=== PATIENT | male | born 1965 | race Two or more races ===

== ENCOUNTER 2020-05-13 13:41 | Emergency (ER) | payer MEDICAID, SELFPAY ==
[2020-05-13 14:25] VITALS: BP 127/75; BP 127/82; PULSE 73; PULSE 75; RESP 18; TEMP 37.2; O2SAT 97; BMI 22.4
--- NOTE | 2020-05-13 15:06 | ECG_ITS ---
Test Reason : CHEST PAIN, SHORTNESS OF BREATH Blood Pressure : / mmHG Vent. Rate : 063 BPM Atrial Rate : 063 BPM P-R Int : 152 ms QRS Dur : 096 ms QT Int : 392 ms P-R-T Axes : 078 051 076 degrees QTc Int : 401 ms Normal sinus rhythm with sinus arrhythmia Incomplete right bundle branch block Borderline ECG When compared with ECG of 13-MAR-2020 13:52, Vent. rate has decreased BY 35 BPM Referred By: Andra Bowie Electronically Signed By:JIE MCDANIELS MD
--- NOTE | 2020-05-13 15:07 | XR_ITS ---
EXAMINATION: XR CHEST CLINICAL INFORMATION: Chest pain. SOB COMPARISON: Chest 11/17/2019 TECHNIQUE: Frontal view of the chest was obtained. FINDINGS: No significant abnormality is noted involving the heart, lungs, mediastinum, bony thorax or soft tissues. XR/XR chest 1V IMPRESSION: Unremarkable chest examination.
[2020-05-13] MEDS: Acetaminophen 325 MG TABLET 650 MG PO (15:47)
[2020-05-13] MEDS: Ketorolac Tromethamine 15 MG/ML VIAL IVPUSH (15:48)
[2020-05-13] MEDS: ondansetron HCL 4 MG/2 ML VIAL IVPUSH (15:48)
--- NOTE | 2020-05-13 15:54 | ED.GENADULT ---
HPI - General Adult General Chief complaint: General Medical Stated complaint: flu like symptoms Time Seen by Provider: 05/13/20 14:39 Source: patient Mode of arrival: ambulatory History of Present Illness HPI narrative: 55-year-old male with a past medical history of anxiety, asthma, depression presenting to ED complaining of subjective fever, chills, sore throat, dry cough, mild SOB, chest discomfort, diffuse myalgias, and nausea since yesterday. Reports multiple sick contacts where he lives. Denies recent travel, history of clots, LE edema Related Data Allergies Allergy/AdvReac Type Severity Reaction Status Date / Time penicillin V Allergy Unknown rash Verified 12/20/19 00:00 ibuprofen Allergy Stomach Verified 05/13/20 14:24 Upset Review of Systems Review of Systems: Constitutional: No Weight loss, +subj Fever, + Chills ENT/Mouth: No Ear Pain, + Nasal Congestion, No Sinus Pain, No Hoarseness, +sore throat, +Rhinorrhea, No Swallowing Difficulty Cardiovascular: + Chest Pain, + SOB Respiratory: + Cough, No Sputum, No Wheezing Gastrointestinal: + Nausea, No Vomiting, No Diarrhea, No Constipation, No Abdominal pain Skin: No Skin Lesions, No rash Yes all other systems are reviewed and are negative PMFSH Past Medical History Attestation statement: The following information was validated with the patient. Medical History (Updated 05/13/20 @ 16:01 by SANTOSH England) Anxiety Asthma Depression Surgical History (Updated 05/13/20 @ 14:29 by Karina Moreno) Hx of cholecystectomy Social History Social History Alcohol intake: never Smoking Status: Current every day smoker Smoked in Last 30 Days: Yes Use of substances other than those prescribed or required for medical reasons: Yes Substance Use Type: Crack/Cocaine and Marijuana Substance Use Frequency: Occasionally Advance Directives: No Advance Directives Information Provided: Yes Physical Exam Vital Signs: Vital Signs: Vital Signs Temp Pulse Resp BP Pulse Ox 05/13/20 14:25 99.0 F 73 18 127/75 97 Body Mass Index 22.4 Const: General: cooperative and healthy appearing Orientation/consciousness: patient oriented x3 Limitations: no limitations HENMT: Head: Yes normal to inspection Ears: hearing grossly normal bilaterally General nose exam: Normal external nose present Face and sinus: Yes normal facial exam Eyes: General: appearance normal, both eyes and all related structures EOM: EOMs intact bilaterally Neck: Neck: Yes normal visual inspection Resp: Effort & Inspection: normal respiratory effort Auscultation: no rhonchi and diminished lung sounds diffuse Cardio: Rate: regular rate Heart sounds: S1 normal heart sound present and S2 normal heart sound present GI: Inspection: Yes normal to inspection Palpation (GI): Soft to palpation, nontender, no guarding and not rigid Skin: Rashes: no rashes Wounds: no wounds Neuro: General: patient oriented x3 Gait exam (Neuro): Normal gait present Extrem: General: Yes normal to inspection Course Course Course Narrative: - CXR unremarkable -1600-- ED care transferred to [facility] pending labs Medical Decision Making MDM Narrative Medical decision making narrative: 55-year-old male with a past medical history of anxiety, asthma, depression presenting to ED complaining of subjective fever, chills, sore throat, dry cough, mild SOB, chest discomfort, diffuse myalgias, and nausea since yesterday. On exam low-grade temp 99?, NAD/ nontoxic-appearing, decreased lung sounds throughout. plan: labs, CXR, COVID-19, reassess, anticipate DC home Discharge Plan Discharge Clinical Impression: Viral syndrome Patient Disposition: Home, Self-Care
[2020-05-13 16:23] LABS: MANUAL DIFF FLAG NO
[2020-05-13 16:28] LABS: Basophils Percent Auto 0.7 % (0-2); Eosinophils Absolute Auto 0.2 X10*3/uL (0.0-0.4); Eosinophils Percent Auto 4.2 % (0-4); Hematocrit 36.5 % (42-52); Hemoglobin 12.1 g/dl (14.0-18.0); Lymphocytes Absolute Auto 2.5 X10*3/uL (1.2-4.9); Mean Corpuscular HGB Conc 33.2 g/dl (31.0-36.0); Mean Corpuscular Hemoglobin 30.6 pg (27.0-33.0); Mean Corpuscular Volume 92.2 fL (80-98); Mean Platelet Volume 8.9 fL (9.4-12.4); Monocytes Absolute Auto 0.4 X10*3/uL (0.1-1.2); Monocytes Percent Auto 7.3 % (2-11); Neutrophils Absolute Auto 2.4 X10*3/uL (2.0-8.3); Neutrophils Percent Auto 42.8 % (45-73); Platelet Count 330 X10*3/uL (160-400); Red Blood Count 3.96 X10*6/uL (4.60-5.80); Red Cell Distribution Width 13.5 % (11.0-16.0); White Blood Count 5.5 X10*3/uL (4.8-10.8)
[2020-05-13 16:53] VITALS: BP 128/76; PULSE 71; RESP 18; TEMP 36.8; O2SAT 97
--- NOTE | 2020-05-13 16:54 | ED_ITS ---
HPI - URI/Sore Throat General Chief Complaint: General Medical Stated Complaint: flu like symptoms Time Seen by Provider: 05/13/20 14:39 Source: patient Mode of arrival: ambulatory History of Present Illness HPI Narrative: taking over for Andra Yancey PA-C Related Data Allergies Allergy/AdvReac Type Severity Reaction Status Date / Time penicillin V Allergy Unknown rash Verified 12/20/19 00:00 ibuprofen Allergy Stomach Verified 05/13/20 14:24 Upset PMFSH Past Medical History Medical History (Updated 05/13/20 @ 16:01 by SANTOSH England) Anxiety Asthma Depression Surgical History (Updated 05/13/20 @ 14:29 by Karina Moreno) Hx of cholecystectomy Social History Social History Alcohol intake: never Smoking Status: Current every day smoker Smoked in Last 30 Days: Yes Use of substances other than those prescribed or required for medical reasons: Yes Substance Use Type: Crack/Cocaine and Marijuana Substance Use Frequency: Occasionally Advance Directives: No Advance Directives Information Provided: Yes Physical Exam Vital Signs: Vital Signs: Vital Signs Temp Pulse Resp BP Pulse Ox 05/13/20 16:53 98.3 F 71 18 128/76 97 05/13/20 14:25 99.0 F 73 18 127/75 97 Body Mass Index 22.4 Course Course Course Narrative: Medical decision making narrative: 55-year-old male with a past medical history of anxiety, asthma, depression presenting to ED complaining of subjective fever, chills, sore throat, dry cough, mild SOB, chest discomfort, diffuse myalgias, and nausea since yesterday. On exam low-grade temp 99?, NAD/ nontoxic-appearing, decreased lung sounds throughout. plan: labs, CXR, COVID-19, reassess, anticipate DC home. 5pm no leukocytosis, negative D-dimer, labs unremarkable. Patient is asking for pain medication for his knees which is not the reason he is here and I did not do an exam on his knees so I declined his request and advised he go to his PCP. Will discharge home with lamar. MDM - URI/Sore Throat Lab Data Attestation: I reviewed the patient's lab results. Result diagrams: 05/13/20 16:19 05/13/20 16:19 Labs: Lab Results 05/13/20 Range/Units 16:19 WBC 5.5 (4.8-10.8) X10*3/uL RBC 3.96 L (4.60-5.80) X10*6/uL Hgb 12.1 L (14.0-18.0) g/dl Hct 36.5 L (42-52) % MCV 92.2 (80-98) fL MCH 30.6 (27.0-33.0) pg MCHC 33.2 (31.0-36.0) g/dl RDW 13.5 (11.0-16.0) % Plt Count 330 (160-400) X10*3/uL MPV 8.9 L (9.4-12.4) fL Immature Gran % (Auto) 0.0 (0.0-0.4) % Neut % (Auto) 42.8 L (45-73) % Lymph % (Auto) 45.0 H (20-40) % [place] % (Auto) 7.3 (2-11) % Eos % (Auto) 4.2 H (0-4) % Baso % (Auto) 0.7 (0-2) % Lymph # (Auto) 2.5 (1.2-4.9) X10*3/uL [place] # (Auto) 0.4 (0.1-1.2) X10*3/uL Eos # (Auto) 0.2 (0.0-0.4) X10*3/uL Baso # (Auto) 0.0 (0.0-0.2) X10*3/uL Abs Immat Gran (auto) 0.00 (0.00-0.03) X10*3/uL Absolute Neuts (auto) 2.4 (2.0-8.3) X10*3/uL Absolute Nucleated RBC 0.000 (0.0-0.012) X10*3/uL Nucleated RBC % (auto) 0.0 (0.0-0.2) /100WBC Discharge Plan Discharge Clinical Impression: Viral syndrome Patient Disposition: Home, Self-Care Instructions: Viral Syndrome (ED)
[2020-05-13 16:56] LABS: Magnesium 2.2 mg/dL (1.6-2.6)
[2020-05-13 16:58] LABS: Lactate Dehydrogenase 136 U/L (118-273)
[2020-05-13 16:59] LABS: Alanine Aminotransferase 11 U/L (0-40); Albumin Level 4.1 g/dL (3.5-5.0); Alkaline Phosphatase 69 U/L (39-117); Anion Gap 11 (12-20); Aspartate Amino Transferase 18 U/L (5-37); Bilirubin Direct 0.2 mg/dL (0.0-0.5); Bilirubin Total 0.4 mg/dL (0.0-1.0); Blood Urea Nitrogen 9 mg/dL (9-16); Calcium 8.8 mg/dL (8.4-10.2); Carbon Dioxide 27 mmol/L (22-29); Chloride 104 mmol/L (96-108); Creatinine Clr Calc Pharmacy 74.1; Estimated Glomerular Filt Rate > 60; Glucose Random 82 mg/dL (60-115); Potassium 4.1 mmol/l (3.3-5.1); Sodium 138 mmol/L (135-145); Total Protein 6.9 g/dL (6.5-8.0)
[2020-05-13 17:01] LABS: B Type Natriuretic Peptide 16 pg/mL (<100); Troponin-I High Sensitivity < 3.5 ng/L (<3.5-35.0)
[2020-05-13 17:19] LABS: Ferritin 70 ng/mL (20-250)
[2020-05-13 18:19] LABS: Procalcitonin < 0.02 ng/mL
== END 2020-05-13 17:23 | disposition home or self-care (01) ==
PROVIDERS: Physician Assistant; Emergency Provider Emergency Medicine; PCP Internal Medicine
DX: B34.9 Viral infection, unspecified (principal); R50.9 Fever, unspecified; Z20.828 Contact with and (suspected) exposure to other viral communicable diseases; Z79.899 Other long term (current) drug therapy
CPT/HCPCS: 36415; 71045; 80048; 80076; 82728; 83615; 83735; 83880; 84145; 84484; 85025; 87635; 93005; 96374; 96375; 99284; J1885; J2405

== ENCOUNTER 2021-01-06 13:07 | Outpatient (REF) | payer MEDICAID, SELFPAY ==
--- NOTE | ~2021-01-06 | CT_ITS ---
EXAMINATION: CT HEAD WITHOUT CONTRAST CLINICAL INFORMATION: Headache COMPARISON: None TECHNIQUE: Contiguous axial imaging was performed from the skull base to vertex without intravenous administration of contrast. This CT examination was performed using dose optimization techniques as appropriate, variously including the following: *Automated exposure control *Adjustment of mA and/or kV according to patient size (this includes techniques or standardized protocols for targeted exams where dose is matched to indication/reason for exam; i.e. extremities or head) *Use of iterative reconstruction technique DLP: 657 mGy-cm FINDINGS: There is no evidence of acute intracranial hemorrhage or territorial infarction. No abnormal mass effect or midline shift is seen. Hood to white matter differentiation is well preserved. No extra-axial fluid collections are identified. The ventricles are normal in size. There is no abnormal attenuation within the brain parenchyma. The osseous structures and soft tissues are normal. The mastoid air cells and visualized portions of the paranasal sinuses are well aerated except for a small polyp or retention cyst bilateral sphenoid and right posterior ethmoid sinuses. CT/CT head/brain wo con IMPRESSION: 1. No acute intracranial process seen. 2. Small polyp or retention cyst, bilateral sphenoid and right posterior ethmoid sinuses.
== END 2021-01-06 13:08 | disposition home or self-care (01) ==
LOC: HO.CT 13:07
PROVIDERS: Visit Provider Internal Medicine
DX: R51.9 Headache, unspecified (principal)
CPT/HCPCS: 70450

== ENCOUNTER 2021-04-21 14:51 | Emergency (ER) | payer MEDICAID, SELFPAY ==
--- NOTE | ~2021-04-21 | XR_ITS ---
EXAMINATION: XR CHEST CLINICAL INFORMATION: Chest pain COMPARISON: Chest radiographs 05/13/2020, 11/17/2019, CT chest 06/12/2019 TECHNIQUE: 2 frontal views of the chest are obtained. FINDINGS: There is disc atelectasis right lateral base. The lungs otherwise clear. There is no pneumothorax, pleural reaction, airspace consolidation, or effusion. The heart is normal in size. The hilar contours are normal. There is a small chronic small fat-containing Bochdalek hernia left posterior medial base. No visible acute bony abnormality. Old healed fracture mid right clavicle again seen. XR/XR chest 1V IMPRESSION: 1. Short linear disc atelectasis right lateral base. Lungs otherwise clear. No pneumothorax. 2. Small chronic fat-containing Bochdalek hernia left posterior medial base similar to CT 2019.
[2021-04-21 16:15] VITALS: BP 135/78; PULSE 90; RESP 20; TEMP 36.6; O2SAT 98; BMI 26.2
--- NOTE | 2021-04-21 16:19 | ECG_ITS ---
Test Reason : CHEST PAIN Blood Pressure : / mmHG Vent. Rate : 083 BPM Atrial Rate : 083 BPM P-R Int : 152 ms QRS Dur : 104 ms QT Int : 368 ms P-R-T Axes : 077 029 078 degrees QTc Int : 432 ms Normal sinus rhythm Incomplete right bundle branch block Borderline ECG When compared with ECG of 13-MAY-2020 15:32, No significant change was found Referred By: Generic ED Physician Electronically Signed By:HERSON GARZON
[2021-04-21 16:45] LABS: MANUAL DIFF FLAG NO
[2021-04-21 16:46] LABS: Basophils Percent Auto 0.5 % (0-2); Eosinophils Absolute Auto 0.2 X10*3/uL (0.0-0.4); Eosinophils Percent Auto 2.7 % (0-4); Hematocrit 34.7 % (42-52); Hemoglobin 11.6 g/dl (14.0-18.0); Imm Gran Abs Auto 0.03 X10*3/uL (0.00-0.03); Imm Gran Pct Auto 0.4 % (0.0-0.4); Lymphocytes Absolute Auto 1.9 X10*3/uL (1.2-4.9); Lymphocytes Percent Auto 25.4 % (20-40); Mean Corpuscular HGB Conc 33.4 g/dl (31.0-36.0); Mean Corpuscular Hemoglobin 28.9 pg (27.0-33.0); Mean Corpuscular Volume 86.5 fL (80-98); Monocytes Absolute Auto 0.5 X10*3/uL (0.1-1.2); Monocytes Percent Auto 6.2 % (2-11); Neutrophils Absolute Auto 4.8 X10*3/uL (2.0-8.3); Neutrophils Percent Auto 64.8 % (45-73); Platelet Count 321 X10*3/uL (160-400); Red Blood Count 4.01 X10*6/uL (4.60-5.80); Red Cell Distribution Width 14.6 % (11.0-16.0); White Blood Count 7.4 X10*3/uL (4.8-10.8)
[2021-04-21 17:01] LABS: Anion Gap 10 (12-20); Blood Urea Nitrogen 9 mg/dL (9-16); COVID-19 Test Negative (Negative); Carbon Dioxide 25 mmol/L (22-29); Chloride 106 mmol/L (96-108); Creatinine Clr Calc Pharmacy 86.3; Estimated Glomerular Filt Rate > 60; Glucose Random 108 mg/dL (60-115); Potassium 3.8 mmol/L (3.3-5.1); Sodium 137 mmol/L (135-145)
[2021-04-21 17:04] LABS: Troponin-I High Sensitivity < 3.5 ng/L (<3.5-35.0)
[2021-04-21 21:41] VITALS: BP 138/85; PULSE 61; RESP 16; O2SAT 97
--- NOTE | 2021-04-21 22:39 | ED.CHESTPAIN ---
HPI - Chest Pain General Chief Complaint: Chest Pain Stated Complaint: chest pain l arm pain headache Time Seen by Provider: 04/21/21 22:20 Source: patient and family History of Present Illness HPI narrative: 55-year-old male who presents emergency department for evaluation chest pain, left arm pain and headache. Patient states that he has had a headache for 2 days, it has, on gradually. States that the headache is a sharp pain located in the left side of his head. He is also complaining of left shoulder left chest and left arm pain. This pain is also come on gradually over the past 2 days. This pain is a sharp pain which is worse with movement. He states that his headache pain and chest pain is 10/10 at its worst. Patient has had a occasional cough which is nonproductive. He does have COPD and has shortness of breath and dyspnea on exertion which is unchanged from his baseline. The patient denied fever, chills, abdominal pain, nausea, vomiting, myalgias, arthralgias, diarrhea, loss of sense of taste or smell. Patient has been vaccinated against COVID-19. Related Data Previous Rx's Medication Instructions Recorded azithromycin 500 mg tablet See Rx Instructions .ROUTE 05/13/20 .COMPLEX #6 tab metoclopramide HCl 10 mg tablet 10 mg PO Q6H PRN #14 tab 04/21/21 (Reglan) oxycodone 5 mg tablet 5 mg PO Q4H PRN #14 tab 04/21/21 Allergies Allergy/AdvReac Type Severity Reaction Status Date / Time penicillin V Allergy Unknown rash Verified 12/20/19 00:00 ibuprofen Allergy Stomach Verified 05/13/20 14:24 Upset Review of Systems Review of Systems: Yes all other systems are reviewed and are negative [facility] Past Medical History [facility] Narrative: Past medical history: Asthma, COPD, depression, anxiety, osteoarthritis, migraines. Surgical history: Appendectomy, cholecystectomy. Social history: Patient denies drug use. He does smoke cigarettes times 14 years less than 1 pack. He denies alcohol use. He is he is here with his Medical History Anxiety Asthma Depression Surgical History Hx of cholecystectomy Social History Social History Alcohol intake: never Substance Use Type: Crack/Cocaine and Marijuana Advance Directives: No Advance Directives Information Provided: No Physical Exam Vital Signs: Vital Signs: Last Vital Signs Temp 97.9 F 04/21/21 16:15 Pulse 61 04/21/21 21:41 Resp 16 04/21/21 21:41 BP 138/85 04/21/21 21:41 Pulse Ox 97 04/21/21 21:41 Body Mass Index 26.2 Const: General: cooperative and no acute distress Orientation/consciousness: oriented to person and oriented to place Limitations: no limitations HENMT: Head: Yes normal to inspection, Yes normocephalic and Yes atraumatic Ears: external ears normal General nose exam: Normal external nose present Face and sinus: Yes normal facial exam Mouth: Normal oral and palatal mucosa present Throat: Yes posterior oropharynx normal Eyes: General: appearance normal, both eyes and all related structures Pupils: Equal, round and reactive pupils present Neck: Neck: Yes normal visual inspection, Yes no lymphadenopathy, Yes trachea midline and Yes supple Chest: Chest palpation & inspection: normal inspection of the chest and tenderness (Moderate to severe left anterior chest wall tenderness) Resp: Effort & Inspection: normal respiratory effort and able to speak in complete sentences Auscultation: clear to auscultation bilaterally Cardio: Rate: regular rate Rhythm: regular rhythm Heart sounds: S1 normal heart sound present, S2 normal heart sound present and no murmurs GI: Inspection: Yes normal to inspection Palpation (GI): Soft to palpation, nontender and no guarding Auscultation: normal bowel sounds : General: Yes no CVA tenderness Back/Spine/Pelvis: Back: no CVA tenderness Skin: General skin exam: no rashes or lesions noted Neuro: General: oriented to person and oriented to place Cranial nerves: Yes CN's II-XII intact bilaterally and Yes Equal, round and reactive pupils present Cognition (Neuro): normal cognition Motor exam (neuro): 5/5 motor strength present throughout Extrem: Other: Significant pain with range of motion of the left shoulder both passive and active. General: Yes normal to inspection Psych: Appearance: grossly normal Speech and movement: Normal speech and movement present Affect: normal affect Attitude: cooperative Thought process: Normal thought process present Thought content: Normal thought content present Course Course Course Narrative: 55-year-old male who presents emergency department for evaluation of chest pain, left arm pain and headache x2 days. Physical examination did reveal significant tenderness palpation of his left anterior chest wall and pain with passive and active range of motion of his left shoulder. Exam was otherwise unremarkable. Patient's laboratory evaluation revealed mild anemia with an H&H of 11.6 and 34.7. Troponin was below detectable limits. Twelve EKG revealed no evidence of ischemia or myocardial infarction. The patient's pain was treated with Reglan and 10 mg IV, Toradol 30 mg IV and Benadryl 50 mg IV with some improved his pain. The patient was also given oxycodone 10 mg orally. The patient will be discharged home. He was advised to take the following regimen of medications for his headache and chest pain: Reglan 10 mg orally, Benadryl 50 mg orally and extra-strength Tylenol 975 mg orally. For pain not relieved by these medications also advised to take oxycodone 5 mg every 4 hours as needed for pain. MDM - Chest Pain Lab Data Result diagrams: 04/21/21 16:26 04/21/21 16:26 Labs: Lab Results 04/21/21 04/21/21 04/21/21 Range/Units 16:26 16:26 16:26 WBC 7.4 (4.8-10.8) X10*3/uL RBC 4.01 L (4.60-5.80) X10*6/uL Hgb 11.6 L (14.0-18.0) g/dl Hct 34.7 L (42-52) % MCV 86.5 (80-98) fL MCH 28.9 (27.0-33.0) pg MCHC 33.4 (31.0-36.0) g/dl RDW 14.6 (11.0-16.0) % Plt Count 321 (160-400) X10*3/uL MPV 9.0 L (9.4-12.4) fL Immature Gran % (Auto) 0.4 (0.0-0.4) % Neut % (Auto) 64.8 (45-73) % Lymph % (Auto) 25.4 (20-40) % [place] % (Auto) 6.2 (2-11) % Eos % (Auto) 2.7 (0-4) % Baso % (Auto) 0.5 (0-2) % Lymph # (Auto) 1.9 (1.2-4.9) X10*3/uL [place] # (Auto) 0.5 (0.1-1.2) X10*3/uL Eos # (Auto) 0.2 (0.0-0.4) X10*3/uL Baso # (Auto) 0.0 (0.0-0.2) X10*3/uL Abs Immat Gran (auto) 0.03 (0.00-0.03) X10*3/uL Absolute Neuts (auto) 4.8 (2.0-8.3) X10*3/uL Absolute Nucleated RBC 0.000 (0.0-0.012) X10*3/uL Nucleated RBC % (auto) 0.0 (0.0-0.2) /100WBC Sodium 137 (135-145) mmol/L Potassium 3.8 (3.3-5.1) mmol/L Chloride 106 (96-108) mmol/L Carbon Dioxide 25 (22-29) mmol/L Anion Gap 10 L (12-20) BUN 9 (9-16) mg/dL Creatinine 0.79 (0.5-1.4) mg/dL Estim Creat Clear Calc 86.3 Estimated GFR > 60 Random Glucose 108 (60-115) mg/dL Calcium 9.0 (8.4-10.2) mg/dL Troponin I High Sens < 3.5 (<3.5-35.0) ng/L COVID-19 ([facility]) (Negative) COVID-19 Clin Com 04/21/21 Range/Units 16:26 WBC (4.8-10.8) X10*3/uL RBC (4.60-5.80) X10*6/uL Hgb (14.0-18.0) g/dl Hct (42-52) % MCV (80-98) fL MCH (27.0-33.0) pg MCHC (31.0-36.0) g/dl RDW (11.0-16.0) % Plt Count (160-400) X10*3/uL MPV (9.4-12.4) fL Immature Gran % (Auto) (0.0-0.4) % Neut % (Auto) (45-73) % Lymph % (Auto) (20-40) % [place] % (Auto) (2-11) % Eos % (Auto) (0-4) % Baso % (Auto) (0-2) % Lymph # (Auto) (1.2-4.9) X10*3/uL [place] # (Auto) (0.1-1.2) X10*3/uL Eos # (Auto) (0.0-0.4) X10*3/uL Baso # (Auto) (0.0-0.2) X10*3/uL Abs Immat Gran (auto) (0.00-0.03) X10*3/uL Absolute Neuts (auto) (2.0-8.3) X10*3/uL Absolute Nucleated RBC (0.0-0.012) X10*3/uL Nucleated RBC % (auto) (0.0-0.2) /100WBC Sodium (135-145) mmol/L Potassium (3.3-5.1) mmol/L Chloride (96-108) mmol/L Carbon Dioxide (22-29) mmol/L Anion Gap (12-20) BUN (9-16) mg/dL Creatinine (0.5-1.4) mg/dL Estim Creat Clear Calc Estimated GFR Random Glucose (60-115) mg/dL Calcium (8.4-10.2) mg/dL Troponin I High Sens (<3.5-35.0) ng/L COVID-19 ([facility]) Negative (Negative) COVID-19 Clin Com See Note Discharge Plan Discharge Clinical Impression: Acute costochondritis, Acute pain of left shoulder Headache Qualifiers: Headache type: unspecified Headache chronicity pattern: acute headache Intractability: not intractable Qualified Code(s): R51.9 - Headache, unspecified Patient Disposition: Home, Self-Care Instructions: Costochondritis (ED), Acute Headache (ED) Additional Instructions: Your laboratory evaluation revealed mild anemia with an H&H of 11.6 and 34.7, this is chronic and does not need treatment at this time. The rest of your blood work was normal. Your COVID-19 test was negative. Your exam did reveal significant tenderness with palpation of your chest and left shoulder with increased pain with movement of your left shoulder. I think that these symptoms are caused by inflammation of your chest in your shoulder. Take the following medications together every 6 hours as needed for headache, chest and shoulder pain: Reglan 10 mg orally, Benadryl 50 mg orally and extra-strength Tylenol 1000 mg. If your pain is not relieved by these medications you can also take oxycodone 5 mg every 4 hours as needed for pain. Oxycodone is a narcotic medication and can be addicting, if your concerned about addiction do not get this medication filled or ask the pharmacist for less pills than prescribed. This pain will make you sleepy, constipated and sometimes confused. Follow-up with your doctor in 2 days. Please return to the emergency department if your symptoms get worse or if you develop any symptoms that are concerning to you. Prescriptions: New metoclopramide HCl [Reglan] 10 mg tablet 10 mg PO Q6H PRN (Reason: nausea and vomiting) Qty: 14 RF: 0 oxycodone 5 mg tablet 5 mg PO Q4H PRN (Reason: pain) Qty: 14 RF: 0 No Action azithromycin 500 mg tablet See Rx Instructions .ROUTE .COMPLEX Qty: 6 RF: 0
[2021-04-21] MEDS: Ketorolac Tromethamine 15 MG/ML VIAL 30 MG IVPUSH (22:50)
[2021-04-21] MEDS: 0.9 % Sodium Chloride 1,000 ML 999 ML IV (22:50)
[2021-04-21] MEDS: diphenhydrAMINE HCL 50 MG/ML VIAL IVPUSH (22:51)
[2021-04-21] MEDS: Metoclopramide HCl 10 MG/2 ML VIAL IVPUSH (22:51)
[2021-04-21] MEDS: oxyCODONE HCl Immed Release 5 MG TABLET 10 MG PO (23:50)
[2021-04-21 23:54] VITALS: RESP 20
== END 2021-04-21 23:55 | disposition home or self-care (01) ==
PROVIDERS: Emergency Provider Emergency Medicine Emergency Medical Services; PCP Internal Medicine
DX: M94.0 Chondrocostal junction syndrome [Tietze] (principal); M25.512 Pain in left shoulder; R51.9 Headache, unspecified; J44.9 Chronic obstructive pulmonary disease, unspecified; F17.210 Nicotine dependence, cigarettes, uncomplicated; Z20.822 Contact with and (suspected) exposure to COVID-19
CPT/HCPCS: 36415; 71045; 80048; 84484; 85025; 87635; 93005; 96361; 96374; 96375; 99284; 99285; J1200; J1885; J2765

== ENCOUNTER 2021-05-14 14:49 | Emergency (ER) | payer MEDICAID, SELFPAY ==
--- NOTE | ~2021-05-14 | XR_ITS ---
EXAMINATION: XR CHEST CLINICAL INFORMATION: Shortness of breath COMPARISON: Previous chest x-ray most recent 04/21/2021 TECHNIQUE: Frontal view of the chest was obtained. FINDINGS: The cardiac and mediastinal contours are normal. The lungs are clear. There is no pleural effusion or pneumothorax. There is an old healed right clavicle fracture. Bony structures are otherwise unremarkable. XR/XR chest 1V IMPRESSION: No evidence for acute disease in the chest.
--- NOTE | 2021-05-14 15:05 | ED_ITS ---
HPI - General Adult General Chief complaint: General Medical Stated complaint: headache, sob, nausea Time Seen by Provider: 05/14/21 14:58 Source: patient Mode of arrival: EMS Limitations: no limitations History of Present Illness HPI narrative: 55-year-old male with a past medical history of anxiety, asthma, depression, COPD presents to the emergency department with a meadley of complaints including abdominal pain, malaise, CP, SOB, Cough, headache X 3 days progressively worsening. He says his main 2 complaints are his chest pain, and headache. He states that his abdominal pain is worsened epigastric region, and has been progressively getting worse. He states his chest pain is substernal, intermittent, described as a stabbing sensation, 10/10 pain, free of radiation. He also states he has been having increased shortness of breath, nonproductive cough. He also reports subjective fevers at home. He also complains of a headache localized to the back of his head. He denies nausea, vomiting, diarrhea, constipation, changes in vision, back pain, changes in bowel habits and urination. He is vaccinated against COVID-19. He is a current daily smoker, he smokes 4 cigarettes a day, and has been smoking for years. Onset (ago): day(s) (3) Location: chest Radiation: non-radiation Severity: severe Severity scale (1-10): 10 Quality: stabbing Pain Consistency: intermittent Relieving factors: none Exacerbating factors: none Associated symptoms: chest pain, cough, fever/chills, malaise, shortness of breath and weakness Treatments prior to arrival: none Related Data Previous Rx's Medication Instructions Recorded azithromycin 500 mg tablet See Rx Instructions .ROUTE 05/13/20 .COMPLEX #6 tab metoclopramide HCl 10 mg tablet 10 mg PO Q6H PRN #14 tab 04/21/21 (Reglan) oxycodone 5 mg tablet 5 mg PO Q4H PRN #14 tab 04/21/21 Allergies Allergy/AdvReac Type Severity Reaction Status Date / Time ibuprofen Allergy Intermediate Stomach Verified 05/14/21 15:14 Upset penicillin V Allergy Intermediate rash Verified 05/14/21 15:14 Review of Systems Review of Systems: Yes all other systems are reviewed and are negative Constitutional: Constitutional: Reports no additional constitutional complain ts, Reports body ache(s), Reports chills, Reports fever(s) (subjective), Reports headache(s) and Reports weakness Eyes: Eyes: Reports no additional eye complaints and Denies change in vision ENT: Reports system reviewed and no additional complaints, except as documented, Denies dizziness, Reports headache(s), Denies nasal congestion, Denies nasal discharge and Denies neck pain Cardiovascular: Cardiovascular: Reports no additional cardiovascular complaints, Reports chest pain, Denies leg edema, Reports dyspnea, Reports dyspnea on exertion and Reports orthopnea Respiratory: Respiratory: Reports no additional respiratory complaints, Reports cough, Reports dyspnea and Reports dyspnea on exertion Gastrointestinal: Gastrointestinal: Reports no additional gastrointestinal complaints, Denies abdominal pain, Denies diarrhea, Denies nausea and Denies v omiting Genitourinary: Genitourinary: Denies urinary incontinence Musculoskeletal: Musculoskeletal: Reports no additional musculoskeletal complaints, Denies back pain, Denies arthralgias, Denies joint swelling, Denies neck pain, Denies numbness and Denies tingling Integumentary/Breasts: Skin/Breast: Reports system reviewed and no additional complaints, except as docu and Denies rash Neurologic: Reports system reviewed and no additional complaints, except as documented, Denies Abnormal speech present, Denies dizziness, Reports headache(s), Denies numbness, Denies tingling and Reports weakness PMFSH Past Medical History Attestation statement: The following information was validated with the patient. Source: old records reviewed and nursing notes reviewed Medical History Anxiety Asthma Depression Emphysema of lung Surgical History Hx of cholecystectomy Social History Social History Alcohol intake: never Patient Tobacco Use Status: Current someday Tobacco user Use of substances other than those prescribed or required for medical reasons: No Substance Use Type: Crack/Cocaine and Marijuana Advance Directives: No Advance Directives Information Provided: Yes Physical Exam Vital Signs: Vital Signs: Last Vital Signs Temp 97.7 F 05/14/21 15:14 Pulse 88 05/14/21 16:06 Resp 18 05/14/21 15:14 BP 141/87 H 05/14/21 15:14 Pulse Ox 95 05/14/21 15:14 Body Mass Index 28.4 Const: General: cooperative, healthy appearing, comfortable and no acute distress Orientation/consciousness: patient oriented x3 Limitations: no limitations HENMT: Head: Yes normal to inspection Ears: hearing grossly normal bilaterally General nose exam: Normal external nose present Face and sinus: Yes normal facial exam Mouth: Normal oral and palatal mucosa present Throat: Yes posterior oropharynx normal Eyes: General: appearance normal, both eyes and all related structures Visual Grant: normal visual grant by confrontation Pupils: Equal, round and reactive pupils present EOM: EOMs intact bilaterally Neck: Neck: Yes normal visual inspection Chest: Chest palpation & inspection: normal inspection of the chest Resp: Effort & Inspection: normal respiratory effort Auscultation: wheezes Cardio: Rate: regular rate Rhythm: regular rhythm Peripheral pulses: Peripheral pulses 2+ throughout GI: Inspection: Yes normal to inspection Palpation (GI): Soft to palpation and nontender Auscultation: normal bowel sounds Back/Spine/Pelvis: Thoracic/Lumbar Spine: thoracic and lumbar spine normal to inspection Skin: General skin exam: no rashes or lesions noted Neuro: General: patient oriented x3, no focal motor deficits and normal sensation to monofilament Cranial nerves: Yes Equal, round and reactive pupils present Cognition (Neuro): normal cognition Speech: No Abnormal speech present Gait exam (Neuro): Normal gait present Motor exam (neuro): 5/5 motor strength present throughout Coordination: [id number]-hd-[id number] test normal and lakx-qh-adly test normal Extrem: General: Yes normal to inspection, Yes no pedal edema and Yes no calf tenderness Course Reevaluation(s) Reevaluation #1: Laboratory study show no acute infection, baseline anemia is noted. No electrolyte abnormalities. Trop <3.5. COVID negative. EKG no acute ischemia and no significant changes when compared to previous EKG. Less likely ACS with atypical chest pain, symptoms >3 days, negative troponin and normal EKG Less likely PE with PERC score 1 for age Time: 17:35 Reevaluation #2: Improvement after albuterol. Patient is stating he is still having an occipital headache, toradol will be given at this time. Still no focal neuro deficits. Time: 17:21 Reevaluation #3: At this time patient states that his headache is still present, however is improved after administration of Toradol. Labs show no acute infection, EKG shows no ischemia, no changes will from previous. Troponin is negative. Due to patient's symptoms this is likely an upper viral respiratory infection and/or bronchitis. Patient will be sent home with an inhaler which malika szymanski has been educated use. He has been told to take 2 puffs every 4-6 hours as needed. He has also been advised to follow-up with his primary care provider. He has been told to take ibuprofen/Tylenol for pain as needed. He is safe for discharge home with PCP follow-up. Time: 17:36 Medical Decision Making MDM Narrative Medical decision making narrative: [id number] 56-year-old male pmhx significant for anxiety, asthma, depression, COPD, current daily smoker he presents to the emergency department with subjective fevers, occipital headache without vision changes or weakness, abdominal pain in the epigastric region, chest pain, malaise, fatigue, cough and shortness of breath x 3 days progressively worsening Upon physical examination patient is resting comfortably on stretcher, and in no acute distress. Extraocular movements intact bilaterally, pain free and free of nystagmus. Normal [id number], wakm-if-goei. No focal neuro deficits. Upon auscultation wheezing is appreciated over all lung grant. S1-S2 are appreciated free of murmurs. No tenderness to palpation over the epigastric region. Patient has 5/5 strength upper and lower extremities. Plan at this time is to obtain basic labs, liver, magnesium, troponin, EKG, chest x-ray, COVID now. He will also be given albuterol for his wheezing. To note, patient this is not the 1st time that patient presents to the emergency department with complaints of headache, on 01/06/2021 he presented with similar symptoms, imaging of the head was done his CT showed no acute intracranial processes. He states that this headache is similar to previous headaches, for this reason as CT of the head will not be done at this time. There are no red flag symptoms. This headache was gradual in onset, there were no focal neurologic deficits on exam. Unlikely ICH, bleed due to physical & history. Lab Data Result diagrams: 05/14/21 16:49 05/14/21 16:49 Labs: Lab Results 05/14/21 05/14/21 05/14/21 Range/Units 16:49 16:49 16:49 WBC 7.5 (4.8-10.8) X10*3/uL RBC 4.22 L (4.60-5.80) X10*6/uL Hgb 12.2 L (14.0-18.0) g/dl Hct 37.2 L (42-52) % MCV 88.2 (80-98) fL MCH 28.9 (27.0-33.0) pg MCHC 32.8 (31.0-36.0) g/dl RDW 15.3 (11.0-16.0) % Plt Count 372 (160-400) X10*3/uL MPV 8.6 L (9.4-12.4) fL Immature Gran % (Auto) 0.5 H (0.0-0.4) % Neut % (Auto) 78.9 H (45-73) % Lymph % (Auto) 14.6 L (20-40) % [place] % (Auto) 3.1 (2-11) % Eos % (Auto) 2.5 (0-4) % Baso % (Auto) 0.4 (0-2) % Lymph # (Auto) 1.1 L (1.2-4.9) X10*3/uL [place] # (Auto) 0.2 (0.1-1.2) X10*3/uL Eos # (Auto) 0.2 (0.0-0.4) X10*3/uL Baso # (Auto) 0.0 (0.0-0.2) X10*3/uL Abs Immat Gran (auto) 0.04 H (0.00-0.03) X10*3/uL Absolute Neuts (auto) 5.9 (2.0-8.3) X10*3/uL Absolute Nucleated RBC 0.000 (0.0-0.012) X10*3/uL Nucleated RBC % (auto) 0.0 (0.0-0.2) /100WBC Sodium 139 (135-145) mmol/L Potassium 4.7 D (3.3-5.1) mmol/L Chloride 105 (96-108) mmol/L Carbon Dioxide 28 (22-29) mmol/L Anion Gap 11 L (12-20) BUN 15 D (9-16) mg/dL Creatinine 0.76 (0.5-1.4) mg/dL Estim Creat Clear Calc 98.3 Estimated GFR > 60 Random Glucose 107 (60-115) mg/dL Calcium 9.1 (8.4-10.2) mg/dL Magnesium 2.2 (1.6-2.6) mg/dL Total Bilirubin 0.3 (0.0-1.0) mg/dL Direct Bilirubin < 0.2 (0.0-0.5) mg/dL AST 25 (5-37) U/L ALT 27 (0-40) U/L Alkaline Phosphatase 98 D (39-117) U/L Troponin I High Sens < 3.5 (<3.5-35.0) ng/L Total Protein 7.2 (6.5-8.0) g/dL Albumin 4.1 (3.5-5.0) g/dL COVID-19 ([facility]) (Negative) COVID-19 Clin Com 05/14/21 Range/Units 16:49 WBC (4.8-10.8) X10*3/uL RBC (4.60-5.80) X10*6/uL Hgb (14.0-18.0) g/dl Hct (42-52) % MCV (80-98) fL MCH (27.0-33.0) pg MCHC (31.0-36.0) g/dl RDW (11.0-16.0) % Plt Count (160-400) X10*3/uL MPV (9.4-12.4) fL Immature Gran % (Auto) (0.0-0.4) % Neut % (Auto) (45-73) % Lymph % (Auto) (20-40) % [place] % (Auto) (2-11) % Eos % (Auto) (0-4) % Baso % (Auto) (0-2) % Lymph # (Auto) (1.2-4.9) X10*3/uL [place] # (Auto) (0.1-1.2) X10*3/uL Eos # (Auto) (0.0-0.4) X10*3/uL Baso # (Auto) (0.0-0.2) X10*3/uL Abs Immat Gran (auto) (0.00-0.03) X10*3/uL Absolute Neuts (auto) (2.0-8.3) X10*3/uL Absolute Nucleated RBC (0.0-0.012) X10*3/uL Nucleated RBC % (auto) (0.0-0.2) /100WBC Sodium (135-145) mmol/L Potassium (3.3-5.1) mmol/L Chloride (96-108) mmol/L Carbon Dioxide (22-29) mmol/L Anion Gap (12-20) BUN (9-16) mg/dL Creatinine (0.5-1.4) mg/dL Estim Creat Clear Calc Estimated GFR Random Glucose (60-115) mg/dL Calcium (8.4-10.2) mg/dL Magnesium (1.6-2.6) mg/dL Total Bilirubin (0.0-1.0) mg/dL Direct Bilirubin (0.0-0.5) mg/dL AST (5-37) U/L ALT (0-40) U/L Alkaline Phosphatase (39-117) U/L Troponin I High Sens (<3.5-35.0) ng/L Total Protein (6.5-8.0) g/dL Albumin (3.5-5.0) g/dL COVID-19 ([facility]) Negative (Negative) COVID-19 Clin Com See Note Imaging Data Chest x-ray: Attestation: I personally reviewed and interpreted this imaging study as follows: Radiologist's impression: FINDINGS: The cardiac and mediastinal contours are normal. The lungs are clear. There is no pleural effusion or pneumothorax. There is an old healed right clavicle fracture. Bony structures are otherwise unremarkable. XR/XR chest 1V IMPRESSION: No evidence for acute disease in the chest. ECG Data Attestation: I personally reviewed and interpreted this ECG as follows: Prior ECG tracings: available for review Interpretation: Ventricular rate of 85, HI interval normal, normal QRS. Normal QT/QTC. EKG shows normal sinus rhythm, with an incomplete right bundle-branch block. No ST elevations, revisions. No acute changes when compared to EKG from 04/21/2021. No acute ischemia Discharge Plan Discharge Clinical Impression: Bronchitis, Chest pain not due to acute coronary syndrome, Shortness of breath Headache Qualifiers: Headache type: unspecified Headache chronicity pattern: acute headache Intractability: not intractable Qualified Code(s): R51.9 - Headache, unspecified Abdominal pain Qualifiers: Abdominal location: epigastric Qualified Code(s): R10.13 - Epigastric pain Patient Disposition: Home, Self-Care Instructions: Acute Bronchitis (ED) Additional Instructions: Your laboratory studies show no acute infection, no electrolyte abnormalities. Chest x-ray showed no acute disease Today you tested negative for COVID-19. Drink plenty of fluids You can take 2 puffs of your inhaler every 4-6 hours as needed for shortness of breath. Please follow-up with her primary care provider Return to the emergency department with new or worsening symptoms Prescriptions: No Action azithromycin 500 mg tablet See Rx Instructions .ROUTE .COMPLEX Qty: 6 RF: 0 metoclopramide HCl [Reglan] 10 mg tablet 10 mg PO Q6H PRN (Reason: nausea and vomiting) Qty: 14 RF: 0 oxycodone 5 mg tablet 5 mg PO Q4H PRN (Reason: pain) Qty: 14 RF: 0 Referrals: Vince Doran MD [Primary Care Provider] - 2 days
--- NOTE | 2021-05-14 15:06 | ECG_ITS ---
Test Reason : Chest pain Blood Pressure : / mmHG Vent. Rate : 085 BPM Atrial Rate : 085 BPM P-R Int : 152 ms QRS Dur : 106 ms QT Int : 370 ms P-R-T Axes : 075 -03 074 degrees QTc Int : 440 ms Normal sinus rhythm Incomplete right bundle branch block Borderline ECG No significant changes seen Referred By: Talia Cervantes Electronically Signed By:JIE MCDANIELS MD
[2021-05-14 15:10] VITALS: BP 144/91; PULSE 87; O2SAT 96
[2021-05-14 15:14] VITALS: BP 141/87; PULSE 86; RESP 18; TEMP 36.5; O2SAT 95; BMI 28.4
--- NOTE | 2021-05-14 15:21 | PC.NURSE ---
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
[2021-05-14 16:00] VITALS: BP 141/83; PULSE 86; RESP 18; TEMP 36.8; O2SAT 96
[2021-05-14] MEDS: Albuterol Sulfate 90 MCG 8 GM INHALER 4 PUFF INHALE (16:05)
[2021-05-14 16:06] VITALS: PULSE 88; O2SAT 95
[2021-05-14 16:55] LABS: MANUAL DIFF FLAG NO
[2021-05-14 16:57] LABS: Basophils Percent Auto 0.4 % (0-2); Eosinophils Absolute Auto 0.2 X10*3/uL (0.0-0.4); Eosinophils Percent Auto 2.5 % (0-4); Hematocrit 37.2 % (42-52); Hemoglobin 12.2 g/dl (14.0-18.0); Imm Gran Abs Auto 0.04 X10*3/uL (0.00-0.03); Imm Gran Pct Auto 0.5 % (0.0-0.4); Lymphocytes Absolute Auto 1.1 X10*3/uL (1.2-4.9); Lymphocytes Percent Auto 14.6 % (20-40); Mean Corpuscular HGB Conc 32.8 g/dl (31.0-36.0); Mean Corpuscular Hemoglobin 28.9 pg (27.0-33.0); Mean Corpuscular Volume 88.2 fL (80-98); Mean Platelet Volume 8.6 fL (9.4-12.4); Monocytes Absolute Auto 0.2 X10*3/uL (0.1-1.2); Monocytes Percent Auto 3.1 % (2-11); Neutrophils Absolute Auto 5.9 X10*3/uL (2.0-8.3); Neutrophils Percent Auto 78.9 % (45-73); Platelet Count 372 X10*3/uL (160-400); Red Blood Count 4.22 X10*6/uL (4.60-5.80); Red Cell Distribution Width 15.3 % (11.0-16.0); White Blood Count 7.5 X10*3/uL (4.8-10.8)
[2021-05-14 17:12] LABS: Alanine Aminotransferase 27 U/L (0-40); Albumin Level 4.1 g/dL (3.5-5.0); Alkaline Phosphatase 98 U/L (39-117); Anion Gap 11 (12-20); Aspartate Amino Transferase 25 U/L (5-37); Bilirubin Direct < 0.2 mg/dL (0.0-0.5); Bilirubin Total 0.3 mg/dL (0.0-1.0); Blood Urea Nitrogen 15 mg/dL (9-16); Calcium 9.1 mg/dL (8.4-10.2); Carbon Dioxide 28 mmol/L (22-29); Chloride 105 mmol/L (96-108); Creatinine Clr Calc Pharmacy 98.3; Estimated Glomerular Filt Rate > 60; Glucose Random 107 mg/dL (60-115); Magnesium 2.2 mg/dL (1.6-2.6); Potassium 4.7 mmol/L (3.3-5.1); Sodium 139 mmol/L (135-145); Total Protein 7.2 g/dL (6.5-8.0)
[2021-05-14] MEDS: Ketorolac Tromethamine 15 MG/ML VIAL 30 MG IM (17:14)
--- NOTE | 2021-05-14 17:18 | PC.NURSE ---
patient medicated for 04/25 headache
[2021-05-14 17:19] LABS: Troponin-I High Sensitivity < 3.5 ng/L (<3.5-35.0)
[2021-05-14 17:24] LABS: COVID-19 Test Negative (Negative)
== END 2021-05-14 18:17 | disposition home or self-care (01) ==
PROVIDERS: Nurse Practitioner Family; Emergency Provider Emergency Medicine; PCP Internal Medicine
DX: R51.9 Headache, unspecified (principal); R10.13 Epigastric pain; J40 Bronchitis, not specified as acute or chronic; R06.02 Shortness of breath; J43.9 Emphysema, unspecified; D64.9 Anemia, unspecified; F17.210 Nicotine dependence, cigarettes, uncomplicated; Z20.822 Contact with and (suspected) exposure to COVID-19
CPT/HCPCS: 36415; 71045; 80048; 80076; 83735; 84484; 85025; 87635; 93005; 94640; 99284; 99285; J1885

== ENCOUNTER 2021-06-07 07:37 | Emergency (ER) | payer MEDICAID, SELFPAY ==
--- NOTE | 2021-06-07 | ECG_ITS ---
Test Reason : chest pain Blood Pressure : / mmHG Vent. Rate : 089 BPM Atrial Rate : 089 BPM P-R Int : 158 ms QRS Dur : 120 ms QT Int : 372 ms P-R-T Axes : 071 030 070 degrees QTc Int : 452 ms Normal sinus rhythm Incomplete right bundle branch block Abnormal ECG When compared with ECG of 14-MAY-2021 15:15, No significant changes seen Referred By: Generic ED Physician Electronically Signed By:JIE MCDANIELS MD
--- NOTE | ~2021-06-07 | XR_ITS ---
EXAMINATION: XR CHEST CLINICAL INFORMATION: Rhonchi on the right COMPARISON: None TECHNIQUE: 2 views of the chest were obtained. FINDINGS: The lungs are well-expanded and clear of acute pneumonic process. Heart size and pulmonary vascularity are within normal limits. There is a focal eventration of left posterior hemidiaphragm with likely posterior compressive atelectasis. No gross bony abnormality seen. XR/XR chest 2V IMPRESSION: Unremarkable chest exam.
[2021-06-07 08:44] LABS: COVID-19 Test Negative (Negative); IDNOW Serial# 9DD0AD1C
[2021-06-07 09:16] VITALS: BP 129/74; PULSE 93; RESP 16; TEMP 36.6; O2SAT 94
--- NOTE | 2021-06-07 09:18 | ED.CHESTPAIN ---
HPI - Chest Pain General Chief Complaint: Chest Pain Stated Complaint: chest pain/SOB Time Seen by Provider: 06/07/21 09:18 Source: patient Limitations: no limitations History of Present Illness HPI narrative: Seen by his doctor on for bronchitis he is on a MDI and nebs and steroids but according to he does not seem better. MD complaint: chest pain Onset (ago): week(s) Severity: mild Quality: tightness Exacerbating factors: other (coughing) Related Data Previous Rx's Medication Instructions Recorded azithromycin 500 mg tablet See Rx Instructions .ROUTE 05/13/20 .COMPLEX #6 tab metoclopramide HCl 10 mg tablet 10 mg PO Q6H PRN #14 tab 04/21/21 (Reglan) oxycodone 5 mg tablet 5 mg PO Q4H PRN #14 tab 04/21/21 naproxen 500 mg tablet (Naprosyn) 500 mg PO BID #20 tab 06/07/21 prednisone 20 mg tablet 60 mg PO DAILY 4 Days #12 tab 06/07/21 Allergies Allergy/AdvReac Type Severity Reaction Status Date / Time ibuprofen Allergy Intermediate Stomach Verified 05/14/21 15:14 Upset penicillin V Allergy Intermediate rash Verified 05/14/21 15:14 Review of Systems Constitutional: Constitutional: Reports no additional constitutional complaints Eyes: Eyes: Reports no additional eye complaints ENT: Denies dizziness Cardiovascular: Cardiovascular: Reports no additional cardiovascular complaints Respiratory: Respiratory: Reports as per HPI Gastrointestinal: Gastrointestinal: Reports no additional gastrointestinal complaints Musculoskeletal: Musculoskeletal: Reports no additional musculoskeletal complaints Integumentary/Breasts: Skin/Breast: Denies rash Neurologic: Reports system reviewed and no additional complaints, except as documented, Denies dizziness and Denies Sensory deficit (Neuro) Psychiatric: Psychiatric: Denies anxiety [facility] Past Medical History Medical History Anxiety Asthma Depression Emphysema of lung Surgical History Hx of cholecystectomy Social History Social History Alcohol intake: never Patient Tobacco Use Status: Current someday Tobacco user Substance Use Type: Crack/Cocaine and Marijuana Advance Directives: No Advance Directives Information Provided: No Physical Exam Vital Signs: Vital Signs: Last Vital Signs Temp 97.9 F 06/07/21 09:16 Pulse 92 06/07/21 09:54 Resp 16 06/07/21 09:16 BP 129/74 06/07/21 09:16 Pulse Ox 94 06/07/21 09:16 Body Mass Index 0.0 Const: General: healthy appearing Nutritional Appearance: average body habitus Orientation/consciousness: oriented to person and patient oriented x3 Limitations: no limitations HENMT: Head: Yes normal to inspection Ears: external ears normal General nose exam: Normal external nose present Mouth: Normal oral and palatal mucosa present and oropharynx normal Throat: Yes posterior oropharynx normal Eyes: General: appearance normal, both eyes and all related structures Neck: Other: supple Neck: Yes normal visual inspection Chest: Chest palpation & inspection: normal inspection of the chest Resp: Other: rhonchi right lung greater than left Cardio: Jugular venous distension: no JVD Rate: regular rate Rhythm: regular rhythm Heart sounds: S1 normal heart sound present and S2 normal heart sound present GI: Inspection: Yes normal to inspection Palpation (GI): Soft to palpation, nontender and No hepatosplenomegaly present Auscultation: normal bowel sounds : General: Yes no CVA tenderness Back/Spine/Pelvis: Back: no CVA tenderness Skin: General skin exam: no rashes or lesions noted Neuro: General: oriented to person and patient oriented x3 Cranial nerves: Yes CN's II-XII intact bilaterally Motor exam (neuro): 5/5 motor strength present throughout Sensory Exam: No Sensory deficit (Neuro) Extrem: General: Yes normal to inspection Psych: Appearance: grossly normal Course Reevaluation(s) Reevaluation #1: Patient with reactive airways on low prednisone. Will bump up prednisone and continue for the next for days. No active infiltrate on lung xray although the patient has a lot of chronic disease will dc home Time: 11:21 MDM - Chest Pain Lab Data Labs: Lab Results 06/07/21 Range/Units 08:22 COVID-19 ([facility]) Negative (Negative) COVID-19 Clin Com See Note Imaging Data Chest x-ray: Radiologist's impression: FINDINGS: The lungs are well-expanded and clear of acute pneumonic process. Heart size and pulmonary vascularity are within normal limits. There is a focal eventration of left posterior hemidiaphragm with likely posterior compressive atelectasis. No gross bony abnormality seen. XR/XR chest 2V IMPRESSION: Unremarkable chest exam. ECG Data ECG #1: Attestation: I personally reviewed and interpreted this ECG as follows: Interpretation: sinus 90, RBBB, no st or twave changes Discharge Plan Discharge Clinical Impression: COPD exacerbation Patient Disposition: Home, Self-Care Instructions: COPD (Chronic Obstructive Pulmonary Disease) (ED) Prescriptions: New prednisone 20 mg tablet 60 mg PO DAILY 4 Days Qty: 12 RF: 0 naproxen [Naprosyn] 500 mg tablet 500 mg PO BID Qty: 20 RF: 0 No Action azithromycin 500 mg tablet See Rx Instructions .ROUTE .COMPLEX Qty: 6 RF: 0 metoclopramide HCl [Reglan] 10 mg tablet 10 mg PO Q6H PRN (Reason: nausea and vomiting) Qty: 14 RF: 0 oxycodone 5 mg tablet 5 mg PO Q4H PRN (Reason: pain) Qty: 14 RF: 0 Referrals: Vince Doran MD [Primary Care Provider] - 1 week
[2021-06-07] MEDS: Albuterol/Iprat 2.5/0.5MG 3 ML AMPUL.NEB INHALE (09:39)
[2021-06-07 09:40] VITALS: PULSE 89; O2SAT 95
[2021-06-07] MEDS: Albuterol Sulfate (0.083%) 2.5 MG/3 ML VIAL.NEB 10 MG INHALE (09:53)
[2021-06-07 09:54] VITALS: PULSE 92; O2SAT 84
[2021-06-07] MEDS: predniSONE 20 MG TABLET 60 MG PO (09:55)
[2021-06-07] MEDS: Acetaminophen 325 MG TABLET 650 MG PO (09:59)
[2021-06-07 11:32] VITALS: BP 118/70; PULSE 103; RESP 20
== END 2021-06-07 11:39 | disposition home or self-care (01) ==
PROVIDERS: Emergency Provider Emergency Medicine; PCP Internal Medicine
DX: J44.1 Chronic obstructive pulmonary disease with (acute) exacerbation (principal); Z20.822 Contact with and (suspected) exposure to COVID-19; R07.9 Chest pain, unspecified; F17.200 Nicotine dependence, unspecified, uncomplicated
CPT/HCPCS: 36415; 71046; 87635; 93005; 94640; 94644; 99284

== ENCOUNTER 2021-06-17 14:40 | Emergency (ER) | payer MEDICAID, SELFPAY ==
--- NOTE | ~2021-06-17 | CT_ITS ---
EXAMINATION: CTA Chest, Abdomen, and Pelvis CLINICAL INFORMATION: Evaluate for dissection, chest pain and abdominal pain COMPARISON: CT chest abdomen pelvis on 06/12/2019 TECHNIQUE: Helical computed tomography was performed from the inferior neck through the pubic symphysis after administration of 70 mL of Omnipaque 350 intravenous contrast. Multiplanar reconstructions are available for interpretation. MIPS images were produced for additional evaluation. Total DLP is 550 mGy*cm. FINDINGS: Lungs: The lung parenchyma is normal bilaterally. There is no pulmonary parenchymal mass, consolidation, ground-glass attenuation, or discrete suspicious pulmonary nodule. Airways: The central airways are patent. The peripheral airways are normal. There is no bronchiectasis. Pleura: The pleural surfaces are normal bilaterally. There is no pleural effusion. There is no pneumothorax. Mediastinum/Alison: There are no pathologically enlarged mediastinal or hilar lymph nodes. Cardiovascular: The heart is globally normal in size. The thoracic aorta is normal in course and caliber. The main pulmonary artery is normal in caliber. There is no pericardial effusion or pericardial thickening. Liver: Normal in size and attenuation. No focal lesions. Gallbladder and bile ducts: There has been prior cholecystectomy. No intrahepatic or extrahepatic biliary ductal dilatation. Spleen: Normal in size and attenuation. Pancreas: Unremarkable. Adrenal glands: Unremarkable. Right kidney: Multiple small/punctate nonobstructing calculi in the upper pole. Right mid pole cyst. There is no hydronephrosis or hydroureter. Left kidney: Punctate nonobstructing calculus in the left upper pole. There is no hydronephrosis or hydroureter. Lymph nodes: There is no lymphadenopathy in the abdomen or pelvis. Gastrointestinal tract: The stomach is unremarkable. The appendix is normal. The large pleural effusions are normal in caliber. Mild diverticulosis. There are multiple prominent small bowel loops in left abdomen. No bowel wall thickening. Urinary bladder: The bladder is normal. Pelvic organs: The prostate is unremarkable. Vasculature: The abdominal aorta is normal in course and caliber. There is mild calcific atherosclerotic disease. The celiac artery, SMA, and MANOHAR are patent. There are 2 renal arteries bilaterally which are patent. The iliofemoral system. Additional findings: There is no intraperitoneal free air or fluid. Soft tissues: Old right-sided rib fractures. Mild degenerative changes of lumbar spine. Osseous structures: No lytic or blastic lesions identified. CT/CT angio abdomen pelvis IMPRESSION: 1. No evidence of acute aortic syndrome. No aneurysm or dissection. 2. Prominent small bowel loops in left upper abdomen. No bowel wall thickening. Unclear etiology but may related to mild enteritis.
--- NOTE | ~2021-06-17 | XR_ITS ---
EXAMINATION: XR CHEST CLINICAL INFORMATION: SOB. COMPARISON: None TECHNIQUE: Frontal view of the chest was obtained. FINDINGS: No significant abnormality is noted involving the heart, lungs, mediastinum, bony thorax or soft tissues. XR/XR chest 1V IMPRESSION: Unremarkable chest examination.
[2021-06-17 14:48] VITALS: BP 143/89; PULSE 92; RESP 16; TEMP 36.7; O2SAT 95; BMI 28.3
--- NOTE | 2021-06-17 15:03 | ECG_ITS ---
Test Reason : DYSPENA Blood Pressure : / mmHG Vent. Rate : 099 BPM Atrial Rate : 099 BPM P-R Int : 146 ms QRS Dur : 096 ms QT Int : 360 ms P-R-T Axes : 072 -15 066 degrees QTc Int : 462 ms Normal sinus rhythm Incomplete right bundle branch block Borderline ECG When compared with ECG of 07-JUN-2021 09:26, No significant changes seen Referred By: Meg Vo Electronically Signed By:FREDI LACKEY
--- NOTE | 2021-06-17 15:13 | ED_ITS ---
HPI - Chest Pain General Chief Complaint: Dyspnea Stated Complaint: CP W/COPD EXAC X'S 1 DAY PER EMS Time Seen by Provider: 06/17/21 15:03 History of Present Illness HPI narrative: Patient is 56 years old with a history COPD. Baseline not on oxygen. Positive history hypertension, hypercholesterolemia, smoking up to 2 weeks ago. Never had a heart attack. Patient received Javier & Javier vaccine back in September. Complaining coughing chest pain is been constant since approximately 09:00. Minimal shortness of breath. Not changed from prior. No fever. Positive pain to the chest and also pain to the flank. Positive history of hypertension. Patient claims compliance with medication. No diaphoresis. No history of RI in the past. No stents in place. Related Data Previous Rx's Medication Instructions Recorded azithromycin 500 mg tablet See Rx Instructions .ROUTE 05/13/20 .COMPLEX #6 tab metoclopramide HCl 10 mg tablet 10 mg PO Q6H PRN #14 tab 04/21/21 (Reglan) oxycodone 5 mg tablet 5 mg PO Q4H PRN #14 tab 04/21/21 meloxicam 15 mg tablet (Mobic) 15 mg PO DAILY #10 tab 06/07/21 prednisone 20 mg tablet 60 mg PO DAILY 4 Days #12 tab 06/07/21 Allergies Allergy/AdvReac Type Severity Reaction Status Date / Time ibuprofen Allergy Intermediate Stomach Verified 05/14/21 15:14 Upset penicillin V Allergy Intermediate rash Verified 05/14/21 15:14 Review of Systems Review of Systems: Positive chest pain No diaphoresis All system reviewed otherwise negative PMFSH Past Medical History Attestation statement: The following information was validated with the patient. Medical History Anxiety Asthma Depression Emphysema of lung Surgical History Hx of cholecystectomy Social History Social History Alcohol intake: never Patient Tobacco Use Status: Current someday Tobacco user Substance Use Type: Crack/Cocaine and Marijuana Advance Directives: No Advance Directives Information Provided: Yes Physical Exam Vital Signs: Vital Signs: Last Vital Signs Temp 98.0 F 06/17/21 14:48 Pulse 92 06/17/21 14:48 Resp 16 06/17/21 14:48 BP 143/89 H 06/17/21 14:48 Pulse Ox 95 06/17/21 14:48 BMI result Body Mass Index 28.3 Appearance: Alert. Oriented X3. No acute distress. Eyes: Pupils equal, round and reactive to light. ENT: Pharynx normal. Neck: Normal inspection. Neck supple. No lymph nodes noted. No crepitus CVS: Normal heart rate and rhythm. Pulses normal. Normal S1 and S2 Respiratory: No respiratory distress. Breath sounds normal. No Wheezing. No ral es Abdomen: Soft and nontender. No rigidity. No distention. good BS x4 Skin: Skin warm and dry. Normal skin color. Normal skin turgor. Extremities: No lower extremity edema. Neurovascular intact to all extremities. No Lacerations. No Rash Neuro: Oriented X 3. No motor deficit. No sensory deficit. Moving all extermities. No slurred speech MDM - Chest Pain MDM Narrative Medical decision making narrative: Patient well appearing no distress. EKG is unchanged. Showed a sinus pattern heart rate was 80 QRS QT within normal limits as no acute ST segment elevation. Patient's troponin was negative. Pain greater than 6 hours. Unlikely ACS as patient's history not consistent. A CTA was done as patient has chest pain going to the back with a history of hypertension. The CTA was grossly negative for any acute evidence of dissection. Patient's BMP is normal no evidence for congestive heart failure. Likely pain is musculoskeletal. Will discharge patient home patient has no risk for pulmonary emboli. CTA showed no evidence of pneumonia no pneumothorax no rib fracture. In stable condition with discharge home. Patient's COVID test was negative. Medical Records Data Attestation: I reviewed the patient's medical records. Lab Data Attestation: I reviewed the patient's lab results. Result diagrams: 06/17/21 16:28 06/17/21 16:28 Labs: Lab Results 06/17/21 06/17/21 06/17/21 Range/Units 16:28 16:28 16:28 WBC 7.3 (4.8-10.8) X10*3/uL RBC 4.37 L (4.60-5.80) X10*6/uL Hgb 12.8 L (14.0-18.0) g/dl Hct 38.9 L (42.0-52.0) % MCV 89.0 (80.0-98.0) fL MCH 29.3 (27.0-33.0) pg MCHC 32.9 (31.0-36.0) g/dl RDW 15.8 (11.0-16.0) % Plt Count 366 (160-400) X10*3/uL MPV 8.8 L (9.4-12.4) fL Immature Gran % (Auto) 0.8 H (0.0-0.4) % Neut % (Auto) 78.4 H (45-73) % Lymph % (Auto) 11.9 L (20-40) % Harlan % (Auto) 2.9 (2-11) % Eos % (Auto) 5.3 H (0-4) % Baso % (Auto) 0.7 (0-2) % Lymph # (Auto) 0.9 L (1.2-4.9) X10*3/uL Harlan # (Auto) 0.2 (0.1-1.2) X10*3/uL Eos # (Auto) 0.4 (0.0-0.4) X10*3/uL Baso # (Auto) 0.1 (0.0-0.2) X10*3/uL Abs Immat Gran (auto) 0.06 H (0.00-0.03) X10*3/uL Absolute Neuts (auto) 5.8 (2.0-8.3) x10*3/uL Absolute Nucleated RBC 0.000 (0.0-0.012) X10*3/uL Nucleated RBC % (auto) 0.0 (0.0-0.2) /100WBC Sodium 138 (135-145) mmol/L Potassium 4.7 (3.3-5.1) mmol/L Chloride 104 (96-108) mmol/L Carbon Dioxide 27 (22-29) mmol/L Anion Gap 12 (12-20) BUN 16 (9-16) mg/dL Creatinine 0.91 (0.5-1.4) mg/dL Estim Creat Clear Calc 81.9 Estimated GFR > 60 Random Glucose 103 (60-115) mg/dL Calcium 9.6 (8.4-10.2) mg/dL Troponin I High Sens < 3.5 (<3.5-35.0) ng/L B-Natriuretic Peptide < 10 (<100) pg/mL Influenza Type A (PCR) (Negative) Influenza Type B (PCR) (Negative) RSV RNA Qual (PCR) (Negative) SARS-CoV-2 RNA (RT-PCR) (Negative) 06/17/21 Range/Units 16:28 WBC (4.8-10.8) X10*3/uL RBC (4.60-5.80) X10*6/uL Hgb (14.0-18.0) g/dl Hct (42.0-52.0) % MCV (80.0-98.0) fL MCH (27.0-33.0) pg MCHC (31.0-36.0) g/dl RDW (11.0-16.0) % Plt Count (160-400) X10*3/uL MPV (9.4-12.4) fL Immature Gran % (Auto) (0.0-0.4) % Neut % (Auto) (45-73) % Lymph % (Auto) (20-40) % Harlan % (Auto) (2-11) % Eos % (Auto) (0-4) % Baso % (Auto) (0-2) % Lymph # (Auto) (1.2-4.9) X10*3/uL Harlan # (Auto) (0.1-1.2) X10*3/uL Eos # (Auto) (0.0-0.4) X10*3/uL Baso # (Auto) (0.0-0.2) X10*3/uL Abs Immat Gran (auto) (0.00-0.03) X10*3/uL Absolute Neuts (auto) (2.0-8.3) x10*3/uL Absolute Nucleated RBC (0.0-0.012) X10*3/uL Nucleated RBC % (auto) (0.0-0.2) /100WBC Sodium (135-145) mmol/L Potassium (3.3-5.1) mmol/L Chloride (96-108) mmol/L Carbon Dioxide (22-29) mmol/L Anion Gap (12-20) BUN (9-16) mg/dL Creatinine (0.5-1.4) mg/dL Estim Creat Clear Calc Estimated GFR Random Glucose (60-115) mg/dL Calcium (8.4-10.2) mg/dL Troponin I High Sens (<3.5-35.0) ng/L B-Natriuretic Peptide (<100) pg/mL Influenza Type A (PCR) NEGATIVE (Negative) Influenza Type B (PCR) NEGATIVE (Negative) RSV RNA Qual (PCR) NEGATIVE (Negative) SARS-CoV-2 RNA (RT-PCR) NEGATIVE (Negative) Discharge Plan Discharge Clinical Impression: Chest pain Patient Disposition: Home, Self-Care Instructions: Chest Pain (ED) Prescriptions: No Action azithromycin 500 mg tablet See Rx Instructions .ROUTE .COMPLEX Qty: 6 RF: 0 metoclopramide HCl [Reglan] 10 mg tablet 10 mg PO Q6H PRN (Reason: nausea and vomiting) Qty: 14 RF: 0 oxycodone 5 mg tablet 5 mg PO Q4H PRN (Reason: pain) Qty: 14 RF: 0 prednisone 20 mg tablet 60 mg PO DAILY 4 Days Qty: 12 RF: 0 meloxicam [Mobic] 15 mg tablet 15 mg PO DAILY Qty: 10 RF: 0 Print Language: Uzbek
[2021-06-17] MEDS: Aspirin 81 MG TAB.CHEW 324 MG PO (16:09)
[2021-06-17] MEDS: HYDROmorphone HCl 0.5 MG/0.5 ML SYRINGE IVPUSH (16:09)
[2021-06-17 16:35] LABS: MANUAL DIFF FLAG NO
[2021-06-17 16:37] LABS: Basophils Absolute Auto 0.1 X10*3/uL (0.0-0.2); Basophils Percent Auto 0.7 % (0-2); Eosinophils Absolute Auto 0.4 X10*3/uL (0.0-0.4); Eosinophils Percent Auto 5.3 % (0-4); Hematocrit 38.9 % (42.0-52.0); Hemoglobin 12.8 g/dl (14.0-18.0); Imm Gran Abs Auto 0.06 X10*3/uL (0.00-0.03); Imm Gran Pct Auto 0.8 % (0.0-0.4); Lymphocytes Absolute Auto 0.9 X10*3/uL (1.2-4.9); Lymphocytes Percent Auto 11.9 % (20-40); Mean Corpuscular HGB Conc 32.9 g/dl (31.0-36.0); Mean Corpuscular Hemoglobin 29.3 pg (27.0-33.0); Mean Platelet Volume 8.8 fL (9.4-12.4); Monocytes Absolute Auto 0.2 X10*3/uL (0.1-1.2); Monocytes Percent Auto 2.9 % (2-11); Neutrophils Absolute Auto 5.8 x10*3/uL (2.0-8.3); Neutrophils Percent Auto 78.4 % (45-73); Platelet Count 366 X10*3/uL (160-400); Red Blood Count 4.37 X10*6/uL (4.60-5.80); Red Cell Distribution Width 15.8 % (11.0-16.0); White Blood Count 7.3 X10*3/uL (4.8-10.8)
[2021-06-17 16:54] LABS: Anion Gap 12 (12-20); Blood Urea Nitrogen 16 mg/dL (9-16); Calcium 9.6 mg/dL (8.4-10.2); Carbon Dioxide 27 mmol/L (22-29); Chloride 104 mmol/L (96-108); Creatinine Clr Calc Pharmacy 81.9; Estimated Glomerular Filt Rate > 60; Glucose Random 103 mg/dL (60-115); Potassium 4.7 mmol/L (3.3-5.1); Sodium 138 mmol/L (135-145)
[2021-06-17 17:02] LABS: B Type Natriuretic Peptide < 10 pg/mL (<100); Troponin-I High Sensitivity < 3.5 ng/L (<3.5-35.0)
[2021-06-17 17:18] LABS: Influenza A PCR NEGATIVE (Negative); Influenza B PCR NEGATIVE (Negative); Resp Syncy Virus RNA Qual PCR NEGATIVE (Negative); SARS COV2 PCR INHOUSE NEGATIVE (Negative)
[2021-06-17] MEDS: iohexoL 350 MG/ML 100 ML INFUS..BTL IV (17:26)
== END 2021-06-17 18:47 | disposition home or self-care (01) ==
PROVIDERS: Emergency Provider Emergency Medicine Emergency Medical Services; PCP Internal Medicine
DX: R07.9 Chest pain, unspecified (principal); R06.02 Shortness of breath; Z20.822 Contact with and (suspected) exposure to COVID-19
CPT/HCPCS: 0241U; 36415; 71045; 71275; 74174; 80048; 83880; 84484; 85025; 93005; 96374; 99283; 99284; J1170; Q9967

== ENCOUNTER 2021-07-07 14:09 | Emergency (ER) | payer MEDICAID, SELFPAY ==
--- NOTE | ~2021-07-07 | XR_ITS ---
EXAMINATION: XR CHEST CLINICAL INFORMATION: Chest pain, shortness of breath COMPARISON: 06/17/2021 TECHNIQUE: Frontal view of the chest was obtained. FINDINGS: Old healed right clavicle fracture again noted. No significant abnormality is noted involving the heart, lungs, mediastinum, bony thorax or soft tissues. XR/XR chest 1V IMPRESSION: Unremarkable examination.
--- NOTE | 2021-07-07 14:26 | ECG_ITS ---
Test Reason : CHEST PAIN Blood Pressure : / mmHG Vent. Rate : 078 BPM Atrial Rate : 078 BPM P-R Int : 162 ms QRS Dur : 104 ms QT Int : 380 ms P-R-T Axes : 081 010 075 degrees QTc Int : 433 ms Normal sinus rhythm Incomplete right bundle branch block Borderline ECG When compared with ECG of 17-JUN-2021 16:15, No significant change was found Referred By: Benjamin Mishra Electronically Signed By:FREDI LACKEY
[2021-07-07] MEDS: Albuterol Sulfate (0.083%) 2.5 MG/3 ML VIAL.NEB 5 MG INHALE (14:43)
--- NOTE | 2021-07-07 14:49 | ED.SOB ---
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 Patient states the shortness of breath started last night around 11:00 p.m.. He states that his nebulizer was broken but he was using his inhalers. He states that he has been sick for several days with a dry, nonproductive cough. He states that he has had pleuritic chest pain located throughout his chest, worse with coughing and with breathing. He had subjective fever and sweats at home. He has had chills as well. He states that he has had diffuse muscle aches. The patient did have several episodes of loose diarrheal stool yesterday. His shortness of breath got worse prior to coming to the emergency department therefore called 911. Paramedics report that his O2 saturation was 90% on room air. Respiratory rate was 16, blood pressure was 132/79, point of care glucose was 127. The patient does have a history of the COPD. He states that he received the Javier Javier vaccine for COVID-19 in September of 2020. He states he is scheduled to get a booster shot tomorrow. Related Data Previous Rx's Medication Instructions Recorded azithromycin 500 mg tablet See Rx Instructions .ROUTE 05/13/20 .COMPLEX #6 tab metoclopramide HCl 10 mg tablet 10 mg PO Q6H PRN #14 tab 04/21/21 (Reglan) oxycodone 5 mg tablet 5 mg PO Q4H PRN #14 tab 04/21/21 meloxicam 15 mg tablet (Mobic) 15 mg PO DAILY #10 tab 06/07/21 prednisone 20 mg tablet 60 mg PO DAILY 4 Days #12 tab 06/07/21 albuterol sulfate 2.5 mg (3 mL) INHALATION Q4-6H PRN 07/07/21 #25 ml albuterol sulfate 90 mcg/actuation 2 puff INHALATION Q4-6H PRN #8.5 g 07/07/21 aerosol inhaler morphine 15 mg immediate release 15 mg PO Q4-6H PRN #10 tab 07/07/21 tablet prednisone 20 mg tablet 60 mg PO DAILY 5 Days #15 tab 07/07/21 Allergies Allergy/AdvReac Type Severity Reaction Status Date / Time ibuprofen Allergy Intermediate Stomach Verified 05/14/21 15:14 Upset penicillin V Allergy Intermediate rash Verified 05/14/21 15:14 Review of Systems Review of Systems: Yes all other systems are reviewed and are negative [facility] Past [facility] History [facility] Narrative: Social history: The patient states that he stop smoking cigarettes 1 month prior. Patient smoked 1 pack of cigarettes per day times 44 years. He denies alcohol use. He states that he occasionally smokes marijuana Medical History Anxiety Asthma Depression Emphysema of lung Surgical History Hx of cholecystectomy Social History Social History Alcohol intake: never Patient Tobacco Use Status: Current someday Tobacco user Substance Use Type: Crack/Cocaine and Marijuana Advance Directives: No Advance Directives Information Provided: No Physical Exam Vital Signs: Vital Signs: Last Vital Signs Temp 98.6 F 07/07/21 15:18 Pulse 87 07/07/21 16:25 Resp 18 07/07/21 16:25 BP 127/80 07/07/21 15:18 Pulse Ox 94 07/07/21 15:18 BMI result Body Mass Index 25.6 Const: Other: Very pleasant and cooperative male patient, he is able answer all questions well and difficulty, he does appear to be dyspnea. HENMT: Head: Yes normal to inspection, Yes normocephalic and Yes atraumatic Ears: external ears normal General nose exam: Normal external nose present Face and sinus: Yes normal facial exam Mouth: Normal oral and palatal mucosa present Throat: Yes posterior oropharynx normal Eyes: General: appearance normal, both eyes and all related structures Pupils: Equal, round and reactive pupils present Neck: Neck: Yes normal visual inspection, Yes no lymphadenopathy, Yes trachea midline and Yes supple Chest: Chest palpation & inspection: normal inspection of the chest and normal palpation of entire chest wall Resp: Other: Diminished breath sounds at the bases, diffuse wheezing and rhonchi, no rales. Cardio: Rate: regular rate Rhythm: regular rhythm Heart sounds: S1 normal heart sound present, S2 normal heart sound present and no murmurs GI: Inspection: Yes normal to inspection Palpation (GI): Soft to palpation, nontender and no guarding Auscultation: normal bowel sounds : General: Yes no CVA tenderness Back/Spine/Pelvis: Back: no CVA tenderness Skin: General skin exam: no rashes or lesions noted Neuro: Cranial nerves: Yes CN's II-XII intact bilaterally and Yes Equal, round and reactive pupils present Cognition (Neuro): normal cognition Motor exam (neuro): 5/5 motor strength present throughout Extrem: General: Yes normal to inspection Psych: Appearance: grossly normal Speech and movement: Normal speech and movement present Affect: normal affect Attitude: cooperative Thought process: Normal thought process present Thought content: Normal thought content present Course Course Course Narrative: 56-year-old male who presents emergency department for evaluation of shortness of breath since 20/3 100 hours last night and cough, myalgias, fever, chills and diarrhea times several days. I did take report from the paramedics and the patient was reported to have an O2 saturation of 90% on room air which is low. On my examination the patient's lung exam revealed diffuse rhonchi and wheezing. Differential includes but not limited to COPD exacerbation, pneumonia, COVID-19 infection. The patient was ordered to get an albuterol nebulizer 5 mg with a filter. I also ordered to get Solu-Medrol 125 mg IV. Laboratory evaluation will be obtained including CBC, CMP, lipase, lactate, blood cultures x2. One-view chest x-ray will be obtained. Patient is complaining of moderate pain in his head and he will be treated with morphine 4 mg IV and Zofran 4 mg IV. 1620: Laboratory evaluation: CBC was normal. CMP was normal. The COVID-19, influenza and RSV tests were negative. Chest x-ray revealed no pneumonia. Patient did feel better after the 1st breathing treatment, but still feels short of breath. Repeat lung exam revealed improvement of his wheezing and his rhonchi. I ordered a DuoNeb for him. He states that he got no relief his headache with the morphine. He was ordered to get a 2nd dose of morphine 4 mg IV. 1729: The patient's lung exam improved significantly, the patient states that he is feeling better. He also got some improvement of his headache. Patient's presentation is consistent with a COPD exacerbation. The patient will be discharged home with a prescription for prednisone 60 mg once a day for 5 days. Patient was advised to take Tylenol for his headache pain is also given prescription for morphine for pain not relieved by Tylenol. Patient was also given a prescription for albuterol inhaler as well as albuterol nebulizer solution. MDM - SOB/Dyspnea Lab Data Result diagrams: 07/07/21 15:11 07/07/21 15:11 Labs: Lab Results 07/07/21 07/07/21 07/07/21 Range/Units 15:11 15:11 15:11 WBC 9.7 (4.8-10.8) X10*3/uL RBC 4.15 L (4.60-5.80) X10*6/uL Hgb 12.2 L (14.0-18.0) g/dl Hct 36.6 L (42.0-52.0) % MCV 88.2 (80.0-98.0) fL MCH 29.4 (27.0-33.0) pg MCHC 33.3 (31.0-36.0) g/dl RDW 15.2 (11.0-16.0) % Plt Count 377 (160-400) X10*3/uL MPV 8.8 L (9.4-12.4) fL Immature Gran % (Auto) 0.3 (0.0-0.4) % Neut % (Auto) 66.0 (45-73) % Lymph % (Auto) 22.7 (20-40) % Corson % (Auto) 6.0 (2-11) % Eos % (Auto) 4.5 H (0-4) % Baso % (Auto) 0.5 (0-2) % Lymph # (Auto) 2.2 (1.2-4.9) X10*3/uL [place]on # (Auto) 0.6 (0.1-1.2) X10*3/uL Eos # (Auto) 0.4 (0.0-0.4) X10*3/uL Baso # (Auto) 0.1 (0.0-0.2) X10*3/uL Abs Immat Gran (auto) 0.03 (0.00-0.03) X10*3/uL Absolute Neuts (auto) 6.4 (2.0-8.3) x10*3/uL Absolute Nucleated RBC 0.000 (0.0-0.012) X10*3/uL Nucleated RBC % (auto) 0.0 (0.0-0.2) /100WBC Sodium 138 (135-145) mmol/L Potassium 4.1 (3.3-5.1) mmol/L Chloride 107 (96-108) mmol/L Carbon Dioxide 25 (22-29) mmol/L Anion Gap 10 L (12-20) BUN 14 (9-16) mg/dL Creatinine 0.84 (0.5-1.4) mg/dL Estim Creat Clear Calc 86.5 Estimated GFR > 60 Random Glucose 90 (60-115) mg/dL Lactic Acid (0.5-2.0) mmol/L Calcium 9.1 (8.4-10.2) mg/dL Total Bilirubin 0.6 (0.0-1.0) mg/dL AST 18 (5-37) U/L ALT 18 (0-40) U/L Alkaline Phosphatase 92 (39-117) U/L Total Protein 6.8 (6.5-8.0) g/dL Albumin 4.0 (3.5-5.0) g/dL Lipase 20 (8-78) U/L Influenza Type A (PCR) NEGATIVE (Negative) Influenza Type B (PCR) NEGATIVE (Negative) RSV RNA Qual (PCR) NEGATIVE (Negative) SARS-CoV-2 RNA (RT-PCR) NEGATIVE (Negative) 07/07/21 Range/Units 15:11 WBC (4.8-10.8) X10*3/uL RBC (4.60-5.80) X10*6/uL Hgb (14.0-18.0) g/dl Hct (42.0-52.0) % MCV (80.0-98.0) fL MCH (27.0-33.0) pg MCHC (31.0-36.0) g/dl RDW (11.0-16.0) % Plt Count (160-400) X10*3/uL MPV (9.4-12.4) fL Immature Gran % (Auto) (0.0-0.4) % Neut % (Auto) (45-73) % Lymph % (Auto) (20-40) % [place] % (Auto) (2-11) % Eos % (Auto) (0-4) % Baso % (Auto) (0-2) % Lymph # (Auto) (1.2-4.9) X10*3/uL [place] # (Auto) (0.1-1.2) X10*3/uL Eos # (Auto) (0.0-0.4) X10*3/uL Baso # (Auto) (0.0-0.2) X10*3/uL Abs Immat Gran (auto) (0.00-0.03) X10*3/uL Absolute Neuts (auto) (2.0-8.3) x10*3/uL Absolute Nucleated RBC (0.0-0.012) X10*3/uL Nucleated RBC % (auto) (0.0-0.2) /100WBC Sodium (135-145) mmol/L Potassium (3.3-5.1) mmol/L Chloride (96-108) mmol/L Carbon Dioxide (22-29) mmol/L Anion Gap (12-20) BUN (9-16) mg/dL Creatinine (0.5-1.4) mg/dL Estim Creat Clear Calc Estimated GFR Random Glucose (60-115) mg/dL Lactic Acid 0.6 (0.5-2.0) mmol/L Calcium (8.4-10.2) mg/dL Total Bilirubin (0.0-1.0) mg/dL AST (5-37) U/L ALT (0-40) U/L Alkaline Phosphatase (39-117) U/L Total Protein (6.5-8.0) g/dL Albumin (3.5-5.0) g/dL Lipase (8-78) U/L Influenza Type A (PCR) (Negative) Influenza Type B (PCR) (Negative) RSV RNA Qual (PCR) (Negative) SARS-CoV-2 RNA (RT-PCR) (Negative) ECG Data Attestation: I personally reviewed and interpreted this ECG as follows: Interpretation: 1457: Normal sinus rhythm with a rate of 78, normal VT interval, prolonged QRS of 104 milliseconds, normal QTC of 433 milliseconds, no PACs, no PVCs, no ST segment elevation, no ST segment depression, Q R-wave and RR prime in V1 and V2 consistent with an incomplete right bundle-branch block. Discharge Plan Discharge Clinical Impression: Acute exacerbation of chronic obstructive pulmonary disease, Headache, URI (upper respiratory infection) Patient Disposition: Home, Self-Care Instructions: Upper Respiratory Infection (ED), COPD (Chronic Obstructive Pulmonary Disease) (ED), Acute Headache (ED) Additional Instructions: Your laboratory evaluation was unremarkable. Your chest x-ray revealed no evidence of pneumonia. Your COVID-19, influenza and RSV virus tests were all negative. Your presentation is consistent with a flare-up of your asthma/COPD. Take prednisone 20 mg pills, 3 pills once a day for 5 days. Take Tylenol (acetaminophen) 500 mg pills, 2 pills every 4-6 hours as needed for pain. For pain not relieved by ibuprofen or Tylenol take morphine 15 mg pills, 1 pill every 4 hours as needed for pain. Do not drive or work while taking this medication since they can cause sleepiness. Morphine is a narcotic medication that can be addicting. If you are concerned about addiction you can ask the pharmacist for less pills or do not get this prescription filled. Use the albuterol inhaler 2 puffs every 4-6 hours as needed for shortness of breath. Use the albuterol nebulizer solution, 1 vial every 4-6 hours as needed for shortness of breath. Follow-up with your doctor in 2 days. Please return to the emergency department if your symptoms get worse or if you develop any symptoms that are concerning to you. Prescriptions: New albuterol sulfate 2.5 mg /3 mL (0.083 %) solution for nebulization 2.5 mg inhalation Q4-6H PRN (Reason: shortness of breath or wheezing) Qty: 25 RF: 0 albuterol sulfate 90 mcg/actuation HFA aerosol inhaler 2 puff inhalation Q4-6H PRN (Reason: shortness of breath or wheezing) Qty: 8.5 RF: 0 prednisone 20 mg tablet 60 mg PO DAILY 5 Days Qty: 15 RF: 0 morphine 15 mg tablet 15 mg PO Q4-6H PRN (Reason: pain) Qty: 10 RF: 0 No Action azithromycin 500 mg tablet See Rx Instructions .ROUTE .COMPLEX Qty: 6 RF: 0 metoclopramide HCl [Reglan] 10 mg tablet 10 mg PO Q6H PRN (Reason: nausea and vomiting) Qty: 14 RF: 0 oxycodone 5 mg tablet 5 mg PO Q4H PRN (Reason: pain) Qty: 14 RF: 0 prednisone 20 mg tablet 60 mg PO DAILY 4 Days Qty: 12 RF: 0 meloxicam [Mobic] 15 mg tablet 15 mg PO DAILY Qty: 10 RF: 0
[2021-07-07 15:18] VITALS: BP 127/80; BP 134/87; PULSE 83; PULSE 85; RESP 18; TEMP 37; O2SAT 94; BMI 25.6
[2021-07-07 15:18] LABS: MANUAL DIFF FLAG NO
[2021-07-07 15:25] LABS: Basophils Absolute Auto 0.1 X10*3/uL (0.0-0.2); Basophils Percent Auto 0.5 % (0-2); Eosinophils Absolute Auto 0.4 X10*3/uL (0.0-0.4); Eosinophils Percent Auto 4.5 % (0-4); Hematocrit 36.6 % (42.0-52.0); Hemoglobin 12.2 g/dl (14.0-18.0); Imm Gran Abs Auto 0.03 X10*3/uL (0.00-0.03); Imm Gran Pct Auto 0.3 % (0.0-0.4); Lymphocytes Absolute Auto 2.2 X10*3/uL (1.2-4.9); Lymphocytes Percent Auto 22.7 % (20-40); Mean Corpuscular HGB Conc 33.3 g/dl (31.0-36.0); Mean Corpuscular Hemoglobin 29.4 pg (27.0-33.0); Mean Corpuscular Volume 88.2 fL (80.0-98.0); Mean Platelet Volume 8.8 fL (9.4-12.4); Monocytes Absolute Auto 0.6 X10*3/uL (0.1-1.2); Neutrophils Absolute Auto 6.4 x10*3/uL (2.0-8.3); Platelet Count 377 X10*3/uL (160-400); Red Blood Count 4.15 X10*6/uL (4.60-5.80); Red Cell Distribution Width 15.2 % (11.0-16.0); White Blood Count 9.7 X10*3/uL (4.8-10.8)
[2021-07-07 15:31] LABS: Lactic Acid 0.6 mmol/L (0.5-2.0)
[2021-07-07] MEDS: Morphine Sulfate 4 MG/ML CARTRIDGE IVPUSH ×2 (15:35→16:47)
[2021-07-07] MEDS: ondansetron HCL 4 MG/2 ML VIAL IVPUSH (15:36)
[2021-07-07] MEDS: methylPREDNISolone Sod Succ 125 MG/2 ML VIAL IVPUSH (15:36)
[2021-07-07 15:40] LABS: Alanine Aminotransferase 18 U/L (0-40); Alkaline Phosphatase 92 U/L (39-117); Anion Gap 10 (12-20); Aspartate Amino Transferase 18 U/L (5-37); Bilirubin Total 0.6 mg/dL (0.0-1.0); Blood Urea Nitrogen 14 mg/dL (9-16); Calcium 9.1 mg/dL (8.4-10.2); Carbon Dioxide 25 mmol/L (22-29); Chloride 107 mmol/L (96-108); Creatinine Clr Calc Pharmacy 86.5; Estimated Glomerular Filt Rate > 60; Glucose Random 90 mg/dL (60-115); Lipase 20 U/L (8-78); Potassium 4.1 mmol/L (3.3-5.1); Sodium 138 mmol/L (135-145); Total Protein 6.8 g/dL (6.5-8.0)
[2021-07-07 15:57] LABS: Influenza A PCR NEGATIVE (Negative); Influenza B PCR NEGATIVE (Negative); Resp Syncy Virus RNA Qual PCR NEGATIVE (Negative); SARS COV2 PCR INHOUSE NEGATIVE (Negative)
[2021-07-07] MEDS: Albuterol/Iprat 2.5/0.5MG 3 ML AMPUL.NEB INHALE (16:24)
[2021-07-07 16:25] VITALS: PULSE 87; RESP 18; O2SAT 94
[2021-07-07 17:52] VITALS: BP 110/61; PULSE 96; RESP 16; TEMP 37; O2SAT 95
== END 2021-07-07 18:05 | disposition home or self-care (01) ==
PROVIDERS: Emergency Provider Emergency Medicine Emergency Medical Services; PCP Internal Medicine
DX: J44.1 Chronic obstructive pulmonary disease with (acute) exacerbation (principal); R06.02 Shortness of breath; F14.90 Cocaine use, unspecified, uncomplicated; M79.10 Myalgia, unspecified site; R51.9 Headache, unspecified; Z20.822 Contact with and (suspected) exposure to COVID-19; Z79.899 Other long term (current) drug therapy
CPT/HCPCS: 0241U; 36415; 71045; 80053; 83605; 83690; 85025; 87040; 93005; 94640; 96374; 96375; 96376; 99284; J2270; J2405; J2930

== ENCOUNTER 2021-07-14 14:23 | Emergency (ER) | payer MEDICAID, SELFPAY ==
--- NOTE | 2021-07-14 | ECG_ITS ---
Test Reason : CHEST PAIN Blood Pressure : / mmHG Vent. Rate : 075 BPM Atrial Rate : 075 BPM P-R Int : 142 ms QRS Dur : 096 ms QT Int : 380 ms P-R-T Axes : 078 021 072 degrees QTc Int : 424 ms Normal sinus rhythm Incomplete right bundle branch block Borderline ECG When compared with ECG of 07-JUL-2021 14:57, No significant change was found Referred By: Generic ED Physician Electronically Signed By:Edgar Walker
[2021-07-14 14:30] VITALS: BP 147/72; PULSE 83; O2SAT 95
== END 2021-07-14 19:03 | disposition left against medical advice (07) ==
PROVIDERS: Emergency Provider Emergency Medicine
DX: R10.9 Unspecified abdominal pain (principal); R07.9 Chest pain, unspecified
CPT/HCPCS: 93005; 99281; 99283

== ENCOUNTER 2021-07-18 18:48 | Emergency (ER) | payer MEDICAID, SELFPAY ==
--- NOTE | ~2021-07-18 | XR_ITS ---
EXAMINATION: XR CHEST CLINICAL INFORMATION: Shortness of breath. COMPARISON: Chest radiograph dated from 07/07/2021. TECHNIQUE: PA view of the chest was obtained. FINDINGS: Normal appearance of the cardiomediastinal silhouette. Clear lungs. No pleural effusions or pneumothorax. No acute osseous abnormalities. Chronic right clavicular fracture. XR/XR chest 1V IMPRESSION: No acute cardiopulmonary findings.
--- NOTE | 2021-07-18 19:09 | ECG_ITS ---
Test Reason : chest pain Blood Pressure : / mmHG Vent. Rate : 098 BPM Atrial Rate : 098 BPM P-R Int : 144 ms QRS Dur : 090 ms QT Int : 346 ms P-R-T Axes : 079 -11 068 degrees QTc Int : 441 ms Normal sinus rhythm Normal ECG When compared with ECG of 14-JUL-2021 14:50, No significant change was found Referred By: Generic ED Physician Electronically Signed By:AKASH SUAREZ MD
[2021-07-18 19:55] VITALS: BP 145/84; PULSE 103; RESP 20; TEMP 36.9; O2SAT 95; O2SAT 96; BMI 28.3
--- NOTE | 2021-07-18 19:58 | PC.NURSE ---
Pt to ED via EMS, refusing to wait in [facility], states those people are sick . Pt denies hx cancer, not immunocompromised. During triage pt stated I would rather go at home. Educated pt on risks of leaving w/o treatment and physician eval. Pt ambulatory to at this time
== END 2021-07-18 22:22 | disposition left against medical advice (07) ==
PROVIDERS: Emergency Provider Emergency Medicine
DX: R06.00 Dyspnea, unspecified (principal); R51.9 Headache, unspecified; R07.9 Chest pain, unspecified
CPT/HCPCS: 71045; 93005; 99283

== ENCOUNTER 2021-08-04 15:48 | Emergency (ER) | payer MEDICAID, SELFPAY ==
--- NOTE | 2021-08-04 | ECG_ITS ---
Test Reason : CHEST PAIN Blood Pressure : / mmHG Vent. Rate : 070 BPM Atrial Rate : 070 BPM P-R Int : 148 ms QRS Dur : 100 ms QT Int : 390 ms P-R-T Axes : 077 024 073 degrees QTc Int : 421 ms Normal sinus rhythm Incomplete right bundle branch block Borderline ECG When compared with ECG of 18-JUL-2021 19:41, No significant change was found Referred By: Generic ED Physician Electronically Signed By:Edgar Walker
[2021-08-04 16:30] VITALS: BP 160/88; PULSE 76; O2SAT 99
[2021-08-04 17:06] VITALS: BP 157/96; PULSE 73; RESP 16; TEMP 35.6; O2SAT 97; BMI 29.7
[2021-08-04 17:33] LABS: Basophils Absolute Auto 0.1 X10*3/uL (0.0-0.2); Basophils Percent Auto 0.6 % (0-2); Eosinophils Absolute Auto 0.2 X10*3/uL (0.0-0.4); Eosinophils Percent Auto 2.6 % (0-4); Hematocrit 37.1 % (42.0-52.0); Hemoglobin 12.4 g/dl (14.0-18.0); Imm Gran Abs Auto 0.08 X10*3/uL (0.00-0.03); Imm Gran Pct Auto 0.9 % (0.0-0.4); Lymphocytes Absolute Auto 3.4 X10*3/uL (1.2-4.9); Lymphocytes Percent Auto 38.4 % (20-40); MANUAL DIFF FLAG NO; Mean Corpuscular HGB Conc 33.4 g/dl (31.0-36.0); Mean Corpuscular Hemoglobin 28.8 pg (27.0-33.0); Mean Corpuscular Volume 86.3 fL (80.0-98.0); Mean Platelet Volume 8.3 fL (9.4-12.4); Monocytes Absolute Auto 0.7 X10*3/uL (0.1-1.2); Monocytes Percent Auto 8.1 % (2-11); Neutrophils Absolute Auto 4.4 x10*3/uL (2.0-8.3); Neutrophils Percent Auto 49.4 % (45-73); Platelet Count 404 X10*3/uL (160-400); Red Cell Distribution Width 14.9 % (11.0-16.0); White Blood Count 8.9 X10*3/uL (4.8-10.8)
[2021-08-04 17:57] LABS: Anion Gap 11 (12-20); Blood Urea Nitrogen 15 mg/dL (9-16); Calcium 9.2 mg/dL (8.4-10.2); Carbon Dioxide 30 mmol/L (22-29); Chloride 104 mmol/L (96-108); Creatinine Clr Calc Pharmacy 91.8; Estimated Glomerular Filt Rate > 60; Glucose Random 93 mg/dL (60-115); Potassium 3.8 mmol/L (3.3-5.1); Sodium 141 mmol/L (135-145); Troponin-I High Sensitivity 20.5 ng/L (<3.5-35.0)
== END 2021-08-04 20:28 | disposition left against medical advice (07) ==
PROVIDERS: Emergency Provider Emergency Medicine
DX: R07.89 Other chest pain (principal); R00.2 Palpitations; R06.02 Shortness of breath; M79.602 Pain in left arm
CPT/HCPCS: 36415; 80048; 84484; 85025; 93005; 99283

== ENCOUNTER → 2021-08-13 13:55 | Outpatient (BNVA) | payer MEDICAID, SELFPAY | PROVIDERS: PCP Internal Medicine; Visit Provider Internal Medicine Pulmonary Disease | DX: J44.9 Chronic obstructive pulmonary disease, unspecified (principal); R91.8 Other nonspecific abnormal finding of lung field | CPT/HCPCS: 99202 ==

== ENCOUNTER → 2021-09-08 13:44 | Outpatient (BNVA) | payer MEDICAID, SELFPAY | PROVIDERS: PCP Internal Medicine; Visit Provider Internal Medicine Pulmonary Disease | DX: G47.33 Obstructive sleep apnea (adult) (pediatric) (principal); R06.83 Snoring; R40.0 Somnolence; J43.9 Emphysema, unspecified; R91.8 Other nonspecific abnormal finding of lung field; F41.8 Other specified anxiety disorders; F17.210 Nicotine dependence, cigarettes, uncomplicated; F14.20 Cocaine dependence, uncomplicated; F12.20 Cannabis dependence, uncomplicated; Z88.0 Allergy status to penicillin; Z88.8 Allergy status to other drugs, medicaments and biological substances | CPT/HCPCS: 99212 ==

== ENCOUNTER 2021-10-10 08:03 | Emergency (ER) | payer MEDICAID, SELFPAY ==
--- NOTE | ~2021-10-10 | XR_ITS ---
EXAMINATION: XR CHEST CLINICAL INFORMATION: Wheezing COMPARISON: Prior chest July 2021 TECHNIQUE: 2 views of the chest were obtained. FINDINGS: No significant abnormality is noted involving the heart, lungs, mediastinum, bony thorax or soft tissues. XR/XR chest 2V IMPRESSION: Unremarkable examination.
--- NOTE | 2021-10-10 08:07 | ECG_ITS ---
Test Reason : cp Blood Pressure : / mmHG Vent. Rate : 091 BPM Atrial Rate : 091 BPM P-R Int : 154 ms QRS Dur : 104 ms QT Int : 372 ms P-R-T Axes : 078 000 085 degrees QTc Int : 457 ms Normal sinus rhythm Incomplete right bundle branch block Nonspecific T wave abnormality Abnormal ECG When compared with ECG of 04-AUG-2021 17:08, Nonspecific T wave abnormality now evident in Lateral leads Referred By: Generic ED Physician Electronically Signed By:Edgar Walker
--- NOTE | 2021-10-10 08:14 | ED_ITS ---
HPI - General Adult General Chief complaint: Chest Pain Stated complaint: chest pains/lower back pain Time Seen by Provider: 10/10/21 08:14 Source: patient Mode of arrival: ambulatory Limitations: no limitations History of Present Illness HPI narrative: Patient is a 56 year old male presenting to the emergency department today with back pain and wheezing. Patient states that for the last few days, he has had low back pain and a tightness/wheezing in his chest. Patient denies any dizziness, lightheadedness, abdominal pain, nausea, vomiting, fever, chills, blurry vision, double vision, loss of vision, chest pain, night sweats, pain with urination, increased urinary frequency, increased urinary urgency, blood in his urine or stool, syncope or a near syncopal episode, recent trauma or falls, bowel incontinence, bladder incontinence, bowel retention, bladder retention, or any other complaints at this time. Patient states that he has a history of COPD/Asthma but he has not been doing his treatments at home. Onset (ago): day(s) (3) Location: back Radiation: non-radiation Severity: mild Severity scale (1-10): 3 Quality: dull Pain Consistency: intermittent Relieving factors: none Exacerbating factors: none Treatments prior to arrival: none Related Data Previous Rx's Medication Instructions Recorded azithromycin 500 mg tablet See Rx Instructions .ROUTE 05/13/20 .COMPLEX #6 tab metoclopramide HCl 10 mg tablet 10 mg PO Q6H PRN #14 tab 04/21/21 (Reglan) oxycodone 5 mg tablet 5 mg PO Q4H PRN #14 tab 04/21/21 meloxicam 15 mg tablet (Mobic) 15 mg PO DAILY #10 tab 06/07/21 prednisone 20 mg tablet 60 mg PO DAILY 4 Days #12 tab 06/07/21 albuterol sulfate 2.5 mg (3 mL) INHALATION Q4-6H PRN 07/07/21 #25 ml albuterol sulfate 90 mcg/actuation 2 puff INHALATION Q4-6H PRN #8.5 g 07/07/21 aerosol inhaler morphine 15 mg immediate release 15 mg PO Q4-6H PRN #10 tab 07/07/21 tablet prednisone 20 mg tablet 60 mg PO DAILY 5 Days #15 tab 07/07/21 tiotropium 2.5 mcg-olodaterol 2.5 2 puff INHALATION DAILY 30 Days #1 08/13/21 mcg/actuation mist for inhalation ea (Stiolto Respimat) cyclobenzaprine 10 mg tablet 10 mg PO TID PRN 7 Days #21 tab 10/10/21 Allergies Allergy/AdvReac Type Severity Reaction Status Date / Time ibuprofen Allergy Intermediate Stomach Verified 10/10/21 08:16 Upset penicillin V Allergy Intermediate rash Verified 09/08/21 13:49 Review of Systems Constitutional: Constitutional: Reports no additional constitutional complaints, Denies chills, Denies fever(s) and Denies night sweats Eyes: Eyes: Reports no additional eye complaints, Denies blurry vision, Denies change in vision, Denies diplopia, Denies eye discharge, Denies loss of vision and Denies eye pain ENT: Denies dizziness Cardiovascular: Cardiovascular: Reports no additional cardiovascular complaints, Denies chest pain, Denies lightheadedness, Denies Loss of Consciousness and Denies dyspnea Respiratory: Respiratory: Reports no additional respiratory complaints, Denies dyspnea and Reports wheezing Gastrointestinal: Gastrointestinal: Reports no additional gastrointestinal complaints, Denies abdominal pain, Denies melena, Denies hematochezia, Denies change in bowel habits and Denies change in stool character Genitourinary: Genitourinary: Reports no additional male genitourinary complaints, Denies hematuria, Denies oliguria, Denies difficulty urinating, Denies dysuria, Denies urinary frequency, Denies urinary hesitancy, Denies urinary incontinence and Denies urinary urgency Musculoskeletal: Musculoskeletal: Reports no additional musculoskeletal complaints, Reports back pain, Denies numbness and Denies tingling Neurologic: Denies dizziness, Denies loss of vision, Denies numbness and Denies tingling Psychiatric: Psychiatric: Reports no additional psychiatric complaints Endocrine: Endocrine: Reports no additional endocrine complaints Hematologic/Lymphatic: Hematologic/Lymphatic: Reports no additional hematologic/lymphatic complaints Allergic/Immunologic: Allergic/Immunologic: Reports no additional allergic/imm unologic complaints and Reports wheezing PMFSH Past Medical History Attestation statement: The following information was validated with the patient. Source: old records reviewed Medical History Anxiety Asthma Depression Emphysema of lung Surgical History Hx of cholecystectomy Social History Social History Alcohol intake: never Patient Tobacco Use Status: Current someday Tobacco user Substance Use Type: Crack/Cocaine and Marijuana Advance Directives: No Physical Exam ED Vital Signs: Vital Signs - 24 hr 10/10/21 08:18 Pulse Rate 89 Respiratory Rate 19 Blood Pressure 132/85 Pulse Oximetry 94 BMI result Body Mass Index 32.3 Const General: cooperative, no acute distress, alert and awake Nutritional Appearance: well nourished Orientation/consciousness: patient oriented x3 Limitations: no limitations HENMT Head: Yes normal to inspection and Yes atraumatic Ears: hearing grossly normal bilaterally and external ears normal General nose exam: Normal external nose present, no nasal discharge noted and no epistaxis Face and sinus: Yes normal facial exam, No abrasion and No laceration Mouth: Normal oral and palatal mucosa present, no drooling and no muffled voice Eyes General: appearance normal, both eyes and all related structures Periorbital: periorbital findings normal Eyelids: Yes eyelids normal Conjunctivae: conjunctivae normal Pupils: Equal, round and reactive pupils present EOM: EOMs intact bilaterally Neck Neck: Yes normal visual inspection, Yes full ROM and Yes no lymphadenopathy Chest Chest palpation & inspection: normal inspection of the chest Resp Effort & Inspection: normal respiratory effort and able to speak in complete sentences Auscultation: wheezes scattered wheezes and throughout Cardio Rate: regular rate Rhythm: regular rhythm GI Inspection: Yes normal to inspection Neuro General: patient oriented x3 and moves all extremities Cranial nerves: Yes Equal, round and reactive pupils present Cognition (Neuro): normal cognition Motor exam (neuro): 5/5 motor strength present throughout Sensory Exam: Normal double simultaneous stimulation for sensation Coordination: [id number] test normal Extrem General: Yes normal to inspection, Yes full ROM and Yes capillary refill normal Psych Appearance: grossly normal Mental Status: mental status grossly normal Affect: normal affect Attitude: cooperative Thought process: Normal thought process present Thought content: Normal thought content present Insight: Good insight present (Psych) Medical Decision Making MDM Narrative Medical decision making narrative: Patient is a 56 year old male presenting to the emergency department today with a cough and back pain. Patient's physical exam showed wheezes throughout however, the wheezing resolved after a duoneb treatment. Patient's blood work was unremarkable. Patient's EKG was unremarkable. Patient's chest x-ray showed no acute process. I explained my physical exam findings as well as all test results to the patient and the patient's . I answered all questions asked by the patient and the patient's . Patient received a duoneb, IV Morphine, IV ativan, and PO Flexeril which he stated helped his symptoms significantly. I st ressed the importance of the patient taking his medication as prescribed. I stressed the importance of the patient following up with his primary care provider. I stressed the importance of the patient returning to the emergency department immediately if his symptoms were to worsen or if he were to develop any dizziness, shortness of breath, difficulty breathing, chest pain, blurry vision, loss of vision, nausea, vomiting, abdominal pain, fever, chills, back pain, or any other complaints. Patient verbalized agreement and understanding with this treatment plan and discharge. Differential Diagnosis Differential Diagnosis: cough, pneumonia, asthma attack Medical Records Medical records reviewed: Yes I reviewed the patient's medical records. Lab Data Lab results reviewed: Yes I reviewed the patient's lab results. Result diagrams: 10/10/21 09:14 10/10/21 09:14 Labs: Lab Results 10/10/21 10/10/21 10/10/21 Range/Units 09:14 09:14 09:14 WBC 6.4 (4.8-10.8) X10*3/uL RBC 3.80 L (4.60-5.80) X10*6/uL Hgb 10.8 L (14.0-18.0) g/dl Hct 33.4 L (42.0-52.0) % MCV 87.9 (80.0-98.0) fL MCH 28.4 (27.0-33.0) pg MCHC 32.3 (31.0-36.0) g/dl RDW 14.5 (11.0-16.0) % Plt Count 358 (160-400) X10*3/uL MPV 8.3 L (9.4-12.4) fL Immature Gran % (Auto) 0.5 H (0.0-0.4) % Neut % (Auto) 65.2 (45-73) % Lymph % (Auto) 19.0 L (20-40) % [place] % (Auto) 8.9 (2-11) % Eos % (Auto) 5.9 H (0-4) % Baso % (Auto) 0.5 (0-2) % Lymph # (Auto) 1.2 (1.2-4.9) X10*3/uL [place] # (Auto) 0.6 (0.1-1.2) X10*3/uL Eos # (Auto) 0.4 (0.0-0.4) X10*3/uL Baso # (Auto) 0.0 (0.0-0.2) X10*3/uL Abs Immat Gran (auto) 0.03 (0.00-0.03) X10*3/uL Absolute Neuts (auto) 4.2 (2.0-8.3) x10*3/uL Absolute Nucleated RBC 0.000 (0.0-0.012) X10*3/uL Nucleated RBC % (auto) 0.0 (0.0-0.2) /100WBC Sodium 140 (135-145) mmol/L Potassium 3.8 (3.3-5.1) mmol/L Chloride 107 (96-108) mmol/L Carbon Dioxide 26 (22-29) mmol/L Anion Gap 11 L (12-20) BUN 19 H (9-16) mg/dL Creatinine 0.83 (0.5-1.4) mg/dL Estim Creat Clear Calc 85.6 Estimated GFR > 60 Random Glucose 109 (60-115) mg/dL Calcium 8.5 D (8.4-10.2) mg/dL Total Bilirubin 0.4 (0.0-1.0) mg/dL AST 20 (5-37) U/L ALT 25 (0-40) U/L Alkaline Phosphatase 77 (39-117) U/L Troponin I High Sens < 3.5 D (<3.5-35.0) ng/L Total Protein 6.5 (6.5-8.0) g/dL Albumin 3.6 (3.5-5.0) g/dL Urine Color Urine Appearance Urine pH (5.0-8.0) Ur Specific [place] (1.005-1.025) Urine Protein (NEG-TRACE) MG/DL Urine Glucose (UA) (NEG) MG/DL Urine Ketones (NEG) MG/DL Urine Blood (NEG) Urine Nitrite (NEG) Ur Leukocyte Esterase (NEG) Influenza Type A (RASHAD) (Negative) Influenza Type B (RASHAD) (Negative) Influenza A & B Note 10/10/21 10/10/21 Range/Units 09:14 09:52 WBC (4.8-10.8) X10*3/uL RBC (4.60-5.80) X10*6/uL Hgb (14.0-18.0) g/dl Hct (42.0-52.0) % MCV (80.0-98.0) fL MCH (27.0-33.0) pg MCHC (31.0-36.0) g/dl RDW (11.0-16.0) % Plt Count (160-400) X10*3/uL MPV (9.4-12.4) fL Immature Gran % (Auto) (0.0-0.4) % Neut % (Auto) (45-73) % Lymph % (Auto) (20-40) % [place] % (Auto) (2-11) % Eos % (Auto) (0-4) % Baso % (Auto) (0-2) % Lymph # (Auto) (1.2-4.9) X10*3/uL [place] # (Auto) (0.1-1.2) X10*3/uL Eos # (Auto) (0.0-0.4) X10*3/uL Baso # (Auto) (0.0-0.2) X10*3/uL Abs Immat Gran (auto) (0.00-0.03) X10*3/uL Absolute Neuts (auto) (2.0-8.3) x10*3/uL Absolute Nucleated RBC (0.0-0.012) X10*3/uL Nucleated RBC % (auto) (0.0-0.2) /100WBC Sodium (135-145) mmol/L Potassium (3.3-5.1) mmol/L Chloride (96-108) mmol/L Carbon Dioxide (22-29) mmol/L Anion Gap (12-20) BUN (9-16) mg/dL Creatinine (0.5-1.4) mg/dL Estim Creat Clear Calc Estimated GFR Random Glucose (60-115) mg/dL Calcium (8.4-10.2) mg/dL Total Bilirubin (0.0-1.0) mg/dL AST (5-37) U/L ALT (0-40) U/L Alkaline Phosphatase (39-117) U/L Troponin I High Sens (<3.5-35.0) ng/L Total Protein (6.5-8.0) g/dL Albumin (3.5-5.0) g/dL Urine Color YELLOW Urine Appearance CLEAR Urine pH 7.0 (5.0-8.0) Ur Specific [place] 1.015 (1.005-1.025) Urine Protein NEG (NEG-TRACE) MG/DL Urine Glucose (UA) NEG (NEG) MG/DL Urine Ketones NEG (NEG) MG/DL Urine Blood NEG (NEG) Urine Nitrite NEG (NEG) Ur Leukocyte Esterase NEG (NEG) Influenza Type A (RASHAD) Negative (Negative) Influenza Type B (RASHAD) Negative (Negative) Influenza A & B Note See Note Imaging Data Chest x-ray: Attestation: I personally reviewed and interpreted this imaging study as follows: My impression: No acute process. Radiologist's impression: EXAMINATION: XR CHEST CLINICAL INFORMATION: Wheezing COMPARISON: Prior chest July 2021 TECHNIQUE: 2 views of the chest were obtained. FINDINGS: No significant abnormality is noted involving the heart, lungs, mediastinum, bony thorax or soft tissues. XR/XR chest 2V IMPRESSION: Unremarkable examination. Dictated By: Gabriel Lackey MD Signed By: Electronically signed by Gabriel Lackey MD 10/10/21 0955 ECG Data Attestation: I personally reviewed and interpreted this ECG as follows: Prior ECG tracings: available for review Interpretation: Vent. Rate: 091 BPM ? ? Atrial Rate: 091 BPM P-R Int: 154 ms? QRS Dur: 104 ms QT Int: 372 ms ? ? ? P-R-T Axes: 078 000 085 degrees QTc Int: 457 ms ? Normal sinus rhythm Incomplete right bundle branch block Nonspecific T wave abnormality When compared with ECG of 04-AUG-2021 17:08, Nonspecific T wave abnormality now evident in Lateral leads Discharge Plan Discharge Clinical Impression: COPD (chronic obstructive pulmonary disease), Back strain Patient Disposition: Home, Self-Care Instructions: COPD (Chronic Obstructive Pulmonary Disease) (DC), Low Back Strain (ED), Chronic Lung Disease and Infection Prevention (ED) Additional Instructions: Follow up with your primary care provider. Return to the emergency department immediately if your symptoms worsen or if you develop any dizziness, shortness o f breath, difficulty breathing, chest pain, blurry vision, loss of vision, nausea, vomiting, abdominal pain, fever, chills, back pain, or any other complaints. Prescriptions: New cyclobenzaprine 10 mg tablet 10 mg PO TID PRN (Reason: back pain) 7 Days Qty: 21 0RF No Action azithromycin 500 mg tablet See Rx Instructions .ROUTE .COMPLEX Qty: 6 0RF Rx Instructions: take 500 mg today (day 1), then 250 mg for 4 days (days 2-5) metoclopramide HCl [Reglan] 10 mg tablet 10 mg PO Q6H PRN (Reason: nausea and vomiting) Qty: 14 0RF oxycodone 5 mg tablet 5 mg PO Q4H PRN (Reason: pain) Qty: 14 0RF Rx Instructions: Patient may request partial fill prednisone 20 mg tablet 60 mg PO DAILY 4 Days Qty: 12 0RF meloxicam [Mobic] 15 mg tablet 15 mg PO DAILY Qty: 10 0RF albuterol sulfate 2.5 mg /3 mL (0.083 %) solution for nebulization 2.5 mg inhalation Q4-6H PRN (Reason: shortness of breath or wheezing) Qty: 25 0RF albuterol sulfate 90 mcg/actuation HFA aerosol inhaler 2 puff inhalation Q4-6H PRN (Reason: shortness of breath or wheezing) Qty: 8.5 0RF prednisone 20 mg tablet 60 mg PO DAILY 5 Days Qty: 15 0RF morphine 15 mg tablet 15 mg PO Q4-6H PRN (Reason: pain) Qty: 10 0RF Rx Instructions: The patient may ask for partial fill Stiolto Respimat 2.5-2.5 mcg/actuation mist 2 puff inhalation DAILY 30 Days Qty: 1 6RF Referrals: Vince Doran MD [Primary Care Provider] - 2 days Simon Goyal MD [Physician] - 2 days Interventions: ED Discharge Assessment Last Done: 10/10/21 11:10 Discharge Date/Time: 10/10/21 11:11 Print Language: Japanese
[2021-10-10 08:18] VITALS: BP 132/85; PULSE 89; RESP 19; O2SAT 94; BMI 32.3
[2021-10-10] MEDS: Albuterol/Iprat 2.5/0.5MG 3 ML AMPUL.NEB INHALE (08:29)
[2021-10-10] MEDS: dexAMETHasone sod phosphate 10 MG/ML VIAL IVPUSH (08:29)
[2021-10-10] MEDS: Morphine Sulfate 2 MG/ML CARTRIDGE IVPUSH (08:29)
--- NOTE | 2021-10-10 08:56 | PC.NURSE ---
Pt is A&Ox4, c/o CP that radiates into the back along with tightness from his COPD, used inhaler at home this morning with no relief. Has neb treatments at home but did not use one this morning. Insp and Exp wheezes throughout, medicated as per MAR orders with +effect. Call hernández within reach. Will continue to monitor.
[2021-10-10 09:18] LABS: MANUAL DIFF FLAG NO
[2021-10-10 09:21] LABS: Basophils Percent Auto 0.5 % (0-2); Eosinophils Absolute Auto 0.4 X10*3/uL (0.0-0.4); Eosinophils Percent Auto 5.9 % (0-4); Hematocrit 33.4 % (42.0-52.0); Hemoglobin 10.8 g/dl (14.0-18.0); Imm Gran Abs Auto 0.03 X10*3/uL (0.00-0.03); Imm Gran Pct Auto 0.5 % (0.0-0.4); Lymphocytes Absolute Auto 1.2 X10*3/uL (1.2-4.9); Mean Corpuscular HGB Conc 32.3 g/dl (31.0-36.0); Mean Corpuscular Hemoglobin 28.4 pg (27.0-33.0); Mean Corpuscular Volume 87.9 fL (80.0-98.0); Mean Platelet Volume 8.3 fL (9.4-12.4); Monocytes Absolute Auto 0.6 X10*3/uL (0.1-1.2); Monocytes Percent Auto 8.9 % (2-11); Neutrophils Absolute Auto 4.2 x10*3/uL (2.0-8.3); Neutrophils Percent Auto 65.2 % (45-73); Platelet Count 358 X10*3/uL (160-400); Red Cell Distribution Width 14.5 % (11.0-16.0); White Blood Count 6.4 X10*3/uL (4.8-10.8)
[2021-10-10 09:34] LABS: IDNOW Serial# 08D9AD1C; Influenza A Negative (Negative); Influenza B2 Negative (Negative)
[2021-10-10 09:35] LABS: Alanine Aminotransferase 25 U/L (0-40); Albumin Level 3.6 g/dL (3.5-5.0); Alkaline Phosphatase 77 U/L (39-117); Anion Gap 11 (12-20); Aspartate Amino Transferase 20 U/L (5-37); Bilirubin Total 0.4 mg/dL (0.0-1.0); Blood Urea Nitrogen 19 mg/dL (9-16); Calcium 8.5 mg/dL (8.4-10.2); Carbon Dioxide 26 mmol/L (22-29); Chloride 107 mmol/L (96-108); Creatinine Clr Calc Pharmacy 85.6; Estimated Glomerular Filt Rate > 60; Glucose Random 109 mg/dL (60-115); Potassium 3.8 mmol/L (3.3-5.1); Sodium 140 mmol/L (135-145); Total Protein 6.5 g/dL (6.5-8.0)
[2021-10-10] MEDS: LORazepam 2 MG/ML VIAL IVPUSH (09:35)
[2021-10-10 09:39] LABS: Troponin-I High Sensitivity < 3.5 ng/L (<3.5-35.0)
[2021-10-10 09:58] LABS: Appearance Urine CLEAR; Color Urine YELLOW; Glucose Urine UA NEG (NEG); Leukocyte Esterase Urine NEG (NEG); Nitrite Urine NEG (NEG); Specific Gravity - Urine 1.015 (1.005-1.025); Urine Blood NEG (NEG); Urine Ketones NEG (NEG); Urine Protein NEG (NEG-TRACE)
== END 2021-10-10 11:11 | disposition home or self-care (01) ==
PROVIDERS: Physician Assistant Medical; Emergency Provider Emergency Medicine; PCP Internal Medicine
DX: J44.9 Chronic obstructive pulmonary disease, unspecified (principal); R07.89 Other chest pain; M54.50 Low back pain, unspecified; R06.2 Wheezing; F14.90 Cocaine use, unspecified, uncomplicated; F12.90 Cannabis use, unspecified, uncomplicated; Z71.6 Tobacco abuse counseling; F17.200 Nicotine dependence, unspecified, uncomplicated; Z79.899 Other long term (current) drug therapy
CPT/HCPCS: 71046; 80053; 81003; 84484; 85025; 87502; 93005; 96374; 96376; 99284; J1100; J2060; J2270

== ENCOUNTER 2021-11-22 15:10 | Inpatient (IN) | payer OTHER, MEDICAID, SELFPAY ==
[2021-11-22] VITALS (8 sets, daily range): BP systolic 117–157; BP diastolic 74–86; PULSE 86–103; RESP 15–18; TEMP 36.6–36.9; O2SAT 91–97; BMI 27.4
--- NOTE | ~2021-11-22 | XR_ITS ---
EXAMINATION: XR CHEST CLINICAL INFORMATION: Discomfort chest and back COMPARISON: 11/22/2021 and 10/10/2021 also 06/12/2019 TECHNIQUE: 2 views of the chest were obtained. FINDINGS: There is no acute finding. The cardiac silhouette is within normal limits. Lung grant are grossly clear. There is no infiltrate. There is no effusion. The hilar structures are felt to be comparable. Undulating posterior hemidiaphragms bilaterally show no change from most recent previous XR/XR chest 2V IMPRESSION: No acute finding.
--- NOTE | ~2021-11-22 | XR_ITS ---
EXAMINATION: XR CHEST CLINICAL INFORMATION: Chest pain, shortness of breath COMPARISON: Chest radiographs 10/10/2021, 07/18/2021, CT chest and abdomen 06/17/2021. TECHNIQUE: Portable upright AP x2 views view of the chest are obtained. FINDINGS: No pneumothorax, pleural reaction, airspace consolidation, or effusion. No groundglass opacity. The costophrenic sulci are clear. The heart is normal in size. Again, there is a convexity at the left posterior medial base corresponding to a fat-containing Bochdalek hernia on CT. The hilar and mediastinal contours and visualized bony structures are unremarkable. XR/XR chest 1V IMPRESSION: No acute intrathoracic disease.
--- NOTE | 2021-11-22 15:20 | ECG_ITS ---
Test Reason : CHEST PAIN Blood Pressure : / mmHG Vent. Rate : 088 BPM Atrial Rate : 088 BPM P-R Int : 158 ms QRS Dur : 098 ms QT Int : 372 ms P-R-T Axes : 085 007 077 degrees QTc Int : 450 ms Normal sinus rhythm Incomplete right bundle branch block Borderline ECG When compared with ECG of 10-OCT-2021 08:02, No significant change was found Referred By: Scooby Brooks Electronically Signed By:AKASH SUAREZ MD
--- NOTE | 2021-11-22 15:24 | ED_ITS ---
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 Started about 5 hours ago before arrival with coughing with sputum, chest pain which is worsening with coughing, generalized body ache, chills but no fever, no sick contact, no recent travel. Patient received COVID vaccination x3. Patient is complaining of a bilateral chest wall pain increased with coughing. Related Data Previous Rx's Medication Instructions Recorded azithromycin 500 mg tablet See Rx Instructions .ROUTE 05/13/20 .COMPLEX #6 tab metoclopramide HCl 10 mg tablet 10 mg PO Q6H PRN #14 tab 04/21/21 (Reglan) oxycodone 5 mg tablet 5 mg PO Q4H PRN #14 tab 04/21/21 meloxicam 15 mg tablet (Mobic) 15 mg PO DAILY #10 tab 06/07/21 prednisone 20 mg tablet 60 mg PO DAILY 4 Days #12 tab 06/07/21 albuterol sulfate 2.5 mg (3 mL) INHALATION Q4-6H PRN 07/07/21 #25 ml albuterol sulfate 90 mcg/actuation 2 puff INHALATION Q4-6H PRN #8.5 g 07/07/21 aerosol inhaler morphine 15 mg immediate release 15 mg PO Q4-6H PRN #10 tab 07/07/21 tablet prednisone 20 mg tablet 60 mg PO DAILY 5 Days #15 tab 07/07/21 tiotropium 2.5 mcg-olodaterol 2.5 2 puff INHALATION DAILY 30 Days #1 08/13/21 mcg/actuation mist for inhalation ea (Stiolto Respimat) cyclobenzaprine 10 mg tablet 10 mg PO TID PRN 7 Days #21 tab 10/10/21 Allergies Allergy/AdvReac Type Severity Reaction Status Date / Time ibuprofen Allergy Intermediate Stomach Verified 10/10/21 08:16 Upset penicillin V Allergy Intermediate rash Verified 09/08/21 13:49 Review of Systems Review of Systems: All other systems are reviewed and are negative Constitutional: Reports as per HPI and Reports no additional constitutional complaints Eyes: Reports as per HPI and Reports no additional eye complaints Reports system reviewed and no additional complaints, except as documented Cardiovascular: Reports as per HPI and Reports no additional cardiovascular complaints Respiratory: Reports as per HPI and Reports no additional respiratory complaints Gastrointestinal: Reports as per HPI and Reports no additional gastrointestinal complaints Genitourinary: Reports no additional female genitourinary complaints Musculoskeletal: Reports no additional musculoskeletal complaints Skin/Breast: Reports system reviewed and no additional complaints, except as docu Psychiatric: Reports no additional psychiatric complaints Endocrine: Reports no additional endocrine complaints Hematologic/Lymphatic: Reports no additional hematologic/lymphatic complaints Allergic/Immunologic: Reports no additional allergic/immunologic complaints Reports system reviewed and no additional complaints, except as documented and Reports Abnormal speech present [facility] Past Medical History Medical History Anxiety Asthma Depression Emphysema of lung Surgical History Hx of cholecystectomy Social History Social History Alcohol intake: never Patient Tobacco Use Status: Current someday Tobacco user Substance Use Type: Crack/Cocaine and Marijuana Advance Directives: No Advance Directives Information Provided: No Physical Exam Vital Signs: Vital Signs: Last Vital Signs Temp 98.5 F 11/22/21 15:23 Pulse 95 11/22/21 15:23 Resp 18 11/22/21 15:23 BP 148/86 H 11/22/21 15:23 Pulse Ox 95 11/22/21 15:23 BMI result Body Mass Index 27.4 Vital signs have been reviewed as appeared to be correct. Blood pressure normal. Heart rate normal. Respiration rate normal. Temperature normal. Oxygen saturation normal. Appearance: Alert. Oriented X3. No acute distress. Head: Normal external exam. Normocephalic. Atraumatic. No Thrasher signs noted. No raccoon eyes noted Eyes: PERRLA. EOMI. Conjunctiva and sclera normal. Eyelids normal. ENT: TM's Normal. Pharynx normal. Uvula midline. Moist mucous membranes. No trismus noted. No drooling noted. No muffled voice noted. Neck: Normal inspection. Neck supple. FROM. No adenopathy. Thyroid Normal. No meningeal signs. No neck mass noted. CVS: Normal heart rate and rhythm. Heart sound normal. No murmurs noted. Pulses normal throughout. Respiratory: No respiratory distress. Painless inspiration. Breath sounds normal. Bilateral diffuse expiratory wheezing with prolonged expiration. Chest nontender. No accessory muscle usage noted or decreased air movement noted. Abdomen: Soft and nontender. Bowel sounds normal in all 4 quadrants. No distention noted. No organomegaly noted. No visible injury noted. Back: No CVA tenderness. Full range of motion noted. Skin: Skin warm and dry. Normal skin color. Normal skin turgor. No rashes/lesions/lacerations noted. Extremities: No lower extremity edema. Extremities exhibit normal range of motion. Extremities nontender. Neuro: Oriented X 3. Cranial nerve exam: II-XII are grossly intact No motor deficit. No sensory deficit. Reflexes normal. Course Course Course Narrative: Assessment and plan. 56-year-old male history of COPD and smoker came in with shortness of breath/chest pain started about 5 hours before arrival. Chest x-ray/labs/COVID/flu testing pending, signed out to Dr. Rodriguez [facility] - Chest Pain Lab Data Result diagrams: 11/22/21 15:38 11/22/21 15:38 Discharge Plan Discharge Clinical Impression: COPD (chronic obstructive pulmonary disease) Prescriptions: No Action azithromycin 500 mg tablet See Rx Instructions .ROUTE .COMPLEX Qty: 6 0RF Rx Instructions: take 500 mg today (day 1), then 250 mg for 4 days (days 2-5) metoclopramide HCl [Reglan] 10 mg tablet 10 mg PO Q6H PRN (Reason: nausea and vomiting) Qty: 14 0RF oxycodone 5 mg tablet 5 mg PO Q4H PRN (Reason: pain) Qty: 14 0RF Rx Instructions: Patient may request partial fill prednisone 20 mg tablet 60 mg PO DAILY 4 Days Qty: 12 0RF meloxicam [Mobic] 15 mg tablet 15 mg PO DAILY Qty: 10 0RF albuterol sulfate 2.5 mg /3 mL (0.083 %) solution for nebulization 2.5 mg inhalation Q4-6H PRN (Reason: shortness of breath or wheezing) Qty: 25 0RF albuterol sulfate 90 mcg/actuation HFA aerosol inhaler 2 puff inhalation Q4-6H PRN (Reason: shortness of breath or wheezing) Qty: 8.5 0RF prednisone 20 mg tablet 60 mg PO DAILY 5 Days Qty: 15 0RF morphine 15 mg tablet 15 mg PO Q4-6H PRN (Reason: pain) Qty: 10 0RF Rx Instructions: The patient may ask for partial fill cyclobenzaprine 10 mg tablet 10 mg PO TID PRN (Reason: back pain) 7 Days Qty: 21 0RF Stiolto Respimat 2.5-2.5 mcg/actuation mist 2 puff inhalation DAILY 30 Days Qty: 1 6RF
[2021-11-22] MEDS: Magnesium Sulfate/H2O 2 GM/50 ML PIGGYBACK IV (15:37)
[2021-11-22] MEDS: methylPREDNISolone Sod Succ 125 MG/2 ML VIAL IVPUSH (15:37)
[2021-11-22 15:47] LABS: MANUAL DIFF FLAG NO
[2021-11-22 16:05] LABS: Anion Gap 11 (12-20); Blood Urea Nitrogen 8 mg/dL (9-16); Calcium 8.9 mg/dL (8.4-10.2); Carbon Dioxide 28 mmol/L (22-29); Chloride 106 mmol/L (96-108); Creatinine Clr Calc Pharmacy 96.7; Estimated Glomerular Filt Rate > 60; Glucose Random 88 mg/dL (60-115); Lipase 21 U/L (8-78); Potassium 3.7 mmol/L (3.3-5.1); Sodium 141 mmol/L (135-145)
[2021-11-22] MEDS: Acetaminophen 325 MG TABLET 650 MG PO (16:08)
[2021-11-22 16:09] LABS: Troponin-I High Sensitivity < 3.5 ng/L (<3.5-35.0)
[2021-11-22 16:14] LABS: Basophils Percent Auto 0.5 % (0-2); Eosinophils Absolute Auto 0.4 X10*3/uL (0.0-0.4); Eosinophils Percent Auto 6.5 % (0-4); Hematocrit 36.5 % (42.0-52.0); Hemoglobin 12.1 g/dl (14.0-18.0); Imm Gran Abs Auto 0.02 X10*3/uL (0.00-0.03); Imm Gran Pct Auto 0.3 % (0.0-0.4); Lymphocytes Absolute Auto 2.2 X10*3/uL (1.2-4.9); Lymphocytes Percent Auto 37.2 % (20-40); Mean Corpuscular HGB Conc 33.2 g/dl (31.0-36.0); Mean Corpuscular Hemoglobin 28.4 pg (27.0-33.0); Mean Corpuscular Volume 85.7 fL (80.0-98.0); Monocytes Absolute Auto 0.5 X10*3/uL (0.1-1.2); Monocytes Percent Auto 8.3 % (2-11); Neutrophils Absolute Auto 2.7 x10*3/uL (2.0-8.3); Neutrophils Percent Auto 47.2 % (45-73); Platelet Count 411 X10*3/uL (160-400); Red Blood Count 4.26 X10*6/uL (4.60-5.80); Red Cell Distribution Width 14.4 % (11.0-16.0); White Blood Count 5.8 X10*3/uL (4.8-10.8)
[2021-11-22 16:27] LABS: Influenza A PCR NEGATIVE (Negative); Influenza B PCR NEGATIVE (Negative); Resp Syncy Virus RNA Qual PCR NEGATIVE (Negative); SARS COV2 PCR INHOUSE NEGATIVE (Negative)
[2021-11-22] MEDS: Albuterol/Iprat 2.5/0.5MG 3 ML AMPUL.NEB INHALE (16:40)
[2021-11-22] MEDS: Albuterol Sulfate (0.083%) 2.5 MG/3 ML VIAL.NEB 5 MG INHALE (16:40)
[2021-11-22] MEDS: guaiFEN/Codeine SF 200/20/10ML 10 ML LIQUID PO (17:35)
[2021-11-22 17:38] LABS: Appearance Urine CLEAR; Color Urine YELLOW; Glucose Urine UA NEG (NEG); Leukocyte Esterase Urine NEG (NEG); Nitrite Urine NEG (NEG); Specific Gravity - Urine >= 1.030 (1.005-1.025); UACC Culture Trigger NO; Urine Blood TRACE (NEG); Urine Ketones 5 MG/DL (NEG); Urine Protein NEG (NEG-TRACE)
[2021-11-22 17:56] LABS: Amorphous Sediment Urine 1+ /LPF; Calcium Oxalate Crystals Urine TRACE /LPF; Mucus Urine 4+ /LPF; RBC Urine 0-2 /HPF (0); Renal Epithelial Cells Urine TRACE /LPF; Squamous Epithelial Cell Urine TRACE /LPF; WBC Urine 0-2 /HPF (0-4)
[2021-11-22] MEDS: Ketorolac Tromethamine 30 MG/ML VIAL IVPUSH (18:05)
[2021-11-22 20:26] LABS: Amphetamine Screen Urine Not Detected (Not Detect); Barbiturates, Urine Not Detected (Not Detect); Benzodiazepines Screen Urine Not Detected (Not Detect); Cannabinoid Screen Urine POSITIVE (Not Detect); Cocaine Screen Urine POSITIVE (Not Detect); Fentanyl, urine Not Detected (Not Detect); Opiate Screen Urine POSITIVE (Not Detect); Phencyclidine Screen Urine Not Detected (Not Detect)
[2021-11-22] MEDS: oxyCODONE HCl Immed Release 5 MG TABLET 10 MG PO (20:34)
--- NOTE | 2021-11-22 21:29 | PC.NURSE ---
Referral made to [facility], awaiting consult
[2021-11-23] VITALS (8 sets, daily range): BP systolic 119–142; BP diastolic 68–84; PULSE 90–104; RESP 15–19; TEMP 36.4–37; O2SAT 93–98
--- NOTE | 2021-11-23 01:11 | PC.NURSE ---
[facility] at bedside
[2021-11-23] MEDS: Acetaminophen 325 MG TABLET 650 MG PO ×3 (02:43→15:38)
[2021-11-23] MEDS: Benzonatate 100 MG CAPSULE 200 MG PO (09:08)
--- NOTE | 2021-11-23 09:59 | PC.NURSE ---
T/c from Donna, with [facility] who reported that patient accepted to [facility]. Dr. Chisholm will be his provider.
[2021-11-23] MEDS: oxyCODONE HCl Immed Release 5 MG TABLET PO (10:19)
[2021-11-23] MEDS: Albuterol/Iprat 2.5/0.5MG 3 ML AMPUL.NEB INHALE ×2 (10:26→21:37)
--- NOTE | 2021-11-23 12:41 | PHA.MEDREC ---
Pharmacy Consult ? Medication Reconciliation Pharmacy has completed the medication reconciliation. Patient did not know medication because he use medboxes at [facility]. Received list from the pharmacy. Patient confirmed inhalers. Fany Conrad, MayteD
[2021-11-23] MEDS: QUEtiapine Fumarate 100 MG TABLET PO (15:38)
[2021-11-23] MEDS: clonazePAM 1 MG TABLET PO (15:38)
--- NOTE | 2021-11-23 17:19 | PC.ADMIT ---
Patient is 56 year old male known to this unit who presented to [facility] secondary to SI with plan to overdose on cocaine via injection. Patient arrived on unit via WC from [facility] dressed in [employer]. Appears stated age. Patient endorses increasing depression and hopelessness as well as 2 prior suicide attempts by toxic ingestion. Patient is primarily Taiwanese speaking. TAYLOR's were signed with a Taiwanese speaking staff member. Patient has undergone recent stressor of leaving him and moving to [place]. Patient traveled to [place] where he found living with boyfriend. Upon return to this area he began using cocaine with thoughts of injecting cocaine until he . Patient has medical history of COPD, Asthma, Hyperlipidemia and chronic back pain. Patient has stable housing and is able to return. Upon admission patient was alert and oriented in all spheres. Memory appears intact. Patient states he is seeing shadows out of the corners of his eyes and is referring to them as VH. Patient is comfortable on unit. PCP will be notified of admission 11/24/21 during business hours.
[2021-11-23] MEDS: PARoxetine HCL 20 MG TABLET PO (18:17)
[2021-11-23] MEDS: Albuterol Sulfate 90 MCG 8 GM INHALER 2 PUFF INHALE (18:18)
[2021-11-23] MEDS: Mirtazapine 30 MG TABLET PO (20:19)
[2021-11-23] MEDS: Benzonatate 100 MG CAPSULE PO (20:19)
[2021-11-23] MEDS: QUEtiapine Fumarate 300 MG TABLET PO (20:19)
[2021-11-23] MEDS: Atorvastatin Calcium 40 MG TABLET PO (20:20)
[2021-11-23] MEDS: Ferrous Sulfate 324 MG TABLET.DR 325 MG PO (20:24)
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
[2021-11-24] MEDS: Omeprazole 40 MG CAPSULE.DR PO (06:32)
[2021-11-24] MEDS: PARoxetine HCL 20 MG TABLET PO (08:14)
[2021-11-24] MEDS: QUEtiapine Fumarate 100 MG TABLET PO (08:14)
[2021-11-24] MEDS: clonazePAM 1 MG TABLET PO ×2 (08:17→16:58)
[2021-11-24 08:19] VITALS: BP 112/72; PULSE 97; RESP 18; TEMP 36.4; O2SAT 96
[2021-11-24 09:04] LABS: Estimated Average Glucose 117 mg/dL; Hemoglobin A1c % 5.7 %
[2021-11-24 09:27] LABS: Alanine Aminotransferase 13 U/L (0-40); Albumin Level 3.8 g/dL (3.5-5.0); Alkaline Phosphatase 100 U/L (39-117); Anion Gap 11 (12-20); Aspartate Amino Transferase 12 U/L (5-37); Bilirubin Total 0.2 mg/dL (0.0-1.0); Blood Urea Nitrogen 12 mg/dL (9-16); Calcium 9.3 mg/dL (8.4-10.2); Carbon Dioxide 28 mmol/L (22-29); Chloride 106 mmol/L (96-108); Cholesterol 159 mg/dL; Creatinine Clr Calc Pharmacy 87.5; Estimated Glomerular Filt Rate > 60; Glucose Fasting 93 mg/dL (60-99); HDL Cholesterol 43 mg/dL; LDL Cholesterol Calculated 101 mg/dl; Magnesium 2.2 mg/dL (1.6-2.6); Potassium 4.6 mmol/L (3.3-5.1); Sodium 140 mmol/L (135-145); Total Protein 6.9 g/dL (6.5-8.0); Triglycerides 76 mg/dL
[2021-11-24] MEDS: Benzonatate 100 MG CAPSULE PO (09:27)
[2021-11-24] MEDS: Albuterol Sulfate 90 MCG 8 GM INHALER 2 PUFF INHALE ×2 (09:27→19:46)
[2021-11-24 09:48] LABS: Free T4 (Free Thyroxine) 1.01 ng/dL (0.71-1.85); Thyroid Stimulating Hormone 2.34 uIU/mL (0.32-4.0)
[2021-11-24 09:58] LABS: Folate 9.6 ng/mL (> or = 4.0); Vitamin B12 1043 pg/mL (200-900)
[2021-11-24] MEDS: Albuterol/Iprat 2.5/0.5MG 3 ML AMPUL.NEB INHALE (11:21)
[2021-11-24 11:23] VITALS: PULSE 91; RESP 16; O2SAT 96
--- NOTE | 2021-11-24 16:22 | HO.PSYCHPN ---
Subjective Subjective Date of Service: 11/24/21 Reason For Visit: Recurrent major depression, cocaine use disorder Subjective Notes: Conditional Voluntary Healthcare Proxy: No Guardianship: No Medical Problems Affecting Mental Status: No Interim History: It is time to get clean. Pt reports a lifelong hx of addictive illness with recent break-up with with increase thoughts of SI, increase in sx of depression, anxiety and thoughts of self-harming behaviors. By history Klonopin, Seroquel have been given by a psychiatrist in [place]. Pt has housing, reports a hx of seven admissions to psychiatry, has a therapist in [place] but it is too far to go. Psychiatrist is virtual. Hx of 5-6 suicide attempts via OD, mostly pills, recently cocaine. Denies hx of william, hypomania, denies perceptual alterations however reports a history. Denies current SI-hoping to utilized milieu, med eval and consultation to improve how he is feeling. Denies family history and reports he works with [facility], Dr. Mendoza and their pharmacy for his medications. Reports sleep disturbance, feeling hopeless, helpless and overpowered by addiction. Medication Compliance: Intermittent Side effects from medications: No Attending Groups: No Review of Systems Acute medical concerns: No Medical Review of Systems: unchanged Review of Systems: asthma Review of Systems Reports behavioral changes Psychiatric: Reports abnormal sleep pattern, Reports anxiety, Reports behavioral changes, Reports change in appetite, Reports depression, Reports difficulty concentrating, Reports hopelessness, Reports anhedonia and Reports suicidal ideation Mental Status Exam Mental Status Exam Patient Appearance: Appropriate Patient Orientation: Person, Place, Time and Situation Level of Consciousness: Alert Patient Behavior: Appropriate, Talkative, Cooperative and Good Eye Contact Mood Description: Depressed Affect Description: Flat Patient Cognition Impaired: No Ability to Follow Directions: Good Speech Pattern: Spontaneous Speech Memory Description: Intact and Episodic Impaired Hallucinations: None Delusions: Not Present Thought Process: Rumination Thought Content: positive for Circumstantial Depressive Symptoms: Increased Anxiety, Difficulty Sleeping, Hopelessness, Thoughts of /Suicide and Difficulty Concentrating Judgement: Fair Diagnostics Vital Signs (24Hr): Vital Signs - 24 hr 11/23/21 21:37 11/24/21 08:19 11/24/21 11:23 Temperature 97.6 F Pulse Rate 101 H 97 91 Respiratory Rate 16 18 16 Blood Pressure 112/72 Pulse Oximetry 96 BMI result Body Mass Index 27.4 Labs Results: 11/22/21 15:38 11/24/21 08:23 Labs: Laboratory Results - last 48 hr 11/22/21 11/22/21 11/22/21 15:38 17:24 19:59 Sodium Potassium Chloride Carbon Dioxide Anion Gap BUN Creatinine Estim Creat Clear Calc Estimated GFR Fasting Glucose Estimat Average Glucose Hemoglobin A1c % Calcium Magnesium Total Bilirubin AST ALT Alkaline Phosphatase Total Protein Albumin Triglycerides Cholesterol LDL Cholesterol, Calc HDL Cholesterol Vitamin B12 Folate TSH Free T4 Urine Color YELLOW Urine Appearance CLEAR Urine pH 7.0 Ur Specific [place] >= 1.030 H Urine Protein NEG Urine Glucose (UA) NEG Urine Ketones 5 Urine Blood TRACE Urine Nitrite NEG Ur Leukocyte Esterase NEG Urine RBC 0-2 Urine WBC 0-2 Ur Squamous Epith Cells TRACE Ur Renal Epithelial Cell TRACE Calcium Oxalate Crystal TRACE Amorphous Sediment 1+ Urine Bacteria NONE Urine Mucus 4+ Urine Opiates Screen POSITIVE H Urine Fentanyl Screen Not Detected Ur Barbiturates Screen Not Detected Ur Phencyclidine Scrn Not Detected Ur Amphetamines Screen Not Detected U Benzodiazepines Scrn Not Detected Urine Cocaine Screen POSITIVE H U Marijuana (THC) Screen POSITIVE H Influenza Type A (PCR) NEGATIVE Influenza Type B (PCR) NEGATIVE RSV RNA Qual (PCR) NEGATIVE SARS-CoV-2 RNA (RT-PCR) NEGATIVE 11/24/21 11/24/21 11/24/21 08:23 08:23 08:23 Sodium 140 Potassium 4.6 D Chloride 106 Carbon Dioxide 28 Anion Gap 11 L BUN 12 Creatinine 0.84 Estim Creat Clear Calc 87.5 Estimated GFR > 60 Fasting Glucose 93 Estimat Average Glucose 117 Hemoglobin A1c % 5.7 Calcium 9.3 Magnesium 2.2 Total Bilirubin 0.2 AST 12 ALT 13 Alkaline Phosphatase 100 D Total Protein 6.9 Albumin 3.8 Triglycerides 76 Cholesterol 159 LDL Cholesterol, Calc 101 HDL Cholesterol 43 Vitamin B12 1043 H Folate 9.6 TSH 2.34 Free T4 1.01 Urine Color Urine Appearance Urine pH Ur Specific [place] Urine Protein Urine Glucose (UA) Urine Ketones Urine Blood Urine Nitrite Ur Leukocyte Esterase Urine RBC Urine WBC Ur Squamous Epith Cells Ur Renal Epithelial Cell Calcium Oxalate Crystal Amorphous Sediment Urine Bacteria Urine Mucus Urine Opiates Screen Urine Fentanyl Screen Ur Barbiturates Screen Ur Phencyclidine Scrn Ur Amphetamines Screen U Benzodiazepines Scrn Urine Cocaine Screen U Marijuana (THC) Screen Influenza Type A (PCR) Influenza Type B (PCR) RSV RNA Qual (PCR) SARS-CoV-2 RNA (RT-PCR) Imaging Radiology Impressions: ITS Impressions Chest X-Ray 11/22/21 15:43 IMPRESSION: No acute intrathoracic disease. Medications Medications Current Medications Acetaminophen (Acetaminophen 325 Mg Tablet) 650 mg PO Q6H PRN PRN Reason: Headache/Pain Mild Scale (1-3) Last Admin: 11/23/21 15:38 Dose: 650 mg Documented by: Al Hydroxide/Mg Hydroxide (Magnesium Hydrox/Alum Hydrox 30 Ml Oral.Susp) 30 ml PO Q6H PRN PRN Reason: Heartburn/Nausea Albuterol Sulfate (Albuterol Sulfate 90 Mcg 8 Gm Inhaler) 2 puff INHALE Q4H PRN PRN Reason: shortness of breath or wheezing Last Admin: 11/24/21 09:27 Dose: 2 puff Documented by: Albuterol/Ipratropium (Albuterol/Iprat 2.5/0.5mg 3 Ml Ampul.Neb) 3 ml INHALE TID PRN PRN Reason: Shortness of Breath Last Admin: 11/24/21 11:21 Dose: 3 ml Documented by: Atorvastatin Calcium (Atorvastatin Calcium 40 Mg Tablet) 40 mg PO BEDTIME ADRIEN Last Admin: 11/23/21 20:20 Dose: 40 mg Documented by: Benzonatate (Benzonatate 100 Mg Capsule) 100 mg PO TID PRN PRN Reason: Cough Last Admin: 11/24/21 09:27 Dose: 100 mg Documented by: Clonazepam (Clonazepam 1 Mg Tablet) 1 mg PO DAILY PRN PRN Reason: anxiety Last Admin: 11/24/21 08:17 Dose: 1 mg Documented by: Cyclobenzaprine HCl (Cyclobenzaprine Hcl 5 Mg Tablet) 5 mg PO BID PRN PRN Reason: Back Pain Ferrous Sulfate (Ferrous Sulfate 324 Mg Tablet.Dr) 325 mg PO BEDTIME ADRIEN Last Admin: 11/23/21 20:24 Dose: 324 mg Documented by: Hydroxyzine HCl (Hydroxyzine Hcl 25 Mg Tablet) 25 mg PO BEDTIME PRN PRN Reason: Anxiety Magnesium Hydroxide (Milk Of Magnesia 30 Ml Oral.Susp) 30 ml PO DAILY PRN PRN Reason: Constipation Mirtazapine (Mirtazapine 30 Mg Tablet) 30 mg PO BEDTIME ADRIEN Last Admin: 11/23/21 20:19 Dose: 30 mg Documented by: Omeprazole (Omeprazole 40 Mg Capsule.) 40 mg PO DAILY@0630 [facility] Last Admin: 11/24/21 06:32 Dose: 40 mg Documented by: Paroxetine HCl (Paroxetine Hcl 20 Mg Tablet) 20 mg PO DAILY [facility] Last Admin: 11/24/21 08:14 Dose: 20 mg Documented by: Pharmacy Consult (Consult Rx Perform Med Rec) 1 each MISCELLANE ONCE PRN PRN Reason: Consult order Quetiapine Fumarate (Quetiapine Fumarate 300 Mg Tablet) 300 mg PO BEDTIME [facility] Last Admin: 11/23/21 20:19 Dose: 300 mg Documented by: Quetiapine Fumarate (Quetiapine Fumarate 100 Mg Tablet) 100 mg PO DAILY [facility] Last Admin: 11/24/21 08:14 Dose: 100 mg Documented by: Tiotropium [place] (Tiotropium [place] 18 Mcg Cap.W.Dev) 1 puff INHALE RDAILY [facility] Last Admin: 11/24/21 09:25 Dose: 1 puff Documented by: Trazodone HCl (Trazodone Hcl 50 Mg Tablet) 50 mg PO BEDTIME PRN PRN Reason: Insomnia Verapamil HCl (Verapamil Hcl Sr 100 Mg Cap24h.Pct) 100 mg PO BEDTIME [facility]; Protocol Last Admin: 11/23/21 20:20 Dose: 100 mg Documented by: Allergies Allergies Allergy/AdvReac Type Severity Reaction Status Date / Time ibuprofen Allergy Intermediate Stomach Verified 10/10/21 08:16 Upset penicillin V Allergy Intermediate rash Verified 09/08/21 13:49 Assessment & Plan Assessment & Plan (1) Recurrent major depression: Status: Acute Code(s): F33.9 - Major depressive disorder, recurrent, unspecified (2) Cocaine use disorder: Status: Acute Code(s): F14.10 - Cocaine abuse, uncomplicated (3) Opioid use disorder: Status: Acute Code(s): F11.90 - Opioid use, unspecified, uncomplicated (4) Cannabis use disorder, moderate, dependence: Status: Acute Code(s): F12.20 - Cannabis dependence, uncomplicated Plan 11/24/21: Continue current regime to assess efficacy at this time-? mood stabilizer benefit for pt. Addictions consult I spent minutes with the patient and/or on the patient floor today, greater than?50% of which was spent counseling/coordinating care. Patient educated on: diagnosis, medication risk/benefits, substance abuse, therapeutic strategies and medical condition Informed Consent: understands and further education needed Reason for contiued inpatient stay Substantial Risk for: harm to self, inability to function, rapid decompensation and med/psych decompensation
--- NOTE | 2021-11-24 16:47 | PC.NURSE ---
Patient reviewed his home medications with this principal technical writer. Patient asked if could have Clonazepam 1 po BID scheduled, also wanted Ensure BID. Phoebe principal technical writer also notified provider that the patient had been on Prednisone last week but only took Prednisone 40 mg po x 2 days and he was supposed to take the medication for 5 days.
[2021-11-24] MEDS: predniSONE 20 MG TABLET PO (16:58)
[2021-11-24 18:35] VITALS: BP 144/79; PULSE 98; TEMP 36.3; O2SAT 96
[2021-11-24 19:42] VITALS: BP 131/80; PULSE 89; RESP 20; TEMP 36.8; O2SAT 97
[2021-11-24] MEDS: Cyclobenzaprine HCl 5 MG TABLET PO (19:46)
[2021-11-24] MEDS: hydrOXYzine HCL 25 MG TABLET PO (19:47)
[2021-11-24] MEDS: Mirtazapine 30 MG TABLET PO (20:14)
[2021-11-24] MEDS: Ferrous Sulfate 324 MG TABLET.DR 325 MG PO (20:15)
[2021-11-24] MEDS: Atorvastatin Calcium 40 MG TABLET PO (20:15)
[2021-11-24] MEDS: QUEtiapine Fumarate 300 MG TABLET PO (20:15)
[2021-11-25] MEDS: traZODone HCL 50 MG TABLET PO (01:33)
[2021-11-25] MEDS: Omeprazole 40 MG CAPSULE.DR PO (06:50)
[2021-11-25 08:19] VITALS: BP 130/71; PULSE 100; TEMP 36.7; O2SAT 96
[2021-11-25] MEDS: predniSONE 20 MG TABLET PO (08:46)
[2021-11-25] MEDS: QUEtiapine Fumarate 100 MG TABLET PO (08:46)
[2021-11-25] MEDS: clonazePAM 1 MG TABLET PO ×2 (08:46→15:58)
[2021-11-25] MEDS: PARoxetine HCL 20 MG TABLET PO (08:46)
[2021-11-25] MEDS: Albuterol Sulfate 90 MCG 8 GM INHALER 2 PUFF INHALE (08:47)
[2021-11-25 08:50] VITALS: BMI 26.6
[2021-11-25 10:22] VITALS: PULSE 100; RESP 20; O2SAT 96
[2021-11-25] MEDS: Albuterol/Iprat 2.5/0.5MG 3 ML AMPUL.NEB INHALE (10:22)
[2021-11-25] MEDS: Cyclobenzaprine HCl 5 MG TABLET PO (12:31)
[2021-11-25] MEDS: cloNIDine HCL 0.1 MG TABLET PO ×2 (13:52→20:00)
--- NOTE | 2021-11-25 16:40 | P.PNPSI_ITS ---
Subjective Subjective Date of Service: 11/25/21 Reason For Visit: Recurrent major depression, cocaine use disorder Subjective Notes: Conditional Voluntary Healthcare Proxy: No Guardianship: No Medical Problems Affecting Mental Status: Yes Interim History: Reports sore throat, productive cough, headache, back pain and body aches in the context of COPD. Clonidine 0.1 mg bid prn for anxiety. Continues to report depression/anxiety sx. Medication Compliance: Yes Side effects from medications: No Attending Groups: Yes Review of Systems Acute medical concerns: No Medical Review of Systems: unchanged Review of Systems Constitutional: Reports as per HPI Mental Status Exam Mental Status Exam Patient Appearance: Appropriate Patient Orientation: Person, Place, Time and Situation Level of Consciousness: Awake and Appropriate Patient Behavior: Talkative and Cooperative Mood Description: Relaxed Speech Pattern: Clear Thought Process: Goal Oriented Judgement: Good Diagnostics Vital Signs (24Hr): Vital Signs - 24 hr 11/24/21 18:35 11/24/21 19:42 11/25/21 08:19 Temperature 97.4 F 98.3 F 98.1 F Pulse Rate 98 89 100 Respiratory Rate 20 Blood Pressure 144/79 H 131/80 130/71 Pulse Oximetry 96 97 96 11/25/21 10:22 Temperature Pulse Rate 100 Respiratory Rate 20 Blood Pressure Pulse Oximetry BMI result Body Mass Index 26.6 Labs Results: 11/22/21 15:38 11/24/21 08:23 Labs: Laboratory Results - last 48 hr 11/24/21 11/24/21 11/24/21 08:23 08:23 08:23 Sodium 140 Potassium 4.6 D Chloride 106 Carbon Dioxide 28 Anion Gap 11 L BUN 12 Creatinine 0.84 Estim Creat Clear Calc 87.5 Estimated GFR > 60 Fasting Glucose 93 Estimat Average Glucose 117 Hemoglobin A1c % 5.7 Calcium 9.3 Magnesium 2.2 Total Bilirubin 0.2 AST 12 ALT 13 Alkaline Phosphatase 100 D Total Protein 6.9 Albumin 3.8 Triglycerides 76 Cholesterol 159 LDL Cholesterol, Calc 101 HDL Cholesterol 43 Vitamin B12 1043 H Folate 9.6 TSH 2.34 Free T4 1.01 Imaging Radiology Impressions: ITS Impressions Chest X-Ray 11/22/21 15:43 IMPRESSION: No acute intrathoracic disease. Medications Medications Current Medications Acetaminophen (Acetaminophen 325 Mg Tablet) 650 mg PO Q6H PRN PRN Reason: Headache/Pain Mild Scale (1-3) Last Admin: 11/23/21 15:38 Dose: 650 mg Documented by: Al Hydroxide/Mg Hydroxide (Magnesium Hydrox/Alum Hydrox 30 Ml Oral.Susp) 30 ml PO Q6H PRN PRN Reason: Heartburn/Nausea Albuterol Sulfate (Albuterol Sulfate 90 Mcg 8 Gm Inhaler) 2 puff INHALE Q4H PRN PRN Reason: shortness of breath or wheezing Last Admin: 11/25/21 08:47 Dose: 2 puff Documented by: Albuterol/Ipratropium (Albuterol/Iprat 2.5/0.5mg 3 Ml Ampul.Neb) 3 ml INHALE TID PRN PRN Reason: Shortness of Breath Last Admin: 11/25/21 10:22 Dose: 3 ml Documented by: Atorvastatin Calcium (Atorvastatin Calcium 40 Mg Tablet) 40 mg PO BEDTIME ADRIEN Last Admin: 11/24/21 20:15 Dose: 40 mg Documented by: Benzonatate (Benzonatate 100 Mg Capsule) 100 mg PO TID PRN PRN Reason: Cough Last Admin: 11/24/21 09:27 Dose: 100 mg Documented by: Clonazepam (Clonazepam 1 Mg Tablet) 1 mg PO BID PRN PRN Reason: anxiety Last Admin: 11/25/21 15:58 Dose: 1 mg Documented by: Clonidine HCl (Clonidine Hcl 0.1 Mg Tablet) 0.1 mg PO BID PRN; Protocol PRN Reason: anxiety Last Admin: 11/25/21 13:52 Dose: 0.1 mg Documented by: Cyclobenzaprine HCl (Cyclobenzaprine Hcl 5 Mg Tablet) 5 mg PO BID PRN PRN Reason: Back Pain Last Admin: 11/25/21 12:31 Dose: 5 mg Documented by: Ferrous Sulfate (Ferrous Sulfate 324 Mg Tablet.Dr) 325 mg PO BEDTIME ADRIEN Last Admin: 11/24/21 20:15 Dose: 324 mg Documented by: Hydroxyzine HCl (Hydroxyzine Hcl 25 Mg Tablet) 25 mg PO BEDTIME PRN PRN Reason: Anxiety Last Admin: 11/24/21 19:47 Dose: 25 mg Documented by: Magnesium Hydroxide (Milk Of Magnesia 30 Ml Oral.Susp) 30 ml PO DAILY PRN PRN Reason: Constipation Mirtazapine (Mirtazapine 30 Mg Tablet) 30 mg PO BEDTIME ADRIEN Last Admin: 11/24/21 20:14 Dose: 30 mg Documented by: Omeprazole (Omeprazole 40 Mg Capsule.Dr) 40 mg PO DAILY@0630 [facility] Last Admin: 11/25/21 06:50 Dose: 40 mg Documented by: Paroxetine HCl (Paroxetine Hcl 20 Mg Tablet) 20 mg PO DAILY [facility] Last Admin: 11/25/21 08:46 Dose: 20 mg Documented by: Pharmacy Consult (Consult Rx Perform Med Rec) 1 each MISCELLANE ONCE PRN PRN Reason: Consult order Prednisone (Prednisone 20 Mg Tablet) 20 mg PO DAILY [facility] Stop: 11/29/21 18:00 Last Admin: 11/25/21 08:46 Dose: 20 mg Documented by: Quetiapine Fumarate (Quetiapine Fumarate 300 Mg Tablet) 300 mg PO BEDTIME [facility] Last Admin: 11/24/21 20:15 Dose: 300 mg Documented by: Quetiapine Fumarate (Quetiapine Fumarate 100 Mg Tablet) 100 mg PO DAILY [facility] Last Admin: 11/25/21 08:46 Dose: 100 mg Documented by: Tiotropium [place] (Tiotropium [place] 18 Mcg Cap.W.Dev) 1 puff INHALE RDAILY [facility] Last Admin: 11/25/21 08:46 Dose: 1 puff Documented by: Trazodone HCl (Trazodone Hcl 50 Mg Tablet) 50 mg PO BEDTIME PRN PRN Reason: Insomnia Last Admin: 11/25/21 01:33 Dose: 50 mg Documented by: Verapamil HCl (Verapamil Hcl Sr 100 Mg Cap24h.Pct) 100 mg PO BEDTIME [facility]; Protocol Last Admin: 11/24/21 20:14 Dose: 100 mg Documented by: Allergies Allergies Allergy/AdvReac Type Severity Reaction Status Date / Time ibuprofen Allergy Intermediate Stomach Verified 10/10/21 08:16 Upset penicillin V Allergy Intermediate rash Verified 09/08/21 13:49 Assessment & Plan Assessment & Plan (1) Opioid use disorder: Status: Acute Code(s): F11.90 - Opioid use, unspecified, uncomplicated (2) Cocaine use disorder: Status: Acute Code(s): F14.10 - Cocaine abuse, uncomplicated (3) MDD (major depressive disorder), recurrent episode, moderate: Status: Acute Code(s): F33.1 - Major depressive disorder, recurrent, moderate Plan Augustin is a 56 y.o. Male who carries a dx of MDD recurrent and cocaine use disorder. Pt presented to [facility] [place] [place] ED on 11/22/2021 due to depression x one month, SI with plan to OD on cocaine, tearful, stated he feels like hurting himself. Precipitating factors include that he recently from his , she left and moved to [place] last week, living with new . Pt was abstinent from cocaine x 10 years, relapsed last night. Pt has history of suicide attempts. Has co-morbid COPD, saturating on 95% room air. Plan: Pt does not want med changes. Recommend recovery team consult.? Q15 min safety checks, CV Monitor response to medications. Monitor for safety in the milieu. Discharge on stabilization. Patient seen. Chart reviewed. Discussed with team. Obtain collateral contact info?as needed 11/25/21- COVID testing, throat culture, pulmonary eval, throat lozenges/spray for pain. Chest X Ray 11/22 clear. No WBC increase I spent minutes with the patient and/or on the patient floor today, greater than?50% of which was spent counseling/coordinating care. Patient educated on: medical condition Informed Consent: understands and further education needed Reason for contiued inpatient stay Substantial Risk for: inability to function, rapid decompensation and med/psych decompensation
[2021-11-25 18:17] LABS: COVID-19 Test Negative (Negative)
[2021-11-25 19:12] VITALS: BP 101/57; PULSE 94; TEMP 36.4
[2021-11-25] MEDS: Mirtazapine 30 MG TABLET PO (19:52)
[2021-11-25] MEDS: QUEtiapine Fumarate 300 MG TABLET PO (19:52)
[2021-11-25] MEDS: Atorvastatin Calcium 40 MG TABLET PO (19:52)
[2021-11-25] MEDS: Ferrous Sulfate 324 MG TABLET.DR 325 MG PO (19:52)
[2021-11-25] MEDS: Throat Lozenge, Medicated LOZENGE 1 LOZENGE MUCOUS MEM (20:00)
[2021-11-26] MEDS: traZODone HCL 50 MG TABLET PO (03:35)
[2021-11-26 06:00] VITALS: BP 103/64; PULSE 97; TEMP 36.2; O2SAT 98
[2021-11-26] MEDS: Omeprazole 40 MG CAPSULE.DR PO (06:19)
[2021-11-26] MEDS: Albuterol Sulfate 90 MCG 8 GM INHALER 2 PUFF INHALE ×3 (06:20→20:25)
[2021-11-26] MEDS: QUEtiapine Fumarate 100 MG TABLET PO (08:13)
[2021-11-26] MEDS: clonazePAM 1 MG TABLET PO ×2 (08:13→16:10)
[2021-11-26] MEDS: PARoxetine HCL 20 MG TABLET PO (08:13)
[2021-11-26] MEDS: predniSONE 20 MG TABLET PO (08:13)
[2021-11-26] MEDS: Benzonatate 100 MG CAPSULE PO (08:21)
--- NOTE | 2021-11-26 09:37 | MHC.RECOVRN ---
Met with pt in [facility] on 11/25 to discuss substance use and recovery supports. Pt reports using cocaine, [place], 3 grams daily x 3 weeks. Prior to that, pt had been in recovery x 9 years. Pt denies heroin use as well as hx IV substance use. Pt reports having been on Suboxone in the past through [facility], unclear regarding reason. However, pt reports not wanting Suboxone because they take my Klonopin away. Pt educated that Suboxone is not indicated for cocaine use. Pts goal is to abstain from cocaine use and is interested in any medication that would assist with that. Pt is not interested in residential tx after dc from . Discussed other recovery supports and options. Discussed with Felecia Lou APRN. Pt agreeable to meet with [facility] to further discuss cocaine use.
[2021-11-26] MEDS: cloNIDine HCL 0.1 MG TABLET PO ×2 (10:50→20:29)
[2021-11-26 10:52] VITALS: BP 122/74; PULSE 92
[2021-11-26] MEDS: Nicotine 14 MG PATCH.TD24 TRANSDERMA (10:54)
--- NOTE | 2021-11-26 10:54 | P.CONPL_ITS ---
History of Present Illness History of Present Illness Consult date: 11/26/21 Reason for consult: cough, COPD and other (NICOTINE) Chief complaint: Recurrent major depression, cocaine use disorder Narrative: THIS 56 YEARS OLD GENTLEMAN IS ADMITTED TO THE PSYCH UNIT, FOR TREATMENT OF MAJOR DEPRESSION, AND COCAINE ABUSE. PULMONARY CONSULTATION REQUESTED BECAUSE HE HAS LONGSTANDING HISTORY OF SMOKING CIGARETTES,, COPD, AND PULMONARY NODULES. HE COMPLAINS OF INCREASED AMOUNT OF COUGH, WHICH IS MOSTLY DRY. HE HAS BEEN SMOKING ABOUT 10-12 CIGARETTES A DAY. WHILE HERE IN THE HOSPITAL HE IS NOT ALLOWED TO SMOKE, HE SHOWS WILLINGNESS TO QUIT SMOKING. AND WOULD EXCEPT USE OF NICOTINE PATCH. HE DOES HAVE DIAGNOSIS OF FOR THE ADVANCED CHRONIC OBSTRUCTIVE PULMONARY DI SEASE. HE WAS DOING WELL WITH THE USE OF STIOLTO RESPIMAT 2 PUFFS A DAY, WITH ALBUTEROL INHALER 2 PUFFS Q 4-6 HOURS P.R.N.. LATELY HIS LIST OF MEDS IS CHANGED TO SPIRIVA 1 INHALATION DAILY , FLOVENT 110 B.I.D. AND ALBUTEROL HFA 2 PUFFS Q 4-6 HOURS P.R.N.. THIS GENTLEMAN ALSO HAS MULTIPLE PULMONARY NODULES AND IS SUPPOSED TO HAVE CT SCAN ON A YEARLY BASIS, WHICH IS SCHEDULED TO BE IN JUNE 2022. Review of Systems Review of Systems: Yes all other systems are reviewed and are negative Constitutional: Constitutional: Reports as per HPI Eyes: Eyes: Reports no additional eye complaints ENT: Reports system reviewed and no additional complaints, except as documented Cardiovascular: Cardiovascular: Reports no additional cardiovascular complaints Respiratory: Respiratory: Reports as per HPI Gastrointestinal: Gastrointestinal: Reports no additional gastrointestinal complaints Genitourinary: Genitourinary: Reports no additional male genitourinary complaints Musculoskeletal: Musculoskeletal: Reports no additional musculoskeletal complaints Integumentary/Breasts: Skin/Breast: Reports system reviewed and no additional complaints, except as docu Neurologic: Reports system reviewed and no additional complaints, except as documented PMFSH Past Medical History Medical History (Updated 11/26/21 @ 11:08 by Hipolito Roberts MD) Anxiety Asthma Cannabis use disorder, moderate, dependence Cocaine use disorder Depression Emphysema of lung Nicotine dependence Opioid use disorder Recurrent major depression Surgical History Surgical History Hx of cholecystectomy Social History Social History Household Members: None Housing: Apartment Do you presently have visiting nurse or other home services: No Unable to assess alcohol history related to: Unknown Alcohol intake: never Patient Tobacco Use Status: Former Tobacco user e-Cigarette/Vaping Use: Never Used Second Hand Smoke Exposure: No Use of substances other than those prescribed or required for medical reasons: Yes Substance Use Type: Crack/Cocaine and Opiates Substance Use Frequency: Chronic Longstanding Last Used Substance: Just Prior to Admission Last Used Substance Other:: cocaine Currently Displaying Signs/Symptoms of Drug Intoxication Withdrawal: No Any prior treatment program specific to substance use: Yes (Previously known to [facility] through multiple prior assessments.) Have you been hit, kicked, punched, or otherwise hurt by someone within the past year? If so, by whom?: No Do you feel safe in your current relationship?: No Current Relationship Is there a partner from a previous relationship who is making you feel unsafe now?: No Are you made to feel afraid or neglected: No Advance Directives: No Advance Directives Information Provided: No Do you have thoughts of harming others: None Do you have a plan to hurt others: No Plan Recently lost weight without trying: No How much weight loss: Not applicable Eating poorly because of decreased appetite: No Nutrition screen score: 0 Nutrition Risks: No Nutritional Risk Poor oral hygiene: No (patient wears dentures.) service: No Sexual orientation: Straight/Heterosexual Meds Allergies Allergy/AdvReac Type Severity Reaction Status Date / Time ibuprofen Allergy Intermediate Stomach Verified 10/10/21 08:16 Upset penicillin V Allergy Intermediate rash Verified 09/08/21 13:49 Active Medications: Current Medications Acetaminophen (Acetaminophen 325 Mg Tablet) 650 mg PO Q6H PRN PRN Reason: Headache/Pain Mild Scale (1-3) Last Admin: 11/23/21 15:38 Dose: 650 mg Documented by: Al Hydroxide/Mg Hydroxide (Magnesium Hydrox/Alum Hydrox 30 Ml Oral.Susp) 30 ml PO Q6H PRN PRN Reason: Heartburn/Nausea Albuterol Sulfate (Albuterol Sulfate 90 Mcg 8 Gm Inhaler) 2 puff INHALE Q4H PRN PRN Reason: shortness of breath or wheezing Last Admin: 11/26/21 10:47 Dose: 2 puff Documented by: Albuterol/Ipratropium (Albuterol/Iprat 2.5/0.5mg 3 Ml Ampul.Neb) 3 ml INHALE TID PRN PRN Reason: Shortness of Breath Last Admin: 11/25/21 10:22 Dose: 3 ml Documented by: Atorvastatin Calcium (Atorvastatin Calcium 40 Mg Tablet) 40 mg PO BEDTIME [facility] Last Admin: 11/25/21 19:52 Dose: 40 mg Documented by: Benzocaine (Throat Lozenge, Medicated Lozenge) 1 lozenge MUCOUS MEM Q2H PRN PRN Reason: Sore Throat Last Admin: 11/25/21 20:00 Dose: 1 lozenge Documented by: Benzonatate (Benzonatate 100 Mg Capsule) 100 mg PO TID PRN PRN Reason: Cough Last Admin: 11/26/21 08:21 Dose: 100 mg Documented by: Clonazepam (Clonazepam 1 Mg Tablet) 1 mg PO BID PRN PRN Reason: anxiety Last Admin: 11/26/21 08:13 Dose: 1 mg Documented by: Clonidine HCl (Clonidine Hcl 0.1 Mg Tablet) 0.1 mg PO BID PRN; Protocol PRN Reason: anxiety Last Admin: 11/26/21 10:50 Dose: 0.1 mg Documented by: Cyclobenzaprine HCl (Cyclobenzaprine Hcl 5 Mg Tablet) 5 mg PO BID PRN PRN Reason: Back Pain Last Admin: 11/25/21 12:31 Dose: 5 mg Documented by: Ferrous Sulfate (Ferrous Sulfate 324 Mg Tablet.Dr) 325 mg PO BEDTIME [facility] Last Admin: 11/25/21 19:52 Dose: 325 mg Documented by: Fluticasone Propionate (Fluticasone Propionate 100 Mcg Blst.W.Dev) 1 puff INHALE RBID [facility] Hydroxyzine HCl (Hydroxyzine Hcl 25 Mg Tablet) 25 mg PO BEDTIME PRN PRN Reason: Anxiety Last Admin: 11/24/21 19:47 Dose: 25 mg Documented by: Magnesium Hydroxide (Milk Of Magnesia 30 Ml Oral.Susp) 30 ml PO DAILY PRN PRN Reason: Constipation Mirtazapine (Mirtazapine 30 Mg Tablet) 30 mg PO BEDTIME [facility] Last Admin: 11/25/21 19:52 Dose: 30 mg Documented by: Multi-Ingred Medicated Throat [place] (Throat [place], Medicated 20 Ml Bottle) 1 spray MUCOUS MEM Q2H PRN PRN Reason: Sore Throat Nicotine (Nicotine 14 Mg Patch.Td24) 14 mg TRANSDERMA DAILY [facility] Omeprazole (Omeprazole 40 Mg Capsule.Dr) 40 mg PO DAILY@0630 [facility] Last Admin: 11/26/21 06:19 Dose: 40 mg Documented by: Paroxetine HCl (Paroxetine Hcl 20 Mg Tablet) 20 mg PO DAILY [facility] Last Admin: 11/26/21 08:13 Dose: 20 mg Documented by: Pharmacy Consult (Consult Rx Perform Med Rec) 1 each MISCELLANE ONCE PRN PRN Reason: Consult order Prednisone (Prednisone 20 Mg Tablet) 20 mg PO DAILY [facility] Stop: 11/29/21 18:00 Last Admin: 11/26/21 08:13 Dose: 20 mg Documented by: Quetiapine Fumarate (Quetiapine Fumarate 300 Mg Tablet) 300 mg PO BEDTIME [facility] Last Admin: 11/25/21 19:52 Dose: 300 mg Documented by: Quetiapine Fumarate (Quetiapine Fumarate 100 Mg Tablet) 100 mg PO DAILY [facility] Last Admin: 11/26/21 08:13 Dose: 100 mg Documented by: Tiotropium [place] (Tiotropium [place] 18 Mcg Cap.W.Dev) 1 puff INHALE RDAILY [facility] Last Admin: 11/26/21 08:13 Dose: 1 puff Documented by: Trazodone HCl (Trazodone Hcl 50 Mg Tablet) 50 mg PO BEDTIME PRN PRN Reason: Insomnia Last Admin: 11/26/21 03:35 Dose: 50 mg Documented by: Verapamil HCl (Verapamil Hcl Sr 100 Mg Cap24h.Pct) 100 mg PO BEDTIME [facility]; Protocol Last Admin: 11/25/21 19:52 Dose: 100 mg Documented by: Home Medications Medication Instructions Recorded Confirmed Last Taken Type atorvastatin 40 mg tablet 1 tab PO BEDTIME 11/23/21 11/23/21 Unknown History clonazepam 1 mg tablet 1 tab PO DAILY PRN 11/23/21 11/23/21 Unknown History cyclobenzaprine 5 mg tablet 1 tab PO BID PRN 11/23/21 11/23/21 Unknown History ferrous sulfate 325 mg (65 mg 1 tab PO BEDTIME 11/23/21 11/23/21 Unknown History iron) tablet (FeroSul) fluticasone propionate 220 2 puff INHALATION BID 11/23/21 11/23/21 Unknown History mcg/actuation HFA aerosol inhaler (Flovent HFA) ipratropium 0.5 mg-albuterol 3 mg 1 amp INHALATION TID 11/23/21 11/23/21 Unknown History (2.5 mg base)/3 mL nebulization soln mirtazapine 30 mg tablet 1 tab PO BEDTIME 11/23/21 11/23/21 Unknown History pantoprazole 40 mg tablet,delayed 1 tab PO QAM 11/23/21 11/23/21 Unknown History release paroxetine HCl 20 mg tablet 1 tab PO QAM 11/23/21 11/23/21 Unknown History quetiapine 100 mg tablet 1 tab PO QAM 11/23/21 11/23/21 Unknown History quetiapine 300 mg tablet 1 tab PO BEDTIME 11/23/21 11/23/21 Unknown History sildenafil 100 mg tablet (Viagra) 1 tab PO DAILY PRN 11/23/21 11/23/21 Unknown History tiotropium bromide 18 mcg capsule 1 cap INHALATION DAILY 11/23/21 11/23/21 Unknown History with inhalation device (Spiriva with HandiHaler) verapamil 100 mg capsule 24hr 1 cap PO BEDTIME 11/23/21 11/23/[address],ext.release Physical Exam Vital Signs: Vital Signs: Last Vital Signs Temp 97.1 F 11/26/21 06:00 Pulse 92 11/26/21 10:52 Resp 20 11/25/21 10:22 BP 122/74 11/26/21 10:52 Pulse Ox 98 11/26/21 06:00 BMI result Body Mass Index 26.6 Const: General: comfortable, no acute distress, alert and awake Orientation/consciousness: patient oriented x3 HEENT: Head: Yes normal to inspection General nose exam: No nasal polyps present and No nasal discharge present Face and sinus: Yes sinuses nontender Mouth: oropharynx normal Throat: Yes posterior oropharynx normal Eyes: General: appearance normal, both eyes and all related structures Neck: Neck: Yes normal visual inspection, Yes no lymphadenopathy, Yes trachea midline and Yes no JVD Thyroid: Thyroid normal Chest: Chest palpation & inspection: normal inspection of the chest, normal palpation of entire chest wall and no tenderness Resp: Other: PERCUSSION NOTE RESONANT, BREATH SOUNDS ARE DISTANT WITH PROLONGED EXPIRATORY PHASE. NO EXPIRATORY WHEEZES OR CREPITATIONS ARE HEARD. Cardio: Palpation: normal PMI Rate: regular rate Rhythm: regular rhythm Heart sounds: no gallops and no murmurs GI: Palpation (GI): Soft to palpation, nontender, No hepatosplenomegaly present and no masses Auscultation: normal bowel sounds Back/Spine/Pelvis: Thoracic/Lumbar Spine: thoracic and lumbar spine normal to inspection Skin: General skin exam: no rashes or lesions noted and dry skin Neuro: General: patient oriented x3 and no focal motor deficits Cranial nerves: Yes CN's II-XII intact bilaterally Extrem: General: Yes normal to inspection, Yes no clubbing, cyanosis or edema and Yes no calf tenderness Psych: Appearance: grossly normal Speech and movement: Normal speech and movement present (BUT SLOW) Results Laboratory Findings CBC and BMP: 11/22/21 15:38 11/24/21 08:23 Abnormal lab findings: Abnormal Labs 11/22/21 11/22/21 11/22/21 15:38 15:38 17:24 RBC 4.26 L Hgb 12.1 L Hct 36.5 L Plt Count 411 H MPV 9.0 L Eos % (Auto) 6.5 H Anion Gap 11 L BUN 8 L D Vitamin B12 Ur Specific [place] >= 1.030 H Urine Opiates Screen Urine Cocaine Screen U Marijuana (THC) Screen 11/22/21 11/24/21 11/24/21 19:59 08:23 08:23 RBC Hgb Hct Plt Count MPV Eos % (Auto) Anion Gap 11 L BUN Vitamin B12 1043 H Ur Specific [place] Urine Opiates Screen POSITIVE H Urine Cocaine Screen POSITIVE H U Marijuana (THC) Screen POSITIVE H Microbiology: Microbiology 11/25/21 17:30 Throat Throat Culture - Preliminary No Group A Beta-hemolytic Streptococci isolated to date. Diagnostic Findings Chest x-ray: report reviewed and image reviewed Assessment and Plan (1) COPD (chronic obstructive pulmonary disease): Status: Acute (2) Pulmonary nodules: Status: Acute (3) Cannabis use disorder, moderate, dependence: Status: Acute (4) Opioid use disorder: Status: Acute (5) Cocaine use disorder: Status: Acute (6) MDD (major depressive disorder), recurrent episode, moderate: Status: Acute (7) Nicotine dependence: Status: Acute Plan FOR HIS COPD WHICH IS DEFINITELY RELATED TO CHRONIC CIGARETTE SMOKING, CONTINUE THE FOLLOWING REGIMEN: SPIRIVA HANDIHALER 1 INHALATION DAILY , FLOVENT 101 INHALATION B.I.D.. ALBUTEROL HFA 2 PUFFS Q 4-6 HOURS P.R.N.. IN CASE OF ACUTE RESPIRATORY DISTRESS HE CAN USE DUONEB UPDRAFT Q 4-6 HOURS P.R.N.. I NOTICE THAT PATIENT IS ON PREDNISONE 20 MG DAILY FOR PRESUMED IMPRESSION OF ACUTE EXACERBATION OF COPD. THIS SHOULD BE CONTINUED FOR A 3 MORE DAYS AND THEN REDUCE TO 10 MG A DAY FOR 3 DAYS AND THEN DOWN TO 5 MG A DAY FOR 3 DAYS THEN STOP. COUGH IS RELATED TO HIS COPD AND SMOKING, AND USE ONLY SYMPTOMATIC TREATMENT, BENZONATATE 100 MG T.I.D. P.R.N. IS OKAY PATIENT IS ADVISED TO QUIT SMOKING WHILE HERE IN THE HOSPITAL. HE IS WILLING TO DO THAT. I HAVE ORDERED NICOTINE PATCH 14 MG DAILY FOR HIM. HE IS KNOWN TO HAVE PULMONARY NODULES, FOR WHICH HE NEEDS AN WILL LOW-DOSE CT SCAN, AND ACCORDING TO OUR OFFICE RECORDS HE IS SUPPOSED TO HAVE IT IN JUNE 2022. PATIENT NEEDS COUNSELING TO STOP USING CIGARETTES, MARIJUANA, AND COCAINE. THANK YOU VERY MUCH FOR [facility] TO SEE THIS PATIENT. Procedures Date of Service Date of Service: 11/26/21
[2021-11-26] MEDS: QUEtiapine Fumarate 50 MG TABLET PO ×2 (12:08→18:01)
--- NOTE | 2021-11-26 12:24 | HO.ADDICT_ITS ---
History of Present Illness Date of Service: 11/26/2021 Chief Complaint: Recurrent major depression, cocaine use disorder Reason for Consult: RON eval and recs Requesting physician: Rebecca Mccartney Sources of Information: patient interviewed and chart reviewed Additional Sources of Information: RSRN--[facility] Narrative: Patient is a 56 year old Australian speaking male currently admitted to [facility] for worsening depression and suicidal ideation. Patient reporting cocaine use disorder. UDS +opiates and cocaine. Patient initially seen by RSRN. Denies any opioid use or history of opioid use, although reported to her briefly being prescribed suboxone some time ago. Seen by this screenplay writer in room 517. Awake, alert, pleasant and engaged in interview. Discussed current substance use. He states he is using about $100 of cocaine int ranasally for the last several weeks/months. Reports that he had been in recovery and abstinent of any substance for 9 years. Precipitating factor to recurrence of use was separation from . He denies any opioid use and when UDS results reviewed he expressed shock. This screenplay writer discussed with patient cocaine supply frequently being cut with opiates, including fentanyl. Patient reports that he had a couple of instances where he felt dizzy and thought he was sick (experiencing withdrawal) after several days of using cocaine, but could not understand why as he had never experienced that in the past. Discussed current treatment options for cocaine use disorder. Explained that medication options are mainly off label use. Some options include naltrexone (not optimal given ?of opioid use), topomax, wellbutrin and mitrazipine. Past Psychiatric History: -Pt was receiving OP psych services at [facility] but he was recently discharged. Prev at [facility] [phone]. Hx of [facility] admission in 2009. Hx of [facility] admission in 2009. -Hx of multiple inpatient psych admissions since 2007, last was 2017 at [place] for ODing on seroquel. Hx of being at [facility] in 2012, 2013, 2014, and 2016. Review of Systems Constitutional: Reports as per HPI and Reports no additional constitutional complaints Diagnostics Vital Signs (24Hr): Vital Signs - 24 hr 11/25/21 19:12 11/26/21 06:00 11/26/21 10:52 Temperature 97.5 F 97.1 F Pulse Rate 94 97 92 Blood Pressure 101/57 L 103/64 122/74 Pulse Oximetry 98 BMI result Body Mass Index 26.6 Labs Results: 11/22/21 15:38 11/24/21 08:23 Labs: Laboratory Results - last 48 hr 11/25/21 17:30 COVID-19 ([facility]) Negative COVID-19 Clin Com See Note Imaging Radiology Impressions: ITS Impressions Chest X-Ray 11/22/21 15:43 IMPRESSION: No acute intrathoracic disease. Mental Status Exam Mental Status Exam Patient Appearance: Appropriate Patient Orientation: Person, Place, Time and Situation Level of Consciousness: Awake and Appropriate Patient Behavior: Talkative and Cooperative Mood Description: Relaxed Speech Pattern: Clear Thought Process: Goal Oriented Judgement: Good Medications Medications Current Medications Acetaminophen (Acetaminophen 325 Mg Tablet) 650 mg PO Q6H PRN PRN Reason: Headache/Pain Mild Scale (1-3) Last Admin: 11/23/21 15:38 Dose: 650 mg Documented by: Al Hydroxide/Mg Hydroxide (Magnesium Hydrox/Alum Hydrox 30 Ml Oral.Susp) 30 ml PO Q6H PRN PRN Reason: Heartburn/Nausea Albuterol Sulfate (Albuterol Sulfate 90 Mcg 8 Gm Inhaler) 2 puff INHALE Q4H PRN PRN Reason: shortness of breath or wheezing Last Admin: 11/26/21 10:47 Dose: 2 puff Documented by: Albuterol/Ipratropium (Albuterol/Iprat 2.5/0.5mg 3 Ml Ampul.Neb) 3 ml INHALE TID PRN PRN Reason: Shortness of Breath Last Admin: 11/25/21 10:22 Dose: 3 ml Documented by: Atorvastatin Calcium (Atorvastatin Calcium 40 Mg Tablet) 40 mg PO BEDTIME [facility] Last Admin: 11/25/21 19:52 Dose: 40 mg Documented by: Benzocaine (Throat Lozenge, Medicated Lozenge) 1 lozenge MUCOUS MEM Q2H PRN PRN Reason: Sore Throat Last Admin: 11/25/21 20:00 Dose: 1 lozenge Documented by: Benzonatate (Benzonatate 100 Mg Capsule) 100 mg PO TID PRN PRN Reason: Cough Last Admin: 11/26/21 08:21 Dose: 100 mg Documented by: Clonazepam (Clonazepam 1 Mg Tablet) 1 mg PO BID PRN PRN Reason: anxiety Last Admin: 11/26/21 08:13 Dose: 1 mg Documented by: Clonidine HCl (Clonidine Hcl 0.1 Mg Tablet) 0.1 mg PO BID PRN; Protocol PRN Reason: anxiety Last Admin: 11/26/21 10:50 Dose: 0.1 mg Documented by: Cyclobenzaprine HCl (Cyclobenzaprine Hcl 5 Mg Tablet) 5 mg PO BID PRN PRN Reason: Back Pain Last Admin: 11/25/21 12:31 Dose: 5 mg Documented by: Ferrous Sulfate (Ferrous Sulfate 324 Mg Tablet.) 325 mg PO BEDTIME [facility] Last Admin: 11/25/21 19:52 Dose: 325 mg Documented by: Fluticasone Propionate (Fluticasone Propionate 100 Mcg Blst.W.Dev) 1 puff INHALE RBID [facility] Hydroxyzine HCl (Hydroxyzine Hcl 25 Mg Tablet) 25 mg PO BEDTIME PRN PRN Reason: Anxiety Last Admin: 11/24/21 19:47 Dose: 25 mg Documented by: Magnesium Hydroxide (Milk Of Magnesia 30 Ml Oral.Susp) 30 ml PO DAILY PRN PRN Reason: Constipation Mirtazapine (Mirtazapine 30 Mg Tablet) 30 mg PO BEDTIME [facility] Last Admin: 11/25/21 19:52 Dose: 30 mg Documented by: Multi-Ingred Medicated Throat [place] (Throat [place], Medicated 20 Ml Bottle) 1 spray MUCOUS MEM Q2H PRN PRN Reason: Sore Throat Nicotine (Nicotine 21 Mg Patch.Td24) 21 mg TRANSDERMA DAILY [facility] Last Admin: 11/26/21 11:38 Dose: Not Given Documented by: Omeprazole (Omeprazole 40 Mg Capsule.) 40 mg PO DAILY@0630 [facility] Last Admin: 11/26/21 06:19 Dose: 40 mg Documented by: Paroxetine HCl (Paroxetine Hcl 20 Mg Tablet) 20 mg PO DAILY [facility] Last Admin: 11/26/21 08:13 Dose: 20 mg Documented by: Pharmacy Consult (Consult Rx Perform Med Rec) 1 each MISCELLANE ONCE PRN PRN Reason: Consult order Prednisone (Prednisone 20 Mg Tablet) 20 mg PO DAILY [facility] Stop: 11/29/21 18:00 Last Admin: 11/26/21 08:13 Dose: 20 mg Documented by: Quetiapine Fumarate (Quetiapine Fumarate 300 Mg Tablet) 300 mg PO BEDTIME [facility] Last Admin: 11/25/21 19:52 Dose: 300 mg Documented by: Quetiapine Fumarate (Quetiapine Fumarate 100 Mg Tablet) 100 mg PO DAILY [facility] Last Admin: 11/26/21 08:13 Dose: 100 mg Documented by: Quetiapine Fumarate (Quetiapine Fumarate 50 Mg Tablet) 50 mg PO BID PRN PRN Reason: anxiety, agitation Last Admin: 11/26/21 12:08 Dose: 50 mg Documented by: Tiotropium [place] (Tiotropium [place] 18 Mcg Cap.W.Dev) 1 puff INHALE RDAILY [facility] Last Admin: 11/26/21 08:13 Dose: 1 puff Documented by: Trazodone HCl (Trazodone Hcl 50 Mg Tablet) 50 mg PO BEDTIME PRN PRN Reason: Insomnia Last Admin: 11/26/21 03:35 Dose: 50 mg Documented by: Verapamil HCl (Verapamil Hcl Sr 100 Mg Cap24h.Pct) 100 mg PO BEDTIME [facility]; Protocol Last Admin: 11/25/21 19:52 Dose: 100 mg Documented by: Allergies Allergies Allergy/AdvReac Type Severity Reaction Status Date / Time ibuprofen Allergy Intermediate Stomach Verified 10/10/21 08:16 Upset penicillin V Allergy Intermediate rash Verified 09/08/21 13:49 Assessment & Plan Assessment & Plan (1) Cocaine use disorder: Status: Acute Code(s): F14.10 - Cocaine abuse, uncomplicated Assessment and Plan: * Patient expressing interest in recovery supports. Agreeable to meeting with middle school coach later today. * connecting to ongoing support may be extremely beneficial once discharged * no overt sx of opiod withdrawal seen or reported--also not interested in MOUD I spent __30____ minutes with the patient and/or on the patient floor today, greater than?50% of which was spent counseling/coordinating care. [facility] Past Medical History Medical History (Updated 11/26/21 @ 11:08 by Hipolito Roberts MD) Anxiety Asthma Cannabis use disorder, moderate, dependence Cocaine use disorder Depression Emphysema of lung Nicotine dependence Opioid use disorder Recurrent major depression Surgical History Surgical History Hx of cholecystectomy Social History Social History Household Members: None Housing: Apartment Do you presently have visiting nurse or other home services: No Unable to assess alcohol history related to: Unknown Alcohol intake: never Patient Tobacco Use Status: Former Tobacco user e-Cigarette/Vaping Use: Never Used Second Hand Smoke Exposure: No Use of substances other than those prescribed or required for medical reasons: Yes Substance Use Type: Crack/Cocaine and Opiates Substance Use Frequency: Chronic Longstanding Last Used Substance: Just Prior to Admission Last Used Substance Other:: cocaine Currently Displaying Signs/Symptoms of Drug Intoxication Withdrawal: No Any prior treatment program specific to substance use: Yes (Previously known to [facility] through multiple prior assessments.) Have you been hit, kicked, punched, or otherwise hurt by someone within the past year? If so, by whom?: No Do you feel safe in your current relationship?: No Current Relationship Is there a partner from a previous relationship who is making you feel unsafe now?: No Are you made to feel afraid or neglected: No Advance Directives: No Advance Directives Information Provided: No Do you have thoughts of harming others: None Do you have a plan to hurt others: No Plan Recently lost weight without trying: No How much weight loss: Not applicable Eating poorly because of decreased appetite: No Nutrition screen score: 0 Nutrition Risks: No Nutritional Risk Poor oral hygiene: No (patient wears dentures.) service: No Sexual orientation: Straight/Heterosexual
--- NOTE | 2021-11-26 19:38 | P.PNPSI_ITS ---
Subjective Subjective Date of Service: 11/26/21 Reason For Visit: Recurrent major depression, cocaine use disorder Subjective Notes: Conditional Voluntary Healthcare Proxy: No Guardianship: No Medical Problems Affecting Mental Status: No Interim History: Pt seen by pulmonary team which is much appreciated. Reporting ongoing depressive sx in context of medical sx. Medication Compliance: Yes Side effects from medications: No Attending Groups: Intermittent Review of Systems Acute medical concerns: No Medical Review of Systems: unchanged Review of Systems Constitutional: Reports as per HPI Mental Status Exam Mental Status Exam Patient Appearance: Appropriate Patient Orientation: Person, Place, Time and Situation Level of Consciousness: Awake and Appropriate Patient Behavior: Talkative and Cooperative Mood Description: Relaxed Speech Pattern: Clear Thought Process: Goal Oriented Judgement: Good Diagnostics Vital Signs (24Hr): Vital Signs - 24 hr 11/26/21 06:00 11/26/21 10:52 Temperature 97.1 F Pulse Rate 97 92 Blood Pressure 103/64 122/74 Pulse Oximetry 98 BMI result Body Mass Index 26.6 Labs Results: 11/22/21 15:38 11/24/21 08:23 Labs: Laboratory Results - last 48 hr 11/25/21 17:30 COVID-19 ([facility]) Negative COVID-19 Clin Com See Note Imaging Radiology Impressions: ITS Impressions Chest X-Ray 11/22/21 15:43 IMPRESSION: No acute intrathoracic disease. Medications Medications Current Medications Acetaminophen (Acetaminophen 325 Mg Tablet) 650 mg PO Q6H PRN PRN Reason: Headache/Pain Mild Scale (1-3) Last Admin: 11/23/21 15:38 Dose: 650 mg Documented by: Al Hydroxide/Mg Hydroxide (Magnesium Hydrox/Alum Hydrox 30 Ml Oral.Susp) 30 ml PO Q6H PRN PRN Reason: Heartburn/Nausea Albuterol Sulfate (Albuterol Sulfate 90 Mcg 8 Gm Inhaler) 2 puff INHALE Q4H PRN PRN Reason: shortness of breath or wheezing Last Admin: 11/26/21 10:47 Dose: 2 puff Documented by: Albuterol/Ipratropium (Albuterol/Iprat 2.5/0.5mg 3 Ml Ampul.Neb) 3 ml INHALE TID PRN PRN Reason: Shortness of Breath Last Admin: 11/25/21 10:22 Dose: 3 ml Documented by: Atorvastatin Calcium (Atorvastatin Calcium 40 Mg Tablet) 40 mg PO BEDTIME [facility] Last Admin: 11/25/21 19:52 Dose: 40 mg Documented by: Benzocaine (Throat Lozenge, Medicated Lozenge) 1 lozenge MUCOUS MEM Q2H PRN PRN Reason: Sore Throat Last Admin: 11/25/21 20:00 Dose: 1 lozenge Documented by: Benzonatate (Benzonatate 100 Mg Capsule) 100 mg PO TID PRN PRN Reason: Cough Last Admin: 11/26/21 08:21 Dose: 100 mg Documented by: Clonazepam (Clonazepam 1 Mg Tablet) 1 mg PO BID PRN PRN Reason: anxiety Last Admin: 11/26/21 16:10 Dose: 1 mg Documented by: Clonidine HCl (Clonidine Hcl 0.1 Mg Tablet) 0.1 mg PO BID PRN; Protocol PRN Reason: anxiety Last Admin: 11/26/21 10:50 Dose: 0.1 mg Documented by: Cyclobenzaprine HCl (Cyclobenzaprine Hcl 5 Mg Tablet) 5 mg PO BID PRN PRN Reason: Back Pain Last Admin: 11/25/21 12:31 Dose: 5 mg Documented by: Ferrous Sulfate (Ferrous Sulfate 324 Mg Tablet.) 325 mg PO BEDTIME [facility] Last Admin: 11/25/21 19:52 Dose: 325 mg Documented by: Fluticasone Propionate (Fluticasone Propionate 100 Mcg Blst.W.Dev) 1 puff INHALE RBID [facility] Hydroxyzine HCl (Hydroxyzine Hcl 25 Mg Tablet) 25 mg PO BEDTIME PRN PRN Reason: Anxiety Last Admin: 11/24/21 19:47 Dose: 25 mg Documented by: Magnesium Hydroxide (Milk Of Magnesia 30 Ml Oral.Susp) 30 ml PO DAILY PRN PRN Reason: Constipation Mirtazapine (Mirtazapine 30 Mg Tablet) 30 mg PO BEDTIME [facility] Last Admin: 11/25/21 19:52 Dose: 30 mg Documented by: Multi-Ingred Medicated Throat [place] (Throat [place], Medicated 20 Ml Bottle) 1 spray MUCOUS MEM Q2H PRN PRN Reason: Sore Throat Nicotine (Nicotine 21 Mg Patch.Td24) 21 mg TRANSDERMA DAILY [facility] Last Admin: 11/26/21 11:38 Dose: Not Given Documented by: Omeprazole (Omeprazole 40 Mg Capsule.) 40 mg PO DAILY@0630 [facility] Last Admin: 11/26/21 06:19 Dose: 40 mg Documented by: Paroxetine HCl (Paroxetine Hcl 20 Mg Tablet) 20 mg PO DAILY [facility] Last Admin: 11/26/21 08:13 Dose: 20 mg Documented by: Pharmacy Consult (Consult Rx Perform Med Rec) 1 each MISCELLANE ONCE PRN PRN Reason: Consult order Prednisone (Prednisone 20 Mg Tablet) 20 mg PO DAILY [facility] Stop: 11/29/21 18:00 Last Admin: 11/26/21 08:13 Dose: 20 mg Documented by: Quetiapine Fumarate (Quetiapine Fumarate 300 Mg Tablet) 300 mg PO BEDTIME [facility] Last Admin: 11/25/21 19:52 Dose: 300 mg Documented by: Quetiapine Fumarate (Quetiapine Fumarate 100 Mg Tablet) 100 mg PO DAILY [facility] Last Admin: 11/26/21 08:13 Dose: 100 mg Documented by: Quetiapine Fumarate (Quetiapine Fumarate 50 Mg Tablet) 50 mg PO BID PRN PRN Reason: anxiety, agitation Last Admin: 11/26/21 18:01 Dose: 50 mg Documented by: Tiotropium [place] (Tiotropium [place] 18 Mcg Cap.W.Dev) 1 puff INHALE RDAILY [facility] Last Admin: 11/26/21 08:13 Dose: 1 puff Documented by: Trazodone HCl (Trazodone Hcl 50 Mg Tablet) 50 mg PO BEDTIME PRN PRN Reason: Insomnia Last Admin: 11/26/21 03:35 Dose: 50 mg Documented by: Verapamil HCl (Verapamil Hcl Sr 100 Mg Cap24h.Pct) 100 mg PO BEDTIME [facility]; Protocol Last Admin: 11/25/21 19:52 Dose: 100 mg Documented by: Allergies Allergies Allergy/AdvReac Type Severity Reaction Status Date / Time ibuprofen Allergy Intermediate Stomach Verified 10/10/21 08:16 Upset penicillin V Allergy Intermediate rash Verified 09/08/21 13:49 Assessment & Plan Assessment & Plan (1) Opioid use disorder: Status: Acute Code(s): F11.90 - Opioid use, unspecified, uncomplicated (2) Cocaine use disorder: Status: Acute Code(s): F14.10 - Cocaine abuse, uncomplicated (3) MDD (major depressive disorder), recurrent episode, moderate: Status: Acute Code(s): F33.1 - Major depressive disorder, recurrent, moderate Plan Augustin is a 56 y.o. Male who carries a dx of MDD recurrent and cocaine use disorder. Pt presented to [facility] ED on 11/22/2021 due to depression x one month, SI with plan to OD on cocaine, tearful, stated he feels like hurting himself. Precipitating factors include that he recently from his , she left and moved to [place] last week, living with new . Pt was abstinent from cocaine x 10 years, relapsed last night. Pt has history of suicide attempts. Has co-morbid COPD, saturating on 95% room air. Plan: Pt does not want med changes. Recommend recovery team consult.? Q15 min safety checks, CV Monitor response to medications. Monitor for safety in the milieu. Discharge on stabilization. Patient seen. Chart reviewed. Discussed with team. Obtain collateral contact info?as needed 11/25/21- COVID testing, throat culture, pulmonary eval, throat lozenges/spray for pain. Chest X Ray 11/22 clear. No WBC increase 11/26/21- Looking for discharge on 11/29. Continue to monitor medically. Agrees to attend OP therapy upon discharge he reports. I spent minutes with the patient and/or on the patient floor today, greater than?50% of which was spent counseling/coordinating care. Patient educated on: therapeutic strategies Informed Consent: understands and further education needed Reason for contiued inpatient stay Substantial Risk for: inability to function and med/psych decompensation
[2021-11-26] MEDS: Fluticasone Propionate 100 MCG BLST.W.DEV 1 PUFF INHALE (20:25)
[2021-11-26] MEDS: Ferrous Sulfate 324 MG TABLET.DR 325 MG PO (20:25)
[2021-11-26] MEDS: QUEtiapine Fumarate 300 MG TABLET PO (20:26)
[2021-11-26] MEDS: Mirtazapine 30 MG TABLET PO (20:26)
[2021-11-26] MEDS: Atorvastatin Calcium 40 MG TABLET PO (20:26)
[2021-11-26] MEDS: Acetaminophen 325 MG TABLET 650 MG PO (20:30)
[2021-11-26 20:31] VITALS: BP 106/67; PULSE 104
[2021-11-27] MEDS: hydrOXYzine HCL 25 MG TABLET PO (04:13)
[2021-11-27] MEDS: Omeprazole 40 MG CAPSULE.DR PO (06:35)
[2021-11-27] MEDS: clonazePAM 1 MG TABLET PO ×2 (08:36→19:31)
[2021-11-27] MEDS: predniSONE 20 MG TABLET PO (08:36)
[2021-11-27] MEDS: Fluticasone Propionate 100 MCG BLST.W.DEV 1 PUFF INHALE ×2 (08:36→15:57)
[2021-11-27] MEDS: PARoxetine HCL 20 MG TABLET PO (08:36)
[2021-11-27] MEDS: QUEtiapine Fumarate 100 MG TABLET PO (08:37)
[2021-11-27] MEDS: Nicotine 21 MG PATCH.TD24 TRANSDERMA (08:37)
[2021-11-27 08:41] VITALS: BP 96/69; PULSE 96; RESP 18; TEMP 36.6; O2SAT 95
[2021-11-27] MEDS: Albuterol/Iprat 2.5/0.5MG 3 ML AMPUL.NEB INHALE (09:16)
[2021-11-27 09:17] VITALS: PULSE 102; RESP 18; O2SAT 95
--- NOTE | 2021-11-27 09:31 | P.PNPSI_ITS ---
Subjective Subjective Date of Service: 11/27/21 Reason For Visit: Recurrent major depression, cocaine use disorder Subjective Notes: Conditional Voluntary Healthcare Proxy: No Guardianship: No Medical Problems Affecting Mental Status: No Interim History: Patient was seen and discussed in rounds today. Records and plans were reviewed. He was seen with an deicer kit assembler. He states that he is not ?well?. But could not elaborate. Complains of his sleeping. He has been anxious and depressed. Some pacing. He is compliant with his medications. He inquired about his x-ray yesterday which did not show any acute signs. I will increase his trazodone to 100 mg. No other changes were made Review of Systems Review of Systems Some problems with his breathing Yes all other systems are reviewed and are negative Diagnostics Vital Signs (24Hr): Vital Signs - 24 hr 11/26/21 10:52 11/26/21 20:31 11/27/21 08:41 Temperature 97.9 F Pulse Rate 92 104 H 96 Respiratory Rate 18 Blood Pressure 122/74 106/67 96/69 Pulse Oximetry 95 11/27/21 09:17 Temperature Pulse Rate 102 H Respiratory Rate 18 Blood Pressure Pulse Oximetry BMI result Body Mass Index 26.6 Labs Results: 11/22/21 15:38 11/24/21 08:23 Labs: Laboratory Results - last 48 hr 11/25/21 17:30 COVID-19 ([facility]) Negative COVID-19 Clin Com See Note Imaging Radiology Impressions: ITS Impressions Chest X-Ray 11/22/21 15:43 IMPRESSION: No acute intrathoracic disease. Chest X-Ray 11/26/21 20:19 IMPRESSION: No acute finding. Medications Medications Current Medications Acetaminophen (Acetaminophen 325 Mg Tablet) 650 mg PO Q6H PRN PRN Reason: Headache/Pain Mild Scale (1-3) Last Admin: 11/26/21 20:30 Dose: 650 mg Documented by: Al Hydroxide/Mg Hydroxide (Magnesium Hydrox/Alum Hydrox 30 Ml Oral.Susp) 30 ml PO Q6H PRN PRN Reason: Heartburn/Nausea Albuterol Sulfate (Albuterol Sulfate 90 Mcg 8 Gm Inhaler) 2 puff INHALE Q4H PRN PRN Reason: shortness of breath or wheezing Last Admin: 11/26/21 20:25 Dose: 2 puff Documented by: Albuterol/Ipratropium (Albuterol/Iprat 2.5/0.5mg 3 Ml Ampul.Neb) 3 ml INHALE RQ4H PRN PRN Reason: sob Last Admin: 11/27/21 09:16 Dose: 3 ml Documented by: Atorvastatin Calcium (Atorvastatin Calcium 40 Mg Tablet) 40 mg PO BEDTIME [facility] Last Admin: 11/26/21 20:26 Dose: 40 mg Documented by: Benzocaine (Throat Lozenge, Medicated Lozenge) 1 lozenge MUCOUS MEM Q2H PRN PRN Reason: Sore Throat Last Admin: 11/25/21 20:00 Dose: 1 lozenge Documented by: Benzonatate (Benzonatate 100 Mg Capsule) 100 mg PO TID PRN PRN Reason: Cough Last Admin: 11/26/21 08:21 Dose: 100 mg Documented by: Clonazepam (Clonazepam 1 Mg Tablet) 1 mg PO BID PRN PRN Reason: anxiety Last Admin: 11/27/21 08:36 Dose: 1 mg Documented by: Clonidine HCl (Clonidine Hcl 0.1 Mg Tablet) 0.1 mg PO BID PRN; Protocol PRN Reason: anxiety Last Admin: 11/26/21 20:29 Dose: 0.1 mg Documented by: Cyclobenzaprine HCl (Cyclobenzaprine Hcl 5 Mg Tablet) 5 mg PO BID PRN PRN Reason: Back Pain Last Admin: 11/25/21 12:31 Dose: 5 mg Documented by: Ferrous Sulfate (Ferrous Sulfate 324 Mg Tablet.Dr) 325 mg PO BEDTIME [facility] Last Admin: 11/26/21 20:25 Dose: 325 mg Documented by: Fluticasone Propionate (Fluticasone Propionate 100 Mcg Blst.W.Dev) 1 puff INHALE RBID [facility] Last Admin: 11/27/21 08:36 Dose: 1 puff Documented by: Hydroxyzine HCl (Hydroxyzine Hcl 25 Mg Tablet) 25 mg PO BEDTIME PRN PRN Reason: Anxiety Last Admin: 11/27/21 04:13 Dose: 25 mg Documented by: Magnesium Hydroxide (Milk Of Magnesia 30 Ml Oral.Susp) 30 ml PO DAILY PRN PRN Reason: Constipation Mirtazapine (Mirtazapine 30 Mg Tablet) 30 mg PO BEDTIME [facility] Last Admin: 11/26/21 20:26 Dose: 30 mg Documented by: Multi-Ingred Medicated Throat [place] (Throat [place], Medicated 20 Ml Bottle) 1 spray MUCOUS MEM Q2H PRN PRN Reason: Sore Throat Nicotine (Nicotine 21 Mg Patch.Td24) 21 mg TRANSDERMA DAILY [facility] Last Admin: 11/27/21 08:37 Dose: 21 mg Documented by: Omeprazole (Omeprazole 40 Mg Capsule.Dr) 40 mg PO DAILY@0630 [facility] Last Admin: 11/27/21 06:35 Dose: 40 mg Documented by: Paroxetine HCl (Paroxetine Hcl 20 Mg Tablet) 20 mg PO DAILY [facility] Last Admin: 11/27/21 08:36 Dose: 20 mg Documented by: Pharmacy Consult (Consult Rx Perform Med Rec) 1 each MISCELLANE ONCE PRN PRN Reason: Consult order Prednisone (Prednisone 20 Mg Tablet) 20 mg PO DAILY [facility] Stop: 11/30/21 08:30 Last Admin: 11/27/21 08:36 Dose: 20 mg Documented by: Prednisone (Prednisone 10 Mg Tablet) 10 mg PO DAILY [facility] Stop: 12/03/21 08:30 Prednisone (Prednisone 5 Mg Tablet) 5 mg PO DAILY [facility] Stop: 12/06/21 09:00 Quetiapine Fumarate (Quetiapine Fumarate 300 Mg Tablet) 300 mg PO BEDTIME [facility] Last Admin: 11/26/21 20:26 Dose: 300 mg Documented by: Quetiapine Fumarate (Quetiapine Fumarate 100 Mg Tablet) 100 mg PO DAILY [facility] Last Admin: 11/27/21 08:37 Dose: 100 mg Documented by: Quetiapine Fumarate (Quetiapine Fumarate 50 Mg Tablet) 50 mg PO BID PRN PRN Reason: anxiety, agitation Last Admin: 11/26/21 18:01 Dose: 50 mg Documented by: Tiotropium [place] (Tiotropium [place] 18 Mcg Cap.W.Dev) 1 puff INHALE RDAILY [facility] Last Admin: 11/27/21 08:36 Dose: 1 puff Documented by: Trazodone HCl (Trazodone Hcl 50 Mg Tablet) 50 mg PO BEDTIME PRN PRN Reason: Insomnia Last Admin: 11/26/21 03:35 Dose: 50 mg Documented by: Verapamil HCl (Verapamil Hcl Sr 100 Mg Cap24h.Pct) 100 mg PO BEDTIME [facility]; Protocol Last Admin: 11/26/21 20:26 Dose: 100 mg Documented by: Allergies Allergies Allergy/AdvReac Type Severity Reaction Status Date / Time ibuprofen Allergy Intermediate Stomach Verified 10/10/21 08:16 Upset penicillin V Allergy Intermediate rash Verified 09/08/21 13:49 Assessment & Plan Assessment & Plan (1) Opioid use disorder: Status: Acute Code(s): F11.90 - Opioid use, unspecified, uncomplicated (2) Cocaine use disorder: Status: Acute Code(s): F14.10 - Cocaine abuse, uncomplicated (3) MDD (major depressive disorder), recurrent episode, moderate: Status: Acute Code(s): F33.1 - Major depressive disorder, recurrent, moderate Plan Augustin is a 56 y.o. Male who carries a dx of MDD recurrent and cocaine use disorder. Pt presented to [facility] ED on 11/22/2021 due to depression x one month, SI with plan to OD on cocaine, tearful, stated he feels like hurting himself. Precipitating factors include that he recently from his , she left and moved to [place] last week, living with [facility]. Pt was abstinent from cocaine x 10 years, relapsed last night. Pt has history of suicide attempts. Has co-morbid COPD, saturating on 95% room air. Plan: Pt does not want med changes. Recommend recovery team consult.? Q15 min safety checks, CV Monitor response to medications. Monitor for safety in the milieu. Discharge on stabilization. Patient seen. Chart reviewed. Discussed with team. Obtain collateral contact info?as needed 11/25/21- COVID testing, throat culture, pulmonary eval, throat lozenges/spray for pain. Chest X Ray 11/22 clear. No WBC increase 11/26/21- Looking for discharge on 11/29. Continue to monitor medically. Agrees to attend OP therapy upon discharge he reports. 11/27/2021: Continue current regimen and plans. Increase trazodone to 100 mg I spent minutes with the patient and/or on the patient floor today, greater than?50% of which was spent counseling/coordinating care. Reason for contiued inpatient stay Substantial Risk for: med/psych decompensation
[2021-11-27] MEDS: cloNIDine HCL 0.1 MG TABLET PO ×2 (12:26→16:02)
[2021-11-27 12:27] VITALS: BP 107/69; PULSE 100
[2021-11-27] MEDS: QUEtiapine Fumarate 50 MG TABLET PO ×2 (12:27→16:02)
[2021-11-27] MEDS: Albuterol Sulfate 90 MCG 8 GM INHALER 2 PUFF INHALE (15:57)
[2021-11-27 16:05] VITALS: BP 107/60; PULSE 100
[2021-11-27] MEDS: Mirtazapine 30 MG TABLET PO (19:32)
[2021-11-27] MEDS: Atorvastatin Calcium 40 MG TABLET PO (19:32)
[2021-11-27] MEDS: Ferrous Sulfate 324 MG TABLET.DR 325 MG PO (19:32)
[2021-11-27] MEDS: QUEtiapine Fumarate 300 MG TABLET PO (19:33)
[2021-11-27] MEDS: Throat Lozenge, Medicated LOZENGE 1 LOZENGE MUCOUS MEM (21:00)
[2021-11-28] MEDS: hydrOXYzine HCL 25 MG TABLET PO (00:15)
[2021-11-28] MEDS: traZODone HCL 100 MG TABLET PO (00:16)
[2021-11-28 06:00] VITALS: BP 101/58; PULSE 100; RESP 20; TEMP 36.6; O2SAT 96
[2021-11-28] MEDS: Omeprazole 40 MG CAPSULE.DR PO (06:08)
[2021-11-28] MEDS: Albuterol Sulfate 90 MCG 8 GM INHALER 2 PUFF INHALE (06:10)
--- NOTE | 2021-11-28 07:34 | HO.PSYCHPN ---
Subjective Subjective Date of Service: 11/28/21 Reason For Visit: Recurrent major depression, cocaine use disorder Subjective Notes: Conditional Voluntary Healthcare Proxy: No Guardianship: No Medical Problems Affecting Mental Status: No Interim History: Patient was seen and discussed in rounds today. Records and plans were reviewed. He continues to have trouble sleeping in the increase of trazodone was not helpful. I will discontinue that and put in Thorazine 100 mg q.h.s.. Side effects discussed. Issues of orthostasis discussed. Yesterday he was very preoccupied around some family members. Eating and sleeping adequately. He continues to complain of depression. No SI. No other changes were made He was seen with the help of an radiation oncology manager Medication Compliance: Yes Side effects from medications: No Attending Groups: No Review of Systems Review of Systems Poor sleep Yes all other systems are reviewed and are negative Mental Status Exam Mental Status Exam Patient Appearance: Appropriate Patient Orientation: Person, Place, Time and Situation Level of Consciousness: Awake and Appropriate Patient Behavior: Talkative and Cooperative Mood Description: Relaxed Speech Pattern: Clear Thought Process: Goal Oriented Judgement: Good Diagnostics Vital Signs (24Hr): Vital Signs - 24 hr 11/27/21 08:41 11/27/21 09:17 11/27/21 12:27 Temperature 97.9 F Pulse Rate 96 102 H 100 Respiratory Rate 18 18 Blood Pressure 96/69 107/69 Pulse Oximetry 95 11/27/21 16:05 11/28/21 06:00 Temperature 97.9 F Pulse Rate 100 100 Respiratory Rate 20 Blood Pressure 107/60 101/58 L Pulse Oximetry 96 BMI result Body Mass Index 26.6 Labs Results: 11/22/21 15:38 11/24/21 08:23 Imaging Radiology Impressions: ITS Impressions Chest X-Ray 11/22/21 15:43 IMPRESSION: No acute intrathoracic disease. Chest X-Ray 11/26/21 20:19 IMPRESSION: No acute finding. Medications Medications Current Medications Acetaminophen (Acetaminophen 325 Mg Tablet) 650 mg PO Q6H PRN PRN Reason: Headache/Pain Mild Scale (1-3) Last Admin: 11/26/21 20:30 Dose: 650 mg Documented by: Al Hydroxide/Mg Hydroxide (Magnesium Hydrox/Alum Hydrox 30 Ml Oral.Susp) 30 ml PO Q6H PRN PRN Reason: Heartburn/Nausea Albuterol Sulfate (Albuterol Sulfate 90 Mcg 8 Gm Inhaler) 2 puff INHALE Q4H PRN PRN Reason: shortness of breath or wheezing Last Admin: 11/28/21 06:10 Dose: 2 puff Documented by: Albuterol/Ipratropium (Albuterol/Iprat 2.5/0.5mg 3 Ml Ampul.Neb) 3 ml INHALE RQ4H PRN PRN Reason: sob Last Admin: 11/27/21 09:16 Dose: 3 ml Documented by: Atorvastatin Calcium (Atorvastatin Calcium 40 Mg Tablet) 40 mg PO BEDTIME [facility] Last Admin: 11/27/21 19:32 Dose: 40 mg Documented by: Benzocaine (Throat Lozenge, Medicated Lozenge) 1 lozenge MUCOUS MEM Q2H PRN PRN Reason: Sore Throat Last Admin: 11/27/21 21:00 Dose: 1 lozenge Documented by: Benzonatate (Benzonatate 100 Mg Capsule) 100 mg PO TID PRN PRN Reason: Cough Last Admin: 11/26/21 08:21 Dose: 100 mg Documented by: Chlorpromazine HCl (Chlorpromazine Hcl 100 Mg Tablet) 100 mg PO BEDTIME [facility] Clonazepam (Clonazepam 1 Mg Tablet) 1 mg PO BID PRN PRN Reason: anxiety Last Admin: 11/27/21 19:31 Dose: 1 mg Documented by: Clonidine HCl (Clonidine Hcl 0.1 Mg Tablet) 0.1 mg PO BID PRN; Protocol PRN Reason: anxiety Last Admin: 11/27/21 16:02 Dose: 0.1 mg Documented by: Cyclobenzaprine HCl (Cyclobenzaprine Hcl 5 Mg Tablet) 5 mg PO BID PRN PRN Reason: Back Pain Last Admin: 11/25/21 12:31 Dose: 5 mg Documented by: Ferrous Sulfate (Ferrous Sulfate 324 Mg Tablet.Dr) 325 mg PO BEDTIME [facility] Last Admin: 11/27/21 19:32 Dose: 325 mg Documented by: Fluticasone Propionate (Fluticasone Propionate 100 Mcg Blst.W.Dev) 1 puff INHALE RBID [facility] Last Admin: 11/27/21 15:57 Dose: 1 puff Documented by: Hydroxyzine HCl (Hydroxyzine Hcl 25 Mg Tablet) 25 mg PO BEDTIME PRN PRN Reason: Anxiety Last Admin: 11/28/21 00:15 Dose: 25 mg Documented by: Magnesium Hydroxide (Milk Of Magnesia 30 Ml Oral.Susp) 30 ml PO DAILY PRN PRN Reason: Constipation Mirtazapine (Mirtazapine 30 Mg Tablet) 30 mg PO BEDTIME [facility] Last Admin: 11/27/21 19:32 Dose: 30 mg Documented by: Multi-Ingred Medicated Throat [place] (Throat [place], Medicated 20 Ml Bottle) 1 spray MUCOUS MEM Q2H PRN PRN Reason: Sore Throat Nicotine (Nicotine 21 Mg Patch.Td24) 21 mg TRANSDERMA DAILY [facility] Last Admin: 11/27/21 08:37 Dose: 21 mg Documented by: Omeprazole (Omeprazole 40 Mg Capsule.Dr) 40 mg PO DAILY@0630 [facility] Last Admin: 11/28/21 06:08 Dose: 40 mg Documented by: Paroxetine HCl (Paroxetine Hcl 20 Mg Tablet) 20 mg PO DAILY [facility] Last Admin: 11/27/21 08:36 Dose: 20 mg Documented by: Pharmacy Consult (Consult Rx Perform Med Rec) 1 each MISCELLANE ONCE PRN PRN Reason: Consult order Prednisone (Prednisone 20 Mg Tablet) 20 mg PO DAILY [facility] Stop: 11/30/21 08:30 Last Admin: 11/27/21 08:36 Dose: 20 mg Documented by: Prednisone (Prednisone 10 Mg Tablet) 10 mg PO DAILY [facility] Stop: 12/03/21 08:30 Prednisone (Prednisone 5 Mg Tablet) 5 mg PO DAILY [facility] Stop: 12/06/21 09:00 Quetiapine Fumarate (Quetiapine Fumarate 300 Mg Tablet) 300 mg PO BEDTIME [facility] Last Admin: 11/27/21 19:33 Dose: 300 mg Documented by: Quetiapine Fumarate (Quetiapine Fumarate 100 Mg Tablet) 100 mg PO DAILY [facility] Last Admin: 11/27/21 08:37 Dose: 100 mg Documented by: Quetiapine Fumarate (Quetiapine Fumarate 50 Mg Tablet) 50 mg PO BID PRN PRN Reason: anxiety, agitation Last Admin: 11/27/21 16:02 Dose: 50 mg Documented by: Tiotropium [place] (Tiotropium [place] 18 Mcg Cap.W.Dev) 1 puff INHALE RDAILY [facility] Last Admin: 11/27/21 08:36 Dose: 1 puff Documented by: Trazodone HCl (Trazodone Hcl 100 Mg Tablet) 100 mg PO BEDTIME PRN PRN Reason: Insomnia Last Admin: 11/28/21 00:16 Dose: 100 mg Documented by: Verapamil HCl (Verapamil Hcl Sr 100 Mg Cap24h.Pct) 100 mg PO BEDTIME [facility]; Protocol Last Admin: 11/27/21 19:32 Dose: 100 mg Documented by: Allergies Allergies Allergy/AdvReac Type Severity Reaction Status Date / Time ibuprofen Allergy Intermediate Stomach Verified 10/10/21 08:16 Upset penicillin V Allergy Intermediate rash Verified 09/08/21 13:49 Assessment & Plan Assessment & Plan (1) Opioid use disorder: Status: Acute Code(s): F11.90 - Opioid use, unspecified, uncomplicated (2) Cocaine use disorder: Status: Acute Code(s): F14.10 - Cocaine abuse, uncomplicated (3) MDD (major depressive disorder), recurrent episode, moderate: Status: Acute Code(s): F33.1 - Major depressive disorder, recurrent, moderate Plan Augustin is a 56 y.o. Male who carries a dx of MDD recurrent and cocaine use disorder. Pt presented to [facility] ED on 11/22/2021 due to depression x one month, SI with plan to OD on cocaine, tearful, stated he feels like hurting himself. Precipitating factors include that he recently from his , she left and moved to [place] last week, living with [facility]. Pt was abstinent from cocaine x 10 years, relapsed last night. Pt has history of suicide attempts. Has co-morbid COPD, saturating on 95% room air. Plan: Pt does not want med changes. Recommend recovery team consult.? Q15 min safety checks, CV Monitor response to medications. Monitor for safety in the milieu. Discharge on stabilization. Patient seen. Chart reviewed. Discussed with team. Obtain collateral contact info?as needed 11/25/21- COVID testing, throat culture, pulmonary eval, throat lozenges/spray for pain. Chest X Ray 11/22 clear. No WBC increase 11/26/21- Looking for discharge on 11/29. Continue to monitor medically. Agrees to attend OP therapy upon discharge he reports. 11/27/2021: Continue current regimen and plans. Increase trazodone to 100 mg 11/28/2021: Continue current regimen and plans with discontinuation of trazodone and start of Thorazine 100 mg I spent minutes with the patient and/or on the patient floor today, greater than?50% of which was spent counseling/coordinating care. Patient educated on: medication risk/benefits Reason for contiued inpatient stay Substantial Risk for: med/psych decompensation
[2021-11-28] MEDS: PARoxetine HCL 20 MG TABLET PO (08:15)
[2021-11-28] MEDS: clonazePAM 1 MG TABLET PO ×2 (08:15→19:18)
[2021-11-28] MEDS: Fluticasone Propionate 100 MCG BLST.W.DEV 1 PUFF INHALE ×2 (08:15→19:19)
[2021-11-28] MEDS: QUEtiapine Fumarate 100 MG TABLET PO (08:15)
[2021-11-28] MEDS: predniSONE 20 MG TABLET PO (08:15)
[2021-11-28] MEDS: Nicotine 21 MG PATCH.TD24 TRANSDERMA (08:17)
[2021-11-28] MEDS: QUEtiapine Fumarate 50 MG TABLET PO (09:14)
[2021-11-28] MEDS: cloNIDine HCL 0.1 MG TABLET PO ×3 (09:14→16:21)
[2021-11-28 10:21] VITALS: PULSE 73; RESP 16; O2SAT 97
[2021-11-28] MEDS: Albuterol/Iprat 2.5/0.5MG 3 ML AMPUL.NEB INHALE (10:21)
[2021-11-28 13:53] VITALS: BP 111/65; PULSE 101
[2021-11-28 16:20] VITALS: BP 109/72; PULSE 107
[2021-11-28] MEDS: Atorvastatin Calcium 40 MG TABLET PO (19:18)
[2021-11-28] MEDS: chlorproMAZINE HCl 100 MG TABLET PO (19:18)
[2021-11-28] MEDS: Throat Lozenge, Medicated LOZENGE 1 LOZENGE MUCOUS MEM (19:18)
[2021-11-28] MEDS: Mirtazapine 30 MG TABLET PO (19:18)
[2021-11-28] MEDS: QUEtiapine Fumarate 300 MG TABLET PO (19:18)
[2021-11-28] MEDS: Ferrous Sulfate 324 MG TABLET.DR 325 MG PO (19:18)
[2021-11-29] MEDS: QUEtiapine Fumarate 50 MG TABLET PO ×2 (02:44→10:58)
[2021-11-29] MEDS: clonazePAM 1 MG TABLET PO ×2 (02:44→08:37)
[2021-11-29] MEDS: Acetaminophen 325 MG TABLET 650 MG PO (04:48)
[2021-11-29] MEDS: Albuterol Sulfate 90 MCG 8 GM INHALER 2 PUFF INHALE ×2 (04:48→09:21)
[2021-11-29 06:00] VITALS: BP 104/59; PULSE 85; RESP 18; TEMP 36.6; O2SAT 96
[2021-11-29] MEDS: Omeprazole 40 MG CAPSULE.DR PO (06:14)
[2021-11-29] MEDS: QUEtiapine Fumarate 100 MG TABLET PO (08:36)
[2021-11-29] MEDS: Fluticasone Propionate 100 MCG BLST.W.DEV 1 PUFF INHALE (08:36)
[2021-11-29] MEDS: predniSONE 20 MG TABLET PO (08:36)
[2021-11-29] MEDS: PARoxetine HCL 20 MG TABLET PO (08:36)
[2021-11-29] MEDS: Nicotine 21 MG PATCH.TD24 TRANSDERMA (08:36)
[2021-11-29] MEDS: cloNIDine HCL 0.1 MG TABLET PO (10:58)
[2021-11-29] MEDS: Benzonatate 100 MG CAPSULE PO (12:30)
--- NOTE | 2021-12-13 15:23 | PM.PSYDC ---
DS: Providers Provider Date of Service: 11/29/21 Date of admission: 11/23/21 14:51 Date of discharge: 11/29/21 Primary care physician: Vince Doran MD Admitting clinician: Bette Pitt Attending physician on admission: Bette Pitt Consults: 11/24/21 18:18 Addiction Medicine Routine Consulting Provider: Felecia Lou Reason for consultation: lifelong hx-?suboxone candidate-pt would like to explore this idea Has provider been notified: No 11/25/21 17:02 Consult to Pulmonology Routine Consulting Provider: Bay Alford Reason for consultation: severe COPD, productive cough, sore throat Has provider been notified: No Attending physician on discharge: Rebecca Mccartney Discharging clinician: Jian Chisholm DS: Diagnosis Discharge Diagnosis (1) MDD (major depressive disorder), recurrent episode, moderate: Status: Acute (2) Opioid use disorder: Status: Acute (3) Cocaine use disorder: Status: Acute DS: Medications Discharge Medications Home Medications: Home Medications Medication Instructions Recorded Confirmed atorvastatin 40 mg tablet (Lipitor) 1 tab PO BEDTIME 11/23/21 12/03/21 ferrous sulfate 325 mg (65 mg 1 tab PO BEDTIME 11/23/21 11/23/21 iron) tablet (FeroSul) fluticasone propionate 220 2 puff INHALATION BID 11/23/21 11/23/21 mcg/actuation HFA aerosol inhaler (Flovent HFA) ipratropium 0.5 mg-albuterol 3 mg 1 amp INHALATION TID 11/23/21 11/23/21 (2.5 mg base)/3 mL nebulization soln mirtazapine 30 mg tablet 1 tab PO BEDTIME 11/23/21 11/23/21 pantoprazole 40 mg tablet,delayed 1 tab PO QAM 11/23/21 11/23/21 release paroxetine HCl 20 mg tablet 1 tab PO QAM 11/23/21 11/23/21 quetiapine 100 mg tablet 1 tab PO QAM 11/23/21 11/23/21 tiotropium bromide 18 mcg capsule 1 cap INHALATION DAILY 11/23/21 11/23/21 with inhalation device (Spiriva with HandiHaler) verapamil 100 mg capsule 24hr 1 cap PO BEDTIME 11/23/21 11/23/[address],ext.release quetiapine 50 mg tablet 300 mg PO BEDTIME 12/03/21 Previous Rx's Medication Instructions Recorded albuterol sulfate 90 mcg/actuation 2 puff INHALATION Q4-6H PRN #8.5 g 07/07/21 aerosol inhaler nicotine 21 mg/24 hr daily 21 mg TRANSDERMAL DAILY 28 Days 11/29/21 transdermal patch #28 ea Mental Status Exam Mental Status Exam Patient Appearance: Appropriate Patient Orientation: Person, Place, Time and Situation Level of Consciousness: Awake and Appropriate Patient Behavior: Talkative and Cooperative Mood Description: Relaxed Speech Pattern: Clear Thought Process: Goal Oriented Judgement: Good Data Data Completed and Pending Completed studies during hospitalization [Text1]: 11/25/21 17:30 Throat Throat Culture - Final No Group A Beta-hemolytic Streptococci isolated. Imaging Diagnostic Imaging Impressions Chest X-Ray 11/22/21 15:43 IMPRESSION: No acute intrathoracic disease. Chest X-Ray 11/26/21 20:19 IMPRESSION: No acute finding. DS: Summary Hospital Course Hospital Course: Admission to adult psychiatry for exacerbation of recurrent major depression, relapse on cocaine after ten years of sobriety and in context of loss of partner, who has just moved to another state to pursue a new relationship. Pt reported SI with plan to overdose. Mirtazapine, paroxetine, quetiapine were re-established, out patient supports were organized with [place] and he was able to participate in discharge planning, re-establish safety and plan for his future. Time spent discussing smoking cessation with patient: 3 to 10 minutes Status at Discharge Functional status at discharge: independent ambulation Overall status at discharge: patient is progressing back to baseline Time Spent with Patient Time attestation: Total time spent providing and/or coordinating discharge services: Time spent: Less than 30 minutes Discharge Plan Discharge Patient Disposition: Home, Self-Care Discharge Diagnosis: MDD, recurrent, moderate Referrals: Gina Dickey [Other] - 12/01/21 3:00 pm (Initial Diagnostic Evaluation with outpatient therapist Appointment is by telephone ([facility]). Should you have difficulties with appointment. Please Call [facility]. ) [facility] [Other] - 1 Week (Fax- [phone] A referral has been made for a visiting nurse to help with medication- awaiting a start date from the agency.) Vince Doran MD [Primary Care Provider] - 12/08/21 9:00 am (FAX#[phone] ATTN [facility] - WILL BE SEEING DR. PATEL) Discharge Medications: New nicotine 21 mg/24 hr Patch 24 Hour 21 mg transdermal DAILY 28 Days Qty: 28 0RF Rx Instructions: remove at bedtime Continued atorvastatin [Lipitor] 40 mg tablet 1 tab PO BEDTIME 0RF ipratropium-albuterol 0.5 mg-3 mg(2.5 mg base)/3 mL solution for nebulization 1 amp inhalation TID 0RF quetiapine 100 mg tablet 1 tab PO QAM 0RF paroxetine HCl 20 mg tablet 1 tab PO QAM 0RF pantoprazole 40 mg tablet,delayed release (DR/EC) 1 tab PO QAM 0RF mirtazapine 30 mg tablet 1 tab PO BEDTIME 0RF ferrous sulfate [FeroSul] 325 mg (65 mg iron) tablet 1 tab PO BEDTIME 0RF verapamil 100 mg capsule, [address] 1 cap PO BEDTIME 0RF Flovent HFA 220 mcg/actuation HFA aerosol inhaler 2 puff inhalation BID 0RF Spiriva with HandiHaler 18 mcg capsule, w/inhalation device 1 cap inhalation DAILY 0RF albuterol sulfate 90 mcg/actuation HFA aerosol inhaler 2 puff inhalation Q4-6H PRN (Reason: shortness of breath or wheezing) Qty: 8.5 0RF No Action quetiapine 50 mg tablet 300 mg PO BEDTIME 0RF Discharge Orders: Discharge Order (Routine); Ordered 11/29/21 Ordered By: Jian Chisholm Diet: regular diet Activity on Discharge: As tolerated Stand Alone Forms: Patient Portal Discharge page, Community Support Care Plan Goals: Maintain mood and safe behaviors Take medications as prescribed Continue to pursue sobriety Practice coping skills Continue with outpatient providers and reach out to them as needed Health Concerns: Mood stability and behaviors Sobriety COPD Chronic Back pain Plan of Treatment: Follow up with your PCP, psychiatric provider and other outpatient providers regarding above concerns Take medications as prescribed Assessment: Risk assessment at time of discharge:? Patient was interviewed prior to discharge and found to be fully oriented and without any SI or HI. Patient has insight and demonstrates good judgment in terms of wanting to pursue treatment. Patient is not in imminent risk of harm to self or others and has a safety plan that includes presenting to the closest ER or calling 911 if feeling unsafe.? Patient has been observed closely by nursing and unit staff throughout admission; patient has not engaged in any behaviors that suggest dangerousness to self or others and has demonstrated appropriate behaviors and impulse control Patient Instructions: COPD (Chronic Obstructive Pulmonary Disease) (ED) Discharge Date/Time: 11/29/21 14:38
== END 2021-11-29 14:38 | disposition home or self-care (01) | DRG 751 ==
LOC: HO.ED 11-23 09:56 → HO.PM5 11-23 14:52
PROVIDERS: Internal Medicine; Admitting Provider Psychiatry & Neurology Psychiatry; Emergency Provider Emergency Medicine; PCP Internal Medicine; Visit Provider Clinical Nurse Specialist Psychiatric/Mental Health, Adult
DX: F33.1 Major depressive disorder, recurrent, moderate (principal); R45.851 Suicidal ideations; F14.10 Cocaine abuse, uncomplicated; F12.20 Cannabis dependence, uncomplicated; F11.90 Opioid use, unspecified, uncomplicated; J43.9 Emphysema, unspecified; Z20.822 Contact with and (suspected) exposure to COVID-19; Z87.891 Personal history of nicotine dependence; Z79.52 Long term (current) use of systemic steroids; Z79.899 Other long term (current) drug therapy
CPT/HCPCS: 0241U; 36415; 71045; 71046; 80048; 80053; 80061; 80307; 81001; 82607; 82746; 83036; 83690; 83735; 84439; 84443; 84484; 85025; 87071; 87635; 93005; 94640; 94644; 96365; 96366; 96375; 99285; J1885; J2930; J3475

== ENCOUNTER 2021-12-03 12:15 | Emergency (ER) | payer MEDICAID, SELFPAY ==
--- NOTE | 2021-12-03 12:22 | ED.PSYCH ---
HPI - Psych General Chief Complaint: Psychiatric Symptoms Stated Complaint: SEC 12 SI Time Seen by Provider: 12/03/21 12:21 Source: patient and EMS Mode of arrival: EMS Limitations: no limitations History of Present Illness HPI Narrative: 56-year-old male with a history of major depressive disorder, polysubstance abuse including cannabis, opioids, cocaine, history of suicidal ideation with history of multiple attempts, JERRY, COPD, pulmonary nodules who presents to the ER via EMS with suicidal ideation on a Section 12. He was reportedly making suicidal statements with visiting nurse. His recently left him any significant stressors at home. Upon review of records patient was recently admitted here on M5 from 11/23-11/26 with SI. MD complaint: suicidal ideation and feels depressed Onset (ago): unknown Duration: constant History of same: Yes Relieving factors: none Exacerbating factors: drug use Context: recent drug abuse Associated psychiatric symptoms: depression Associated symptoms: denies other symptoms Treatments prior to arrival: none Related Data Home Medications Medication Instructions Recorded Confirmed atorvastatin 40 mg tablet (Lipitor) 1 tab PO BEDTIME 11/23/21 12/03/21 ferrous sulfate 325 mg (65 mg 1 tab PO BEDTIME 11/23/21 11/23/21 iron) tablet (FeroSul) fluticasone propionate 220 2 puff INHALATION BID 11/23/21 11/23/21 mcg/actuation HFA aerosol inhaler (Flovent HFA) ipratropium 0.5 mg-albuterol 3 mg 1 amp INHALATION TID 11/23/21 11/23/21 (2.5 mg base)/3 mL nebulization soln mirtazapine 30 mg tablet 1 tab PO BEDTIME 11/23/21 11/23/21 pantoprazole 40 mg tablet,delayed 1 tab PO QAM 11/23/21 11/23/21 release paroxetine HCl 20 mg tablet 1 tab PO QAM 11/23/21 11/23/21 quetiapine 100 mg tablet 1 tab PO QAM 11/23/21 11/23/21 tiotropium bromide 18 mcg capsule 1 cap INHALATION DAILY 11/23/21 11/23/21 with inhalation device (Spiriva with HandiHaler) verapamil 100 mg capsule 24hr 1 cap PO BEDTIME 11/23/21 11/23/[address],ext.release quetiapine 50 mg tablet 300 mg PO BEDTIME 12/03/21 Previous Rx's Medication Instructions Recorded albuterol sulfate 90 mcg/actuation 2 puff INHALATION Q4-6H PRN #8.5 g 07/07/21 aerosol inhaler nicotine 21 mg/24 hr daily 21 mg TRANSDERMAL DAILY 28 Days 11/29/21 transdermal patch #28 ea Allergies Allergy/AdvReac Type Severity Reaction Status Date / Time ibuprofen Allergy Intermediate Stomach Verified 10/10/21 08:16 Upset penicillin V Allergy Intermediate rash Verified 09/08/21 13:49 Review of Systems Review of Systems: Constitutional: No Fever, No Chills ENT/Mouth: No sore throat, No Rhinorrhea Cardiovascular: No Chest Pain, No SOB, No Orthopnea, No Edema Respiratory: No Cough, No Sputum, No Wheezing, No dyspnea Gastrointestinal: No Nausea, No Vomiting, No Diarrhea, No abdominal Pain Musculoskeletal: No joint pain, No Myalgias Skin: No Skin Lesions, No rash Neuro: No Weakness, No Numbness, No Dizziness, No Headache Psych: No Anxiety/Panic, No Depression, +SI, No VH, No AH Heme/Lymph: No Bruising, No Lymphadenopathy Endocrine: No Polyuria, No Polydipsia [facility] Past Medical History Medical History (Updated 12/03/21 @ 18:10 by SANTOSH Singh) Anxiety Asthma Cannabis use disorder, moderate, dependence Cocaine use disorder Depression Emphysema of lung Nicotine dependence Opioid use disorder Recurrent major depression Surgical History Hx of cholecystectomy Social History Social History Household Members: None Housing: Apartment Do you presently have visiting nurse or other home services: No Unable to assess alcohol history related to: Unknown Alcohol intake: never Patient Tobacco Use Status: Former Tobacco user e-Cigarette/Vaping Use: Never Used Second Hand Smoke Exposure: No Substance Use Type: Crack/Cocaine and Opiates Advance Directives: No Advance Directives Information Provided: Yes service: No Sexual orientation: Straight/Heterosexual Physical Exam Vital Signs: Vital Signs: Last Vital Signs Temp 98.6 F 12/03/21 12:55 Pulse 95 12/03/21 12:55 Resp 16 12/03/21 12:55 BP 113/71 12/03/21 12:55 Pulse Ox 95 12/03/21 12:55 BMI result Body Mass Index 28.3 Appearance: Alert. Oriented X3. No acute distress. Eyes: Pupils equal, round and reactive to light. ENT: Pharynx normal. Neck: Normal inspection. Neck supple. CVS: Normal heart rate and rhythm. Pulses normal. Respiratory: No respiratory distress. Breath sounds normal. Abdomen: Soft and nontender. +BS x4 Skin: Skin warm and dry. Normal skin color. Normal skin turgor. No rashes. Extremities: No lower extremity edema. No evidence of track diamond. Neuro: Oriented X 3. No motor deficit. No sensory deficit. CN II-XII intact. Course Course Course Narrative: 56-year-old male with history of depression, polysubstance abuse, history of SI with several attempts in the past, recent hospitalization here for SI and depression who presents to the ER with relapse of cocaine use and worsening depression. Increased life stressors at home, his just left him. He was making suicidal statements to his visiting nurse at home. Will get basic labs, U tox, alcohol level and have the crisis team evaluate him. Reevaluation(s) Reevaluation #1: Labs unremarkable. Urinary toxicology is positive for cocaine and marijuana. He is sleeping comfortably at this time. Physician observation started at 4pm. Patient placed in physician observation because patient is awaiting [facility] evaluation for the possible need of inpatient psych admission. At the time observation was started patient's vital signs were stable. Patient is alert and oriented. Neuro exam is non-focal. CV: RRR and lungs are clear. Will continue to monitor. [facility] - Psych Medical Records Attestation: I reviewed the patient's medical records. Lab Data Attestation: I reviewed the patient's lab results. Result diagrams: 12/03/21 12:53 12/03/21 12:53 Labs: Lab Results 12/03/21 12/03/21 12/03/21 Range/Units 12:53 12:53 12:53 WBC 10.8 (4.8-10.8) X10*3/uL RBC 3.98 L (4.60-5.80) X10*6/uL Hgb 11.4 L (14.0-18.0) g/dl Hct 34.9 L (42.0-52.0) % MCV 87.7 (80.0-98.0) fL MCH 28.6 (27.0-33.0) pg MCHC 32.7 (31.0-36.0) g/dl RDW 15.9 (11.0-16.0) % Plt Count 387 (160-400) X10*3/uL MPV 8.8 L (9.4-12.4) fL Immature Gran % (Auto) 0.6 H (0.0-0.4) % Neut % (Auto) 67.1 (45-73) % Lymph % (Auto) 23.0 (20-40) % [place] % (Auto) 6.7 (2-11) % Eos % (Auto) 2.1 (0-4) % Baso % (Auto) 0.5 (0-2) % Lymph # (Auto) 2.5 (1.2-4.9) X10*3/uL [place] # (Auto) 0.7 (0.1-1.2) X10*3/uL Eos # (Auto) 0.2 (0.0-0.4) X10*3/uL Baso # (Auto) 0.1 (0.0-0.2) X10*3/uL Abs Immat Gran (auto) 0.06 H (0.00-0.03) X10*3/uL Absolute Neuts (auto) 7.3 (2.0-8.3) x10*3/uL Absolute Nucleated RBC 0.000 (0.0-0.012) X10*3/uL Nucleated RBC % (auto) 0.0 (0.0-0.2) /100WBC Sodium 139 (135-145) mmol/L Potassium 3.7 (3.3-5.1) mmol/L Chloride 104 (96-108) mmol/L Carbon Dioxide 28 (22-29) mmol/L Anion Gap 11 L (12-20) BUN 13 (9-16) mg/dL Creatinine 0.89 (0.5-1.4) mg/dL Estim Creat Clear Calc 86.6 Estimated GFR > 60 Random Glucose 108 (60-115) mg/dL Calcium 8.5 D (8.4-10.2) mg/dL Magnesium 2.3 (1.6-2.6) mg/dL Total Bilirubin 0.3 (0.0-1.0) mg/dL Direct Bilirubin < 0.2 (0.0-0.5) mg/dL AST 19 D (5-37) U/L ALT 23 (0-40) U/L Alkaline Phosphatase 87 (39-117) U/L Total Protein 6.0 L (6.5-8.0) g/dL Albumin 3.5 (3.5-5.0) g/dL Urine Color Urine Appearance Urine pH (5.0-8.0) Ur Specific [place] (1.005-1.025) Urine Protein (NEG-TRACE) MG/DL Urine Glucose (UA) (NEG) MG/DL Urine Ketones (NEG) MG/DL Urine Blood (NEG) Urine Nitrite (NEG) Ur Leukocyte Esterase (NEG) Urine RBC (0) /HPF Urine WBC (0-4) /HPF Ur Squamous Epith Cells /LPF Urine Bacteria /LPF Urine Mucus /LPF Ur Oval Fat Bodies (NONE) Urine Opiates Screen (Not Detect) Urine Fentanyl Screen (Not Detect) Ur Barbiturates Screen (Not Detect) Ur Phencyclidine Scrn (Not Detect) Ur Amphetamines Screen (Not Detect) U Benzodiazepines Scrn (Not Detect) Urine Cocaine Screen (Not Detect) U Marijuana (THC) Screen (Not Detect) Ethyl Alcohol mg/dL COVID-19 ([facility]) Negative (Negative) COVID-19 Clin Com See Note 12/03/21 12/03/21 12/03/21 Range/Units 12:53 12:53 12:53 WBC (4.8-10.8) X10*3/uL RBC (4.60-5.80) X10*6/uL Hgb (14.0-18.0) g/dl Hct (42.0-52.0) % MCV (80.0-98.0) fL MCH (27.0-33.0) pg MCHC (31.0-36.0) g/dl RDW (11.0-16.0) % Plt Count (160-400) X10*3/uL MPV (9.4-12.4) fL Immature Gran % (Auto) (0.0-0.4) % Neut % (Auto) (45-73) % Lymph % (Auto) (20-40) % [place] % (Auto) (2-11) % Eos % (Auto) (0-4) % Baso % (Auto) (0-2) % Lymph # (Auto) (1.2-4.9) X10*3/uL [place] # (Auto) (0.1-1.2) X10*3/uL Eos # (Auto) (0.0-0.4) X10*3/uL Baso # (Auto) (0.0-0.2) X10*3/uL Abs Immat Gran (auto) (0.00-0.03) X10*3/uL Absolute Neuts (auto) (2.0-8.3) x10*3/uL Absolute Nucleated RBC (0.0-0.012) X10*3/uL Nucleated RBC % (auto) (0.0-0.2) /100WBC Sodium (135-145) mmol/L Potassium (3.3-5.1) mmol/L Chloride (96-108) mmol/L Carbon Dioxide (22-29) mmol/L Anion Gap (12-20) BUN (9-16) mg/dL Creatinine (0.5-1.4) mg/dL Estim Creat Clear Calc Estimated GFR Random Glucose (60-115) mg/dL Calcium (8.4-10.2) mg/dL Magnesium (1.6-2.6) mg/dL Total Bilirubin (0.0-1.0) mg/dL Direct Bilirubin (0.0-0.5) mg/dL AST (5-37) U/L ALT (0-40) U/L Alkaline Phosphatase (39-117) U/L Total Protein (6.5-8.0) g/dL Albumin (3.5-5.0) g/dL Urine Color YELLOW Urine Appearance CLEAR Urine pH 6.0 (5.0-8.0) Ur Specific [place] >= 1.030 H (1.005-1.025) Urine Protein NEG (NEG-TRACE) MG/DL Urine Glucose (UA) NEG (NEG) MG/DL Urine Ketones NEG (NEG) MG/DL Urine Blood TRACE (NEG) Urine Nitrite NEG (NEG) Ur Leukocyte Esterase NEG (NEG) Urine RBC 1-4 (0) /HPF Urine WBC 0-2 (0-4) /HPF Ur Squamous Epith Cells TRACE /LPF Urine Bacteria NONE /LPF Urine Mucus 2+ /LPF Ur Oval Fat Bodies NOTED (NONE) Urine Opiates Screen Not Detected (Not Detect) Urine Fentanyl Screen Not Detected (Not Detect) Ur Barbiturates Screen Not Detected (Not Detect) Ur Phencyclidine Scrn Not Detected (Not Detect) Ur Amphetamines Screen Not Detected (Not Detect) U Benzodiazepines Scrn Not Detected (Not Detect) Urine Cocaine Screen POSITIVE H (Not Detect) U Marijuana (THC) Screen POSITIVE H (Not Detect) Ethyl Alcohol < 10 mg/dL COVID-19 ([facility]) (Negative) COVID-19 Clin Com ECG Data Attestation: I personally reviewed and interpreted this ECG as follows: ECG interpretation date: 12/03/21 ECG interpretation time: 18:11 Prior ECG tracings: available for review Interpretation: Normal sinus rhythm, heart rate 81 beats per minute, normal QTC, normal WA interval, normal EKG, no ST segment elevations or depressions. Discharge Plan Discharge Clinical Impression: Cocaine use disorder Patient Disposition: Home, Self-Care Instructions: Cocaine Abuse (ED) Additional Instructions: DO NOT USE COCAINE Follow up with your doctors and therapists Prescriptions: No Action atorvastatin [Lipitor] 40 mg tablet 1 tab PO BEDTIME 0RF ipratropium-albuterol 0.5 mg-3 mg(2.5 mg base)/3 mL solution for nebulization 1 amp inhalation TID 0RF quetiapine 100 mg tablet 1 tab PO QAM 0RF paroxetine HCl 20 mg tablet 1 tab PO QAM 0RF pantoprazole 40 mg tablet,delayed release (DR/EC) 1 tab PO QAM 0RF mirtazapine 30 mg tablet 1 tab PO BEDTIME 0RF ferrous sulfate [FeroSul] 325 mg (65 mg iron) tablet 1 tab PO BEDTIME 0RF verapamil 100 mg capsule, [address] 1 cap PO BEDTIME 0RF Flovent HFA 220 mcg/actuation HFA aerosol inhaler 2 puff inhalation BID 0RF Spiriva with HandiHaler 18 mcg capsule, w/inhalation device 1 cap inhalation DAILY 0RF nicotine 21 mg/24 hr Patch 24 Hour 21 mg transdermal DAILY 28 Days Qty: 28 0RF Rx Instructions: remove at bedtime albuterol sulfate 90 mcg/actuation HFA aerosol inhaler 2 puff inhalation Q4-6H PRN (Reason: shortness of breath or wheezing) Qty: 8.5 0RF quetiapine 50 mg tablet 300 mg PO BEDTIME 0RF
[2021-12-03 12:55] VITALS: BP 113/71; PULSE 95; RESP 16; TEMP 37; O2SAT 95; BMI 28.3
[2021-12-03 13:06] LABS: MANUAL DIFF FLAG NO
[2021-12-03 13:14] LABS: Appearance Urine CLEAR; Color Urine YELLOW; Glucose Urine UA NEG (NEG); Leukocyte Esterase Urine NEG (NEG); Nitrite Urine NEG (NEG); Specific Gravity - Urine >= 1.030 (1.005-1.025); UACC Culture Trigger NO; Urine Blood TRACE (NEG); Urine Ketones NEG (NEG); Urine Protein NEG (NEG-TRACE)
[2021-12-03 13:15] LABS: Basophils Absolute Auto 0.1 X10*3/uL (0.0-0.2); Basophils Percent Auto 0.5 % (0-2); Eosinophils Absolute Auto 0.2 X10*3/uL (0.0-0.4); Eosinophils Percent Auto 2.1 % (0-4); Hematocrit 34.9 % (42.0-52.0); Hemoglobin 11.4 g/dl (14.0-18.0); Imm Gran Abs Auto 0.06 X10*3/uL (0.00-0.03); Imm Gran Pct Auto 0.6 % (0.0-0.4); Lymphocytes Absolute Auto 2.5 X10*3/uL (1.2-4.9); Mean Corpuscular HGB Conc 32.7 g/dl (31.0-36.0); Mean Corpuscular Hemoglobin 28.6 pg (27.0-33.0); Mean Corpuscular Volume 87.7 fL (80.0-98.0); Mean Platelet Volume 8.8 fL (9.4-12.4); Monocytes Absolute Auto 0.7 X10*3/uL (0.1-1.2); Monocytes Percent Auto 6.7 % (2-11); Neutrophils Absolute Auto 7.3 x10*3/uL (2.0-8.3); Neutrophils Percent Auto 67.1 % (45-73); Platelet Count 387 X10*3/uL (160-400); Red Blood Count 3.98 X10*6/uL (4.60-5.80); Red Cell Distribution Width 15.9 % (11.0-16.0); White Blood Count 10.8 X10*3/uL (4.8-10.8)
[2021-12-03 13:21] LABS: Ethanol < 10 mg/dL
[2021-12-03 13:22] LABS: COVID-19 Test Negative (Negative); IDNOW Serial# 16C4AD1C
[2021-12-03 13:25] LABS: Alanine Aminotransferase 23 U/L (0-40); Albumin Level 3.5 g/dL (3.5-5.0); Alkaline Phosphatase 87 U/L (39-117); Anion Gap 11 (12-20); Aspartate Amino Transferase 19 U/L (5-37); Bilirubin Direct < 0.2 mg/dL (0.0-0.5); Bilirubin Total 0.3 mg/dL (0.0-1.0); Blood Urea Nitrogen 13 mg/dL (9-16); Calcium 8.5 mg/dL (8.4-10.2); Carbon Dioxide 28 mmol/L (22-29); Chloride 104 mmol/L (96-108); Creatinine Clr Calc Pharmacy 86.6; Estimated Glomerular Filt Rate > 60; Glucose Random 108 mg/dL (60-115); Magnesium 2.3 mg/dL (1.6-2.6); Potassium 3.7 mmol/L (3.3-5.1); Sodium 139 mmol/L (135-145)
[2021-12-03 13:30] LABS: Mucus Urine 2+ /LPF; Oval Fat Bodies Urine NOTED; Squamous Epithelial Cell Urine TRACE /LPF; WBC Urine 0-2 /HPF (0-4)
[2021-12-03 13:36] LABS: Amphetamine Screen Urine Not Detected (Not Detect); Barbiturates, Urine Not Detected (Not Detect); Benzodiazepines Screen Urine Not Detected (Not Detect); Cannabinoid Screen Urine POSITIVE (Not Detect); Cocaine Screen Urine POSITIVE (Not Detect); Fentanyl, urine Not Detected (Not Detect); Opiate Screen Urine Not Detected (Not Detect); Phencyclidine Screen Urine Not Detected (Not Detect)
--- NOTE | 2021-12-03 17:17 | ECG_ITS ---
Test Reason : cocaine use Blood Pressure : / mmHG Vent. Rate : 081 BPM Atrial Rate : 081 BPM P-R Int : 148 ms QRS Dur : 098 ms QT Int : 376 ms P-R-T Axes : 082 005 073 degrees QTc Int : 436 ms Normal sinus rhythm Normal ECG When compared with ECG of 22-NOV-2021 15:38, Incomplete right bundle branch block is no longer Present Referred By: Roro Fisher Electronically Signed By:FREDI LACKEY
--- NOTE | 2021-12-03 17:46 | MHC.RECOVSUP ---
? Reason for consult o Current location: o Identified substance use concern: - Support ? Intervention: o Community resources provided o Harm reduction discussion ? Plan: o Patient awaiting crisis evaluation o Patient to follow up with [facility] after discharge ? Additional information: Met with Patient... Patient stated that yes he is/was depressed. But that he on new meds and they still haven't started to help much.. but hopes they do soon.. Patient even talked about moving out of [place]...
--- NOTE | 2021-12-03 20:07 | MHC.CARE ---
Pt is being seen by the CARE TEAM due to expressing increase depression and relapse of cocaine. He reported he became anxious when his visiting nurse did not arrive on time, resulting in him relapsing on cocaine. He explained he began to think about his relationship stressors and expressed suicidal ideation with no specific plan. He denies current SI as he stated he as had time to think about his behavior while in ED. He reported he was consulted by [place] [employer] and is interested in attending meetings . Pt does not appear to be at immediate risk of hurting himself or others at this time. He would benefit from following up with his current providers.
== END 2021-12-03 18:15 | disposition home or self-care (01) ==
PROVIDERS: Physician Assistant; Emergency Provider Emergency Medicine Emergency Medical Services; PCP Internal Medicine
DX: F14.10 Cocaine abuse, uncomplicated (principal); F11.10 Opioid abuse, uncomplicated; F12.10 Cannabis abuse, uncomplicated; F32.A Depression, unspecified; R45.851 Suicidal ideations; J43.9 Emphysema, unspecified; Z91.51 Personal history of suicidal behavior; Z63.0 Problems in relationship with spouse or partner; Z20.822 Contact with and (suspected) exposure to COVID-19
CPT/HCPCS: 80048; 80076; 80307; 81001; 82077; 83735; 85025; 87635; 93005; 99282; 99284

== ENCOUNTER 2022-01-26 01:48 | Emergency (ER) | payer MEDICAID, SELFPAY ==
--- NOTE | 2022-01-26 | ECG_ITS ---
Test Reason : WEAKNESS Blood Pressure : / mmHG Vent. Rate : 072 BPM Atrial Rate : 072 BPM P-R Int : 156 ms QRS Dur : 098 ms QT Int : 406 ms P-R-T Axes : 078 -18 076 degrees QTc Int : 444 ms Normal sinus rhythm with sinus arrhythmia Incomplete right bundle branch block Borderline ECG When compared with ECG of 03-DEC-2021 17:18, Incomplete right bundle branch block is now Present Referred By: Scooby Brooks Electronically Signed By:AKASH SUAREZ MD
--- NOTE | ~2022-01-26 | CT_ITS ---
EXAMINATION: CT HEAD WITHOUT CONTRAST CLINICAL INFORMATION: Headache, lightheadedness COMPARISON: 01/06/2021 TECHNIQUE: Contiguous axial imaging was performed from the skull base to vertex without intravenous administration of contrast. This CT examination was performed using dose optimization techniques as appropriate, variously including the following: *Automated exposure control *Adjustment of mA and/or kV according to patient size (this includes techniques or standardized protocols for targeted exams where dose is matched to indication/reason for exam; i.e. extremities or head) *Use of iterative reconstruction technique DLP: 592 mGy-cm FINDINGS: There is no evidence of acute intracranial hemorrhage or territorial infarction. No abnormal mass effect or midline shift is seen. Hood to white matter differentiation is well preserved. No extra-axial fluid collections are identified. The ventricles are normal in size. There is mild periventricular white matter hypoattenuation consistent with chronic small vessel ischemic disease. Mild volume loss is noted. The osseous structures and soft tissues are normal. There is mucosal thickening of the right sphenoid sinus. The mastoid air cells are well-aerated. CT/CT head/brain wo con IMPRESSION: No acute intracranial pathology.
--- NOTE | ~2022-01-26 | XR_ITS ---
EXAMINATION: XR CHEST CLINICAL INFORMATION: No acute cardiopulmonary findings. COMPARISON: 11/22/2021 TECHNIQUE: Frontal view of the chest was obtained. FINDINGS: Lung volumes are symmetric. No focal consolidation is seen. No evidence of pneumothorax, pleural effusion, or pulmonary edema. The cardiomediastinal contour is unremarkable. Redemonstrated right clavicular deformity. XR/XR chest 1V IMPRESSION: No acute cardiopulmonary findings.
--- NOTE | ~2022-01-26 | CT_ITS ---
EXAMINATION: CT ANGIOGRAM NECK AND HEAD CLINICAL INFORMATION: Headache COMPARISON: Noncontrast head CT from earlier today TECHNIQUE: Test bolus sequences followed by intravenous administration 70 mL of Omnipaque 350. Helical imaging was performed in the axial plane from the thoracic inlet to the skull vertex. Delayed postcontrast imaging of the head was also performed. The data was processed at the extractions technologist's workstation for generation of MIP sequences. Angled MIPs and volume rendered reformatted images were also generated at an offline 3D workstation. Stenoses are assessed in accordance with NASCET criteria unless otherwise indicated. DOSE LOWERING TECHNIQUES: This CT examination was performed using dose optimization techniques as appropriate, variously including the following: - Automated exposure control - Adjustment of mA and/or kV according to patient size (this includes techniques or standardized protocols for targeted exams were dose is matched to indication/reason for exam; i.e. extremities or head) - Use of iterative reconstruction technique DLP: 1471 mGy-cm FINDINGS: Neck CTA: Limited evaluation in some regions due to motion artifact. There is a classic 3 vessel branching pattern of the aortic arch. Normal appearance of the visualized aortic arch and proximal branches. No evidence of stenosis at the branch origins. Both vertebral arteries are widely patent throughout their extracranial cervical course. There are scattered calcifications along the proximal left internal carotid artery without significant luminal narrowing. Otherwise normal appearance of the common and internal carotid arteries without focal stenosis. Brain CTA: Normal appearance of the intradural vertebral arteries. Normal appearance of the basilar and superior cerebellar arteries. Normally opacified posterior communicating arteries, and there is origin of the left posterior cerebral artery. Normal opacification of the posterior cerebral arteries bilaterally. Normal appearance of the intradural internal carotid arteries without focal stenosis. Normal appearance of the anterior cerebral and middle cerebral arteries without focal occlusion or stenosis. Normal anterior communicating artery. Normal arborization of the middle cerebral arteries. CT Head: No intracranial mass, hemorrhage, extra-axial collection, or midline shift. The vidal-white matter differentiation is preserved. There is mild periventricular white matter hypoattenuation consistent with chronic small vessel ischemic disease. No pathologic intra-axial enhancement or regional oligemia. No hydrocephalus. There is mucosal thickening of the right maxillary sinus. Mastoid air cells are well aerated. CT Neck: The thyroid gland and remaining cervical soft tissues are normal in appearance. There is disc space narrowing and endplate osteophyte formation in the lower cervical spine. Upper Chest: Emphysema is noted at the lung apices. CT/CT angio head neck IMPRESSION: No hemodynamically significant stenosis in the major arteries of the neck. No large vessel occlusion or significant stenosis in the intracranial circulation.
[2022-01-26 01:58] VITALS: BP 153/90; BP 153/95; PULSE 80; PULSE 87; RESP 14; TEMP 36.8; O2SAT 93; O2SAT 95; BMI 24.9
[2022-01-26 02:19] VITALS: PULSE 89; TEMP 36.8
--- NOTE | 2022-01-26 03:23 | ECG_ITS ---
Test Reason : HEADACHE Blood Pressure : / mmHG Vent. Rate : 089 BPM Atrial Rate : 089 BPM P-R Int : 152 ms QRS Dur : 096 ms QT Int : 382 ms P-R-T Axes : 083 014 081 degrees QTc Int : 464 ms Poor data quality Normal sinus rhythm Normal ECG When compared with ECG of 26-JAN-2022 02:01, No significant change was found Referred By: Scooby Brooks Electronically Signed By:AKASH SUAREZ MD
[2022-01-26] MEDS: 0.9 % Sodium Chloride 1,000 ML 999 ML IV ×2 (03:44→04:16)
[2022-01-26 03:55] LABS: Basophils Percent Auto 0.5 % (0-2); Eosinophils Absolute Auto 0.4 X10*3/uL (0.0-0.4); Eosinophils Percent Auto 6.1 % (0-4); Hematocrit 38.1 % (42.0-52.0); Hemoglobin 12.4 g/dl (14.0-18.0); Imm Gran Abs Auto 0.02 X10*3/uL (0.00-0.03); Imm Gran Pct Auto 0.3 % (0.0-0.4); Lymphocytes Absolute Auto 1.7 X10*3/uL (1.2-4.9); Lymphocytes Percent Auto 28.7 % (20-40); MANUAL DIFF FLAG NO; Mean Corpuscular HGB Conc 32.5 g/dl (31.0-36.0); Mean Corpuscular Hemoglobin 28.5 pg (27.0-33.0); Mean Corpuscular Volume 87.6 fL (80.0-98.0); Mean Platelet Volume 8.4 fL (9.4-12.4); Monocytes Absolute Auto 0.5 X10*3/uL (0.1-1.2); Monocytes Percent Auto 8.7 % (2-11); Neutrophils Absolute Auto 3.2 x10*3/uL (2.0-8.3); Neutrophils Percent Auto 55.7 % (45-73); Platelet Count 382 X10*3/uL (160-400); Red Blood Count 4.35 X10*6/uL (4.60-5.80); Red Cell Distribution Width 15.7 % (11.0-16.0); White Blood Count 5.8 X10*3/uL (4.8-10.8)
[2022-01-26 04:07] LABS: COVID-19 Test Negative (Negative)
[2022-01-26 04:15] LABS: Troponin-I High Sensitivity 4.9 ng/L (<3.5-35.0)
[2022-01-26] MEDS: ondansetron HCL 4 MG/2 ML VIAL IVPUSH (04:15)
[2022-01-26 04:19] LABS: Alanine Aminotransferase 10 U/L (0-40); Albumin Level 3.6 g/dL (3.5-5.0); Alkaline Phosphatase 100 U/L (39-117); Anion Gap 13 (12-20); Aspartate Amino Transferase 16 U/L (5-37); Bilirubin Direct 0.2 mg/dL (0.0-0.5); Bilirubin Total 0.2 mg/dL (0.0-1.0); Blood Urea Nitrogen 9 mg/dL (9-16); Calcium 8.9 mg/dL (8.4-10.2); Carbon Dioxide 27 mmol/L (22-29); Chloride 106 mmol/L (96-108); Creatinine Clr Calc Pharmacy 80.2; Estimated Glomerular Filt Rate > 60; Glucose Random 92 mg/dL (60-115); Lipase 14 U/L (8-78); Potassium 3.6 mmol/L (3.3-5.1); Sodium 142 mmol/L (135-145); Total Protein 6.2 g/dL (6.5-8.0)
[2022-01-26] MEDS: Morphine Sulfate 2 MG/ML CARTRIDGE IVPUSH (05:07)
[2022-01-26] MEDS: iohexoL 350 MG/ML 100 ML INFUS..BTL IV (05:28)
--- NOTE | 2022-01-26 06:27 | ED_ITS ---
HPI - Headache General Chief Complaint: Headache Stated Complaint: headache, lighthead Time Seen by Provider: 01/26/22 03:22 Source: patient and [employer] Mode of arrival: EMS Limitations: no limitations History of Present Illness HPI Narrative: 56 years old male came in by ambulance for evaluation of headache. Patient was watching TV when he started to have itching in the scalp followed by headache on the top of his head, describes the pain as dull aching headache associated with blurry vision, felt nauseous. Pain was described as constant severe 10/10, no weakness or numbness. Patient is a formal drug abuser had recent use of cocaine and heroin after had an argument with his . Patient otherwise decline SI or HI or depression. No chest pain or shortness of breath or abdominal pain. Related Data Home Medications Medication Instructions Recorded Confirmed atorvastatin 40 mg tablet (Lipitor) 1 tab PO BEDTIME 11/23/21 12/03/21 ferrous sulfate 325 mg (65 mg 1 tab PO BEDTIME 11/23/21 11/23/21 iron) tablet (FeroSul) fluticasone propionate 220 2 puff inhalation BID 11/23/21 11/23/21 mcg/actuation HFA aerosol inhaler (Flovent HFA) ipratropium 0.5 mg-albuterol 3 mg 1 amp inhalation TID 11/23/21 11/23/21 (2.5 mg base)/3 mL nebulization soln mirtazapine 30 mg tablet 1 tab PO BEDTIME 11/23/21 11/23/21 pantoprazole 40 mg tablet,delayed 1 tab PO QAM 11/23/21 11/23/21 release paroxetine HCl 20 mg tablet 1 tab PO QAM depressive disorder 11/23/21 11/23/21 quetiapine 100 mg tablet 1 tab PO QAM depressive disorder 11/23/21 11/23/21 tiotropium bromide 18 mcg capsule 1 cap inhalation DAILY 11/23/21 11/23/21 with inhalation device (Spiriva with HandiHaler) verapamil 100 mg capsule 24hr 1 cap PO BEDTIME 11/23/21 11/23/[address],ext.release quetiapine 50 mg tablet 300 mg PO BEDTIME 12/03/21 Previous Rx's Medication Instructions Recorded albuterol sulfate 90 mcg/actuation 2 puff inhalation Q4-6H PRN 07/07/21 aerosol inhaler shortness of breath or wheezing #8.5 grams nicotine 21 mg/24 hr daily 21 mg transdermal DAILY 28 days 11/29/21 transdermal patch #28 ea Allergies Allergy/AdvReac Type Severity Reaction Status Date / Time ibuprofen Allergy Intermediate Stomach Verified 10/10/21 08:16 Upset penicillin V Allergy Intermediate rash Verified 09/08/21 13:49 Review of Systems Review of Systems: All other systems are reviewed and are negative Constitutional: Reports as per HPI and Reports no additional constitutional complaints Eyes: Reports as per HPI and Reports no additional eye complaints Reports system reviewed and no additional complaints, except as documented Cardiovascular: Reports as per HPI and Reports no additional cardiovascular complaints Respiratory: Reports as per HPI and Reports no additional respiratory complaints Gastrointestinal: Reports as per HPI and Reports no additional gastrointestinal complaints Genitourinary: Reports no additional female genitourinary complaints Musculoskeletal: Reports no additional musculoskeletal complaints Skin/Breast: Reports system reviewed and no additional complaints, except as docu Psychiatric: Reports no additional psychiatric complaints Endocrine: Reports no additional endocrine complaints Hematologic/Lymphatic: Reports no additional hematologic/lymphatic complaints Allergic/Immunologic: Reports no additional allergic/immunologic complaints Reports system reviewed and no additional complaints, except as documented and Reports Abnormal speech present [facility] Past Medical History Medical History Anxiety Asthma Cannabis use disorder, moderate, dependence Cocaine use disorder Depression Emphysema of lung Nicotine dependence Opioid use disorder Surgical History Hx of cholecystectomy Social History Social History Household Members: None Housing: Apartment Do you presently have visiting nurse or other home services: No Unable to assess alcohol history related to: Unknown Alcohol intake: never Patient Tobacco Use Status: Former Tobacco user e-Cigarette/Vaping Use: Never Used Second Hand Smoke Exposure: No Substance Use Type: Crack/Cocaine and Opiates Advance Directives: No Advance Directives Information Provided: No service: No Sexual orientation: Straight/Heterosexual Physical Exam Vital Signs: Vital Signs: Last Vital Signs Temp 98.3 F 01/26/22 02:19 Pulse 89 01/26/22 02:19 Resp 14 01/26/22 01:58 BP 153/90 H 01/26/22 01:58 Pulse Ox 93 01/26/22 01:58 O2 Del Method 01/26/22 01:58 BMI result Body Mass Index 24.9 Vital signs have been reviewed as appeared to be correct. Blood pressure normal. Heart rate normal. Respiration rate normal. Temperature normal. Oxygen saturation normal. Appearance: Alert. Oriented X3. No acute distress. Head: Normal external exam. Normocephalic. Atraumatic. No Thrasher signs noted. No raccoon eyes noted Eyes: PERRLA. EOMI. Conjunctiva and sclera normal. Eyelids normal. ENT: TM's Normal. Pharynx normal. Uvula midline. Moist mucous membranes. No trismus noted. No drooling noted. No muffled voice noted. Neck: Normal inspection. Neck supple. FROM. No adenopathy. Thyroid Normal. No meningeal signs. No neck mass noted. CVS: Normal heart rate and rhythm. Heart sound normal. No murmurs noted. Pulses normal throughout. Respiratory: No respiratory distress. Painless inspiration. Breath sounds normal. No wheezes/rales/rhonchi noted. Chest nontender. No accessory muscle usage noted or decreased air movement noted. Abdomen: Soft and nontender. Bowel sounds normal in all 4 quadrants. No distention noted. No organomegaly noted. No visible injury noted. Back: No CVA tenderness. Full range of motion noted. Skin: Skin warm and dry. Normal skin color. Normal skin turgor. No rashes/lesions/lacerations noted. Extremities: No lower extremity edema. Extremities exhibit normal range of motion. Extremities nontender. Neuro: Oriented X 3. Cranial nerve exam: II-XII are grossly intact No motor deficit. No sensory deficit. Reflexes normal. NIH Stroke Scale Internal: Initial- Upon Arrival Level of Consciousness: Alert Level of Consciousness Questions: Answers both questions correctly Level of Consciousness Commands: Performs both tasks correctly Best Gaze: Normal Visual: No visual loss Facial Palsy: Normal Motor Arm (Right): No drift Motor Arm (Left): No drift Motor Leg (Right): No drift Motor Leg (Left): No drift Limb Ataxia: Absent Sensory: Normal Best Language: No aphasia Dysarthia: Normal Extinction and Inattention: No abnormality Score: 0 Course Course Course Narrative: 56-year-old male came in with sudden onset of headache and feeling nauseous, patient has a normal neuro exam with NIH score of 0, CT head was unremarkable, CT of the head did not reveal cerebral aneurysm or obvious intravascular obstruction. Patient's neuro exam remained unchanged, patient now is asking for detox because he was sober for a long time had to use drug after had argument with his patient has no depression/SI/HI. MDM - Headache Medical Records Attestation: I reviewed the patient's medical records. Lab Data Attestation: I reviewed the patient's lab results. Result diagrams: 01/26/22 03:49 01/26/22 03:49 Labs: Lab Results 01/26/22 01/26/22 01/26/22 Range/Units 03:49 03:49 03:49 WBC 5.8 (4.8-10.8) X10*3/uL RBC 4.35 L (4.60-5.80) X10*6/uL Hgb 12.4 L (14.0-18.0) g/dl Hct 38.1 L (42.0-52.0) % MCV 87.6 (80.0-98.0) fL MCH 28.5 (27.0-33.0) pg MCHC 32.5 (31.0-36.0) g/dl RDW 15.7 (11.0-16.0) % Plt Count 382 (160-400) X10*3/uL MPV 8.4 L (9.4-12.4) fL Immature Gran % (Auto) 0.3 (0.0-0.4) % Neut % (Auto) 55.7 (45-73) % Lymph % (Auto) 28.7 (20-40) % [place] % (Auto) 8.7 (2-11) % Eos % (Auto) 6.1 H (0-4) % Baso % (Auto) 0.5 (0-2) % Lymph # (Auto) 1.7 (1.2-4.9) X10*3/uL [place] # (Auto) 0.5 (0.1-1.2) X10*3/uL Eos # (Auto) 0.4 (0.0-0.4) X10*3/uL Baso # (Auto) 0.0 (0.0-0.2) X10*3/uL Abs Immat Gran (auto) 0.02 (0.00-0.03) X10*3/uL Absolute Neuts (auto) 3.2 (2.0-8.3) x10*3/uL Absolute Nucleated RBC 0.000 (0.0-0.012) X10*3/uL Nucleated RBC % (auto) 0.0 (0.0-0.2) /100WBC Sodium 142 (135-145) mmol/L Potassium 3.6 (3.3-5.1) mmol/L Chloride 106 (96-108) mmol/L Carbon Dioxide 27 (22-29) mmol/L Anion Gap 13 (12-20) BUN 9 (9-16) mg/dL Creatinine 0.84 (0.5-1.4) mg/dL Estim Creat Clear Calc 80.2 Estimated GFR > 60 Random Glucose 92 (60-115) mg/dL Calcium 8.9 (8.4-10.2) mg/dL Total Bilirubin 0.2 (0.0-1.0) mg/dL Direct Bilirubin 0.2 (0.0-0.5) mg/dL AST 16 (5-37) U/L ALT 10 (0-40) U/L Alkaline Phosphatase 100 (39-117) U/L Troponin I High Sens 4.9 (<3.5-35.0) ng/L Total Protein 6.2 L (6.5-8.0) g/dL Albumin 3.6 (3.5-5.0) g/dL Lipase 14 (8-78) U/L COVID-19 ([facility]) (Negative) COVID-19 Clin Com 01/26/22 Range/Units 03:49 WBC (4.8-10.8) X10*3/uL RBC (4.60-5.80) X10*6/uL Hgb (14.0-18.0) g/dl Hct (42.0-52.0) % MCV (80.0-98.0) fL MCH (27.0-33.0) pg MCHC (31.0-36.0) g/dl RDW (11.0-16.0) % Plt Count (160-400) X10*3/uL MPV (9.4-12.4) fL Immature Gran % (Auto) (0.0-0.4) % Neut % (Auto) (45-73) % Lymph % (Auto) (20-40) % [place] % (Auto) (2-11) % Eos % (Auto) (0-4) % Baso % (Auto) (0-2) % Lymph # (Auto) (1.2-4.9) X10*3/uL [place] # (Auto) (0.1-1.2) X10*3/uL Eos # (Auto) (0.0-0.4) X10*3/uL Baso # (Auto) (0.0-0.2) X10*3/uL Abs Immat Gran (auto) (0.00-0.03) X10*3/uL Absolute Neuts (auto) (2.0-8.3) x10*3/uL Absolute Nucleated RBC (0.0-0.012) X10*3/uL Nucleated RBC % (auto) (0.0-0.2) /100WBC Sodium (135-145) mmol/L Potassium (3.3-5.1) mmol/L Chloride (96-108) mmol/L Carbon Dioxide (22-29) mmol/L Anion Gap (12-20) BUN (9-16) mg/dL Creatinine (0.5-1.4) mg/dL Estim Creat Clear Calc Estimated GFR Random Glucose (60-115) mg/dL Calcium (8.4-10.2) mg/dL Total Bilirubin (0.0-1.0) mg/dL Direct Bilirubin (0.0-0.5) mg/dL AST (5-37) U/L ALT (0-40) U/L Alkaline Phosphatase (39-117) U/L Troponin I High Sens (<3.5-35.0) ng/L Total Protein (6.5-8.0) g/dL Albumin (3.5-5.0) g/dL Lipase (8-78) U/L COVID-19 ([facility]) Negative (Negative) COVID-19 Clin Com See Note Imaging Data Head CT: Attestation: I personally reviewed and interpreted this imaging study as follows: Radiologist's impression: No acute intracranial pathology. CT angiogram of head and neck.: Attestation: I personally reviewed and interpreted this imaging study as follows: Radiologist's impression: No hemodynamically significant stenosis in the major arteries of the neck. No large vessel occlusion or significant stenosis in the intracranial circulation. ECG Data Attestation: I personally reviewed and interpreted this ECG as follows: Interpretation: Normal sinus rhythm at 89 beats per minutes, normal intervals, no ST-T changes. Discharge Plan Discharge Clinical Impression: Substance abuse, Headache Patient Disposition: Home, Self-Care Instructions: Acute Headache (ED) Prescriptions: No Action atorvastatin [Lipitor] 40 mg tablet 1 tab PO BEDTIME ipratropium-albuterol 0.5 mg-3 mg(2.5 mg base)/3 mL solution for nebulization 1 amp inhalation TID quetiapine 100 mg tablet 1 tab PO QAM paroxetine HCl 20 mg tablet 1 tab PO QAM pantoprazole 40 mg tablet,delayed release (DR/EC) 1 tab PO QAM mirtazapine 30 mg tablet 1 tab PO BEDTIME ferrous sulfate [FeroSul] 325 mg (65 mg iron) tablet 1 tab PO BEDTIME verapamil 100 mg capsule, [address] 1 cap PO BEDTIME Flovent HFA 220 mcg/actuation HFA aerosol inhaler 2 puff inhalation BID Spiriva with HandiHaler 18 mcg capsule, w/inhalation device 1 cap inhalation DAILY nicotine 21 mg/24 hr Patch 24 Hour 21 mg transdermal DAILY 28 Days Qty: 28 0RF Rx Instructions: remove at bedtime albuterol sulfate 90 mcg/actuation HFA aerosol inhaler 2 puff inhalation Q4-6H PRN (Reason: shortness of breath or wheezing) Qty: 8.5 0RF quetiapine 50 mg tablet 300 mg PO BEDTIME Referrals: Vince Doran MD [Primary Care Provider] -
[2022-01-26] MEDS: Ketorolac Tromethamine 30 MG/ML VIAL IVPUSH (06:31)
[2022-01-26 06:34] VITALS: BP 147/82; PULSE 76
--- NOTE | 2022-01-26 06:34 | PC.NURSE ---
pt requesting information for detox from narcotics, aware, pt provided with out patient resources
== END 2022-01-26 06:44 | disposition home or self-care (01) ==
PROVIDERS: Emergency Provider Emergency Medicine; PCP Internal Medicine
DX: R51.9 Headache, unspecified (principal); F41.9 Anxiety disorder, unspecified; J45.909 Unspecified asthma, uncomplicated; Z20.822 Contact with and (suspected) exposure to COVID-19; F19.10 Other psychoactive substance abuse, uncomplicated; F14.10 Cocaine abuse, uncomplicated; F11.90 Opioid use, unspecified, uncomplicated; F12.20 Cannabis dependence, uncomplicated; F17.200 Nicotine dependence, unspecified, uncomplicated; Z90.49 Acquired absence of other specified parts of digestive tract
CPT/HCPCS: 36415; 70450; 70496; 70498; 71045; 80048; 80076; 83690; 84484; 85025; 87635; 93005; 96361; 96374; 96375; 99284; 99285; J1885; J2270; J2405; Q9967

== ENCOUNTER 2022-02-08 16:16 | Inpatient (IN) | payer OTHER, SELFPAY ==
--- NOTE | 2022-02-08 16:34 | ED_ITS ---
HPI - Psych General Chief Complaint: Psychiatric Symptoms Stated Complaint: SI Time Seen by Provider: 02/08/22 16:34 Source: patient Mode of arrival: EMS Limitations: no limitations History of Present Illness HPI Narrative: Patient history of major depressive disorder cocaine abuse COPD recently broke up with relationship using cocaine under lot of stress need need help seen at [facility] plan to get admitted for severe depression and suicidal thoughts Related Data Home Medications Medication Instructions Recorded Confirmed atorvastatin 40 mg tablet (Lipitor) 1 tab PO BEDTIME 11/23/21 12/03/21 ferrous sulfate 325 mg (65 mg 1 tab PO BEDTIME 11/23/21 02/08/22 iron) tablet (FeroSul) fluticasone propionate 220 2 puff inhalation BID 11/23/21 11/23/21 mcg/actuation HFA aerosol inhaler (Flovent HFA) ipratropium 0.5 mg-albuterol 3 mg 1 amp inhalation TID 11/23/21 11/23/21 (2.5 mg base)/3 mL nebulization soln mirtazapine 30 mg tablet 1 tab PO BEDTIME 11/23/21 02/08/22 pantoprazole 40 mg tablet,delayed 1 tab PO QAM 11/23/21 02/08/22 release paroxetine HCl 20 mg tablet 1 tab PO QAM depressive disorder 11/23/21 11/23/21 quetiapine 100 mg tablet 1 tab PO QAM depressive disorder 11/23/21 02/08/22 tiotropium bromide 18 mcg capsule 1 cap inhalation DAILY 11/23/21 02/08/22 with inhalation device (Spiriva with HandiHaler) verapamil 100 mg capsule 24hr 1 cap PO BEDTIME 11/23/21 02/08/[address],ext.release quetiapine 50 mg tablet 300 mg PO BEDTIME 12/03/21 02/08/22 clonazepam 1 mg tablet 1 tab PO DAILY PRN anxiety 02/08/22 02/08/22 clonidine HCl 0.1 mg tablet 1 tab PO BID PRN anxiety 02/08/22 02/08/22 cyclobenzaprine 5 mg tablet 1 tab PO QD-BID PRN pain 02/08/22 02/08/22 hydroxyzine HCl 25 mg tablet 1 tab PO BEDTIME PRN anxiety 02/08/22 02/08/22 hydroxyzine HCl 25 mg tablet 1 tab PO BEDTIME PRN anxiety 02/08/22 02/08/22 tiotropium 2.5 mcg-olodaterol 2.5 2 puff PO DAILY 02/08/22 02/08/22 mcg/actuation mist for inhalation (Stiolto Respimat) Previous Rx's Medication Instructions Recorded albuterol sulfate 90 mcg/actuation 2 puff inhalation Q4-6H PRN 07/07/21 aerosol inhaler shortness of breath or wheezing #8.5 grams nicotine 21 mg/24 hr daily 21 mg transdermal DAILY 28 days 11/29/21 transdermal patch #28 ea Allergies Allergy/AdvReac Type Severity Reaction Status Date / Time ibuprofen Allergy Intermediate Stomach Verified 10/10/21 08:16 Upset penicillin V Allergy Intermediate rash Verified 09/08/21 13:49 Review of Systems Review of Systems: Yes all other systems are reviewed and are negative PMFSH Past Medical History Medical History Anxiety Asthma Cannabis use disorder, moderate, dependence Cocaine use disorder Depression Emphysema of lung Nicotine dependence Opioid use disorder Pulmonary nodules Surgical History Hx of cholecystectomy Social History Social History Household Members: None Housing: Apartment Do you presently have visiting nurse or other home services: No Unable to assess alcohol history related to: Unknown Alcohol intake: never Patient Tobacco Use Status: Former Tobacco user e-Cigarette/Vaping Use: Never Used Second Hand Smoke Exposure: No Substance Use Type: Crack/Cocaine and Opiates Advance Directives: No Advance Directives Information Provided: No service: No Sexual orientation: Straight/Heterosexual Physical Exam Vital Signs: Vital Signs: Last Vital Signs Temp 97.8 F 02/08/22 16:35 Pulse 72 02/08/22 16:35 Resp 18 02/08/22 16:35 BP 123/84 02/08/22 16:35 Pulse Ox 97 02/08/22 16:35 O2 Del Method 02/08/22 16:35 BMI result Body Mass Index 27.4 Appearance: Alert. Oriented X3. No acute distress. Eyes: PERRLA, No Nystagmus ENT: Pharynx normal. Oral Mucosa moist Neck: Normal inspection. Neck supple. CVS: Normal heart rate and rhythm. Pulses normal. Respiratory: No respiratory distress. Equal air entry bilateral, no wheezing/rales/rhonchi Abdomen: Soft and nontender. Bowel sounds are present, no mass palpable, no CVA tenderness Skin: Skin warm and dry. Normal skin color. Normal skin turgor. Extremities: No lower extremity edema. No calf tenderness psych: Feel depressed no suicidal ideation at this time no hallucination or delusions Neuro: Oriented X 3. No motor deficit. No sensory deficit.No cerebellar signs , cranial nerves II-XII intact MDM - Psych Lab Data Result diagrams: 02/08/22 18:24 02/08/22 18:24 Labs: Lab Results 02/08/22 02/08/22 02/08/22 Range/Units 17:10 17:10 17:10 WBC (4.8-10.8) X10*3/uL RBC (4.60-5.80) X10*6/uL Hgb (14.0-18.0) g/dl Hct (42.0-52.0) % MCV (80.0-98.0) fL MCH (27.0-33.0) pg MCHC (31.0-36.0) g/dl RDW (11.0-16.0) % Plt Count (160-400) X10*3/uL MPV (9.4-12.4) fL Immature Gran % (Auto) (0.0-0.4) % Neut % (Auto) (45-73) % Lymph % (Auto) (20-40) % [place] % (Auto) (2-11) % Eos % (Auto) (0-4) % Baso % (Auto) (0-2) % Lymph # (Auto) (1.2-4.9) X10*3/uL [place] # (Auto) (0.1-1.2) X10*3/uL Eos # (Auto) (0.0-0.4) X10*3/uL Baso # (Auto) (0.0-0.2) X10*3/uL Abs Immat Gran (auto) (0.00-0.03) X10*3/uL Absolute Neuts (auto) (2.0-8.3) x10*3/uL Absolute Nucleated RBC (0.0-0.012) X10*3/uL Nucleated RBC % (auto) (0.0-0.2) /100WBC Sodium (135-145) mmol/L Potassium (3.3-5.1) mmol/L Chloride (96-108) mmol/L Carbon Dioxide (22-29) mmol/L Anion Gap (12-20) BUN (9-16) mg/dL Creatinine (0.5-1.4) mg/dL Estim Creat Clear Calc Estimated GFR Random Glucose (60-115) mg/dL Calcium (8.4-10.2) mg/dL Total Bilirubin (0.0-1.0) mg/dL AST (5-37) U/L ALT (0-40) U/L Alkaline Phosphatase (39-117) U/L Total Protein (6.5-8.0) g/dL Albumin (3.5-5.0) g/dL Urine Color YELLOW Urine Appearance CLEAR Urine pH 6.0 (5.0-8.0) Ur Specific [place] 1.025 (1.005-1.025) Urine Protein NEG (NEG-TRACE) MG/DL Urine Glucose (UA) NEG (NEG) MG/DL Urine Ketones 5 (NEG) MG/DL Urine Blood NEG (NEG) Urine Nitrite NEG (NEG) Ur Leukocyte Esterase NEG (NEG) Urine Opiates Screen Not Detected (Not Detect) Urine Fentanyl Screen Not Detected (Not Detect) Ur Barbiturates Screen Not Detected (Not Detect) Ur Phencyclidine Scrn Not Detected (Not Detect) Ur Amphetamines Screen Not Detected (Not Detect) U Benzodiazepines Scrn Not Detected (Not Detect) Urine Cocaine Screen POSITIVE H (Not Detect) U Marijuana (THC) Screen POSITIVE H (Not Detect) Ethyl Alcohol mg/dL COVID-19 (ALENA) Negative (Negative) COVID-19 Clin Com See Note 02/08/22 02/08/22 Range/Units 18:24 18:24 WBC 6.3 (4.8-10.8) X10*3/uL RBC 4.51 L (4.60-5.80) X10*6/uL Hgb 12.9 L (14.0-18.0) g/dl Hct 38.6 L (42.0-52.0) % MCV 85.6 (80.0-98.0) fL MCH 28.6 (27.0-33.0) pg MCHC 33.4 (31.0-36.0) g/dl RDW 15.6 (11.0-16.0) % Plt Count 375 (160-400) X10*3/uL MPV 9.4 (9.4-12.4) fL Immature Gran % (Auto) 0.3 (0.0-0.4) % Neut % (Auto) 54.3 (45-73) % Lymph % (Auto) 31.7 (20-40) % [place] % (Auto) 8.1 (2-11) % Eos % (Auto) 4.8 H (0-4) % Baso % (Auto) 0.8 (0-2) % Lymph # (Auto) 2.0 (1.2-4.9) X10*3/uL [place] # (Auto) 0.5 (0.1-1.2) X10*3/uL Eos # (Auto) 0.3 (0.0-0.4) X10*3/uL Baso # (Auto) 0.1 (0.0-0.2) X10*3/uL Abs Immat Gran (auto) 0.02 (0.00-0.03) X10*3/uL Absolute Neuts (auto) 3.4 (2.0-8.3) x10*3/uL Absolute Nucleated RBC 0.000 (0.0-0.012) X10*3/uL Nucleated RBC % (auto) 0.0 (0.0-0.2) /100WBC Sodium 139 (135-145) mmol/L Potassium 3.7 (3.3-5.1) mmol/L Chloride 107 (96-108) mmol/L Carbon Dioxide 25 (22-29) mmol/L Anion Gap 11 L (12-20) BUN 8 L (9-16) mg/dL Creatinine 0.75 (0.5-1.4) mg/dL Estim Creat Clear Calc 98.0 Estimated GFR > 60 Random Glucose 88 (60-115) mg/dL Calcium 8.9 (8.4-10.2) mg/dL Total Bilirubin 0.3 (0.0-1.0) mg/dL AST 17 (5-37) U/L ALT 14 (0-40) U/L Alkaline Phosphatase 93 (39-117) U/L Total Protein 6.8 (6.5-8.0) g/dL Albumin 4.0 (3.5-5.0) g/dL Urine Color Urine Appearance Urine pH (5.0-8.0) Ur Specific [place] (1.005-1.025) Urine Protein (NEG-TRACE) MG/DL Urine Glucose (UA) (NEG) MG/DL Urine Ketones (NEG) MG/DL Urine Blood (NEG) Urine Nitrite (NEG) Ur Leukocyte Esterase (NEG) Urine Opiates Screen (Not Detect) Urine Fentanyl Screen (Not Detect) Ur Barbiturates Screen (Not Detect) Ur Phencyclidine Scrn (Not Detect) Ur Amphetamines Screen (Not Detect) U Benzodiazepines Scrn (Not Detect) Urine Cocaine Screen (Not Detect) U Marijuana (THC) Screen (Not Detect) Ethyl Alcohol < 10 mg/dL COVID-19 (ALENA) (Negative) COVID-19 Clin Com Discharge Plan Discharge Clinical Impression: MDD (major depressive disorder), recurrent episode Patient Disposition: Admitted As Inpatient Interventions: Admission Worksheet (ED) Last Done: 02/08/22 23:22 Discharge Date/Time: 02/08/22 23:23
[2022-02-08 16:35] VITALS: BP 123/84; BP 142/68; PULSE 72; PULSE 75; RESP 18; TEMP 36.6; O2SAT 96; O2SAT 97; BMI 27.4
--- NOTE | 2022-02-08 16:46 | ECG_ITS ---
Test Reason : MED CLEARANCE Blood Pressure : / mmHG Vent. Rate : 072 BPM Atrial Rate : 072 BPM P-R Int : 160 ms QRS Dur : 100 ms QT Int : 394 ms P-R-T Axes : 084 023 077 degrees QTc Int : 431 ms Normal sinus rhythm Normal ECG When compared with ECG of 26-JAN-2022 03:40, No significant change was found Referred By: Emile Mckeon Electronically Signed By:FREDI LACKEY
[2022-02-08] MEDS: QUEtiapine Fumarate 100 MG TABLET PO (17:07)
[2022-02-08 17:25] LABS: Appearance Urine CLEAR; Color Urine YELLOW; Glucose Urine UA NEG (NEG); Leukocyte Esterase Urine NEG (NEG); Nitrite Urine NEG (NEG); Specific Gravity - Urine 1.025 (1.005-1.025); Urine Blood NEG (NEG); Urine Ketones 5 MG/DL (NEG); Urine Protein NEG (NEG-TRACE)
[2022-02-08 17:42] LABS: COVID-19 Test Negative (Negative); IDNOW Serial# 16C4AD1C
[2022-02-08 17:45] LABS: Amphetamine Screen Urine Not Detected (Not Detect); Barbiturates, Urine Not Detected (Not Detect); Benzodiazepines Screen Urine Not Detected (Not Detect); Cannabinoid Screen Urine POSITIVE (Not Detect); Cocaine Screen Urine POSITIVE (Not Detect); Fentanyl, urine Not Detected (Not Detect); Opiate Screen Urine Not Detected (Not Detect); Phencyclidine Screen Urine Not Detected (Not Detect)
[2022-02-08] MEDS: LORazepam 1 MG TABLET 2 MG PO (18:18)
[2022-02-08 18:30] LABS: MANUAL DIFF FLAG NO
[2022-02-08 18:41] LABS: Basophils Absolute Auto 0.1 X10*3/uL (0.0-0.2); Basophils Percent Auto 0.8 % (0-2); Eosinophils Absolute Auto 0.3 X10*3/uL (0.0-0.4); Eosinophils Percent Auto 4.8 % (0-4); Hematocrit 38.6 % (42.0-52.0); Hemoglobin 12.9 g/dl (14.0-18.0); Imm Gran Abs Auto 0.02 X10*3/uL (0.00-0.03); Imm Gran Pct Auto 0.3 % (0.0-0.4); Lymphocytes Percent Auto 31.7 % (20-40); Mean Corpuscular HGB Conc 33.4 g/dl (31.0-36.0); Mean Corpuscular Hemoglobin 28.6 pg (27.0-33.0); Mean Corpuscular Volume 85.6 fL (80.0-98.0); Mean Platelet Volume 9.4 fL (9.4-12.4); Monocytes Absolute Auto 0.5 X10*3/uL (0.1-1.2); Monocytes Percent Auto 8.1 % (2-11); Neutrophils Absolute Auto 3.4 x10*3/uL (2.0-8.3); Neutrophils Percent Auto 54.3 % (45-73); Platelet Count 375 X10*3/uL (160-400); Red Blood Count 4.51 X10*6/uL (4.60-5.80); Red Cell Distribution Width 15.6 % (11.0-16.0); White Blood Count 6.3 X10*3/uL (4.8-10.8)
[2022-02-08 18:52] LABS: Alanine Aminotransferase 14 U/L (0-40); Alkaline Phosphatase 93 U/L (39-117); Anion Gap 11 (12-20); Aspartate Amino Transferase 17 U/L (5-37); Bilirubin Total 0.3 mg/dL (0.0-1.0); Blood Urea Nitrogen 8 mg/dL (9-16); Calcium 8.9 mg/dL (8.4-10.2); Carbon Dioxide 25 mmol/L (22-29); Chloride 107 mmol/L (96-108); Estimated Glomerular Filt Rate > 60; Ethanol < 10 mg/dL; Glucose Random 88 mg/dL (60-115); Potassium 3.7 mmol/L (3.3-5.1); Sodium 139 mmol/L (135-145); Total Protein 6.8 g/dL (6.5-8.0)
[2022-02-09 00:37] VITALS: BMI 23.9
[2022-02-09] MEDS: QUEtiapine Fumarate 300 MG TABLET PO ×2 (00:37→20:14)
[2022-02-09] MEDS: traZODone HCL 50 MG TABLET PO ×2 (00:37→02:05)
[2022-02-09] MEDS: PARoxetine HCL 20 MG TABLET PO ×2 (00:37→20:14)
[2022-02-09] MEDS: hydrOXYzine HCL 25 MG TABLET PO (00:37)
[2022-02-09] MEDS: Mirtazapine 30 MG TABLET PO ×2 (00:37→20:14)
[2022-02-09] MEDS: QUEtiapine Fumarate 50 MG TABLET PO (00:37)
[2022-02-09] MEDS: Atorvastatin Calcium 40 MG TABLET PO ×2 (00:37→20:14)
[2022-02-09 02:10] VITALS: BP 112/71; PULSE 88; RESP 18; TEMP 36.8; O2SAT 98
[2022-02-09] MEDS: cloNIDine HCL 0.1 MG TABLET PO ×2 (02:14→15:55)
--- NOTE | 2022-02-09 08:03 | PC.ADMIT ---
Patient is 56 year old indonesian speaking male known to this unit who [place] [facility] secondary to SI d/t ongoing interpersonal stressors and cocaine dependence. Patient arrived on unit via WC from [facility]. Pt has Hx of HTN, COPD, Asthma, Hyperlipidemia and chronic back pain. Pt's Utox + Cocaine and THC. Pt endorses daily cocaine use as well as daily THC use. TAYLOR's were signed with a Yoruba speaking staff member. Appears stated age. Patient endorses increasing depression and is experiencing increased persistent SI. Patient stated, I can't keep living like this...I want to end my life in the quickest and most painless way possible . Pt also states that he is living in a place where drug use is rampant and feels he cannot recover if he is surrounded by this constantly. Pt verbalizes the need for assistance to find a place to live that is conducive to recovery. Patient has stable housing and is able to return, but emphasizes fear he will re-use unless he can get out of his current living situation. Upon admission patient was alert and oriented in all spheres. Memory appears intact. Provider hotel supplies salesperson Sweetie notified of admission and orders obtained. Pt placed on 15 minute safety checks. Pt reports feeling safe in hospital.
[2022-02-09] MEDS: Omeprazole 20 MG CAPSULE.DR PO (09:11)
[2022-02-09] MEDS: Nicotine 21 MG PATCH.TD24 TRANSDERMA (09:11)
[2022-02-09] MEDS: QUEtiapine Fumarate 100 MG TABLET PO (09:11)
[2022-02-09 09:12] VITALS: BMI 23.9
[2022-02-09 09:26] VITALS: BP 102/69; PULSE 84; RESP 16; TEMP 36.6; O2SAT 95
[2022-02-09 09:26] LABS: Folate 6.7 ng/mL (> or = 4.0); Vitamin B12 869 pg/mL (200-900)
--- NOTE | 2022-02-09 09:49 | MHC.CLN ---
NUTRITION CONSULT FOR WEIGHT LOSS. PATIENT WITH SIGNIFICANT WEIGHT LOSS X 6 MONTHS, -19%. ATE APPROXIMATELY 50% THIS BREAKFAST. OFFERED AND AGREED TO ENSUR TID. SUPPLEMENT PROVIDES 1050 KCALS, 60 G PROTEIN. ANTICIPATE IMPROVED INTAKE IN HOSPITAL SETTING.
[2022-02-09 10:21] LABS: Cholesterol 134 mg/dL; HDL Cholesterol 35 mg/dL; LDL Cholesterol Calculated 83 mg/dl; Magnesium 2.1 mg/dL (1.6-2.6); Triglycerides 83 mg/dL
[2022-02-09 10:41] LABS: Thyroid Stimulating Hormone 1.42 uIU/mL (0.32-4.0)
[2022-02-09] MEDS: Milk of Magnesia 30 ML ORAL.SUSP PO (13:15)
[2022-02-09] MEDS: Acetaminophen 325 MG TABLET 650 MG PO (13:15)
[2022-02-09] MEDS: clonazePAM 1 MG TABLET PO ×2 (13:15→22:09)
[2022-02-09 15:55] VITALS: BP 100/62; PULSE 94; RESP 16; TEMP 36.6; O2SAT 96
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
[2022-02-09 20:11] VITALS: BP 121/74; PULSE 102; RESP 18; TEMP 36.3; O2SAT 96
[2022-02-09] MEDS: Ferrous Sulfate 324 MG TABLET.DR PO (20:14)
[2022-02-09 20:18] VITALS: BMI 24.2
[2022-02-10] MEDS: QUEtiapine Fumarate 50 MG TABLET PO ×2 (01:28→15:51)
[2022-02-10] MEDS: traZODone HCL 50 MG TABLET PO ×2 (01:28→23:34)
[2022-02-10] MEDS: Nicotine 21 MG PATCH.TD24 TRANSDERMA (09:05)
[2022-02-10] MEDS: Omeprazole 20 MG CAPSULE.DR PO (09:05)
[2022-02-10] MEDS: QUEtiapine Fumarate 100 MG TABLET PO (09:05)
[2022-02-10 09:29] VITALS: BP 113/73; PULSE 92; RESP 16; TEMP 36.6; O2SAT 95
[2022-02-10] MEDS: clonazePAM 1 MG TABLET PO (09:38)
[2022-02-10] MEDS: Acetaminophen 325 MG TABLET 650 MG PO (09:38)
[2022-02-10] MEDS: Cyclobenzaprine HCl 5 MG TABLET PO ×2 (11:05→20:39)
[2022-02-10] MEDS: Albuterol Sulfate 90 MCG 8 GM INHALER 2 PUFF INHALE ×2 (11:12→23:39)
[2022-02-10] MEDS: cloNIDine HCL 0.1 MG TABLET PO (15:51)
[2022-02-10] MEDS: hydrOXYzine HCL 25 MG TABLET PO (16:35)
--- NOTE | 2022-02-10 18:33 | P.PNPSI_ITS ---
Subjective Subjective Date of Service: 02/10/22 Reason For Visit: depression, cocaine use d/o Subjective Notes: Small Warning Interim History: Pt discussed with team, pt was dismissive and unengaged with SW today, did not give impression that he is motivated for treatment. I evaluated the pt this evening with marine radio installer and servicer, upon interview he reports he is ?not feeling good.?? States ?I got a lot of depression, a lot of anxiety. I woke up with a lot of anxiety,? crying. Sleep is improved on medication, likes his nighttime med regimen. However, says his meds during the day are ?not really helping.? Hx of trialing Buspar for anxiety, says it doesnt help and ?I need something in the day to make me calm.? Says seroquel is too sedating in the day. He still wants to talk to the employment coach, interested in NA meetings. He talked to the electric deicer assembler yesterday. Endorses passive SI, has thoughts of hanging himself but denies plan or intent. Says if he leave the hospital he will relapse and ?crash down again.? Says he wants to get clean. Interested in [facility], will discuss options with social and human services assistant, appears more open to treatment options after talking with T/W, says he prefers Nepali speaking programs. Medication Compliance: Yes Side effects from medications: No Attending Groups: No Review of Systems Acute medical concerns: No Medical Review of Systems: unchanged Mental Status Exam Mental Status Exam Narrative: A&O. In hospital attire, okay hygiene/ grooming. Poor eye contact, inattentive. No Tics or Tremors. No abnormal involuntary movements. Calm, guarded, difficult to engage. Non-pressured speech, spontaneous with regular rate and rhythm, normal volume and prosody. No prolonged speech latency or dysarthria. Mood is ?depressed,? affect is blunted. Endorses passive SI but denies plan or intent/ denies SIB/HI upon inquiry. Denies A/VH or delusional thought content. Thoughts are evasive. No known cognitive or memory impairment. Insight/ Judgment limited but adequate. Diagnostics Vital Signs (24Hr): Vital Signs - 24 hr 02/09/22 20:11 02/10/22 09:29 Temperature 97.4 F 97.9 F Pulse Rate 102 H 92 Respiratory Rate 18 16 Blood Pressure 121/74 113/73 Pulse Oximetry 96 95 Oxygen Delivery Method Room Air Room Air BMI result Body Mass Index 24.2 Labs Results: 02/08/22 18:24 02/08/22 18:24 Labs: Laboratory Results - last 48 hr 02/08/22 02/08/22 02/09/22 18:24 18:24 08:01 WBC 6.3 RBC 4.51 L Hgb 12.9 L Hct 38.6 L MCV 85.6 MCH 28.6 MCHC 33.4 RDW 15.6 Plt Count 375 MPV 9.4 Immature Gran % (Auto) 0.3 Neut % (Auto) 54.3 Lymph % (Auto) 31.7 [place] % (Auto) 8.1 Eos % (Auto) 4.8 H Baso % (Auto) 0.8 Lymph # (Auto) 2.0 [place] # (Auto) 0.5 Eos # (Auto) 0.3 Baso # (Auto) 0.1 Abs Immat Gran (auto) 0.02 Absolute Neuts (auto) 3.4 Absolute Nucleated RBC 0.000 Nucleated RBC % (auto) 0.0 Sodium 139 Potassium 3.7 Chloride 107 Carbon Dioxide 25 Anion Gap 11 L BUN 8 L Creatinine 0.75 Estim Creat Clear Calc 98.0 Estimated GFR > 60 Random Glucose 88 Calcium 8.9 Magnesium 2.1 Total Bilirubin 0.3 AST 17 ALT 14 Alkaline Phosphatase 93 Total Protein 6.8 Albumin 4.0 Triglycerides 83 Cholesterol 134 LDL Cholesterol, Calc 83 HDL Cholesterol 35 Vitamin B12 Folate TSH 1.42 Free T4 0.90 Ethyl Alcohol < 10 02/09/22 02/09/22 08:01 08:01 WBC RBC Hgb Hct MCV MCH MCHC RDW Plt Count MPV Immature Gran % (Auto) Neut % (Auto) Lymph % (Auto) [place] % (Auto) Eos % (Auto) Baso % (Auto) Lymph # (Auto) [place] # (Auto) Eos # (Auto) Baso # (Auto) Abs Immat Gran (auto) Absolute Neuts (auto) Absolute Nucleated RBC Nucleated RBC % (auto) Sodium Potassium Chloride Carbon Dioxide Anion Gap BUN Creatinine Estim Creat Clear Calc Estimated GFR Random Glucose Calcium Magnesium Total Bilirubin AST ALT Alkaline Phosphatase Total Protein Albumin Triglycerides Cholesterol LDL Cholesterol, Calc HDL Cholesterol Vitamin B12 869 Folate 6.7 TSH Free T4 Cancelled Ethyl Alcohol Medications Medications Current Medications Acetaminophen (Acetaminophen 325 Mg Tablet) 650 mg PO Q6H PRN PRN Reason: Headache/Pain Mild Scale (1-3) Last Admin: 02/10/22 09:38 Dose: 650 mg Al Hydroxide/Mg Hydroxide (Magnesium Hydrox/Alum Hydrox 30 Ml Oral.Susp) 30 ml PO Q6H PRN PRN Reason: Heartburn/Nausea Al Hydroxide/Mg Hydroxide (Magnesium Hydrox/Alum Hydrox 30 Ml Oral.Susp) 30 ml PO Q6H PRN PRN Reason: Heartburn/Nausea Albuterol Sulfate (Albuterol Sulfate 90 Mcg 8 Gm Inhaler) 2 puff INHALE Q4H PRN PRN Reason: shortness of breath or wheezing Last Admin: 02/10/22 11:12 Dose: 2 puff Atorvastatin Calcium (Atorvastatin Calcium 40 Mg Tablet) 40 mg PO BEDTIME ADRIEN Last Admin: 02/09/22 20:14 Dose: 40 mg Clonazepam (Clonazepam 1 Mg Tablet) 1 mg PO DAILY PRN PRN Reason: anxiety Last Admin: 02/10/22 09:38 Dose: 1 mg Clonidine HCl (Clonidine Hcl 0.1 Mg Tablet) 0.1 mg PO BID PRN; Protocol PRN Reason: anxiety Last Admin: 02/10/22 15:51 Dose: 0.1 mg Cyclobenzaprine HCl (Cyclobenzaprine Hcl 5 Mg Tablet) 5 mg PO BID PRN PRN Reason: muscle relaxant Last Admin: 02/10/22 11:05 Dose: 5 mg Ferrous Sulfate (Ferrous Sulfate 324 Mg Tablet.Dr) 324 mg PO BEDTIME ADRIEN Last Admin: 02/09/22 20:14 Dose: 324 mg Hydroxyzine HCl (Hydroxyzine Hcl 25 Mg Tablet) 25 mg PO Q6H PRN PRN Reason: Anxiety Last Admin: 02/10/22 16:35 Dose: 25 mg Magnesium Hydroxide (Milk Of Magnesia 30 Ml Oral.Susp) 30 ml PO DAILY PRN PRN Reason: Constipation Last Admin: 02/09/22 13:15 Dose: 30 ml Magnesium Hydroxide (Milk Of Magnesia 30 Ml Oral.Susp) 30 ml PO DAILY PRN PRN Reason: Constipation Mirtazapine (Mirtazapine 30 Mg Tablet) 30 mg PO BEDTIME ADRIEN Last Admin: 02/09/22 20:14 Dose: 30 mg Nicotine (Nicotine 21 Mg Patch.Td24) 21 mg TRANSDERMA DAILY [facility] Last Admin: 02/10/22 09:05 Dose: 21 mg Non-Formulary Medication (Tiotropium-Olodaterol [Stiolto Respimat]) 2 puff PO DAILY [facility] Omeprazole (Omeprazole 20 Mg Capsule.Dr) 20 mg PO DAILY@0630 [facility] Last Admin: 02/10/22 09:05 Dose: 20 mg Paroxetine HCl (Paroxetine Hcl 20 Mg Tablet) 20 mg PO BEDTIME [facility] Last Admin: 02/09/22 20:14 Dose: 20 mg Quetiapine Fumarate (Quetiapine Fumarate 300 Mg Tablet) 300 mg PO BEDTIME ADRIEN Last Admin: 02/09/22 20:14 Dose: 300 mg Quetiapine Fumarate (Quetiapine Fumarate 100 Mg Tablet) 100 mg PO DAILY [facility] Last Admin: 02/10/22 09:05 Dose: 100 mg Quetiapine Fumarate (Quetiapine Fumarate 50 Mg Tablet) 50 mg PO BID PRN PRN Reason: anxiety, agitation Last Admin: 02/10/22 15:51 Dose: 50 mg Tiotropium [place] (Tiotropium [place] 18 Mcg Cap.W.Dev) 1 puff INHALE DAILY [facility] Last Admin: 02/10/22 09:05 Dose: 1 puff Trazodone HCl (Trazodone Hcl 50 Mg Tablet) 50 mg PO BEDTIME PRN PRN Reason: Insomnia Last Admin: 02/10/22 01:28 Dose: 50 mg Verapamil HCl (Verapamil Hcl Sr 100 Mg Cap24h.Pct) 100 mg PO BEDTIME ADRIEN; Protocol Last Admin: 02/09/22 20:14 Dose: 100 mg Allergies Allergies Allergy/AdvReac Type Severity Reaction Status Date / Time ibuprofen Allergy Intermediate Stomach Verified 10/10/21 08:16 Upset penicillin V Allergy Intermediate rash Verified 09/08/21 13:49 Assessment & Plan Assessment & Plan (1) MDD (major depressive disorder), recurrent episode, moderate: Status: Acute Code(s): F33.1 - Major depressive disorder, recurrent, moderate (2) Cocaine use disorder: Status: Acute Code(s): F14.10 - Cocaine abuse, uncomplicated Plan Augustin is a 56 y.o. Male who carries a dx of MDD recurrent and cocaine use disorder. Pt presented to [facility] ED on 02/08/2022 due to depression x one month, SI with plan to OD on cocaine, tearful, stated he feels like hurting himself. Precipitating factors include that he recently from his and he has financial stress, unstable housing. Pt was abstinent from cocaine x 10 years, relapsed 11/2021 and has had difficulty maintaining sobriety. Pt has history of suicide attempts.? Plan: Pt has been med non-adherent, interested in re-starting his home med regimen. Will place referral for employment coach to speak with him. Pt asked for an increase in clonazepam, will oder one time dose for tonight but pt understands that klonopin will not be increased from 1 mg daily during this admission. 02/09: Will discontinue seroquel in the daytime and PRN clonidine as pt denies benefit. Will start trileptal 300 mg BID for racing thoughts, impulsivity, agitation, and anxiety. Q15 min safety checks, CV Monitor response to medications. Monitor for safety in the milieu. Discharge on stabilization. Patient seen. Chart reviewed. Discussed with team. Obtain collateral contact info as needed I spent minutes with the patient and/or on the patient floor today, greater than?50% of which was spent counseling/coordinating care. Patient educated on: medication risk/benefits and substance abuse Reason for contiued inpatient stay Substantial Risk for: harm to self and med/psych decompensation
[2022-02-10 20:08] VITALS: BP 101/64; PULSE 98; RESP 18; TEMP 36.2; O2SAT 95
[2022-02-10] MEDS: QUEtiapine Fumarate 300 MG TABLET PO (20:17)
[2022-02-10] MEDS: Atorvastatin Calcium 40 MG TABLET PO (20:17)
[2022-02-10] MEDS: Ferrous Sulfate 324 MG TABLET.DR PO (20:17)
[2022-02-10] MEDS: OXcarbazepine 300 MG TABLET PO (20:18)
[2022-02-10] MEDS: PARoxetine HCL 20 MG TABLET PO (20:18)
[2022-02-10] MEDS: Mirtazapine 30 MG TABLET PO (20:18)
[2022-02-10] MEDS: hydrOXYzine HCL 50 MG TABLET PO (20:39)
[2022-02-11] MEDS: traZODone HCL 50 MG TABLET PO (02:26)
[2022-02-11] MEDS: hydrOXYzine HCL 50 MG TABLET PO ×2 (02:26→08:56)
[2022-02-11] MEDS: Omeprazole 20 MG CAPSULE.DR PO (07:08)
[2022-02-11] MEDS: QUEtiapine Fumarate 25 MG TABLET PO (07:08)
[2022-02-11] MEDS: Albuterol Sulfate 90 MCG 8 GM INHALER 2 PUFF INHALE (07:10)
[2022-02-11 08:50] VITALS: BP 129/76; PULSE 83; RESP 16; TEMP 36.6; O2SAT 95
[2022-02-11] MEDS: Nicotine 21 MG PATCH.TD24 TRANSDERMA (08:53)
[2022-02-11] MEDS: OXcarbazepine 300 MG TABLET PO (08:53)
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
[2022-02-11] MEDS: clonazePAM 1 MG TABLET PO (11:27)
--- NOTE | 2022-02-11 12:22 | PC.NURSE ---
Discharge Note : [facility] called to go over discharge. Patient declined to review discharge paperwork and instructions due to being told that there was no script for klonopin. Patient then demanded to be discharged immediately. No acute distress noted. Patient declined to engage for full assessment.
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
== END 2022-02-11 12:20 | disposition home or self-care (01) | DRG 751 ==
LOC: HO.ED 19:06 → HO.PADLT16 22:40
PROVIDERS: Admitting Provider Psychiatry & Neurology Psychiatry; Emergency Provider Internal Medicine; PCP Internal Medicine; Visit Provider Registered Nurse
DX: F33.1 Major depressive disorder, recurrent, moderate (principal); R45.851 Suicidal ideations; F12.20 Cannabis dependence, uncomplicated; F17.210 Nicotine dependence, cigarettes, uncomplicated; F14.10 Cocaine abuse, uncomplicated; J43.9 Emphysema, unspecified; Z20.822 Contact with and (suspected) exposure to COVID-19; Z71.6 Tobacco abuse counseling; Z88.0 Allergy status to penicillin; Z88.6 Allergy status to analgesic agent; Z79.51 Long term (current) use of inhaled steroids; Z79.899 Other long term (current) drug therapy
CPT/HCPCS: 36415; 80053; 80061; 80307; 81003; 82077; 82607; 82746; 83735; 84439; 84443; 85025; 87635; 93005; 99285

== ENCOUNTER 2022-04-04 13:37 | Inpatient (IN) | payer MEDICAID, OTHER, SELFPAY ==
--- NOTE | ~2022-04-04 | XR_ITS ---
EXAMINATION: XR CHEST CLINICAL INFORMATION: Chest pain. COMPARISON: 01/26/2022 chest radiograph. TECHNIQUE: Frontal view of the chest was obtained. FINDINGS: No significant abnormality is noted involving the heart, lungs, mediastinum, bony thorax or soft tissues. XR/XR chest 1V IMPRESSION: No acute cardiopulmonary process.
--- NOTE | ~2022-04-04 | CT_ITS ---
EXAMINATION: CT ABDOMEN AND PELVIS WITHOUT CONTRAST CLINICAL INFORMATION: Complaining of s/s kidney stones COMPARISON: CTA abdomen pelvis 06/17/2021 TECHNIQUE: Multidetector volumetric imaging was performed from the superior aspect of the liver through the pubic symphysis. Sagittal and coronal reformatted images were obtained on the technologist's workstation. This CT examination was performed using dose optimization techniques as appropriate, variously including the following: *Automated exposure control *Adjustment of mA and/or kV according to patient size (this includes techniques or standardized protocols for targeted exams where dose is matched to indication/reason for exam; i.e. extremities or head) *Use of iterative reconstruction technique DLP: 388 mGy-cm FINDINGS: LUNG BASES: Emphysematous changes are present at the lung bases with bullous formation. No suspicious lung masses, pleural effusions or infiltrates are seen. LIVER, GALLBLADDER, AND BILIARY TREE: The liver is normal in size, shape, and attenuation. No focal hepatic lesion or biliary ductal dilatation is present. Status post cholecystectomy PANCREAS: Unremarkable. SPLEEN: Unremarkable. ADRENAL GLANDS: Unremarkable. KIDNEYS AND URETERS: The kidneys are normal in size, shape, and attenuation. Bilateral nephrolithiasis is present. At least 7 stones are present in the right kidney with a large cluster in the upper pole measuring about 5 mm in size. The largest single stone is 2 mm. At least 5 stones are present in the left kidney, all punctate. Hounsfield unit attenuation approaches 500 but this is not accurate because of partial volume effects. The largest stone is about 5.6 cm from the posterior axillary line. No hydronephrosis. Benign Bosniak class I right mid kidney cyst is seen measuring 2.4 cm in size. No further imaging or is recommended. No solid renal masses. No hydroureter or ureteral calculi seen. No perinephric stranding. BLADDER: Unremarkable. GASTROINTESTINAL TRACT: Large stool burden present in the rectosigmoid without obstruction The small and large bowel are unremarkable. The appendix is unremarkable. ABDOMINAL WALL: No significant hernia is appreciated. Tiny bilateral inguinal hernias are seen containing only fat. LYMPH NODES: No retroperitoneal lymphadenopathy. VASCULAR: Minimal aortic calcified plaque without aneurysm. PELVIC VISCERA: Moderate BPH. Seminal vesicles appear normal. OSSEOUS STRUCTURES: Unremarkable. CT/CT abdomen pelvis wo IV con IMPRESSION: Bilateral nonobstructing nephrolithiasis. Stone burden has increased since the 06/17/2021 study Fleischner guidelines were followed.
[2022-04-04 13:52] VITALS: BP 120/96; BP 127/81; PULSE 73; PULSE 91; RESP 18; TEMP 36.6; O2SAT 94; O2SAT 96; BMI 24.0
--- NOTE | 2022-04-04 13:55 | ECG_ITS ---
Test Reason : CHEST PAIN Blood Pressure : / mmHG Vent. Rate : 069 BPM Atrial Rate : 069 BPM P-R Int : 154 ms QRS Dur : 102 ms QT Int : 402 ms P-R-T Axes : 080 015 070 degrees QTc Int : 430 ms Normal sinus rhythm with sinus arrhythmia Incomplete right bundle branch block Borderline ECG When compared with ECG of 08-FEB-2022 19:13, Incomplete right bundle branch block is now Present Referred By: Scooby Brooks Electronically Signed By:HERSON GARZON
--- NOTE | 2022-04-04 14:09 | ED_ITS ---
HPI - Chest Pain General Chief Complaint: Chest Pain Stated Complaint: CP,NECK AND ARM PAIN,SI W/PLAN Time Seen by Provider: 04/04/22 13:55 Source: patient and per diem interpreter Mode of arrival: ambulatory Limitations: no limitations History of Present Illness HPI narrative: 56-year-old male Wolof-speaking only came in for evaluation of left-sided chest pain and feeling depressed with suicide. Left side body aches started since this morning at 05:00 patient was doing nothing, pain is localized to the left side of the chest going to the left arm and left side of the neck and the left side of the head, pain has been constant since 05:00 o'clock in the morning, pain is worsening with movement, nothing relieves the pain, no SOB, patient admitted to use cocaine last night. Patient also feeling depressed with suicidal ideation, with plan either to overdose on pills or jump in front of a car patient is not talking about the reason of his depression. Related Data Home Medications Medication Instructions Recorded Confirmed atorvastatin 40 mg tablet (Lipitor) 1 tab PO BEDTIME 11/23/21 02/09/22 ferrous sulfate 325 mg (65 mg 1 tab PO BEDTIME 11/23/21 02/08/22 iron) tablet (FeroSul) fluticasone propionate 220 2 puff inhalation BID 11/23/21 02/09/22 mcg/actuation HFA aerosol inhaler (Flovent HFA) ipratropium 0.5 mg-albuterol 3 mg 1 amp inhalation TID 11/23/21 02/09/22 (2.5 mg base)/3 mL nebulization soln mirtazapine 30 mg tablet 1 tab PO BEDTIME PRN Insomnia 11/23/21 02/08/22 pantoprazole 40 mg tablet,delayed 1 tab PO QAM 11/23/21 02/08/22 release paroxetine HCl 20 mg tablet 1 tab PO QAM depressive disorder 11/23/21 02/09/22 quetiapine 100 mg tablet 1 tab PO QAM depressive disorder 11/23/21 02/08/22 tiotropium bromide 18 mcg capsule 1 cap inhalation DAILY 11/23/21 02/08/22 with inhalation device (Spiriva with HandiHaler) verapamil 100 mg capsule 24hr 1 cap PO BEDTIME 11/23/21 02/08/[address],ext.release quetiapine 50 mg tablet 300 mg PO BEDTIME 12/03/21 02/08/22 clonazepam 1 mg tablet 1 tab PO DAILY PRN anxiety 02/08/22 02/08/22 clonidine HCl 0.1 mg tablet 1 tab PO BID PRN anxiety 02/08/22 02/09/22 cyclobenzaprine 5 mg tablet 1 tab PO QD-BID PRN pain 02/08/22 02/08/22 hydroxyzine HCl 25 mg tablet 1 tab PO BEDTIME PRN anxiety 02/08/22 02/08/22 hydroxyzine HCl 25 mg tablet 1 tab PO BEDTIME PRN anxiety 02/08/22 02/08/22 tiotropium 2.5 mcg-olodaterol 2.5 2 puff PO DAILY 02/08/22 02/08/22 mcg/actuation mist for inhalation (Stiolto Respimat) Previous Rx's Medication Instructions Recorded albuterol sulfate 90 mcg/actuation 2 puff inhalation Q4-6H PRN 07/07/21 aerosol inhaler shortness of breath or wheezing #8.5 grams nicotine 21 mg/24 hr daily 21 mg transdermal DAILY 28 days 11/29/21 transdermal patch #28 ea Allergies Allergy/AdvReac Type Severity Reaction Status Date / Time ibuprofen Allergy Intermediate Stomach Verified 04/04/22 13:52 Upset penicillin V Allergy Intermediate rash Verified 04/04/22 13:52 Review of Systems Review of Systems: All other systems are reviewed and are negative Constitutional: Reports as per HPI and Reports no additional constitutional complaints Eyes: Reports as per HPI and Reports no additional eye complaints Reports system reviewed and no additional complaints, except as documented Cardiovascular: Reports as per HPI and Reports no additional cardiovascular complaints Respiratory: Reports as per HPI and Reports no additional respiratory complaints Gastrointestinal: Reports as per HPI and Reports no additional gastrointestinal complaints Genitourinary: Reports no additional female genitourinary complaints Musculoskeletal: Reports no additional musculoskeletal complaints Skin/Breast: Reports system reviewed and no additional complaints, except as docu Psychiatric: Reports no additional psychiatric complaints Endocrine: Reports no additional endocrine complaints Hematologic/Lymphatic: Reports no additional hematologic/lymphatic complaints Allergic/Immunologic: Reports no additional allergic/immunologic complaints Reports system reviewed and no additional complaints, except as documented and Reports Abnormal speech present PMFSH Past Medical History Medical History Anxiety Asthma Cannabis use disorder, moderate, dependence Cocaine use disorder Depression Emphysema of lung Nicotine dependence Opioid use disorder Pulmonary nodules Surgical History Hx of cholecystectomy Social History Social History Household Members: None Housing: Apartment Do you presently have visiting nurse or other home services: Yes (medications) Unable to assess alcohol history related to: Unknown Alcohol intake: never Patient Tobacco Use Status: Current everyday Tobacco user Tobacco use type: Cigarette Cigarettes Per Day: 4 Smoked in Last 30 Days: Yes e-Cigarette/Vaping Use: Never Used Second Hand Smoke Exposure: No Use of substances other than those prescribed or required for medical reasons: No Substance Use Type: Crack/Cocaine and Marijuana Advance Directives: No Advance Directives Information Provided: Yes service: No Sexual orientation: Straight/Heterosexual Physical Exam Vital Signs: Vital Signs: Last Vital Signs Temp 97.0 F 04/04/22 15:42 Pulse 71 04/04/22 15:42 Resp 16 04/04/22 15:42 BP 127/76 04/04/22 15:42 Pulse Ox 96 04/04/22 15:42 O2 Del Method 04/04/22 15:42 BMI result Body Mass Index 24.0 Vital signs have been reviewed as appeared to be correct. Blood pressure normal. Heart rate normal. Respiration rate normal. Temperature normal. Oxygen saturation normal. Appearance: Alert. Oriented X3. No acute distress. Head: Normal external exam. Normocephalic. Atraumatic. No Thrasher signs noted. No raccoon eyes noted Eyes: PERRLA. EOMI. Conjunctiva and sclera normal. Eyelids normal. ENT: TM's Normal. Pharynx normal. Uvula midline. Moist mucous membranes. No trismus noted. No drooling noted. No muffled voice noted. Neck: Normal inspection. Neck supple. FROM. No adenopathy. Thyroid Normal. No meningeal signs. No neck mass noted. CVS: Normal heart rate and rhythm. Heart sound normal. No murmurs noted. Pulses normal throughout. Respiratory: No respiratory distress. Painless inspiration. Breath sounds normal. No wheezes/rales/rhonchi noted. Chest nontender. No accessory muscle usage noted or decreased air movement noted. Abdomen: Soft and nontender. Bowel sounds normal in all 4 quadrants. No distention noted. No organomegaly noted. No visible injury noted. Back: No CVA tenderness. Full range of motion noted. Skin: Skin warm and dry. Normal skin color. Normal skin turgor. No rashes /lesions/lacerations noted. Extremities: No lower extremity edema. Extremities exhibit normal range of motion. Extremities nontender. Neuro: Oriented X 3. Cranial nerve exam: II-XII are grossly intact No motor deficit. No sensory deficit. Reflexes normal. Patient Orientation: Person, Place, Time and Situation, okay hygiene and grooming. Fair eye contact, attentive, no tics or tremors. Level of Consciousness: Awake, Appropriate and Alert Patient Behavior: Appropriate, Guarded, Cooperative and Anxious Mood Description: Constricted, Blunted and Apprehensive Affect Description: Constricted, Blunted and Apprehensive Patient Cognition Impaired: No Ability to Follow Directions: Excellent Speech Pattern: Clear, Appropriate and Spontaneous Speech, nonpressured, spontaneous with regular rate and rhythm, normal volume and prosody. No dysarthria. Memory Description: Intact, Immediate Intact and Short Term Intact Hallucinations: None Delusions: Not Present Thought Process: Intact Thought Content: positive for Intact, positive for Logical, endorses Suicidal Ideation and denies Homicidal Ideation. Depressive Symptoms: Not present. Judgement and Insight: Limited but adequate. Course Course Course Narrative: Left-sided chest pain not likely to be cardiac, awaiting for 2nd troponin signed out to Dr. Mckeon to check on cardiac enzymes. Depression with SI we will consider BHN in evaluation after medically cleared. MDM - Chest Pain Medical Records Data Attestation: I reviewed the patient's medical records. Lab Data Attestation: I reviewed the patient's lab results. Result diagrams: 04/04/22 14:38 04/04/22 15:04 Labs: Lab Results 04/04/22 04/04/22 04/04/22 Range/Units 14:38 14:38 14:38 WBC 5.2 (4.8-10.8) X10*3/uL RBC 4.24 L (4.60-5.80) X10*6/uL Hgb 12.6 L (14.0-18.0) g/dl Hct 37.8 L (42.0-52.0) % MCV 89.2 (80.0-98.0) fL MCH 29.7 (27.0-33.0) pg MCHC 33.3 (31.0-36.0) g/dl RDW 15.4 (11.0-16.0) % Plt Count 363 (160-400) X10*3/uL MPV 8.8 L (9.4-12.4) fL Immature Gran % (Auto) 0.4 (0.0-0.4) % Neut % (Auto) 51.1 (45-73) % Lymph % (Auto) 29.8 (20-40) % [place] % (Auto) 10.0 (2-11) % Eos % (Auto) 8.1 H (0-4) % Baso % (Auto) 0.6 (0-2) % Lymph # (Auto) 1.6 (1.2-4.9) X10*3/uL [place] # (Auto) 0.5 (0.1-1.2) X10*3/uL Eos # (Auto) 0.4 (0.0-0.4) X10*3/uL Baso # (Auto) 0.0 (0.0-0.2) X10*3/uL Abs Immat Gran (auto) 0.02 (0.00-0.03) X10*3/uL Absolute Neuts (auto) 2.7 (2.0-8.3) x10*3/uL Absolute Nucleated RBC 0.000 (0.0-0.012) X10*3/uL Nucleated RBC % (auto) 0.0 (0.0-0.2) /100WBC Sodium (135-145) mmol/L Potassium (3.3-5.1) mmol/L Chloride (96-108) mmol/L Carbon Dioxide (22-29) mmol/L Anion Gap (12-20) BUN (9-16) mg/dL Creatinine (0.5-1.4) mg/dL Estim Creat Clear Calc Estimated GFR Random Glucose (60-115) mg/dL Calcium (8.4-10.2) mg/dL Total Bilirubin (0.0-1.0) mg/dL Direct Bilirubin (0.0-0.5) mg/dL AST (5-37) U/L ALT (0-40) U/L Alkaline Phosphatase (39-117) U/L Troponin I High Sens < 3.5 (<3.5-35.0) ng/L B-Natriuretic Peptide (<100) pg/mL Total Protein (6.5-8.0) g/dL Albumin (3.5-5.0) g/dL Lipase (8-78) U/L Salicylates (15-30) mg/dL Acetaminophen (<30) mcg/mL Ethyl Alcohol mg/dL COVID-19 ([facility]) Negative (Negative) COVID-19 Clin Com See Note 04/04/22 04/04/22 04/04/22 Range/Units 14:39 15:04 15:04 WBC (4.8-10.8) X10*3/uL RBC (4.60-5.80) X10*6/uL Hgb (14.0-18.0) g/dl Hct (42.0-52.0) % MCV (80.0-98.0) fL MCH (27.0-33.0) pg MCHC (31.0-36.0) g/dl RDW (11.0-16.0) % Plt Count (160-400) X10*3/uL MPV (9.4-12.4) fL Immature Gran % (Auto) (0.0-0.4) % Neut % (Auto) (45-73) % Lymph % (Auto) (20-40) % [place] % (Auto) (2-11) % Eos % (Auto) (0-4) % Baso % (Auto) (0-2) % Lymph # (Auto) (1.2-4.9) X10*3/uL [place] # (Auto) (0.1-1.2) X10*3/uL Eos # (Auto) (0.0-0.4) X10*3/uL Baso # (Auto) (0.0-0.2) X10*3/uL Abs Immat Gran (auto) (0.00-0.03) X10*3/uL Absolute Neuts (auto) (2.0-8.3) x10*3/uL Absolute Nucleated RBC (0.0-0.012) X10*3/uL Nucleated RBC % (auto) (0.0-0.2) /100WBC Sodium 140 (135-145) mmol/L Potassium 4.1 (3.3-5.1) mmol/L Chloride 106 (96-108) mmol/L Carbon Dioxide 25 (22-29) mmol/L Anion Gap 13 (12-20) BUN 12 (9-16) mg/dL Creatinine 0.79 (0.5-1.4) mg/dL Estim Creat Clear Calc 85.3 Estimated GFR > 60 Random Glucose 89 (60-115) mg/dL Calcium 8.7 (8.4-10.2) mg/dL Total Bilirubin 0.2 (0.0-1.0) mg/dL Direct Bilirubin < 0.2 (0.0-0.5) mg/dL AST 15 (5-37) U/L ALT 11 (0-40) U/L Alkaline Phosphatase 98 (39-117) U/L Troponin I High Sens (<3.5-35.0) ng/L B-Natriuretic Peptide < 10 (<100) pg/mL Total Protein 6.2 L (6.5-8.0) g/dL Albumin 3.6 (3.5-5.0) g/dL Lipase 24 (8-78) U/L Salicylates < 5.0 L (15-30) mg/dL Acetaminophen < 1 (<30) mcg/mL Ethyl Alcohol mg/dL COVID-19 ([facility]) (Negative) COVID-19 Clin Com 04/04/22 Range/Units 15:04 WBC (4.8-10.8) X10*3/uL RBC (4.60-5.80) X10*6/uL Hgb (14.0-18.0) g/dl Hct (42.0-52.0) % MCV (80.0-98.0) fL MCH (27.0-33.0) pg MCHC (31.0-36.0) g/dl RDW (11.0-16.0) % Plt Count (160-400) X10*3/uL MPV (9.4-12.4) fL Immature Gran % (Auto) (0.0-0.4) % Neut % (Auto) (45-73) % Lymph % (Auto) (20-40) % [place] % (Auto) (2-11) % Eos % (Auto) (0-4) % Baso % (Auto) (0-2) % Lymph # (Auto) (1.2-4.9) X10*3/uL [place] # (Auto) (0.1-1.2) X10*3/uL Eos # (Auto) (0.0-0.4) X10*3/uL Baso # (Auto) (0.0-0.2) X10*3/uL Abs Immat Gran (auto) (0.00-0.03) X10*3/uL Absolute Neuts (auto) (2.0-8.3) x10*3/uL Absolute Nucleated RBC (0.0-0.012) X10*3/uL Nucleated RBC % (auto) (0.0-0.2) /100WBC Sodium (135-145) mmol/L Potassium (3.3-5.1) mmol/L Chloride (96-108) mmol/L Carbon Dioxide (22-29) mmol/L Anion Gap (12-20) BUN (9-16) mg/dL Creatinine (0.5-1.4) mg/dL Estim Creat Clear Calc Estimated GFR Random Glucose (60-115) mg/dL Calcium (8.4-10.2) mg/dL Total Bilirubin (0.0-1.0) mg/dL Direct Bilirubin (0.0-0.5) mg/dL AST (5-37) U/L ALT (0-40) U/L Alkaline Phosphatase (39-117) U/L Troponin I High Sens (<3.5-35.0) ng/L B-Natriuretic Peptide (<100) pg/mL Total Protein (6.5-8.0) g/dL Albumin (3.5-5.0) g/dL Lipase (8-78) U/L Salicylates (15-30) mg/dL Acetaminophen (<30) mcg/mL Ethyl Alcohol < 10 mg/dL COVID-19 ([facility]) (Negative) COVID-19 Clin Com Imaging Data Chest x-ray: Attestation: I personally reviewed and interpreted this imaging study as follows: Radiologist's impression: No acute cardiopulmonary process. ? ECG Data ECG #1: Attestation: I personally reviewed and interpreted this ECG as follows: Interpretation: Normal sinus rhythm at 69 beats per minutes, incomplete right bundle branch block, no ST-T changes. Discharge Plan Discharge Clinical Impression: Atypical chest pain, Depression, Suicide ideation Patient Disposition: Still a Patient Prescriptions: No Action atorvastatin [Lipitor] 40 mg tablet 1 tab PO BEDTIME ipratropium-albuterol 0.5 mg-3 mg(2.5 mg base)/3 mL solution for nebulization 1 amp inhalation TID quetiapine 100 mg tablet 1 tab PO QAM paroxetine HCl 20 mg tablet 1 tab PO QAM pantoprazole 40 mg tablet,delayed release (DR/EC) 1 tab PO QAM mirtazapine 30 mg tablet 1 tab PO BEDTIME PRN (Reason: Insomnia) ferrous sulfate [FeroSul] 325 mg (65 mg iron) tablet 1 tab PO BEDTIME verapamil 100 mg capsule, [address] 1 cap PO BEDTIME fluticasone propionate [Flovent HFA] 220 mcg/actuation HFA aerosol inhaler 2 puff inhalation BID Spiriva with HandiHaler 18 mcg capsule, w/inhalation device 1 cap inhalation DAILY nicotine 21 mg/24 hr Patch 24 Hour 21 mg transdermal DAILY 28 Days Qty: 28 0RF Rx Instructions: remove at bedtime albuterol sulfate 90 mcg/actuation HFA aerosol inhaler 2 puff inhalation Q4-6H PRN (Reason: shortness of breath or wheezing) Qty: 8.5 0RF quetiapine 50 mg tablet 300 mg PO BEDTIME clonazepam 1 mg tablet 1 tab PO DAILY PRN (Reason: anxiety) clonidine HCl 0.1 mg tablet 1 tab PO BID PRN (Reason: anxiety) cyclobenzaprine 5 mg tablet 1 tab PO QD-BID PRN (Reason: pain) hydroxyzine HCl 25 mg tablet 1 tab PO BEDTIME PRN (Reason: anxiety) hydroxyzine HCl 25 mg tablet 1 tab PO BEDTIME PRN (Reason: anxiety) Stiolto Respimat 2.5-2.5 mcg/actuation mist 2 puff PO DAILY
--- NOTE | 2022-04-04 14:36 | PC.NURSE ---
Pt triaged with diplomatic interpreter/translator, sitter at bedside, and pt changed into hospital attire.
[2022-04-04 14:43] LABS: MANUAL DIFF FLAG NO
[2022-04-04 14:49] LABS: Basophils Percent Auto 0.6 % (0-2); Eosinophils Absolute Auto 0.4 X10*3/uL (0.0-0.4); Eosinophils Percent Auto 8.1 % (0-4); Hematocrit 37.8 % (42.0-52.0); Hemoglobin 12.6 g/dl (14.0-18.0); Imm Gran Abs Auto 0.02 X10*3/uL (0.00-0.03); Imm Gran Pct Auto 0.4 % (0.0-0.4); Lymphocytes Absolute Auto 1.6 X10*3/uL (1.2-4.9); Lymphocytes Percent Auto 29.8 % (20-40); Mean Corpuscular HGB Conc 33.3 g/dl (31.0-36.0); Mean Corpuscular Hemoglobin 29.7 pg (27.0-33.0); Mean Corpuscular Volume 89.2 fL (80.0-98.0); Mean Platelet Volume 8.8 fL (9.4-12.4); Monocytes Absolute Auto 0.5 X10*3/uL (0.1-1.2); Neutrophils Absolute Auto 2.7 x10*3/uL (2.0-8.3); Neutrophils Percent Auto 51.1 % (45-73); Platelet Count 363 X10*3/uL (160-400); Red Blood Count 4.24 X10*6/uL (4.60-5.80); Red Cell Distribution Width 15.4 % (11.0-16.0); White Blood Count 5.2 X10*3/uL (4.8-10.8)
[2022-04-04 15:01] LABS: COVID-19 Test Negative (Negative); IDNOW Serial# 9DB6401D
[2022-04-04 15:06] LABS: B Type Natriuretic Peptide < 10 pg/mL (<100)
[2022-04-04 15:06] LABS: Troponin-I High Sensitivity < 3.5 ng/L (<3.5-35.0)
[2022-04-04] MEDS: Acetaminophen 325 MG TABLET 650 MG PO (15:15)
[2022-04-04 15:17] VITALS: BP 130/84; PULSE 74; RESP 15; O2SAT 94
[2022-04-04 15:25] LABS: Acetaminophen LAB < 1 mcg/mL (<30); Ethanol < 10 mg/dL; Salicylate < 5.0 mg/dL (15-30)
[2022-04-04 15:26] LABS: Alanine Aminotransferase 11 U/L (0-40); Albumin Level 3.6 g/dL (3.5-5.0); Alkaline Phosphatase 98 U/L (39-117); Anion Gap 13 (12-20); Aspartate Amino Transferase 15 U/L (5-37); Bilirubin Direct < 0.2 mg/dL (0.0-0.5); Bilirubin Total 0.2 mg/dL (0.0-1.0); Blood Urea Nitrogen 12 mg/dL (9-16); Calcium 8.7 mg/dL (8.4-10.2); Carbon Dioxide 25 mmol/L (22-29); Chloride 106 mmol/L (96-108); Creatinine Clr Calc Pharmacy 85.3; Estimated Glomerular Filt Rate > 60; Glucose Random 89 mg/dL (60-115); Lipase 24 U/L (8-78); Potassium 4.1 mmol/L (3.3-5.1); Sodium 140 mmol/L (135-145); Total Protein 6.2 g/dL (6.5-8.0)
[2022-04-04 15:42] VITALS: BP 127/76; PULSE 71; RESP 16; TEMP 36.1; O2SAT 96
[2022-04-04] MEDS: Ketorolac Tromethamine 30 MG/ML VIAL IVPUSH (16:11)
[2022-04-04 18:14] VITALS: BP 121/78; PULSE 75; RESP 16; O2SAT 93
[2022-04-04 18:52] LABS: Troponin-I High Sensitivity < 3.5 ng/L (<3.5-35.0)
--- NOTE | 2022-04-04 19:43 | MHC.CARE ---
BHN smart sheet completed
[2022-04-04 20:00] VITALS: BP 122/73; PULSE 74; RESP 16; TEMP 36.9; O2SAT 98
--- NOTE | 2022-04-04 21:09 | PC.NURSE ---
Assumed care of pt. at 1900. Pt. c/o pain in the chest area and requesting pain medications. Pt. has already received tylenol and ketorolac. MD aware and prescribed ibuprofen. Pt. declined ibuprofen as he stated it would hurt his stomach and was looking for something that would go IV such as demerol. MD won't prescribe narcotics as the patient was negative for chest issues and pain more likely related to psychiatric issues rather than medical issues.
[2022-04-04 21:16] LABS: Appearance Urine Clear; Color Urine Yellow; Glucose Urine UA Negative (Negative); Leukocyte Esterase Urine Trace (Negative); Nitrite Urine Negative (Negative); Specific Gravity - Urine 1.025 (1.005-1.025); UMIC TRIGGER UACC YES; Urine Blood Negative (Negative); Urine Ketones Trace mg/dL (Negative); Urine Protein Negative (Neg-Trace)
[2022-04-04 21:30] LABS: Amphetamine Screen Urine Not Detected (Not Detect); Barbiturates, Urine Not Detected (Not Detect); Benzodiazepines Screen Urine Not Detected (Not Detect); Cannabinoid Screen Urine POSITIVE (Not Detect); Cocaine Screen Urine POSITIVE (Not Detect); Fentanyl, urine Not Detected (Not Detect); Opiate Screen Urine Not Detected (Not Detect); Phencyclidine Screen Urine Not Detected (Not Detect)
[2022-04-04 22:11] LABS: Bacteria Urine None Seen (None Seen); Squamous Epithelial Cell Urine 0-2 /HPF (0-2); WBC Urine 0-5 /HPF (0-5)
[2022-04-04] MEDS: QUEtiapine Fumarate 100 MG TABLET PO (22:39)
[2022-04-04] MEDS: Mirtazapine 30 MG TABLET PO (22:39)
[2022-04-04] MEDS: QUEtiapine Fumarate 300 MG TABLET PO (22:46)
[2022-04-04] MEDS: Atorvastatin Calcium 40 MG TABLET PO (22:46)
[2022-04-04] MEDS: PARoxetine HCL 20 MG TABLET PO (22:46)
[2022-04-04] MEDS: clonazePAM 1 MG TABLET PO (22:51)
[2022-04-04 23:47] VITALS: BP 138/81; PULSE 70; RESP 16; TEMP 36.6; O2SAT 96
--- NOTE | 2022-04-05 06:42 | PC.NURSE ---
Patient slept through the night, no distress observed/reported, medication compliant, primarily Vincentian speaking but speak adequate Spanish, behavior non concerning, disposition per care team is section 12 inpatient bed search, VSS, will continue to monitor.
--- NOTE | 2022-04-05 07:46 | PC.NURSE ---
patient appears to remain asleep at present respirations are even and unlabored patient appears in no distress
[2022-04-05] MEDS: Nicotine 21 MG PATCH.TD24 TRANSDERMA (09:06)
[2022-04-05] MEDS: Omeprazole 20 MG CAPSULE.DR PO (09:07)
[2022-04-05] MEDS: QUEtiapine Fumarate 100 MG TABLET PO (09:07)
[2022-04-05 09:17] VITALS: BP 103/76; PULSE 88; RESP 18; TEMP 36.5; O2SAT 95
[2022-04-05] MEDS: clonazePAM 1 MG TABLET PO ×2 (09:26→14:17)
[2022-04-05] MEDS: PARoxetine HCL 20 MG TABLET PO (09:26)
[2022-04-05] MEDS: Fluticasone Propionate 250 MCG BLST.W.DEV 2 PUFF INHALE ×2 (10:05→21:20)
[2022-04-05] MEDS: Milk of Magnesia 30 ML ORAL.SUSP PO (13:20)
[2022-04-05 14:14] VITALS: BP 127/75; PULSE 79; TEMP 36.4
[2022-04-05] MEDS: Acetaminophen 325 MG TABLET 975 MG PO (17:33)
[2022-04-05 18:00] VITALS: BP 118/76; PULSE 82; RESP 16; TEMP 36.4; O2SAT 99
[2022-04-05] MEDS: Mirtazapine 30 MG TABLET PO (19:46)
[2022-04-05] MEDS: QUEtiapine Fumarate 300 MG TABLET PO (19:47)
[2022-04-05] MEDS: Atorvastatin Calcium 40 MG TABLET PO (19:47)
[2022-04-06] MEDS: traZODone HCL 50 MG TABLET PO (03:08)
[2022-04-06] MEDS: Fluticasone Propionate 250 MCG BLST.W.DEV 2 PUFF INHALE ×2 (08:07→20:27)
[2022-04-06] MEDS: PARoxetine HCL 20 MG TABLET PO (08:08)
[2022-04-06] MEDS: Omeprazole 20 MG CAPSULE.DR PO (08:08)
[2022-04-06] MEDS: QUEtiapine Fumarate 100 MG TABLET PO (08:08)
[2022-04-06] MEDS: Nicotine 21 MG PATCH.TD24 TRANSDERMA (08:10)
[2022-04-06 08:12] VITALS: BP 135/79; PULSE 82; RESP 18; TEMP 36.6; O2SAT 96
[2022-04-06] MEDS: Milk of Magnesia 30 ML ORAL.SUSP PO (08:19)
[2022-04-06] MEDS: clonazePAM 1 MG TABLET PO ×2 (08:19→17:29)
[2022-04-06] MEDS: Albuterol Sulfate 90 MCG 8 GM INHALER 2 PUFF INHALE ×2 (08:55→20:30)
[2022-04-06 09:17] LABS: Alanine Aminotransferase 13 U/L (0-40); Albumin Level 3.9 g/dL (3.5-5.0); Alkaline Phosphatase 102 U/L (39-117); Anion Gap 15 (12-20); Aspartate Amino Transferase 16 U/L (5-37); Bilirubin Total 0.3 mg/dL (0.0-1.0); Blood Urea Nitrogen 11 mg/dL (9-16); Calcium 8.8 mg/dL (8.4-10.2); Carbon Dioxide 24 mmol/L (22-29); Chloride 101 mmol/L (96-108); Creatinine Clr Calc Pharmacy 71.7; Estimated Glomerular Filt Rate > 60; Glucose Fasting 121 mg/dL (60-99); Potassium 4.8 mmol/L (3.3-5.1); Sodium 135 mmol/L (135-145); Total Protein 6.9 g/dL (6.5-8.0)
[2022-04-06] MEDS: QUEtiapine Fumarate 25 MG TABLET PO (12:38)
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
[2022-04-06] MEDS: QUEtiapine Fumarate 50 MG TABLET PO (17:29)
[2022-04-06] MEDS: Ibuprofen 800 MG TABLET PO (19:32)
[2022-04-06 20:15] VITALS: BP 109/58; PULSE 97; TEMP 36.8
[2022-04-06] MEDS: Atorvastatin Calcium 40 MG TABLET PO (20:22)
[2022-04-06] MEDS: Mirtazapine 30 MG TABLET PO (20:24)
[2022-04-06] MEDS: QUEtiapine Fumarate 300 MG TABLET PO (20:24)
[2022-04-06] MEDS: Nystatin Cream 15 GM TUBE 1 APPL TOPICAL (20:25)
[2022-04-06] MEDS: Acetaminophen 325 MG TABLET 975 MG PO (20:26)
[2022-04-07] MEDS: clonazePAM 1 MG TABLET PO ×3 (00:36→19:30)
[2022-04-07] MEDS: traZODone HCL 50 MG TABLET PO (00:36)
[2022-04-07 06:00] VITALS: BP 121/72; PULSE 88; TEMP 36.6; O2SAT 95
[2022-04-07 07:00] VITALS: BMI 23.6
[2022-04-07] MEDS: Omeprazole 20 MG CAPSULE.DR PO (08:25)
[2022-04-07] MEDS: Nicotine 21 MG PATCH.TD24 TRANSDERMA (08:26)
[2022-04-07] MEDS: QUEtiapine Fumarate 50 MG TABLET PO ×4 (08:29→22:27)
[2022-04-07] MEDS: Fluticasone Propionate 250 MCG BLST.W.DEV 2 PUFF INHALE ×2 (09:17→19:39)
[2022-04-07] MEDS: Nystatin Cream 15 GM TUBE 1 APPL TOPICAL ×2 (09:19→19:47)
[2022-04-07] MEDS: Albuterol Sulfate 90 MCG 8 GM INHALER 2 PUFF INHALE (12:22)
[2022-04-07] MEDS: Lidocaine 4 % Patch ADH..PATCH 1 PATCH TRANSDERMA ×2 (16:25→19:26)
[2022-04-07 18:00] VITALS: BP 109/59; PULSE 85; TEMP 36.8; O2SAT 95
[2022-04-07] MEDS: Mirtazapine 30 MG TABLET PO (19:25)
[2022-04-07] MEDS: Tamsulosin HCL 0.4 MG CAPSULE PO (19:25)
[2022-04-07] MEDS: QUEtiapine Fumarate 300 MG TABLET PO (19:25)
[2022-04-07] MEDS: Atorvastatin Calcium 40 MG TABLET PO (19:26)
[2022-04-07] MEDS: PARoxetine HCL 40 MG TABLET PO (19:46)
[2022-04-07] MEDS: polyethylene glycoL 3350 17 GM POWD.PACK PO (19:47)
[2022-04-07] MEDS: cloNIDine HCL 0.1 MG TABLET PO (22:30)
--- NOTE | 2022-04-07 23:02 | P.PNPSI_ITS ---
Subjective Subjective Date of Service: 04/07/22 Reason For Visit: Depression/SI Subjective Notes: Small Warning and Conditional Voluntary Interim History: I spoke with pt's team, Dr. Gil says he will f/u with pt in OP setting, kidney stones are small, did not recommend any intervention other than was is already being done, encourage fluids, also said pt appears constipated per scan, will give miralax. Disussed with hospitalist, will prescribe flomax. I spoke with pt with converter operator. Pt complains he is In a lot of pain, I hurt a lot. Says he is peeing blood. Wants to try an increased dose of paxil for depression, poor sleep. Asks for clonidine 0.1 mg PRN daily to be restored for anxiety, as T/W declined to increase klonopin. Wakes up throughout the night, wakes up early.? Medication Compliance: Yes Side effects from medications: No Attending Groups: Intermittent Review of Systems Acute medical concerns: No Medical Review of Systems: unchanged Mental Status Exam Mental Status Exam Narrative: A&O. In hospital attire, okay hygiene, physically uncomfortable, not malodorous. Good eye contact, attentive. No Tics or Tremors. No abnormal involuntary movements. Calm, guarded. Non-pressured speech, spontaneous with regular rate and rhythm, normal volume and prosody. No prolonged speech latency or dysarthria. Mood is ?depressed,? affect is constricted. Denies SI/SIB/HI upon inquiry. Denies A/VH or delusional thought content. Thoughts are coherent, organized. No known cognitive or memory impairment. Insight/ Judgment fair and adequate. Diagnostics Vital Signs (24Hr): Vital Signs - 24 hr 04/07/22 18:00 Temperature 98.2 F Pulse Rate 85 Blood Pressure 109/59 L Pulse Oximetry 95 BMI result Body Mass Index 23.6 Labs Results: 04/04/22 14:38 04/06/22 08:22 Labs: Laboratory Results - last 48 hr 04/06/22 08:22 Sodium 135 Potassium 4.8 Chloride 101 Carbon Dioxide 24 Anion Gap 15 BUN 11 Creatinine 0.94 Estim Creat Clear Calc 71.7 Estimated GFR > 60 Fasting Glucose 121 H Calcium 8.8 Total Bilirubin 0.3 AST 16 ALT 13 Alkaline Phosphatase 102 Total Protein 6.9 Albumin 3.9 Imaging Radiology Impressions: ITS Impressions Chest X-Ray 04/04/22 14:25 IMPRESSION: No acute cardiopulmonary process. Abdomen/Pelvis CT 04/06/22 18:29 IMPRESSION: Bilateral nonobstructing nephrolithiasis. Stone burden has increased since the 06/17/2021 study Fleischner guidelines were followed. Medications Medications Current Medications Acetaminophen (Acetaminophen 325 Mg Tablet) 975 mg PO TID PRN PRN Reason: Headache/Pain Mild Scale (1-3) Last Admin: 04/08/22 02:58 Dose: 975 mg Al Hydroxide/Mg Hydroxide (Magnesium Hydrox/Alum Hydrox 30 Ml Oral.Susp) 30 ml PO Q6H PRN PRN Reason: Heartburn/Nausea Albuterol Sulfate (Albuterol Sulfate 90 Mcg 8 Gm Inhaler) 2 puff INHALE RQ4H PRN PRN Reason: Shortness of Breath Last Admin: 04/07/22 12:22 Dose: 2 puff Atorvastatin Calcium (Atorvastatin Calcium 40 Mg Tablet) 40 mg PO BEDTIME ADRIEN Last Admin: 04/07/22 19:26 Dose: 40 mg Clonazepam (Clonazepam 1 Mg Tablet) 1 mg PO BID PRN PRN Reason: anxiety Last Admin: 04/08/22 03:01 Dose: 1 mg Clonidine HCl (Clonidine Hcl 0.1 Mg Tablet) 0.1 mg PO DAILY PRN; Protocol PRN Reason: hyperarousal Last Admin: 04/07/22 22:30 Dose: 0.1 mg Fluticasone Propionate (Fluticasone Propionate 250 Mcg Blst.W.Dev) 2 puff INHALE RBID ADRIEN Last Admin: 04/07/22 19:39 Dose: 2 puff Ibuprofen (Ibuprofen 800 Mg Tablet) 800 mg PO Q8H PRN PRN Reason: mod-severe pain Last Admin: 04/06/22 19:32 Dose: 800 mg Lidocaine (Lidocaine 4 % Patch Adh..Patch) 1 patch TRANSDERMA DAILY PRN; Protocol PRN Reason: mild pain Last Admin: 04/07/22 16:25 Dose: 1 patch Magnesium Hydroxide (Milk Of Magnesia 30 Ml Oral.Susp) 30 ml PO DAILY PRN PRN Reason: Constipation Last Admin: 04/06/22 08:19 Dose: 30 ml Mirtazapine (Mirtazapine 30 Mg Tablet) 30 mg PO BEDTIME ADRIEN Last Admin: 04/07/22 19:25 Dose: 30 mg Nicotine (Nicotine 21 Mg Patch.Td24) 21 mg TRANSDERMA DAILY [facility] Last Admin: 04/07/22 08:26 Dose: 21 mg Nystatin (Nystatin Cream 15 Gm Tube) 1 appl TOPICAL BID ADRIEN Last Admin: 04/07/22 19:47 Dose: 1 appl Nystatin (Nystatin Powder 15 Gm Bottle) 1 appl TOPICAL BID PRN PRN Reason: itching with water Omeprazole (Omeprazole 20 Mg Capsule.Dr) 20 mg PO DAILY [facility] Last Admin: 04/07/22 08:25 Dose: 20 mg Paroxetine HCl (Paroxetine Hcl 40 Mg Tablet) 40 mg PO BEDTIME ADRIEN Last Admin: 04/07/22 19:46 Dose: 40 mg Polyethylene Glycol (Polyethylene Glycol 3350 17 Gm Powd.Pack) 17 gm PO DAILY [facility] Last Admin: 04/07/22 19:47 Dose: 17 gm Quetiapine Fumarate (Quetiapine Fumarate 300 Mg Tablet) 300 mg PO BEDTIME ADRIEN Last Admin: 04/07/22 19:25 Dose: 300 mg Quetiapine Fumarate (Quetiapine Fumarate 50 Mg Tablet) 50 mg PO QID PRN PRN Reason: anxiety Last Admin: 04/07/22 22:27 Dose: 50 mg Tamsulosin HCl (Tamsulosin Hcl 0.4 Mg Capsule) 0.4 mg PO DAILY [facility] Tiotropium Ponderosa (Tiotropium Ponderosa 18 Mcg Cap.W.Dev) 1 puff INHALE DAILY [facility] Last Admin: 04/07/22 09:19 Dose: 1 puff Trazodone HCl (Trazodone Hcl 50 Mg Tablet) 50 mg PO BEDTIME PRN PRN Reason: Restlessness Last Admin: 04/07/22 00:36 Dose: 50 mg Verapamil HCl (Verapamil Hcl Sr 100 Mg Cap24h.Pct) 100 mg PO BEDTIME ADRIEN; Protocol Last Admin: 04/07/22 19:25 Dose: 100 mg Allergies Allergies Allergy/AdvReac Type Severity Reaction Status Date / Time ibuprofen Allergy Intermediate Stomach Verified 04/04/22 13:52 Upset penicillin V Allergy Intermediate rash Verified 04/04/22 13:52 Assessment & Plan Assessment & Plan (1) MDD (major depressive disorder), recurrent episode: Status: Acute Code(s): F33.9 - Major depressive disorder, recurrent, unspecified (2) Cocaine use disorder: Status: Acute Code(s): F14.10 - Cocaine abuse, uncomplicated Plan Augustin is a 56 y.o. Male who carries a dx of MDD recurrent and cocaine use disorder. Pt presented to [facility] ED on 04/04/2022 due to depression, SI, relapse on cocaine. Precipitating factors include that he interpersonal issues with his , financial stress. Plan: Will discontinue PRN clonidine due to reported lack of efficacy. Will increase PRN seroquel to 50 mg QID PRN, will discontinue seroquel 100 mg as pt appears to benefit from it more as a PRN than a scheduled med in the morning. He will continue on seroquel 300 mg at bedtime, as he says this helps with sleep. Will move paxil to bedtime to further help with sleep. Consider increasing dose. Will increase klonopin to 1 mg BID PRN for anxiety. Says his L sided pain started at 5am this morning. I consulted with hospitalist, will order abdominal/ pelvic CT to r/o nephrolithiasis, as pt is now identifying pain is in his flank and he has hx of kidney stones. Will add motrin PRN for pain and place consult for urologist if confirmed nephrolithiasis. Pt also complaining of pruritic and painful rash on lower abdomen, per hospitalist this is fungal, will order nystatin. 04/07: Will increase paxil to 30 mg HS for depression, anxiety, re-start clonidine 0.1 mg daily PRN for anxiety Q15 min safety checks, CV Monitor response to medications. Monitor for safety in the milieu. Discharge on stabilization. Patient seen. Chart reviewed. Discussed with team. Obtain collateral contact info as needed I spent minutes with the patient and/or on the patient floor today, greater than?50% of which was spent counseling/coordinating care. Patient educated on: medication risk/benefits and therapeutic strategies Reason for contiued inpatient stay Substantial Risk for: rapid decompensation and med/psych decompensation
[2022-04-08] MEDS: Acetaminophen 325 MG TABLET 975 MG PO (02:58)
[2022-04-08] MEDS: clonazePAM 1 MG TABLET PO ×2 (03:01→18:51)
[2022-04-08] MEDS: QUEtiapine Fumarate 50 MG TABLET PO ×4 (07:05→22:52)
[2022-04-08] MEDS: Fluticasone Propionate 250 MCG BLST.W.DEV 2 PUFF INHALE (08:29)
[2022-04-08] MEDS: Omeprazole 20 MG CAPSULE.DR PO (08:30)
[2022-04-08] MEDS: Nystatin Cream 15 GM TUBE 1 APPL TOPICAL ×2 (08:32→18:52)
[2022-04-08 08:34] VITALS: BP 110/64; PULSE 94; RESP 18; TEMP 36.1; O2SAT 94
[2022-04-08] MEDS: Nicotine 21 MG PATCH.TD24 TRANSDERMA (08:49)
[2022-04-08] MEDS: Lidocaine 4 % Patch ADH..PATCH 1 PATCH TRANSDERMA (08:50)
[2022-04-08] MEDS: Tamsulosin HCL 0.4 MG CAPSULE PO (09:59)
[2022-04-08] MEDS: polyethylene glycoL 3350 17 GM POWD.PACK PO (09:59)
[2022-04-08] MEDS: Ketorolac Tromethamine 30 MG/ML VIAL IM ×2 (14:31→22:40)
[2022-04-08] MEDS: cloNIDine HCL 0.1 MG TABLET PO ×2 (16:37→22:52)
[2022-04-08 18:00] VITALS: BP 120/70; PULSE 113; TEMP 36.6
--- NOTE | 2022-04-08 18:32 | P.PNPSI_ITS ---
Subjective Subjective Date of Service: 04/08/22 Reason For Visit: Depression/SI Interim History: I spoke with pt's team, day shift provider gave one time dose of ketorolac IM for pain due to nephrolithiasis. I spoke with the pt with behavioral health technician. Says he is still in pain, thinks t he IM ketorolac helped and would like to trial it again. Pt complains of blood in his stool, however he has also been constipated and had a BM, on miralax. Continues to notice blood in his urine. He asks for clonidine PRN to be increased to twice a day. Says his sleep is poor, couldnt sleep nothing, attributes this to his roommate snoring and his physical discomfort/ pain. Says the seroquel is working pretty good, feels it works well with klonopin for anxiety. Feels safe here.? Medication Compliance: Yes Side effects from medications: No Attending Groups: Intermittent Review of Systems Acute medical concerns: No Medical Review of Systems: unchanged Mental Status Exam Mental Status Exam Narrative: A&O. In hospital attire, okay hygiene, not malodorous. Good eye contact, attentive. No Tics or Tremors. No abnormal involuntary movements. Calm, guarded. Non-pressured speech, spontaneous with regular rate and rhythm, normal volume and prosody. No prolonged speech latency or dysarthria. Mood is ?anxious,? affect is appropriate, calm. Denies SI/SIB/HI upon inquiry. Denies A/VH or delusional thought content. Thoughts are coherent, organized. No known cognitive or memory impairment. Insight/ Judgment fair and adequate. Diagnostics Vital Signs (24Hr): Vital Signs - 24 hr 04/08/22 08:34 04/08/22 18:00 Temperature 96.9 F 97.8 F Pulse Rate 94 113 H Respiratory Rate 18 Blood Pressure 110/64 120/70 Pulse Oximetry 94 Oxygen Delivery Method Room Air BMI result Body Mass Index 23.6 Labs Results: 04/04/22 14:38 04/06/22 08:22 Imaging Radiology Impressions: ITS Impressions Chest X-Ray 04/04/22 14:25 IMPRESSION: No acute cardiopulmonary process. Abdomen/Pelvis CT 04/06/22 18:29 IMPRESSION: Bilateral nonobstructing nephrolithiasis. Stone burden has increased since the 06/17/2021 study Fleischner guidelines were followed. Medications Medications Current Medications Acetaminophen (Acetaminophen 325 Mg Tablet) 975 mg PO TID PRN PRN Reason: Headache/Pain Mild Scale (1-3) Last Admin: 04/08/22 02:58 Dose: 975 mg Al Hydroxide/Mg Hydroxide (Magnesium Hydrox/Alum Hydrox 30 Ml Oral.Susp) 30 ml PO Q6H PRN PRN Reason: Heartburn/Nausea Albuterol Sulfate (Albuterol Sulfate 90 Mcg 8 Gm Inhaler) 2 puff INHALE RQ4H PRN PRN Reason: Shortness of Breath Last Admin: 04/07/22 12:22 Dose: 2 puff Atorvastatin Calcium (Atorvastatin Calcium 40 Mg Tablet) 40 mg PO BEDTIME [facility] Last Admin: 04/07/22 19:26 Dose: 40 mg Clonazepam (Clonazepam 1 Mg Tablet) 1 mg PO BID PRN PRN Reason: anxiety Last Admin: 04/08/22 03:01 Dose: 1 mg Clonidine HCl (Clonidine Hcl 0.1 Mg Tablet) 0.1 mg PO DAILY PRN; Protocol PRN Reason: hyperarousal Last Admin: 04/08/22 16:37 Dose: 0.1 mg Fluticasone Propionate (Fluticasone Propionate 250 Mcg Blst.W.Dev) 2 puff INHALE RBID [facility] Last Admin: 04/08/22 08:29 Dose: 2 puff Lidocaine (Lidocaine 4 % Patch Adh..Patch) 1 patch TRANSDERMA DAILY PRN; Protocol PRN Reason: mild pain Last Admin: 04/08/22 08:50 Dose: 1 patch Magnesium Hydroxide (Milk Of Magnesia 30 Ml Oral.Susp) 30 ml PO DAILY PRN PRN Reason: Constipation Last Admin: 04/06/22 08:19 Dose: 30 ml Mirtazapine (Mirtazapine 30 Mg Tablet) 30 mg PO BEDTIME [facility] Last Admin: 04/07/22 19:25 Dose: 30 mg Nicotine (Nicotine 21 Mg Patch.Td24) 21 mg TRANSDERMA DAILY [facility] Last Admin: 04/08/22 08:49 Dose: 21 mg Nystatin (Nystatin Cream 15 Gm Tube) 1 appl TOPICAL BID [facility] Last Admin: 04/08/22 08:32 Dose: 1 appl Nystatin (Nystatin Powder 15 Gm Bottle) 1 appl TOPICAL BID PRN PRN Reason: itching with water Omeprazole (Omeprazole 20 Mg Capsule.) 20 mg PO DAILY [facility] Last Admin: 04/08/22 08:30 Dose: 20 mg Paroxetine HCl (Paroxetine Hcl 30 Mg Tablet) 30 mg PO BEDTIME [facility] Polyethylene Glycol (Polyethylene Glycol 3350 17 Gm Powd.Pack) 17 gm PO DAILY [facility] Last Admin: 04/08/22 09:59 Dose: 17 gm Quetiapine Fumarate (Quetiapine Fumarate 300 Mg Tablet) 300 mg PO BEDTIME [facility] Last Admin: 04/07/22 19:25 Dose: 300 mg Quetiapine Fumarate (Quetiapine Fumarate 50 Mg Tablet) 50 mg PO QID PRN PRN Reason: anxiety Last Admin: 04/08/22 16:38 Dose: 50 mg Tamsulosin HCl (Tamsulosin Hcl 0.4 Mg Capsule) 0.4 mg PO DAILY [facility] Last Admin: 04/08/22 09:59 Dose: 0.4 mg Tiotropium [place] (Tiotropium [place] 18 Mcg Cap.W.Dev) 1 puff INHALE DAILY [facility] Last Admin: 04/08/22 08:29 Dose: 1 puff Trazodone HCl (Trazodone Hcl 50 Mg Tablet) 50 mg PO BEDTIME PRN PRN Reason: Restlessness Last Admin: 04/07/22 00:36 Dose: 50 mg Verapamil HCl (Verapamil Hcl Sr 100 Mg Cap24h.Pct) 100 mg PO BEDTIME [facility]; Protocol Last Admin: 04/07/22 19:25 Dose: 100 mg Allergies Allergies Allergy/AdvReac Type Severity Reaction Status Date / Time ibuprofen Allergy Intermediate Stomach Verified 04/04/22 13:52 Upset penicillin V Allergy Intermediate rash Verified 04/04/22 13:52 Assessment & Plan Assessment & Plan (1) MDD (major depressive disorder), recurrent episode: Status: Acute Code(s): F33.9 - Major depressive disorder, recurrent, unspecified (2) Cocaine use disorder: Status: Acute Code(s): F14.10 - Cocaine abuse, uncomplicated Plan Augustin is a 56 y.o. Male who carries a dx of MDD recurrent and cocaine use disorder. Pt presented to [facility] [place] [facility] on 04/04/2022 due to depression, SI, relapse on cocaine. Precipitating factors include that he interpersonal issues with his , financial stress. Plan: Will discontinue PRN clonidine due to reported lack of efficacy. Will increase PRN seroquel to 50 mg QID PRN, will discontinue seroquel 100 mg as pt appears to benefit from it more as a PRN than a scheduled med in the morning. He will continue on seroquel 300 mg at bedtime, as he says this helps with sleep. Will move paxil to bedtime to further help with sleep. Consider increasing dose. Will increase klonopin to 1 mg BID PRN for anxiety. Says his L sided pain started at 5am this morning. I consulted with hospitalist, will order abdominal/ pelvic CT to r/o nephrolithiasis, as pt is now identifying pain is in his flank and he has hx of kidney stones. Will add motrin PRN for pain and place consult for urologist if confirmed nephrolithiasis. Pt also complaining of pruritic and painful rash on lower abdomen, per hospitalist this is fungal, will order nystatin. 04/07: Will increase paxil to 30 mg HS for depression, anxiety, re-start clonidine 0.1 mg daily PRN for anxiety 04/08: start trial of ketorolac x 5 days, may use 30 mg Q6H PRN, max dose 120 mg/ day. increase clonidine to 0.1 mg BID PRN for anxiety, hyperarousal. Q15 min safety checks, CV Monitor response to medications. Monitor for safety in the milieu. Discharge on stabilization. Patient seen. Chart reviewed. Discussed with team. Obtain collateral contact info as needed I spent minutes with the patient and/or on the patient floor today, greater than?50% of which was spent counseling/coordinating care. Patient educated on: diagnosis, medication risk/benefits and therapeutic strate gies Reason for contiued inpatient stay Substantial Risk for: med/psych decompensation
[2022-04-08] MEDS: Atorvastatin Calcium 40 MG TABLET PO (18:52)
[2022-04-08] MEDS: Mirtazapine 30 MG TABLET PO (18:52)
[2022-04-08] MEDS: PARoxetine HCL 30 MG TABLET PO (18:52)
[2022-04-08] MEDS: QUEtiapine Fumarate 300 MG TABLET PO (18:52)
[2022-04-08 22:50] VITALS: BP 108/65; PULSE 104
[2022-04-09] MEDS: traZODone HCL 50 MG TABLET PO (01:09)
[2022-04-09 06:00] VITALS: BP 103/67; PULSE 88; TEMP 36.3
[2022-04-09] MEDS: QUEtiapine Fumarate 50 MG TABLET PO ×2 (06:10→16:41)
[2022-04-09] MEDS: clonazePAM 1 MG TABLET PO ×2 (06:11→20:05)
[2022-04-09] MEDS: Albuterol Sulfate 90 MCG 8 GM INHALER 2 PUFF INHALE (06:25)
[2022-04-09] MEDS: Fluticasone Propionate 250 MCG BLST.W.DEV 2 PUFF INHALE ×2 (06:26→20:12)
[2022-04-09] MEDS: Nicotine 21 MG PATCH.TD24 TRANSDERMA (08:30)
[2022-04-09] MEDS: polyethylene glycoL 3350 17 GM POWD.PACK PO (08:31)
[2022-04-09] MEDS: Tamsulosin HCL 0.4 MG CAPSULE PO (08:33)
[2022-04-09] MEDS: Omeprazole 20 MG CAPSULE.DR PO (08:33)
[2022-04-09] MEDS: cloNIDine HCL 0.1 MG TABLET PO (08:35)
[2022-04-09] MEDS: Ketorolac Tromethamine 30 MG/ML VIAL IM ×2 (09:45→16:36)
[2022-04-09] MEDS: Nystatin Cream 15 GM TUBE 1 APPL TOPICAL ×2 (09:51→20:16)
--- NOTE | 2022-04-09 16:16 | HO.PSYCHPN ---
Subjective Subjective Date of Service: 04/09/22 Reason For Visit: Depression/SI Interim History: pt says Ketorolac is helping with kidney pain. No SI, mood is better. Mental Status Exam Mental Status Exam Narrative: A&O. In hospital attire, okay hygiene, not malodorous. Good eye contact, attentive. No Tics or Tremors. No abnormal involuntary movements. Calm, guarded. Non-pressured speech, spontaneous with regular rate and rhythm, normal volume and prosody. No prolonged speech latency or dysarthria. Mood is ?better,? affect is appropriate, calm. Denies SI/SIB/HI upon inquiry. Denies A/VH or delusional thought content. Thoughts are coherent, organized. No known cognitive or memory impairment. Insight/ Judgment fair and adequate. Diagnostics Vital Signs (24Hr): Vital Signs - 24 hr 04/08/22 18:00 04/08/22 22:50 04/09/22 06:00 Temperature 97.8 F 97.4 F Pulse Rate 113 H 104 H 88 Blood Pressure 120/70 108/65 103/67 BMI result Body Mass Index 23.6 Labs Results: 04/04/22 14:38 04/06/22 08:22 Imaging Radiology Impressions: ITS Impressions Chest X-Ray 04/04/22 14:25 IMPRESSION: No acute cardiopulmonary process. Abdomen/Pelvis CT 04/06/22 18:29 IMPRESSION: Bilateral nonobstructing nephrolithiasis. Stone burden has increased since the 06/17/2021 study Fleischner guidelines were followed. Medications Medications Current Medications Acetaminophen (Acetaminophen 325 Mg Tablet) 975 mg PO TID PRN PRN Reason: Headache/Pain Mild Scale (1-3) Last Admin: 04/08/22 02:58 Dose: 975 mg Al Hydroxide/Mg Hydroxide (Magnesium Hydrox/Alum Hydrox 30 Ml Oral.Susp) 30 ml PO Q6H PRN PRN Reason: Heartburn/Nausea Albuterol Sulfate (Albuterol Sulfate 90 Mcg 8 Gm Inhaler) 2 puff INHALE RQ4H PRN PRN Reason: Shortness of Breath Last Admin: 04/09/22 06:25 Dose: 2 puff Atorvastatin Calcium (Atorvastatin Calcium 40 Mg Tablet) 40 mg PO BEDTIME [facility] Last Admin: 04/08/22 18:52 Dose: 40 mg Clonazepam (Clonazepam 1 Mg Tablet) 1 mg PO BID PRN PRN Reason: anxiety Last Admin: 04/09/22 06:11 Dose: 1 mg Clonidine HCl (Clonidine Hcl 0.1 Mg Tablet) 0.1 mg PO BID PRN; Protocol PRN Reason: hyperarousal Last Admin: 04/09/22 08:35 Dose: 0.1 mg Fluticasone Propionate (Fluticasone Propionate 250 Mcg Blst.W.Dev) 2 puff INHALE RBID [facility] Last Admin: 04/09/22 06:26 Dose: 2 puff Ketorolac Tromethamine (Ketorolac Tromethamine 30 Mg/Ml Vial) 30 mg IM Q6H PRN PRN Reason: pain due to kidney stones Stop: 04/12/22 23:59 Last Admin: 04/09/22 09:45 Dose: 30 mg Lidocaine (Lidocaine 4 % Patch Adh..Patch) 1 patch TRANSDERMA DAILY PRN; Protocol PRN Reason: mild pain Last Admin: 04/08/22 08:50 Dose: 1 patch Magnesium Hydroxide (Milk Of Magnesia 30 Ml Oral.Susp) 30 ml PO DAILY PRN PRN Reason: Constipation Last Admin: 04/06/22 08:19 Dose: 30 ml Mirtazapine (Mirtazapine 30 Mg Tablet) 30 mg PO BEDTIME [facility] Last Admin: 04/08/22 18:52 Dose: 30 mg Nicotine (Nicotine 21 Mg Patch.Td24) 21 mg TRANSDERMA DAILY [facility] Last Admin: 04/09/22 08:30 Dose: 21 mg Nystatin (Nystatin Cream 15 Gm Tube) 1 appl TOPICAL BID [facility] Last Admin: 04/09/22 09:51 Dose: 1 appl Nystatin (Nystatin Powder 15 Gm Bottle) 1 appl TOPICAL BID PRN PRN Reason: itching with water Omeprazole (Omeprazole 20 Mg Capsule.Dr) 20 mg PO DAILY [facility] Last Admin: 04/09/22 08:33 Dose: 20 mg Paroxetine HCl (Paroxetine Hcl 30 Mg Tablet) 30 mg PO BEDTIME [facility] Last Admin: 04/08/22 18:52 Dose: 30 mg Polyethylene Glycol (Polyethylene Glycol 3350 17 Gm Powd.Pack) 17 gm PO DAILY [facility] Last Admin: 04/09/22 08:31 Dose: 17 gm Quetiapine Fumarate (Quetiapine Fumarate 300 Mg Tablet) 300 mg PO BEDTIME [facility] Last Admin: 04/08/22 18:52 Dose: 300 mg Quetiapine Fumarate (Quetiapine Fumarate 50 Mg Tablet) 50 mg PO QID PRN PRN Reason: anxiety Last Admin: 04/09/22 06:10 Dose: 50 mg Tamsulosin HCl (Tamsulosin Hcl 0.4 Mg Capsule) 0.4 mg PO DAILY [facility] Last Admin: 04/09/22 08:33 Dose: 0.4 mg Tiotropium [place] (Tiotropium [place] 18 Mcg Cap.W.Dev) 1 puff INHALE DAILY [facility] Last Admin: 04/09/22 08:37 Dose: 1 puff Trazodone HCl (Trazodone Hcl 50 Mg Tablet) 50 mg PO BEDTIME PRN PRN Reason: Restlessness Last Admin: 04/09/22 01:09 Dose: 50 mg Verapamil HCl (Verapamil Hcl Sr 100 Mg Cap24h.Pct) 100 mg PO BEDTIME [facility]; Protocol Last Admin: 04/08/22 18:51 Dose: 100 mg Allergies Allergies Allergy/AdvReac Type Severity Reaction Status Date / Time ibuprofen Allergy Intermediate Stomach Verified 04/04/22 13:52 Upset penicillin V Allergy Intermediate rash Verified 04/04/22 13:52 Assessment & Plan Assessment & Plan (1) MDD (major depressive disorder), recurrent episode: Status: Acute Code(s): F33.9 - Major depressive disorder, recurrent, unspecified (2) Cocaine use disorder: Status: Acute Code(s): F14.10 - Cocaine abuse, uncomplicated Plan Augustin is a 56 y.o. Male who carries a dx of MDD recurrent and cocaine use disorder. Pt presented to [facility] on 04/04/2022 due to depression, SI, relapse on cocaine. Precipitating factors include that he interpersonal issues with his , financial stress. Plan: Will discontinue PRN clonidine due to reported lack of efficacy. Will increase PRN seroquel to 50 mg QID PRN, will discontinue seroquel 100 mg as pt appears to benefit from it more as a PRN than a scheduled med in the morning. He will continue on seroquel 300 mg at bedtime, as he says this helps with sleep. Will move paxil to bedtime to further help with sleep. Consider increasing dose. Will increase klonopin to 1 mg BID PRN for anxiety. Says his L sided pain started at 5am this morning. I consulted with hospitalist, will order abdominal/ pelvic CT to r/o nephrolithiasis, as pt is now identifying pain is in his flank and he has hx of kidney stones. Will add motrin PRN for pain and place consult for urologist if confirmed nephrolithiasis. Pt also complaining of pruritic and painful rash on lower abdomen, per hospitalist this is fungal, will order nystatin. 04/07: Will increase paxil to 30 mg HS for depression, anxiety, re-start clonidine 0.1 mg daily PRN for anxiety 04/08: start trial of ketorolac x 5 days, may use 30 mg Q6H PRN, max dose 120 mg/ day. increase clonidine to 0.1 mg BID PRN for anxiety, hyperarousal. 04/09 mood is better. Kidney stone pain treated with Ketorolac Q15 min safety checks, CV Monitor response to medications. Monitor for safety in the milieu. Discharge on stabilization. Patient seen. Chart reviewed. Discussed with team. Obtain collateral contact info as needed I spent minutes with the patient and/or on the patient floor today, greater than?50% of which was spent counseling/coordinating care. Patient educated on: diagnosis, medication risk/benefits and medical condition Informed Consent: understands Reason for contiued inpatient stay Substantial Risk for: stable for discharge
[2022-04-09 18:00] VITALS: BP 102/65; PULSE 88; RESP 16; TEMP 37; O2SAT 96
--- NOTE | 2022-04-09 19:59 | PC.NURSE ---
!8:00 I spoke with this patient and advised him that a female peer had filed a verbal complaint about him stating that he had been making sexually inappropriate comments to her, asking her to kiss him and to leave the man she is currently engaged to and to come and live with him. At this time pt stated that he agreed to not interact with the female peer. !8:30 I had another complaint from the female peer stating that her had gone to her room and asked her to come and eat with him in the communal kitchen. I notified security and along with security guards and the career education teacher I again met with this patient and repeated the above stated information. Patient continues to deny the accusations.
[2022-04-09] MEDS: PARoxetine HCL 30 MG TABLET PO (20:02)
[2022-04-09] MEDS: QUEtiapine Fumarate 300 MG TABLET PO (20:02)
[2022-04-09] MEDS: Atorvastatin Calcium 40 MG TABLET PO (20:02)
[2022-04-09] MEDS: Mirtazapine 30 MG TABLET PO (20:02)
[2022-04-09] MEDS: Nystatin Powder 15 GM BOTTLE 1 APPL TOPICAL (20:12)
[2022-04-10] MEDS: Ketorolac Tromethamine 30 MG/ML VIAL IM ×2 (03:48→11:07)
[2022-04-10] MEDS: Acetaminophen 325 MG TABLET 975 MG PO (03:50)
[2022-04-10] MEDS: Nicotine 21 MG PATCH.TD24 TRANSDERMA (06:26)
[2022-04-10] MEDS: Omeprazole 20 MG CAPSULE.DR PO (08:09)
[2022-04-10] MEDS: Tamsulosin HCL 0.4 MG CAPSULE PO (08:09)
[2022-04-10] MEDS: Fluticasone Propionate 250 MCG BLST.W.DEV 2 PUFF INHALE (08:09)
[2022-04-10] MEDS: Nystatin Powder 15 GM BOTTLE 1 APPL TOPICAL (08:10)
[2022-04-10] MEDS: Nystatin Cream 15 GM TUBE 1 APPL TOPICAL (08:13)
[2022-04-10] MEDS: polyethylene glycoL 3350 17 GM POWD.PACK PO (08:14)
[2022-04-10] MEDS: clonazePAM 1 MG TABLET PO ×2 (08:20→12:55)
[2022-04-10] MEDS: Lidocaine 4 % Patch ADH..PATCH 1 PATCH TRANSDERMA (09:11)
[2022-04-10] MEDS: QUEtiapine Fumarate 50 MG TABLET PO (11:11)
[2022-04-10] MEDS: cloNIDine HCL 0.1 MG TABLET PO (12:54)
--- NOTE | 2022-04-10 13:04 | HO.PSYCHPN ---
Subjective Subjective Date of Service: 04/10/22 Reason For Visit: Depression/SI Interim History: Patient seen with cigar tobacco processing supervisor Patient reports that he was in a good mood however is frustrated with another peer. He is upset because this female peer accused him of making overt flirtations with her which he flatly denies. He Agrees he knocked on her door to tell that the food is ready. He also says that once when she talked about her fiance supplying her with narcotics he said she should Not go back there; however he denies he ever said anything about her her coming to live with him; he denies ever going into her room, trying to touch her or kiss her. He says that is inventing stuff. Patient says have been here many times and Has always been respectful to others. Billing Machine Operator concurs as does the staff Who know him well and agree patient has no history of such behavior. Of note, these interactions between patient and peer were Never verified but Came to staff's attention when peer complained. Patient asks for discharge. He says he just does not want to be around her. He and team Were planning for him to discharge tomorrow anyway and he says he Would rather just go today. He says he is going to Returning home and can have his cousin come and pick him up. Denies any SI or HI or AVH and feels he is overall better. Billing Machine Operator consulted with patient's primary provider who feels fine about him discharging today instead of tomorrow. Billing Machine Operator discussed his kidney stones and need to follow-up with insurance verification rep, which patient said he will do. Discussed with on-call child protective services social worker who agrees that psychiatric appointment can be made tomorrow post discharge. Mental Status Exam Mental Status Exam Narrative: Pt is alert and oriented; behavior is cooperative, friendly and calm; patient is not in distress; dressed in casual attire with unkempt hair but adequate hygiene; mood is described as good and affect congruent; eye contact appropriate; Speech is normal rate, volume and prosody and not pressured; no psychomotor agitation/retardation present; thought process is organized and goal directed; Thought content is on tx; otherwise pertinent to relevant topics and without any delusional content, paranoid ideations or grandiosity; denies any SI/HI. There is no evidence of perceptual disturbance. Patients insight and judgment appear intact. Diagnostics Vital Signs (24Hr): Vital Signs - 24 hr 04/09/22 18:00 Temperature 98.6 F Pulse Rate 88 Respiratory Rate 16 Blood Pressure 102/65 Pulse Oximetry 96 Oxygen Delivery Method Room Air BMI result Body Mass Index 23.6 Labs Results: 04/04/22 14:38 04/06/22 08:22 Imaging Radiology Impressions: ITS Impressions Chest X-Ray 04/04/22 14:25 IMPRESSION: No acute cardiopulmonary process. Abdomen/Pelvis CT 04/06/22 18:29 IMPRESSION: Bilateral nonobstructing nephrolithiasis. Stone burden has increased since the 06/17/2021 study Fleischner guidelines were followed. Medications Medications Current Medications Acetaminophen (Acetaminophen 325 Mg Tablet) 975 mg PO TID PRN PRN Reason: Headache/Pain Mild Scale (1-3) Last Admin: 04/10/22 03:50 Dose: 975 mg Al Hydroxide/Mg Hydroxide (Magnesium Hydrox/Alum Hydrox 30 Ml Oral.Susp) 30 ml PO Q6H PRN PRN Reason: Heartburn/Nausea Albuterol Sulfate (Albuterol Sulfate 90 Mcg 8 Gm Inhaler) 2 puff INHALE RQ4H PRN PRN Reason: Shortness of Breath Last Admin: 04/09/22 06:25 Dose: 2 puff Atorvastatin Calcium (Atorvastatin Calcium 40 Mg Tablet) 40 mg PO BEDTIME ADRIEN Last Admin: 04/09/22 20:02 Dose: 40 mg Clonazepam (Clonazepam 1 Mg Tablet) 1 mg PO BID PRN PRN Reason: anxiety Last Admin: 04/10/22 12:55 Dose: 1 mg Clonidine HCl (Clonidine Hcl 0.1 Mg Tablet) 0.1 mg PO BID PRN; Protocol PRN Reason: hyperarousal Last Admin: 04/10/22 12:54 Dose: 0.1 mg Fluticasone Propionate (Fluticasone Propionate 250 Mcg Blst.W.Dev) 2 puff INHALE RBID ADRIEN Last Admin: 04/10/22 08:09 Dose: 2 puff Ketorolac Tromethamine (Ketorolac Tromethamine 30 Mg/Ml Vial) 30 mg IM Q6H PRN PRN Reason: pain due to kidney stones Stop: 04/12/22 23:59 Last Admin: 04/10/22 11:07 Dose: 30 mg Lidocaine (Lidocaine 4 % Patch Adh..Patch) 1 patch TRANSDERMA DAILY PRN; Protocol PRN Reason: mild pain Last Admin: 04/10/22 09:11 Dose: 1 patch Magnesium Hydroxide (Milk Of Magnesia 30 Ml Oral.Susp) 30 ml PO DAILY PRN PRN Reason: Constipation Last Admin: 04/06/22 08:19 Dose: 30 ml Mirtazapine (Mirtazapine 30 Mg Tablet) 30 mg PO BEDTIME ADRIEN Last Admin: 04/09/22 20:02 Dose: 30 mg Naloxone HCl (Naloxone Hcl Nasal Take Home 4 Mg [place]) 4 mg NOSTRILALT ONCE ONE Stop: 04/10/22 13:02 Nicotine (Nicotine 21 Mg Patch.Td24) 21 mg TRANSDERMA DAILY [facility] Last Admin: 04/10/22 06:26 Dose: 21 mg Nystatin (Nystatin Cream 15 Gm Tube) 1 appl TOPICAL BID ADRIEN Last Admin: 04/10/22 08:13 Dose: 1 appl Nystatin (Nystatin Powder 15 Gm Bottle) 1 appl TOPICAL BID PRN PRN Reason: itching with water Last Admin: 04/10/22 08:10 Dose: 1 appl Omeprazole (Omeprazole 20 Mg Capsule.Dr) 20 mg PO DAILY [facility] Last Admin: 04/10/22 08:09 Dose: 20 mg Paroxetine HCl (Paroxetine Hcl 30 Mg Tablet) 30 mg PO BEDTIME ADRIEN Last Admin: 04/09/22 20:02 Dose: 30 mg Polyethylene Glycol (Polyethylene Glycol 3350 17 Gm Powd.Pack) 17 gm PO DAILY ADRIEN Last Admin: 04/10/22 08:14 Dose: 17 gm Quetiapine Fumarate (Quetiapine Fumarate 300 Mg Tablet) 300 mg PO BEDTIME ADRIEN Last Admin: 04/09/22 20:02 Dose: 300 mg Quetiapine Fumarate (Quetiapine Fumarate 50 Mg Tablet) 50 mg PO QID PRN PRN Reason: anxiety Last Admin: 04/10/22 11:11 Dose: 50 mg Tamsulosin HCl (Tamsulosin Hcl 0.4 Mg Capsule) 0.4 mg PO DAILY [facility] Last Admin: 04/10/22 08:09 Dose: 0.4 mg Tiotropium [place] (Tiotropium [place] 18 Mcg Cap.W.Dev) 1 puff INHALE DAILY [facility] Last Admin: 04/10/22 09:03 Dose: 1 puff Trazodone HCl (Trazodone Hcl 50 Mg Tablet) 50 mg PO BEDTIME PRN PRN Reason: Restlessness Last Admin: 04/09/22 01:09 Dose: 50 mg Verapamil HCl (Verapamil Hcl Sr 100 Mg Cap24h.Pct) 100 mg PO BEDTIME ADRIEN; Protocol Last Admin: 04/09/22 20:02 Dose: 100 mg Allergies Allergies Allergy/AdvReac Type Severity Reaction Status Date / Time ibuprofen Allergy Intermediate Stomach Verified 04/04/22 13:52 Upset penicillin V Allergy Intermediate rash Verified 04/04/22 13:52 Assessment & Plan Assessment & Plan (1) MDD (major depressive disorder), recurrent episode: Status: Acute Code(s): F33.9 - Major depressive disorder, recurrent, unspecified (2) Cocaine use disorder: Status: Acute Code(s): F14.10 - Cocaine abuse, uncomplicated Plan Augustin is a 56 y.o. Male who carries a dx of MDD recurrent and cocaine use disorder. Pt presented to [facility] on 04/04/2022 due to depression, SI, relapse on cocaine. Precipitating factors include that he interpersonal issues with his , financial stress. Plan: Will discontinue PRN clonidine due to reported lack of efficacy. Will increase PRN seroquel to 50 mg QID PRN, will discontinue seroquel 100 mg as pt appears to benefit from it more as a PRN than a scheduled med in the morning. He will continue on seroquel 300 mg at bedtime, as he says this helps with sleep. Will move paxil to bedtime to further help with sleep. Consider increasing dose. Will increase klonopin to 1 mg BID PRN for anxiety. Says his L sided pain started at 5am this morning. I consulted with hospitalist, will order abdominal/ pelvic CT to r/o nephrolithiasis, as pt is now identifying pain is in his flank and he has hx of kidney stones. Will add motrin PRN for pain and place consult for urologist if confirmed nephrolithiasis. Pt also complaining of pruritic and painful rash on lower abdomen, per hospitalist this is fungal, will order nystatin. 04/07: Will increase paxil to 30 mg HS for depression, anxiety, re-start clonidine 0.1 mg daily PRN for anxiety 04/08: start trial of ketorolac x 5 days, may use 30 mg Q6H PRN, max dose 120 mg/ day. increase clonidine to 0.1 mg BID PRN for anxiety, hyperarousal. 04/09 mood is better. Kidney stone pain treated with Ketorolac 04/10 Patient remains in good mood despite being frustrated by a peer. He denies any SI or HI or AVH and says he has been sleeping better. Patient asked for discharge because he was accused of Being excessively flirtatious by A female peer something he flatly denies (of note, this behavior was not observed by staff but reported by peer; also staff in a patient well say that over his numerous past admissions he has never had inappropriate behaviors). Patient and team were planning for him to discharge on Monday anyway and he says he rather just go today. It is understood the patient remains vulnerable to both relapse and/or emotional dysregulation; however this is a chronic struggle for patient, of which he is well aware and will not resolve with further stay on an inpatient unit. Patient is not in imminent risk for harm to self or others and his request for discharge granted. Q15 min safety checks, CV Monitor response to medications. Monitor for safety in the milieu. Discharge on stabilization. Patient seen. Chart reviewed. Discussed with team. Obtain collateral contact info as needed I spent minutes with the patient and/or on the patient floor today, greater than?50% of which was spent counseling/coordinating care. Patient educated on: diagnosis and medication risk/benefits Informed Consent: understands Reason for contiued inpatient stay Substantial Risk for: stable for discharge
--- NOTE | 2022-04-10 22:34 | PM.PSYDC ---
DS: Providers Provider Date of Service: 04/10/22 Date of admission: 04/05/22 12:21 Date of discharge: 04/10/22 Primary care physician: Unknown Physician Admitting clinician: Bette Pitt Attending physician on admission: Ivan Butt Consults: 04/06/22 19:32 Consult to Urology Stat Consulting Provider: Gerry Gil Reason for consultation: nephrolithiasis Attending physician on discharge: Ivan Butt Discharging clinician: Bette Pitt DS: Diagnosis Discharge Diagnosis (1) MDD (major depressive disorder), recurrent episode: Status: Acute (2) Cocaine use disorder: Status: Acute DS: Medications Discharge Medications Home Medications: Home Medications Medication Instructions Recorded Confirmed pantoprazole 40 mg tablet,delayed 1 tab PO QAM 04/04/22 04/04/22 release Previous Rx's Medication Instructions Recorded albuterol sulfate 90 mcg/actuation 2 puff inhalation RQ4H PRN 04/10/22 aerosol inhaler (Ventolin HFA) Shortness Of Breath 30 days #6.7 grams atorvastatin 40 mg tablet 40 mg PO BEDTIME 30 days #30 tabs 04/10/22 clonazepam 1 mg tablet 1 mg PO DAILY PRN anxiety 15 days 04/10/22 #15 tabs fluticasone propionate 220 2 puff inhalation BID 30 days #12 04/10/22 mcg/actuation HFA aerosol inhaler grams (Flovent HFA) mirtazapine 30 mg tablet 30 mg PO BEDTIME 30 days #30 tabs 04/10/22 nicotine 21 mg/24 hr daily 21 mg transdermal DAILY PRN 04/10/22 transdermal patch nicotine cravings 28 days #28 ea nystatin 100,000 unit/gram topical 1 appl topical BID 14 days #15 04/10/22 cream grams paroxetine HCl 30 mg tablet 30 mg PO BEDTIME 30 days #30 tabs 04/10/22 polyethylene glycol 3350 17 gram 17 g PO DAILY 30 days #30 ea 04/10/22 oral powder packet quetiapine 300 mg tablet 300 mg PO BEDTIME 30 days #30 tabs 04/10/22 quetiapine 50 mg tablet 50 mg PO QID PRN anxiety 30 days 04/10/22 #60 tabs tamsulosin 0.4 mg capsule 0.4 mg PO DAILY 30 days #30 caps 04/10/22 tiotropium bromide 18 mcg capsule 18 mcg inhalation DAILY 30 days 04/10/22 with inhalation device (Spiriva #30 inhalations with HandiHaler) trazodone 50 mg tablet 50 mg PO BEDTIME PRN insomnia 30 04/10/22 days #30 tabs verapamil 100 mg capsule 24hr 100 mg PO BEDTIME 30 days #30 caps 04/10/[address],ext.release Mental Status Exam Mental Status Exam Narrative: A&O. In hospital attire, okay hygiene, not malodorous. Good eye contact, attentive. No Tics or Tremors. No abnormal involuntary movements. Calm, guarded. Non-pressured speech, spontaneous with regular rate and rhythm, normal volume and prosody. No prolonged speech latency or dysarthria. Mood is better,? affect is appropriate, calm. Denies SI/SIB/HI upon inquiry. Denies A/VH or delusional thought content. Thoughts are coherent, organized. No known cognitive or memory impairment. Insight/ Judgment fair and adequate. Data Imaging Diagnostic Imaging Impressions Chest X-Ray 04/04/22 14:25 IMPRESSION: No acute cardiopulmonary process. Abdomen/Pelvis CT 04/06/22 18:29 IMPRESSION: Bilateral nonobstructing nephrolithiasis. Stone burden has increased since the 06/17/2021 study Fleischner guidelines were followed. DS: Summary Hospital Course Hospital Course: Augustin is a 56 y.o. Male who carries a dx of MDD recurrent and cocaine use disorder. Pt presented to [facility] on 04/04/2022 due to depression, SI, relapse on cocaine. Precipitating factors include that he interpersonal issues with his , financial stress. Plan: Will discontinue PRN clonidine due to reported lack of efficacy. Will increase PRN seroquel to 50 mg QID PRN, will discontinue seroquel 100 mg as pt appears to benefit from it more as a PRN than a scheduled med in the morning. He will continue on seroquel 300 mg at bedtime, as he says this helps with sleep. Will move paxil to bedtime to further help with sleep. Consider increasing dose. Will increase klonopin to 1 mg BID PRN for anxiety. Says his L sided pain started at 5am this morning. I consulted with hospitalist, will order abdominal/ pelvic CT to r/o nephrolithiasis, as pt is now identifying pain is in his flank and he has hx of kidney stones. Will add motrin PRN for pain and place consult for urologist if confirmed nephrolithiasis. Pt also complaining of pruritic and painful rash on lower abdomen, per hospitalist this is fungal, will order nystatin. 04/07: Will increase paxil to 30 mg HS for depression, anxiety, re-start clonidine 0.1 mg daily PRN for anxiety 04/08: start trial of ketorolac x 5 days, may use 30 mg Q6H PRN, max dose 120 mg/ day. increase clonidine to 0.1 mg BID PRN for anxiety, hyperarousal. 04/09 mood is better. Kidney stone pain treated with Ketorolac 04/10 Patient remains in good mood despite being frustrated by a peer.? He denies any SI or HI or AVH and says he has been sleeping better.? Patient asked for discharge because he was accused of Being excessively flirtatious by A female peer something he flatly denies (of note, this behavior was not observed by staff but reported by peer; also staff in a patient well say that over his numerous past admissions he has never had inappropriate behaviors). Patient and team were planning for him to discharge on Monday anyway and he says he rather just go today. It is understood the patient remains vulnerable to both relapse and/or emotional dysregulation; however this is a chronic struggle for patient, of which he is well aware and will not resolve with further stay on an inpatient unit. Patient is not in imminent risk for harm to self or others and his request for discharge granted.? 04/11: Pt advocating for discharge, no imminent safety concerns, med adherent Time Spent with Patient Time attestation: Total time spent providing and/or coordinating discharge services: Discharge Plan Discharge Patient Disposition: Home, Self-Care Discharge Diagnosis: Mdd, recurrent, severe, in full remission Referrals: Gerry Gil MD [Physician] - 1 Week (PLEASE CALL DR GIL FOR APPOINTMENT) [facility] [Primary Care Provider] - 1 Week Discharge Medications: New nicotine 21 mg/24 hr Patch 24 Hour 21 mg transdermal DAILY PRN (Reason: nicotine cravings) 28 Days Qty: 28 0RF Spiriva with HandiHaler 18 mcg Capsule, W/Inhalation Device 18 mcg inhalation DAILY 30 Days Qty: 30 0RF albuterol sulfate [Ventolin HFA] 90 mcg/actuation Hfa Aerosol Inhaler 2 puff inhalation RQ4H PRN (Reason: Shortness Of Breath) 30 Days Qty: 6.7 0RF tamsulosin 0.4 mg Capsule 0.4 mg PO DAILY 30 Days Qty: 30 0RF atorvastatin 40 mg Tablet 40 mg PO BEDTIME 30 Days Qty: 30 0RF verapamil 100 mg capsule, [address] 100 mg PO BEDTIME 30 Days Qty: 30 0RF mirtazapine 30 mg Tablet 30 mg PO BEDTIME 30 Days Qty: 30 0RF paroxetine HCl 30 mg Tablet 30 mg PO BEDTIME 30 Days Qty: 30 0RF quetiapine 300 mg Tablet 300 mg PO BEDTIME 30 Days Qty: 30 0RF quetiapine 50 mg Tablet 50 mg PO QID PRN (Reason: anxiety) 30 Days Qty: 60 0RF trazodone 50 mg Tablet 50 mg PO BEDTIME PRN (Reason: insomnia) 30 Days Qty: 30 0RF polyethylene glycol 3350 17 gram Powder In Packet 17 g PO DAILY 30 Days Qty: 30 0RF nystatin 100,000 unit/gram Cream 1 appl topical BID 14 Days Qty: 15 0RF Continued pantoprazole 40 mg tablet,delayed release (DR/EC) 1 tab PO QAM fluticasone propionate [Flovent HFA] 220 mcg/actuation HFA aerosol inhaler 2 puff inhalation BID 30 Days Qty: 12 0RF Changed clonazepam 1 mg tablet 1 mg PO DAILY PRN (Reason: anxiety) 15 Days Qty: 15 1RF Discontinued nicotine 21 mg/24 hr Patch 24 Hour 21 mg transdermal DAILY 28 Days Qty: 28 0RF Rx Instructions: remove at bedtime atorvastatin 40 mg tablet 1 tab PO BEDTIME quetiapine 300 mg tablet 1 tab PO BEDTIME quetiapine 100 mg tablet 1 tab PO QAM paroxetine HCl 20 mg tablet 1 tab PO QAM mirtazapine 30 mg tablet 1 tab PO BEDTIME verapamil 100 mg capsule, [address] 1 cap PO BEDTIME Spiriva with HandiHaler 18 mcg capsule, w/inhalation device 1 cap inhalation DAILY Discharge Orders: Discharge Order (Routine); Ordered 04/10/22 Ordered By: Jian Chisholm Diet: Regular diet Activity on Discharge: As tolerated Stand Alone Forms: Patient Portal Discharge page, Community Support Care Plan Goals: Maintain mood and safe behaviors Take medications as prescribed Continue to pursue sobriety Practice coping skills Continue with outpatient providers and reach out to them as needed Health Concerns: Mood stability and behaviors Sobriety Kidney Stones Plan of Treatment: Follow up with your PCP, psychiatric provider and other outpatient providers regarding above concerns Take medications as prescribed Folllow up with Kidney Doctor: Dr. Mckenzie Assessment: Risk assessment at time of discharge:? Patient was interviewed prior to discharge and found to be fully oriented and without any SI or HI. Patient has insight and demonstrates good judgment in terms of wanting to pursue treatment. Patient is not in imminent risk of harm to self or others and has a safety plan that includes presenting to the closest ER or calling 911 if feeling unsafe.? Patient has been observed closely by nursing and unit staff throughout admission; patient has not engaged in any behaviors that suggest dangerousness to self or others and has demonstrated appropriate behaviors and impulse control Discharge Date/Time: 04/10/22 14:11
== END 2022-04-10 14:11 | disposition home or self-care (01) | DRG 751 ==
LOC: HO.ED 20:59 → HO.PM5 04-05 12:32
PROVIDERS: Admitting Provider Psychiatry & Neurology Psychiatry; Emergency Provider Emergency Medicine; Visit Provider Psychiatry & Neurology Psychiatry
DX: F33.9 Major depressive disorder, recurrent, unspecified (principal); R45.851 Suicidal ideations; F12.20 Cannabis dependence, uncomplicated; J43.9 Emphysema, unspecified; F14.10 Cocaine abuse, uncomplicated; J45.909 Unspecified asthma, uncomplicated; F17.210 Nicotine dependence, cigarettes, uncomplicated; Z20.822 Contact with and (suspected) exposure to COVID-19; Z71.6 Tobacco abuse counseling; Z88.0 Allergy status to penicillin; Z88.6 Allergy status to analgesic agent; Z79.51 Long term (current) use of inhaled steroids; Z79.899 Other long term (current) drug therapy
CPT/HCPCS: 36415; 71045; 74176; 80048; 80053; 80076; 80143; 80179; 80307; 81001; 82077; 83690; 83880; 84484; 85025; 87635; 90792; 93005; 99285; J1885

== ENCOUNTER 2022-04-17 19:31 | Emergency (ER) | payer MEDICAID, SELFPAY ==
--- NOTE | ~2022-04-17 | XR_ITS ---
EXAMINATION: XR CHEST CLINICAL INFORMATION: Chest pain. COMPARISON: Chest radiograph 04/04/2022. TECHNIQUE: Frontal view of the chest was obtained. FINDINGS: Normal appearance of the cardiomediastinal structures. No effusions or pneumothoraces. Normal pattern of pulmonary vasculature. No focal pulmonary consolidation. Chronic posttraumatic appearing deformity of the right clavicle. XR/XR chest 1V IMPRESSION: *No acute cardiopulmonary abnormalities.
[2022-04-17 19:33] VITALS: BP 125/75; PULSE 98; RESP 20; TEMP 37.1; O2SAT 93; BMI 24.0
--- NOTE | 2022-04-17 20:57 | ED_ITS ---
HPI - General Adult General Chief complaint: Psychiatric Symptoms Stated complaint: chest pain, suicidal thoughts Time Seen by Provider: 04/17/22 19:32 Source: patient and diplomatic interpreter Mode of arrival: ambulatory Limitations: language barrier History of Present Illness HPI narrative: Patient is a 56 year old male presenting to the emergency department today with back pain and suicidal ideation. Patient states that he is having upper back pain that radiates into the front but his main issue is that he wants to kill himself. Patient states that he would like to be admitted to . Patient denies any dizziness, lightheadedness, abdominal pain, nausea, vomiting, fever, chills, blurry vision, double vision, loss of vision, difficulty breathing, shortness of breath, night sweats, pain with urination, increased urinary frequency, increased urinary urgency, blood in his urine or stool, syncope or a near syncopal episode, recent trauma or falls, bowel incontinence, bladder incontinence, bowel retention, bladder retention, or any other complaints at this time. Onset (ago): hour(s) Severity: mild Severity scale (1-10): 2 Quality: aching and dull Relieving factors: none Exacerbating factors: none Associated symptoms: denies other symptoms Treatments prior to arrival: none Related Data Home Medications Medication Instructions Recorded Confirmed pantoprazole 40 mg tablet,delayed 1 tab PO QAM 04/04/22 04/17/22 release Previous Rx's Medication Instructions Recorded albuterol sulfate 90 mcg/actuation 2 puff inhalation RQ4H PRN 04/10/22 aerosol inhaler (Ventolin HFA) Shortness Of Breath 30 days #6.7 grams atorvastatin 40 mg tablet 40 mg PO BEDTIME 30 days #30 tabs 04/10/22 clonazepam 1 mg tablet 1 mg PO DAILY PRN anxiety 15 days 04/10/22 #15 tabs fluticasone propionate 220 2 puff inhalation BID 30 days #12 04/10/22 mcg/actuation HFA aerosol inhaler grams (Flovent HFA) mirtazapine 30 mg tablet 30 mg PO BEDTIME 30 days #30 tabs 04/10/22 nicotine 21 mg/24 hr daily 21 mg transdermal DAILY PRN 04/10/22 transdermal patch nicotine cravings 28 days #28 ea nystatin 100,000 unit/gram topical 1 appl topical BID 14 days #15 04/10/22 cream grams paroxetine HCl 30 mg tablet 30 mg PO BEDTIME 30 days #30 tabs 04/10/22 polyethylene glycol 3350 17 gram 17 g PO DAILY 30 days #30 ea 04/10/22 oral powder packet quetiapine 300 mg tablet 300 mg PO BEDTIME 30 days #30 tabs 04/10/22 quetiapine 50 mg tablet 50 mg PO QID PRN anxiety 30 days 04/10/22 #60 tabs tamsulosin 0.4 mg capsule 0.4 mg PO DAILY 30 days #30 caps 04/10/22 tiotropium bromide 18 mcg capsule 18 mcg inhalation DAILY 30 days 04/10/22 with inhalation device (Spiriva #30 inhalations with HandiHaler) trazodone 50 mg tablet 50 mg PO BEDTIME PRN insomnia 30 04/10/22 days #30 tabs verapamil 100 mg capsule 24hr 100 mg PO BEDTIME 30 days #30 caps 04/10/[address],ext[address]release Allergies Allergy/AdvReac Type Severity Reaction Status Date / Time ibuprofen Allergy Intermediate Stomach Verified 04/04/22 13:52 Upset penicillin V Allergy Intermediate rash Verified 04/04/22 13:52 Review of Systems Constitutional: Constitutional: Reports no additional constitutional complaints, Denies chills, Denies fever(s) and Denies night sweats Eyes: Eyes: Reports no additional eye complaints, Denies blurry vision, Denies change in vision, Denies diplopia, Denies eye discharge, Denies loss of vision and Denies eye pain ENT: Denies dizziness Cardiovascular: Cardiovascular: Reports no additional cardiovascular complaints, Denies chest pain, Denies lightheadedness, Denies Loss of Consciousness and Denies dyspnea Respiratory: Respiratory: Reports no additional respiratory complaints and Denies dyspnea Gastrointestinal: Gastrointestinal: Reports no additional gastrointestinal complaints, Denies abdominal pain, Denies melena, Denies hematochezia, Denies change in bowel habits and Denies change in stool character Genitourinary: Genitourinary: Reports no additional male genitourinary complaints, Denies hematuria, Denies oliguria, Denies difficulty urinating, Denies dysuria, Denies urinary frequency, Denies urinary hesitancy, Denies urinary incontinence and Denies urinary urgency Musculoskeletal: Musculoskeletal: Reports no additional musculoskeletal complaints, Reports back pain, Denies numbness and Denies tingling Neurologic: Denies dizziness, Denies loss of vision, Denies numbness and Denies tingling Psychiatric: Psychiatric: Reports no additional psychiatric complaints and Reports suicidal ideation Endocrine: Endocrine: Reports no additional endocrine complaints Hematologic/Lymphatic: Hematologic/Lymphatic: Reports no additional hematologic/lymphatic complaints Allergic/Immunologic: Allergic/Immunologic: Reports no additional allergic/immunologic complaints [facility] Past Medical History Attestation statement: The following information was validated with the patient. Source: old records reviewed Medical History Anxiety Asthma Cannabis use disorder, moderate, dependence Cocaine use disorder Depression Emphysema of lung Nicotine dependence Opioid use disorder Pulmonary nodules Surgical History Hx of cholecystectomy Social History Social History Household Members: None Housing: Apartment Do you presently have visiting nurse or other home services: Yes Unable to assess alcohol history related to: Unknown Alcohol intake: unknown Patient Tobacco Use Status: Tobacco use Unknown Tobacco use type: Cigarette Cigarettes Per Day: 4 e-Cigarette/Vaping Use: Never Used Second Hand Smoke Exposure: No Use of substances other than those prescribed or required for medical reasons: Yes Substance Use Type: Crack/Cocaine and Marijuana Advance Directives: No Advance Directives Information Provided: Yes service: No Sexual orientation: Straight/Heterosexual Physical Exam ED Vital Signs: Vital Signs - 24 hr 04/17/22 19:33 04/17/22 22:00 04/17/22 23:15 Temperature 98.7 F 98 F 98.4 F Pulse Rate 98 90 88 Respiratory Rate 20 18 16 Blood Pressure 125/75 118/72 126/78 Pulse Oximetry 93 97 95 Oxygen Delivery Method Room Air Room Air Room Air BMI result Body Mass Index 24.0 Const General: cooperative, no acute distress, alert and awake Nutritional Appearance: well nourished Orientation/consciousness: patient oriented x3 Limitations: no limitations HENMT Head: Yes normal to inspection and Yes atraumatic Ears: hearing grossly normal bilaterally and external ears normal General nose exam: Normal external nose present, no nasal discharge noted and no epistaxis Face and sinus: Yes normal facial exam, No abrasion and No laceration Mouth: Normal oral and palatal mucosa present, no drooling and no muffled voice Eyes General: appearance normal, both eyes and all related structures Periorbital: periorbital findings normal Eyelids: Yes eyelids normal Conjunctivae: conjunctivae normal Pupils: Equal, round and reactive pupils present EOM: EOMs intact bilaterally Neck Neck: Yes normal visual inspection, Yes full ROM and Yes no lymphadenopathy Chest Chest palpation & inspection: normal inspection of the chest Resp Effort & Inspection: normal respiratory effort and able to speak in complete sentences Auscultation: clear to auscultation bilaterally Cardio Rate: regular rate Rhythm: regular rhythm GI Inspection: Yes normal to inspection Palpation (GI): Soft to palpation, not firm, nontender, no guarding and not rigid General: Yes no CVA tenderness Back/Spine/Pelvis Back: no CVA tenderness Cervical Spine: normal cervical lordosis and cervical ROM normal Thoracic/Lumbar Spine: thoracic and lumbar spine normal to inspection and thoraco-lumbar ROM normal Neuro General: patient oriented x3 and moves all extremities Cranial nerves: Yes Equal, round and reactive pupils present Cognition (Neuro): normal cognition Motor exam (neuro): 5/5 motor strength present throughout Sensory Exam: Normal double simultaneous stimulation for sensation Coordination: [id number] test normal Extrem General: Yes normal to inspection, Yes full ROM and Yes capillary refill normal Psych Appearance: grossly normal Mental Status: mental status grossly normal Affect: normal affect Attitude: cooperative Thought process: Normal thought process present Thought content: Normal thought content present Insight: Good insight present (Psych) Medical Decision Making MDM Narrative Medical decision making narrative: Patient is a 56 year old male presenting to the emergency department today with upper back pain and suicidal ideation. Patient's physical exam was unremarkable. Patient's blood work was unremarkable. Patient's drug screen was positive for PCP, cocaine, and THC. Patient's EKG was unremarkable. Patient's chest x-ray showed no acute process. I explained my physical exam findings as well as all test results to the patient. I answered all questions asked by the patient. Patient is currently awaiting [facility] evaluation. Medical Records Medical records reviewed: Yes I reviewed the patient's medical records. Lab Data Lab results reviewed: Yes I reviewed the patient's lab results. Result diagrams: 04/17/22 21:18 04/17/22 21:18 Labs: Lab Results 04/17/22 04/17/22 04/17/22 Range/Units 21:18 21:18 21:18 WBC 6.0 (4.8-10.8) X10*3/uL RBC 4.10 L (4.60-5.80) X10*6/uL Hgb 12.3 L (14.0-18.0) g/dl Hct 36.1 L (42.0-52.0) % MCV 88.0 (80.0-98.0) fL MCH 30.0 (27.0-33.0) pg MCHC 34.1 (31.0-36.0) g/dl RDW 14.9 (11.0-16.0) % Plt Count 383 (160-400) X10*3/uL MPV 8.9 L (9.4-12.4) fL Immature Gran % (Auto) 0.3 (0.0-0.4) % Neut % (Auto) 47.6 (45-73) % Lymph % (Auto) 32.5 (20-40) % [place] % (Auto) 8.7 (2-11) % Eos % (Auto) 10.2 H (0-4) % Baso % (Auto) 0.7 (0-2) % Lymph # (Auto) 1.9 (1.2-4.9) X10*3/uL [place] # (Auto) 0.5 (0.1-1.2) X10*3/uL Eos # (Auto) 0.6 H (0.0-0.4) X10*3/uL Baso # (Auto) 0.0 (0.0-0.2) X10*3/uL Abs Immat Gran (auto) 0.02 (0.00-0.03) X10*3/uL Absolute Neuts (auto) 2.8 (2.0-8.3) x10*3/uL Absolute Nucleated RBC 0.000 (0.0-0.012) X10*3/uL Nucleated RBC % (auto) 0.0 (0.0-0.2) /100WBC Sodium 141 (135-145) mmol/L Potassium 3.4 D (3.3-5.1) mmol/L Chloride 104 (96-108) mmol/L Carbon Dioxide 25 (22-29) mmol/L Anion Gap 15 (12-20) BUN 11 (9-16) mg/dL Creatinine 0.90 (0.5-1.4) mg/dL Estim Creat Clear Calc 74.9 Estimated GFR > 60 Random Glucose 84 (60-115) mg/dL Calcium 9.0 (8.4-10.2) mg/dL Total Bilirubin 0.3 (0.0-1.0) mg/dL AST 17 (5-37) U/L ALT 13 (0-40) U/L Alkaline Phosphatase 115 (39-117) U/L Troponin I High Sens < 3.5 (<3.5-35.0) ng/L Total Protein 6.4 L (6.5-8.0) g/dL Albumin 3.7 (3.5-5.0) g/dL Salicylates < 5.0 L (15-30) mg/dL Urine Opiates Screen (Not Detect) Urine Fentanyl Screen (Not Detect) Acetaminophen < 1 (<30) mcg/mL Ur Barbiturates Screen (Not Detect) Ur Phencyclidine Scrn (Not Detect) Ur Amphetamines Screen (Not Detect) U Benzodiazepines Scrn (Not Detect) Urine Cocaine Screen (Not Detect) U Marijuana (THC) Screen (Not Detect) Ethyl Alcohol < 10 mg/dL COVID-19 ([facility]) (Negative) COVID-19 Clin Com 04/17/22 04/17/22 Range/Units 21:18 22:25 WBC (4.8-10.8) X10*3/uL RBC (4.60-5.80) X10*6/uL Hgb (14.0-18.0) g/dl Hct (42.0-52.0) % MCV (80.0-98.0) fL MCH (27.0-33.0) pg MCHC (31.0-36.0) g/dl RDW (11.0-16.0) % Plt Count (160-400) X10*3/uL MPV (9.4-12.4) fL Immature Gran % (Auto) (0.0-0.4) % Neut % (Auto) (45-73) % Lymph % (Auto) (20-40) % [place] % (Auto) (2-11) % Eos % (Auto) (0-4) % Baso % (Auto) (0-2) % Lymph # (Auto) (1.2-4.9) X10*3/uL [place] # (Auto) (0.1-1.2) X10*3/uL Eos # (Auto) (0.0-0.4) X10*3/uL Baso # (Auto) (0.0-0.2) X10*3/uL Abs Immat Gran (auto) (0.00-0.03) X10*3/uL Absolute Neuts (auto) (2.0-8.3) x10*3/uL Absolute Nucleated RBC (0.0-0.012) X10*3/uL Nucleated RBC % (auto) (0.0-0.2) /100WBC Sodium (135-145) mmol/L Potassium (3.3-5.1) mmol/L Chloride (96-108) mmol/L Carbon Dioxide (22-29) mmol/L Anion Gap (12-20) BUN (9-16) mg/dL Creatinine (0.5-1.4) mg/dL Estim Creat Clear Calc Estimated GFR Random Glucose (60-115) mg/dL Calcium (8.4-10.2) mg/dL Total Bilirubin (0.0-1.0) mg/dL AST (5-37) U/L ALT (0-40) U/L Alkaline Phosphatase (39-117) U/L Troponin I High Sens (<3.5-35.0) ng/L Total Protein (6.5-8.0) g/dL Albumin (3.5-5.0) g/dL Salicylates (15-30) mg/dL Urine Opiates Screen Not Detected (Not Detect) Urine Fentanyl Screen Not Detected (Not Detect) Acetaminophen (<30) mcg/mL Ur Barbiturates Screen Not Detected (Not Detect) Ur Phencyclidine Scrn POSITIVE H (Not Detect) Ur Amphetamines Screen Not Detected (Not Detect) U Benzodiazepines Scrn Not Detected (Not Detect) Urine Cocaine Screen POSITIVE H (Not Detect) U Marijuana (THC) Screen POSITIVE H (Not Detect) Ethyl Alcohol mg/dL COVID-19 ([facility]) Negative (Negative) COVID-19 Clin Com See Note Imaging Data Chest x-ray: Attestation: I personally reviewed and interpreted this imaging study as follows: My impression: No acute process. Radiologist's impression: EXAMINATION: XR CHEST CLINICAL INFORMATION: Chest pain. COMPARISON: Chest radiograph 04/04/2022. TECHNIQUE: Frontal view of the chest was obtained. FINDINGS: Normal appearance of the cardiomediastinal structures. No effusions or pneumothoraces. Normal pattern of pulmonary vasculature. No focal pulmonary consolidation. Chronic posttraumatic appearing deformity of the right clavicle. XR/XR chest 1V IMPRESSION: *No acute cardiopulmonary abnormalities. ? Dictated By: Tk Bradley MD Signed By: Electronically signed by Tk Bradley MD 04/17/222131 ECG Data Attestation: I personally reviewed and interpreted this ECG as follows: Prior ECG tracings: available for review Interpretation: Vent. Rate: 072 BPM ? ? Atrial Rate: 072 BPM P-R Int: 162 ms? QRS Dur: 102 ms QT Int: 412 ms ? ? ? P-R-T Axes: 078 047 074 degrees QTc Int: 451 ms ? Normal sinus rhythm Incomplete right bundle branch block Borderline ECG When compared with ECG of 04-APR-2022 14:12, No significant change was found DD/ 07 Discharge Plan Discharge Clinical Impression: MDD (major depressive disorder), recurrent episode Patient Disposition: Still a Patient Prescriptions: No Action pantoprazole 40 mg tablet,delayed release (DR/EC) 1 tab PO QAM nicotine 21 mg/24 hr Patch 24 Hour 21 mg transdermal DAILY PRN (Reason: nicotine cravings) 28 Days Qty: 28 0RF Spiriva with HandiHaler 18 mcg Capsule, W/Inhalation Device 18 mcg inhalation DAILY 30 Days Qty: 30 0RF albuterol sulfate [Ventolin HFA] 90 mcg/actuation Hfa Aerosol Inhaler 2 puff inhalation RQ4H PRN (Reason: Shortness Of Breath) 30 Days Qty: 6.7 0RF tamsulosin 0.4 mg Capsule 0.4 mg PO DAILY 30 Days Qty: 30 0RF atorvastatin 40 mg Tablet 40 mg PO BEDTIME 30 Days Qty: 30 0RF verapamil 100 mg capsule, [address] 100 mg PO BEDTIME 30 Days Qty: 30 0RF mirtazapine 30 mg Tablet 30 mg PO BEDTIME 30 Days Qty: 30 0RF paroxetine HCl 30 mg Tablet 30 mg PO BEDTIME 30 Days Qty: 30 0RF quetiapine 300 mg Tablet 300 mg PO BEDTIME 30 Days Qty: 30 0RF quetiapine 50 mg Tablet 50 mg PO QID PRN (Reason: anxiety) 30 Days Qty: 60 0RF trazodone 50 mg Tablet 50 mg PO BEDTIME PRN (Reason: insomnia) 30 Days Qty: 30 0RF polyethylene glycol 3350 17 gram Powder In Packet 17 g PO DAILY 30 Days Qty: 30 0RF nystatin 100,000 unit/gram Cream 1 appl topical BID 14 Days Qty: 15 0RF clonazepam 1 mg tablet 1 mg PO DAILY PRN (Reason: anxiety) 15 Days Qty: 15 1RF fluticasone propionate [Flovent HFA] 220 mcg/actuation HFA aerosol inhaler 2 puff inhalation BID 30 Days Qty: 12 0RF
--- NOTE | 2022-04-17 21:16 | ECG_ITS ---
Test Reason : CHEST PAIN Blood Pressure : / mmHG Vent. Rate : 072 BPM Atrial Rate : 072 BPM P-R Int : 162 ms QRS Dur : 102 ms QT Int : 412 ms P-R-T Axes : 078 047 074 degrees QTc Int : 451 ms Normal sinus rhythm Incomplete right bundle branch block Borderline ECG When compared with ECG of 04-APR-2022 14:12, No significant change was found Referred By: Amna Isaacs Electronically Signed By:HERSON GARZON
[2022-04-17 21:24] LABS: MANUAL DIFF FLAG NO
[2022-04-17 21:27] LABS: Basophils Percent Auto 0.7 % (0-2); Eosinophils Absolute Auto 0.6 X10*3/uL (0.0-0.4); Eosinophils Percent Auto 10.2 % (0-4); Hematocrit 36.1 % (42.0-52.0); Hemoglobin 12.3 g/dl (14.0-18.0); Imm Gran Abs Auto 0.02 X10*3/uL (0.00-0.03); Imm Gran Pct Auto 0.3 % (0.0-0.4); Lymphocytes Absolute Auto 1.9 X10*3/uL (1.2-4.9); Lymphocytes Percent Auto 32.5 % (20-40); Mean Corpuscular HGB Conc 34.1 g/dl (31.0-36.0); Mean Platelet Volume 8.9 fL (9.4-12.4); Monocytes Absolute Auto 0.5 X10*3/uL (0.1-1.2); Monocytes Percent Auto 8.7 % (2-11); Neutrophils Absolute Auto 2.8 x10*3/uL (2.0-8.3); Neutrophils Percent Auto 47.6 % (45-73); Platelet Count 383 X10*3/uL (160-400); Red Cell Distribution Width 14.9 % (11.0-16.0)
[2022-04-17 21:41] LABS: Amphetamine Screen Urine Not Detected (Not Detect); Barbiturates, Urine Not Detected (Not Detect); Benzodiazepines Screen Urine Not Detected (Not Detect); Cannabinoid Screen Urine POSITIVE (Not Detect); Cocaine Screen Urine POSITIVE (Not Detect); Fentanyl, urine Not Detected (Not Detect); Opiate Screen Urine Not Detected (Not Detect); Phencyclidine Screen Urine POSITIVE (Not Detect)
[2022-04-17 21:43] LABS: Alanine Aminotransferase 13 U/L (0-40); Albumin Level 3.7 g/dL (3.5-5.0); Alkaline Phosphatase 115 U/L (39-117); Anion Gap 15 (12-20); Aspartate Amino Transferase 17 U/L (5-37); Bilirubin Total 0.3 mg/dL (0.0-1.0); Blood Urea Nitrogen 11 mg/dL (9-16); Carbon Dioxide 25 mmol/L (22-29); Chloride 104 mmol/L (96-108); Creatinine Clr Calc Pharmacy 74.9; Estimated Glomerular Filt Rate > 60; Ethanol < 10 mg/dL; Glucose Random 84 mg/dL (60-115); Potassium 3.4 mmol/L (3.3-5.1); Salicylate < 5.0 mg/dL (15-30); Sodium 141 mmol/L (135-145); Total Protein 6.4 g/dL (6.5-8.0)
[2022-04-17 21:45] LABS: Troponin-I High Sensitivity < 3.5 ng/L (<3.5-35.0)
[2022-04-17 22:00] VITALS: BP 118/72; PULSE 90; RESP 18; TEMP 36.6; O2SAT 97
[2022-04-17] MEDS: Cyclobenzaprine HCl 5 MG TABLET PO (22:35)
[2022-04-17] MEDS: Mirtazapine 30 MG TABLET PO (22:46)
[2022-04-17 22:50] LABS: COVID-19 Test Negative (Negative)
[2022-04-17] MEDS: Albuterol Sulfate 90 MCG 8 GM INHALER 2 PUFF INHALE (22:53)
[2022-04-17] MEDS: Atorvastatin Calcium 40 MG TABLET PO (22:53)
[2022-04-17] MEDS: traZODone HCL 50 MG TABLET PO (22:53)
[2022-04-17] MEDS: QUEtiapine Fumarate 300 MG TABLET PO (22:53)
[2022-04-17] MEDS: PARoxetine HCL 30 MG TABLET PO (22:56)
[2022-04-17] MEDS: clonazePAM 1 MG TABLET PO (23:03)
--- NOTE | 2022-04-17 23:03 | PC.NURSE ---
Patient was moved here from the main ED, C/O left side chest/abdominal pain , flexeril po given, C/O anxiety, clonazepam po given, Ventolin 2 puff for his breathing. staff will continue to monitor.
[2022-04-17 23:13] LABS: Acetaminophen LAB < 1 mcg/mL (<30)
[2022-04-17 23:15] VITALS: BP 126/78; PULSE 88; RESP 16; TEMP 36.9; O2SAT 95
[2022-04-18] MEDS: QUEtiapine Fumarate 50 MG TABLET PO (05:35)
[2022-04-18] MEDS: Omeprazole 20 MG CAPSULE.DR PO (05:36)
--- NOTE | 2022-04-18 05:37 | PC.NURSE ---
Patient awake C/O anxious, Seroquel PRN given with his 6:30 routine medication. Patient went back to his bed. Will continue to monitor.
--- NOTE | 2022-04-18 06:33 | PC.NURSE ---
Patient sleeping comfortably. No distress noted.Will continue to monitor.
[2022-04-18 07:50] VITALS: BP 115/72; PULSE 84; RESP 17; O2SAT 98
[2022-04-18] MEDS: Tamsulosin HCL 0.4 MG CAPSULE PO (08:50)
[2022-04-18] MEDS: polyethylene glycoL 3350 17 GM POWD.PACK PO (08:50)
[2022-04-18] MEDS: clonazePAM 1 MG TABLET PO (09:06)
[2022-04-18] MEDS: Nystatin Cream 15 GM TUBE 1 APPL TOPICAL (09:12)
[2022-04-18] MEDS: Fluticasone Propionate 250 MCG BLST.W.DEV 2 PUFF INHALE (09:12)
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
[2022-04-18] MEDS: LORazepam 1 MG TABLET 2 MG PO (13:19)
--- NOTE | 2022-04-18 14:00 | PC.NURSE ---
mainly has stayed in his room most of the morning, has used the phone mult times, klonopin given for reported anxiety this morning, ativan given at 1320 for anxiety, pt has been polite and pleasant, steady gait speech clear, skin wpd,
== END 2022-04-18 14:38 | disposition home or self-care (01) ==
PROVIDERS: Physician Assistant Medical; Emergency Provider Internal Medicine
DX: R07.89 Other chest pain (principal); F11.90 Opioid use, unspecified, uncomplicated; F14.980 Cocaine use, unspecified with cocaine-induced anxiety disorder; R45.851 Suicidal ideations; Z20.822 Contact with and (suspected) exposure to COVID-19; Z79.899 Other long term (current) drug therapy
CPT/HCPCS: 71045; 80053; 80143; 80179; 80307; 82077; 84484; 85025; 87635; 93005; 99284

== ENCOUNTER 2022-05-29 21:49 | Emergency (ER) | payer MEDICAID, SELFPAY ==
--- NOTE | ~2022-05-29 | XR_ITS ---
EXAMINATION: XR CHEST CLINICAL INFORMATION: Shortness of breath. COMPARISON: Most recent chest radiograph dated 04/17/2022. TECHNIQUE: Frontal view of the chest was obtained. FINDINGS: The lungs are clear. The cardiomediastinal silhouette is normal in size. There is no pleural effusion or pneumothorax. No acute osseous abnormality. XR/XR chest 1V IMPRESSION: No acute cardiopulmonary findings.
[2022-05-29 22:00] VITALS: BP 135/71; BP 139/90; PULSE 101; PULSE 99; RESP 18; TEMP 36.4; O2SAT 92; O2SAT 99; BMI 24.0
--- NOTE | 2022-05-29 22:07 | ECG_ITS ---
Test Reason : DYSPNEA Blood Pressure : / mmHG Vent. Rate : 095 BPM Atrial Rate : 095 BPM P-R Int : 148 ms QRS Dur : 098 ms QT Int : 366 ms P-R-T Axes : 074 026 081 degrees QTc Int : 459 ms Normal sinus rhythm Incomplete right bundle branch block Borderline ECG When compared with ECG of 17-APR-2022 22:08, No significant change was found Heart rate has increased Referred By: Felecia Rosado Electronically Signed By:JIE MCDANIELS MD
--- NOTE | 2022-05-29 22:09 | ED.SOB ---
HPI - SOB/Dyspnea General Chief Complaint: Dyspnea Stated Complaint: sob/copd Time Seen by Provider: 05/29/22 22:00 Source: patient Mode of arrival: EMS History of Present Illness HPI Narrative: 57-year-old male who is brought in by EMS with complaints several days of not feeling well, complaints of shortness of breath, feeling weak, headache but denies any nausea, vomiting, diarrhea. He also denies any abdominal pain and states that he last used cocaine 2 days ago. He denies any use of alcohol. Related Data Home Medications Medication Instructions Recorded Confirmed pantoprazole 40 mg tablet,delayed 1 tab PO QAM 04/04/22 04/17/22 release Previous Rx's Medication Instructions Recorded albuterol sulfate 90 mcg/actuation 2 puff inhalation RQ4H PRN 04/10/22 aerosol inhaler (Ventolin HFA) Shortness Of Breath 30 days #6.7 grams atorvastatin 40 mg tablet 40 mg PO BEDTIME 30 days #30 tabs 04/10/22 clonazepam 1 mg tablet 1 mg PO DAILY PRN anxiety 15 days 04/10/22 #15 tabs fluticasone propionate 220 2 puff inhalation BID 30 days #12 04/10/22 mcg/actuation HFA aerosol inhaler grams (Flovent HFA) mirtazapine 30 mg tablet 30 mg PO BEDTIME 30 days #30 tabs 04/10/22 nicotine 21 mg/24 hr daily 21 mg transdermal DAILY PRN 04/10/22 transdermal patch nicotine cravings 28 days #28 ea nystatin 100,000 unit/gram topical 1 appl topical BID 14 days #15 04/10/22 cream grams paroxetine HCl 30 mg tablet 30 mg PO BEDTIME 30 days #30 tabs 04/10/22 polyethylene glycol 3350 17 gram 17 g PO DAILY 30 days #30 ea 04/10/22 oral powder packet quetiapine 300 mg tablet 300 mg PO BEDTIME 30 days #30 tabs 04/10/22 quetiapine 50 mg tablet 50 mg PO QID PRN anxiety 30 days 04/10/22 #60 tabs tamsulosin 0.4 mg capsule 0.4 mg PO DAILY 30 days #30 caps 04/10/22 tiotropium bromide 18 mcg capsule 18 mcg inhalation DAILY 30 days 04/10/22 with inhalation device (Spiriva #30 inhalations with HandiHaler) trazodone 50 mg tablet 50 mg PO BEDTIME PRN insomnia 30 04/10/22 days #30 tabs verapamil 100 mg capsule 24hr 100 mg PO BEDTIME 30 days #30 caps 04/10/[address],ext[address]release prednisone 50 mg tablet 50 mg PO DAILY 4 days #4 tabs 05/30/22 Allergies Allergy/AdvReac Type Severity Reaction Status Date / Time ibuprofen Allergy Intermediate Stomach Verified 04/04/22 13:52 Upset penicillin V Allergy Intermediate rash Verified 04/04/22 13:52 Review of Systems Review of Systems: Pertinent positives and negatives as stated in HPI 10 point review of systems is otherwise negative. [facility] Past Medical History Source: nursing notes reviewed Medical History Anxiety Asthma Cannabis use disorder, moderate, dependence Cocaine use disorder Depression Emphysema of lung Nicotine dependence Opioid use disorder Pulmonary nodules Surgical History Hx of cholecystectomy Social History Social History Household Members: None Housing: Apartment Do you presently have visiting nurse or other home services: Yes Unable to assess alcohol history related to: Unknown Alcohol intake: unknown Patient Tobacco Use Status: Tobacco use Unknown Tobacco use type: Cigarette Cigarettes Per Day: 4 e-Cigarette/Vaping Use: Never Used Second Hand Smoke Exposure: No Substance Use Type: Crack/Cocaine and Marijuana Advance Directives: No Advance Directives Information Provided: Yes service: No Sexual orientation: Straight/Heterosexual Physical Exam Vital Signs: Vital Signs: Last Vital Signs Temp 97.4 F 05/29/22 23:58 Pulse 88 05/29/22 23:58 Resp 22 H 05/29/22 23:58 BP 117/61 05/29/22 23:58 Pulse Ox 95 05/29/22 23:58 O2 Del Method 05/29/22 23:58 BMI result Body Mass Index 24.0 VITAL SIGNS: Reviewed. GENERAL: Well developed, well nourished, in no acute distress. HEAD: Normocephalic/atraumatic EYES: PERRLA, EOMI EARS: Ext canals without abnormality OROPHARYNX: no oral lesions noted, posterior pharynx clear NECK: Supple, no adenopathy LUNGS: Normal breath sounds, no tachypnea/wheeze/rhonchi/rales. No adventitious sounds or accessory muscle use. SpO2<95> CARDIOVASCULAR: Regular rate and rhythm without noted murmurs, no JVD or lower extremity edema. ABDOMEN: Soft, non-tender, non-distended with bowel sounds. MUSCULOSKELETAL: No tenderness, deformities, or effusions noted on gross inspection. EXTREMITIES: No cyanosis, clubbing or edema. SKIN: Inspection of the skin reveals no rashes NEUROLOGIC: Alert and oriented x 4. Strength and sensation to light touch were grossly intact x 4. Course Course Course Narrative: 57-year-old male with history and clinical presentation consistent with likely anxiety, cocaine use induced shortness of breath and chest discomfort as there are no acute findings on the EKG and initial troponins after 3 days of symptoms are undetectable. Chest pain is atypical in nature, and review of all investigations without acute findings. Patient received DuoNeb as well as initial steroids will be discharged home on short course of prednisone with instructions to continue using his inhaler. Medications Administered Discontinued Medications Generic Name Dose Route Start Last Admin Trade Name Alvarado PRN Reason Stop Dose Admin Acetaminophen 975 mg 05/29/22 23:25 05/29/22 23:32 Acetaminophen 325 Mg Tablet PO 05/29/22 23:26 975 mg ONCE ONE Administration Albuterol Sulfate 7.5 mg/ 0 mg 05/29/22 23:25 05/29/22 23:53 Albuterol/Ipratropium 3 ml INHALE 05/29/22 23:26 7.5 each ONCE ONE Administration Sodium Chloride 1,000 mls @ 999 mls/hr 05/29/22 22:15 05/30/22 00:04 Ns IV 05/29/22 23:15 Infused .Q1H1M ADRIEN Infusion Methylprednisolone Sodium Succinate 125 mg 05/29/22 23:34 05/29/22 23:53 Methylprednisolone Sod Succ 125 Mg/2 Ml Vial IVPUSH 05/29/22 23:35 125 mg ONCE ONE Administration MDM - SOB/Dyspnea Lab Data Result diagrams: 05/29/22 22:31 05/29/22 22:31 Labs: Lab Results 05/29/22 05/29/22 05/29/22 Range/Units 22:31 22:31 22:31 WBC 6.9 (4.8-10.8) X10*3/uL RBC 4.56 L (4.60-5.80) X10*6/uL Hgb 13.6 L (14.0-18.0) g/dl Hct 40.5 L (42.0-52.0) % MCV 88.8 (80.0-98.0) fL MCH 29.8 (27.0-33.0) pg MCHC 33.6 (31.0-36.0) g/dl RDW 14.6 (11.0-16.0) % Plt Count 410 H (160-400) X10*3/uL MPV 8.4 L (9.4-12.4) fL Immature Gran % (Auto) 0.4 (0.0-0.4) % Neut % (Auto) 56.5 (45-73) % Lymph % (Auto) 27.3 (20-40) % Wallace % (Auto) 6.4 (2-11) % Eos % (Auto) 9.1 H (0-4) % Baso % (Auto) 0.3 (0-2) % Lymph # (Auto) 1.9 (1.2-4.9) X10*3/uL Wallace # (Auto) 0.4 (0.1-1.2) X10*3/uL Eos # (Auto) 0.6 H (0.0-0.4) X10*3/uL Baso # (Auto) 0.0 (0.0-0.2) X10*3/uL Abs Immat Gran (auto) 0.03 (0.00-0.03) X10*3/uL Absolute Neuts (auto) 3.9 (2.0-8.3) x10*3/uL Absolute Nucleated RBC 0.000 (0.0-0.012) X10*3/uL Nucleated RBC % (auto) 0.0 (0.0-0.2) /100WBC PT (10.0-13.1) SEC INR (0.9-1.1) VBG pH (7.32-7.43) VBG pCO2 mmHg VBG pO2 mmHg VBG HCO3 (22-26) mmol/L VBG O2 Saturation % VBG Base Excess mmol/L Sodium 142 (135-145) mmol/L Potassium 3.7 (3.3-5.1) mmol/L Chloride 105 (96-108) mmol/L Carbon Dioxide 24 (22-29) mmol/L Anion Gap 17 (12-20) BUN 11 (9-16) mg/dL Creatinine 1.11 (0.5-1.4) mg/dL Estim Creat Clear Calc 60.0 Estimated GFR > 60 Random Glucose 87 (60-115) mg/dL Lactic Acid 1.3 (0.5-2.0) mmol/L Calcium 9.4 (8.4-10.2) mg/dL Magnesium 2.1 (1.6-2.6) mg/dL Total Bilirubin 0.4 (0.0-1.0) mg/dL AST 16 (5-37) U/L ALT 11 (0-40) U/L Alkaline Phosphatase 114 (39-117) U/L Troponin I High Sens (<3.5-35.0) ng/L Total Protein 7.2 (6.5-8.0) g/dL Albumin 4.0 (3.5-5.0) g/dL Lipase 36 (8-78) U/L Ethyl Alcohol mg/dL Acetone, Qual Negative (Negative) Influenza Type A (PCR) (Negative) Influenza Type B (PCR) (Negative) RSV RNA Qual (PCR) (Negative) SARS-CoV-2 RNA (RT-PCR) (Negative) 05/29/22 05/29/22 05/29/22 Range/Units 22:31 22:31 22:31 WBC (4.8-10.8) X10*3/uL RBC (4.60-5.80) X10*6/uL Hgb (14.0-18.0) g/dl Hct (42.0-52.0) % MCV (80.0-98.0) fL MCH (27.0-33.0) pg MCHC (31.0-36.0) g/dl RDW (11.0-16.0) % Plt Count (160-400) X10*3/uL MPV (9.4-12.4) fL Immature Gran % (Auto) (0.0-0.4) % Neut % (Auto) (45-73) % Lymph % (Auto) (20-40) % Wallace % (Auto) (2-11) % Eos % (Auto) (0-4) % Baso % (Auto) (0-2) % Lymph # (Auto) (1.2-4.9) X10*3/uL Wallace # (Auto) (0.1-1.2) X10*3/uL Eos # (Auto) (0.0-0.4) X10*3/uL Baso # (Auto) (0.0-0.2) X10*3/uL Abs Immat Gran (auto) (0.00-0.03) X10*3/uL Absolute Neuts (auto) (2.0-8.3) x10*3/uL Absolute Nucleated RBC (0.0-0.012) X10*3/uL Nucleated RBC % (auto) (0.0-0.2) /100WBC PT (10.0-13.1) SEC INR (0.9-1.1) VBG pH (7.32-7.43) VBG pCO2 mmHg VBG pO2 mmHg VBG HCO3 (22-26) mmol/L VBG O2 Saturation % VBG Base Excess mmol/L Sodium (135-145) mmol/L Potassium (3.3-5.1) mmol/L Chloride (96-108) mmol/L Carbon Dioxide (22-29) mmol/L Anion Gap (12-20) BUN (9-16) mg/dL Creatinine (0.5-1.4) mg/dL Estim Creat Clear Calc Estimated GFR Random Glucose (60-115) mg/dL Lactic Acid (0.5-2.0) mmol/L Calcium (8.4-10.2) mg/dL Magnesium (1.6-2.6) mg/dL Total Bilirubin (0.0-1.0) mg/dL AST (5-37) U/L ALT (0-40) U/L Alkaline Phosphatase (39-117) U/L Troponin I High Sens < 3.5 (<3.5-35.0) ng/L Total Protein (6.5-8.0) g/dL Albumin (3.5-5.0) g/dL Lipase (8-78) U/L Ethyl Alcohol < 10 mg/dL Acetone, Qual (Negative) Influenza Type A (PCR) NEGATIVE (Negative) Influenza Type B (PCR) NEGATIVE (Negative) RSV RNA Qual (PCR) NEGATIVE (Negative) SARS-CoV-2 RNA (RT-PCR) NEGATIVE (Negative) 05/29/22 05/29/22 Range/Units 22:32 22:39 WBC (4.8-10.8) X10*3/uL RBC (4.60-5.80) X10*6/uL Hgb (14.0-18.0) g/dl Hct (42.0-52.0) % MCV (80.0-98.0) fL MCH (27.0-33.0) pg MCHC (31.0-36.0) g/dl RDW (11.0-16.0) % Plt Count (160-400) X10*3/uL MPV (9.4-12.4) fL Immature Gran % (Auto) (0.0-0.4) % Neut % (Auto) (45-73) % Lymph % (Auto) (20-40) % Wallace % (Auto) (2-11) % Eos % (Auto) (0-4) % Baso % (Auto) (0-2) % Lymph # (Auto) (1.2-4.9) X10*3/uL Wallace # (Auto) (0.1-1.2) X10*3/uL Eos # (Auto) (0.0-0.4) X10*3/uL Baso # (Auto) (0.0-0.2) X10*3/uL Abs Immat Gran (auto) (0.00-0.03) X10*3/uL Absolute Neuts (auto) (2.0-8.3) x10*3/uL Absolute Nucleated RBC (0.0-0.012) X10*3/uL Nucleated RBC % (auto) (0.0-0.2) /100WBC PT 11.3 (10.0-13.1) SEC INR 1.0 (0.9-1.1) VBG pH 7.43 (7.32-7.43) VBG pCO2 47 mmHg VBG pO2 49 mmHg VBG HCO3 31 H (22-26) mmol/L VBG O2 Saturation 77.0 % VBG Base Excess 6.4 mmol/L Sodium (135-145) mmol/L Potassium (3.3-5.1) mmol/L Chloride (96-108) mmol/L Carbon Dioxide (22-29) mmol/L Anion Gap (12-20) BUN (9-16) mg/dL Creatinine (0.5-1.4) mg/dL Estim Creat Clear Calc Estimated GFR Random Glucose (60-115) mg/dL Lactic Acid (0.5-2.0) mmol/L Calcium (8.4-10.2) mg/dL Magnesium (1.6-2.6) mg/dL Total Bilirubin (0.0-1.0) mg/dL AST (5-37) U/L ALT (0-40) U/L Alkaline Phosphatase (39-117) U/L Troponin I High Sens (<3.5-35.0) ng/L Total Protein (6.5-8.0) g/dL Albumin (3.5-5.0) g/dL Lipase (8-78) U/L Ethyl Alcohol mg/dL Acetone, Qual (Negative) Influenza Type A (PCR) (Negative) Influenza Type B (PCR) (Negative) RSV RNA Qual (PCR) (Negative) SARS-CoV-2 RNA (RT-PCR) (Negative) ECG Data Attestation: I personally reviewed and interpreted this ECG as follows: Prior ECG tracings: available for review Interpretation: Normal sinus rhythm, HR-95, no STEMI, AR/QRS/QTC is within normal limits. Discharge Plan Discharge Clinical Impression: Atypical chest pain, COPD (chronic obstructive pulmonary disease), Cocaine use disorder Patient Disposition: Home, Self-Care Instructions: Chest Pain (ED), Cocaine Abuse (ED), COPD (Chronic Obstructive Pulmonary Disease) (ED), Polysubstance Abuse (ED) Additional Instructions: 1. Reanudar todos los medicamentos caseros seg?n lo prescrito. 2. Complete el curso corto de esteroides que le motley recetado. 3. Imelda un seguimiento con bronson proveedor de atenci?n primaria ma?pb por la ma?pb llamando a la oficina. Regrese a la jarrett de emergencias si los s?ntomas empeoran. Prescriptions: New prednisone 50 mg tablet 50 mg PO DAILY 4 Days Qty: 4 0RF No Action pantoprazole 40 mg tablet,delayed release (DR/EC) 1 tab PO QAM nicotine 21 mg/24 hr Patch 24 Hour 21 mg transdermal DAILY PRN (Reason: nicotine cravings) 28 Days Qty: 28 0RF Spiriva with HandiHaler 18 mcg Capsule, W/Inhalation Device 18 mcg inhalation DAILY 30 Days Qty: 30 0RF albuterol sulfate [Ventolin HFA] 90 mcg/actuation Hfa Aerosol Inhaler 2 puff inhalation RQ4H PRN (Reason: Shortness Of Breath) 30 Days Qty: 6.7 0RF tamsulosin 0.4 mg Capsule 0.4 mg PO DAILY 30 Days Qty: 30 0RF atorvastatin 40 mg Tablet 40 mg PO BEDTIME 30 Days Qty: 30 0RF verapamil 100 mg capsule, [address] 100 mg PO BEDTIME 30 Days Qty: 30 0RF mirtazapine 30 mg Tablet 30 mg PO BEDTIME 30 Days Qty: 30 0RF paroxetine HCl 30 mg Tablet 30 mg PO BEDTIME 30 Days Qty: 30 0RF quetiapine 300 mg Tablet 300 mg PO BEDTIME 30 Days Qty: 30 0RF quetiapine 50 mg Tablet 50 mg PO QID PRN (Reason: anxiety) 30 Days Qty: 60 0RF trazodone 50 mg Tablet 50 mg PO BEDTIME PRN (Reason: insomnia) 30 Days Qty: 30 0RF polyethylene glycol 3350 17 gram Powder In Packet 17 g PO DAILY 30 Days Qty: 30 0RF nystatin 100,000 unit/gram Cream 1 appl topical BID 14 Days Qty: 15 0RF clonazepam 1 mg tablet 1 mg PO DAILY PRN (Reason: anxiety) 15 Days Qty: 15 1RF fluticasone propionate [Flovent HFA] 220 mcg/actuation HFA aerosol inhaler 2 puff inhalation BID 30 Days Qty: 12 0RF Referrals: [facility] [Primary Care Provider] - Print Language: Tanzanian
[2022-05-29 22:39] LABS: MANUAL DIFF FLAG NO
[2022-05-29 22:41] LABS: Basophils Percent Auto 0.3 % (0-2); Eosinophils Absolute Auto 0.6 X10*3/uL (0.0-0.4); Eosinophils Percent Auto 9.1 % (0-4); Hematocrit 40.5 % (42.0-52.0); Hemoglobin 13.6 g/dl (14.0-18.0); Imm Gran Abs Auto 0.03 X10*3/uL (0.00-0.03); Imm Gran Pct Auto 0.4 % (0.0-0.4); Lymphocytes Absolute Auto 1.9 X10*3/uL (1.2-4.9); Lymphocytes Percent Auto 27.3 % (20-40); Mean Corpuscular HGB Conc 33.6 g/dl (31.0-36.0); Mean Corpuscular Hemoglobin 29.8 pg (27.0-33.0); Mean Corpuscular Volume 88.8 fL (80.0-98.0); Mean Platelet Volume 8.4 fL (9.4-12.4); Monocytes Absolute Auto 0.4 X10*3/uL (0.1-1.2); Monocytes Percent Auto 6.4 % (2-11); Neutrophils Absolute Auto 3.9 x10*3/uL (2.0-8.3); Neutrophils Percent Auto 56.5 % (45-73); Platelet Count 410 X10*3/uL (160-400); Red Blood Count 4.56 X10*6/uL (4.60-5.80); Red Cell Distribution Width 14.6 % (11.0-16.0); White Blood Count 6.9 X10*3/uL (4.8-10.8)
[2022-05-29] MEDS: 0.9 % Sodium Chloride 1,000 ML 999 ML IV (22:42)
--- NOTE | 2022-05-29 22:45 | PC.NURSE ---
Pt. resting in bed. C/O chest pain at 03/26. Labs drawn, IV inserted and NS running per SEP.
[2022-05-29 22:47] LABS: VBG Base Excess 6.4 mmol/L; VBG HCO3 31 mmol/L (22-26); VBG pCO2 47 mmHg; VBG pH 7.43 (7.32-7.43); VBG pO2 49 mmHg
[2022-05-29 22:48] LABS: Prothrombin Time 11.3 SEC (10.0-13.1)
[2022-05-29 22:54] LABS: Venous Blood Gas Refer to POC result
[2022-05-29 22:56] LABS: Acetone, serum QL Negative (Negative)
[2022-05-29 22:58] LABS: Lactic Acid 1.3 mmol/L (0.5-2.0)
[2022-05-29 22:59] LABS: Ethanol < 10 mg/dL
[2022-05-29 23:03] LABS: Alanine Aminotransferase 11 U/L (0-40); Alkaline Phosphatase 114 U/L (39-117); Anion Gap 17 (12-20); Aspartate Amino Transferase 16 U/L (5-37); Bilirubin Total 0.4 mg/dL (0.0-1.0); Blood Urea Nitrogen 11 mg/dL (9-16); Calcium 9.4 mg/dL (8.4-10.2); Carbon Dioxide 24 mmol/L (22-29); Chloride 105 mmol/L (96-108); Estimated Glomerular Filt Rate > 60; Glucose Random 87 mg/dL (60-115); Magnesium 2.1 mg/dL (1.6-2.6); Potassium 3.7 mmol/L (3.3-5.1); Sodium 142 mmol/L (135-145); Total Protein 7.2 g/dL (6.5-8.0)
[2022-05-29 23:08] LABS: Troponin-I High Sensitivity < 3.5 ng/L (<3.5-35.0)
[2022-05-29 23:20] LABS: Influenza A PCR NEGATIVE (Negative); Influenza B PCR NEGATIVE (Negative); Resp Syncy Virus RNA Qual PCR NEGATIVE (Negative); SARS COV2 PCR INHOUSE NEGATIVE (Negative)
[2022-05-29] MEDS: Acetaminophen 325 MG TABLET 975 MG PO (23:32)
[2022-05-29] MEDS: methylPREDNISolone Sod Succ 125 MG/2 ML VIAL IVPUSH (23:53)
[2022-05-29] MEDS: Albuterol Sulfate 7.5 MG, Albuterol/Iprat 2.5/0.5MG 3 ML 3 ML INHALE (23:53)
[2022-05-29 23:54] LABS: Lipase 36 U/L (8-78)
[2022-05-29 23:55] VITALS: PULSE 88; RESP 18; O2SAT 95
[2022-05-29 23:58] VITALS: BP 117/61; PULSE 88; RESP 22; TEMP 36.3; O2SAT 95
--- NOTE | 2022-05-30 01:39 | PC.NURSE ---
Patient making Si statements stating he is tired of this life and wants to hang himself. Dr. Rosado notified.
--- NOTE | 2022-05-30 01:54 | PC.NURSE ---
Pt. making SI statements and agitated, punching the wall in room. [facility] referral sent.
[2022-05-30 03:32] LABS: Appearance Urine Clear; Color Urine Yellow; Glucose Urine UA Negative (Negative); Leukocyte Esterase Urine Negative (Negative); Nitrite Urine Negative (Negative); Specific Gravity - Urine 1.025 (1.005-1.025); UMIC TRIGGER UACC YES; Urine Blood Trace (Negative); Urine Ketones Trace mg/dL (Negative); Urine Protein Negative (Neg-Trace)
[2022-05-30 03:35] LABS: Bacteria Urine None Seen (None Seen); Hyaline Casts Urine 0-2 /LPF (0-2); RBC Urine 0-2 /HPF (0-2); Squamous Epithelial Cell Urine 0-2 /HPF (0-2); WBC Urine 0-5 /HPF (0-5)
[2022-05-30 03:43] LABS: Amphetamine Screen Urine Not Detected (Not Detect); Barbiturates, Urine Not Detected (Not Detect); Benzodiazepines Screen Urine Not Detected (Not Detect); Cannabinoid Screen Urine POSITIVE (Not Detect); Cocaine Screen Urine POSITIVE (Not Detect); Fentanyl, urine Not Detected (Not Detect); Opiate Screen Urine Not Detected (Not Detect); Phencyclidine Screen Urine Not Detected (Not Detect)
[2022-05-30 03:55] VITALS: BP 127/76; PULSE 86; RESP 17; TEMP 36.9; O2SAT 95
[2022-05-30] MEDS: clonazePAM 1 MG TABLET PO (06:06)
[2022-05-30] MEDS: Omeprazole 20 MG CAPSULE.DR PO (06:37)
--- NOTE | 2022-05-30 06:53 | PC.NURSE ---
Patient did not sleep much since transferring to POD. Up to BR multiple times, gait steady. 15min checks donwe
[2022-05-30] MEDS: Tamsulosin HCL 0.4 MG CAPSULE PO (08:38)
[2022-05-30] MEDS: polyethylene glycoL 3350 17 GM POWD.PACK PO (08:39)
[2022-05-30] MEDS: Nystatin Cream 15 GM TUBE 1 APPL TOPICAL (08:49)
[2022-05-30] MEDS: Fluticasone Propionate 250 MCG BLST.W.DEV 1 PUFF INHALE (08:49)
[2022-05-30 09:01] VITALS: BP 113/68; PULSE 86; TEMP 36.4; O2SAT 96
--- NOTE | 2022-05-30 10:45 | ECG_ITS ---
Test Reason : CHEST PAIN Blood Pressure : / mmHG Vent. Rate : 076 BPM Atrial Rate : 076 BPM P-R Int : 156 ms QRS Dur : 102 ms QT Int : 384 ms P-R-T Axes : 078 019 076 degrees QTc Int : 432 ms Normal sinus rhythm Incomplete right bundle branch block Borderline ECG When compared with ECG of 29-MAY-2022 22:40, No significant change was found Heart rate has decreased Referred By: Felecia Rosado Electronically Signed By:JIE MCDANIELS MD
[2022-05-30] MEDS: LORazepam 1 MG TABLET PO (11:13)
[2022-05-30] MEDS: Acetaminophen 325 MG TABLET 975 MG PO (11:14)
--- NOTE | 2022-05-30 15:21 | PC.NURSE ---
assumed care of pt at 1500, pt restless and pacing in front of desk asking for meds, pt informed that he is not due for any of his medications until 1999, pt back to room talking on portable phone.
--- NOTE | 2022-05-30 16:11 | PC.NURSE ---
pt medicated per provider order for increased anxiety.
[2022-05-30] MEDS: hydrOXYzine HCL 25 MG TABLET PO (16:12)
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
--- NOTE | 2022-05-30 16:41 | MHC.CARE ---
Pod RN reaches out to CARE Team looking for update on if pt can be discharged. Per Jennifer Walker NP, pt to be discharged.
--- NOTE | 2022-05-30 17:00 | PC.NURSE ---
pt requesting to go home, currently voluntary, CARE team notified.
--- NOTE | 2022-05-30 17:29 | PC.NURSE ---
pt discharged to waiting room to wait for a Lyft - booked by CARE team.
== END 2022-05-30 17:30 | disposition home or self-care (01) ==
PROVIDERS: Emergency Provider Student in an Organized Health Care Education/Training Program
DX: R07.89 Other chest pain (principal); R06.02 Shortness of breath; J44.9 Chronic obstructive pulmonary disease, unspecified; F14.10 Cocaine abuse, uncomplicated; Z20.822 Contact with and (suspected) exposure to COVID-19; Z79.899 Other long term (current) drug therapy
CPT/HCPCS: 0241U; 36415; 71045; 80053; 80307; 81001; 82009; 82077; 82803; 83605; 83690; 83735; 84484; 85025; 85610; 87040; 93005; 94640; 96361; 96374; 99285; J2930

== ENCOUNTER 2022-06-02 23:40 | Emergency (ER) | payer MEDICAID, SELFPAY ==
[2022-06-02 23:46] VITALS: BP 104/62; BP 113/71; PULSE 101; PULSE 102; RESP 20; TEMP 36.4; O2SAT 96; BMI 24.0
--- NOTE | 2022-06-02 23:57 | ECG_ITS ---
Test Reason : pain
--- NOTE | 2022-06-03 01:03 | ED.WEAKNESS ---
HPI - Weakness General Chief complaint: Weakness Stated complaint: MARTINES,N/V Time Seen by Provider: 06/03/22 01:03 Source: patient Mode of arrival: ambulatory Limitations: no limitations History of Present Illness HPI Narrative: Patient 57 years old with history of cocaine abuse multiple ED visits for cocaine abuse COPD/chest pain last visit was on 05/29 today he comes here for increased weakness cough congestion for last 3-4 days also complaining of nausea and vomiting no significant abdominal pain no fever or chills patient does not use any IVDA Related Data Home Medications Medication Instructions Recorded Confirmed pantoprazole 40 mg tablet,delayed 1 tab PO QAM 04/04/22 05/30/22 release Previous Rx's Medication Instructions Recorded albuterol sulfate 90 mcg/actuation 2 puff inhalation RQ4H PRN 04/10/22 aerosol inhaler (Ventolin HFA) Shortness Of Breath 30 days #6.7 grams atorvastatin 40 mg tablet 40 mg PO BEDTIME 30 days #30 tabs 04/10/22 clonazepam 1 mg tablet 1 mg PO DAILY PRN anxiety 15 days 04/10/22 #15 tabs fluticasone propionate 220 2 puff inhalation BID 30 days #12 04/10/22 mcg/actuation HFA aerosol inhaler grams (Flovent HFA) mirtazapine 30 mg tablet 30 mg PO BEDTIME 30 days #30 tabs 04/10/22 nicotine 21 mg/24 hr daily 21 mg transdermal DAILY PRN 04/10/22 transdermal patch nicotine cravings 28 days #28 ea nystatin 100,000 unit/gram topical 1 appl topical BID 14 days #15 04/10/22 cream grams paroxetine HCl 30 mg tablet 30 mg PO BEDTIME 30 days #30 tabs 04/10/22 polyethylene glycol 3350 17 gram 17 g PO DAILY 30 days #30 ea 04/10/22 oral powder packet quetiapine 300 mg tablet 300 mg PO BEDTIME 30 days #30 tabs 04/10/22 quetiapine 50 mg tablet 50 mg PO QID PRN anxiety 30 days 04/10/22 #60 tabs tamsulosin 0.4 mg capsule 0.4 mg PO DAILY 30 days #30 caps 04/10/22 tiotropium bromide 18 mcg capsule 18 mcg inhalation DAILY 30 days 04/10/22 with inhalation device (Spiriva #30 inhalations with HandiHaler) trazodone 50 mg tablet 50 mg PO BEDTIME PRN insomnia 30 04/10/22 days #30 tabs verapamil 100 mg capsule 24hr 100 mg PO BEDTIME 30 days #30 caps 04/10/[address],ext[address]release albuterol sulfate 90 mcg/actuation 2 puff inhalation Q4-6H PRN 06/03/22 aerosol inhaler (ProAir HFA) shortness of breath or wheezing #8.5 grams doxycycline hyclate 100 mg tablet 100 mg PO BID #20 tabs 06/03/22 prednisone 20 mg tablet 40 mg PO DAILY #10 tabs 06/03/22 Allergies Allergy/AdvReac Type Severity Reaction Status Date / Time ibuprofen Allergy Intermediate Stomach Verified 05/30/22 03:07 Upset penicillin V Allergy Intermediate rash Verified 05/30/22 03:07 Review of Systems Review of Systems: Yes all other systems are reviewed and are negative [facility] Past Medical History Medical History Anxiety Asthma Cannabis use disorder, moderate, dependence Cocaine use disorder Depression Emphysema of lung Nicotine dependence Opioid use disorder Pulmonary nodules Surgical History Hx of cholecystectomy Social History Social History Household Members: None Housing: Apartment Do you presently have visiting nurse or other home services: Yes Unable to assess alcohol history related to: Unknown Alcohol intake: former Patient Tobacco Use Status: Tobacco use Unknown Tobacco use type: Cigarette Cigarettes Per Day: 4 Smoked in Last 30 Days: Yes e-Cigarette/Vaping Use: Never Used Second Hand Smoke Exposure: No Use of substances other than those prescribed or required for medical reasons: Yes Substance Use Type: Crack/Cocaine and Marijuana Advance Directives: No Advance Directives Information Provided: Yes service: No Sexual orientation: Straight/Heterosexual Physical Exam Vital Signs: Vital Signs: Last Vital Signs Temp 97.5 F 06/03/22 03:38 Pulse 91 06/03/22 03:38 Resp 18 06/03/22 03:38 BP 102/72 06/03/22 03:38 Pulse Ox 95 06/03/22 03:38 O2 Del Method 06/03/22 03:38 BMI result Body Mass Index 24.0 Appearance: Alert. Oriented X3. No acute distress. Eyes: PERRLA, No Nystagmus ENT: Pharynx normal. Oral Mucosa moist Neck: Normal inspection. Neck supple. CVS: Normal heart rate and rhythm. Pulses normal. Respiratory: No respiratory distress. Equal air entry bilateral, bilateral wheezing Abdomen: Soft and nontender. Bowel sounds are present, no mass palpable, no CVA tenderness Skin: Skin warm and dry. Normal skin color. Normal skin turgor. Extremities: No lower extremity edema. No calf tenderness Neuro: Oriented X 3. No motor deficit. No sensory deficit.No cerebellar signs , cranial nerves II-XII intact Medications Administered Discontinued Medications Generic Name Dose Route Start Last Admin Trade Name Freq PRN Reason Stop Dose Admin Albuterol Sulfate 2.5 mg/ 0 mg 06/03/22 01:26 06/03/22 01:48 Albuterol/Ipratropium 3 ml INHALE 06/03/22 01:27 1 each ONCE ONE Administration Doxycycline Monohydrate 100 mg 06/03/22 03:40 06/03/22 03:56 Doxycycline Monohydrate 100 Mg Capsule PO 06/03/22 03:41 100 mg ONCE ONE Administration Sodium Chloride 1,000 mls @ 999 mls/hr 06/03/22 01:29 06/03/22 03:00 Ns IV 06/03/22 02:29 Infused .Q1H1M ONE Infusion Methylprednisolone Sodium Succinate 125 mg 06/03/22 01:29 06/03/22 01:44 Methylprednisolone Sod Succ 125 Mg/2 Ml Vial IVPUSH 06/03/22 01:30 125 mg ONCE ONE Administration MDM - Weakness MDM Narrative Medical decision making narrative: Patient multiple complaints clinically bronchitis labs are stable chest x-ray negative discharge patient home advised to continue inhaler and prednisone 5 am ; patient feel depressed, does not want to live anymore feels suicidal but no plan will get crisis evaluation Medical Records Attestation: I reviewed the patient's medical records. Lab Data Attestation: I reviewed the patient's lab results. Result diagrams: 06/03/22 01:36 06/03/22 01:36 Labs: Lab Results 06/03/22 06/03/22 06/03/22 Range/Units 01:36 01:36 01:36 WBC 8.6 (4.8-10.8) X10*3/uL RBC 4.12 L (4.60-5.80) X10*6/uL Hgb 12.3 L (14.0-18.0) g/dl Hct 36.6 L (42.0-52.0) % MCV 88.8 (80.0-98.0) fL MCH 29.9 (27.0-33.0) pg MCHC 33.6 (31.0-36.0) g/dl RDW 14.6 (11.0-16.0) % Plt Count 344 (160-400) X10*3/uL MPV 8.0 L (9.4-12.4) fL Immature Gran % (Auto) 0.5 H (0.0-0.4) % Neut % (Auto) 65.8 (45-73) % Lymph % (Auto) 20.7 (20-40) % [place] % (Auto) 7.5 (2-11) % Eos % (Auto) 4.9 H (0-4) % Baso % (Auto) 0.6 (0-2) % Lymph # (Auto) 1.8 (1.2-4.9) X10*3/uL [place] # (Auto) 0.6 (0.1-1.2) X10*3/uL Eos # (Auto) 0.4 (0.0-0.4) X10*3/uL Baso # (Auto) 0.1 (0.0-0.2) X10*3/uL Abs Immat Gran (auto) 0.04 H (0.00-0.03) X10*3/uL Absolute Neuts (auto) 5.6 (2.0-8.3) x10*3/uL Absolute Nucleated RBC 0.000 (0.0-0.012) X10*3/uL Nucleated RBC % (auto) 0.0 (0.0-0.2) /100WBC Sodium 142 (135-145) mmol/L Potassium 4.5 D (3.3-5.1) mmol/L Chloride 107 (96-108) mmol/L Carbon Dioxide 27 (22-29) mmol/L Anion Gap 13 (12-20) BUN 14 (9-16) mg/dL Creatinine 1.00 (0.5-1.4) mg/dL Estim Creat Clear Calc 66.6 Estimated GFR > 60 Random Glucose 90 (60-115) mg/dL Calcium 8.8 D (8.4-10.2) mg/dL Total Bilirubin 0.3 (0.0-1.0) mg/dL AST 15 (5-37) U/L ALT 10 (0-40) U/L Alkaline Phosphatase 84 (39-117) U/L Total Protein 6.4 L (6.5-8.0) g/dL Albumin 3.6 (3.5-5.0) g/dL COVID-19 ([place]) Negative (Negative) COVID-19 Clin Com See Note ECG Data Attestation: I personally reviewed and interpreted this ECG as follows: Interpretation: Normal sinus rhythm heart rate 95 beats per minute normal interval normal axis no acute ST T wave changes no acute ischemia Discharge Plan Discharge Clinical Impression: Acute bronchitis Patient Disposition: Home, Self-Care Instructions: Acute Bronchitis (ED) Additional Instructions: Use inhaler as prescribed Antibiotic and prednisone as prescribed Drink plenty of fluids Follow with PCP as needed Prescriptions: New albuterol sulfate [ProAir HFA] 90 mcg/actuation HFA aerosol inhaler 2 puff inhalation Q4-6H PRN (Reason: shortness of breath or wheezing) Qty: 8.5 0RF doxycycline hyclate 100 mg tablet 100 mg PO BID Qty: 20 0RF prednisone 20 mg tablet 40 mg PO DAILY Qty: 10 0RF No Action pantoprazole 40 mg tablet,delayed release (DR/EC) 1 tab PO QAM nicotine 21 mg/24 hr Patch 24 Hour 21 mg transdermal DAILY PRN (Reason: nicotine cravings) 28 Days Qty: 28 0RF Spiriva with HandiHaler 18 mcg Capsule, W/Inhalation Device 18 mcg inhalation DAILY 30 Days Qty: 30 0RF albuterol sulfate [Ventolin HFA] 90 mcg/actuation Hfa Aerosol Inhaler 2 puff inhalation RQ4H PRN (Reason: Shortness Of Breath) 30 Days Qty: 6.7 0RF tamsulosin 0.4 mg Capsule 0.4 mg PO DAILY 30 Days Qty: 30 0RF atorvastatin 40 mg Tablet 40 mg PO BEDTIME 30 Days Qty: 30 0RF verapamil 100 mg capsule, [address] 100 mg PO BEDTIME 30 Days Qty: 30 0RF mirtazapine 30 mg Tablet 30 mg PO BEDTIME 30 Days Qty: 30 0RF paroxetine HCl 30 mg Tablet 30 mg PO BEDTIME 30 Days Qty: 30 0RF quetiapine 300 mg Tablet 300 mg PO BEDTIME 30 Days Qty: 30 0RF quetiapine 50 mg Tablet 50 mg PO QID PRN (Reason: anxiety) 30 Days Qty: 60 0RF trazodone 50 mg Tablet 50 mg PO BEDTIME PRN (Reason: insomnia) 30 Days Qty: 30 0RF polyethylene glycol 3350 17 gram Powder In Packet 17 g PO DAILY 30 Days Qty: 30 0RF nystatin 100,000 unit/gram Cream 1 appl topical BID 14 Days Qty: 15 0RF clonazepam 1 mg tablet 1 mg PO DAILY PRN (Reason: anxiety) 15 Days Qty: 15 1RF fluticasone propionate [Flovent HFA] 220 mcg/actuation HFA aerosol inhaler 2 puff inhalation BID 30 Days Qty: 12 0RF
[2022-06-03 01:44] LABS: MANUAL DIFF FLAG NO
[2022-06-03] MEDS: methylPREDNISolone Sod Succ 125 MG/2 ML VIAL IVPUSH (01:44)
[2022-06-03 01:45] VITALS: BP 108/73; PULSE 92; RESP 21; TEMP 36.4; O2SAT 96
[2022-06-03] MEDS: 0.9 % Sodium Chloride 1,000 ML 999 ML IV (01:45)
[2022-06-03 01:46] LABS: Basophils Absolute Auto 0.1 X10*3/uL (0.0-0.2); Basophils Percent Auto 0.6 % (0-2); Eosinophils Absolute Auto 0.4 X10*3/uL (0.0-0.4); Eosinophils Percent Auto 4.9 % (0-4); Hematocrit 36.6 % (42.0-52.0); Hemoglobin 12.3 g/dl (14.0-18.0); Imm Gran Abs Auto 0.04 X10*3/uL (0.00-0.03); Imm Gran Pct Auto 0.5 % (0.0-0.4); Lymphocytes Absolute Auto 1.8 X10*3/uL (1.2-4.9); Lymphocytes Percent Auto 20.7 % (20-40); Mean Corpuscular HGB Conc 33.6 g/dl (31.0-36.0); Mean Corpuscular Hemoglobin 29.9 pg (27.0-33.0); Mean Corpuscular Volume 88.8 fL (80.0-98.0); Monocytes Absolute Auto 0.6 X10*3/uL (0.1-1.2); Monocytes Percent Auto 7.5 % (2-11); Neutrophils Absolute Auto 5.6 x10*3/uL (2.0-8.3); Neutrophils Percent Auto 65.8 % (45-73); Platelet Count 344 X10*3/uL (160-400); Red Blood Count 4.12 X10*6/uL (4.60-5.80); Red Cell Distribution Width 14.6 % (11.0-16.0); White Blood Count 8.6 X10*3/uL (4.8-10.8)
[2022-06-03] MEDS: Albuterol Sulfate 2.5 MG, Albuterol/Iprat 2.5/0.5MG 3 ML 3 ML INHALE (01:48)
[2022-06-03 01:51] VITALS: PULSE 85; O2SAT 95
[2022-06-03 02:03] LABS: COVID-19 Test Negative (Negative); IDNOW Serial# 16C4AD1C
[2022-06-03 02:07] LABS: Alanine Aminotransferase 10 U/L (0-40); Albumin Level 3.6 g/dL (3.5-5.0); Alkaline Phosphatase 84 U/L (39-117); Anion Gap 13 (12-20); Aspartate Amino Transferase 15 U/L (5-37); Bilirubin Total 0.3 mg/dL (0.0-1.0); Blood Urea Nitrogen 14 mg/dL (9-16); Calcium 8.8 mg/dL (8.4-10.2); Carbon Dioxide 27 mmol/L (22-29); Chloride 107 mmol/L (96-108); Creatinine Clr Calc Pharmacy 66.6; Estimated Glomerular Filt Rate > 60; Glucose Random 90 mg/dL (60-115); Potassium 4.5 mmol/L (3.3-5.1); Sodium 142 mmol/L (135-145); Total Protein 6.4 g/dL (6.5-8.0)
--- NOTE | 2022-06-03 02:12 | PC.NURSE ---
Patient alert and oriented x 3. Patient c/o generalized pain, nausea states isn't able to keep anything down. Patient given water and drank a whole glass. tele: sinus rythym IV fluids and solumedrol given. Will continue with plan of care.
[2022-06-03 03:38] VITALS: BP 102/72; PULSE 91; RESP 18; TEMP 36.4; O2SAT 95
--- NOTE | 2022-06-03 03:41 | PC.NURSE ---
pt is resting without a complaint , vitals taken urinal given , icee cup was also given
[2022-06-03] MEDS: Doxycycline Monohydrate 100 MG CAPSULE PO (03:56)
--- NOTE | 2022-06-03 05:28 | PC.NURSE ---
attempting to d/c pt home, pt making multiple suicidal statements, states that he will kill himself if he goes home, lots of stresses at home dr blakely aware pt being changed over into [facility] attire and belongings secured and plan to move to the pod
[2022-06-03] MEDS: Acetaminophen 325 MG TABLET 975 MG PO (07:39)
[2022-06-03 08:50] LABS: Appearance Urine Clear; Color Urine Yellow; Glucose Urine UA 250 mg/dL (Negative); Leukocyte Esterase Urine Negative (Negative); Nitrite Urine Negative (Negative); Specific Gravity - Urine 1.015 (1.005-1.025); Urine Blood Negative (Negative); Urine Ketones Negative (Negative); Urine Protein Negative (Neg-Trace)
[2022-06-03] MEDS: QUEtiapine Fumarate 50 MG TABLET PO ×2 (09:09→20:14)
[2022-06-03] MEDS: clonazePAM 1 MG TABLET PO ×2 (09:09→20:13)
[2022-06-03 11:51] LABS: Amphetamine Screen Urine Not Detected (Not Detect); Barbiturates, Urine Not Detected (Not Detect); Benzodiazepines Screen Urine Not Detected (Not Detect); Cannabinoid Screen Urine POSITIVE (Not Detect); Cocaine Screen Urine POSITIVE (Not Detect); Fentanyl, urine Not Detected (Not Detect); Opiate Screen Urine Not Detected (Not Detect); Phencyclidine Screen Urine Not Detected (Not Detect)
[2022-06-03 12:38] VITALS: BP 123/73; PULSE 89; RESP 16; TEMP 36.4; O2SAT 96
--- NOTE | 2022-06-03 17:46 | MHC.RECOVSUP ---
? Reason for consult Recovery Support o Current location: [facility] o Identified substance use concern: Cocaine - Support ? Intervention: o Community resources provided o Harm reduction discussion ? Plan: o Patient awaiting crisis evaluation o Patient to follow up with [facility] after discharge ? Additional information: Met with Patient we talk Recovery and Harm reduction.. We set goals to follow up on when he gets out.. 1. Going to [facility] 2. 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 3. Follow Plan made by his Care team...
--- NOTE | 2022-06-03 18:39 | PC.NURSE ---
pt calm and cooperative throughout shift, medicated as per SEP. pt has been resting comfortably, NAD for most of this shift. pt currently sitting in [place] speaking with a male peer. [facility] William recovery auditor spoke with pt r/t needs.
--- NOTE | 2022-06-03 20:31 | PC.NURSE ---
patient awake, alert, oriented x4. ambulating with steady gait. currently watching tv and eating ice cream. calm and cooperative with staff.
[2022-06-03] MEDS: QUEtiapine Fumarate 300 MG TABLET 250 MG PO (22:36)
--- NOTE | 2022-06-04 01:11 | PC.NURSE ---
patient sleeping, chest rise and fall equal and unlabored. safety checks in place.
[2022-06-04 03:18] VITALS: BP 117/75; PULSE 95; RESP 17; TEMP 36.4; O2SAT 97
--- NOTE | 2022-06-04 07:39 | PC.NURSE ---
Report taken from night RN, understood that pt is a voluntary bed search for depression. Pt is asleep but easily arousable, has tolerated all of breakfst tray. pt speaks in clear and even tones when awake and maintains appropriate eye contact.
[2022-06-04] MEDS: clonazePAM 1 MG TABLET PO (07:48)
[2022-06-04] MEDS: QUEtiapine Fumarate 50 MG TABLET PO (07:48)
[2022-06-04 08:06] VITALS: BP 100/65; PULSE 90; RESP 16; TEMP 36.7; O2SAT 96
== END 2022-06-04 14:22 | disposition home or self-care (01) ==
PROVIDERS: Internal Medicine; Emergency Provider Emergency Medicine Emergency Medical Services
DX: J40 Bronchitis, not specified as acute or chronic (principal); R51.9 Headache, unspecified; R53.1 Weakness; Z79.899 Other long term (current) drug therapy; Z20.822 Contact with and (suspected) exposure to COVID-19
CPT/HCPCS: 36415; 80053; 80307; 81003; 85025; 87635; 93005; 94640; 96361; 96374; 99285; J2930

== ENCOUNTER 2022-06-20 18:18 | Emergency (ER) | payer MEDICAID, SELFPAY ==
--- NOTE | ~2022-06-20 | XR_ITS ---
EXAMINATION: XR CHEST CLINICAL INFORMATION: Shortness of breath COMPARISON: Chest x-ray 05/29/2022 TECHNIQUE: Frontal view of the chest was obtained. 2053 hours FINDINGS: No significant abnormality is noted involving the heart, lungs, mediastinum, bony thorax or soft tissues. XR/XR chest 1V IMPRESSION: Unremarkable examination.
[2022-06-20 18:32] VITALS: BP 119/71; BP 138/72; PULSE 84; PULSE 94; RESP 18; TEMP 37.1; O2SAT 95; O2SAT 98; BMI 23.8
--- NOTE | 2022-06-20 18:47 | MHC.CARE ---
Care Team had a telephonic encounter with NIGHAT Ho and he reported pt was evaluated by NIGHAT and he is a bedsearch.
[2022-06-20 19:42] LABS: MANUAL DIFF FLAG NO
[2022-06-20 19:43] LABS: Basophils Absolute Auto 0.1 X10*3/uL (0.0-0.2); Basophils Percent Auto 0.9 % (0-2); Eosinophils Absolute Auto 0.3 X10*3/uL (0.0-0.4); Eosinophils Percent Auto 6.1 % (0-4); Hematocrit 37.5 % (42.0-52.0); Hemoglobin 12.7 g/dl (14.0-18.0); Imm Gran Abs Auto 0.02 X10*3/uL (0.00-0.03); Imm Gran Pct Auto 0.4 % (0.0-0.4); Mean Corpuscular HGB Conc 33.9 g/dl (31.0-36.0); Mean Corpuscular Hemoglobin 30.3 pg (27.0-33.0); Mean Corpuscular Volume 89.5 fL (80.0-98.0); Mean Platelet Volume 8.7 fL (9.4-12.4); Monocytes Absolute Auto 0.5 X10*3/uL (0.1-1.2); Monocytes Percent Auto 8.4 % (2-11); Neutrophils Absolute Auto 2.7 x10*3/uL (2.0-8.3); Neutrophils Percent Auto 48.2 % (45-73); Platelet Count 360 X10*3/uL (160-400); Red Blood Count 4.19 X10*6/uL (4.60-5.80); Red Cell Distribution Width 14.5 % (11.0-16.0); White Blood Count 5.6 X10*3/uL (4.8-10.8)
[2022-06-20 19:50] LABS: COVID-19 Test Negative (Negative); IDNOW Serial# BCCEAD1C
[2022-06-20 19:56] LABS: Amphetamine Screen Urine Not Detected (Not Detect); Barbiturates, Urine Not Detected (Not Detect); Benzodiazepines Screen Urine Not Detected (Not Detect); Cannabinoid Screen Urine POSITIVE (Not Detect); Cocaine Screen Urine POSITIVE (Not Detect); Fentanyl, urine Not Detected (Not Detect); Opiate Screen Urine Not Detected (Not Detect); Phencyclidine Screen Urine Not Detected (Not Detect)
--- NOTE | 2022-06-20 19:56 | ED_ITS ---
HPI - Psych General Chief Complaint: Psychiatric Symptoms Stated Complaint: Crisis/Section 12 Time Seen by Provider: 06/20/22 18:33 Source: patient Mode of arrival: ambulatory Limitations: other (poor historian) History of Present Illness HPI Narrative: Omaira is a 57-year-old male with past medical history of cocaine opioid use disorder, anxiety, depression, COPD, presents to the emergency department today with a chief complaint of anxiety and suicide attempt yesterday morning. He says he tried to take several pills from unknown medication he states he think they were his psych meds unable to quantify how many he took, or what he took. He said he later called his brother in was convinced to come to the emergency room because he needs help. He endorses auditory hallucinations and racing thoughts, but denies visual hallucinations. He cannot specify what he hears. He also reports headache (diffuse,feels like typical, no vision changes, dizziness or trauma), and nausea. Patient tells me he feels short of breath sometimes however not feeling short of breath at this time. Denies fevers, chills, chest pain, vomiting, diarrhea, constipation, or urinary changes. He says ?everything is bothering me in life. Patient was seen by the behavioral health team in the community in is currently an inpatient bed search. MD complaint: suicidal ideation, anxiety, substance abuse and hallucinations Onset (ago): day(s) Duration: constant History of same: Yes Relieving factors: none Exacerbating factors: none Context: recent drug abuse Associated psychiatric symptoms: depression, suicidal ideation, racing thoughts and auditory hallucinations Associated symptoms: headache and shortness of breath Treatments prior to arrival: none If self harm: admits thoughts of self harm, has plan and has acted on plan Related Data Home Medications Medication Instructions Recorded Confirmed pantoprazole 40 mg tablet,delayed 1 tab PO QAM 04/04/22 06/20/22 release atorvastatin 40 mg tablet 1 tab PO BEDTIME 06/20/22 06/20/22 clonazepam 1 mg tablet 1 tab PO DAILY PRN anxiety 06/20/22 06/20/22 ferrous sulfate 325 mg (65 mg 1 tab PO BEDTIME 06/20/22 06/20/22 iron) tablet (FeroSul) fluticasone propionate 220 2 puff inhalation BID 06/20/22 06/20/22 mcg/actuation HFA aerosol inhaler (Flovent HFA) mirtazapine 30 mg tablet 1 tab PO BEDTIME 06/20/22 06/20/22 quetiapine 100 mg tablet 1 tab PO QAM depressive disorder 06/20/22 06/20/22 quetiapine 300 mg tablet 1 tab PO BEDTIME depressive 06/20/22 06/20/22 disorder tamsulosin 0.4 mg capsule 1 cap PO DAILY 06/20/22 06/20/22 verapamil 100 mg capsule 24hr 1 cap PO BEDTIME 06/20/22 06/20/[address],ext[address]release Previous Rx's Medication Instructions Recorded albuterol sulfate 90 mcg/actuation 2 puff inhalation RQ4H PRN 04/10/22 aerosol inhaler (Ventolin HFA) Shortness Of Breath 30 days #6.7 grams nicotine 21 mg/24 hr daily 21 mg transdermal DAILY PRN 04/10/22 transdermal patch nicotine cravings 28 days #28 ea albuterol sulfate 90 mcg/actuation 2 puff inhalation Q4-6H PRN 06/03/22 aerosol inhaler (ProAir HFA) shortness of breath or wheezing #8.5 grams Allergies Allergy/AdvReac Type Severity Reaction Status Date / Time ibuprofen Allergy Intermediate Stomach Verified 05/30/22 03:07 Upset penicillin V Allergy Intermediate rash Verified 05/30/22 03:07 Review of Systems Review of Systems: Constitutional : No Weight loss, No Fever, No Chills, No Fatigue, No Malaise ENT/Mouth : No sore throat, No Rhinorrhea Eyes: No Eye Pain, No Swelling, No Redness Cardiovascular : No Chest Pain, No SOB, No Dyspnea on Exertion, No Orthopnea, No Edema, No Palpitations Respiratory : No Cough, No Sputum, No Wheezing Gastrointestinal : + Nausea, No Vomiting, No Diarrhea, No Constipation, No abdominal Pain, No Hematochezia, No Melena Genitourinary : No Dysuria, No Urinary Frequency, No Hematuria, Musculoskeletal : No joint pain, No Myalgias, No Joint Swelling Skin : No Skin Lesions, No rash Neuro : No Weakness, No Numbness, No Dizziness, + Headache Psych : + Anxiety/Panic, + Depression, +SI All other systems reviewed and are negative Yes all other systems are reviewed and are negative PMFSH Past Medical History Attestation statement: The following information was validated with the patient. Source: old records reviewed and nursing notes reviewed Medical History Anxiety Asthma Cannabis use disorder, moderate, dependence Cocaine use disorder Depression Emphysema of lung Nicotine dependence Opioid use disorder Pulmonary nodules Surgical History Hx of cholecystectomy Social History Social History Household Members: None Housing: Apartment Do you presently have visiting nurse or other home services: Yes Unable to assess alcohol history related to: Unknown Alcohol intake: former Patient Tobacco Use Status: Tobacco use Unknown Tobacco use type: Cigarette Cigarettes Per Day: 4 e-Cigarette/Vaping Use: Never Used Second Hand Smoke Exposure: No Substance Use Type: Crack/Cocaine and Marijuana Advance Directives: No Advance Directives Information Provided: No service: No Sexual orientation: Straight/Heterosexual Physical Exam Vital Signs: Vital Signs: Last Vital Signs Temp 98.8 F 06/20/22 18:32 Pulse 84 06/20/22 18:32 Resp 18 06/20/22 18:32 BP 119/71 06/20/22 18:32 Pulse Ox 98 06/20/22 18:32 O2 Del Method 06/20/22 18:32 BMI result Body Mass Index 23.8 Vital signs stable Appearance: Alert.? Oriented X3.? No acute distress.? Head: Normocephalic, atraumatic, no step-offs or deformities Eyes: Pupils equal, round and reactive to light.? CVS: Normal heart rate and rhythm.? Pulses normal.? Respiratory: No respiratory distress.? Breath sounds normal.? Abdomen: Soft and nontender.? Skin: Skin warm and dry.? Normal skin color.? Normal skin turgor.? Extremities: No lower extremity edema.? No calf ttp. 5/5 strength to bilateral upper and lower extremities Back: No midline tenderness, no C-spine tenderness, full range of motion, no CVA tenderness bilaterally Neuro: Oriented X 3.? No motor deficit.? No sensory deficit. CN 2-12 intact . Normal [id number], [id number]-[id number], steady tandem gait with normal coordination. Course Reevaluation(s) Reevaluation #1: CBC with a normocytic anemia. Chemistry with no acute findings requiring intervention. Salicylates, acetaminophen and ethanol negative. Urine toxi cology positive for cocaine and marijuana. COVID negative. At this time patient will be placed into physician observation to allow more time for inpatient psychiatric placement. Patient on a Section 12. Patient common cooperative no acute distress. Will continue to monitor. Time: 20:46 Medical Decision Making Medical Decision Making [facility] Narrative: 1921 57 year old male presents w/ headache, nausea, SI w/ plan to overdose. Reports attempt by taking unkown pills yesterday PE benign. NIHSS-0. Neuro nonfocal. Cerebellar intact. Headache likely typical headache, unlikely intracranial hemorrhage, posterior stroke, meningitis. Nausea likely secondary to anxiety. Plan at this time medical clearance evaluation by the behavioral health team. Critical Care Time Critical Care Time Critical Care Time: No Discharge Plan Discharge Clinical Impression: Chronic schizophrenia, Suicidal ideation, Depression, Acute anxiety Patient Disposition: Still a Patient Prescriptions: No Action albuterol sulfate [ProAir HFA] 90 mcg/actuation HFA aerosol inhaler 2 puff inhalation Q4-6H PRN (Reason: shortness of breath or wheezing) Qty: 8.5 0RF pantoprazole 40 mg tablet,delayed release (DR/EC) 1 tab PO QAM nicotine 21 mg/24 hr Patch 24 Hour 21 mg transdermal DAILY PRN (Reason: nicotine cravings) 28 Days Qty: 28 0RF albuterol sulfate [Ventolin HFA] 90 mcg/actuation Hfa Aerosol Inhaler 2 puff inhalation RQ4H PRN (Reason: Shortness Of Breath) 30 Days Qty: 6.7 0RF atorvastatin 40 mg tablet 1 tab PO BEDTIME quetiapine 300 mg tablet 1 tab PO BEDTIME quetiapine 100 mg tablet 1 tab PO QAM mirtazapine 30 mg tablet 1 tab PO BEDTIME ferrous sulfate [FeroSul] 325 mg (65 mg iron) tablet 1 tab PO BEDTIME verapamil 100 mg capsule, [address] 1 cap PO BEDTIME clonazepam 1 mg tablet 1 tab PO DAILY PRN (Reason: anxiety) tamsulosin 0.4 mg capsule 1 cap PO DAILY fluticasone propionate [Flovent HFA] 220 mcg/actuation HFA aerosol inhaler 2 puff INHALATION BID Interventions: Cook-Suicide Risk Severity Scale Last Done: 06/20/22 18:35
[2022-06-20 20:02] LABS: Ethanol < 10 mg/dL
[2022-06-20 20:11] LABS: Acetaminophen LAB < 1 mcg/mL (<30); Alanine Aminotransferase 14 U/L (0-40); Albumin Level 3.9 g/dL (3.5-5.0); Alkaline Phosphatase 106 U/L (39-117); Anion Gap 11 (12-20); Aspartate Amino Transferase 18 U/L (5-37); Bilirubin Total 0.5 mg/dL (0.0-1.0); Blood Urea Nitrogen 9 mg/dL (9-16); Calcium 9.2 mg/dL (8.4-10.2); Carbon Dioxide 29 mmol/L (22-29); Chloride 107 mmol/L (96-108); Creatinine Clr Calc Pharmacy 70.1; Estimated Glomerular Filt Rate > 60; Glucose Random 113 mg/dL (60-115); Potassium 4.2 mmol/L (3.3-5.1); Salicylate < 5.0 mg/dL (15-30); Sodium 143 mmol/L (135-145); Total Protein 6.5 g/dL (6.5-8.0)
--- NOTE | 2022-06-20 20:46 | ECG_ITS ---
Test Reason : MED CLEARANCE Blood Pressure : / mmHG Vent. Rate : 082 BPM Atrial Rate : 082 BPM P-R Int : 162 ms QRS Dur : 092 ms QT Int : 382 ms P-R-T Axes : 085 064 081 degrees QTc Int : 446 ms Normal sinus rhythm Normal ECG When compared with ECG of 02-JUN-2022 23:57, No significant change was found Referred By: Karyn Link Electronically Signed By:AKASH SUAREZ MD
[2022-06-20 20:49] VITALS: BP 101/66; PULSE 99; RESP 17
[2022-06-20] MEDS: QUEtiapine Fumarate 300 MG TABLET PO (20:50)
[2022-06-20] MEDS: Mirtazapine 30 MG TABLET PO (20:50)
[2022-06-20] MEDS: Albuterol Sulfate 90 MCG 8 GM INHALER 2 PUFF INHALE (20:50)
[2022-06-20] MEDS: clonazePAM 1 MG TABLET PO (20:50)
[2022-06-20] MEDS: Atorvastatin Calcium 40 MG TABLET PO (20:50)
[2022-06-20] MEDS: Ferrous Sulfate 324 MG TABLET.DR PO (20:50)
[2022-06-20 21:01] LABS: Appearance Urine Clear; Color Urine Yellow; Glucose Urine UA Negative (Negative); Leukocyte Esterase Urine Trace (Negative); Nitrite Urine Negative (Negative); UMIC TRIGGER UA YES; Urine Blood Negative (Negative); Urine Ketones Trace mg/dL (Negative); Urine Protein Trace mg/dL (Neg-Trace)
[2022-06-20 21:25] LABS: B Type Natriuretic Peptide < 10 pg/mL (<100)
[2022-06-20 21:37] LABS: Bacteria Urine None Seen (None Seen); Hyaline Casts Urine 0-2 /LPF (0-2); Squamous Epithelial Cell Urine 0-2 /HPF (0-2); WBC Urine 0-5 /HPF (0-5)
--- NOTE | 2022-06-21 05:49 | PC.NURSE ---
Patient slept through the night, no distress observed/reported, behavior this visit pleasant and non concerning, patient was assessed by [facility] in the community, disposition is section 12 inpatient bed search, medication compliant, appetite is great and elimination intact, VSS, will continue to monitor.
--- NOTE | 2022-06-21 07:04 | PC.NURSE ---
patient appears to remain asleep at present respirations are even and unlabored patient appears in no distress
[2022-06-21] MEDS: Fluticasone Propionate 250 MCG BLST.W.DEV 2 PUFF INHALE (09:15)
[2022-06-21] MEDS: Tamsulosin HCL 0.4 MG CAPSULE PO (09:15)
[2022-06-21 09:16] VITALS: BP 119/71; PULSE 97; RESP 12; TEMP 36.7; O2SAT 95
[2022-06-21] MEDS: Omeprazole 20 MG CAPSULE.DR PO (09:21)
[2022-06-21] MEDS: QUEtiapine Fumarate 100 MG TABLET PO (09:21)
[2022-06-21] MEDS: clonazePAM 1 MG TABLET PO (12:15)
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
[2022-06-21] MEDS: Baclofen 10 MG TABLET PO (14:53)
[2022-06-21] MEDS: Topiramate 25 MG TABLET 50 MG PO (14:53)
--- NOTE | 2022-06-21 15:19 | MHC.CARE ---
Pt was seen by hospital psychiatry and determined to not meet criteria for inpt psychiatric level of care. Pt will be discharged with referrals for [facility] and [facility]. Contact information for both programs has been added to discharge instructions.
--- NOTE | 2022-06-21 17:40 | MHC.CARE ---
Pt accepted to [facility] Provider updated, section 12a for transport and ED worksheet both completed and placed in pt's chart, chart given to ED membership secretary to request ambulance for transport.
== END 2022-06-21 20:13 ==
PROVIDERS: Physician Assistant; Emergency Provider Emergency Medicine
DX: F20.9 Schizophrenia, unspecified (principal); R45.851 Suicidal ideations; F33.9 Major depressive disorder, recurrent, unspecified; F14.180 Cocaine abuse with cocaine-induced anxiety disorder; D64.9 Anemia, unspecified; R06.02 Shortness of breath; R51.9 Headache, unspecified; Z20.822 Contact with and (suspected) exposure to COVID-19; J45.909 Unspecified asthma, uncomplicated; F14.10 Cocaine abuse, uncomplicated; F12.20 Cannabis dependence, uncomplicated; F11.10 Opioid abuse, uncomplicated; F17.210 Nicotine dependence, cigarettes, uncomplicated; Z79.02 Long term (current) use of antithrombotics/antiplatelets; Z79.899 Other long term (current) drug therapy
CPT/HCPCS: 36415; 71045; 80053; 80143; 80179; 80307; 81001; 81003; 82077; 83880; 85025; 87635; 93005; 99285

== ENCOUNTER 2022-06-26 10:20 | Emergency (ER) | payer MEDICAID, SELFPAY ==
[2022-06-26] VITALS (7 sets, daily range): BP systolic 95–123; BP diastolic 64–74; PULSE 82–92; RESP 17–19; TEMP 36.5–36.6; O2SAT 91–98; BMI 23.6
--- NOTE | ~2022-06-26 | US_ITS ---
EXAMINATION: US ABDOMEN LIMITED CLINICAL INFORMATION: Epigastric pain and right upper quadrant tenderness. COMPARISON: CT abdomen pelvis 04/06/2022, CT angiogram chest abdomen pelvis 06/17/2021 TECHNIQUE: Real-time imaging of the right upper quadrant abdominal viscera. FINDINGS: PANCREAS: Unremarkable. LIVER: Liver is mildly enlarged measuring at least 17 cm in span. The liver contour is normal. Parenchymal echogenicity is normal. No focal hepatic lesion. There is no intrahepatic biliary duct dilatation seen. GALLBLADDER: Surgically absent. COMMON BILE DUCT: Normal in caliber measuring 0.3 cm in diameter. RIGHT KIDNEY: No hydronephrosis The kidney measures 10.5 cm in maximum dimension. Multiple nonobstructing stones are seen measuring up to 4 mm in the right midpole. A 2.4 cm cystic lesion in the right midpole demonstrates a possible thickened septation versus mural nodule measuring 5 mm. FREE FLUID: None. US/US abdomen limited IMPRESSION: A 2.4 cm cystic lesion in the right kidney demonstrates a possible thickened septation versus mural nodule measuring 5 mm, not seen on prior and further evaluation with CT renal mass protocol is recommended for definitive characterization. Nonobstructing right renal stones measuring up to 4 mm. No hydronephrosis. Liver is mildly enlarged measuring at least 17 cm in span. Status post cholecystectomy with no intra or extrahepatic biliary duct dilatation.
--- NOTE | ~2022-06-26 | CT_ITS ---
EXAMINATION: CT ANGIOGRAM HEAD CT ANGIOGRAM NECK CLINICAL INFORMATION: Reason for Exam MARTINES, dizzy COMPARISON: CTA head and neck 01/26/2022 TECHNIQUE: Initial noncontrast electric range assembler imaging of the head and neck was performed. Noncontrast head CT was also performed. Test bolus sequences followed by intravenous administration 70 mL of Omnipaque 350. Helical imaging was performed in the axial plane from the aortic arch to the skull vertex. Delayed postcontrast imaging of the head was also performed. The data was processed at the ct technologist's workstation for generation of MIP sequences. Angled MIPs and volume rendered reformatted images were also generated at an offline 3D workstation. Stenoses are assessed in accordance with NASCET criteria unless otherwise indicated. DLP: 2116 mGy-cm This CT examination was performed using dose optimization techniques as appropriate, variously including the following: *Automated exposure control. *Adjustment of mA and/or kV according to patient size (this includes techniques or standardized protocols for targeted exams where dose is matched to indication/reason for exam; i.e. extremities or head). *Use of iterative reconstruction technique. FINDINGS: CT Head: There is no evidence of acute intracranial hemorrhage or edematous territorial infarction. There is no abnormal attenuation within the brain parenchyma. Hood-white matter differentiation is preserved. The ventricles are normal in size and configuration. No evidence for obstructive hydrocephalus. No abnormal mass effect or midline shift. No extra-axial fluid collections. No pathologic intra-axial enhancement or regional oligemia. No acute soft tissue or osseous abnormalities. Mild right maxillary sinus mucosal thickening. CT Neck: The thyroid gland and remaining cervical soft tissues are within normal limits. Moderate degenerative changes of the cervical spine. CT Upper Chest: Moderate pulmonary emphysema. The upper mediastinum are within normal limits. Neck CTA: Aortic Arch: Normal contour and caliber. Classic 3 vessel branching pattern of the aortic arch. Great Vessel Origins: No significant stenosis of the branch origins. Right Common Carotid Artery: No focal stenosis or occlusion. Cervical Right Internal Carotid Artery: Normal opacification without focal stenosis or occlusion. Left Common Carotid Artery: No focal stenosis or occlusion. Cervical Left Internal Carotid Artery: Normal opacification without focal stenosis or occlusion. Cervical Right Vertebral Artery: No focal stenosis or occlusion. Cervical Left Vertebral Artery: No focal stenosis or occlusion. Brain CTA: Intracranial Internal Carotid Arteries: Calcific atherosclerotic disease of the intracranial internal carotid arteries without occlusion or flow-limiting stenosis. Right Anterior Cerebral Artery: Normal A1 segment. Normal opacification of the distal SRIDHAR segments. Left Anterior Cerebral Artery: Normal A1 segment. Normal opacification of the distal SRIDHAR segments. Anterior Communicating Artery: Normal. Right Middle Cerebral Artery: Normal M1 segment of the MCA without focal stenosis or occlusion. Normal arborization of the distal segments. Left Middle Cerebral Artery: Normal M1 segment of the MCA without focal stenosis or occlusion. Normal arborization of the distal segments. Right Vertebral Artery: Normal V4 segment. Left Vertebral Artery: Normal V4 segment. Basilar Artery: Normal without focal stenosis or occlusion. Normal appearance of the proximal superior cerebellar arteries. Right Posterior Cerebral Artery: Normal P1 segment. Normal opacification of the distal EMPLOYMENT ASSISTANT segments. Left Posterior Cerebral Artery: The P1 segment is diminutive. origin of the EMPLOYMENT ASSISTANT with robust opacification of the posterior communicating artery. Normal opacification of the distal EMPLOYMENT ASSISTANT segments. Normal opacification of the superior sagittal, straight, transverse, and sigmoid sinuses. CT/CT angio head neck IMPRESSION: 1. No acute intracranial abnormality including hemorrhage, mass effect, hydrocephalus, or acute territorial edematous infarction. 2. No arterial high grade stenosis or large vessel occlusion in the head or neck.
--- NOTE | ~2022-06-26 | XR_ITS ---
EXAMINATION: XR CHEST CLINICAL INFORMATION: Chest pain. COMPARISON: 06/20/2022 chest radiograph. TECHNIQUE: Frontal view of the chest was obtained. FINDINGS: No significant abnormality is noted involving the heart, lungs, mediastinum, bony thorax or soft tissues. XR/XR chest 1V IMPRESSION: No acute cardiopulmonary process.
--- NOTE | 2022-06-26 10:48 | PC.NURSE ---
mikael chou to fax sect 12 to our facility ([facility]
--- NOTE | 2022-06-26 11:03 | ED_ITS ---
HPI - Chest Pain General Chief Complaint: Chest Pain Stated Complaint: CHEST PAIN Time Seen by Provider: 06/26/22 10:51 Source: patient and EMS Mode of arrival: EMS History of Present Illness HPI narrative: 57-year-old male with a past medical history of anxiety, asthma, substance abuse disorder, depression, COPD, nicotine dependence, presenting to the ED from [facility] complaining of sudden onset chest pain at 03:00 waking him up from sleep. Pain has been constant since onset. Reports associated SOB, headache beginning around 08:00 with mild blurry vision and room spinning dizziness worse with position changes. Reports history of migraines in the past. MARTINES not maximal at onset. Denies taking anticoagulation, head trauma/ injury or fall, weakness, abdominal pain, nausea / vomiting, numbness /tingling. Given 324 ASA by EMS MD complaint: chest pain Onset (ago): hour(s) Related Data Home Medications Medication Instructions Recorded Confirmed pantoprazole 40 mg tablet,delayed 1 tab PO QAM 04/04/22 06/20/22 release atorvastatin 40 mg tablet 1 tab PO BEDTIME 06/20/22 06/20/22 clonazepam 1 mg tablet 1 tab PO DAILY PRN anxiety 06/20/22 06/20/22 ferrous sulfate 325 mg (65 mg 1 tab PO BEDTIME 06/20/22 06/20/22 iron) tablet (FeroSul) fluticasone propionate 220 2 puff inhalation BID 06/20/22 06/20/22 mcg/actuation HFA aerosol inhaler (Flovent HFA) mirtazapine 30 mg tablet 1 tab PO BEDTIME 06/20/22 06/20/22 quetiapine 100 mg tablet 1 tab PO QAM depressive disorder 06/20/22 06/20/22 quetiapine 300 mg tablet 1 tab PO BEDTIME depressive 06/20/22 06/20/22 disorder tamsulosin 0.4 mg capsule 1 cap PO DAILY 06/20/22 06/20/22 verapamil 100 mg capsule 24hr 1 cap PO BEDTIME 06/20/22 06/20/[address],ext.release Previous Rx's Medication Instructions Recorded albuterol sulfate 90 mcg/actuation 2 puff inhalation RQ4H PRN 04/10/22 aerosol inhaler (Ventolin HFA) Shortness Of Breath 30 days #6.7 grams nicotine 21 mg/24 hr daily 21 mg transdermal DAILY PRN 04/10/22 transdermal patch nicotine cravings 28 days #28 ea albuterol sulfate 90 mcg/actuation 2 puff inhalation Q4-6H PRN 06/03/22 aerosol inhaler (ProAir HFA) shortness of breath or wheezing #8.5 grams kvkthnuchj-mqssmypnvxurc-gwptrryo 1 cap PO Q4-6H PRN headache #14 06/26/22 50 mg-300 mg-40 mg capsule caps (Fioricet) Allergies Allergy/AdvReac Type Severity Reaction Status Date / Time ibuprofen Allergy Intermediate Stomach Verified 05/30/22 03:07 Upset penicillin V Allergy Intermediate rash Verified 05/30/22 03:07 Review of Systems Review of Systems: Constitutional: No Fever, No Chills, No Fatigue, No Malaise ENT/Mouth: No Ear Pain, No Nasal Congestion, No sore throat, No Rhinorrhea, No Swallowing Difficulty Eyes: No Eye Pain, No Swelling, No Redness, No Discharge, + Vision Changes Cardiovascular: + Chest Pain, + SOB, No Dyspnea on Exertion, No Orthopnea, No Edema, No Palpitations Respiratory: + Cough, No Sputum, No Wheezing, No Dyspnea Gastrointestinal: No Nausea, No Vomiting, No Diarrhea, No Constipation, No Abdominal pain Genitourinary: No Dysuria, No Urinary Frequency, No Hematuria, No Urinary Incontinence/retention, No Flank Pain Musculoskeletal: No joint pain, No Myalgias, No Joint Swelling Skin: No Skin Lesions, No rash Neuro: No Weakness, No Numbness, No Paresthesias, No Loss of Consciousness, + Dizziness, + Headache Yes all other systems are reviewed and are negative Constitutional: Constitutional: Reports as per HPI Neurologic: Denies Abnormal speech present [facility] Past Medical History Attestation statement: The following information was validated with the patient. Medical History Anxiety Asthma Cannabis use disorder, moderate, dependence Cocaine use disorder Depression Emphysema of lung Nicotine dependence Opioid use disorder Pulmonary nodules Surgical History Hx of cholecystectomy Social History Social History Household Members: None Housing: Apartment Do you presently have visiting nurse or other home services: Yes Unable to assess alcohol history related to: Unknown Alcohol intake: never Patient Tobacco Use Status: Tobacco use Unknown Tobacco use type: Cigarette Cigarettes Per Day: 4 Smoked in Last 30 Days: No e-Cigarette/Vaping Use: Never Used Second Hand Smoke Exposure: No Substance Use Type: Crack/Cocaine and Marijuana Advance Directives: No service: No Sexual orientation: Straight/Heterosexual Physical Exam Vital Signs: Vital Signs: Last Vital Signs Temp 97.7 F 06/26/22 11:49 Pulse 86 06/26/22 11:49 Resp 17 06/26/22 11:49 BP 95/66 06/26/22 11:48 Pulse Ox 96 06/26/22 11:49 O2 Del Method 06/26/22 11:49 BMI result Body Mass Index 23.6 Const: General: cooperative, healthy appearing and no acute distress Orientation/consciousness: patient oriented x3 Limitations: no limitations HEENT: Head: Yes normal to inspection and Yes atraumatic Ears: hearing grossly normal bilaterally General nose exam: Normal external nose present Face and sinus: Yes normal facial exam Throat: Yes posterior oropharynx normal Eyes: General: appearance normal, both eyes and all related structures Pupils: Equal, round and reactive pupils present EOM: EOMs intact bilaterally Neck: Neck: Yes normal visual inspection and Yes no meningeal signs Resp: Effort & Inspection: normal respiratory effort and no respiratory distress Auscultation: clear to auscultation bilaterally, no crackles, no rales, no rhonchi and no wheezes Cardio: Rate: regular rate Heart sounds: S1 normal heart sound present and S2 normal heart sound present GI: Inspection: Yes normal to inspection Palpation (GI): Soft to palpation, Tenderness to palpation present (GI) in the epigastrum and in the RUQ; with no rebound tenderness, no guarding and not rigid Skin: Rashes: no rashes Wounds: no wounds Neuro: General: patient oriented x3, tone normal, moves all extremities, no meningeal signs, no focal motor deficits and CN's II-XI intact bilaterally Cranial nerves: Yes CN's II-XII intact bilaterally and Yes Equal, round and reactive pupils present Cognition (Neuro): normal cognition Speech: No Abnormal speech present Gait exam (Neuro): Normal gait present Motor exam (neuro): 5/5 motor strength present throughout and no tremor noted Extrem: General: Yes normal to inspection and Yes no pedal edema Course Course Course Narrative: -1300-- no leukocytosis. H&H stable. Initial troponin negative. Labs otherwi se reassuring - UA negative. Tox screen positive for cocaine and THC. XR chest 1V IMPRESSION: No acute cardiopulmonary process. US abdomen limited IMPRESSION: A 2.4 cm cystic lesion in the right kidney demonstrates a possible thickened septation versus mural nodule measuring 5 mm, not seen on prior and further evaluation with CT renal mass protocol is recommended for definitive characterization. ? Nonobstructing right renal stones measuring up to 4 mm. No hydronephrosis. ? Liver is mildly enlarged measuring at least 17 cm in span. ? Status post cholecystectomy with no intra or extrahepatic biliary duct dilatation. > Will obtain CT renal mass protocol for further evaluation. >> Unable to obtain CT renal mass protocol in the ED due to needed CTA head and neck & contrast timing, the patient will need on outpatient basis, this was discussed with Turkish interpreting - troponin x2 negative CT angio head neck IMPRESSION: 1.? No acute intracranial abnormality including hemorrhage, mass effect, hydrocephalus, or acute territorial edematous infarction. ? 2.? No arterial high grade stenosis or large vessel occlusion in the head or neck. ? > re-evaluation patient reports continued headache s/p contrast dye administration. Denies dizziness or chest pain. Will give Toradol and re-evaluate -1545-- on re-evaluation patient reports symptomatic improvement, asymptomatic at present, ambulated in the ED with steady gait. Results discussed with patient including worrisome signs and symptoms and strict return precautions, and when to return to the emergency department. They verbalized understanding and feel safe for discharge at this time. Medications Administered Discontinued Medications Generic Name Dose Route Start Last Admin Trade Name Alvarado PRN Reason Stop Dose Admin Acetaminophen 650 mg 06/26/22 11:03 06/26/22 11:39 Acetaminophen 325 Mg Tablet PO 06/26/22 11:04 650 mg ONCE ONE Administration Acetaminophen/Butalbital/Caffeine 1 tab 06/26/22 14:03 06/26/22 14:27 Butalb/Acetamin/Caff 50/325/40 Tablet PO 06/26/22 14:04 1 tab ONCE ONE Administration Albuterol/Ipratropium 3 ml 06/26/22 11:03 06/26/22 11:19 Albuterol/Iprat 2.5/0.5mg 3 Ml Ampul.Neb INHALE 06/26/22 11:04 3 ml ONCE ONE Administration Sodium Chloride 1,000 mls @ 999 mls/hr 06/26/22 11:15 06/26/22 15:31 Ns IV 06/26/22 12:15 Infused .Q1H1M ADRIEN Infusion Iohexol 70 ml 06/26/22 13:52 06/26/22 13:53 Iohexol 350 Mg/Ml 100 Ml Infus..Btl IV 06/26/22 13:53 70 ml ONCE ONE Administration Ketorolac Tromethamine 15 mg 06/26/22 14:59 06/26/22 15:10 Ketorolac Tromethamine 15 Mg/Ml Vial IVPUSH 06/26/22 15:00 15 mg ONCE ONE Administration Meclizine HCl 25 mg 06/26/22 11:03 06/26/22 11:37 Meclizine Hcl 25 Mg Tablet PO 06/26/22 11:04 25 mg ONCE ONE Administration Metoclopramide HCl 10 mg 06/26/22 11:03 06/26/22 11:39 Metoclopramide Hcl 10 Mg/2 Ml Vial IVPUSH 06/26/22 11:04 10 mg ONCE ONE Administration Ondansetron HCl 4 mg 06/26/22 11:03 06/26/22 11:37 Ondansetron Hcl 4 Mg/2 Ml Vial IVPUSH 06/26/22 11:04 4 mg ONCE ONE Administration Medical Decision Making Medical Decision Making MDM Narrative: 57-year-old male with a past medical history of anxiety, asthma, substance abuse disorder, depression, COPD, nicotine dependence, presenting to the ED from [facility] complaining of sudden onset chest pain at 03:00 waking him up from sleep w/associated SOB, headache beginning around 08:00 with mild blurry vision and room spinning dizziness worse with position changes. On exam vital signs stable, NAD, nontoxic appearing, physical exam as above, lungs CTA, abdomen soft with RUQ/ epigastric tenderness, no focal neuro deficits. Concern for ACS vs BPPV vs migraine headache vs ?ICH or CVA. Concern for pancreatitis vs cholecystitis/lithiasis. Lower suspicion for CVT or dissection. Low concern for appendicitis/diverticulitis or infectious etiology plan: EKG, labs, CXR, CTA head and neck, orthostatics, IVF, meclizine, Zofran, Tylenol, abdomen ultrasound, re-evaluate Differential Diagnoses: Differential diagnosis (ad above) Lab Attestation: I reviewed the patient's lab results. Discharge Plan Discharge Clinical Impression: Chest pain, Headache Patient Disposition: Xfer Psychiatric Hosp Transfer Details: Joan Smith Instructions: Chest Pain (DC), Acute Headache (ED) Additional Instructions: your blood work was reassuring today in the emergency department. The CT scan of her head and neck was unremarkable. The ultrasound of your abdomen showed a cystic lesion on her right kidney, it is recommended to have further evaluation with a CT renal mass protocol outpatient, call your primary care doctor in regards to this Fioricet is for headaches, take as needed if her symptoms persist or worsen, you have weakness, vision change/loss, shortness of breath return to the emergency department bronson an?lisis de smita fue tranquilizador hoy en el departamento de emergencias. La tomograf?a computarizada de bronson monet y srinath fue normal. La ecograf?a de bronson abdomen mostr? tereza lesi?n qu?stica en el ri??n derecho, se recomienda realizar tereza evaluaci?n adicional con un protocolo de masa renal por tomograf?a computarizada michelle paciente ambulatorio, llame a bronson m?dico de atenci?n primaria con respecto a esto Fioricet es para jay de monet, t?peña seg?n sea necesario si kamala s?ntomas persisten o empeoran, tiene debilidad, cambio/p?rdida de la visi?n, dificultad para respirar, regrese al departamento de emergencias Prescriptions: New fyhncytcvi-zmawfnbpfyqhl-[id number] [Fioricet] 50-300-40 mg capsule 1 cap PO Q4-6H PRN (Reason: headache) Qty: 14 0RF No Action albuterol sulfate [ProAir HFA] 90 mcg/actuation HFA aerosol inhaler 2 puff inhalation Q4-6H PRN (Reason: shortness of breath or wheezing) Qty: 8.5 0RF pantoprazole 40 mg tablet,delayed release (DR/EC) 1 tab PO QAM nicotine 21 mg/24 hr Patch 24 Hour 21 mg transdermal DAILY PRN (Reason: nicotine cravings) 28 Days Qty: 28 0RF albuterol sulfate [Ventolin HFA] 90 mcg/actuation Hfa Aerosol Inhaler 2 puff inhalation RQ4H PRN (Reason: Shortness Of Breath) 30 Days Qty: 6.7 0RF atorvastatin 40 mg tablet 1 tab PO BEDTIME quetiapine 300 mg tablet 1 tab PO BEDTIME quetiapine 100 mg tablet 1 tab PO QAM mirtazapine 30 mg tablet 1 tab PO BEDTIME ferrous sulfate [FeroSul] 325 mg (65 mg iron) tablet 1 tab PO BEDTIME verapamil 100 mg capsule, [address] 1 cap PO BEDTIME clonazepam 1 mg tablet 1 tab PO DAILY PRN (Reason: anxiety) tamsulosin 0.4 mg capsule 1 cap PO DAILY fluticasone propionate [Flovent HFA] 220 mcg/actuation HFA aerosol inhaler 2 puff INHALATION BID Referrals: Vince Doran MD [Primary Care Provider] - 3 days Print Language: Turkish
--- NOTE | 2022-06-26 11:03 | ECG_ITS ---
Test Reason : CHEST PAIN Blood Pressure : / mmHG Vent. Rate : 088 BPM Atrial Rate : 088 BPM P-R Int : 160 ms QRS Dur : 102 ms QT Int : 374 ms P-R-T Axes : 080 053 079 degrees QTc Int : 452 ms Normal sinus rhythm Incomplete right bundle branch block Nonspecific T wave abnormality Abnormal ECG When compared with ECG of 20-JUN-2022 21:10, No significant change was found Referred By: Andra Carlson Electronically Signed By:FREDI LACKEY
[2022-06-26] MEDS: Albuterol/Iprat 2.5/0.5MG 3 ML AMPUL.NEB INHALE (11:19)
[2022-06-26 11:22] LABS: Basophils Percent Auto 0.6 % (0-2); Eosinophils Absolute Auto 0.3 X10*3/uL (0.0-0.4); Eosinophils Percent Auto 5.2 % (0-4); Hematocrit 34.6 % (42.0-52.0); Hemoglobin 11.7 g/dl (14.0-18.0); Imm Gran Abs Auto 0.01 X10*3/uL (0.00-0.03); Imm Gran Pct Auto 0.2 % (0.0-0.4); Lymphocytes Absolute Auto 1.3 X10*3/uL (1.2-4.9); Lymphocytes Percent Auto 27.7 % (20-40); MANUAL DIFF FLAG NO; Mean Corpuscular HGB Conc 33.8 g/dl (31.0-36.0); Mean Corpuscular Hemoglobin 30.3 pg (27.0-33.0); Mean Corpuscular Volume 89.6 fL (80.0-98.0); Mean Platelet Volume 8.7 fL (9.4-12.4); Monocytes Absolute Auto 0.5 X10*3/uL (0.1-1.2); Monocytes Percent Auto 9.7 % (2-11); Neutrophils Absolute Auto 2.7 x10*3/uL (2.0-8.3); Neutrophils Percent Auto 56.6 % (45-73); Platelet Count 346 X10*3/uL (160-400); Red Blood Count 3.86 X10*6/uL (4.60-5.80); Red Cell Distribution Width 14.3 % (11.0-16.0); White Blood Count 4.8 X10*3/uL (4.8-10.8)
[2022-06-26 11:27] LABS: Prothrombin Time 11.1 SEC (10.0-13.1)
[2022-06-26] MEDS: ondansetron HCL 4 MG/2 ML VIAL IVPUSH (11:37)
[2022-06-26] MEDS: Meclizine HCl 25 MG TABLET PO (11:37)
[2022-06-26 11:39] LABS: Alanine Aminotransferase 10 U/L (0-40); Albumin Level 3.5 g/dL (3.5-5.0); Alkaline Phosphatase 77 U/L (39-117); Anion Gap 12 (12-20); Aspartate Amino Transferase 12 U/L (5-37); Bilirubin Direct < 0.2 mg/dL (0.0-0.5); Bilirubin Total < 0.2 mg/dL (0.0-1.0); Blood Urea Nitrogen 16 mg/dL (9-16); Calcium 8.9 mg/dL (8.4-10.2); Carbon Dioxide 24 mmol/L (22-29); Chloride 108 mmol/L (96-108); Creatinine Clr Calc Pharmacy 88.8; Estimated Glomerular Filt Rate > 60; Glucose Random 103 mg/dL (60-115); Potassium 4.5 mmol/L (3.3-5.1); Sodium 139 mmol/L (135-145); Total Protein 5.7 g/dL (6.5-8.0)
[2022-06-26] MEDS: Acetaminophen 325 MG TABLET 650 MG PO (11:39)
[2022-06-26] MEDS: 0.9 % Sodium Chloride 1,000 ML 999 ML IV (11:39)
[2022-06-26] MEDS: Metoclopramide HCl 10 MG/2 ML VIAL IVPUSH (11:39)
[2022-06-26 11:41] LABS: Lipase 48 U/L (8-78)
[2022-06-26 11:45] LABS: Troponin-I High Sensitivity < 3.5 ng/L (<3.5-35.0)
[2022-06-26 11:46] LABS: COVID-19 Test Negative (Negative); IDNOW Serial# 16C4AD1C
[2022-06-26 11:47] LABS: IDNOW Serial# BCCEAD1C; Influenza A Negative (Negative); Influenza B2 Negative (Negative)
[2022-06-26 12:01] LABS: Appearance Urine Cloudy; Color Urine Yellow; Glucose Urine UA Negative (Negative); Leukocyte Esterase Urine Negative (Negative); Nitrite Urine Negative (Negative); PH 8.5 (5.0-9.0); Urine Blood Negative (Negative); Urine Ketones Negative (Negative); Urine Protein Negative (Neg-Trace)
[2022-06-26 12:15] LABS: Amphetamine Screen Urine Not Detected (Not Detect); Barbiturates, Urine Not Detected (Not Detect); Benzodiazepines Screen Urine Not Detected (Not Detect); Cannabinoid Screen Urine POSITIVE (Not Detect); Cocaine Screen Urine POSITIVE (Not Detect); Fentanyl, urine Not Detected (Not Detect); Opiate Screen Urine Not Detected (Not Detect); Phencyclidine Screen Urine Not Detected (Not Detect)
[2022-06-26] MEDS: iohexoL 350 MG/ML 100 ML INFUS..BTL 70 ML IV (13:53)
[2022-06-26] MEDS: Butalb/Acetamin/Caff 50/325/40 TABLET 1 TAB PO (14:27)
[2022-06-26 14:43] LABS: Troponin-I High Sensitivity < 3.5 ng/L (<3.5-35.0)
[2022-06-26] MEDS: Ketorolac Tromethamine 15 MG/ML VIAL IVPUSH (15:10)
--- NOTE | 2022-06-26 15:11 | PC.NURSE ---
PT AMBULATING INDEPENDENTLY AND STEADILY AT THIS TIME, WITH NO COMPLAINTS OF DIZZINESS. STATES CP NOW RESOLVED.
== END 2022-06-26 19:18 ==
PROVIDERS: Physician Assistant; Emergency Provider Internal Medicine; PCP Internal Medicine
DX: R07.89 Other chest pain (principal); F14.19 Cocaine abuse with unspecified cocaine-induced disorder; R51.9 Headache, unspecified; F17.210 Nicotine dependence, cigarettes, uncomplicated; Z20.822 Contact with and (suspected) exposure to COVID-19; Z79.899 Other long term (current) drug therapy; Z71.6 Tobacco abuse counseling
CPT/HCPCS: 36415; 70496; 70498; 71045; 76705; 80048; 80076; 80307; 81003; 83690; 83735; 84484; 85025; 85610; 87502; 87635; 93005; 94640; 96361; 96374; 96375; 99285; J1885; J2405; J2765; Q9967

== ENCOUNTER 2022-06-29 03:02 | Emergency (ER) | payer MEDICAID, SELFPAY ==
[2022-06-29] VITALS (8 sets, daily range): BP systolic 105–133; BP diastolic 67–81; PULSE 78–90; RESP 17–28; TEMP 36.6–36.7; O2SAT 95–99; BMI 23.5
--- NOTE | ~2022-06-29 | XR_ITS ---
EXAMINATION: XR CHEST CLINICAL INFORMATION: Dyspnea. COMPARISON: Chest radiograph 06/26/2022. TECHNIQUE: Frontal view of the chest was obtained. FINDINGS: Normal appearance of the cardiomediastinal silhouette. Stable diaphragmatic eventrations in the mid chest. Unchanged mild interstitial thickening bilaterally. No new focal airspace opacity, pleural effusion or pneumothorax. No acute osseous abnormalities. XR/XR chest 1V IMPRESSION: 1. No significant change when compared to 06/26/2022. 2. No new focal airspace opacity.
--- NOTE | 2022-06-29 03:15 | ECG_ITS ---
Test Reason : SOB Blood Pressure : / mmHG Vent. Rate : 088 BPM Atrial Rate : 088 BPM P-R Int : 154 ms QRS Dur : 104 ms QT Int : 376 ms P-R-T Axes : 081 056 080 degrees QTc Int : 454 ms Normal sinus rhythm Incomplete right bundle branch block Borderline ECG When compared with ECG of 26-JUN-2022 10:37, No significant change was found Referred By: Generic ED Physician Electronically Signed By:FREDI LACKEY
[2022-06-29 03:31] LABS: Basophils Percent Auto 0.8 % (0-2); Eosinophils Absolute Auto 0.3 X10*3/uL (0.0-0.4); Hematocrit 35.6 % (42.0-52.0); Imm Gran Abs Auto 0.02 X10*3/uL (0.00-0.03); Imm Gran Pct Auto 0.4 % (0.0-0.4); Lymphocytes Absolute Auto 2.2 X10*3/uL (1.2-4.9); MANUAL DIFF FLAG NO; Mean Corpuscular HGB Conc 33.7 g/dl (31.0-36.0); Mean Corpuscular Hemoglobin 30.2 pg (27.0-33.0); Mean Corpuscular Volume 89.4 fL (80.0-98.0); Mean Platelet Volume 8.8 fL (9.4-12.4); Monocytes Absolute Auto 0.5 X10*3/uL (0.1-1.2); Monocytes Percent Auto 9.7 % (2-11); Neutrophils Absolute Auto 1.8 x10*3/uL (2.0-8.3); Neutrophils Percent Auto 37.1 % (45-73); Platelet Count 378 X10*3/uL (160-400); Red Blood Count 3.98 X10*6/uL (4.60-5.80); Red Cell Distribution Width 14.3 % (11.0-16.0); White Blood Count 4.8 X10*3/uL (4.8-10.8)
--- NOTE | 2022-06-29 03:33 | PC.NURSE ---
Addendum entered by Shaina Gusman 06/29/22 03:41: Pt is on continuous groundwater monitoring technician and it shows NSR. Original Note: Pt's V/S are stable, pt is on 2L o2 NC. Pt reports experiencing chest pain with tightness. Pt has diminished lung sound through out his lungs, pt is having a work of breathing. + skin turgor, no edema on his extremities, pt is diaphoretic and has a headache 10/10. IV inserted on his right forearm 20 G. Labs has been drawn, EKG has been documented. will continue to monitor.
[2022-06-29 03:35] LABS: VBG Base Excess 0.2 mmol/L; VBG HCO3 25 mmol/L (22-26); VBG pCO2 43 mmHg; VBG pH 7.37 (7.32-7.43); VBG pO2 160 mmHg
[2022-06-29 03:38] LABS: Venous Blood Gas Refer to POC result
[2022-06-29 03:49] LABS: Lactic Acid 0.5 mmol/L (0.5-2.0)
[2022-06-29 03:57] LABS: Anion Gap 11 (12-20); Blood Urea Nitrogen 16 mg/dL (9-16); Calcium 9.2 mg/dL (8.4-10.2); Carbon Dioxide 27 mmol/L (22-29); Chloride 107 mmol/L (96-108); Creatinine Clr Calc Pharmacy 85.3; Estimated Glomerular Filt Rate > 60; Glucose Random 87 mg/dL (60-115); Potassium 4.7 mmol/L (3.3-5.1); Sodium 140 mmol/L (135-145)
[2022-06-29 04:00] LABS: Troponin-I High Sensitivity < 3.5 ng/L (<3.5-35.0)
[2022-06-29 04:09] LABS: Influenza A PCR NEGATIVE (Negative); Influenza B PCR NEGATIVE (Negative); Resp Syncy Virus RNA Qual PCR NEGATIVE (Negative); SARS COV2 PCR INHOUSE NEGATIVE (Negative)
[2022-06-29] MEDS: diphenhydrAMINE HCL 50 MG/ML VIAL IVPUSH (05:10)
[2022-06-29] MEDS: Metoclopramide HCl 10 MG/2 ML VIAL IVPUSH (05:10)
--- NOTE | 2022-06-29 05:19 | PC.NURSE ---
Pt's V/S are stable, pt is on the pvc monitor and it shows NSR. Pt was medicated as order.
[2022-06-29 05:22] LABS: B Type Natriuretic Peptide < 10 pg/mL (<100)
--- NOTE | 2022-06-29 07:01 | ED_ITS ---
HPI - SOB/Dyspnea General Chief Complaint: Dyspnea Stated Complaint: SOB, 98%6L Time Seen by Provider: 06/29/22 06:26 Source: patient and diplomatic interpreter/translator Mode of arrival: ambulatory History of Present Illness HPI Narrative: 57-year-old male brought in by EMS from [facility] for complaints of shortness of breath that started approximately 02:00 in the morning and has been associated with headache, sweating as well as describing chest pain. Patient also has a history of COPD as well as polysubstance use. Related Data Home Medications Medication Instructions Recorded Confirmed pantoprazole 40 mg tablet,delayed 1 tab PO QAM 04/04/22 06/20/22 release atorvastatin 40 mg tablet 1 tab PO BEDTIME 06/20/22 06/20/22 clonazepam 1 mg tablet 1 tab PO DAILY PRN anxiety 06/20/22 06/20/22 ferrous sulfate 325 mg (65 mg 1 tab PO BEDTIME 06/20/22 06/20/22 iron) tablet (FeroSul) fluticasone propionate 220 2 puff inhalation BID 06/20/22 06/20/22 mcg/actuation HFA aerosol inhaler (Flovent HFA) mirtazapine 30 mg tablet 1 tab PO BEDTIME 06/20/22 06/20/22 quetiapine 100 mg tablet 1 tab PO QAM depressive disorder 06/20/22 06/20/22 quetiapine 300 mg tablet 1 tab PO BEDTIME depressive 06/20/22 06/20/22 disorder tamsulosin 0.4 mg capsule 1 cap PO DAILY 06/20/22 06/20/22 verapamil 100 mg capsule 24hr 1 cap PO BEDTIME 06/20/22 06/20/[address],ext.release Previous Rx's Medication Instructions Recorded albuterol sulfate 90 mcg/actuation 2 puff inhalation RQ4H PRN 04/10/22 aerosol inhaler (Ventolin HFA) Shortness Of Breath 30 days #6.7 grams nicotine 21 mg/24 hr daily 21 mg transdermal DAILY PRN 04/10/22 transdermal patch nicotine cravings 28 days #28 ea albuterol sulfate 90 mcg/actuation 2 puff inhalation Q4-6H PRN 06/03/22 aerosol inhaler (ProAir HFA) shortness of breath or wheezing #8.5 grams akfgrbohcl-luogdwrtlljoa-cyfdcmmi 1 cap PO Q4-6H PRN headache #14 06/26/22 50 mg-300 mg-40 mg capsule caps (Fioricet) Allergies Allergy/AdvReac Type Severity Reaction Status Date / Time ibuprofen Allergy Intermediate Stomach Verified 05/30/22 03:07 Upset penicillin V Allergy Intermediate rash Verified 05/30/22 03:07 Review of Systems Review of Systems: Pertinent positives and negatives as stated in HPI 10 point review of systems is otherwise negative. PMFSH Past Medical History Source: nursing notes reviewed Medical History Anxiety Asthma Cannabis use disorder, moderate, dependence Cocaine use disorder Depression Emphysema of lung Nicotine dependence Opioid use disorder Pulmonary nodules Surgical History Hx of cholecystectomy Social History Social History Household Members: None Housing: Apartment Do you presently have visiting nurse or other home services: Yes Unable to assess alcohol history related to: Unknown Alcohol intake: former Patient Tobacco Use Status: Tobacco use Unknown Tobacco use type: Cigarette Cigarettes Per Day: 4 Smoked in Last 30 Days: No e-Cigarette/Vaping Use: Never Used Second Hand Smoke Exposure: No Use of substances other than those prescribed or required for medical reasons: No Substance Use Type: Crack/Cocaine and Marijuana Advance Directives: No Advance Directives Information Provided: Yes service: No Sexual orientation: Straight/Heterosexual Physical Exam Vital Signs: Vital Signs: Last Vital Signs Temp 98.0 F 06/29/22 03:58 Pulse 87 06/29/22 07:25 Resp 18 06/29/22 07:25 BP 106/67 06/29/22 07:20 Pulse Ox 97 06/29/22 07:20 O2 Del Method 06/29/22 07:20 O2 Flow Rate 2 06/29/22 06:27 Oxygen Flow Rate 15 06/29/22 03:10 BMI result Body Mass Index 23.5 VITAL SIGNS: Reviewed. GENERAL: Well developed, well nourished, in no acute distress. HEAD: Normocephalic/atraumatic EYES: PERRLA, EOMI EARS: Ext canals without abnormality OROPHARYNX: no oral lesions noted, posterior pharynx clear NECK: Supple, no adenopathy LUNGS: Diminished breath sounds without rhonchi/rales/wheeze, mild tachypnea noted. SpO2<98> CARDIOVASCULAR: Regular rate and rhythm without noted murmurs, no JVD or lower extremity edema. ABDOMEN: Soft, non-tender, non-distended with bowel sounds. MUSCULOSKELETAL: No tenderness, deformities, or effusions noted on gross inspection. EXTREMITIES: No cyanosis, clubbing or edema. SKIN: Inspection of the skin reveals no rashes NEUROLOGIC: Alert and oriented x 4. Strength and sensation to light touch were grossly intact x 4. Course Course Course Narrative: 57-year-old male who at the time of my evaluation did not present with any acute respiratory distress and was saturating well on 2 L. I lower the oxygen which patient states he does use at home but has not been using since his placement at [facility]. On review of all investigations there are no significant findings a nd initial troponin is not detectable without acute changes on EKG, will repeat troponin/administer 10 mg DuoNeb/give Solu-Medrol. 0815:Pt states he is feeling much better, will ambulate and check O2 saturation. 0926: On ambulation evaluation patient is noted to range at 94-96% on room air without evidence of tachypnea, serial troponins are negative and patient is otherwise stable for discharge back to [facility]. Medications Administered Discontinued Medications Generic Name Dose Route Start Last Admin Trade Name Jimq PRN Reason Stop Dose Admin Albuterol Sulfate 7.5 mg/ 0 mg 06/29/22 06:52 06/29/22 07:22 Albuterol/Ipratropium 3 ml INHALE 06/29/22 06:53 10 each ONCE ONE Administration Diphenhydramine HCl 50 mg 06/29/22 05:02 06/29/22 05:10 Diphenhydramine Hcl 50 Mg/Ml Vial IVPUSH 06/29/22 05:03 50 mg ONCE STA Administration Methylprednisolone Sodium Succinate 125 mg 06/29/22 06:52 06/29/22 07:19 Methylprednisolone Sod Succ 125 Mg/2 Ml Vial IVPUSH 06/29/22 06:53 125 mg ONCE ONE Administration Metoclopramide HCl 10 mg 06/29/22 05:02 06/29/22 05:10 Metoclopramide Hcl 10 Mg/2 Ml Vial IVPUSH 06/29/22 05:03 10 mg ONCE STA Administration Medical Decision Making Lab Data Result Diagrams: 06/29/22 03:20 06/29/22 03:20 Labs: Lab Results 06/29/22 06/29/22 06/29/22 Range/Units 03:20 03:20 03:20 WBC 4.8 (4.8-10.8) X10*3/uL RBC 3.98 L (4.60-5.80) X10*6/uL Hgb 12.0 L (14.0-18.0) g/dl Hct 35.6 L (42.0-52.0) % MCV 89.4 (80.0-98.0) fL MCH 30.2 (27.0-33.0) pg MCHC 33.7 (31.0-36.0) g/dl RDW 14.3 (11.0-16.0) % Plt Count 378 (160-400) X10*3/uL MPV 8.8 L (9.4-12.4) fL Immature Gran % (Auto) 0.4 (0.0-0.4) % Neut % (Auto) 37.1 L (45-73) % Lymph % (Auto) 45.0 H (20-40) % [place] % (Auto) 9.7 (2-11) % Eos % (Auto) 7.0 H (0-4) % Baso % (Auto) 0.8 (0-2) % Lymph # (Auto) 2.2 (1.2-4.9) X10*3/uL [place] # (Auto) 0.5 (0.1-1.2) X10*3/uL Eos # (Auto) 0.3 (0.0-0.4) X10*3/uL Baso # (Auto) 0.0 (0.0-0.2) X10*3/uL Abs Immat Gran (auto) 0.02 (0.00-0.03) X10*3/uL Absolute Neuts (auto) 1.8 L (2.0-8.3) x10*3/uL Absolute Nucleated RBC 0.000 (0.0-0.012) X10*3/uL Nucleated RBC % (auto) 0.0 (0.0-0.2) /100WBC VBG pH (7.32-7.43) VBG pCO2 mmHg VBG pO2 mmHg VBG HCO3 (22-26) mmol/L VBG O2 Saturation % VBG Base Excess mmol/L Sodium 140 (135-145) mmol/L Potassium 4.7 (3.3-5.1) mmol/L Chloride 107 (96-108) mmol/L Carbon Dioxide 27 (22-29) mmol/L Anion Gap 11 L (12-20) BUN 16 (9-16) mg/dL Creatinine 0.78 (0.5-1.4) mg/dL Estim Creat Clear Calc 85.3 Estimated GFR > 60 Random Glucose 87 (60-115) mg/dL Lactic Acid (0.5-2.0) mmol/L Calcium 9.2 (8.4-10.2) mg/dL Troponin I High Sens < 3.5 (<3.5-35.0) ng/L B-Natriuretic Peptide (<100) pg/mL Influenza Type A (PCR) (Negative) Influenza Type B (PCR) (Negative) RSV RNA Qual (PCR) (Negative) SARS-CoV-2 RNA (RT-PCR) (Negative) 06/29/22 06/29/22 06/29/22 Range/Units 03:20 03:20 03:20 WBC (4.8-10.8) X10*3/uL RBC (4.60-5.80) X10*6/uL Hgb (14.0-18.0) g/dl Hct (42.0-52.0) % MCV (80.0-98.0) fL MCH (27.0-33.0) pg MCHC (31.0-36.0) g/dl RDW (11.0-16.0) % Plt Count (160-400) X10*3/uL MPV (9.4-12.4) fL Immature Gran % (Auto) (0.0-0.4) % Neut % (Auto) (45-73) % Lymph % (Auto) (20-40) % [place] % (Auto) (2-11) % Eos % (Auto) (0-4) % Baso % (Auto) (0-2) % Lymph # (Auto) (1.2-4.9) X10*3/uL [place] # (Auto) (0.1-1.2) X10*3/uL Eos # (Auto) (0.0-0.4) X10*3/uL Baso # (Auto) (0.0-0.2) X10*3/uL Abs Immat Gran (auto) (0.00-0.03) X10*3/uL Absolute Neuts (auto) (2.0-8.3) x10*3/uL Absolute Nucleated RBC (0.0-0.012) X10*3/uL Nucleated RBC % (auto) (0.0-0.2) /100WBC VBG pH (7.32-7.43) VBG pCO2 mmHg VBG pO2 mmHg VBG HCO3 (22-26) mmol/L VBG O2 Saturation % VBG Base Excess mmol/L Sodium (135-145) mmol/L Potassium (3.3-5.1) mmol/L Chloride (96-108) mmol/L Carbon Dioxide (22-29) mmol/L Anion Gap (12-20) BUN (9-16) mg/dL Creatinine (0.5-1.4) mg/dL Estim Creat Clear Calc Estimated GFR Random Glucose (60-115) mg/dL Lactic Acid 0.5 (0.5-2.0) mmol/L Calcium (8.4-10.2) mg/dL Troponin I High Sens (<3.5-35.0) ng/L B-Natriuretic Peptide < 10 (<100) pg/mL Influenza Type A (PCR) NEGATIVE (Negative) Influenza Type B (PCR) NEGATIVE (Negative) RSV RNA Qual (PCR) NEGATIVE (Negative) SARS-CoV-2 RNA (RT-PCR) NEGATIVE (Negative) 06/29/22 06/29/22 Range/Units 03:28 08:50 WBC (4.8-10.8) X10*3/uL RBC (4.60-5.80) X10*6/uL Hgb (14.0-18.0) g/dl Hct (42.0-52.0) % MCV (80.0-98.0) fL MCH (27.0-33.0) pg MCHC (31.0-36.0) g/dl RDW (11.0-16.0) % Plt Count (160-400) X10*3/uL MPV (9.4-12.4) fL Immature Gran % (Auto) (0.0-0.4) % Neut % (Auto) (45-73) % Lymph % (Auto) (20-40) % [place] % (Auto) (2-11) % Eos % (Auto) (0-4) % Baso % (Auto) (0-2) % Lymph # (Auto) (1.2-4.9) X10*3/uL [place] # (Auto) (0.1-1.2) X10*3/uL Eos # (Auto) (0.0-0.4) X10*3/uL Baso # (Auto) (0.0-0.2) X10*3/uL Abs Immat Gran (auto) (0.00-0.03) X10*3/uL Absolute Neuts (auto) (2.0-8.3) x10*3/uL Absolute Nucleated RBC (0.0-0.012) X10*3/uL Nucleated RBC % (auto) (0.0-0.2) /100WBC VBG pH 7.37 (7.32-7.43) VBG pCO2 43 mmHg VBG pO2 160 mmHg VBG HCO3 25 (22-26) mmol/L VBG O2 Saturation 99.0 % VBG Base Excess 0.2 mmol/L Sodium (135-145) mmol/L Potassium (3.3-5.1) mmol/L Chloride (96-108) mmol/L Carbon Dioxide (22-29) mmol/L Anion Gap (12-20) BUN (9-16) mg/dL Creatinine (0.5-1.4) mg/dL Estim Creat Clear Calc Estimated GFR Random Glucose (60-115) mg/dL Lactic Acid (0.5-2.0) mmol/L Calcium (8.4-10.2) mg/dL Troponin I High Sens < 3.5 (<3.5-35.0) ng/L B-Natriuretic Peptide (<100) pg/mL Influenza Type A (PCR) (Negative) Influenza Type B (PCR) (Negative) RSV RNA Qual (PCR) (Negative) SARS-CoV-2 RNA (RT-PCR) (Negative) Independent Interpretation I performed an independent interpretation of an: EKG Interpretation: Normal sinus rhythm, HR -80, no STEMI, OR/QRS/QTC are within normal limits. Discharge Plan Discharge Clinical Impression: Atypical chest pain, COPD (chronic obstructive pulmonary disease) Patient Disposition: Xfer Inpatient Rehab Fac Instructions: COPD (Chronic Obstructive Pulmonary Disease) (ED), Chest Pain (ED) Additional Instructions: 1. Reanudar todos los medicamentos caseros seg?n lo prescrito. 2. Complete el curso corto de esteroides que le motley proporcionado. 3. Realice un seguimiento con bronson proveedor de atenci?n primaria en los pr?ximos 1 a 2 d?as para tereza reevaluaci?n adicional del manejo ambulatorio. Regrese a la jarrett de emergencias si los s?ntomas empeoran. Prescriptions: No Action albuterol sulfate [ProAir HFA] 90 mcg/actuation HFA aerosol inhaler 2 puff inhalation Q4-6H PRN (Reason: shortness of breath or wheezing) Qty: 8.5 0RF vasnpeuydn-jiyoighrpgtxs-rwbz [Fioricet] 50-300-40 mg capsule 1 cap PO Q4-6H PRN (Reason: headache) Qty: 14 0RF pantoprazole 40 mg tablet,delayed release (DR/EC) 1 tab PO QAM nicotine 21 mg/24 hr Patch 24 Hour 21 mg transdermal DAILY PRN (Reason: nicotine cravings) 28 Days Qty: 28 0RF albuterol sulfate [Ventolin HFA] 90 mcg/actuation Hfa Aerosol Inhaler 2 puff inhalation RQ4H PRN (Reason: Shortness Of Breath) 30 Days Qty: 6.7 0RF atorvastatin 40 mg tablet 1 tab PO BEDTIME quetiapine 300 mg tablet 1 tab PO BEDTIME quetiapine 100 mg tablet 1 tab PO QAM mirtazapine 30 mg tablet 1 tab PO BEDTIME ferrous sulfate [FeroSul] 325 mg (65 mg iron) tablet 1 tab PO BEDTIME verapamil 100 mg capsule, [address] 1 cap PO BEDTIME clonazepam 1 mg tablet 1 tab PO DAILY PRN (Reason: anxiety) tamsulosin 0.4 mg capsule 1 cap PO DAILY fluticasone propionate [Flovent HFA] 220 mcg/actuation HFA aerosol inhaler 2 puff INHALATION BID Referrals: [place],[facility] [Primary Care Provider] - Print Language: Georgian
[2022-06-29] MEDS: methylPREDNISolone Sod Succ 125 MG/2 ML VIAL IVPUSH (07:19)
[2022-06-29] MEDS: Albuterol Sulfate 7.5 MG, Albuterol/Iprat 2.5/0.5MG 3 ML 3 ML INHALE (07:22)
[2022-06-29 09:19] LABS: Troponin-I High Sensitivity < 3.5 ng/L (<3.5-35.0)
--- NOTE | 2022-06-29 09:26 | PC.NURSE ---
Per Md walk patient with pulse ox excursion , 94 lowest and 96 highest . aware
[2022-06-29] MEDS: Albuterol/Iprat 2.5/0.5MG 3 ML AMPUL.NEB INHALE (09:28)
--- NOTE | 2022-06-29 10:03 | PC.NURSE ---
sr on monitor, skin wpd, denies sob, awaiting ambulance transport
--- NOTE | 2022-06-29 10:20 | PC.NURSE ---
moved to 6h, nad, denies sob, call placed to [facility] and they will call back for report
--- NOTE | 2022-06-29 10:58 | PC.NURSE ---
andre called approx 1.5 hrs ago for update, update given and told he'd be returning . i tried to call back and was told dianne rn would return my call but has not at this point, report given to ems, pt w hayden, skin wpd, denies sob
== END 2022-06-29 11:00 ==
PROVIDERS: Emergency Provider Student in an Organized Health Care Education/Training Program
DX: R07.89 Other chest pain (principal); J44.9 Chronic obstructive pulmonary disease, unspecified; Z20.822 Contact with and (suspected) exposure to COVID-19; R06.02 Shortness of breath; F17.210 Nicotine dependence, cigarettes, uncomplicated
CPT/HCPCS: 0241U; 36415; 71045; 80048; 82803; 83605; 83880; 84484; 85025; 87040; 93005; 94640; 96374; 96375; 99284; 99285; J1200; J2765; J2930

== ENCOUNTER 2022-07-03 10:37 | Emergency (ER) | payer MEDICAID, SELFPAY ==
[2022-07-03 10:44] VITALS: BP 111/79; BP 118/81; PULSE 94; PULSE 95; RESP 20; TEMP 36.9; O2SAT 97; BMI 32.1
--- NOTE | 2022-07-03 11:18 | ED_ITS ---
HPI - General Adult General Chief complaint: General Medical Stated complaint: BODYACHES/PAIN FROM [facility] Time Seen by Provider: 07/03/22 10:51 Source: patient Mode of arrival: EMS Limitations: language barrier History of Present Illness HPI narrative: History by science interpreter. He had a BM and saw some blood. Also has right flank pain, and headache. No sleeping. Patient with multiple work up that showed multiple nonobstructing kidney stones. Patient is at [facility] for depression. Onset (ago): day(s) Severity: mild Associated symptoms: chest pain and other (abdominal pain) Related Data Home Medications Medication Instructions Recorded Confirmed pantoprazole 40 mg tablet,delayed 1 tab PO QAM 04/04/22 06/20/22 release atorvastatin 40 mg tablet 1 tab PO BEDTIME 06/20/22 06/20/22 clonazepam 1 mg tablet 1 tab PO DAILY PRN anxiety 06/20/22 06/20/22 ferrous sulfate 325 mg (65 mg 1 tab PO BEDTIME 06/20/22 06/20/22 iron) tablet (FeroSul) fluticasone propionate 220 2 puff inhalation BID 06/20/22 06/20/22 mcg/actuation HFA aerosol inhaler (Flovent HFA) mirtazapine 30 mg tablet 1 tab PO BEDTIME 06/20/22 06/20/22 quetiapine 100 mg tablet 1 tab PO QAM depressive disorder 06/20/22 06/20/22 quetiapine 300 mg tablet 1 tab PO BEDTIME depressive 06/20/22 06/20/22 disorder tamsulosin 0.4 mg capsule 1 cap PO DAILY 06/20/22 06/20/22 verapamil 100 mg capsule 24hr 1 cap PO BEDTIME 06/20/22 06/20/[address],ext.release Previous Rx's Medication Instructions Recorded albuterol sulfate 90 mcg/actuation 2 puff inhalation RQ4H PRN 04/10/22 aerosol inhaler (Ventolin HFA) Shortness Of Breath 30 days #6.7 grams nicotine 21 mg/24 hr daily 21 mg transdermal DAILY PRN 04/10/22 transdermal patch nicotine cravings 28 days #28 ea albuterol sulfate 90 mcg/actuation 2 puff inhalation Q4-6H PRN 06/03/22 aerosol inhaler (ProAir HFA) shortness of breath or wheezing #8.5 grams xlowtmqkbh-uatmxiqicfqow-ptgnhkku 1 cap PO Q4-6H PRN headache #14 06/26/22 50 mg-300 mg-40 mg capsule caps (Fioricet) Allergies Allergy/AdvReac Type Severity Reaction Status Date / Time ibuprofen Allergy Intermediate Stomach Verified 05/30/22 03:07 Upset penicillin V Allergy Intermediate rash Verified 05/30/22 03:07 Review of Systems Review of Systems: Yes all other systems are reviewed and are negative Constitutional: Constitutional: Reports body ache(s) and Reports headache(s) ENT: Reports headache(s) Gastrointestinal: Gastrointestinal: Reports abdominal pain and Reports other (blood on toilet paper) Neurologic: Reports headache(s) and Denies Sensory deficit (Neuro) ON LICENSE OF [facility] Past Medical History Medical History (Updated 07/03/22 @ 11:32 by Regino Ojeda MD) Anxiety Asthma BPH (benign prostatic hyperplasia) Cannabis use disorder, moderate, dependence Cocaine use disorder Depression Emphysema of lung Nicotine dependence Opioid use disorder Pulmonary nodules Surgical History Hx of cholecystectomy Social History Social History Household Members: None Housing: Apartment Do you presently have visiting nurse or other home services: Yes Unable to assess alcohol history related to: Unknown Alcohol intake: never Patient Tobacco Use Status: Tobacco use Unknown Tobacco use type: Cigarette Cigarettes Per Day: 4 Smoked in Last 30 Days: No e-Cigarette/Vaping Use: Never Used Second Hand Smoke Exposure: No Use of substances other than those prescribed or required for medical reasons: Yes Substance Use Type: Crack/Cocaine Substance Use Frequency Other:: former abuse Advance Directives: No Advance Directives Information Provided: No service: No Sexual orientation: Straight/Heterosexual Physical Exam ED Vital Signs: Vital Signs - 24 hr 07/03/22 10:44 Temperature 98.4 F Pulse Rate 94 Respiratory Rate 20 Blood Pressure 111/79 Pulse Oximetry 97 Oxygen Delivery Method Room Air BMI result Body Mass Index 32.1 Const General: healthy appearing Nutritional Appearance: average body habitus Orientation/consciousness: oriented to person and patient oriented x3 Limitations: no limitations HENMT Head: Yes normal to inspection Ears: external ears normal General nose exam: Normal external nose present Mouth: Normal oral and palatal mucosa present and oropharynx normal Throat: Yes posterior oropharynx normal Eyes General: appearance normal, both eyes and all related structures Neck Neck: Yes normal visual inspection Chest Chest palpation & inspection: normal inspection of the chest Resp Auscultation: clear to auscultation bilaterally Cardio Jugular venous distension: no JVD Rate: regular rate Rhythm: regular rhythm Heart sounds: S1 normal heart sound present and S2 normal heart sound present GI Inspection: Yes normal to inspection Palpation (GI): Soft to palpation, nontender and No hepatosplenomegaly present Auscultation: normal bowel sounds Other: small nonbleeding rectal fissure General: Yes no CVA tenderness Back/Spine/Pelvis Back: no CVA tenderness Skin General skin exam: no rashes or lesions noted Neuro General: oriented to person and patient oriented x3 Cranial nerves: Yes CN's II-XII intact bilaterally Motor exam (neuro): 5/5 motor strength present throughout Sensory Exam: No Sensory deficit (Neuro) Extrem General: Yes normal to inspection Psych Appearance: grossly normal Course Reevaluation(s) Reevaluation #1: patient with multiple visits for a host of problems, yesterday has small blood on toilet paper which looks like secondary to rectal fissure. Gave patient toradol for his myalgias Time: 11:30 Discharge Plan Discharge Clinical Impression: Myalgia, Rectal fissure Patient Disposition: Xfer Psychiatric Hosp Instructions: Anal Fissure (ED), Musculoskeletal Pain (ED) Prescriptions: No Action albuterol sulfate [ProAir HFA] 90 mcg/actuation HFA aerosol inhaler 2 puff inhalation Q4-6H PRN (Reason: shortness of breath or wheezing) Qty: 8.5 0RF onegnaosel-tnhbghqedfokz-vkrk [Fioricet] 50-300-40 mg capsule 1 cap PO Q4-6H PRN (Reason: headache) Qty: 14 0RF pantoprazole 40 mg tablet,delayed release (DR/EC) 1 tab PO QAM nicotine 21 mg/24 hr Patch 24 Hour 21 mg transdermal DAILY PRN (Reason: nicotine cravings) 28 Days Qty: 28 0RF albuterol sulfate [Ventolin HFA] 90 mcg/actuation Hfa Aerosol Inhaler 2 puff inhalation RQ4H PRN (Reason: Shortness Of Breath) 30 Days Qty: 6.7 0RF atorvastatin 40 mg tablet 1 tab PO BEDTIME quetiapine 300 mg tablet 1 tab PO BEDTIME quetiapine 100 mg tablet 1 tab PO QAM mirtazapine 30 mg tablet 1 tab PO BEDTIME ferrous sulfate [FeroSul] 325 mg (65 mg iron) tablet 1 tab PO BEDTIME verapamil 100 mg capsule, [address] 1 cap PO BEDTIME clonazepam 1 mg tablet 1 tab PO DAILY PRN (Reason: anxiety) tamsulosin 0.4 mg capsule 1 cap PO DAILY fluticasone propionate [Flovent HFA] 220 mcg/actuation HFA aerosol inhaler 2 puff INHALATION BID Referrals: [facility] [Primary Care Provider] - 1 week
[2022-07-03] MEDS: Ketorolac Tromethamine 60 MG/2 ML VIAL IM (11:39)
--- NOTE | 2022-07-03 11:41 | PC.NURSE ---
patient a&ox3, c/o 04/25 headache and back pain, cardiac care unit nurse nsr 90s, vss, pt medicated for pain per provider order, will continue to monitor
--- NOTE | 2022-07-03 12:36 | PC.NURSE ---
patient still complaining of 9/10 pain, will notify provider
--- NOTE | 2022-07-03 12:51 | PC.NURSE ---
REPORT TO [facility]OM[facility]S [facility]EV[facility]. AMBULANCE TRANSPORT TO BE ARRANGED
--- NOTE | 2022-07-03 13:58 | PC.NURSE ---
pt complaining it is too loud from another patient screaming, pt was moved down the [place] to across [address] into a chair for patient comfort, pt awaiting ambulace back to [facility]
[2022-07-03 14:00] VITALS: BP 116/79; PULSE 92; RESP 18; TEMP 36.7; O2SAT 97
[2022-07-03 15:39] VITALS: BP 114/72; PULSE 90; RESP 18; TEMP 36.6; O2SAT 96
--- NOTE | 2022-07-03 15:39 | PC.NURSE ---
patient continues to wait for ride back to [facility], report has been called to the facility, sparkle grider to monitor
--- NOTE | 2022-07-03 15:40 | PC.NURSE ---
patient a&ox3, vss, pt awaiting ride to [facility], will continue to monitor.
== END 2022-07-03 15:51 ==
PROVIDERS: Emergency Provider Emergency Medicine
DX: K60.2 Anal fissure, unspecified (principal); M79.10 Myalgia, unspecified site; R51.9 Headache, unspecified; R10.9 Unspecified abdominal pain; F17.210 Nicotine dependence, cigarettes, uncomplicated; Z71.6 Tobacco abuse counseling; Z79.899 Other long term (current) drug therapy
CPT/HCPCS: 96372; 99285; J1885

== ENCOUNTER 2022-07-11 19:51 | Emergency (ER) | payer MEDICAID, SELFPAY ==
[2022-07-11 20:05] VITALS: BP 144/79; BP 170/130; PULSE 76; RESP 18; TEMP 36.5; O2SAT 97; BMI 23.6
[2022-07-11 20:38] LABS: Appearance Urine Clear; Color Urine Yellow; Glucose Urine UA Negative (Negative); Leukocyte Esterase Urine Negative (Negative); Nitrite Urine Negative (Negative); Specific Gravity - Urine <= 1.005 (1.005-1.025); Urine Blood Negative (Negative); Urine Ketones Negative (Negative); Urine Protein Negative (Neg-Trace)
--- NOTE | 2022-07-11 20:38 | ED.ABDPAIN ---
HPI - Abdominal Pain General Chief Complaint: Abdominal Pain Stated Complaint: right flank pain Time Seen by Provider: 07/11/22 20:21 Source: patient Mode of arrival: ambulatory Limitations: no limitations History of Present Illness HPI narrative: Patient's history of cocaine use in remission on his kidney stone complaining of chronic right flank pain was here on 06/26 ultrasound showed nonobstructive 0.4 cm stone in right kidney patient has CT scan also in the past which shows same never had any ureteric stone comes here for chronic pain no hematuria no fever or chills patient also complaining of constipation Related Data Home Medications Medication Instructions Recorded Confirmed pantoprazole 40 mg tablet,delayed 1 tab PO QAM 04/04/22 06/20/22 release atorvastatin 40 mg tablet 1 tab PO BEDTIME 06/20/22 06/20/22 clonazepam 1 mg tablet 1 tab PO DAILY PRN anxiety 06/20/22 06/20/22 ferrous sulfate 325 mg (65 mg 1 tab PO BEDTIME 06/20/22 06/20/22 iron) tablet (FeroSul) fluticasone propionate 220 2 puff inhalation BID 06/20/22 06/20/22 mcg/actuation HFA aerosol inhaler (Flovent HFA) mirtazapine 30 mg tablet 1 tab PO BEDTIME 06/20/22 06/20/22 quetiapine 100 mg tablet 1 tab PO QAM depressive disorder 06/20/22 06/20/22 quetiapine 300 mg tablet 1 tab PO BEDTIME depressive 06/20/22 06/20/22 disorder tamsulosin 0.4 mg capsule 1 cap PO DAILY 06/20/22 06/20/22 verapamil 100 mg capsule 24hr 1 cap PO BEDTIME 06/20/22 06/20/[address],ext.release Previous Rx's Medication Instructions Recorded albuterol sulfate 90 mcg/actuation 2 puff inhalation RQ4H PRN 04/10/22 aerosol inhaler (Ventolin HFA) Shortness Of Breath 30 days #6.7 grams nicotine 21 mg/24 hr daily 21 mg transdermal DAILY PRN 04/10/22 transdermal patch nicotine cravings 28 days #28 ea albuterol sulfate 90 mcg/actuation 2 puff inhalation Q4-6H PRN 06/03/22 aerosol inhaler (ProAir HFA) shortness of breath or wheezing #8.5 grams [id number]-zeqaajhhnfmbb-ypvzizcn 1 cap PO Q4-6H PRN headache #14 06/26/22 50 mg-300 mg-40 mg capsule caps (Fioricet) polyethylene glycol 3350 17 17 g PO DAILY #510 grams 07/11/22 gram/dose oral powder (Miralax) tramadol 50 mg tablet 50 mg PO Q6H PRN pain #20 tabs 07/11/22 Allergies Allergy/AdvReac Type Severity Reaction Status Date / Time ibuprofen Allergy Intermediate Stomach Verified 05/30/22 03:07 Upset penicillin V Allergy Intermediate rash Verified 05/30/22 03:07 Review of Systems Review of Systems Yes all other systems are reviewed and are negative [facility] Past Medical History Medical History Anxiety Asthma BPH (benign prostatic hyperplasia) Cannabis use disorder, moderate, dependence Cocaine use disorder Depression Emphysema of lung Nicotine dependence Opioid use disorder Pulmonary nodules Surgical History Hx of cholecystectomy Social History Social History Household Members: None Housing: Apartment Do you presently have visiting nurse or other home services: Yes Unable to assess alcohol history related to: Unknown Alcohol intake: former Patient Tobacco Use Status: Tobacco use Unknown Tobacco use type: Cigarette Cigarettes Per Day: 4 Smoked in Last 30 Days: Yes e-Cigarette/Vaping Use: Never Used Second Hand Smoke Exposure: No Use of substances other than those prescribed or required for medical reasons: No Substance Use Type: Crack/Cocaine Advance Directives: No Advance Directives Information Provided: No service: No Sexual orientation: Straight/Heterosexual Physical Exam ED Vital Signs: Vital Signs - 24 hr 07/11/22 20:05 Temperature 97.7 F Pulse Rate 76 Respiratory Rate 18 Blood Pressure 144/79 H Pulse Oximetry 97 Oxygen Delivery Method Room Air BMI result Body Mass Index 23.6 Appearance: Alert. Oriented X3. No acute distress. Eyes: PERRLA, No Nystagmus ENT: Pharynx normal. Oral Mucosa moist Neck: Normal inspection. Neck supple. CVS: Normal heart rate and rhythm. Pulses normal. Respiratory: No respiratory distress. Equal air entry bilateral, no wheezing/rales/rhonchi Abdomen: Soft and nontender. Bowel sounds are present, no mass palpable, mild right CVA tenderness Skin: Skin warm and dry. Normal skin color. Normal skin turgor. Extremities: No lower extremity edema. No calf tenderness Neuro: Oriented X 3. No motor deficit. No sensory deficit.No cerebellar signs , cranial nerves II-XII intact Medical Decision Making Medical Decision Making MDM Narrative: Patient urine is clear no hematuria recent ultrasound showed nonobstructive kidney stone patient with constipation discharge patient home on MiraLax and tramadol for pain Lab Data Labs: Lab Results 07/11/22 Range/Units 20:31 Urine Color Yellow Urine Appearance Clear Urine pH 7.0 (5.0-9.0) Ur Specific [place] <= 1.005 (1.005-1.025) Urine Protein Negative (Neg-Trace) mg/dL Urine Glucose (UA) Negative (Negative) mg/dL Urine Ketones Negative (Negative) mg/dL Urine Blood Negative (Negative) Urine Nitrite Negative (Negative) Ur Leukocyte Esterase Negative (Negative) Medications Administered Discontinued Medications Generic Name Dose Route Start Last Admin Trade Name Freq PRN Reason Stop Dose Admin Magnesium Hydroxide 30 ml 07/11/22 20:39 07/11/22 20:47 Milk Of Magnesia 30 Ml Oral.Susp PO 07/11/22 20:40 30 ml ONCE ONE Administration Ondansetron HCl 4 mg 07/11/22 20:39 07/11/22 20:47 Ondansetron Odt 4 Mg Tab.Rapdis TRANSLINGU 07/11/22 20:40 4 mg ONCE ONE Administration Oxycodone HCl 10 mg 07/11/22 20:39 07/11/22 20:47 Oxycodone Hcl Immed Release 5 Mg Tablet PO 07/11/22 20:40 10 mg ONCE ONE Administration Discharge Plan Discharge Clinical Impression: Kidney stone on right side, Constipation Patient Disposition: Home, Self-Care Instructions: Constipation (ED), Kidney Stones (ED) Additional Instructions: You have non blocking kidney stones on the right side Tramadol for pain Your pain is unlikely from kidney stone as they are not blocking kidney tubes Follow-up with urologist if pain continues Report to the ER if sudden increase in the flank pain miralax daily for constipation Prescriptions: New tramadol 50 mg tablet 50 mg PO Q6H PRN (Reason: pain) Qty: 20 0RF polyethylene glycol 3350 [Miralax] 17 gram/dose powder 17 g PO DAILY Qty: 510 0RF No Action albuterol sulfate [ProAir HFA] 90 mcg/actuation HFA aerosol inhaler 2 puff inhalation Q4-6H PRN (Reason: shortness of breath or wheezing) Qty: 8.5 0RF [id number]-kjowkajtqxmpt-itcj [Fioricet] 50-300-40 mg capsule 1 cap PO Q4-6H PRN (Reason: headache) Qty: 14 0RF pantoprazole 40 mg tablet,delayed release (DR/EC) 1 tab PO QAM nicotine 21 mg/24 hr Patch 24 Hour 21 mg transdermal DAILY PRN (Reason: nicotine cravings) 28 Days Qty: 28 0RF albuterol sulfate [Ventolin HFA] 90 mcg/actuation Hfa Aerosol Inhaler 2 puff inhalation RQ4H PRN (Reason: Shortness Of Breath) 30 Days Qty: 6.7 0RF atorvastatin 40 mg tablet 1 tab PO BEDTIME quetiapine 300 mg tablet 1 tab PO BEDTIME quetiapine 100 mg tablet 1 tab PO QAM mirtazapine 30 mg tablet 1 tab PO BEDTIME ferrous sulfate [FeroSul] 325 mg (65 mg iron) tablet 1 tab PO BEDTIME verapamil 100 mg capsule, [address] 1 cap PO BEDTIME clonazepam 1 mg tablet 1 tab PO DAILY PRN (Reason: anxiety) tamsulosin 0.4 mg capsule 1 cap PO DAILY fluticasone propionate [Flovent HFA] 220 mcg/actuation HFA aerosol inhaler 2 puff INHALATION BID Interventions: ED Discharge Assessment Last Done: 07/11/22 22:43 Discharge Date/Time: 07/11/22 22:44
== END 2022-07-11 22:44 | disposition home or self-care (01) ==
PROVIDERS: Emergency Provider Internal Medicine; PCP Internal Medicine
DX: N20.0 Calculus of kidney (principal); K59.00 Constipation, unspecified; R10.9 Unspecified abdominal pain; F12.20 Cannabis dependence, uncomplicated; F11.90 Opioid use, unspecified, uncomplicated; F14.10 Cocaine abuse, uncomplicated; F17.210 Nicotine dependence, cigarettes, uncomplicated
CPT/HCPCS: 81003; 99283; 99284

== ENCOUNTER 2022-07-19 21:24 | Emergency (ER) | payer MEDICAID, SELFPAY ==
--- NOTE | 2022-07-19 | ECG_ITS ---
Test Reason : CHEST PAIN Blood Pressure : / mmHG Vent. Rate : 082 BPM Atrial Rate : 082 BPM P-R Int : 160 ms QRS Dur : 114 ms QT Int : 402 ms P-R-T Axes : 078 025 074 degrees QTc Int : 469 ms Normal sinus rhythm Incomplete right bundle branch block Septal infarct , age undetermined Abnormal ECG When compared with ECG of 29-JUN-2022 03:26, No significant changes seen Referred By: Emile Mckeon Electronically Signed By:FREDI LACKEY
[2022-07-19 21:35] VITALS: BMI 27.3
[2022-07-19 21:37] VITALS: BP 121/71; PULSE 86; RESP 16; TEMP 37; O2SAT 95
--- NOTE | 2022-07-19 21:46 | ED.CHESTPAIN ---
HPI - Chest Pain General Chief Complaint: Chest Pain Stated Complaint: Chest pain shooting down arm/back per EMS Time Seen by Provider: 07/19/22 21:26 Source: patient Mode of arrival: EMS Limitations: no limitations History of Present Illness HPI narrative: With history of substance abuse cocaine, opiates anxiety disorder depression COPD been to the ER 4 times for chest pain since last month comes here with similar pain in mid sternum area started at 15:00 feels pressure sharp off and on worse on lying down improves on sitting no shortness of breath feels nausea Related Data Home Medications Medication Instructions Recorded Confirmed pantoprazole 40 mg tablet,delayed 1 tab PO QAM 04/04/22 06/20/22 release atorvastatin 40 mg tablet 1 tab PO BEDTIME 06/20/22 06/20/22 clonazepam 1 mg tablet 1 tab PO DAILY PRN anxiety 06/20/22 06/20/22 ferrous sulfate 325 mg (65 mg 1 tab PO BEDTIME 06/20/22 06/20/22 iron) tablet (FeroSul) fluticasone propionate 220 2 puff inhalation BID 06/20/22 06/20/22 mcg/actuation HFA aerosol inhaler (Flovent HFA) mirtazapine 30 mg tablet 1 tab PO BEDTIME 06/20/22 06/20/22 quetiapine 100 mg tablet 1 tab PO QAM depressive disorder 06/20/22 06/20/22 quetiapine 300 mg tablet 1 tab PO BEDTIME depressive 06/20/22 06/20/22 disorder tamsulosin 0.4 mg capsule 1 cap PO DAILY 06/20/22 06/20/22 verapamil 100 mg capsule 24hr 1 cap PO BEDTIME 06/20/22 06/20/[address],ext.release Previous Rx's Medication Instructions Recorded albuterol sulfate 90 mcg/actuation 2 puff inhalation RQ4H PRN 04/10/22 aerosol inhaler (Ventolin HFA) Shortness Of Breath 30 days #6.7 grams nicotine 21 mg/24 hr daily 21 mg transdermal DAILY PRN 04/10/22 transdermal patch nicotine cravings 28 days #28 ea albuterol sulfate 90 mcg/actuation 2 puff inhalation Q4-6H PRN 06/03/22 aerosol inhaler (ProAir HFA) shortness of breath or wheezing #8.5 grams [id number]-gnuedcnryflkq-xroeorar 1 cap PO Q4-6H PRN headache #14 06/26/22 50 mg-300 mg-40 mg capsule caps (Fioricet) polyethylene glycol 3350 17 17 g PO DAILY #510 grams 07/11/22 gram/dose oral powder (Miralax) tramadol 50 mg tablet 50 mg PO Q6H PRN pain #20 tabs 07/11/22 sucralfate 1 gram tablet 1 g PO TID #90 tabs 07/19/22 Allergies Allergy/AdvReac Type Severity Reaction Status Date / Time ibuprofen Allergy Intermediate Stomach Verified 05/30/22 03:07 Upset penicillin V Allergy Intermediate rash Verified 05/30/22 03:07 Review of Systems Review of Systems: Yes all other systems are reviewed and are negative PMFSH Past Medical History Medical History Anxiety Asthma BPH (benign prostatic hyperplasia) Cannabis use disorder, moderate, dependence Cocaine use disorder Depression Emphysema of lung Nicotine dependence Opioid use disorder Pulmonary nodules Surgical History Hx of cholecystectomy Social History Social History Household Members: None Housing: Apartment Do you presently have visiting nurse or other home services: Yes Unable to assess alcohol history related to: Unknown Alcohol intake: former Patient Tobacco Use Status: Tobacco use Unknown Tobacco use type: Cigarette Cigarettes Per Day: 4 e-Cigarette/Vaping Use: Never Used Second Hand Smoke Exposure: No Substance Use Type: Crack/Cocaine Advance Directives: No service: No Sexual orientation: Straight/Heterosexual Physical Exam Vital Signs: Vital Signs: Last Vital Signs Temp 97.9 F 07/19/22 23:18 Pulse 82 07/19/22 23:18 Resp 17 07/19/22 23:18 BP 114/59 L 07/19/22 23:18 Pulse Ox 94 07/19/22 23:18 O2 Del Method 07/19/22 23:18 BMI result Body Mass Index 27.3 Appearance: Alert. Oriented X3. No acute distress. Eyes: PERRLA, No Nystagmus ENT: Pharynx normal. Oral Mucosa moist Neck: Normal inspection. Neck supple. CVS: Normal heart rate and rhythm. Pulses normal. epigastric tenderness+ Respiratory: No respiratory distress. Equal air entry bilateral, no wheezing/rales/rhonchi Abdomen: Soft and nontender. Bowel sounds are present, no mass palpable, no CVA tenderness Skin: Skin warm and dry. Normal skin color. Normal skin turgor. Extremities: No lower extremity edema. No calf tenderness Neuro: Oriented X 3. No motor deficit. Medications Administered Discontinued Medications Generic Name Dose Route Start Last Admin Trade Name Freq PRN Reason Stop Dose Admin Al Hydroxide/Mg Hydroxide 30 ml 07/19/22 21:58 07/19/22 22:15 Magnesium Hydrox/Alum Hydrox 30 Ml Oral.Susp PO 07/19/22 21:59 30 ml ONCE ONE Administration Lidocaine HCl 15 ml 07/19/22 21:58 07/19/22 22:14 Lidocaine Hcl Viscous 2 % 15 Ml Solution MUCOUS MEM 07/19/22 21:59 15 ml ONCE ONE Administration Medical Decision Making Medical Decision Making [facility] Narrative: Patient with recurrent chest pain mostly epigastric area likely from Good multiple evaluation in the ER negative discharge patient home advised to start taking sucralfate along with Protonix Lab Data MDM Lab Attestation statement: I reviewed the patient's lab results. Result Diagrams: 07/19/22 21:59 07/19/22 21:59 Labs: Lab Results 07/19/22 07/19/22 07/19/22 Range/Units 21:59 21:59 21:59 WBC 6.6 (4.8-10.8) X10*3/uL RBC 3.57 L (4.60-5.80) X10*6/uL Hgb 10.8 L (14.0-18.0) g/dl Hct 32.1 L (42.0-52.0) % MCV 89.9 (80.0-98.0) fL MCH 30.3 (27.0-33.0) pg MCHC 33.6 (31.0-36.0) g/dl RDW 14.0 (11.0-16.0) % Plt Count 321 (160-400) X10*3/uL MPV 8.7 L (9.4-12.4) fL Immature Gran % (Auto) 0.6 H (0.0-0.4) % Neut % (Auto) 56.5 (45-73) % Lymph % (Auto) 27.0 (20-40) % [place] % (Auto) 9.6 (2-11) % Eos % (Auto) 5.7 H (0-4) % Baso % (Auto) 0.6 (0-2) % Lymph # (Auto) 1.8 (1.2-4.9) X10*3/uL [place] # (Auto) 0.6 (0.1-1.2) X10*3/uL Eos # (Auto) 0.4 (0.0-0.4) X10*3/uL Baso # (Auto) 0.0 (0.0-0.2) X10*3/uL Abs Immat Gran (auto) 0.04 H (0.00-0.03) X10*3/uL Absolute Neuts (auto) 3.8 (2.0-8.3) x10*3/uL Absolute Nucleated RBC 0.000 (0.0-0.012) X10*3/uL Nucleated RBC % (auto) 0.0 (0.0-0.2) /100WBC Sodium 138 (135-145) mmol/L Potassium 4.2 (3.3-5.1) mmol/L Chloride 105 (96-108) mmol/L Carbon Dioxide 27 (22-29) mmol/L Anion Gap 10 L (12-20) BUN 13 (9-16) mg/dL Creatinine 0.94 (0.5-1.4) mg/dL Estim Creat Clear Calc 81.8 Estimated GFR > 60 Random Glucose 90 (60-115) mg/dL Calcium 8.8 (8.4-10.2) mg/dL Total Bilirubin < 0.2 (0.0-1.0) mg/dL AST 13 (5-37) U/L ALT 18 (0-40) U/L Alkaline Phosphatase 78 D (39-117) U/L Troponin I High Sens < 3.5 (<3.5-35.0) ng/L Total Protein 6.0 L (6.5-8.0) g/dL Albumin 3.6 (3.5-5.0) g/dL Independent Interpretation I performed an independent interpretation of an: EKG Interpretation: Normal sinus rhythm heart rate 82 beats per minute incomplete right bundle-branch block no acute ST-T no acute ischemia Discharge Plan Discharge Clinical Impression: Atypical chest pain Patient Disposition: Home, Self-Care Instructions: Noncardiac Chest Pain (ED) Additional Instructions: Take medication as prescribed for stomach and follow with PCP Take sucralfate 1 tablet 3 times a day as advised Prescriptions: New sucralfate 1 gram tablet 1 g PO TID Qty: 90 0RF No Action albuterol sulfate [ProAir HFA] 90 mcg/actuation HFA aerosol inhaler 2 puff inhalation Q4-6H PRN (Reason: shortness of breath or wheezing) Qty: 8.5 0RF [id number]-ucwlvezzandag-kpeq [Fioricet] 50-300-40 mg capsule 1 cap PO Q4-6H PRN (Reason: headache) Qty: 14 0RF tramadol 50 mg tablet 50 mg PO Q6H PRN (Reason: pain) Qty: 20 0RF polyethylene glycol 3350 [Miralax] 17 gram/dose powder 17 g PO DAILY Qty: 510 0RF pantoprazole 40 mg tablet,delayed release (DR/EC) 1 tab PO QAM nicotine 21 mg/24 hr Patch 24 Hour 21 mg transdermal DAILY PRN (Reason: nicotine cravings) 28 Days Qty: 28 0RF albuterol sulfate [Ventolin HFA] 90 mcg/actuation Hfa Aerosol Inhaler 2 puff inhalation RQ4H PRN (Reason: Shortness Of Breath) 30 Days Qty: 6.7 0RF atorvastatin 40 mg tablet 1 tab PO BEDTIME quetiapine 300 mg tablet 1 tab PO BEDTIME quetiapine 100 mg tablet 1 tab PO QAM mirtazapine 30 mg tablet 1 tab PO BEDTIME ferrous sulfate [FeroSul] 325 mg (65 mg iron) tablet 1 tab PO BEDTIME verapamil 100 mg capsule, [address] 1 cap PO BEDTIME clonazepam 1 mg tablet 1 tab PO DAILY PRN (Reason: anxiety) tamsulosin 0.4 mg capsule 1 cap PO DAILY fluticasone propionate [Flovent HFA] 220 mcg/actuation HFA aerosol inhaler 2 puff INHALATION BID Interventions: ED Discharge Assessment Last Done: 07/19/22 23:52 Discharge Date/Time: 07/19/22 23:53
[2022-07-19 22:03] LABS: MANUAL DIFF FLAG NO
[2022-07-19 22:05] LABS: Basophils Percent Auto 0.6 % (0-2); Eosinophils Absolute Auto 0.4 X10*3/uL (0.0-0.4); Eosinophils Percent Auto 5.7 % (0-4); Hematocrit 32.1 % (42.0-52.0); Hemoglobin 10.8 g/dl (14.0-18.0); Imm Gran Abs Auto 0.04 X10*3/uL (0.00-0.03); Imm Gran Pct Auto 0.6 % (0.0-0.4); Lymphocytes Absolute Auto 1.8 X10*3/uL (1.2-4.9); Mean Corpuscular HGB Conc 33.6 g/dl (31.0-36.0); Mean Corpuscular Hemoglobin 30.3 pg (27.0-33.0); Mean Corpuscular Volume 89.9 fL (80.0-98.0); Mean Platelet Volume 8.7 fL (9.4-12.4); Monocytes Absolute Auto 0.6 X10*3/uL (0.1-1.2); Monocytes Percent Auto 9.6 % (2-11); Neutrophils Absolute Auto 3.8 x10*3/uL (2.0-8.3); Neutrophils Percent Auto 56.5 % (45-73); Platelet Count 321 X10*3/uL (160-400); Red Blood Count 3.57 X10*6/uL (4.60-5.80); White Blood Count 6.6 X10*3/uL (4.8-10.8)
[2022-07-19] MEDS: Lidocaine HCl Viscous 2 % 15 ML SOLUTION MUCOUS MEM (22:14)
[2022-07-19] MEDS: Magnesium Hydrox/Alum Hydrox 30 ML ORAL.SUSP PO (22:15)
[2022-07-19 22:20] LABS: Alanine Aminotransferase 18 U/L (0-40); Albumin Level 3.6 g/dL (3.5-5.0); Alkaline Phosphatase 78 U/L (39-117); Anion Gap 10 (12-20); Aspartate Amino Transferase 13 U/L (5-37); Bilirubin Total < 0.2 mg/dL (0.0-1.0); Blood Urea Nitrogen 13 mg/dL (9-16); Calcium 8.8 mg/dL (8.4-10.2); Carbon Dioxide 27 mmol/L (22-29); Chloride 105 mmol/L (96-108); Creatinine Clr Calc Pharmacy 81.8; Estimated Glomerular Filt Rate > 60; Glucose Random 90 mg/dL (60-115); Potassium 4.2 mmol/L (3.3-5.1); Sodium 138 mmol/L (135-145)
[2022-07-19 22:26] LABS: Troponin-I High Sensitivity < 3.5 ng/L (<3.5-35.0)
[2022-07-19 23:18] VITALS: BP 114/59; PULSE 82; RESP 17; TEMP 36.6; O2SAT 94
== END 2022-07-19 23:53 | disposition home or self-care (01) ==
PROVIDERS: Emergency Provider Internal Medicine; PCP Internal Medicine
DX: R07.89 Other chest pain (principal); F17.210 Nicotine dependence, cigarettes, uncomplicated; F14.180 Cocaine abuse with cocaine-induced anxiety disorder; F11.10 Opioid abuse, uncomplicated; F12.20 Cannabis dependence, uncomplicated; F33.9 Major depressive disorder, recurrent, unspecified; J44.9 Chronic obstructive pulmonary disease, unspecified; Z79.02 Long term (current) use of antithrombotics/antiplatelets; Z79.899 Other long term (current) drug therapy
CPT/HCPCS: 36415; 80053; 84484; 85025; 93005; 99283; 99284

== ENCOUNTER 2022-08-09 15:31 | Emergency (ER) | payer MEDICAID, OTHER, SELFPAY ==
--- NOTE | ~2022-08-09 | XR_ITS ---
EXAMINATION: XR CHEST CLINICAL INFORMATION: Fall. Chest pain. COMPARISON: Multiple priors, most recently 06/29/2022. TECHNIQUE: Frontal view of the chest was obtained. FINDINGS: The lungs are well expanded. There is no focal consolidation, edema, or effusion. No pneumothorax. The cardiomediastinal silhouette is within normal limits. No acute osseous abnormality. 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 XR/XR chest 1V IMPRESSION: No acute pulmonary disease. No displaced fractures are seen.
--- NOTE | ~2022-08-09 | CT_ITS ---
EXAMINATION: CT HEAD WITHOUT CONTRAST CLINICAL INFORMATION: Fall, loss of consciousness COMPARISON: 01/26/2022 TECHNIQUE: Contiguous axial imaging was performed from the skull base to vertex without intravenous administration of contrast. This CT examination was performed using dose optimization techniques as appropriate, variously including the following: *Automated exposure control *Adjustment of mA and/or kV according to patient size (this includes techniques or standardized protocols for targeted exams where dose is matched to indication/reason for exam; i.e. extremities or head) *Use of iterative reconstruction technique DLP: 671 mGy-cm FINDINGS: There is no evidence of acute intracranial hemorrhage or territorial infarction. No abnormal mass effect or midline shift is seen. Hood to white matter differentiation is well preserved. No extra-axial fluid collections are identified. The ventricles are normal in size. There is mild periventricular and subcortical white matter hypoattenuation, most likely representing microangiopathic disease No abnormal attenuation in the brain parenchyma. No acute calvarial fracture.. Paranasal sinuses and mastoid air cells are well-aerated. CT/CT head/brain wo IV con IMPRESSION: No CT evidence of acute intracranial hemorrhage or edematous territorial infarction.
[2022-08-09 15:39] VITALS: BP 110/70; PULSE 90; O2SAT 96
[2022-08-09 15:45] VITALS: BP 156/86; PULSE 78; RESP 18; TEMP 37.8; O2SAT 97; BMI 24.3
--- NOTE | 2022-08-09 16:06 | ECG_ITS ---
Test Reason : chest pain Blood Pressure : / mmHG Vent. Rate : 066 BPM Atrial Rate : 066 BPM P-R Int : 158 ms QRS Dur : 110 ms QT Int : 422 ms P-R-T Axes : 081 034 079 degrees QTc Int : 442 ms Normal sinus rhythm Incomplete right bundle branch block Borderline ECG When compared with ECG of 19-JUL-2022 21:38, No significant changes seen Referred By: Meghann Engel Electronically Signed By:FREDI LACKEY
[2022-08-09] MEDS: Aspirin Enteric Coated 325 MG TABLET.DR PO (16:27)
[2022-08-09] MEDS: Acetaminophen 325 MG TABLET 975 MG PO (16:28)
--- NOTE | 2022-08-09 16:39 | ED_ITS ---
HPI - Psych General Chief Complaint: Psychiatric Symptoms <Meghann Engel MD - Last Filed: 08/09/22 18:30> Stated Complaint: crisis/hi/fall yesterday <Meghann Engel MD - Last Filed: 08/09/22 18:30> Time Seen by Provider: 08/09/22 15:58 <Meghann Engel MD - Last Filed: 08/09/22 18:30> Source: patient <Meghann Engel MD - Last Filed: 08/09/22 18:30> Mode of arrival: EMS <Meghann Engel MD - Last Filed: 08/09/22 18:30> Limitations: no limitations <Meghann Engel MD - Last Filed: 08/09/22 18:30> History of Present Illness HPI Narrative: Patient comes to the emergency room complaining of chest pain for 2 days. A fall yesterday after an near syncopal episode after standing up quickly. Also, on his way in, patient told the paramedics that patient wanted to . The patient states that he has had constant nonradiating left-sided chest pain for 2 days. Patient is known to use heroin. No cardiac history. Yesterday, patient was lying down in bed, he stood up fast to go to the kitchen, patient states that he nearly passed out and fell on the floor. Patient is unsure if he hit his head. Also, patient states that he has a lot of problems in his life, did not sure specifics. Patient states that he has history of suicide attempts. Patient states that this time he was considering walking [place] to the river and drowning. <Meghann Engel MD - Last Filed: 08/09/22 18:30> Related Data Home Medications: Home Medications Medication Instructions Recorded Confirmed pantoprazole 40 mg tablet,delayed 1 tab PO QAM 04/04/22 08/10/22 release atorvastatin 40 mg tablet 1 tab PO BEDTIME 06/20/22 08/10/22 ferrous sulfate 325 mg (65 mg 1 tab PO BEDTIME 06/20/22 08/10/22 iron) tablet (FeroSul) fluticasone propionate 220 1 puff inhalation BID 06/20/22 08/10/22 mcg/actuation HFA aerosol inhaler (Flovent HFA) tamsulosin 0.4 mg capsule 1 cap PO DAILY 06/20/22 08/10/22 albuterol sulfate 90 mcg/actuation 2 puff inhalation Q4-6H PRN 08/09/22 08/10/22 aerosol inhaler (Ventolin HFA) Shortness Of Breath Or Wheezing baclofen 10 mg tablet 1 tab PO TID 08/10/22 08/10/22 jkzfugcced-jnyuxndhnylps-qsojjiuk 1 tab PO Q6H PRN Headache 08/10/22 08/10/22 50 mg-325 mg-40 mg tablet clonazepam 0.5 mg tablet 1 tab PO TID 08/10/22 08/10/22 hydroxyzine pamoate 100 mg capsule 100 mg PO BID 08/10/22 08/10/22 mirtazapine 15 mg tablet 1 tab PO BEDTIME 08/10/22 08/10/22 quetiapine 100 mg tablet 500 mg PO BEDTIME 08/10/22 08/10/22 quetiapine 200 mg tablet 100 mg PO BID@0900,1200 08/10/22 08/10/22 venlafaxine 75 mg capsule,extended 1 cap PO DAILY 08/10/22 08/10/22 release 24 hr verapamil 120 mg tablet,extended 1 tab PO DAILY 08/10/22 08/10/22 release zolpidem 10 mg tablet 1 tab PO BEDTIME 08/10/22 08/10/22 Previous Rx's Medication Instructions Recorded nicotine 21 mg/24 hr daily 21 mg transdermal DAILY PRN 04/10/22 transdermal patch nicotine cravings 28 days #28 ea polyethylene glycol 3350 17 17 g PO DAILY #510 grams 07/11/22 gram/dose oral powder (Miralax) <Meghann Engel MD - Last Filed: 08/09/22 18:30> Allergies/Adverse Reactions: Allergies Allergy/AdvReac Type Severity Reaction Status Date / Time ibuprofen Allergy Intermediate Stomach Verified 05/30/22 03:07 Upset penicillin V Allergy Intermediate rash Verified 05/30/22 03:07 <Meghann Engel MD - Last Filed: 08/09/22 18:30> Review of Systems Review of Systems: Constitutional : No Weight loss, No Fever, No Chills, No Night Sweats, No Fatigue, No Malaise ENT/Mouth : No Hearing loss, No Ear Pain, No Nasal Congestion, No Sinus Pain, No Hoarseness, No sore throat, No Rhinorrhea, No Swallowing Difficulty Eyes: No Eye Pain, No Swelling, No Redness, No Foreign Body, No Discharge, No Vision Changes Cardiovascular complaining of left-sided chest pain for 2 days, nonradiating, No SOB, No Dyspnea on Exertion, No Orthopnea, No Edema, No Palpitations Respiratory : No Cough, No Sputum, No Wheezing, No Smoke Exposure, No Dyspnea Gastrointestinal : No Nausea, No Vomiting, No Diarrhea, No Constipation, No abdominal Pain, No Hematochezia, No Melena Genitourinary : no irregular bleeding, No Dysuria, No Urinary Frequency, No Hematuria, No Urinary Incontinence, No Urgency, No Flank Pain, No Urinary Flow Changes, No Hesitancy Musculoskeletal : No joint pain, No Myalgias, No Joint Swelling Skin : No Skin Lesions, No rash Neuro : No Weakness, No Numbness, No Paresthesias, No Loss of Consciousness, No Dizziness, complaining of fall, headache, near syncopal episode, unclear if patient hit his head Psych : Complaining of depression, suicidal thoughts, admits using drugs Heme/Lymph: No Bruising, No Bleeding,No Lymphadenopathy Endocrine : No Polyuria, No Polydipsia, No Temperature Intolerance <Meghann Engel MD - Last Filed: 08/09/22 18:30> [facility] Past Medical History Medical History: Medical History Anxiety Asthma BPH (benign prostatic hyperplasia) Cannabis use disorder, moderate, dependence Cocaine use disorder Depression Emphysema of lung Nicotine dependence Opioid use disorder Pulmonary nodules <Meghann Engel MD - Last Filed: 08/09/22 18:30> Surgical History: Surgical History Hx of cholecystectomy <Meghann Engel MD - Last Filed: 08/09/22 18:30> Social History Social History: Social History Household Members: None Housing: Apartment Do you presently have visiting nurse or other home services: Yes Unable to assess alcohol history related to: Unknown Alcohol intake: former Patient Tobacco Use Status: Tobacco use Unknown Tobacco use type: Cigarette Cigarettes Per Day: 4 Smoked in Last 30 Days: Yes e-Cigarette/Vaping Use: Never Used Second Hand Smoke Exposure: No Use of substances other than those prescribed or required for medical reasons: No Substance Use Type: Crack/Cocaine Advance Directives: No Advance Directives Information Provided: No Healthcare Proxy: Yes Guardian: No service: No Sexual orientation: Straight/Heterosexual <Meghann Engel MD - Last Filed: 08/09/22 18:30> Physical Exam Vital Signs: Vital Signs: Last Vital Signs Temp 99.3 F 08/10/22 07:58 Pulse 88 08/10/22 10:32 Resp 12 08/10/22 07:58 BP 115/73 08/10/22 10:32 Pulse Ox 98 08/10/22 10:32 O2 Del Method 08/10/22 10:32 BMI result Body Mass Index 24.3 <Meghann Engel MD - Last Filed: 08/09/22 18:30> Vital Signs: Last Vital Signs Temp 99.3 F 08/10/22 07:58 Pulse 88 08/10/22 10:32 Resp 12 08/10/22 07:58 BP 115/73 08/10/22 10:32 Pulse Ox 98 08/10/22 10:32 O2 Del Method 08/10/22 10:32 BMI result Body Mass Index 24.3 <SANTOSH Dolan - Last Filed: 08/09/22 20:48> Vital Signs: Last Vital Signs Temp 99.3 F 08/10/22 07:58 Pulse 88 08/10/22 10:32 Resp 12 08/10/22 07:58 BP 115/73 08/10/22 10:32 Pulse Ox 98 08/10/22 10:32 O2 Del Method 08/10/22 10:32 BMI result Body Mass Index 24.3 <Regino Ojeda MD - Last Filed: 08/10/22 13:04> Const: Other: Appearance: Alert. Oriented X3. No acute distress. Eyes: Pupils equal, round and reactive to light. ENT: Pharynx normal. Neck: Normal inspection. Neck supple. No lymph nodes noted. No crepitus CVS: Normal heart rate and rhythm. Pulses normal. Normal S1 and S2 Respiratory: No respiratory distress. Breath sounds normal. No Wheezing. No rales Abdomen: Soft and nontender. No rigidity. No distention. Skin: Skin warm and dry. Normal skin color. Normal skin turgor. Extremities: No lower extremity edema. No Lacerations. No Rash Neuro: Oriented X 3. No motor deficit. No sensory deficit. Moving all extremities. No slurred speech. CN 2 through 12 grossly intact Psych: calm, cooperative, normal affect <Meghann Engel MD - Last Filed: 08/09/22 18:30> Course Course Course Narrative: -EKG, labs, imaging pending. -patient was given p.o. aspirin and Tylenol -patient is on a Section 12, care team pending <Meghann Engel MD - Last Filed: 08/09/22 18:30> Reevaluation(s) Reevaluation #1: Patient will be an inpatient bed search for dual diagnosis. <SANTOSH Dolan - Last Filed: 08/09/22 20:48> Reevaluation #2: Physician observation continued: patient is a dual diagnosis bedsearch, he had an uneventful night. He will be reevaluated this morning to make sure admission is still necessary <Regino Ojeda MD - Last Filed: 08/10/22 13:04> Time: 07:24 <Regino Ojeda MD - Last Filed: 08/10/22 13:04> Reevaluation #3: patient known well to CARE team will be discharged but is not suicidal at this time <Regino Ojeda MD - Last Filed: 08/10/22 13:04> Time: 13:03 <Regino Ojeda MD - Last Filed: 08/10/22 13:04> Medications Administered Generic Name Dose Route Start Last Admin Trade Name Freq PRN Reason Stop Dose Admin Nicotine 21 mg 08/10/22 08:19 08/10/22 10:02 Nicotine 21 Mg Patch.Td24 TRANSDERMA 21 mg DAILY PRN Administration nicotine cravings Quetiapine Fumarate 100 mg 08/10/22 12:00 08/10/22 11:18 Quetiapine Fumarate 100 Mg Tablet PO 100 mg BID@0900,1200 [facility] Administration Tamsulosin HCl 0.4 mg 08/10/22 09:00 08/10/22 09:59 Tamsulosin Hcl 0.4 Mg Capsule PO Not Given DAILY [facility] Verapamil HCl 120 mg 08/10/22 10:30 08/10/22 12:18 Verapamil Hcl Sr 120 Mg Tablet.Er PO 120 mg DAILY [facility] Administration Protocol Discontinued Medications Generic Name Dose Route Start Last Admin Trade Name [place] PRN Reason Stop Dose Admin Acetaminophen 975 mg 08/09/22 16:06 08/09/22 16:28 Acetaminophen 325 Mg Tablet PO 08/09/22 16:07 975 mg ONCE ONE Administration Aspirin 325 mg 08/09/22 16:06 08/09/22 16:27 Aspirin Enteric Coated 325 Mg Tablet.Dr PO 08/09/22 16:07 325 mg ONCE ONE Administration Mirtazapine 30 mg 08/09/22 21:45 08/09/22 22:06 Mirtazapine 30 Mg Tablet PO 30 mg BEDTIME [facility] Administration Quetiapine Fumarate 300 mg 08/09/22 21:45 08/09/22 22:06 Quetiapine Fumarate 300 Mg Tablet PO 300 mg BEDTIME [facility] Administration Sucralfate 1 gm 08/10/22 09:00 08/10/22 10:00 Sucralfate 1 Gm Tablet PO Not Given TID [facility] Verapamil HCl 100 mg 08/10/22 08:30 08/10/22 09:34 Verapamil Hcl Sr 100 Mg Cap24h.Pct PO Not Given BEDTIME [facility] Protocol <Meghann Engel MD - Last Filed: 08/09/22 18:30> Medications Administered Generic Name Dose Route Start Last Admin Trade Name Freq PRN Reason Stop Dose Admin Nicotine 21 mg 08/10/22 08:19 08/10/22 10:02 Nicotine 21 Mg Patch.Td24 TRANSDERMA 21 mg DAILY PRN Administration nicotine cravings Quetiapine Fumarate 100 mg 08/10/22 12:00 08/10/22 11:18 Quetiapine Fumarate 100 Mg Tablet PO 100 mg BID@0900,1200 [facility] Administration Tamsulosin HCl 0.4 mg 08/10/22 09:00 08/10/22 09:59 Tamsulosin Hcl 0.4 Mg Capsule PO Not Given DAILY [facility] Verapamil HCl 120 mg 08/10/22 10:30 08/10/22 12:18 Verapamil Hcl Sr 120 Mg Tablet.Er PO 120 mg DAILY [facility] Administration Protocol Discontinued Medications Generic Name Dose Route Start Last Admin Trade Name Freq PRN Reason Stop Dose Admin Acetaminophen 975 mg 08/09/22 16:06 08/09/22 16:28 Acetaminophen 325 Mg Tablet PO 08/09/22 16:07 975 mg ONCE ONE Administration Aspirin 325 mg 08/09/22 16:06 08/09/22 16:27 Aspirin Enteric Coated 325 Mg Tablet. PO 08/09/22 16:07 325 mg ONCE ONE Administration Mirtazapine 30 mg 08/09/22 21:45 08/09/22 22:06 Mirtazapine 30 Mg Tablet PO 30 mg BEDTIME [facility] Administration Quetiapine Fumarate 300 mg 08/09/22 21:45 08/09/22 22:06 Quetiapine Fumarate 300 Mg Tablet PO 300 mg BEDTIME [facility] Administration Sucralfate 1 gm 08/10/22 09:00 08/10/22 10:00 Sucralfate 1 Gm Tablet PO Not Given TID [facility] Verapamil HCl 100 mg 08/10/22 08:30 08/10/22 09:34 Verapamil Hcl Sr 100 Mg Cap24h.Pct PO Not Given BEDTIME [facility] Protocol <SANTOSH Dolan - Last Filed: 08/09/22 20:48> Medications Administered Generic Name Dose Route Start Last Admin Trade Name Freq PRN Reason Stop Dose Admin Nicotine 21 mg 08/10/22 08:19 08/10/22 10:02 Nicotine 21 Mg Patch.Td24 TRANSDERMA 21 mg DAILY PRN Administration nicotine cravings Quetiapine Fumarate 100 mg 08/10/22 12:00 08/10/22 11:18 Quetiapine Fumarate 100 Mg Tablet PO 100 mg BID@0900,1200 [facility] Administration Tamsulosin HCl 0.4 mg 08/10/22 09:00 08/10/22 09:59 Tamsulosin Hcl 0.4 Mg Capsule PO Not Given DAILY [facility] Verapamil HCl 120 mg 08/10/22 10:30 08/10/22 12:18 Verapamil Hcl Sr 120 Mg Tablet.Er PO 120 mg DAILY [facility] Administration Protocol Discontinued Medications Generic Name Dose Route Start Last Admin Trade Name Freq PRN Reason Stop Dose Admin Acetaminophen 975 mg 08/09/22 16:06 08/09/22 16:28 Acetaminophen 325 Mg Tablet PO 08/09/22 16:07 975 mg ONCE ONE Administration Aspirin 325 mg 08/09/22 16:06 08/09/22 16:27 Aspirin Enteric Coated 325 Mg Tablet. PO 08/09/22 16:07 325 mg ONCE ONE Administration Mirtazapine 30 mg 08/09/22 21:45 08/09/22 22:06 Mirtazapine 30 Mg Tablet PO 30 mg BEDTIME [facility] Administration Quetiapine Fumarate 300 mg 08/09/22 21:45 08/09/22 22:06 Quetiapine Fumarate 300 Mg Tablet PO 300 mg BEDTIME [facility] Administration Sucralfate 1 gm 08/10/22 09:00 08/10/22 10:00 Sucralfate 1 Gm Tablet PO Not Given TID [facility] Verapamil HCl 100 mg 08/10/22 08:30 08/10/22 09:34 Verapamil Hcl Sr 100 Mg Cap24h.Pct PO Not Given BEDTIME [facility] Protocol <Regino Ojeda MD - Last Filed: 08/10/22 13:04> Medical Decision Making Medical Decision Making MDM Narrative: -troponin, EKG within normal limits, unlikely the chest pain is from cardiac etiology, it has been ongoing for 2 days, troponin negative after 48 hours -patient waiting to be seen by care team -urine tested positive for cocaine and marijuana. Patient has a small amount of leukocytes but patient has no UTI symptoms. Antibiotic not indicated at this time -care team consult pending -physician observation started at 18:28 <Meghann Engel MD - Last Filed: 08/09/22 18:30> Lab Data Result Diagrams: 08/09/22 16:45 08/09/22 16:45 <Meghann Engel MD - Last Filed: 08/09/22 18:30> Labs: Lab Results 08/09/22 08/09/22 08/09/22 Range/Units 16:45 16:45 16:45 WBC 5.4 (4.8-10.8) X10*3/uL RBC 4.05 L (4.60-5.80) X10*6/uL Hgb 12.1 L (14.0-18.0) g/dl Hct 35.8 L (42.0-52.0) % MCV 88.4 (80.0-98.0) fL MCH 29.9 (27.0-33.0) pg MCHC 33.8 (31.0-36.0) g/dl RDW 13.2 (11.0-16.0) % Plt Count 343 (160-400) X10*3/uL MPV 8.7 L (9.4-12.4) fL Immature Gran % (Auto) 0.2 (0.0-0.4) % Neut % (Auto) 47.9 (45-73) % Lymph % (Auto) 39.6 (20-40) % [place] % (Auto) 7.3 (2-11) % Eos % (Auto) 3.9 (0-4) % Baso % (Auto) 1.1 (0-2) % Lymph # (Auto) 2.1 (1.2-4.9) X10*3/uL [place] # (Auto) 0.4 (0.1-1.2) X10*3/uL Eos # (Auto) 0.2 (0.0-0.4) X10*3/uL Baso # (Auto) 0.1 (0.0-0.2) X10*3/uL Abs Immat Gran (auto) 0.01 (0.00-0.03) X10*3/uL Absolute Neuts (auto) 2.6 (2.0-8.3) x10*3/uL Absolute Nucleated RBC 0.000 (0.0-0.012) X10*3/uL Nucleated RBC % (auto) 0.0 (0.0-0.2) /100WBC PT 11.6 (10.0-13.1) SEC INR 1.0 (0.9-1.1) D-Dimer High Sensitivty NG/ML Sodium 140 (135-145) mmol/L Potassium 4.3 (3.3-5.1) mmol/L Chloride 106 (96-108) mmol/L Carbon Dioxide 25 (22-29) mmol/L Anion Gap 13 (12-20) BUN 15 (9-16) mg/dL Creatinine 0.86 (0.5-1.4) mg/dL Estim Creat Clear Calc 77.4 Estimated GFR > 60 Random Glucose 78 (60-115) mg/dL Calcium 9.0 (8.4-10.2) mg/dL Magnesium 1.9 (1.6-2.6) mg/dL Total Bilirubin 0.4 (0.0-1.0) mg/dL Direct Bilirubin < 0.2 (0.0-0.5) mg/dL AST 14 (5-37) U/L ALT 7 (0-40) U/L Alkaline Phosphatase 93 (39-117) U/L Troponin I High Sens (<3.5-35.0) ng/L B-Natriuretic Peptide (<100) pg/mL Total Protein 6.4 L (6.5-8.0) g/dL Albumin 3.8 (3.5-5.0) g/dL Lipase 26 (8-78) U/L Urine Color Urine Appearance Urine pH (5.0-9.0) Ur Specific [place] (1.005-1.025) Urine Protein (Neg-Trace) mg/dL Urine Glucose (UA) (Negative) mg/dL Urine Ketones (Negative) mg/dL Urine Blood (Negative) Urine Nitrite (Negative) Ur Leukocyte Esterase (Negative) Urine RBC (0-2) /HPF Urine WBC (0-5) /HPF Ur Squamous Epith Cells (0-2) /HPF Urine Bacteria (None Seen) Hyaline Casts (0-2) /LPF Urine Opiates Screen (Not Detect) Urine Fentanyl Screen (Not Detect) Ur Barbiturates Screen (Not Detect) Ur Phencyclidine Scrn (Not Detect) Ur Amphetamines Screen (Not Detect) U Benzodiazepines Scrn (Not Detect) Urine Cocaine Screen (Not Detect) U Marijuana (THC) Screen (Not Detect) Ethyl Alcohol mg/dL COVID-19 ([facility]) (Negative) COVID-19 Clin Com 08/09/22 08/09/22 08/09/22 Range/Units 16:45 16:45 16:45 WBC (4.8-10.8) X10*3/uL RBC (4.60-5.80) X10*6/uL Hgb (14.0-18.0) g/dl Hct (42.0-52.0) % MCV (80.0-98.0) fL MCH (27.0-33.0) pg MCHC (31.0-36.0) g/dl RDW (11.0-16.0) % Plt Count (160-400) X10*3/uL MPV (9.4-12.4) fL Immature Gran % (Auto) (0.0-0.4) % Neut % (Auto) (45-73) % Lymph % (Auto) (20-40) % [place] % (Auto) (2-11) % Eos % (Auto) (0-4) % Baso % (Auto) (0-2) % Lymph # (Auto) (1.2-4.9) X10*3/uL [place] # (Auto) (0.1-1.2) X10*3/uL Eos # (Auto) (0.0-0.4) X10*3/uL Baso # (Auto) (0.0-0.2) X10*3/uL Abs Immat Gran (auto) (0.00-0.03) X10*3/uL Absolute Neuts (auto) (2.0-8.3) x10*3/uL Absolute Nucleated RBC (0.0-0.012) X10*3/uL Nucleated RBC % (auto) (0.0-0.2) /100WBC PT (10.0-13.1) SEC INR (0.9-1.1) D-Dimer High Sensitivty < 150 NG/ML Sodium (135-145) mmol/L Potassium (3.3-5.1) mmol/L Chloride (96-108) mmol/L Carbon Dioxide (22-29) mmol/L Anion Gap (12-20) BUN (9-16) mg/dL Creatinine (0.5-1.4) mg/dL Estim Creat Clear Calc Estimated GFR Random Glucose (60-115) mg/dL Calcium (8.4-10.2) mg/dL Magnesium (1.6-2.6) mg/dL Total Bilirubin (0.0-1.0) mg/dL Direct Bilirubin (0.0-0.5) mg/dL AST (5-37) U/L ALT (0-40) U/L Alkaline Phosphatase (39-117) U/L Troponin I High Sens < 3.5 (<3.5-35.0) ng/L B-Natriuretic Peptide < 10 (<100) pg/mL Total Protein (6.5-8.0) g/dL Albumin (3.5-5.0) g/dL Lipase (8-78) U/L Urine Color Urine Appearance Urine pH (5.0-9.0) Ur Specific [place] (1.005-1.025) Urine Protein (Neg-Trace) mg/dL Urine Glucose (UA) (Negative) mg/dL Urine Ketones (Negative) mg/dL Urine Blood (Negative) Urine Nitrite (Negative) Ur Leukocyte Esterase (Negative) Urine RBC (0-2) /HPF Urine WBC (0-5) /HPF Ur Squamous Epith Cells (0-2) /HPF Urine Bacteria (None Seen) Hyaline Casts (0-2) /LPF Urine Opiates Screen (Not Detect) Urine Fentanyl Screen (Not Detect) Ur Barbiturates Screen (Not Detect) Ur Phencyclidine Scrn (Not Detect) Ur Amphetamines Screen (Not Detect) U Benzodiazepines Scrn (Not Detect) Urine Cocaine Screen (Not Detect) U Marijuana (THC) Screen (Not Detect) Ethyl Alcohol mg/dL COVID-19 ([facility]) (Negative) COVID-19 Clin Com 08/09/22 08/09/22 08/09/22 Range/Units 16:45 17:41 17:41 WBC (4.8-10.8) X10*3/uL RBC (4.60-5.80) X10*6/uL Hgb (14.0-18.0) g/dl Hct (42.0-52.0) % MCV (80.0-98.0) fL MCH (27.0-33.0) pg MCHC (31.0-36.0) g/dl RDW (11.0-16.0) % Plt Count (160-400) X10*3/uL MPV (9.4-12.4) fL Immature Gran % (Auto) (0.0-0.4) % Neut % (Auto) (45-73) % Lymph % (Auto) (20-40) % [place] % (Auto) (2-11) % Eos % (Auto) (0-4) % Baso % (Auto) (0-2) % Lymph # (Auto) (1.2-4.9) X10*3/uL [place] # (Auto) (0.1-1.2) X10*3/uL Eos # (Auto) (0.0-0.4) X10*3/uL Baso # (Auto) (0.0-0.2) X10*3/uL Abs Immat Gran (auto) (0.00-0.03) X10*3/uL Absolute Neuts (auto) (2.0-8.3) x10*3/uL Absolute Nucleated RBC (0.0-0.012) X10*3/uL Nucleated RBC % (auto) (0.0-0.2) /100WBC PT (10.0-13.1) SEC INR (0.9-1.1) D-Dimer High Sensitivty NG/ML Sodium (135-145) mmol/L Potassium (3.3-5.1) mmol/L Chloride (96-108) mmol/L Carbon Dioxide (22-29) mmol/L Anion Gap (12-20) BUN (9-16) mg/dL Creatinine (0.5-1.4) mg/dL Estim Creat Clear Calc Estimated GFR Random Glucose (60-115) mg/dL Calcium (8.4-10.2) mg/dL Magnesium (1.6-2.6) mg/dL Total Bilirubin (0.0-1.0) mg/dL Direct Bilirubin (0.0-0.5) mg/dL AST (5-37) U/L ALT (0-40) U/L Alkaline Phosphatase (39-117) U/L Troponin I High Sens (<3.5-35.0) ng/L B-Natriuretic Peptide (<100) pg/mL Total Protein (6.5-8.0) g/dL Albumin (3.5-5.0) g/dL Lipase (8-78) U/L Urine Color Yellow Urine Appearance Clear Urine pH 5.5 (5.0-9.0) Ur Specific [place] 1.020 (1.005-1.025) Urine Protein Negative (Neg-Trace) mg/dL Urine Glucose (UA) Negative (Negative) mg/dL Urine Ketones Negative (Negative) mg/dL Urine Blood Negative (Negative) Urine Nitrite Negative (Negative) Ur Leukocyte Esterase Trace H (Negative) Urine RBC 0-2 (0-2) /HPF Urine WBC 0-5 (0-5) /HPF Ur Squamous Epith Cells 0-2 (0-2) /HPF Urine Bacteria None Seen (None Seen) Hyaline Casts 0-2 (0-2) /LPF Urine Opiates Screen (Not Detect) Urine Fentanyl Screen (Not Detect) Ur Barbiturates Screen (Not Detect) Ur Phencyclidine Scrn (Not Detect) Ur Amphetamines Screen (Not Detect) U Benzodiazepines Scrn (Not Detect) Urine Cocaine Screen (Not Detect) U Marijuana (THC) Screen (Not Detect) Ethyl Alcohol < 10 mg/dL COVID-19 ([facility]) Negative (Negative) COVID-19 Clin Com See Note 08/09/22 Range/Units 17:41 WBC (4.8-10.8) X10*3/uL RBC (4.60-5.80) X10*6/uL Hgb (14.0-18.0) g/dl Hct (42.0-52.0) % MCV (80.0-98.0) fL MCH (27.0-33.0) pg MCHC (31.0-36.0) g/dl RDW (11.0-16.0) % Plt Count (160-400) X10*3/uL MPV (9.4-12.4) fL Immature Gran % (Auto) (0.0-0.4) % Neut % (Auto) (45-73) % Lymph % (Auto) (20-40) % [place] % (Auto) (2-11) % Eos % (Auto) (0-4) % Baso % (Auto) (0-2) % Lymph # (Auto) (1.2-4.9) X10*3/uL [place] # (Auto) (0.1-1.2) X10*3/uL Eos # (Auto) (0.0-0.4) X10*3/uL Baso # (Auto) (0.0-0.2) X10*3/uL Abs Immat Gran (auto) (0.00-0.03) X10*3/uL Absolute Neuts (auto) (2.0-8.3) x10*3/uL Absolute Nucleated RBC (0.0-0.012) X10*3/uL Nucleated RBC % (auto) (0.0-0.2) /100WBC PT (10.0-13.1) SEC INR (0.9-1.1) D-Dimer High Sensitivty NG/ML Sodium (135-145) mmol/L Potassium (3.3-5.1) mmol/L Chloride (96-108) mmol/L Carbon Dioxide (22-29) mmol/L Anion Gap (12-20) BUN (9-16) mg/dL Creatinine (0.5-1.4) mg/dL Estim Creat Clear Calc Estimated GFR Random Glucose (60-115) mg/dL Calcium (8.4-10.2) mg/dL Magnesium (1.6-2.6) mg/dL Total Bilirubin (0.0-1.0) mg/dL Direct Bilirubin (0.0-0.5) mg/dL AST (5-37) U/L ALT (0-40) U/L Alkaline Phosphatase (39-117) U/L Troponin I High Sens (<3.5-35.0) ng/L B-Natriuretic Peptide (<100) pg/mL Total Protein (6.5-8.0) g/dL Albumin (3.5-5.0) g/dL Lipase (8-78) U/L Urine Color Urine Appearance Urine pH (5.0-9.0) Ur Specific [place] (1.005-1.025) Urine Protein (Neg-Trace) mg/dL Urine Glucose (UA) (Negative) mg/dL Urine Ketones (Negative) mg/dL Urine Blood (Negative) Urine Nitrite (Negative) Ur Leukocyte Esterase (Negative) Urine RBC (0-2) /HPF Urine WBC (0-5) /HPF Ur Squamous Epith Cells (0-2) /HPF Urine Bacteria (None Seen) Hyaline Casts (0-2) /LPF Urine Opiates Screen Not Detected (Not Detect) Urine Fentanyl Screen Not Detected (Not Detect) Ur Barbiturates Screen Not Detected (Not Detect) Ur Phencyclidine Scrn Not Detected (Not Detect) Ur Amphetamines Screen Not Detected (Not Detect) U Benzodiazepines Scrn Not Detected (Not Detect) Urine Cocaine Screen POSITIVE H (Not Detect) U Marijuana (THC) Screen POSITIVE H (Not Detect) Ethyl Alcohol mg/dL COVID-19 ([facility]) (Negative) COVID-19 Clin Com <Meghann Engel MD - Last Filed: 08/09/22 18:30> Lab Results 08/09/22 08/09/22 08/09/22 Range/Units 16:45 16:45 16:45 WBC 5.4 (4.8-10.8) X10*3/uL RBC 4.05 L (4.60-5.80) X10*6/uL Hgb 12.1 L (14.0-18.0) g/dl Hct 35.8 L (42.0-52.0) % MCV 88.4 (80.0-98.0) fL MCH 29.9 (27.0-33.0) pg MCHC 33.8 (31.0-36.0) g/dl RDW 13.2 (11.0-16.0) % Plt Count 343 (160-400) X10*3/uL MPV 8.7 L (9.4-12.4) fL Immature Gran % (Auto) 0.2 (0.0-0.4) % Neut % (Auto) 47.9 (45-73) % Lymph % (Auto) 39.6 (20-40) % [place] % (Auto) 7.3 (2-11) % Eos % (Auto) 3.9 (0-4) % Baso % (Auto) 1.1 (0-2) % Lymph # (Auto) 2.1 (1.2-4.9) X10*3/uL [place] # (Auto) 0.4 (0.1-1.2) X10*3/uL Eos # (Auto) 0.2 (0.0-0.4) X10*3/uL Baso # (Auto) 0.1 (0.0-0.2) X10*3/uL Abs Immat Gran (auto) 0.01 (0.00-0.03) X10*3/uL Absolute Neuts (auto) 2.6 (2.0-8.3) x10*3/uL Absolute Nucleated RBC 0.000 (0.0-0.012) X10*3/uL Nucleated RBC % (auto) 0.0 (0.0-0.2) /100WBC PT 11.6 (10.0-13.1) SEC INR 1.0 (0.9-1.1) D-Dimer High Sensitivty NG/ML Sodium 140 (135-145) mmol/L Potassium 4.3 (3.3-5.1) mmol/L Chloride 106 (96-108) mmol/L Carbon Dioxide 25 (22-29) mmol/L Anion Gap 13 (12-20) BUN 15 (9-16) mg/dL Creatinine 0.86 (0.5-1.4) mg/dL Estim Creat Clear Calc 77.4 Estimated GFR > 60 Random Glucose 78 (60-115) mg/dL Calcium 9.0 (8.4-10.2) mg/dL Magnesium 1.9 (1.6-2.6) mg/dL Total Bilirubin 0.4 (0.0-1.0) mg/dL Direct Bilirubin < 0.2 (0.0-0.5) mg/dL AST 14 (5-37) U/L ALT 7 (0-40) U/L Alkaline Phosphatase 93 (39-117) U/L Troponin I High Sens (<3.5-35.0) ng/L B-Natriuretic Peptide (<100) pg/mL Total Protein 6.4 L (6.5-8.0) g/dL Albumin 3.8 (3.5-5.0) g/dL Lipase 26 (8-78) U/L Urine Color Urine Appearance Urine pH (5.0-9.0) Ur Specific [place] (1.005-1.025) Urine Protein (Neg-Trace) mg/dL Urine Glucose (UA) (Negative) mg/dL Urine Ketones (Negative) mg/dL Urine Blood (Negative) Urine Nitrite (Negative) Ur Leukocyte Esterase (Negative) Urine RBC (0-2) /HPF Urine WBC (0-5) /HPF Ur Squamous Epith Cells (0-2) /HPF Urine Bacteria (None Seen) Hyaline Casts (0-2) /LPF Urine Opiates Screen (Not Detect) Urine Fentanyl Screen (Not Detect) Ur Barbiturates Screen (Not Detect) Ur Phencyclidine Scrn (Not Detect) Ur Amphetamines Screen (Not Detect) U Benzodiazepines Scrn (Not Detect) Urine Cocaine Screen (Not Detect) U Marijuana (THC) Screen (Not Detect) Ethyl Alcohol mg/dL COVID-19 ([facility]) (Negative) COVID-19 Clin Com 08/09/22 08/09/22 08/09/22 Range/Units 16:45 16:45 16:45 WBC (4.8-10.8) X10*3/uL RBC (4.60-5.80) X10*6/uL Hgb (14.0-18.0) g/dl Hct (42.0-52.0) % MCV (80.0-98.0) fL MCH (27.0-33.0) pg MCHC (31.0-36.0) g/dl RDW (11.0-16.0) % Plt Count (160-400) X10*3/uL MPV (9.4-12.4) fL Immature Gran % (Auto) (0.0-0.4) % Neut % (Auto) (45-73) % Lymph % (Auto) (20-40) % [place] % (Auto) (2-11) % Eos % (Auto) (0-4) % Baso % (Auto) (0-2) % Lymph # (Auto) (1.2-4.9) X10*3/uL [place] # (Auto) (0.1-1.2) X10*3/uL Eos # (Auto) (0.0-0.4) X10*3/uL Baso # (Auto) (0.0-0.2) X10*3/uL Abs Immat Gran (auto) (0.00-0.03) X10*3/uL Absolute Neuts (auto) (2.0-8.3) x10*3/uL Absolute Nucleated RBC (0.0-0.012) X10*3/uL Nucleated RBC % (auto) (0.0-0.2) /100WBC PT (10.0-13.1) SEC INR (0.9-1.1) D-Dimer High Sensitivty < 150 NG/ML Sodium (135-145) mmol/L Potassium (3.3-5.1) mmol/L Chloride (96-108) mmol/L Carbon Dioxide (22-29) mmol/L Anion Gap (12-20) BUN (9-16) mg/dL Creatinine (0.5-1.4) mg/dL Estim Creat Clear Calc Estimated GFR Random Glucose (60-115) mg/dL Calcium (8.4-10.2) mg/dL Magnesium (1.6-2.6) mg/dL Total Bilirubin (0.0-1.0) mg/dL Direct Bilirubin (0.0-0.5) mg/dL AST (5-37) U/L ALT (0-40) U/L Alkaline Phosphatase (39-117) U/L Troponin I High Sens < 3.5 (<3.5-35.0) ng/L B-Natriuretic Peptide < 10 (<100) pg/mL Total Protein (6.5-8.0) g/dL Albumin (3.5-5.0) g/dL Lipase (8-78) U/L Urine Color Urine Appearance Urine pH (5.0-9.0) Ur Specific [place] (1.005-1.025) Urine Protein (Neg-Trace) mg/dL Urine Glucose (UA) (Negative) mg/dL Urine Ketones (Negative) mg/dL Urine Blood (Negative) Urine Nitrite (Negative) Ur Leukocyte Esterase (Negative) Urine RBC (0-2) /HPF Urine WBC (0-5) /HPF Ur Squamous Epith Cells (0-2) /HPF Urine Bacteria (None Seen) Hyaline Casts (0-2) /LPF Urine Opiates Screen (Not Detect) Urine Fentanyl Screen (Not Detect) Ur Barbiturates Screen (Not Detect) Ur Phencyclidine Scrn (Not Detect) Ur Amphetamines Screen (Not Detect) U Benzodiazepines Scrn (Not Detect) Urine Cocaine Screen (Not Detect) U Marijuana (THC) Screen (Not Detect) Ethyl Alcohol mg/dL COVID-19 ([facility]) (Negative) COVID-19 Clin Com 08/09/22 08/09/22 08/09/22 Range/Units 16:45 17:41 17:41 WBC (4.8-10.8) X10*3/uL RBC (4.60-5.80) X10*6/uL Hgb (14.0-18.0) g/dl Hct (42.0-52.0) % MCV (80.0-98.0) fL MCH (27.0-33.0) pg MCHC (31.0-36.0) g/dl RDW (11.0-16.0) % Plt Count (160-400) X10*3/uL MPV (9.4-12.4) fL Immature Gran % (Auto) (0.0-0.4) % Neut % (Auto) (45-73) % Lymph % (Auto) (20-40) % [place] % (Auto) (2-11) % Eos % (Auto) (0-4) % Baso % (Auto) (0-2) % Lymph # (Auto) (1.2-4.9) X10*3/uL [place] # (Auto) (0.1-1.2) X10*3/uL Eos # (Auto) (0.0-0.4) X10*3/uL Baso # (Auto) (0.0-0.2) X10*3/uL Abs Immat Gran (auto) (0.00-0.03) X10*3/uL Absolute Neuts (auto) (2.0-8.3) x10*3/uL Absolute Nucleated RBC (0.0-0.012) X10*3/uL Nucleated RBC % (auto) (0.0-0.2) /100WBC PT (10.0-13.1) SEC INR (0.9-1.1) D-Dimer High Sensitivty NG/ML Sodium (135-145) mmol/L Potassium (3.3-5.1) mmol/L Chloride (96-108) mmol/L Carbon Dioxide (22-29) mmol/L Anion Gap (12-20) BUN (9-16) mg/dL Creatinine (0.5-1.4) mg/dL Estim Creat Clear Calc Estimated GFR Random Glucose (60-115) mg/dL Calcium (8.4-10.2) mg/dL Magnesium (1.6-2.6) mg/dL Total Bilirubin (0.0-1.0) mg/dL Direct Bilirubin (0.0-0.5) mg/dL AST (5-37) U/L ALT (0-40) U/L Alkaline Phosphatase (39-117) U/L Troponin I High Sens (<3.5-35.0) ng/L B-Natriuretic Peptide (<100) pg/mL Total Protein (6.5-8.0) g/dL Albumin (3.5-5.0) g/dL Lipase (8-78) U/L Urine Color Yellow Urine Appearance Clear Urine pH 5.5 (5.0-9.0) Ur Specific [place] 1.020 (1.005-1.025) Urine Protein Negative (Neg-Trace) mg/dL Urine Glucose (UA) Negative (Negative) mg/dL Urine Ketones Negative (Negative) mg/dL Urine Blood Negative (Negative) Urine Nitrite Negative (Negative) Ur Leukocyte Esterase Trace H (Negative) Urine RBC 0-2 (0-2) /HPF Urine WBC 0-5 (0-5) /HPF Ur Squamous Epith Cells 0-2 (0-2) /HPF Urine Bacteria None Seen (None Seen) Hyaline Casts 0-2 (0-2) /LPF Urine Opiates Screen (Not Detect) Urine Fentanyl Screen (Not Detect) Ur Barbiturates Screen (Not Detect) Ur Phencyclidine Scrn (Not Detect) Ur Amphetamines Screen (Not Detect) U Benzodiazepines Scrn (Not Detect) Urine Cocaine Screen (Not Detect) U Marijuana (THC) Screen (Not Detect) Ethyl Alcohol < 10 mg/dL COVID-19 ([facility]) Negative (Negative) COVID-19 Clin Com See Note 08/09/22 Range/Units 17:41 WBC (4.8-10.8) X10*3/uL RBC (4.60-5.80) X10*6/uL Hgb (14.0-18.0) g/dl Hct (42.0-52.0) % MCV (80.0-98.0) fL MCH (27.0-33.0) pg MCHC (31.0-36.0) g/dl RDW (11.0-16.0) % Plt Count (160-400) X10*3/uL MPV (9.4-12.4) fL Immature Gran % (Auto) (0.0-0.4) % Neut % (Auto) (45-73) % Lymph % (Auto) (20-40) % [place] % (Auto) (2-11) % Eos % (Auto) (0-4) % Baso % (Auto) (0-2) % Lymph # (Auto) (1.2-4.9) X10*3/uL [place] # (Auto) (0.1-1.2) X10*3/uL Eos # (Auto) (0.0-0.4) X10*3/uL Baso # (Auto) (0.0-0.2) X10*3/uL Abs Immat Gran (auto) (0.00-0.03) X10*3/uL Absolute Neuts (auto) (2.0-8.3) x10*3/uL Absolute Nucleated RBC (0.0-0.012) X10*3/uL Nucleated RBC % (auto) (0.0-0.2) /100WBC PT (10.0-13.1) SEC INR (0.9-1.1) D-Dimer High Sensitivty NG/ML Sodium (135-145) mmol/L Potassium (3.3-5.1) mmol/L Chloride (96-108) mmol/L Carbon Dioxide (22-29) mmol/L Anion Gap (12-20) BUN (9-16) mg/dL Creatinine (0.5-1.4) mg/dL Estim Creat Clear Calc Estimated GFR Random Glucose (60-115) mg/dL Calcium (8.4-10.2) mg/dL Magnesium (1.6-2.6) mg/dL Total Bilirubin (0.0-1.0) mg/dL Direct Bilirubin (0.0-0.5) mg/dL AST (5-37) U/L ALT (0-40) U/L Alkaline Phosphatase (39-117) U/L Troponin I High Sens (<3.5-35.0) ng/L B-Natriuretic Peptide (<100) pg/mL Total Protein (6.5-8.0) g/dL Albumin (3.5-5.0) g/dL Lipase (8-78) U/L Urine Color Urine Appearance Urine pH (5.0-9.0) Ur Specific [place] (1.005-1.025) Urine Protein (Neg-Trace) mg/dL Urine Glucose (UA) (Negative) mg/dL Urine Ketones (Negative) mg/dL Urine Blood (Negative) Urine Nitrite (Negative) Ur Leukocyte Esterase (Negative) Urine RBC (0-2) /HPF Urine WBC (0-5) /HPF Ur Squamous Epith Cells (0-2) /HPF Urine Bacteria (None Seen) Hyaline Casts (0-2) /LPF Urine Opiates Screen Not Detected (Not Detect) Urine Fentanyl Screen Not Detected (Not Detect) Ur Barbiturates Screen Not Detected (Not Detect) Ur Phencyclidine Scrn Not Detected (Not Detect) Ur Amphetamines Screen Not Detected (Not Detect) U Benzodiazepines Scrn Not Detected (Not Detect) Urine Cocaine Screen POSITIVE H (Not Detect) U Marijuana (THC) Screen POSITIVE H (Not Detect) Ethyl Alcohol mg/dL COVID-19 ([facility]) (Negative) COVID-19 Clin Com <SANTOSH Dolan - Last Filed: 08/09/22 20:48> Lab Results 08/09/22 08/09/22 08/09/22 Range/Units 16:45 16:45 16:45 WBC 5.4 (4.8-10.8) X10*3/uL RBC 4.05 L (4.60-5.80) X10*6/uL Hgb 12.1 L (14.0-18.0) g/dl Hct 35.8 L (42.0-52.0) % MCV 88.4 (80.0-98.0) fL MCH 29.9 (27.0-33.0) pg MCHC 33.8 (31.0-36.0) g/dl RDW 13.2 (11.0-16.0) % Plt Count 343 (160-400) X10*3/uL MPV 8.7 L (9.4-12.4) fL Immature Gran % (Auto) 0.2 (0.0-0.4) % Neut % (Auto) 47.9 (45-73) % Lymph % (Auto) 39.6 (20-40) % [place] % (Auto) 7.3 (2-11) % Eos % (Auto) 3.9 (0-4) % Baso % (Auto) 1.1 (0-2) % Lymph # (Auto) 2.1 (1.2-4.9) X10*3/uL [place] # (Auto) 0.4 (0.1-1.2) X10*3/uL Eos # (Auto) 0.2 (0.0-0.4) X10*3/uL Baso # (Auto) 0.1 (0.0-0.2) X10*3/uL Abs Immat Gran (auto) 0.01 (0.00-0.03) X10*3/uL Absolute Neuts (auto) 2.6 (2.0-8.3) x10*3/uL Absolute Nucleated RBC 0.000 (0.0-0.012) X10*3/uL Nucleated RBC % (auto) 0.0 (0.0-0.2) /100WBC PT 11.6 (10.0-13.1) SEC INR 1.0 (0.9-1.1) D-Dimer High Sensitivty NG/ML Sodium 140 (135-145) mmol/L Potassium 4.3 (3.3-5.1) mmol/L Chloride 106 (96-108) mmol/L Carbon Dioxide 25 (22-29) mmol/L Anion Gap 13 (12-20) BUN 15 (9-16) mg/dL Creatinine 0.86 (0.5-1.4) mg/dL Estim Creat Clear Calc 77.4 Estimated GFR > 60 Random Glucose 78 (60-115) mg/dL Calcium 9.0 (8.4-10.2) mg/dL Magnesium 1.9 (1.6-2.6) mg/dL Total Bilirubin 0.4 (0.0-1.0) mg/dL Direct Bilirubin < 0.2 (0.0-0.5) mg/dL AST 14 (5-37) U/L ALT 7 (0-40) U/L Alkaline Phosphatase 93 (39-117) U/L Troponin I High Sens (<3.5-35.0) ng/L B-Natriuretic Peptide (<100) pg/mL Total Protein 6.4 L (6.5-8.0) g/dL Albumin 3.8 (3.5-5.0) g/dL Lipase 26 (8-78) U/L Urine Color Urine Appearance Urine pH (5.0-9.0) Ur Specific [place] (1.005-1.025) Urine Protein (Neg-Trace) mg/dL Urine Glucose (UA) (Negative) mg/dL Urine Ketones (Negative) mg/dL Urine Blood (Negative) Urine Nitrite (Negative) Ur Leukocyte Esterase (Negative) Urine RBC (0-2) /HPF Urine WBC (0-5) /HPF Ur Squamous Epith Cells (0-2) /HPF Urine Bacteria (None Seen) Hyaline Casts (0-2) /LPF Urine Opiates Screen (Not Detect) Urine Fentanyl Screen (Not Detect) Ur Barbiturates Screen (Not Detect) Ur Phencyclidine Scrn (Not Detect) Ur Amphetamines Screen (Not Detect) U Benzodiazepines Scrn (Not Detect) Urine Cocaine Screen (Not Detect) U Marijuana (THC) Screen (Not Detect) Ethyl Alcohol mg/dL COVID-19 ([facility]) (Negative) COVID-19 Clin Com 08/09/22 08/09/22 08/09/22 Range/Units 16:45 16:45 16:45 WBC (4.8-10.8) X10*3/uL RBC (4.60-5.80) X10*6/uL Hgb (14.0-18.0) g/dl Hct (42.0-52.0) % MCV (80.0-98.0) fL MCH (27.0-33.0) pg MCHC (31.0-36.0) g/dl RDW (11.0-16.0) % Plt Count (160-400) X10*3/uL MPV (9.4-12.4) fL Immature Gran % (Auto) (0.0-0.4) % Neut % (Auto) (45-73) % Lymph % (Auto) (20-40) % [place] % (Auto) (2-11) % Eos % (Auto) (0-4) % Baso % (Auto) (0-2) % Lymph # (Auto) (1.2-4.9) X10*3/uL [place] # (Auto) (0.1-1.2) X10*3/uL Eos # (Auto) (0.0-0.4) X10*3/uL Baso # (Auto) (0.0-0.2) X10*3/uL Abs Immat Gran (auto) (0.00-0.03) X10*3/uL Absolute Neuts (auto) (2.0-8.3) x10*3/uL Absolute Nucleated RBC (0.0-0.012) X10*3/uL Nucleated RBC % (auto) (0.0-0.2) /100WBC PT (10.0-13.1) SEC INR (0.9-1.1) D-Dimer High Sensitivty < 150 NG/ML Sodium (135-145) mmol/L Potassium (3.3-5.1) mmol/L Chloride (96-108) mmol/L Carbon Dioxide (22-29) mmol/L Anion Gap (12-20) BUN (9-16) mg/dL Creatinine (0.5-1.4) mg/dL Estim Creat Clear Calc Estimated GFR Random Glucose (60-115) mg/dL Calcium (8.4-10.2) mg/dL Magnesium (1.6-2.6) mg/dL Total Bilirubin (0.0-1.0) mg/dL Direct Bilirubin (0.0-0.5) mg/dL AST (5-37) U/L ALT (0-40) U/L Alkaline Phosphatase (39-117) U/L Troponin I High Sens < 3.5 (<3.5-35.0) ng/L B-Natriuretic Peptide < 10 (<100) pg/mL Total Protein (6.5-8.0) g/dL Albumin (3.5-5.0) g/dL Lipase (8-78) U/L Urine Color Urine Appearance Urine pH (5.0-9.0) Ur Specific [place] (1.005-1.025) Urine Protein (Neg-Trace) mg/dL Urine Glucose (UA) (Negative) mg/dL Urine Ketones (Negative) mg/dL Urine Blood (Negative) Urine Nitrite (Negative) Ur Leukocyte Esterase (Negative) Urine RBC (0-2) /HPF Urine WBC (0-5) /HPF Ur Squamous Epith Cells (0-2) /HPF Urine Bacteria (None Seen) Hyaline Casts (0-2) /LPF Urine Opiates Screen (Not Detect) Urine Fentanyl Screen (Not Detect) Ur Barbiturates Screen (Not Detect) Ur Phencyclidine Scrn (Not Detect) Ur Amphetamines Screen (Not Detect) U Benzodiazepines Scrn (Not Detect) Urine Cocaine Screen (Not Detect) U Marijuana (THC) Screen (Not Detect) Ethyl Alcohol mg/dL COVID-19 ([facility]) (Negative) COVID-19 Clin Com 08/09/22 08/09/22 08/09/22 Range/Units 16:45 17:41 17:41 WBC (4.8-10.8) X10*3/uL RBC (4.60-5.80) X10*6/uL Hgb (14.0-18.0) g/dl Hct (42.0-52.0) % MCV (80.0-98.0) fL MCH (27.0-33.0) pg MCHC (31.0-36.0) g/dl RDW (11.0-16.0) % Plt Count (160-400) X10*3/uL MPV (9.4-12.4) fL Immature Gran % (Auto) (0.0-0.4) % Neut % (Auto) (45-73) % Lymph % (Auto) (20-40) % [place] % (Auto) (2-11) % Eos % (Auto) (0-4) % Baso % (Auto) (0-2) % Lymph # (Auto) (1.2-4.9) X10*3/uL [place] # (Auto) (0.1-1.2) X10*3/uL Eos # (Auto) (0.0-0.4) X10*3/uL Baso # (Auto) (0.0-0.2) X10*3/uL Abs Immat Gran (auto) (0.00-0.03) X10*3/uL Absolute Neuts (auto) (2.0-8.3) x10*3/uL Absolute Nucleated RBC (0.0-0.012) X10*3/uL Nucleated RBC % (auto) (0.0-0.2) /100WBC PT (10.0-13.1) SEC INR (0.9-1.1) D-Dimer High Sensitivty NG/ML Sodium (135-145) mmol/L Potassium (3.3-5.1) mmol/L Chloride (96-108) mmol/L Carbon Dioxide (22-29) mmol/L Anion Gap (12-20) BUN (9-16) mg/dL Creatinine (0.5-1.4) mg/dL Estim Creat Clear Calc Estimated GFR Random Glucose (60-115) mg/dL Calcium (8.4-10.2) mg/dL Magnesium (1.6-2.6) mg/dL Total Bilirubin (0.0-1.0) mg/dL Direct Bilirubin (0.0-0.5) mg/dL AST (5-37) U/L ALT (0-40) U/L Alkaline Phosphatase (39-117) U/L Troponin I High Sens (<3.5-35.0) ng/L B-Natriuretic Peptide (<100) pg/mL Total Protein (6.5-8.0) g/dL Albumin (3.5-5.0) g/dL Lipase (8-78) U/L Urine Color Yellow Urine Appearance Clear Urine pH 5.5 (5.0-9.0) Ur Specific [place] 1.020 (1.005-1.025) Urine Protein Negative (Neg-Trace) mg/dL Urine Glucose (UA) Negative (Negative) mg/dL Urine Ketones Negative (Negative) mg/dL Urine Blood Negative (Negative) Urine Nitrite Negative (Negative) Ur Leukocyte Esterase Trace H (Negative) Urine RBC 0-2 (0-2) /HPF Urine WBC 0-5 (0-5) /HPF Ur Squamous Epith Cells 0-2 (0-2) /HPF Urine Bacteria None Seen (None Seen) Hyaline Casts 0-2 (0-2) /LPF Urine Opiates Screen (Not Detect) Urine Fentanyl Screen (Not Detect) Ur Barbiturates Screen (Not Detect) Ur Phencyclidine Scrn (Not Detect) Ur Amphetamines Screen (Not Detect) U Benzodiazepines Scrn (Not Detect) Urine Cocaine Screen (Not Detect) U Marijuana (THC) Screen (Not Detect) Ethyl Alcohol < 10 mg/dL COVID-19 ([facility]) Negative (Negative) COVID-19 Clin Com See Note 08/09/22 Range/Units 17:41 WBC (4.8-10.8) X10*3/uL RBC (4.60-5.80) X10*6/uL Hgb (14.0-18.0) g/dl Hct (42.0-52.0) % MCV (80.0-98.0) fL MCH (27.0-33.0) pg MCHC (31.0-36.0) g/dl RDW (11.0-16.0) % Plt Count (160-400) X10*3/uL MPV (9.4-12.4) fL Immature Gran % (Auto) (0.0-0.4) % Neut % (Auto) (45-73) % Lymph % (Auto) (20-40) % [place] % (Auto) (2-11) % Eos % (Auto) (0-4) % Baso % (Auto) (0-2) % Lymph # (Auto) (1.2-4.9) X10*3/uL [place] # (Auto) (0.1-1.2) X10*3/uL Eos # (Auto) (0.0-0.4) X10*3/uL Baso # (Auto) (0.0-0.2) X10*3/uL Abs Immat Gran (auto) (0.00-0.03) X10*3/uL Absolute Neuts (auto) (2.0-8.3) x10*3/uL Absolute Nucleated RBC (0.0-0.012) X10*3/uL Nucleated RBC % (auto) (0.0-0.2) /100WBC PT (10.0-13.1) SEC INR (0.9-1.1) D-Dimer High Sensitivty NG/ML Sodium (135-145) mmol/L Potassium (3.3-5.1) mmol/L Chloride (96-108) mmol/L Carbon Dioxide (22-29) mmol/L Anion Gap (12-20) BUN (9-16) mg/dL Creatinine (0.5-1.4) mg/dL Estim Creat Clear Calc Estimated GFR Random Glucose (60-115) mg/dL Calcium (8.4-10.2) mg/dL Magnesium (1.6-2.6) mg/dL Total Bilirubin (0.0-1.0) mg/dL Direct Bilirubin (0.0-0.5) mg/dL AST (5-37) U/L ALT (0-40) U/L Alkaline Phosphatase (39-117) U/L Troponin I High Sens (<3.5-35.0) ng/L B-Natriuretic Peptide (<100) pg/mL Total Protein (6.5-8.0) g/dL Albumin (3.5-5.0) g/dL Lipase (8-78) U/L Urine Color Urine Appearance Urine pH (5.0-9.0) Ur Specific [place] (1.005-1.025) Urine Protein (Neg-Trace) mg/dL Urine Glucose (UA) (Negative) mg/dL Urine Ketones (Negative) mg/dL Urine Blood (Negative) Urine Nitrite (Negative) Ur Leukocyte Esterase (Negative) Urine RBC (0-2) /HPF Urine WBC (0-5) /HPF Ur Squamous Epith Cells (0-2) /HPF Urine Bacteria (None Seen) Hyaline Casts (0-2) /LPF Urine Opiates Screen Not Detected (Not Detect) Urine Fentanyl Screen Not Detected (Not Detect) Ur Barbiturates Screen Not Detected (Not Detect) Ur Phencyclidine Scrn Not Detected (Not Detect) Ur Amphetamines Screen Not Detected (Not Detect) U Benzodiazepines Scrn Not Detected (Not Detect) Urine Cocaine Screen POSITIVE H (Not Detect) U Marijuana (THC) Screen POSITIVE H (Not Detect) Ethyl Alcohol mg/dL COVID-19 ([facility]) (Negative) COVID-19 Clin Com <Regino Ojeda MD - Last Filed: 08/10/22 13:04> Discharge Plan Discharge Clinical Impression: Atypical chest pain, Suicidal ideation, Polysubstance abuse <Meghann Engel MD - Last Filed: 08/09/22 18:30> Patient Disposition: Home, Self-Care <Meghann Engel MD - Last Filed: 08/09/22 18:30> Instructions: Chest Pain (DC), Help Prevent Suicide (ED), Polysubstance Abuse (ED), Suicide Prevention (ED) <Meghann Engel MD - Last Filed: 08/09/22 18:30> Additional Instructions: Take your medications as prescribed. If you were prescribed antibiotics today, it is important that you take your medication to their entirety, do not skip any doses, do not finish them early. Follow-up with your primary care provider this week. Return to the emergency department with new or worsening symptoms. Such as fevers, chills, chest pain, shortness of breath, nausea, vomiting, dizziness, headache, vision changes, lethargy, suicidal ideation, homicidal ideation In case of emergency call 911 <Meghann Engel MD - Last Filed: 08/09/22 18:30> Prescriptions: No Action polyethylene glycol 3350 [Miralax] 17 gram/dose powder 17 g PO DAILY Qty: 510 0RF pantoprazole 40 mg tablet,delayed release (DR/EC) 1 tab PO QAM nicotine 21 mg/24 hr Patch 24 Hour 21 mg transdermal DAILY PRN (Reason: nicotine cravings) 28 Days Qty: 28 0RF atorvastatin 40 mg tablet 1 tab PO BEDTIME ferrous sulfate [FeroSul] 325 mg (65 mg iron) tablet 1 tab PO BEDTIME tamsulosin 0.4 mg capsule 1 cap PO DAILY fluticasone propionate [Flovent HFA] 220 mcg/actuation HFA aerosol inhaler 1 puff INHALATION BID albuterol sulfate [Ventolin HFA] 90 mcg/actuation HFA aerosol inhaler 2 puff INHALATION Q4-6H PRN (Reason: Shortness Of Breath Or Wheezing) verapamil 120 mg tablet extended release 1 tab PO DAILY hydroxyzine pamoate 100 mg capsule 100 mg PO BID venlafaxine 75 mg capsule,extended release 24hr 1 cap PO DAILY quetiapine 200 mg tablet 100 mg PO BID@0900,1200 quetiapine 100 mg tablet 500 mg PO BEDTIME mirtazapine 15 mg tablet 1 tab PO BEDTIME zolpidem 10 mg tablet 1 tab PO BEDTIME clonazepam 0.5 mg tablet 1 tab PO TID ghsnnrpwre-ilmbrhtypycjj-osgb 50-325-40 mg tablet 1 tab PO Q6H PRN (Reason: Headache) baclofen 10 mg tablet 1 tab PO TID <Meghann Engel MD - Last Filed: 08/09/22 18:30> Referrals: Physician,Unknown J [Primary Care Provider] - 2 days (follow up with therapist in 2 days) <Meghann Engel MD - Last Filed: 08/09/22 18:30> Interventions: Naylor-Suicide Risk Severity Scale Last Done: 08/10/22 07:57 <Mgehann Engel MD - Last Filed: 08/09/22 18:30>
[2022-08-09 16:54] LABS: MANUAL DIFF FLAG NO
[2022-08-09 17:00] LABS: Prothrombin Time 11.6 SEC (10.0-13.1)
[2022-08-09 17:04] LABS: D Dimer High Sensitivity < 150 NG/ML
[2022-08-09 17:16] LABS: Ethanol < 10 mg/dL
[2022-08-09 17:17] LABS: Alanine Aminotransferase 7 U/L (0-40); Albumin Level 3.8 g/dL (3.5-5.0); Alkaline Phosphatase 93 U/L (39-117); Anion Gap 13 (12-20); Aspartate Amino Transferase 14 U/L (5-37); Bilirubin Direct < 0.2 mg/dL (0.0-0.5); Bilirubin Total 0.4 mg/dL (0.0-1.0); Blood Urea Nitrogen 15 mg/dL (9-16); Carbon Dioxide 25 mmol/L (22-29); Chloride 106 mmol/L (96-108); Creatinine Clr Calc Pharmacy 77.4; Estimated Glomerular Filt Rate > 60; Glucose Random 78 mg/dL (60-115); Lipase 26 U/L (8-78); Magnesium 1.9 mg/dL (1.6-2.6); Potassium 4.3 mmol/L (3.3-5.1); Sodium 140 mmol/L (135-145); Total Protein 6.4 g/dL (6.5-8.0)
[2022-08-09 17:24] LABS: Basophils Absolute Auto 0.1 X10*3/uL (0.0-0.2); Basophils Percent Auto 1.1 % (0-2); Eosinophils Absolute Auto 0.2 X10*3/uL (0.0-0.4); Eosinophils Percent Auto 3.9 % (0-4); Hematocrit 35.8 % (42.0-52.0); Hemoglobin 12.1 g/dl (14.0-18.0); Imm Gran Abs Auto 0.01 X10*3/uL (0.00-0.03); Imm Gran Pct Auto 0.2 % (0.0-0.4); Lymphocytes Absolute Auto 2.1 X10*3/uL (1.2-4.9); Lymphocytes Percent Auto 39.6 % (20-40); Mean Corpuscular HGB Conc 33.8 g/dl (31.0-36.0); Mean Corpuscular Hemoglobin 29.9 pg (27.0-33.0); Mean Corpuscular Volume 88.4 fL (80.0-98.0); Mean Platelet Volume 8.7 fL (9.4-12.4); Monocytes Absolute Auto 0.4 X10*3/uL (0.1-1.2); Monocytes Percent Auto 7.3 % (2-11); Neutrophils Absolute Auto 2.6 x10*3/uL (2.0-8.3); Neutrophils Percent Auto 47.9 % (45-73); Platelet Count 343 X10*3/uL (160-400); Red Blood Count 4.05 X10*6/uL (4.60-5.80); Red Cell Distribution Width 13.2 % (11.0-16.0); White Blood Count 5.4 X10*3/uL (4.8-10.8)
[2022-08-09 17:25] LABS: Troponin-I High Sensitivity < 3.5 ng/L (<3.5-35.0)
[2022-08-09 17:52] LABS: Appearance Urine Clear; Color Urine Yellow; Glucose Urine UA Negative (Negative); Leukocyte Esterase Urine Trace (Negative); Nitrite Urine Negative (Negative); PH 5.5 (5.0-9.0); UMIC TRIGGER UACC YES; Urine Blood Negative (Negative); Urine Ketones Negative (Negative); Urine Protein Negative (Neg-Trace)
[2022-08-09 17:56] LABS: Bacteria Urine None Seen (None Seen); Hyaline Casts Urine 0-2 /LPF (0-2); RBC Urine 0-2 /HPF (0-2); Squamous Epithelial Cell Urine 0-2 /HPF (0-2); WBC Urine 0-5 /HPF (0-5)
[2022-08-09 18:10] LABS: COVID-19 Test Negative (Negative); IDNOW Serial# BCCEAD1C
[2022-08-09 18:20] LABS: B Type Natriuretic Peptide < 10 pg/mL (<100)
[2022-08-09 18:23] LABS: Amphetamine Screen Urine Not Detected (Not Detect); Barbiturates, Urine Not Detected (Not Detect); Benzodiazepines Screen Urine Not Detected (Not Detect); Cannabinoid Screen Urine POSITIVE (Not Detect); Cocaine Screen Urine POSITIVE (Not Detect); Fentanyl, urine Not Detected (Not Detect); Opiate Screen Urine Not Detected (Not Detect); Phencyclidine Screen Urine Not Detected (Not Detect)
[2022-08-09] MEDS: Mirtazapine 30 MG TABLET PO (22:06)
[2022-08-09] MEDS: QUEtiapine Fumarate 300 MG TABLET PO (22:06)
[2022-08-10 01:39] VITALS: BP 116/75; PULSE 91; RESP 17; TEMP 36.5; O2SAT 95
--- NOTE | 2022-08-10 06:02 | PC.NURSE ---
Patient slept though the night, no distress observed/reported, med rec completed/medication compliant, patient was assessed by care team, disposition is voluntary inpatient dual bed search, per provider no benzos to patient, VSS, behavior non concerning, will continue to monitor.
[2022-08-10 07:57] VITALS: RESP 16
[2022-08-10 07:58] VITALS: BP 112/78; PULSE 76; RESP 12; TEMP 37.4; O2SAT 97
--- NOTE | 2022-08-10 08:49 | PC.NURSE ---
Medication inputed by ED attending-awaiting pharmacy verification.
--- NOTE | 2022-08-10 09:37 | MHC.CARE ---
Statewide dual dx bedsearch exhausted.
[2022-08-10] MEDS: Nicotine 21 MG PATCH.TD24 TRANSDERMA (10:02)
--- NOTE | 2022-08-10 10:06 | PHA.MEDREC ---
Pharmacy Consult ? Medication Reconciliation Pharmacy has reviewed the medication reconciliation completed by Casey. There were multiple discrepancies. Patient currently filling medications at [facility] but medication list was completed by medication at [facility] pharmacy. List was updated and provider updated on discrepancies on medication that were ordered. Fany Conrad, PharmD
[2022-08-10 10:32] VITALS: BP 115/73; PULSE 88; O2SAT 98
--- NOTE | 2022-08-10 10:46 | PC.NURSE ---
call to pharmacy for verapamil
[2022-08-10] MEDS: QUEtiapine Fumarate 100 MG TABLET PO (11:18)
[2022-08-10] MEDS: VerapamiL HCL SR 120 MG TABLET.ER PO (12:18)
--- NOTE | 2022-08-10 12:41 | PC.NURSE ---
Pt endorses suicidal ideation related to not having Benzodiazepine RX. Jennifer DIRECTOR [employer]AS[employer] aware, [facility] Aware.
== END 2022-08-10 13:14 | disposition home or self-care (01) ==
PROVIDERS: Emergency Provider Emergency Medicine
DX: F33.1 Major depressive disorder, recurrent, moderate (principal); R07.89 Other chest pain; R45.851 Suicidal ideations; R06.02 Shortness of breath; R51.9 Headache, unspecified; F14.10 Cocaine abuse, uncomplicated; F12.10 Cannabis abuse, uncomplicated; Z20.822 Contact with and (suspected) exposure to COVID-19; Z20.828 Contact with and (suspected) exposure to other viral communicable diseases; Z79.899 Other long term (current) drug therapy
CPT/HCPCS: 36415; 70450; 71045; 80048; 80076; 80307; 81001; 82077; 83690; 83735; 83880; 84484; 85025; 85379; 85610; 87635; 93005; 99285; S9485

== ENCOUNTER 2022-08-21 21:10 | Inpatient (IN) | payer OTHER, MEDICAID, SELFPAY ==
--- NOTE | ~2022-08-21 | XR_ITS ---
EXAMINATION: XR KNEE, RIGHT CLINICAL INFORMATION: Pain COMPARISON: None TECHNIQUE: 5 views of the right knee. FINDINGS: No significant knee joint effusion. Bones are normal anatomic alignment with no acute fracture or dislocation seen. Incidental osteochondroma projecting off the posterior lateral distal femoral diaphysis. Mild degenerative changes in the knee joint with joint space loss more so in the medial compartment. XR/XR knee RT 3V IMPRESSION: Mild degenerative changes but no acute fracture or dislocation. Posterior lateral femoral osteochondroma noted.
--- NOTE | ~2022-08-21 | US_ITS ---
EXAMINATION: US VENOUS ULTRASOUND WITH DOPPLER LOWER EXTREMITY, BILATERAL CLINICAL INFORMATION: Lower extremity pain and edema. Warm to touch. COMPARISON: None TECHNIQUE: Ultrasound of the deep veins is performed from the hip to the calf with compression sonography and color and pulse Doppler assessment. Spectral analysis with color-flow imaging is performed. FINDINGS: RIGHT: There is normal venous compression and respiratory variation and augmented flow. The visualized common femoral vein, superficial femoral vein, profunda femoral vein, popliteal vein, and the trifurcation region shows no evidence of deep venous thrombosis. Likely a Dowling's cyst measuring 2.3 x 0.5 cm. LEFT: There is normal venous compression and respiratory variation and augmented flow. The visualized common femoral vein, superficial femoral vein, profunda femoral vein, popliteal vein, and the trifurcation region shows no evidence of deep venous thrombosis. There is no significant popliteal fossa cyst. If the patient's symptoms persist, followup ultrasound in 5 days 7 days might be of value to exclude proximal propagation from a non-visualized calf vein. US/US venous duplex LE BI IMPRESSION: No DVT demonstrated in the bilateral lower extremities.
--- NOTE | ~2022-08-21 | CT_ITS ---
EXAMINATION: CT CHEST WITHOUT CONTRAST CLINICAL INFORMATION: Shortness of breath COMPARISON: Previous chest CTA June 2021 and chest x-ray most recent July 2022 TECHNIQUE: Multidetector volumetric CT imaging of the chest was done. Axial MIP volume rendering provided. Sagittal and coronal reformatted images were obtained. This CT examination was performed using dose optimization techniques as appropriate, variously including the following: *Automated exposure control *Adjustment of mA and/or kV according to patient size (this includes techniques or standardized protocols for targeted exams where dose is matched to indication/reason for exam; i.e. extremities or head) *Use of iterative reconstruction technique DLP: 184 mGy-cm FINDINGS: LUNGS: There is evidence of emphysema emphysema. Stable 2 mm right apical nodule axial image 51 series 4. New 4 mm right middle lobe nodule axial image 268 series 4. MEDIASTINUM: There is prominent soft tissue seen in the anterior mediastinum. 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 This does not appear appreciably changed from June [address] There are small mediastinal lymph nodes. Normal heart size. No pericardial effusion. Normal caliber thoracic aorta. CORONARY ARTERY CALCIFICATION: Mild PLEURA: There is no pleural effusion. No pleural mass or thickening. Bilateral posterior medial small diaphragmatic hernias containing fat. AXILLA: No lymphadenopathy. UPPER ABDOMEN: Small bilateral renal stones. OSSEOUS STRUCTURES: Unremarkable. CT/CT chest wo IV con IMPRESSION: Emphysema. Small right pulmonary nodules, including small new 4 mm right middle lobe nodule. According to the UPDATED 2017 Fleischner Society recommendations, the advised follow-up imaging for less than 6 mm solid nodule: Low risk, no chest CT follow-up and high risk, optional chest CT follow-up in one year. [place] prominent soft tissue seen in the anterior superior mediastinum, question representing thymic hyperplasia. This is similar to June 2021 chest CTA. Mild coronary artery calcification. Fleischner guidelines were followed.
[2022-08-21 21:19] VITALS: BP 124/80; BP 140/88; PULSE 91; PULSE 98; RESP 16; TEMP 36.7; O2SAT 92; O2SAT 97; BMI 24.3
--- NOTE | 2022-08-21 22:01 | ED_ITS ---
HPI - Psych General Chief Complaint: Psychiatric Symptoms Stated Complaint: SI Time Seen by Provider: 08/21/22 21:15 History of Present Illness HPI Narrative: Patient is a 57-year-old male presents today with having suicidal thoughts after using cocaine. Patient had thoughts about jumping off a bridge. Positive history of depression. Positive his previous history of polysubstance abuse. Patient denied having access to a gun. Been compliant with his medications. Related Data Home Medications Medication Instructions Recorded Confirmed pantoprazole 40 mg tablet,delayed 1 tab PO QAM 04/04/22 08/21/22 release atorvastatin 40 mg tablet 1 tab PO BEDTIME 06/20/22 08/21/22 ferrous sulfate 325 mg (65 mg 1 tab PO BEDTIME 06/20/22 08/21/22 iron) tablet (FeroSul) fluticasone propionate 220 1 puff inhalation BID 06/20/22 08/21/22 mcg/actuation HFA aerosol inhaler (Flovent HFA) tamsulosin 0.4 mg capsule 1 cap PO DAILY 06/20/22 08/22/22 albuterol sulfate 90 mcg/actuation 2 puff inhalation Q4-6H PRN 08/09/22 08/21/22 aerosol inhaler (Ventolin HFA) Shortness Of Breath Or Wheezing baclofen 10 mg tablet 1 tab PO TID 08/10/22 08/22/22 pxmlcnnath-bosrztagmunhw-uwccwicl 1 tab PO Q6H PRN Headache 08/10/22 08/22/22 50 mg-325 mg-40 mg tablet clonazepam 0.5 mg tablet 1 tab PO TID 08/10/22 08/21/22 hydroxyzine pamoate 100 mg capsule 100 mg PO BID 08/10/22 08/21/22 mirtazapine 15 mg tablet 1 tab PO BEDTIME 08/10/22 08/21/22 quetiapine 100 mg tablet 500 mg PO BEDTIME 08/10/22 08/21/22 quetiapine 200 mg tablet 100 mg PO BID@0900,1200 08/10/22 08/21/22 venlafaxine 75 mg capsule,extended 1 cap PO DAILY 08/10/22 08/21/22 release 24 hr verapamil 120 mg tablet,extended 1 tab PO DAILY 08/10/22 08/21/22 release zolpidem 10 mg tablet 1 tab PO BEDTIME 08/10/22 08/21/22 Previous Rx's Medication Instructions Recorded nicotine 21 mg/24 hr daily 21 mg transdermal DAILY PRN 04/10/22 transdermal patch nicotine cravings 28 days #28 ea polyethylene glycol 3350 17 17 g PO DAILY #510 grams 07/11/22 gram/dose oral powder (Miralax) Allergies Allergy/AdvReac Type Severity Reaction Status Date / Time ibuprofen Allergy Intermediate Stomach Verified 05/30/22 03:07 Upset penicillin V Allergy Intermediate rash Verified 05/30/22 03:07 Review of Systems Review of Systems: Positive suicidal ideation with plan Yes all other systems are reviewed and are negative [facility] Past Medical History Attestation statement: The following information was validated with the patient. Medical History Anxiety Asthma BPH (benign prostatic hyperplasia) Cannabis use disorder, moderate, dependence Cocaine use disorder Depression Emphysema of lung Nicotine dependence Opioid use disorder Pulmonary nodules Surgical History Hx of cholecystectomy Social History Social History Household Members: None Housing: Apartment Do you presently have visiting nurse or other home services: Yes Unable to assess alcohol history related to: Unknown Alcohol intake: former Patient Tobacco Use Status: Tobacco use Unknown Tobacco use type: Cigarette Cigarettes Per Day: 4 e-Cigarette/Vaping Use: Never Used Second Hand Smoke Exposure: No Substance Use Type: Crack/Cocaine Advance Directives: No Advance Directives Information Provided: No service: No Sexual orientation: Straight/Heterosexual Physical Exam Vital Signs: Vital Signs: Last Vital Signs Temp 98.1 F 08/21/22 21:19 Pulse 98 08/21/22 21:19 Resp 16 08/21/22 21:19 BP 124/80 08/21/22 21:19 Pulse Ox 92 08/21/22 21:19 O2 Del Method 08/21/22 21:19 BMI result Body Mass Index 24.3 Appearance: Alert. Oriented X3. No acute distress. Eyes: Pupils equal, round and reactive to light. ENT: Pharynx normal. Neck: Normal inspection. Neck supple. No lymph nodes noted. No crepitus CVS: Normal heart rate and rhythm. Pulses normal. Normal S1 and S2 Respiratory: No respiratory distress. Breath sounds normal. No Wheezing. No rales Abdomen: Soft and nontender. No rigidity. No distention. good BS x4 Skin: Skin warm and dry. Normal skin color. Normal skin turgor. Extremities: No lower extremity edema. Neurovascular intact to all extremities. No Lacerations. No Rash Neuro: Oriented X 3. No motor deficit. No sensory deficit. Moving all extermities. No slurred speech. Cranial nerves grossly intact Medications Administered Generic Name Dose Route Start Last Admin Trade Name Freq PRN Reason Stop Dose Admin Atorvastatin Calcium 40 mg 08/21/22 22:15 08/21/22 22:46 Atorvastatin Calcium 40 Mg Tablet PO 40 mg BEDTIME ADRIEN Administration Clonazepam 0.5 mg 08/21/22 22:15 08/21/22 22:46 Clonazepam 0.5 Mg Tablet PO 0.5 mg TID ADRIEN Administration Hydroxyzine HCl 100 mg 08/21/22 22:15 08/21/22 22:46 Hydroxyzine Hcl 50 Mg Tablet PO 100 mg BID ADRIEN Administration Mirtazapine 15 mg 08/21/22 22:15 08/21/22 22:46 Mirtazapine 15 Mg Tablet PO 15 mg BEDTIME ADRIEN Administration Quetiapine Fumarate 500 mg 08/21/22 22:15 08/22/22 01:21 Quetiapine Fumarate 100 Mg Tablet PO 500 mg BEDTIME ADRIEN Administration Zolpidem Tartrate 5 mg 08/21/22 22:15 08/21/22 22:46 Zolpidem Tartrate 5 Mg Tablet PO 5 mg BEDTIME ADRIEN Administration Discontinued Medications Generic Name Dose Route Start Last Admin Trade Name Freq PRN Reason Stop Dose Admin Omeprazole 1 mg 08/21/22 22:15 08/22/22 01:21 Omeprazole 20 Mg Capsule.Dr GUILLEN Not Given DAILY@0630 [facility] Medical Decision Making Medical Decision Making MDM Narrative: Well-appearing no acute distress. Awaiting care team evaluation for suicidal ideation Differential Diagnosis Depression, suicidal ideation, polysubstance abuse Admission/Observation Consideration of admission/observation: Escalation of care including admission /observation considered Care team to evaluate patient Consult Healthcare Provider Management of the patient was discussed with: Behavioral Health Provider Lab Data [facility] Lab Attestation statement: I reviewed the patient's lab results. Labs: Lab Results 02/05/23 02/05/23 02/05/23 Range/Units 21:38 21:40 21:40 Urine Color Yellow Urine Appearance Clear Urine pH 5.5 (5.0-9.0) Ur Specific [place] 1.025 (1.005-1.025) Urine Protein 30 (1+) H (Neg-Trace) mg/dL Urine Glucose (UA) Negative (Negative) mg/dL Urine Ketones Trace (Negative) mg/dL Urine Blood Negative (Negative) Urine Nitrite Negative (Negative) Ur Leukocyte Esterase Trace H (Negative) Urine RBC 3-5 H (0-2) /HPF Urine WBC 0-5 (0-5) /HPF Ur Squamous Epith Cells 0-2 (0-2) /HPF Urine Bacteria None Seen (None Seen) Hyaline Casts 6-10 (0-2) /LPF Urine Opiates Screen Not Detected (Not Detect) Urine Fentanyl Screen Not Detected (Not Detect) Ur Barbiturates Screen Not Detected (Not Detect) Ur Phencyclidine Scrn POSITIVE H (Not Detect) Ur Amphetamines Screen Not Detected (Not Detect) U Benzodiazepines Scrn POSITIVE H (Not Detect) Urine Cocaine Screen POSITIVE H (Not Detect) U Marijuana (THC) Screen POSITIVE H (Not Detect) COVID-19 ([place]) Negative (Negative) COVID-19 Clin Com See Note Discharge Plan Discharge Clinical Impression: Suicidal ideation Patient Disposition: Still a Patient Prescriptions: No Action polyethylene glycol 3350 [Miralax] 17 gram/dose powder 17 g PO DAILY Qty: 510 0RF pantoprazole 40 mg tablet,delayed release (DR/EC) 1 tab PO QAM nicotine 21 mg/24 hr Patch 24 Hour 21 mg transdermal DAILY PRN (Reason: nicotine cravings) 28 Days Qty: 28 0RF atorvastatin 40 mg tablet 1 tab PO BEDTIME ferrous sulfate [FeroSul] 325 mg (65 mg iron) tablet 1 tab PO BEDTIME tamsulosin 0.4 mg capsule 1 cap PO DAILY fluticasone propionate [Flovent HFA] 220 mcg/actuation HFA aerosol inhaler 1 puff INHALATION BID albuterol sulfate [Ventolin HFA] 90 mcg/actuation HFA aerosol inhaler 2 puff INHALATION Q4-6H PRN (Reason: Shortness Of Breath Or Wheezing) verapamil 120 mg tablet extended release 1 tab PO DAILY hydroxyzine pamoate 100 mg capsule 100 mg PO BID venlafaxine 75 mg capsule,extended release 24hr 1 cap PO DAILY quetiapine 200 mg tablet 100 mg PO BID@0900,1200 quetiapine 100 mg tablet 500 mg PO BEDTIME mirtazapine 15 mg tablet 1 tab PO BEDTIME zolpidem 10 mg tablet 1 tab PO BEDTIME clonazepam 0.5 mg tablet 1 tab PO TID lvjoscrscj-jhbqqygylbccp-oyuh 50-325-40 mg tablet 1 tab PO Q6H PRN (Reason: Headache) baclofen 10 mg tablet 1 tab PO TID Interventions: [place]-Suicide Risk Severity Scale Last Done: 08/21/22 21:28
[2022-08-21 22:22] LABS: Appearance Urine Clear; Color Urine Yellow; Glucose Urine UA Negative (Negative); Leukocyte Esterase Urine Trace (Negative); Nitrite Urine Negative (Negative); PH 5.5 (5.0-9.0); Specific Gravity - Urine 1.025 (1.005-1.025); UMIC TRIGGER UACC YES; Urine Blood Negative (Negative); Urine Ketones Trace mg/dL (Negative); Urine Protein 30 (1+) mg/dL (Neg-Trace)
--- NOTE | 2022-08-21 22:31 | PC.NURSE ---
Pt. requesting a sandwich and oj upon arrival, which was provided to the pt. Pt. reports that he didn't take his night time medications and was asking for those medications. Preliminary med rec completed to cover night time meds. Pt. currently resting in bed.
[2022-08-21 22:34] LABS: Amphetamine Screen Urine Not Detected (Not Detect); Barbiturates, Urine Not Detected (Not Detect); Benzodiazepines Screen Urine POSITIVE (Not Detect); Cannabinoid Screen Urine POSITIVE (Not Detect); Cocaine Screen Urine POSITIVE (Not Detect); Fentanyl, urine Not Detected (Not Detect); Opiate Screen Urine Not Detected (Not Detect); Phencyclidine Screen Urine POSITIVE (Not Detect)
[2022-08-21] MEDS: clonazePAM 0.5 MG TABLET PO (22:46)
[2022-08-21] MEDS: Atorvastatin Calcium 40 MG TABLET PO (22:46)
[2022-08-21] MEDS: hydrOXYzine HCL 50 MG TABLET 100 MG PO (22:46)
[2022-08-21] MEDS: Zolpidem Tartrate 5 MG TABLET PO (22:46)
[2022-08-21] MEDS: Mirtazapine 15 MG TABLET PO (22:46)
[2022-08-21 22:49] LABS: COVID-19 Test Negative (Negative); IDNOW Serial# 6674DD1D
[2022-08-21 23:04] LABS: Bacteria Urine None Seen (None Seen); Squamous Epithelial Cell Urine 0-2 /HPF (0-2); WBC Urine 0-5 /HPF (0-5)
--- NOTE | 2022-08-22 | ECG_ITS ---
Test Reason : prolong QT Blood Pressure : / mmHG Vent. Rate : 079 BPM Atrial Rate : 079 BPM P-R Int : 160 ms QRS Dur : 104 ms QT Int : 402 ms P-R-T Axes : 077 039 080 degrees QTc Int : 460 ms Normal sinus rhythm Incomplete right bundle branch block Nonspecific T wave abnormality Prolonged QT Abnormal ECG When compared with ECG of 09-AUG-2022 17:09, No significant change was found Referred By: Meg Vo Electronically Signed By:AKASH SUAREZ MD
--- NOTE | 2022-08-22 00:13 | PC.NURSE ---
Pt. order for omeprazole came through as 1mg for tonight. Called pharmacy, the pantoprzole that the pt. usually takes is non-formulary and was changed to omeprazole. Order should be for 20mg and given first dose in the am. Pharmacy will correct this for me. Pt. also takes 500mg of seroquel at night. Called pharmacy at 2245 and they were going to deliver. I didn't receive in the psych ED, will look in the main ED.
[2022-08-22] MEDS: QUEtiapine Fumarate 100 MG TABLET 500 MG PO ×2 (01:21→21:28)
--- NOTE | 2022-08-22 01:59 | PC.NURSE ---
Pt. brought in a med-packet from [facility]. It is in with his belongings. Pt. stated he had other medications also but they are locked up at his residence. Pt. currently sleeping, respirations even and unlabored no distress noted. Pt. compliant with night time meds. Will continue to monitor.
[2022-08-22] MEDS: hydrOXYzine HCL 50 MG TABLET 100 MG PO ×2 (09:22→21:28)
[2022-08-22] MEDS: Omeprazole 20 MG CAPSULE.DR PO (09:23)
[2022-08-22] MEDS: QUEtiapine Fumarate 100 MG TABLET PO ×2 (09:23→12:00)
[2022-08-22] MEDS: clonazePAM 0.5 MG TABLET PO ×3 (09:23→21:29)
--- NOTE | 2022-08-22 09:57 | PC.NURSE ---
Pharmacy called for 2 medications not available in Pod or ED.
[2022-08-22] MEDS: VerapamiL HCL SR 120 MG TABLET.ER PO (10:38)
[2022-08-22] MEDS: Venlafaxine HCl ER 75 MG CAP.ER.24H PO (10:38)
[2022-08-22 14:33] LABS: MANUAL DIFF FLAG NO
[2022-08-22 14:41] LABS: Basophils Absolute Auto 0.1 X10*3/uL (0.0-0.2); Basophils Percent Auto 1.2 % (0-2); Eosinophils Absolute Auto 0.3 X10*3/uL (0.0-0.4); Eosinophils Percent Auto 6.2 % (0-4); Hematocrit 35.4 % (42.0-52.0); Imm Gran Abs Auto 0.01 X10*3/uL (0.00-0.03); Imm Gran Pct Auto 0.2 % (0.0-0.4); Lymphocytes Absolute Auto 2.1 X10*3/uL (1.2-4.9); Lymphocytes Percent Auto 41.5 % (20-40); Mean Corpuscular HGB Conc 33.9 g/dl (31.0-36.0); Mean Corpuscular Hemoglobin 29.6 pg (27.0-33.0); Mean Corpuscular Volume 87.4 fL (80.0-98.0); Mean Platelet Volume 8.6 fL (9.4-12.4); Monocytes Absolute Auto 0.4 X10*3/uL (0.1-1.2); Monocytes Percent Auto 7.6 % (2-11); Neutrophils Absolute Auto 2.2 x10*3/uL (2.0-8.3); Neutrophils Percent Auto 43.3 % (45-73); Platelet Count 325 X10*3/uL (160-400); Red Blood Count 4.05 X10*6/uL (4.60-5.80); White Blood Count 5.1 X10*3/uL (4.8-10.8)
[2022-08-22] MEDS: Albuterol Sulfate 90 MCG 8 GM INHALER 2 PUFF INHALE (14:59)
[2022-08-22 15:00] LABS: Alanine Aminotransferase 11 U/L (0-40); Albumin Level 3.5 g/dL (3.5-5.0); Alkaline Phosphatase 94 U/L (39-117); Anion Gap 10 (12-20); Aspartate Amino Transferase 14 U/L (5-37); Bilirubin Total 0.4 mg/dL (0.0-1.0); Blood Urea Nitrogen 11 mg/dL (9-16); Calcium 8.8 mg/dL (8.4-10.2); Carbon Dioxide 26 mmol/L (22-29); Chloride 107 mmol/L (96-108); Creatinine Clr Calc Pharmacy 63.4; Estimated Glomerular Filt Rate > 60; Glucose Random 121 mg/dL (60-115); Potassium 4.2 mmol/L (3.3-5.1); Sodium 139 mmol/L (135-145); Total Protein 5.9 g/dL (6.5-8.0)
[2022-08-22] MEDS: Mirtazapine 15 MG TABLET PO (21:29)
[2022-08-22] MEDS: Zolpidem Tartrate 5 MG TABLET PO (21:29)
[2022-08-22] MEDS: Atorvastatin Calcium 40 MG TABLET PO (21:29)
[2022-08-22 22:37] VITALS: BP 111/75; PULSE 77; TEMP 36.6; O2SAT 98
[2022-08-22 22:41] VITALS: BMI 23.3
--- NOTE | 2022-08-22 22:57 | PC.ADMIT ---
THIS IS ONE OF MANY BEHAVIORAL HEALTH HOSPITALIZATIONS FOR THIS 57 YEAR OLD MALE. LEGAL:CV. DX: MDD. COCAINE USE D/O UNCOMPLICATED. PATIENT WAS A REFERRAL FROM THE CARE TEAM VIA [facility]. PATIENT REPORTS AN INCREASE IN DEPRESSION, RECENT RELAPSE ON STREET DRUGS, PHENCYCLIDINE, BENZOS, COCAINE + MARIJUANA. REPORTS BEING SOBER FOR 8-9 MONTHS, RELAPSED AND SOUGHT OUT HELP WHEN EXPERIENCING + SI TO HANG SELF. DENIES CURRENT W/D S/S. REPORTS + A/V HALLUCINATIONS. STATES IT WAS ''HIS DOG'' THAT KEPT HIM FROM FOLLOWING THROUGH WITH THOUGHTS OF SI. ''I LOVE HIM'' REPORTED ''I FEEL SAFE HERE'' REPORTS POOR SLEEP AND APPETITE BUT DENIES ANY RECENT WEIGHT LOSS. DENIES SMOKING. HX OF ASTHMA, HYPERLIPIDEMIA. COOPERATIVE TO ASSESSMENT. NO OUTPATIENT PROVIDERS FOR BEHAVIORAL HEALTH. REPORTS HAVING [facility] SERVICES AND PCP PRESCRIBES HIS MEDICATIONS ''I WOULD LIKE A THERAPIST'' MEDICATION RECONCILIATION DONE IN THE ER. SAFETY TOOL INITIATED. RN TAKING OVER PATIENTS CARE WILL COMPLETE TREATMENT PLAN, ISSUES OF FOCUS REVIEWED WITH PATIENT. REQUESTED FLU SHOT. ORIENTED TO UNIT.
--- NOTE | 2022-08-22 23:10 | PC.ADMIT ---
ACCOUNT GROUP SUPERVISOR UTILIZED FOR ADMISSION ASSESSMENY
[2022-08-23] MEDS: Albuterol Sulfate 90 MCG 8 GM INHALER 2 PUFF INHALE (05:02)
[2022-08-23 08:00] VITALS: BP 114/67; PULSE 75; RESP 18; TEMP 36.6; O2SAT 98
--- NOTE | 2022-08-23 08:00 | ECG_ITS ---
Test Reason : SUBSTANCE USE, QTC CHECK Blood Pressure : / mmHG Vent. Rate : 077 BPM Atrial Rate : 077 BPM P-R Int : 156 ms QRS Dur : 100 ms QT Int : 392 ms P-R-T Axes : 081 057 081 degrees QTc Int : 443 ms Normal sinus rhythm Incomplete right bundle branch block Borderline ECG When compared with ECG of 22-AUG-2022 14:15, No significant change was found Referred By: Ivan Butt Electronically Signed By:AKASH SUAREZ MD
[2022-08-23] MEDS: VerapamiL HCL SR 120 MG TABLET.ER PO (09:37)
[2022-08-23] MEDS: Venlafaxine HCl ER 75 MG CAP.ER.24H PO (09:37)
[2022-08-23] MEDS: Omeprazole 20 MG CAPSULE.DR PO (09:38)
[2022-08-23] MEDS: QUEtiapine Fumarate 100 MG TABLET PO ×3 (09:38→18:20)
[2022-08-23] MEDS: Tamsulosin HCL 0.4 MG CAPSULE PO (09:38)
[2022-08-23] MEDS: clonazePAM 0.5 MG TABLET PO ×3 (09:38→21:02)
[2022-08-23 09:39] LABS: Alanine Aminotransferase 10 U/L (0-40); Albumin Level 3.5 g/dL (3.5-5.0); Alkaline Phosphatase 90 U/L (39-117); Anion Gap 17 (12-20); Aspartate Amino Transferase 13 U/L (5-37); Bilirubin Total 0.2 mg/dL (0.0-1.0); Blood Urea Nitrogen 9 mg/dL (9-16); Calcium 9.1 mg/dL (8.4-10.2); Carbon Dioxide 22 mmol/L (22-29); Chloride 105 mmol/L (96-108); Cholesterol 134 mg/dL; Estimated Glomerular Filt Rate > 60; Glucose Fasting 140 mg/dL (60-99); HDL Cholesterol 36 mg/dL; LDL Cholesterol Calculated 87 mg/dl; Potassium 4.3 mmol/L (3.3-5.1); Sodium 140 mmol/L (135-145); Total Protein 5.9 g/dL (6.5-8.0); Triglycerides 59 mg/dL
[2022-08-23] MEDS: polyethylene glycoL 3350 17 GM POWD.PACK PO (09:40)
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
[2022-08-23] MEDS: hydrOXYzine HCL 50 MG TABLET PO ×2 (10:40→17:12)
[2022-08-23] MEDS: Sennosides/Docusate Sodium TABLET 1 TAB PO ×2 (11:48→21:02)
[2022-08-23 18:00] VITALS: BP 120/72; PULSE 81; TEMP 36.3; O2SAT 97
[2022-08-23 20:30] VITALS: BP 120/72; PULSE 82; TEMP 36.4; O2SAT 96
[2022-08-23] MEDS: QUEtiapine Fumarate 400 MG TABLET PO (21:02)
[2022-08-23] MEDS: Atorvastatin Calcium 40 MG TABLET PO (21:02)
[2022-08-23] MEDS: Ferrous Sulfate 324 MG TABLET.DR PO (21:02)
[2022-08-23] MEDS: Mirtazapine 15 MG TABLET PO (21:03)
[2022-08-23] MEDS: Milk of Magnesia 30 ML ORAL.SUSP PO (21:03)
[2022-08-24] MEDS: hydrOXYzine HCL 50 MG TABLET PO (01:06)
[2022-08-24] MEDS: Acetaminophen 325 MG TABLET 650 MG PO ×2 (03:11→20:40)
[2022-08-24] MEDS: Albuterol Sulfate 90 MCG 8 GM INHALER 2 PUFF INHALE (03:22)
[2022-08-24 08:00] VITALS: BP 109/63; PULSE 78; TEMP 36.6; O2SAT 96
[2022-08-24] MEDS: Tamsulosin HCL 0.4 MG CAPSULE PO (09:04)
[2022-08-24] MEDS: clonazePAM 0.5 MG TABLET PO ×3 (09:04→21:39)
[2022-08-24] MEDS: Omeprazole 20 MG CAPSULE.DR PO (09:05)
[2022-08-24] MEDS: QUEtiapine Fumarate 100 MG TABLET PO ×2 (09:05→12:20)
[2022-08-24] MEDS: Sennosides/Docusate Sodium TABLET 1 TAB PO ×2 (09:05→21:39)
[2022-08-24] MEDS: Venlafaxine HCl ER 75 MG CAP.ER.24H PO (09:05)
[2022-08-24] MEDS: polyethylene glycoL 3350 17 GM POWD.PACK PO (09:06)
[2022-08-24] MEDS: VerapamiL HCL SR 120 MG TABLET.ER PO (09:06)
--- NOTE | 2022-08-24 10:52 | HO.PSYCHPN ---
Subjective Subjective Date of Service: 08/24/22 Reason For Visit: Suicidal ideation Interim History: Pt reports feeling depressed. He reports poor sleep but nursing reports he woke up once and slept overnight. He was on ambien in the community but concern of multiple controlled substances as he continues to work on his recovery. He continues to report imtermittent SI. No plan. Future oriented, want to be referred to [facility]. No behavioral concerns. reports calf pain on left leg, warmth to touch, painful to touch, will r/o DVT. Medication Compliance: Yes Review of Systems Review of Systems Positive suicidal ideation with plan Yes all other systems are reviewed and are negative Mental Status Exam Mental Status Exam Narrative: Appearance: casually groomed, fair hygiene, in NAD Behavior: cooperative Psychomotor: no agitation or retardation noted Speech: clear, normal rate/rhythm/volume, spontaneous TP: linear TC: no signs of delusions, increase insight into effects of cocaine use, wanting treatment. SI: passive, no plan or intent. HI: none AH/VH: hearing voices, not command. Delusions: none Insight/judgment: poor x 2. Memory/cog: alert, oriented x 3. Diagnostics Vital Signs (24Hr): Vital Signs - 24 hr 08/24/22 18:00 08/25/22 06:00 Temperature 98.7 F 97.8 F Pulse Rate 88 88 Blood Pressure 147/79 H 102/62 Pulse Oximetry 96 96 Oxygen Delivery Method Room Air Room Air BMI result Body Mass Index 24.0 Labs 08/22/22 14:27 08/23/22 08:38 Labs: Laboratory Results - last 48 hr 08/24/22 12:08 D-Dimer High Sensitivty < 150 Imaging Radiology Impressions: ITS Impressions Venous Duplex 08/24/22 15:00 IMPRESSION: No DVT demonstrated in the bilateral lower extremities. Medications Medications Current Medications Acetaminophen (Acetaminophen 325 Mg Tablet) 650 mg PO Q6H PRN PRN Reason: Headache/Pain Mild Scale (1-3) Last Admin: 08/24/22 20:40 Dose: 650 mg Al Hydroxide/Mg Hydroxide (Magnesium Hydrox/Alum Hydrox 30 Ml Oral.Susp) 30 ml PO Q6H PRN PRN Reason: Heartburn/Nausea Last Admin: 08/24/22 20:40 Dose: 30 ml Albuterol Sulfate (Albuterol Sulfate 90 Mcg 8 Gm Inhaler) 2 puff INHALE Q4H PRN PRN Reason: Shortness Of Breath Or Wheezing Last Admin: 08/25/22 02:19 Dose: 2 puff Atorvastatin Calcium (Atorvastatin Calcium 40 Mg Tablet) 40 mg PO BEDTIME REPLACED BY [facility] Last Admin: 08/24/22 21:39 Dose: 40 mg Clonazepam (Clonazepam 0.5 Mg Tablet) 0.5 mg PO TID REPLACED BY [facility] Last Admin: 08/25/22 08:39 Dose: 0.5 mg Ferrous Sulfate (Ferrous Sulfate 324 Mg Tablet.) 324 mg PO BEDTIME REPLACED BY [facility] Last Admin: 08/24/22 21:39 Dose: 324 mg Hydroxyzine HCl (Hydroxyzine Hcl 50 Mg Tablet) 50 mg PO BID PRN PRN Reason: Anxiety Last Admin: 08/25/22 01:39 Dose: 50 mg Magnesium Hydroxide (Milk Of Magnesia 30 Ml Oral.Susp) 30 ml PO DAILY PRN PRN Reason: Constipation Last Admin: 08/23/22 21:03 Dose: 30 ml Mirtazapine (Mirtazapine 30 Mg Tablet) 30 mg PO BEDTIME REPLACED BY [facility] Last Admin: 08/24/22 21:38 Dose: 30 mg Naproxen (Naproxen 250 Mg Tablet) 250 mg PO BIDWM PRN PRN Reason: Pain, Mild (Pain Scale 1-3) Last Admin: 08/25/22 01:44 Dose: 250 mg Omeprazole (Omeprazole 20 Mg Capsule.) 20 mg PO DAILY@0630 REPLACED BY [facility] Last Admin: 08/25/22 08:39 Dose: 20 mg Polyethylene Glycol (Polyethylene Glycol 3350 17 Gm Powd.Pack) 17 gm PO DAILY REPLACED BY [facility] Last Admin: 08/25/22 08:40 Dose: 17 gm Quetiapine Fumarate (Quetiapine Fumarate 100 Mg Tablet) 100 mg PO BID@0900,1200 REPLACED BY [facility] Last Admin: 08/25/22 08:39 Dose: 100 mg Quetiapine Fumarate (Quetiapine Fumarate 400 Mg Tablet) 400 mg PO BEDTIME REPLACED BY [facility] Last Admin: 08/24/22 21:39 Dose: 400 mg Senna/Docusate Sodium (Sennosides/Docusate Sodium Tablet) 1 tab PO BID REPLACED BY [facility] Last Admin: 08/25/22 08:39 Dose: 1 tab Tamsulosin HCl (Tamsulosin Hcl 0.4 Mg Capsule) 0.4 mg PO DAILY REPLACED BY [facility] Last Admin: 08/25/22 08:39 Dose: 0.4 mg Verapamil HCl (Verapamil Hcl Sr 120 Mg Tablet.Er) 120 mg PO DAILY [facility]; Protocol Last Admin: 08/25/22 08:40 Dose: Not Given Allergies Allergies Allergy/AdvReac Type Severity Reaction Status Date / Time ibuprofen Allergy Intermediate Stomach Verified 05/30/22 03:07 Upset penicillin V Allergy Intermediate rash Verified 05/30/22 03:07 Assessment & Plan Assessment & Plan (1) MDD (major depressive disorder), recurrent episode: Status: Acute Code(s): F33.9 - Major depressive disorder, recurrent, unspecified (2) Cocaine use disorder: Status: Acute Code(s): F14.10 - Cocaine abuse, uncomplicated Plan Mr. Ruffin is a 57 year-old male with hx of MDD and cocaine use disorder who self presented to [facility] reporting increase depression, SI inc ontext of ongoing cocaine use. He appears to have increased insight into effects of cocaine use and is asking for dual dx treatment. Pt presents as tearful, with feeling of guilt and shame related to ongoing substance use. We discussed risks, benefits and alternative treatment options. PLAN 1. Admit to M3, CV, 15 minutes checks for safety 2. Continue remeron, seroquel, clonazepam. We discussed risk of use or misuse with controlled substances. 3. Aftercare planning. 08/24 continue current medications. Reason for contiued inpatient stay Substantial Risk for: harm to self Time Spent With Patient Time: Total time managing care of this patient today ____ minutes.
[2022-08-24] MEDS: HaloperidoL 1 MG TABLET 2 MG PO (12:19)
[2022-08-24] MEDS: LORazepam 1 MG TABLET PO (12:20)
[2022-08-24 13:09] LABS: D Dimer High Sensitivity < 150 NG/ML
[2022-08-24 18:00] VITALS: BP 147/79; PULSE 88; TEMP 37.1; O2SAT 96
[2022-08-24] MEDS: NaPROXEN 250 MG TABLET PO (18:52)
[2022-08-24] MEDS: Magnesium Hydrox/Alum Hydrox 30 ML ORAL.SUSP PO (20:40)
[2022-08-24] MEDS: Mirtazapine 30 MG TABLET PO (21:38)
[2022-08-24] MEDS: Atorvastatin Calcium 40 MG TABLET PO (21:39)
[2022-08-24] MEDS: Ferrous Sulfate 324 MG TABLET.DR PO (21:39)
[2022-08-24] MEDS: QUEtiapine Fumarate 400 MG TABLET PO (21:39)
[2022-08-25] MEDS: hydrOXYzine HCL 50 MG TABLET PO ×3 (01:39→17:30)
[2022-08-25] MEDS: NaPROXEN 250 MG TABLET PO (01:44)
[2022-08-25] MEDS: Albuterol Sulfate 90 MCG 8 GM INHALER 2 PUFF INHALE (02:19)
[2022-08-25 06:00] VITALS: BP 102/62; PULSE 88; TEMP 36.6; O2SAT 96
[2022-08-25 07:00] VITALS: BMI 24.0
[2022-08-25] MEDS: QUEtiapine Fumarate 100 MG TABLET PO ×2 (08:39→11:08)
[2022-08-25] MEDS: Tamsulosin HCL 0.4 MG CAPSULE PO (08:39)
[2022-08-25] MEDS: clonazePAM 0.5 MG TABLET PO ×3 (08:39→20:50)
[2022-08-25] MEDS: Omeprazole 20 MG CAPSULE.DR PO (08:39)
[2022-08-25] MEDS: Sennosides/Docusate Sodium TABLET 1 TAB PO ×2 (08:39→20:51)
[2022-08-25] MEDS: polyethylene glycoL 3350 17 GM POWD.PACK PO (08:40)
--- NOTE | 2022-08-25 13:35 | HO.PSYCHPN ---
Subjective Subjective Date of Service: 08/25/22 Reason For Visit: Suicidal ideation Subjective Notes: Conditional Voluntary Interim History: Pt reports not sleeping well last night, periods of sweating, hearing voices of his parents which he know were not his parents. He reports motivation to continue substance use treatment. He reports he is tired of using and really looking to transition to program. He met with recovery engineer yesterday and day before. No behavioral concerns. Medication Compliance: Yes Review of Systems Review of Systems Positive suicidal ideation with plan Yes all other systems are reviewed and are negative Mental Status Exam Mental Status Exam Narrative: Appearance: casually groomed, fair hygiene, in NAD Behavior: cooperative Psychomotor: no agitation or retardation noted Speech: clear, normal rate/rhythm/volume, spontaneous TP: linear TC: no signs of delusions, increase insight into effects of cocaine use, wanting treatment. SI: passive, no plan or intent. HI: none AH/VH: hearing voices, not command. Delusions: none Insight/judgment: poor x 2. Memory/cog: alert, oriented x 3. Diagnostics Vital Signs (24Hr): Vital Signs - 24 hr 08/24/22 18:00 08/25/22 06:00 Temperature 98.7 F 97.8 F Pulse Rate 88 88 Blood Pressure 147/79 H 102/62 Pulse Oximetry 96 96 Oxygen Delivery Method Room Air Room Air BMI result Body Mass Index 24.0 Labs 08/22/22 14:27 08/23/22 08:38 Labs: Laboratory Results - last 48 hr 08/24/22 12:08 D-Dimer High Sensitivty < 150 Imaging Radiology Impressions: ITS Impressions Venous Duplex 08/24/22 15:00 IMPRESSION: No DVT demonstrated in the bilateral lower extremities. Medications Medications Current Medications Acetaminophen (Acetaminophen 325 Mg Tablet) 650 mg PO Q6H PRN PRN Reason: Headache/Pain Mild Scale (1-3) Last Admin: 08/24/22 20:40 Dose: 650 mg Al Hydroxide/Mg Hydroxide (Magnesium Hydrox/Alum Hydrox 30 Ml Oral.Susp) 30 ml PO Q6H PRN PRN Reason: Heartburn/Nausea Last Admin: 08/24/22 20:40 Dose: 30 ml Albuterol Sulfate (Albuterol Sulfate 90 Mcg 8 Gm Inhaler) 2 puff INHALE Q4H PRN PRN Reason: Shortness Of Breath Or Wheezing Last Admin: 08/25/22 02:19 Dose: 2 puff Atorvastatin Calcium (Atorvastatin Calcium 40 Mg Tablet) 40 mg PO BEDTIME [facility] Last Admin: 08/24/22 21:39 Dose: 40 mg Baclofen (Baclofen 10 Mg Tablet) 10 mg PO TID [facility] Clonazepam (Clonazepam 0.5 Mg Tablet) 0.5 mg PO TID [facility] Last Admin: 08/25/22 08:39 Dose: 0.5 mg Ferrous Sulfate (Ferrous Sulfate 324 Mg Tablet.) 324 mg PO BEDTIME [facility] Last Admin: 08/24/22 21:39 Dose: 324 mg Gabapentin (Gabapentin 300 Mg Capsule) 300 mg PO TID [facility] Haloperidol (Haloperidol 1 Mg Tablet) 2 mg PO BID [facility] Hydroxyzine HCl (Hydroxyzine Hcl 50 Mg Tablet) 50 mg PO Q4H PRN PRN Reason: Anxiety Magnesium Hydroxide (Milk Of Magnesia 30 Ml Oral.Susp) 30 ml PO DAILY PRN PRN Reason: Constipation Last Admin: 08/23/22 21:03 Dose: 30 ml Mirtazapine (Mirtazapine 30 Mg Tablet) 30 mg PO BEDTIME [facility] Last Admin: 08/24/22 21:38 Dose: 30 mg Naproxen (Naproxen 250 Mg Tablet) 250 mg PO BIDWM PRN PRN Reason: Pain, Mild (Pain Scale 1-3) Last Admin: 08/25/22 01:44 Dose: 250 mg Omeprazole (Omeprazole 20 Mg Capsule.) 20 mg PO DAILY@0630 [facility] Last Admin: 08/25/22 08:39 Dose: 20 mg Polyethylene Glycol (Polyethylene Glycol 3350 17 Gm Powd.Pack) 17 gm PO DAILY [facility] Last Admin: 08/25/22 08:40 Dose: 17 gm Senna/Docusate Sodium (Sennosides/Docusate Sodium Tablet) 1 tab PO BID [facility] Last Admin: 08/25/22 08:39 Dose: 1 tab Tamsulosin HCl (Tamsulosin Hcl 0.4 Mg Capsule) 0.4 mg PO DAILY [facility] Last Admin: 08/25/22 08:39 Dose: 0.4 mg Verapamil HCl (Verapamil Hcl Sr 120 Mg Tablet.Er) 120 mg PO DAILY [facility]; Protocol Last Admin: 08/25/22 08:40 Dose: Not Given Zolpidem Tartrate (Zolpidem Tartrate 5 Mg Tablet) 5 mg PO BEDTIME [facility] Allergies Allergies Allergy/AdvReac Type Severity Reaction Status Date / Time ibuprofen Allergy Intermediate Stomach Verified 05/30/22 03:07 Upset penicillin V Allergy Intermediate rash Verified 05/30/22 03:07 Assessment & Plan Assessment & Plan (1) MDD (major depressive disorder), recurrent episode: Status: Acute Code(s): F33.9 - Major depressive disorder, recurrent, unspecified (2) Cocaine use disorder: Status: Acute Code(s): F14.10 - Cocaine abuse, uncomplicated Plan Mr. Ruffin is a 57 year-old male with hx of MDD and cocaine use disorder who self [place] [facility] [place] increase depression, SI inc ontext of ongoing cocaine use. He appears to have increased insight into effects of cocaine use and is asking for dual dx treatment. Pt presents as tearful, with feeling of guilt and shame related to ongoing substance use. We discussed risks, benefits and alternative treatment options. PLAN 1. Admit to M3, CV, 15 minutes checks for safety 2. Continue remeron, seroquel, clonazepam. We discussed risk of use or misuse with controlled substances. 3. Aftercare planning. 08/24 continue current medications. 08/25 switch to low dose haldol as he reports seemed to be more helpful. will add gabapentin for neuropathic pain and mood. add baclofen for cocaine cravings/muscle spasm. d/c seroquel. for now will add ambien, as we can normalized his sleep. Reason for contiued inpatient stay Substantial Risk for: harm to self Time Spent With Patient Time: Total time managing care of this patient today ____ minutes.
[2022-08-25] MEDS: Baclofen 10 MG TABLET PO ×3 (14:13→20:50)
[2022-08-25] MEDS: HaloperidoL 1 MG TABLET 2 MG PO ×2 (14:13→20:51)
[2022-08-25] MEDS: Gabapentin 300 MG CAPSULE PO ×3 (14:13→20:51)
--- NOTE | 2022-08-25 16:59 | PC.NURSE ---
Today at 1500 I took over care of Augustin Vital. Gonzalo Titus RN was his nurse from [id number] and administered dose of baclofen 10mg @ 1413 and gabapentin 300mg at 1413. He withdrew these two pills from the xis. He documented the administration of these medications twice. Patient's 1500 doses of these two meds were held until I was able to confirm with Gonzalo Titus RN that he had not administered the 1500 doses. Debra Maria RN Clinical Coordinator informed.
[2022-08-25 20:50] VITALS: BP 126/71; PULSE 95; RESP 18; TEMP 36.6; O2SAT 94
[2022-08-25] MEDS: Atorvastatin Calcium 40 MG TABLET PO (20:50)
[2022-08-25] MEDS: Mirtazapine 30 MG TABLET PO (20:51)
[2022-08-25] MEDS: Acetaminophen 325 MG TABLET 650 MG PO (20:51)
[2022-08-25] MEDS: Ferrous Sulfate 324 MG TABLET.DR PO (20:51)
[2022-08-25] MEDS: Zolpidem Tartrate 5 MG TABLET PO (20:51)
[2022-08-26] MEDS: NaPROXEN 250 MG TABLET PO (00:44)
[2022-08-26] MEDS: hydrOXYzine HCL 50 MG TABLET PO ×4 (00:44→18:58)
[2022-08-26 06:00] VITALS: BP 117/64; PULSE 91; RESP 18; TEMP 37.1; O2SAT 96
[2022-08-26] MEDS: Acetaminophen 325 MG TABLET 650 MG PO (06:56)
[2022-08-26] MEDS: Omeprazole 20 MG CAPSULE.DR PO (06:57)
[2022-08-26] MEDS: Gabapentin 300 MG CAPSULE PO ×3 (09:00→22:29)
[2022-08-26] MEDS: clonazePAM 0.5 MG TABLET PO ×3 (09:00→22:51)
[2022-08-26] MEDS: polyethylene glycoL 3350 17 GM POWD.PACK PO (09:00)
[2022-08-26] MEDS: Sennosides/Docusate Sodium TABLET 1 TAB PO ×2 (09:00→22:28)
[2022-08-26] MEDS: VerapamiL HCL SR 120 MG TABLET.ER PO (09:00)
[2022-08-26] MEDS: Baclofen 10 MG TABLET PO ×3 (09:00→22:29)
[2022-08-26] MEDS: Tamsulosin HCL 0.4 MG CAPSULE PO (09:00)
[2022-08-26] MEDS: HaloperidoL 1 MG TABLET 2 MG PO ×3 (09:00→22:28)
--- NOTE | 2022-08-26 11:14 | P.PNPSI_ITS ---
Subjective Subjective Date of Service: 08/26/22 Reason For Visit: Suicidal ideation Subjective Notes: Conditional Voluntary Interim History: Pt reports not sleeping well last night even with ambien, will restart seroquel. Pt presents with brighter affect. He reports intermittent suicidal ideation but future oriented in that he is highly motivated to continue dual dx residential treatment. No VH/AH. He reports feeling anxious at times. No behavioral concerns. Medication Compliance: Yes Side effects from medications: No Attending Groups: No Review of Systems Review of Systems Positive suicidal ideation with plan Yes all other systems are reviewed and are negative Mental Status Exam Mental Status Exam Narrative: Appearance: casually groomed, fair hygiene, in NAD Behavior: cooperative Psychomotor: no agitation or retardation noted Speech: clear, normal rate/rhythm/volume, spontaneous TP: linear TC: no signs of delusions, increase insight into effects of cocaine use, wanting treatment. SI: passive, no plan or intent. HI: none AH/VH: hearing voices, not command. Delusions: none Insight/judgment: poor x 2. Memory/cog: alert, oriented x 3. Diagnostics Vital Signs (24Hr): Vital Signs - 24 hr 08/26/22 18:00 08/27/22 08:30 Temperature 97.8 F 97.4 F Pulse Rate 88 95 Blood Pressure 140/79 H 105/74 Pulse Oximetry 96 97 Oxygen Delivery Method Room Air Room Air BMI result Body Mass Index 24.0 Labs 08/22/22 14:27 08/23/22 08:38 Imaging Radiology Impressions: ITS Impressions Venous Duplex 08/24/22 15:00 IMPRESSION: No DVT demonstrated in the bilateral lower extremities. Medications Medications Current Medications Acetaminophen (Acetaminophen 325 Mg Tablet) 650 mg PO Q6H PRN PRN Reason: Headache/Pain Mild Scale (1-3) Last Admin: 08/26/22 06:56 Dose: 650 mg Al Hydroxide/Mg Hydroxide (Magnesium Hydrox/Alum Hydrox 30 Ml Oral.Susp) 30 ml PO Q6H PRN PRN Reason: Heartburn/Nausea Last Admin: 08/24/22 20:40 Dose: 30 ml Albuterol Sulfate (Albuterol Sulfate 90 Mcg 8 Gm Inhaler) 2 puff INHALE Q4H PRN PRN Reason: Shortness Of Breath Or Wheezing Last Admin: 08/27/22 06:09 Dose: 2 puff Atorvastatin Calcium (Atorvastatin Calcium 40 Mg Tablet) 40 mg PO BEDTIME [facility] Last Admin: 08/26/22 22:28 Dose: 40 mg Baclofen (Baclofen 10 Mg Tablet) 10 mg PO TID [facility] Last Admin: 08/27/22 08:55 Dose: 10 mg Clonazepam (Clonazepam 0.5 Mg Tablet) 0.5 mg PO TID [facility] Last Admin: 08/27/22 08:56 Dose: 0.5 mg Ferrous Sulfate (Ferrous Sulfate 324 Mg Tablet.) 324 mg PO BEDTIME [facility] Last Admin: 08/26/22 22:28 Dose: 324 mg Gabapentin (Gabapentin 300 Mg Capsule) 300 mg PO TID [facility] Last Admin: 08/27/22 08:54 Dose: 300 mg Haloperidol (Haloperidol 1 Mg Tablet) 2 mg PO TID [facility] Last Admin: 08/27/22 08:54 Dose: 2 mg Hydroxyzine HCl (Hydroxyzine Hcl 50 Mg Tablet) 50 mg PO Q4H PRN PRN Reason: Anxiety Last Admin: 08/26/22 18:58 Dose: 50 mg Magnesium Hydroxide (Milk Of Magnesia 30 Ml Oral.Susp) 30 ml PO DAILY PRN PRN Reason: Constipation Last Admin: 08/23/22 21:03 Dose: 30 ml Mirtazapine (Mirtazapine 30 Mg Tablet) 30 mg PO BEDTIME [facility] Last Admin: 08/26/22 22:29 Dose: 30 mg Naproxen (Naproxen 250 Mg Tablet) 250 mg PO BIDWM PRN PRN Reason: Pain, Mild (Pain Scale 1-3) Last Admin: 08/26/22 00:44 Dose: 250 mg Omeprazole (Omeprazole 20 Mg Capsule.) 20 mg PO DAILY@0630 [facility] Last Admin: 08/27/22 08:56 Dose: 20 mg Polyethylene Glycol (Polyethylene Glycol 3350 17 Gm Powd.Pack) 17 gm PO DAILY [facility] Last Admin: 08/27/22 08:56 Dose: 17 gm Quetiapine Fumarate (Quetiapine Fumarate 200 Mg Tablet) 200 mg PO BEDTIME [facility] Last Admin: 08/26/22 22:28 Dose: 200 mg Senna/Docusate Sodium (Sennosides/Docusate Sodium Tablet) 1 tab PO BID [facility] Last Admin: 08/27/22 08:55 Dose: 1 tab Tamsulosin HCl (Tamsulosin Hcl 0.4 Mg Capsule) 0.4 mg PO DAILY [facility] Last Admin: 08/27/22 08:55 Dose: 0.4 mg Verapamil HCl (Verapamil Hcl Sr 120 Mg Tablet.Er) 120 mg PO DAILY [facility]; Protocol Last Admin: 08/27/22 08:56 Dose: 120 mg Zolpidem Tartrate (Zolpidem Tartrate 5 Mg Tablet) 5 mg PO BEDTIME [facility] Last Admin: 08/26/22 22:29 Dose: 5 mg Allergies Allergies Allergy/AdvReac Type Severity Reaction Status Date / Time ibuprofen Allergy Intermediate Stomach Verified 05/30/22 03:07 Upset penicillin V Allergy Intermediate rash Verified 05/30/22 03:07 Assessment & Plan Assessment & Plan (1) MDD (major depressive disorder), recurrent episode: Status: Acute Code(s): F33.9 - Major depressive disorder, recurrent, unspecified (2) Cocaine use disorder: Status: Acute Code(s): F14.10 - Cocaine abuse, uncomplicated Plan Mr. Ruffin is a 57 year-old male with hx of MDD and cocaine use disorder who self presented to [facility] ED reporting increase depression, SI inc ontext of ongoing cocaine use. He appears to have increased insight into effects of cocaine use and is asking for dual dx treatment. Pt presents as tearful, with feeling of guilt and shame related to ongoing substance use. We discussed risks, benefits and alternative treatment options. PLAN 1. Admit to M3, CV, 15 minutes checks for safety 2. Continue remeron, seroquel, clonazepam. We discussed risk of use or misuse with controlled substances. 3. Aftercare planning. 08/24 continue current medications. 08/25 switch to low dose haldol as he reports seemed to be more helpful. will add gabapentin for neuropathic pain and mood. add baclofen for cocaine cravings/muscle spasm. d/c seroquel. for now will add ambien, as we can normalized his sleep. 08/26 continue current tx. we start seroquel 200mg po qhs. Reason for contiued inpatient stay Substantial Risk for: harm to self Time Spent With Patient Time: Total time managing care of this patient today ____ minutes.
[2022-08-26 18:00] VITALS: BP 140/79; PULSE 88; TEMP 36.6; O2SAT 96
[2022-08-26] MEDS: QUEtiapine Fumarate 200 MG TABLET PO (22:28)
[2022-08-26] MEDS: Atorvastatin Calcium 40 MG TABLET PO (22:28)
[2022-08-26] MEDS: Ferrous Sulfate 324 MG TABLET.DR PO (22:28)
[2022-08-26] MEDS: Zolpidem Tartrate 5 MG TABLET PO (22:29)
[2022-08-26] MEDS: Mirtazapine 30 MG TABLET PO (22:29)
[2022-08-27] MEDS: Albuterol Sulfate 90 MCG 8 GM INHALER 2 PUFF INHALE ×2 (06:09→22:48)
[2022-08-27 08:30] VITALS: BP 105/74; PULSE 95; TEMP 36.3; O2SAT 97
[2022-08-27] MEDS: HaloperidoL 1 MG TABLET 2 MG PO ×3 (08:54→22:11)
[2022-08-27] MEDS: Gabapentin 300 MG CAPSULE PO ×3 (08:54→22:10)
[2022-08-27] MEDS: Tamsulosin HCL 0.4 MG CAPSULE PO (08:55)
[2022-08-27] MEDS: Baclofen 10 MG TABLET PO ×3 (08:55→22:11)
[2022-08-27] MEDS: Sennosides/Docusate Sodium TABLET 1 TAB PO ×2 (08:55→22:11)
[2022-08-27] MEDS: polyethylene glycoL 3350 17 GM POWD.PACK PO (08:56)
[2022-08-27] MEDS: clonazePAM 0.5 MG TABLET PO ×3 (08:56→22:11)
[2022-08-27] MEDS: VerapamiL HCL SR 120 MG TABLET.ER PO (08:56)
[2022-08-27] MEDS: Omeprazole 20 MG CAPSULE.DR PO (08:56)
--- NOTE | 2022-08-27 13:04 | HO.PSYCHPN ---
Subjective Subjective Date of Service: 08/27/22 Reason For Visit: Suicidal ideation Subjective Notes: Conditional Voluntary Interim History: Pt reports sleeping a little better last night; Pt presents with brighter affect. He reports intermittent suicidal ideation but future oriented in that he is highly motivated to continue dual dx residential treatment. No VH/AH. He reports feeling anxious at times. says it is a little better today. No behavioral concerns. Medication Compliance: Yes Side effects from medications: No Attending Groups: No Review of Systems Acute medical concerns: No Medical Review of Systems: unchanged Review of Systems Review of Systems Positive suicidal ideation with plan Yes all other systems are reviewed and are negative Mental Status Exam Mental Status Exam Narrative: Appearance: casually groomed, fair hygiene, in NAD Behavior: cooperative Psychomotor: no agitation or retardation noted Speech: clear, normal rate/rhythm/volume, spontaneous TP: linear TC: no signs of delusions, increase insight into effects of cocaine use, wanting treatment. SI: passive, no plan or intent. HI: none AH/VH: hearing voices, not command. Delusions: none Insight/judgment: poor x 2. Memory/cog: alert, oriented x 3. Diagnostics Vital Signs (24Hr): Vital Signs - 24 hr 08/26/22 18:00 08/27/22 08:30 Temperature 97.8 F 97.4 F Pulse Rate 88 95 Blood Pressure 140/79 H 105/74 Pulse Oximetry 96 97 Oxygen Delivery Method Room Air Room Air BMI result Body Mass Index 24.0 Labs 08/22/22 14:27 08/23/22 08:38 Imaging Radiology Impressions: ITS Impressions Venous Duplex 08/24/22 15:00 IMPRESSION: No DVT demonstrated in the bilateral lower extremities. Medications Medications Current Medications Acetaminophen (Acetaminophen 325 Mg Tablet) 650 mg PO Q6H PRN PRN Reason: Headache/Pain Mild Scale (1-3) Last Admin: 08/26/22 06:56 Dose: 650 mg Al Hydroxide/Mg Hydroxide (Magnesium Hydrox/Alum Hydrox 30 Ml Oral.Susp) 30 ml PO Q6H PRN PRN Reason: Heartburn/Nausea Last Admin: 08/24/22 20:40 Dose: 30 ml Albuterol Sulfate (Albuterol Sulfate 90 Mcg 8 Gm Inhaler) 2 puff INHALE Q4H PRN PRN Reason: Shortness Of Breath Or Wheezing Last Admin: 08/27/22 06:09 Dose: 2 puff Atorvastatin Calcium (Atorvastatin Calcium 40 Mg Tablet) 40 mg PO BEDTIME [facility] Last Admin: 08/26/22 22:28 Dose: 40 mg Baclofen (Baclofen 10 Mg Tablet) 10 mg PO TID [facility] Last Admin: 08/27/22 08:55 Dose: 10 mg Clonazepam (Clonazepam 0.5 Mg Tablet) 0.5 mg PO TID [facility] Last Admin: 08/27/22 08:56 Dose: 0.5 mg Ferrous Sulfate (Ferrous Sulfate 324 Mg Tablet.) 324 mg PO BEDTIME [facility] Last Admin: 08/26/22 22:28 Dose: 324 mg Gabapentin (Gabapentin 300 Mg Capsule) 300 mg PO TID [facility] Last Admin: 08/27/22 08:54 Dose: 300 mg Haloperidol (Haloperidol 1 Mg Tablet) 2 mg PO TID [facility] Last Admin: 08/27/22 08:54 Dose: 2 mg Hydroxyzine HCl (Hydroxyzine Hcl 50 Mg Tablet) 50 mg PO Q4H PRN PRN Reason: Anxiety Last Admin: 08/26/22 18:58 Dose: 50 mg Magnesium Hydroxide (Milk Of Magnesia 30 Ml Oral.Susp) 30 ml PO DAILY PRN PRN Reason: Constipation Last Admin: 08/23/22 21:03 Dose: 30 ml Mirtazapine (Mirtazapine 30 Mg Tablet) 30 mg PO BEDTIME [facility] Last Admin: 08/26/22 22:29 Dose: 30 mg Naproxen (Naproxen 250 Mg Tablet) 250 mg PO BIDWM PRN PRN Reason: Pain, Mild (Pain Scale 1-3) Last Admin: 08/26/22 00:44 Dose: 250 mg Omeprazole (Omeprazole 20 Mg Capsule.) 20 mg PO DAILY@0630 [facility] Last Admin: 08/27/22 08:56 Dose: 20 mg Polyethylene Glycol (Polyethylene Glycol 3350 17 Gm Powd.Pack) 17 gm PO DAILY [facility] Last Admin: 08/27/22 08:56 Dose: 17 gm Quetiapine Fumarate (Quetiapine Fumarate 200 Mg Tablet) 200 mg PO BEDTIME [facility] Last Admin: 08/26/22 22:28 Dose: 200 mg Senna/Docusate Sodium (Sennosides/Docusate Sodium Tablet) 1 tab PO BID [facility] Last Admin: 08/27/22 08:55 Dose: 1 tab Tamsulosin HCl (Tamsulosin Hcl 0.4 Mg Capsule) 0.4 mg PO DAILY [facility] Last Admin: 08/27/22 08:55 Dose: 0.4 mg Verapamil HCl (Verapamil Hcl Sr 120 Mg Tablet.Er) 120 mg PO DAILY [facility]; Protocol Last Admin: 08/27/22 08:56 Dose: 120 mg Zolpidem Tartrate (Zolpidem Tartrate 5 Mg Tablet) 5 mg PO BEDTIME [facility] Last Admin: 08/26/22 22:29 Dose: 5 mg Allergies Allergies Allergy/AdvReac Type Severity Reaction Status Date / Time ibuprofen Allergy Intermediate Stomach Verified 05/30/22 03:07 Upset penicillin V Allergy Intermediate rash Verified 05/30/22 03:07 Assessment & Plan Assessment & Plan (1) MDD (major depressive disorder), recurrent episode: Status: Acute Code(s): F33.9 - Major depressive disorder, recurrent, unspecified (2) Cocaine use disorder: Status: Acute Code(s): F14.10 - Cocaine abuse, uncomplicated Plan Mr. Ruffin is a 57 year-old male with hx of MDD and cocaine use disorder who self presented to [facility] reporting increase depression, SI inc ontext of ongoing cocaine use. He appears to have increased insight into effects of cocaine use and is asking for dual dx treatment. Pt presents as tearful, with feeling of guilt and shame related to ongoing substance use. We discussed risks, benefits and alternative treatment options. PLAN 1. Admit to M3, CV, 15 minutes checks for safety 2. Continue remeron, seroquel, clonazepam. We discussed risk of use or misuse with controlled substances. 3. Aftercare planning. 08/24 continue current medications. 08/25 switch to low dose haldol as he reports seemed to be more helpful. will add gabapentin for neuropathic pain and mood. add baclofen for cocaine cravings/muscle spasm. d/c seroquel. for now will add ambien, as we can normalized his sleep. 08/26 continue current tx. we start seroquel 200mg po qhs. 08/27 continue current treatment plan Reason for contiued inpatient stay Substantial Risk for: harm to self, inability to function, rapid decompensation and med/psych decompensation Time Spent With Patient Time: Total time managing care of this patient today ____ minutes.
[2022-08-27] MEDS: hydrOXYzine HCL 50 MG TABLET PO ×2 (13:05→16:56)
[2022-08-27 22:00] VITALS: BP 128/79; PULSE 81; TEMP 36.6; O2SAT 97
[2022-08-27] MEDS: QUEtiapine Fumarate 200 MG TABLET PO (22:10)
[2022-08-27] MEDS: Ferrous Sulfate 324 MG TABLET.DR PO (22:10)
[2022-08-27] MEDS: Atorvastatin Calcium 40 MG TABLET PO (22:10)
[2022-08-27] MEDS: Mirtazapine 30 MG TABLET PO (22:11)
[2022-08-27] MEDS: Zolpidem Tartrate 5 MG TABLET PO (22:12)
--- NOTE | 2022-08-28 | ECG_ITS ---
Test Reason : chest pain Blood Pressure : / mmHG Vent. Rate : 089 BPM Atrial Rate : 089 BPM P-R Int : 154 ms QRS Dur : 096 ms QT Int : 376 ms P-R-T Axes : 081 063 081 degrees QTc Int : 457 ms Normal sinus rhythm Incomplete right bundle branch block Nonspecific T wave abnormality Abnormal ECG When compared with ECG of 23-AUG-2022 09:18, No significant change was found Referred By: Carolyn Mcgowan Electronically Signed By:Edgar Walker
[2022-08-28] MEDS: hydrOXYzine HCL 50 MG TABLET PO ×3 (03:06→17:51)
[2022-08-28] MEDS: Omeprazole 20 MG CAPSULE.DR PO (06:35)
[2022-08-28 08:27] VITALS: BP 100/68; PULSE 90; TEMP 36.4; O2SAT 97
[2022-08-28] MEDS: HaloperidoL 1 MG TABLET 2 MG PO ×3 (08:28→20:41)
[2022-08-28] MEDS: NaPROXEN 250 MG TABLET PO (08:28)
[2022-08-28] MEDS: Tamsulosin HCL 0.4 MG CAPSULE PO (08:28)
[2022-08-28] MEDS: Sennosides/Docusate Sodium TABLET 1 TAB PO ×2 (08:28→20:41)
[2022-08-28] MEDS: Baclofen 10 MG TABLET PO ×3 (08:29→20:41)
[2022-08-28] MEDS: clonazePAM 0.5 MG TABLET PO ×3 (08:29→20:41)
[2022-08-28] MEDS: VerapamiL HCL SR 120 MG TABLET.ER PO (08:29)
[2022-08-28] MEDS: Gabapentin 300 MG CAPSULE PO ×3 (08:29→20:41)
[2022-08-28] MEDS: polyethylene glycoL 3350 17 GM POWD.PACK PO (08:30)
--- NOTE | 2022-08-28 10:18 | P.PNPSI_ITS ---
Subjective Subjective Date of Service: 08/28/22 Reason For Visit: Suicidal ideation Subjective Notes: Conditional Voluntary Interim History: Pt reported episode of chest pain; ekg done - no change from previous ekg but some t wave abnormaility; consult with hospitalist; troponins done and normal; chest apin subsided; pt reporting anxiety; and pain in leg where bakers cyst . Pt reports sleeping a little better last night but was incontinent overnight; On several sedating meds at bedtime; He reports intermittent suicidal ideation but future oriented in that he is highly motivated to continue dual dx residential treatment. No VH/AH. He reports feeling anxious at times. says it is a little better today. No behavioral concerns. responded well to hydroxyzine for anxiety Medication Compliance: Yes Side effects from medications: No Attending Groups: No Review of Systems chest pain- has had similar episodes in past and seen in ED inpast for atypical chest pain dx noncardiac. EKG and troponins done; ekg no change; troponins normal Medical Review of Systems: unchanged Review of Systems Review of Systems admitted with si bakers cyst Yes all other systems are reviewed and are negative Mental Status Exam Mental Status Exam Narrative: Appearance: casually groomed, fair hygiene, in NAD Behavior: cooperative Psychomotor: no agitation or retardation noted Speech: clear, normal rate/rhythm/volume, spontaneous TP: linear TC: no signs of delusions, increase insight into effects of cocaine use, wanting treatment. SI: passive, no plan or intent. HI: none AH/VH: hearing voices, not command. Delusions: none Insight/judgment: poor x 2. Memory/cog: alert, oriented x 3. Diagnostics Vital Signs (24Hr): Vital Signs - 24 hr 08/27/22 22:00 08/28/22 08:27 Temperature 97.9 F 97.6 F Pulse Rate 81 90 Blood Pressure 128/79 100/68 Pulse Oximetry 97 97 Oxygen Delivery Method Room Air Room Air BMI result Body Mass Index 24.0 Labs 08/22/22 14:27 08/23/22 08:38 Imaging Radiology Impressions: ITS Impressions Venous Duplex 08/24/22 15:00 IMPRESSION: No DVT demonstrated in the bilateral lower extremities. Medications Medications Current Medications Acetaminophen (Acetaminophen 325 Mg Tablet) 650 mg PO Q6H PRN PRN Reason: Headache/Pain Mild Scale (1-3) Last Admin: 08/26/22 06:56 Dose: 650 mg Al Hydroxide/Mg Hydroxide (Magnesium Hydrox/Alum Hydrox 30 Ml Oral.Susp) 30 ml PO Q6H PRN PRN Reason: Heartburn/Nausea Last Admin: 08/24/22 20:40 Dose: 30 ml Albuterol Sulfate (Albuterol Sulfate 90 Mcg 8 Gm Inhaler) 2 puff INHALE Q4H PRN PRN Reason: Shortness Of Breath Or Wheezing Last Admin: 08/27/22 22:48 Dose: 2 puff Atorvastatin Calcium (Atorvastatin Calcium 40 Mg Tablet) 40 mg PO BEDTIME [facility] Last Admin: 08/27/22 22:10 Dose: 40 mg Baclofen (Baclofen 10 Mg Tablet) 10 mg PO TID [facility] Last Admin: 08/28/22 08:29 Dose: 10 mg Clonazepam (Clonazepam 0.5 Mg Tablet) 0.5 mg PO TID [facility] Last Admin: 08/28/22 08:29 Dose: 0.5 mg Ferrous Sulfate (Ferrous Sulfate 324 Mg Tablet.) 324 mg PO BEDTIME [facility] Last Admin: 08/27/22 22:10 Dose: 324 mg Gabapentin (Gabapentin 300 Mg Capsule) 300 mg PO TID [facility] Last Admin: 08/28/22 08:29 Dose: 300 mg Haloperidol (Haloperidol 1 Mg Tablet) 2 mg PO TID [facility] Last Admin: 08/28/22 08:28 Dose: 2 mg Hydroxyzine HCl (Hydroxyzine Hcl 50 Mg Tablet) 50 mg PO Q4H PRN PRN Reason: Anxiety Last Admin: 08/28/22 03:06 Dose: 50 mg Magnesium Hydroxide (Milk Of Magnesia 30 Ml Oral.Susp) 30 ml PO DAILY PRN PRN Reason: Constipation Last Admin: 08/23/22 21:03 Dose: 30 ml Mirtazapine (Mirtazapine 30 Mg Tablet) 30 mg PO BEDTIME [facility] Last Admin: 08/27/22 22:11 Dose: 30 mg Naproxen (Naproxen 250 Mg Tablet) 250 mg PO BIDWM PRN PRN Reason: Pain, Mild (Pain Scale 1-3) Last Admin: 08/28/22 08:28 Dose: 250 mg Omeprazole (Omeprazole 20 Mg Capsule.) 20 mg PO DAILY@0630 [facility] Last Admin: 08/28/22 06:35 Dose: 20 mg Polyethylene Glycol (Polyethylene Glycol 3350 17 Gm Powd.Pack) 17 gm PO DAILY [facility] Last Admin: 08/28/22 08:30 Dose: 17 gm Quetiapine Fumarate (Quetiapine Fumarate 200 Mg Tablet) 200 mg PO BEDTIME [facility] Last Admin: 08/27/22 22:10 Dose: 200 mg Senna/Docusate Sodium (Sennosides/Docusate Sodium Tablet) 1 tab PO BID [facility] Last Admin: 08/28/22 08:28 Dose: 1 tab Tamsulosin HCl (Tamsulosin Hcl 0.4 Mg Capsule) 0.4 mg PO DAILY [facility] Last Admin: 08/28/22 08:28 Dose: 0.4 mg Verapamil HCl (Verapamil Hcl Sr 120 Mg Tablet.Er) 120 mg PO DAILY [facility]; Protocol Last Admin: 08/28/22 08:29 Dose: 120 mg Zolpidem Tartrate (Zolpidem Tartrate 5 Mg Tablet) 5 mg PO BEDTIME [facility] Last Admin: 08/27/22 22:12 Dose: 5 mg Allergies Allergies Allergy/AdvReac Type Severity Reaction Status Date / Time ibuprofen Allergy Intermediate Stomach Verified 05/30/22 03:07 Upset penicillin V Allergy Intermediate rash Verified 05/30/22 03:07 Assessment & Plan Assessment & Plan (1) MDD (major depressive disorder), recurrent episode: Status: Acute Code(s): F33.9 - Major depressive disorder, recurrent, unspecified (2) Cocaine use disorder: Status: Acute Code(s): F14.10 - Cocaine abuse, uncomplicated Plan Mr. Ruffin is a 57 year-old male with hx of MDD and cocaine use disorder who self presented to [facility] reporting increase depression, SI inc ontext of ongoing cocaine use. He appears to have increased insight into effects of cocaine use and is asking for dual dx treatment. Pt presents as tearful, with feeling of guilt and shame related to ongoing substance use. We discussed risks, benefits and alternative treatment options. PLAN 1. Admit to M3, CV, 15 minutes checks for safety 2. Continue remeron, seroquel, clonazepam. We discussed risk of use or misuse with controlled substances. 3. Aftercare planning. 08/24 continue current medications. 08/25 switch to low dose haldol as he reports seemed to be more helpful. will add gabapentin for neuropathic pain and mood. add baclofen for cocaine cravings/muscle spasm. d/c seroquel. for now will add ambien, as we can normalized his sleep. 08/26 continue current tx. we start seroquel 200mg po qhs. 08/27 continue current treatment plan 08/28 ekg normal, troponins negtive, seroqule reduced to 100mg hs deu to incontinence overnight possibly due to over-sedation Reason for contiued inpatient stay Substantial Risk for: harm to self, inability to function, rapid decompensation and med/psych decompensation Time Spent With Patient Time: Total time managing care of this patient today ____ minutes.
--- NOTE | 2022-08-28 12:06 | PC.NURSE ---
At 1115, pt reported to RN that he was experiencing chest pain, dizziness and blurred vision. Vitals were assessed: 124/73, HR 92, O2 96%, RR 18. Ayala Mcgowan was made aware, EKG was ordered. At 1200, pt was less dizzy but stated he was experiencing anxiety, RN administered 50mg Hydroxyzine PRN.
[2022-08-28 12:59] LABS: Troponin-I High Sensitivity < 3.5 ng/L (<3.5-35.0)
[2022-08-28 15:30] LABS: Glucose, Whole Blood 97 mg/dL (60-115)
[2022-08-28 16:42] LABS: Troponin-I High Sensitivity < 3.5 ng/L (<3.5-35.0)
[2022-08-28] MEDS: Acetaminophen 325 MG TABLET 650 MG PO (17:50)
[2022-08-28] MEDS: QUEtiapine Fumarate 50 MG TABLET PO (18:26)
[2022-08-28 20:30] VITALS: BP 127/75; PULSE 92; RESP 16; TEMP 36.4; O2SAT 96
[2022-08-28] MEDS: Mirtazapine 30 MG TABLET PO (20:41)
[2022-08-28] MEDS: Atorvastatin Calcium 40 MG TABLET PO (20:41)
[2022-08-28] MEDS: Ferrous Sulfate 324 MG TABLET.DR PO (20:41)
[2022-08-28] MEDS: QUEtiapine Fumarate 100 MG TABLET PO (20:41)
[2022-08-28] MEDS: Lidocaine 5 % Ointment 35 GM 1 APPL TOPICAL (20:41)
[2022-08-28] MEDS: Zolpidem Tartrate 5 MG TABLET PO (20:48)
[2022-08-28 21:33] LABS: MANUAL DIFF FLAG NO
[2022-08-28 21:36] LABS: Basophils Absolute Auto 0.1 X10*3/uL (0.0-0.2); Basophils Percent Auto 1.1 % (0-2); Eosinophils Absolute Auto 0.4 X10*3/uL (0.0-0.4); Eosinophils Percent Auto 5.5 % (0-4); Hematocrit 39.8 % (42.0-52.0); Hemoglobin 13.4 g/dl (14.0-18.0); Imm Gran Abs Auto 0.04 X10*3/uL (0.00-0.03); Imm Gran Pct Auto 0.6 % (0.0-0.4); Lymphocytes Absolute Auto 2.2 X10*3/uL (1.2-4.9); Lymphocytes Percent Auto 34.3 % (20-40); Mean Corpuscular HGB Conc 33.7 g/dl (31.0-36.0); Mean Corpuscular Hemoglobin 29.6 pg (27.0-33.0); Mean Corpuscular Volume 88.1 fL (80.0-98.0); Mean Platelet Volume 8.2 fL (9.4-12.4); Monocytes Absolute Auto 0.5 X10*3/uL (0.1-1.2); Monocytes Percent Auto 8.2 % (2-11); Neutrophils Absolute Auto 3.2 x10*3/uL (2.0-8.3); Neutrophils Percent Auto 50.3 % (45-73); Platelet Count 387 X10*3/uL (160-400); Red Blood Count 4.52 X10*6/uL (4.60-5.80); Red Cell Distribution Width 13.1 % (11.0-16.0); White Blood Count 6.4 X10*3/uL (4.8-10.8)
[2022-08-28] MEDS: oxyCODONE HCl Immed Release 5 MG TABLET PO (21:46)
[2022-08-28 21:49] LABS: Anion Gap 17 (12-20); Blood Urea Nitrogen 15 mg/dL (9-16); C Reactive Protein 0.13 mg/dL (< or = 0.50); Calcium 9.9 mg/dL (8.4-10.2); Carbon Dioxide 28 mmol/L (22-29); Chloride 100 mmol/L (96-108); Creatinine Clr Calc Pharmacy 82.2; Estimated Glomerular Filt Rate > 60; Glucose Random 100 mg/dL (60-115); Potassium 4.5 mmol/L (3.3-5.1); Sodium 140 mmol/L (135-145)
[2022-08-28 22:14] LABS: Erythrocyte Sedimentation Rate 16 MM/HR (0-15)
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
--- NOTE | 2022-08-29 00:24 | PC.NURSE ---
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 Expressed strong SI with urge to hang himself or suffocate himself. He reported feeling guilty about his past substance use and how it affected his son. He also expressed continuing grief over his son's and losing his mother more recently. He stated he had suffered for years and just wanted the pain to end. He was tearful, and reported he did not feel he could keep himself safe on the unit. He was offered emotional support and agreed that a 1:1 would be the best option to maintain safety on the unit. On-call provider notified.
[2022-08-29] MEDS: QUEtiapine Fumarate 50 MG TABLET PO (00:52)
[2022-08-29] MEDS: hydrOXYzine HCL 50 MG TABLET PO ×2 (00:52→04:46)
[2022-08-29] MEDS: oxyCODONE HCl Immed Release 5 MG TABLET PO ×4 (04:29→20:29)
[2022-08-29] MEDS: Albuterol Sulfate 90 MCG 8 GM INHALER 2 PUFF INHALE ×2 (04:46→20:29)
[2022-08-29 09:00] VITALS: BP 110/69; PULSE 88; TEMP 36.4; O2SAT 96
[2022-08-29] MEDS: HaloperidoL 1 MG TABLET 2 MG PO ×3 (09:32→20:30)
[2022-08-29] MEDS: Omeprazole 20 MG CAPSULE.DR PO (09:33)
[2022-08-29] MEDS: Sennosides/Docusate Sodium TABLET 1 TAB PO ×2 (09:33→20:30)
[2022-08-29] MEDS: Tamsulosin HCL 0.4 MG CAPSULE PO (09:33)
[2022-08-29] MEDS: Baclofen 10 MG TABLET PO ×3 (09:33→20:30)
[2022-08-29] MEDS: VerapamiL HCL SR 120 MG TABLET.ER PO (09:34)
[2022-08-29] MEDS: Gabapentin 300 MG CAPSULE PO ×3 (09:34→20:30)
[2022-08-29] MEDS: clonazePAM 0.5 MG TABLET PO ×3 (09:34→20:30)
[2022-08-29] MEDS: polyethylene glycoL 3350 17 GM POWD.PACK PO (09:35)
--- NOTE | 2022-08-29 13:38 | P.PNPSI_ITS ---
Subjective Subjective Date of Service: 08/29/22 Reason For Visit: Suicidal ideation Subjective Notes: Conditional Voluntary Interim History: Pt very trearful last night, stating he will harm self while on the unit, put on one to one for safety. Today, pt reports that he felt a lot of guilt and shame for harm and pain he has caused to his family, especially his mother and son due to his substance use. He reports he felt hopeless, and only had thought of wanting to hurt himself and give up. He reports he feels slightly better today, that he realizes he has ano ther chance to continues working on his addiction and mental health. He reports passive suicidal thoughts but no plan or intent to harm himself. will change to 15 minutes checks, pt in agreement and denies any self harm urges. Review of Systems Review of Systems Yes all other systems are reviewed and are negative Mental Status Exam Mental Status Exam Narrative: Appearance: casually groomed, fair hygiene, in NAD Behavior: cooperative Psychomotor: no agitation or retardation noted Speech: clear, normal rate/rhythm/volume, spontaneous TP: linear TC: no signs of delusions, increase insight into effects of cocaine use, wanting treatment. Mood: depressed Affect: blunted SI: passive, no plan or intent. HI: none AH/VH: hearing voices, not command. Delusions: none Insight/judgment: poor x 2. Memory/cog: alert, oriented x 3. Diagnostics Vital Signs (24Hr): Vital Signs - 24 hr 08/28/22 20:30 08/29/22 09:00 Temperature 97.6 F 97.6 F Pulse Rate 92 88 Respiratory Rate 16 Blood Pressure 127/75 110/69 Pulse Oximetry 96 96 Oxygen Delivery Method Room Air Room Air BMI result Body Mass Index 24.0 Labs 08/28/22 21:17 08/28/22 21:17 Labs: Laboratory Results - last 48 hr 08/28/22 08/28/22 08/28/22 12:22 15:25 16:10 WBC RBC Hgb Hct MCV MCH MCHC RDW Plt Count MPV Immature Gran % (Auto) Neut % (Auto) Lymph % (Auto) Lamb % (Auto) Eos % (Auto) Baso % (Auto) Lymph # (Auto) Lamb # (Auto) Eos # (Auto) Baso # (Auto) Abs Immat Gran (auto) Absolute Neuts (auto) Absolute Nucleated RBC Nucleated RBC % (auto) ESR Sodium Potassium Chloride Carbon Dioxide Anion Gap BUN Creatinine Estim Creat Clear Calc Estimated GFR POC Glucose 97 Random Glucose Calcium Troponin I High Sens < 3.5 < 3.5 C-Reactive Protein 08/28/22 08/28/22 08/28/22 21:17 21:17 21:17 WBC 6.4 RBC 4.52 L Hgb 13.4 L Hct 39.8 L MCV 88.1 MCH 29.6 MCHC 33.7 RDW 13.1 Plt Count 387 MPV 8.2 L Immature Gran % (Auto) 0.6 H Neut % (Auto) 50.3 Lymph % (Auto) 34.3 Lamb % (Auto) 8.2 Eos % (Auto) 5.5 H Baso % (Auto) 1.1 Lymph # (Auto) 2.2 Lamb # (Auto) 0.5 Eos # (Auto) 0.4 Baso # (Auto) 0.1 Abs Immat Gran (auto) 0.04 H Absolute Neuts (auto) 3.2 Absolute Nucleated RBC 0.000 Nucleated RBC % (auto) 0.0 ESR 16 H Sodium 140 Potassium 4.5 Chloride 100 Carbon Dioxide 28 Anion Gap 17 BUN 15 Creatinine 0.81 Estim Creat Clear Calc 82.2 Estimated GFR > 60 POC Glucose Random Glucose 100 Calcium 9.9 D Troponin I High Sens C-Reactive Protein 0.13 Imaging Radiology Impressions: ITS Impressions Venous Duplex 08/24/22 15:00 IMPRESSION: No DVT demonstrated in the bilateral lower extremities. Knee X-Ray 08/28/22 21:37 IMPRESSION: Mild degenerative changes but no acute fracture or dislocation. Posterior lateral femoral osteochondroma noted. Medications Medications Current Medications Acetaminophen (Acetaminophen 325 Mg Tablet) 650 mg PO Q6H PRN PRN Reason: Headache/Pain Mild Scale (1-3) Last Admin: 08/28/22 17:50 Dose: 650 mg Al Hydroxide/Mg Hydroxide (Magnesium Hydrox/Alum Hydrox 30 Ml Oral.Susp) 30 ml PO Q6H PRN PRN Reason: Heartburn/Nausea Last Admin: 08/24/22 20:40 Dose: 30 ml Albuterol Sulfate (Albuterol Sulfate 90 Mcg 8 Gm Inhaler) 2 puff INHALE Q4H PRN PRN Reason: Shortness Of Breath Or Wheezing Last Admin: 08/29/22 04:46 Dose: 2 puff Atorvastatin Calcium (Atorvastatin Calcium 40 Mg Tablet) 40 mg PO BEDTIME [facility] Last Admin: 08/28/22 20:41 Dose: 40 mg Baclofen (Baclofen 10 Mg Tablet) 10 mg PO TID [facility] Last Admin: 08/29/22 09:33 Dose: 10 mg Clonazepam (Clonazepam 0.5 Mg Tablet) 0.5 mg PO TID [facility] Last Admin: 08/29/22 09:34 Dose: 0.5 mg Ferrous Sulfate (Ferrous Sulfate 324 Mg Tablet.) 324 mg PO BEDTIME [facility] Last Admin: 08/28/22 20:41 Dose: 324 mg Gabapentin (Gabapentin 300 Mg Capsule) 300 mg PO TID [facility] Last Admin: 08/29/22 09:34 Dose: 300 mg Haloperidol (Haloperidol 1 Mg Tablet) 2 mg PO TID [facility] Last Admin: 08/29/22 09:32 Dose: 2 mg Hydroxyzine HCl (Hydroxyzine Hcl 50 Mg Tablet) 50 mg PO Q4H PRN PRN Reason: Anxiety Last Admin: 08/29/22 04:46 Dose: 50 mg Magnesium Hydroxide (Milk Of Magnesia 30 Ml Oral.Susp) 30 ml PO DAILY PRN PRN Reason: Constipation Last Admin: 08/23/22 21:03 Dose: 30 ml Mirtazapine (Mirtazapine 30 Mg Tablet) 30 mg PO BEDTIME [facility] Last Admin: 08/28/22 20:41 Dose: 30 mg Naproxen (Naproxen 250 Mg Tablet) 250 mg PO BIDWM PRN PRN Reason: Pain, Mild (Pain Scale 1-3) Last Admin: 08/28/22 08:28 Dose: 250 mg Omeprazole (Omeprazole 20 Mg Capsule.) 20 mg PO DAILY@0630 [facility] Last Admin: 08/29/22 09:33 Dose: 20 mg Oxycodone HCl (Oxycodone Hcl Immed Release 5 Mg Tablet) 5 mg PO Q4H PRN PRN Reason: Pain, Moderate (Pain Scale 4-6 Last Admin: 08/29/22 09:43 Dose: 5 mg Polyethylene Glycol (Polyethylene Glycol 3350 17 Gm Powd.Pack) 17 gm PO DAILY [facility] Last Admin: 08/29/22 09:35 Dose: 17 gm Quetiapine Fumarate (Quetiapine Fumarate 100 Mg Tablet) 100 mg PO BEDTIME [facility] Last Admin: 08/28/22 20:41 Dose: 100 mg Quetiapine Fumarate (Quetiapine Fumarate 50 Mg Tablet) 50 mg PO BID PRN PRN Reason: voices, anxiety Last Admin: 08/29/22 00:52 Dose: 50 mg Senna/Docusate Sodium (Sennosides/Docusate Sodium Tablet) 1 tab PO BID [facility] Last Admin: 08/29/22 09:33 Dose: 1 tab Tamsulosin HCl (Tamsulosin Hcl 0.4 Mg Capsule) 0.4 mg PO DAILY [facility] Last Admin: 08/29/22 09:33 Dose: 0.4 mg Verapamil HCl (Verapamil Hcl Sr 120 Mg Tablet.Er) 120 mg PO DAILY [facility]; Protocol Last Admin: 08/29/22 09:34 Dose: 120 mg Zolpidem Tartrate (Zolpidem Tartrate 5 Mg Tablet) 5 mg PO BEDTIME [facility] Last Admin: 08/28/22 20:48 Dose: 5 mg Allergies Allergies Allergy/AdvReac Type Severity Reaction Status Date / Time ibuprofen Allergy Intermediate Stomach Verified 05/30/22 03:07 Upset penicillin V Allergy Intermediate rash Verified 05/30/22 03:07 Assessment & Plan Assessment & Plan (1) MDD (major depressive disorder), recurrent episode: Status: Acute Code(s): F33.9 - Major depressive disorder, recurrent, unspecified (2) Right knee pain: Status: Acute Code(s): M25.561 - Pain in right knee (3) Cocaine-induced anxiety disorder: Status: Acute Code(s): F14.980 - Cocaine use, unspecified with cocaine-induced anxiety disorder Plan 57-year-old male admitted to [facility] for suicidal ideation complaining of right knee pain, # right knee pain - likely secondary to osteoarthritis, no history of gout, no evidence of Dowling cyst - will obtain x-ray of the knee - ESR and CRP - will consult orthopedic surgery - oxycodone p.r.n. thank you for this consult, we will be signing off on this patient and transferring care to orthopedic please re-consult if he needs any further evaluation of patient PLAN 1. PSYCH- continue current medications. Reason for contiued inpatient stay Substantial Risk for: harm to self Time Spent With Patient Time: Total time managing care of this patient today ____ minutes.
[2022-08-29] MEDS: Ferrous Sulfate 324 MG TABLET.DR PO (20:29)
[2022-08-29] MEDS: Atorvastatin Calcium 40 MG TABLET PO (20:29)
[2022-08-29 20:30] VITALS: BP 136/88; PULSE 81; RESP 16; TEMP 36.6; O2SAT 97
[2022-08-29] MEDS: Zolpidem Tartrate 5 MG TABLET PO (20:30)
[2022-08-29] MEDS: QUEtiapine Fumarate 100 MG TABLET PO (20:30)
[2022-08-29] MEDS: Mirtazapine 30 MG TABLET PO (20:30)
[2022-08-30] MEDS: QUEtiapine Fumarate 50 MG TABLET PO ×2 (02:30→17:56)
[2022-08-30] MEDS: hydrOXYzine HCL 50 MG TABLET PO ×2 (02:30→17:56)
[2022-08-30] MEDS: oxyCODONE HCl Immed Release 5 MG TABLET PO ×2 (02:30→09:36)
[2022-08-30] MEDS: Albuterol Sulfate 90 MCG 8 GM INHALER 2 PUFF INHALE ×2 (05:20→22:28)
[2022-08-30] MEDS: Omeprazole 20 MG CAPSULE.DR PO (06:09)
[2022-08-30 08:20] VITALS: BP 126/80; PULSE 81; RESP 18; TEMP 36.4; O2SAT 97
[2022-08-30] MEDS: polyethylene glycoL 3350 17 GM POWD.PACK PO (09:20)
[2022-08-30] MEDS: VerapamiL HCL SR 120 MG TABLET.ER PO (09:27)
[2022-08-30] MEDS: HaloperidoL 1 MG TABLET 2 MG PO ×3 (09:28→21:19)
[2022-08-30] MEDS: Baclofen 10 MG TABLET PO ×3 (09:28→21:20)
[2022-08-30] MEDS: Gabapentin 300 MG CAPSULE PO ×3 (09:28→21:19)
[2022-08-30] MEDS: Tamsulosin HCL 0.4 MG CAPSULE PO (09:29)
[2022-08-30] MEDS: Sennosides/Docusate Sodium TABLET 1 TAB PO ×2 (09:30→21:20)
[2022-08-30] MEDS: clonazePAM 0.5 MG TABLET PO ×3 (09:31→21:19)
--- NOTE | 2022-08-30 13:38 | HO.PSYCHPN ---
Subjective Subjective Date of Service: 08/30/22 Reason For Visit: Suicidal ideation Subjective Notes: Conditional Voluntary Interim History: Pt reports fair sleep due to knee pain. He reports feeling less depressed. He denies SI/HI. He reports feeling more hopeful about his future. He still endorses guilt related to ongoing substance use and harm he caused to loved ones. He reports he spoke with his sister and this helped his mood greatly. He continues to express motivation to go to dual dx residential program. He has been visible on the unit, attends assigned groups. He is pleasant and polite. We discussed for knee pain scheduled doses of tylenol as opioid medications will not be ongoing nor first line treatment for arthritis pain. Diagnostics Vital Signs (24Hr): Vital Signs - 24 hr 08/29/22 20:30 08/30/22 08:20 Temperature 97.8 F 97.6 F Pulse Rate 81 81 Respiratory Rate 16 18 Blood Pressure 136/88 126/80 Pulse Oximetry 97 97 Oxygen Delivery Method Room Air Room Air BMI result Body Mass Index 24.0 Labs 08/28/22 21:17 08/28/22 21:17 Labs: Laboratory Results - last 48 hr 08/28/22 08/28/22 08/28/22 16:10 21:17 21:17 WBC 6.4 RBC 4.52 L Hgb 13.4 L Hct 39.8 L MCV 88.1 MCH 29.6 MCHC 33.7 RDW 13.1 Plt Count 387 MPV 8.2 L Immature Gran % (Auto) 0.6 H Neut % (Auto) 50.3 Lymph % (Auto) 34.3 Stevens % (Auto) 8.2 Eos % (Auto) 5.5 H Baso % (Auto) 1.1 Lymph # (Auto) 2.2 Stevens # (Auto) 0.5 Eos # (Auto) 0.4 Baso # (Auto) 0.1 Abs Immat Gran (auto) 0.04 H Absolute Neuts (auto) 3.2 Absolute Nucleated RBC 0.000 Nucleated RBC % (auto) 0.0 ESR 16 H Sodium Potassium Chloride Carbon Dioxide Anion Gap BUN Creatinine Estim Creat Clear Calc Estimated GFR Random Glucose Calcium Troponin I High Sens < 3.5 C-Reactive Protein 08/28/22 21:17 WBC RBC Hgb Hct MCV MCH MCHC RDW Plt Count MPV Immature Gran % (Auto) Neut % (Auto) Lymph % (Auto) Stevens % (Auto) Eos % (Auto) Baso % (Auto) Lymph # (Auto) Stevens # (Auto) Eos # (Auto) Baso # (Auto) Abs Immat Gran (auto) Absolute Neuts (auto) Absolute Nucleated RBC Nucleated RBC % (auto) ESR Sodium 140 Potassium 4.5 Chloride 100 Carbon Dioxide 28 Anion Gap 17 BUN 15 Creatinine 0.81 Estim Creat Clear Calc 82.2 Estimated GFR > 60 Random Glucose 100 Calcium 9.9 D Troponin I High Sens C-Reactive Protein 0.13 Imaging Radiology Impressions: ITS Impressions Venous Duplex 08/24/22 15:00 IMPRESSION: No DVT demonstrated in the bilateral lower extremities. Knee X-Ray 08/28/22 21:37 IMPRESSION: Mild degenerative changes but no acute fracture or dislocation. Posterior lateral femoral osteochondroma noted. Medications Medications Current Medications Al Hydroxide/Mg Hydroxide (Magnesium Hydrox/Alum Hydrox 30 Ml Oral.Susp) 30 ml PO Q6H PRN PRN Reason: Heartburn/Nausea Last Admin: 08/24/22 20:40 Dose: 30 ml Albuterol Sulfate (Albuterol Sulfate 90 Mcg 8 Gm Inhaler) 2 puff INHALE Q4H PRN PRN Reason: Shortness Of Breath Or Wheezing Last Admin: 08/30/22 05:20 Dose: 2 puff Atorvastatin Calcium (Atorvastatin Calcium 40 Mg Tablet) 40 mg PO BEDTIME [facility] Last Admin: 08/29/22 20:29 Dose: 40 mg Baclofen (Baclofen 10 Mg Tablet) 10 mg PO TID [facility] Last Admin: 08/30/22 14:05 Dose: 10 mg Clonazepam (Clonazepam 0.5 Mg Tablet) 0.5 mg PO TID [facility] Last Admin: 08/30/22 14:04 Dose: 0.5 mg Ferrous Sulfate (Ferrous Sulfate 324 Mg Tablet.Dr) 324 mg PO BEDTIME [facility] Last Admin: 08/29/22 20:29 Dose: 324 mg Gabapentin (Gabapentin 300 Mg Capsule) 300 mg PO TID [facility] Last Admin: 08/30/22 14:05 Dose: 300 mg Haloperidol (Haloperidol 1 Mg Tablet) 2 mg PO TID [facility] Last Admin: 08/30/22 14:05 Dose: 2 mg Hydroxyzine HCl (Hydroxyzine Hcl 50 Mg Tablet) 50 mg PO Q4H PRN PRN Reason: Anxiety Last Admin: 08/30/22 02:30 Dose: 50 mg Magnesium Hydroxide (Milk Of Magnesia 30 Ml Oral.Susp) 30 ml PO DAILY PRN PRN Reason: Constipation Last Admin: 08/23/22 21:03 Dose: 30 ml Mirtazapine (Mirtazapine 30 Mg Tablet) 30 mg PO BEDTIME [facility] Last Admin: 08/29/22 20:30 Dose: 30 mg Naproxen (Naproxen 250 Mg Tablet) 250 mg PO BIDWM PRN PRN Reason: Pain, Mild (Pain Scale 1-3) Last Admin: 08/28/22 08:28 Dose: 250 mg Omeprazole (Omeprazole 20 Mg Capsule.Dr) 20 mg PO DAILY@0630 [facility] Last Admin: 08/30/22 06:09 Dose: 20 mg Polyethylene Glycol (Polyethylene Glycol 3350 17 Gm Powd.Pack) 17 gm PO DAILY [facility] Last Admin: 08/30/22 09:20 Dose: 17 gm Quetiapine Fumarate (Quetiapine Fumarate 100 Mg Tablet) 100 mg PO BEDTIME [facility] Last Admin: 08/29/22 20:30 Dose: 100 mg Quetiapine Fumarate (Quetiapine Fumarate 50 Mg Tablet) 50 mg PO BID PRN PRN Reason: voices, anxiety Last Admin: 08/30/22 02:30 Dose: 50 mg Senna/Docusate Sodium (Sennosides/Docusate Sodium Tablet) 1 tab PO BID [facility] Last Admin: 08/30/22 09:30 Dose: 1 tab Tamsulosin HCl (Tamsulosin Hcl 0.4 Mg Capsule) 0.4 mg PO DAILY [facility] Last Admin: 08/30/22 09:29 Dose: 0.4 mg Verapamil HCl (Verapamil Hcl Sr 120 Mg Tablet.Er) 120 mg PO DAILY [facility]; Protocol Last Admin: 08/30/22 09:27 Dose: 120 mg Zolpidem Tartrate (Zolpidem Tartrate 5 Mg Tablet) 5 mg PO BEDTIME [facility] Last Admin: 08/29/22 20:30 Dose: 5 mg Allergies Allergies Allergy/AdvReac Type Severity Reaction Status Date / Time ibuprofen Allergy Intermediate Stomach Verified 05/30/22 03:07 Upset penicillin V Allergy Intermediate rash Verified 05/30/22 03:07 Assessment & Plan Assessment & Plan (1) MDD (major depressive disorder), recurrent episode: Status: Acute Code(s): F33.9 - Major depressive disorder, recurrent, unspecified (2) Right knee pain: Status: Acute Code(s): M25.561 - Pain in right knee (3) Cocaine-induced anxiety disorder: Status: Acute Code(s): F14.980 - Cocaine use, unspecified with cocaine-induced anxiety disorder Plan 57-year-old male admitted to [facility] for suicidal ideation complaining of right knee pain, # right knee pain - likely secondary to osteoarthritis, no history of gout, no evidence of Dowling cyst - will obtain x-ray of the knee - ESR and CRP - will consult orthopedic surgery - oxycodone p.r.n. thank you for this consult, we will be signing off on this patient and transferring care to orthopedic please re-consult if he needs any further evaluation of patient PLAN 08/30 continue current medications. Reason for contiued inpatient stay Substantial Risk for: inability to function Time Spent With Patient Time: Total time managing care of this patient today ____ minutes.
[2022-08-30] MEDS: Acetaminophen 325 MG TABLET 975 MG PO ×2 (16:39→21:20)
[2022-08-30 21:00] VITALS: BP 135/86; PULSE 95; RESP 16; TEMP 36.6; O2SAT 94
[2022-08-30] MEDS: Atorvastatin Calcium 40 MG TABLET PO (21:19)
[2022-08-30] MEDS: Mirtazapine 30 MG TABLET PO (21:19)
[2022-08-30] MEDS: QUEtiapine Fumarate 100 MG TABLET PO (21:19)
[2022-08-30] MEDS: NaPROXEN 250 MG TABLET PO (21:19)
[2022-08-30] MEDS: Ferrous Sulfate 324 MG TABLET.DR PO (21:19)
[2022-08-30] MEDS: Magnesium Hydrox/Alum Hydrox 30 ML ORAL.SUSP PO (21:20)
[2022-08-30] MEDS: Lidocaine 5 % Ointment 35 GM 1 APPL TOPICAL (22:17)
[2022-08-30] MEDS: Zolpidem Tartrate 5 MG TABLET PO (22:19)
[2022-08-31] MEDS: QUEtiapine Fumarate 50 MG TABLET PO ×2 (04:26→14:16)
[2022-08-31] MEDS: NaPROXEN 250 MG TABLET PO (04:26)
[2022-08-31] MEDS: Lidocaine 5 % Ointment 35 GM 1 APPL TOPICAL ×2 (04:27→22:16)
[2022-08-31] MEDS: hydrOXYzine HCL 50 MG TABLET PO ×3 (04:27→14:16)
[2022-08-31 06:00] VITALS: BP 136/80; PULSE 90; RESP 16; TEMP 36.7; O2SAT 96
[2022-08-31] MEDS: Albuterol Sulfate 90 MCG 8 GM INHALER 2 PUFF INHALE ×2 (06:07→19:35)
[2022-08-31] MEDS: polyethylene glycoL 3350 17 GM POWD.PACK PO (08:47)
[2022-08-31] MEDS: Acetaminophen 325 MG TABLET 975 MG PO ×3 (08:47→21:51)
[2022-08-31] MEDS: HaloperidoL 1 MG TABLET 2 MG PO ×3 (08:48→21:52)
[2022-08-31] MEDS: clonazePAM 0.5 MG TABLET PO ×3 (08:48→21:53)
[2022-08-31] MEDS: Omeprazole 20 MG CAPSULE.DR PO (08:48)
[2022-08-31] MEDS: Tamsulosin HCL 0.4 MG CAPSULE PO (08:48)
[2022-08-31] MEDS: Sennosides/Docusate Sodium TABLET 1 TAB PO ×2 (08:48→21:52)
[2022-08-31] MEDS: Gabapentin 300 MG CAPSULE PO ×3 (08:48→21:52)
[2022-08-31] MEDS: VerapamiL HCL SR 120 MG TABLET.ER PO (08:48)
--- NOTE | 2022-08-31 08:52 | HO.PSYCHPN ---
Subjective Subjective Date of Service: 08/31/22 Reason For Visit: Suicidal ideation Subjective Notes: Conditional Voluntary Interim History: Pt reports poor sleep last night due to knee pain. 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 Pt explained he will have combination of tylenol and NSAID with food to decrease GI upset. Pt reports his mood is better, less depressed. He denies SI/HI. Continues to report motivation to continue substance use treatment. No behavioral concerns. Medication Compliance: Yes Review of Systems Review of Systems Yes all other systems are reviewed and are negative Mental Status Exam Mental Status Exam Narrative: Appearance: casually groomed, fair hygiene, in NAD Behavior: cooperative Psychomotor: no agitation or retardation noted Speech: clear, normal rate/rhythm/volume, spontaneous TP: linear TC: no signs of delusions, increase insight into effects of cocaine use, wanting treatment. Mood: depressed Affect: blunted SI: passive, no plan or intent. HI: none AH/VH: hearing voices, not command. Delusions: none Insight/judgment: poor x 2. Memory/cog: alert, oriented x 3. Diagnostics Vital Signs (24Hr): Vital Signs - 24 hr 09/01/22 18:00 09/02/22 04:10 09/02/22 08:00 Temperature 97.4 F 98.3 F Pulse Rate 80 97 106 H Respiratory Rate 16 16 16 Blood Pressure 142/83 H 125/79 125/89 Pulse Oximetry 97 95 96 Oxygen Delivery Method Room Air Room Air Room Air BMI result Body Mass Index 24.8 Labs 08/28/22 21:17 08/28/22 21:17 Imaging Radiology Impressions: ITS Impressions Venous Duplex 08/24/22 15:00 IMPRESSION: No DVT demonstrated in the bilateral lower extremities. Knee X-Ray 08/28/22 21:37 IMPRESSION: Mild degenerative changes but no acute fracture or dislocation. Posterior lateral femoral osteochondroma noted. Medications Medications Current Medications Acetaminophen (Acetaminophen 325 Mg Tablet) 975 mg PO TID [facility] Last Admin: 09/02/22 08:09 Dose: 975 mg Al Hydroxide/Mg Hydroxide (Magnesium Hydrox/Alum Hydrox 30 Ml Oral.Susp) 30 ml PO Q6H PRN PRN Reason: Heartburn/Nausea Last Admin: 08/30/22 21:20 Dose: 30 ml Albuterol Sulfate (Albuterol Sulfate 90 Mcg 8 Gm Inhaler) 2 puff INHALE Q4H PRN PRN Reason: Shortness Of Breath Or Wheezing Last Admin: 09/02/22 03:59 Dose: 2 puff Atorvastatin Calcium (Atorvastatin Calcium 40 Mg Tablet) 40 mg PO BEDTIME [facility] Last Admin: 09/01/22 21:30 Dose: 40 mg Baclofen (Baclofen 10 Mg Tablet) 10 mg PO TID [facility] Last Admin: 09/02/22 08:11 Dose: 10 mg Famotidine (Famotidine 20 Mg Tablet) 20 mg PO DAILY [facility] Last Admin: 09/02/22 08:10 Dose: 20 mg Ferrous Sulfate (Ferrous Sulfate 324 Mg Tablet.) 324 mg PO BEDTIME [facility] Last Admin: 09/01/22 21:30 Dose: 324 mg Gabapentin (Gabapentin 300 Mg Capsule) 300 mg PO TID [facility] Last Admin: 09/02/22 08:10 Dose: 300 mg Haloperidol (Haloperidol 1 Mg Tablet) 2 mg PO TID [facility] Last Admin: 09/02/22 08:10 Dose: 2 mg Hydroxyzine HCl (Hydroxyzine Hcl 50 Mg Tablet) 50 mg PO Q4H PRN PRN Reason: Anxiety Last Admin: 09/02/22 02:40 Dose: 50 mg Lidocaine (Lidocaine 5 % Ointment 35 Gm) 1 appl TOPICAL Q6H PRN; Protocol PRN Reason: Pain, Moderate (Pain Scale 4-6 Last Admin: 09/02/22 02:39 Dose: 1 appl Magnesium Hydroxide (Milk Of Magnesia 30 Ml Oral.Susp) 30 ml PO DAILY PRN PRN Reason: Constipation Last Admin: 08/23/22 21:03 Dose: 30 ml Mirtazapine (Mirtazapine 30 Mg Tablet) 30 mg PO BEDTIME [facility] Last Admin: 09/01/22 21:30 Dose: 30 mg Naproxen (Naproxen 500 Mg Tablet) 500 mg PO BIDWM [facility] Last Admin: 09/02/22 08:10 Dose: 500 mg Omeprazole (Omeprazole 20 Mg Capsule.) 20 mg PO DAILY@0630 [facility] Last Admin: 09/02/22 06:34 Dose: 20 mg Polyethylene Glycol (Polyethylene Glycol 3350 17 Gm Powd.Pack) 17 gm PO DAILY [facility] Last Admin: 09/02/22 08:13 Dose: Not Given Quetiapine Fumarate (Quetiapine Fumarate 50 Mg Tablet) 50 mg PO BID PRN PRN Reason: voices, anxiety Last Admin: 09/02/22 02:40 Dose: 50 mg Quetiapine Fumarate (Quetiapine Fumarate 200 Mg Tablet) 200 mg PO BEDTIME [facility] Last Admin: 09/01/22 21:30 Dose: 200 mg Senna/Docusate Sodium (Sennosides/Docusate Sodium Tablet) 1 tab PO BID [facility] Last Admin: 09/02/22 08:16 Dose: 1 tab Tamsulosin HCl (Tamsulosin Hcl 0.4 Mg Capsule) 0.4 mg PO DAILY [facility] Last Admin: 09/02/22 08:18 Dose: 0.4 mg Verapamil HCl (Verapamil Hcl Sr 120 Mg Tablet.Er) 120 mg PO DAILY [facility]; Protocol Last Admin: 09/02/22 08:11 Dose: 120 mg Zolpidem Tartrate (Zolpidem Tartrate 5 Mg Tablet) 5 mg PO BEDTIME [facility] Last Admin: 09/01/22 21:31 Dose: 5 mg Allergies Allergies Allergy/AdvReac Type Severity Reaction Status Date / Time ibuprofen Allergy Intermediate Stomach Verified 05/30/22 03:07 Upset penicillin V Allergy Intermediate rash Verified 05/30/22 03:07 Assessment & Plan Assessment & Plan (1) MDD (major depressive disorder), recurrent episode: Status: Acute Code(s): F33.9 - Major depressive disorder, recurrent, unspecified (2) Right knee pain: Status: Acute Code(s): M25.561 - Pain in right knee (3) Cocaine-induced anxiety disorder: Status: Acute Code(s): F14.980 - Cocaine use, unspecified with cocaine-induced anxiety disorder Plan 57-year-old male admitted to [facility] for suicidal ideation complaining of right knee pain, # right knee pain - likely secondary to osteoarthritis, no history of gout, no evidence of Dowling cyst - will obtain x-ray of the knee - ESR and CRP - will consult orthopedic surgery thank you for this consult, we will be signing off on this patient and transferring care to orthopedic please re-consult if he needs any further evaluation of patient PLAN 08/30 continue current medications. 08/31 continue current tx. Reason for contiued inpatient stay Substantial Risk for: harm to self Time Spent With Patient Time: Total time managing care of this patient today ____ minutes.
[2022-08-31] MEDS: Baclofen 10 MG TABLET PO ×3 (08:54→21:53)
[2022-08-31 19:39] VITALS: BP 121/70; PULSE 88; TEMP 36.6; O2SAT 97
[2022-08-31 21:00] VITALS: BP 132/72; BP 136/72; PULSE 87; PULSE 90; TEMP 36.5; O2SAT 96
[2022-08-31] MEDS: Mirtazapine 30 MG TABLET PO (21:52)
[2022-08-31] MEDS: Zolpidem Tartrate 5 MG TABLET PO (21:52)
[2022-08-31] MEDS: Atorvastatin Calcium 40 MG TABLET PO (21:52)
[2022-08-31] MEDS: Ferrous Sulfate 324 MG TABLET.DR PO (21:52)
[2022-08-31] MEDS: QUEtiapine Fumarate 100 MG TABLET PO (21:52)
[2022-09-01] MEDS: Albuterol Sulfate 90 MCG 8 GM INHALER 2 PUFF INHALE ×3 (03:09→21:48)
[2022-09-01] MEDS: hydrOXYzine HCL 50 MG TABLET PO (03:11)
[2022-09-01] MEDS: QUEtiapine Fumarate 50 MG TABLET PO (03:11)
[2022-09-01] MEDS: Omeprazole 20 MG CAPSULE.DR PO (06:33)
[2022-09-01 07:00] VITALS: BMI 24.8
[2022-09-01 08:00] VITALS: BP 133/79; PULSE 88; RESP 20; TEMP 36.7; O2SAT 97
[2022-09-01] MEDS: Baclofen 10 MG TABLET PO ×3 (08:08→21:30)
[2022-09-01] MEDS: HaloperidoL 1 MG TABLET 2 MG PO ×3 (08:08→21:30)
[2022-09-01] MEDS: Gabapentin 300 MG CAPSULE PO ×3 (08:08→21:31)
[2022-09-01] MEDS: Tamsulosin HCL 0.4 MG CAPSULE PO (08:08)
[2022-09-01] MEDS: Acetaminophen 325 MG TABLET 975 MG PO ×3 (08:08→21:31)
[2022-09-01] MEDS: Sennosides/Docusate Sodium TABLET 1 TAB PO ×2 (08:09→21:31)
[2022-09-01] MEDS: VerapamiL HCL SR 120 MG TABLET.ER PO (08:09)
[2022-09-01] MEDS: Lidocaine 5 % Ointment 35 GM 1 APPL TOPICAL (08:15)
--- NOTE | 2022-09-01 12:31 | P.PNPSI_ITS ---
Subjective Subjective Date of Service: 09/01/22 Reason For Visit: Suicidal ideation Subjective Notes: Conditional Voluntary Interim History: Pt reports better sleep last night. He continues to report knee pain. Pt reports sister came to visit and this lifted his mood and continues to encourage him to continue substance use treatment. Pt reports his mood is better, less depressed. He denies SI/HI. Continues to report motivation to continue substance use treatment. No behavioral concerns. Medication Compliance: Yes Side effects from medications: No Review of Systems Review of Systems Yes all other systems are reviewed and are negative Mental Status Exam Mental Status Exam Narrative: Appearance: casually groomed, fair hygiene, in NAD Behavior: cooperative Psychomotor: no agitation or retardation noted Speech: clear, normal rate/rhythm/volume, spontaneous TP: linear TC: no signs of delusions, increase insight into effects of cocaine use, wanting treatment. Mood: depressed Affect: blunted SI: passive, no plan or intent. HI: none AH/VH: hearing voices, not command. Delusions: none Insight/judgment: poor x 2. Memory/cog: alert, oriented x 3. Diagnostics Vital Signs (24Hr): Vital Signs - 24 hr 09/01/22 18:00 09/02/22 04:10 09/02/22 08:00 Temperature 97.4 F 98.3 F Pulse Rate 80 97 106 H Respiratory Rate 16 16 16 Blood Pressure 142/83 H 125/79 125/89 Pulse Oximetry 97 95 96 Oxygen Delivery Method Room Air Room Air Room Air BMI result Body Mass Index 24.8 Labs 08/28/22 21:17 08/28/22 21:17 Imaging Radiology Impressions: ITS Impressions Venous Duplex 08/24/22 15:00 IMPRESSION: No DVT demonstrated in the bilateral lower extremities. Knee X-Ray 08/28/22 21:37 IMPRESSION: Mild degenerative changes but no acute fracture or dislocation. Posterior lateral femoral osteochondroma noted. Medications Medications Current Medications Acetaminophen (Acetaminophen 325 Mg Tablet) 975 mg PO TID [facility] Last Admin: 09/02/22 08:09 Dose: 975 mg Al Hydroxide/Mg Hydroxide (Magnesium Hydrox/Alum Hydrox 30 Ml Oral.Susp) 30 ml PO Q6H PRN PRN Reason: Heartburn/Nausea Last Admin: 08/30/22 21:20 Dose: 30 ml Albuterol Sulfate (Albuterol Sulfate 90 Mcg 8 Gm Inhaler) 2 puff INHALE Q4H PRN PRN Reason: Shortness Of Breath Or Wheezing Last Admin: 09/02/22 03:59 Dose: 2 puff Atorvastatin Calcium (Atorvastatin Calcium 40 Mg Tablet) 40 mg PO BEDTIME [facility] Last Admin: 09/01/22 21:30 Dose: 40 mg Baclofen (Baclofen 10 Mg Tablet) 10 mg PO TID [facility] Last Admin: 09/02/22 08:11 Dose: 10 mg Famotidine (Famotidine 20 Mg Tablet) 20 mg PO DAILY [facility] Last Admin: 09/02/22 08:10 Dose: 20 mg Ferrous Sulfate (Ferrous Sulfate 324 Mg Tablet.) 324 mg PO BEDTIME [facility] Last Admin: 09/01/22 21:30 Dose: 324 mg Gabapentin (Gabapentin 300 Mg Capsule) 300 mg PO TID [facility] Last Admin: 09/02/22 08:10 Dose: 300 mg Haloperidol (Haloperidol 1 Mg Tablet) 2 mg PO TID [facility] Last Admin: 09/02/22 08:10 Dose: 2 mg Hydroxyzine HCl (Hydroxyzine Hcl 50 Mg Tablet) 50 mg PO Q4H PRN PRN Reason: Anxiety Last Admin: 09/02/22 02:40 Dose: 50 mg Lidocaine (Lidocaine 5 % Ointment 35 Gm) 1 appl TOPICAL Q6H PRN; Protocol PRN Reason: Pain, Moderate (Pain Scale 4-6 Last Admin: 09/02/22 02:39 Dose: 1 appl Magnesium Hydroxide (Milk Of Magnesia 30 Ml Oral.Susp) 30 ml PO DAILY PRN PRN Reason: Constipation Last Admin: 08/23/22 21:03 Dose: 30 ml Mirtazapine (Mirtazapine 30 Mg Tablet) 30 mg PO BEDTIME [facility] Last Admin: 09/01/22 21:30 Dose: 30 mg Naproxen (Naproxen 500 Mg Tablet) 500 mg PO BIDWM [facility] Last Admin: 09/02/22 08:10 Dose: 500 mg Omeprazole (Omeprazole 20 Mg Capsule.) 20 mg PO DAILY@0630 [facility] Last Admin: 09/02/22 06:34 Dose: 20 mg Polyethylene Glycol (Polyethylene Glycol 3350 17 Gm Powd.Pack) 17 gm PO DAILY [facility] Last Admin: 09/02/22 08:13 Dose: Not Given Quetiapine Fumarate (Quetiapine Fumarate 50 Mg Tablet) 50 mg PO BID PRN PRN Reason: voices, anxiety Last Admin: 09/02/22 02:40 Dose: 50 mg Quetiapine Fumarate (Quetiapine Fumarate 200 Mg Tablet) 200 mg PO BEDTIME [facility] Last Admin: 09/01/22 21:30 Dose: 200 mg Senna/Docusate Sodium (Sennosides/Docusate Sodium Tablet) 1 tab PO BID [facility] Last Admin: 09/02/22 08:16 Dose: 1 tab Tamsulosin HCl (Tamsulosin Hcl 0.4 Mg Capsule) 0.4 mg PO DAILY [facility] Last Admin: 09/02/22 08:18 Dose: 0.4 mg Verapamil HCl (Verapamil Hcl Sr 120 Mg Tablet.Er) 120 mg PO DAILY [facility]; Protocol Last Admin: 09/02/22 08:11 Dose: 120 mg Zolpidem Tartrate (Zolpidem Tartrate 5 Mg Tablet) 5 mg PO BEDTIME [facility] Last Admin: 09/01/22 21:31 Dose: 5 mg Allergies Allergies Allergy/AdvReac Type Severity Reaction Status Date / Time ibuprofen Allergy Intermediate Stomach Verified 05/30/22 03:07 Upset penicillin V Allergy Intermediate rash Verified 05/30/22 03:07 Assessment & Plan Assessment & Plan (1) MDD (major depressive disorder), recurrent episode: Status: Acute Code(s): F33.9 - Major depressive disorder, recurrent, unspecified (2) Right knee pain: Status: Acute Code(s): M25.561 - Pain in right knee (3) Cocaine-induced anxiety disorder: Status: Acute Code(s): F14.980 - Cocaine use, unspecified with cocaine-induced anxiety disorder Plan 57-year-old male admitted to [facility] for suicidal ideation complaining of right knee pain, # right knee pain - likely secondary to osteoarthritis, no history of gout, no evidence of Dowling cyst - will obtain x-ray of the knee - ESR and CRP - will consult orthopedic surgery thank you for this consult, we will be signing off on this patient and transferring care to orthopedic please re-consult if he needs any further evaluation of patient PLAN 08/30 continue current medications. 08/31 continue current tx. 09/01 Increase seroquel to 200mg po qhs for sleep. Reason for contiued inpatient stay Substantial Risk for: harm to self Time Spent With Patient Time: Total time managing care of this patient today ____ minutes.
[2022-09-01] MEDS: NaPROXEN 500 MG TABLET PO (17:15)
[2022-09-01] MEDS: Famotidine 20 MG TABLET PO (17:16)
[2022-09-01 18:00] VITALS: BP 142/83; PULSE 80; RESP 16; TEMP 36.3; O2SAT 97
[2022-09-01] MEDS: Ferrous Sulfate 324 MG TABLET.DR PO (21:30)
[2022-09-01] MEDS: Atorvastatin Calcium 40 MG TABLET PO (21:30)
[2022-09-01] MEDS: QUEtiapine Fumarate 200 MG TABLET PO (21:30)
[2022-09-01] MEDS: Mirtazapine 30 MG TABLET PO (21:30)
[2022-09-01] MEDS: Zolpidem Tartrate 5 MG TABLET PO (21:31)
[2022-09-02] MEDS: Lidocaine 5 % Ointment 35 GM 1 APPL TOPICAL ×3 (02:39→22:10)
[2022-09-02] MEDS: QUEtiapine Fumarate 50 MG TABLET PO ×2 (02:40→20:35)
[2022-09-02] MEDS: hydrOXYzine HCL 50 MG TABLET PO ×3 (02:40→20:35)
[2022-09-02] MEDS: Albuterol Sulfate 90 MCG 8 GM INHALER 2 PUFF INHALE ×3 (03:59→22:10)
--- NOTE | 2022-09-02 04:08 | PC.NURSE ---
agitation-patient is angry. reports that he is in pain. lidocaine ointment used. given seroquel and atarax for c/o anxiety. also utilized inhaler. reporting that he feels ''terrible'' ''my leg hurts'' when approached for VS refused and walked away. avoiding eye contact. hospital kid club attendant called and utilized. allowed for VS 125/79, 97, 95% RA. ''I have pain'' ''I can not sleep''
[2022-09-02 04:10] VITALS: BP 125/79; PULSE 97; RESP 16; O2SAT 95
[2022-09-02] MEDS: Omeprazole 20 MG CAPSULE.DR PO (06:34)
[2022-09-02 08:00] VITALS: BP 125/89; PULSE 106; RESP 16; TEMP 36.8; O2SAT 96
[2022-09-02] MEDS: Acetaminophen 325 MG TABLET 975 MG PO ×3 (08:09→22:03)
[2022-09-02] MEDS: Famotidine 20 MG TABLET PO (08:10)
[2022-09-02] MEDS: HaloperidoL 1 MG TABLET 2 MG PO ×3 (08:10→22:02)
[2022-09-02] MEDS: NaPROXEN 500 MG TABLET PO ×2 (08:10→22:10)
[2022-09-02] MEDS: Gabapentin 300 MG CAPSULE PO (08:10)
[2022-09-02] MEDS: Baclofen 10 MG TABLET PO (08:11)
[2022-09-02] MEDS: VerapamiL HCL SR 120 MG TABLET.ER PO (08:11)
[2022-09-02] MEDS: Sennosides/Docusate Sodium TABLET 1 TAB PO ×2 (08:16→22:02)
[2022-09-02] MEDS: Tamsulosin HCL 0.4 MG CAPSULE PO (08:18)
--- NOTE | 2022-09-02 14:37 | HO.PSYCHPN ---
Subjective Subjective Date of Service: 09/02/22 Reason For Visit: Suicidal ideation Subjective Notes: Conditional Voluntary Interim History: We discussed at length risks related to opioid pain medication as he continues working on his recovery. Pt showed understanding and appreciation and stated he wants to continue substance use treatment. Pt explained knee pain is chronic. Pt reports mood is better, no voices. Per nursing, pt slept most of the night but when he woke up he was irritable asking for pain medication or discharge. Pt calmer this morning. No SI/HI. Diagnostics Vital Signs (24Hr): Vital Signs - 24 hr 09/01/22 18:00 09/02/22 04:10 09/02/22 08:00 Temperature 97.4 F 98.3 F Pulse Rate 80 97 106 H Respiratory Rate 16 16 16 Blood Pressure 142/83 H 125/79 125/89 Pulse Oximetry 97 95 96 Oxygen Delivery Method Room Air Room Air Room Air BMI result Body Mass Index 24.8 Labs 08/28/22 21:17 08/28/22 21:17 Imaging Radiology Impressions: ITS Impressions Venous Duplex 08/24/22 15:00 IMPRESSION: No DVT demonstrated in the bilateral lower extremities. Knee X-Ray 08/28/22 21:37 IMPRESSION: Mild degenerative changes but no acute fracture or dislocation. Posterior lateral femoral osteochondroma noted. Medications Medications Current Medications Acetaminophen (Acetaminophen 325 Mg Tablet) 975 mg PO TID [facility] Last Admin: 09/02/22 08:09 Dose: 975 mg Al Hydroxide/Mg Hydroxide (Magnesium Hydrox/Alum Hydrox 30 Ml Oral.Susp) 30 ml PO Q6H PRN PRN Reason: Heartburn/Nausea Last Admin: 08/30/22 21:20 Dose: 30 ml Albuterol Sulfate (Albuterol Sulfate 90 Mcg 8 Gm Inhaler) 2 puff INHALE Q4H PRN PRN Reason: Shortness Of Breath Or Wheezing Last Admin: 09/02/22 12:13 Dose: 2 puff Atorvastatin Calcium (Atorvastatin Calcium 40 Mg Tablet) 40 mg PO BEDTIME [facility] Last Admin: 09/01/22 21:30 Dose: 40 mg Baclofen (Baclofen 20 Mg Tablet) 20 mg PO TID [facility] Famotidine (Famotidine 20 Mg Tablet) 20 mg PO DAILY [facility] Last Admin: 09/02/22 08:10 Dose: 20 mg Ferrous Sulfate (Ferrous Sulfate 324 Mg Tablet.Dr) 324 mg PO BEDTIME [facility] Last Admin: 09/01/22 21:30 Dose: 324 mg Gabapentin (Gabapentin 400 Mg Capsule) 400 mg PO TID [facility] Haloperidol (Haloperidol 1 Mg Tablet) 2 mg PO TID [facility] Last Admin: 09/02/22 08:10 Dose: 2 mg Hydroxyzine HCl (Hydroxyzine Hcl 50 Mg Tablet) 50 mg PO Q4H PRN PRN Reason: Anxiety Last Admin: 09/02/22 12:13 Dose: 50 mg Lidocaine (Lidocaine 5 % Ointment 35 Gm) 1 appl TOPICAL Q6H PRN; Protocol PRN Reason: Pain, Moderate (Pain Scale 4-6 Last Admin: 09/02/22 11:52 Dose: 1 appl Magnesium Hydroxide (Milk Of Magnesia 30 Ml Oral.Susp) 30 ml PO DAILY PRN PRN Reason: Constipation Last Admin: 08/23/22 21:03 Dose: 30 ml Mirtazapine (Mirtazapine 30 Mg Tablet) 30 mg PO BEDTIME [facility] Last Admin: 09/01/22 21:30 Dose: 30 mg Naproxen (Naproxen 500 Mg Tablet) 500 mg PO BIDWM [facility] Last Admin: 09/02/22 08:10 Dose: 500 mg Omeprazole (Omeprazole 20 Mg Capsule.) 20 mg PO DAILY@0630 [facility] Last Admin: 09/02/22 06:34 Dose: 20 mg Polyethylene Glycol (Polyethylene Glycol 3350 17 Gm Powd.Pack) 17 gm PO DAILY [facility] Last Admin: 09/02/22 08:13 Dose: Not Given Quetiapine Fumarate (Quetiapine Fumarate 50 Mg Tablet) 50 mg PO BID PRN PRN Reason: voices, anxiety Last Admin: 09/02/22 02:40 Dose: 50 mg Quetiapine Fumarate (Quetiapine Fumarate 200 Mg Tablet) 200 mg PO BEDTIME [facility] Last Admin: 09/01/22 21:30 Dose: 200 mg Senna/Docusate Sodium (Sennosides/Docusate Sodium Tablet) 1 tab PO BID [facility] Last Admin: 09/02/22 08:16 Dose: 1 tab Tamsulosin HCl (Tamsulosin Hcl 0.4 Mg Capsule) 0.4 mg PO DAILY [facility] Last Admin: 09/02/22 08:18 Dose: 0.4 mg Verapamil HCl (Verapamil Hcl Sr 120 Mg Tablet.Er) 120 mg PO DAILY [facility]; Protocol Last Admin: 09/02/22 08:11 Dose: 120 mg Zolpidem Tartrate (Zolpidem Tartrate 5 Mg Tablet) 5 mg PO BEDTIME [facility] Last Admin: 09/01/22 21:31 Dose: 5 mg Allergies Allergies Allergy/AdvReac Type Severity Reaction Status Date / Time ibuprofen Allergy Intermediate Stomach Verified 05/30/22 03:07 Upset penicillin V Allergy Intermediate rash Verified 05/30/22 03:07 Assessment & Plan Assessment & Plan (1) MDD (major depressive disorder), recurrent episode: Status: Acute Code(s): F33.9 - Major depressive disorder, recurrent, unspecified (2) Right knee pain: Status: Acute Code(s): M25.561 - Pain in right knee (3) Cocaine-induced anxiety disorder: Status: Acute Code(s): F14.980 - Cocaine use, unspecified with cocaine-induced anxiety disorder Plan 57-year-old male admitted to [facility] for suicidal ideation complaining of right knee pain, # right knee pain - likely secondary to osteoarthritis, no history of gout, no evidence of Dowling cyst - will obtain x-ray of the knee - ESR and CRP - will consult orthopedic surgery thank you for this consult, we will be signing off on this patient and transferring care to orthopedic please re-consult if he needs any further evaluation of patient PLAN 08/30 continue current medications. 08/31 continue current tx. 09/01 Increase seroquel to 200mg po qhs for sleep. continue tx. increase baclofen to 20mg po TID for muscle relaxant and decrease cocaine cravings. Consult to pulmonology as pt reports exacerbation of COPD. Patient educated on: diagnosis Informed Consent: understands Reason for contiued inpatient stay Substantial Risk for: stable for discharge Time Spent With Patient Time: Total time managing care of this patient today ____ minutes.
[2022-09-02] MEDS: Gabapentin 400 MG CAPSULE PO ×2 (14:51→22:02)
[2022-09-02] MEDS: Baclofen 20 MG TABLET PO ×2 (14:52→22:02)
[2022-09-02] MEDS: Ferrous Sulfate 324 MG TABLET.DR PO (22:01)
[2022-09-02] MEDS: Atorvastatin Calcium 40 MG TABLET PO (22:02)
[2022-09-02] MEDS: Zolpidem Tartrate 5 MG TABLET PO (22:02)
[2022-09-02] MEDS: Mirtazapine 30 MG TABLET PO (22:02)
[2022-09-02] MEDS: QUEtiapine Fumarate 200 MG TABLET PO (22:02)
[2022-09-02 22:03] VITALS: BP 151/83; PULSE 94; RESP 18; TEMP 36.7; O2SAT 95
[2022-09-02 23:22] VITALS: BP 152/83; PULSE 95; RESP 18; TEMP 36.6; O2SAT 96
--- NOTE | 2022-09-02 23:24 | ECG_ITS ---
Test Reason : chest pain Blood Pressure : / mmHG Vent. Rate : 092 BPM Atrial Rate : 092 BPM P-R Int : 158 ms QRS Dur : 112 ms QT Int : 392 ms P-R-T Axes : 077 038 074 degrees QTc Int : 484 ms Normal sinus rhythm Prolonged QT Abnormal ECG When compared with ECG of 28-AUG-2022 11:32, Incomplete right bundle branch block is no longer Present Referred By: Jennifer Walker Electronically Signed By:Edgar Walker
--- NOTE | 2022-09-02 23:42 | PC.NURSE ---
Addendum entered by Carolyn Carmona RN 09/03/22 00:17: Pt c/o headache. Pt BP now 92bpm and 135/76. Given cool cloth and atarax 50mg & seroquel 50mg for anxiety. Pt had maxxed daily limit for APAP. Will continue to monitor. Original Note: At 2320 Pt woke c/o chest pain and SOB. VSS with exception of BP of 152/83. Provider cotton chopper EH ordered EKG. Nursing Spvsr notified. Will continue to monitor.
[2022-09-03] MEDS: hydrOXYzine HCL 50 MG TABLET PO ×2 (00:08→06:05)
[2022-09-03] MEDS: QUEtiapine Fumarate 50 MG TABLET PO (00:09)
[2022-09-03] MEDS: Albuterol Sulfate 90 MCG 8 GM INHALER 2 PUFF INHALE ×2 (06:04→23:42)
[2022-09-03] MEDS: Omeprazole 20 MG CAPSULE.DR PO (06:04)
[2022-09-03] MEDS: NaPROXEN 500 MG TABLET PO ×2 (08:24→17:22)
[2022-09-03 08:25] VITALS: BP 135/76; PULSE 98; RESP 16; TEMP 36.4; O2SAT 97
[2022-09-03] MEDS: Acetaminophen 325 MG TABLET 975 MG PO ×3 (08:25→21:43)
[2022-09-03] MEDS: Tamsulosin HCL 0.4 MG CAPSULE PO (08:26)
[2022-09-03] MEDS: Gabapentin 400 MG CAPSULE PO ×3 (08:26→21:44)
[2022-09-03] MEDS: HaloperidoL 1 MG TABLET 2 MG PO ×2 (08:26→21:44)
[2022-09-03] MEDS: Famotidine 20 MG TABLET PO (08:26)
[2022-09-03] MEDS: Baclofen 20 MG TABLET PO ×3 (08:26→21:43)
[2022-09-03] MEDS: VerapamiL HCL SR 120 MG TABLET.ER PO (08:26)
[2022-09-03] MEDS: Lidocaine 5 % Ointment 35 GM 1 APPL TOPICAL ×2 (08:29→17:11)
[2022-09-03] MEDS: clonazePAM 0.5 MG TABLET PO ×3 (11:49→21:44)
[2022-09-03] MEDS: Fluticasone Propionate 250 MCG BLST.W.DEV 1 PUFF INHALE ×2 (11:53→21:43)
--- NOTE | 2022-09-03 12:35 | HO.PSYCHPN ---
Subjective Subjective Date of Service: 09/03/22 Reason For Visit: Suicidal ideation Subjective Notes: Conditional Voluntary Interim History: Pt reports SOB, consult for COPD exacerbation ordered. He denies knee pain. He denies SI/HI. Pt reports sleeping better. No VH/AH. Medication Compliance: Yes Side effects from medications: No Attending Groups: Yes Review of Systems Review of Systems Yes all other systems are reviewed and are negative Mental Status Exam Mental Status Exam Narrative: Appearance: casually groomed, fair hygiene, in NAD Behavior: cooperative Psychomotor: no agitation or retardation noted Speech: clear, normal rate/rhythm/volume, spontaneous TP: linear TC: no signs of delusions, increase insight into effects of cocaine use, wanting treatment. Mood: depressed Affect: blunted SI: passive, no plan or intent. HI: none AH/VH: hearing voices, not command. Delusions: none Insight/judgment: poor x 2. Memory/cog: alert, oriented x 3. Diagnostics Vital Signs (24Hr): Vital Signs - 24 hr 09/04/22 16:30 09/04/22 21:25 Temperature 97.5 F Pulse Rate 102 H 108 H Respiratory Rate 22 H 18 Blood Pressure 120/66 153/91 H Pulse Oximetry 97 97 Oxygen Delivery Method Room Air Room Air BMI result Body Mass Index 24.6 Labs 08/28/22 21:17 08/28/22 21:17 Labs: Laboratory Results - last 48 hr 09/03/22 09/04/22 09/04/22 15:41 16:35 16:35 D-Dimer High Sensitivty < 150 Troponin I High Sens < 3.5 Respiratory Panel [place] See Note Adenovirus (Rapid PCR) Not Detected B.pert (TEM-PCR) Not Detected B.parapertussis DNA PCR Not Detected C. pneumoniae DNA (PCR) Not Detected Coronavirus OC43 (PCR) Not Detected Coronavirus HKU1 (PCR) Not Detected Coronavirus 229E (PCR) Not Detected Coronavirus NL63 (PCR) Not Detected Human Metapneumovir PCR Not Detected Influenza A (RT-PCR) Not Detected Influenza B (RT-PCR) Not Detected M. pneumoniae (PCR) Not Detected Parainfluenza 1 (PCR) Not Detected Parainfluenza 2 (PCR) Not Detected Parainfluenza 3 (PCR) Not Detected Parainfluenza 4 (PCR) Not Detected RSV (PCR) Not Detected Entero/Rhino (PCR) Not Detected SARS-CoV-2 RNA (RT-PCR) Not Detected Imaging Radiology Impressions: ITS Impressions Venous Duplex 08/24/22 15:00 IMPRESSION: No DVT demonstrated in the bilateral lower extremities. Knee X-Ray 08/28/22 21:37 IMPRESSION: Mild degenerative changes but no acute fracture or dislocation. Posterior lateral femoral osteochondroma noted. Chest CT 09/03/22 11:29 IMPRESSION: Emphysema. Small right pulmonary nodules, including small new 4 mm right middle lobe nodule. According to the UPDATED 2017 Fleischner Society recommendations, the advised follow-up imaging for less than 6 mm solid nodule: Low risk, no chest CT follow-up and high risk, optional chest CT follow-up in one year. [place] prominent soft tissue seen in the anterior superior mediastinum, question representing thymic hyperplasia. This is similar to June 2021 chest CTA. Mild coronary artery calcification. Fleischner guidelines were followed. Medications Medications Current Medications Acetaminophen (Acetaminophen 325 Mg Tablet) 975 mg PO TID [facility] Last Admin: 09/04/22 21:56 Dose: 975 mg Al Hydroxide/Mg Hydroxide (Magnesium Hydrox/Alum Hydrox 30 Ml Oral.Susp) 30 ml PO Q6H PRN PRN Reason: Heartburn/Nausea Last Admin: 09/04/22 17:09 Dose: 30 ml Albuterol Sulfate (Albuterol Sulfate 90 Mcg 8 Gm Inhaler) 2 puff INHALE Q2H PRN PRN Reason: Shortness Of Breath Or Wheezing Last Admin: 09/05/22 07:51 Dose: 2 puff Atorvastatin Calcium (Atorvastatin Calcium 40 Mg Tablet) 40 mg PO BEDTIME [facility] Last Admin: 09/04/22 21:33 Dose: 40 mg Baclofen (Baclofen 20 Mg Tablet) 20 mg PO TID [facility] Last Admin: 09/04/22 21:34 Dose: 20 mg Clonazepam (Clonazepam 0.5 Mg Tablet) 0.5 mg PO TID [facility] Last Admin: 09/04/22 21:32 Dose: 0.5 mg Albuterol Sulfate 2.5 mg/ (Ipratropium [place] 0.5 mg) 0 mg INHALE RQ4H WHILE AWAKE PRN PRN Reason: shortness of breath & wheezing Doxycycline Monohydrate (Doxycycline Monohydrate 100 Mg Capsule) 100 mg PO Q12H [facility] Stop: 09/08/22 06:01 Last Admin: 09/05/22 06:31 Dose: 100 mg Famotidine (Famotidine 20 Mg Tablet) 20 mg PO DAILY [facility] Last Admin: 09/04/22 08:35 Dose: 20 mg Ferrous Sulfate (Ferrous Sulfate 324 Mg Tablet.) 324 mg PO BEDTIME [facility] Last Admin: 09/04/22 21:32 Dose: 324 mg Fluticasone Propionate (Fluticasone Propionate 250 Mcg Blst.W.Dev) 1 puff INHALE RBID [facility] Last Admin: 09/04/22 21:29 Dose: 1 puff Gabapentin (Gabapentin 400 Mg Capsule) 400 mg PO TID [facility] Last Admin: 09/04/22 21:32 Dose: 400 mg Haloperidol (Haloperidol 1 Mg Tablet) 2 mg PO BID [facility] Last Admin: 09/04/22 21:32 Dose: 2 mg Hydroxyzine HCl (Hydroxyzine Hcl 50 Mg Tablet) 50 mg PO Q4H PRN PRN Reason: Anxiety Last Admin: 09/05/22 02:13 Dose: 50 mg Lactic Acid (Ammonium Lactate 12 % Lotion 226 Gm Bottle) 1 appl TOPICAL BID [facility]; Protocol Last Admin: 09/04/22 21:29 Dose: 1 appl Lidocaine (Lidocaine 5 % Ointment 35 Gm) 1 appl TOPICAL Q6H PRN; Protocol PRN Reason: Pain, Moderate (Pain Scale 4-6 Last Admin: 09/04/22 21:29 Dose: 1 appl Magnesium Hydroxide (Milk Of Magnesia 30 Ml Oral.Susp) 30 ml PO DAILY PRN PRN Reason: Constipation Last Admin: 08/23/22 21:03 Dose: 30 ml Mirtazapine (Mirtazapine 30 Mg Tablet) 30 mg PO BEDTIME [facility] Last Admin: 09/04/22 21:33 Dose: 30 mg Naproxen (Naproxen 500 Mg Tablet) 500 mg PO BIDWM [facility] Last Admin: 09/04/22 17:01 Dose: 500 mg Nicotine (Nicotine 7 Mg Patch.Td24) 7 mg TRANSDERMA DAILY [facility] Last Admin: 09/04/22 17:01 Dose: 7 mg Omeprazole (Omeprazole 20 Mg Capsule.) 20 mg PO DAILY@0630 [facility] Last Admin: 09/05/22 06:32 Dose: 20 mg Polyethylene Glycol (Polyethylene Glycol 3350 17 Gm Powd.Pack) 17 gm PO DAILY [facility] Last Admin: 09/04/22 08:52 Dose: 17 gm Prednisone (Prednisone 20 Mg Tablet) 40 mg PO DAILY [facility] Stop: 09/07/22 09:01 Last Admin: 09/04/22 08:35 Dose: 40 mg Quetiapine Fumarate (Quetiapine Fumarate 50 Mg Tablet) 50 mg PO BID PRN PRN Reason: voices, anxiety Last Admin: 09/05/22 00:10 Dose: 50 mg Quetiapine Fumarate (Quetiapine Fumarate 200 Mg Tablet) 200 mg PO BEDTIME [facility] Last Admin: 09/04/22 21:33 Dose: 200 mg Senna/Docusate Sodium (Sennosides/Docusate Sodium Tablet) 1 tab PO BID [facility] Last Admin: 09/04/22 21:33 Dose: 1 tab Tamsulosin HCl (Tamsulosin Hcl 0.4 Mg Capsule) 0.4 mg PO DAILY [facility] Last Admin: 09/04/22 08:35 Dose: 0.4 mg Verapamil HCl (Verapamil Hcl Sr 120 Mg Tablet.Er) 120 mg PO DAILY [facility]; Protocol Last Admin: 09/04/22 08:35 Dose: 120 mg Zolpidem Tartrate (Zolpidem Tartrate 5 Mg Tablet) 5 mg PO BEDTIME [facility] Last Admin: 09/04/22 21:56 Dose: 5 mg Allergies Allergies Allergy/AdvReac Type Severity Reaction Status Date / Time ibuprofen Allergy Intermediate Stomach Verified 05/30/22 03:07 Upset penicillin V Allergy Intermediate rash Verified 05/30/22 03:07 Assessment & Plan Assessment & Plan (1) MDD (major depressive disorder), recurrent episode: Status: Acute Code(s): F33.9 - Major depressive disorder, recurrent, unspecified (2) Right knee pain: Status: Acute Code(s): M25.561 - Pain in right knee (3) Cocaine-induced anxiety disorder: Status: Acute Code(s): F14.980 - Cocaine use, unspecified with cocaine-induced anxiety disorder Plan 57-year-old male admitted to [facility] for suicidal ideation complaining of right knee pain, # right knee pain - likely secondary to osteoarthritis, no history of gout, no evidence of Dowling cyst - will obtain x-ray of the knee - ESR and CRP - will consult orthopedic surgery thank you for this consult, we will be signing off on this patient and transferring care to orthopedic please re-consult if he needs any further evaluation of patient PLAN 08/30 continue current medications. 08/31 continue current tx. 09/01 Increase seroquel to 200mg po qhs for sleep. continue tx. increase baclofen to 20mg po TID for muscle relaxant and decrease cocaine cravings. Consult to pulmonology as pt reports exacerbation of COPD. 09/03 continue tx. Reason for contiued inpatient stay Substantial Risk for: harm to self Time Spent With Patient Time: Total time managing care of this patient today ____ minutes.
--- NOTE | 2022-09-03 14:13 | PM.EVENT ---
Event Note Date of Service: 09/03/22 Event Note: Pt with history COPD/asthma overalp, JERRY, BPH, depression, and substance use disorder who is a former smoker admitted to psychiatry with consult placed to Medicine for evaluation ?COPD exacerbation?. Patient reports for the last day he has been experiencing shortness of breath, primarily on exertion, wheezing, pleuritic chest pain, cough with increased sputum production, headache, and runny nose. States chest pain only occurs with deep inspiration and did have EKG performed yesterday showing normal sinus rhythm without any ST/T-wave abnormality but did show prolonged QT/QTC. He has been on the unit for 10 days and denies any known sick contacts. Chest CT was ordered by psychiatry provider in result pending. Lungs are diminished bilaterally. Will treat COPD exacerbation with 40 mg prednisone daily x5 days and doxycycline 100 mg twice daily x5 days. Recommend administering doxycycline with full glass of water and food and avoid lying down for at least 1 hour after taking medication. Encouraged patient to use albuterol inhaler as needed every 2 hours but will add DuoNebs p.r.n. as he states he does use these at home. Thank you for this consult. Will stay on for results. Please do not hesitate to reach out with questions. Time Spent With Patient Time: Total time managing care of this patient today ____ minutes.
[2022-09-03] MEDS: predniSONE 20 MG TABLET 40 MG PO (15:03)
[2022-09-03] MEDS: Doxycycline Monohydrate 100 MG CAPSULE PO (18:48)
[2022-09-03 21:40] VITALS: BP 167/86; PULSE 106; RESP 18; TEMP 36.6; O2SAT 94
[2022-09-03] MEDS: Zolpidem Tartrate 5 MG TABLET PO (21:43)
[2022-09-03] MEDS: Sennosides/Docusate Sodium TABLET 1 TAB PO (21:44)
[2022-09-03] MEDS: Mirtazapine 30 MG TABLET PO (21:44)
[2022-09-03] MEDS: QUEtiapine Fumarate 200 MG TABLET PO (21:44)
[2022-09-03] MEDS: Atorvastatin Calcium 40 MG TABLET PO (21:44)
[2022-09-03] MEDS: Ferrous Sulfate 324 MG TABLET.DR PO (21:44)
[2022-09-04] MEDS: Albuterol Sulfate 90 MCG 8 GM INHALER 2 PUFF INHALE ×3 (01:45→12:25)
[2022-09-04] MEDS: Lidocaine 5 % Ointment 35 GM 1 APPL TOPICAL ×4 (01:45→21:29)
[2022-09-04] MEDS: QUEtiapine Fumarate 50 MG TABLET PO ×3 (01:46→12:23)
[2022-09-04] MEDS: hydrOXYzine HCL 50 MG TABLET PO ×2 (01:47→05:49)
[2022-09-04] MEDS: Doxycycline Monohydrate 100 MG CAPSULE PO ×2 (05:49→17:01)
[2022-09-04 06:23] VITALS: BMI 24.6
[2022-09-04] MEDS: Omeprazole 20 MG CAPSULE.DR PO (06:31)
[2022-09-04 08:35] VITALS: BP 138/77; PULSE 103; RESP 20; TEMP 36.7; O2SAT 96
[2022-09-04] MEDS: Famotidine 20 MG TABLET PO (08:35)
[2022-09-04] MEDS: Tamsulosin HCL 0.4 MG CAPSULE PO (08:35)
[2022-09-04] MEDS: VerapamiL HCL SR 120 MG TABLET.ER PO (08:35)
[2022-09-04] MEDS: clonazePAM 0.5 MG TABLET PO ×3 (08:35→21:32)
[2022-09-04] MEDS: predniSONE 20 MG TABLET 40 MG PO (08:35)
[2022-09-04] MEDS: Fluticasone Propionate 250 MCG BLST.W.DEV 1 PUFF INHALE ×2 (08:35→21:29)
[2022-09-04] MEDS: Gabapentin 400 MG CAPSULE PO ×3 (08:36→21:32)
[2022-09-04] MEDS: Sennosides/Docusate Sodium TABLET 1 TAB PO ×2 (08:36→21:33)
[2022-09-04] MEDS: Acetaminophen 325 MG TABLET 975 MG PO ×3 (08:36→21:56)
[2022-09-04] MEDS: HaloperidoL 1 MG TABLET 2 MG PO ×2 (08:36→21:32)
[2022-09-04] MEDS: NaPROXEN 500 MG TABLET PO ×2 (08:37→17:01)
[2022-09-04] MEDS: Baclofen 20 MG TABLET PO ×3 (08:37→21:34)
[2022-09-04] MEDS: polyethylene glycoL 3350 17 GM POWD.PACK PO (08:52)
[2022-09-04 10:52] LABS: Adenovirus PCR Not Detected (Not Detect.); Bordetella parapertussis PCR Not Detected (Not Detect.); Bordetella pertussis PCR Not Detected (Not Detect.); Chlamydia pneumoniae PCR Not Detected (Not Detect.); Coronavirus 229E PCR Not Detected (Not Detect.); Coronavirus HKU1 PCR Not Detected (Not Detect.); Coronavirus NL63 PCR Not Detected (Not Detect.); Coronavirus OC43 PCR Not Detected (Not Detect.); Human metapneumovirus PCR Not Detected (Not Detect.); Influenza A PCR Not Detected (Not Detect.); Influenza B PCR Not Detected (Not Detect.); Mycoplasma pneumoniae PCR Not Detected (Not Detect.); Parainfluenza 1 PCR Not Detected (Not Detect.); Parainfluenza 2 PCR Not Detected (Not Detect.); Parainfluenza 3 PCR Not Detected (Not Detect.); Parainfluenza 4 PCR Not Detected (Not Detect.); RSV PCR Not Detected (Not Detect.); Rhino/Enterovirus PCR Not Detected (Not Detect.); SARS-CoV-2 PCR Not Detected (Not Detect.)
--- NOTE | 2022-09-04 12:28 | HO.PSYCHPN ---
Subjective Subjective Date of Service: 09/04/22 Reason For Visit: Suicidal ideation Subjective Notes: Conditional Voluntary Interim History: Pt reports sleeping better. He denies knee pain. He reports some improvement in SOB, but still struggling. He denies SI/HI. No VH/AH. Medication Compliance: Yes Side effects from medications: No Review of Systems Review of Systems Yes all other systems are reviewed and are negative Mental Status Exam Mental Status Exam Narrative: Appearance: casually groomed, fair hygiene, in NAD Behavior: cooperative Psychomotor: no agitation or retardation noted Speech: clear, normal rate/rhythm/volume, spontaneous TP: linear TC: no signs of delusions, increase insight into effects of cocaine use, wanting treatment. Mood: depressed Affect: blunted SI: passive, no plan or intent. HI: none AH/VH: hearing voices, not command. Delusions: none Insight/judgment: poor x 2. Memory/cog: alert, oriented x 3. Diagnostics Vital Signs (24Hr): Vital Signs - 24 hr 09/04/22 16:30 09/04/22 21:25 09/05/22 06:00 Temperature 97.5 F 97.7 F Pulse Rate 102 H 108 H 96 Respiratory Rate 22 H 18 16 Blood Pressure 120/66 153/91 H 134/88 Pulse Oximetry 97 97 97 Oxygen Delivery Method Room Air Room Air Room Air BMI result Body Mass Index 24.6 Labs 08/28/22 21:17 08/28/22 21:17 Labs: Laboratory Results - last 48 hr 09/03/22 09/04/22 09/04/22 15:41 16:35 16:35 D-Dimer High Sensitivty < 150 Troponin I High Sens < 3.5 Respiratory Panel [place] See Note Adenovirus (Rapid PCR) Not Detected B.pert (TEM-PCR) Not Detected B.parapertussis DNA PCR Not Detected C. pneumoniae DNA (PCR) Not Detected Coronavirus OC43 (PCR) Not Detected Coronavirus HKU1 (PCR) Not Detected Coronavirus 229E (PCR) Not Detected Coronavirus NL63 (PCR) Not Detected Human Metapneumovir PCR Not Detected Influenza A (RT-PCR) Not Detected Influenza B (RT-PCR) Not Detected M. pneumoniae (PCR) Not Detected Parainfluenza 1 (PCR) Not Detected Parainfluenza 2 (PCR) Not Detected Parainfluenza 3 (PCR) Not Detected Parainfluenza 4 (PCR) Not Detected RSV (PCR) Not Detected Entero/Rhino (PCR) Not Detected SARS-CoV-2 RNA (RT-PCR) Not Detected Imaging Radiology Impressions: ITS Impressions Venous Duplex 08/24/22 15:00 IMPRESSION: No DVT demonstrated in the bilateral lower extremities. Knee X-Ray 08/28/22 21:37 IMPRESSION: Mild degenerative changes but no acute fracture or dislocation. Posterior lateral femoral osteochondroma noted. Chest CT 09/03/22 11:29 IMPRESSION: Emphysema. Small right pulmonary nodules, including small new 4 mm right middle lobe nodule. According to the UPDATED 2017 Fleischner Society recommendations, the advised follow-up imaging for less than 6 mm solid nodule: Low risk, no chest CT follow-up and high risk, optional chest CT follow-up in one year. [place] prominent soft tissue seen in the anterior superior mediastinum, question representing thymic hyperplasia. This is similar to June 2021 chest CTA. Mild coronary artery calcification. Fleischner guidelines were followed. Medications Medications Current Medications Acetaminophen (Acetaminophen 325 Mg Tablet) 975 mg PO TID [facility] Last Admin: 09/05/22 08:52 Dose: 975 mg Al Hydroxide/Mg Hydroxide (Magnesium Hydrox/Alum Hydrox 30 Ml Oral.Susp) 30 ml PO Q6H PRN PRN Reason: Heartburn/Nausea Last Admin: 09/04/22 17:09 Dose: 30 ml Albuterol Sulfate (Albuterol Sulfate 90 Mcg 8 Gm Inhaler) 2 puff INHALE Q2H PRN PRN Reason: Shortness Of Breath Or Wheezing Last Admin: 09/05/22 07:51 Dose: 2 puff Atorvastatin Calcium (Atorvastatin Calcium 40 Mg Tablet) 40 mg PO BEDTIME [facility] Last Admin: 09/04/22 21:33 Dose: 40 mg Baclofen (Baclofen 20 Mg Tablet) 20 mg PO TID [facility] Last Admin: 09/05/22 08:53 Dose: 20 mg Clonazepam (Clonazepam 0.5 Mg Tablet) 0.5 mg PO TID [facility] Last Admin: 09/05/22 08:53 Dose: 0.5 mg Albuterol Sulfate 2.5 mg/ (Ipratropium [place] 0.5 mg) 0 mg INHALE RQ4H WHILE AWAKE PRN PRN Reason: shortness of breath & wheezing Doxycycline Monohydrate (Doxycycline Monohydrate 100 Mg Capsule) 100 mg PO Q12H [facility] Stop: 09/08/22 06:01 Last Admin: 09/05/22 06:31 Dose: 100 mg Famotidine (Famotidine 20 Mg Tablet) 20 mg PO DAILY [facility] Last Admin: 09/05/22 08:51 Dose: 20 mg Ferrous Sulfate (Ferrous Sulfate 324 Mg Tablet.) 324 mg PO BEDTIME [facility] Last Admin: 09/04/22 21:32 Dose: 324 mg Fluticasone Propionate (Fluticasone Propionate 250 Mcg Blst.W.Dev) 1 puff INHALE RBID [facility] Last Admin: 09/04/22 21:29 Dose: 1 puff Gabapentin (Gabapentin 400 Mg Capsule) 400 mg PO TID [facility] Last Admin: 09/05/22 08:53 Dose: 400 mg Haloperidol (Haloperidol 1 Mg Tablet) 2 mg PO BID [facility] Last Admin: 09/05/22 08:52 Dose: 2 mg Hydroxyzine HCl (Hydroxyzine Hcl 50 Mg Tablet) 50 mg PO Q4H PRN PRN Reason: Anxiety Last Admin: 09/05/22 02:13 Dose: 50 mg Lactic Acid (Ammonium Lactate 12 % Lotion 226 Gm Bottle) 1 appl TOPICAL BID [facility]; Protocol Last Admin: 09/04/22 21:29 Dose: 1 appl Lidocaine (Lidocaine 5 % Ointment 35 Gm) 1 appl TOPICAL Q6H PRN; Protocol PRN Reason: Pain, Moderate (Pain Scale 4-6 Last Admin: 09/04/22 21:29 Dose: 1 appl Magnesium Hydroxide (Milk Of Magnesia 30 Ml Oral.Susp) 30 ml PO DAILY PRN PRN Reason: Constipation Last Admin: 08/23/22 21:03 Dose: 30 ml Mirtazapine (Mirtazapine 30 Mg Tablet) 30 mg PO BEDTIME [facility] Last Admin: 09/04/22 21:33 Dose: 30 mg Naproxen (Naproxen 500 Mg Tablet) 500 mg PO BIDWM [facility] Last Admin: 09/05/22 08:51 Dose: 500 mg Nicotine (Nicotine 7 Mg Patch.Td24) 7 mg TRANSDERMA DAILY [facility] Last Admin: 09/05/22 08:56 Dose: 7 mg Omeprazole (Omeprazole 20 Mg Capsule.) 20 mg PO DAILY@0630 [facility] Last Admin: 09/05/22 06:32 Dose: 20 mg Polyethylene Glycol (Polyethylene Glycol 3350 17 Gm Powd.Pack) 17 gm PO DAILY [facility] Last Admin: 09/05/22 08:51 Dose: 17 gm Prednisone (Prednisone 20 Mg Tablet) 40 mg PO DAILY [facility] Stop: 09/07/22 09:01 Last Admin: 09/05/22 08:52 Dose: 40 mg Quetiapine Fumarate (Quetiapine Fumarate 50 Mg Tablet) 50 mg PO BID PRN PRN Reason: voices, anxiety Last Admin: 09/05/22 00:10 Dose: 50 mg Quetiapine Fumarate (Quetiapine Fumarate 200 Mg Tablet) 200 mg PO BEDTIME [facility] Last Admin: 09/04/22 21:33 Dose: 200 mg Senna/Docusate Sodium (Sennosides/Docusate Sodium Tablet) 1 tab PO BID [facility] Last Admin: 09/05/22 08:53 Dose: 1 tab Tamsulosin HCl (Tamsulosin Hcl 0.4 Mg Capsule) 0.4 mg PO DAILY [facility] Last Admin: 09/05/22 08:52 Dose: 0.4 mg Verapamil HCl (Verapamil Hcl Sr 120 Mg Tablet.Er) 120 mg PO DAILY [facility]; Protocol Last Admin: 09/05/22 08:53 Dose: 120 mg Zolpidem Tartrate (Zolpidem Tartrate 5 Mg Tablet) 5 mg PO BEDTIME [facility] Last Admin: 09/04/22 21:56 Dose: 5 mg Allergies Allergies Allergy/AdvReac Type Severity Reaction Status Date / Time ibuprofen Allergy Intermediate Stomach Verified 05/30/22 03:07 Upset penicillin V Allergy Intermediate rash Verified 05/30/22 03:07 Assessment & Plan Assessment & Plan (1) MDD (major depressive disorder), recurrent episode: Status: Acute Code(s): F33.9 - Major depressive disorder, recurrent, unspecified (2) Right knee pain: Status: Acute Code(s): M25.561 - Pain in right knee (3) Cocaine-induced anxiety disorder: Status: Acute Code(s): F14.980 - Cocaine use, unspecified with cocaine-induced anxiety disorder Plan 57-year-old male admitted to [facility] for suicidal ideation complaining of right knee pain, # right knee pain - likely secondary to osteoarthritis, no history of gout, no evidence of [place] cyst - will obtain x-ray of the knee - ESR and CRP - will consult orthopedic surgery thank you for this consult, we will be signing off on this patient and transferring care to orthopedic please re-consult if he needs any further evaluation of patient PLAN 08/30 continue current medications. 08/31 continue current tx. 09/01 Increase seroquel to 200mg po qhs for sleep. continue tx. increase baclofen to 20mg po TID for muscle relaxant and decrease cocaine cravings. Consult to pulmonology as pt reports exacerbation of COPD. 09/03 continue tx. 09/04 continue tx. Reason for contiued inpatient stay Substantial Risk for: stable for discharge Time Spent With Patient Time: Total time managing care of this patient today ____ minutes.
[2022-09-04] MEDS: Ammonium Lactate 12 % Lotion 226 GM BOTTLE 1 APPL TOPICAL ×2 (15:36→21:29)
--- NOTE | 2022-09-04 16:17 | ECG_ITS ---
Test Reason : chest pain Blood Pressure : / mmHG Vent. Rate : 092 BPM Atrial Rate : 092 BPM P-R Int : 156 ms QRS Dur : 110 ms QT Int : 358 ms P-R-T Axes : 077 028 076 degrees QTc Int : 442 ms Normal sinus rhythm Incomplete right bundle branch block Borderline ECG When compared with ECG of 02-SEP-2022 23:48, Incomplete right bundle branch block is now Present Referred By: Jennifer Walker Electronically Signed By:FREDI LACKEY
[2022-09-04 16:30] VITALS: BP 120/66; PULSE 102; RESP 22; O2SAT 97
[2022-09-04] MEDS: Nicotine 7 MG PATCH.TD24 TRANSDERMA (17:01)
[2022-09-04 17:02] LABS: Troponin-I High Sensitivity < 3.5 ng/L (<3.5-35.0)
--- NOTE | 2022-09-04 17:05 | PM.EVENT ---
Event Note Date of Service: 09/05/22 Event Note: S:Follow-up headache and inspiratory pleuritic chest pain. Seen and evaluated for similar symptoms yesterday. Chest CT negative for any acute consolidation, history of emphysema. Started on 5 days of prednisone and doxycycline for possible COPD exacerbation. Seen today. Reported headache with lightheadedness. denied shortness breath, wheezing, chest pain, nausea, vomiting diarrhea, visual changes, loss of consciousness. Patient has a history of of headaches with multiple head CTs in the past with no acute findings. No hypoxia or hypotension noted. When arrived for the interview the patient was laying down sleeping. EKG completed showing normal sinus rhythm, negative troponin O:Alert and oriented x3 Lung sounds diminished Abdomen soft, positive bowel sounds AP:Headache Fioricet, Tylenol as needed Pleuritic chest pain Possibly from coughing No consolidation noted on chest CT No indication of infection May use warm compress for comfort COPD Does not appear to be in exacerbation May complete course of steroid and antibiotic Time Spent With Patient Time: Total time managing care of this patient today ____ minutes.
[2022-09-04] MEDS: Magnesium Hydrox/Alum Hydrox 30 ML ORAL.SUSP PO (17:09)
[2022-09-04] MEDS: Butalb/Acetamin/Caff 50/325/40 TABLET 1 TAB PO (17:51)
[2022-09-04 17:54] LABS: D Dimer High Sensitivity < 150 NG/ML
[2022-09-04 21:25] VITALS: BP 153/91; PULSE 108; RESP 18; TEMP 36.4; O2SAT 97
[2022-09-04] MEDS: Ferrous Sulfate 324 MG TABLET.DR PO (21:32)
[2022-09-04] MEDS: Atorvastatin Calcium 40 MG TABLET PO (21:33)
[2022-09-04] MEDS: QUEtiapine Fumarate 200 MG TABLET PO (21:33)
[2022-09-04] MEDS: Mirtazapine 30 MG TABLET PO (21:33)
[2022-09-04] MEDS: Zolpidem Tartrate 5 MG TABLET PO (21:56)
[2022-09-05] MEDS: QUEtiapine Fumarate 50 MG TABLET PO (00:10)
[2022-09-05] MEDS: Albuterol Sulfate 90 MCG 8 GM INHALER 2 PUFF INHALE ×5 (00:10→21:28)
[2022-09-05] MEDS: hydrOXYzine HCL 50 MG TABLET PO ×2 (02:13→11:54)
[2022-09-05] MEDS: LORazepam 1 MG TABLET 2 MG PO (03:06)
[2022-09-05 06:00] VITALS: BP 134/88; PULSE 96; RESP 16; TEMP 36.5; O2SAT 97
[2022-09-05] MEDS: Doxycycline Monohydrate 100 MG CAPSULE PO ×2 (06:31→17:58)
[2022-09-05] MEDS: Omeprazole 20 MG CAPSULE.DR PO (06:32)
--- NOTE | 2022-09-05 07:16 | PC.NURSE ---
Pt woke at 0230, crying and very shaken about a dream that he had. He stated that in the dream he was high and that he woke up wanting desperately to use. Pt was in a state of extreme distress. [employer] was used to translate. Pt stated that he is terrified that if he is discharged today that he will use. He was begging for someone to make sure that he gets accompanied to [facility] or he fears that he will get high. Pt spoke of wanting to have his provider here write a letter to [facility] not allowing him to leave until treatment is finished as he is terrified he will get high. Pt also stated that he wanted to be on anti-anxiety meds to control his anxiety levels so that he would not want to sign himself out of [facility] [place] to get high. Pt was in such a state of distress that hospital education coordinator Denise was notified and ordered Ativan 2mg with good effect.
[2022-09-05] MEDS: Famotidine 20 MG TABLET PO (08:51)
[2022-09-05] MEDS: NaPROXEN 500 MG TABLET PO ×2 (08:51→17:58)
[2022-09-05] MEDS: polyethylene glycoL 3350 17 GM POWD.PACK PO (08:51)
[2022-09-05] MEDS: Tamsulosin HCL 0.4 MG CAPSULE PO (08:52)
[2022-09-05] MEDS: HaloperidoL 1 MG TABLET 2 MG PO ×2 (08:52→21:17)
[2022-09-05] MEDS: predniSONE 20 MG TABLET 40 MG PO (08:52)
[2022-09-05] MEDS: Acetaminophen 325 MG TABLET 975 MG PO ×3 (08:52→21:30)
[2022-09-05] MEDS: Baclofen 20 MG TABLET PO ×3 (08:53→21:18)
[2022-09-05] MEDS: Sennosides/Docusate Sodium TABLET 1 TAB PO ×2 (08:53→21:17)
[2022-09-05] MEDS: clonazePAM 0.5 MG TABLET PO ×3 (08:53→21:16)
[2022-09-05] MEDS: VerapamiL HCL SR 120 MG TABLET.ER PO (08:53)
[2022-09-05] MEDS: Gabapentin 400 MG CAPSULE PO ×3 (08:53→21:19)
[2022-09-05] MEDS: Nicotine 7 MG PATCH.TD24 TRANSDERMA (08:56)
[2022-09-05] MEDS: Ammonium Lactate 12 % Lotion 226 GM BOTTLE 1 APPL TOPICAL ×2 (09:40→21:29)
[2022-09-05] MEDS: Fluticasone Propionate 250 MCG BLST.W.DEV 1 PUFF INHALE ×2 (09:40→21:40)
--- NOTE | 2022-09-05 10:19 | P.PNPSI_ITS ---
Subjective Subjective Date of Service: 09/05/22 Reason For Visit: Suicidal ideation Subjective Notes: Conditional Voluntary Interim History: Per nursing, pt woke up last night crying, reporting he was worried that he will quickly relapsed, asking this medical technical writer to write letter to [employer] [facility] asking them not to let him go even if he asks to go. He reports some cravings today but less. He continues to express motivation to continue substance use treatment. No SI/HI. No VH/AH. Medication Compliance: Yes Review of Systems Review of Systems Yes all other systems are reviewed and are negative Constitutional: Denies daytime sleepiness, Denies excessive sweating, Denies fatigue, Denies fever(s), Denies lethargy, Denies malaise, Denies night sweats, Denies snoring and Denies weight loss Eyes: Denies blurry vision and Denies itchy eyes Denies nasal congestion, Denies post nasal drip, Denies sinus pain, Denies sinus pressure and Denies other ( Thrush) Cardiovascular: Denies chest pain, Denies pedal edema, Denies dyspnea, Denies orthopnea and Denies paroxysmal nocturnal dyspnea Respiratory: Denies cough, Denies hemoptysis, Denies excessive phlegm production, Denies dyspnea, Denies snoring and Denies wheezing Gastrointestinal: Denies abdominal pain and Denies heartburn Musculoskeletal: Denies myalgias, Denies arthralgias and Denies joint swelling Skin/Breast: Denies rash Denies memory loss and Denies seizure-like activity Psychiatric: Denies abnormal sleep pattern, Denies anxiety and Denies memory loss Endocrine: Denies excessive sweating, Denies fatigue and Denies heat intolerance Hematologic/Lymphatic: Denies easy bruising Allergic/Immunologic: Denies itchy eyes, Denies seasonal rhinorrhea and Denies wheezing Mental Status Exam Mental Status Exam Narrative: Appearance: casually groomed, fair hygiene, in NAD Behavior: cooperative Psychomotor: no agitation or retardation noted Speech: clear, normal rate/rhythm/volume, spontaneous TP: linear TC: no signs of delusions, increase insight into effects of cocaine use, wanting treatment. Mood: depressed Affect: blunted SI: passive, no plan or intent. HI: none AH/VH: hearing voices, not command. Delusions: none Insight/judgment: poor x 2. Memory/cog: alert, oriented x 3. Diagnostics Vital Signs (24Hr): Vital Signs - 24 hr 09/04/22 16:30 09/04/22 21:25 09/05/22 06:00 Temperature 97.5 F 97.7 F Pulse Rate 102 H 108 H 96 Respiratory Rate 22 H 18 16 Blood Pressure 120/66 153/91 H 134/88 Pulse Oximetry 97 97 97 Oxygen Delivery Method Room Air Room Air Room Air BMI result Body Mass Index 24.6 Labs 08/28/22 21:17 08/28/22 21:17 Labs: Laboratory Results - last 48 hr 09/03/22 09/04/22 09/04/22 15:41 16:35 16:35 D-Dimer High Sensitivty < 150 Troponin I High Sens < 3.5 Respiratory Panel [place] See Note Adenovirus (Rapid PCR) Not Detected B.pert (TEM-PCR) Not Detected B.parapertussis DNA PCR Not Detected C. pneumoniae DNA (PCR) Not Detected Coronavirus OC43 (PCR) Not Detected Coronavirus HKU1 (PCR) Not Detected Coronavirus 229E (PCR) Not Detected Coronavirus NL63 (PCR) Not Detected Human Metapneumovir PCR Not Detected Influenza A (RT-PCR) Not Detected Influenza B (RT-PCR) Not Detected M. pneumoniae (PCR) Not Detected Parainfluenza 1 (PCR) Not Detected Parainfluenza 2 (PCR) Not Detected Parainfluenza 3 (PCR) Not Detected Parainfluenza 4 (PCR) Not Detected RSV (PCR) Not Detected Entero/Rhino (PCR) Not Detected SARS-CoV-2 RNA (RT-PCR) Not Detected Imaging Radiology Impressions: ITS Impressions Venous Duplex 08/24/22 15:00 IMPRESSION: No DVT demonstrated in the bilateral lower extremities. Knee X-Ray 08/28/22 21:37 IMPRESSION: Mild degenerative changes but no acute fracture or dislocation. Posterior lateral femoral osteochondroma noted. Chest CT 09/03/22 11:29 IMPRESSION: Emphysema. Small right pulmonary nodules, including small new 4 mm right middle lobe nodule. According to the UPDATED 2017 Fleischner Society recommendations, the advised follow-up imaging for less than 6 mm solid nodule: Low risk, no chest CT follow-up and high risk, optional chest CT follow-up in one year. [place] prominent soft tissue seen in the anterior superior mediastinum, question representing thymic hyperplasia. This is similar to June 2021 chest CTA. Mild coronary artery calcification. Fleischner guidelines were followed. Medications Medications Current Medications Acetaminophen (Acetaminophen 325 Mg Tablet) 975 mg PO TID [facility] Last Admin: 09/05/22 14:25 Dose: 975 mg Al Hydroxide/Mg Hydroxide (Magnesium Hydrox/Alum Hydrox 30 Ml Oral.Susp) 30 ml PO Q6H PRN PRN Reason: Heartburn/Nausea Last Admin: 09/04/22 17:09 Dose: 30 ml Albuterol Sulfate (Albuterol Sulfate 90 Mcg 8 Gm Inhaler) 2 puff INHALE Q2H PRN PRN Reason: Shortness Of Breath Or Wheezing Last Admin: 09/05/22 14:46 Dose: 2 puff Atorvastatin Calcium (Atorvastatin Calcium 40 Mg Tablet) 40 mg PO BEDTIME [facility] Last Admin: 09/04/22 21:33 Dose: 40 mg Baclofen (Baclofen 20 Mg Tablet) 20 mg PO TID [facility] Last Admin: 09/05/22 14:23 Dose: 20 mg Clonazepam (Clonazepam 0.5 Mg Tablet) 0.5 mg PO TID [facility] Last Admin: 09/05/22 14:22 Dose: 0.5 mg Albuterol Sulfate 2.5 mg/ (Ipratropium [place] 0.5 mg) 0 mg INHALE RQ4H WHILE AWAKE PRN PRN Reason: shortness of breath & wheezing Doxycycline Monohydrate (Doxycycline Monohydrate 100 Mg Capsule) 100 mg PO Q12H [facility] Stop: 09/08/22 06:01 Last Admin: 09/05/22 06:31 Dose: 100 mg Famotidine (Famotidine 20 Mg Tablet) 20 mg PO DAILY [facility] Last Admin: 09/05/22 08:51 Dose: 20 mg Ferrous Sulfate (Ferrous Sulfate 324 Mg Tablet.Dr) 324 mg PO BEDTIME [facility] Last Admin: 09/04/22 21:32 Dose: 324 mg Fluticasone Propionate (Fluticasone Propionate 250 Mcg Blst.W.Dev) 1 puff INHALE RBID [facility] Last Admin: 09/05/22 09:40 Dose: 1 puff Gabapentin (Gabapentin 400 Mg Capsule) 400 mg PO TID [facility] Last Admin: 09/05/22 14:22 Dose: 400 mg Haloperidol (Haloperidol 1 Mg Tablet) 2 mg PO BID [facility] Last Admin: 09/05/22 08:52 Dose: 2 mg Hydroxyzine HCl (Hydroxyzine Hcl 50 Mg Tablet) 50 mg PO Q4H PRN PRN Reason: Anxiety Last Admin: 09/05/22 11:54 Dose: 50 mg Lactic Acid (Ammonium Lactate 12 % Lotion 226 Gm Bottle) 1 appl TOPICAL BID [facility]; Protocol Last Admin: 09/05/22 09:40 Dose: 1 appl Lidocaine (Lidocaine 5 % Ointment 35 Gm) 1 appl TOPICAL Q6H PRN; Protocol PRN Reason: Pain, Moderate (Pain Scale 4-6 Last Admin: 09/04/22 21:29 Dose: 1 appl Magnesium Hydroxide (Milk Of Magnesia 30 Ml Oral.Susp) 30 ml PO DAILY PRN PRN Reason: Constipation Last Admin: 08/23/22 21:03 Dose: 30 ml Mirtazapine (Mirtazapine 30 Mg Tablet) 30 mg PO BEDTIME [facility] Last Admin: 09/04/22 21:33 Dose: 30 mg Naproxen (Naproxen 500 Mg Tablet) 500 mg PO BIDWM [facility] Last Admin: 09/05/22 08:51 Dose: 500 mg Nicotine (Nicotine 7 Mg Patch.Td24) 7 mg TRANSDERMA DAILY [facility] Last Admin: 09/05/22 08:56 Dose: 7 mg Omeprazole (Omeprazole 20 Mg Capsule.Dr) 20 mg PO DAILY@0630 [facility] Last Admin: 09/05/22 06:32 Dose: 20 mg Polyethylene Glycol (Polyethylene Glycol 3350 17 Gm Powd.Pack) 17 gm PO DAILY [facility] Last Admin: 09/05/22 08:51 Dose: 17 gm Prednisone (Prednisone 20 Mg Tablet) 40 mg PO DAILY [facility] Stop: 09/07/22 09:01 Last Admin: 09/05/22 08:52 Dose: 40 mg Quetiapine Fumarate (Quetiapine Fumarate 50 Mg Tablet) 50 mg PO BID PRN PRN Reason: voices, anxiety Last Admin: 09/05/22 00:10 Dose: 50 mg Quetiapine Fumarate (Quetiapine Fumarate 200 Mg Tablet) 200 mg PO BEDTIME [facility] Last Admin: 09/04/22 21:33 Dose: 200 mg Senna/Docusate Sodium (Sennosides/Docusate Sodium Tablet) 1 tab PO BID [facility] Last Admin: 09/05/22 08:53 Dose: 1 tab Tamsulosin HCl (Tamsulosin Hcl 0.4 Mg Capsule) 0.4 mg PO DAILY [facility] Last Admin: 09/05/22 08:52 Dose: 0.4 mg Verapamil HCl (Verapamil Hcl Sr 120 Mg Tablet.Er) 120 mg PO DAILY [facility]; Protocol Last Admin: 09/05/22 08:53 Dose: 120 mg Zolpidem Tartrate (Zolpidem Tartrate 5 Mg Tablet) 5 mg PO BEDTIME [facility] Last Admin: 09/04/22 21:56 Dose: 5 mg Allergies Allergies Allergy/AdvReac Type Severity Reaction Status Date / Time ibuprofen Allergy Intermediate Stomach Verified 05/30/22 03:07 Upset penicillin V Allergy Intermediate rash Verified 05/30/22 03:07 Assessment & Plan Assessment & Plan (1) MDD (major depressive disorder), recurrent episode: Status: Acute Code(s): F33.9 - Major depressive disorder, recurrent, unspecified (2) Cannabis use disorder, moderate, dependence: Status: Acute Code(s): F12.20 - Cannabis dependence, uncomplicated (3) Cocaine use disorder: Status: Acute Code(s): F14.10 - Cocaine abuse, uncomplicated Plan 09/05 start topamax for headache and some benefit in cocaine craving. Patient educated on: diagnosis Reason for contiued inpatient stay Substantial Risk for: stable for discharge Time Spent With Patient Time: Total time managing care of this patient today ____ minutes.
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
--- NOTE | 2022-09-05 14:02 | PC.RT ---
pt receiving prn q2 prn albuterol MDi as well as Flovent Bid. Pt also has a prn order for Duonebs. Therefore the order that Jennifer Valle for scheduled tx's was dc'd as it is not ordered
--- NOTE | 2022-09-05 14:35 | PC.NURSE ---
Reviewed Acetaminophen order with pharmacy Erin: Though dosage exceeds 3,000 mg, may continue to give as ordered.
--- NOTE | 2022-09-05 17:32 | PM.PSYDC ---
DS: Providers Provider Date of Service: 09/05/22 Date of admission: 08/22/22 20:31 Primary care physician: [facility] Consults: 08/28/22 18:25 Consult to Hospitalist Routine Consulting Provider: Hospitalist Reason For Exam: bakers cyst on knee - painful eval and treat 09/02/22 10:14 Consult to Pulmonology Routine Consulting Provider: Aaron Gerber Reason for consultation: COPD exacerbation Has provider been notified: Yes 09/03/22 11:05 Consult to Hospitalist Routine Consulting Provider: Hospitalist Reason For Exam: COPD exacerbation 09/04/22 16:31 Consult to Hospitalist Stat Consulting Provider: Hospitalist Reason For Exam: new dizziness, 10 chest pain 04/25 MARTINES DS: Diagnosis Discharge Diagnosis (1) MDD (major depressive disorder), recurrent episode: Status: Acute (2) Cannabis use disorder, moderate, dependence: Status: Acute (3) Cocaine use disorder: Status: Acute DS: Medications Discharge Medications Home Medications: Previous Rx's Medication Instructions Recorded acetaminophen 325 mg tablet 975 mg PO TID #120 tabs 09/05/22 albuterol sulfate 2.5 mg/3 mL 2.5 mg (3 mL) inhalation RQ4H 09/05/22 (0.083 %) solution for nebulization WHILE AWAKE PRN shortness of breath & wheezing #75 mL albuterol sulfate 90 mcg/actuation 2 puff inhalation Q2H PRN 09/05/22 aerosol inhaler (Ventolin HFA) Shortness Of Breath Or Wheezing #6.7 grams ammonium lactate 12 % lotion 1 appl topical BID #225 grams 09/05/22 atorvastatin 40 mg tablet 40 mg PO BEDTIME #30 tabs 09/05/22 baclofen 20 mg tablet 20 mg PO TID #90 tabs 09/05/22 clonazepam 0.5 mg tablet 0.5 mg PO TID #45 tabs 09/05/22 doxycycline monohydrate 100 mg 100 mg PO Q12H #21 caps 09/05/22 capsule ferrous sulfate 324 mg (65 mg 324 mg PO BEDTIME #30 tabs 09/05/22 iron) tablet,delayed release fluticasone propionate 250 1 inh inhalation RBID #60 ea 09/05/22 mcg/actuation blister powder for inhalation (Flovent Diskus) gabapentin 400 mg capsule 400 mg PO TID #90 caps 09/05/22 hydroxyzine HCl 50 mg tablet 50 mg PO Q4H PRN Anxiety #90 tabs 09/05/22 ipratropium bromide 0.02 % 0.5 mg (2.5 mL) inhalation RQ4H 09/05/22 solution for inhalation WHILE AWAKE PRN shortness of breath & wheezing #62.5 mL lidocaine 5 % topical ointment 1 appl topical Q6H PRN Pain, 09/05/22 Moderate (Pain Scale 4-6 #30 grams mirtazapine 30 mg tablet 30 mg PO BEDTIME #30 tabs 09/05/22 naproxen 500 mg tablet 500 mg PO BIDWM #60 tabs 09/05/22 nicotine 7 mg/24 hr daily 7 mg transdermal DAILY #30 ea 09/05/22 transdermal patch omeprazole 20 mg capsule,delayed 20 mg PO DAILY@0630 #30 caps 09/05/22 release polyethylene glycol 3350 17 gram 17 g PO DAILY #30 ea 09/05/22 oral powder packet prednisone 20 mg tablet 40 mg PO DAILY #2 tabs 09/05/22 quetiapine 200 mg tablet 200 mg PO BEDTIME #30 tabs 09/05/22 quetiapine 50 mg tablet 50 mg PO BID PRN voices, anxiety 09/05/22 #60 tabs sennosides 8.6 mg-docusate sodium 1 tab PO BID #60 tabs 09/05/22 50 mg tablet (Senna Plus) tamsulosin 0.4 mg capsule 0.4 mg PO DAILY #30 caps 09/05/22 topiramate 50 mg tablet 50 mg PO BEDTIME #30 tabs 09/05/22 topiramate 50 mg tablet 50 mg PO BEDTIME #30 tabs 09/05/22 verapamil 120 mg tablet,extended 120 mg PO DAILY #30 tabs 09/05/22 release zolpidem 5 mg tablet 5 mg PO BEDTIME #30 tabs 09/05/22 Mental Status Exam Mental Status Exam Narrative: Appearance: casually groomed, fair hygiene, in NAD Behavior: cooperative Psychomotor: no agitation or retardation noted Speech: clear, normal rate/rhythm/volume, spontaneous TP: linear TC: no signs of delusions, future oriented. Mood: better Affect: brighter SI:none HI: none AH/VH: hearing voices, not command. Delusions: none Insight/judgment: poor x 2. Memory/cog: alert, oriented x 3. Data Data Completed and Pending Completed studies during hospitalization [Text1]: 09/03/22 09/04/22 09/04/22 15:41 16:35 16:35 D-Dimer High Sensitivty < 150 Troponin I High Sens < 3.5 Respiratory Panel U[place] See Note Adenovirus (Rapid PCR) Not Detected B.pert (TEM-PCR) Not Detected B.parapertussis DNA PCR Not Detected C. pneumoniae DNA (PCR) Not Detected Coronavirus OC43 (PCR) Not Detected Coronavirus HKU1 (PCR) Not Detected Coronavirus 229E (PCR) Not Detected Coronavirus NL63 (PCR) Not Detected Human Metapneumovir PCR Not Detected Influenza A (RT-PCR) Not Detected Influenza B (RT-PCR) Not Detected M. pneumoniae (PCR) Not Detected Parainfluenza 1 (PCR) Not Detected Parainfluenza 2 (PCR) Not Detected Parainfluenza 3 (PCR) Not Detected Parainfluenza 4 (PCR) Not Detected RSV (PCR) Not Detected Entero/Rhino (PCR) Not Detected SARS-CoV-2 RNA (RT-PCR) Not Detected Imaging Diagnostic Imaging Impressions Venous Duplex 08/24/22 15:00 IMPRESSION: No DVT demonstrated in the bilateral lower extremities. Knee X-Ray 08/28/22 21:37 IMPRESSION: Mild degenerative changes but no acute fracture or dislocation. Posterior lateral femoral osteochondroma noted. Chest CT 09/03/22 11:29 IMPRESSION: Emphysema. Small right pulmonary nodules, including small new 4 mm right middle lobe nodule. According to the UPDATED 2017 Fleischner Society recommendations, the advised follow-up imaging for less than 6 mm solid nodule: Low risk, no chest CT follow-up and high risk, optional chest CT follow-up in one year. [place] prominent soft tissue seen in the anterior superior mediastinum, question representing thymic hyperplasia. This is similar to June 2021 chest CTA. Mild coronary artery calcification. Fleischner guidelines were followed. DS: Summary Hospital Course Hospital Course: Subjective Notes: Small Warning and Conditional Voluntary Narrative: Mr. Vital is a 57 year-old with hx of MDD, cocaine use disorder who self presented to [facility] [place] [facility] ED reporting increased depressed mood, suicidal ideation with plan to OD. Utox positive for cocaine. 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 On the unit, pt presents as tearful. He endorses feeling hopeless, helpless. He shows more insight into his substance use and need for treatment. He reports poor sleep and poor appetite. He reports feeling very anxious. He reports passive SI, no current plan. He reports he has been using cocaine daily. He reports hearing voices at times whispers, these voices get worse when using cocaine. He reports he recently tried to go back with his who had left him last year due to his substance use but things did not ended up well. He reports he is motivated to continue dual dx treatment. Past Psychiatric History: -Pt was receiving OP psych services at [facility] but he was recently discharged. Prev at [facility] [phone]. Hx of [facility] admission in 2009. Hx of [facility] admission in 2009. -Hx of multiple inpatient psych admissions since 2007, last was 01/2022, 11/2021 at [facility], prior to that was 2017 at [place] for ODing on seroquel as a SA. Hx of being at [facility] M[facility] in 2012, 2013, 2014, and 2015. Medical Evaluation Reviewed: Yes HOSPITAL COURSE On the unit, pt was admitted on a CV and placed on 15 minutes checks for safety. Pt reported feeling more depressed, suicidal. He showed increased insight into effects of substance use on his life, relationships and financial stability. He showed motivation to continue residential substance use treatment program. After discussing risks, benefits and alternative treatment options, pt agreed to continue remeron for depression. He reported hearing voices mostly at night. He initially had seroquel but reported not effective. Pt started on low dose of haldol. However, his ekg showed slightly Qtc prolongation. He was seen by pulmonology due to exacerbation of COPD. There were no incidences of disruptive behaviors nor need for restraints. Pt was step down to residential program. He reported less depressed mood, no SI/HI. No VH/AH. He presented as very future oriented looking forward to continue tx and see family. Status at Discharge Cognitive/behavioral status at discharge: Pt with brighter, non labile affect. No SI/HI. No VH/AH. Future oriented. He was sleeping and eating well. No signs of aggression towards self or others. Functional status at discharge: independent ambulation Overall status at discharge: patient is progressing back to baseline Time Spent with Patient Time attestation: Total time managing care of this patient today _20___ minutes. Discharge Plan Discharge Anticipated Discharge Date/Time: 09/06/22 07:00 Patient Disposition: Home, Self-Care Discharge Diagnosis: MDD, recurrent, moderate cocaine use disorder Referrals: [facility] [Primary Care Provider] - 1 Week Discharge Medications: New verapamil 120 mg Tablet Extended Release 120 mg PO DAILY Qty: 30 0RF Protocol: Hold for SBP/HR < HOLD for SBP < : 90 HOLD for HR < : 60 atorvastatin 40 mg Tablet 40 mg PO BEDTIME Qty: 30 0RF acetaminophen 325 mg Tablet 975 mg PO TID Qty: 120 0RF baclofen 20 mg Tablet 20 mg PO TID Qty: 90 0RF tamsulosin 0.4 mg Capsule 0.4 mg PO DAILY Qty: 30 0RF doxycycline monohydrate 100 mg Capsule 100 mg PO Q12H Qty: 21 0RF mirtazapine 30 mg Tablet 30 mg PO BEDTIME Qty: 30 0RF albuterol sulfate [Ventolin HFA] 90 mcg/actuation Hfa Aerosol Inhaler 2 puff inhalation Q2H PRN (Reason: Shortness Of Breath Or Wheezing) Qty: 6.7 0RF nicotine 7 mg/24 hr Patch 24 Hour 7 mg transdermal DAILY Qty: 30 0RF ferrous sulfate 324 mg (65 mg iron) Tablet,Delayed Release (Dr/Ec) 324 mg PO BEDTIME Qty: 30 0RF clonazepam 0.5 mg Tablet 0.5 mg PO TID Qty: 45 1RF gabapentin 400 mg Capsule 400 mg PO TID Qty: 90 0RF quetiapine 200 mg Tablet 200 mg PO BEDTIME Qty: 30 0RF hydroxyzine HCl 50 mg Tablet 50 mg PO Q4H PRN (Reason: Anxiety) Qty: 90 0RF naproxen 500 mg Tablet 500 mg PO BIDWM Qty: 60 0RF quetiapine 50 mg Tablet 50 mg PO BID PRN (Reason: voices, anxiety) Qty: 60 0RF topiramate 50 mg tablet 50 mg PO BEDTIME Qty: 30 0RF polyethylene glycol 3350 17 gram Powder In Packet 17 g PO DAILY Qty: 30 0RF sennosides-docusate sodium [Senna Plus] 8.6-50 mg Tablet 1 tab PO BID Qty: 60 0RF omeprazole 20 mg Capsule,Delayed Release(Dr/Ec) 20 mg PO DAILY@0630 Qty: 30 0RF zolpidem 5 mg Tablet 5 mg PO BEDTIME Qty: 30 0RF topiramate 50 mg tablet 50 mg PO BEDTIME Qty: 30 0RF albuterol sulfate 2.5 mg /3 mL (0.083 %) Solution For Nebulization 2.5 mg inhalation RQ4H WHILE AWAKE PRN (Reason: shortness of breath & wheezing) Qty: 75 0RF ammonium lactate 12 % Lotion 1 appl topical BID Qty: 225 0RF Protocol: Apply to: Apply to: feet prednisone 20 mg Tablet 40 mg PO DAILY Qty: 2 0RF Flovent Diskus 250 mcg/actuation Blister With Device 1 inh inhalation RBID Qty: 60 0RF ipratropium bromide 0.02 % Solution 0.5 mg inhalation RQ4H WHILE AWAKE PRN (Reason: shortness of breath & wheezing) Qty: 62.5 0RF lidocaine 5 % Ointment 1 appl topical Q6H PRN (Reason: Pain, Moderate (Pain Scale 4-6) Qty: 30 0RF Protocol: Apply to: Apply to: r knee Discontinued polyethylene glycol 3350 [Miralax] 17 gram/dose powder 17 g PO DAILY Qty: 510 0RF pantoprazole 40 mg tablet,delayed release (DR/EC) 1 tab PO QAM nicotine 21 mg/24 hr Patch 24 Hour 21 mg transdermal DAILY PRN (Reason: nicotine cravings) 28 Days Qty: 28 0RF atorvastatin 40 mg tablet 1 tab PO BEDTIME ferrous sulfate [FeroSul] 325 mg (65 mg iron) tablet 1 tab PO BEDTIME tamsulosin 0.4 mg capsule 1 cap PO DAILY fluticasone propionate [Flovent HFA] 220 mcg/actuation HFA aerosol inhaler 1 puff INHALATION BID albuterol sulfate [Ventolin HFA] 90 mcg/actuation HFA aerosol inhaler 2 puff INHALATION Q4-6H PRN (Reason: Shortness Of Breath Or Wheezing) verapamil 120 mg tablet extended release 1 tab PO DAILY hydroxyzine pamoate 100 mg capsule 100 mg PO BID venlafaxine 75 mg capsule,extended release 24hr 1 cap PO DAILY quetiapine 200 mg tablet 100 mg PO BID@0900,1200 quetiapine 100 mg tablet 500 mg PO BEDTIME mirtazapine 15 mg tablet 1 tab PO BEDTIME zolpidem 10 mg tablet 1 tab PO BEDTIME clonazepam 0.5 mg tablet 1 tab PO TID [id number]-wapjrzjsmwrmn-[id number] 50-325-40 mg tablet 1 tab PO Q6H PRN (Reason: Headache) baclofen 10 mg tablet 1 tab PO TID Discharge Orders: Discharge Order (Routine); Ordered 09/06/22 Ordered By: Jennifer Walker Diet: Regular diet Activity on Discharge: As tolerated Stand Alone Forms: Patient Portal Discharge page, Community Support Care Plan Goals: Maintain mood No SI/HI Health Concerns: Follow up with PCP Plan of Treatment: 1. Take medications as prescribed. 2. Go to nearest ED or call 911 in event of emergency Assessment: pt with bright affect. No SI/HI. Improved sleep. No VH/AH motivated to continue substance use treatment. Discharge Date/Time: 09/06/22 08:55
[2022-09-05] MEDS: Topiramate 25 MG TABLET PO (17:59)
--- NOTE | 2022-09-05 18:15 | PC.NURSE ---
Spoke w/ pt with mold blower present. Patient notified that a female patient reported that he had kissed her x2 on the cheek after giving her a bracelet he had made. Patient reported he just hugged her, he denied kissing her, reports he has a girlfriend and that he was just giving the female patient a bracelet. Patient asked not to go down the hallway where the other patient is staying, and told that he would be placed on 5 minute checks for the protection of both. Patient agreed to limits and to 5 minute checks. Provider and wastewater treatment supervisor notified. Patient started on Topirimate and educated on the medication.
[2022-09-05 20:15] VITALS: BP 136/80; PULSE 100; RESP 16; TEMP 36.8; O2SAT 96
[2022-09-05] MEDS: Atorvastatin Calcium 40 MG TABLET PO (21:16)
[2022-09-05] MEDS: Mirtazapine 30 MG TABLET PO (21:16)
[2022-09-05] MEDS: Zolpidem Tartrate 5 MG TABLET PO (21:17)
[2022-09-05] MEDS: QUEtiapine Fumarate 200 MG TABLET PO (21:18)
[2022-09-05] MEDS: Ferrous Sulfate 324 MG TABLET.DR PO (21:30)
[2022-09-06] MEDS: Albuterol Sulfate 90 MCG 8 GM INHALER 2 PUFF INHALE ×2 (04:41→08:24)
[2022-09-06] MEDS: QUEtiapine Fumarate 50 MG TABLET PO (04:49)
[2022-09-06] MEDS: Doxycycline Monohydrate 100 MG CAPSULE PO (05:31)
[2022-09-06] MEDS: Omeprazole 20 MG CAPSULE.DR PO (05:31)
[2022-09-06] MEDS: hydrOXYzine HCL 50 MG TABLET PO (06:43)
[2022-09-06 08:00] VITALS: BP 153/89; PULSE 109; RESP 18; TEMP 36.6; O2SAT 97
[2022-09-06] MEDS: Acetaminophen 325 MG TABLET 975 MG PO ×2 (08:19)
[2022-09-06] MEDS: Famotidine 20 MG TABLET PO (08:21)
[2022-09-06] MEDS: predniSONE 20 MG TABLET 40 MG PO (08:21)
[2022-09-06] MEDS: Gabapentin 400 MG CAPSULE PO (08:21)
[2022-09-06] MEDS: HaloperidoL 1 MG TABLET 2 MG PO (08:22)
[2022-09-06] MEDS: VerapamiL HCL SR 120 MG TABLET.ER PO (08:22)
[2022-09-06] MEDS: Tamsulosin HCL 0.4 MG CAPSULE PO (08:22)
[2022-09-06] MEDS: Sennosides/Docusate Sodium TABLET 1 TAB PO (08:23)
[2022-09-06] MEDS: clonazePAM 0.5 MG TABLET PO (08:23)
[2022-09-06] MEDS: Baclofen 20 MG TABLET PO (08:23)
[2022-09-06] MEDS: NaPROXEN 500 MG TABLET PO (08:25)
[2022-09-06] MEDS: Nicotine 7 MG PATCH.TD24 TRANSDERMA (08:25)
[2022-09-06] MEDS: polyethylene glycoL 3350 17 GM POWD.PACK PO (08:25)
[2022-09-06] MEDS: Fluticasone Propionate 250 MCG BLST.W.DEV 1 PUFF INHALE (08:26)
[2022-09-06] MEDS: Ammonium Lactate 12 % Lotion 226 GM BOTTLE 1 APPL TOPICAL (08:31)
--- NOTE | 2022-09-06 08:59 | PC.NURSE ---
Pt is ready and aware of discharge web site project manager present. Pt will be going to [facility] in [place], [place]. pt verbalized understanding of instructions and meds.
== END 2022-09-06 08:55 | disposition home or self-care (01) | DRG 751 ==
LOC: HO.ED 08-22 07:26 → HO.PADLT16 08-22 21:05
PROVIDERS: Clinical Nurse Specialist Psychiatric/Mental Health; Internal Medicine; Physician Assistant; Admitting Provider Psychiatry & Neurology Psychiatry; Emergency Provider Emergency Medicine Emergency Medical Services; Visit Provider Social Worker
DX: F33.1 Major depressive disorder, recurrent, moderate (principal); R45.851 Suicidal ideations; F12.20 Cannabis dependence, uncomplicated; F14.180 Cocaine abuse with cocaine-induced anxiety disorder; G47.33 Obstructive sleep apnea (adult) (pediatric); M17.11 Unilateral primary osteoarthritis, right knee; J43.9 Emphysema, unspecified; Z20.822 Contact with and (suspected) exposure to COVID-19; Z79.52 Long term (current) use of systemic steroids; Z88.0 Allergy status to penicillin; Z88.6 Allergy status to analgesic agent; Z79.899 Other long term (current) drug therapy
CPT/HCPCS: 36415; 71250; 73562; 80048; 80053; 80061; 80307; 81001; 81003; 82947; 84484; 85025; 85379; 85652; 86140; 87633; 87635; 90686; 93005; 93970; 99285; S9485

== ENCOUNTER 2022-10-03 17:26 | Emergency (ER) | payer OTHER, MEDICAID, SELFPAY ==
[2022-10-03 17:42] VITALS: BP 135/87; PULSE 87; RESP 16; TEMP 36.8; O2SAT 95; BMI 22.3
--- NOTE | 2022-10-03 17:49 | PC.NURSE ---
57 y/o M well known to [facility] from clinic on sec 12 with +SI with a plan to hang himself or shoot himself. pt also endorsing /, was recently discharged from in psych facility and states he already ran out of meds . pt is aox3, calm and cooperative, changed over to hospital attire, labs drawn and sent, awaiting provider
[2022-10-03 17:50] LABS: MANUAL DIFF FLAG NO
[2022-10-03 17:53] LABS: Basophils Absolute Auto 0.1 X10*3/uL (0.0-0.2); Basophils Percent Auto 1.1 % (0-2); Eosinophils Absolute Auto 0.2 X10*3/uL (0.0-0.4); Eosinophils Percent Auto 2.9 % (0-4); Hematocrit 40.2 % (42.0-52.0); Hemoglobin 13.2 g/dl (14.0-18.0); Imm Gran Abs Auto 0.04 X10*3/uL (0.00-0.03); Imm Gran Pct Auto 0.5 % (0.0-0.4); Lymphocytes Absolute Auto 2.4 X10*3/uL (1.2-4.9); Lymphocytes Percent Auto 29.4 % (20-40); Mean Corpuscular HGB Conc 32.8 g/dl (31.0-36.0); Mean Corpuscular Volume 88.4 fL (80.0-98.0); Mean Platelet Volume 8.3 fL (9.4-12.4); Monocytes Absolute Auto 0.7 X10*3/uL (0.1-1.2); Neutrophils Absolute Auto 4.7 x10*3/uL (2.0-8.3); Neutrophils Percent Auto 57.1 % (45-73); Platelet Count 448 X10*3/uL (160-400); Red Blood Count 4.55 X10*6/uL (4.60-5.80); Red Cell Distribution Width 14.2 % (11.0-16.0); White Blood Count 8.2 X10*3/uL (4.8-10.8)
--- NOTE | 2022-10-03 18:02 | ED_ITS ---
HPI - Psych General Chief Complaint: Psychiatric Symptoms Stated Complaint: +SI, AH,VH, from clinic Time Seen by Provider: 10/03/22 17:37 Source: patient Mode of arrival: EMS Limitations: no limitations History of Present Illness HPI Narrative: [facility]. Seems that patient was very emotional, started crying, stated that he wants to harm himself. 911 was called and brought to the emergency room for suicidal ideation. Patient states that he has been using drugs and contemplating to hang himself. Patient denies HI. Patient requesting to go to detox Related Data Previous Rx's Medication Instructions Recorded acetaminophen 325 mg tablet 975 mg PO TID #120 tabs 09/05/22 albuterol sulfate 2.5 mg/3 mL 2.5 mg (3 mL) inhalation RQ4H 09/05/22 (0.083 %) solution for nebulization WHILE AWAKE PRN shortness of breath & wheezing #75 mL albuterol sulfate 90 mcg/actuation 2 puff inhalation Q2H PRN 09/05/22 aerosol inhaler (Ventolin HFA) Shortness Of Breath Or Wheezing #6.7 grams ammonium lactate 12 % lotion 1 appl topical BID #225 grams 09/05/22 atorvastatin 40 mg tablet 40 mg PO BEDTIME #30 tabs 09/05/22 baclofen 20 mg tablet 20 mg PO TID #90 tabs 09/05/22 clonazepam 0.5 mg tablet 0.5 mg PO TID #45 tabs 09/05/22 doxycycline monohydrate 100 mg 100 mg PO Q12H #21 caps 09/05/22 capsule ferrous sulfate 324 mg (65 mg 324 mg PO BEDTIME #30 tabs 09/05/22 iron) tablet,delayed release fluticasone propionate 250 1 inh inhalation RBID #60 ea 09/05/22 mcg/actuation blister powder for inhalation (Flovent Diskus) gabapentin 400 mg capsule 400 mg PO TID #90 caps 09/05/22 hydroxyzine HCl 50 mg tablet 50 mg PO Q4H PRN Anxiety #90 tabs 09/05/22 ipratropium bromide 0.02 % 0.5 mg (2.5 mL) inhalation RQ4H 09/05/22 solution for inhalation WHILE AWAKE PRN shortness of breath & wheezing #62.5 mL lidocaine 5 % topical ointment 1 appl topical Q6H PRN Pain, 09/05/22 Moderate (Pain Scale 4-6 #30 grams mirtazapine 30 mg tablet 30 mg PO BEDTIME #30 tabs 09/05/22 naproxen 500 mg tablet 500 mg PO BIDWM #60 tabs 09/05/22 nicotine 7 mg/24 hr daily 7 mg transdermal DAILY #30 ea 09/05/22 transdermal patch omeprazole 20 mg capsule,delayed 20 mg PO DAILY@0630 #30 caps 09/05/22 release polyethylene glycol 3350 17 gram 17 g PO DAILY #30 ea 09/05/22 oral powder packet prednisone 20 mg tablet 40 mg PO DAILY #2 tabs 09/05/22 quetiapine 200 mg tablet 200 mg PO BEDTIME #30 tabs 09/05/22 quetiapine 50 mg tablet 50 mg PO BID PRN voices, anxiety 09/05/22 #60 tabs sennosides 8.6 mg-docusate sodium 1 tab PO BID #60 tabs 09/05/22 50 mg tablet (Senna Plus) tamsulosin 0.4 mg capsule 0.4 mg PO DAILY #30 caps 09/05/22 topiramate 50 mg tablet 50 mg PO BEDTIME #30 tabs 09/05/22 topiramate 50 mg tablet 50 mg PO BEDTIME #30 tabs 09/05/22 verapamil 120 mg tablet,extended 120 mg PO DAILY #30 tabs 09/05/22 release zolpidem 5 mg tablet 5 mg PO BEDTIME #30 tabs 09/05/22 Allergies Allergy/AdvReac Type Severity Reaction Status Date / Time ibuprofen Allergy Intermediate Stomach Verified 10/03/22 17:42 Upset penicillin V Allergy Intermediate rash Verified 10/03/22 17:42 Review of Systems Review of Systems: Constitutional : No Weight loss, No Fever, No Chills, No Night Sweats, No Fatigue, No Malaise ENT/Mouth : No Hearing loss, No Ear Pain, No Nasal Congestion, No Sinus Pain, No Hoarseness, No sore throat, No Rhinorrhea, No Swallowing Difficulty Eyes: No Eye Pain, No Swelling, No Redness, No Foreign Body, No Discharge, No Vision Changes Cardiovascular : No Chest Pain, No SOB, No Dyspnea on Exertion, No Orthopnea, No Edema, No Palpitations Respiratory : No Cough, No Sputum, No Wheezing, No Smoke Exposure, No Dyspnea Gastrointestinal : No Nausea, No Vomiting, No Diarrhea, No Constipation, No abdominal Pain, No Hematochezia, No Melena Genitourinary : no irregular bleeding, No Dysuria, No Urinary Frequency, No Hematuria, No Urinary Incontinence, No Urgency, No Flank Pain, No Urinary Flow Changes, No Hesitancy Musculoskeletal : No joint pain, No Myalgias, No Joint Swelling Skin : No Skin Lesions, No rash Neuro : No Weakness, No Numbness, No Paresthesias, No Loss of Consciousness, No Dizziness, No Headache Psych : Admits to drug abuse, complaining of SI, no HI Heme/Lymph: No Bruising, No Bleeding,No Lymphadenopathy Endocrine : No Polyuria, No Polydipsia, No Temperature Intolerance PMFSH Past Medical History Medical History Anxiety Asthma BPH (benign prostatic hyperplasia) Cannabis use disorder, moderate, dependence Cocaine use disorder Depression Emphysema of lung Nicotine dependence Pulmonary nodules Surgical History Hx of cholecystectomy Social History Social History Household Members: None Housing: Apartment Do you presently have visiting nurse or other home services: Yes Unable to assess alcohol history related to: Unknown Alcohol intake: former Patient Tobacco Use Status: Never used Tobacco Tobacco use type: Cigarette Cigarettes Per Day: 4 e-Cigarette/Vaping Use: Never Used Second Hand Smoke Exposure: No Substance Use Type: Crack/Cocaine, Hallucinogens, Marijuana and Other Advance Directives: No Advance Directives Information Provided: Yes service: No Sexual orientation: Straight/Heterosexual Physical Exam Vital Signs: Vital Signs: Last Vital Signs Temp 98.2 F 10/03/22 17:42 Pulse 87 10/03/22 17:42 Resp 16 10/03/22 17:42 BP 135/87 10/03/22 17:42 Pulse Ox 95 10/03/22 17:42 O2 Del Method 10/03/22 17:42 BMI result Body Mass Index 22.3 Const: Other: Appearance: Alert. Oriented X3. No acute distress. Eyes: Pupils equal, round and reactive to light. ENT: Pharynx normal. Neck: Normal inspection. Neck supple. No lymph nodes noted. No crepitus CVS: Normal heart rate and rhythm. Pulses normal. Normal S1 and S2 Respiratory: No respiratory distress. Breath sounds normal. No Wheezing. No rales Abdomen: Soft and nontender. No rigidity. No distention. Skin: Skin warm and dry. Normal skin color. Normal skin turgor. Extremities: No lower extremity edema. No Lacerations. No Rash Neuro: Oriented X 3. No motor deficit. No sensory deficit. Moving all extremities. No slurred speech. CN 2 through 12 grossly intact Psych: calm, cooperative, normal affect Course Course Course Narrative: -basic labs pending -care consult depending -physician observation started at 18:00 Medical Decision Making Lab Data 10/03/22 17:45 10/03/22 17:45 Labs: Lab Results 10/03/22 Range/Units 17:45 WBC 8.2 (4.8-10.8) X10*3/uL RBC 4.55 L (4.60-5.80) X10*6/uL Hgb 13.2 L (14.0-18.0) g/dl Hct 40.2 L (42.0-52.0) % MCV 88.4 (80.0-98.0) fL MCH 29.0 (27.0-33.0) pg MCHC 32.8 (31.0-36.0) g/dl RDW 14.2 (11.0-16.0) % Plt Count 448 H (160-400) X10*3/uL MPV 8.3 L (9.4-12.4) fL Immature Gran % (Auto) 0.5 H (0.0-0.4) % Neut % (Auto) 57.1 (45-73) % Lymph % (Auto) 29.4 (20-40) % [place] % (Auto) 9.0 (2-11) % Eos % (Auto) 2.9 (0-4) % Baso % (Auto) 1.1 (0-2) % Lymph # (Auto) 2.4 (1.2-4.9) X10*3/uL [place] # (Auto) 0.7 (0.1-1.2) X10*3/uL Eos # (Auto) 0.2 (0.0-0.4) X10*3/uL Baso # (Auto) 0.1 (0.0-0.2) X10*3/uL Abs Immat Gran (auto) 0.04 H (0.00-0.03) X10*3/uL Absolute Neuts (auto) 4.7 (2.0-8.3) x10*3/uL Absolute Nucleated RBC 0.000 (0.0-0.012) X10*3/uL Nucleated RBC % (auto) 0.0 (0.0-0.2) /100WBC Discharge Plan Discharge Clinical Impression: Polysubstance abuse, Suicidal ideation Patient Disposition: Still a Patient Prescriptions: No Action verapamil 120 mg Tablet Extended Release 120 mg PO DAILY Qty: 30 0RF Protocol: Hold for SBP/HR < HOLD for SBP < : 90 HOLD for HR < : 60 atorvastatin 40 mg Tablet 40 mg PO BEDTIME Qty: 30 0RF acetaminophen 325 mg Tablet 975 mg PO TID Qty: 120 0RF baclofen 20 mg Tablet 20 mg PO TID Qty: 90 0RF tamsulosin 0.4 mg Capsule 0.4 mg PO DAILY Qty: 30 0RF doxycycline monohydrate 100 mg Capsule 100 mg PO Q12H Qty: 21 0RF mirtazapine 30 mg Tablet 30 mg PO BEDTIME Qty: 30 0RF albuterol sulfate [Ventolin HFA] 90 mcg/actuation Hfa Aerosol Inhaler 2 puff inhalation Q2H PRN (Reason: Shortness Of Breath Or Wheezing) Qty: 6.7 0RF nicotine 7 mg/24 hr Patch 24 Hour 7 mg transdermal DAILY Qty: 30 0RF ferrous sulfate 324 mg (65 mg iron) Tablet,Delayed Release (Dr/Ec) 324 mg PO BEDTIME Qty: 30 0RF clonazepam 0.5 mg Tablet 0.5 mg PO TID Qty: 45 1RF gabapentin 400 mg Capsule 400 mg PO TID Qty: 90 0RF quetiapine 200 mg Tablet 200 mg PO BEDTIME Qty: 30 0RF hydroxyzine HCl 50 mg Tablet 50 mg PO Q4H PRN (Reason: Anxiety) Qty: 90 0RF naproxen 500 mg Tablet 500 mg PO BIDWM Qty: 60 0RF quetiapine 50 mg Tablet 50 mg PO BID PRN (Reason: voices, anxiety) Qty: 60 0RF topiramate 50 mg tablet 50 mg PO BEDTIME Qty: 30 0RF polyethylene glycol 3350 17 gram Powder In Packet 17 g PO DAILY Qty: 30 0RF sennosides-docusate sodium [Senna Plus] 8.6-50 mg Tablet 1 tab PO BID Qty: 60 0RF omeprazole 20 mg Capsule,Delayed Release(Dr/Ec) 20 mg PO DAILY@0630 Qty: 30 0RF zolpidem 5 mg Tablet 5 mg PO BEDTIME Qty: 30 0RF topiramate 50 mg tablet 50 mg PO BEDTIME Qty: 30 0RF albuterol sulfate 2.5 mg /3 mL (0.083 %) Solution For Nebulization 2.5 mg inhalation RQ4H WHILE AWAKE PRN (Reason: shortness of breath & wheezing) Qty: 75 0RF ammonium lactate 12 % Lotion 1 appl topical BID Qty: 225 0RF Protocol: Apply to: Apply to: feet prednisone 20 mg Tablet 40 mg PO DAILY Qty: 2 0RF Flovent Diskus 250 mcg/actuation Blister With Device 1 inh inhalation RBID Qty: 60 0RF ipratropium bromide 0.02 % Solution 0.5 mg inhalation RQ4H WHILE AWAKE PRN (Reason: shortness of breath & wheezing) Qty: 62.5 0RF lidocaine 5 % Ointment 1 appl topical Q6H PRN (Reason: Pain, Moderate (Pain Scale 4-6) Qty: 30 0RF Protocol: Apply to: Apply to: r knee Interventions: Maybee-Suicide Risk Severity Scale Last Done: 10/03/22 17:51
[2022-10-03 18:04] LABS: COVID-19 Test Negative (Negative); IDNOW Serial# BCCEAD1C
[2022-10-03 18:09] LABS: Alanine Aminotransferase 19 U/L (0-40); Albumin Level 4.1 g/dL (3.5-5.0); Alkaline Phosphatase 80 U/L (39-117); Anion Gap 12 (12-20); Aspartate Amino Transferase 16 U/L (5-37); Bilirubin Total 0.4 mg/dL (0.0-1.0); Blood Urea Nitrogen 13 mg/dL (9-16); Carbon Dioxide 25 mmol/L (22-29); Chloride 105 mmol/L (96-108); Creatinine Clr Calc Pharmacy 79.9; Estimated Glomerular Filt Rate > 60; Glucose Fasting 80 mg/dL (60-99); Potassium 4.3 mmol/L (3.3-5.1); Sodium 138 mmol/L (135-145); Total Protein 6.8 g/dL (6.5-8.0)
[2022-10-03 18:33] LABS: Amphetamine Screen Urine Not Detected (Not Detect); Barbiturates, Urine Not Detected (Not Detect); Benzodiazepines Screen Urine Not Detected (Not Detect); Cannabinoid Screen Urine POSITIVE (Not Detect); Cocaine Screen Urine POSITIVE (Not Detect); Fentanyl, urine Not Detected (Not Detect); Opiate Screen Urine Not Detected (Not Detect); Phencyclidine Screen Urine Not Detected (Not Detect)
[2022-10-03 18:40] LABS: Appearance Urine Clear; Color Urine Yellow; Glucose Urine UA Negative (Negative); Leukocyte Esterase Urine Negative (Negative); Nitrite Urine Negative (Negative); Urine Blood Negative (Negative); Urine Ketones Trace mg/dL (Negative); Urine Protein Negative (Neg-Trace)
[2022-10-03 18:46] LABS: Bacteria Urine None Seen (None Seen); Hyaline Casts Urine 0-2 /LPF (0-2); RBC Urine 0-2 /HPF (0-2); Squamous Epithelial Cell Urine 0-2 /HPF (0-2); WBC Urine 0-5 /HPF (0-5)
[2022-10-03] MEDS: Acetaminophen 325 MG TABLET 975 MG PO (21:59)
--- NOTE | 2022-10-04 | ECG_ITS ---
Test Reason : check QT Blood Pressure : / mmHG Vent. Rate : 075 BPM Atrial Rate : 075 BPM P-R Int : 150 ms QRS Dur : 096 ms QT Int : 386 ms P-R-T Axes : 080 010 079 degrees QTc Int : 431 ms Normal sinus rhythm Incomplete right bundle branch block Borderline ECG When compared with ECG of 04-SEP-2022 16:39, No significant change was found Referred By: Regino Ojeda Electronically Signed By:AKASH SUAREZ MD
[2022-10-04] MEDS: Atorvastatin Calcium 40 MG TABLET PO ×2 (00:38→22:23)
[2022-10-04] MEDS: Mirtazapine 15 MG TABLET PO ×2 (00:38→22:22)
[2022-10-04] MEDS: QUEtiapine Fumarate 200 MG TABLET PO ×2 (00:38→22:15)
[2022-10-04 01:04] VITALS: BP 111/70; PULSE 76; RESP 16; TEMP 37.1; O2SAT 96
--- NOTE | 2022-10-04 07:33 | PC.NURSE ---
patient appears to remain asleep at present respirations are even and unlabored patient erick[ears in no distress
--- NOTE | 2022-10-04 11:47 | PC.NURSE ---
assumed care of pt at 1100, pt sleeping, am medications held to allow pt to sleep.
[2022-10-04] MEDS: NaPROXEN 500 MG TABLET PO ×2 (11:56→17:46)
[2022-10-04] MEDS: VerapamiL HCL SR 120 MG TABLET.ER PO (11:57)
[2022-10-04] MEDS: Venlafaxine HCl ER 75 MG CAP.ER.24H PO (11:57)
[2022-10-04] MEDS: Tamsulosin HCL 0.4 MG CAPSULE PO (11:57)
[2022-10-04] MEDS: Nicotine 21 MG PATCH.TD24 TRANSDERMA (11:58)
[2022-10-04] MEDS: Acetaminophen 325 MG TABLET 975 MG PO ×2 (11:59→22:15)
[2022-10-04] MEDS: Omeprazole 20 MG CAPSULE.DR PO (11:59)
[2022-10-04] MEDS: Ferrous Sulfate 324 MG TABLET.DR PO (11:59)
--- NOTE | 2022-10-04 12:03 | PC.NURSE ---
pt awake, calm and cooperative, medicated per provider order.
[2022-10-04] MEDS: clonazePAM 0.5 MG TABLET PO ×2 (12:27→22:15)
--- NOTE | 2022-10-04 17:28 | MHC.RECOVRN ---
This junior technical writer met w/ patient w/ torch straightener. Reviewed that detox bedsearch was performed, there are no male detox beds at this time. Reviewed patient following up w/ Earnestine for Pat and Geophysical Manager. Patient states i'm gonig to kill myself if go home, i am not interested in recovery resources . Patient reports has Geophysical Manager in the community. CM aware.
--- NOTE | 2022-10-04 17:45 | MHC.CARE ---
Pt accepted to [facility] respite [facility] [address] for 9AM on 10/05/22.
[2022-10-04] MEDS: LORazepam 1 MG TABLET 2 MG PO (17:46)
--- NOTE | 2022-10-04 17:50 | PC.NURSE ---
medicated per provider order, pt reporting increased anxiety, plan to discharge to respite 10/05 at 0900.
[2022-10-04 20:06] VITALS: BP 98/69; PULSE 87; RESP 16; TEMP 37.3; O2SAT 96
[2022-10-04] MEDS: Fluticasone Propionate 250 MCG BLST.W.DEV 1 PUFF INHALE (22:13)
--- NOTE | 2022-10-05 06:04 | PC.NURSE ---
Patient slept through the night, no distress observed/reported, behavior non concerning, medication compliant, disposition per care team is respite bed search, VSS, will continue to monitor,.
[2022-10-05 06:08] VITALS: BP 90/58; PULSE 86; RESP 17; TEMP 36.6; O2SAT 97
--- NOTE | 2022-10-05 07:23 | PC.NURSE ---
patient appears to remain asleep at present respirations are even and unlabored patient appears in no distress.
[2022-10-05] MEDS: clonazePAM 0.5 MG TABLET PO (08:03)
[2022-10-05] MEDS: Acetaminophen 325 MG TABLET 975 MG PO (08:03)
[2022-10-05] MEDS: Omeprazole 20 MG CAPSULE.DR PO (08:03)
[2022-10-05] MEDS: Fluticasone Propionate 250 MCG BLST.W.DEV 1 PUFF INHALE (08:04)
[2022-10-05] MEDS: Ferrous Sulfate 324 MG TABLET.DR PO (08:04)
[2022-10-05] MEDS: Tamsulosin HCL 0.4 MG CAPSULE PO (08:05)
[2022-10-05] MEDS: NaPROXEN 500 MG TABLET PO (08:05)
== END 2022-10-05 08:16 | disposition home or self-care (01) ==
PROVIDERS: Emergency Provider Emergency Medicine
DX: R45.851 Suicidal ideations (principal); F19.10 Other psychoactive substance abuse, uncomplicated; Z20.822 Contact with and (suspected) exposure to COVID-19
CPT/HCPCS: 36415; 80053; 80307; 81001; 85025; 87635; 93005; 99285; S9485

== ENCOUNTER 2023-01-16 02:29 | Observation (INO) | payer MEDICAID, SELFPAY ==
[2023-01-16] VITALS (16 sets, daily range): BP systolic 109–138; BP diastolic 55–98; PULSE 70–111; RESP 15–22; TEMP 36.5–37; O2SAT 92–100; BMI 24.4
--- NOTE | 2023-01-16 03:01 | ED.ASTHMA ---
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 Patient is complaining of neck pain with coughing. Related Data Previous Rx's Medication Instructions Recorded acetaminophen 325 mg tablet 975 mg PO TID #120 tabs 10/04/22 albuterol sulfate 90 mcg/actuation 2 puff inhalation Q2H PRN 10/04/22 aerosol inhaler Shortness Of Breath Or Wheezing #6.7 grams atorvastatin 40 mg tablet 40 mg PO BEDTIME #30 tabs 10/04/22 clonazepam 0.5 mg tablet 0.5 mg PO BID #14 tabs 10/04/22 ferrous sulfate 324 mg (65 mg 324 mg PO DAILY #30 tabs 10/04/22 iron) tablet,delayed release fluticasone propionate 250 1 inh inhalation RBID #60 ea 10/04/22 mcg/actuation blister powder for inhalation (Flovent Diskus) mirtazapine 15 mg tablet 15 mg PO BEDTIME #30 tabs 10/04/22 naproxen 500 mg tablet 500 mg PO BIDWM #60 tabs 10/04/22 nicotine 21 mg/24 hr daily 21 mg transdermal DAILY #30 ea 10/04/22 transdermal patch omeprazole 20 mg capsule,delayed 20 mg PO DAILY #30 caps 10/04/22 release quetiapine 200 mg tablet 200 mg PO BEDTIME #30 tabs 10/04/22 tamsulosin 0.4 mg capsule 0.4 mg PO DAILY #30 caps 10/04/22 venlafaxine 75 mg capsule,extended 75 mg PO DAILY #30 caps 10/04/22 release 24 hr verapamil 120 mg tablet,extended 120 mg PO DAILY #30 tabs 10/04/22 release Allergies Allergy/AdvReac Type Severity Reaction Status Date / Time ibuprofen Allergy Intermediate Stomach Verified 10/03/22 17:42 Upset penicillin V Allergy Intermediate rash Verified 10/03/22 17:42 Review of Systems Review of Systems: All other systems are reviewed and are negative Constitutional: Reports as per HPI and Reports no additional constitutional complaints Eyes: Reports as per HPI and Reports no additional eye complaints Reports system reviewed and no additional complaints, except as documented Cardiovascular: Reports as per HPI and Reports no additional cardiovascular complaints Respiratory: Reports as per HPI and Reports no additional respiratory complaints Gastrointestinal: Reports as per HPI and Reports no additional gastrointestinal complaints Genitourinary: Reports no additional female genitourinary complaints Musculoskeletal: Reports no additional musculoskeletal complaints Skin/Breast: Reports system reviewed and no additional complaints, except as docu Psychiatric: Reports no additional psychiatric complaints Endocrine: Reports no additional endocrine complaints Hematologic/Lymphatic: Reports no additional hematologic/lymphatic complaints Allergic/Immunologic: Reports no additional allergic/immunologic complaints Reports system reviewed and no additional complaints, except as documented and Reports Abnormal speech present [facility] Past Medical History Medical History Anxiety Asthma BPH (benign prostatic hyperplasia) Cannabis use disorder, moderate, dependence Cocaine use disorder Depression Emphysema of lung Nicotine dependence Pulmonary nodules Surgical History Hx of cholecystectomy Social History Social History Household Members: None Housing: Apartment Do you presently have visiting nurse or other home services: Yes Unable to assess alcohol history related to: Unknown Alcohol intake: current Alcohol intake frequency: holidays/special occasions only Alcohol type: beer Patient Tobacco Use Status: Never used Tobacco Tobacco use type: Cigarette Cigarettes Per Day: 4 Smoked in Last 30 Days: Yes e-Cigarette/Vaping Use: Never Used Second Hand Smoke Exposure: No Use of substances other than those prescribed or required for medical reasons: No Substance Use Type: Crack/Cocaine, Hallucinogens, Marijuana and Other Any prior treatment program specific to substance use: No Advance Directives: No Advance Directives Information Provided: No service: No Sexual orientation: Straight/Heterosexual Physical Exam Vital Signs: Vital Signs: Last Vital Signs Temp 98.6 F 01/16/23 04:00 Pulse 70 01/16/23 04:00 Resp 19 01/16/23 04:00 BP 121/70 01/16/23 04:00 Pulse Ox 100 01/16/23 04:00 O2 Del Method Room Air 01/16/23 04:00 BMI result Body Mass Index 24.4 Vital signs have been reviewed as appeared to be correct. Blood pressure normal. Heart rate normal. Respiration rate normal. Temperature normal. Oxygen saturation normal. Appearance: Alert. Oriented X3. No acute distress. Head: Normal external exam. Normocephalic. Atraumatic. No Thrasher signs noted. No raccoon eyes noted Eyes: PERRLA. EOMI. Conjunctiva and sclera normal. Eyelids normal. ENT: TM's Normal. Pharynx normal. Uvula midline. Moist mucous membranes. No trismus noted. No drooling noted. No muffled voice noted. Neck: Normal inspection. Neck supple. FROM. No adenopathy. Thyroid Normal. No meningeal signs. No neck mass noted. CVS: Normal heart rate and rhythm. Heart sound normal. No murmurs noted. Pulses normal throughout. Respiratory: No respiratory distress. Painless inspiration. Breath sounds normal. Diffuse expiratory wheezing with prolonged expiration. Chest nontender. No accessory muscle usage noted or decreased air movement noted. Abdomen: Soft and nontender. Bowel sounds normal in all 4 quadrants. No distention noted. No organomegaly noted. No visible injury noted. Back: No CVA tenderness. Full range of motion noted. Skin: Skin warm and dry. Normal skin color. Normal skin turgor. No rashes/lesions/lacerations noted. Extremities: No lower extremity edema. Extremities exhibit normal range of motion. Extremities nontender. Neuro: Oriented X 3. Cranial nerve exam: II-XII are grossly intact No motor deficit. No sensory deficit. Reflexes normal. Course Course Course Narrative: Acute COPD exacerbation patient received bronchodilator, magnesium, Solu-Medrol was minimal improvement of the patient dyspnea will admit for further bronchodilator treatment. Medications Administered Discontinued Medications Generic Name Dose Route Start Last Admin Trade Name Freq PRN Reason Stop Dose Admin Acetaminophen 650 mg 01/16/23 04:02 01/16/23 04:21 Acetaminophen 325 Mg Tablet PO 01/16/23 04:03 650 mg ONCE ONE Administration Albuterol Sulfate 5 mg 01/16/23 02:59 01/16/23 03:11 Albuterol Sulfate (0.083%) 2.5 Mg/3 Ml Vial.Neb INHALE 01/16/23 03:00 5 mg ONCE ONE Administration Albuterol/Ipratropium 3 ml 01/16/23 02:59 01/16/23 03:11 Albuterol/Iprat 2.5/0.5mg 3 Ml Ampul.Neb INHALE 01/16/23 03:00 3 ml ONCE ONE Administration Magnesium Sulfate 2 gm in 50 mls @ 25 mls/hr 01/16/23 02:59 01/16/23 03:28 Magnesium Sulfate/H2o IV 01/16/23 04:58 25 mls/hr ONCE ONE Administration Methylprednisolone Sodium Succinate 125 mg 01/16/23 02:59 01/16/23 03:28 Methylprednisolone Sod Succ 125 Mg/2 Ml Vial IVPUSH 01/16/23 03:00 125 mg ONCE ONE Administration Medical Decision Making Differential Diagnosis Differential Diagnoses: The differential diagnosis associated with the presentation includes (COPD exacerbation, pneumonia, pneumothorax, pleural effusion, and fries abnormalities, severe anemia.) Admission/Observation Consideration of admission/observation: Escalation of care including admission/observation considered Consult Healthcare Provider Management of the patient was discussed with: Hospitalist (Dr Oden ) Lab Data MDM Lab Attestation statement: I reviewed the patient's lab results. 01/16/23 03:23 01/16/23 03:23 Labs: Lab Results 01/16/23 01/16/23 01/16/23 Range/Units 03:16 03:22 03:22 WBC (4.8-10.8) X10*3/uL RBC (4.60-5.80) X10*6/uL Hgb (14.0-18.0) g/dl Hct (42.0-52.0) % MCV (80.0-98.0) fL MCH (27.0-33.0) pg MCHC (31.0-36.0) g/dl RDW (11.0-16.0) % Plt Count (160-400) X10*3/uL MPV (9.4-12.4) fL Immature Gran % (Auto) (0.0-0.4) % Neut % (Auto) (45-73) % Lymph % (Auto) (20-40) % [place] % (Auto) (2-11) % Eos % (Auto) (0-4) % Baso % (Auto) (0-2) % Lymph # (Auto) (1.2-4.9) X10*3/uL [place] # (Auto) (0.1-1.2) X10*3/uL Eos # (Auto) (0.0-0.4) X10*3/uL Baso # (Auto) (0.0-0.2) X10*3/uL Abs Immat Gran (auto) (0.00-0.03) X10*3/uL Absolute Neuts (auto) (2.0-8.3) x10*3/uL Absolute Nucleated RBC (0.0-0.012) X10*3/uL Nucleated RBC % (auto) (0.0-0.2) /100WBC Sodium (135-145) mmol/L Potassium (3.3-5.1) mmol/L Chloride (96-108) mmol/L Carbon Dioxide (22-29) mmol/L Anion Gap (12-20) BUN (9-16) mg/dL Creatinine (0.5-1.4) mg/dL Estim Creat Clear Calc Estimated GFR Random Glucose (60-115) mg/dL Calcium (8.4-10.2) mg/dL Total Bilirubin (0.0-1.0) mg/dL Direct Bilirubin (0.0-0.5) mg/dL AST (5-37) U/L ALT (0-40) U/L Alkaline Phosphatase (39-117) U/L Troponin I High Sens < 2.7 (<3.5-35.0) ng/L B-Natriuretic Peptide < 10 (<100) pg/mL Total Protein (6.5-8.0) g/dL Albumin (3.5-5.0) g/dL Lipase (8-78) U/L COVID-19 ([facility]) Negative (Negative) COVID-19 Clin Com See Note 01/16/23 01/16/23 Range/Units 03:23 03:23 WBC 6.3 (4.8-10.8) X10*3/uL RBC 4.05 L (4.60-5.80) X10*6/uL Hgb 12.0 L (14.0-18.0) g/dl Hct 36.1 L (42.0-52.0) % MCV 89.1 (80.0-98.0) fL MCH 29.6 (27.0-33.0) pg MCHC 33.2 (31.0-36.0) g/dl RDW 14.5 (11.0-16.0) % Plt Count 290 D (160-400) X10*3/uL MPV 8.6 L (9.4-12.4) fL Immature Gran % (Auto) 0.2 (0.0-0.4) % Neut % (Auto) 41.8 L (45-73) % Lymph % (Auto) 46.2 H (20-40) % [place] % (Auto) 8.2 (2-11) % Eos % (Auto) 3.0 (0-4) % Baso % (Auto) 0.6 (0-2) % Lymph # (Auto) 2.9 (1.2-4.9) X10*3/uL [place] # (Auto) 0.5 (0.1-1.2) X10*3/uL Eos # (Auto) 0.2 (0.0-0.4) X10*3/uL Baso # (Auto) 0.0 (0.0-0.2) X10*3/uL Abs Immat Gran (auto) 0.01 (0.00-0.03) X10*3/uL Absolute Neuts (auto) 2.6 (2.0-8.3) x10*3/uL Absolute Nucleated RBC 0.000 (0.0-0.012) X10*3/uL Nucleated RBC % (auto) 0.0 (0.0-0.2) /100WBC Sodium 145 (135-145) mmol/L Potassium 4.0 (3.3-5.1) mmol/L Chloride 110 H (96-108) mmol/L Carbon Dioxide 27 (22-29) mmol/L Anion Gap 12 (12-20) BUN 10 (9-16) mg/dL Creatinine 1.03 (0.5-1.4) mg/dL Estim Creat Clear Calc 72.1 Estimated GFR > 60 Random Glucose 93 (60-115) mg/dL Calcium 9.0 (8.4-10.2) mg/dL Total Bilirubin 0.2 (0.0-1.0) mg/dL Direct Bilirubin < 0.2 (0.0-0.5) mg/dL AST 13 (5-37) U/L ALT 10 (0-40) U/L Alkaline Phosphatase 65 (39-117) U/L Troponin I High Sens (<3.5-35.0) ng/L B-Natriuretic Peptide (<100) pg/mL Total Protein 6.1 L (6.5-8.0) g/dL Albumin 3.5 (3.5-5.0) g/dL Lipase 26 (8-78) U/L COVID-19 ([facility]) (Negative) COVID-19 Clin Com Independent Interpretation I performed an independent interpretation of an: Plain X-Ray (chest: No acute intrathoracic pathology.) Radiology Impression Discussion of test interpretation with radiology: I have reviewed the radiologist's reading. Chronic Conditions Patient?s care impacted by: Other (COPD, smoking.) Discharge Plan Discharge Clinical Impression: Acute exacerbation of chronic obstructive pulmonary disease Patient Disposition: Admitted as Observation
[2023-01-16] MEDS: Albuterol/Iprat 2.5/0.5MG 3 ML AMPUL.NEB INHALE (03:11)
[2023-01-16] MEDS: Albuterol Sulfate (0.083%) 2.5 MG/3 ML VIAL.NEB 5 MG INHALE (03:11)
[2023-01-16] MEDS: methylPREDNISolone Sod Succ 125 MG/2 ML VIAL IVPUSH (03:28)
[2023-01-16] MEDS: Magnesium Sulfate/H2O 2 GM/50 ML PIGGYBACK IV (03:28)
[2023-01-16 03:29] LABS: MANUAL DIFF FLAG NO
[2023-01-16 03:30] LABS: Basophils Percent Auto 0.6 % (0-2); Eosinophils Absolute Auto 0.2 X10*3/uL (0.0-0.4); Hematocrit 36.1 % (42.0-52.0); Imm Gran Abs Auto 0.01 X10*3/uL (0.00-0.03); Imm Gran Pct Auto 0.2 % (0.0-0.4); Lymphocytes Absolute Auto 2.9 X10*3/uL (1.2-4.9); Lymphocytes Percent Auto 46.2 % (20-40); Mean Corpuscular HGB Conc 33.2 g/dl (31.0-36.0); Mean Corpuscular Hemoglobin 29.6 pg (27.0-33.0); Mean Corpuscular Volume 89.1 fL (80.0-98.0); Mean Platelet Volume 8.6 fL (9.4-12.4); Monocytes Absolute Auto 0.5 X10*3/uL (0.1-1.2); Monocytes Percent Auto 8.2 % (2-11); Neutrophils Absolute Auto 2.6 x10*3/uL (2.0-8.3); Neutrophils Percent Auto 41.8 % (45-73); Platelet Count 290 X10*3/uL (160-400); Red Blood Count 4.05 X10*6/uL (4.60-5.80); Red Cell Distribution Width 14.5 % (11.0-16.0); White Blood Count 6.3 X10*3/uL (4.8-10.8)
[2023-01-16 03:41] LABS: COVID-19 Test Negative (Negative); IDNOW Serial# 6674DD1D
[2023-01-16 03:44] LABS: Alanine Aminotransferase 10 U/L (0-40); Albumin Level 3.5 g/dL (3.5-5.0); Alkaline Phosphatase 65 U/L (39-117); Anion Gap 12 (12-20); Aspartate Amino Transferase 13 U/L (5-37); Bilirubin Direct < 0.2 mg/dL (0.0-0.5); Bilirubin Total 0.2 mg/dL (0.0-1.0); Blood Urea Nitrogen 10 mg/dL (9-16); Carbon Dioxide 27 mmol/L (22-29); Chloride 110 mmol/L (96-108); Creatinine Clr Calc Pharmacy 72.1; Estimated Glomerular Filt Rate > 60; Glucose Random 93 mg/dL (60-115); Lipase 26 U/L (8-78); Sodium 145 mmol/L (135-145); Total Protein 6.1 g/dL (6.5-8.0)
[2023-01-16 03:50] LABS: B Type Natriuretic Peptide < 10 pg/mL (<100)
[2023-01-16 03:53] LABS: Troponin-I High Sensitivity < 2.7 ng/L (<3.5-35.0)
[2023-01-16 05:40] LABS: Appearance Urine Clear; Color Urine Yellow; Glucose Urine UA Negative (Negative); Leukocyte Esterase Urine Negative (Negative); Nitrite Urine Negative (Negative); PH 5.5 (5.0-9.0); UMIC TRIGGER UACC YES; Urine Blood Trace (Negative); Urine Ketones Trace mg/dL (Negative); Urine Protein Negative (Neg-Trace)
[2023-01-16 05:45] LABS: Bacteria Urine None Seen (None Seen); Hyaline Casts Urine 0-2 /LPF (0-2); Squamous Epithelial Cell Urine 0-2 /HPF (0-2); WBC Urine 0-5 /HPF (0-5)
--- NOTE | 2023-01-16 05:48 | PM.IMHP ---
History of Present Illness Date of Service: 01/16/23 Chief Complaint: Shortness of breath [place]ambican-speaking only, history is obtained with the help of an manager rn 57-year-old male with past medical history of COPD, JERRY, cocaine use disorder, BPH, depression anxiety, comes into the hospital with complaints of shortness of breath, cough and sputum production. Patient reports his last cocaine use was 4 days ago. He started having shortness of breath and cough 2 days ago, denies any fever has chills, no chest pain, has chest tightness when he coughs, no abdominal pain nausea or vomiting, has diarrhea x3 daily for the past 2 days Has some urinary burning when he pees, no lower extremity edema On arrival to the ED patient hemodynamically stable Labs are significant for WBC count of 6.3, labs otherwise unremarkable Review of Systems Review of Systems: Yes all other systems are reviewed and are negative [facility] Medical History Anxiety Asthma BPH (benign prostatic hyperplasia) Cannabis use disorder, moderate, dependence Cocaine use disorder Depression Emphysema of lung Nicotine dependence Pulmonary nodules Surgical History Hx of cholecystectomy Social History Household Members: None Housing: Apartment Do you presently have visiting nurse or other home services: Yes Unable to assess alcohol history related to: Unknown Alcohol intake: current Alcohol intake frequency: holidays/special occasions only Alcohol type: beer Patient Tobacco Use Status: Never used Tobacco Tobacco use type: Cigarette Cigarettes Per Day: 4 Smoked in Last 30 Days: Yes e-Cigarette/Vaping Use: Never Used Second Hand Smoke Exposure: No Use of substances other than those prescribed or required for medical reasons: No Substance Use Type: Crack/Cocaine, Hallucinogens, Marijuana and Other Any prior treatment program specific to substance use: No Advance Directives: No Advance Directives Information Provided: No service: No Sexual orientation: Straight/Heterosexual Meds Allergies Allergy/AdvReac Type Severity Reaction Status Date / Time ibuprofen Allergy Intermediate Stomach Verified 10/03/22 17:42 Upset penicillin V Allergy Intermediate rash Verified 10/03/22 17:42 Active Medications: Current Medications Acetaminophen (Acetaminophen 325 Mg Tablet) 650 mg PO Q6H PRN PRN Reason: Pain, Mild (Pain Scale 1-3) Albuterol/Ipratropium (Albuterol/Iprat 2.5/0.5mg 3 Ml Ampul.Neb) 3 ml INHALE RQ4H PRN PRN Reason: Shortness of Breath/Wheezing Albuterol/Ipratropium (Albuterol/Iprat 2.5/0.5mg 3 Ml Ampul.Neb) 3 ml INHALE RQ4H WHILE AWAKE ADRIEN Docusate Sodium (Docusate Sodium 100 Mg Capsule) 100 mg PO DAILY PRN PRN Reason: Constipation Methylprednisolone Sodium Succinate (Methylprednisolone Sod Succ 40 Mg/Ml Vial) 40 mg IVPUSH 0600,1800 ADRIEN Ondansetron HCl (Ondansetron Hcl 4 Mg/2 Ml Vial) 4 mg IVPUSH Q8H PRN PRN Reason: Nausea and Vomiting Sodium Chloride (0.9 % Sodium Chloride Flush 3 Ml Syringe) 3 ml IVFLUSH QSHIFT ADRIEN Physical Exam Vital Signs and Narrative: Vital Signs: Last Vital Signs Temp 98.6 F 01/16/23 04:00 Pulse 70 01/16/23 04:00 Resp 19 01/16/23 04:00 BP 121/70 01/16/23 04:00 Pulse Ox 100 01/16/23 04:00 O2 Del Method Room Air 01/16/23 04:00 BMI result Body Mass Index 24.4 Const: General: cooperative and no acute distress Orientation/consciousness: patient oriented x3 Eyes: General: appearance normal, both eyes and all related structures Pupils: Equal, round and reactive pupils present Resp: Other: Decreased breath sounds Effort & Inspection: normal respiratory effort Cardio: Rate: regular rate Rhythm: regular rhythm GI: Palpation (GI): Soft to palpation Auscultation: normal bowel sounds Skin: General skin exam: no rashes or lesions noted Neuro: General: patient oriented x3 Cranial nerves: Yes Equal, round and reactive pupils present Cognition (Neuro): normal cognition Extrem: General: Yes normal to inspection and Yes no pedal edema Results Labs 01/16/23 05:12 01/16/23 03:23 Labs: Laboratory Results - last 24 hr 01/16/23 01/16/23 01/16/23 03:16 03:22 03:22 MCV MCH MCHC RDW Plt Count MPV Immature Gran % (Auto) Neut % (Auto) Lymph % (Auto) [place] % (Auto) Eos % (Auto) Baso % (Auto) Lymph # (Auto) [place] # (Auto) Eos # (Auto) Baso # (Auto) Abs Immat Gran (auto) Absolute Neuts (auto) Absolute Nucleated RBC Nucleated RBC % (auto) Anion Gap Estim Creat Clear Calc Estimated GFR Random Glucose Calcium Total Bilirubin Direct Bilirubin AST ALT Alkaline Phosphatase Troponin I High Sens < 2.7 B-Natriuretic Peptide < 10 Total Protein Albumin Lipase Urine Color Urine Appearance Urine pH Ur Specific [place] Urine Protein Urine Glucose (UA) Urine Ketones Urine Blood Urine Nitrite Ur Leukocyte Esterase COVID-19 ([facility]) Negative COVID-19 Clin Com See Note 01/16/23 01/16/23 01/16/23 03: 03:23 05:12 MCV 89.1 MCH 29.6 MCHC 33.2 RDW 14.5 Plt Count 290 D MPV 8.6 L Immature Gran % (Auto) 0.2 Neut % (Auto) 41.8 L Lymph % (Auto) 46.2 H [place] % (Auto) 8.2 Eos % (Auto) 3.0 Baso % (Auto) 0.6 Lymph # (Auto) 2.9 [place] # (Auto) 0.5 Eos # (Auto) 0.2 Baso # (Auto) 0.0 Abs Immat Gran (auto) 0.01 Absolute Neuts (auto) 2.6 Absolute Nucleated RBC 0.000 Nucleated RBC % (auto) 0.0 Anion Gap 12 Estim Creat Clear Calc 72.1 Estimated GFR > 60 Random Glucose 93 Calcium 9.0 Total Bilirubin 0.2 Direct Bilirubin < 0.2 AST 13 ALT 10 Alkaline Phosphatase 65 Troponin I High Sens B-Natriuretic Peptide Total Protein 6.1 L Albumin 3.5 Lipase 26 Urine Color Yellow Urine Appearance Clear Urine pH 5.5 Ur Specific [place] 1.020 Urine Protein Negative Urine Glucose (UA) Negative Urine Ketones Trace Urine Blood Trace H Urine Nitrite Negative Ur Leukocyte Esterase Negative COVID-19 ([facility]) COVID-19 Clin Com 01/16/23 05:12 MCV 91.1 MCH 30.5 MCHC 33.5 RDW 14.6 Plt Count 293 MPV 9.3 L Immature Gran % (Auto) 0.4 Neut % (Auto) 77.4 H Lymph % (Auto) 17.2 L [place] % (Auto) 2.9 Eos % (Auto) 1.3 Baso % (Auto) 0.8 Lymph # (Auto) 1.3 [place] # (Auto) 0.2 Eos # (Auto) 0.1 Baso # (Auto) 0.1 Abs Immat Gran (auto) 0.03 Absolute Neuts (auto) 5.8 Absolute Nucleated RBC 0.000 Nucleated RBC % (auto) 0.0 Anion Gap Estim Creat Clear Calc Estimated GFR Random Glucose Calcium Total Bilirubin Direct Bilirubin AST ALT Alkaline Phosphatase Troponin I High Sens B-Natriuretic Peptide Total Protein Albumin Lipase Urine Color Urine Appearance Urine pH Ur Specific [place] Urine Protein Urine Glucose (UA) Urine Ketones Urine Blood Urine Nitrite Ur Leukocyte Esterase COVID-19 ([facility]) COVID-19 Clin Com Imaging Radiologist's Impressions: Impressions Chest X-Ray 01/16/23 03:08 IMPRESSION: No acute cardiopulmonary findings. Hyperinflated lungs suspicious for COPD. Assessment and Plan (1) Acute exacerbation of chronic obstructive pulmonary disease: Status: Acute Plan 57-year-old male past medical history of COPD presents the hospital with complaints of shortness of breath, as well as cough will be admitted for management of COPD # acute COPD exacerbation - likely exacerbated by cocaine use - has dyspnea, increased cough, sputum production, - will treat with IV Solu-Medrol, DuoNeb p.r.n. and scheduled - monitor respiratory status # depression anxiety - continue home medications DVT prophylaxis: Early ambulation Time Spent With Patient Time: Total time managing care of this patient today ____ minutes. Quality Stroke Does the patient have a stroke diagnosis?: No VTE Prior VTE?: No VTE Risk Level:: Medical - low VTE Device Contraindication: Treatment Not Tolerated VTE Drug Contraindication: Treatment Not Indicated
--- NOTE | 2023-01-16 06:34 | PC.NURSE ---
report was attempted to be given on [facility] 3 rd floor. Nurse was not able to get on to the phone to get report.
--- NOTE | 2023-01-16 07:29 | PHA.MEDREC ---
Pharmacy Consult ? Medication Reconciliation Pharmacy has reviewed the medication reconciliation done by RN.
--- NOTE | 2023-01-16 10:59 | MHC.CM.PN ---
[facility] DELIVERED INTAKE CONDUCTED WITH DIRECTOR WOMEN. PT LIVES ALONE IN AN APT WITH SMALL DOG. 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 REFERRAL TO [facility] MADE FOR EVAL. THRIVE ASSESSMENT +, RESOURCE GUIDE PROVIDED. +HCP (COMPLETED AND ON CHART) + COVID VAX X3 PCP DR. LEON AT [facility]. DP: HOME, [facility] REFERRAL SENT. WILL NEED A RIDE HOME VIA [facility] SHUTTLE OR LYFT. CM WILL CONTINUE TO FOLLOW FOR DC NEEDS/PLAN.
--- NOTE | 2023-01-16 17:51 | PM.EVENT ---
Event Note Date of Service: 01/16/23 Event Note: Patient admitted for COPD exacerbation also cocaine positive. Patient says that he wants to go to drug rehab-explained to him in detail but he keeps insisting that he wants to go drug use have so seen by addiction-information given to him. Subsequently patient started to complaining of chest pain, says sharp type does not able to give details even with the finger lift operator His shortness of breath seems much better than before, walking of oxygen plan: Monitor on tele Get EKG, troponin Further course depend upon the result above above test-may need Cardiology if new changes. Time Spent With Patient Time: Total time managing care of this patient today ____ minutes.
[2023-01-17 03:54] VITALS: BP 132/78; PULSE 90; RESP 16; TEMP 36.1; O2SAT 95
[2023-01-17 06:00] VITALS: BMI 21.4
[2023-01-17 07:51] VITALS: BP 121/75; PULSE 98; RESP 20; TEMP 37.2; O2SAT 95
[2023-01-17 07:52] VITALS: PULSE 98; RESP 16; O2SAT 95
--- NOTE | 2023-01-17 11:12 | PM.DS ---
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 Patient reports his last cocaine use was 4 days ago.? He started having shortness of breath and cough 2 days ago, denies any fever has chills, no chest pain, has chest tightness when he coughs, no abdominal pain nausea or vomiting, has diarrhea x3 daily for the past 2 days Has some urinary burning when he pees, no lower extremity edema On arrival to the ED patient hemodynamically stable Labs are significant for WBC count of 6.3, labs otherwise unremarkable Hospital course: Patient presented with shortness of breath and found to have acute exacerbation of copd and treated with bronchodilators by Neb, IV steroid and overaall is improved and will discharged with oral steroid and inhalers by MDI Time Spent with Patient Time attestation: Total time managing care of this patient today ____ minutes. Discharge coordination time: Greater than 30 minutes Quality: Safe Use of Opioids Does Pt have an Active Cancer Diagnosis on the Problem List?: No Quality: Stroke Does the patient have a stroke diagnosis?: No Physical Exam Vital Signs: Vital Signs: Last Vital Signs Temp 98.9 F 01/17/23 07:51 Pulse 98 01/17/23 07:52 Resp 16 01/17/23 07:52 BP 121/75 01/17/23 07:51 Pulse Ox 95 01/17/23 07:51 O2 Del Method Room Air 01/17/23 07:51 BMI result Body Mass Index 21.4 DS: Data Data Completed and Pending Labs on day of discharge: Laboratory Results - last 24 hr 01/16/23 18:25 Troponin I High Sens < 2.7 Discharge Plan Discharge Anticipated Discharge Date/Time: 01/16/23 13:06 Patient Disposition: Home, Self-Care Discharge Diagnosis: COPD exacerbation Referrals: Vince Doran MD [Primary Care Provider] - 1 Week Discharge Medications: New prednisone 20 mg tablet 40 mg PO DAILY Qty: 6 0RF Continued verapamil 120 mg Tablet Extended Release 120 mg PO DAILY Qty: 30 0RF Protocol: Hold for SBP/HR < HOLD for SBP < : 90 HOLD for HR < : 60 atorvastatin 40 mg Tablet 40 mg PO BEDTIME Qty: 30 0RF acetaminophen 325 mg Tablet 975 mg PO TID Qty: 120 0RF tamsulosin 0.4 mg Capsule 0.4 mg PO DAILY Qty: 30 0RF nicotine 21 mg/24 hr Patch 24 Hour 21 mg transdermal DAILY Qty: 30 0RF albuterol sulfate 90 mcg/actuation Hfa Aerosol Inhaler 2 puff inhalation Q2H PRN (Reason: Shortness Of Breath Or Wheezing) Qty: 6.7 0RF ferrous sulfate 324 mg (65 mg iron) Tablet,Delayed Release (Dr/Ec) 324 mg PO DAILY Qty: 30 0RF venlafaxine 75 mg Capsule,Extended Release 24hr 75 mg PO DAILY Qty: 30 0RF clonazepam 0.5 mg Tablet 0.5 mg PO BID Qty: 14 1RF mirtazapine 15 mg Tablet 15 mg PO BEDTIME Qty: 30 0RF naproxen 500 mg Tablet 500 mg PO BIDWM Qty: 60 0RF pantoprazole 40 mg tablet,delayed release (DR/EC) 40 mg PO QAM fluticasone propionate [Flovent HFA] 220 mcg/actuation HFA aerosol inhaler 2 puff INHALATION BID zolpidem 10 mg tablet 10 mg PO BEDTIME PRN (Reason: insomnia) quetiapine 400 mg tablet 400 mg PO BEDTIME quetiapine 200 mg tablet 100 mg PO BID Discharge Orders: Discharge Order (Routine); Ordered 01/17/23 Ordered By: Atilio Cox Diet: Advance to usual diet Activity on Discharge: As tolerated Stand Alone Forms: Patient Portal Discharge page Care Plan Goals: Patient was admitted for COPD exacerbation-given nebs, steroids-seems to be improved significantly , take Prednisone as recommended Cocaine use: Patient was strongly advised to abstain from cocaine use, seen by addiction- Follow up with your Doctor in a week, call for appointment Health Concerns: As above. Plan of Treatment: As above. Assessment: As above. Patient Instructions: COPD (Chronic Obstructive Pulmonary Disease) (DC) Discharge Date/Time: 01/17/23 13:54
[2023-01-17 11:15] VITALS: BP 105/68; PULSE 104; RESP 18; TEMP 36.8; O2SAT 97
[2023-01-17 11:24] VITALS: PULSE 107; RESP 18; O2SAT 97
== END 2023-01-17 13:54 | disposition home or self-care (01) ==
LOC: HO.ED 05:07 → HO.EDOVER 05:09 → HO.S3 05:44 → HO.IMC 07:11
PROVIDERS: Admitting Provider Internal Medicine; Emergency Provider Emergency Medicine; PCP Internal Medicine; Visit Provider Internal Medicine
DX: J44.1 Chronic obstructive pulmonary disease with (acute) exacerbation (principal); R06.02 Shortness of breath; Z20.822 Contact with and (suspected) exposure to COVID-19; F12.29 Cannabis dependence with unspecified cannabis-induced disorder; F17.210 Nicotine dependence, cigarettes, uncomplicated; Z79.899 Other long term (current) drug therapy; Z79.02 Long term (current) use of antithrombotics/antiplatelets
CPT/HCPCS: 36415; 71045; 80048; 80076; 81001; 83690; 83880; 84484; 85025; 87635; 93005; 94640; 96365; 96366; 96375; 96376; 99222; 99285; J2920; J2930; J3475

== ENCOUNTER 2023-02-13 01:43 | Inpatient (IN) | payer OTHER, SELFPAY ==
--- NOTE | 2023-02-13 | ECG_ITS ---
Test Reason : CHEST PAIN Blood Pressure : / mmHG Vent. Rate : 113 BPM Atrial Rate : 113 BPM P-R Int : 152 ms QRS Dur : 098 ms QT Int : 338 ms P-R-T Axes : 086 063 088 degrees QTc Int : 463 ms Sinus tachycardia Right atrial enlargement Incomplete right bundle branch block Nonspecific T wave abnormality Abnormal ECG When compared with ECG of 16-JAN-2023 18:36, No significant change was found Referred By: Generic ED Physician Electronically Signed By:FREDI LACKEY
--- NOTE | ~2023-02-13 | CT_ITS ---
EXAMINATION: CT ABDOMEN AND PELVIS WITHOUT CONTRAST CLINICAL INFORMATION: Question kidney stones. COMPARISON: CT abdomen of 04/06/2022. TECHNIQUE: Multidetector volumetric imaging was performed from the superior aspect of the liver through the pubic symphysis. Sagittal and coronal reformatted images were obtained on the technologist's workstation. This CT examination was performed using dose optimization techniques as appropriate, variously including the following: *Automated exposure control *Adjustment of mA and/or kV according to patient size (this includes techniques or standardized protocols for targeted exams where dose is matched to indication/reason for exam; i.e. extremities or head) *Use of iterative reconstruction technique DLP: 290 mGy-cm FINDINGS: LUNG BASES: There are changes of centrilobular emphysema seen in the lower lobes bilaterally. There is some bronchial wall thickening noted. No confluent parenchymal disease is seen. No pleural or pericardial effusion. LIVER, GALLBLADDER, AND BILIARY TREE: The liver is normal in size, shape, and attenuation. No focal solid hepatic lesion or biliary ductal dilatation is present. There is a subcentimeter cyst seen at the dome of the liver. Status post cholecystectomy. PANCREAS: No abnormal mass or pancreatic inflammatory change are seen. SPLEEN: Unremarkable. ADRENAL GLANDS: Unremarkable. KIDNEYS AND URETERS: RIGHT KIDNEY: No hydronephrosis. No suspicious solid mass. There is an interpolar minimally complex 2.1 x 2.2 cm cyst. This has the appearance of a Bosniak II cyst which does not require followup. Within the upper pole there is a conglomerate of 3 adjacent nonobstructing calculi measuring approximately 7 x 4 mm in size with density measurement of approximately 860 Hounsfield units. This lies approximately 5.5 cm from the posterior mid axillary line. There is a 2 mm upper pole nonobstructing calculus. There is a 4 mm interpolar nonobstructing calculus. There is a 2 mm interpolar nonobstructing calculus. There is a 3 mm lower pole nonobstructing calculus. The visualized portions of the ureter are unremarkable. LEFT KIDNEY: No hydronephrosis or suspicious solid renal masses. There is a 2 cm simple cyst within the mid to upper pole which does not require followup. Within the upper pole there are a 5 mm and a 2 mm nonobstructing calculi. Within the interpolar region there are a 4 mm nonobstructing calculus, a 3 mm nonobstructing calculus, and a 2 mm nonobstructing calculus. Within the lower pole there are 3 nonobstructing 2 mm calculi. The visualized portions of the left ureter appear unremarkable. BLADDER: There appears be some bladder wall thickening which may be related to partially collapsed state. There is prominent prostate gland impression from median lobe of the prostate gland. No bladder calculi identified. GASTROINTESTINAL TRACT: No large or small bowel dilatation is appreciated. No free air or free fluid. There is a moderate to large colonic stool burden present without dilatation. No pericolonic inflammatory change is seen. The appendix appears unremarkable. ABDOMINAL WALL: No significant hernia is appreciated. LYMPH NODES: No lymphadenopathy identified. VASCULAR: There is mild calcified arterial plaque seen within the infrarenal abdominal aorta without evidence of aneurysmal dilatation. PELVIC VISCERA: Prostate gland is enlarged and contains some calcification. OSSEOUS STRUCTURES: No abnormal suspicious bony abnormalities identified. There is some degenerative disc disease with facet arthropathy seen at the L5-S1 level bilaterally. CT/CT abdomen pelvis wo IV con IMPRESSION: There is a similar bilateral renal stone burden without evidence of obstructive uropathy compared to previous study of 04/06/2022. Fleischner guidelines were followed.
[2023-02-13 01:47] VITALS: BP 110/70; BP 125/71; PULSE 113; PULSE 68; RESP 19; TEMP 36.7; O2SAT 96; BMI 22.3
[2023-02-13 01:55] VITALS: PULSE 106
--- NOTE | 2023-02-13 02:08 | PC.NURSE ---
Assumed care of pt. 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 fingerer aware.
[2023-02-13 02:09] LABS: Hematocrit 35.4 % (42.0-52.0); Hemoglobin 11.9 g/dl (14.0-18.0); Mean Corpuscular HGB Conc 33.6 g/dl (31.0-36.0); Mean Corpuscular Hemoglobin 29.8 pg (27.0-33.0); Mean Corpuscular Volume 88.7 fL (80.0-98.0); Mean Platelet Volume 8.5 fL (9.4-12.4); Platelet Count 385 X10*3/uL (160-400); Red Blood Count 3.99 X10*6/uL (4.60-5.80); Red Cell Distribution Width 14.2 % (11.0-16.0); White Blood Count 7.4 X10*3/uL (4.8-10.8)
--- NOTE | 2023-02-13 02:11 | PC.NURSE ---
cover cutter performed by security and ultrasound tech. pt has home medications, no controlled substances, with him.
[2023-02-13 02:24] LABS: Alanine Aminotransferase 14 U/L (0-40); Albumin Level 3.8 g/dL (3.5-5.0); Alkaline Phosphatase 90 U/L (39-117); Anion Gap 19 (12-20); Aspartate Amino Transferase 19 U/L (5-37); Bilirubin Total 0.4 mg/dL (0.0-1.0); Blood Urea Nitrogen 9 mg/dL (9-16); Calcium 9.3 mg/dL (8.4-10.2); Carbon Dioxide 19 mmol/L (22-29); Chloride 107 mmol/L (96-108); Creatinine Clr Calc Pharmacy 86.1; Estimated Glomerular Filt Rate > 60; Glucose Random 104 mg/dL (60-115); Potassium 3.4 mmol/L (3.3-5.1); Sodium 142 mmol/L (135-145); Total Protein 6.8 g/dL (6.5-8.0)
[2023-02-13 02:27] LABS: Ethanol < 10 mg/dL
[2023-02-13 02:27] LABS: Appearance Urine Clear; Color Urine Yellow; Glucose Urine UA Negative (Negative); Leukocyte Esterase Urine Small (1+) (Negative); Nitrite Urine Negative (Negative); UMIC TRIGGER UACC YES; Urine Blood Negative (Negative); Urine Ketones 40 mg/dL (Negative); Urine Protein Trace mg/dL (Neg-Trace)
--- NOTE | 2023-02-13 02:31 | MHC.EDTECH ---
PATIENT WAS CHANGED OVER INTO BEHAVIORAL ATTIRE. ITEMS ARE LOCKED IN THE ED BEHAVIORAL POD LOCKER 10
[2023-02-13 02:36] LABS: Amphetamine Screen Urine Not Detected (Not Detect); Barbiturates, Urine Not Detected (Not Detect); Benzodiazepines Screen Urine Not Detected (Not Detect); Cannabinoid Screen Urine POSITIVE (Not Detect); Cocaine Screen Urine POSITIVE (Not Detect); Fentanyl, urine Not Detected (Not Detect); Opiate Screen Urine Not Detected (Not Detect); Phencyclidine Screen Urine Not Detected (Not Detect)
[2023-02-13 02:39] LABS: Bacteria Urine Trace (None Seen); UACC Culture Trigger YES
[2023-02-13 05:19] VITALS: BP 107/65; PULSE 89; RESP 17; TEMP 36.7; O2SAT 96
--- NOTE | 2023-02-13 06:35 | ED_ITS ---
HPI - Chest Pain General Chief Complaint: Chest Pain Stated Complaint: multiple Time Seen by Provider: 02/13/23 06:31 Source: patient, EMS and old records reviewed Mode of arrival: EMS Limitations: no limitations History of Present Illness HPI narrative: 57 yo male with history of COPD, depression, JERRY, cocaine and cannabid use disorder who presents to the ER from home via EMS for evaluation of not feeling well for the last 5 days. He states he is going through a divorce with his and is very stressed and depressed at home. He has not been eating much at all, no appetite. He admits to using cocaine. He reports chest pain, abdominal pain and headache that started yesterday. He states the chest pain is central, constant, nonradiating and feels stabbing in nature. He continues to smoke cigarettes and says he is SOB at times as well due to his COPD. His abdominal pain is an ache and diffuse. No N/V/D. He states he started to get suicidal ideation yesterday. He was going to try to hang himself and choke himself but he couldn't get himself to do it. He states a few years ago he overdosed on his mother's cardiac medications. He states he has been compliant with his depression meds and is waiting to get a psychologist and therapist. MD complaint: chest pain and other (abd pain, headache and SI) Pertinent past history: other (COPD) Onset (ago): day(s) Timing of current episode: constant Prior episodes: Yes Onset: during rest Pain location: substernal Pain radiation: none Severity: moderate Quality: other (stabbing) Relieving factors: nothing Exacerbating factors: stress Treatment prior to arrival: none Risk Factors Coronary artery disease risk factors: cocaine use Related Data Home Medications Medication Instructions Recorded Confirmed fluticasone propionate 220 2 puff inhalation BID 01/16/23 02/13/23 mcg/actuation HFA aerosol inhaler (Flovent HFA) pantoprazole 40 mg tablet,delayed 40 mg PO QAM 01/16/23 02/13/23 release quetiapine 200 mg tablet 100 mg PO BID 01/16/23 02/13/23 quetiapine 400 mg tablet 400 mg PO BEDTIME 01/16/23 02/13/23 zolpidem 10 mg tablet 10 mg PO BEDTIME 01/16/23 02/13/23 albuterol sulfate 90 mcg/actuation 2 puff inhalation Q4-6H PRN 02/13/23 02/13/23 aerosol inhaler Shortness Of Breath Or Wheezing ferrous sulfate 325 mg (65 mg 325 mg PO BEDTIME 02/13/23 02/13/23 iron) tablet (FeroSul) ipratropium 0.5 mg-albuterol 3 mg 3 ml inhalation TID PRN wheezing 02/13/23 02/13/23 (2.5 mg base)/3 mL nebulization soln tramadol 50 mg tablet 50 mg PO Q6H PRN severe pain 02/13/23 02/13/23 Previous Rx's Medication Instructions Recorded atorvastatin 40 mg tablet 40 mg PO BEDTIME #30 tabs 10/04/22 clonazepam 0.5 mg tablet 0.5 mg PO BID #14 tabs 10/04/22 mirtazapine 15 mg tablet 15 mg PO BEDTIME #30 tabs 10/04/22 tamsulosin 0.4 mg capsule 0.4 mg PO DAILY #30 caps 10/04/22 venlafaxine 75 mg capsule,extended 75 mg PO DAILY #30 caps 10/04/22 release 24 hr verapamil 120 mg tablet,extended 120 mg PO DAILY #30 tabs 10/04/22 release Allergies Allergy/AdvReac Type Severity Reaction Status Date / Time ibuprofen Allergy Intermediate Stomach Verified 02/13/23 02:07 Upset penicillin V Allergy Intermediate rash Verified 02/13/23 02:07 Review of Systems Review of Systems: Yes all other systems are reviewed and are negative PMFSH Past Medical History Medical History Anxiety Asthma BPH (benign prostatic hyperplasia) Cannabis use disorder, moderate, dependence Cocaine use disorder Depression Emphysema of lung Nicotine dependence Pulmonary nodules Surgical History Hx of cholecystectomy Social History Social History Household Members: None Housing: Apartment Do you presently have visiting nurse or other home services: Yes Unable to assess alcohol history related to: Unknown Alcohol intake: never Patient Tobacco Use Status: Never used Tobacco Tobacco use type: Cigarette Cigarettes Per Day: 5 Smoked in Last 30 Days: Yes e-Cigarette/Vaping Use: Never Used Second Hand Smoke Exposure: Yes Use of substances other than those prescribed or required for medical reasons: Yes Substance Use Type: Crack/Cocaine and Marijuana Substance Use Frequency: Chronic Longstanding Last Used Substance: Days (ago) Advance Directives: No Advance Directives Information Provided: No service: No Sexual orientation: Straight/Heterosexual Physical Exam Vital Signs: Vital Signs: Last Vital Signs Temp 98.2 F 02/13/23 07:10 Pulse 99 02/13/23 09:17 Resp 20 02/13/23 09:17 BP 125/80 02/13/23 09:17 Pulse Ox 96 02/13/23 09:17 O2 Del Method Room Air 02/13/23 09:17 BMI result Body Mass Index 22.3 Appearance: Alert. Oriented X3. No acute distress. Head: normocephalic, atraumatic. Eyes: Pupils equal, round and reactive to light. ENT: Pharynx normal. No tonsillar swelling or exudate. Neck: Normal inspection. Neck supple. CVS: Normal heart rate and rhythm. Pulses normal. Central chest wall tenderness Respiratory: No respiratory distress. Breath sounds normal. Abdomen: Soft and nontender. +BS x4 Skin: Skin warm and dry. Normal skin color. Normal skin turgor. No rashes. Extremities: No lower extremity edema. No joint swelling. Neuro/psych: Oriented X 3. No motor deficit. No sensory deficit. CN II-XII intact. Normal speech and cognition. Depressed mood, flat affect, actively suicidal. Course Reevaluation(s) Reevaluation #1: Medically cleared. Needs to see crisis team. Physician observation started at 07:15. Patient placed in physician observation because patient is awaiting CARE team evaluation for the possible need of inpatient psych admission. At the time observation was started patient's vital signs were stable. Patient is alert and oriented. Neuro exam is non-focal. CV: RRR and lungs are clear. Will continue to monitor. Time: 07:20 Reevaluation #2: patient seen and evaluated by CARE team - recommending dual diagnosis bed at this time. patient is voluntary at this time. will continue to monitor. Time: 10:21 Medications Administered Discontinued Medications Generic Name Dose Route Start Last Admin Trade Name Freq PRN Reason Stop Dose Admin Clonazepam 0.5 mg 02/13/23 07:40 02/13/23 07:47 Clonazepam 0.5 Mg Tablet PO 02/13/23 07:41 0.5 mg ONCE ONE Administration Ketorolac Tromethamine 30 mg 02/13/23 07:43 02/13/23 07:47 Ketorolac Tromethamine 30 Mg/Ml Vial IVPUSH 02/13/23 07:44 30 mg ONCE ONE Administration Medical Decision Making Medical Decision Making MDM Narrative: 57 yo male with history of COPD, depression, JERRY, cocaine and cannabid use disorder who presents to the ER from home via EMS for evaluation of chest pain, abdominal pain, headache and suicidal ideation. medical workup is unremarkable. chest pain is most likely related to anxiety. troponin negative and EKG without ischemic changes. given motrin and klonopin. medically cleared and seen by crisis. recommending dual dx bed search home med restarted will continue to monitor. Differential Diagnosis Differential Diagnoses: The differential diagnosis associated with the presentation includes substance induced mood disorder, acute psychosis, schizophrenia, schizoaffective disorder, PTSD, bipolar disorder, major depression with psychotic features chest pain most likely due to anxiety, less likely ACS or PE Admission/Observation Consideration of admission/observation: Escalation of care including admission/observation considered SI+ w/ plan and intent Consult Healthcare Provider Management of the patient was discussed with: Behavioral Health Provider Lab Data [facility] Lab Attestation statement: I reviewed the patient's lab results. stable anemia, no major metabolic derrangments. troponin negative 02/13/23 02:03 02/13/23 02:03 Labs: Lab Results 02/13/23 02/13/23 02/13/23 Range/Units 02:03 02:03 02:03 WBC 7.4 (4.8-10.8) X10*3/uL RBC 3.99 L (4.60-5.80) X10*6/uL Hgb 11.9 L (14.0-18.0) g/dl Hct 35.4 L (42.0-52.0) % MCV 88.7 (80.0-98.0) fL MCH 29.8 (27.0-33.0) pg MCHC 33.6 (31.0-36.0) g/dl RDW 14.2 (11.0-16.0) % Plt Count 385 D (160-400) X10*3/uL MPV 8.5 L (9.4-12.4) fL Absolute Nucleated RBC 0.000 (0.0-0.012) X10*3/uL Nucleated RBC % (auto) 0.0 (0.0-0.2) /100WBC Sodium 142 (135-145) mmol/L Potassium 3.4 (3.3-5.1) mmol/L Chloride 107 (96-108) mmol/L Carbon Dioxide 19 L (22-29) mmol/L Anion Gap 19 (12-20) BUN 9 (9-16) mg/dL Creatinine 0.77 (0.5-1.4) mg/dL Estim Creat Clear Calc 86.1 Estimated GFR > 60 Random Glucose 104 (60-115) mg/dL Calcium 9.3 D (8.4-10.2) mg/dL Total Bilirubin 0.4 (0.0-1.0) mg/dL AST 19 (5-37) U/L ALT 14 (0-40) U/L Alkaline Phosphatase 90 (39-117) U/L Troponin I High Sens (<3.5-35.0) ng/L Total Protein 6.8 (6.5-8.0) g/dL Albumin 3.8 (3.5-5.0) g/dL Urine Color Urine Appearance Urine pH (5.0-9.0) Ur Specific Lowber (1.005-1.025) Urine Protein (Neg-Trace) mg/dL Urine Glucose (UA) (Negative) mg/dL Urine Ketones (Negative) mg/dL Urine Blood (Negative) Urine Nitrite (Negative) Ur Leukocyte Esterase (Negative) Urine RBC (0-2) /HPF Urine WBC (0-5) /HPF Ur Squamous Epith Cells (0-2) /HPF Urine Bacteria (None Seen) Hyaline Casts (0-2) /LPF Urine Opiates Screen (Not Detect) Urine Fentanyl Screen (Not Detect) Ur Barbiturates Screen (Not Detect) Ur Phencyclidine Scrn (Not Detect) Ur Amphetamines Screen (Not Detect) U Benzodiazepines Scrn (Not Detect) Urine Cocaine Screen (Not Detect) U Marijuana (THC) Screen (Not Detect) Ethyl Alcohol < 10 mg/dL 02/13/23 02/13/23 02/13/23 Range/Units 02:03 02:19 02:19 WBC (4.8-10.8) X10*3/uL RBC (4.60-5.80) X10*6/uL Hgb (14.0-18.0) g/dl Hct (42.0-52.0) % MCV (80.0-98.0) fL MCH (27.0-33.0) pg MCHC (31.0-36.0) g/dl RDW (11.0-16.0) % Plt Count (160-400) X10*3/uL MPV (9.4-12.4) fL Absolute Nucleated RBC (0.0-0.012) X10*3/uL Nucleated RBC % (auto) (0.0-0.2) /100WBC Sodium (135-145) mmol/L Potassium (3.3-5.1) mmol/L Chloride (96-108) mmol/L Carbon Dioxide (22-29) mmol/L Anion Gap (12-20) BUN (9-16) mg/dL Creatinine (0.5-1.4) mg/dL Estim Creat Clear Calc Estimated GFR Random Glucose (60-115) mg/dL Calcium (8.4-10.2) mg/dL Total Bilirubin (0.0-1.0) mg/dL AST (5-37) U/L ALT (0-40) U/L Alkaline Phosphatase (39-117) U/L Troponin I High Sens < 2.7 (<3.5-35.0) ng/L Total Protein (6.5-8.0) g/dL Albumin (3.5-5.0) g/dL Urine Color Yellow Urine Appearance Clear Urine pH 6.0 (5.0-9.0) Ur Specific Lowber 1.020 (1.005-1.025) Urine Protein Trace (Neg-Trace) mg/dL Urine Glucose (UA) Negative (Negative) mg/dL Urine Ketones 40 (Negative) mg/dL Urine Blood Negative (Negative) Urine Nitrite Negative (Negative) Ur Leukocyte Esterase Small (1+) H (Negative) Urine RBC 3-5 H (0-2) /HPF Urine WBC 6-10 (0-5) /HPF Ur Squamous Epith Cells 3-5 (0-2) /HPF Urine Bacteria Trace (None Seen) Hyaline Casts 3-5 (0-2) /LPF Urine Opiates Screen Not Detected (Not Detect) Urine Fentanyl Screen Not Detected (Not Detect) Ur Barbiturates Screen Not Detected (Not Detect) Ur Phencyclidine Scrn Not Detected (Not Detect) Ur Amphetamines Screen Not Detected (Not Detect) U Benzodiazepines Scrn Not Detected (Not Detect) Urine Cocaine Screen POSITIVE H (Not Detect) U Marijuana (THC) Screen POSITIVE H (Not Detect) Ethyl Alcohol mg/dL Independent Interpretation I performed an independent interpretation of an: EKG Interpretation: EKG w/ sinus tachycardia, HR 113, incomplete RBBB (old compared to prior), normal MT interval, normal QTC, no ST segment elevations or depression Independent Historian Clinical information obtained from an independent historian. History obtained from or confirmed by: EMS External Record Review External record reviewed: Office record, Outpatient record, Prior outpatient labs and Prior outpatient radiology Prescription Management I considered prescription management with: Pain Medication and Other (antipsychotics) Chronic Conditions Patient?s care impacted by: Other (COPD, polysubstance abuse, depression) Social Determinants Patient?s care significantly limited by Social Determinants of Health including: Alcoholism and drug addiction in family, Problems related to primary support group and Other Social Determinant of Health Critical Care Time Critical Care Time Critical Care Time: No Discharge Plan Discharge Clinical Impression: Suicidal ideation, Atypical chest pain Patient Disposition: Still a Patient Prescriptions: No Action verapamil 120 mg Tablet Extended Release 120 mg PO DAILY Qty: 30 0RF Protocol: Hold for SBP/HR < HOLD for SBP < : 90 HOLD for HR < : 60 atorvastatin 40 mg Tablet 40 mg PO BEDTIME Qty: 30 0RF tamsulosin 0.4 mg Capsule 0.4 mg PO DAILY Qty: 30 0RF venlafaxine 75 mg Capsule,Extended Release 24hr 75 mg PO DAILY Qty: 30 0RF clonazepam 0.5 mg Tablet 0.5 mg PO BID Qty: 14 1RF mirtazapine 15 mg Tablet 15 mg PO BEDTIME Qty: 30 0RF pantoprazole 40 mg tablet,delayed release (DR/EC) 40 mg PO QAM fluticasone propionate [Flovent HFA] 220 mcg/actuation HFA aerosol inhaler 2 puff INHALATION BID zolpidem 10 mg tablet 10 mg PO BEDTIME quetiapine 400 mg tablet 400 mg PO BEDTIME quetiapine 200 mg tablet 100 mg PO BID ipratropium-albuterol 0.5 mg-3 mg(2.5 mg base)/3 mL solution for nebulization 3 ml inhalation TID PRN (Reason: wheezing) tramadol 50 mg tablet 50 mg PO Q6H PRN (Reason: severe pain) ferrous sulfate [FeroSul] 325 mg (65 mg iron) tablet 325 mg PO BEDTIME albuterol sulfate 90 mcg/actuation HFA aerosol inhaler 2 puff inhalation Q4-6H PRN (Reason: Shortness Of Breath Or Wheezing)
[2023-02-13 07:05] LABS: Troponin-I High Sensitivity < 2.7 ng/L (<3.5-35.0)
[2023-02-13 07:10] VITALS: BP 118/72; PULSE 90; RESP 24; TEMP 36.8; O2SAT 96
[2023-02-13] MEDS: Ketorolac Tromethamine 30 MG/ML VIAL IVPUSH (07:47)
[2023-02-13] MEDS: clonazePAM 0.5 MG TABLET PO ×2 (07:47→19:52)
--- NOTE | 2023-02-13 08:55 | PHA.MEDREC ---
Pharmacy Consult ? Medication Reconciliation Pharmacy has completed the medication reconciliation. spoke with patient through an supervisor filtration. He brought in his medications. His tamsulosin was a 90 DS from August but still takes. His clonazepam is prescribed as once daily but he reports taking BID. Patient says he just ran out of his duoneb solution.
--- NOTE | 2023-02-13 09:05 | PC.NURSE ---
assumed care of pt at 0700. pt mostly sammarinese speaking only but is able to get by with some armenian. pt endorses SI with plan and reported to provider that he tried to strangle himself yesterday while telling previous rn that he almost jumped off a bridge yesterday. pt sts he has been depressed and anxious with yesterday being worse. currently going through difficult divorce. pt medicated per sep, med rec complete. diet ordered. currently resting quietly on stretcher in no apparent distress, waiting for breakfast. wctm
[2023-02-13 09:17] VITALS: BP 125/80; PULSE 99; RESP 20; O2SAT 96
[2023-02-13 10:41] LABS: COVID-19 Test Negative (Negative); IDNOW Serial# 08D9AD1C
[2023-02-13 10:42] LABS: IDNOW Serial# 9DB6401D; Influenza A Negative (Negative); Influenza B2 Negative (Negative)
[2023-02-13] MEDS: Acetaminophen 325 MG TABLET 975 MG PO (11:22)
[2023-02-13] MEDS: Venlafaxine HCl ER 75 MG CAP.ER.24H PO (12:12)
[2023-02-13] MEDS: QUEtiapine Fumarate 100 MG TABLET PO ×2 (12:12→19:52)
[2023-02-13] MEDS: VerapamiL HCL SR 120 MG TABLET.ER PO (12:12)
--- NOTE | 2023-02-13 17:09 | MHC.CARE ---
Seen by CARE team, accepted to [facility].
--- NOTE | 2023-02-13 17:16 | PC.NURSE ---
Augustin came to the Ed reporting chest pain. When workups came back clear he endorsed SI and reported he has been having thoughts to hang or strangle himself. Since arriving in the POD Augustin has been pleasant and cooperative. He is complaint with medications and has a good appetite. Currently resting comfortably. Augustin verbalizes he feels safe on the unit. Staff will continue to monitor.
[2023-02-13] MEDS: Zolpidem Tartrate 5 MG TABLET PO (19:52)
[2023-02-13] MEDS: QUEtiapine Fumarate 400 MG TABLET PO (19:52)
[2023-02-13] MEDS: Mirtazapine 15 MG TABLET PO (19:53)
[2023-02-13] MEDS: Ferrous Sulfate 324 MG TABLET.DR PO (19:53)
[2023-02-13] MEDS: Atorvastatin Calcium 40 MG TABLET PO (19:57)
[2023-02-13] MEDS: Fluticasone Propionate 250 MCG BLST.W.DEV 2 PUFF INHALE (20:18)
[2023-02-14 01:00] VITALS: BP 96/63; PULSE 94; RESP 16; TEMP 36.6; O2SAT 99
--- NOTE | 2023-02-14 03:20 | PC.ADMIT ---
Augustin Vital is a 57yo, belizean speaking male admitted on a CV from [facility] for treatment of SI and substance abuse. Pt needs the service of an junior analyst to communicate with staffs. He reported SI due to the stress at home. He has a chronic history of substance use [ cocaine, PCP, and cannabis ] and had numerous admission including [facility], M3. Pt was alert and orientated, calm and cooperative but sleeping during admission process. He reported is not able to function daily due to his racing thoughts, anxiety and depression. He claimed to have medical conditions of COPD and asthma, endorsed SI with no plan but denies HI/AVH. Treatment and safety plans was initiated.
[2023-02-14] MEDS: Omeprazole 20 MG CAPSULE.DR PO (06:50)
[2023-02-14 09:40] VITALS: BP 104/63; PULSE 92; RESP 18; TEMP 36.8; O2SAT 96
[2023-02-14] MEDS: QUEtiapine Fumarate 100 MG TABLET PO ×2 (09:45→20:45)
[2023-02-14] MEDS: VerapamiL HCL SR 120 MG TABLET.ER PO (09:45)
[2023-02-14] MEDS: Venlafaxine HCl ER 75 MG CAP.ER.24H PO (09:45)
[2023-02-14] MEDS: Tamsulosin HCL 0.4 MG CAPSULE PO (09:46)
[2023-02-14] MEDS: clonazePAM 0.5 MG TABLET PO ×2 (09:46→20:45)
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
[2023-02-14] MEDS: Fluticasone Propionate 250 MCG BLST.W.DEV 2 PUFF INHALE ×2 (09:48→22:41)
[2023-02-14 09:55] LABS: Alanine Aminotransferase 13 U/L (0-40); Albumin Level 3.4 g/dL (3.5-5.0); Alkaline Phosphatase 83 U/L (39-117); Anion Gap 14 (12-20); Aspartate Amino Transferase 15 U/L (5-37); Bilirubin Total 0.3 mg/dL (0.0-1.0); Blood Urea Nitrogen 11 mg/dL (9-16); Calcium 8.8 mg/dL (8.4-10.2); Carbon Dioxide 24 mmol/L (22-29); Chloride 107 mmol/L (96-108); Cholesterol 120 mg/dL; Estimated Glomerular Filt Rate > 60; Glucose Fasting 80 mg/dL (60-99); HDL Cholesterol 32 mg/dL; LDL Cholesterol Calculated 79 mg/dl; Potassium 3.8 mmol/L (3.3-5.1); Sodium 141 mmol/L (135-145); Total Protein 6.1 g/dL (6.5-8.0); Triglycerides 47 mg/dL
[2023-02-14] MEDS: Nicotine 14 MG PATCH.TD24 TRANSDERMA (10:05)
[2023-02-14] MEDS: hydrOXYzine HCL 25 MG TABLET PO (15:07)
[2023-02-14 20:10] VITALS: BP 109/68; PULSE 96; RESP 16; TEMP 36.6; O2SAT 97
[2023-02-14] MEDS: Zolpidem Tartrate 5 MG TABLET PO (20:44)
[2023-02-14] MEDS: QUEtiapine Fumarate 400 MG TABLET PO (20:44)
[2023-02-14] MEDS: traZODone HCL 50 MG TABLET PO (20:45)
[2023-02-14] MEDS: Atorvastatin Calcium 40 MG TABLET PO (20:45)
[2023-02-14] MEDS: Mirtazapine 15 MG TABLET PO (20:46)
[2023-02-14] MEDS: Ferrous Sulfate 324 MG TABLET.DR PO (20:46)
[2023-02-15] MEDS: hydrOXYzine HCL 25 MG TABLET PO ×3 (01:01→23:30)
[2023-02-15] MEDS: traZODone HCL 50 MG TABLET PO ×2 (01:01→23:29)
[2023-02-15] MEDS: Omeprazole 20 MG CAPSULE.DR PO (06:48)
[2023-02-15 08:00] VITALS: BP 114/68; PULSE 84; RESP 16; TEMP 36.4; O2SAT 96
[2023-02-15] MEDS: Fluticasone Propionate 250 MCG BLST.W.DEV 2 PUFF INHALE ×2 (08:18→20:46)
[2023-02-15] MEDS: Nicotine 14 MG PATCH.TD24 TRANSDERMA (08:19)
[2023-02-15] MEDS: Tamsulosin HCL 0.4 MG CAPSULE PO (08:20)
[2023-02-15] MEDS: clonazePAM 0.5 MG TABLET PO ×2 (08:20→20:45)
[2023-02-15] MEDS: QUEtiapine Fumarate 100 MG TABLET PO ×2 (08:20→20:44)
[2023-02-15] MEDS: Venlafaxine HCl ER 75 MG CAP.ER.24H PO (08:20)
[2023-02-15] MEDS: VerapamiL HCL SR 120 MG TABLET.ER PO (08:21)
--- NOTE | 2023-02-15 16:10 | P.PNPSI_ITS ---
Subjective Subjective Date of Service: 02/15/23 Reason For Visit: SI Subjective Notes: Conditional Voluntary Interim History: Pt reports he relapsed. He reports relationship with is over, they had and he had hoped they could go back together but with him relapsing, his told him she is not going back with him. He reports feeling hopeless but denies SI/HI. Pt reports pain when urinating and on side of back- will repeat UA, but concern for kidney stones Per nursing, pt visible on the unit. social no behavioral concerns. Review of Systems Review of Systems Yes all other systems are reviewed and are negative Constitutional: Reports as per HPI Eyes: Reports as per HPI Reports as per HPI Cardiovascular: Reports as per HPI Respiratory: Reports as per HPI Gastrointestinal: Reports as per HPI Genitourinary: Reports as per HPI Musculoskeletal: Reports as per HPI Skin/Breast: Reports as per HPI Reports as per HPI Psychiatric: Reports as per HPI Endocrine: Reports as per HPI Hematologic/Lymphatic: Reports as per HPI Allergic/Immunologic: Reports as per HPI Diagnostics Vital Signs (24Hr): Vital Signs - 24 hr 02/14/23 20:10 02/15/23 08:00 Temperature 97.9 F 97.6 F Pulse Rate 96 84 Respiratory Rate 16 16 Blood Pressure 109/68 114/68 Pulse Oximetry 97 96 Oxygen Delivery Method Room Air Room Air BMI result Body Mass Index 22.3 Labs 02/13/23 02:03 02/14/23 08:57 Labs: Laboratory Results - last 48 hr 02/14/23 08:57 Sodium 141 Potassium 3.8 Chloride 107 Carbon Dioxide 24 Anion Gap 14 BUN 11 Creatinine 0.78 Estim Creat Clear Calc 85.0 Estimated GFR > 60 Fasting Glucose 80 Calcium 8.8 Total Bilirubin 0.3 AST 15 ALT 13 Alkaline Phosphatase 83 Total Protein 6.1 L Albumin 3.4 L Triglycerides 47 Cholesterol 120 LDL Cholesterol, Calc 79 HDL Cholesterol 32 Medications Medications Current Medications Acetaminophen (Acetaminophen 325 Mg Tablet) 650 mg PO Q6H PRN PRN Reason: Headache/Pain Mild Scale (1-3) Al Hydroxide/Mg Hydroxide (Magnesium Hydrox/Alum Hydrox 30 Ml Oral.Susp) 30 ml PO Q6H PRN PRN Reason: Heartburn/Nausea Albuterol Sulfate (Albuterol Sulfate 90 Mcg 8 Gm Inhaler) 2 puff INHALE Q4H PRN PRN Reason: Shortness Of Breath Or Wheezing Albuterol/Ipratropium (Albuterol/Iprat 2.5/0.5mg 3 Ml Ampul.Neb) 3 ml INHALE TID PRN PRN Reason: wheezing Atorvastatin Calcium (Atorvastatin Calcium 40 Mg Tablet) 40 mg PO BEDTIME [facility] Last Admin: 02/14/23 20:45 Dose: 40 mg Clonazepam (Clonazepam 0.5 Mg Tablet) 0.5 mg PO BID [facility] Last Admin: 02/15/23 08:20 Dose: 0.5 mg Ferrous Sulfate (Ferrous Sulfate 324 Mg Tablet.) 324 mg PO BEDTIME [facility] Last Admin: 02/14/23 20:46 Dose: 324 mg Fluticasone Propionate (Fluticasone Propionate 250 Mcg Blst.W.Dev) 2 puff INHALE RBID [facility] Last Admin: 02/15/23 08:18 Dose: 2 puff Hydroxyzine HCl (Hydroxyzine Hcl 25 Mg Tablet) 25 mg PO Q6H PRN PRN Reason: Anxiety Last Admin: 02/15/23 13:04 Dose: 25 mg Magnesium Hydroxide (Milk Of Magnesia 30 Ml Oral.Susp) 30 ml PO DAILY PRN PRN Reason: Constipation Mirtazapine (Mirtazapine 15 Mg Tablet) 15 mg PO BEDTIME [facility] Last Admin: 02/14/23 20:46 Dose: 15 mg Nicotine (Nicotine 14 Mg Patch.Td24) 14 mg TRANSDERMA DAILY [facility] Last Admin: 02/15/23 08:19 Dose: 14 mg Omeprazole (Omeprazole 20 Mg Capsule.) 20 mg PO DAILY@0630 [facility] Last Admin: 02/15/23 06:48 Dose: 20 mg Pharmacy Consult (Consult Rx Perform Med Rec) 1 each MISCELLANE ONCE PRN PRN Reason: Consult order Quetiapine Fumarate (Quetiapine Fumarate 100 Mg Tablet) 100 mg PO BID [facility] Last Admin: 02/15/23 08:20 Dose: 100 mg Quetiapine Fumarate (Quetiapine Fumarate 400 Mg Tablet) 400 mg PO BEDTIME [facility] Last Admin: 02/14/23 20:44 Dose: 400 mg Tamsulosin HCl (Tamsulosin Hcl 0.4 Mg Capsule) 0.4 mg PO DAILY [facility] Last Admin: 02/15/23 08:20 Dose: 0.4 mg Trazodone HCl (Trazodone Hcl 50 Mg Tablet) 50 mg PO BEDTIME MRX1 PRN PRN Reason: Insomnia Last Admin: 02/15/23 01:01 Dose: 50 mg Venlafaxine HCl (Venlafaxine Hcl Er 75 Mg Cap.Er.24h) 75 mg PO DAILY [facility] Last Admin: 02/15/23 08:20 Dose: 75 mg Verapamil HCl (Verapamil Hcl Sr 120 Mg Tablet.Er) 120 mg PO DAILY [facility]; Protocol Last Admin: 02/15/23 08:21 Dose: 120 mg Zolpidem Tartrate (Zolpidem Tartrate 5 Mg Tablet) 5 mg PO BEDTIME [facility] Last Admin: 02/14/23 20:44 Dose: 5 mg Allergies Allergies Allergy/AdvReac Type Severity Reaction Status Date / Time ibuprofen Allergy Intermediate Stomach Verified 02/13/23 02:07 Upset penicillin V Allergy Intermediate rash Verified 02/13/23 02:07 Assessment & Plan Assessment & Plan (1) MDD (major depressive disorder), recurrent episode: Status: Acute Code(s): F33.9 - Major depressive disorder, recurrent, unspecified (2) Cocaine use disorder: Status: Acute Code(s): F14.10 - Cocaine abuse, uncomplicated Plan Patient is a 57 year old male with hx of MDD and cocaine use d/o who has a hx of multiple inpatient admissions at [facility] that presented to [facility] via ambulance reporting chest and abdominal pain and poor appetite with suicidal ideation for the last 5 days d/t increase depressive symptoms. Plan: CV 15 minute safety checks Referral to treatment program Continue home medications Referral for visiting RN for medication compliance. 02/15 continue tx. repeatUA, but concern of kidney stones. Reason for continued inpatient stay Substantial Risk for: harm to self Time Spent With Patient Time: Total time managing care of this patient today ____ minutes.
[2023-02-15] MEDS: QUEtiapine Fumarate 50 MG TABLET PO (17:26)
[2023-02-15 17:45] LABS: Appearance Urine Clear; Color Urine Yellow; Glucose Urine UA Negative (Negative); Leukocyte Esterase Urine Trace (Negative); Nitrite Urine Negative (Negative); UMIC TRIGGER UACC YES; Urine Blood Negative (Negative); Urine Ketones Trace mg/dL (Negative); Urine Protein Trace mg/dL (Neg-Trace)
[2023-02-15 17:51] LABS: Bacteria Urine None Seen (None Seen); Hyaline Casts Urine 0-2 /LPF (0-2); Squamous Epithelial Cell Urine 0-2 /HPF (0-2); WBC Urine 0-5 /HPF (0-5)
[2023-02-15] MEDS: Acetaminophen 325 MG TABLET 650 MG PO (18:37)
--- NOTE | 2023-02-15 18:40 | PC.NURSE ---
pt reports pain and burning while urinating, is also complaining of lower back pain. Jennifer aware. Additional UA ordered, Tylenol administered for pain.
[2023-02-15 19:45] VITALS: BP 134/78; PULSE 82; RESP 18; TEMP 36.6; O2SAT 97
[2023-02-15] MEDS: Zolpidem Tartrate 5 MG TABLET PO (20:44)
[2023-02-15] MEDS: Atorvastatin Calcium 40 MG TABLET PO (20:44)
[2023-02-15] MEDS: QUEtiapine Fumarate 400 MG TABLET PO (20:44)
[2023-02-15] MEDS: Ferrous Sulfate 324 MG TABLET.DR PO (20:44)
[2023-02-15] MEDS: Mirtazapine 15 MG TABLET PO (20:45)
[2023-02-15] MEDS: Phenazopyridine HCL 100 MG TABLET PO (21:36)
--- NOTE | 2023-02-15 21:43 | PC.NURSE ---
Augustin is admitted to [facility] for safety and stabilization, he has been complaining of low back pain and burning on urination, continues to complain with no reported relief from tylenol. Scarfer SEVERINO Quintanilla updated and pyridium order given x 1 dose.
[2023-02-15] MEDS: traMADoL HCL 50 MG TABLET PO (23:29)
[2023-02-16] MEDS: Omeprazole 20 MG CAPSULE.DR PO (05:23)
[2023-02-16 07:00] VITALS: BMI 21.7
[2023-02-16] MEDS: Acetaminophen 325 MG TABLET 650 MG PO ×2 (07:02→23:09)
[2023-02-16] MEDS: hydrOXYzine HCL 25 MG TABLET PO ×3 (07:02→23:09)
[2023-02-16 08:45] VITALS: BP 107/63; PULSE 83; RESP 18; TEMP 36.9; O2SAT 96
[2023-02-16] MEDS: Fluticasone Propionate 250 MCG BLST.W.DEV 2 PUFF INHALE ×2 (08:54→20:34)
[2023-02-16] MEDS: Nicotine 14 MG PATCH.TD24 TRANSDERMA (08:54)
[2023-02-16] MEDS: VerapamiL HCL SR 120 MG TABLET.ER PO (08:56)
[2023-02-16] MEDS: Venlafaxine HCl ER 75 MG CAP.ER.24H PO (08:56)
[2023-02-16] MEDS: Tamsulosin HCL 0.4 MG CAPSULE PO ×2 (08:56→20:35)
[2023-02-16] MEDS: clonazePAM 0.5 MG TABLET PO ×2 (08:56→20:34)
[2023-02-16] MEDS: QUEtiapine Fumarate 100 MG TABLET PO ×2 (08:56→20:35)
--- NOTE | 2023-02-16 09:52 | HO.PSYCHPN ---
Subjective Subjective Date of Service: 02/16/23 Reason For Visit: SI Subjective Notes: Conditional Voluntary Interim History: Reviewed in team and Dr. Butt. auto damage adjuster utilized. Patient reports feeling depressed and anxious today. Patient stated, I have suicidal thoughts. I feel like my life isn't worth living because my relationship with my is broken and my son is in [place] [facility] . Patient reports auditory hallucinations of voices telling me to kill myself . Patient stated, I want to stay for weeks because I feel safe here . Patient C/O pain when urinating, hx of kidney stones; hospitalist consult ordered, along with Tramadol PO. Medication Compliance: Yes Side effects from medications: No Attending Groups: Intermittent Review of Systems Constitutional: Reports as per HPI Eyes: Reports as per HPI Reports as per HPI Cardiovascular: Reports as per HPI Respiratory: Reports as per HPI Gastrointestinal: Reports as per HPI Genitourinary: Reports as per HPI Musculoskeletal: Reports as per HPI Skin/Breast: Reports as per HPI Reports as per HPI Psychiatric: Reports as per HPI Endocrine: Reports as per HPI Hematologic/Lymphatic: Reports as per HPI Allergic/Immunologic: Reports as per HPI Mental Status Exam Mental Status Exam Narrative: Pt is alert and oriented; behavior is cooperative and calm; dressed in casual attire; mood is described as depressed ; eye contact appropriate; Speech is normal rate, volume and prosody and not pressured; no psychomotor agitation/retardation present; thought process is organized and goal directed; Thought content is on tx; otherwise pertinent to relevant topics and without any delusional content, paranoid ideations or grandiosity; denies any HI. Pt reports suicidal ideation with no plan. Reports auditory hallucinations of voices telling me to kill myself . Denies VH. Patients insight and judgment are poor. Diagnostics Vital Signs (24Hr): Vital Signs - 24 hr 02/15/23 19:45 02/16/23 08:45 Temperature 98 F 98.4 F Pulse Rate 82 83 Respiratory Rate 18 18 Blood Pressure 134/78 107/63 Pulse Oximetry 97 96 Oxygen Delivery Method Room Air Room Air BMI result Body Mass Index 21.7 Labs 02/13/23 02:03 02/14/23 08:57 Labs: Laboratory Results - last 48 hr 02/14/23 02/15/23 08:57 16:45 Sodium 141 Potassium 3.8 Chloride 107 Carbon Dioxide 24 Anion Gap 14 BUN 11 Creatinine 0.78 Estim Creat Clear Calc 85.0 Estimated GFR > 60 Fasting Glucose 80 Calcium 8.8 Total Bilirubin 0.3 AST 15 ALT 13 Alkaline Phosphatase 83 Total Protein 6.1 L Albumin 3.4 L Triglycerides 47 Cholesterol 120 LDL Cholesterol, Calc 79 HDL Cholesterol 32 Urine Color Yellow Urine Appearance Clear Urine pH 7.0 Ur Specific [place] 1.020 Urine Protein Trace Urine Glucose (UA) Negative Urine Ketones Trace Urine Blood Negative Urine Nitrite Negative Ur Leukocyte Esterase Trace H Urine RBC 3-5 H Urine WBC 0-5 Ur Squamous Epith Cells 0-2 Urine Bacteria None Seen Hyaline Casts 0-2 Medications Medications Current Medications Acetaminophen (Acetaminophen 325 Mg Tablet) 650 mg PO Q6H PRN PRN Reason: Headache/Pain Mild Scale (1-3) Last Admin: 02/16/23 07:02 Dose: 650 mg Al Hydroxide/Mg Hydroxide (Magnesium Hydrox/Alum Hydrox 30 Ml Oral.Susp) 30 ml PO Q6H PRN PRN Reason: Heartburn/Nausea Albuterol Sulfate (Albuterol Sulfate 90 Mcg 8 Gm Inhaler) 2 puff INHALE Q4H PRN PRN Reason: Shortness Of Breath Or Wheezing Albuterol/Ipratropium (Albuterol/Iprat 2.5/0.5mg 3 Ml Ampul.Neb) 3 ml INHALE TID PRN PRN Reason: wheezing Atorvastatin Calcium (Atorvastatin Calcium 40 Mg Tablet) 40 mg PO BEDTIME [facility] Last Admin: 02/15/23 20:44 Dose: 40 mg Clonazepam (Clonazepam 0.5 Mg Tablet) 0.5 mg PO BID [facility] Last Admin: 02/16/23 08:56 Dose: 0.5 mg Ferrous Sulfate (Ferrous Sulfate 324 Mg Tablet.Dr) 324 mg PO BEDTIME [facility] Last Admin: 02/15/23 20:44 Dose: 324 mg Fluticasone Propionate (Fluticasone Propionate 250 Mcg Blst.W.Dev) 2 puff INHALE RBID [facility] Last Admin: 02/16/23 08:54 Dose: 2 puff Hydroxyzine HCl (Hydroxyzine Hcl 25 Mg Tablet) 25 mg PO Q6H PRN PRN Reason: Anxiety Last Admin: 02/16/23 07:02 Dose: 25 mg Magnesium Hydroxide (Milk Of Magnesia 30 Ml Oral.Susp) 30 ml PO DAILY PRN PRN Reason: Constipation Mirtazapine (Mirtazapine 15 Mg Tablet) 15 mg PO BEDTIME [facility] Last Admin: 02/15/23 20:45 Dose: 15 mg Nicotine (Nicotine 14 Mg Patch.Td24) 14 mg TRANSDERMA DAILY [facility] Last Admin: 02/16/23 08:54 Dose: 14 mg Omeprazole (Omeprazole 20 Mg Capsule.Dr) 20 mg PO DAILY@0630 [facility] Last Admin: 02/16/23 05:23 Dose: 20 mg Pharmacy Consult (Consult Rx Perform Med Rec) 1 each MISCELLANE ONCE PRN PRN Reason: Consult order Quetiapine Fumarate (Quetiapine Fumarate 100 Mg Tablet) 100 mg PO BID [facility] Last Admin: 02/16/23 08:56 Dose: 100 mg Quetiapine Fumarate (Quetiapine Fumarate 400 Mg Tablet) 400 mg PO BEDTIME [facility] Last Admin: 02/15/23 20:44 Dose: 400 mg Tamsulosin HCl (Tamsulosin Hcl 0.4 Mg Capsule) 0.4 mg PO DAILY [facility] Last Admin: 02/16/23 08:56 Dose: 0.4 mg Trazodone HCl (Trazodone Hcl 50 Mg Tablet) 50 mg PO BEDTIME [facility] PRN PRN Reason: Insomnia Last Admin: 02/15/23 23:29 Dose: 50 mg Venlafaxine HCl (Venlafaxine Hcl Er 75 Mg Cap.Er.24h) 75 mg PO DAILY [facility] Last Admin: 02/16/23 08:56 Dose: 75 mg Verapamil HCl (Verapamil Hcl Sr 120 Mg Tablet.Er) 120 mg PO DAILY [facility]; Protocol Last Admin: 02/16/23 08:56 Dose: 120 mg Zolpidem Tartrate (Zolpidem Tartrate 5 Mg Tablet) 5 mg PO BEDTIME [facility] Last Admin: 02/15/23 20:44 Dose: 5 mg Allergies Allergies Allergy/AdvReac Type Severity Reaction Status Date / Time ibuprofen Allergy Intermediate Stomach Verified 02/13/23 02:07 Upset penicillin V Allergy Intermediate rash Verified 02/13/23 02:07 Assessment & Plan Assessment & Plan (1) MDD (major depressive disorder), recurrent episode: Status: Acute Code(s): F33.9 - Major depressive disorder, recurrent, unspecified (2) Cocaine use disorder: Status: Acute Code(s): F14.10 - Cocaine abuse, uncomplicated Plan Patient is a 57 year old male with hx of MDD and cocaine use d/o who has a hx of multiple inpatient admissions at [facility] that presented to [facility] via ambulance reporting chest and abdominal pain and poor appetite with suicidal ideation for the last 5 days d/t increase depressive symptoms. Plan: CV 15 minute safety checks Referral to treatment program Continue home medications Referral for visiting RN for medication compliance. 02/15 continue tx. repeatUA, but concern of kidney stones. 02/16: Patient reports feeling depressed and anxious today. Patient stated, I have suicidal thoughts. I feel like my life isn't worth living because my relationship with my is broken and my son is in [place] [facility] . Patient reports auditory hallucinations of voices telling me to kill myself . Patient stated, I want to stay for weeks because I feel safe here . Patient C/O pain when urinating, hx of kidney stones; hospitalist consult ordered, along with Tramadol PO. Patient educated on: diagnosis, medication risk/benefits and therapeutic strategies Informed Consent: understands Reason for continued inpatient stay Substantial Risk for: harm to self and med/psych decompensation Time Spent With Patient Time: Total time managing care of this patient today _30___ minutes.
[2023-02-16] MEDS: traMADoL HCL 50 MG TABLET PO (11:28)
[2023-02-16] MEDS: oxyCODONE HCl Immed Release 5 MG TABLET PO ×2 (14:02→20:35)
--- NOTE | 2023-02-16 16:19 | PM.EVENT ---
Documented by User: SANTOSH Oden 02/17/23 11:14 Event Note Date of Service: 02/17/23 Event Note: Addendum2: Patient now complaining of dysuria and gross hematuria. Patient no placed on Oxy 5 mg q.4. Addendum: CT of abdomen pelvis came back showing at least 7 right renal calculi with the largest measuring 4 mm in size and at least 8 left renal calculi with the largest measuring 5 mm. Bilateral ureters are unremarkable. The plan is to increase patient's tamsulosin to 0.8 mg daily, encourage p.o. hydration, analgesics for pain management for now, and get a Urology consult. Patient is a 57-year-old male with a PMH significant for HTN, HLD, COPD, migraines, hx of kidney stones, depression, and anxiety who is seen for evaluation of possible kidney stones. Patient complains of bilateral flank pain that he says feels exactly like it did when he had kidney stones in the past. He reports pain started yesterday when he also noticed blood in his urine. Right worse than left, rates his pain a 10/10 insisted wraps from his flank to his back. Patient has been experiencing chills and nausea, but no vomiting. Also complains of suprapubic pain. No fever. Denies chest pain/pressure, palpitations. No shortness of breath. Will get CT abdomen/pelvis wo contrast. Will treat patient's pain with 1 dose of Oxy 5 mg. Pt should continue Flowmax. Will continue following for now pending CT resutls. Time Spent With Patient Time: Total time managing care of this patient today ____ minutes. Documented by User: SANTOSH Lovett 02/18/23 11:50 Event Note Date of Service: 02/18/23
[2023-02-16 19:55] VITALS: BP 139/84; PULSE 91; RESP 18; TEMP 36.6; O2SAT 97
--- NOTE | 2023-02-16 20:31 | MHC.RECOVSUP ---
? Reason for consult:PERCY o? Current location:[facility]? o? Identified substance use concern: -? Support ? Intervention: o? Community resources provided ? Plan: o? Follow up tomorrow ? Additional information:RC met with this pt today and discussed treatment options, pt stated he just needs some guidance and resources to assist him in his journey. This pt stated he'd like to continue his recovery process in a [facility] facility. Please follow up with this pt tomorrow.
[2023-02-16] MEDS: QUEtiapine Fumarate 400 MG TABLET PO (20:34)
[2023-02-16] MEDS: Atorvastatin Calcium 40 MG TABLET PO (20:34)
[2023-02-16] MEDS: Zolpidem Tartrate 5 MG TABLET PO (20:35)
[2023-02-16] MEDS: Mirtazapine 15 MG TABLET PO (20:36)
[2023-02-16] MEDS: Ferrous Sulfate 324 MG TABLET.DR PO (21:20)
[2023-02-17] MEDS: oxyCODONE HCl Immed Release 5 MG TABLET PO ×4 (03:46→20:40)
[2023-02-17] MEDS: Omeprazole 20 MG CAPSULE.DR PO (05:49)
[2023-02-17 08:00] VITALS: BP 113/67; PULSE 84; RESP 16; TEMP 36.6; O2SAT 93
[2023-02-17] MEDS: clonazePAM 0.5 MG TABLET PO ×2 (08:12→20:40)
[2023-02-17] MEDS: VerapamiL HCL SR 120 MG TABLET.ER PO (08:12)
[2023-02-17] MEDS: Nicotine 14 MG PATCH.TD24 TRANSDERMA (08:13)
[2023-02-17] MEDS: Tamsulosin HCL 0.4 MG CAPSULE 0.8 MG PO (08:13)
[2023-02-17] MEDS: Fluticasone Propionate 250 MCG BLST.W.DEV 2 PUFF INHALE ×2 (08:15→20:43)
[2023-02-17] MEDS: Venlafaxine HCl ER 75 MG CAP.ER.24H PO (08:16)
[2023-02-17] MEDS: QUEtiapine Fumarate 100 MG TABLET PO ×2 (08:17→20:40)
[2023-02-17] MEDS: Acetaminophen 325 MG TABLET 650 MG PO (09:32)
--- NOTE | 2023-02-17 11:41 | PC.NURSE ---
Augustin reports pain in penis on urination and blood in urine this morning. Steven FROST informed and consult to urology updated.
--- NOTE | 2023-02-17 14:41 | PC.NURSE ---
Dr. Mckenzie from Urology visited the unit and spoke wtih RN. stated that pt's kidney stones are chronic and therefore do not need to be addressed while he's inpatient. recommended that he follows up in an outpatient setting. did not meet with pt, but staff called [facility] to explain to him that he will not be seeing the urologist while he's here.
[2023-02-17] MEDS: QUEtiapine Fumarate 25 MG TABLET PO (14:58)
--- NOTE | 2023-02-17 15:54 | P.PNPSI_ITS ---
Subjective Subjective Date of Service: 02/17/23 Reason For Visit: SI Subjective Notes: Conditional Voluntary Interim History: Pt found to have renal calculi- urologist reviewed his chart. Given that stones are non obstructive, pt can follow up in about one month with urology. Recommendation for pain management is toradol as pain comes from muscle not stone. Give extensive hx of substace use and more appropriate pain management, will d/c oxycodone and start toradol. Here he can have IM and bypass GI S/E. Pt reports feeling down today mostly due to pain. Pt encouraged to drink plenty of fluids. Pt denies SI/IH. Again we discussed referrals for CSS, but pt insists he wants to go back home. He also asks if he can stay here for 3 more weeks, which was explained to pt was not the case as he does not meet inpatient level of care as of next week. Per nursing, pt with significant difficulty staying asleep. No behavioral concerns. Medication Compliance: Yes Side effects from medications: No Mental Status Exam Mental Status Exam Narrative: Appearance: casually groomed, fair hygiene, in NAD Behavior: cooperative Psychomotor: no agitation or retardation noted Speech: clear, normal rate/rhythm/volume, spontaneous TP: linear TC: no signs of delusions, future oriented. Mood: down Affect: in pain SI:none HI: none AH/VH: none, hears voices of mother but this are trauma related not psychotic in nature. Delusions: none Insight/judgment: poor x 2. Memory/cog: alert, oriented x 3. Diagnostics Vital Signs (24Hr): Vital Signs - 24 hr 02/16/23 19:55 02/17/23 08:00 Temperature 97.8 F 97.9 F Pulse Rate 91 84 Respiratory Rate 18 16 Blood Pressure 139/84 113/67 Pulse Oximetry 97 93 Oxygen Delivery Method Room Air Room Air BMI result Body Mass Index 21.7 Labs 02/13/23 02:03 02/14/23 08:57 Labs: Laboratory Results - last 48 hr 02/15/23 16:45 Urine Color Yellow Urine Appearance Clear Urine pH 7.0 Ur Specific [place] 1.020 Urine Protein Trace Urine Glucose (UA) Negative Urine Ketones Trace Urine Blood Negative Urine Nitrite Negative Ur Leukocyte Esterase Trace H Urine RBC 3-5 H Urine WBC 0-5 Ur Squamous Epith Cells 0-2 Urine Bacteria None Seen Hyaline Casts 0-2 Imaging Radiology Impressions: ITS Impressions Abdomen/Pelvis CT 02/16/23 14:13 IMPRESSION: There is a similar bilateral renal stone burden without evidence of obstructive uropathy compared to previous study of 04/06/2022. Fleischner guidelines were followed. Medications Medications Current Medications Acetaminophen (Acetaminophen 325 Mg Tablet) 650 mg PO Q6H PRN PRN Reason: Headache/Pain Mild Scale (1-3) Last Admin: 02/17/23 09:32 Dose: 650 mg Al Hydroxide/Mg Hydroxide (Magnesium Hydrox/Alum Hydrox 30 Ml Oral.Susp) 30 ml PO Q6H PRN PRN Reason: Heartburn/Nausea Albuterol Sulfate (Albuterol Sulfate 90 Mcg 8 Gm Inhaler) 2 puff INHALE Q4H PRN PRN Reason: Shortness Of Breath Or Wheezing Albuterol/Ipratropium (Albuterol/Iprat 2.5/0.5mg 3 Ml Ampul.Neb) 3 ml INHALE T ID PRN PRN Reason: wheezing Atorvastatin Calcium (Atorvastatin Calcium 40 Mg Tablet) 40 mg PO BEDTIME [facility] Last Admin: 02/16/23 20:34 Dose: 40 mg Baclofen (Baclofen 10 Mg Tablet) 10 mg PO TID [facility] Clonazepam (Clonazepam 0.5 Mg Tablet) 0.5 mg PO BID [facility] Last Admin: 02/17/23 08:12 Dose: 0.5 mg Ferrous Sulfate (Ferrous Sulfate 324 Mg Tablet.Dr) 324 mg PO BEDTIME [facility] Last Admin: 02/16/23 21:20 Dose: 324 mg Fluticasone Propionate (Fluticasone Propionate 250 Mcg Blst.W.Dev) 2 puff INHALE RBID [facility] Last Admin: 02/17/23 08:15 Dose: 2 puff Hydroxyzine HCl (Hydroxyzine Hcl 50 Mg Tablet) 50 mg PO Q6H PRN PRN Reason: Anxiety Ketorolac Tromethamine (Ketorolac Tromethamine 30 Mg/Ml Vial) 30 mg IM Q6H PRN PRN Reason: moderate, pain Magnesium Hydroxide (Milk Of Magnesia 30 Ml Oral.Susp) 30 ml PO DAILY PRN PRN Reason: Constipation Mirtazapine (Mirtazapine 15 Mg Tablet) 15 mg PO BEDTIME [facility] Last Admin: 02/16/23 20:36 Dose: 15 mg Nicotine (Nicotine 14 Mg Patch.Td24) 14 mg TRANSDERMA DAILY [facility] Last Admin: 02/17/23 08:13 Dose: 14 mg Omeprazole (Omeprazole 20 Mg Capsule.Dr) 20 mg PO DAILY@0630 [facility] Last Admin: 02/17/23 05:49 Dose: 20 mg Pharmacy Consult (Consult Rx Perform Med Rec) 1 each MISCELLANE ONCE PRN PRN Reason: Consult order Quetiapine Fumarate (Quetiapine Fumarate 100 Mg Tablet) 100 mg PO BID [facility] Last Admin: 02/17/23 08:17 Dose: 100 mg Quetiapine Fumarate (Quetiapine Fumarate 400 Mg Tablet) 400 mg PO BEDTIME [facility] Last Admin: 02/16/23 20:34 Dose: 400 mg Quetiapine Fumarate (Quetiapine Fumarate 25 Mg Tablet) 25 mg PO Q6H PRN PRN Reason: anxiety Last Admin: 02/17/23 14:58 Dose: 25 mg Tamsulosin HCl (Tamsulosin Hcl 0.4 Mg Capsule) 0.8 mg PO DAILY [facility] Last Admin: 02/17/23 08:13 Dose: 0.8 mg Trazodone HCl (Trazodone Hcl 50 Mg Tablet) 50 mg PO BEDTIME PRN PRN Reason: Insomnia Venlafaxine HCl (Venlafaxine Hcl Er 75 Mg Cap.Er.24h) 75 mg PO DAILY [facility] Last Admin: 02/17/23 08:16 Dose: 75 mg Verapamil HCl (Verapamil Hcl Sr 120 Mg Tablet.Er) 120 mg PO DAILY [facility]; Protocol Last Admin: 02/17/23 08:12 Dose: 120 mg Zolpidem Tartrate (Zolpidem Tartrate 5 Mg Tablet) 5 mg PO BEDTIME [facility] Last Admin: 02/16/23 20:35 Dose: 5 mg Allergies Allergies Allergy/AdvReac Type Severity Reaction Status Date / Time ibuprofen Allergy Intermediate Stomach Verified 02/13/23 02:07 Upset penicillin V Allergy Intermediate rash Verified 02/13/23 02:07 Assessment & Plan Assessment & Plan (1) MDD (major depressive disorder), recurrent episode: Status: Acute Code(s): F33.9 - Major depressive disorder, recurrent, unspecified (2) Cocaine use disorder: Status: Acute Code(s): F14.10 - Cocaine abuse, uncomplicated Plan Patient is a 57 year old male with hx of MDD and cocaine use d/o who has a hx of multiple [place] [facility] [place] [facility] via ambulance reporting chest and abdominal pain and poor appetite with suicidal ideation for the last 5 days d/t increase depressive symptoms. Plan: CV 15 minute safety checks Referral to treatment program Continue home medications Referral for visiting RN for medication compliance. 02/15 continue tx. repeatUA, but concern of kidney stones. 02/16: Patient reports feeling depressed and anxious today. Patient stated, I have suicidal thoughts. I feel like my life isn't worth living because my relati onship with my is broken and my son is in longterm . Patient reports auditory hallucinations of voices telling me to kill myself . Patient stated, I want to stay for weeks because I feel safe here . Patient C/O pain when urinating, hx of kidney stones; hospitalist consult ordered, along with Tramadol PO. 02/17 urologist recommends follow up outpatient in about one month since kidney stones are non obstructing. Pain better manage with toradol, rather than opiod medications. d/c oxycodone. Start toradol 30mg IM q6h prn pain. also started pt on baclofen, which may help decrease cocaine cravings as well as topamax. Patient educated on: diagnosis, medication risk/benefits and substance abuse Informed Consent: understands Reason for continued inpatient stay Substantial Risk for: harm to self Time Spent With Patient Time: Total time managing care of this patient today __30__ minutes.
[2023-02-17] MEDS: Ketorolac Tromethamine 30 MG/ML VIAL IM (16:39)
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
[2023-02-17] MEDS: Ondansetron ODT 4 MG TAB.RAPDIS TRANSLINGU (17:58)
[2023-02-17 20:30] VITALS: BP 148/78; PULSE 80; RESP 18; TEMP 36.4; O2SAT 98
[2023-02-17] MEDS: Topiramate 25 MG TABLET 50 MG PO (20:40)
[2023-02-17] MEDS: Ferrous Sulfate 324 MG TABLET.DR PO (20:40)
[2023-02-17] MEDS: Mirtazapine 15 MG TABLET PO (20:40)
[2023-02-17] MEDS: Zolpidem Tartrate 5 MG TABLET PO (20:40)
[2023-02-17] MEDS: Baclofen 10 MG TABLET PO (20:40)
[2023-02-17] MEDS: QUEtiapine Fumarate 400 MG TABLET PO (20:40)
[2023-02-17] MEDS: Atorvastatin Calcium 40 MG TABLET PO (20:40)
[2023-02-18] MEDS: oxyCODONE HCl Immed Release 5 MG TABLET PO ×2 (04:04→09:53)
[2023-02-18 06:00] VITALS: BP 115/72; PULSE 91; RESP 16; TEMP 36.4; O2SAT 97
[2023-02-18] MEDS: Omeprazole 20 MG CAPSULE.DR PO (06:37)
[2023-02-18] MEDS: Fluticasone Propionate 250 MCG BLST.W.DEV 2 PUFF INHALE ×2 (08:37→21:14)
[2023-02-18] MEDS: Nicotine 14 MG PATCH.TD24 TRANSDERMA (08:38)
[2023-02-18] MEDS: Baclofen 10 MG TABLET PO ×3 (08:39→21:02)
[2023-02-18] MEDS: clonazePAM 0.5 MG TABLET PO ×2 (08:39→21:02)
[2023-02-18] MEDS: QUEtiapine Fumarate 100 MG TABLET PO ×2 (08:39→21:02)
[2023-02-18] MEDS: Tamsulosin HCL 0.4 MG CAPSULE 0.8 MG PO (08:39)
[2023-02-18] MEDS: Venlafaxine HCl ER 75 MG CAP.ER.24H PO (08:39)
[2023-02-18] MEDS: VerapamiL HCL SR 120 MG TABLET.ER PO (08:39)
--- NOTE | 2023-02-18 10:59 | PM.EVENT ---
Event Note Date of Service: 02/18/23 Event Note: Reviewed note by my collegue. Review UA and CT abd/pelvis. Reviewed urology consult. Nothing to do in acute setting. COntinue with pain management prn and outpt follow up with urology. Time Spent With Patient Time: Total time managing care of this patient today ____ minutes.
[2023-02-18] MEDS: hydrOXYzine HCL 50 MG TABLET PO (11:46)
[2023-02-18] MEDS: QUEtiapine Fumarate 25 MG TABLET PO (11:46)
--- NOTE | 2023-02-18 13:23 | HO.PSYCHPN ---
Subjective Subjective Date of Service: 02/18/23 Reason For Visit: SI Subjective Notes: Conditional Voluntary Interim History: Patient was seen and discussed in rounds today. Records and plans were reviewed. He continues to be in a lot of pain from his multiple renal stones. He was tried on Toradol IM yesterday which made him vomit. This was discontinued and I increased his oxycodone to 10 mg. He has been little brighter in spite of the pain. He is med compliant. Eating adequately. He did sleep till 04:00. No other changes were made today Medication Compliance: Yes Side effects from medications: No Review of Systems Review of Systems Flank and leg pain secondary to renal calculi/multiple Yes all other systems are reviewed and are negative Diagnostics Vital Signs (24Hr): Vital Signs - 24 hr 02/17/23 20:30 02/18/23 06:00 Temperature 97.6 F 97.6 F Pulse Rate 80 91 Respiratory Rate 18 16 Blood Pressure 148/78 H 115/72 Pulse Oximetry 98 97 Oxygen Delivery Method Room Air Room Air BMI result Body Mass Index 21.7 Labs 02/13/23 02:03 02/14/23 08:57 Imaging Radiology Impressions: ITS Impressions Abdomen/Pelvis CT 02/16/23 14:13 IMPRESSION: There is a similar bilateral renal stone burden without evidence of obstructive uropathy compared to previous study of 04/06/2022. Fleischner guidelines were followed. Medications Medications Current Medications Acetaminophen (Acetaminophen 325 Mg Tablet) 650 mg PO Q6H PRN PRN Reason: Headache/Pain Mild Scale (1-3) Last Admin: 02/17/23 09:32 Dose: 650 mg Al Hydroxide/Mg Hydroxide (Magnesium Hydrox/Alum Hydrox 30 Ml Oral.Susp) 30 ml PO Q6H PRN PRN Reason: Heartburn/Nausea Albuterol Sulfate (Albuterol Sulfate 90 Mcg 8 Gm Inhaler) 2 puff INHALE Q4H PRN PRN Reason: Shortness Of Breath Or Wheezing Albuterol/Ipratropium (Albuterol/Iprat 2.5/0.5mg 3 Ml Ampul.Neb) 3 ml INHALE TID PRN PRN Reason: wheezing Atorvastatin Calcium (Atorvastatin Calcium 40 Mg Tablet) 40 mg PO BEDTIME [facility] Last Admin: 02/17/23 20:40 Dose: 40 mg Baclofen (Baclofen 10 Mg Tablet) 10 mg PO TID [facility] Last Admin: 02/18/23 08:39 Dose: 10 mg Clonazepam (Clonazepam 0.5 Mg Tablet) 0.5 mg PO BID [facility] Last Admin: 02/18/23 08:39 Dose: 0.5 mg Ferrous Sulfate (Ferrous Sulfate 324 Mg Tablet.) 324 mg PO BEDTIME [facility] Last Admin: 02/17/23 20:40 Dose: 324 mg Fluticasone Propionate (Fluticasone Propionate 250 Mcg Blst.W.Dev) 2 puff INHALE RBID [facility] Last Admin: 02/18/23 08:37 Dose: 2 puff Hydroxyzine HCl (Hydroxyzine Hcl 50 Mg Tablet) 50 mg PO Q6H PRN PRN Reason: Anxiety Last Admin: 02/18/23 11:46 Dose: 50 mg Ketorolac Tromethamine (Ketorolac Tromethamine 30 Mg/Ml Vial) 30 mg IM Q6H PRN PRN Reason: moderate, pain Last Admin: 02/17/23 16:39 Dose: 30 mg Magnesium Hydroxide (Milk Of Magnesia 30 Ml Oral.Susp) 30 ml PO DAILY PRN PRN Reason: Constipation Mirtazapine (Mirtazapine 15 Mg Tablet) 15 mg PO BEDTIME [facility] Last Admin: 02/17/23 20:40 Dose: 15 mg Nicotine (Nicotine 14 Mg Patch.Td24) 14 mg TRANSDERMA DAILY [facility] Last Admin: 02/18/23 08:38 Dose: 14 mg Omeprazole (Omeprazole 20 Mg Capsule.) 20 mg PO DAILY@0630 [facility] Last Admin: 02/18/23 06:37 Dose: 20 mg Oxycodone HCl (Oxycodone Hcl Immed Release 5 Mg Tablet) 5 mg PO Q6H PRN PRN Reason: Pain, Moderate(Pain Scale 4-6) Last Admin: 02/18/23 09:53 Dose: 5 mg Pharmacy Consult (Consult Rx Perform Med Rec) 1 each MISCELLANE ONCE PRN PRN Reason: Consult order Quetiapine Fumarate (Quetiapine Fumarate 100 Mg Tablet) 100 mg PO BID [facility] Last Admin: 02/18/23 08:39 Dose: 100 mg Quetiapine Fumarate (Quetiapine Fumarate 400 Mg Tablet) 400 mg PO BEDTIME [facility] Last Admin: 02/17/23 20:40 Dose: 400 mg Quetiapine Fumarate (Quetiapine Fumarate 25 Mg Tablet) 25 mg PO Q6H PRN PRN Reason: anxiety Last Admin: 02/18/23 11:46 Dose: 25 mg Tamsulosin HCl (Tamsulosin Hcl 0.4 Mg Capsule) 0.8 mg PO DAILY [facility] Last Admin: 02/18/23 08:39 Dose: 0.8 mg Topiramate (Topiramate 25 Mg Tablet) 50 mg PO BEDTIME [facility] Last Admin: 02/17/23 20:40 Dose: 50 mg Trazodone HCl (Trazodone Hcl 50 Mg Tablet) 50 mg PO BEDTIME PRN PRN Reason: Insomnia Venlafaxine HCl (Venlafaxine Hcl Er 75 Mg Cap.Er.24h) 75 mg PO DAILY [facility] Last Admin: 02/18/23 08:39 Dose: 75 mg Verapamil HCl (Verapamil Hcl Sr 120 Mg Tablet.Er) 120 mg PO DAILY [facility]; Protocol Last Admin: 02/18/23 08:39 Dose: 120 mg Zolpidem Tartrate (Zolpidem Tartrate 5 Mg Tablet) 5 mg PO BEDTIME [facility] Last Admin: 02/17/23 20:40 Dose: 5 mg Allergies Allergies Allergy/AdvReac Type Severity Reaction Status Date / Time ibuprofen Allergy Intermediate Stomach Verified 02/13/23 02:07 Upset penicillin V Allergy Intermediate rash Verified 02/13/23 02:07 Assessment & Plan Assessment & Plan (1) Bilateral nephrolithiasis: Status: Acute Code(s): N20.0 - Calculus of kidney (2) BPH (benign prostatic hyperplasia): Status: Acute Code(s): N40.0 - Benign prostatic hyperplasia without lower urinary tract symptoms Plan outpatient follow-up 02/18: Continue current regimen and plans. Discontinue IM Toradol and increase oxycodone to 10 mg q.6 p.r.n. Patient educated on: medication risk/benefits and therapeutic strategies Reason for continued inpatient stay Substantial Risk for: med/psych decompensation Time Spent With Patient Time: Total time managing care of this patient today ____ minutes.
[2023-02-18] MEDS: Acetaminophen 325 MG TABLET 650 MG PO ×2 (15:18→21:03)
[2023-02-18] MEDS: oxyCODONE HCl Immed Release 5 MG TABLET 10 MG PO ×2 (15:18→21:03)
[2023-02-18 20:55] VITALS: BP 118/70; PULSE 101; RESP 18; TEMP 36.2; O2SAT 96
[2023-02-18] MEDS: Atorvastatin Calcium 40 MG TABLET PO (21:02)
[2023-02-18] MEDS: Topiramate 25 MG TABLET 50 MG PO (21:02)
[2023-02-18] MEDS: QUEtiapine Fumarate 400 MG TABLET PO (21:02)
[2023-02-18] MEDS: Zolpidem Tartrate 5 MG TABLET PO (21:02)
[2023-02-18] MEDS: Mirtazapine 15 MG TABLET PO (21:02)
[2023-02-18] MEDS: Ferrous Sulfate 324 MG TABLET.DR PO (21:03)
[2023-02-18] MEDS: Milk of Magnesia 30 ML ORAL.SUSP PO (21:07)
[2023-02-19] MEDS: Omeprazole 20 MG CAPSULE.DR PO (06:17)
[2023-02-19 09:30] VITALS: BP 134/90; PULSE 78; RESP 18; TEMP 37; O2SAT 96
[2023-02-19] MEDS: Fluticasone Propionate 250 MCG BLST.W.DEV 2 PUFF INHALE ×2 (09:30→20:39)
[2023-02-19] MEDS: Nicotine 14 MG PATCH.TD24 TRANSDERMA (09:30)
[2023-02-19] MEDS: Tamsulosin HCL 0.4 MG CAPSULE 0.8 MG PO (09:31)
[2023-02-19] MEDS: Baclofen 10 MG TABLET PO ×3 (09:31→20:40)
[2023-02-19] MEDS: Venlafaxine HCl ER 75 MG CAP.ER.24H PO (09:31)
[2023-02-19] MEDS: QUEtiapine Fumarate 100 MG TABLET PO ×2 (09:31→20:41)
[2023-02-19] MEDS: VerapamiL HCL SR 120 MG TABLET.ER PO (09:31)
[2023-02-19] MEDS: oxyCODONE HCl Immed Release 5 MG TABLET 10 MG PO ×3 (09:35→23:12)
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
[2023-02-19] MEDS: bisacodyL 5 MG TABLET.DR 10 MG PO (09:57)
[2023-02-19] MEDS: Lactulose 20 GM/30 ML SOLUTION 30 GM PO ×2 (09:57→20:39)
[2023-02-19] MEDS: hydrOXYzine HCL 50 MG TABLET PO ×2 (13:43→20:41)
[2023-02-19] MEDS: QUEtiapine Fumarate 25 MG TABLET PO ×2 (13:43→23:44)
[2023-02-19 20:15] VITALS: BP 112/67; PULSE 92; RESP 18; TEMP 36.6; O2SAT 97
[2023-02-19] MEDS: Ferrous Sulfate 324 MG TABLET.DR PO (20:40)
[2023-02-19] MEDS: Mirtazapine 15 MG TABLET PO (20:40)
[2023-02-19] MEDS: Topiramate 25 MG TABLET 50 MG PO (20:40)
[2023-02-19] MEDS: QUEtiapine Fumarate 400 MG TABLET PO (20:41)
[2023-02-19] MEDS: Atorvastatin Calcium 40 MG TABLET PO (20:41)
[2023-02-20] MEDS: Omeprazole 20 MG CAPSULE.DR PO (06:47)
[2023-02-20 07:59] VITALS: BP 125/78; PULSE 96; TEMP 36.4; O2SAT 97
[2023-02-20] MEDS: Lactulose 20 GM/30 ML SOLUTION 30 GM PO ×2 (08:00→20:32)
[2023-02-20] MEDS: oxyCODONE HCl Immed Release 5 MG TABLET 10 MG PO ×3 (08:02→20:33)
[2023-02-20] MEDS: Venlafaxine HCl ER 75 MG CAP.ER.24H PO (08:03)
[2023-02-20] MEDS: Tamsulosin HCL 0.4 MG CAPSULE 0.8 MG PO (08:03)
[2023-02-20] MEDS: Baclofen 10 MG TABLET PO ×3 (08:03→20:33)
[2023-02-20] MEDS: QUEtiapine Fumarate 100 MG TABLET PO ×2 (08:04→20:34)
[2023-02-20] MEDS: Nicotine 14 MG PATCH.TD24 TRANSDERMA (08:04)
[2023-02-20] MEDS: Albuterol Sulfate 90 MCG 8 GM INHALER 2 PUFF INHALE (08:11)
[2023-02-20] MEDS: VerapamiL HCL SR 120 MG TABLET.ER PO (08:13)
--- NOTE | 2023-02-20 09:53 | HO.PSYCHPN ---
Subjective Subjective Date of Service: 02/20/23 Reason For Visit: SI Subjective Notes: Conditional Voluntary Interim History: Reviewed in team and Dr. Butt. Patient reports feeling depressed and suicidal today. Patient stated, I think about hurting myself sometimes because of my life. I cry along in my room. I'm scared I might do it if I go home . Patient reports auditory and visual hallucinations. Pt stated, I hear voices telling me to kill myself and I see things pass by . Denies HI. Medication Compliance: Yes Side effects from medications: No Attending Groups: Intermittent Review of Systems Constitutional: Reports as per HPI Eyes: Reports as per HPI Reports as per HPI Cardiovascular: Reports as per HPI Respiratory: Reports as per HPI Gastrointestinal: Reports as per HPI Genitourinary: Reports as per HPI Musculoskeletal: Reports as per HPI Skin/Breast: Reports as per HPI Reports as per HPI Psychiatric: Reports as per HPI Endocrine: Reports as per HPI Hematologic/Lymphatic: Reports as per HPI Allergic/Immunologic: Reports as per HPI Mental Status Exam Mental Status Exam Narrative: Pt is alert and oriented; behavior is cooperative and calm; dressed in casual attire; mood is described as depressed ; eye contact appropriate; Speech is normal rate, volume and prosody and not pressured; no psychomotor agitation/retardation present; thought process is organized; Thought content is on tx; otherwise pertinent to relevant topics and without any delusional content, paranoid ideations or grandiosity; denies HI. Pt reports suicidal ideation with no plan. Reports auditory and visual hallucinations. Patients insight and judgment are poor. Diagnostics Vital Signs (24Hr): Vital Signs - 24 hr 02/19/23 20:15 02/20/23 07:59 Temperature 97.8 F 97.6 F Pulse Rate 92 96 Respiratory Rate 18 Blood Pressure 112/67 125/78 Pulse Oximetry 97 97 Oxygen Delivery Method Room Air Room Air BMI result Body Mass Index 21.7 Labs 02/13/23 02:03 02/14/23 08:57 Imaging Radiology Impressions: ITS Impressions Abdomen/Pelvis CT 02/16/23 14:13 IMPRESSION: There is a similar bilateral renal stone burden without evidence of obstructive uropathy compared to previous study of 04/06/2022. Fleischner guidelines were followed. Medications Medications Current Medications Acetaminophen (Acetaminophen 325 Mg Tablet) 650 mg PO Q6H PRN PRN Reason: Headache/Pain Mild Scale (1-3) Last Admin: 02/18/23 21:03 Dose: 650 mg Al Hydroxide/Mg Hydroxide (Magnesium Hydrox/Alum Hydrox 30 Ml Oral.Susp) 30 ml PO Q6H PRN PRN Reason: Heartburn/Nausea Albuterol Sulfate (Albuterol Sulfate 90 Mcg 8 Gm Inhaler) 2 puff INHALE Q4H PRN PRN Reason: Shortness Of Breath Or Wheezing Last Admin: 02/20/23 08:11 Dose: 2 puff Albuterol/Ipratropium (Albuterol/Iprat 2.5/0.5mg 3 Ml Ampul.Neb) 3 ml INHALE TID PRN PRN Reason: wheezing Atorvastatin Calcium (Atorvastatin Calcium 40 Mg Tablet) 40 mg PO BEDTIME [facility] Last Admin: 02/19/23 20:41 Dose: 40 mg Baclofen (Baclofen 10 Mg Tablet) 10 mg PO TID [facility] Last Admin: 02/20/23 08:03 Dose: 10 mg Ferrous Sulfate (Ferrous Sulfate 324 Mg Tablet.) 324 mg PO BEDTIME [facility] Last Admin: 02/19/23 20:40 Dose: 324 mg Fluticasone Propionate (Fluticasone Propionate 250 Mcg Blst.W.Dev) 2 puff INHALE RBID [facility] Last Admin: 02/20/23 08:05 Dose: Not Given Hydroxyzine HCl (Hydroxyzine Hcl 50 Mg Tablet) 50 mg PO Q6H PRN PRN Reason: Anxiety Last Admin: 02/19/23 20:41 Dose: 50 mg Lactulose (Lactulose 20 Gm/30 Ml Solution) 30 gm PO BID [facility] Last Admin: 02/20/23 08:00 Dose: 30 gm Magnesium Hydroxide (Milk Of Magnesia 30 Ml Oral.Susp) 30 ml PO DAILY PRN PRN Reason: Constipation Last Admin: 02/18/23 21:07 Dose: 30 ml Mirtazapine (Mirtazapine 15 Mg Tablet) 15 mg PO BEDTIME [facility] Last Admin: 02/19/23 20:40 Dose: 15 mg Nicotine (Nicotine 14 Mg Patch.Td24) 14 mg TRANSDERMA DAILY [facility] Last Admin: 02/20/23 08:04 Dose: 14 mg Omeprazole (Omeprazole 20 Mg Capsule.Dr) 20 mg PO DAILY@0630 [facility] Last Admin: 02/20/23 06:47 Dose: 20 mg Oxycodone HCl (Oxycodone Hcl Immed Release 5 Mg Tablet) 10 mg PO Q6H PRN PRN Reason: Pain, Moderate(Pain Scale 4-6) Last Admin: 02/20/23 08:02 Dose: 10 mg Pharmacy Consult (Consult Rx Perform Med Rec) 1 each MISCELLANE ONCE PRN PRN Reason: Consult order Quetiapine Fumarate (Quetiapine Fumarate 100 Mg Tablet) 100 mg PO BID [facility] Last Admin: 02/20/23 08:04 Dose: 100 mg Quetiapine Fumarate (Quetiapine Fumarate 400 Mg Tablet) 400 mg PO BEDTIME [facility] Last Admin: 02/19/23 20:41 Dose: 400 mg Quetiapine Fumarate (Quetiapine Fumarate 25 Mg Tablet) 25 mg PO Q6H PRN PRN Reason: anxiety Last Admin: 02/19/23 23:44 Dose: 25 mg Tamsulosin HCl (Tamsulosin Hcl 0.4 Mg Capsule) 0.8 mg PO DAILY [facility] Last Admin: 02/20/23 08:03 Dose: 0.8 mg Topiramate (Topiramate 25 Mg Tablet) 50 mg PO BEDTIME [facility] Last Admin: 02/19/23 20:40 Dose: 50 mg Trazodone HCl (Trazodone Hcl 50 Mg Tablet) 50 mg PO BEDTIME PRN PRN Reason: Insomnia Venlafaxine HCl (Venlafaxine Hcl Er 75 Mg Cap.Er.24h) 75 mg PO DAILY [facility] Last Admin: 02/20/23 08:03 Dose: 75 mg Verapamil HCl (Verapamil Hcl Sr 120 Mg Tablet.Er) 120 mg PO DAILY [facility]; Protocol Last Admin: 02/20/23 08:13 Dose: 120 mg Allergies Allergies Allergy/AdvReac Type Severity Reaction Status Date / Time ibuprofen Allergy Intermediate Stomach Verified 02/13/23 02:07 Upset penicillin V Allergy Intermediate rash Verified 02/13/23 02:07 Assessment & Plan Assessment & Plan (1) Bilateral nephrolithiasis: Status: Acute Code(s): N20.0 - Calculus of kidney (2) BPH (benign prostatic hyperplasia): Status: Acute Code(s): N40.0 - Benign prostatic hyperplasia without lower urinary tract symptoms Plan Patient is a 57 year old male with hx of MDD and cocaine use d/o who has a hx of multiple inpatient admissions at [facility] [place] that presented to [facility] [place] [facility] via ambulance reporting chest and abdominal pain and poor appetite with suicidal ideation for the last 5 days d/t increase depressive symptoms. Plan: CV 15 minute safety checks Referral to treatment program Continue home medications Referral for visiting RN for medication compliance. 02/15 continue tx. repeatUA, but concern of kidney stones. 02/16: Patient reports feeling depressed and anxious today. Patient stated, I have suicidal thoughts. I feel like my life isn't worth living because my relationship with my is broken and my son is in [facility] . Patient reports auditory hallucinations of voices telling me to kill myself . Patient stated, I want to stay for weeks because I feel safe here . Patient C/O pain when urinating, hx of kidney stones; hospitalist consult ordered, along with Tramadol PO. 02/17: urologist recommends follow up outpatient in about one month since kidney stones are non obstructing. Pain better manage with toradol, rather than opiod medications. d/c oxycodone. Start toradol 30mg IM q6h prn pain. also started pt on baclofen, which may help decrease cocaine cravings as well as topamax. 02/18: Continue current regimen and plans. Discontinue IM Toradol and increase oxycodone to 10 mg q.6 p.r.n. 02/19: Continue current regimen and plans. Constipation was addressed today. 02/20: Patient reports feeling depressed and suicidal today. Patient stated, I think about hurting myself sometimes because of my life. I cry along in my room. I'm scared I might do it if I go home . Patient reports auditory and visual hallucinations. Pt stated, I hear voices telling me to kill myself and I see things pass by . Denies HI. Patient educated on: diagnosis, medication risk/benefits and therapeutic strategies Informed Consent: understands Reason for continued inpatient stay Substantial Risk for: harm to self and med/psych decompensation Time Spent With Patient Time: Total time managing care of this patient today _30___ minutes.
[2023-02-20] MEDS: QUEtiapine Fumarate 25 MG TABLET PO (12:22)
[2023-02-20 19:45] VITALS: BP 126/67; PULSE 100; RESP 18; TEMP 36.6; O2SAT 97
[2023-02-20] MEDS: Fluticasone Propionate 250 MCG BLST.W.DEV 2 PUFF INHALE (20:33)
[2023-02-20] MEDS: Topiramate 25 MG TABLET 50 MG PO (20:34)
[2023-02-20] MEDS: QUEtiapine Fumarate 400 MG TABLET PO (20:34)
[2023-02-20] MEDS: Mirtazapine 15 MG TABLET PO (20:34)
[2023-02-20] MEDS: Ferrous Sulfate 324 MG TABLET.DR PO (20:34)
[2023-02-20] MEDS: Atorvastatin Calcium 40 MG TABLET PO (20:34)
[2023-02-21] MEDS: Omeprazole 20 MG CAPSULE.DR PO (06:04)
[2023-02-21] MEDS: oxyCODONE HCl Immed Release 5 MG TABLET 10 MG PO ×3 (06:04→18:09)
[2023-02-21 08:00] VITALS: BP 124/76; PULSE 91; TEMP 36.3; O2SAT 97
[2023-02-21] MEDS: VerapamiL HCL SR 120 MG TABLET.ER PO (08:10)
[2023-02-21] MEDS: Venlafaxine HCl ER 75 MG CAP.ER.24H PO (08:11)
[2023-02-21] MEDS: Albuterol Sulfate 90 MCG 8 GM INHALER 2 PUFF INHALE (08:11)
[2023-02-21] MEDS: Baclofen 10 MG TABLET PO ×3 (08:11→20:28)
[2023-02-21] MEDS: Tamsulosin HCL 0.4 MG CAPSULE 0.8 MG PO (08:11)
[2023-02-21] MEDS: QUEtiapine Fumarate 100 MG TABLET PO ×2 (08:11→20:28)
[2023-02-21] MEDS: Nicotine 14 MG PATCH.TD24 TRANSDERMA (08:12)
--- NOTE | 2023-02-21 09:58 | HO.PSYCHPN ---
Subjective Subjective Date of Service: 02/21/23 Reason For Visit: SI Subjective Notes: Conditional Voluntary Interim History: Reviewed in team and Dr. Butt. medication aid present. Pt continues to feel depressed. Pt stated, I woke up wanting to . I'm still thinking about my son who's in senior living . Continues to have auditory hallucinations telling him to hurt himself. Patient stated, if I had someone to clean my house maybe I wouldn't be suicidal . Pt is hoping to have a visiting nurse and get into a program before discharge. Medication Compliance: Yes Side effects from medications: No Attending Groups: Intermittent Review of Systems Review of Systems Flank and upper leg pain Yes all other systems are reviewed and are negative Constitutional: Reports as per HPI Eyes: Reports as per HPI Reports as per HPI Cardiovascular: Reports as per HPI Respiratory: Reports as per HPI Gastrointestinal: Reports as per HPI Genitourinary: Reports as per HPI Musculoskeletal: Reports as per HPI Skin/Breast: Reports as per HPI Reports as per HPI Psychiatric: Reports as per HPI Endocrine: Reports as per HPI Hematologic/Lymphatic: Reports as per HPI Allergic/Immunologic: Reports as per HPI Mental Status Exam Mental Status Exam Narrative: Pt is alert and oriented; behavior is cooperative and calm; dressed in casual attire; mood is described as depressed ; eye contact appropriate; Speech is normal rate, volume and prosody and not pressured; no psychomotor agitation/retardation present; thought process is organized; Thought content is on tx; otherwise pertinent to relevant topics and without any delusional content, paranoid ideations or grandiosity; denies HI. Pt reports suicidal ideation with no plan. Reports auditory hallucinations. Denies VH. Patients insight and judgment are poor. Diagnostics Vital Signs (24Hr): Vital Signs - 24 hr 02/20/23 19:45 02/21/23 08:00 Temperature 97.8 F 97.3 F Pulse Rate 100 91 Respiratory Rate 18 Blood Pressure 126/67 124/76 Pulse Oximetry 97 97 Oxygen Delivery Method Room Air Room Air BMI result Body Mass Index 21.7 Labs 02/13/23 02:03 02/14/23 08:57 Imaging Radiology Impressions: ITS Impressions Abdomen/Pelvis CT 02/16/23 14:13 IMPRESSION: There is a similar bilateral renal stone burden without evidence of obstructive uropathy compared to previous study of 04/06/2022. Fleischner guidelines were followed. Medications Medications Current Medications Acetaminophen (Acetaminophen 325 Mg Tablet) 650 mg PO Q6H PRN PRN Reason: Headache/Pain Mild Scale (1-3) Last Admin: 02/18/23 21:03 Dose: 650 mg Al Hydroxide/Mg Hydroxide (Magnesium Hydrox/Alum Hydrox 30 Ml Oral.Susp) 30 ml PO Q6H PRN PRN Reason: Heartburn/Nausea Albuterol Sulfate (Albuterol Sulfate 90 Mcg 8 Gm Inhaler) 2 puff INHALE Q4H PRN PRN Reason: Shortness Of Breath Or Wheezing Last Admin: 02/21/23 08:11 Dose: 2 puff Atorvastatin Calcium (Atorvastatin Calcium 40 Mg Tablet) 40 mg PO BEDTIME [facility] Last Admin: 02/20/23 20:34 Dose: 40 mg Baclofen (Baclofen 10 Mg Tablet) 10 mg PO TID [facility] Last Admin: 02/21/23 08:11 Dose: 10 mg Ferrous Sulfate (Ferrous Sulfate 324 Mg Tablet.) 324 mg PO BEDTIME [facility] Last Admin: 02/20/23 20:34 Dose: 324 mg Fluticasone Propionate (Fluticasone Propionate 250 Mcg Blst.W.Dev) 2 puff INHALE RBID [facility] Last Admin: 02/21/23 08:12 Dose: Not Given Hydroxyzine HCl (Hydroxyzine Hcl 50 Mg Tablet) 50 mg PO Q6H PRN PRN Reason: Anxiety Last Admin: 02/19/23 20:41 Dose: 50 mg Lactulose (Lactulose 20 Gm/30 Ml Solution) 30 gm PO BID [facility] Last Admin: 02/21/23 09:17 Dose: Not Given Magnesium Hydroxide (Milk Of Magnesia 30 Ml Oral.Susp) 30 ml PO DAILY PRN PRN Reason: Constipation Last Admin: 02/18/23 21:07 Dose: 30 ml Mirtazapine (Mirtazapine 15 Mg Tablet) 15 mg PO BEDTIME [facility] Last Admin: 02/20/23 20:34 Dose: 15 mg Nicotine (Nicotine 14 Mg Patch.Td24) 14 mg TRANSDERMA DAILY [facility] Last Admin: 02/21/23 08:12 Dose: 14 mg Omeprazole (Omeprazole 20 Mg Capsule.) 20 mg PO DAILY@0630 [facility] Last Admin: 02/21/23 06:04 Dose: 20 mg Oxycodone HCl (Oxycodone Hcl Immed Release 5 Mg Tablet) 10 mg PO Q6H PRN PRN Reason: Pain, Moderate(Pain Scale 4-6) Last Admin: 02/21/23 06:04 Dose: 10 mg Pharmacy Consult (Consult Rx Perform Med Rec) 1 each MISCELLANE ONCE PRN PRN Reason: Consult order Quetiapine Fumarate (Quetiapine Fumarate 100 Mg Tablet) 100 mg PO BID [facility] Last Admin: 02/21/23 08:11 Dose: 100 mg Quetiapine Fumarate (Quetiapine Fumarate 400 Mg Tablet) 400 mg PO BEDTIME [facility] Last Admin: 02/20/23 20:34 Dose: 400 mg Quetiapine Fumarate (Quetiapine Fumarate 25 Mg Tablet) 25 mg PO Q6H PRN PRN Reason: anxiety Last Admin: 02/20/23 12:22 Dose: 25 mg Tamsulosin HCl (Tamsulosin Hcl 0.4 Mg Capsule) 0.8 mg PO DAILY [facility] Last Admin: 02/21/23 08:11 Dose: 0.8 mg Topiramate (Topiramate 25 Mg Tablet) 50 mg PO BEDTIME [facility] Last Admin: 02/20/23 20:34 Dose: 50 mg Trazodone HCl (Trazodone Hcl 50 Mg Tablet) 50 mg PO BEDTIME PRN PRN Reason: Insomnia Venlafaxine HCl (Venlafaxine Hcl Er 75 Mg Cap.Er.24h) 75 mg PO DAILY [facility] Last Admin: 02/21/23 08:11 Dose: 75 mg Verapamil HCl (Verapamil Hcl Sr 120 Mg Tablet.Er) 120 mg PO DAILY [facility]; Protocol Last Admin: 02/21/23 08:10 Dose: 120 mg Allergies Allergies Allergy/AdvReac Type Severity Reaction Status Date / Time ibuprofen Allergy Intermediate Stomach Verified 02/13/23 02:07 Upset penicillin V Allergy Intermediate rash Verified 02/13/23 02:07 Assessment & Plan Assessment & Plan (1) Bilateral nephrolithiasis: Status: Acute Code(s): N20.0 - Calculus of kidney (2) BPH (benign prostatic hyperplasia): Status: Acute Code(s): N40.0 - Benign prostatic hyperplasia without lower urinary tract symptoms Plan Patient is a 57 year old male with hx of MDD and cocaine use d/o who has a hx of multiple inpatient admissions at [facility] that presented to [facility] via ambulance reporting chest and abdominal pain and poor appetite with suicidal ideation for the last 5 days d/t increase depressive symptoms. Plan: CV 15 minute safety checks Referral to treatment program Continue home medications Referral for visiting RN for medication compliance. 02/15 continue tx. repeatUA, but concern of kidney stones. 02/16: Patient reports feeling depressed and anxious today. Patient stated, I have suicidal thoughts. I feel like my life isn't worth living because my relationship with my is broken and my son is in [facility] . Patient reports auditory hallucinations of voices telling me to kill myself . Patient stated, I want to stay for weeks because I feel safe here . Patient C/O pain when urinating, hx of kidney stones; hospitalist consult ordered, along with Tramadol PO. 02/17: urologist recommends follow up outpatient in about one month since kidney stones are non obstructing. Pain better manage with toradol, rather than opiod medications. d/c oxycodone. Start toradol 30mg IM q6h prn pain. also started pt on baclofen, which may help decrease cocaine cravings as well as topamax. 02/18: Continue current regimen and plans. Discontinue IM Toradol and increase oxycodone to 10 mg q.6 p.r.n. 02/19: Continue current regimen and plans. Constipation was addressed today. 02/20: Patient reports feeling depressed and suicidal today. Patient stated, I think about hurting myself sometimes because of my life. I cry along in my room. I'm scared I might do it if I go home . Patient reports auditory and visual hallucinations. Pt stated, I hear voices telling me to kill myself and I see things pass by . Denies HI. 02/21: Pt continues to feel depressed. Pt stated, I woke up wanting to . Continues to have auditory hallucinations telling him to hurt himself. Patient stated, if I had someone to clean my house maybe I wouldn't be suicidal . Pt is hoping to have a visiting nurse and get into a program before discharge. Continue tx plan. Patient educated on: diagnosis, medication risk/benefits, substance abuse and therapeutic strategies Informed Consent: understands Reason for continued inpatient stay Substantial Risk for: harm to self and med/psych decompensation Time Spent With Patient Time: Total time managing care of this patient today __30__ minutes.
[2023-02-21] MEDS: QUEtiapine Fumarate 25 MG TABLET PO (12:04)
[2023-02-21 19:50] VITALS: BP 117/60; PULSE 93; RESP 16; TEMP 36.6; O2SAT 100
[2023-02-21] MEDS: Topiramate 25 MG TABLET 50 MG PO (20:27)
[2023-02-21] MEDS: QUEtiapine Fumarate 400 MG TABLET PO (20:27)
[2023-02-21] MEDS: Atorvastatin Calcium 40 MG TABLET PO (20:28)
[2023-02-21] MEDS: Ferrous Sulfate 324 MG TABLET.DR PO (20:28)
[2023-02-21] MEDS: Mirtazapine 15 MG TABLET PO (20:29)
[2023-02-21] MEDS: Fluticasone Propionate 250 MCG BLST.W.DEV 2 PUFF INHALE (22:02)
[2023-02-21] MEDS: hydrOXYzine HCL 50 MG TABLET PO (22:03)
[2023-02-22] MEDS: Omeprazole 20 MG CAPSULE.DR PO (06:55)
[2023-02-22] MEDS: QUEtiapine Fumarate 100 MG TABLET PO ×2 (08:24→20:58)
[2023-02-22] MEDS: Baclofen 10 MG TABLET PO ×3 (08:24→20:58)
[2023-02-22] MEDS: Fluticasone Propionate 250 MCG BLST.W.DEV 2 PUFF INHALE ×2 (08:25→21:02)
[2023-02-22] MEDS: Venlafaxine HCl ER 75 MG CAP.ER.24H PO (08:25)
[2023-02-22] MEDS: VerapamiL HCL SR 120 MG TABLET.ER PO (08:25)
[2023-02-22] MEDS: Tamsulosin HCL 0.4 MG CAPSULE 0.8 MG PO (08:25)
[2023-02-22] MEDS: Nicotine 14 MG PATCH.TD24 TRANSDERMA (08:26)
[2023-02-22] MEDS: Lactulose 20 GM/30 ML SOLUTION 30 GM PO ×2 (08:27→21:00)
[2023-02-22 08:31] VITALS: BP 125/64; PULSE 83; RESP 20; TEMP 36.7; O2SAT 96
[2023-02-22] MEDS: oxyCODONE HCl Immed Release 5 MG TABLET 10 MG PO ×2 (08:54→15:06)
--- NOTE | 2023-02-22 09:55 | HO.PSYCHPN ---
Subjective Subjective Date of Service: 02/22/23 Reason For Visit: SI Subjective Notes: Conditional Voluntary Interim History: Reviewed in team and Dr. Butt. 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 Patient reports feeling good today. Patient stated, I spoke with my sister and she told me to keep pushing, which I'm going to do. I'm going to focus on myself. My son is in skilled nursing and he needs to learn his lesson . Patient reports he has been more positive today. Patient stated, I'm not suicidal. I'm feeling more positive and thinking about the future. Everyone has their ups and downs. I'm feeling good about going to respite because I know I'll have support . Medication Compliance: Yes Side effects from medications: No Attending Groups: No Review of Systems Review of Systems Flank and upper leg pain Yes all other systems are reviewed and are negative Constitutional: Reports as per HPI Eyes: Reports as per HPI Reports as per HPI Cardiovascular: Reports as per HPI Respiratory: Reports as per HPI Gastrointestinal: Reports as per HPI Genitourinary: Reports as per HPI Musculoskeletal: Reports as per HPI Skin/Breast: Reports as per HPI Reports as per HPI Psychiatric: Reports as per HPI Endocrine: Reports as per HPI Hematologic/Lymphatic: Reports as per HPI Allergic/Immunologic: Reports as per HPI Mental Status Exam Mental Status Exam Narrative: Pt is alert and oriented; behavior is cooperative and calm; dressed in casual attire; mood is described as good ; eye contact appropriate; Speech is normal rate, volume and prosody and not pressured; no psychomotor agitation/retardation present; thought process is organized; Thought content is on tx; otherwise pertinent to relevant topics and without any delusional content, paranoid ideations or grandiosity; denies SI/HI/VH/AH. Patients insight and judgment are fair. Diagnostics Vital Signs (24Hr): Vital Signs - 24 hr 02/21/23 19:50 02/22/23 08:31 Temperature 98 F 98.0 F Pulse Rate 93 83 Respiratory Rate 16 20 Blood Pressure 117/60 125/64 Pulse Oximetry 100 96 Oxygen Delivery Method Room Air Room Air BMI result Body Mass Index 21.7 Labs 02/13/23 02:03 02/14/23 08:57 Imaging Radiology Impressions: ITS Impressions Abdomen/Pelvis CT 02/16/23 14:13 IMPRESSION: There is a similar bilateral renal stone burden without evidence of obstructive uropathy compared to previous study of 04/06/2022. Fleischner guidelines were followed. Medications Medications Current Medications Acetaminophen (Acetaminophen 325 Mg Tablet) 650 mg PO Q6H PRN PRN Reason: Headache/Pain Mild Scale (1-3) Last Admin: 02/18/23 21:03 Dose: 650 mg Al Hydroxide/Mg Hydroxide (Magnesium Hydrox/Alum Hydrox 30 Ml Oral.Susp) 30 ml PO Q6H PRN PRN Reason: Heartburn/Nausea Albuterol Sulfate (Albuterol Sulfate 90 Mcg 8 Gm Inhaler) 2 puff INHALE Q4H PRN PRN Reason: Shortness Of Breath Or Wheezing Last Admin: 02/21/23 08:11 Dose: 2 puff Atorvastatin Calcium (Atorvastatin Calcium 40 Mg Tablet) 40 mg PO BEDTIME [facility] Last Admin: 02/21/23 20:28 Dose: 40 mg Baclofen (Baclofen 10 Mg Tablet) 10 mg PO TID [facility] Last Admin: 02/22/23 08:24 Dose: 10 mg Ferrous Sulfate (Ferrous Sulfate 324 Mg Tablet.) 324 mg PO BEDTIME [facility] Last Admin: 02/21/23 20:28 Dose: 324 mg Fluticasone Propionate (Fluticasone Propionate 250 Mcg Blst.W.Dev) 2 puff INHALE RBID [facility] Last Admin: 02/22/23 08:25 Dose: 2 puff Hydroxyzine HCl (Hydroxyzine Hcl 50 Mg Tablet) 50 mg PO Q6H PRN PRN Reason: Anxiety Last Admin: 02/21/23 22:03 Dose: 50 mg Lactulose (Lactulose 20 Gm/30 Ml Solution) 30 gm PO BID [facility] Last Admin: 02/22/23 08:27 Dose: 30 gm Magnesium Hydroxide (Milk Of Magnesia 30 Ml Oral.Susp) 30 ml PO DAILY PRN PRN Reason: Constipation Last Admin: 02/18/23 21:07 Dose: 30 ml Mirtazapine (Mirtazapine 15 Mg Tablet) 15 mg PO BEDTIME [facility] Last Admin: 02/21/23 20:29 Dose: 15 mg Nicotine (Nicotine 14 Mg Patch.Td24) 14 mg TRANSDERMA DAILY [facility] Last Admin: 02/22/23 08:26 Dose: 14 mg Omeprazole (Omeprazole 20 Mg Capsule.) 20 mg PO DAILY@0630 [facility] Last Admin: 08/09/23 06:55 Dose: 20 mg Oxycodone HCl (Oxycodone Hcl Immed Release 5 Mg Tablet) 10 mg PO Q6H PRN PRN Reason: Pain, Moderate(Pain Scale 4-6) Last Admin: 02/22/23 08:54 Dose: 10 mg Pharmacy Consult (Consult Rx Perform Med Rec) 1 each MISCELLANE ONCE PRN PRN Reason: Consult order Quetiapine Fumarate (Quetiapine Fumarate 100 Mg Tablet) 100 mg PO BID [facility] Last Admin: 02/22/23 08:24 Dose: 100 mg Quetiapine Fumarate (Quetiapine Fumarate 400 Mg Tablet) 400 mg PO BEDTIME [facility] Last Admin: 02/21/23 20:27 Dose: 400 mg Quetiapine Fumarate (Quetiapine Fumarate 25 Mg Tablet) 25 mg PO Q6H PRN PRN Reason: anxiety Last Admin: 02/21/23 12:04 Dose: 25 mg Tamsulosin HCl (Tamsulosin Hcl 0.4 Mg Capsule) 0.8 mg PO DAILY [facility] Last Admin: 02/22/23 08:25 Dose: 0.8 mg Topiramate (Topiramate 25 Mg Tablet) 50 mg PO BEDTIME [facility] Last Admin: 02/21/23 20:27 Dose: 50 mg Trazodone HCl (Trazodone Hcl 50 Mg Tablet) 50 mg PO BEDTIME PRN PRN Reason: Insomnia Venlafaxine HCl (Venlafaxine Hcl Er 75 Mg Cap.Er.24h) 75 mg PO DAILY [facility] Last Admin: 02/22/23 08:25 Dose: 75 mg Verapamil HCl (Verapamil Hcl Sr 120 Mg Tablet.Er) 120 mg PO DAILY [facility]; Protocol Last Admin: 02/22/23 08:25 Dose: 120 mg Allergies Allergies Allergy/AdvReac Type Severity Reaction Status Date / Time ibuprofen Allergy Intermediate Stomach Verified 02/13/23 02:07 Upset penicillin V Allergy Intermediate rash Verified 02/13/23 02:07 Assessment & Plan Assessment & Plan (1) Bilateral nephrolithiasis: Status: Acute Code(s): N20.0 - Calculus of kidney (2) BPH (benign prostatic hyperplasia): Status: Acute Code(s): N40.0 - Benign prostatic hyperplasia without lower urinary tract symptoms Plan Patient is a 57 year old male with hx of MDD and cocaine use d/o who has a hx of multiple inpatient admissions at [facility] that presented to [facility] via ambulance reporting chest and abdominal pain and poor appetite with suicidal ideation for the last 5 days d/t increase depressive symptoms. Plan: CV 15 minute safety checks Referral to treatment program Continue home medications Referral for visiting RN for medication compliance. 02/15 continue tx. repeatUA, but concern of kidney stones. 02/16: Patient reports feeling depressed and anxious today. Patient stated, I have suicidal thoughts. I feel like my life isn't worth living because my relationship with my is broken and my son is in group home . Patient reports auditory hallucinations of voices telling me to kill myself . Patient stated, I want to stay for weeks because I feel safe here . Patient C/O pain when urinating, hx of kidney stones; hospitalist consult ordered, along with Tramadol PO. 02/17: urologist recommends follow up outpatient in about one month since kidney stones are non obstructing. Pain better manage with toradol, rather than opiod medications. d/c oxycodone. Start toradol 30mg IM q6h prn pain. also started pt on baclofen, which may help decrease cocaine cravings as well as topamax. 02/18: Continue current regimen and plans. Discontinue IM Toradol and increase oxycodone to 10 mg q.6 p.r.n. 02/19: Continue current regimen and plans. Constipation was addressed today. 02/20: Patient reports feeling depressed and suicidal today. Patient stated, I think about hurting myself sometimes because of my life. I cry along in my room. I'm scared I might do it if I go home . Patient reports auditory and visual hallucinations. Pt stated, I hear voices telling me to kill myself and I see things pass by . Denies HI. 02/21: Pt continues to feel depressed. Pt stated, I woke up wanting to . Continues to have auditory hallucinations telling him to hurt himself. Patient stated, if I had someone to clean my house maybe I wouldn't be suicidal . Pt is hoping to have a visiting nurse and get into a program before discharge. Continue tx plan. 02/22: Patient reports feeling good today. Patient stated, I spoke with my sister and she told me to keep pushing, which I'm going to do. I'm going to focus on myself. My son is in skilled nursing and he needs to learn his lesson . Patient reports he has been more positive today. Patient stated, I'm not suicidal. I'm feeling more positive and thinking about the future. Everyone has their ups and downs. I'm feeling good about going to respite because I know I'll have support . Pt to discharge either tomorrow or Monday; depending on when respite has an available bed for him. Continue tx plan. Patient educated on: diagnosis, medication risk/benefits, substance abuse and therapeutic strategies Informed Consent: understands Reason for continued inpatient stay Substantial Risk for: med/psych decompensation Time Spent With Patient Time: Total time managing care of this patient today _30___ minutes.
[2023-02-22] MEDS: clonazePAM 0.5 MG TABLET PO ×2 (12:04→20:58)
[2023-02-22] MEDS: QUEtiapine Fumarate 25 MG TABLET PO (18:51)
[2023-02-22] MEDS: hydrOXYzine HCL 50 MG TABLET PO (18:51)
[2023-02-22 20:50] VITALS: BP 135/70; PULSE 88; RESP 18; TEMP 36.4; O2SAT 96
[2023-02-22] MEDS: Zolpidem Tartrate 5 MG TABLET PO (20:57)
[2023-02-22] MEDS: Topiramate 25 MG TABLET 50 MG PO (20:57)
[2023-02-22] MEDS: Atorvastatin Calcium 40 MG TABLET PO (20:58)
[2023-02-22] MEDS: QUEtiapine Fumarate 400 MG TABLET PO (20:58)
[2023-02-22] MEDS: Mirtazapine 15 MG TABLET PO (20:58)
[2023-02-22] MEDS: Ferrous Sulfate 324 MG TABLET.DR PO (20:58)
[2023-02-22] MEDS: oxyCODONE HCl Immed Release 5 MG TABLET PO (21:06)
[2023-02-22] MEDS: Acetaminophen 325 MG TABLET 650 MG PO (21:06)
[2023-02-22] MEDS: Ammonium Lactate 12 % Lotion 226 GM BOTTLE 1 APPL TOPICAL (21:28)
[2023-02-23] MEDS: oxyCODONE HCl Immed Release 5 MG TABLET PO ×3 (03:49→21:09)
[2023-02-23] MEDS: hydrOXYzine HCL 50 MG TABLET PO (03:49)
[2023-02-23] MEDS: Albuterol Sulfate 90 MCG 8 GM INHALER 2 PUFF INHALE ×2 (03:50→08:34)
[2023-02-23 07:00] VITALS: BMI 22.5
[2023-02-23 08:00] VITALS: BP 112/67; PULSE 86; RESP 16; TEMP 36.7; O2SAT 96
[2023-02-23] MEDS: Nicotine 14 MG PATCH.TD24 TRANSDERMA (08:14)
[2023-02-23] MEDS: VerapamiL HCL SR 120 MG TABLET.ER PO (08:15)
[2023-02-23] MEDS: Tamsulosin HCL 0.4 MG CAPSULE 0.8 MG PO (08:15)
[2023-02-23] MEDS: Omeprazole 20 MG CAPSULE.DR PO (08:15)
[2023-02-23] MEDS: QUEtiapine Fumarate 100 MG TABLET PO ×2 (08:15→21:08)
[2023-02-23] MEDS: clonazePAM 0.5 MG TABLET PO ×2 (08:15→21:08)
[2023-02-23] MEDS: Venlafaxine HCl ER 75 MG CAP.ER.24H PO (08:15)
[2023-02-23] MEDS: Baclofen 10 MG TABLET PO ×3 (08:16→21:08)
[2023-02-23] MEDS: Fluticasone Propionate 250 MCG BLST.W.DEV 2 PUFF INHALE ×2 (08:33→21:13)
[2023-02-23] MEDS: Lactulose 20 GM/30 ML SOLUTION 30 GM PO (09:43)
--- NOTE | 2023-02-23 14:19 | P.PNPSI_ITS ---
Subjective Subjective Date of Service: 02/23/23 Reason For Visit: SI Subjective Notes: Conditional Voluntary Interim History: Reviewed in team and Dr. Butt. 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 Patient reports feeling good today. Patient stated, I'm a little nervous about leaving here because I want to continue feeling as good as I do here. I don't feel suicidal. I want to see my grandkids get older . Patient reports he is looking forward to discharge and plans on following up with her outpatient providers. Denies SI/HI/VH/AH. Medication Compliance: Yes Side effects from medications: No Attending Groups: Intermittent Review of Systems Review of Systems Flank and upper leg pain Constitutional: Reports as per HPI Eyes: Reports as per HPI Reports as per HPI Cardiovascular: Reports as per HPI Respiratory: Reports as per HPI Gastrointestinal: Reports as per HPI Genitourinary: Reports as per HPI Musculoskeletal: Reports as per HPI Skin/Breast: Reports as per HPI Reports as per HPI Psychiatric: Reports as per HPI Endocrine: Reports as per HPI Hematologic/Lymphatic: Reports as per HPI Allergic/Immunologic: Reports as per HPI Mental Status Exam Mental Status Exam Narrative: Pt is alert and oriented; behavior is cooperative and calm; dressed in casual attire; mood is described as good ; eye contact appropriate; Speech is normal rate, volume and prosody and not pressured; no psychomotor agitation/retardation present; thought process is organized; Thought content is on tx; otherwise pertinent to relevant topics and without any delusional content, paranoid ideations or grandiosity; denies SI/HI/VH/AH. Patients insight and judgment are fair. Diagnostics Vital Signs (24Hr): Vital Signs - 24 hr 02/22/23 20:50 02/23/23 08:00 Temperature 97.6 F 98.0 F Pulse Rate 88 86 Respiratory Rate 18 16 Blood Pressure 135/70 112/67 Pulse Oximetry 96 96 Oxygen Delivery Method Room Air Room Air BMI result Body Mass Index 22.5 Labs 02/13/23 02:03 02/14/23 08:57 Imaging Radiology Impressions: ITS Impressions Abdomen/Pelvis CT 02/16/23 14:13 IMPRESSION: There is a similar bilateral renal stone burden without evidence of obstructive uropathy compared to previous study of 04/06/2022. Fleischner guidelines were followed. Medications Medications Current Medications Acetaminophen (Acetaminophen 325 Mg Tablet) 650 mg PO Q6H PRN PRN Reason: Headache/Pain Mild Scale (1-3) Last Admin: 02/22/23 21:06 Dose: 650 mg Al Hydroxide/Mg Hydroxide (Magnesium Hydrox/Alum Hydrox 30 Ml Oral.Susp) 30 ml PO Q6H PRN PRN Reason: Heartburn/Nausea Albuterol Sulfate (Albuterol Sulfate 90 Mcg 8 Gm Inhaler) 2 puff INHALE Q4H PRN PRN Reason: Shortness Of Breath Or Wheezing Last Admin: 02/23/23 08:34 Dose: 2 puff Atorvastatin Calcium (Atorvastatin Calcium 40 Mg Tablet) 40 mg PO BEDTIME [facility] Last Admin: 02/22/23 20:58 Dose: 40 mg Baclofen (Baclofen 10 Mg Tablet) 10 mg PO TID [facility] Last Admin: 02/23/23 08:16 Dose: 10 mg Clonazepam (Clonazepam 0.5 Mg Tablet) 0.5 mg PO BID [facility] Last Admin: 02/23/23 08:15 Dose: 0.5 mg Ferrous Sulfate (Ferrous Sulfate 324 Mg Tablet.Dr) 324 mg PO BEDTIME [facility] Last Admin: 02/22/23 20:58 Dose: 324 mg Fluticasone Propionate (Fluticasone Propionate 250 Mcg Blst.W.Dev) 2 puff INHALE RBID [facility] Last Admin: 02/23/23 08:33 Dose: 2 puff Hydroxyzine HCl (Hydroxyzine Hcl 50 Mg Tablet) 50 mg PO Q6H PRN PRN Reason: Anxiety Last Admin: 02/23/23 03:49 Dose: 50 mg Lactic Acid (Ammonium Lactate 12 % Lotion 226 Gm Bottle) 1 appl TOPICAL BID PRN; Protocol PRN Reason: Dry Skin Last Admin: 02/22/23 21:28 Dose: 1 appl Lactulose (Lactulose 20 Gm/30 Ml Solution) 30 gm PO BID [facility] Last Admin: 02/23/23 09:43 Dose: 30 gm Magnesium Hydroxide (Milk Of Magnesia 30 Ml Oral.Susp) 30 ml PO DAILY PRN PRN Reason: Constipation Last Admin: 02/18/23 21:07 Dose: 30 ml Mirtazapine (Mirtazapine 15 Mg Tablet) 15 mg PO BEDTIME [facility] Last Admin: 02/22/23 20:58 Dose: 15 mg Nicotine (Nicotine 14 Mg Patch.Td24) 14 mg TRANSDERMA DAILY [facility] Last Admin: 02/23/23 08:14 Dose: 14 mg Omeprazole (Omeprazole 20 Mg Capsule.Dr) 20 mg PO DAILY@0630 [facility] Last Admin: 02/23/23 08:15 Dose: 20 mg Oxycodone HCl (Oxycodone Hcl Immed Release 5 Mg Tablet) 5 mg PO TID PRN PRN Reason: Pain, Moderate(Pain Scale 4-6) Last Admin: 02/23/23 11:05 Dose: 5 mg Pharmacy Consult (Consult Rx Perform Med Rec) 1 each MISCELLANE ONCE PRN PRN Reason: Consult order Quetiapine Fumarate (Quetiapine Fumarate 100 Mg Tablet) 100 mg PO BID [facility] Last Admin: 02/23/23 08:15 Dose: 100 mg Quetiapine Fumarate (Quetiapine Fumarate 400 Mg Tablet) 400 mg PO BEDTIME [facility] Last Admin: 02/22/23 20:58 Dose: 400 mg Quetiapine Fumarate (Quetiapine Fumarate 25 Mg Tablet) 25 mg PO Q6H PRN PRN Reason: anxiety Last Admin: 02/22/23 18:51 Dose: 25 mg Tamsulosin HCl (Tamsulosin Hcl 0.4 Mg Capsule) 0.8 mg PO DAILY [facility] Last Admin: 02/23/23 08:15 Dose: 0.8 mg Topiramate (Topiramate 25 Mg Tablet) 50 mg PO BEDTIME [facility] Last Admin: 02/22/23 20:57 Dose: 50 mg Trazodone HCl (Trazodone Hcl 50 Mg Tablet) 50 mg PO BEDTIME PRN PRN Reason: Insomnia Venlafaxine HCl (Venlafaxine Hcl Er 75 Mg Cap.Er.24h) 75 mg PO DAILY [facility] Last Admin: 02/23/23 08:15 Dose: 75 mg Verapamil HCl (Verapamil Hcl Sr 120 Mg Tablet.Er) 120 mg PO DAILY [facility]; Protocol Last Admin: 02/23/23 08:15 Dose: 120 mg Zolpidem Tartrate (Zolpidem Tartrate 5 Mg Tablet) 5 mg PO BEDTIME [facility] Last Admin: 02/22/23 20:57 Dose: 5 mg Allergies Allergies Allergy/AdvReac Type Severity Reaction Status Date / Time ibuprofen Allergy Intermediate Stomach Verified 02/13/23 02:07 Upset penicillin V Allergy Intermediate rash Verified 02/13/23 02:07 Assessment & Plan Assessment & Plan (1) Bilateral nephrolithiasis: Status: Acute Code(s): N20.0 - Calculus of kidney (2) BPH (benign prostatic hyperplasia): Status: Acute Code(s): N40.0 - Benign prostatic hyperplasia without lower urinary tract symptoms Plan Patient is a 57 year old male with hx of MDD and cocaine use d/o who has a hx of multiple inpatient admissions at [facility] that presented to [facility] ER via ambulance reporting chest and abdominal pain and poor appetite with suicidal ideation for the last 5 days d/t increase depressive symptoms. Plan: CV 15 minute safety checks Referral to treatment program Continue home medications Referral for visiting RN for medication compliance. 02/15 continue tx. repeatUA, but concern of kidney stones. 02/16: Patient reports feeling depressed and anxious today. Patient stated, I have suicidal thoughts. I feel like my life isn't worth living because my relationship with my is broken and my son is in long term . Patient reports auditory hallucinations of voices telling me to kill myself . Patient stated, I want to stay for weeks because I feel safe here . Patient C/O pain when urinating, hx of kidney stones; hospitalist consult ordered, along with Tramadol PO. 02/17: urologist recommends follow up outpatient in about one month since kidney stones are non obstructing. Pain better manage with toradol, rather than opiod medications. d/c oxycodone. Start toradol 30mg IM q6h prn pain. also started pt on baclofen, which may help decrease cocaine cravings as well as topamax. 02/18: Continue current regimen and plans. Discontinue IM Toradol and increase oxycodone to 10 mg q.6 p.r.n. 02/19: Continue current regimen and plans. Constipation was addressed today. 02/20: Patient reports feeling depressed and suicidal today. Patient stated, I think about hurting myself sometimes because of my life. I cry along in my room. I'm scared I might do it if I go home . Patient reports auditory and visual hallucinations. Pt stated, I hear voices telling me to kill myself and I see things pass by . Denies HI. 02/21: Pt continues to feel depressed. Pt stated, I woke up wanting to . Continues to have auditory hallucinations telling him to hurt himself. Patient stated, if I had someone to clean my house maybe I wouldn't be suicidal . Pt is hoping to have a visiting nurse and get into a program before discharge. Continue tx plan. 02/22: Patient reports feeling good today. Patient stated, I spoke with my sister and she told me to keep pushing, which I'm going to do. I'm going to focus on myself. My son is in skilled nursing and he needs to learn his lesson . Patient reports he has been more positive today. Patient stated, I'm not suicidal. I'm feeling more positive and thinking about the future. Everyone has their ups and downs. I'm feeling good about going to respite because I know I'll have support . Pt to discharge either tomorrow or Monday; depending on when respite has an available bed for him. Continue tx plan. 02/23: Patient reports feeling good today. Patient stated, I'm a little nervous about leaving here because I want to continue feeling as good as I do here. I don't feel suicidal. I want to see my grandkids get older . Patient reports he is looking forward to discharge and plans on following up with her outpatient providers. Patient educated on: diagnosis, medication risk/benefits, substance abuse and therapeutic strategies Informed Consent: understands Reason for continued inpatient stay Substantial Risk for: stable for discharge Time Spent With Patient Time: Total time managing care of this patient today _30___ minutes.
[2023-02-23] MEDS: Milk of Magnesia 30 ML ORAL.SUSP PO (15:06)
[2023-02-23 20:55] VITALS: BP 126/71; PULSE 89; RESP 18; TEMP 36.8; O2SAT 96
[2023-02-23] MEDS: Ferrous Sulfate 324 MG TABLET.DR PO (21:07)
[2023-02-23] MEDS: Topiramate 25 MG TABLET 50 MG PO (21:07)
[2023-02-23] MEDS: Zolpidem Tartrate 5 MG TABLET PO (21:08)
[2023-02-23] MEDS: QUEtiapine Fumarate 400 MG TABLET PO (21:08)
[2023-02-23] MEDS: Mirtazapine 15 MG TABLET PO (21:08)
[2023-02-23] MEDS: Atorvastatin Calcium 40 MG TABLET PO (21:08)
[2023-02-23] MEDS: Acetaminophen 325 MG TABLET 650 MG PO (21:09)
[2023-02-24] MEDS: Albuterol Sulfate 90 MCG 8 GM INHALER 2 PUFF INHALE ×2 (01:11→08:14)
[2023-02-24] MEDS: traZODone HCL 50 MG TABLET PO ×2 (01:17→02:46)
[2023-02-24] MEDS: hydrOXYzine HCL 50 MG TABLET PO ×2 (01:17→08:10)
[2023-02-24] MEDS: oxyCODONE HCl Immed Release 5 MG TABLET PO ×2 (02:47→12:41)
[2023-02-24] MEDS: Acetaminophen 325 MG TABLET 650 MG PO (02:47)
[2023-02-24 08:00] VITALS: BP 124/76; PULSE 76; RESP 18; TEMP 36.9; O2SAT 97
[2023-02-24] MEDS: Fluticasone Propionate 250 MCG BLST.W.DEV 2 PUFF INHALE (08:09)
[2023-02-24] MEDS: Nicotine 14 MG PATCH.TD24 TRANSDERMA (08:09)
[2023-02-24] MEDS: QUEtiapine Fumarate 100 MG TABLET PO (08:10)
[2023-02-24] MEDS: Baclofen 10 MG TABLET PO (08:10)
[2023-02-24] MEDS: Omeprazole 20 MG CAPSULE.DR PO (08:10)
[2023-02-24] MEDS: Tamsulosin HCL 0.4 MG CAPSULE 0.8 MG PO (08:10)
[2023-02-24] MEDS: VerapamiL HCL SR 120 MG TABLET.ER PO (08:10)
[2023-02-24] MEDS: clonazePAM 0.5 MG TABLET PO (08:11)
[2023-02-24] MEDS: Venlafaxine HCl ER 75 MG CAP.ER.24H PO (08:11)
--- NOTE | 2023-02-24 11:46 | PM.PSYDC ---
DS: Providers Provider Date of Service: 02/24/23 Date of admission: 02/13/23 23:58 Date of discharge: 02/24/23 Primary care physician: Vince Doran MD Admitting clinician: Lily Johnson Attending physician on admission: Ivan Butt Consults: 02/16/23 09:46 Consult to Hospitalist Routine Comment: Consulting Provider: Hospitalist Reason For Exam: kidney pain; hx of kidney stones. 02/16/23 18:57 Consult to Urology Routine Consulting Provider: Gerry Gil Reason for consultation: Acute on chronic nephrolithiasis, pt w/dysuria, hematuria Attending physician on discharge: Ivan Butt Discharging clinician: Lily Johnson DS: Diagnosis Discharge Diagnosis (1) Bilateral nephrolithiasis: Status: Acute (2) BPH (benign prostatic hyperplasia): Status: Acute DS: Medications Discharge Medications Home Medications: Home Medications Medication Instructions Recorded Confirmed fluticasone propionate 220 2 puff inhalation BID 01/16/23 02/13/23 mcg/actuation HFA aerosol inhaler (Flovent HFA) pantoprazole 40 mg tablet,delayed 40 mg PO QAM 01/16/23 02/13/23 release quetiapine 200 mg tablet 100 mg PO BID 01/16/23 02/13/23 quetiapine 400 mg tablet 400 mg PO BEDTIME 01/16/23 02/13/23 zolpidem 10 mg tablet 10 mg PO BEDTIME 01/16/23 02/13/23 albuterol sulfate 90 mcg/actuation 2 puff inhalation Q4-6H PRN 02/13/23 02/13/23 aerosol inhaler Shortness Of Breath Or Wheezing ferrous sulfate 325 mg (65 mg 325 mg PO BEDTIME 02/13/23 02/13/23 iron) tablet (FeroSul) ipratropium 0.5 mg-albuterol 3 mg 3 ml inhalation TID PRN wheezing 02/13/23 02/13/23 (2.5 mg base)/3 mL nebulization soln tramadol 50 mg tablet 50 mg PO Q6H PRN severe pain 02/13/23 02/13/23 Previous Rx's Medication Instructions Recorded atorvastatin 40 mg tablet 40 mg PO BEDTIME #30 tabs 10/04/22 clonazepam 0.5 mg tablet 0.5 mg PO BID #14 tabs 10/04/22 mirtazapine 15 mg tablet 15 mg PO BEDTIME #30 tabs 10/04/22 tamsulosin 0.4 mg capsule 0.4 mg PO DAILY #30 caps 10/04/22 venlafaxine 75 mg capsule,extended 75 mg PO DAILY #30 caps 10/04/22 release 24 hr verapamil 120 mg tablet,extended 120 mg PO DAILY #30 tabs 10/04/22 release Mental Status Exam Mental Status Exam Narrative: Pt is alert and oriented; behavior is cooperative, friendly and calm; patient is not in distress; dressed in casual attire; mood is described as good ; eye contact appropriate; Speech is normal rate, volume and prosody and not pressured; no psychomotor agitation/retardation present; thought process is organized and goal directed; Thought content is on tx; otherwise pertinent to relevant topics and without any delusional content, paranoid ideations or grandiosity; denies SI/HI. There is no evidence of perceptual disturbance. Patients insight and judgment are fair. Data Data Completed and Pending Completed studies during hospitalization [Text1]: 02/13/23 Unknown Urine clean catch - Urine vidal top Urine Culture - Final No growth. Imaging Diagnostic Imaging Impressions Abdomen/Pelvis CT 02/16/23 14:13 IMPRESSION: There is a similar bilateral renal stone burden without evidence of obstructive uropathy compared to previous study of 04/06/2022. Fleischner guidelines were followed. DS: Summary Hospital Course Hospital Course: Patient is a 57 year old male with hx of MDD and cocaine use d/o who has a hx of multiple [place] [facility] [facility] [place] ambulance reporting chest and abdominal pain and poor appetite with suicidal ideation for the last 5 days d/t increase depressive symptoms. Brazilian interperter present. On admission, patient presents calm, cooperative and organized. Patient reports feeling depressed and anxious . Patient stated, there are problems with my son who's in halfway in [place]; also my ex and I were talking again, then she stopped for no reason; which made me relapse for a day on cocaine. I was clean for 6 months . UTOX positive for cocaine and marijuana. Patient reports suicidal ideation; pt stated, I was not eating or taking my medications because I wanted to . The thoughts come and go. It's no one's fault what I'm going through but my own . Patient reports he has a visiting nurse but they don't come everyday , pt was unable to remember name of organization. Patient reports auditory and visual hallucinations; stated, I see shadows and hear my mother calling me even though she is . Patient reports he would like help with his mood and does not want to continue abusing substances. During hospital admission, pt was continued on his home medications. UA was done with concern of kidney stones. Patient stated, I have suicidal thoughts. I feel like my life isn't worth living because my relationship with my is broken and my son is in intermediate . Patient reports auditory hallucinations of voices telling me to kill myself . Patient stated, I want to stay for weeks because I feel safe here . Patient C/O pain when urinating, hx of kidney stones; hospitalist consult ordered, along with Tramadol PO. Urologist recommends follow up outpatient in about one month since kidney stones are non obstructing. Pain better manage with toradol, rather than opiod medications. d/c oxycodone. Start toradol 30mg IM q6h prn pain. also started pt on baclofen, which may help decrease cocaine cravings as well as topamax. Discontinue IM Toradol and increase oxycodone to 10 mg q.6 p.r.n. d/t patients continuous pain. Pt is hoping to have a visiting nurse and get into a program before discharge. Patient reports feeling good ; stated, I spoke with my sister and she told me to keep pushing, which I'm going to do. I'm going to focus on myself. My son is in halfway and he needs to learn his lesson . Patient reports he has been more positive today. Patient stated, I'm not suicidal. I'm feeling more positive and thinking about the future. Everyone has their ups and downs. I'm feeling good about going to respite because I know I'll have support . Patient continues to report feeling good . Patient stated, I'm a little nervous about leaving here because I want to continue feeling as good as I do here. I don't feel suicidal. I want to see my grandkids get older . Patient reports he is looking forward to discharge and plans on following up with her outpatient providers. Time spent discussing smoking cessation with patient: 3 to 10 minutes Status at Discharge Cognitive/behavioral status at discharge: Patient was interviewed prior to discharge and found to be fully oriented and without any SI or HI. Patient has insight and demonstrates good judgment in terms of wanting to pursue treatment. Patient is not in imminent risk of harm to self or others and has a safety plan that includes presenting to the closest ER or calling 911 if feeling unsafe. Patient has been observed closely by nursing and unit staff throughout admission; patient has not engaged in any behaviors that suggest dangerousness to self or others and has demonstrated appropriate behaviors and impulse control. Functional status at discharge: independent ambulation Overall status at discharge: patient is back to baseline Time Spent with Patient Time attestation: Total time managing care of this patient today _30___ minutes. Time spent: Less than 30 minutes Discharge Plan Discharge Anticipated Discharge Date/Time: 02/24/23 15:00 Patient Disposition: Xfer to Respite Facility Discharge Diagnosis: MDD, Cocaine use d/o Referrals: Vince Doran MD [Primary Care Provider] - 03/07/23 9:30 am (pcp appt. confirmed for 03/07/23 @ 9:30am) Discharge Medications: New baclofen 10 mg Tablet 10 mg PO TID 7 Days Qty: 21 0RF tamsulosin 0.4 mg Capsule 0.8 mg PO DAILY 7 Days Qty: 14 0RF hydroxyzine HCl 50 mg Tablet 50 mg PO Q6H 7 Days Qty: 28 0RF topiramate 25 mg Tablet 50 mg PO BEDTIME 7 Days Qty: 14 0RF zolpidem 5 mg Tablet 5 mg PO BEDTIME 7 Days Qty: 7 0RF trazodone 50 mg Tablet 50 mg PO BEDTIME PRN (Reason: Insomnia) 7 Days Qty: 7 0RF oxycodone 5 mg Tablet 5 mg PO TID PRN (Reason: Pain, Moderate(Pain Scale 4-6)) 3 Days Qty: 9 0RF Continued verapamil 120 mg Tablet Extended Release 120 mg PO DAILY Qty: 30 0RF Protocol: Hold for SBP/HR < HOLD for SBP < : 90 HOLD for HR < : 60 atorvastatin 40 mg Tablet 40 mg PO BEDTIME Qty: 30 0RF venlafaxine 75 mg Capsule,Extended Release 24hr 75 mg PO DAILY Qty: 30 0RF mirtazapine 15 mg Tablet 15 mg PO BEDTIME Qty: 30 0RF pantoprazole 40 mg tablet,delayed release (DR/EC) 40 mg PO QAM fluticasone propionate [Flovent HFA] 220 mcg/actuation HFA aerosol inhaler 2 puff INHALATION BID quetiapine 400 mg tablet 400 mg PO BEDTIME quetiapine 200 mg tablet 100 mg PO BID ipratropium-albuterol 0.5 mg-3 mg(2.5 mg base)/3 mL solution for nebulization 3 ml inhalation TID PRN (Reason: wheezing) ferrous sulfate [FeroSul] 325 mg (65 mg iron) tablet 325 mg PO BEDTIME albuterol sulfate 90 mcg/actuation HFA aerosol inhaler 2 puff inhalation Q4-6H PRN (Reason: Shortness Of Breath Or Wheezing) clonazepam 0.5 mg Tablet 0.5 mg PO BID 7 Days Qty: 14 1RF Discontinued tamsulosin 0.4 mg Capsule 0.4 mg PO DAILY Qty: 30 0RF zolpidem 10 mg tablet 10 mg PO BEDTIME tramadol 50 mg tablet 50 mg PO Q6H PRN (Reason: severe pain) Discharge Orders: Discharge Order (Routine); Ordered 02/24/23 Ordered By: Lily Johnson Diet: Regular diet Activity on Discharge: As tolerated Stand Alone Forms: Patient Portal Discharge page Care Plan Goals: Maintain mood and safe behaviors Take medications as prescribed Continue to pursue sobriety Practice coping skills Continue with outpatient providers and reach out to them as needed Health Concerns: Mood stability and behaviors Sobriety Plan of Treatment: Follow up with your PCP, psychiatric provider and other outpatient providers regarding above concerns Take medications as prescribed Assessment: Patient was interviewed prior to discharge and found to be fully oriented and without any SI or HI. Patient has insight and demonstrates good judgment in terms of wanting to pursue treatment. Patient is not in imminent risk of harm to self or others and has a safety plan that includes presenting to the closest ER or calling 911 if feeling unsafe. Patient has been observed closely by nursing and unit staff throughout admission; patient has not engaged in any behaviors that suggest dangerousness to self or others and has demonstrated appropriate behaviors and impulse control.
--- NOTE | 2023-02-24 14:26 | PC.NURSE ---
Augustin is discharging to respite at this time for step down in care. He denies ideation, plan or intent to harm self or others. He continues to complain of back pain which he attributes to kidney stones. He was seen here by urology and is encouraged to follow up with outpatient urologist. He verbalizes understanding of discharge plan.
== END 2023-02-24 15:40 | DRG 751 ==
LOC: HO.ED 11:32 → HO.PADLT16 02-14 00:08
PROVIDERS: Physician Assistant; Social Worker; Admitting Provider Psychiatry & Neurology Psychiatry; Emergency Provider Emergency Medicine; PCP Internal Medicine; Responsible Provider Registered Nurse; Visit Provider Psychiatry & Neurology Psychiatry
DX: F33.9 Major depressive disorder, recurrent, unspecified (principal); F14.10 Cocaine abuse, uncomplicated; N20.0 Calculus of kidney; F17.210 Nicotine dependence, cigarettes, uncomplicated; N40.0 Benign prostatic hyperplasia without lower urinary tract symptoms; J43.9 Emphysema, unspecified; Z20.822 Contact with and (suspected) exposure to COVID-19; Z71.6 Tobacco abuse counseling; Z79.51 Long term (current) use of inhaled steroids; Z79.899 Other long term (current) drug therapy
CPT/HCPCS: 36415; 74176; 80053; 80061; 80307; 81001; 84484; 85027; 87086; 87502; 87635; 93005; 99285; J1885; S9485

== ENCOUNTER → 2023-02-13 01:54 | Outpatient (BNV) | payer MEDICAID, SELFPAY | PROVIDERS: Emergency Provider Emergency Medicine; PCP Internal Medicine; Visit Provider Internal Medicine | DX: R00.0 Tachycardia, unspecified (principal); R94.31 Abnormal electrocardiogram [ECG] [EKG] | CPT/HCPCS: 93010 ==

== ENCOUNTER → 2023-02-13 23:58 | Outpatient (BNV) | payer OTHER, SELFPAY | PROVIDERS: Admitting Provider Psychiatry & Neurology Psychiatry; Emergency Provider Emergency Medicine; PCP Internal Medicine; Responsible Provider Registered Nurse; Visit Provider Registered Nurse | DX: F33.3 Major depressive disorder, recurrent, severe with psychotic symptoms (principal); N20.0 Calculus of kidney; N40.0 Benign prostatic hyperplasia without lower urinary tract symptoms | CPT/HCPCS: 99231; 99232; 99233 ==

== ENCOUNTER → 2023-02-13 23:58 | Outpatient (BNV) | payer MEDICAID, SELFPAY | PROVIDERS: Admitting Provider Psychiatry & Neurology Psychiatry; Emergency Provider Emergency Medicine; PCP Internal Medicine; Responsible Provider Registered Nurse; Visit Provider Urology | DX: N20.0 Calculus of kidney (principal); N40.0 Benign prostatic hyperplasia without lower urinary tract symptoms | CPT/HCPCS: 99222 ==

== ENCOUNTER 2023-02-25 22:30 | Emergency (ER) | payer MEDICAID, SELFPAY ==
--- NOTE | ~2023-02-25 | CT_ITS ---
EXAMINATION: CT ABDOMEN AND PELVIS WITHOUT CONTRAST CLINICAL INFORMATION: Right flank pain. Hematuria. COMPARISON: None available. TECHNIQUE: Multidetector volumetric imaging was performed from the superior aspect of the liver through the pubic symphysis. Sagittal and coronal reformatted images were obtained on the technologist's workstation. This CT examination was performed using dose optimization techniques as appropriate, variously including the following: *Automated exposure control *Adjustment of mA and/or kV according to patient size (this includes techniques or standardized protocols for targeted exams where dose is matched to indication/reason for exam; i.e. extremities or head) *Use of iterative reconstruction technique DLP: 314 mGy-cm FINDINGS: LUNG BASES: There is basilar emphysematous change. There are bilateral medial diaphragmatic hernias containing fat. LIVER, GALLBLADDER, AND BILIARY TREE: The liver is normal in size, shape, and attenuation. No focal hepatic lesion or biliary ductal dilatation is present. There has been a prior cholecystectomy. PANCREAS: Unremarkable. SPLEEN: Unremarkable. ADRENAL GLANDS: Unremarkable. KIDNEYS AND URETERS: The kidneys are normal in size, shape, and attenuation. There are multiple scattered bilateral renal calculi measuring up to 4 mm upper pole right kidney. There is a 2.3 cm right midpole renal cyst. There is no hydronephrosis. BLADDER: Unremarkable. GASTROINTESTINAL TRACT: The small and large bowel are unremarkable. There is retained stool throughout the colon. The appendix is unremarkable. ABDOMINAL WALL: No significant hernia is appreciated. LYMPH NODES: Normal. VASCULAR: Mild atherosclerotic plaque of the abdominal aorta. PELVIC VISCERA: The prostate gland is enlarged measuring 5.3 x 4.3 x 4.8 cm. OSSEOUS STRUCTURES: Unremarkable. CT/CT abdomen pelvis wo IV con IMPRESSION: Bilateral nonobstructing renal calculi. Retained stool throughout the colon. Diaphragmatic hernias containing fat. Fleischner guidelines were followed.
--- NOTE | 2023-02-25 22:32 | PC.NURSE ---
Expect from [facility], [place] - respite Pt is at [facility] for a 5d voluntary stay, no section in place, pt is free to leave at any time. Hx kidney stones, reporting flank/back pain starting today. 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 No ride will be available for pt is d/c late tonight, but staff will be available for ride in am.
[2023-02-25 22:40] VITALS: BP 138/84; PULSE 95; O2SAT 98
--- NOTE | 2023-02-25 22:47 | PC.NURSE ---
EMS handoff received from Gabriela douglas- pt in [place] awaiting triage
[2023-02-25 22:58] VITALS: BP 122/85; PULSE 96; RESP 16; TEMP 36.7; O2SAT 98; BMI 22.5
[2023-02-26 00:15] LABS: MANUAL DIFF FLAG NO
[2023-02-26 00:16] LABS: Basophils Absolute Auto 0.1 X10*3/uL (0.0-0.2); Basophils Percent Auto 0.9 % (0-2); Eosinophils Absolute Auto 0.3 X10*3/uL (0.0-0.4); Eosinophils Percent Auto 3.2 % (0-4); Hematocrit 36.7 % (42.0-52.0); Hemoglobin 12.5 g/dl (14.0-18.0); Imm Gran Abs Auto 0.05 X10*3/uL (0.00-0.03); Imm Gran Pct Auto 0.6 % (0.0-0.4); Lymphocytes Absolute Auto 2.6 X10*3/uL (1.2-4.9); Lymphocytes Percent Auto 32.1 % (20-40); Mean Corpuscular HGB Conc 34.1 g/dl (31.0-36.0); Mean Corpuscular Hemoglobin 30.1 pg (27.0-33.0); Mean Corpuscular Volume 88.4 fL (80.0-98.0); Mean Platelet Volume 8.6 fL (9.4-12.4); Monocytes Percent Auto 12.2 % (2-11); Neutrophils Absolute Auto 4.2 x10*3/uL (2.0-8.3); Platelet Count 374 X10*3/uL (160-400); Red Blood Count 4.15 X10*6/uL (4.60-5.80); Red Cell Distribution Width 14.8 % (11.0-16.0); White Blood Count 8.2 X10*3/uL (4.8-10.8)
[2023-02-26 00:28] LABS: Anion Gap 12 (12-20); Blood Urea Nitrogen 16 mg/dL (9-16); Calcium 9.2 mg/dL (8.4-10.2); Carbon Dioxide 23 mmol/L (22-29); Chloride 108 mmol/L (96-108); Creatinine Clr Calc Pharmacy 82.2; Estimated Glomerular Filt Rate > 60; Glucose Random 98 mg/dL (60-115); Potassium 4.2 mmol/L (3.3-5.1); Sodium 139 mmol/L (135-145)
[2023-02-26 02:57] VITALS: BP 125/82; PULSE 78; RESP 16; TEMP 36.7; O2SAT 96
--- NOTE | 2023-02-26 04:39 | ED.MALEGU ---
HPI - Male Genitourinary General Chief complaint: Urogenital-Male Stated complaint: LOWER BACK PAIN Time Seen by Provider: 02/26/23 04:34 Source: patient Mode of arrival: ambulatory Limitations: no limitations History of Present Illness HPI Narrative: Patient comes to the emergency room complaining of worsening left-sided flank pain. Patient states that he has been seeing blood in the urine as well. Denies trauma Related Data Home Medications Medication Instructions Recorded Confirmed fluticasone propionate 220 2 puff inhalation BID 01/16/23 02/13/23 mcg/actuation HFA aerosol inhaler (Flovent HFA) pantoprazole 40 mg tablet,delayed 40 mg PO QAM 01/16/23 02/13/23 release quetiapine 200 mg tablet 100 mg PO BID 01/16/23 02/13/23 quetiapine 400 mg tablet 400 mg PO BEDTIME 01/16/23 02/13/23 albuterol sulfate 90 mcg/actuation 2 puff inhalation Q4-6H PRN 02/13/23 02/13/23 aerosol inhaler Shortness Of Breath Or Wheezing ferrous sulfate 325 mg (65 mg 325 mg PO BEDTIME 02/13/23 02/13/23 iron) tablet (FeroSul) ipratropium 0.5 mg-albuterol 3 mg 3 ml inhalation TID PRN wheezing 02/13/23 02/13/23 (2.5 mg base)/3 mL nebulization soln Previous Rx's Medication Instructions Recorded atorvastatin 40 mg tablet 40 mg PO BEDTIME #30 tabs 10/04/22 mirtazapine 15 mg tablet 15 mg PO BEDTIME #30 tabs 10/04/22 venlafaxine 75 mg capsule,extended 75 mg PO DAILY #30 caps 10/04/22 release 24 hr verapamil 120 mg tablet,extended 120 mg PO DAILY #30 tabs 10/04/22 release baclofen 10 mg tablet 10 mg PO TID 7 days #21 tabs 02/24/23 clonazepam 0.5 mg tablet 0.5 mg PO BID 7 days #14 tabs 02/24/23 hydroxyzine HCl 50 mg tablet 50 mg PO Q6H 7 days #28 tabs 02/24/23 oxycodone 5 mg tablet 5 mg PO TID PRN Pain, 02/24/23 Moderate(Pain Scale 4-6) 3 days #9 tabs tamsulosin 0.4 mg capsule 0.8 mg PO DAILY 7 days #14 caps 02/24/23 topiramate 25 mg tablet 50 mg PO BEDTIME 7 days #14 tabs 02/24/23 trazodone 50 mg tablet 50 mg PO BEDTIME PRN Insomnia 7 02/24/23 days #7 tabs zolpidem 5 mg tablet 5 mg PO BEDTIME 7 days #7 tabs 02/24/23 acetaminophen 500 mg tablet 500 mg PO Q6H PRN fever or pain 02/26/23 #14 tabs Allergies Allergy/AdvReac Type Severity Reaction Status Date / Time ibuprofen Allergy Intermediate Stomach Verified 02/25/23 22:57 Upset penicillin V Allergy Intermediate rash Verified 02/25/23 22:57 Review of Systems Review of Systems: Constitutional : No Weight loss, No Fever, No Chills, No Night Sweats, No Fatigue, No Malaise ENT/Mouth : No Hearing loss, No Ear Pain, No Nasal Congestion, No Sinus Pain, No Hoarseness, No sore throat, No Rhinorrhea, No Swallowing Difficulty Eyes: No Eye Pain, No Swelling, No Redness, No Foreign Body, No Discharge, No Vision Changes Cardiovascular : No Chest Pain, No SOB, No Dyspnea on Exertion, No Orthopnea, No Edema, No Palpitations Respiratory : No Cough, No Sputum, No Wheezing, No Smoke Exposure, No Dyspnea Gastrointestinal : No Nausea, No Vomiting, No Diarrhea, No Constipation, No abdominal Pain, No Hematochezia, No Melena Genitourinary : no irregular bleeding, No Dysuria, No Urinary Frequency, complaining of Hematuria, No Urinary Incontinence, No Urgency, complaining of right-sided Flank Pain, No Urinary Flow Changes, No Hesitancy Musculoskeletal : No joint pain, No Myalgias, No Joint Swelling Skin : No Skin Lesions, No rash Neuro : No Weakness, No Numbness, No Paresthesias, No Loss of Consciousness, No Dizziness, No Headache Psych : No Anxiety/Panic, No Depression, No SI/HI/AH/VH, No Social Issues, Heme/Lymph: No Bruising, No Bleeding,No Lymphadenopathy Endocrine : No Polyuria, No Polydipsia, No Temperature Intolerance PMFSH Past Medical History Medical History Anxiety Asthma BPH (benign prostatic hyperplasia) Cannabis use disorder, moderate, dependence Cocaine use disorder Depression Emphysema of lung Nicotine dependence Pulmonary nodules Surgical History Hx of cholecystectomy Social History Social History Household Members: None Housing: Apartment Do you presently have visiting nurse or other home services: Yes Unable to assess alcohol history related to: Unknown Alcohol intake: never Patient Tobacco Use Status: Current everyday Tobacco user Tobacco use type: Cigarette Cigarettes Per Day: 5 e-Cigarette/Vaping Use: Currently Using Second Hand Smoke Exposure: No Substance Use Type: Crack/Cocaine and Marijuana Advance Directives: No Advance Directives Information Provided: No service: No Sexual orientation: Straight/Heterosexual Physical Exam Vital Signs: Vital Signs: Last Vital Signs Temp 97.9 F 02/26/23 04:48 Pulse 79 02/26/23 04:48 Resp 13 02/26/23 04:48 BP 121/83 02/26/23 04:48 Pulse Ox 97 02/26/23 04:48 O2 Del Method Room Air 02/26/23 04:48 BMI result Body Mass Index 22.5 Const: Other: Appearance: Alert. Oriented X3. No acute distress. Eyes: Pupils equal, round and reactive to light. ENT: Pharynx normal. Neck: Normal inspection. Neck supple. No lymph nodes noted. No crepitus CVS: Normal heart rate and rhythm. Pulses normal. Normal S1 and S2 Respiratory: No respiratory distress. Breath sounds normal. No Wheezing. No rales Abdomen: Soft and nontender. No rigidity. No distention. Mild CVA tenderness on the right Skin: Skin warm and dry. Normal skin color. Normal skin turgor. Extremities: No lower extremity edema. No Lacerations. No Rash Neuro: Oriented X 3. No motor deficit. No sensory deficit. Moving all extremities. No slurred speech. CN 2 through 12 grossly intact Psych: calm, cooperative, normal affect Course Course Course Narrative: My interpretation of labs: White blood cell count normal, chemistry normal, BUN/creatinine normal -urinalysis pending Medications Administered Discontinued Medications Generic Name Dose Route Start Last Admin Trade Name Freq PRN Reason Stop Dose Admin Ketorolac Tromethamine 60 mg 02/26/23 06:08 02/26/23 06:22 Ketorolac Tromethamine 60 Mg/2 Ml Vial IM 02/26/23 06:09 60 mg ONCE ONE Administration Medical Decision Making Medical Decision Making [facility] Narrative: -patient's urinalysis is negative, CT scan does not show any acute ureterolithiasis. -patient was given IM ketorolac. Patient is source of pain likely musculoskeletal. Differential Diagnosis Differential Diagnoses: The differential diagnosis associated with the presentation includes (Musculoskeletal pain, ureterolithiasis, renal colic, UTI, pyelonephritis) Admission/Observation Consideration of admission/observation: Escalation of care including admission/observation considered (Patient came in complaining of severe pain, admission was considered) Lab Data [facility] Lab Attestation statement: I reviewed the patient's lab results. 02/26/23 00:08 02/26/23 00:08 Labs: Lab Results 02/26/23 02/26/23 02/26/23 Range/Units 00:08 00:08 04:50 WBC 8.2 (4.8-10.8) X10*3/uL RBC 4.15 L (4.60-5.80) X10*6/uL Hgb 12.5 L (14.0-18.0) g/dl Hct 36.7 L (42.0-52.0) % MCV 88.4 (80.0-98.0) fL MCH 30.1 (27.0-33.0) pg MCHC 34.1 (31.0-36.0) g/dl RDW 14.8 (11.0-16.0) % Plt Count 374 (160-400) X10*3/uL MPV 8.6 L (9.4-12.4) fL Immature Gran % (Auto) 0.6 H (0.0-0.4) % Neut % (Auto) 51.0 (45-73) % Lymph % (Auto) 32.1 (20-40) % [place]edar % (Auto) 12.2 H (2-11) % Eos % (Auto) 3.2 (0-4) % Baso % (Auto) 0.9 (0-2) % Lymph # (Auto) 2.6 (1.2-4.9) X10*3/uL [place] # (Auto) 1.0 (0.1-1.2) X10*3/uL Eos # (Auto) 0.3 (0.0-0.4) X10*3/uL Baso # (Auto) 0.1 (0.0-0.2) X10*3/uL Abs Immat Gran (auto) 0.05 H (0.00-0.03) X10*3/uL Absolute Neuts (auto) 4.2 (2.0-8.3) x10*3/uL Absolute Nucleated RBC 0.000 (0.0-0.012) X10*3/uL Nucleated RBC % (auto) 0.0 (0.0-0.2) /100WBC Sodium 139 (135-145) mmol/L Potassium 4.2 (3.3-5.1) mmol/L Chloride 108 (96-108) mmol/L Carbon Dioxide 23 (22-29) mmol/L Anion Gap 12 (12-20) BUN 16 (9-16) mg/dL Creatinine 0.81 (0.5-1.4) mg/dL Estim Creat Clear Calc 82.2 Estimated GFR > 60 Random Glucose 98 (60-115) mg/dL Calcium 9.2 (8.4-10.2) mg/dL Urine Color Yellow Urine Appearance Clear Urine pH 6.5 (5.0-9.0) Ur Specific [place] 1.015 (1.005-1.025) Urine Protein Negative (Neg-Trace) mg/dL Urine Glucose (UA) Negative (Negative) mg/dL Urine Ketones Negative (Negative) mg/dL Urine Blood Negative (Negative) Urine Nitrite Negative (Negative) Ur Leukocyte Esterase Negative (Negative) Urine RBC 0-2 (0-2) /HPF Urine WBC 0-5 (0-5) /HPF Ur Squamous Epith Cells 0-2 (0-2) /HPF Urine Bacteria None Seen (None Seen) Hyaline Casts 0-2 (0-2) /LPF Independent Interpretation I performed an independent interpretation of an: CT Scan Radiology Impression Discussion of test interpretation with radiology: I have reviewed the radiologist's reading. Radiologist Impression: FINDINGS: LUNG BASES: There is basilar emphysematous change. There are bilateral medial diaphragmatic hernias containing fat. LIVER, GALLBLADDER, AND BILIARY TREE: The liver is normal in size, shape, and attenuation. No focal hepatic lesion or biliary ductal dilatation is present. There has been a prior cholecystectomy.? PANCREAS: Unremarkable.? SPLEEN: Unremarkable.? ADRENAL GLANDS: Unremarkable.? KIDNEYS AND URETERS: The kidneys are normal in size, shape, and attenuation. There are multiple scattered bilateral renal calculi measuring up to 4 mm upper pole right kidney. There is a 2.3 cm right midpole renal cyst. There is no hydronephrosis. BLADDER: Unremarkable.? GASTROINTESTINAL TRACT: The small and large bowel are unremarkable. There is retained stool throughout the colon. The appendix is unremarkable.? ABDOMINAL WALL: No significant hernia is appreciated.? LYMPH NODES: Normal. VASCULAR: Mild atherosclerotic plaque of the abdominal aorta. PELVIC VISCERA: The prostate gland is enlarged measuring 5.3 x 4.3 x 4.8 cm.? OSSEOUS STRUCTURES: Unremarkable.? CT/CT abdomen pelvis wo IV con IMPRESSION: Bilateral nonobstructing renal calculi. ? Retained stool throughout the colon. ? Diaphragmatic hernias containing fat. ? Fleischner guidelines were followed. Critical Care Time Critical Care Time Critical Care Time: Yes Total Critical Care Time: 45 Attestation: I have personally provided critical care time. Time includes review of lab data, radiology results, discussion with consultants, and monitoring for potential decompensation. Intervention performed as documented. Discharge Plan Discharge Clinical Impression: Acute flank pain Patient Disposition: Home, Self-Care Instructions: Flank Pain (ED) Additional Instructions: Please follow-up with your primary care physician tomorrow. If you have any worsening or new symptoms, please return to the emergency room or call 911 Prescriptions: New acetaminophen 500 mg tablet 500 mg PO Q6H PRN (Reason: fever or pain) Qty: 14 0RF No Action verapamil 120 mg Tablet Extended Release 120 mg PO DAILY Qty: 30 0RF Protocol: Hold for SBP/HR < HOLD for SBP < : 90 HOLD for HR < : 60 atorvastatin 40 mg Tablet 40 mg PO BEDTIME Qty: 30 0RF venlafaxine 75 mg Capsule,Extended Release 24hr 75 mg PO DAILY Qty: 30 0RF mirtazapine 15 mg Tablet 15 mg PO BEDTIME Qty: 30 0RF pantoprazole 40 mg tablet,delayed release (DR/EC) 40 mg PO QAM fluticasone propionate [Flovent HFA] 220 mcg/actuation HFA aerosol inhaler 2 puff INHALATION BID quetiapine 400 mg tablet 400 mg PO BEDTIME quetiapine 200 mg tablet 100 mg PO BID ipratropium-albuterol 0.5 mg-3 mg(2.5 mg base)/3 mL solution for nebulization 3 ml inhalation TID PRN (Reason: wheezing) ferrous sulfate [FeroSul] 325 mg (65 mg iron) tablet 325 mg PO BEDTIME albuterol sulfate 90 mcg/actuation HFA aerosol inhaler 2 puff inhalation Q4-6H PRN (Reason: Shortness Of Breath Or Wheezing) baclofen 10 mg Tablet 10 mg PO TID 7 Days Qty: 21 0RF tamsulosin 0.4 mg Capsule 0.8 mg PO DAILY 7 Days Qty: 14 0RF hydroxyzine HCl 50 mg Tablet 50 mg PO Q6H 7 Days Qty: 28 0RF topiramate 25 mg Tablet 50 mg PO BEDTIME 7 Days Qty: 14 0RF zolpidem 5 mg Tablet 5 mg PO BEDTIME 7 Days Qty: 7 0RF trazodone 50 mg Tablet 50 mg PO BEDTIME PRN (Reason: Insomnia) 7 Days Qty: 7 0RF oxycodone 5 mg Tablet 5 mg PO TID PRN (Reason: Pain, Moderate(Pain Scale 4-6)) 3 Days Qty: 9 0RF clonazepam 0.5 mg Tablet 0.5 mg PO BID 7 Days Qty: 14 1RF
[2023-02-26 04:48] VITALS: BP 121/83; PULSE 79; RESP 13; TEMP 36.6; O2SAT 97
[2023-02-26 04:56] LABS: Appearance Urine Clear; Color Urine Yellow; Glucose Urine UA Negative (Negative); Leukocyte Esterase Urine Negative (Negative); Nitrite Urine Negative (Negative); PH 6.5 (5.0-9.0); Specific Gravity - Urine 1.015 (1.005-1.025); Urine Blood Negative (Negative); Urine Ketones Negative (Negative); Urine Protein Negative (Neg-Trace)
[2023-02-26 05:01] LABS: Bacteria Urine None Seen (None Seen); Hyaline Casts Urine 0-2 /LPF (0-2); RBC Urine 0-2 /HPF (0-2); Squamous Epithelial Cell Urine 0-2 /HPF (0-2); WBC Urine 0-5 /HPF (0-5)
[2023-02-26] MEDS: Ketorolac Tromethamine 60 MG/2 ML VIAL IM (06:22)
--- NOTE | 2023-02-26 07:07 | PC.NURSE ---
This RN called [facility] crisis line att [phone] re: patient is being discharged and in need for transportation back to a program. Carina reported that a day time supervisor bleach plant Asya will call back to [facility] with a time for pickle solution maker.
--- NOTE | 2023-02-26 07:47 | PC.NURSE ---
pt cleared for discharge, discharge instructions reviewed with pt via staff medical officer. pt picked up by Russ from [facility].
== END 2023-02-26 07:47 | disposition home or self-care (01) ==
PROVIDERS: Emergency Provider Emergency Medicine
DX: R10.9 Unspecified abdominal pain (principal); M54.50 Low back pain, unspecified; Z79.899 Other long term (current) drug therapy
CPT/HCPCS: 36415; 74176; 80048; 81001; 85025; 96372; 99284; J1885

== ENCOUNTER 2023-03-18 21:26 | Emergency (ER) | payer MEDICAID, SELFPAY ==
[2023-03-18 21:32] VITALS: BP 119/73; BP 132/72; PULSE 88; PULSE 95; RESP 18; TEMP 36.7; O2SAT 97; O2SAT 98; BMI 22.5
--- NOTE | 2023-03-18 22:07 | ED_ITS ---
HPI - Back Pain/Injury General Chief Complaint: Abdominal Pain Stated Complaint: R-flank pain x1day from kidney stones Time Seen by Provider: 03/18/23 21:48 Source: patient Mode of arrival: EMS Limitations: no limitations History of Present Illness HPI Narrative: Patient with chronic back pain for more than a year on oxycodone been here 2 times in February for the same diagnosed with nonobstructive bilateral kidney stone comes back again as he ran out of his oxycodone 4 days ago none pain is constant bilateral lower back with slight nausea no hematuria no vomiting no recent trauma Related Data Home Medications Medication Instructions Recorded Confirmed fluticasone propionate 220 2 puff inhalation BID 01/16/23 02/13/23 mcg/actuation HFA aerosol inhaler (Flovent HFA) pantoprazole 40 mg tablet,delayed 40 mg PO QAM 01/16/23 02/13/23 release quetiapine 200 mg tablet 100 mg PO BID 01/16/23 02/13/23 quetiapine 400 mg tablet 400 mg PO BEDTIME 01/16/23 02/13/23 albuterol sulfate 90 mcg/actuation 2 puff inhalation Q4-6H PRN 02/13/23 02/13/23 aerosol inhaler Shortness Of Breath Or Wheezing ferrous sulfate 325 mg (65 mg 325 mg PO BEDTIME 02/13/23 02/13/23 iron) tablet (FeroSul) ipratropium 0.5 mg-albuterol 3 mg 3 ml inhalation TID PRN wheezing 02/13/23 02/13/23 (2.5 mg base)/3 mL nebulization soln Previous Rx's Medication Instructions Recorded atorvastatin 40 mg tablet 40 mg PO BEDTIME #30 tabs 10/04/22 mirtazapine 15 mg tablet 15 mg PO BEDTIME #30 tabs 10/04/22 venlafaxine 75 mg capsule,extended 75 mg PO DAILY #30 caps 10/04/22 release 24 hr verapamil 120 mg tablet,extended 120 mg PO DAILY #30 tabs 10/04/22 release baclofen 10 mg tablet 10 mg PO TID 7 days #21 tabs 02/24/23 clonazepam 0.5 mg tablet 0.5 mg PO BID 7 days #14 tabs 02/24/23 hydroxyzine HCl 50 mg tablet 50 mg PO Q6H 7 days #28 tabs 02/24/23 oxycodone 5 mg tablet 5 mg PO TID PRN Pain, 02/24/23 Moderate(Pain Scale 4-6) 3 days #9 tabs tamsulosin 0.4 mg capsule 0.8 mg PO DAILY 7 days #14 caps 02/24/23 topiramate 25 mg tablet 50 mg PO BEDTIME 7 days #14 tabs 02/24/23 trazodone 50 mg tablet 50 mg PO BEDTIME PRN Insomnia 7 02/24/23 days #7 tabs zolpidem 5 mg tablet 5 mg PO BEDTIME 7 days #7 tabs 02/24/23 acetaminophen 500 mg tablet 500 mg PO Q6H PRN fever or pain 02/26/23 #14 tabs lidocaine 4 % topical patch 1 patch topical DAILY PRN pain #10 03/18/23 ea Allergies Allergy/AdvReac Type Severity Reaction Status Date / Time ibuprofen Allergy Intermediate Stomach Verified 02/25/23 22:57 Upset penicillin V Allergy Intermediate rash Verified 02/25/23 22:57 Review of Systems Review of Systems: Yes all other systems are reviewed and are negative [facility] Past Medical History Medical History (Updated 03/18/23 @ 23:41 by Emile Mckeon MD) Anxiety Asthma BPH (benign prostatic hyperplasia) Cannabis use disorder, moderate, dependence Chronic back pain Cocaine use disorder Depression Emphysema of lung Nicotine dependence Pulmonary nodules Surgical History Hx of cholecystectomy Social History Social History Household Members: None Housing: Apartment Do you presently have visiting nurse or other home services: Yes Unable to assess alcohol history related to: Unknown Alcohol intake: never Patient Tobacco Use Status: Current everyday Tobacco user Tobacco use type: Cigarette Cigarettes Per Day: 5 e-Cigarette/Vaping Use: Currently Using Second Hand Smoke Exposure: No Substance Use Type: Crack/Cocaine and Marijuana Advance Directives: No Advance Directives Information Provided: Yes service: No Sexual orientation: Straight/Heterosexual Physical Exam Vital Signs: Vital Signs: Last Vital Signs Temp 98.1 F 03/18/23 21:32 Pulse 88 03/18/23 21:32 Resp 18 03/18/23 21:32 BP 119/73 03/18/23 21:32 Pulse Ox 97 03/18/23 21:32 O2 Del Method Room Air 03/18/23 21:32 BMI result Body Mass Index 22.5 Appearance: Alert. Oriented X3. No acute distress. Eyes: PERRLA, No Nystagmus ENT: Pharynx normal. Oral Mucosa moist Neck: Normal inspection. Neck supple. CVS: Normal heart rate and rhythm. Pulses normal. Respiratory: No respiratory distress. Equal air entry bilateral, Abdomen: Soft and nontender. Bowel sounds are present, no mass palpable, no CVA tenderness back: Bilateral paralumbar spinal tenderness no midline tenderness SLR negative bilaterally Skin: Skin warm and dry. Normal skin color. Normal skin turgor. Extremities: No lower extremity edema. No calf tenderness Neuro: Oriented X 3. No motor deficit. No sensory deficit.No cerebellar signs , cranial nerves II-XII intact Medications Administered Discontinued Medications Generic Name Dose Route Start Last Admin Trade Name Freq PRN Reason Stop Dose Admin Ketorolac Tromethamine 60 mg 03/18/23 22:01 03/18/23 22:16 Ketorolac Tromethamine 60 Mg/2 Ml Vial IM 03/18/23 22:02 60 mg ONCE ONE Administration Medical Decision Making Medical Decision Making [facility] Narrative: Patient with chronic back pain on pain medication uses cocaine also urine showed RBCs at [address] scan previously which showed nonobstructive kidney stone clinically patient does not have renal colic id. Patient advised to follow with urologist use Lidoderm patch for the back pain and continue his tramadol Differential Diagnosis Differential Diagnoses: The differential diagnosis associated with the presentation includes Renal colic/chronic back pain/UTI Lab Data [facility] Lab Attestation statement: I reviewed the patient's lab results. Labs: Lab Results 03/18/23 03/18/23 Range/Units 22:14 22:14 Urine Color Dark Yellow Urine Appearance Clear Urine pH 5.5 (5.0-9.0) Ur Specific [place] 1.025 (1.005-1.025) Urine Protein 30 (1+) H (Neg-Trace) mg/dL Urine Glucose (UA) Negative (Negative) mg/dL Urine Ketones Trace (Negative) mg/dL Urine Blood Large (3+) H (Negative) Urine Nitrite Negative (Negative) Ur Leukocyte Esterase Trace H (Negative) Urine RBC >20 H (0-2) /HPF Urine WBC 0-5 (0-5) /HPF Ur Squamous Epith Cells 0-2 (0-2) /HPF Urine Bacteria None Seen (None Seen) Hyaline Casts 3-5 (0-2) /LPF Urine Opiates Screen Not Detected (Not Detect) Urine Fentanyl Screen Not Detected (Not Detect) Ur Barbiturates Screen Not Detected (Not Detect) Ur Phencyclidine Scrn Not Detected (Not Detect) Ur Amphetamines Screen Not Detected (Not Detect) U Benzodiazepines Scrn POSITIVE H (Not Detect) Urine Cocaine Screen POSITIVE H (Not Detect) U Marijuana (THC) Screen POSITIVE H (Not Detect) Discharge Plan Discharge Clinical Impression: Bilateral nephrolithiasis, Chronic back pain Patient Disposition: Home, Self-Care Instructions: Kidney Stones (ED), Chronic Back Pain (DC) Additional Instructions: Drink plenty of fluid Take your Pain medication as prescribed Follow with urologist for kidney stone Apply lidocaine patch daily Prescriptions: New lidocaine 4 % adhesive patch,medicated 1 patch topical DAILY PRN (Reason: pain) Qty: 10 0RF No Action verapamil 120 mg Tablet Extended Release 120 mg PO DAILY Qty: 30 0RF Protocol: Hold for SBP/HR < HOLD for SBP < : 90 HOLD for HR < : 60 atorvastatin 40 mg Tablet 40 mg PO BEDTIME Qty: 30 0RF venlafaxine 75 mg Capsule,Extended Release 24hr 75 mg PO DAILY Qty: 30 0RF mirtazapine 15 mg Tablet 15 mg PO BEDTIME Qty: 30 0RF pantoprazole 40 mg tablet,delayed release (DR/EC) 40 mg PO QAM fluticasone propionate [Flovent HFA] 220 mcg/actuation HFA aerosol inhaler 2 puff INHALATION BID quetiapine 400 mg tablet 400 mg PO BEDTIME quetiapine 200 mg tablet 100 mg PO BID ipratropium-albuterol 0.5 mg-3 mg(2.5 mg base)/3 mL solution for nebulization 3 ml inhalation TID PRN (Reason: wheezing) ferrous sulfate [FeroSul] 325 mg (65 mg iron) tablet 325 mg PO BEDTIME albuterol sulfate 90 mcg/actuation HFA aerosol inhaler 2 puff inhalation Q4-6H PRN (Reason: Shortness Of Breath Or Wheezing) baclofen 10 mg Tablet 10 mg PO TID 7 Days Qty: 21 0RF tamsulosin 0.4 mg Capsule 0.8 mg PO DAILY 7 Days Qty: 14 0RF hydroxyzine HCl 50 mg Tablet 50 mg PO Q6H 7 Days Qty: 28 0RF topiramate 25 mg Tablet 50 mg PO BEDTIME 7 Days Qty: 14 0RF zolpidem 5 mg Tablet 5 mg PO BEDTIME 7 Days Qty: 7 0RF trazodone 50 mg Tablet 50 mg PO BEDTIME PRN (Reason: Insomnia) 7 Days Qty: 7 0RF oxycodone 5 mg Tablet 5 mg PO TID PRN (Reason: Pain, Moderate(Pain Scale 4-6)) 3 Days Qty: 9 0RF clonazepam 0.5 mg Tablet 0.5 mg PO BID 7 Days Qty: 14 1RF acetaminophen 500 mg tablet 500 mg PO Q6H PRN (Reason: fever or pain) Qty: 14 0RF Referrals: Gerry Gil MD [Physician] - 1 week
[2023-03-18] MEDS: Ketorolac Tromethamine 60 MG/2 ML VIAL IM (22:16)
[2023-03-18 22:30] LABS: Appearance Urine Clear; Color Urine Dark Yellow; Glucose Urine UA Negative (Negative); Leukocyte Esterase Urine Trace (Negative); Nitrite Urine Negative (Negative); PH 5.5 (5.0-9.0); Specific Gravity - Urine 1.025 (1.005-1.025); UMIC TRIGGER UACC YES; Urine Blood Large (3+) (Negative); Urine Ketones Trace mg/dL (Negative); Urine Protein 30 (1+) mg/dL (Neg-Trace)
[2023-03-18 22:35] LABS: Bacteria Urine None Seen (None Seen); RBC Urine >20 /HPF (0-2); Squamous Epithelial Cell Urine 0-2 /HPF (0-2); WBC Urine 0-5 /HPF (0-5)
[2023-03-18 22:36] LABS: Amphetamine Screen Urine Not Detected (Not Detect); Barbiturates, Urine Not Detected (Not Detect); Benzodiazepines Screen Urine POSITIVE (Not Detect); Cannabinoid Screen Urine POSITIVE (Not Detect); Cocaine Screen Urine POSITIVE (Not Detect); Fentanyl, urine Not Detected (Not Detect); Opiate Screen Urine Not Detected (Not Detect); Phencyclidine Screen Urine Not Detected (Not Detect)
[2023-03-19] MEDS: Lidocaine 4 % Patch ADH..PATCH 1 PATCH TRANSDERMA (00:08)
[2023-03-19] MEDS: traMADoL HCL 50 MG TABLET PO (00:09)
== END 2023-03-19 00:12 | disposition home or self-care (01) ==
PROVIDERS: Emergency Provider Internal Medicine; PCP Internal Medicine
DX: N20.0 Calculus of kidney (principal); G89.29 Other chronic pain; M54.50 Low back pain, unspecified; Z79.891 Long term (current) use of opiate analgesic; F12.29 Cannabis dependence with unspecified cannabis-induced disorder; F17.210 Nicotine dependence, cigarettes, uncomplicated; Z79.899 Other long term (current) drug therapy
CPT/HCPCS: 80307; 81001; 96372; 99284; J1885

== ENCOUNTER 2023-03-24 16:28 | Emergency (ER) | payer MEDICAID, SELFPAY ==
--- NOTE | ~2023-03-24 | XR_ITS ---
EXAMINATION: XR CHEST CLINICAL INFORMATION: Shortness of breath COMPARISON: Chest x-ray January 16, 2023 TECHNIQUE: 2 views of the chest were obtained. FINDINGS: No significant abnormality is noted involving the heart, lungs, mediastinum, bony thorax or soft tissues. XR/XR chest 2V IMPRESSION: Unremarkable examination.
--- NOTE | ~2023-03-24 | US_ITS ---
EXAMINATION: US RETROPERITONEAL LIMITED (RENAL ONLY) CLINICAL INFORMATION: Bilateral flank pain. History of stones.. COMPARISON: CT scan abdomen pelvis February 26, 2023 TECHNIQUE: Grayscale ultrasound and color Doppler exam of the kidneys bilateral. FINDINGS: RIGHT KIDNEY: 9.5 x 4.8 x 5 cm (SAG x AP x TRV). The kidney is normal in size, contour, and echogenicity. Kidney does have lobation' s of cortex. Renal cortical thickness is normal. There are renal stones: 1. Mid pole 0.3 cm. 2. Mid pole 0.4 cm. No hydronephrosis. At the midpole there is a septated cyst with a thin septation, Bosniak 2 cyst. This cyst measures 2.4 cm. No further follow-up imaging recommended. LEFT KIDNEY: 10.4 x 5.6 x 4.1 cm (SAG x AP x TRV). The kidney is normal in size, contour, and echogenicity. Renal cortical thickness is normal. Kidney does have lobation' s of cortex. There is a stone at the midpole measuring 0.3 cm. No hydronephrosis. On CAT scan February 26, 2023 there are numerous stones present in both kidneys. Most of the stones are not apparent on this ultrasound. US/US renal BI IMPRESSION: Bilateral renal stones. No hydronephrosis.
[2023-03-24 16:39] VITALS: BP 127/78; BP 129/88; PULSE 105; PULSE 94; RESP 20; TEMP 36.3; O2SAT 94; BMI 20.6
--- NOTE | 2023-03-24 16:42 | ECG_ITS ---
Test Reason : CHEST PAIN Blood Pressure : / mmHG Vent. Rate : 085 BPM Atrial Rate : 085 BPM P-R Int : 160 ms QRS Dur : 106 ms QT Int : 398 ms P-R-T Axes : 076 -06 077 degrees QTc Int : 473 ms Normal sinus rhythm Incomplete right bundle branch block Borderline ECG When compared with ECG of 13-FEB-2023 01:54, Questionable change in QRS axis Heart rate has decreased Nonspecific T wave abnormality is no longer Present Referred By: Generic ED Physician Electronically Signed By:HERSON GARZON
[2023-03-24 17:18] LABS: MANUAL DIFF FLAG NO
[2023-03-24 17:19] LABS: Basophils Absolute Auto 0.1 X10*3/uL (0.0-0.2); Basophils Percent Auto 1.3 % (0-2); Eosinophils Absolute Auto 0.3 X10*3/uL (0.0-0.4); Eosinophils Percent Auto 5.5 % (0-4); Hematocrit 35.7 % (42.0-52.0); Hemoglobin 12.1 g/dl (14.0-18.0); Imm Gran Abs Auto 0.01 X10*3/uL (0.00-0.03); Imm Gran Pct Auto 0.2 % (0.0-0.4); Lymphocytes Absolute Auto 1.6 X10*3/uL (1.2-4.9); Lymphocytes Percent Auto 33.2 % (20-40); Mean Corpuscular HGB Conc 33.9 g/dl (31.0-36.0); Mean Corpuscular Volume 88.4 fL (80.0-98.0); Mean Platelet Volume 8.5 fL (9.4-12.4); Monocytes Absolute Auto 0.3 X10*3/uL (0.1-1.2); Monocytes Percent Auto 6.6 % (2-11); Neutrophils Absolute Auto 2.5 x10*3/uL (2.0-8.3); Neutrophils Percent Auto 53.2 % (45-73); Platelet Count 286 X10*3/uL (160-400); Red Blood Count 4.04 X10*6/uL (4.60-5.80); Red Cell Distribution Width 14.9 % (11.0-16.0); White Blood Count 4.7 X10*3/uL (4.8-10.8)
--- NOTE | 2023-03-24 17:23 | ED_ITS ---
HPI - Chest Pain General Chief Complaint: Chest Pain Stated Complaint: SOB Time Seen by Provider: 03/24/23 17:09 Source: patient, RN notes reviewed and dietary assistant Mode of arrival: ambulatory Limitations: language barrier History of Present Illness HPI narrative: This is a 57-year-old [place]-speaking male with a past medical history of COPD, JERRY, cocaine use disorder, BPH, depression, anxiety, presenting to the emergency department with complaints of chest pain and back pain. Patient reports that while he was getting his medications from his visiting nurse, he began to developed left-sided chest pain. Patient reports that this episode lasted for approximately 2 hours, he denies any chest pain at this time. Patient reports that he has had ongoing back pain since being diagnosed with kidney stones. Reports that this has again to worsen, also reporting some left upper back pain. Denies any headaches, dizziness, shortness of breath, abdominal pain, nausea, vomiting or diarrhea. No urinary symptoms. Denies taking any medications at home to treat his current symptoms. He did not follow-up with Urology. No other complaints or concerns at this time MD complaint: chest pain Onset (ago): hour(s) Timing of current episode: episodic Prior episodes: No Onset: during rest Pain location: left chest Pain radiation: left arm Quality: tightness Relieving factors: nothing Exacerbating factors: nothing Treatment prior to arrival: none Risk Factors Coronary artery disease risk factors: none Thoracic aortic dissection risk factors: none Related Data Home Medications Medication Instructions Recorded Confirmed fluticasone propionate 220 2 puff inhalation BID 01/16/23 02/13/23 mcg/actuation HFA aerosol inhaler (Flovent HFA) pantoprazole 40 mg tablet,delayed 40 mg PO QAM 01/16/23 02/13/23 release quetiapine 200 mg tablet 100 mg PO BID 01/16/23 02/13/23 quetiapine 400 mg tablet 400 mg PO BEDTIME 01/16/23 02/13/23 albuterol sulfate 90 mcg/actuation 2 puff inhalation Q4-6H PRN 02/13/23 02/13/23 aerosol inhaler Shortness Of Breath Or Wheezing ferrous sulfate 325 mg (65 mg 325 mg PO BEDTIME 02/13/23 02/13/23 iron) tablet (FeroSul) ipratropium 0.5 mg-albuterol 3 mg 3 ml inhalation TID PRN wheezing 02/13/23 02/13/23 (2.5 mg base)/3 mL nebulization soln Previous Rx's Medication Instructions Recorded atorvastatin 40 mg tablet 40 mg PO BEDTIME #30 tabs 10/04/22 mirtazapine 15 mg tablet 15 mg PO BEDTIME #30 tabs 10/04/22 venlafaxine 75 mg capsule,extended 75 mg PO DAILY #30 caps 10/04/22 release 24 hr verapamil 120 mg tablet,extended 120 mg PO DAILY #30 tabs 10/04/22 release baclofen 10 mg tablet 10 mg PO TID 7 days #21 tabs 02/24/23 clonazepam 0.5 mg tablet 0.5 mg PO BID 7 days #14 tabs 02/24/23 hydroxyzine HCl 50 mg tablet 50 mg PO Q6H 7 days #28 tabs 02/24/23 oxycodone 5 mg tablet 5 mg PO TID PRN Pain, 02/24/23 Moderate(Pain Scale 4-6) 3 days #9 tabs tamsulosin 0.4 mg capsule 0.8 mg (2 x 0.4 mg) PO DAILY 7 02/24/23 days #14 caps topiramate 25 mg tablet 50 mg (2 x 25 mg) PO BEDTIME 7 02/24/23 days #14 tabs trazodone 50 mg tablet 50 mg PO BEDTIME PRN Insomnia 7 02/24/23 days #7 tabs zolpidem 5 mg tablet 5 mg PO BEDTIME 7 days #7 tabs 02/24/23 acetaminophen 500 mg tablet 500 mg PO Q6H PRN fever or pain 02/26/23 #14 tabs lidocaine 4 % topical patch 1 patch topical DAILY PRN pain #10 03/18/23 ea acetaminophen 500 mg capsule 500 mg PO Q6H PRN pain #30 caps 03/24/23 cyclobenzaprine 5 mg tablet 10 mg (2 x 5 mg) PO TID PRN muscle 03/24/23 spasm #14 tabs lidocaine 5 % topical patch 1 patch topical DAILY #30 ea 03/24/23 (Lidoderm) Allergies Allergy/AdvReac Type Severity Reaction Status Date / Time ibuprofen Allergy Intermediate Stomach Verified 03/24/23 16:41 Upset penicillin V Allergy Intermediate rash Verified 03/24/23 16:41 Review of Systems 2 Review of Systems: Yes all other systems are reviewed and are negative Constitutional: Constitutional: Reports as per [facility] Past Medical History Medical History (Updated 03/25/23 @ 00:02 by Pema Wolfe) Chronic back pain BPH (benign prostatic hyperplasia) Nicotine dependence Cannabis use disorder, moderate, dependence Cocaine use disorder Pulmonary nodules Emphysema of lung Anxiety Depression Asthma Surgical History Hx of cholecystectomy Social History Social History Household Members: None Housing: Apartment Do you presently have visiting nurse or other home services: Yes Unable to assess alcohol history related to: Unknown Alcohol intake: never Patient Tobacco Use Status: Current everyday Tobacco user Tobacco use type: Cigarette Cigarettes Per Day: 5 e-Cigarette/Vaping Use: Currently Using Second Hand Smoke Exposure: No Substance Use Type: Crack/Cocaine and Marijuana Advance Directives: Yes Advance Directives on File: Yes Advance Directives Date on File: 01/18/23 service: No Sexual orientation: Straight/Heterosexual Physical Exam 2 Vital Signs: Vital Signs: Last Vital Signs Temp 97.4 F 03/24/23 21:31 Pulse 84 03/24/23 21:31 Resp 16 03/24/23 21:31 BP 126/83 03/24/23 21:31 Pulse Ox 96 03/24/23 21:31 O2 Del Method Room Air 03/24/23 21:31 BMI result Body Mass Index 20.6 Const: General: cooperative, comfortable and no acute distress O rientation/consciousness: patient oriented x3 Limitations: no limitations HEENT: Head: Yes normal to inspection, Yes normocephalic and Yes atraumatic Ears: hearing grossly normal bilaterally General nose exam: Normal external nose present Face and sinus: Yes normal facial exam Mouth: Normal oral and palatal mucosa present, oropharynx normal and moist mucous membranes Throat: Yes posterior oropharynx normal Eyes: General: appearance normal, both eyes and all related structures E yelids: Yes eyelids normal Conjunctivae: conjunctivae normal Sclerae: s clerae normal Pupils: Equal, round and reactive pupils present EOM: EOMs intact bilaterally Neck: Neck: Yes normal visual inspection, Yes full ROM and Yes no lymphadenopathy Lymphatic: no lymphadenopathy noted Chest: Chest palpation & inspection: normal inspection of the chest Resp: Effort & Inspection: normal respiratory effort and able to speak in complete sentences Auscultation: clear to auscultation bilaterally, no crackles, no rales, no rhonchi and no wheezes Cardio: Rate: regular rate Rhythm: regular rhythm Heart sounds: S1 normal heart sound present and S2 normal heart sound present GI: Other: Abdomen is soft, nontender, nondistended Inspection: Yes normal to inspection : General: Yes no CVA tenderness Back/Spine/Pelvis: Other: Tenderness palpation along the upper back with spasms noted diffusely throughout bilateral trapezial muscles. Back: no CVA tenderness Skin: General skin exam: no rashes or lesions noted Trauma: no lacerations or abrasions Wounds: no wounds Neuro: General: patient oriented x3 and moves all extremities Cranial nerves: Yes Equal, round and reactive pupils present Extrem: General: Yes normal to inspection Right upper extremity: normal to inspection Left upper extremity: normal to inspection Right lower extremity: normal to inspection Left lower extremity: normal to inspection Course Reevaluation(s) Reevaluation #1: The patient with negative troponin, chest x-ray unremarkable. Labs with normal static anemia, at baseline. Chemistry within normal limits, creatinine stable. Second troponin pending. Time: 20:47 Reevaluation #2: Second troponin without delta change. Kidney stones present, nonobstructive. Improved since last CT scan. Patient feeling well and would like to be discharged home. Patient discharged on muscle relaxants, Lidoderm patches, and Tylenol. Medicated with Percocet prior to departure. Patient will be getting a ride home. Patient stable for discharge. Time: 22:06 Medications Administered Discontinued Medications Generic Name Dose Route Start Last Admin Trade Name Alvarado PRN Reason Stop Dose Admin Hydrocodone Bitart/Acetaminophen 1 tab 03/24/23 22:07 03/24/23 22:25 Hydrocodone Bit/Acetam 5/325 Tablet PO 03/24/23 22:08 1 tab ONCE ONE Administration Ketorolac Tromethamine 30 mg 03/24/23 17:44 03/24/23 19:16 Ketorolac Tromethamine 30 Mg/Ml Vial IM 03/24/23 17:45 30 mg ONCE ONE Administration Ondansetron HCl 4 mg 03/24/23 18:44 03/24/23 19:16 Ondansetron Odt 4 Mg Tab.Rapdis TRANSLINGU 03/24/23 18:45 4 mg ONCE ONE Administration Medical Decision Making Medical Decision Making [facility] Narrative: 57-year-old male presenting to the emergency department with complaints of left- sided chest pain which started this morning as well as back pain. On arrival, vital signs within normal limits. Patient is nontoxic appearing and speaking in full sentences. On arrival, vital signs within normal limits. Patient denies having any active chest pain. He states that the chest pain only lasted for about 2 hours this morning. He states that his back pain is consistent with the kidney stone pain he has had in the past. Given history of recurrent kidney stones, will obtain renal x-ray as well as checks x-ray and cardiac workup. Patient has a heart score of 1. EKG normal sinus rhythm with an incomplete right bundle branch seen on previous EKGs. Plan: Labs, EKG, chest x-ray, renal ultrasound Differential Diagnosis Differential Diagnoses: The differential diagnosis associated with the presentation includes Obstructive kidney stone, hydronephrosis, UTI, costochondritis, ACS-unlikely Admission/Observation Consideration of admission/observation: Escalation of care including admission/observation considered Escalation of care including admission observation was considered however given workup patient appropriate to be discharged home. Lab Data [facility] Lab Attestation statement: I reviewed the patient's lab results. See above 03/24/23 17:13 03/24/23 17:13 Labs: Lab Results 03/24/23 03/24/23 Range/Units 17:13 21:11 WBC 4.7 L (4.8-10.8) X10*3/uL RBC 4.04 L (4.60-5.80) X10*6/uL Hgb 12.1 L (14.0-18.0) g/dl Hct 35.7 L (42.0-52.0) % MCV 88.4 (80.0-98.0) fL MCH 30.0 (27.0-33.0) pg MCHC 33.9 (31.0-36.0) g/dl RDW 14.9 (11.0-16.0) % Plt Count 286 (160-400) X10*3/uL MPV 8.5 L (9.4-12.4) fL Immature Gran % (Auto) 0.2 (0.0-0.4) % Neut % (Auto) 53.2 (45-73) % Lymph % (Auto) 33.2 (20-40) % [place] % (Auto) 6.6 (2-11) % Eos % (Auto) 5.5 H (0-4) % Baso % (Auto) 1.3 (0-2) % Lymph # (Auto) 1.6 (1.2-4.9) X10*3/uL [place] # (Auto) 0.3 (0.1-1.2) X10*3/uL Eos # (Auto) 0.3 (0.0-0.4) X10*3/uL Baso # (Auto) 0.1 (0.0-0.2) X10*3/uL Abs Immat Gran (auto) 0.01 (0.00-0.03) X10*3/uL Absolute Neuts (auto) 2.5 (2.0-8.3) x10*3/uL Absolute Nucleated RBC 0.000 (0.0-0.012) X10*3/uL Nucleated RBC % (auto) 0.0 (0.0-0.2) /100WBC Sodium 141 (135-145) mmol/L Potassium 3.9 (3.3-5.1) mmol/L Chloride 112 H (96-108) mmol/L Carbon Dioxide 23 (22-29) mmol/L Anion Gap 10 L (12-20) BUN 11 (9-16) mg/dL Creatinine 0.83 (0.5-1.4) mg/dL Estim Creat Clear Calc 73.7 Estimated GFR > 60 Random Glucose 93 (60-115) mg/dL Calcium 9.1 (8.4-10.2) mg/dL Troponin I High Sens < 2.7 < 2.7 (<3.5-35.0) ng/L Independent Interpretation I performed an independent interpretation of an: EKG Interpretation: EKG normal sinus rhythm with ventricular rate of 85 beats per minute, CT interval 160, QTC 473. Incomplete right bundle-branch block, similar to previous EKG. Radiology Impression Discussion of test interpretation with radiology: I have reviewed the radiologist's reading. Radiologist Impression: EXAMINATION: XR CHEST CLINICAL INFORMATION: Shortness of breath COMPARISON: Chest x-ray January 16, 2023 TECHNIQUE: 2 views of the chest were obtained. FINDINGS: No significant abnormality is noted involving the heart, lungs, mediastinum, bony thorax or soft tissues. XR/XR chest 2V IMPRESSION: Unremarkable examination. Dictated By: Mehul Matthews MD EXAMINATION: US RETROPERITONEAL LIMITED (RENAL ONLY) CLINICAL INFORMATION: Bilateral flank pain. History of stones.. COMPARISON: CT scan abdomen pelvis February 26, 2023 TECHNIQUE: Grayscale ultrasound and color Doppler exam of the kidneys bilateral. FINDINGS: RIGHT KIDNEY: 9.5 x 4.8 x 5 cm (SAG x AP x TRV). The kidney is normal in size, contour, and echogenicity. Kidney does have lobation' s of cortex. Renal cortical thickness is normal. There are renal stones: 1. Mid pole 0.3 cm. 2. Mid pole 0.4 cm. No hydronephrosis. At the midpole there is a septated cyst with a thin septation, Bosniak 2 cyst. This cyst measures 2.4 cm. No further follow-up imaging recommended. LEFT KIDNEY: 10.4 x 5.6 x 4.1 cm (SAG x AP x TRV). The kidney is normal in size, contour, and echogenicity. Renal cortical thickness is normal. Kidney does have lobation' s of cortex. There is a stone at the midpole measuring 0.3 cm. No hydronephrosis. On CAT scan February 26, 2023 there are numerous stones present in both kidneys. Most of the stones are not apparent on this ultrasound. US/US renal BI IMPRESSION: Bilateral renal stones. No hydronephrosis. Dictated By: Mehul Matthews MD Scores Heart Score History: -0- slightly suspicious ECG: -0- normal Age: -1- >45 - <65 Risk factory: -0- no risk factors known Troponin: -0- < or = normal limit Score: 1 Risk: 1.7% Discharge Plan Discharge Clinical Impression: Bilateral nephrolithiasis, Trapezius muscle spasm Patient Disposition: Home, Self-Care Instructions: Kidney Stones (ED), Muscle Spasm (ED) Additional Instructions: Your workup today was reassuring. You do have multiple kidney stones. Please follow-up with Urology. Call to make an appointment on Monday. Drink plenty of fluids get plenty of rest. You also have muscle spasms in your back, please take muscle relaxants as directed, please be advised that this can cause drowsiness, do not drink alcohol or drive while taking this medication. If any new or worsening symptoms occur please return for re-evaluation. Tu examen de hoy fue tranquilizador. Tienes m?ltiples c?lculos renales. Por favor dipti seguimiento con Urolog?a. Llame para concertar tereza hayley el . Marcelle muchos l?quidos y descanse mucho. Tambi?n tiene espasmos musculares en la espalda, tome relajantes musculares seg?n las indicaciones, tenga en cuenta que esto puede causar somnolencia, no marcelle alcohol ni conduzca mientras kira rikki medicamento. Si se presenta alg?n s?ntoma nuevo o que empeora, regrese para tereza nueva evaluaci?n. Prescriptions: New acetaminophen 500 mg capsule 500 mg PO Q6H PRN (Reason: pain) Qty: 30 0RF cyclobenzaprine 5 mg tablet 10 mg PO TID PRN (Reason: muscle spasm) Qty: 14 0RF lidocaine [Lidoderm] 5 % adhesive patch,medicated 1 patch topical DAILY Qty: 30 0RF Rx Instructions: leave on most painful area for up to 12 hrs No Action verapamil 120 mg Tablet Extended Release 120 mg PO DAILY Qty: 30 0RF Protocol: Hold for SBP/HR < HOLD for SBP < : 90 HOLD for HR < : 60 atorvastatin 40 mg Tablet 40 mg PO BEDTIME Qty: 30 0RF venlafaxine 75 mg Capsule,Extended Release 24hr 75 mg PO DAILY Qty: 30 0RF mirtazapine 15 mg Tablet 15 mg PO BEDTIME Qty: 30 0RF lidocaine 4 % adhesive patch,medicated 1 patch topical DAILY PRN (Reason: pain) Qty: 10 0RF pantoprazole 40 mg tablet,delayed release (DR/EC) 40 mg PO QAM fluticasone propionate [Flovent HFA] 220 mcg/actuation HFA aerosol inhaler 2 puff INHALATION BID quetiapine 400 mg tablet 400 mg PO BEDTIME quetiapine 200 mg tablet 100 mg PO BID ipratropium-albuterol 0.5 mg-3 mg(2.5 mg base)/3 mL solution for nebulization 3 ml inhalation TID PRN (Reason: wheezing) ferrous sulfate [FeroSul] 325 mg (65 mg iron) tablet 325 mg PO BEDTIME albuterol sulfate 90 mcg/actuation HFA aerosol inhaler 2 puff inhalation Q4-6H PRN (Reason: Shortness Of Breath Or Wheezing) baclofen 10 mg Tablet 10 mg PO TID 7 Days Qty: 21 0RF tamsulosin 0.4 mg Capsule 0.8 mg PO DAILY 7 Days Qty: 14 0RF hydroxyzine HCl 50 mg Tablet 50 mg PO Q6H 7 Days Qty: 28 0RF topiramate 25 mg Tablet 50 mg PO BEDTIME 7 Days Qty: 14 0RF zolpidem 5 mg Tablet 5 mg PO BEDTIME 7 Days Qty: 7 0RF trazodone 50 mg Tablet 50 mg PO BEDTIME PRN (Reason: Insomnia) 7 Days Qty: 7 0RF oxycodone 5 mg Tablet 5 mg PO TID PRN (Reason: Pain, Moderate(Pain Scale 4-6)) 3 Days Qty: 9 0RF clonazepam 0.5 mg Tablet 0.5 mg PO BID 7 Days Qty: 14 1RF acetaminophen 500 mg tablet 500 mg PO Q6H PRN (Reason: fever or pain) Qty: 14 0RF Referrals: [facility] [Provider Group] Discharge Date/Time: 03/24/23 23:55
[2023-03-24 17:33] LABS: Anion Gap 10 (12-20); Blood Urea Nitrogen 11 mg/dL (9-16); Calcium 9.1 mg/dL (8.4-10.2); Carbon Dioxide 23 mmol/L (22-29); Chloride 112 mmol/L (96-108); Creatinine Clr Calc Pharmacy 73.7; Estimated Glomerular Filt Rate > 60; Glucose Random 93 mg/dL (60-115); Potassium 3.9 mmol/L (3.3-5.1); Sodium 141 mmol/L (135-145)
[2023-03-24 17:44] LABS: Troponin-I High Sensitivity < 2.7 ng/L (<3.5-35.0)
[2023-03-24] MEDS: Ketorolac Tromethamine 30 MG/ML VIAL IM (19:16)
[2023-03-24] MEDS: Ondansetron ODT 4 MG TAB.RAPDIS TRANSLINGU (19:16)
[2023-03-24 20:00] VITALS: BP 137/83; PULSE 78; RESP 16; TEMP 36.2; O2SAT 96
--- NOTE | 2023-03-24 21:16 | PC.NURSE ---
Pt reporting toradol not effective. 9/10 pain reported to Raven FROST. no new orders at this time. Tech katarina troponin results pending, awaiting orders.
[2023-03-24 21:31] VITALS: BP 126/83; PULSE 84; RESP 16; TEMP 36.3; O2SAT 96
[2023-03-24 21:40] LABS: Troponin-I High Sensitivity < 2.7 ng/L (<3.5-35.0)
[2023-03-24] MEDS: HYDROcodone Bit/Acetam 5/325 TABLET 1 TAB PO (22:25)
== END 2023-03-24 23:55 | disposition home or self-care (01) ==
PROVIDERS: Physician Assistant Medical; Emergency Provider Emergency Medicine; PCP Internal Medicine
DX: N20.0 Calculus of kidney (principal); M62.838 Other muscle spasm; R06.02 Shortness of breath; F17.210 Nicotine dependence, cigarettes, uncomplicated; F12.20 Cannabis dependence, uncomplicated; Z79.899 Other long term (current) drug therapy
CPT/HCPCS: 36415; 71046; 76775; 80048; 84484; 85025; 93005; 96372; 99285; J1885

== ENCOUNTER → 2023-03-31 13:19 | Outpatient (BNVA) | payer MEDICAID, SELFPAY | PROVIDERS: PCP Internal Medicine; Visit Provider Urology ==

== ENCOUNTER 2023-03-31 22:35 | Inpatient (IN) | payer MEDICAID, SELFPAY ==
--- NOTE | 2023-03-31 | ECG_ITS ---
Test Reason : sob Blood Pressure : / mmHG Vent. Rate : 117 BPM Atrial Rate : 117 BPM P-R Int : 104 ms QRS Dur : 098 ms QT Int : 440 ms P-R-T Axes : 000 057 080 degrees QTc Int : 613 ms Sinus tachycardia with short MA Incomplete right bundle branch block Septal infarct , age undetermined Abnormal ECG When compared with ECG of 24-MAR-2023 17:02, MA interval has decreased Septal infarct is now Present Heart rate has increased Referred By: Generic ED Physician Electronically Signed By:HERSON GARZON
--- NOTE | ~2023-03-31 | XR_ITS ---
EXAMINATION: XR CHEST CLINICAL INFORMATION: Dyspnea. COMPARISON: 03/31/2023 TECHNIQUE: Frontal view of the chest was obtained. FINDINGS: The cardiomediastinal silhouette is within normal limits and stable. There is no focal lung consolidation or pleural effusion. The bony structures and soft tissues are unremarkable. XR/XR chest 1V IMPRESSION: No active cardiopulmonary disease.
--- NOTE | ~2023-03-31 | XR_ITS ---
EXAMINATION: XR CHEST CLINICAL INFORMATION: Shortness of breath. COMPARISON: 03/24/2023. Correlation made with CT performed 09/03/2022. TECHNIQUE: Frontal view of the chest was obtained. FINDINGS: The cardiomediastinal silhouette is stable. The lung grant are hyperinflated. Bilateral medial diaphragmatic hernias are noted similar to prior. There is no focal parenchymal consolidation or pleural effusion. The bony structures and soft tissues are unremarkable. XR/XR chest 1V IMPRESSION: Emphysema/COPD. No focal consolidation or pleural effusion.
[2023-03-31 22:46] VITALS: BP 137/86; PULSE 110; PULSE 116; RESP 32; TEMP 36.6; O2SAT 100; O2SAT 91; BMI 20.6
[2023-03-31 22:59] VITALS: BP 109/78; PULSE 116; RESP 32; TEMP 36.8; O2SAT 95
[2023-03-31 23:02] VITALS: RESP 28
[2023-03-31 23:02] LABS: Hematocrit 34.5 % (42.0-52.0); Hemoglobin 11.9 g/dl (14.0-18.0); Mean Corpuscular HGB Conc 34.5 g/dl (31.0-36.0); Mean Corpuscular Hemoglobin 30.3 pg (27.0-33.0); Mean Corpuscular Volume 87.8 fL (80.0-98.0); Mean Platelet Volume 8.6 fL (9.4-12.4); Platelet Count 351 X10*3/uL (160-400); Red Blood Count 3.93 X10*6/uL (4.60-5.80); Red Cell Distribution Width 14.9 % (11.0-16.0)
--- NOTE | 2023-03-31 23:04 | PC.NURSE ---
patient BIBA from home. Increased shortness of breath x1 day. at home treatments of albuterol failed. EMS gave duoneb and solumedrol with no significant impact. -patient has fast shallow respirations with abdominal breathing -satting 93% on RA -wheezing throughout heard on lungs
[2023-03-31 23:06] LABS: VBG Base Excess 2.3 mmol/L; VBG HCO3 27 mmol/L (22-26); VBG pCO2 43 mmHg; VBG pO2 91 mmHg
[2023-03-31 23:06] LABS: Venous Blood Gas Refer to POC result
[2023-03-31 23:16] VITALS: PULSE 115; RESP 26; O2SAT 90
[2023-03-31] MEDS: Albuterol Sulfate 5 MG, Albuterol Sulfate (0.083%) 2.5 MG 7.5 MG INHALE ×2 (23:21→23:56)
[2023-03-31 23:27] LABS: Troponin-I High Sensitivity < 2.7 ng/L (<3.5-35.0)
[2023-03-31 23:33] LABS: Alanine Aminotransferase 21 U/L (0-40); Albumin Level 3.9 g/dL (3.5-5.0); Alkaline Phosphatase 101 U/L (39-117); Anion Gap 12 (12-20); Aspartate Amino Transferase 21 U/L (5-37); Bilirubin Total 0.3 mg/dL (0.0-1.0); Blood Urea Nitrogen 11 mg/dL (9-16); Calcium 9.3 mg/dL (8.4-10.2); Carbon Dioxide 25 mmol/L (22-29); Chloride 107 mmol/L (96-108); Creatinine Clr Calc Pharmacy 74.6; Estimated Glomerular Filt Rate > 60; Glucose Random 125 mg/dL (60-115); Potassium 3.1 mmol/L (3.3-5.1); Sodium 141 mmol/L (135-145); Total Protein 6.8 g/dL (6.5-8.0)
[2023-03-31 23:54] VITALS: BP 115/83; PULSE 116; RESP 26; TEMP 36.4; O2SAT 93
[2023-03-31] MEDS: Magnesium Sulfate/H2O 2 GM/50 ML PIGGYBACK IV (23:56)
[2023-03-31 23:59] VITALS: PULSE 116; RESP 26; O2SAT 92
[2023-04-01] VITALS (13 sets, daily range): BP systolic 94–136; BP diastolic 59–79; PULSE 85–112; RESP 15–32; TEMP 36.6–36.9; O2SAT 92–97; BMI 22.0
[2023-04-01 00:04] LABS: Influenza A PCR NEGATIVE (Negative); Influenza B PCR NEGATIVE (Negative); Resp Syncy Virus RNA Qual PCR NEGATIVE (Negative); SARS COV2 PCR INHOUSE NEGATIVE (Negative)
[2023-04-01] MEDS: Morphine Sulfate 4 MG/ML CARTRIDGE IVPUSH (00:41)
--- NOTE | 2023-04-01 01:53 | PC.NURSE ---
breath sounds remain wheezy on both inspiration and expiration. O2 remaining in low 90s on room air
--- NOTE | 2023-04-01 02:25 | ED.SOB ---
HPI - SOB/Dyspnea General Chief Complaint: Dyspnea Stated Complaint: Diff Breathing Time Seen by Provider: 03/31/23 23:00 Source: patient and EMS Mode of arrival: EMS Limitations: no limitations History of Present Illness HPI Narrative: Patient has history of severe COPD, 30+ pack year smoking come asthma depression issue cocaine abuse brought by EMS for increased shortness breath for last 24 hours no relief do not warrant albuterol inhaler EMS gave him 100 mg of IM Solu-Medrol and DuoNeb saturating 90s at room air no fever no chills no leg swelling history of same multiple times admissions Related Data Home Medications Medication Instructions Recorded Confirmed pantoprazole 40 mg tablet,delayed 40 mg PO QAM 01/16/23 04/01/23 release quetiapine 200 mg tablet 100 mg PO BID 01/16/23 04/01/23 quetiapine 400 mg tablet 400 mg PO BEDTIME 01/16/23 04/01/23 trazodone 50 mg tablet 50 mg PO BEDTIME PRN insomnia 04/01/23 04/01/23 Previous Rx's Medication Instructions Recorded atorvastatin 40 mg tablet 40 mg PO BEDTIME #30 tabs 10/04/22 mirtazapine 15 mg tablet 15 mg PO BEDTIME #30 tabs 10/04/22 venlafaxine 75 mg capsule,extended 75 mg PO DAILY #30 caps 10/04/22 release 24 hr verapamil 120 mg tablet,extended 120 mg PO DAILY #30 tabs 10/04/22 release baclofen 10 mg tablet 10 mg PO TID 7 days #21 tabs 02/24/23 clonazepam 0.5 mg tablet 0.5 mg PO BID 7 days #14 tabs 02/24/23 hydroxyzine HCl 50 mg tablet 50 mg PO Q6H 7 days #28 tabs 02/24/23 tamsulosin 0.4 mg capsule 0.8 mg (2 x 0.4 mg) PO DAILY 7 02/24/23 days #14 caps topiramate 25 mg tablet 50 mg (2 x 25 mg) PO BEDTIME 7 02/24/23 days #14 tabs zolpidem 5 mg tablet 5 mg PO BEDTIME 7 days #7 tabs 02/24/23 Allergies Allergy/AdvReac Type Severity Reaction Status Date / Time ibuprofen Allergy Intermediate Stomach Verified 04/01/23 00:58 Upset penicillin V Allergy Intermediate rash Verified 04/01/23 00:58 Review of Systems Review of Systems: Yes all other systems are reviewed and are negative [facility] Past Medical History Medical History Chronic back pain BPH (benign prostatic hyperplasia) Nicotine dependence Cannabis use disorder, moderate, dependence Cocaine use disorder Pulmonary nodules Emphysema of lung Anxiety Depression Asthma Surgical History Hx of cholecystectomy Social History Social History Household Members: None Housing: Apartment Do you presently have visiting nurse or other home services: Yes Unable to assess alcohol history related to: Unknown Alcohol intake: current Alcohol intake frequency: holidays/special occasions only Alcohol type: beer Patient Tobacco Use Status: Current everyday Tobacco user Tobacco use type: Cigarette Cigarettes Per Day: 5 Smoked in Last 30 Days: Yes e-Cigarette/Vaping Use: Currently Using Second Hand Smoke Exposure: No Use of substances other than those prescribed or required for medical reasons: No Substance Use Type: Crack/Cocaine and Marijuana Advance Directives: Yes Advance Directives on File: Yes Advance Directives Date on File: 01/18/23 service: No Sexual orientation: Straight/Heterosexual Physical Exam Vital Signs: Vital Signs: Last Vital Signs Temp 97.8 F 04/01/23 04:32 Pulse 112 H 04/01/23 04:32 Resp 23 H 04/01/23 04:32 BP 94/59 L 04/01/23 04:32 Pulse Ox 96 04/01/23 04:32 O2 Del Method Room Air 04/01/23 04:32 BMI result Body Mass Index 20.6 Appearance: Alert. Oriented X3. In moderate respiratory duress Eyes: PERRLA, No Nystagmus ENT: Pharynx normal. Oral Mucosa moist Neck: Normal inspection. Neck supple. CVS: Normal heart rate and rhythm. Pulses normal. Respiratory: Moderate respiratory distress. Decreased air entry bilateral with prolonged expiration and wheezing no rales Abdomen: Soft and nontender. Bowel sounds are present, no mass palpable, no CVA tenderness Skin: Skin warm and dry. Normal skin color. Normal skin turgor. Extremities: No lower extremity edema. No calf tenderness Neuro: Oriented X 3. No motor deficit. No sensory deficit.No cerebellar signs , cranial nerves II-XII intact Medications Administered Generic Name Dose Route Start Last Admin Trade Name Freq PRN Reason Stop Dose Admin Acetaminophen 650 mg 04/01/23 02:44 04/01/23 03:13 Acetaminophen 325 Mg Tablet PO 650 mg Q6H PRN Administration Pain, Mild (Pain Scale 1-3) Enoxaparin Sodium 40 mg 04/01/23 02:45 04/01/23 03:06 Enoxaparin Sodium 40 Mg/0.4 Ml Syringe SUBCUT 40 mg Q24H ADRIEN Administration Azithromycin 500 mg/ Sodium 250 mls @ 125 mls/hr 04/01/23 02:45 04/01/23 03:04 Chloride IV 125 mls/hr Q24H ADRIEN Administration Methylprednisolone Sodium Succinate 40 mg 04/01/23 02:45 04/01/23 03:06 Methylprednisolone Sod Succ 40 Mg/Ml Vial IVPUSH 40 mg Q12H ADRIEN Administration Nicotine 14 mg 04/01/23 02:55 04/01/23 03:13 Nicotine 14 Mg Patch.Td24 TRANSDERMA 14 mg DAILY ADRIEN Administration Discontinued Medications Generic Name Dose Route Start Last Admin Trade Name Jimq PRN Reason Stop Dose Admin Albuterol Sulfate 5 mg/ 7.5 mg 03/31/23 23:15 03/31/23 23:21 Albuterol Sulfate 2.5 mg INHALE 03/31/23 23:16 7.5 mg ONCE ONE Administration Albuterol Sulfate 5 mg/ 7.5 mg 03/31/23 23:53 03/31/23 23:56 Albuterol Sulfate 2.5 mg INHALE 03/31/23 23:54 7.5 mg ONCE ONE Administration Magnesium Sulfate 2 gm in 50 mls @ 150 mls/hr 03/31/23 23:52 04/01/23 00:24 Magnesium Sulfate/H2o IV 04/01/23 00:11 Infused ONCE ONE Infusion Sodium Chloride 1,000 mls @ 999 mls/hr 04/01/23 02:32 04/01/23 02:46 Ns IV 04/01/23 03:32 999 mls/hr .Q1H1M ONE Administration Morphine Sulfate 4 mg 04/01/23 00:29 04/01/23 00:41 Morphine Sulfate 4 Mg/Ml Cartridge IVPUSH 04/01/23 00:30 4 mg ONCE ONE Administration Protocol Potassium Chloride 40 meq 04/01/23 02:52 04/01/23 03:13 Potassium Chloride Packet 20 Meq Packet PO 04/01/23 02:53 40 meq ONCE ONE Administration Quetiapine Fumarate 400 mg 04/01/23 02:54 04/01/23 03:13 Quetiapine Fumarate 400 Mg Tablet PO 04/01/23 02:55 400 mg ONCE ONE Administration Zolpidem Tartrate 5 mg 04/01/23 02:45 04/01/23 03:06 Zolpidem Tartrate 5 Mg Tablet PO 04/01/23 02:46 5 mg ONCE ONE Administration Medical Decision Making Medical Decision Making [facility] Narrative: Patient with severe COPD with chronic smoking history comes or increased shortness of breath barely moving any air received 2 continues nebulizing treatment IV steroids and magnesium will admit patient for supportive treatment Differential Diagnosis Differential Diagnoses: The differential diagnosis associated with the presentation includes Chronic bronchitis/COPD/pneumonia/CHF/cocaine abuse Admission/Observation Consideration of admission/observation: Escalation of care including admission/observation considered Consult Healthcare Provider Management of the patient was discussed with: Hospitalist Lab Data [facility] Lab Attestation statement: I reviewed the patient's lab results. 03/31/23 22:57 04/01/23 03:03 Labs: Lab Results 03/31/23 03/31/23 03/31/23 Range/Units 22:57 22:59 23:20 WBC 12.0 H (4.8-10.8) X10*3/uL RBC 3.93 L (4.60-5.80) X10*6/uL Hgb 11.9 L (14.0-18.0) g/dl Hct 34.5 L (42.0-52.0) % MCV 87.8 (80.0-98.0) fL MCH 30.3 (27.0-33.0) pg MCHC 34.5 (31.0-36.0) g/dl RDW 14.9 (11.0-16.0) % Plt Count 351 (160-400) X10*3/uL MPV 8.6 L (9.4-12.4) fL Absolute Nucleated RBC 0.000 (0.0-0.012) X10*3/uL Nucleated RBC % (auto) 0.0 (0.0-0.2) /100WBC VBG pH 7.40 (7.32-7.43) VBG pCO2 43 mmHg VBG pO2 91 mmHg VBG HCO3 27 H (22-26) mmol/L VBG O2 Saturation 98.0 % VBG Base Excess 2.3 mmol/L Sodium 141 (135-145) mmol/L Potassium 3.1 L D (3.3-5.1) mmol/L Chloride 107 (96-108) mmol/L Carbon Dioxide 25 (22-29) mmol/L Anion Gap 12 (12-20) BUN 11 (9-16) mg/dL Creatinine 0.82 (0.5-1.4) mg/dL Estim Creat Clear Calc 74.6 Estimated GFR > 60 Random Glucose 125 H (60-115) mg/dL Calcium 9.3 (8.4-10.2) mg/dL Total Bilirubin 0.3 (0.0-1.0) mg/dL AST 21 (5-37) U/L ALT 21 (0-40) U/L Alkaline Phosphatase 101 (39-117) U/L Troponin I High Sens < 2.7 (<3.5-35.0) ng/L Total Protein 6.8 (6.5-8.0) g/dL Albumin 3.9 (3.5-5.0) g/dL Influenza Type A (PCR) NEGATIVE (Negative) Influenza Type B (PCR) NEGATIVE (Negative) RSV RNA Qual (PCR) NEGATIVE (Negative) SARS-CoV-2 RNA (RT-PCR) NEGATIVE (Negative) Discharge Plan Discharge Clinical Impression: COPD (chronic obstructive pulmonary disease), Nicotine dependence Patient Disposition: Admitted As Inpatient
--- NOTE | 2023-04-01 02:26 | PC.NURSE ---
patient sleeping at this time, respirations equal and less labored than previous assessments. patient continues to have shallow breathing with some notable wheezing but major improvement has been made. pt is satting 93% on room air, requiring no supplemental O2 at this time. awaiting hospitalist at this time
--- NOTE | 2023-04-01 02:45 | P.HPHOSP_ITS ---
History of Present Illness Date of Service: 04/01/23 Chief Complaint: Dyspnea This is a 57-year-old male with pertinent history of mood disorder, COPD not on home oxygen, BPH, mixed hyperlipidemia, JERRY on CPAP, tobacco use disorder who presents to the emergency department for evaluation of dyspnea. Patient states that started 1 day prior to presentation. It is associated with wheezing and nonproductive cough. It has been progressive over the last 24 hours. Patient tried his home inhaler without relief. He continues to smoke tobacco. Denies fever and chills. Denies chest discomfort, palpitations, shortness of breath, abdominal pain, changes in urinary or bowel habits. In the emergency department, patient with significant wheezing despite multiple DuoNeb treatments Review of Systems 2 Constitutional: Constitutional: Reports fatigue Cardiovascular: Cardiovascular: Reports dyspnea on exertion Respiratory: Respiratory: Reports cough, Reports dyspnea on exertion and Reports wheezing Gastrointestinal: Gastrointestinal: Reports no additional gastrointestinal complaints Genitourinary: Genitourinary: Reports no additional male genitourinary complaints Endocrine: Endocrine: Reports fatigue Allergic/Immunologic: Allergic/Immunologic: Reports wheezing [facility] Medical History Chronic back pain BPH (benign prostatic hyperplasia) Nicotine dependence Cannabis use disorder, moderate, dependence Cocaine use disorder Pulmonary nodules Emphysema of lung Anxiety Depression Asthma Surgical History Hx of cholecystectomy Social History Household Members: None Housing: Apartment Do you presently have visiting nurse or other home services: Yes Unable to assess alcohol history related to: Unknown Alcohol intake: current Alcohol intake frequency: holidays/special occasions only Alcohol type: beer Patient Tobacco Use Status: Current everyday Tobacco user Tobacco use type: Cigarette Cigarettes Per Day: 5 Smoked in Last 30 Days: Yes e-Cigarette/Vaping Use: Currently Using Second Hand Smoke Exposure: No Use of substances other than those prescribed or required for medical reasons: No Substance Use Type: Crack/Cocaine and Marijuana Advance Directives: Yes Advance Directives on File: Yes Advance Directives Date on File: 01/18/23 service: No Sexual orientation: Straight/Heterosexual Meds Allergies Allergy/AdvReac Type Severity Reaction Status Date / Time ibuprofen Allergy Intermediate Stomach Verified 04/01/23 00:58 Upset penicillin V Allergy Intermediate rash Verified 04/01/23 00:58 Active Medications: Current Medications Albuterol/Ipratropium (Albuterol/Iprat 2.5/0.5mg 3 Ml Ampul.Neb) 3 ml INHALE RQ4H WHILE AWAKE ADRIEN Albuterol/Ipratropium (Albuterol/Iprat 2.5/0.5mg 3 Ml Ampul.Neb) 3 ml INHALE Q4H PRN PRN Reason: Wheezing Sodium Chloride (Ns) 1,000 mls @ 999 mls/hr IV .Q1H1M ONE Stop: 04/01/23 03:32 Azithromycin 500 mg/ Sodium (Chloride) 250 mls @ 125 mls/hr IV Q24H ADRIEN Methylprednisolone Sodium Succinate (Methylprednisolone Sod Succ 40 Mg/Ml Vial) 40 mg IVPUSH Q12H [facility] Home Medications Medication Instructions Recorded Confirmed Last Taken Type pantoprazole 40 mg tablet,delayed 40 mg PO QAM 01/16/23 04/01/23 03/31/23 History release quetiapine 200 mg tablet 100 mg PO BID 01/16/23 04/01/23 03/31/23 History quetiapine 400 mg tablet 400 mg PO BEDTIME 01/16/23 04/01/23 03/30/23 History trazodone 50 mg tablet 50 mg PO BEDTIME PRN insomnia 04/01/23 04/01/23 03/31/23 History Physical Exam 2 Vital Signs and Narrative: Vital Signs: Last Vital Signs Temp 97.5 F 03/31/23 23:54 Pulse 102 H 04/01/23 02:22 Resp 16 04/01/23 02:22 BP 124/76 04/01/23 02:22 Pulse Ox 93 04/01/23 02:22 O2 Del Method Room Air 04/01/23 02:22 BMI result Body Mass Index 20.6 Middle-aged male lying in bed in mild distress Neck supple, no JVD Tachycardic with regular rhythm, S1-S2 heard Bilateral wheezing without crackles Abdomen soft nontender, no guarding, no rigidity Patient is awake, alert and oriented to self, place, time and person ; no focal motor deficit Psych: Normal mood No pedal edema Results Labs 03/31/23 22:57 03/31/23 22:57 Labs: Laboratory Results - last 24 hr 03/31/23 03/31/23 03/31/23 22:57 22:59 23:20 MCV 87.8 MCH 30.3 MCHC 34.5 RDW 14.9 Plt Count 351 MPV 8.6 L Absolute Nucleated RBC 0.000 Nucleated RBC % (auto) 0.0 VBG pH 7.40 VBG pCO2 43 VBG pO2 91 VBG HCO3 27 H VBG O2 Saturation 98.0 VBG Base Excess 2.3 Anion Gap 12 Estim Creat Clear Calc 74.6 Estimated GFR > 60 Random Glucose 125 H Calcium 9.3 Total Bilirubin 0.3 AST 21 ALT 21 Alkaline Phosphatase 101 Total Protein 6.8 Albumin 3.9 Influenza Type A (PCR) NEGATIVE Influenza Type B (PCR) NEGATIVE RSV RNA Qual (PCR) NEGATIVE SARS-CoV-2 RNA (RT-PCR) NEGATIVE Imaging Radiologist's Impressions: Impressions Chest X-Ray 03/31/23 23:15 IMPRESSION: Emphysema/COPD. No focal consolidation or pleural effusion. Assessment and Plan (1) Acute exacerbation of chronic obstructive pulmonary disease: Status: Acute Plan This is a 57-year-old male with pertinent history of mood disorder, COPD not on home oxygen, BPH, mixed hyperlipidemia, JERRY on CPAP, tobacco use disorder who presents to the emergency department for evaluation of dyspnea. #. Acute respiratory distress due to acute exacerbation of COPD. Will admit patient and initiate IV steroids. Scheduled and p.r.n. DuoNebs. Initiating azithromycin for pleiotropic effect. Continue home inhalers #. Mood disorder. Continue home mood stabilizers #. BPH. On Flomax #. Mixed hyperlipidemia. On statin #. JERRY. Continue CPAP at bedtime #. Tobacco use disorder. Counseled regarding cessation. Nicotine patch while in the hospital #. Reactive leukocytosis Med rec pending DVT prophylaxis: Lovenox Full code Time Spent With Patient Time: Total time managing care of this patient today ____ minutes. Quality Stroke Does the patient have a stroke diagnosis?: No VTE Prior VTE?: No VTE Risk Level:: Medical - moderate - high VTE Device Contraindication: Treatment Not Indicated VTE Drug Contraindication: N/A - Med Ordered
[2023-04-01] MEDS: 0.9 % Sodium Chloride 1,000 ML 999 ML IV (02:46)
[2023-04-01] MEDS: Azithromycin 500 MG in 0.9 % Sodium Chloride 250 ML 125 MG IV (03:04)
[2023-04-01] MEDS: Zolpidem Tartrate 5 MG TABLET PO ×2 (03:06→20:20)
[2023-04-01] MEDS: methylPREDNISolone Sod Succ 40 MG/ML VIAL IVPUSH ×2 (03:06→14:11)
[2023-04-01] MEDS: Enoxaparin Sodium 40 MG/0.4 ML SYRINGE SUBCUT (03:06)
[2023-04-01] MEDS: QUEtiapine Fumarate 400 MG TABLET PO ×2 (03:13→20:20)
[2023-04-01] MEDS: Acetaminophen 325 MG TABLET 650 MG PO (03:13)
[2023-04-01] MEDS: Nicotine 14 MG PATCH.TD24 TRANSDERMA (03:13)
[2023-04-01] MEDS: Potassium Chloride Packet 20 MEQ PACKET 40 MEQ PO (03:13)
[2023-04-01 03:30] LABS: Alanine Aminotransferase 20 U/L (0-40); Albumin Level 3.5 g/dL (3.5-5.0); Alkaline Phosphatase 92 U/L (39-117); Anion Gap 13 (12-20); Aspartate Amino Transferase 20 U/L (5-37); Bilirubin Total 0.3 mg/dL (0.0-1.0); Blood Urea Nitrogen 12 mg/dL (9-16); Calcium 8.4 mg/dL (8.4-10.2); Carbon Dioxide 24 mmol/L (22-29); Chloride 108 mmol/L (96-108); Creatinine Clr Calc Pharmacy 71.1; Estimated Glomerular Filt Rate > 60; Glucose Random 183 mg/dL (60-115); Potassium 3.1 mmol/L (3.3-5.1); Sodium 142 mmol/L (135-145)
[2023-04-01] MEDS: Albuterol/Iprat 2.5/0.5MG 3 ML AMPUL.NEB INHALE ×7 (05:02→23:14)
[2023-04-01] MEDS: Baclofen 10 MG TABLET PO ×3 (07:53→20:20)
[2023-04-01] MEDS: Tamsulosin HCL 0.4 MG CAPSULE 0.8 MG PO (07:53)
[2023-04-01] MEDS: hydrOXYzine HCL 50 MG TABLET PO ×3 (07:53→20:20)
[2023-04-01] MEDS: Omeprazole 20 MG CAPSULE.DR PO (07:53)
[2023-04-01] MEDS: clonazePAM 0.5 MG TABLET PO ×2 (07:54→20:20)
[2023-04-01] MEDS: Venlafaxine HCl ER 75 MG CAP.ER.24H PO (08:46)
[2023-04-01] MEDS: VerapamiL HCL SR 120 MG TABLET.ER PO (08:46)
[2023-04-01] MEDS: QUEtiapine Fumarate 100 MG TABLET PO ×2 (08:46→20:20)
[2023-04-01] MEDS: 0.9 % Sodium Chloride Flush 3 ML SYRINGE IVFLUSH ×3 (08:48→20:20)
--- NOTE | 2023-04-01 09:18 | PM.EVENT ---
Event Note Date of Service: 04/01/23 Event Note: I personally saw and evaluated this pt, he was admitted this morning w/ resp difficulty d/t copd exacerbation, improving. A/P today per H and P from this morning. Time Spent With Patient Time: Total time managing care of this patient today ____ minutes.
--- NOTE | 2023-04-01 09:41 | PC.NURSE ---
luanne is stating he is having pain from coughing, utilized prn tylenol, patient declining tylenol. awrae no new changes to medications at this time
--- NOTE | 2023-04-01 11:10 | PC.NURSE ---
patient RN neon installer called requesting to speak to RN about pt pain control. patient had called her 5 times saying he was not being treated for pain, patient has been offered pain medication per mar and has refused asking for something different, spoke to neon installer stating this.
--- NOTE | 2023-04-01 11:24 | PC.NURSE ---
pt requesting to speak to MD with carpenter maintenance. Provider aware
[2023-04-01] MEDS: guaiFEN/Codeine SF 200/20/10ML 10 ML LIQUID 5 ML PO ×2 (12:20→18:01)
--- NOTE | 2023-04-01 19:03 | PC.RT ---
Pt states they do not use CPAP at home
[2023-04-01] MEDS: Topiramate 25 MG TABLET 50 MG PO (20:20)
[2023-04-01] MEDS: Atorvastatin Calcium 40 MG TABLET PO (20:20)
[2023-04-01] MEDS: Mirtazapine 15 MG TABLET PO (20:20)
[2023-04-02] VITALS (10 sets, daily range): BP systolic 124–138; BP diastolic 67–90; PULSE 102–118; RESP 18–28; TEMP 36.2–37.1; O2SAT 91–95
[2023-04-02] MEDS: methylPREDNISolone Sod Succ 40 MG/ML VIAL IVPUSH ×2 (00:32→14:15)
[2023-04-02] MEDS: hydrOXYzine HCL 50 MG TABLET PO ×4 (01:51→19:47)
[2023-04-02] MEDS: Enoxaparin Sodium 40 MG/0.4 ML SYRINGE SUBCUT (01:51)
[2023-04-02] MEDS: guaiFEN/Codeine SF 200/20/10ML 10 ML LIQUID 5 ML PO ×3 (01:51→16:53)
[2023-04-02] MEDS: Azithromycin 500 MG in 0.9 % Sodium Chloride 250 ML 125 MG IV (01:51)
[2023-04-02 03:25] LABS: ABG Base Excess 1.2 mmol/L; ABG HCO3 26 mmol/L (22-26); ABG pCO2 42 mmHg (32-45); ABG pH 7.39 (7.35-7.45); ABG pO2 65 mmHg (83-108)
[2023-04-02 03:31] LABS: ABG Refer to POC result
--- NOTE | 2023-04-02 03:45 | PC.NURSE ---
pt with audible exp wheezes received several ud tx's and iv solumedrol with no effect on RA.Lubrication Technician and notified came to see pt .ordered ABG's and CXR.
[2023-04-02] MEDS: Albuterol/Iprat 2.5/0.5MG 3 ML AMPUL.NEB INHALE ×6 (04:23→19:27)
[2023-04-02] MEDS: Nicotine 14 MG PATCH.TD24 TRANSDERMA (07:59)
[2023-04-02] MEDS: Baclofen 10 MG TABLET PO ×3 (07:59→19:47)
[2023-04-02] MEDS: Venlafaxine HCl ER 75 MG CAP.ER.24H PO (07:59)
[2023-04-02] MEDS: Tamsulosin HCL 0.4 MG CAPSULE 0.8 MG PO (08:00)
[2023-04-02] MEDS: 0.9 % Sodium Chloride Flush 3 ML SYRINGE IVFLUSH ×3 (08:00→23:39)
[2023-04-02] MEDS: Omeprazole 20 MG CAPSULE.DR PO (08:00)
[2023-04-02] MEDS: QUEtiapine Fumarate 100 MG TABLET PO ×2 (08:00→19:46)
[2023-04-02] MEDS: clonazePAM 0.5 MG TABLET PO ×2 (08:00→19:47)
[2023-04-02] MEDS: VerapamiL HCL SR 120 MG TABLET.ER PO (08:00)
--- NOTE | 2023-04-02 09:55 | HO.PM.IMPN ---
Subjective Subjective Date of Service: 04/02/23 Interval History: c/o pain with breathing, wheezing Physical Exam Vital Signs: Vital Signs: Last Vital Signs Temp 97.1 F 04/02/23 07:43 Pulse 110 H 04/02/23 08:11 Resp 21 H 04/02/23 08:11 BP 138/85 04/02/23 07:43 Pulse Ox 95 04/02/23 07:43 O2 Del Method Nasal Cannula 04/02/23 07:43 O2 Flow Rate 2 04/02/23 07:43 BMI result Body Mass Index 22.0 Const: Other: General: AO X 3, no acute distress Resp: ex/insp wheeze, mld accessory muscle use GI: +BS, NT, no distention Skin: No rash Neuro: motor grossly intact Psych: appropriate affect Objective Data Active Medications Acetaminophen (Acetaminophen 325 Mg Tablet) 650 mg PO Q6H PRN PRN Reason: Pain, Mild (Pain Scale 1-3) Last Admin: 04/01/23 03:13 Dose: 650 mg Documented By: FRANK Albuterol/Ipratropium (Albuterol/Iprat 2.5/0.5mg 3 Ml Ampul.Neb) 3 ml INHALE RQ4H WHILE AWAKE [facility] Last Admin: 04/02/23 08:11 Dose: 3 ml Documented By: CHRIS Albuterol/Ipratropium (Albuterol/Iprat 2.5/0.5mg 3 Ml Ampul.Neb) 3 ml INHALE Q4H PRN PRN Reason: Wheezing Last Admin: 04/02/23 04:23 Dose: 3 ml Documented By: KAYY Atorvastatin Calcium (Atorvastatin Calcium 40 Mg Tablet) 40 mg PO BEDTIME [facility] Last Admin: 04/01/23 20:20 Dose: 40 mg Documented By: CRUZITO Baclofen (Baclofen 10 Mg Tablet) 10 mg PO TID [facility] Last Admin: 04/02/23 07:59 Dose: 10 mg Documented By: CJ Clonazepam (Clonazepam 0.5 Mg Tablet) 0.5 mg PO BID [facility] Last Admin: 04/02/23 08:00 Dose: 0.5 mg Documented By: CJ Enoxaparin Sodium (Enoxaparin Sodium 40 Mg/0.4 Ml Syringe) 40 mg SUBCUT Q24H [facility] Last Admin: 04/02/23 01:51 Dose: 40 mg Documented By: CRUZITO Guaifenesin/Codeine Phosphate (Guaifen/Codeine Sf 200/20/10ml 10 Ml Liquid) 5 ml PO Q6H PRN PRN Reason: Cough Last Admin: 04/02/23 07:58 Dose: 5 ml Documented By: CJ Hydroxyzine HCl (Hydroxyzine Hcl 50 Mg Tablet) 50 mg PO Q6H [facility] Last Admin: 04/02/23 08:00 Dose: 50 mg Documented By: CJ Azithromycin 500 mg/ Sodium (Chloride) 250 mls @ 125 mls/hr IV Q24H [facility] Last Infusion: 04/02/23 04:00 Dose: Infused Documented By: CRUZITO Melatonin (Melatonin 3 Mg Tablet) 6 mg PO BEDTIME PRN PRN Reason: Insomnia Methylprednisolone Sodium Succinate (Methylprednisolone Sod Succ 40 Mg/Ml Vial) 40 mg IVPUSH Q12H [facility] Last Admin: 04/02/23 00:32 Dose: 40 mg Documented By: CRUZITO Mirtazapine (Mirtazapine 15 Mg Tablet) 15 mg PO BEDTIME [facility] Last Admin: 04/01/23 20:20 Dose: 15 mg Documented By: CRUZITO Nicotine (Nicotine 14 Mg Patch.Td24) 14 mg TRANSDERMA DAILY [facility] Last Admin: 04/02/23 07:59 Dose: 14 mg Documented By: CJ Omeprazole (Omeprazole 20 Mg Capsule.Dr) 20 mg PO DAILY [facility] Last Admin: 04/02/23 08:00 Dose: 20 mg Documented By: CJ Ondansetron HCl (Ondansetron Hcl 4 Mg/2 Ml Vial) 4 mg IVPUSH Q8H PRN PRN Reason: Nausea and Vomiting Quetiapine Fumarate (Quetiapine Fumarate 100 Mg Tablet) 100 mg PO BID [facility] Last Admin: 04/02/23 08:00 Dose: 100 mg Documented By: CJ Quetiapine Fumarate (Quetiapine Fumarate 400 Mg Tablet) 400 mg PO BEDTIME [facility] Last Admin: 04/01/23 20:20 Dose: 400 mg Documented By: CRUZITO Sodium Chloride (0.9 % Sodium Chloride Flush 3 Ml Syringe) 3 ml IVFLUSH QSHIFT [facility] Last Admin: 04/02/23 08:00 Dose: 3 ml Documented By: CJ Tamsulosin HCl (Tamsulosin Hcl 0.4 Mg Capsule) 0.8 mg PO DAILY [facility] Last Admin: 04/02/23 08:00 Dose: 0.8 mg Documented By: CJ Topiramate (Topiramate 25 Mg Tablet) 50 mg PO BEDTIME [facility] Last Admin: 04/01/23 20:20 Dose: 50 mg Documented By: CRUZITO Trazodone HCl (Trazodone Hcl 50 Mg Tablet) 50 mg PO BEDTIME PRN PRN Reason: insomnia Venlafaxine HCl (Venlafaxine Hcl Er 75 Mg Cap.Er.24h) 75 mg PO DAILY [facility] Last Admin: 04/02/23 07:59 Dose: 75 mg Documented By: CJ Verapamil HCl (Verapamil Hcl Sr 120 Mg Tablet.Er) 120 mg PO DAILY [facility]; Protocol Last Admin: 04/02/23 08:00 Dose: 120 mg Documented By: CJ Zolpidem Tartrate (Zolpidem Tartrate 5 Mg Tablet) 5 mg PO BEDTIME [facility] Last Admin: 04/01/23 20:20 Dose: 5 mg Documented By: CRUZITO Labs 03/31/23 22:57 04/01/23 03:03 Labs: Laboratory Results - last 24 hr 04/02/23 03:17 O2 Saturation 89.0 ABG pH at Pt Temp 7.39 ABG pCO2 at Pt Temp 42 ABG pO2 at Pt Temp 65 L ABG HCO3 26 ABG Base Excess (Actual) 1.2 Microbiology Microbiology Results: Microbiology 04/01/23 03:03 Blood Culture - Preliminary Blood - Venous No growth after 24 hours. 04/01/23 03:03 Blood Culture - Preliminary Blood - Venous No growth after 24 hours. Assessment and Plan (1) Acute exacerbation of chronic obstructive pulmonary disease: Status: Acute (2) COPD (chronic obstructive pulmonary disease): Status: Acute Plan This is a 57-year-old male with pertinent history of mood disorder, COPD not on home oxygen, BPH, mixed hyperlipidemia, JERRY on CPAP, tobacco use disorder who presents to the emergency department for evaluation of dyspnea. #. Acute respiratory distress due to acute exacerbation of COPD. Still in exacerbation with wheezing, and abnormal wob continue IV steroid, bronchidlators by Neb, cough med, tramadol for pain, #. Mood disorder. Continue home mood stabilizers #. BPH. On Flomax #. Mixed hyperlipidemia. On statin #. JERRY. Continue CPAP at bedtime #. Tobacco use disorder. Counseled regarding cessation. Nicotine patch while in the hospital #. Reactive leukocytosis DVT prophylaxis: Lovenox full codoe Time Spent With Patient Time: Total time managing care of this patient today ____ minutes. Quality Stroke Does the patient have a stroke diagnosis?: No VTE Prior VTE?: No VTE Risk Level:: Medical - moderate - high VTE Device Contraindication: Treatment Not Indicated VTE Drug Contraindication: N/A - Med Ordered
[2023-04-02] MEDS: traMADoL HCL 50 MG TABLET 25 MG PO ×2 (10:19→19:46)
--- NOTE | 2023-04-02 15:50 | PC.NURSE ---
Pt continues with elevated HR, MD notified, pt is not symptomatic.
--- NOTE | 2023-04-02 16:21 | MHC.CM.PN ---
CM MET WITH PT WITH DIE ATTACHER PT REPORTS HE LIVES ALONE AND IS INDEPENDENT WITH CARE ALTHOUGH HE FEELS HE COULD USE HELP PT REPORTS HE IS ACTIVE WITH [facility] HE HAS NO DME HCP ON FILE PCP: MARIE [facility] OBSERVATION NOTICE DELIVERED DCP: HOME, RESUME [facility] SHUTTLE TRANSPORT
--- NOTE | 2023-04-02 17:55 | PC.NURSE ---
Pt with O2 Sat 85% on RA, RR 26, continues wheezing, RT called for PRN updraft.
[2023-04-02] MEDS: Mirtazapine 15 MG TABLET PO (19:46)
[2023-04-02] MEDS: Topiramate 25 MG TABLET 50 MG PO (19:46)
[2023-04-02] MEDS: Zolpidem Tartrate 5 MG TABLET PO (19:46)
[2023-04-02] MEDS: QUEtiapine Fumarate 400 MG TABLET PO (19:47)
[2023-04-02] MEDS: Atorvastatin Calcium 40 MG TABLET PO (19:47)
[2023-04-03] VITALS (8 sets, daily range): BP systolic 138–146; BP diastolic 76–90; PULSE 103–112; RESP 18–22; TEMP 36.1–36.3; O2SAT 90–93
[2023-04-03] MEDS: hydrOXYzine HCL 50 MG TABLET PO ×4 (02:16→21:07)
[2023-04-03] MEDS: methylPREDNISolone Sod Succ 40 MG/ML VIAL IVPUSH ×2 (02:16→14:18)
[2023-04-03] MEDS: Enoxaparin Sodium 40 MG/0.4 ML SYRINGE SUBCUT (02:18)
[2023-04-03] MEDS: Azithromycin 500 MG in 0.9 % Sodium Chloride 250 ML 125 MG IV (02:20)
[2023-04-03] MEDS: traMADoL HCL 50 MG TABLET 25 MG PO ×2 (02:32→12:11)
[2023-04-03] MEDS: Albuterol/Iprat 2.5/0.5MG 3 ML AMPUL.NEB INHALE ×4 (07:29→20:23)
[2023-04-03] MEDS: Omeprazole 20 MG CAPSULE.DR PO (07:39)
[2023-04-03] MEDS: Baclofen 10 MG TABLET PO ×3 (07:39→21:07)
[2023-04-03] MEDS: 0.9 % Sodium Chloride Flush 3 ML SYRINGE IVFLUSH ×2 (07:39→17:53)
[2023-04-03] MEDS: Tamsulosin HCL 0.4 MG CAPSULE 0.8 MG PO (07:39)
[2023-04-03] MEDS: Nicotine 14 MG PATCH.TD24 TRANSDERMA (07:40)
[2023-04-03] MEDS: clonazePAM 0.5 MG TABLET PO ×2 (07:40→21:07)
[2023-04-03] MEDS: Venlafaxine HCl ER 75 MG CAP.ER.24H PO (07:40)
[2023-04-03] MEDS: VerapamiL HCL SR 120 MG TABLET.ER PO (07:40)
[2023-04-03] MEDS: QUEtiapine Fumarate 100 MG TABLET PO ×2 (07:40→21:07)
--- NOTE | 2023-04-03 09:45 | P.PNIM_ITS ---
Subjective Subjective Date of Service: 04/03/23 Interval History: Still sos, wheezing Physical Exam 2 Vital Signs: Vital Signs: Last Vital Signs Temp 97.3 F 04/03/23 08:00 Pulse 112 H 04/03/23 08:00 Resp 20 04/03/23 08:00 BP 138/88 04/03/23 08:00 Pulse Ox 92 04/03/23 08:00 O2 Del Method Room Air 04/03/23 08:00 O2 Flow Rate 2 04/02/23 07:43 BMI result Body Mass Index 22.0 Const: Other: General: AO X 3, no acute distress Resp: ex/insp wheeze, mld accessory muscle use GI: +BS, NT, no distention Skin: No rash Neuro: motor grossly intact Psych: appropriate affect Objective Data Active Medications Acetaminophen (Acetaminophen 325 Mg Tablet) 650 mg PO Q6H PRN PRN Reason: Pain, Mild (Pain Scale 1-3) Last Admin: 04/01/23 03:13 Dose: 650 mg Documented By: FRANK Albuterol/Ipratropium (Albuterol/Iprat 2.5/0.5mg 3 Ml Ampul.Neb) 3 ml INHALE RQ4H WHILE AWAKE [facility] Last Admin: 04/03/23 07:29 Dose: 3 ml Documented By: ELIZABETH Albuterol/Ipratropium (Albuterol/Iprat 2.5/0.5mg 3 Ml Ampul.Neb) 3 ml INHALE Q4H PRN PRN Reason: Wheezing Last Admin: 04/02/23 17:59 Dose: 3 ml Documented By: CHIRS Atorvastatin Calcium (Atorvastatin Calcium 40 Mg Tablet) 40 mg PO BEDTIME [facility] Last Admin: 04/02/23 19:47 Dose: 40 mg Documented By: PENELOPE Baclofen (Baclofen 10 Mg Tablet) 10 mg PO TID [facility] Last Admin: 04/03/23 07:39 Dose: 10 mg Documented By: CYNDI Clonazepam (Clonazepam 0.5 Mg Tablet) 0.5 mg PO BID [facility] Last Admin: 04/03/23 07:40 Dose: 0.5 mg Documented By: CYNDI Enoxaparin Sodium (Enoxaparin Sodium 40 Mg/0.4 Ml Syringe) 40 mg SUBCUT Q24H [facility] Last Admin: 04/03/23 02:18 Dose: 40 mg Documented By: SERGIO Guaifenesin/Codeine Phosphate (Guaifen/Codeine Sf 200/20/10ml 10 Ml Liquid) 5 ml PO Q6H PRN PRN Reason: Cough Last Admin: 04/02/23 16:53 Dose: 5 ml Documented By: CJ Hydroxyzine HCl (Hydroxyzine Hcl 50 Mg Tablet) 50 mg PO Q6H [facility] Last Admin: 04/03/23 07:39 Dose: 50 mg Documented By: CYNDI Azithromycin 500 mg/ Sodium (Chloride) 250 mls @ 125 mls/hr IV Q24H [facility] Last Infusion: 04/03/23 04:20 Dose: Infused Documented By: SERGIO Melatonin (Melatonin 3 Mg Tablet) 6 mg PO BEDTIME PRN PRN Reason: Insomnia Methylprednisolone Sodium Succinate (Methylprednisolone Sod Succ 40 Mg/Ml Vial) 40 mg IVPUSH Q12H [facility] Last Admin: 04/03/23 02:16 Dose: 40 mg Documented By: SERGIO Mirtazapine (Mirtazapine 15 Mg Tablet) 15 mg PO BEDTIME [facility] Last Admin: 04/02/23 19:46 Dose: 15 mg Documented By: PENELOPE Nicotine (Nicotine 14 Mg Patch.Td24) 14 mg TRANSDERMA DAILY [facility] Last Admin: 04/03/23 07:40 Dose: 14 mg Documented By: CYNDI Omeprazole (Omeprazole 20 Mg Capsule.Dr) 20 mg PO DAILY [facility] Last Admin: 04/03/23 07:39 Dose: 20 mg Documented By: CYNDI Ondansetron HCl (Ondansetron Hcl 4 Mg/2 Ml Vial) 4 mg IVPUSH Q8H PRN PRN Reason: Nausea and Vomiting Quetiapine Fumarate (Quetiapine Fumarate 100 Mg Tablet) 100 mg PO BID [facility] Last Admin: 04/03/23 07:40 Dose: 100 mg Documented By: CYNDI Quetiapine Fumarate (Quetiapine Fumarate 400 Mg Tablet) 400 mg PO BEDTIME [facility] Last Admin: 04/02/23 19:47 Dose: 400 mg Documented By: PENELOPE Sodium Chloride (0.9 % Sodium Chloride Flush 3 Ml Syringe) 3 ml IVFLUSH QSHIFT [facility] Last Admin: 04/03/23 07:39 Dose: 3 ml Documented By: CYNDI Tamsulosin HCl (Tamsulosin Hcl 0.4 Mg Capsule) 0.8 mg PO DAILY [facility] Last Admin: 04/03/23 07:39 Dose: 0.8 mg Documented By: CYNDI Topiramate (Topiramate 25 Mg Tablet) 50 mg PO BEDTIME [facility] Last Admin: 04/02/23 19:46 Dose: 50 mg Documented By: PENELOPE Tramadol HCl (Tramadol Hcl 50 Mg Tablet) 25 mg PO Q6H PRN PRN Reason: Pain, Severe (Pain Scale 7-10) Last Admin: 04/03/23 02:32 Dose: 25 mg Documented By: SERGIO Trazodone HCl (Trazodone Hcl 50 Mg Tablet) 50 mg PO BEDTIME PRN PRN Reason: insomnia Venlafaxine HCl (Venlafaxine Hcl Er 75 Mg Cap.Er.24h) 75 mg PO DAILY [facility] Last Admin: 04/03/23 07:40 Dose: 75 mg Documented By: CYNDI Verapamil HCl (Verapamil Hcl Sr 120 Mg Tablet.Er) 120 mg PO DAILY [facility]; Protocol Last Admin: 04/03/23 07:40 Dose: 120 mg Documented By: CYNDI Zolpidem Tartrate (Zolpidem Tartrate 5 Mg Tablet) 5 mg PO BEDTIME [facility] Last Admin: 04/02/23 19:46 Dose: 5 mg Documented By: PENELOPE Labs 03/31/23 22:57 04/01/23 03:03 Microbiology Microbiology Results: Microbiology 04/01/23 03:03 Blood Culture - Preliminary Blood - Venous No growth after 48 hours. 04/01/23 03:03 Blood Culture - Preliminary Blood - Venous No growth after 48 hours. Assessment and Plan (1) Acute exacerbation of chronic obstructive pulmonary disease: Status: Acute (2) COPD (chronic obstructive pulmonary disease): Status: Acute Plan This is a 57-year-old male with pertinent history of mood disorder, COPD not on home oxygen, BPH, mixed hyperlipidemia, JERRY on CPAP, tobacco use disorder who presents to the emergency department for evaluation of dyspnea. # Acute respiratory distress due to acute exacerbation of COPD. Still in exacerbation with wheezing, and abnormal wob, so continue IV steroid for at least one more day, bronchidlators by Neb, cough med, tramadol for pain, # Mood disorder. Continue home mood stabilizers # BPH. On Flomax # Mixed hyperlipidemia. On statin # JERRY. Continue CPAP at bedtime # Tobacco use disorder. Counseled regarding cessation. Nicotine patch while in the hospital #. Reactive leukocytosis DVT prophylaxis: Lovenox full codoe Time Spent With Patient Time: Total time managing care of this patient today ____ minutes. Quality Stroke Does the patient have a stroke diagnosis?: No VTE Prior VTE?: No VTE Risk Level:: Medical - moderate - high VTE Device Contraindication: Treatment Not Indicated VTE Drug Contraindication: N/A - Med Ordered
--- NOTE | 2023-04-03 11:53 | MHC.CLN ---
NUTRITION CONSULT FOR POOR PO AND WEIGHT LOSS. REVIEW OF WEIGHT HX SHOWS WEIGHT FLUCTUATION WITH OVERALL WEIGHT LOSS -8.5% X ONE YEAR. NO SIGNIFICANT WEIGHT CHANGE X 6 MONTHS. REQUESTING ENSURE SUPPLEMENT. ADDING ENSURE MAX PROTEIN TID. PROVIDES ADDITIONAL 450 KCALS, 90 G PROTEIN. CURRENT INTAKE 50-100%.
[2023-04-03] MEDS: Acetaminophen 325 MG TABLET 650 MG PO (12:10)
[2023-04-03] MEDS: guaiFEN/Codeine SF 200/20/10ML 10 ML LIQUID 5 ML PO (12:11)
[2023-04-03] MEDS: Atorvastatin Calcium 40 MG TABLET PO (21:06)
[2023-04-03] MEDS: Zolpidem Tartrate 5 MG TABLET PO (21:07)
[2023-04-03] MEDS: Mirtazapine 15 MG TABLET PO (21:07)
[2023-04-03] MEDS: Topiramate 25 MG TABLET 50 MG PO (21:07)
[2023-04-03] MEDS: QUEtiapine Fumarate 400 MG TABLET PO (21:07)
--- NOTE | 2023-04-03 21:25 | PC.NURSE ---
patient asking for his lower dentures,unable to find in patient room,charge nurse Lucrecia is helping to find them,day DELANEY Rosenberg reported earlier that patient did not have his dentures earlier in a day
[2023-04-04] MEDS: 0.9 % Sodium Chloride Flush 3 ML SYRINGE IVFLUSH ×2 (00:34→09:27)
[2023-04-04] MEDS: hydrOXYzine HCL 50 MG TABLET PO ×2 (02:17→09:27)
[2023-04-04] MEDS: methylPREDNISolone Sod Succ 40 MG/ML VIAL IVPUSH (02:17)
[2023-04-04] MEDS: Azithromycin 500 MG in 0.9 % Sodium Chloride 250 ML 125 MG IV (02:17)
[2023-04-04] MEDS: Enoxaparin Sodium 40 MG/0.4 ML SYRINGE SUBCUT (02:18)
[2023-04-04] MEDS: guaiFEN/Codeine SF 200/20/10ML 10 ML LIQUID 5 ML PO (03:48)
[2023-04-04] MEDS: traMADoL HCL 50 MG TABLET 25 MG PO (03:54)
[2023-04-04 05:21] VITALS: PULSE 103; O2SAT 90
[2023-04-04] MEDS: Albuterol/Iprat 2.5/0.5MG 3 ML AMPUL.NEB INHALE ×3 (05:21→12:24)
[2023-04-04 07:01] VITALS: BP 140/70; PULSE 96; RESP 20; TEMP 36.6; O2SAT 93
--- NOTE | 2023-04-04 07:33 | PHA.MEDREC ---
Pharmacy Consult ? Medication Reconciliation Pharmacy has completed the medication reconciliation. Reviewed med rec done by nursing
[2023-04-04 08:02] VITALS: PULSE 86; RESP 16; O2SAT 93
[2023-04-04] MEDS: Nicotine 14 MG PATCH.TD24 TRANSDERMA (09:26)
[2023-04-04] MEDS: Omeprazole 20 MG CAPSULE.DR PO (09:26)
[2023-04-04] MEDS: clonazePAM 0.5 MG TABLET PO (09:26)
[2023-04-04] MEDS: Venlafaxine HCl ER 75 MG CAP.ER.24H PO (09:26)
[2023-04-04] MEDS: VerapamiL HCL SR 120 MG TABLET.ER PO (09:27)
[2023-04-04] MEDS: Baclofen 10 MG TABLET PO (09:27)
[2023-04-04] MEDS: Tamsulosin HCL 0.4 MG CAPSULE 0.8 MG PO (09:27)
[2023-04-04] MEDS: QUEtiapine Fumarate 100 MG TABLET PO (09:27)
--- NOTE | 2023-04-04 12:22 | MHC.CM.PN ---
DP: PT HAS BEEN MEDICALLY CLEARED FOR DC HOME, NO SERVICES. C SHUTTLE HAS BEEN BOOKED FOR 1 PM, RN AWARE.
[2023-04-04 12:25] VITALS: PULSE 106; RESP 16; O2SAT 93
--- NOTE | 2023-04-18 19:04 | PM.DS ---
DS: Providers Provider Date of Service: 04/18/23 Date of admission: 04/03/23 10:57 Date of discharge: 04/18/23 Primary care physician: Vince Doran MD Attending physician on discharge: Aiden Christie DS: Diagnosis Discharge Diagnosis (1) Acute exacerbation of chronic obstructive pulmonary disease: Status: Acute (2) COPD (chronic obstructive pulmonary disease): Status: Acute DS: Summary Hospital Course Hospital Course: Date of service and discharge: 04/04/2023. 57-year-old male with pertinent history of mood disorder, COPD not on home oxygen, BPH, mixed hyperlipidemia, JERRY on CPAP, tobacco use disorder who presents to the emergency department for evaluation of dyspnea. Patient states that started 1 day prior to presentation. It is associated with wheezing and nonproductive cough. It has been progressive over the last 24 hours. Patient tried his home inhaler without relief. He continues to smoke tobacco. Denies fever and chills. Denies chest discomfort, palpitations, shortness of breath, abdominal pain, changes in urinary or bowel habits. In the emergency department, patient with significant wheezing despite multiple DuoNeb treatments. hospital course: Patient came to the hospital because of COPD exacerbation-started on nebs, steroids,, cough medication-seems to be improved. Going home with p.o. steroids. Still staff are no something for Follow-up with PCP outpatient. Assessment plan coordination time spent 50 minute. Time Spent with Patient Time attestation: Total time managing care of this patient today ____ minutes. Discharge coordination time: Greater than 30 minutes Quality: Safe Use of Opioids Does Pt have an Active Cancer Diagnosis on the Problem List?: No Quality: Stroke Does the patient have a stroke diagnosis?: No Physical Exam Vital Signs: Vital Signs: Last Vital Signs Temp 97.8 F 04/04/23 07:01 Pulse 106 H 04/04/23 12:25 Resp 16 04/04/23 12:25 BP 140/70 H 04/04/23 07:01 Pulse Ox 93 04/04/23 07:01 O2 Del Method Room Air 04/04/23 07:01 O2 Flow Rate 2 04/02/23 07:43 BMI result Body Mass Index 22.0 Appearance: Alert.? Oriented X3.? not in distress.? cvs: rrr, [id number] , no murmur res: clear to auscultation ,no rhonchii or wheezing abd: no rebound or guarding ,nt, bs present. ext pulses present , no cyanosis . neuro: axo3 , nonfocal. DS: Data Imaging Chest x-ray: Radiologist's impression: ITS Impressions Chest X-Ray 03/31/23 23:15 IMPRESSION: Emphysema/COPD. No focal consolidation or pleural effusion. Chest X-Ray 04/02/23 03:10 IMPRESSION: No active cardiopulmonary disease. Discharge Plan Discharge Anticipated Discharge Date/Time: 04/04/23 11:56 Patient Disposition: Home, Self-Care Discharge Diagnosis: Acute respiratory distress due to acute exacerbation of COPD Referrals: Vince Doran MD [Primary Care Provider] - 1 Week Discharge Medications: New azithromycin 250 mg tablet 250 mg PO DAILY 2 Days Qty: 2 0RF prednisone 20 mg tablet 40 mg PO DAILY Qty: 8 0RF codeine-guaifenesin 10-100 mg/5 mL Liquid 5 ml PO Q6H PRN (Reason: Cough) Qty: 50 0RF Continued verapamil 120 mg Tablet Extended Release 120 mg PO DAILY Qty: 30 0RF Protocol: Hold for SBP/HR < HOLD for SBP < : 90 HOLD for HR < : 60 atorvastatin 40 mg Tablet 40 mg PO BEDTIME Qty: 30 0RF venlafaxine 75 mg Capsule,Extended Release 24hr 75 mg PO DAILY Qty: 30 0RF mirtazapine 15 mg Tablet 15 mg PO BEDTIME Qty: 30 0RF trazodone 50 mg tablet 50 mg PO BEDTIME PRN (Reason: insomnia) pantoprazole 40 mg tablet,delayed release (DR/EC) 40 mg PO QAM quetiapine 400 mg tablet 400 mg PO BEDTIME quetiapine 200 mg tablet 100 mg PO BID baclofen 10 mg Tablet 10 mg PO TID 7 Days Qty: 21 0RF tamsulosin 0.4 mg Capsule 0.8 mg PO DAILY 7 Days Qty: 14 0RF hydroxyzine HCl 50 mg Tablet 50 mg PO Q6H 7 Days Qty: 28 0RF topiramate 25 mg Tablet 50 mg PO BEDTIME 7 Days Qty: 14 0RF zolpidem 5 mg Tablet 5 mg PO BEDTIME 7 Days Qty: 7 0RF clonazepam 0.5 mg Tablet 0.5 mg PO BID 7 Days Qty: 14 1RF No Action Stiolto Respimat 2.5-2.5 mcg/actuation mist 2 puff inhalation DAILY 30 Days Qty: 4 6RF Discharge Orders: Discharge Order (Routine); Ordered 04/04/23 Ordered By: Aiden Christie Diet: Advance to usual diet Activity on Discharge: As tolerated Stand Alone Forms: Patient Portal Discharge page Care Plan Goals: Patient came to the hospital because of COPD exacerbation-started on nebs, steroids,, cough medication-seems to be improved. Going home with p.o. steroids. Follow-up with PCP outpatient. Health Concerns: As above. Plan of Treatment: As above. Assessment: As above. Discharge Date/Time: 04/04/23 13:31
== END 2023-04-04 13:31 | disposition home or self-care (01) | DRG 140 ==
LOC: HO.ED 04-01 00:04 → HO.EDOVER 04-01 02:47 → HO.S3 04-01 14:33
PROVIDERS: Internal Medicine; Admitting Provider Student in an Organized Health Care Education/Training Program; Emergency Provider Internal Medicine; PCP Internal Medicine; Visit Provider Internal Medicine
DX: J43.9 Emphysema, unspecified (principal); D72.829 Elevated white blood cell count, unspecified; F39 Unspecified mood [affective] disorder; R06.03 Acute respiratory distress; E78.2 Mixed hyperlipidemia; F17.210 Nicotine dependence, cigarettes, uncomplicated; G47.33 Obstructive sleep apnea (adult) (pediatric); Z71.6 Tobacco abuse counseling; N40.0 Benign prostatic hyperplasia without lower urinary tract symptoms; Z20.822 Contact with and (suspected) exposure to COVID-19; Z79.899 Other long term (current) drug therapy
CPT/HCPCS: 0241U; 36415; 71045; 80053; 82803; 84484; 85027; 87040; 93005; 94640; 99285; J0456; J1650; J2270; J2920; J3475

== ENCOUNTER → 2023-04-01 02:44 | Outpatient (BNV) | payer MEDICAID, SELFPAY | PROVIDERS: Admitting Provider Student in an Organized Health Care Education/Training Program; Emergency Provider Internal Medicine; PCP Internal Medicine; Visit Provider Student in an Organized Health Care Education/Training Program | DX: J44.1 Chronic obstructive pulmonary disease with (acute) exacerbation (principal) | CPT/HCPCS: 99222; 99232; 99239; 99499 ==

== ENCOUNTER 2023-04-14 10:50 | Outpatient (AMB) | payer MEDICAID, SELFPAY ==
--- NOTE | 2023-04-14 10:52 | MHC.OFFVIS ---
Intake Vital Signs 04/14/23 10:53 Height 5 ft 4 in Weight 123 lb 7.342 oz BMI 21.2 BP 104/62 Blood Pressure Location Rt brachial Position Sitting Pulse 89 Pulse Source Doppler Pulse Oximetry (%) 97 Oxygen Delivery Method Room Air Intake Visit Reasons: Emphysema Allergies ibuprofen Allergy (Intermediate, Verified 04/14/23 10:54) Stomach Upset penicillin V Allergy (Intermediate, Verified 04/14/23 10:54) rash HPI Emphysema HPI Details 56-year-old gentleman, recent 30+ pack-year smoker, followed for underlying moderate COPD, pulmonary nodules, and unrestful sleep/snoring. After the last office visit patient had several hospitalizations, some ambulated to exacerbation of underlying COPD. Now his symptoms are well controlled on current regimen of Stiolto and albuterol MDI. Continue current regimen. He was not able to tolerate home sleep study. [facility] Medical History Chronic back pain BPH (benign prostatic hyperplasia) Nicotine dependence Cannabis use disorder, moderate, dependence Cocaine use disorder Pulmonary nodules Emphysema of lung Anxiety Depression Asthma Surgical History Hx of cholecystectomy Social History Household Members: None Housing: Apartment Do you presently have visiting nurse or other home services: Yes Unable to assess alcohol history related to: Unknown Alcohol intake: current Alcohol intake frequency: holidays/special occasions only Alcohol type: beer Patient Tobacco Use Status: Current everyday Tobacco user Tobacco use type: Cigarette Cigarettes Per Day: 4 e-Cigarette/Vaping Use: Currently Using Second Hand Smoke Exposure: No Substance Use Type: Crack/Cocaine Advance Directives Date on File: 01/18/23 service: No Sexual orientation: Straight/Heterosexual Review of Systems Const Reports daytime sleepiness, Denies excessive sweating, Reports fatigue, Denies fever(s), Denies lethargy, Denies malaise, Denies night sweats, Denies snoring and Denies weight loss Eyes Denies blurry vision and Denies itchy eyes ENT Denies nasal congestion, Denies post nasal drip, Denies sinus pain, Denies sinus pressure and Denies other ( Thrush) Card Denies chest pain, Denies pedal edema, Denies dyspnea, Denies orthopnea and Denies paroxysmal nocturnal dyspnea Resp Denies cough, Denies hemoptysis, Denies excessive phlegm production, Denies dyspnea, Denies snoring and Denies wheezing GI Denies abdominal pain and Denies heartburn Musc Denies myalgias, Denies arthralgias and Denies joint swelling Skin/Breast Denies rash Neuro Denies memory loss and Denies seizure-like activity Psych Denies abnormal sleep pattern, Denies anxiety and Denies memory loss Endo Denies excessive sweating, Reports fatigue and Denies heat intolerance Alexei/Lymph Denies easy bruising Aller/Immun Denies itchy eyes, Denies seasonal rhinorrhea and Denies wheezing Physical Exam Vital Signs: Last Vital Signs Pulse 89 04/14/23 10:53 BP 104/62 04/14/23 10:53 Pulse Ox 97 04/14/23 10:53 Oxygen Delivery Method Room Air 04/14/23 10:53 BMI result Body Mass Index 21.2 Const General: no acute distress and alert Nutritional Appearance: not obese Orientation/consciousness: Other orientation findings ( oriented) HEENT Head: Yes atraumatic Eyes General: appearance normal, both eyes and all related structures Sclerae: sclerae normal EOM: EOMs intact bilaterally Neck Neck: Yes supple Lymphatic: no lymphadenopathy noted Resp Effort & Inspection: normal respiratory effort and no use of accessory muscles Auscultation: clear to auscultation bilaterally Cardio Rate: regular rate Rhythm: regular rhythm Heart sounds: no gallops, no murmurs and no rubs Skin General skin exam: other ( warm) Extrem General: No clubbing, No cyanosis and No edema Assessment & Plan Assessment & Plan (1) COPD (chronic obstructive pulmonary disease): Code(s): J44.9 - Chronic obstructive pulmonary disease, unspecified Plan: Well controlled on Stiolto and albuterol MDI. Continue current regimen. (2) JERRY (obstructive sleep apnea): Code(s): G47.33 - Obstructive sleep apnea (adult) (pediatric) Plan: Secondary to underlying psychiatric condition is unable to have home sleep study. Will order in lab sleep study. Orders: Orders RT PSG in-lab sleep study Today G47.33 - Obstructive sleep apnea (adult) (pediatric) Medications: New tiotropium-olodaterol 2.5-2.5 mcg/actuation (Stiolto Respimat) 2 puffs inhalation DAILY 4 grams 6RF 30 days G47.33 - Obstructive sleep apnea (adult) (pediatric) Coding Level of Care Code Est Pt Level 4 (45847) Diagnoses COPD (chronic obstructive pulmonary disease) J44.9 JERRY (obstructive sleep apnea) G47.33
[2023-04-14 10:53] VITALS: BP 104/62; PULSE 89; O2SAT 97; BMI 21.2
== END 2023-04-14 11:07 | disposition home or self-care (01) ==
PROVIDERS: PCP Internal Medicine; Visit Provider Internal Medicine Pulmonary Disease
DX: J44.9 Chronic obstructive pulmonary disease, unspecified (principal); G47.33 Obstructive sleep apnea (adult) (pediatric)
CPT/HCPCS: 99214

== ENCOUNTER → 2023-04-14 10:50 | Outpatient (BNVA) | payer MEDICAID, SELFPAY | PROVIDERS: PCP Internal Medicine; Visit Provider Internal Medicine Pulmonary Disease | DX: J44.9 Chronic obstructive pulmonary disease, unspecified (principal); G47.33 Obstructive sleep apnea (adult) (pediatric) | CPT/HCPCS: 99212 ==

== ENCOUNTER 2023-05-01 12:07 | Outpatient (REF) | payer MEDICAID, SELFPAY ==
--- NOTE | ~2023-05-01 | XR_ITS ---
EXAMINATION: XR LUMBOSACRAL SPINE CLINICAL INFORMATION: Midline low back pain without sciatica. Patient states 6 months of low back pain COMPARISON: June 30, 2017. TECHNIQUE: Three views of the lumbosacral spine. FINDINGS: Surgical clips right upper quadrant. Slight rightward curvature of the lumbar spine. Atherosclerotic aortic calcifications. Facet arthritis in the lower lumbar spine. Multilevel lumbar spondylosis with progression of advanced degenerative changes at L5-S1 and loss of disc space height. Degenerative changes in the bilateral sacroiliac joints with sclerosis. XR/XR lumbar spine 2-3V IMPRESSION: Multilevel lumbar spondylosis with progression of advanced degenerative changes at L5-S1 and loss of disc space height.
== END 2023-05-01 12:08 | disposition home or self-care (01) ==
LOC: HO.HHCX 12:07
PROVIDERS: Visit Provider Internal Medicine
DX: M54.50 Low back pain, unspecified (principal)
CPT/HCPCS: 72100

== ENCOUNTER 2023-05-02 16:54 | Outpatient (REF) | payer MEDICAID, SELFPAY | END 2023-05-02 16:55 | disposition home or self-care (01) | LOC: HO.HHCLNP 16:54 | PROVIDERS: Visit Provider Internal Medicine | DX: F19.99 Other psychoactive substance use, unspecified with unspecified psychoactive substance-induced disorder (principal); F14.10 Cocaine abuse, uncomplicated | CPT/HCPCS: 36415; 80353 ==

== ENCOUNTER 2023-05-16 14:23 | Inpatient (IN) | payer OTHER, MEDICAID, SELFPAY ==
--- NOTE | ~2023-05-16 | CT_ITS ---
EXAMINATION: CT HEAD WITHOUT CONTRAST CLINICAL INFORMATION: Fall. Head trauma. COMPARISON: Previous head CT most recent July 2022 TECHNIQUE: Contiguous axial imaging was performed from the skull base to vertex without intravenous administration of contrast. This CT examination was performed using dose optimization techniques as appropriate, variously including the following: *Automated exposure control *Adjustment of mA and/or kV according to patient size (this includes techniques or standardized protocols for targeted exams where dose is matched to indication/reason for exam; i.e. extremities or head) *Use of iterative reconstruction technique DLP: 594 mGy-cm FINDINGS: There is no evidence of an extra-axial collection. There is no evidence of intra-axial or extra-axial hemorrhage. The ventricles and extra-axial CSF spaces are appropriate. Hood-white matter differentiation is normal. No mass, mass effect or infarct. No Skull fracture. Visualized paranasal sinuses, mastoid air cells and middle ears are clear. CT/CT head/brain wo IV con IMPRESSION: Unremarkable exam.
[2023-05-16 14:29] VITALS: BP 132/84; PULSE 91; RESP 16; TEMP 36.6; O2SAT 95; BMI 25.1
[2023-05-16 14:34] VITALS: BP 96/58; PULSE 93; TEMP 36.3; O2SAT 95
--- NOTE | 2023-05-16 14:47 | ED.PSYCH ---
HPI - Psych General Chief Complaint: Psychiatric Symptoms Stated Complaint: SI,FROM MD OFFICE PER EMS Time Seen by Provider: 05/16/23 14:29 Source: patient and EMS Mode of arrival: wheelchair Limitations: no limitations History of Present Illness HPI Narrative: patient comes to the emergency room via ambulance from the [facility]. Patient states that he feels ashamed, sad that he relapsed. Patient states that he was clean for 15 days, free of alcohol and drugs. However, he relapsed yesterday. Patient states that he has had suicidal thoughts, no plan. Patient denies any falls or any injuries. patient went to see his provider at [facility], patient mentioned that he has been having hallucinations, states it has been going on for about a week now. Patient denies SI or HI. Related Data Home Medications Medication Instructions Recorded Confirmed pantoprazole 40 mg tablet,delayed 40 mg PO QAM 01/16/23 04/01/23 release quetiapine 200 mg tablet 100 mg PO BID 01/16/23 04/01/23 quetiapine 400 mg tablet 400 mg PO BEDTIME 01/16/23 04/01/23 trazodone 50 mg tablet 50 mg PO BEDTIME PRN insomnia 04/01/23 04/01/23 Previous Rx's Medication Instructions Recorded atorvastatin 40 mg tablet 40 mg PO BEDTIME #30 tabs 10/04/22 mirtazapine 15 mg tablet 15 mg PO BEDTIME #30 tabs 10/04/22 venlafaxine 75 mg capsule,extended 75 mg PO DAILY #30 caps 10/04/22 release 24 hr verapamil 120 mg tablet,extended 120 mg PO DAILY #30 tabs 10/04/22 release baclofen 10 mg tablet 10 mg PO TID 7 days #21 tabs 02/24/23 clonazepam 0.5 mg tablet 0.5 mg PO BID 7 days #14 tabs 02/24/23 hydroxyzine HCl 50 mg tablet 50 mg PO Q6H 7 days #28 tabs 02/24/23 tamsulosin 0.4 mg capsule 0.8 mg (2 x 0.4 mg) PO DAILY 7 02/24/23 days #14 caps topiramate 25 mg tablet 50 mg (2 x 25 mg) PO BEDTIME 7 02/24/23 days #14 tabs zolpidem 5 mg tablet 5 mg PO BEDTIME 7 days #7 tabs 02/24/23 azithromycin 250 mg tablet 250 mg PO DAILY 2 days #2 tabs 04/04/23 codeine 10 mg-guaifenesin 100 mg/5 5 ml PO Q6H PRN Cough #50 mL 04/04/23 mL oral liquid prednisone 20 mg tablet 40 mg (2 x 20 mg) PO DAILY #8 tabs 04/04/23 tiotropium 2.5 mcg-olodaterol 2.5 2 puff inhalation DAILY 30 days #4 04/14/23 mcg/actuation mist for inhalation grams (Stiolto Respimat) Allergies Allergy/AdvReac Type Severity Reaction Status Date / Time ibuprofen Allergy Intermediate Stomach Verified 04/14/23 10:54 Upset penicillin V Allergy Intermediate rash Verified 04/14/23 10:54 Review of Systems Review of Systems: Constitutional : No Weight loss, No Fever, No Chills, No Night Sweats, No Fatigue, No Malaise ENT/Mouth : No Hearing loss, No Ear Pain, No Nasal Congestion, No Sinus Pain, No Hoarseness, No sore throat, No Rhinorrhea, No Swallowing Difficulty Eyes: No Eye Pain, No Swelling, No Redness, No Foreign Body, No Discharge, No Vision Changes Cardiovascular : No Chest Pain, No SOB, No Dyspnea on Exertion, No Orthopnea, No Edema, No Palpitations Respiratory : No Cough, No Sputum, No Wheezing, No Smoke Exposure, No Dyspnea Gastrointestinal : No Nausea, No Vomiting, No Diarrhea, No Constipation, No abdominal Pain, No Hematochezia, No Melena Genitourinary : no irregular bleeding, No Dysuria, No Urinary Frequency, No Hematuria, No Urinary Incontinence, No Urgency, No Flank Pain, No Urinary Flow Changes, No Hesitancy Musculoskeletal : No joint pain, No Myalgias, No Joint Swelling Skin : No Skin Lesions, No rash Neuro : No Weakness, No Numbness, No Paresthesias, No Loss of Consciousness, No Dizziness, No Headache Psych : No anxiety, complaining of depression, vague SI with no plan. No homicidal ideation, admits to relapse, currently using drugs and alcohol again Heme/Lymph: No Bruising, No Bleeding,No Lymphadenopathy Endocrine : No Polyuria, No Polydipsia, No Temperature Intolerance PMFSH Past Medical History Medical History Chronic back pain BPH (benign prostatic hyperplasia) Nicotine dependence Cannabis use disorder, moderate, dependence Cocaine use disorder Pulmonary nodules Emphysema of lung Anxiety Depression Asthma Surgical History Hx of cholecystectomy Social History Social History Household Members: None Housing: Apartment Do you presently have visiting nurse or other home services: Yes Unable to assess alcohol history related to: Unknown Alcohol intake: current Alcohol intake frequency: holidays/special occasions only Alcohol type: beer Patient Tobacco Use Status: Current everyday Tobacco user Tobacco use type: Cigarette Cigarettes Per Day: 4 e-Cigarette/Vaping Use: Currently Using Second Hand Smoke Exposure: No Substance Use Type: Crack/Cocaine Advance Directives Date on File: 01/18/23 service: No Sexual orientation: Straight/Heterosexual Physical Exam Vital Signs: Vital Signs: Last Vital Signs Temp 97.4 F 05/16/23 14:34 Pulse 93 05/16/23 14:34 Resp 16 05/16/23 14:29 BP 96/58 L 05/16/23 14:34 Pulse Ox 95 05/16/23 14:34 O2 Del Method Room Air 05/16/23 14:34 BMI result Body Mass Index 25.1 Course Course Course Narrative: - all of patient's labs pending - care team consult pending - physician of starvation started at 15:00 Medical Decision Making Differential Diagnosis Differential Diagnoses: The differential diagnosis associated with the presentation includes ( anxiety, depression, polysubstance abuse, schizophrenia) Admission/Observation Consideration of admission/observation: Escalation of care including admission/observation considered ( patient will remain under observation until behavioral health care team determines the patient's disposition) Discharge Plan Discharge Clinical Impression: Polysubstance abuse, Suicidal ideation Patient Disposition: Still a Patient Prescriptions: No Action verapamil 120 mg Tablet Extended Release 120 mg PO DAILY Qty: 30 0RF Protocol: Hold for SBP/HR < HOLD for SBP < : 90 HOLD for HR < : 60 atorvastatin 40 mg Tablet 40 mg PO BEDTIME Qty: 30 0RF venlafaxine 75 mg Capsule,Extended Release 24hr 75 mg PO DAILY Qty: 30 0RF mirtazapine 15 mg Tablet 15 mg PO BEDTIME Qty: 30 0RF trazodone 50 mg tablet 50 mg PO BEDTIME PRN (Reason: insomnia) azithromycin 250 mg tablet 250 mg PO DAILY 2 Days Qty: 2 0RF prednisone 20 mg tablet 40 mg PO DAILY Qty: 8 0RF codeine-guaifenesin 10-100 mg/5 mL Liquid 5 ml PO Q6H PRN (Reason: Cough) Qty: 50 0RF pantoprazole 40 mg tablet,delayed release (DR/EC) 40 mg PO QAM quetiapine 400 mg tablet 400 mg PO BEDTIME quetiapine 200 mg tablet 100 mg PO BID baclofen 10 mg Tablet 10 mg PO TID 7 Days Qty: 21 0RF tamsulosin 0.4 mg Capsule 0.8 mg PO DAILY 7 Days Qty: 14 0RF hydroxyzine HCl 50 mg Tablet 50 mg PO Q6H 7 Days Qty: 28 0RF topiramate 25 mg Tablet 50 mg PO BEDTIME 7 Days Qty: 14 0RF zolpidem 5 mg Tablet 5 mg PO BEDTIME 7 Days Qty: 7 0RF clonazepam 0.5 mg Tablet 0.5 mg PO BID 7 Days Qty: 14 1RF Stiolto Respimat 2.5-2.5 mcg/actuation mist 2 puff inhalation DAILY 30 Days Qty: 4 6RF
[2023-05-16 15:08] LABS: MANUAL DIFF FLAG NO
[2023-05-16 15:11] LABS: Basophils Absolute Auto 0.1 X10*3/uL (0.0-0.2); Basophils Percent Auto 1.1 % (0-2); Eosinophils Absolute Auto 0.2 X10*3/uL (0.0-0.4); Eosinophils Percent Auto 3.2 % (0-4); Hematocrit 37.5 % (42.0-52.0); Hemoglobin 12.7 g/dl (14.0-18.0); Imm Gran Abs Auto 0.01 X10*3/uL (0.00-0.03); Imm Gran Pct Auto 0.2 % (0.0-0.4); Lymphocytes Absolute Auto 1.9 X10*3/uL (1.2-4.9); Lymphocytes Percent Auto 30.3 % (20-40); Mean Corpuscular HGB Conc 33.9 g/dl (31.0-36.0); Mean Corpuscular Hemoglobin 30.5 pg (27.0-33.0); Mean Corpuscular Volume 89.9 fL (80.0-98.0); Mean Platelet Volume 8.9 fL (9.4-12.4); Monocytes Absolute Auto 0.5 X10*3/uL (0.1-1.2); Monocytes Percent Auto 7.3 % (2-11); Neutrophils Absolute Auto 3.7 x10*3/uL (2.0-8.3); Neutrophils Percent Auto 57.9 % (45-73); Platelet Count 318 X10*3/uL (160-400); Red Blood Count 4.17 X10*6/uL (4.60-5.80); Red Cell Distribution Width 14.4 % (11.0-16.0); White Blood Count 6.3 X10*3/uL (4.8-10.8)
[2023-05-16 15:34] LABS: Ethanol < 10 mg/dL
[2023-05-16 15:37] LABS: Alanine Aminotransferase 18 U/L (0-40); Albumin Level 3.8 g/dL (3.5-5.0); Alkaline Phosphatase 93 U/L (39-117); Anion Gap 14 (12-20); Aspartate Amino Transferase 19 U/L (5-37); Bilirubin Direct 0.1 mg/dL (0.0-0.5); Bilirubin Total 0.4 mg/dL (0.0-1.0); Blood Urea Nitrogen 14 mg/dL (9-16); Calcium 9.1 mg/dL (8.4-10.2); Carbon Dioxide 25 mmol/L (22-29); Chloride 106 mmol/L (96-108); Creatinine Clr Calc Pharmacy 74.1; Estimated Glomerular Filt Rate > 60; Glucose Random 122 mg/dL (60-115); Potassium 3.6 mmol/L (3.3-5.1); Sodium 141 mmol/L (135-145); Total Protein 6.3 g/dL (6.5-8.0)
--- NOTE | 2023-05-16 16:00 | PC.NURSE ---
pt aox4 but reports AH/VH. passive SI without a plan/intent. eating ice cream. anxiety- to give ativen per pt request/md order. no resp distress. +CMS.
[2023-05-16 16:17] LABS: COVID-19 Test Negative (Negative); IDNOW Serial# BCCEAD1C
[2023-05-16 16:29] VITALS: BP 146/85; PULSE 81; RESP 18; TEMP 36.8; O2SAT 96
[2023-05-16] MEDS: LORazepam 1 MG TABLET 2 MG PO (16:40)
[2023-05-16 19:17] LABS: Appearance Urine Clear; Color Urine Dark Yellow; Glucose Urine UA Negative (Negative); Leukocyte Esterase Urine Small (1+) (Negative); Nitrite Urine Negative (Negative); UMIC TRIGGER UACC YES; Urine Blood Small (1+) (Negative); Urine Ketones Trace mg/dL (Negative); Urine Protein Trace mg/dL (Neg-Trace)
[2023-05-16 19:20] LABS: Amphetamine Screen Urine Not Detected (Not Detect); Barbiturates, Urine Not Detected (Not Detect); Benzodiazepines Screen Urine POSITIVE (Not Detect); Cannabinoid Screen Urine POSITIVE (Not Detect); Cocaine Screen Urine POSITIVE (Not Detect); Fentanyl, urine Not Detected (Not Detect); Opiate Screen Urine Not Detected (Not Detect); Phencyclidine Screen Urine Not Detected (Not Detect)
[2023-05-16 20:08] LABS: Bacteria Urine None Seen (None Seen); UACC Culture Trigger YES
[2023-05-16 21:26] VITALS: BP 134/95; PULSE 95; RESP 20; TEMP 36.4; O2SAT 97
--- NOTE | 2023-05-16 21:51 | ECG_ITS ---
Test Reason : MEDICAL CLEARANCE Blood Pressure : / mmHG Vent. Rate : 094 BPM Atrial Rate : 094 BPM P-R Int : 154 ms QRS Dur : 098 ms QT Int : 380 ms P-R-T Axes : 085 -49 084 degrees QTc Int : 475 ms Normal sinus rhythm Right atrial enlargement Left anterior fascicular block Pulmonary disease pattern Incomplete right bundle branch block Nonspecific T wave abnormality Prolonged QT Abnormal ECG When compared with ECG of 31-MAR-2023 22:47, QRS axis Shifted left Nonspecific T wave abnormality now evident in Lateral leads Referred By: Meghann Engel Electronically Signed By:JIE MCDANIELS MD
[2023-05-17 00:08] VITALS: BP 139/97; PULSE 85; RESP 19; TEMP 36.8; O2SAT 96
[2023-05-17] MEDS: traZODone HCL 50 MG TABLET PO (00:08)
[2023-05-17] MEDS: QUEtiapine Fumarate 400 MG TABLET PO ×2 (00:09→20:20)
[2023-05-17] MEDS: clonazePAM 0.5 MG TABLET PO ×3 (00:09→20:20)
[2023-05-17] MEDS: Topiramate 25 MG TABLET 50 MG PO ×2 (00:09→20:20)
[2023-05-17] MEDS: Mirtazapine 15 MG TABLET PO ×2 (00:09→20:20)
[2023-05-17] MEDS: Zolpidem Tartrate 5 MG TABLET PO ×2 (00:09→20:20)
--- NOTE | 2023-05-17 05:35 | PC.NURSE ---
Patient slept through the night, no distress observed/reported, medication compliant, disposition per [facility] is section 12 inpatient bed search, VSS, behavior non concerning, labs completed/resulted, pending EKG, will continue to monitor.
[2023-05-17] MEDS: Omeprazole 20 MG CAPSULE.DR PO (06:20)
[2023-05-17] MEDS: Baclofen 10 MG TABLET PO ×3 (09:21→20:20)
[2023-05-17] MEDS: Tamsulosin HCL 0.4 MG CAPSULE 0.8 MG PO (09:21)
[2023-05-17] MEDS: Venlafaxine HCl ER 75 MG CAP.ER.24H PO (09:22)
[2023-05-17] MEDS: QUEtiapine Fumarate 100 MG TABLET PO ×2 (09:22→18:13)
--- NOTE | 2023-05-17 09:28 | PC.NURSE ---
nad, polite and calm, medicated as ordered and back in his room, offers no complaints
[2023-05-17] MEDS: VerapamiL HCL SR 120 MG TABLET.ER PO (10:38)
[2023-05-17 11:14] VITALS: BP 118/76; PULSE 90; RESP 19; O2SAT 98
[2023-05-17 13:34] VITALS: BP 125/76; PULSE 102; RESP 16; TEMP 36.2; O2SAT 96
[2023-05-17 13:42] VITALS: BMI 17.0
[2023-05-17] MEDS: hydrOXYzine HCL 50 MG TABLET PO (14:35)
[2023-05-17] MEDS: Acetaminophen 325 MG TABLET 650 MG PO ×2 (14:35→21:05)
--- NOTE | 2023-05-17 15:27 | PC.ADMIT ---
Augustin arrived to the unit at 1330, he signed Conditional Voluntary, sharps check done by RN. Upon approach he appears sad, expresses hopelessness I just want to and be with my mom, he denied having a plan states My mom is the only women that really loved me. Augustin starts crying, he reports endorsing depression, anxiety, he also reports AVH states I see shadows, and the voices tell me to just end it. He reports having poor appetite, poor sleep, I was drinking hard liquor for two weeks straight and doing cocaine he reports he lost about 15 pounds. He reports he had a fall just prior to admission, reports back pain, some redness on forehead provider notified. When asked if he would seek out staff if urge to hurt self occurred stated Yes.
--- NOTE | 2023-05-17 17:15 | P.EN_ITS ---
Event Note Date of Service: 05/17/23 Event Note: Patient is a 58-year-old male with a PMH significant for HTN, HLD, COPD, migraines, hx of nephrolithiasis, depression, and anxiety who was admitted to Psychiatry after relapsing on 05/15/2023 and experiencing hallucinations. Patient was seen and evaluated in our ED. Medical consult for multiple complaints. Pt states he fell at home last night due to lightheadedness and dizziness, striking his forehead on the door. Patient states that he has subsequently been experiencing lightheadedness and dizziness, headache, and blurry vision. Patient apparently denied these complaints last night when he initially presented to our ED. Pt does have a small hematoma and superficial abrasion on forehead. Will get CT of head to rule out any acute intracranial abnormalities. Patient also complains of 2-3 days of ?kidney pain?. Pain is located bilaterally on his flanks. Patient has long history of nephrolithiasis and pre scented last psychiatric admission with similar complaints of flank pain. CT of abdomen and pelvis on 02/26/2023 found multiple bilateral nonobstructing renal calculi measuring up to 4 mm in size. Patient had a follow-up renal ultrasound on 03/24/2023 which found a 3 mm left kidney stone at the midpole, but no other stones apparent on ultrasound that showed up on the CT. Of note, stones less than 5 mm in size showed pass freely without need for any intervention. Pt already on Flowmax. During last psychiatric admission patient had similar c omplaints flank pain and was given a few doses of oxycodone. Given small size of renal calculi will treat more conservatively with Celebrex 200 mg. Pt should take with a full glass of water and food if possible. Alternatively can treat with acetaminophen. Time Spent With Patient Time: Total time managing care of this patient today ____ minutes.
[2023-05-17 20:01] VITALS: BP 144/86; PULSE 95; TEMP 36; O2SAT 97
[2023-05-17] MEDS: Celecoxib 200 MG CAPSULE PO (20:19)
[2023-05-17] MEDS: Atorvastatin Calcium 40 MG TABLET PO (20:20)
[2023-05-18] MEDS: traZODone HCL 50 MG TABLET PO (01:20)
[2023-05-18] MEDS: Omeprazole 20 MG CAPSULE.DR PO (07:04)
[2023-05-18 07:24] LABS: Alanine Aminotransferase 14 U/L (0-40); Albumin Level 3.5 g/dL (3.5-5.0); Alkaline Phosphatase 80 U/L (39-117); Anion Gap 12 (12-20); Aspartate Amino Transferase 15 U/L (5-37); Bilirubin Total 0.2 mg/dL (0.0-1.0); Blood Urea Nitrogen 8 mg/dL (9-16); Carbon Dioxide 24 mmol/L (22-29); Chloride 108 mmol/L (96-108); Cholesterol 137 mg/dL (<200); Estimated Glomerular Filt Rate > 60; Glucose Fasting 89 mg/dL (60-99); HDL Cholesterol 44 mg/dL (>40); LDL Cholesterol Calculated 76 mg/dL (<100); Potassium 3.6 mmol/L (3.3-5.1); Sodium 140 mmol/L (135-145); Total Protein 5.8 g/dL (6.5-8.0); Triglycerides 89 mg/dL (<150)
[2023-05-18 08:07] VITALS: BP 105/68; PULSE 87; RESP 16; TEMP 36.4; O2SAT 96
[2023-05-18] MEDS: Fluticasone/Vilanterol 200/25 BLST.W.DEV 1 PUFF INHALE (08:46)
[2023-05-18] MEDS: Tamsulosin HCL 0.4 MG CAPSULE 0.8 MG PO (08:50)
[2023-05-18] MEDS: Celecoxib 200 MG CAPSULE PO ×2 (08:50→20:45)
[2023-05-18] MEDS: Baclofen 10 MG TABLET PO ×3 (08:50→20:45)
[2023-05-18] MEDS: Venlafaxine HCl ER 75 MG CAP.ER.24H PO (08:50)
[2023-05-18] MEDS: QUEtiapine Fumarate 100 MG TABLET PO ×2 (08:50→17:41)
[2023-05-18] MEDS: clonazePAM 0.5 MG TABLET PO ×2 (08:50→20:45)
[2023-05-18] MEDS: Nicotine 21 MG PATCH.TD24 TRANSDERMA (08:51)
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
[2023-05-18] MEDS: VerapamiL HCL SR 120 MG TABLET.ER PO (09:35)
[2023-05-18 10:28] VITALS: BMI 20.3
[2023-05-18] MEDS: hydrOXYzine HCL 50 MG TABLET PO (12:52)
--- NOTE | 2023-05-18 16:07 | MHC.CLN ---
RE: CONSULT HT 64 WT 118#IBW 130# =/-10% BMI 20.3 WNL PT IS 91% IBW INDICATES ADEQUATE WT FOR HT PREVIOUS WT HX FOLLOWS: 53.6KG (05/18/23) 57KG (02/16/23) 6% NONSIGNIFICANT WT LOSS X 90DAYS 58.9KG (10/03/22) 9% NONSIGNIFICANT WT LOSS X 8 MONTHS 63.5KG (06/02/22) 16% NONSIGNIFICANT WT LOSS X 1 YEAR AVG WT APPROX. 62KG PT REPORTED, I was drinking hard liquor for two weeks straight and doing cocaine he reports he lost about 15 pounds. PT ACTIVELY USING COCAINE WITH POLY SUBSTANCE ABUSE INCREASES NUTRITION RISK R/T POOR PO INTAKE, SUPPRESSION OF APPETITE AND WT LOSS LABS: NOTED BUN 8, ALBUMIN WNL DIET RX: REGULAR -APPROPRIATE WILL ADD MAGIC CUP TID TO INCREASE KCALS MONITOR PO INTAKE CLOSELY
[2023-05-18] MEDS: LORazepam 1 MG TABLET PO (17:41)
[2023-05-18 20:15] VITALS: BP 109/68; PULSE 98; RESP 16; TEMP 36.8; O2SAT 95
[2023-05-18] MEDS: Topiramate 25 MG TABLET 50 MG PO (20:44)
[2023-05-18] MEDS: Mirtazapine 15 MG TABLET PO (20:44)
[2023-05-18] MEDS: Acetaminophen 325 MG TABLET 650 MG PO (20:44)
[2023-05-18] MEDS: Atorvastatin Calcium 40 MG TABLET PO (20:45)
[2023-05-18] MEDS: Zolpidem Tartrate 5 MG TABLET PO (20:45)
[2023-05-18] MEDS: QUEtiapine Fumarate 400 MG TABLET PO (20:45)
[2023-05-19] MEDS: hydrOXYzine HCL 50 MG TABLET PO ×2 (03:04→13:23)
[2023-05-19] MEDS: Acetaminophen 325 MG TABLET 650 MG PO (03:04)
[2023-05-19] MEDS: traZODone HCL 50 MG TABLET PO (03:04)
[2023-05-19 06:00] VITALS: BP 106/66; PULSE 92; TEMP 36.6; O2SAT 95
[2023-05-19] MEDS: LORazepam 1 MG TABLET 2 MG PO (06:32)
[2023-05-19] MEDS: Omeprazole 20 MG CAPSULE.DR PO (06:32)
--- NOTE | 2023-05-19 09:22 | HO.PSYCHPN ---
Subjective Subjective Date of Service: 05/19/23 Reason For Visit: crisis Subjective Notes: Conditional Voluntary Interim History: Reviewed with . automation qa lead present. Patient reports feelings of depression and anxiety. He reports ongoing auditory hallucinations at this time; states voices are telling me to kill myself . Pt reports suicidal ideation with no plan. C/O back pain; hx of taking tramadol with positive effect. Medication Compliance: Yes Side effects from medications: No Attending Groups: No Review of Systems Constitutional: Reports as per HPI Eyes: Reports as per HPI Reports as per HPI Cardiovascular: Reports as per HPI Respiratory: Reports as per HPI Gastrointestinal: Reports as per HPI Genitourinary: Reports as per HPI Musculoskeletal: Reports as per HPI Skin/Breast: Reports as per HPI Reports as per HPI Psychiatric: Reports as per HPI Endocrine: Reports as per HPI Hematologic/Lymphatic: Reports as per HPI Allergic/Immunologic: Reports as per HPI Mental Status Exam Mental Status Exam Narrative: Pt is alert and oriented; behavior is cooperative and calm; dressed in casual attire; mood is described as depressed ; eye contact appropriate; Speech is normal rate, volume and prosody and not pressured; no psychomotor agitation/retardation present; thought process is organized; Thought content is on tx; otherwise pertinent to relevant topics and without any delusional content, paranoid ideations or grandiosity; denies HI. Reports suicidal ideation with no plan. denies HI/VH. reports auditory hallucinations. Patients insight and judgment are poor. Diagnostics Vital Signs (24Hr): Vital Signs - 24 hr 05/18/23 20:15 05/19/23 06:00 Temperature 98.3 F 97.9 F Pulse Rate 98 92 Respiratory Rate 16 Blood Pressure 109/68 106/66 Pulse Oximetry 95 95 Oxygen Delivery Method Room Air Room Air BMI result Body Mass Index 20.3 Labs 05/16/23 15:02 05/18/23 06:28 Labs: Laboratory Results - last 48 hr 05/18/23 06:28 Sodium 140 Potassium 3.6 Chloride 108 Carbon Dioxide 24 Anion Gap 12 BUN 8 L Creatinine 0.88 Estim Creat Clear Calc 66.0 Estimated GFR > 60 Fasting Glucose 89 Calcium 9.0 Total Bilirubin 0.2 AST 15 ALT 14 Alkaline Phosphatase 80 Total Protein 5.8 L Albumin 3.5 Triglycerides 89 Cholesterol 137 LDL Cholesterol, Calc 76 HDL Cholesterol 44 Imaging Radiology Impressions: ITS Impressions Head CT 05/17/23 18:48 IMPRESSION: Unremarkable exam. Medications Medications Current Medications Acetaminophen (Acetaminophen 325 Mg Tablet) 650 mg PO Q6H PRN PRN Reason: Headache/Pain Mild Scale (1-3) Last Admin: 05/19/23 03:04 Dose: 650 mg Al Hydroxide/Mg Hydroxide (Magnesium Hydrox/Alum Hydrox 30 Ml Oral.Susp) 30 ml PO Q6H PRN PRN Reason: Heartburn/Nausea Albuterol Sulfate (Albuterol Sulfate 90 Mcg 8 Gm Inhaler) 2 puff INHALE Q4H PRN PRN Reason: Wheezing Atorvastatin Calcium (Atorvastatin Calcium 40 Mg Tablet) 40 mg PO BEDTIME [facility] Last Admin: 05/18/23 20:45 Dose: 40 mg Baclofen (Baclofen 10 Mg Tablet) 10 mg PO TID [facility] Last Admin: 05/18/23 20:45 Dose: 10 mg Celecoxib (Celecoxib 200 Mg Capsule) 200 mg PO BID [facility] Last Admin: 05/18/23 20:45 Dose: 200 mg Clonazepam (Clonazepam 0.5 Mg Tablet) 0.5 mg PO BID [facility] Last Admin: 05/18/23 20:45 Dose: 0.5 mg Fluticasone/Vilanterol (Fluticasone/Vilanterol 200/25 Blst.W.Dev) 1 puff INHALE RDAILY [facility] Last Admin: 05/18/23 08:46 Dose: 1 puff Folic Acid (Folic Acid 1 Mg Tablet) 1 mg PO DAILY [facility] Hydroxyzine HCl (Hydroxyzine Hcl 50 Mg Tablet) 50 mg PO Q6H PRN PRN Reason: itch Last Admin: 05/19/23 03:04 Dose: 50 mg Lorazepam (Lorazepam 1 Mg Tablet) 1 mg PO Q4H PRN PRN Reason: CIWA score 6-10 Last Admin: 05/18/23 17:41 Dose: 1 mg Lorazepam (Lorazepam 1 Mg Tablet) 2 mg PO Q4H PRN PRN Reason: CIWA score 11 above Last Admin: 05/19/23 06:32 Dose: 2 mg Magnesium Hydroxide (Milk Of Magnesia 30 Ml Oral.Susp) 30 ml PO DAILY PRN PRN Reason: Constipation Mirtazapine (Mirtazapine 15 Mg Tablet) 15 mg PO BEDTIME [facility] Last Admin: 05/18/23 20:44 Dose: 15 mg Multivitamins/Vitamin C (Multivitamin Tablet) 1 tab PO DAILY [facility] Nicotine (Nicotine 21 Mg Patch.Td24) 21 mg TRANSDERMA DAILY [facility] Last Admin: 05/18/23 08:51 Dose: 21 mg Nicotine Polacrilex (Nicotine Polacrilex 2 Mg Gum) 4 mg BUCCAL Q2H PRN PRN Reason: Nicotine Cravings Omeprazole (Omeprazole 20 Mg Capsule.Dr) 20 mg PO DAILY@0630 [facility] Last Admin: 05/19/23 06:32 Dose: 20 mg Quetiapine Fumarate (Quetiapine Fumarate 100 Mg Tablet) 100 mg PO BID@0900,1800 [facility] Last Admin: 05/18/23 17:41 Dose: 100 mg Quetiapine Fumarate (Quetiapine Fumarate 400 Mg Tablet) 400 mg PO BEDTIME [facility] Last Admin: 05/18/23 20:45 Dose: 400 mg Tamsulosin HCl (Tamsulosin Hcl 0.4 Mg Capsule) 0.8 mg PO DAILY [facility] Last Admin: 05/18/23 08:50 Dose: 0.8 mg Thiamine HCl (Thiamine Hcl 100 Mg Tablet) 50 mg PO DAILY [facility] Tiotropium Mystic (Tiotropium Mystic 2.5 Mcg Inhaler) 2 puff INHALE DAILY [facility] Last Admin: 05/18/23 08:46 Dose: 2 puff Topiramate (Topiramate 25 Mg Tablet) 50 mg PO BEDTIME [facility] Last Admin: 05/18/23 20:44 Dose: 50 mg Trazodone HCl (Trazodone Hcl 50 Mg Tablet) 50 mg PO BEDTIME PRN PRN Reason: insomnia Last Admin: 05/19/23 03:04 Dose: 50 mg Venlafaxine HCl (Venlafaxine Hcl Er 75 Mg Cap.Er.24h) 75 mg PO DAILY [facility] Last Admin: 05/18/23 08:50 Dose: 75 mg Verapamil HCl (Verapamil Hcl Sr 120 Mg Tablet.Er) 120 mg PO DAILY [facility]; Protocol Last Admin: 05/18/23 09:35 Dose: 120 mg Zolpidem Tartrate (Zolpidem Tartrate 5 Mg Tablet) 5 mg PO BEDTIME [facility] Last Admin: 05/18/23 20:45 Dose: 5 mg Allergies Allergies Allergy/AdvReac Type Severity Reaction Status Date / Time ibuprofen Allergy Intermediate Stomach Verified 04/14/23 10:54 Upset penicillin V Allergy Intermediate rash Verified 04/14/23 10:54 Assessment & Plan Assessment & Plan (1) Bipolar 2 disorder, major depressive episode: Status: Acute Code(s): F31.81 - Bipolar II disorder (2) ETOH abuse: Status: Acute Code(s): F10.10 - Alcohol abuse, uncomplicated (3) Cocaine use disorder: Status: Acute Code(s): F14.10 - Cocaine abuse, uncomplicated (4) Cannabis use disorder, moderate, dependence: Status: Acute Code(s): F12.20 - Cannabis dependence, uncomplicated Plan Patient is a 58 year old male with hx of Bipolar d/o, polysubstance use, with hx of multiple inpatient psychiatric hospitalizations, who self presented to [facility] ER secondary to being assessed in the community by [facility] d/t increased depression, suicidal ideation and auditory hallucinations. Plan: CV 15 minute safety checks monitor for withdrawal symptoms Continue home medications 05/19: automation qa lead present. Patient reports feelings of depression and anxiety. He reports ongoing auditory hallucinations at this time; states voices are telling me to kill myself . Pt reports suicidal ideation with no plan. C/O back pain; hx of taking tramadol with positive effect. Start: tramadol 50mg PO BID PRN pain for 2 days. Risperidal 1mg PO bedtime. Patient educated on: diagnosis, medication risk/benefits and therapeutic strategies Informed Consent: understands Reason for continued inpatient stay Substantial Risk for: harm to self and med/psych decompensation Time Spent With Patient Time: Total time managing care of this patient today _30___ minutes.
[2023-05-19] MEDS: Baclofen 10 MG TABLET PO ×3 (09:24→20:59)
[2023-05-19] MEDS: clonazePAM 0.5 MG TABLET PO ×2 (09:24→20:58)
[2023-05-19] MEDS: Tamsulosin HCL 0.4 MG CAPSULE 0.8 MG PO (09:24)
[2023-05-19] MEDS: VerapamiL HCL SR 120 MG TABLET.ER PO (09:25)
[2023-05-19] MEDS: QUEtiapine Fumarate 100 MG TABLET PO ×2 (09:25→17:25)
[2023-05-19] MEDS: Thiamine HCL 100 MG TABLET 50 MG PO (09:25)
[2023-05-19] MEDS: Venlafaxine HCl ER 75 MG CAP.ER.24H PO (09:25)
[2023-05-19] MEDS: Folic Acid 1 MG TABLET PO (09:25)
[2023-05-19] MEDS: Celecoxib 200 MG CAPSULE PO ×2 (09:26→20:59)
[2023-05-19] MEDS: Multivitamin TABLET 1 TAB PO (09:26)
[2023-05-19] MEDS: Nicotine 21 MG PATCH.TD24 TRANSDERMA (09:27)
[2023-05-19] MEDS: Fluticasone/Vilanterol 200/25 BLST.W.DEV 1 PUFF INHALE (09:27)
[2023-05-19] MEDS: traMADoL HCL 50 MG TABLET PO ×2 (15:42→20:59)
[2023-05-19 20:30] VITALS: BP 132/81; PULSE 93; TEMP 36.9; O2SAT 96
[2023-05-19] MEDS: QUEtiapine Fumarate 400 MG TABLET PO (20:58)
[2023-05-19] MEDS: Atorvastatin Calcium 40 MG TABLET PO (20:58)
[2023-05-19] MEDS: risperiDONE 1 MG TABLET PO (20:58)
[2023-05-19] MEDS: Topiramate 25 MG TABLET 50 MG PO (20:59)
[2023-05-19] MEDS: Zolpidem Tartrate 5 MG TABLET PO (20:59)
[2023-05-19] MEDS: Mirtazapine 15 MG TABLET PO (20:59)
--- NOTE | 2023-05-20 00:21 | PC.NURSE ---
0000 CIWA-patient woken up for scale. reported ''please let me sleep'' ''I don't sleep well and will be up later, you know me'' smiled. allowed for brief assessment then closed eyes.
[2023-05-20] MEDS: traZODone HCL 50 MG TABLET PO (00:43)
[2023-05-20] MEDS: hydrOXYzine HCL 50 MG TABLET PO ×2 (00:43→11:06)
[2023-05-20] MEDS: Folic Acid 1 MG TABLET PO (08:16)
[2023-05-20] MEDS: Multivitamin TABLET 1 TAB PO (08:16)
[2023-05-20] MEDS: Tamsulosin HCL 0.4 MG CAPSULE 0.8 MG PO (08:16)
[2023-05-20] MEDS: Omeprazole 20 MG CAPSULE.DR PO (08:16)
[2023-05-20] MEDS: Celecoxib 200 MG CAPSULE PO ×2 (08:16→21:08)
[2023-05-20] MEDS: QUEtiapine Fumarate 100 MG TABLET PO ×2 (08:17→18:40)
[2023-05-20] MEDS: VerapamiL HCL SR 120 MG TABLET.ER PO (08:17)
[2023-05-20] MEDS: clonazePAM 0.5 MG TABLET PO ×2 (08:17→21:09)
[2023-05-20] MEDS: Thiamine HCL 100 MG TABLET 50 MG PO (08:17)
[2023-05-20] MEDS: Venlafaxine HCl ER 75 MG CAP.ER.24H PO (08:17)
[2023-05-20] MEDS: Nicotine 21 MG PATCH.TD24 TRANSDERMA (08:18)
[2023-05-20 08:20] VITALS: BP 131/77; PULSE 84; RESP 18; TEMP 36.3; O2SAT 95
[2023-05-20] MEDS: Fluticasone/Vilanterol 200/25 BLST.W.DEV 1 PUFF INHALE (09:02)
[2023-05-20] MEDS: Baclofen 10 MG TABLET PO ×3 (09:06→21:08)
--- NOTE | 2023-05-20 15:16 | HO.PSYCHPN ---
Subjective Subjective Date of Service: 05/20/23 Reason For Visit: crisis Subjective Notes: Conditional Voluntary Healthcare Proxy: No Guardianship: No Medical Problems Affecting Mental Status: No Interim History: Seen with community health director. Focused on voices that he states are no better than on admission and are telling him to harm himself. States they kept him awake. Reports decreased appetite and depressed mood. Medication Compliance: Yes Side effects from medications: No Attending Groups: No Review of Systems Acute medical concerns: Yes back pain Medical Review of Systems: unchanged Mental Status Exam Mental Status Exam Patient Appearance: Disheveled Patient Orientation: Person, Place, Time and Situation Level of Consciousness: Alert Patient Behavior: Appropriate Mood Description: Depressed and Anxious Affect Description: Depressed Patient Cognition Impaired: No Ability to Follow Directions: Good Speech Pattern: Clear Memory Description: Intact Hallucinations: Auditory Delusions: Not Present Thought Process: Linear Thought Content: positive for Suicidal Ideation Depressive Symptoms: Increased Anxiety, Insomnia, Significant Weight Loss and Back Pain Diagnostics Vital Signs (24Hr): Vital Signs - 24 hr 05/19/23 20:30 05/20/23 08:20 Temperature 98.4 F 97.4 F Pulse Rate 93 84 Respiratory Rate 18 Blood Pressure 132/81 131/77 Pulse Oximetry 96 95 Oxygen Delivery Method Room Air Room Air BMI result Body Mass Index 20.3 Labs 05/16/23 15:02 05/18/23 06:28 Imaging Radiology Impressions: ITS Impressions Head CT 05/17/23 18:48 IMPRESSION: Unremarkable exam. Medications Medications Current Medications Acetaminophen (Acetaminophen 325 Mg Tablet) 650 mg PO Q6H PRN PRN Reason: Headache/Pain Mild Scale (1-3) Last Admin: 05/19/23 03:04 Dose: 650 mg Al Hydroxide/Mg Hydroxide (Magnesium Hydrox/Alum Hydrox 30 Ml Oral.Susp) 30 ml PO Q6H PRN PRN Reason: Heartburn/Nausea Albuterol Sulfate (Albuterol Sulfate 90 Mcg 8 Gm Inhaler) 2 puff INHALE Q4H PRN PRN Reason: Wheezing Atorvastatin Calcium (Atorvastatin Calcium 40 Mg Tablet) 40 mg PO BEDTIME [facility] Last Admin: 05/19/23 20:58 Dose: 40 mg Baclofen (Baclofen 10 Mg Tablet) 10 mg PO TID [facility] Last Admin: 05/20/23 14:04 Dose: 10 mg Celecoxib (Celecoxib 200 Mg Capsule) 200 mg PO BID [facility] Last Admin: 05/20/23 08:16 Dose: 200 mg Clonazepam (Clonazepam 0.5 Mg Tablet) 0.5 mg PO BID [facility] Last Admin: 05/20/23 08:17 Dose: 0.5 mg Fluticasone/Vilanterol (Fluticasone/Vilanterol 200/25 Blst.W.Dev) 1 puff INHALE RDAILY [facility] Last Admin: 05/20/23 09:02 Dose: 1 puff Folic Acid (Folic Acid 1 Mg Tablet) 1 mg PO DAILY [facility] Last Admin: 05/20/23 08:16 Dose: 1 mg Hydroxyzine HCl (Hydroxyzine Hcl 50 Mg Tablet) 50 mg PO Q6H PRN PRN Reason: itch Last Admin: 05/20/23 11:06 Dose: 50 mg Lorazepam (Lorazepam 1 Mg Tablet) 1 mg PO Q4H PRN PRN Reason: CIWA score 6-10 Last Admin: 05/18/23 17:41 Dose: 1 mg Lorazepam (Lorazepam 1 Mg Tablet) 2 mg PO Q4H PRN PRN Reason: CIWA score 11 above Last Admin: 05/19/23 06:32 Dose: 2 mg Magnesium Hydroxide (Milk Of Magnesia 30 Ml Oral.Susp) 30 ml PO DAILY PRN PRN Reason: Constipation Mirtazapine (Mirtazapine 15 Mg Tablet) 15 mg PO BEDTIME [facility] Last Admin: 05/19/23 20:59 Dose: 15 mg Multivitamins/Vitamin C (Multivitamin Tablet) 1 tab PO DAILY [facility] Last Admin: 05/20/23 08:16 Dose: 1 tab Nicotine (Nicotine 21 Mg Patch.Td24) 21 mg TRANSDERMA DAILY [facility] Last Admin: 05/20/23 08:18 Dose: 21 mg Nicotine Polacrilex (Nicotine Polacrilex 2 Mg Gum) 4 mg BUCCAL Q2H PRN PRN Reason: Nicotine Cravings Omeprazole (Omeprazole 20 Mg Capsule.Dr) 20 mg PO DAILY@0630 [facility] Last Admin: 05/20/23 08:16 Dose: 20 mg Quetiapine Fumarate (Quetiapine Fumarate 100 Mg Tablet) 100 mg PO BID@0900,1800 [facility] Last Admin: 05/20/23 08:17 Dose: 100 mg Quetiapine Fumarate (Quetiapine Fumarate 400 Mg Tablet) 400 mg PO BEDTIME [facility] Last Admin: 05/19/23 20:58 Dose: 400 mg Risperidone (Risperidone 1 Mg Tablet) 1 mg PO BEDTIME [facility] Last Admin: 05/19/23 20:58 Dose: 1 mg Tamsulosin HCl (Tamsulosin Hcl 0.4 Mg Capsule) 0.8 mg PO DAILY [facility] Last Admin: 05/20/23 08:16 Dose: 0.8 mg Thiamine HCl (Thiamine Hcl 100 Mg Tablet) 50 mg PO DAILY [facility] Last Admin: 05/20/23 08:17 Dose: 50 mg Tiotropium [place] (Tiotropium [place] 2.5 Mcg Inhaler) 2 puff INHALE DAILY [facility] Last Admin: 05/20/23 09:02 Dose: 2 puff Topiramate (Topiramate 25 Mg Tablet) 50 mg PO BEDTIME [facility] Last Admin: 05/19/23 20:59 Dose: 50 mg Tramadol HCl (Tramadol Hcl 50 Mg Tablet) 50 mg PO BID PRN PRN Reason: Pain, Moderate(Pain Scale 4-6) Stop: 05/21/23 21:00 Last Admin: 05/19/23 20:59 Dose: 50 mg Trazodone HCl (Trazodone Hcl 50 Mg Tablet) 50 mg PO BEDTIME PRN PRN Reason: insomnia Last Admin: 05/20/23 00:43 Dose: 50 mg Venlafaxine HCl (Venlafaxine Hcl Er 75 Mg Cap.Er.24h) 75 mg PO DAILY [facility] Last Admin: 05/20/23 08:17 Dose: 75 mg Verapamil HCl (Verapamil Hcl Sr 120 Mg Tablet.Er) 120 mg PO DAILY [facility]; Protocol Last Admin: 05/20/23 08:17 Dose: 120 mg Zolpidem Tartrate (Zolpidem Tartrate 5 Mg Tablet) 5 mg PO BEDTIME [facility] Last Admin: 05/19/23 20:59 Dose: 5 mg Allergies Allergies Allergy/AdvReac Type Severity Reaction Status Date / Time ibuprofen Allergy Intermediate Stomach Verified 04/14/23 10:54 Upset penicillin V Allergy Intermediate rash Verified 04/14/23 10:54 Assessment & Plan Assessment & Plan (1) Bipolar 2 disorder, major depressive episode: Status: Acute Code(s): F31.81 - Bipolar II disorder (2) ETOH abuse: Status: Acute Code(s): F10.10 - Alcohol abuse, uncomplicated (3) Cocaine use disorder: Status: Acute Code(s): F14.10 - Cocaine abuse, uncomplicated (4) Cannabis use disorder, moderate, dependence: Status: Acute Code(s): F12.20 - Cannabis dependence, uncomplicated Plan Patient is a 58 year old male with hx of Bipolar d/o, polysubstance use, with hx of multiple inpatient psychiatric hospitalizations, who self [place] [facility] secondary to being assessed in the community by [facility] d/t increased depression, suicidal ideation and auditory hallucinations. Plan: CV 15 minute safety checks monitor for withdrawal symptoms Continue home medications 05/19: community health director present. Patient reports feelings of depression and anxiety. He reports ongoing auditory hallucinations at this time; states voices are telling me to kill myself . Pt reports suicidal ideation with no plan. C/O back pain; hx of taking tramadol with positive effect. Start: tramadol 50mg PO BID PRN pain for 2 days. Risperidal 1mg PO bedtime. 05/20: no changes Reason for continued inpatient stay Substantial Risk for: harm to self Time Spent With Patient Time: Total time managing care of this patient today ____ minutes.
[2023-05-20 21:06] VITALS: BP 117/73; PULSE 82; TEMP 36.7; O2SAT 97
[2023-05-20] MEDS: Zolpidem Tartrate 5 MG TABLET PO (21:08)
[2023-05-20] MEDS: Atorvastatin Calcium 40 MG TABLET PO (21:08)
[2023-05-20] MEDS: Mirtazapine 15 MG TABLET PO (21:08)
[2023-05-20] MEDS: QUEtiapine Fumarate 400 MG TABLET PO (21:08)
[2023-05-20] MEDS: traMADoL HCL 50 MG TABLET PO (21:09)
[2023-05-20] MEDS: risperiDONE 1 MG TABLET PO (21:09)
[2023-05-20] MEDS: Topiramate 25 MG TABLET 50 MG PO (21:09)
[2023-05-20] MEDS: Milk of Magnesia 30 ML ORAL.SUSP PO (21:17)
[2023-05-21] MEDS: hydrOXYzine HCL 50 MG TABLET PO ×2 (01:55→12:19)
[2023-05-21] MEDS: traZODone HCL 50 MG TABLET PO (01:55)
[2023-05-21] MEDS: Omeprazole 20 MG CAPSULE.DR PO (05:56)
[2023-05-21] MEDS: Acetaminophen 325 MG TABLET 650 MG PO ×2 (06:15→21:03)
[2023-05-21] MEDS: Folic Acid 1 MG TABLET PO (08:16)
[2023-05-21] MEDS: clonazePAM 0.5 MG TABLET PO ×2 (08:16→21:04)
[2023-05-21] MEDS: Venlafaxine HCl ER 75 MG CAP.ER.24H PO (08:16)
[2023-05-21] MEDS: QUEtiapine Fumarate 100 MG TABLET PO ×2 (08:16→19:30)
[2023-05-21] MEDS: Thiamine HCL 100 MG TABLET 50 MG PO (08:16)
[2023-05-21] MEDS: Baclofen 10 MG TABLET PO ×3 (08:16→21:04)
[2023-05-21] MEDS: Multivitamin TABLET 1 TAB PO (08:16)
[2023-05-21] MEDS: Tamsulosin HCL 0.4 MG CAPSULE 0.8 MG PO (08:16)
[2023-05-21] MEDS: Celecoxib 200 MG CAPSULE PO ×2 (08:16→21:04)
[2023-05-21] MEDS: Nicotine 21 MG PATCH.TD24 TRANSDERMA (08:18)
[2023-05-21] MEDS: traMADoL HCL 50 MG TABLET PO (08:24)
[2023-05-21] MEDS: Fluticasone/Vilanterol 200/25 BLST.W.DEV 1 PUFF INHALE (08:25)
[2023-05-21] MEDS: VerapamiL HCL SR 120 MG TABLET.ER PO (08:25)
[2023-05-21 08:46] VITALS: BP 122/70; PULSE 84; RESP 18; TEMP 36.3; O2SAT 96
--- NOTE | 2023-05-21 13:52 | P.PNPSI_ITS ---
Subjective Subjective Date of Service: 05/21/23 Reason For Visit: crisis Subjective Notes: Conditional Voluntary Healthcare Proxy: No Guardianship: No Medical Problems Affecting Mental Status: No Interim History: Reports continued depression and anxiety. Wants more meds for his nerves. States the doses aren't strong enough. Reports no BM for 3 days. Has been isolative at times. Continued sleep disturbance and voices. Medication Compliance: Yes Side effects from medications: No Attending Groups: Intermittent Review of Systems Acute medical concerns: No Medical Review of Systems: unchanged Mental Status Exam Mental Status Exam Patient Appearance: Unkempt Patient Orientation: Person, Place, Time and Situation Level of Consciousness: Alert Patient Behavior: Appropriate Mood Description: Depressed and Anxious Affect Description: Depressed Patient Cognition Impaired: No Ability to Follow Directions: Good Speech Pattern: Clear Memory Description: Intact Hallucinations: Auditory Delusions: Not Present Thought Process: Linear Depressive Symptoms: Increased Anxiety, Insomnia and Thoughts of /Suicide Judgement: Fair Diagnostics Vital Signs (24Hr): Vital Signs - 24 hr 05/20/23 21:06 05/21/23 08:46 Temperature 98.0 F 97.3 F Pulse Rate 82 84 Respiratory Rate 18 Blood Pressure 117/73 122/70 Pulse Oximetry 97 96 Oxygen Delivery Method Room Air Room Air BMI result Body Mass Index 20.3 Labs 05/16/23 15:02 05/18/23 06:28 Imaging Radiology Impressions: ITS Impressions Head CT 05/17/23 18:48 IMPRESSION: Unremarkable exam. Medications Medications Current Medications Acetaminophen (Acetaminophen 325 Mg Tablet) 650 mg PO Q6H PRN PRN Reason: Headache/Pain Mild Scale (1-3) Last Admin: 05/21/23 06:15 Dose: 650 mg Al Hydroxide/Mg Hydroxide (Magnesium Hydrox/Alum Hydrox 30 Ml Oral.Susp) 30 ml PO Q6H PRN PRN Reason: Heartburn/Nausea Albuterol Sulfate (Albuterol Sulfate 90 Mcg 8 Gm Inhaler) 2 puff INHALE Q4H PRN PRN Reason: Wheezing Atorvastatin Calcium (Atorvastatin Calcium 40 Mg Tablet) 40 mg PO BEDTIME [facility] Last Admin: 05/20/23 21:08 Dose: 40 mg Baclofen (Baclofen 10 Mg Tablet) 10 mg PO TID [facility] Last Admin: 05/21/23 08:16 Dose: 10 mg Celecoxib (Celecoxib 200 Mg Capsule) 200 mg PO BID [facility] Last Admin: 05/21/23 08:16 Dose: 200 mg Clonazepam (Clonazepam 0.5 Mg Tablet) 0.5 mg PO BID [facility] Last Admin: 05/21/23 08:16 Dose: 0.5 mg Fluticasone/Vilanterol (Fluticasone/Vilanterol 200/25 Blst.W.Dev) 1 puff INHALE RDAILY [facility] Last Admin: 05/21/23 08:25 Dose: 1 puff Folic Acid (Folic Acid 1 Mg Tablet) 1 mg PO DAILY [facility] Last Admin: 05/21/23 08:16 Dose: 1 mg Hydroxyzine HCl (Hydroxyzine Hcl 50 Mg Tablet) 50 mg PO Q6H PRN PRN Reason: itch Last Admin: 05/21/23 12:19 Dose: 50 mg Lorazepam (Lorazepam 1 Mg Tablet) 1 mg PO Q4H PRN PRN Reason: CIWA score 6-10 Last Admin: 05/18/23 17:41 Dose: 1 mg Lorazepam (Lorazepam 1 Mg Tablet) 2 mg PO Q4H PRN PRN Reason: CIWA score 11 above Last Admin: 05/19/23 06:32 Dose: 2 mg Magnesium Hydroxide (Milk Of Magnesia 30 Ml Oral.Susp) 30 ml PO DAILY PRN PRN Reason: Constipation Last Admin: 05/20/23 21:17 Dose: 30 ml Mirtazapine (Mirtazapine 15 Mg Tablet) 15 mg PO BEDTIME [facility] Last Admin: 05/20/23 21:08 Dose: 15 mg Multivitamins/Vitamin C (Multivitamin Tablet) 1 tab PO DAILY [facility] Last Admin: 05/21/23 08:16 Dose: 1 tab Nicotine (Nicotine 21 Mg Patch.Td24) 21 mg TRANSDERMA DAILY [facility] Last Admin: 05/21/23 08:18 Dose: 21 mg Nicotine Polacrilex (Nicotine Polacrilex 2 Mg Gum) 4 mg BUCCAL Q2H PRN PRN Reason: Nicotine Cravings Omeprazole (Omeprazole 20 Mg Capsule.Dr) 20 mg PO DAILY@0630 [facility] Last Admin: 05/21/23 05:56 Dose: 20 mg Quetiapine Fumarate (Quetiapine Fumarate 100 Mg Tablet) 100 mg PO BID@0900,1800 [facility] Last Admin: 05/21/23 08:16 Dose: 100 mg Quetiapine Fumarate (Quetiapine Fumarate 400 Mg Tablet) 400 mg PO BEDTIME [facility] Last Admin: 05/20/23 21:08 Dose: 400 mg Risperidone (Risperidone 1 Mg Tablet) 1 mg PO BEDTIME [facility] Last Admin: 05/20/23 21:09 Dose: 1 mg Tamsulosin HCl (Tamsulosin Hcl 0.4 Mg Capsule) 0.8 mg PO DAILY [facility] Last Admin: 05/21/23 08:16 Dose: 0.8 mg Thiamine HCl (Thiamine Hcl 100 Mg Tablet) 50 mg PO DAILY [facility] Last Admin: 05/21/23 08:16 Dose: 50 mg Tiotropium [place] (Tiotropium [place] 2.5 Mcg Inhaler) 2 puff INHALE DAILY [facility] Last Admin: 05/21/23 08:25 Dose: 2 puff Topiramate (Topiramate 25 Mg Tablet) 50 mg PO BEDTIME [facility] Last Admin: 05/20/23 21:09 Dose: 50 mg Tramadol HCl (Tramadol Hcl 50 Mg Tablet) 50 mg PO BID PRN PRN Reason: Pain, Moderate(Pain Scale 4-6) Stop: 05/21/23 21:00 Last Admin: 05/21/23 08:24 Dose: 50 mg Trazodone HCl (Trazodone Hcl 50 Mg Tablet) 50 mg PO BEDTIME PRN PRN Reason: insomnia Last Admin: 05/21/23 01:55 EDT Dose: 50 mg Venlafaxine HCl (Venlafaxine Hcl Er 75 Mg Cap.Er.24h) 75 mg PO DAILY [facility] Last Admin: 05/21/23 08:16 Dose: 75 mg Verapamil HCl (Verapamil Hcl Sr 120 Mg Tablet.Er) 120 mg PO DAILY [facility]; Protocol Last Admin: 05/21/23 08:25 Dose: 120 mg Zolpidem Tartrate (Zolpidem Tartrate 5 Mg Tablet) 5 mg PO BEDTIME [facility] Last Admin: 05/20/23 21:08 Dose: 5 mg Allergies Allergies Allergy/AdvReac Type Severity Reaction Status Date / Time ibuprofen Allergy Intermediate Stomach Verified 04/14/23 10:54 Upset penicillin V Allergy Intermediate rash Verified 04/14/23 10:54 Assessment & Plan Assessment & Plan (1) Bipolar 2 disorder, major depressive episode: Status: Acute Code(s): F31.81 - Bipolar II disorder (2) ETOH abuse: Status: Acute Code(s): F10.10 - Alcohol abuse, uncomplicated (3) Cocaine use disorder: Status: Acute Code(s): F14.10 - Cocaine abuse, uncomplicated (4) Cannabis use disorder, moderate, dependence: Status: Acute Code(s): F12.20 - Cannabis dependence, uncomplicated Plan Patient is a 58 year old male with hx of Bipolar d/o, polysubstance use, with hx of multiple inpatient psychiatric hospitalizations, who [place] [facility] [place] to being assessed in the community by [facility] d/t increased depression, suicidal ideation and auditory hallucinations. Plan: CV 15 minute safety checks monitor for withdrawal symptoms Continue home medications 05/19: cook pie present. Patient reports feelings of depression and anxiety. He reports ongoing auditory hallucinations at this time; states voices are telling me to kill myself . Pt reports suicidal ideation with no plan. C/O back pain; hx of taking tramadol with positive effect. Start: tramadol 50mg PO BID PRN pain for 2 days. Risperidal 1mg PO bedtime. 05/20: no changes 05/21 Increase risperdal to 1 mg bid Reason for continued inpatient stay Substantial Risk for: harm to self Time Spent With Patient Time: Total time managing care of this patient today ____ minutes.
[2023-05-21 20:15] VITALS: BP 102/67; PULSE 97; RESP 16; TEMP 36.6; O2SAT 96
[2023-05-21] MEDS: risperiDONE 1 MG TABLET PO (21:03)
[2023-05-21] MEDS: Mirtazapine 15 MG TABLET PO (21:04)
[2023-05-21] MEDS: Zolpidem Tartrate 5 MG TABLET PO (21:04)
[2023-05-21] MEDS: QUEtiapine Fumarate 400 MG TABLET PO (21:05)
[2023-05-21] MEDS: Atorvastatin Calcium 40 MG TABLET PO (21:05)
[2023-05-21] MEDS: Topiramate 25 MG TABLET 50 MG PO (21:05)
[2023-05-22] MEDS: traZODone HCL 50 MG TABLET PO (01:00)
[2023-05-22] MEDS: hydrOXYzine HCL 50 MG TABLET PO ×2 (01:00→14:06)
[2023-05-22] MEDS: Omeprazole 20 MG CAPSULE.DR PO (07:08)
[2023-05-22 08:28] VITALS: BP 105/71; PULSE 89; RESP 16; TEMP 36.2; O2SAT 97
[2023-05-22] MEDS: Fluticasone/Vilanterol 200/25 BLST.W.DEV 1 PUFF INHALE (09:12)
[2023-05-22] MEDS: Nicotine 21 MG PATCH.TD24 TRANSDERMA (09:12)
[2023-05-22] MEDS: Venlafaxine HCl ER 75 MG CAP.ER.24H PO (09:13)
[2023-05-22] MEDS: Multivitamin TABLET 1 TAB PO (09:13)
[2023-05-22] MEDS: VerapamiL HCL SR 120 MG TABLET.ER PO (09:13)
[2023-05-22] MEDS: Celecoxib 200 MG CAPSULE PO ×2 (09:13→20:58)
[2023-05-22] MEDS: Tamsulosin HCL 0.4 MG CAPSULE 0.8 MG PO (09:13)
[2023-05-22] MEDS: Thiamine HCL 100 MG TABLET 50 MG PO (09:14)
[2023-05-22] MEDS: risperiDONE 1 MG TABLET PO ×3 (09:14→20:58)
[2023-05-22] MEDS: Baclofen 10 MG TABLET PO ×3 (09:14→20:59)
[2023-05-22] MEDS: Folic Acid 1 MG TABLET PO (09:14)
[2023-05-22] MEDS: QUEtiapine Fumarate 100 MG TABLET PO ×2 (09:14→17:19)
--- NOTE | 2023-05-22 09:53 | HO.PSYCHPN ---
Subjective Subjective Date of Service: 05/22/23 Reason For Visit: crisis Subjective Notes: Conditional Voluntary Interim History: Reviewed in team and . ordnance mechanic present. Pt continues to report feeling depressed. Pt stated, I'm thinking a lot about my past. I feel guilty for how I treated my mother and now she's no longer alive . T/W educated patient on benefits of attending outpatient therapy to work through his guilt. He reports auditory hallucinations that are telling me to harm myself . Patient encouraged to refrain from isolating in room; later on was seen socializing with peers. denies HI/VH. Medication Compliance: Yes Side effects from medications: No Attending Groups: No Review of Systems Constitutional: Reports as per HPI Eyes: Reports as per HPI Reports as per HPI Cardiovascular: Reports as per HPI Respiratory: Reports as per HPI Gastrointestinal: Reports as per HPI Genitourinary: Reports as per HPI Musculoskeletal: Reports as per HPI Skin/Breast: Reports as per HPI Reports as per HPI Psychiatric: Reports as per HPI Endocrine: Reports as per HPI Hematologic/Lymphatic: Reports as per HPI Allergic/Immunologic: Reports as per HPI Mental Status Exam Mental Status Exam Narrative: Pt is alert and oriented; behavior is cooperative and calm; dressed in casual attire; mood is described as depressed ; eye contact appropriate; Speech is normal rate, volume and prosody and not pressured; no psychomotor agitation/retardation present; thought process is organized; Thought content is on tx; otherwise pertinent to relevant topics and without any delusional content, paranoid ideations or grandiosity; denies HI. Reports suicidal ideation with no plan. denies HI/VH. reports auditory hallucinations. Patients insight and judgment are poor. Diagnostics Vital Signs (24Hr): Vital Signs - 24 hr 05/21/23 20:15 05/22/23 08:28 Temperature 97.9 F 97.2 F Pulse Rate 97 89 Respiratory Rate 16 16 Blood Pressure 102/67 105/71 Pulse Oximetry 96 97 Oxygen Delivery Method Room Air Room Air BMI result Body Mass Index 20.3 Labs 05/16/23 15:02 05/18/23 06:28 Imaging Radiology Impressions: ITS Impressions Head CT 05/17/23 18:48 IMPRESSION: Unremarkable exam. Medications Medications Current Medications Acetaminophen (Acetaminophen 325 Mg Tablet) 650 mg PO Q6H PRN PRN Reason: Headache/Pain Mild Scale (1-3) Last Admin: 11/05/23 21:03 Dose: 650 mg Al Hydroxide/Mg Hydroxide (Magnesium Hydrox/Alum Hydrox 30 Ml Oral.Susp) 30 ml PO Q6H PRN PRN Reason: Heartburn/Nausea Albuterol Sulfate (Albuterol Sulfate 90 Mcg 8 Gm Inhaler) 2 puff INHALE Q4H PRN PRN Reason: Wheezing Atorvastatin Calcium (Atorvastatin Calcium 40 Mg Tablet) 40 mg PO BEDTIME [facility] Last Admin: 05/21/23 21:05 Dose: 40 mg Baclofen (Baclofen 10 Mg Tablet) 10 mg PO TID [facility] Last Admin: 05/22/23 09:14 Dose: 10 mg Celecoxib (Celecoxib 200 Mg Capsule) 200 mg PO BID [facility] Last Admin: 05/22/23 09:13 Dose: 200 mg Fluticasone/Vilanterol (Fluticasone/Vilanterol 200/25 Blst.W.Dev) 1 puff INHALE RDAILY [facility] Last Admin: 05/22/23 09:12 Dose: 1 puff Folic Acid (Folic Acid 1 Mg Tablet) 1 mg PO DAILY [facility] Last Admin: 05/22/23 09:14 Dose: 1 mg Hydroxyzine HCl (Hydroxyzine Hcl 50 Mg Tablet) 50 mg PO Q6H PRN PRN Reason: itch Last Admin: 05/22/23 01:00 Dose: 50 mg Lorazepam (Lorazepam 1 Mg Tablet) 1 mg PO Q4H PRN PRN Reason: CIWA score 6-10 Last Admin: 05/18/23 17:41 Dose: 1 mg Lorazepam (Lorazepam 1 Mg Tablet) 2 mg PO Q4H PRN PRN Reason: CIWA score 11 above Last Admin: 05/19/23 06:32 Dose: 2 mg Magnesium Hydroxide (Milk Of Magnesia 30 Ml Oral.Susp) 30 ml PO DAILY PRN PRN Reason: Constipation Last Admin: 05/20/23 21:17 Dose: 30 ml Mirtazapine (Mirtazapine 15 Mg Tablet) 15 mg PO BEDTIME [facility] Last Admin: 05/21/23 21:04 Dose: 15 mg Multivitamins/Vitamin C (Multivitamin Tablet) 1 tab PO DAILY [facility] Last Admin: 05/22/23 09:13 Dose: 1 tab Nicotine (Nicotine 21 Mg Patch.Td24) 21 mg TRANSDERMA DAILY [facility] Last Admin: 05/22/23 09:12 Dose: 21 mg Nicotine Polacrilex (Nicotine Polacrilex 2 Mg Gum) 4 mg BUCCAL Q2H PRN PRN Reason: Nicotine Cravings Omeprazole (Omeprazole 20 Mg Capsule.Dr) 20 mg PO DAILY@0630 [facility] Last Admin: 05/22/23 07:08 Dose: 20 mg Quetiapine Fumarate (Quetiapine Fumarate 100 Mg Tablet) 100 mg PO BID@0900,1800 [facility] Last Admin: 05/22/23 09:14 Dose: 100 mg Quetiapine Fumarate (Quetiapine Fumarate 400 Mg Tablet) 400 mg PO BEDTIME [facility] Last Admin: 05/21/23 21:05 Dose: 400 mg Risperidone (Risperidone 1 Mg Tablet) 1 mg PO BID [facility] Last Admin: 05/22/23 09:14 Dose: 1 mg Tamsulosin HCl (Tamsulosin Hcl 0.4 Mg Capsule) 0.8 mg PO DAILY [facility] Last Admin: 05/22/23 09:13 Dose: 0.8 mg Thiamine HCl (Thiamine Hcl 100 Mg Tablet) 50 mg PO DAILY [facility] Last Admin: 05/22/23 09:14 Dose: 50 mg Tiotropium [place] (Tiotropium [place] 2.5 Mcg Inhaler) 2 puff INHALE DAILY [facility] Last Admin: 05/22/23 09:11 Dose: 2 puff Topiramate (Topiramate 25 Mg Tablet) 50 mg PO BEDTIME [facility] Last Admin: 05/21/23 21:05 Dose: 50 mg Trazodone HCl (Trazodone Hcl 50 Mg Tablet) 50 mg PO BEDTIME PRN PRN Reason: insomnia Last Admin: 05/22/23 01:00 Dose: 50 mg Venlafaxine HCl (Venlafaxine Hcl Er 75 Mg Cap.Er.24h) 75 mg PO DAILY [facility] Last Admin: 05/22/23 09:13 Dose: 75 mg Verapamil HCl (Verapamil Hcl Sr 120 Mg Tablet.Er) 120 mg PO DAILY [facility]; Protocol Last Admin: 05/22/23 09:13 Dose: 120 mg Zolpidem Tartrate (Zolpidem Tartrate 5 Mg Tablet) 5 mg PO BEDTIME [facility] Last Admin: 05/21/23 21:04 Dose: 5 mg Allergies Allergies Allergy/AdvReac Type Severity Reaction Status Date / Time ibuprofen Allergy Intermediate Stomach Verified 04/14/23 10:54 Upset penicillin V Allergy Intermediate rash Verified 04/14/23 10:54 Assessment & Plan Assessment & Plan (1) Bipolar 2 disorder, major depressive episode: Status: Acute Code(s): F31.81 - Bipolar II disorder (2) ETOH abuse: Status: Acute Code(s): F10.10 - Alcohol abuse, uncomplicated (3) Cocaine use disorder: Status: Acute Code(s): F14.10 - Cocaine abuse, uncomplicated (4) Cannabis use disorder, moderate, dependence: Status: Acute Code(s): F12.20 - Cannabis dependence, uncomplicated Plan Patient is a 58 year old male with hx of Bipolar d/o, polysubstance use, with hx of multiple inpatient psychiatric hospitalizations, who self presented to [facility] [place] [facility] secondary to being assessed in the community by [facility] d/t increased depression, suicidal ideation and auditory hallucinations. Plan: CV 15 minute safety checks monitor for withdrawal symptoms Continue home medications 05/19: ordnance mechanic present. Patient reports feelings of depression and anxiety. He reports ongoing auditory hallucinations at this time; states voices are telling me to kill myself . Pt reports suicidal ideation with no plan. C/O back pain; hx of taking tramadol with positive effect. Start: tramadol 50mg PO BID PRN pain for 2 days. Risperidal 1mg PO bedtime. 05/20: no changes 05/21 Increase risperdal to 1 mg bid 05/22: ordnance mechanic present. Pt continues to report feeling depressed. Pt stated, I'm thinking a lot about my past. I feel guilty for how I treated my mother and now she's no longer alive . T/W educated patient on benefits of attending outpatient therapy to work through his guilt. He reports auditory hallucinations that are telling me to harm myself . Patient encouraged to refrain from isolating in room; later on was seen socializing with peers. denies HI/VH. Increase risperidal to 1mg PO TID. Patient educated on: diagnosis, medication risk/benefits and therapeutic strategies Informed Consent: understands Reason for continued inpatient stay Substantial Risk for: med/psych decompensation Time Spent With Patient Time: Total time managing care of this patient today _30___ minutes.
[2023-05-22] MEDS: Milk of Magnesia 30 ML ORAL.SUSP PO (10:12)
[2023-05-22] MEDS: clonazePAM 0.5 MG TABLET PO ×2 (10:22→20:59)
[2023-05-22 20:00] VITALS: BP 118/71; PULSE 88; RESP 17; TEMP 36.2; O2SAT 98
[2023-05-22] MEDS: Topiramate 25 MG TABLET 50 MG PO (20:58)
[2023-05-22] MEDS: QUEtiapine Fumarate 400 MG TABLET PO (20:58)
[2023-05-22] MEDS: Atorvastatin Calcium 40 MG TABLET PO (20:58)
[2023-05-22] MEDS: Acetaminophen 325 MG TABLET 650 MG PO (20:58)
[2023-05-22] MEDS: Mirtazapine 15 MG TABLET PO (20:59)
[2023-05-22] MEDS: Zolpidem Tartrate 5 MG TABLET PO (22:14)
[2023-05-23] MEDS: hydrOXYzine HCL 50 MG TABLET PO ×2 (03:37→13:50)
[2023-05-23] MEDS: traZODone HCL 50 MG TABLET PO (03:37)
[2023-05-23 06:00] VITALS: BP 92/61; PULSE 90; TEMP 36.6; O2SAT 96
[2023-05-23] MEDS: Omeprazole 20 MG CAPSULE.DR PO (06:13)
[2023-05-23] MEDS: Celecoxib 200 MG CAPSULE PO (08:38)
[2023-05-23] MEDS: Tamsulosin HCL 0.4 MG CAPSULE 0.8 MG PO (08:38)
[2023-05-23] MEDS: clonazePAM 0.5 MG TABLET PO (08:39)
[2023-05-23] MEDS: Venlafaxine HCl ER 75 MG CAP.ER.24H PO (08:39)
[2023-05-23] MEDS: risperiDONE 1 MG TABLET PO ×2 (08:39→14:13)
[2023-05-23] MEDS: Baclofen 10 MG TABLET PO ×2 (08:39→14:13)
[2023-05-23] MEDS: QUEtiapine Fumarate 100 MG TABLET PO (08:39)
[2023-05-23] MEDS: Nicotine 21 MG PATCH.TD24 TRANSDERMA (08:40)
[2023-05-23] MEDS: Fluticasone/Vilanterol 200/25 BLST.W.DEV 1 PUFF INHALE (08:43)
[2023-05-23] MEDS: Milk of Magnesia 30 ML ORAL.SUSP PO (08:59)
--- NOTE | 2023-05-23 09:26 | HO.PSYCHPN ---
Subjective Subjective Reason For Visit: crisis Diagnostics Vital Signs (24Hr): Vital Signs - 24 hr 05/22/23 20:00 05/23/23 06:00 Temperature 97.2 F 97.9 F Pulse Rate 88 90 Respiratory Rate 17 Blood Pressure 118/71 92/61 Pulse Oximetry 98 96 Oxygen Delivery Method Room Air Room Air BMI result Body Mass Index 20.3 Labs 05/16/23 15:02 05/18/23 06:28 Imaging Radiology Impressions: ITS Impressions Head CT 05/17/23 18:48 IMPRESSION: Unremarkable exam. Medications Medications Current Medications Acetaminophen (Acetaminophen 325 Mg Tablet) 650 mg PO Q6H PRN PRN Reason: Headache/Pain Mild Scale (1-3) Last Admin: 05/22/23 20:58 Dose: 650 mg Al Hydroxide/Mg Hydroxide (Magnesium Hydrox/Alum Hydrox 30 Ml Oral.Susp) 30 ml PO Q6H PRN PRN Reason: Heartburn/Nausea Albuterol Sulfate (Albuterol Sulfate 90 Mcg 8 Gm Inhaler) 2 puff INHALE Q4H PRN PRN Reason: Wheezing Atorvastatin Calcium (Atorvastatin Calcium 40 Mg Tablet) 40 mg PO BEDTIME [facility] Last Admin: 05/22/23 20:58 Dose: 40 mg Baclofen (Baclofen 10 Mg Tablet) 10 mg PO TID [facility] Last Admin: 05/23/23 08:39 Dose: 10 mg Celecoxib (Celecoxib 200 Mg Capsule) 200 mg PO BID [facility] Last Admin: 05/23/23 08:38 Dose: 200 mg Clonazepam (Clonazepam 0.5 Mg Tablet) 0.5 mg PO BID [facility] Last Admin: 05/23/23 08:39 Dose: 0.5 mg Fluticasone/Vilanterol (Fluticasone/Vilanterol 200/25 Blst.W.Dev) 1 puff INHALE RDAILY [facility] Last Admin: 05/23/23 08:43 Dose: 1 puff Hydroxyzine HCl (Hydroxyzine Hcl 50 Mg Tablet) 50 mg PO Q6H PRN PRN Reason: itch Last Admin: 05/23/23 03:37 Dose: 50 mg Magnesium Hydroxide (Milk Of Magnesia 30 Ml Oral.Susp) 30 ml PO DAILY PRN PRN Reason: Constipation Last Admin: 05/23/23 08:59 Dose: 30 ml Mirtazapine (Mirtazapine 15 Mg Tablet) 15 mg PO BEDTIME [facility] Last Admin: 05/22/23 20:59 Dose: 15 mg Nicotine (Nicotine 21 Mg Patch.Td24) 21 mg TRANSDERMA DAILY [facility] Last Admin: 05/23/23 08:40 Dose: 21 mg Nicotine Polacrilex (Nicotine Polacrilex 2 Mg Gum) 4 mg BUCCAL Q2H PRN PRN Reason: Nicotine Cravings Omeprazole (Omeprazole 20 Mg Capsule.Dr) 20 mg PO DAILY@0630 [facility] Last Admin: 05/23/23 06:13 Dose: 20 mg Quetiapine Fumarate (Quetiapine Fumarate 100 Mg Tablet) 100 mg PO BID@0900,1800 [facility] Last Admin: 05/23/23 08:39 Dose: 100 mg Quetiapine Fumarate (Quetiapine Fumarate 400 Mg Tablet) 400 mg PO BEDTIME [facility] Last Admin: 05/22/23 20:58 Dose: 400 mg Risperidone (Risperidone 1 Mg Tablet) 1 mg PO TID [facility] Last Admin: 05/23/23 08:39 Dose: 1 mg Tamsulosin HCl (Tamsulosin Hcl 0.4 Mg Capsule) 0.8 mg PO DAILY [facility] Last Admin: 05/23/23 08:38 Dose: 0.8 mg Tiotropium [place] (Tiotropium [place] 2.5 Mcg Inhaler) 2 puff INHALE DAILY [facility] Last Admin: 05/23/23 08:42 Dose: 2 puff Topiramate (Topiramate 25 Mg Tablet) 50 mg PO BEDTIME [facility] Last Admin: 05/22/23 20:58 Dose: 50 mg Trazodone HCl (Trazodone Hcl 50 Mg Tablet) 50 mg PO BEDTIME PRN PRN Reason: insomnia Last Admin: 05/23/23 03:37 Dose: 50 mg Venlafaxine HCl (Venlafaxine Hcl Er 75 Mg Cap.Er.24h) 75 mg PO DAILY [facility] Last Admin: 05/23/23 08:39 Dose: 75 mg Verapamil HCl (Verapamil Hcl Sr 120 Mg Tablet.Er) 120 mg PO DAILY [facility]; Protocol Last Admin: 05/23/23 08:46 Dose: Not Given Zolpidem Tartrate (Zolpidem Tartrate 5 Mg Tablet) 5 mg PO BEDTIME [facility] Last Admin: 05/22/23 22:14 Dose: 5 mg Allergies Allergies Allergy/AdvReac Type Severity Reaction Status Date / Time ibuprofen Allergy Intermediate Stomach Verified 04/14/23 10:54 Upset penicillin V Allergy Intermediate rash Verified 04/14/23 10:54 Assessment & Plan Assessment & Plan (1) Bipolar 2 disorder, major depressive episode: Status: Acute Code(s): F31.81 - Bipolar II disorder (2) ETOH abuse: Status: Acute Code(s): F10.10 - Alcohol abuse, uncomplicated (3) Cocaine use disorder: Status: Acute Code(s): F14.10 - Cocaine abuse, uncomplicated (4) Cannabis use disorder, moderate, dependence: Status: Acute Code(s): F12.20 - Cannabis dependence, uncomplicated Plan Patient is a 58 year old male with hx of Bipolar d/o, polysubstance use, with hx of multiple inpatient psychiatric hospitalizations, who self presented to [facility] secondary to being assessed in the community by [facility] d/t increased depression, suicidal ideation and auditory hallucinations. Plan: CV 15 minute safety checks monitor for withdrawal symptoms Continue home medications 05/19: die cutter operator present. Patient reports feelings of depression and anxiety. He reports ongoing auditory hallucinations at this time; states voices are telling me to kill myself . Pt reports suicidal ideation with no plan. C/O back pain; hx of taking tramadol with positive effect. Start: tramadol 50mg PO BID PRN pain for 2 days. Risperidal 1mg PO bedtime. 05/20: no changes 05/21 Increase risperdal to 1 mg bid 05/22: die cutter operator present. Pt continues to report feeling depressed. Pt stated, I'm thinking a lot about my past. I feel guilty for how I treated my mother and now she's no longer alive . T/W educated patient on benefits of attending outpatient therapy to work through his guilt. He reports auditory hallucinations that are telling me to harm myself . Patient encouraged to refrain from isolating in room; later on was seen socializing with peers. denies HI/VH. Increase risperidal to 1mg PO TID. Time Spent With Patient Time: Total time managing care of this patient today ____ minutes.
--- NOTE | 2023-05-23 13:38 | P.DS_ITS ---
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 Attending physician on discharge: Ivan Butt Discharging clinician: Lily Johnson DS: Diagnosis Discharge Diagnosis (1) Bipolar 2 disorder, major depressive episode: Status: Acute (2) ETOH abuse: Status: Acute (3) Cocaine use disorder: Status: Acute (4) Cannabis use disorder, moderate, dependence: Status: Acute DS: Medications Discharge Medications Home Medications: Home Medications Medication Instructions Recorded Confirmed pantoprazole 40 mg tablet,delayed 40 mg PO QAM 01/16/23 05/16/23 release quetiapine 200 mg tablet 100 mg PO BID 01/16/23 05/16/23 quetiapine 400 mg tablet 400 mg PO BEDTIME 01/16/23 05/16/23 trazodone 50 mg tablet 50 mg PO BEDTIME PRN insomnia 04/01/23 05/16/23 albuterol sulfate 90 mcg/actuation 2 puff inhalation Q4-6H PRN 05/16/23 05/16/23 aerosol inhaler (Ventolin HFA) Wheezing budesonide-formoterol HFA 160 2 puff inhalation BID 05/16/23 05/16/23 mcg-4.5 mcg/actuation aerosol inhaler (Symbicort) hydroxyzine HCl 50 mg tablet 50 mg PO Q6H PRN itch 05/16/23 05/16/23 tiotropium bromide 2.5 2 puff inhalation DAILY 05/16/23 05/16/23 mcg/actuation mist for inhalation (Spiriva Respimat) Previous Rx's Medication Instructions Recorded atorvastatin 40 mg tablet 40 mg PO BEDTIME #30 tabs 10/04/22 mirtazapine 15 mg tablet 15 mg PO BEDTIME #30 tabs 10/04/22 venlafaxine 75 mg capsule,extended 75 mg PO DAILY #30 caps 10/04/22 release 24 hr verapamil 120 mg tablet,extended 120 mg PO DAILY #30 tabs 10/04/22 release baclofen 10 mg tablet 10 mg PO TID 7 days #21 tabs 02/24/23 clonazepam 0.5 mg tablet 0.5 mg PO BID 7 days #14 tabs 02/24/23 tamsulosin 0.4 mg capsule 0.8 mg (2 x 0.4 mg) PO DAILY 7 02/24/23 days #14 caps topiramate 25 mg tablet 50 mg (2 x 25 mg) PO BEDTIME 7 02/24/23 days #14 tabs zolpidem 5 mg tablet 5 mg PO BEDTIME 7 days #7 tabs 02/24/23 Mental Status Exam Mental Status Exam Narrative: Pt is alert and oriented; behavior is cooperative, friendly and calm; dressed in casual attire; mood is described as good ; eye contact appropriate; Speech is normal rate, volume and prosody and not pressured; no psychomotor agitation/retardation present; thought process is organized and goal directed; Thought content is on tx; otherwise pertinent to relevant topics and without any delusional content, paranoid ideations or grandiosity; denies SI/HI. There is no evidence of perceptual disturbance. Patients insight and judgment are fair. Data Data Completed and Pending Completed studies during hospitalization [Text1]: 05/16/23 05/16/23 05/16/23 15:02 15:31 19:02 WBC 6.3 RBC 4.17 L Hgb 12.7 L Hct 37.5 L MCV 89.9 MCH 30.5 MCHC 33.9 RDW 14.4 Plt Count 318 MPV 8.9 L Immature Gran % (Auto) 0.2 Neut % (Auto) 57.9 Lymph % (Auto) 30.3 [place] % (Auto) 7.3 Eos % (Auto) 3.2 Baso % (Auto) 1.1 Lymph # (Auto) 1.9 [place] # (Auto) 0.5 Eos # (Auto) 0.2 Baso # (Auto) 0.1 Abs Immat Gran (auto) 0.01 Absolute Neuts (auto) 3.7 Absolute Nucleated RBC 0.000 Nucleated RBC % (auto) 0.0 Sodium 141 Potassium 3.6 Chloride 106 Carbon Dioxide 25 Anion Gap 14 BUN 14 Creatinine 1.06 Estim Creat Clear Calc 74.1 Estimated GFR > 60 Random Glucose 122 H Fasting Glucose Calcium 9.1 D Total Bilirubin 0.4 Direct Bilirubin 0.1 AST 19 ALT 18 Alkaline Phosphatase 93 Total Protein 6.3 L Albumin 3.8 Triglycerides Cholesterol LDL Cholesterol, Calc HDL Cholesterol Urine Color Dark Yellow Urine Appearance Clear Urine pH 6.0 Ur Specific [place] 1.020 Urine Protein Trace Urine Glucose (UA) Negative Urine Ketones Trace Urine Blood Small (1+) H Urine Nitrite Negative Ur Leukocyte Esterase Small (1+) H Urine RBC 11-20 H Urine WBC 11-20 H Ur Squamous Epith Cells 3-5 Urine Bacteria None Seen Hyaline Casts 3-5 Urine Opiates Screen Not Detected Urine Fentanyl Screen Not Detected Ur Barbiturates Screen Not Detected Ur Phencyclidine Scrn Not Detected Ur Amphetamines Screen Not Detected U Benzodiazepines Scrn POSITIVE H Urine Cocaine Screen POSITIVE H U Marijuana (THC) Screen POSITIVE H Ethyl Alcohol < 10 COVID-19 ([facility]) Negative COVID-19 Clin Com See Note 05/18/23 06:28 WBC RBC Hgb Hct MCV MCH MCHC RDW Plt Count MPV Immature Gran % (Auto) Neut % (Auto) Lymph % (Auto) [place] % (Auto) Eos % (Auto) Baso % (Auto) Lymph # (Auto) [place] # (Auto) Eos # (Auto) Baso # (Auto) Abs Immat Gran (auto) Absolute Neuts (auto) Absolute Nucleated RBC Nucleated RBC % (auto) Sodium 140 Potassium 3.6 Chloride 108 Carbon Dioxide 24 Anion Gap 12 BUN 8 L Creatinine 0.88 Estim Creat Clear Calc 66.0 Estimated GFR > 60 Random Glucose Fasting Glucose 89 Calcium 9.0 Total Bilirubin 0.2 Direct Bilirubin AST 15 ALT 14 Alkaline Phosphatase 80 Total Protein 5.8 L Albumin 3.5 Triglycerides 89 Cholesterol 137 LDL Cholesterol, Calc 76 HDL Cholesterol 44 Urine Color Urine Appearance Urine pH Ur Specific [place] Urine Protein Urine Glucose (UA) Urine Ketones Urine Blood Urine Nitrite Ur Leukocyte Esterase Urine RBC Urine WBC Ur Squamous Epith Cells Urine Bacteria Hyaline Casts Urine Opiates Screen Urine Fentanyl Screen Ur Barbiturates Screen Ur Phencyclidine Scrn Ur Amphetamines Screen U Benzodiazepines Scrn Urine Cocaine Screen U Marijuana (THC) Screen Ethyl Alcohol COVID-19 ([facility]) COVID-19 Clin Com 05/16/23 Unknown Urine clean catch - Urine vidal top Urine Culture - Final Imaging Diagnostic Imaging Impressions Head CT 05/17/23 18:48 IMPRESSION: Unremarkable exam. DS: Summary Hospital Course Hospital Course: Patient is a 58 year old male with hx of Bipolar d/o, polysubstance use, with hx of multiple inpatient psychiatric hospitalizations, who self presented to [facility] ER secondary to being assessed in the community by [facility] d/t increased depression, suicidal ideation and auditory hallucinations. Per crisis report, pt did not disclose suicide plan to [facility]; he did report that his symptoms are continuing to escalate and he feels he is unable to manage his symptoms independently. Pt reported he was 10 days sober and relapsed recently on cocaine and alcohol; has difficulty sleeping, attending to ADL's and poor appetite which has led to weight loss. During admission assessment, spanish interpreter/translator present; pt presents calm, cooperative. He reports feeling depressed and anxious today. Pt stated, my depression has a lot to do with my loneliness. I want to kill myself because of the problems I have in my life and in my mind. I've been crying a lot. I relapsed because of problems with my son; I now feel guilty for relapsing after being sober . Pt reports suicidal ideation with no plan; reports auditory hallucinations of voices telling me to kill myself . denies HI/VH. denies any withdrawal symptoms at this time; will continue to monitor. He reports being medication compliant when at home and having a visiting RN. During hospital stay, home medications were continued. spanish interpreter/translator present. Patient reports feelings of depression and anxiety. He reports ongoing auditory hallucinations at this time; states voices are telling me to kill myself . Pt reports suicidal ideation with no plan. C/O back pain; hx of taking tramadol with positive effect. Start: tramadol 50mg PO BID PRN pain for 2 days. Risperidal 1mg PO bedtime. Increased risperdal to 1 mg bid Pt continues to report feeling depressed. Pt stated, I'm thinking a lot about my past. I feel guilty for how I treated my mother and now she's no longer alive . T/W educated patient on benefits of attending outpatient therapy to work through his guilt. He reports auditory hallucinations that are telling me to harm myself . Patient encouraged to refrain from isolating in room; later on was seen socializing with peers. denies HI/VH. Increase risperidal to 1mg PO TID. Patient reports feeling better today. Pt stated, I started feeling better yesterday after we spoke. I don't have any thoughts of self harm and haven't for the past few days. I also don't have voices. My goal is to go to recovery groups at [facility] and see a therapist . Pt denies SI/HI/VH/AH. Pt plans on going to respite after inpatient hospitalization and returning home. Time spent discussing smoking cessation with patient: 3 to 10 minutes Status at Discharge Cognitive/behavioral status at discharge: Patient was interviewed prior to discharge and found to be fully oriented and without any SI or HI. Patient has insight and demonstrates good judgment in terms of wanting to pursue treatment. Patient is not in imminent risk of harm to self or others and has a safety plan that includes presenting to the closest ER or calling 911 if feeling unsafe. Patient has been observed closely by nursing and unit staff throughout admission; patient has not engaged in any behaviors that suggest dangerousness to self or others and has demonstrated appropriate behaviors and impulse control. Functional status at discharge: independent ambulation Overall status at discharge: patient is back to baseline Time Spent with Patient Time attestation: Total time managing care of this patient today _30___ minutes. Time spent: Less than 30 minutes Discharge Plan Discharge Anticipated Discharge Date/Time: 05/23/23 15:00 Patient Disposition: Xfer to Respite Facility Discharge Diagnosis: Bipolar d/o, Cocaine use, ETOH use d/o Referrals: Physician,Unknown J [Primary Care Provider] - 1 Week Discharge Medications: New quetiapine 100 mg Tablet 100 mg PO BID@0900,1800 30 Days Qty: 30 0RF topiramate 25 mg Tablet 50 mg PO BEDTIME 30 Days Qty: 60 0RF omeprazole 20 mg Capsule,Delayed Release(Dr/Ec) 20 mg PO DAILY@0630 30 Days Qty: 30 0RF risperidone 1 mg Tablet 1 mg PO TID 30 Days Qty: 90 0RF celecoxib 200 mg Capsule 200 mg PO BID 14 Days Qty: 28 1RF clonazepam 0.5 mg Tablet 0.5 mg PO BID 7 Days Qty: 14 1RF Continued verapamil 120 mg Tablet Extended Release 120 mg PO DAILY 30 Days Qty: 30 0RF Protocol: Hold for SBP/HR < HOLD for SBP < : 90 HOLD for HR < : 60 atorvastatin 40 mg Tablet 40 mg PO BEDTIME 30 Days Qty: 30 0RF venlafaxine 75 mg Capsule,Extended Release 24hr 75 mg PO DAILY 30 Days Qty: 30 0RF trazodone 50 mg tablet 50 mg PO BEDTIME PRN (Reason: insomnia) 30 Days Qty: 30 0RF tamsulosin 0.4 mg Capsule 0.8 mg PO DAILY 7 Days Qty: 14 1RF baclofen 10 mg Tablet 10 mg PO TID 7 Days Qty: 21 1RF zolpidem 5 mg Tablet 5 mg PO BEDTIME 14 Days Qty: 14 1RF mirtazapine 15 mg Tablet 15 mg PO BEDTIME 30 Days Qty: 30 0RF albuterol sulfate [Ventolin HFA] 90 mcg/actuation HFA aerosol inhaler 2 puff INHALATION Q4-6H PRN (Reason: Wheezing) 30 Days Qty: 6.7 0RF quetiapine 400 mg tablet 400 mg PO BEDTIME 30 Days Qty: 30 0RF budesonide-formoterol [Symbicort] 160-4.5 mcg/actuation HFA aerosol inhaler 2 puff INHALATION BID 30 Days Qty: 10.2 0RF Spiriva Respimat 2.5 mcg/actuation mist 2 puff INHALATION DAILY 30 Days Qty: 4 0RF Changed hydroxyzine HCl 50 mg tablet 50 mg PO BID PRN (Reason: itch) 30 Days Qty: 60 0RF Discontinued pantoprazole 40 mg tablet,delayed release (DR/EC) 40 mg PO QAM quetiapine 200 mg tablet 100 mg PO BID topiramate 25 mg Tablet 50 mg PO BEDTIME 7 Days Qty: 14 0RF clonazepam 0.5 mg Tablet 0.5 mg PO BID 7 Days Qty: 14 1RF Discharge Orders: Discharge Order (Routine); Ordered 05/23/23 Ordered By: Lily Johnson Diet: Regular diet Activity on Discharge: As tolerated Stand Alone Forms: Patient Portal Discharge page, Community Support Care Plan Goals: Maintain mood and safe behaviors Take medications as prescribed Continue to pursue sobriety Practice coping skills Continue with outpatient providers and reach out to them as needed Health Concerns: Mood stability and behaviors Sobriety Plan of Treatment: Follow up with your PCP, psychiatric provider and other outpatient providers regarding above concerns Take medications as prescribed Assessment: Patient was interviewed prior to discharge and found to be fully oriented and without any SI or HI. Patient has insight and demonstrates good judgment in terms of wanting to pursue treatment. Patient is not in imminent risk of harm to self or others and has a safety plan that includes presenting to the closest ER or calling 911 if feeling unsafe. Patient has been observed closely by nursing and unit staff throughout admission; patient has not engaged in any behaviors that suggest dangerousness to self or others and has demonstrated appropriate behaviors and impulse control. Discharge Date/Time: 05/23/23 15:24
== END 2023-05-23 15:24 | DRG 753 ==
LOC: HO.ED 05-17 06:56 → HO.PADLT16 05-17 12:23
PROVIDERS: Emergency Medicine; Admitting Provider Registered Nurse; Emergency Provider Emergency Medicine Emergency Medical Services; Responsible Provider Registered Nurse; Visit Provider Psychiatry & Neurology Psychiatry
DX: F31.81 Bipolar II disorder (principal); R45.851 Suicidal ideations; F17.210 Nicotine dependence, cigarettes, uncomplicated; F10.10 Alcohol abuse, uncomplicated; F14.10 Cocaine abuse, uncomplicated; F12.20 Cannabis dependence, uncomplicated; J43.9 Emphysema, unspecified; Z71.6 Tobacco abuse counseling; Z23 Encounter for immunization; Z20.822 Contact with and (suspected) exposure to COVID-19; Z79.899 Other long term (current) drug therapy
CPT/HCPCS: 36415; 70450; 80048; 80053; 80061; 80076; 80307; 81001; 85025; 87086; 87635; 90686; 93005; 99285

== ENCOUNTER → 2023-05-17 12:14 | Outpatient (BNV) | payer OTHER, SELFPAY | PROVIDERS: Admitting Provider Registered Nurse; Emergency Provider Emergency Medicine Emergency Medical Services; Responsible Provider Registered Nurse; Visit Provider Psychiatry & Neurology Psychiatry | DX: F31.81 Bipolar II disorder (principal); F10.10 Alcohol abuse, uncomplicated; F14.10 Cocaine abuse, uncomplicated; F12.20 Cannabis dependence, uncomplicated | CPT/HCPCS: 99231; 99232 ==

== ENCOUNTER → 2023-05-17 12:14 | Outpatient (BNV) | payer OTHER, SELFPAY | PROVIDERS: Admitting Provider Registered Nurse; Emergency Provider Emergency Medicine Emergency Medical Services; Responsible Provider Registered Nurse; Visit Provider Psychiatry & Neurology Psychiatry | DX: F31.81 Bipolar II disorder (principal); F10.10 Alcohol abuse, uncomplicated; F14.10 Cocaine abuse, uncomplicated; F12.20 Cannabis dependence, uncomplicated | CPT/HCPCS: 90792; 99232 ==

== ENCOUNTER 2023-06-19 23:04 | Inpatient (IN) | payer MEDICAID, OTHER, SELFPAY ==
--- NOTE | 2023-06-19 | ECG_ITS ---
Test Reason : SOB Blood Pressure : / mmHG Vent. Rate : 085 BPM Atrial Rate : 085 BPM P-R Int : 156 ms QRS Dur : 106 ms QT Int : 412 ms P-R-T Axes : 079 009 088 degrees QTc Int : 490 ms Normal sinus rhythm Incomplete right bundle branch block Nonspecific T wave abnormality Prolonged QT Abnormal ECG When compared with ECG of 17-MAY-2023 06:26, Nonspecific T wave abnormality, improved in Lateral leads Referred By: Amanda Spivey Electronically Signed By:FREDI LACKEY
--- NOTE | ~2023-06-19 | XR_ITS ---
EXAMINATION: XR CHEST CLINICAL INFORMATION: Pneumonia. COMPARISON: Chest x-ray 06/19/2023 TECHNIQUE: Frontal view of the chest was obtained. FINDINGS: The lungs are well-expanded. There is a patchy left perihilar density likely focal infiltrate or atelectasis. Is new since 06/19/2023. There is new platelike atelectasis left CP angle. Heart size and pulmonary vascularity is normal. No gross bony abnormality seen. XR/XR chest 1V IMPRESSION: 1. New left perihilar patchy opacity likely infiltrate or atelectasis. 2. New platelike atelectasis left CP angle. 3. Recommend a follow-up chest x-ray in 2-4 weeks.
--- NOTE | ~2023-06-19 | XR_ITS ---
EXAMINATION: XR CHEST CLINICAL INFORMATION: Chest pain. COMPARISON: Chest x-ray April 02, 2023 TECHNIQUE: Frontal portable view of the chest was obtained. 11:23 PM FINDINGS: No significant abnormality is noted involving the heart, lungs, mediastinum, bony thorax or soft tissues. Healed fracture of the right clavicle. XR/XR chest 1V IMPRESSION: Unremarkable examination.
[2023-06-19 23:19] VITALS: BP 105/63; PULSE 93; O2SAT 95
[2023-06-19 23:22] VITALS: BP 127/80; PULSE 93; RESP 20; TEMP 36.6; O2SAT 97; BMI 20.9
[2023-06-19 23:27] VITALS: BP 127/80; PULSE 89; RESP 18; TEMP 36.6; O2SAT 94
[2023-06-19 23:33] VITALS: BP 127/80; PULSE 93; RESP 20; TEMP 36.6; O2SAT 97
--- NOTE | 2023-06-19 23:34 | ED_ITS ---
HPI - Psych General Chief Complaint: Dyspnea Stated Complaint: asthma Time Seen by Provider: 06/19/23 23:16 Source: patient, old records reviewed and store custodian Mode of arrival: EMS Limitations: other (poor historian) History of Present Illness HPI Narrative: 58 yo male with PMH of ETOH abuse, bipolar, COPD, kidney stones - who comes in with multiple complaints at 6pm states he sniffed cocaine and has R sided rib pain and fell on that side. He also notes it hurts in his lower back he denies trauma to that or IVDA. He states he is also SI and doesn't want to live like this and needs to go upstairs. He is all over the place. MD complaint: suicidal ideation, feels depressed and substance abuse Onset (ago): month(s) Duration: changing over time History of same: Yes Relieving factors: none Exacerbating factors: drug use Context: recent drug abuse Associated psychiatric symptoms: depression and suicidal ideation Associated symptoms: other (chest pain and back pain) Related Data Previous Rx's Medication Instructions Recorded albuterol sulfate 90 mcg/actuation 2 puff inhalation Q4-6H PRN 05/23/23 aerosol inhaler (Ventolin HFA) Wheezing 30 days #6.7 grams atorvastatin 40 mg tablet 40 mg PO BEDTIME 30 days #30 tabs 05/23/23 baclofen 10 mg tablet 10 mg PO TID 7 days #21 tabs 05/23/23 budesonide-formoterol HFA 160 2 puff inhalation BID 30 days 05/23/23 mcg-4.5 mcg/actuation aerosol #10.2 grams inhaler (Symbicort) celecoxib 200 mg capsule 200 mg PO BID 14 days #28 caps 05/23/23 clonazepam 0.5 mg tablet 0.5 mg PO BID 7 days #14 tabs 05/23/23 hydroxyzine HCl 50 mg tablet 50 mg PO BID PRN itch 30 days #60 05/23/23 tabs mirtazapine 15 mg tablet 15 mg PO BEDTIME 30 days #30 tabs 05/23/23 omeprazole 20 mg capsule,delayed 20 mg PO DAILY@0630 30 days #30 05/23/23 release caps quetiapine 100 mg tablet 100 mg PO BID@0900,1800 30 days 05/23/23 #30 tabs quetiapine 400 mg tablet 400 mg PO BEDTIME 30 days #30 tabs 05/23/23 risperidone 1 mg tablet 1 mg PO TID 30 days #90 tabs 05/23/23 tamsulosin 0.4 mg capsule 0.8 mg (2 x 0.4 mg) PO DAILY 7 05/23/23 days #14 caps tiotropium bromide 2.5 2 puff inhalation DAILY 30 days #4 05/23/23 mcg/actuation mist for inhalation grams (Spiriva Respimat) topiramate 25 mg tablet 50 mg (2 x 25 mg) PO BEDTIME 30 05/23/23 days #60 tabs trazodone 50 mg tablet 50 mg PO BEDTIME PRN insomnia 30 05/23/23 days #30 tabs venlafaxine 75 mg capsule,extended 75 mg PO DAILY 30 days #30 caps 05/23/23 release 24 hr verapamil 120 mg tablet,extended 120 mg PO DAILY 30 days #30 tabs 05/23/23 release zolpidem 5 mg tablet 5 mg PO BEDTIME 14 days #14 tabs 05/23/23 Allergies Allergy/AdvReac Type Severity Reaction Status Date / Time ibuprofen Allergy Intermediate Stomach Verified 04/14/23 10:54 Upset penicillin V Allergy Intermediate rash Verified 04/14/23 10:54 Review of Systems 2 Review of Systems: Constitutional : No Fever, No Chills ENT/Mouth : No Hoarseness, No sore throat, No Rhinorrhea Eyes: No Redness, No Discharge, No Vision Changes Cardiovascular : pos Chest Pain, positive SOB, no Dyspnea on Exertion, No Edema Respiratory : positive Cough, No Sputum, positive Wheezing, Gastrointestinal : No Nausea, No Vomiting, No Diarrhea, No abdominal Pain Genitourinary : No Dysuria, No Hematuria Musculoskeletal : No joint pain, No Myalgias, pos back pain Skin : No rash Neuro : No Weakness, No Numbness, No Headache Psych : No anxiety, depression Heme/Lymph: No Bruising, No Bleeding Endocrine : No Polyuria, No Polydipsia All other systems reviewed and are negative PMFSH Past Medical History Attestation statement: The following information was validated with the patient. Source: old records reviewed Medical History Suicidal ideation Polysubstance abuse Chronic back pain BPH (benign prostatic hyperplasia) Nicotine dependence Cannabis use disorder, moderate, dependence Cocaine use disorder Pulmonary nodules Emphysema of lung Anxiety Depression Asthma Surgical History Hx of cholecystectomy Social History Social History Household Members: None Housing: Apartment Do you presently have visiting nurse or other home services: Yes Unable to assess alcohol history related to: Unknown Alcohol intake: current Alcohol intake frequency: holidays/special occasions only Alcohol type: beer Patient Tobacco Use Status: Current everyday Tobacco user Tobacco use type: Cigarette Cigarettes Per Day: 4 Smoked in Last 30 Days: Yes e-Cigarette/Vaping Use: Never Used Second Hand Smoke Exposure: Yes Use of substances other than those prescribed or required for medical reasons: No Substance Use Type: Crack/Cocaine Advance Directives: Yes Advance Directives on File: Yes Advance Directives Date on File: 01/18/23 service: No Sexual orientation: Straight/Heterosexual Physical Exam 2 Vital Signs: Vital Signs: Last Vital Signs Temp 97.8 F 06/19/23 23:33 Pulse 87 06/20/23 02:37 Resp 16 06/20/23 02:37 BP 102/65 06/20/23 02:37 Pulse Ox 94 06/20/23 02:37 O2 Del Method Room Air 06/20/23 02:37 O2 Flow Rate 2 06/19/23 23:27 Oxygen Flow Rate 2 06/19/23 23:22 BMI result Body Mass Index 20.9 Appearance: Alert. Oriented X3. No acute distress. Eyes: Pupils equal, round and reactive to light. ENT: Pharynx normal. Neck: Normal inspection. Neck supple. CVS: Normal heart rate and rhythm. Pulses normal. Respiratory: No respiratory distress. Breath sounds dminished bilaterally . Abdomen: Soft and nontender. Skin: Skin warm and dry. Normal skin color. Normal skin turgor. Extremities: No lower extremity edema. No calf ttp Neuro: Oriented X 3. No motor deficit. No sensory deficit. CN2-12 intaact Course Course Course Narrative: 6hr trop negative Reevaluation(s) Reevaluation #1: Physician observation started at 109am Patient placed in physician observation because the patient needed more time for CARE team to assess the need for psych admission. At the time observation was started the patient's vitals were stable, patient is alert and oriented but slightly anxious, Neuro: nonfocal, CV RRR, Lungs clear Reevaluation #2: patient is demanding narcotics as usual he will only be given his suboxone Medications Administered Discontinued Medications Generic Name Dose Route Start Last Admin Trade Name Alvarado PRN Reason Stop Dose Admin Acetaminophen 650 mg 06/19/23 23:39 06/19/23 23:44 Acetaminophen 325 Mg Tablet PO 06/19/23 23:40 650 mg ONCE ONE Administration Albuterol/Ipratropium 3 ml 06/19/23 23:49 06/19/23 23:53 Albuterol/Iprat 2.5/0.5mg 3 Ml Ampul.Neb INHALE 06/19/23 23:50 3 ml ONCE ONE Administration Medical Decision Making Medical Decision Making MDM Narrative: 58 yo male with PMH of ETOH abuse, bipolar, COPD, kidney stones here with c/o SI and also chest pain and asthma as well as back pain he is very hard to follow states it started after snorting cocaine and he no longer wants to live. He has symmetric pulses and pain seems MSK - no IVDA doubt epidural abscess. He is diminished will need neb but no hypoxia or resp distress. CXR for PTX. He is not toxic appearing. Labs, EKG, troponin x 2, once medically cleared will obtain CARE team consult Differential Diagnosis Differential Diagnoses: The differential diagnosis associated with the presentation includes atypical chest pain, coronary spasm, drug abuse, COPD Admission/Observation Consideration of admission/observation: Escalation of care including admission/observation considered Lab Data [facility] Lab Attestation statement: I reviewed the patient's lab results. 06/20/23 00:08 06/20/23 00:08 Labs: Lab Results 06/20/23 06/20/23 Range/Units 00:08 02:35 WBC 5.9 (4.8-10.8) X10*3/uL RBC 4.02 L (4.60-5.80) X10*6/uL Hgb 11.9 L (14.0-18.0) g/dl Hct 35.2 L (42.0-52.0) % MCV 87.6 (80.0-98.0) fL MCH 29.6 (27.0-33.0) pg MCHC 33.8 (31.0-36.0) g/dl RDW 13.9 (11.0-16.0) % Plt Count 317 (160-400) X10*3/uL MPV 8.7 L (9.4-12.4) fL Immature Gran % (Auto) 0.2 (0.0-0.4) % Neut % (Auto) 53.0 (45-73) % Lymph % (Auto) 31.4 (20-40) % [place] % (Auto) 10.3 (2-11) % Eos % (Auto) 4.6 H (0-4) % Baso % (Auto) 0.5 (0-2) % Lymph # (Auto) 1.9 (1.2-4.9) X10*3/uL [place] # (Auto) 0.6 (0.1-1.2) X10*3/uL Eos # (Auto) 0.3 (0.0-0.4) X10*3/uL Baso # (Auto) 0.0 (0.0-0.2) X10*3/uL Abs Immat Gran (auto) 0.01 (0.00-0.03) X10*3/uL Absolute Neuts (auto) 3.1 (2.0-8.3) x10*3/uL Absolute Nucleated RBC 0.000 (0.0-0.012) X10*3/uL Nucleated RBC % (auto) 0.0 (0.0-0.2) /100WBC Sodium 139 (135-145) mmol/L Potassium 3.8 (3.3-5.1) mmol/L Chloride 106 (96-108) mmol/L Carbon Dioxide 25 (22-29) mmol/L Anion Gap 12 (12-20) BUN 14 (9-16) mg/dL Creatinine 0.80 (0.5-1.4) mg/dL Estim Creat Clear Calc 76.6 Estimated GFR > 60 Random Glucose 85 (60-115) mg/dL Calcium 9.3 (8.4-10.2) mg/dL Magnesium 2.1 (1.6-2.6) mg/dL Total Bilirubin 0.3 (0.0-1.0) mg/dL Direct Bilirubin 0.1 (0.0-0.5) mg/dL AST 15 (5-37) U/L ALT 11 (0-40) U/L Alkaline Phosphatase 74 (39-117) U/L Troponin I High Sens < 2.7 (<3.5-35.0) ng/L Total Protein 6.4 L (6.5-8.0) g/dL Albumin 3.8 (3.5-5.0) g/dL Ethyl Alcohol < 10 mg/dL COVID-19 ([facility]) Negative (Negative) COVID-19 Clin Com See Note Independent Interpretation I performed an independent interpretation of an: EKG and Plain X-Ray (normal ) Interpretation: Rate: 85 Rhythm: NSR Goodrich: left Normal P waves. Normal STEFFEN. incomplete RBBB ST T wave : no CADEN, inverted T waves aVL, V1-V2 qTC: slightly prolonged prior studies: no change from priors The study has been interpreted contemporaneously by me. . Radiology Impression Discussion of test interpretation with radiology: I have reviewed the radiologist's reading. Independent Historian Clinical information obtained from an independent historian. History obtained from or confirmed by: EMS External Record Review External record reviewed: Inpatient record Discharge Plan Discharge Clinical Impression: Cocaine use disorder Patient Disposition: Still a Patient Prescriptions: No Action quetiapine 100 mg Tablet 100 mg PO BID@0900,1800 30 Days Qty: 30 0RF topiramate 25 mg Tablet 50 mg PO BEDTIME 30 Days Qty: 60 0RF omeprazole 20 mg Capsule,Delayed Release(Dr/Ec) 20 mg PO DAILY@0630 30 Days Qty: 30 0RF risperidone 1 mg Tablet 1 mg PO TID 30 Days Qty: 90 0RF celecoxib 200 mg Capsule 200 mg PO BID 14 Days Qty: 28 1RF verapamil 120 mg Tablet Extended Release 120 mg PO DAILY 30 Days Qty: 30 0RF Protocol: Hold for SBP/HR < HOLD for SBP < : 90 HOLD for HR < : 60 atorvastatin 40 mg Tablet 40 mg PO BEDTIME 30 Days Qty: 30 0RF venlafaxine 75 mg Capsule,Extended Release 24hr 75 mg PO DAILY 30 Days Qty: 30 0RF trazodone 50 mg tablet 50 mg PO BEDTIME PRN (Reason: insomnia) 30 Days Qty: 30 0RF hydroxyzine HCl 50 mg tablet 50 mg PO BID PRN (Reason: itch) 30 Days Qty: 60 0RF tamsulosin 0.4 mg Capsule 0.8 mg PO DAILY 7 Days Qty: 14 1RF baclofen 10 mg Tablet 10 mg PO TID 7 Days Qty: 21 1RF zolpidem 5 mg Tablet 5 mg PO BEDTIME 14 Days Qty: 14 1RF mirtazapine 15 mg Tablet 15 mg PO BEDTIME 30 Days Qty: 30 0RF albuterol sulfate [Ventolin HFA] 90 mcg/actuation HFA aerosol inhaler 2 puff INHALATION Q4-6H PRN (Reason: Wheezing) 30 Days Qty: 6.7 0RF quetiapine 400 mg tablet 400 mg PO BEDTIME 30 Days Qty: 30 0RF budesonide-formoterol [Symbicort] 160-4.5 mcg/actuation HFA aerosol inhaler 2 puff INHALATION BID 30 Days Qty: 10.2 0RF Spiriva Respimat 2.5 mcg/actuation mist 2 puff INHALATION DAILY 30 Days Qty: 4 0RF clonazepam 0.5 mg Tablet 0.5 mg PO BID 7 Days Qty: 14 1RF
--- NOTE | 2023-06-19 23:34 | PC.NURSE ---
Pt presents to ED with complaints of SOB and pain in his head and back. Pt also informed us that he has multiple kidney stones. Around 1800, pt was laying down and started coughing. Pt fell from his bed when he tried to stand up. No injuries present. Lungs are diminished on the right side. Pt was initially satting low 90's on RA with EMS, he was placed on 2 LPM O2 and it increased to high 90's. Pt is now on room air satting at 96% Pt does smoke cigarettes regularly. Pt made an SI statement after doing some cocaine. EKG and labs ordered. Sitter in place. Security at bedside for changeover.
[2023-06-19] MEDS: Acetaminophen 325 MG TABLET 650 MG PO (23:44)
[2023-06-19] MEDS: Albuterol/Iprat 2.5/0.5MG 3 ML AMPUL.NEB INHALE (23:53)
[2023-06-19 23:54] VITALS: PULSE 85; RESP 16; O2SAT 95
--- NOTE | 2023-06-20 | MHC.EDTECH ---
Belongings in decon per security
[2023-06-20 00:13] LABS: MANUAL DIFF FLAG NO
[2023-06-20 00:14] LABS: Basophils Percent Auto 0.5 % (0-2); Eosinophils Absolute Auto 0.3 X10*3/uL (0.0-0.4); Eosinophils Percent Auto 4.6 % (0-4); Hematocrit 35.2 % (42.0-52.0); Hemoglobin 11.9 g/dl (14.0-18.0); Imm Gran Abs Auto 0.01 X10*3/uL (0.00-0.03); Imm Gran Pct Auto 0.2 % (0.0-0.4); Lymphocytes Absolute Auto 1.9 X10*3/uL (1.2-4.9); Lymphocytes Percent Auto 31.4 % (20-40); Mean Corpuscular HGB Conc 33.8 g/dl (31.0-36.0); Mean Corpuscular Hemoglobin 29.6 pg (27.0-33.0); Mean Corpuscular Volume 87.6 fL (80.0-98.0); Mean Platelet Volume 8.7 fL (9.4-12.4); Monocytes Absolute Auto 0.6 X10*3/uL (0.1-1.2); Monocytes Percent Auto 10.3 % (2-11); Neutrophils Absolute Auto 3.1 x10*3/uL (2.0-8.3); Platelet Count 317 X10*3/uL (160-400); Red Blood Count 4.02 X10*6/uL (4.60-5.80); Red Cell Distribution Width 13.9 % (11.0-16.0); White Blood Count 5.9 X10*3/uL (4.8-10.8)
[2023-06-20 00:41] LABS: Troponin-I High Sensitivity < 2.7 ng/L (<3.5-35.0)
[2023-06-20 00:47] LABS: Alanine Aminotransferase 11 U/L (0-40); Albumin Level 3.8 g/dL (3.5-5.0); Alkaline Phosphatase 74 U/L (39-117); Anion Gap 12 (12-20); Aspartate Amino Transferase 15 U/L (5-37); Bilirubin Direct 0.1 mg/dL (0.0-0.5); Bilirubin Total 0.3 mg/dL (0.0-1.0); Blood Urea Nitrogen 14 mg/dL (9-16); Calcium 9.3 mg/dL (8.4-10.2); Carbon Dioxide 25 mmol/L (22-29); Chloride 106 mmol/L (96-108); Creatinine Clr Calc Pharmacy 76.6; Estimated Glomerular Filt Rate > 60; Ethanol < 10 mg/dL; Glucose Random 85 mg/dL (60-115); Magnesium 2.1 mg/dL (1.6-2.6); Potassium 3.8 mmol/L (3.3-5.1); Sodium 139 mmol/L (135-145); Total Protein 6.4 g/dL (6.5-8.0)
[2023-06-20 02:37] VITALS: BP 102/65; PULSE 87; RESP 16; O2SAT 94
[2023-06-20 03:06] LABS: COVID-19 Test Negative (Negative); IDNOW Serial# 6674DD1D
--- NOTE | 2023-06-20 04:43 | PC.NURSE ---
Pt has been complaining of back pain. I informed Dr Spivey and requested medication. Pt previously received tylenol and is allergic to ibuprofen. I was instructed to give an ice pack. No other interventions advised or ordered. Pt is now beginning to get agitated, stating we aren't doing anything for him and attempting to rip out his IV. Pt stated he takes toradol for pain and has not taken his suboxone in 2 days. Pt refused suboxone as it makes him nauseas and will vomit. Pt requested any pain medication, understands he will not get narcotics.
[2023-06-20] MEDS: Ondansetron ODT 4 MG TAB.RAPDIS TRANSLINGU (05:31)
[2023-06-20] MEDS: Buprenorphine/Naloxone 8/2 mg FILM 1 FILM SUBLINGUAL (05:31)
[2023-06-20] MEDS: LORazepam 1 MG TABLET PO (05:31)
[2023-06-20] MEDS: Lidocaine 4 % Patch ADH..PATCH 1 PATCH TRANSDERMA (05:31)
--- NOTE | 2023-06-20 05:38 | PC.NURSE ---
Pt medicated per SEP. Warm blanket given.
[2023-06-20 05:49] VITALS: BP 106/63; PULSE 80; RESP 17; O2SAT 95
[2023-06-20 06:08] LABS: Amphetamine Screen Urine Not Detected (Not Detect); Barbiturates, Urine Not Detected (Not Detect); Benzodiazepines Screen Urine Not Detected (Not Detect); Cannabinoid Screen Urine POSITIVE (Not Detect); Cocaine Screen Urine POSITIVE (Not Detect); Fentanyl, urine Not Detected (Not Detect); Opiate Screen Urine Not Detected (Not Detect); Phencyclidine Screen Urine Not Detected (Not Detect)
--- NOTE | 2023-06-20 07:15 | PC.NURSE ---
patient resting quietly in bed, respirations equal and unlabored. patient has sitter 1:1 at bedside
--- NOTE | 2023-06-20 19:16 | PHA.MEDREC ---
Pharmacy Consult ? Medication Reconciliation Pharmacy has completed the medication reconciliation. Patient use medboxes from [facility]. Utilized claim history and most recent discharge summary to complete med rec. Mayte ReaD
[2023-06-20 21:25] VITALS: BP 122/79; PULSE 93; TEMP 36.3
[2023-06-20] MEDS: QUEtiapine Fumarate 400 MG TABLET PO (21:49)
[2023-06-20] MEDS: Atorvastatin Calcium 40 MG TABLET PO (21:49)
[2023-06-20] MEDS: Mirtazapine 15 MG TABLET PO (21:50)
[2023-06-20] MEDS: traZODone HCL 50 MG TABLET PO (21:50)
[2023-06-20] MEDS: Zolpidem Tartrate 5 MG TABLET PO (22:38)
[2023-06-20] MEDS: Topiramate 25 MG TABLET 50 MG PO (22:39)
[2023-06-20] MEDS: risperiDONE 1 MG TABLET PO (22:40)
[2023-06-20] MEDS: Albuterol Sulfate 90 MCG 8 GM INHALER 2 PUFF INHALE (23:10)
--- NOTE | 2023-06-21 01:43 | PC.ADMIT ---
A Togolese-speaking, domiciled, male aged 58 years was [facility] CV at 2120 following referral from [facility] ED and CARE team. Pt has a number of admissions here at [facility] and elsewhere. Pt was transported to [facility] ED via ambulance due to difficulty breathing, chest pain, and command AH telling pt to kill himself. Pt had been reported to have used cocaine b/f having difficulty breathing. Pt reported to staff via finance consultant that the voices had become worse two week prior and that they won't leave me alone. Pt reported he can't go on like this ; if it continues he will kill himself. Pt reports is medication compliant. Pt says he has VNA services. Pt reports poor sleep, reduced appetite and low energy. Pt has a previous history of suicide attempts via O/D and attempted hanging. Record states pt has made as many as 10 suicide attempts over his lifetime. Pt reported feeling tired upon arrival to and was unable to fully participate in admission due to fatigue. Pt denied current SI/HI and says can seek out help from staff. Pt reports does not have therapist and is unsure if has psychiatric med provider. Pt says is open to med management and referral to providers. Pt c/o back pain and MARTINES 9/10. Medical issue include: recent exacerbation of COPD, BPH and JERRY. Pt is a high fall risk, reporting more than 2 falls in past 6 months. Utox showed pt positive for cocaine and marijuana. Pt denies withdrawal symptoms. [id number]-[id number] done, admission orders obtained, and treatment plan done but not signed. Pt still needs to do Safety Tool. Pt is resting in room at this time on 5 minute safety checks.
[2023-06-21] MEDS: traZODone HCL 50 MG TABLET PO (02:50)
[2023-06-21] MEDS: Omeprazole 20 MG CAPSULE.DR PO (06:03)
[2023-06-21 08:50] VITALS: BP 117/72; PULSE 60; RESP 18; TEMP 36.6; O2SAT 94
[2023-06-21] MEDS: Tamsulosin HCL 0.4 MG CAPSULE 0.8 MG PO (08:54)
[2023-06-21] MEDS: VerapamiL HCL SR 120 MG TABLET.ER PO (08:54)
[2023-06-21] MEDS: QUEtiapine Fumarate 100 MG TABLET PO ×2 (08:54→18:10)
[2023-06-21] MEDS: risperiDONE 1 MG TABLET PO ×3 (08:54→20:43)
[2023-06-21] MEDS: Fluticasone/Vilanterol 200/25 BLST.W.DEV 1 PUFF INHALE (08:54)
[2023-06-21] MEDS: Venlafaxine HCl ER 75 MG CAP.ER.24H PO (08:54)
[2023-06-21] MEDS: Tiotropium Bromide 2.5 mcg 1 PUFF/2.5 MCG MIST.INHAL 2 PUFF INHALE (08:54)
[2023-06-21] MEDS: Buprenorphine/Naloxone 8/2 mg FILM 1 FILM SUBLINGUAL (09:24)
[2023-06-21] MEDS: Ondansetron ODT 4 MG TAB.RAPDIS TRANSLINGU (09:24)
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
[2023-06-21] MEDS: clonazePAM 0.5 MG TABLET PO ×2 (11:46→20:44)
[2023-06-21 19:30] VITALS: BP 102/74; PULSE 97; TEMP 36.2; O2SAT 92
[2023-06-21] MEDS: Topiramate 25 MG TABLET 50 MG PO (20:42)
[2023-06-21] MEDS: QUEtiapine Fumarate 400 MG TABLET PO (20:43)
[2023-06-21] MEDS: Atorvastatin Calcium 40 MG TABLET PO (20:43)
[2023-06-21] MEDS: Ferrous Sulfate 324 MG TABLET.DR PO (20:43)
[2023-06-21] MEDS: Mirtazapine 15 MG TABLET PO (20:44)
[2023-06-21] MEDS: Zolpidem Tartrate 5 MG TABLET PO (20:44)
[2023-06-21] MEDS: Acetaminophen 325 MG TABLET 650 MG PO (21:06)
[2023-06-22] MEDS: OLANZapine 5 MG TABLET PO (00:55)
[2023-06-22] MEDS: hydrOXYzine HCL 50 MG TABLET PO ×2 (00:55→15:54)
[2023-06-22] MEDS: Omeprazole 20 MG CAPSULE.DR PO (05:42)
[2023-06-22 07:00] VITALS: BMI 20.5
[2023-06-22] MEDS: Fluticasone/Vilanterol 200/25 BLST.W.DEV 1 PUFF INHALE (07:56)
[2023-06-22] MEDS: Tamsulosin HCL 0.4 MG CAPSULE 0.8 MG PO (07:56)
[2023-06-22] MEDS: QUEtiapine Fumarate 100 MG TABLET PO ×2 (07:56→15:54)
[2023-06-22] MEDS: VerapamiL HCL SR 120 MG TABLET.ER PO (07:56)
[2023-06-22] MEDS: Venlafaxine HCl ER 75 MG CAP.ER.24H PO (07:56)
[2023-06-22] MEDS: Tiotropium Bromide 2.5 mcg 1 PUFF/2.5 MCG MIST.INHAL 2 PUFF INHALE (07:56)
[2023-06-22] MEDS: risperiDONE 1 MG TABLET PO ×3 (07:56→20:02)
[2023-06-22] MEDS: clonazePAM 0.5 MG TABLET PO ×2 (07:57→20:02)
[2023-06-22] MEDS: Ondansetron ODT 4 MG TAB.RAPDIS TRANSLINGU (08:04)
[2023-06-22 08:15] VITALS: BP 109/62; PULSE 94; RESP 18; TEMP 36.4; O2SAT 94
[2023-06-22] MEDS: Buprenorphine/Naloxone 8/2 mg FILM 1 FILM SUBLINGUAL (09:11)
--- NOTE | 2023-06-22 10:01 | P.PNPSI_ITS ---
Subjective Subjective Date of Service: 06/22/23 Reason For Visit: psychosis/SI Interim History: met with patient; discussed with team; seen with vat tender sad, thinking about anniversary of his sons (murder?) and his mothers recent . hearing voices of relatives, encouraging him to come to them has been using cocaine and agrees it's keeping him in a cycle of depression; wants to get and stay sober saying that otherwise, he'll sooner than otherwise and wont' get to spend time with kids/grandkids discussed meds; masspat shows no clonazepam script since . He agrees to increase Mirtazpine for now Mental Status Exam Mental Status Exam Narrative: Pt is alert and oriented; behavior is cooperative, friendly and calm; dressed in casual attire; mood is described as depressed ; eye contact appropriate; Speech is normal rate, volume and prosody and not pressured; thought process is organized and goal directed; Thought content is on missing his son, mother; tx; otherwise pertinent to relevant topics and without any delusional content, paranoid ideations or grandiosity; denies HI/VH. Pt reports suicidal ideation with no plan. He reports auditory hallucinations that tell him to kill himself. Patients insight and judgment are poor. Diagnostics Vital Signs (24Hr): Vital Signs - 24 hr 06/21/23 19:30 06/22/23 08:15 Temperature 97.2 F 97.6 F Pulse Rate 97 94 Respiratory Rate 18 Blood Pressure 102/74 109/62 Pulse Oximetry 92 94 Oxygen Delivery Method Room Air Room Air BMI result Body Mass Index 20.9 Labs 06/20/23 00:08 06/20/23 00:08 Imaging Radiology Impressions: ITS Impressions Chest X-Ray 06/19/23 23:35 IMPRESSION: Unremarkable examination. Medications Medications Current Medications Acetaminophen (Acetaminophen 325 Mg Tablet) 650 mg PO Q6H PRN PRN Reason: Headache/Pain Mild Scale (1-3) Last Admin: 06/21/23 21:06 Dose: 650 mg Al Hydroxide/Mg Hydroxide (Magnesium Hydrox/Alum Hydrox 30 Ml Oral.Susp) 30 ml PO Q6H PRN PRN Reason: Heartburn/Nausea Albuterol Sulfate (Albuterol Sulfate 90 Mcg 8 Gm Inhaler) 2 puff INHALE Q4H PRN PRN Reason: Wheezing Last Admin: 06/20/23 23:10 Dose: 2 puff Albuterol/Ipratropium (Albuterol/Iprat 2.5/0.5mg 3 Ml Ampul.Neb) 3 ml INHALE TID PRN PRN Reason: wheezing Atorvastatin Calcium (Atorvastatin Calcium 40 Mg Tablet) 40 mg PO BEDTIME [facility] Last Admin: 06/21/23 20:43 Dose: 40 mg Buprenorphine/Naloxone (Buprenorphine/Naloxone 8/2 Mg Film) 1 film SUBLINGUAL DAILY [facility] Last Admin: 06/22/23 09:11 Dose: 1 film Clonazepam (Clonazepam 0.5 Mg Tablet) 0.5 mg PO BID [facility] Last Admin: 06/22/23 07:57 Dose: 0.5 mg Ferrous Sulfate (Ferrous Sulfate 324 Mg Tablet.) 324 mg PO BEDTIME [facility] Last Admin: 06/21/23 20:43 Dose: 324 mg Fluticasone/Vilanterol (Fluticasone/Vilanterol 200/25 Blst.W.Dev) 1 puff INHALE RDAILY [facility] Last Admin: 06/22/23 07:56 Dose: 1 puff Hydroxyzine HCl (Hydroxyzine Hcl 50 Mg Tablet) 50 mg PO BID PRN PRN Reason: itch Last Admin: 06/22/23 00:55 Dose: 50 mg Magnesium Hydroxide (Milk Of Magnesia 30 Ml Oral.Susp) 30 ml PO DAILY PRN PRN Reason: Constipation Mirtazapine (Mirtazapine 15 Mg Tablet) 15 mg PO BEDTIME [facility] Last Admin: 06/21/23 20:44 Dose: 15 mg Nicotine (Nicotine 21 Mg Patch.Td24) 21 mg TRANSDERMA DAILY PRN PRN Reason: smoking cessation Nicotine Polacrilex (Nicotine Polacrilex 2 Mg Gum) 4 mg BUCCAL Q2H PRN PRN Reason: Nicotine Cravings Olanzapine (Olanzapine 5 Mg Tablet) 5 mg PO TID PRN PRN Reason: agitation Last Admin: 06/22/23 00:55 Dose: 5 mg Omeprazole (Omeprazole 20 Mg Capsule.) 20 mg PO DAILY@0630 [facility] Last Admin: 06/22/23 05:42 Dose: 20 mg Ondansetron HCl (Ondansetron Odt 4 Mg Tab.Rapdis) 4 mg TRANSLINGU Q8H PRN PRN Reason: Nausea Last Admin: 06/22/23 08:04 Dose: 4 mg Quetiapine Fumarate (Quetiapine Fumarate 400 Mg Tablet) 400 mg PO BEDTIME [facility] Last Admin: 06/21/23 20:43 Dose: 400 mg Quetiapine Fumarate (Quetiapine Fumarate 100 Mg Tablet) 100 mg PO BID@0900,1800 [facility] Last Admin: 06/22/23 07:56 Dose: 100 mg Risperidone (Risperidone 1 Mg Tablet) 1 mg PO TID [facility] Last Admin: 06/22/23 07:56 Dose: 1 mg Tamsulosin HCl (Tamsulosin Hcl 0.4 Mg Capsule) 0.8 mg PO DAILY [facility] Last Admin: 06/22/23 07:56 Dose: 0.8 mg Tiotropium [place] (Tiotropium [place] 2.5 Mcg 1 Puff/2.5 Mcg Mist.Inhal) 2 puff INHALE DAILY [facility] Last Admin: 06/22/23 07:56 Dose: 2 puff Topiramate (Topiramate 25 Mg Tablet) 50 mg PO BEDTIME [facility] Last Admin: 06/21/23 20:42 Dose: 50 mg Trazodone HCl (Trazodone Hcl 50 Mg Tablet) 50 mg PO BEDTIME MRX1 PRN PRN Reason: Insomnia Last Admin: 06/21/23 02:50 Dose: 50 mg Venlafaxine HCl (Venlafaxine Hcl Er 75 Mg Cap.Er.24h) 75 mg PO DAILY [facility] Last Admin: 06/22/23 07:56 Dose: 75 mg Verapamil HCl (Verapamil Hcl Sr 120 Mg Tablet.Er) 120 mg PO DAILY [facility]; Protocol Last Admin: 06/22/23 07:56 Dose: 120 mg Zolpidem Tartrate (Zolpidem Tartrate 5 Mg Tablet) 5 mg PO BEDTIME PRN PRN Reason: Insomnia Last Admin: 06/21/23 20:44 Dose: 5 mg Allergies Allergies Allergy/AdvReac Type Severity Reaction Status Date / Time ibuprofen Allergy Intermediate Stomach Verified 06/20/23 12:08 Upset penicillin V Allergy Intermediate rash Verified 06/20/23 12:08 Assessment & Plan Assessment & Plan (1) Bipolar 2 disorder, major depressive episode: Status: Acute Code(s): F31.81 - Bipolar II disorder (2) Cocaine use disorder: Status: Acute Code(s): F14.10 - Cocaine abuse, uncomplicated (3) Cannabis use disorder, moderate, dependence: Status: Acute Code(s): F12.20 - Cannabis dependence, uncomplicated Plan Patient is a 58 year old male with hx of Bipolar d/o, polysubstance use, with hx of multiple inpatient psychiatric hospitalizations, who was seen by crisis d/t suicidal ideation secondary to increased auditory hallucinations that are telling him to harm himself. 06/22 increased mirtazapine to 30mg Plan: CV 15 minute safety checks Continue home medications Possible referral to substance abuse program? Patient educated on: diagnosis, medication risk/benefits and substance abuse Informed Consent: understands Reason for continued inpatient stay Substantial Risk for: rapid decompensation Time Spent With Patient Time: Total time managing care of this patient today ____ minutes.
[2023-06-22 16:29] VITALS: BP 101/62; PULSE 104; TEMP 35.8; O2SAT 95
[2023-06-22 18:07] VITALS: BP 130/78
[2023-06-22] MEDS: Topiramate 25 MG TABLET 50 MG PO (20:00)
[2023-06-22] MEDS: Mirtazapine 30 MG TABLET PO (20:00)
[2023-06-22] MEDS: QUEtiapine Fumarate 400 MG TABLET PO (20:01)
[2023-06-22] MEDS: Atorvastatin Calcium 40 MG TABLET PO (20:01)
[2023-06-22] MEDS: Acetaminophen 325 MG TABLET 650 MG PO (20:01)
[2023-06-22] MEDS: Ferrous Sulfate 324 MG TABLET.DR PO (20:02)
[2023-06-22] MEDS: Zolpidem Tartrate 5 MG TABLET PO (20:24)
[2023-06-23] MEDS: hydrOXYzine HCL 50 MG TABLET PO ×2 (05:06→14:00)
[2023-06-23] MEDS: Omeprazole 20 MG CAPSULE.DR PO (05:06)
[2023-06-23 08:00] VITALS: BP 94/57; PULSE 92; TEMP 37.1; O2SAT 98
[2023-06-23] MEDS: Ondansetron ODT 4 MG TAB.RAPDIS TRANSLINGU (08:58)
[2023-06-23] MEDS: Tamsulosin HCL 0.4 MG CAPSULE 0.8 MG PO (09:11)
[2023-06-23] MEDS: Buprenorphine/Naloxone 8/2 mg FILM 1 FILM SUBLINGUAL (09:11)
[2023-06-23] MEDS: QUEtiapine Fumarate 100 MG TABLET PO ×2 (09:11→17:02)
[2023-06-23] MEDS: Venlafaxine HCl ER 75 MG CAP.ER.24H PO (09:11)
[2023-06-23] MEDS: VerapamiL HCL SR 120 MG TABLET.ER PO (09:11)
[2023-06-23] MEDS: clonazePAM 0.5 MG TABLET PO ×2 (09:11→19:04)
[2023-06-23] MEDS: risperiDONE 1 MG TABLET PO (09:11)
[2023-06-23] MEDS: Tiotropium Bromide 2.5 mcg 1 PUFF/2.5 MCG MIST.INHAL 2 PUFF INHALE (09:13)
[2023-06-23] MEDS: Fluticasone/Vilanterol 200/25 BLST.W.DEV 1 PUFF INHALE (09:13)
--- NOTE | 2023-06-23 10:03 | HO.PSYCHPN ---
Subjective Subjective Date of Service: 06/23/23 Reason For Visit: psychosis/SI Interim History: met with patient; discussed with team; seen w/ turkish mateusz Patient reports he remains very depressed and that auditory hallucinations are very bothersome; he says they are worse at night. Still feels suicidal and does not want to talk about if he has a plan or not. Because AH is worse at night, he agrees to increasing Risperdal and putting the bulk of it at bedtime rather than split in it over the day. Discussed behavioral activation with which patient agrees Mental Status Exam Mental Status Exam Narrative: Pt is alert and oriented; behavior is cooperative, friendly and calm; dressed in casual attire; mood is described as depressed ; eye contact appropriate; Speech is normal rate, volume and prosody and not pressured; thought process is organized and goal directed; Thought content is on missing his son, mother; tx; otherwise pertinent to relevant topics and without any delusional content, paranoid ideations or grandiosity; denies HI/VH. Pt reports suicidal ideation with no plan. He reports auditory hallucinations that tell him to kill himself. Patients insight and judgment are poor. Diagnostics Vital Signs (24Hr): Vital Signs - 24 hr 06/22/23 16:29 06/22/23 18:07 Temperature 96.4 F L Pulse Rate 104 H Blood Pressure 101/62 130/78 Pulse Oximetry 95 Oxygen Delivery Method Room Air BMI result Body Mass Index 20.5 Labs 06/20/23 00:08 06/20/23 00:08 Imaging Radiology Impressions: ITS Impressions Chest X-Ray 06/19/23 23:35 IMPRESSION: Unremarkable examination. Medications Medications Current Medications Acetaminophen (Acetaminophen 325 Mg Tablet) 650 mg PO Q6H PRN PRN Reason: Headache/Pain Mild Scale (1-3) Last Admin: 06/22/23 20:01 Dose: 650 mg Al Hydroxide/Mg Hydroxide (Magnesium Hydrox/Alum Hydrox 30 Ml Oral.Susp) 30 ml PO Q6H PRN PRN Reason: Heartburn/Nausea Albuterol Sulfate (Albuterol Sulfate 90 Mcg 8 Gm Inhaler) 2 puff INHALE Q4H PRN PRN Reason: Wheezing Last Admin: 06/20/23 23:10 Dose: 2 puff Albuterol/Ipratropium (Albuterol/Iprat 2.5/0.5mg 3 Ml Ampul.Neb) 3 ml INHALE TID PRN PRN Reason: wheezing Atorvastatin Calcium (Atorvastatin Calcium 40 Mg Tablet) 40 mg PO BEDTIME [facility] Last Admin: 06/22/23 20:01 Dose: 40 mg Buprenorphine/Naloxone (Buprenorphine/Naloxone 8/2 Mg Film) 1 film SUBLINGUAL DAILY [facility] Last Admin: 06/23/23 09:11 Dose: 1 film Clonazepam (Clonazepam 0.5 Mg Tablet) 0.5 mg PO BID [facility] Last Admin: 06/23/23 09:11 Dose: 0.5 mg Ferrous Sulfate (Ferrous Sulfate 324 Mg Tablet.) 324 mg PO BEDTIME [facility] Last Admin: 06/22/23 20:02 Dose: 324 mg Fluticasone/Vilanterol (Fluticasone/Vilanterol 200/25 Blst.W.Dev) 1 puff INHALE RDAILY [facility] Last Admin: 06/23/23 09:13 Dose: 1 puff Hydroxyzine HCl (Hydroxyzine Hcl 50 Mg Tablet) 50 mg PO BID PRN PRN Reason: itch Last Admin: 06/23/23 05:06 Dose: 50 mg Magnesium Hydroxide (Milk Of Magnesia 30 Ml Oral.Susp) 30 ml PO DAILY PRN PRN Reason: Constipation Mirtazapine (Mirtazapine 30 Mg Tablet) 30 mg PO BEDTIME [facility] Last Admin: 06/22/23 20:00 Dose: 30 mg Nicotine (Nicotine 21 Mg Patch.Td24) 21 mg TRANSDERMA DAILY PRN PRN Reason: smoking cessation Nicotine Polacrilex (Nicotine Polacrilex 2 Mg Gum) 4 mg BUCCAL Q2H PRN PRN Reason: Nicotine Cravings Omeprazole (Omeprazole 20 Mg Capsule.) 20 mg PO DAILY@0630 [facility] Last Admin: 06/23/23 05:06 Dose: 20 mg Ondansetron HCl (Ondansetron Odt 4 Mg Tab.Rapdis) 4 mg TRANSLINGU Q8H PRN PRN Reason: Nausea Last Admin: 06/23/23 08:58 Dose: 4 mg Quetiapine Fumarate (Quetiapine Fumarate 400 Mg Tablet) 400 mg PO BEDTIME [facility] Last Admin: 06/22/23 20:01 Dose: 400 mg Quetiapine Fumarate (Quetiapine Fumarate 100 Mg Tablet) 100 mg PO BID@0900,1800 [facility] Last Admin: 06/23/23 09:11 Dose: 100 mg Risperidone (Risperidone 1 Mg Tablet) 1 mg PO TID [facility] Last Admin: 06/23/23 09:11 Dose: 1 mg Tamsulosin HCl (Tamsulosin Hcl 0.4 Mg Capsule) 0.8 mg PO DAILY [facility] Last Admin: 06/23/23 09:11 Dose: 0.8 mg Tiotropium [place] (Tiotropium [place] 2.5 Mcg 1 Puff/2.5 Mcg Mist.Inhal) 2 puff INHALE DAILY [facility] Last Admin: 06/23/23 09:13 Dose: 2 puff Topiramate (Topiramate 25 Mg Tablet) 50 mg PO BEDTIME [facility] Last Admin: 06/22/23 20:00 Dose: 50 mg Trazodone HCl (Trazodone Hcl 50 Mg Tablet) 50 mg PO BEDTIME MRX1 PRN PRN Reason: Insomnia Last Admin: 06/21/23 02:50 Dose: 50 mg Venlafaxine HCl (Venlafaxine Hcl Er 75 Mg Cap.Er.24h) 75 mg PO DAILY [facility] Last Admin: 06/23/23 09:11 Dose: 75 mg Verapamil HCl (Verapamil Hcl Sr 120 Mg Tablet.Er) 120 mg PO DAILY [facility]; Protocol Last Admin: 06/23/23 09:11 Dose: 120 mg Zolpidem Tartrate (Zolpidem Tartrate 5 Mg Tablet) 5 mg PO BEDTIME PRN PRN Reason: Insomnia Last Admin: 06/22/23 20:24 Dose: 5 mg Allergies Allergies Allergy/AdvReac Type Severity Reaction Status Date / Time ibuprofen Allergy Intermediate Stomach Verified 06/20/23 12:08 Upset penicillin V Allergy Intermediate rash Verified 06/20/23 12:08 Assessment & Plan Assessment & Plan (1) Bipolar 2 disorder, major depressive episode: Status: Acute Code(s): F31.81 - Bipolar II disorder (2) Cocaine use disorder: Status: Acute Code(s): F14.10 - Cocaine abuse, uncomplicated (3) Cannabis use disorder, moderate, dependence: Status: Acute Code(s): F12.20 - Cannabis dependence, uncomplicated Plan Patient is a 58 year old male with hx of Bipolar d/o, polysubstance use, with hx of multiple inpatient psychiatric hospitalizations, who was seen by crisis d/t suicidal ideation secondary to increased auditory hallucinations that are telling him to harm himself. 06/22 increased mirtazapine to 30mg 06/23 Patient reports he remains very depressed and that auditory hallucinations are very bothersome; he says they are worse at night. Still feels suicidal and does not want to talk about if he has a plan or not. Because AH is worse at night, he agrees to increasing Risperdal and putting the bulk of it at bedtime rather than split in it over the day. Discussed behavioral activation with which patient agrees Plan: CV 15 minute safety checks increased mirtazapine to 30mg Increasing Risperdal to 3 mg q.h.s. and 1 mg in the morning otherwise Continue home medications Possible referral to substance abuse program? Patient educated on: diagnosis, medication risk/benefits and therapeutic strategies Informed Consent: understands Reason for continued inpatient stay Substantial Risk for: rapid decompensation Time Spent With Patient Time: Total time managing care of this patient today ____ minutes.
[2023-06-23 18:00] VITALS: BP 118/59; PULSE 84; RESP 18; TEMP 36.8; O2SAT 96
[2023-06-23] MEDS: Ferrous Sulfate 324 MG TABLET.DR PO (19:04)
[2023-06-23] MEDS: Acetaminophen 325 MG TABLET 650 MG PO (19:04)
[2023-06-23] MEDS: Mirtazapine 30 MG TABLET PO (19:04)
[2023-06-23] MEDS: risperiDONE 3 MG TABLET PO (19:04)
[2023-06-23] MEDS: Atorvastatin Calcium 40 MG TABLET PO (19:04)
[2023-06-23] MEDS: QUEtiapine Fumarate 400 MG TABLET PO (19:05)
[2023-06-23] MEDS: Topiramate 25 MG TABLET 50 MG PO (19:08)
[2023-06-23] MEDS: Zolpidem Tartrate 5 MG TABLET PO (21:30)
[2023-06-24] MEDS: Omeprazole 20 MG CAPSULE.DR PO (05:40)
[2023-06-24] MEDS: Venlafaxine HCl ER 75 MG CAP.ER.24H PO (08:15)
[2023-06-24] MEDS: Tamsulosin HCL 0.4 MG CAPSULE 0.8 MG PO (08:15)
[2023-06-24] MEDS: QUEtiapine Fumarate 100 MG TABLET PO ×2 (08:15→17:14)
[2023-06-24] MEDS: clonazePAM 0.5 MG TABLET PO ×2 (08:16→20:14)
[2023-06-24] MEDS: risperiDONE 1 MG TABLET PO (08:16)
[2023-06-24] MEDS: VerapamiL HCL SR 120 MG TABLET.ER PO (08:16)
[2023-06-24 08:20] VITALS: BP 125/75; PULSE 92; RESP 18; TEMP 37; O2SAT 92
[2023-06-24] MEDS: Ondansetron ODT 4 MG TAB.RAPDIS TRANSLINGU (08:31)
[2023-06-24] MEDS: Tiotropium Bromide 2.5 mcg 1 PUFF/2.5 MCG MIST.INHAL 2 PUFF INHALE (08:31)
[2023-06-24] MEDS: Fluticasone/Vilanterol 200/25 BLST.W.DEV 1 PUFF INHALE (08:31)
[2023-06-24] MEDS: Buprenorphine/Naloxone 8/2 mg FILM 1 FILM SUBLINGUAL (09:20)
--- NOTE | 2023-06-24 11:43 | HO.PSYCHPN ---
Subjective Subjective Date of Service: 06/24/23 Reason For Visit: psychosis/SI Subjective Notes: Conditional Voluntary Interim History: Patient was seen and discussed in rounds. Records and plans were reviewed. He is guarded. Decrease in auditory hallucinations reported. Continues to be depressed. He does have weight loss. No complaints. No changes were made today. No complaints or side effects He was seen with the help of an management consultant. Review of Systems Review of Systems Weight loss Yes all other systems are reviewed and are negative Mental Status Exam Mental Status Exam Narrative: In today's visit he is alert, pleasant and interactive. Normal speech. Little eye contact. Affect is appropriate and varied. No signs of psychosis. No indications of SI. No dangerous behaviors. Cognitively appears to be intact. Judgment is intact Diagnostics Vital Signs (24Hr): Vital Signs - 24 hr 06/23/23 18:00 06/24/23 08:20 Temperature 98.2 F 98.6 F Pulse Rate 84 92 Respiratory Rate 18 18 Blood Pressure 118/59 L 125/75 Pulse Oximetry 96 92 Oxygen Delivery Method Room Air Room Air BMI result Body Mass Index 20.5 Labs 06/20/23 00:08 06/20/23 00:08 Imaging Radiology Impressions: ITS Impressions Chest X-Ray 06/19/23 23:35 IMPRESSION: Unremarkable examination. Medications Medications Current Medications Acetaminophen (Acetaminophen 325 Mg Tablet) 650 mg PO Q6H PRN PRN Reason: Headache/Pain Mild Scale (1-3) Last Admin: 06/23/23 19:04 Dose: 650 mg Al Hydroxide/Mg Hydroxide (Magnesium Hydrox/Alum Hydrox 30 Ml Oral.Susp) 30 ml PO Q6H PRN PRN Reason: Heartburn/Nausea Albuterol Sulfate (Albuterol Sulfate 90 Mcg 8 Gm Inhaler) 2 puff INHALE Q4H PRN PRN Reason: Wheezing Last Admin: 06/20/23 23:10 Dose: 2 puff Albuterol/Ipratropium (Albuterol/Iprat 2.5/0.5mg 3 Ml Ampul.Neb) 3 ml INHALE TID PRN PRN Reason: wheezing Atorvastatin Calcium (Atorvastatin Calcium 40 Mg Tablet) 40 mg PO BEDTIME [facility] Last Admin: 06/23/23 19:04 Dose: 40 mg Buprenorphine/Naloxone (Buprenorphine/Naloxone 8/2 Mg Film) 1 film SUBLINGUAL DAILY [facility] Last Admin: 06/24/23 09:20 Dose: 1 film Clonazepam (Clonazepam 0.5 Mg Tablet) 0.5 mg PO BID [facility] Last Admin: 06/24/23 08:16 Dose: 0.5 mg Ferrous Sulfate (Ferrous Sulfate 324 Mg Tablet.) 324 mg PO BEDTIME [facility] Last Admin: 06/23/23 19:04 Dose: 324 mg Fluticasone/Vilanterol (Fluticasone/Vilanterol 200/25 Blst.W.Dev) 1 puff INHALE RDAILY [facility] Last Admin: 06/24/23 08:31 Dose: 1 puff Hydroxyzine HCl (Hydroxyzine Hcl 50 Mg Tablet) 50 mg PO BID PRN PRN Reason: itch Last Admin: 06/23/23 14:00 Dose: 50 mg Magnesium Hydroxide (Milk Of Magnesia 30 Ml Oral.Susp) 30 ml PO DAILY PRN PRN Reason: Constipation Mirtazapine (Mirtazapine 30 Mg Tablet) 30 mg PO BEDTIME [facility] Last Admin: 06/23/23 19:04 Dose: 30 mg Nicotine (Nicotine 21 Mg Patch.Td24) 21 mg TRANSDERMA DAILY PRN PRN Reason: smoking cessation Nicotine Polacrilex (Nicotine Polacrilex 2 Mg Gum) 4 mg BUCCAL Q2H PRN PRN Reason: Nicotine Cravings Omeprazole (Omeprazole 20 Mg Capsule.Dr) 20 mg PO DAILY@0630 [facility] Last Admin: 06/24/23 05:40 Dose: 20 mg Ondansetron HCl (Ondansetron Odt 4 Mg Tab.Rapdis) 4 mg TRANSLINGU Q8H PRN PRN Reason: Nausea Last Admin: 06/24/23 08:31 Dose: 4 mg Quetiapine Fumarate (Quetiapine Fumarate 400 Mg Tablet) 400 mg PO BEDTIME [facility] Last Admin: 06/23/23 19:05 Dose: 400 mg Quetiapine Fumarate (Quetiapine Fumarate 100 Mg Tablet) 100 mg PO BID@0900,1800 [facility] Last Admin: 06/24/23 08:15 Dose: 100 mg Quetiapine Fumarate (Quetiapine Fumarate 50 Mg Tablet) 50 mg PO QID PRN PRN Reason: anxiety/restlessness Risperidone (Risperidone 3 Mg Tablet) 3 mg PO BEDTIME [facility] Last Admin: 06/23/23 19:04 Dose: 3 mg Risperidone (Risperidone 1 Mg Tablet) 1 mg PO DAILY [facility] Last Admin: 06/24/23 08:16 Dose: 1 mg Tamsulosin HCl (Tamsulosin Hcl 0.4 Mg Capsule) 0.8 mg PO DAILY [facility] Last Admin: 06/24/23 08:15 Dose: 0.8 mg Tiotropium [place] (Tiotropium [place] 2.5 Mcg 1 Puff/2.5 Mcg Mist.Inhal) 2 puff INHALE DAILY [facility] Last Admin: 06/24/23 08:31 Dose: 2 puff Topiramate (Topiramate 25 Mg Tablet) 50 mg PO BEDTIME [facility] Last Admin: 06/23/23 19:08 Dose: 50 mg Trazodone HCl (Trazodone Hcl 50 Mg Tablet) 50 mg PO BEDTIME MRX1 PRN PRN Reason: Insomnia Last Admin: 06/21/23 02:50 Dose: 50 mg Venlafaxine HCl (Venlafaxine Hcl Er 75 Mg Cap.Er.24h) 75 mg PO DAILY [facility] Last Admin: 06/24/23 08:15 Dose: 75 mg Verapamil HCl (Verapamil Hcl Sr 120 Mg Tablet.Er) 120 mg PO DAILY [facility]; Protocol Last Admin: 06/24/23 08:16 Dose: 120 mg Zolpidem Tartrate (Zolpidem Tartrate 5 Mg Tablet) 5 mg PO BEDTIME PRN PRN Reason: Insomnia Last Admin: 06/22/23 20:24 Dose: 5 mg Allergies Allergies Allergy/AdvReac Type Severity Reaction Status Date / Time ibuprofen Allergy Intermediate Stomach Verified 06/20/23 12:08 Upset penicillin V Allergy Intermediate rash Verified 06/20/23 12:08 Assessment & Plan Assessment & Plan (1) Bipolar 2 disorder, major depressive episode: Status: Acute Code(s): F31.81 - Bipolar II disorder (2) Cocaine use disorder: Status: Acute Code(s): F14.10 - Cocaine abuse, uncomplicated (3) Cannabis use disorder, moderate, dependence: Status: Acute Code(s): F12.20 - Cannabis dependence, uncomplicated Plan Patient is a 58 year old male with hx of Bipolar d/o, polysubstance use, with hx of multiple inpatient psychiatric hospitalizations, who was seen by crisis d/t suicidal ideation secondary to increased auditory hallucinations that are telling him to harm himself. 06/22 increased mirtazapine to 30mg 06/23 Patient reports he remains very depressed and that auditory hallucinations are very bothersome; he says they are worse at night. Still feels suicidal and does not want to talk about if he has a plan or not. Because AH is worse at night, he agrees to increasing Risperdal and putting the bulk of it at bedtime rather than split in it over the day. Discussed behavioral activation with which patient agrees Plan: CV 15 minute safety checks increased mirtazapine to 30mg Increasing Risperdal to 3 mg q.h.s. and 1 mg in the morning otherwise Continue home medications Possible referral to substance abuse program? 06/24: Continue current plans and regimen Reason for continued inpatient stay Substantial Risk for: med/psych decompensation Time Spent With Patient Time: Total time managing care of this patient today ____ minutes.
[2023-06-24] MEDS: QUEtiapine Fumarate 50 MG TABLET PO (14:13)
[2023-06-24] MEDS: Cyclobenzaprine HCl 10 MG TABLET PO (17:13)
[2023-06-24 20:05] VITALS: BP 111/63; PULSE 84; TEMP 36.6
[2023-06-24] MEDS: Topiramate 25 MG TABLET 50 MG PO (20:13)
[2023-06-24] MEDS: Ferrous Sulfate 324 MG TABLET.DR PO (20:13)
[2023-06-24] MEDS: risperiDONE 3 MG TABLET PO (20:13)
[2023-06-24] MEDS: QUEtiapine Fumarate 400 MG TABLET PO (20:13)
[2023-06-24] MEDS: Mirtazapine 30 MG TABLET PO (20:14)
[2023-06-24] MEDS: Atorvastatin Calcium 40 MG TABLET PO (20:14)
[2023-06-24] MEDS: Zolpidem Tartrate 5 MG TABLET PO (20:16)
[2023-06-25] MEDS: Omeprazole 20 MG CAPSULE.DR PO (05:46)
[2023-06-25] MEDS: clonazePAM 0.5 MG TABLET PO ×2 (08:05→21:21)
[2023-06-25] MEDS: Venlafaxine HCl ER 75 MG CAP.ER.24H PO (08:05)
[2023-06-25] MEDS: VerapamiL HCL SR 120 MG TABLET.ER PO (08:05)
[2023-06-25] MEDS: Tamsulosin HCL 0.4 MG CAPSULE 0.8 MG PO (08:05)
[2023-06-25] MEDS: risperiDONE 1 MG TABLET PO (08:05)
[2023-06-25] MEDS: QUEtiapine Fumarate 100 MG TABLET PO ×2 (08:05→17:06)
[2023-06-25] MEDS: Fluticasone/Vilanterol 200/25 BLST.W.DEV 1 PUFF INHALE (08:08)
[2023-06-25] MEDS: Tiotropium Bromide 2.5 mcg 1 PUFF/2.5 MCG MIST.INHAL 2 PUFF INHALE (08:08)
[2023-06-25] MEDS: Ondansetron ODT 4 MG TAB.RAPDIS TRANSLINGU (08:09)
[2023-06-25 08:30] VITALS: BP 139/76; PULSE 86; RESP 18; TEMP 36.4; O2SAT 94
[2023-06-25] MEDS: Buprenorphine/Naloxone 8/2 mg FILM 1 FILM SUBLINGUAL (08:30)
--- NOTE | 2023-06-25 10:58 | HO.PSYCHPN ---
Subjective Subjective Date of Service: 06/25/23 Reason For Visit: psychosis/SI Subjective Notes: Conditional Voluntary Interim History: Patient was seen and discussed in rounds. Records and plans were reviewed. He has been more visible but still guarded. He does have some auditory hallucinations but not command in nature. Sleeping adequately. Yesterday his ibuprofen was increased for his back pain. No changes were made today He was seen with the help of an certified hearing instrument dispenser. Review of Systems Review of Systems Back pain Yes all other systems are reviewed and are negative Mental Status Exam Mental Status Exam Narrative: In today's visit he is alert, pleasant and interactive. Normal speech. Little eye contact. Affect is appropriate and varied. No signs of psychosis. No indications of SI. No dangerous behaviors. Cognitively appears to be intact. Judgment is intact Diagnostics Vital Signs (24Hr): Vital Signs - 24 hr 06/24/23 20:05 06/25/23 08:30 Temperature 97.9 F 97.5 F Pulse Rate 84 86 Respiratory Rate 18 Blood Pressure 111/63 139/76 Pulse Oximetry 94 Oxygen Delivery Method Room Air BMI result Body Mass Index 20.5 Labs 06/20/23 00:08 06/20/23 00:08 Imaging Radiology Impressions: ITS Impressions Chest X-Ray 06/19/23 23:35 IMPRESSION: Unremarkable examination. Medications Medications Current Medications Acetaminophen (Acetaminophen 325 Mg Tablet) 650 mg PO Q6H PRN PRN Reason: Headache/Pain Mild Scale (1-3) Last Admin: 06/23/23 19:04 Dose: 650 mg Al Hydroxide/Mg Hydroxide (Magnesium Hydrox/Alum Hydrox 30 Ml Oral.Susp) 30 ml PO Q6H PRN PRN Reason: Heartburn/Nausea Albuterol Sulfate (Albuterol Sulfate 90 Mcg 8 Gm Inhaler) 2 puff INHALE Q4H PRN PRN Reason: Wheezing Last Admin: 06/20/23 23:10 Dose: 2 puff Albuterol/Ipratropium (Albuterol/Iprat 2.5/0.5mg 3 Ml Ampul.Neb) 3 ml INHALE TID PRN PRN Reason: wheezing Atorvastatin Calcium (Atorvastatin Calcium 40 Mg Tablet) 40 mg PO BEDTIME [facility] Last Admin: 06/24/23 20:14 Dose: 40 mg Buprenorphine/Naloxone (Buprenorphine/Naloxone 8/2 Mg Film) 1 film SUBLINGUAL DAILY [facility] Last Admin: 06/25/23 08:30 Dose: 1 film Clonazepam (Clonazepam 0.5 Mg Tablet) 0.5 mg PO BID [facility] Last Admin: 06/25/23 08:05 Dose: 0.5 mg Cyclobenzaprine HCl (Cyclobenzaprine Hcl 10 Mg Tablet) 10 mg PO TID PRN PRN Reason: back pain Last Admin: 06/24/23 17:13 Dose: 10 mg Ferrous Sulfate (Ferrous Sulfate 324 Mg Tablet.) 324 mg PO BEDTIME [facility] Last Admin: 06/24/23 20:13 Dose: 324 mg Fluticasone/Vilanterol (Fluticasone/Vilanterol 200/25 Blst.W.Dev) 1 puff INHALE RDAILY [facility] Last Admin: 06/25/23 08:08 Dose: 1 puff Hydroxyzine HCl (Hydroxyzine Hcl 50 Mg Tablet) 50 mg PO BID PRN PRN Reason: itch Last Admin: 06/23/23 14:00 Dose: 50 mg Magnesium Hydroxide (Milk Of Magnesia 30 Ml Oral.Susp) 30 ml PO DAILY PRN PRN Reason: Constipation Mirtazapine (Mirtazapine 30 Mg Tablet) 30 mg PO BEDTIME [facility] Last Admin: 06/24/23 20:14 Dose: 30 mg Nicotine (Nicotine 21 Mg Patch.Td24) 21 mg TRANSDERMA DAILY PRN PRN Reason: smoking cessation Nicotine Polacrilex (Nicotine Polacrilex 2 Mg Gum) 4 mg BUCCAL Q2H PRN PRN Reason: Nicotine Cravings Omeprazole (Omeprazole 20 Mg Capsule.) 20 mg PO DAILY@0630 [facility] Last Admin: 06/25/23 05:46 Dose: 20 mg Ondansetron HCl (Ondansetron Odt 4 Mg Tab.Rapdis) 4 mg TRANSLINGU Q8H PRN PRN Reason: Nausea Last Admin: 06/25/23 08:09 Dose: 4 mg Quetiapine Fumarate (Quetiapine Fumarate 400 Mg Tablet) 400 mg PO BEDTIME [facility] Last Admin: 06/24/23 20:13 Dose: 400 mg Quetiapine Fumarate (Quetiapine Fumarate 100 Mg Tablet) 100 mg PO BID@0900,1800 [facility] Last Admin: 06/25/23 08:05 Dose: 100 mg Quetiapine Fumarate (Quetiapine Fumarate 50 Mg Tablet) 50 mg PO QID PRN PRN Reason: anxiety/restlessness Last Admin: 06/24/23 14:13 Dose: 50 mg Risperidone (Risperidone 3 Mg Tablet) 3 mg PO BEDTIME [facility] Last Admin: 06/24/23 20:13 Dose: 3 mg Risperidone (Risperidone 1 Mg Tablet) 1 mg PO DAILY [facility] Last Admin: 06/25/23 08:05 Dose: 1 mg Tamsulosin HCl (Tamsulosin Hcl 0.4 Mg Capsule) 0.8 mg PO DAILY [facility] Last Admin: 06/25/23 08:05 Dose: 0.8 mg Tiotropium [place] (Tiotropium [place] 2.5 Mcg 1 Puff/2.5 Mcg Mist.Inhal) 2 puff INHALE DAILY [facility] Last Admin: 06/25/23 08:08 Dose: 2 puff Topiramate (Topiramate 25 Mg Tablet) 50 mg PO BEDTIME [facility] Last Admin: 06/24/23 20:13 Dose: 50 mg Trazodone HCl (Trazodone Hcl 50 Mg Tablet) 50 mg PO BEDTIME MRX1 PRN PRN Reason: Insomnia Last Admin: 06/21/23 02:50 Dose: 50 mg Venlafaxine HCl (Venlafaxine Hcl Er 75 Mg Cap.Er.24h) 75 mg PO DAILY [facility] Last Admin: 06/25/23 08:05 Dose: 75 mg Verapamil HCl (Verapamil Hcl Sr 120 Mg Tablet.Er) 120 mg PO DAILY [facility]; Protocol Last Admin: 06/25/23 08:05 Dose: 120 mg Zolpidem Tartrate (Zolpidem Tartrate 5 Mg Tablet) 5 mg PO BEDTIME PRN PRN Reason: Insomnia Last Admin: 06/24/23 20:16 Dose: 5 mg Allergies Allergies Allergy/AdvReac Type Severity Reaction Status Date / Time ibuprofen Allergy Intermediate Stomach Verified 06/20/23 12:08 Upset penicillin V Allergy Intermediate rash Verified 06/20/23 12:08 Assessment & Plan Assessment & Plan (1) Bipolar 2 disorder, major depressive episode: Status: Acute Code(s): F31.81 - Bipolar II disorder (2) Cocaine use disorder: Status: Acute Code(s): F14.10 - Cocaine abuse, uncomplicated (3) Cannabis use disorder, moderate, dependence: Status: Acute Code(s): F12.20 - Cannabis dependence, uncomplicated Plan Patient is a 58 year old male with hx of Bipolar d/o, polysubstance use, with hx of multiple inpatient psychiatric hospitalizations, who was seen by crisis d/t suicidal ideation secondary to increased auditory hallucinations that are telling him to harm himself. 06/22 increased mirtazapine to 30mg 06/23 Patient reports he remains very depressed and that auditory hallucinations are very bothersome; he says they are worse at night. Still feels suicidal and does not want to talk about if he has a plan or not. Because AH is worse at night, he agrees to increasing Risperdal and putting the bulk of it at bedtime rather than split in it over the day. Discussed behavioral activation with which patient agrees Plan: CV 15 minute safety checks increased mirtazapine to 30mg Increasing Risperdal to 3 mg q.h.s. and 1 mg in the morning otherwise Continue home medications Possible referral to substance abuse program? 06/24: Continue current plans and regimen 06/25:Continue current regimen and plans Reason for continued inpatient stay Substantial Risk for: med/psych decompensation Time Spent With Patient Time: Total time managing care of this patient today ____ minutes.
[2023-06-25] MEDS: QUEtiapine Fumarate 50 MG TABLET PO (13:33)
[2023-06-25 17:05] VITALS: BP 102/59; PULSE 93; TEMP 36.7
[2023-06-25] MEDS: Cyclobenzaprine HCl 10 MG TABLET PO (17:08)
[2023-06-25] MEDS: Mirtazapine 30 MG TABLET PO (21:20)
[2023-06-25] MEDS: Topiramate 25 MG TABLET 50 MG PO (21:20)
[2023-06-25] MEDS: Atorvastatin Calcium 40 MG TABLET PO (21:20)
[2023-06-25] MEDS: Ferrous Sulfate 324 MG TABLET.DR PO (21:21)
[2023-06-25] MEDS: risperiDONE 3 MG TABLET PO (21:21)
[2023-06-25] MEDS: QUEtiapine Fumarate 400 MG TABLET PO (21:21)
[2023-06-25] MEDS: Zolpidem Tartrate 5 MG TABLET PO (21:23)
[2023-06-26] MEDS: Omeprazole 20 MG CAPSULE.DR PO (05:50)
[2023-06-26 08:35] VITALS: BP 102/62; PULSE 92; RESP 18; TEMP 2.6; TEMP 36.7; O2SAT 97
--- NOTE | 2023-06-26 09:13 | HO.PSYCHPN ---
Subjective Subjective Date of Service: 06/26/23 Reason For Visit: psychosis/SI Interim History: Met with Patient; discussed with team; reviewed chart; seen with student services coordinator Pt reports still feeling depressed but that overall his mood is better; he is still anxious but doing better. AH remains but is also less. Pt shared how much he loves his granddaughter and that she is the light of his soul. He laughed and smiled while talking about her; discussed symptoms further and pt reports that when he's with his granddaughter and even for awhile after she leaves he does not have any AH. He further agrees that his AH is likely mood congruent. Discussed medications and he agrees to increasing Effexor for depression. Discussed need for sobriety and he agrees that without consistent sobriety his depression is unlikely to remain improved. Pt w/out any SI and feels ready to discharge planning. lost dentures last time here; asking about them Mental Status Exam Mental Status Exam Narrative: Pt is alert and oriented; behavior is cooperative, friendly and calm; dressed in casual attire; mood is described as better and affect congruent, brighter, more calm; eye contact appropriate; Speech is normal rate, volume and prosody and not pressured; thought process is organized and goal directed; Thought content is on missing his son, mother; tx; otherwise pertinent to relevant topics and without any delusional content, paranoid ideations or grandiosity; denies HI/VH. Pt denies SI/HI; Still with AH but less; Patients insight and judgment are improved and fair. Diagnostics Vital Signs (24Hr): Vital Signs - 24 hr 06/25/23 17:05 Temperature 98.1 F Pulse Rate 93 Blood Pressure 102/59 L BMI result Body Mass Index 20.5 Labs 06/20/23 00:08 06/20/23 00:08 Imaging Radiology Impressions: ITS Impressions Chest X-Ray 06/19/23 23:35 IMPRESSION: Unremarkable examination. Medications Medications Current Medications Acetaminophen (Acetaminophen 325 Mg Tablet) 650 mg PO Q6H PRN PRN Reason: Headache/Pain Mild Scale (1-3) Last Admin: 06/23/23 19:04 Dose: 650 mg Al Hydroxide/Mg Hydroxide (Magnesium Hydrox/Alum Hydrox 30 Ml Oral.Susp) 30 ml PO Q6H PRN PRN Reason: Heartburn/Nausea Albuterol Sulfate (Albuterol Sulfate 90 Mcg 8 Gm Inhaler) 2 puff INHALE Q4H PRN PRN Reason: Wheezing Last Admin: 06/20/23 23:10 Dose: 2 puff Albuterol/Ipratropium (Albuterol/Iprat 2.5/0.5mg 3 Ml Ampul.Neb) 3 ml INHALE TID PRN PRN Reason: wheezing Atorvastatin Calcium (Atorvastatin Calcium 40 Mg Tablet) 40 mg PO BEDTIME [facility] Last Admin: 06/25/23 21:20 Dose: 40 mg Buprenorphine/Naloxone (Buprenorphine/Naloxone 8/2 Mg Film) 1 film SUBLINGUAL DAILY [facility] Last Admin: 06/25/23 08:30 Dose: 1 film Clonazepam (Clonazepam 0.5 Mg Tablet) 0.5 mg PO BID [facility] Last Admin: 06/25/23 21:21 Dose: 0.5 mg Cyclobenzaprine HCl (Cyclobenzaprine Hcl 10 Mg Tablet) 10 mg PO TID PRN PRN Reason: back pain Last Admin: 06/25/23 17:08 Dose: 10 mg Ferrous Sulfate (Ferrous Sulfate 324 Mg Tablet.) 324 mg PO BEDTIME [facility] Last Admin: 06/25/23 21:21 Dose: 324 mg Fluticasone/Vilanterol (Fluticasone/Vilanterol 200/25 Blst.W.Dev) 1 puff INHALE RDAILY [facility] Last Admin: 06/25/23 08:08 Dose: 1 puff Hydroxyzine HCl (Hydroxyzine Hcl 50 Mg Tablet) 50 mg PO BID PRN PRN Reason: itch Last Admin: 06/23/23 14:00 Dose: 50 mg Magnesium Hydroxide (Milk Of Magnesia 30 Ml Oral.Susp) 30 ml PO DAILY PRN PRN Reason: Constipation Mirtazapine (Mirtazapine 30 Mg Tablet) 30 mg PO BEDTIME [facility] Last Admin: 06/25/23 21:20 Dose: 30 mg Nicotine (Nicotine 21 Mg Patch.Td24) 21 mg TRANSDERMA DAILY PRN PRN Reason: smoking cessation Nicotine Polacrilex (Nicotine Polacrilex 2 Mg Gum) 4 mg BUCCAL Q2H PRN PRN Reason: Nicotine Cravings Omeprazole (Omeprazole 20 Mg Capsule.Dr) 20 mg PO DAILY@0630 [facility] Last Admin: 06/26/23 05:50 Dose: 20 mg Ondansetron HCl (Ondansetron Odt 4 Mg Tab.Rapdis) 4 mg TRANSLINGU Q8H PRN PRN Reason: Nausea Last Admin: 06/25/23 08:09 Dose: 4 mg Quetiapine Fumarate (Quetiapine Fumarate 400 Mg Tablet) 400 mg PO BEDTIME [facility] Last Admin: 06/25/23 21:21 Dose: 400 mg Quetiapine Fumarate (Quetiapine Fumarate 100 Mg Tablet) 100 mg PO BID@0900,1800 [facility] Last Admin: 06/25/23 17:06 Dose: 100 mg Quetiapine Fumarate (Quetiapine Fumarate 50 Mg Tablet) 50 mg PO QID PRN PRN Reason: anxiety/restlessness Last Admin: 06/25/23 13:33 Dose: 50 mg Risperidone (Risperidone 3 Mg Tablet) 3 mg PO BEDTIME [facility] Last Admin: 06/25/23 21:21 Dose: 3 mg Risperidone (Risperidone 1 Mg Tablet) 1 mg PO DAILY [facility] Last Admin: 06/25/23 08:05 Dose: 1 mg Tamsulosin HCl (Tamsulosin Hcl 0.4 Mg Capsule) 0.8 mg PO DAILY [facility] Last Admin: 06/25/23 08:05 Dose: 0.8 mg Tiotropium [place] (Tiotropium [place] 2.5 Mcg 1 Puff/2.5 Mcg Mist.Inhal) 2 puff INHALE DAILY [facility] Last Admin: 06/25/23 08:08 Dose: 2 puff Topiramate (Topiramate 25 Mg Tablet) 50 mg PO BEDTIME [facility] Last Admin: 06/25/23 21:20 Dose: 50 mg Trazodone HCl (Trazodone Hcl 50 Mg Tablet) 50 mg PO BEDTIME MRX1 PRN PRN Reason: Insomnia Last Admin: 06/21/23 02:50 Dose: 50 mg Venlafaxine HCl (Venlafaxine Hcl Er 75 Mg Cap.Er.24h) 75 mg PO DAILY [facility] Last Admin: 06/25/23 08:05 Dose: 75 mg Verapamil HCl (Verapamil Hcl Sr 120 Mg Tablet.Er) 120 mg PO DAILY [facility]; Protocol Last Admin: 06/25/23 08:05 Dose: 120 mg Allergies Allergies Allergy/AdvReac Type Severity Reaction Status Date / Time ibuprofen Allergy Intermediate Stomach Verified 06/20/23 12:08 Upset penicillin V Allergy Intermediate rash Verified 06/20/23 12:08 Assessment & Plan Assessment & Plan (1) Bipolar 2 disorder, major depressive episode: Status: Acute Code(s): F31.81 - Bipolar II disorder (2) Cocaine use disorder: Status: Acute Code(s): F14.10 - Cocaine abuse, uncomplicated (3) Cannabis use disorder, moderate, dependence: Status: Acute Code(s): F12.20 - Cannabis dependence, uncomplicated Plan Patient is a 58 year old male with hx of Bipolar d/o, polysubstance use, with hx of multiple inpatient psychiatric hospitalizations, who was seen by crisis d/t suicidal ideation secondary to increased auditory hallucinations that are telling him to harm himself. 06/22 increased mirtazapine to 30mg 06/23 Patient reports he remains very depressed and that auditory hallucinations are very bothersome; he says they are worse at night. Still feels suicidal and does not want to talk about if he has a plan or not. Because AH is worse at night, he agrees to increasing Risperdal and putting the bulk of it at bedtime rather than split in it over the day. Discussed behavioral activation with which patient agrees 06/26 Pt reports still feeling depressed but that overall his mood is better; he is still anxious but doing better. AH remains but is also less. Pt shared how much he loves his granddaughter and that she is the light of his soul. He laughed and smiled while talking about her; discussed symptoms further and pt reports that when he's with his granddaughter and even for awhile after she leaves he does not have any AH. He further agrees that his AH is likely mood congruent. Discussed medications and he agrees to increasing Effexor for depression. Discussed need for sobriety and he agrees that without consistent sobriety his depression is unlikely to remain improved. Pt w/out any SI and feels ready to discharge planning. Plan: CV 15 minute safety checks INcREASE Effexor ER to 150mg Continue mirtazapine to 30mg Continue Risperdal to 3 mg q.h.s. and 1 mg in the morning otherwise Continue home medications Possible referral to substance abuse program? Patient educated on: diagnosis, medication risk/benefits, substance abuse and therapeutic strategies Informed Consent: understands Reason for continued inpatient stay Substantial Risk for: stable for discharge Time Spent With Patient Time: Total time managing care of this patient today ____ minutes.
[2023-06-26] MEDS: Tiotropium Bromide 2.5 mcg 1 PUFF/2.5 MCG MIST.INHAL 2 PUFF INHALE (09:45)
[2023-06-26] MEDS: Fluticasone/Vilanterol 200/25 BLST.W.DEV 1 PUFF INHALE (09:45)
[2023-06-26] MEDS: Albuterol Sulfate 90 MCG 8 GM INHALER 2 PUFF INHALE (09:45)
[2023-06-26] MEDS: Buprenorphine/Naloxone 8/2 mg FILM 1 FILM SUBLINGUAL (09:47)
[2023-06-26] MEDS: Tamsulosin HCL 0.4 MG CAPSULE 0.8 MG PO (09:48)
[2023-06-26] MEDS: clonazePAM 0.5 MG TABLET PO ×2 (09:48→20:06)
[2023-06-26] MEDS: risperiDONE 1 MG TABLET PO (09:48)
[2023-06-26] MEDS: Venlafaxine HCl ER 75 MG CAP.ER.24H PO (09:48)
[2023-06-26] MEDS: VerapamiL HCL SR 120 MG TABLET.ER PO (09:48)
[2023-06-26] MEDS: QUEtiapine Fumarate 100 MG TABLET PO ×2 (09:48→18:32)
[2023-06-26] MEDS: Ondansetron ODT 4 MG TAB.RAPDIS TRANSLINGU (09:52)
[2023-06-26] MEDS: QUEtiapine Fumarate 50 MG TABLET PO (11:44)
[2023-06-26] MEDS: hydrOXYzine HCL 50 MG TABLET PO (11:46)
[2023-06-26] MEDS: Venlafaxine HCl ER 37.5 MG CAP.ER.24H PO (13:53)
[2023-06-26 17:55] LABS: Influenza A PCR NEGATIVE (Negative); Influenza B PCR NEGATIVE (Negative); Resp Syncy Virus RNA Qual PCR NEGATIVE (Negative); SARS COV2 PCR INHOUSE NEGATIVE (Negative)
[2023-06-26 18:00] VITALS: BP 122/67; PULSE 89; RESP 18; TEMP 36.6; O2SAT 97
[2023-06-26] MEDS: traZODone HCL 50 MG TABLET PO (20:06)
[2023-06-26] MEDS: QUEtiapine Fumarate 400 MG TABLET PO (20:06)
[2023-06-26] MEDS: Topiramate 25 MG TABLET 50 MG PO (20:06)
[2023-06-26] MEDS: risperiDONE 3 MG TABLET PO (20:06)
[2023-06-26] MEDS: Mirtazapine 30 MG TABLET PO (20:06)
[2023-06-26] MEDS: Ferrous Sulfate 324 MG TABLET.DR PO (20:07)
[2023-06-26] MEDS: Cyclobenzaprine HCl 10 MG TABLET PO (20:07)
[2023-06-26] MEDS: Atorvastatin Calcium 40 MG TABLET PO (20:07)
[2023-06-26] MEDS: Zolpidem Tartrate 5 MG TABLET PO (20:19)
[2023-06-27] MEDS: Omeprazole 20 MG CAPSULE.DR PO (05:57)
[2023-06-27 08:50] VITALS: BP 126/77; PULSE 95; RESP 16; TEMP 36.6; O2SAT 94
[2023-06-27] MEDS: Fluticasone/Vilanterol 200/25 BLST.W.DEV 1 PUFF INHALE (08:51)
[2023-06-27] MEDS: Venlafaxine HCl ER 150 MG CAP.ER.24H PO (08:52)
[2023-06-27] MEDS: risperiDONE 1 MG TABLET PO (08:52)
[2023-06-27] MEDS: Tamsulosin HCL 0.4 MG CAPSULE 0.8 MG PO (08:52)
[2023-06-27] MEDS: VerapamiL HCL SR 120 MG TABLET.ER PO (08:52)
[2023-06-27] MEDS: Buprenorphine/Naloxone 8/2 mg FILM 1 FILM SUBLINGUAL (08:52)
[2023-06-27] MEDS: Tiotropium Bromide 2.5 mcg 1 PUFF/2.5 MCG MIST.INHAL 2 PUFF INHALE (08:52)
[2023-06-27] MEDS: QUEtiapine Fumarate 100 MG TABLET PO ×2 (08:52→17:58)
[2023-06-27] MEDS: Ondansetron ODT 4 MG TAB.RAPDIS TRANSLINGU (08:59)
[2023-06-27] MEDS: clonazePAM 0.5 MG TABLET PO ×2 (09:16→19:43)
--- NOTE | 2023-06-27 10:00 | HO.PSYCHPN ---
Subjective Subjective Date of Service: 06/27/23 Reason For Visit: psychosis/SI Interim History: met with patient; discussed with team Mood is better, and affect noticeably brighter, patient in the milieu socializing, smiling interacting well. Patient intermittently emotional but resolves quickly. Mental Status Exam Mental Status Exam Narrative: Pt is alert and oriented; behavior is cooperative, friendly and calm; dressed in casual attire; mood is described as better and affect congruent, brighter, more calm; eye contact appropriate; Speech is normal rate, volume and prosody and not pressured; thought process is organized and goal directed; Thought content is on missing his son, mother; tx; otherwise pertinent to relevant topics and without any delusional content, paranoid ideations or grandiosity; denies HI/VH. Pt denies SI/HI; Still with AH but less; Patients insight and judgment are improved and fair. Diagnostics Vital Signs (24Hr): Vital Signs - 24 hr 06/26/23 18:00 06/27/23 08:50 Temperature 97.9 F 97.9 F Pulse Rate 89 95 Respiratory Rate 18 16 Blood Pressure 122/67 126/77 Pulse Oximetry 97 94 Oxygen Delivery Method Room Air Room Air BMI result Body Mass Index 20.5 Labs 06/20/23 00:08 06/20/23 00:08 Labs: Laboratory Results - last 48 hr 06/26/23 15:24 Influenza Type A (PCR) NEGATIVE Influenza Type B (PCR) NEGATIVE RSV RNA Qual (PCR) NEGATIVE SARS-CoV-2 RNA (RT-PCR) NEGATIVE Imaging Radiology Impressions: ITS Impressions Chest X-Ray 06/19/23 23:35 IMPRESSION: Unremarkable examination. Medications Medications Current Medications Acetaminophen (Acetaminophen 325 Mg Tablet) 650 mg PO Q6H PRN PRN Reason: Headache/Pain Mild Scale (1-3) Last Admin: 06/23/23 19:04 Dose: 650 mg Al Hydroxide/Mg Hydroxide (Magnesium Hydrox/Alum Hydrox 30 Ml Oral.Susp) 30 ml PO Q6H PRN PRN Reason: Heartburn/Nausea Albuterol Sulfate (Albuterol Sulfate 90 Mcg 8 Gm Inhaler) 2 puff INHALE Q4H PRN PRN Reason: Wheezing Last Admin: 06/26/23 09:45 Dose: 2 puff Albuterol/Ipratropium (Albuterol/Iprat 2.5/0.5mg 3 Ml Ampul.Neb) 3 ml INHALE TID PRN PRN Reason: wheezing Atorvastatin Calcium (Atorvastatin Calcium 40 Mg Tablet) 40 mg PO BEDTIME [facility] Last Admin: 06/26/23 20:07 Dose: 40 mg Buprenorphine/Naloxone (Buprenorphine/Naloxone 8/2 Mg Film) 1 film SUBLINGUAL DAILY [facility] Last Admin: 06/27/23 08:52 Dose: 1 film Clonazepam (Clonazepam 0.5 Mg Tablet) 0.5 mg PO BID PRN PRN Reason: anxiety Last Admin: 06/27/23 09:16 Dose: 0.5 mg Cyclobenzaprine HCl (Cyclobenzaprine Hcl 10 Mg Tablet) 10 mg PO TID PRN PRN Reason: back pain Last Admin: 06/26/23 20:07 Dose: 10 mg Ferrous Sulfate (Ferrous Sulfate 324 Mg Tablet.Dr) 324 mg PO BEDTIME [facility] Last Admin: 06/26/23 20:07 Dose: 324 mg Fluticasone/Vilanterol (Fluticasone/Vilanterol 200/25 Blst.W.Dev) 1 puff INHALE RDAILY [facility] Last Admin: 06/27/23 08:51 Dose: 1 puff Hydroxyzine HCl (Hydroxyzine Hcl 50 Mg Tablet) 50 mg PO BID PRN PRN Reason: itch Last Admin: 06/26/23 11:46 Dose: 50 mg Magnesium Hydroxide (Milk Of Magnesia 30 Ml Oral.Susp) 30 ml PO DAILY PRN PRN Reason: Constipation Mirtazapine (Mirtazapine 30 Mg Tablet) 30 mg PO BEDTIME [facility] Last Admin: 06/26/23 20:06 Dose: 30 mg Nicotine (Nicotine 21 Mg Patch.Td24) 21 mg TRANSDERMA DAILY PRN PRN Reason: smoking cessation Nicotine Polacrilex (Nicotine Polacrilex 2 Mg Gum) 4 mg BUCCAL Q2H PRN PRN Reason: Nicotine Cravings Omeprazole (Omeprazole 20 Mg Capsule.Dr) 20 mg PO DAILY@0630 [facility] Last Admin: 06/27/23 05:57 Dose: 20 mg Ondansetron HCl (Ondansetron Odt 4 Mg Tab.Rapdis) 4 mg TRANSLINGU Q8H PRN PRN Reason: Nausea Last Admin: 06/27/23 08:59 Dose: 4 mg Quetiapine Fumarate (Quetiapine Fumarate 400 Mg Tablet) 400 mg PO BEDTIME [facility] Last Admin: 06/26/23 20:06 Dose: 400 mg Quetiapine Fumarate (Quetiapine Fumarate 100 Mg Tablet) 100 mg PO BID@0900,1800 [facility] Last Admin: 06/27/23 08:52 Dose: 100 mg Quetiapine Fumarate (Quetiapine Fumarate 50 Mg Tablet) 50 mg PO QID PRN PRN Reason: anxiety/restlessness Last Admin: 06/26/23 11:44 Dose: 50 mg Risperidone (Risperidone 3 Mg Tablet) 3 mg PO BEDTIME [facility] Last Admin: 06/26/23 20:06 Dose: 3 mg Risperidone (Risperidone 1 Mg Tablet) 1 mg PO DAILY [facility] Last Admin: 06/27/23 08:52 Dose: 1 mg Tamsulosin HCl (Tamsulosin Hcl 0.4 Mg Capsule) 0.8 mg PO DAILY [facility] Last Admin: 06/27/23 08:52 Dose: 0.8 mg Tiotropium [place] (Tiotropium [place] 2.5 Mcg 1 Puff/2.5 Mcg Mist.Inhal) 2 puff INHALE DAILY [facility] Last Admin: 06/27/23 08:52 Dose: 2 puff Topiramate (Topiramate 25 Mg Tablet) 50 mg PO BEDTIME [facility] Last Admin: 06/26/23 20:06 Dose: 50 mg Trazodone HCl (Trazodone Hcl 50 Mg Tablet) 50 mg PO BEDTIME MRX1 PRN PRN Reason: Insomnia Last Admin: 06/26/23 20:06 Dose: 50 mg Venlafaxine HCl (Venlafaxine Hcl Er 150 Mg Cap.Er.24h) 150 mg PO DAILY [facility] Last Admin: 06/27/23 08:52 Dose: 150 mg Verapamil HCl (Verapamil Hcl Sr 120 Mg Tablet.Er) 120 mg PO DAILY [facility]; Protocol Last Admin: 06/27/23 08:52 Dose: 120 mg Zolpidem Tartrate (Zolpidem Tartrate 5 Mg Tablet) 5 mg PO BEDTIME [facility] Last Admin: 06/27/23 08:06 Dose: Not Given Allergies Allergies Allergy/AdvReac Type Severity Reaction Status Date / Time ibuprofen Allergy Intermediate Stomach Verified 06/20/23 12:08 Upset penicillin V Allergy Intermediate rash Verified 06/20/23 12:08 Assessment & Plan Assessment & Plan (1) Bipolar 2 disorder, major depressive episode: Status: Acute Code(s): F31.81 - Bipolar II disorder (2) Cocaine use disorder: Status: Acute Code(s): F14.10 - Cocaine abuse, uncomplicated (3) Cannabis use disorder, moderate, dependence: Status: Acute Code(s): F12.20 - Cannabis dependence, uncomplicated Plan Patient is a 58 year old male with hx of Bipolar d/o, polysubstance use, with hx of multiple inpatient psychiatric hospitalizations, who was seen by crisis d/t suicidal ideation secondary to increased auditory hallucinations that are telling him to harm himself. 06/22 increased mirtazapine to 30mg 06/23 Patient reports he remains very depressed and that auditory hallucinations are very bothersome; he says they are worse at night. Still feels suicidal and does not want to talk about if he has a plan or not. Because AH is worse at night, he agrees to increasing Risperdal and putting the bulk of it at bedtime rather than split in it over the day. Discussed behavioral activation with which patient agrees 06/26 Pt reports still feeling depressed but that overall his mood is better; he is still anxious but doing better. AH remains but is also less. Pt shared how much he loves his granddaughter and that she is the light of his soul. He laughed and smiled while talking about her; discussed symptoms further and pt reports that when he's with his granddaughter and even for awhile after she leaves he does not have any AH. He further agrees that his AH is likely mood congruent. Discussed medications and he agrees to increasing Effexor for depression. Discussed need for sobriety and he agrees that without consistent sobriety his depression is unlikely to remain improved. Pt w/out any SI and feels ready to discharge planning. -diagnosis more likely MDD with mood congruent AH however too much substance abuse history and patient with vague reporting to rule out history of hypomanic episodes so will leave bipolar 2 diagnosis for now 06/27 stable; continue with current treatment plan Plan: CV 15 minute safety checks Continue Effexor ER to 150mg Continue mirtazapine to 30mg Continue Risperdal to 3 mg q.h.s. and 1 mg in the morning otherwise Continue home medications Possible referral to substance abuse program? Patient educated on: diagnosis Informed Consent: understands Reason for continued inpatient stay Substantial Risk for: stable for discharge Time Spent With Patient Time: Total time managing care of this patient today ____ minutes.
[2023-06-27] MEDS: QUEtiapine Fumarate 50 MG TABLET PO (11:29)
[2023-06-27] MEDS: hydrOXYzine HCL 50 MG TABLET PO (16:36)
[2023-06-27 18:00] VITALS: BP 124/66; PULSE 89; TEMP 36.3; O2SAT 94
[2023-06-27] MEDS: Mirtazapine 30 MG TABLET PO (19:40)
[2023-06-27] MEDS: Topiramate 25 MG TABLET 50 MG PO (19:40)
[2023-06-27] MEDS: Zolpidem Tartrate 5 MG TABLET PO (19:40)
[2023-06-27] MEDS: risperiDONE 3 MG TABLET PO (19:40)
[2023-06-27] MEDS: Atorvastatin Calcium 40 MG TABLET PO (19:41)
[2023-06-27] MEDS: QUEtiapine Fumarate 400 MG TABLET PO (19:41)
[2023-06-27] MEDS: Ferrous Sulfate 324 MG TABLET.DR PO (19:41)
[2023-06-28] MEDS: traZODone HCL 50 MG TABLET PO ×2 (03:04→20:35)
[2023-06-28] MEDS: hydrOXYzine HCL 50 MG TABLET PO (03:05)
[2023-06-28] MEDS: Omeprazole 20 MG CAPSULE.DR PO (06:22)
[2023-06-28] MEDS: Tiotropium Bromide 2.5 mcg 1 PUFF/2.5 MCG MIST.INHAL 2 PUFF INHALE (08:38)
[2023-06-28] MEDS: Fluticasone/Vilanterol 200/25 BLST.W.DEV 1 PUFF INHALE (08:38)
[2023-06-28] MEDS: Venlafaxine HCl ER 150 MG CAP.ER.24H PO (08:39)
[2023-06-28] MEDS: Ondansetron ODT 4 MG TAB.RAPDIS TRANSLINGU (08:39)
[2023-06-28] MEDS: risperiDONE 1 MG TABLET PO (08:39)
[2023-06-28] MEDS: QUEtiapine Fumarate 100 MG TABLET PO ×2 (08:39→17:06)
[2023-06-28] MEDS: VerapamiL HCL SR 120 MG TABLET.ER PO (08:39)
[2023-06-28] MEDS: Tamsulosin HCL 0.4 MG CAPSULE 0.8 MG PO (08:39)
[2023-06-28] MEDS: Buprenorphine/Naloxone 8/2 mg FILM 1 FILM SUBLINGUAL (08:39)
[2023-06-28] MEDS: clonazePAM 0.5 MG TABLET PO ×2 (08:43→20:45)
[2023-06-28 08:46] VITALS: BP 134/83; PULSE 104; RESP 18; TEMP 37.7; O2SAT 92
--- NOTE | 2023-06-28 09:15 | HO.PSYCHPN ---
Subjective Subjective Date of Service: 06/28/23 Reason For Visit: psychosis/SI Interim History: Met with patient; discussed with team Patient anxious about discharging given the fact that he has RSV and COPD; asking for updraft more often. Says he is worried that he will end up unable to breathe. Patient's O2 sats remain at baseline and patient afebrile; talking without any troubles. Agrees to see how it goes and decide tomorrow Mental Status Exam Mental Status Exam Narrative: Pt is alert and oriented; behavior is cooperative, friendly and calm; dressed in casual attire; mood is described as anxious and affect congruent; eye contact appropriate; Speech is normal rate, volume and prosody and not pressured; thought process is organized and goal directed; Thought content is on missing his son, mother; tx; otherwise pertinent to relevant topics and without any delusional content, paranoid ideations or grandiosity; denies HI/VH. Pt denies SI/HI; Still with AH but less; Patients insight and judgment are improved and fair. Diagnostics Vital Signs (24Hr): Vital Signs - 24 hr 06/27/23 18:00 06/28/23 08:46 Temperature 97.3 F 100 F Pulse Rate 89 104 H Respiratory Rate 18 Blood Pressure 124/66 134/83 Pulse Oximetry 94 92 Oxygen Delivery Method Room Air Room Air BMI result Body Mass Index 20.5 Labs 06/20/23 00:08 06/20/23 00:08 Labs: Laboratory Results - last 48 hr 06/26/23 15:24 Influenza Type A (PCR) NEGATIVE Influenza Type B (PCR) NEGATIVE RSV RNA Qual (PCR) NEGATIVE SARS-CoV-2 RNA (RT-PCR) NEGATIVE Imaging Radiology Impressions: ITS Impressions Chest X-Ray 06/19/23 23:35 IMPRESSION: Unremarkable examination. Medications Medications Current Medications Acetaminophen (Acetaminophen 325 Mg Tablet) 650 mg PO Q6H PRN PRN Reason: Headache/Pain Mild Scale (1-3) Last Admin: 06/23/23 19:04 Dose: 650 mg Al Hydroxide/Mg Hydroxide (Magnesium Hydrox/Alum Hydrox 30 Ml Oral.Susp) 30 ml PO Q6H PRN PRN Reason: Heartburn/Nausea Albuterol Sulfate (Albuterol Sulfate 90 Mcg 8 Gm Inhaler) 2 puff INHALE Q4H PRN PRN Reason: Wheezing Last Admin: 06/26/23 09:45 Dose: 2 puff Atorvastatin Calcium (Atorvastatin Calcium 40 Mg Tablet) 40 mg PO BEDTIME [facility] Last Admin: 06/27/23 19:41 Dose: 40 mg Buprenorphine/Naloxone (Buprenorphine/Naloxone 8/2 Mg Film) 1 film SUBLINGUAL DAILY [facility] Last Admin: 06/28/23 08:39 Dose: 1 film Clonazepam (Clonazepam 0.5 Mg Tablet) 0.5 mg PO BID PRN PRN Reason: anxiety Last Admin: 06/28/23 08:43 Dose: 0.5 mg Cyclobenzaprine HCl (Cyclobenzaprine Hcl 10 Mg Tablet) 10 mg PO TID PRN PRN Reason: back pain Last Admin: 06/26/23 20:07 Dose: 10 mg Ferrous Sulfate (Ferrous Sulfate 324 Mg Tablet.Dr) 324 mg PO BEDTIME [facility] Last Admin: 06/27/23 19:41 Dose: 324 mg Fluticasone/Vilanterol (Fluticasone/Vilanterol 200/25 Blst.W.Dev) 1 puff INHALE RDAILY [facility] Last Admin: 06/28/23 08:38 Dose: 1 puff Hydroxyzine HCl (Hydroxyzine Hcl 50 Mg Tablet) 50 mg PO BID PRN PRN Reason: itch Last Admin: 06/28/23 03:05 Dose: 50 mg Magnesium Hydroxide (Milk Of Magnesia 30 Ml Oral.Susp) 30 ml PO DAILY PRN PRN Reason: Constipation Mirtazapine (Mirtazapine 30 Mg Tablet) 30 mg PO BEDTIME [facility] Last Admin: 06/27/23 19:40 Dose: 30 mg Nicotine (Nicotine 21 Mg Patch.Td24) 21 mg TRANSDERMA DAILY PRN PRN Reason: smoking cessation Nicotine Polacrilex (Nicotine Polacrilex 2 Mg Gum) 4 mg BUCCAL Q2H PRN PRN Reason: Nicotine Cravings Omeprazole (Omeprazole 20 Mg Capsule.Dr) 20 mg PO DAILY@0630 [facility] Last Admin: 06/28/23 06:22 Dose: 20 mg Ondansetron HCl (Ondansetron Odt 4 Mg Tab.Rapdis) 4 mg TRANSLINGU Q8H PRN PRN Reason: Nausea Last Admin: 06/28/23 08:39 Dose: 4 mg Quetiapine Fumarate (Quetiapine Fumarate 400 Mg Tablet) 400 mg PO BEDTIME [facility] Last Admin: 06/27/23 19:41 Dose: 400 mg Quetiapine Fumarate (Quetiapine Fumarate 100 Mg Tablet) 100 mg PO BID@0900,1800 [facility] Last Admin: 06/28/23 08:39 Dose: 100 mg Quetiapine Fumarate (Quetiapine Fumarate 50 Mg Tablet) 50 mg PO QID PRN PRN Reason: anxiety/restlessness Last Admin: 06/27/23 11:29 Dose: 50 mg Risperidone (Risperidone 3 Mg Tablet) 3 mg PO BEDTIME [facility] Last Admin: 06/27/23 19:40 Dose: 3 mg Risperidone (Risperidone 1 Mg Tablet) 1 mg PO DAILY [facility] Last Admin: 06/28/23 08:39 Dose: 1 mg Tamsulosin HCl (Tamsulosin Hcl 0.4 Mg Capsule) 0.8 mg PO DAILY [facility] Last Admin: 06/28/23 08:39 Dose: 0.8 mg Tiotropium [place] (Tiotropium [place] 2.5 Mcg 1 Puff/2.5 Mcg Mist.Inhal) 2 puff INHALE DAILY [facility] Last Admin: 06/28/23 08:38 Dose: 2 puff Topiramate (Topiramate 25 Mg Tablet) 50 mg PO BEDTIME [facility] Last Admin: 06/27/23 19:40 Dose: 50 mg Trazodone HCl (Trazodone Hcl 50 Mg Tablet) 50 mg PO BEDTIME [facility] PRN PRN Reason: Insomnia Last Admin: 06/28/23 03:04 Dose: 50 mg Venlafaxine HCl (Venlafaxine Hcl Er 150 Mg Cap.Er.24h) 150 mg PO DAILY [facility] Last Admin: 06/28/23 08:39 Dose: 150 mg Verapamil HCl (Verapamil Hcl Sr 120 Mg Tablet.Er) 120 mg PO DAILY [facility]; Protocol Last Admin: 06/28/23 08:39 Dose: 120 mg Zolpidem Tartrate (Zolpidem Tartrate 5 Mg Tablet) 5 mg PO BEDTIME [facility] Last Admin: 06/27/23 19:40 Dose: 5 mg Allergies Allergies Allergy/AdvReac Type Severity Reaction Status Date / Time ibuprofen Allergy Intermediate Stomach Verified 06/20/23 12:08 Upset penicillin V Allergy Intermediate rash Verified 06/20/23 12:08 Assessment & Plan Assessment & Plan (1) Bipolar 2 disorder, major depressive episode: Status: Acute Code(s): F31.81 - Bipolar II disorder (2) Cocaine use disorder: Status: Acute Code(s): F14.10 - Cocaine abuse, uncomplicated (3) Cannabis use disorder, moderate, dependence: Status: Acute Code(s): F12.20 - Cannabis dependence, uncomplicated Plan Patient is a 58 year old male with hx of Bipolar d/o, polysubstance use, with hx of multiple inpatient psychiatric hospitalizations, who was seen by crisis d/t suicidal ideation secondary to increased auditory hallucinations that are telling him to harm himself. 06/22 increased mirtazapine to 30mg 06/23 Patient reports he remains very depressed and that auditory hallucinations are very bothersome; he says they are worse at night. Still feels suicidal and does not want to talk about if he has a plan or not. Because AH is worse at night, he agrees to increasing Risperdal and putting the bulk of it at bedtime rather than split in it over the day. Discussed behavioral activation with which patient agrees 06/26 Pt reports still feeling depressed but that overall his mood is better; he is still anxious but doing better. AH remains but is also less. Pt shared how much he loves his granddaughter and that she is the light of his soul. He laughed and smiled while talking about her; discussed symptoms further and pt reports that when he's with his granddaughter and even for awhile after she leaves he does not have any AH. He further agrees that his AH is likely mood congruent. Discussed medications and he agrees to increasing Effexor for depression. Discussed need for sobriety and he agrees that without consistent sobriety his depression is unlikely to remain improved. Pt w/out any SI and feels ready to discharge planning. -diagnosis more likely MDD with mood congruent AH however too much substance abuse history and patient with vague reporting to rule out history of hypomanic episodes so will leave bipolar 2 diagnosis for now 06/27 stable; continue with current treatment plan 06/28 Patient anxious about discharging given the fact that he has RSV and COPD; asking for updraft more often. Says he is worried that he will end up unable to breathe. Patient's O2 sats remain at baseline and patient afebrile; talking without any troubles. Agrees to see how it goes and decide tomorrow Plan: CV 15 minute safety checks Continue Effexor ER to 150mg Continue mirtazapine to 30mg Continue Risperdal to 3 mg q.h.s. and 1 mg in the morning otherwise Continue home medications Possible referral to substance abuse program? Patient educated on: diagnosis, medication risk/benefits and medical condition Informed Consent: understands Reason for continued inpatient stay Substantial Risk for: stable for discharge Time Spent With Patient Time: Total time managing care of this patient today ____ minutes.
[2023-06-28 09:48] LABS: COVID-19 Test Negative (Negative); IDNOW Serial# 08D9AD1C
[2023-06-28 11:17] LABS: Influenza A PCR NEGATIVE (Negative); Influenza B PCR NEGATIVE (Negative); Resp Syncy Virus RNA Qual PCR POSITIVE (Negative); SARS COV2 PCR INHOUSE NEGATIVE (Negative)
[2023-06-28] MEDS: Albuterol Sulfate 90 MCG 8 GM INHALER 2 PUFF INHALE (11:31)
[2023-06-28] MEDS: QUEtiapine Fumarate 50 MG TABLET PO (14:53)
[2023-06-28 15:23] VITALS: PULSE 83; RESP 16; O2SAT 91
[2023-06-28] MEDS: Albuterol/Iprat 2.5/0.5MG 3 ML AMPUL.NEB INHALE (15:23)
[2023-06-28 15:24] VITALS: PULSE 83; RESP 16
[2023-06-28 17:00] VITALS: BP 133/55; PULSE 96; TEMP 37
[2023-06-28] MEDS: Cyclobenzaprine HCl 10 MG TABLET PO (17:05)
[2023-06-28] MEDS: risperiDONE 3 MG TABLET PO (20:35)
[2023-06-28] MEDS: Topiramate 25 MG TABLET 50 MG PO (20:35)
[2023-06-28] MEDS: QUEtiapine Fumarate 400 MG TABLET PO (20:35)
[2023-06-28] MEDS: Mirtazapine 30 MG TABLET PO (20:36)
[2023-06-28] MEDS: Atorvastatin Calcium 40 MG TABLET PO (20:36)
[2023-06-28] MEDS: Ferrous Sulfate 324 MG TABLET.DR PO (20:38)
[2023-06-28] MEDS: Zolpidem Tartrate 5 MG TABLET PO (20:38)
[2023-06-29] MEDS: QUEtiapine Fumarate 50 MG TABLET PO (04:06)
[2023-06-29] MEDS: Omeprazole 20 MG CAPSULE.DR PO (06:16)
[2023-06-29] MEDS: Fluticasone/Vilanterol 200/25 BLST.W.DEV 1 PUFF INHALE (09:06)
[2023-06-29] MEDS: Tiotropium Bromide 2.5 mcg 1 PUFF/2.5 MCG MIST.INHAL 2 PUFF INHALE (09:06)
[2023-06-29] MEDS: risperiDONE 1 MG TABLET PO (09:06)
[2023-06-29] MEDS: QUEtiapine Fumarate 100 MG TABLET PO ×2 (09:07→17:05)
[2023-06-29] MEDS: Ondansetron ODT 4 MG TAB.RAPDIS TRANSLINGU (09:07)
[2023-06-29] MEDS: Buprenorphine/Naloxone 8/2 mg FILM 1 FILM SUBLINGUAL (09:07)
[2023-06-29] MEDS: clonazePAM 0.5 MG TABLET PO ×2 (09:07→20:30)
[2023-06-29] MEDS: VerapamiL HCL SR 120 MG TABLET.ER PO (09:07)
[2023-06-29] MEDS: Venlafaxine HCl ER 150 MG CAP.ER.24H PO (09:07)
[2023-06-29] MEDS: Tamsulosin HCL 0.4 MG CAPSULE 0.8 MG PO (09:07)
[2023-06-29 09:12] VITALS: BP 122/65; PULSE 119; RESP 18; TEMP 37.7; O2SAT 92
--- NOTE | 2023-06-29 14:30 | PM.EVENT ---
Event Note Date of Service: 06/29/23 Event Note: Patient is a 58-year-old Mauritian-speaking male with a PMH significant for HTN, HLD, COPD, migraines, hx of nephrolithiasis, depression, and anxiety who was admitted to Psychiatry on 06/21/2023 for SI secondary to increased auditory hallucinations telling him to harm himself. Medical consult for COPD management after patient tested positive for RSV. Patient complains of shortness of breath and chest pain associated with cough for the past 2 days. Denies fever, chills, nausea, vomiting. Denies chest pressure or palpitations. States breathing treatments helped ?a little?. Patient is currently not hypoxic and was not noted to be coughing during interview or examination. Upon exam, patient is lungs are clear to auscultation, though diminished. RSV in the setting of patient with COPD COPD not in acute exacerbation Patient not hypoxic, no indication for systemic steroids or supplemental oxygen at this time Continue DuoNebs p.r.n. Will add benzonatate for cough Continue home maintenance inhalers Acetaminophen for chest pain Thank you for allowing us to participate in the care of this patient. Signing off at this time. Please re-consult if any acute complaints or issues arise. Time Spent With Patient Time: Total time managing care of this patient today ____ minutes.
[2023-06-29] MEDS: Cyclobenzaprine HCl 10 MG TABLET PO ×2 (15:05→20:30)
--- NOTE | 2023-06-29 17:03 | HO.PSYCHPN ---
Subjective Subjective Date of Service: 06/29/23 Reason For Visit: psychosis/SI Interim History: With patient; discussed with team; interpreter for the deaf present Patient's mood is stable other than being anxious about going home tomorrow with RSV worried that he may have a COPD exacerbation. [employer] Stra[employer] discussed that currently patient is not in a COPD exacerbation, that his O2 sats are baseline however agreed to have hospitalist consult come and assess patient as well as get a chest x-ray. Mental Status Exam Mental Status Exam Narrative: Pt is alert and oriented; behavior is cooperative, friendly and calm; dressed in casual attire; mood is described as anxious and affect congruent; eye contact appropriate; Speech is normal rate, volume and prosody and not pressured; thought process is organized and goal directed; Thought content is on missing his son, mother; tx; otherwise pertinent to relevant topics and without any delusional content, paranoid ideations or grandiosity; denies HI/VH. Pt denies SI/HI; Still with AH but less; Patients insight and judgment are improved and fair. Diagnostics Vital Signs (24Hr): Vital Signs - 24 hr 06/29/23 09:12 Temperature 100 F Pulse Rate 119 H Respiratory Rate 18 Blood Pressure 122/65 Pulse Oximetry 92 Oxygen Delivery Method Room Air BMI result Body Mass Index 20.5 Labs 06/20/23 00:08 06/20/23 00:08 Labs: Laboratory Results - last 48 hr 06/28/23 06/28/23 09:16 10:15 COVID-19 ([facility]) Negative COVID-19 Clin Com See Note Influenza Type A (PCR) NEGATIVE Influenza Type B (PCR) NEGATIVE RSV RNA Qual (PCR) POSITIVE A SARS-CoV-2 RNA (RT-PCR) NEGATIVE Imaging Radiology Impressions: ITS Impressions Chest X-Ray 06/19/23 23:35 IMPRESSION: Unremarkable examination. Medications Medications Current Medications Acetaminophen (Acetaminophen 325 Mg Tablet) 650 mg PO Q6H PRN PRN Reason: Headache/Pain Mild Scale (1-3) Last Admin: 06/23/23 19:04 Dose: 650 mg Al Hydroxide/Mg Hydroxide (Magnesium Hydrox/Alum Hydrox 30 Ml Oral.Susp) 30 ml PO Q6H PRN PRN Reason: Heartburn/Nausea Albuterol Sulfate (Albuterol Sulfate 90 Mcg 8 Gm Inhaler) 2 puff INHALE Q4H PRN PRN Reason: Wheezing Last Admin: 06/28/23 11:31 Dose: 2 puff Albuterol/Ipratropium (Albuterol/Iprat 2.5/0.5mg 3 Ml Ampul.Neb) 3 ml INHALE TID PRN PRN Reason: Wheezing Last Admin: 06/28/23 15:23 Dose: 3 ml Atorvastatin Calcium (Atorvastatin Calcium 40 Mg Tablet) 40 mg PO BEDTIME [facility] Last Admin: 06/28/23 20:36 Dose: 40 mg Buprenorphine/Naloxone (Buprenorphine/Naloxone 8/2 Mg Film) 1 film SUBLINGUAL DAILY [facility] Last Admin: 06/29/23 09:07 Dose: 1 film Clonazepam (Clonazepam 0.5 Mg Tablet) 0.5 mg PO BID PRN PRN Reason: anxiety Last Admin: 06/29/23 09:07 Dose: 0.5 mg Cyclobenzaprine HCl (Cyclobenzaprine Hcl 10 Mg Tablet) 10 mg PO TID PRN PRN Reason: back pain Last Admin: 06/29/23 15:05 Dose: 10 mg Ferrous Sulfate (Ferrous Sulfate 324 Mg Tablet.) 324 mg PO BEDTIME [facility] Last Admin: 06/28/23 20:38 Dose: 324 mg Fluticasone/Vilanterol (Fluticasone/Vilanterol 200/25 Blst.W.Dev) 1 puff INHALE RDAILY [facility] Last Admin: 06/29/23 09:06 Dose: 1 puff Hydroxyzine HCl (Hydroxyzine Hcl 50 Mg Tablet) 50 mg PO BID PRN PRN Reason: itch Last Admin: 06/28/23 03:05 Dose: 50 mg Magnesium Hydroxide (Milk Of Magnesia 30 Ml Oral.Susp) 30 ml PO DAILY PRN PRN Reason: Constipation Mirtazapine (Mirtazapine 30 Mg Tablet) 30 mg PO BEDTIME [facility] Last Admin: 06/28/23 20:36 Dose: 30 mg Nicotine (Nicotine 21 Mg Patch.Td24) 21 mg TRANSDERMA DAILY PRN PRN Reason: smoking cessation Nicotine Polacrilex (Nicotine Polacrilex 2 Mg Gum) 4 mg BUCCAL Q2H PRN PRN Reason: Nicotine Cravings Omeprazole (Omeprazole 20 Mg Capsule.Dr) 20 mg PO DAILY@0630 [facility] Last Admin: 06/29/23 06:16 Dose: 20 mg Ondansetron HCl (Ondansetron Odt 4 Mg Tab.Rapdis) 4 mg TRANSLINGU Q8H PRN PRN Reason: Nausea Last Admin: 06/29/23 09:07 Dose: 4 mg Quetiapine Fumarate (Quetiapine Fumarate 400 Mg Tablet) 400 mg PO BEDTIME [facility] Last Admin: 06/28/23 20:35 Dose: 400 mg Quetiapine Fumarate (Quetiapine Fumarate 100 Mg Tablet) 100 mg PO BID@0900,1800 [facility] Last Admin: 06/29/23 09:07 Dose: 100 mg Quetiapine Fumarate (Quetiapine Fumarate 50 Mg Tablet) 50 mg PO QID PRN PRN Reason: anxiety/restlessness Last Admin: 06/29/23 04:06 Dose: 50 mg Risperidone (Risperidone 3 Mg Tablet) 3 mg PO BEDTIME [facility] Last Admin: 06/28/23 20:35 Dose: 3 mg Risperidone (Risperidone 1 Mg Tablet) 1 mg PO DAILY [facility] Last Admin: 06/29/23 09:06 Dose: 1 mg Tamsulosin HCl (Tamsulosin Hcl 0.4 Mg Capsule) 0.8 mg PO DAILY [facility] Last Admin: 06/29/23 09:07 Dose: 0.8 mg Tiotropium [place] (Tiotropium [place] 2.5 Mcg 1 Puff/2.5 Mcg Mist.Inhal) 2 puff INHALE DAILY [facility] Last Admin: 06/29/23 09:06 Dose: 2 puff Topiramate (Topiramate 25 Mg Tablet) 50 mg PO BEDTIME [facility] Last Admin: 06/28/23 20:35 Dose: 50 mg Trazodone HCl (Trazodone Hcl 50 Mg Tablet) 50 mg PO BEDTIME [facility] PRN PRN Reason: Insomnia Last Admin: 06/28/23 20:35 Dose: 50 mg Venlafaxine HCl (Venlafaxine Hcl Er 150 Mg Cap.Er.24h) 150 mg PO DAILY [facility] Last Admin: 06/29/23 09:07 Dose: 150 mg Verapamil HCl (Verapamil Hcl Sr 120 Mg Tablet.Er) 120 mg PO DAILY [facility]; Protocol Last Admin: 06/29/23 09:07 Dose: 120 mg Zolpidem Tartrate (Zolpidem Tartrate 5 Mg Tablet) 5 mg PO BEDTIME [facility] Last Admin: 06/28/23 20:38 Dose: 5 mg Allergies Allergies Allergy/AdvReac Type Severity Reaction Status Date / Time ibuprofen Allergy Intermediate Stomach Verified 06/20/23 12:08 Upset penicillin V Allergy Intermediate rash Verified 06/20/23 12:08 Assessment & Plan Assessment & Plan (1) Bipolar 2 disorder, major depressive episode: Status: Acute Code(s): F31.81 - Bipolar II disorder (2) Cocaine use disorder: Status: Acute Code(s): F14.10 - Cocaine abuse, uncomplicated (3) Cannabis use disorder, moderate, dependence: Status: Acute Code(s): F12.20 - Cannabis dependence, uncomplicated Plan Patient is a 58 year old male with hx of Bipolar d/o, polysubstance use, with hx of multiple inpatient psychiatric hospitalizations, who was seen by crisis d/t suicidal ideation secondary to increased auditory hallucinations that are telling him to harm himself. 06/22 increased mirtazapine to 30mg 06/23 Patient reports he remains very depressed and that auditory hallucinations are very bothersome; he says they are worse at night. Still feels suicidal and does not want to talk about if he has a plan or not. Because AH is worse at night, he agrees to increasing Risperdal and putting the bulk of it at bedtime rather than split in it over the day. Discussed behavioral activation with which patient agrees 06/26 Pt reports still feeling depressed but that overall his mood is better; he is still anxious but doing better. AH remains but is also less. Pt shared how much he loves his granddaughter and that she is the light of his soul. He laughed and smiled while talking about her; discussed symptoms further and pt reports that when he's with his granddaughter and even for awhile after she leaves he does not have any AH. He further agrees that his AH is likely mood congruent. Discussed medications and he agrees to increasing Effexor for depression. Discussed need for sobriety and he agrees that without consistent sobriety his depression is unlikely to remain improved. Pt w/out any SI and feels ready to discharge planning. -diagnosis more likely MDD with mood congruent AH however too much substance abuse history and patient with vague reporting to rule out history of hypomanic episodes so will leave bipolar 2 diagnosis for now 06/27 stable; continue with current treatment plan 06/28 Patient anxious about discharging given the fact that he has RSV and COPD; asking for updraft more often. Says he is worried that he will end up unable to breathe. Patient's O2 sats remain at baseline and patient afebrile; talking without any troubles. Agrees to see how it goes and decide tomorrow 06/29 Patient's mood is stable other than being anxious about going home tomorrow with RSV worried that he may have a COPD exacerbation. [employer] Stra[employer] discussed that currently patient is not in a COPD exacerbation, that his O2 sats are baseline however agreed to have hospitalist consult come and assess patient as well as get a chest x-ray. -patient is at his psychiatric baseline and though he remains at risk for relapse and mood decompensation, this is a chronic struggle that will not resolve with longer inpatient stay. Patient has a daily VNA. He is not in imminent risk for harm to self or others and appropriate to continue treatment in the community Plan: CV 15 minute safety checks Continue Effexor ER to 150mg Continue mirtazapine to 30mg Continue Risperdal to 3 mg q.h.s. and 1 mg in the morning otherwise Continue home medications Possible referral to substance abuse program? Patient educated on: diagnosis, medication risk/benefits and medical condition Informed Consent: understands Reason for continued inpatient stay Substantial Risk for: stable for discharge Time Spent With Patient Time: Total time managing care of this patient today ____ minutes.
[2023-06-29] MEDS: Albuterol/Iprat 2.5/0.5MG 3 ML AMPUL.NEB INHALE (17:37)
[2023-06-29 17:38] VITALS: PULSE 98; RESP 18; O2SAT 94
[2023-06-29 18:00] VITALS: BP 121/64; PULSE 100; TEMP 36.1; O2SAT 90
[2023-06-29 20:20] VITALS: O2SAT 92
[2023-06-29] MEDS: Mirtazapine 30 MG TABLET PO (20:30)
[2023-06-29] MEDS: QUEtiapine Fumarate 400 MG TABLET PO (20:30)
[2023-06-29] MEDS: Zolpidem Tartrate 5 MG TABLET PO (20:30)
[2023-06-29] MEDS: Atorvastatin Calcium 40 MG TABLET PO (20:31)
[2023-06-29] MEDS: traZODone HCL 50 MG TABLET PO (20:31)
[2023-06-29] MEDS: risperiDONE 3 MG TABLET PO (20:32)
[2023-06-29] MEDS: Ferrous Sulfate 324 MG TABLET.DR PO (20:32)
[2023-06-29] MEDS: Topiramate 25 MG TABLET 50 MG PO (20:39)
[2023-06-30] MEDS: Omeprazole 20 MG CAPSULE.DR PO (06:35)
[2023-06-30] MEDS: Albuterol Sulfate 90 MCG 8 GM INHALER 2 PUFF INHALE (06:39)
[2023-06-30] MEDS: VerapamiL HCL SR 120 MG TABLET.ER PO (09:08)
[2023-06-30] MEDS: Fluticasone/Vilanterol 200/25 BLST.W.DEV 1 PUFF INHALE (09:08)
[2023-06-30] MEDS: Tamsulosin HCL 0.4 MG CAPSULE 0.8 MG PO (09:08)
[2023-06-30] MEDS: Tiotropium Bromide 2.5 mcg 1 PUFF/2.5 MCG MIST.INHAL 2 PUFF INHALE (09:08)
[2023-06-30] MEDS: QUEtiapine Fumarate 100 MG TABLET PO (09:08)
[2023-06-30] MEDS: clonazePAM 0.5 MG TABLET PO (09:09)
[2023-06-30] MEDS: risperiDONE 1 MG TABLET PO (09:09)
[2023-06-30] MEDS: Venlafaxine HCl ER 150 MG CAP.ER.24H PO (09:09)
[2023-06-30 09:10] VITALS: BP 107/62; PULSE 106; RESP 18; TEMP 37.3; O2SAT 90
--- NOTE | 2023-06-30 09:29 | PM.PSYDC ---
DS: Providers Provider Date of Service: 06/30/23 Date of admission: 06/20/23 19:17 Date of discharge: 06/30/23 Primary care physician: Vince Doran MD Attending physician on admission: Jian Chisholm Consults: 06/29/23 10:10 Consult to Hospitalist Routine Comment: Kazakh speaking Consulting Provider: Hospitalist Reason For Exam: got RSV but copd;c/o SOB; assess for DC;panamanian sp Attending physician on discharge: Jian Chisholm DS: Diagnosis Discharge Diagnosis (1) Bipolar 2 disorder, major depressive episode: Status: Acute (2) Cocaine use disorder: Status: Acute (3) Cannabis use disorder, moderate, dependence: Status: Acute DS: Medications Discharge Medications Home Medications: Home Medications Medication Instructions Recorded Confirmed buprenorphine 8 mg-naloxone 2 mg 1 film sublingual DAILY 06/20/23 06/20/23 sublingual film (Suboxone) nicotine 7 mg/24 hr daily 1 patch topical QAM PRN Nicotine 06/20/23 06/20/23 transdermal patch Cravings Previous Rx's Medication Instructions Recorded albuterol sulfate 90 mcg/actuation 2 puff inhalation Q4-6H PRN 06/30/23 aerosol inhaler (Ventolin HFA) Wheezing 30 days #6.7 grams atorvastatin 40 mg tablet 40 mg PO BEDTIME 30 days #30 tabs 06/30/23 benzonatate 100 mg capsule 100 mg PO TID PRN Cough 14 days 06/30/23 #30 caps budesonide-formoterol HFA 160 2 puff inhalation BID 30 days 06/30/23 mcg-4.5 mcg/actuation aerosol #10.2 grams inhaler (Symbicort) clonazepam 0.5 mg tablet 0.5 mg PO BID PRN anxiety 15 days 06/30/23 #30 tabs cyclobenzaprine 10 mg tablet 10 mg PO TID PRN back pain 30 days 06/30/23 #60 tabs ferrous sulfate 325 mg (65 mg 325 mg PO BEDTIME 30 days #30 tabs 06/30/23 iron) tablet (FeroSul) hydroxyzine HCl 50 mg tablet 50 mg PO BID PRN anxiety 30 days 06/30/23 #60 tabs ipratropium 0.5 mg-albuterol 3 mg 3 ml inhalation TID PRN wheezing 12/15/23 (2.5 mg base)/3 mL nebulization 30 days #90 mL soln mirtazapine 30 mg tablet 30 mg PO BEDTIME 30 days #30 tabs 06/30/23 omeprazole 20 mg capsule,delayed 20 mg PO DAILY@0630 30 days #30 06/30/23 release caps ondansetron 4 mg disintegrating 4 mg translingual Q8H PRN Nausea 7 06/30/23 tablet days #7 tabs quetiapine 100 mg tablet 100 mg PO BID@0900,1800 30 days 06/30/23 #30 tabs quetiapine 400 mg tablet 400 mg PO BEDTIME 30 days #30 tabs 06/30/23 quetiapine 50 mg tablet 50 mg PO QID PRN 06/30/23 Anxiety/Restlessness 30 days #60 tabs risperidone 1 mg tablet 1 mg PO DAILY 30 days #30 tabs 06/30/23 risperidone 3 mg tablet 3 mg PO BEDTIME 30 days #30 tabs 06/30/23 tamsulosin 0.4 mg capsule 0.8 mg (2 x 0.4 mg) PO DAILY 30 06/30/23 days #60 caps tiotropium bromide 2.5 2 puff inhalation DAILY 30 days #4 06/30/23 mcg/actuation mist for inhalation grams (Spiriva Respimat) topiramate 50 mg tablet 50 mg PO BEDTIME 30 days #30 tabs 06/30/23 trazodone 50 mg tablet 50 mg PO BEDTIME PRN Insomnia 30 06/30/23 days #30 tabs venlafaxine 150 mg tablet,extended 150 mg PO DAILY 30 days #30 tabs 06/30/23 release 24 hr verapamil 120 mg tablet,extended 120 mg PO DAILY 30 days #30 tabs 06/30/23 release zolpidem 5 mg tablet 5 mg PO BEDTIME PRN insomnia 15 06/30/23 days #15 tabs Mental Status Exam Mental Status Exam Narrative: Pt is alert and oriented; behavior is cooperative, friendly and calm; dressed in casual attire; mood is described as anxious and affect congruent; eye contact appropriate; Speech is normal rate, volume and prosody and not pressured; thought process is organized and goal directed; Thought content is on missing his son, mother; tx; otherwise pertinent to relevant topics and without any delusional content, paranoid ideations or grandiosity; denies HI/VH. Pt denies SI/HI; Still with AH but less; Patients insight and judgment are improved and fair. Data Data Completed and Pending Completed studies during hospitalization [Text1]: 06/26/23 06/28/23 06/28/23 15:24 09:16 10:15 COVID-19 ([facility]) Negative COVID-19 Clin Com See Note Influenza Type A (PCR) NEGATIVE NEGATIVE Influenza Type B (PCR) NEGATIVE NEGATIVE RSV RNA Qual (PCR) NEGATIVE POSITIVE A SARS-CoV-2 RNA (RT-PCR) NEGATIVE NEGATIVE Imaging Diagnostic Imaging Impressions Chest X-Ray 06/19/23 23:35 IMPRESSION: Unremarkable examination. Chest X-Ray 06/29/23 17:04 IMPRESSION: 1. New left perihilar patchy opacity likely infiltrate or atelectasis. 2. New platelike atelectasis left CP angle. 3. Recommend a follow-up chest x-ray in 2-4 weeks. DS: Summary Hospital Course Hospital Course: HPI: Patient is a 58 year old male with hx of Bipolar d/o, polysubstance use, with hx of multiple inpatient psychiatric hospitalizations, who was seen by crisis d/t suicidal ideation secondary to increased auditory hallucinations that are telling him to harm himself. Hospital course: Patient depressed with AH on admission. Home medications restarted. Discussed medication options and he was open to changes. Over the course of the admission, Mirtazapine was increased to 30 mg, Effexor ER increased to 150 mg and Risperdal increased to 4 mg total with the bulk of it at bedtime. 06/23 Patient reports he remains very depressed and that auditory hallucinations are very bothersome; he says they are worse at night. Still feels suicidal and does not want to talk about if he has a plan or not. Because AH is worse at night, he agrees to increasing Risperdal and putting the bulk of it at bedtime rather than split in it over the day. Discussed behavioral activation with which patient agrees 06/26 Pt reports still feeling depressed but that overall his mood is better; he is still anxious but doing better. AH remains but is also less. Pt shared how much he loves his granddaughter and that she is the light of his soul. He laughed and smiled while talking about her; discussed symptoms further and pt reports that when he's with his granddaughter and even for awhile after she leaves he does not have any AH. He further agrees that his AH is likely mood congruent. Discussed medications and he agrees to increasing Effexor for depression. Discussed need for sobriety and he agrees that without consistent sobriety his depression is unlikely to remain improved. Pt w/out any SI and feels ready to discharge planning. -diagnosis more likely MDD with mood congruent AH however too much substance abuse history and patient with vague reporting to rule out history of hypomanic episodes so will leave bipolar 2 diagnosis for now 06/27 stable; continue with current treatment plan 06/28 Patient anxious about discharging given the fact that he has RSV and COPD; asking for updraft more often. Says he is worried that he will end up unable to breathe. Patient's O2 sats remain at baseline and patient afebrile; talking without any troubles. Agrees to see how it goes and decide tomorrow 06/29 Patient's mood is stable other than being anxious about going home tomorrow with RSV worried that he may have a COPD exacerbation. It Support Engineer discussed that currently patient is not in a COPD exacerbation, that his O2 sats are baseline however agreed to have hospitalist consult come and assess patient as well as get a chest x-ray. -patient's mood remained improved, SI and AH resolved; and though he was anxious about discharge, he is at his psychiatric baseline. Love for his children and grandchildren remain a strong protective factor. Patient of course remains at risk for relapse and mood decompensation and will likely continue to struggle with these things for some time; however, this is a chronic struggle that will not resolve with longer inpatient stay and at this time patient did not want any further treatment for substance abuse. Patient is returning to his own apartment where he has a daily VNA. He is not in imminent risk for harm to self or others and appropriate to continue treatment in the community. On the unit patient developed RSV: Prior to discharge patient seen by hospitalist SANTOSH; CXR obtained. It Support Engineer discussed case with hospitalist SANTOSH and Dr. Abarca. Patient cleared for discharge has it was concluded that patient does not need to be medically admitted and can continue recovering at home; he was prophylactically started on azithromycin 500 mg daily for 5 days (having received 1st dose on the unit) and Mucinex 600 mg b.i.d. for 5 days and also on incentive spirometry. Patient instructed on incentive spirometry and to return to the hospital if symptoms worsen. Follow-up chest x-ray ordered for 2 weeks Time spent discussing smoking cessation with patient: 3 to 10 minutes Status at Discharge Functional status at discharge: independent ambulation Overall status at discharge: patient is back to baseline Time Spent with Patient Time attestation: Total time managing care of this patient today ____ minutes. Time spent: Greater than 30 minutes Discharge Plan Discharge Anticipated Discharge Date/Time: 06/30/23 14:00 Patient Disposition: Home, Self-Care Discharge Diagnosis: Bipolar II, most recent depressed in full remission Referrals: Lonny Visiting RN [Other] - 06/30/23 [phone] visiting RN to restart at D/C. The nurse will come Monday evening. ) Kassie Rosales: [facility] ([facility]) [Other] - 07/03/23 11:00 am (Initial diagnostic evaluation for therapy Appointment is in person at [facility] in [place].) Jenaro Farias: [facility] ([facility]) [Other] - 07/07/23 9:00 am (Psychiatric evaluation for medication management Appointment is by tele-health. Provider will call you on your phone for scheduled appointment ) Wilian Casillas: (psychiatry): [facility] [Other] - 1 Week Suboxone Prescriber: Dr. Alexander Jones ([facility]) [Other] - 07/05/23 9:15 am (Est?s programado para kamala grupos todos los mi?rcoles a las 9:15 am; Despu?s del sallie nicolas? al m?dico para bronson prescripci?n. Llame al n?jayla anterior si no puede asistir al sallie y necesita reprogramar bronson hayley.) Vince Doran MD [Primary Care Provider] - 07/18/23 9:30 am (in office) Discharge Medications: New cyclobenzaprine 10 mg Tablet 10 mg PO TID PRN (Reason: back pain) 30 Days Qty: 60 0RF risperidone 1 mg Tablet 1 mg PO DAILY 30 Days Qty: 30 0RF clonazepam 0.5 mg Tablet 0.5 mg PO BID PRN (Reason: anxiety) 15 Days Qty: 30 1RF quetiapine 50 mg Tablet 50 mg PO QID PRN (Reason: Anxiety/Restlessness) 30 Days Qty: 60 0RF trazodone 50 mg Tablet 50 mg PO BEDTIME PRN (Reason: Insomnia) 30 Days Qty: 30 0RF ondansetron 4 mg Tablet,Disintegrating 4 mg translingual Q8H PRN (Reason: Nausea) 7 Days Qty: 7 0RF benzonatate 100 mg Capsule 100 mg PO TID PRN (Reason: Cough) 14 Days Qty: 30 0RF acetaminophen 325 mg Tablet 650 mg PO Q6H PRN (Reason: Headache/Pain Mild Scale (1-3)) Qty: 0 0RF guaifenesin [Mucinex] 600 mg Tablet Extended Release 12hr 600 mg PO BID 5 Days Qty: 10 0RF azithromycin 500 mg Tablet 500 mg PO DAILY 4 Days Qty: 4 0RF Continued verapamil 120 mg Tablet Extended Release 120 mg PO DAILY 30 Days Qty: 30 0RF Protocol: Hold for SBP/HR < HOLD for SBP < : 90 HOLD for HR < : 60 atorvastatin 40 mg Tablet 40 mg PO BEDTIME 30 Days Qty: 30 0RF ipratropium-albuterol 0.5 mg-3 mg(2.5 mg base)/3 mL solution for nebulization 3 ml inhalation TID PRN (Reason: wheezing) 30 Days Qty: 90 0RF hydroxyzine HCl 50 mg tablet 50 mg PO BID PRN (Reason: anxiety) 30 Days Qty: 60 0RF quetiapine 100 mg Tablet 100 mg PO BID@0900,1800 30 Days Qty: 30 0RF tamsulosin 0.4 mg Capsule 0.8 mg PO DAILY 30 Days Qty: 60 0RF ferrous sulfate [FeroSul] 325 mg (65 mg iron) tablet 325 mg PO BEDTIME 30 Days Qty: 30 0RF omeprazole 20 mg Capsule,Delayed Release(Dr/Ec) 20 mg PO DAILY@0630 30 Days Qty: 30 0RF albuterol sulfate [Ventolin HFA] 90 mcg/actuation HFA aerosol inhaler 2 puff INHALATION Q4-6H PRN (Reason: Wheezing) 30 Days Qty: 6.7 0RF topiramate 50 mg tablet 50 mg PO BEDTIME 30 Days Qty: 30 0RF quetiapine 400 mg tablet 400 mg PO BEDTIME 30 Days Qty: 30 0RF budesonide-formoterol [Symbicort] 160-4.5 mcg/actuation HFA aerosol inhaler 2 puff INHALATION BID 30 Days Qty: 10.2 0RF Spiriva Respimat 2.5 mcg/actuation mist 2 puff INHALATION DAILY 30 Days Qty: 4 0RF buprenorphine-naloxone [Suboxone] 8-2 mg film 1 film sublingual DAILY 5 Days Qty: 5 0RF Changed risperidone 3 mg tablet 3 mg PO BEDTIME 30 Days Qty: 30 0RF mirtazapine 30 mg tablet 30 mg PO BEDTIME 30 Days Qty: 30 0RF zolpidem 5 mg Tablet 5 mg PO BEDTIME PRN (Reason: insomnia) 15 Days Qty: 15 1RF venlafaxine 150 mg tablet extended release 24hr 150 mg PO DAILY 30 Days Qty: 30 0RF Discontinued nicotine 7 mg/24 hr patch 24 hour 1 patch topical QAM PRN (Reason: Nicotine Cravings) Discharge Orders: Discharge Order (Routine); Ordered 06/30/23 Ordered By: Jian Chisholm Diet: Regular diet Activity on Discharge: As tolerated Stand Alone Forms: Patient Portal Discharge page, Community Support Other Ambulatory Orders: XR chest 1V (Routine) Timeframe: 2 Weeks Facility: [facility] - Location: Radiology Ordered By: Jian Chisholm Care Plan Goals: Maintain mood and safe behaviors Take medications as prescribed Continue to pursue sobriety Practice coping skills Continue with outpatient providers and reach out to them as needed Health Concerns: Mood stability and behaviors Sobriety RSV: Continue Azithromycin and Mucinex for 5 days; do incentive spirometry 3 times a day for the next 5 days COPD Plan of Treatment: Follow up with your PCP, psychiatric provider and other outpatient providers regarding above concerns Take medications as prescribed Continue Azithromycin and Mucinex for 5 days; do incentive spirometry 3 times a day for the next 5 days Get repeat chest x-ray in one week Assessment: Risk assessment at time of discharge:? Patient was interviewed prior to discharge and found to be fully oriented and without any SI or HI. Patient has improved insight and judgment and wants to continue treatment. Patient is not in imminent risk of harm to self or others and has a safety plan that includes presenting to the closest ER or calling 911 if feeling unsafe.? Patient has been observed closely by nursing and unit staff throughout admission; patient has not engaged in any behaviors that suggest dangerousness to self or others and has demonstrated appropriate behaviors and impulse control
[2023-06-30] MEDS: Albuterol/Iprat 2.5/0.5MG 3 ML AMPUL.NEB INHALE (09:39)
[2023-06-30 09:40] VITALS: PULSE 106; RESP 18; O2SAT 94
[2023-06-30] MEDS: Buprenorphine/Naloxone 8/2 mg FILM 1 FILM SUBLINGUAL (09:55)
[2023-06-30] MEDS: guaiFENesin LA 600 MG TAB.ER.12H PO (11:32)
[2023-06-30] MEDS: Azithromycin 500 MG TABLET PO (11:32)
== END 2023-06-30 14:04 | disposition home or self-care (01) | DRG 753 ==
LOC: HO.ED 06-20 06:52 → HO.PM5 06-20 19:59
PROVIDERS: Emergency Medicine; Admitting Provider Psychiatry & Neurology Psychiatry; Emergency Provider Emergency Medicine Emergency Medical Services; PCP Internal Medicine; Visit Provider Psychiatry & Neurology Psychiatry
DX: F31.81 Bipolar II disorder (principal); R45.851 Suicidal ideations; B97.4 Respiratory syncytial virus as the cause of diseases classified elsewhere; F14.10 Cocaine abuse, uncomplicated; F12.20 Cannabis dependence, uncomplicated; J43.9 Emphysema, unspecified; N40.0 Benign prostatic hyperplasia without lower urinary tract symptoms; Z79.899 Other long term (current) drug therapy
CPT/HCPCS: 0241U; 71045; 80048; 80076; 80307; 83735; 84484; 85025; 87635; 93005; 94640; 99285; S9485

== ENCOUNTER → 2023-06-19 23:23 | Outpatient (BNV) | payer MEDICAID, SELFPAY | PROVIDERS: Emergency Provider Emergency Medicine Emergency Medical Services; PCP Internal Medicine; Visit Provider Internal Medicine | DX: I45.81 Long QT syndrome (principal) | CPT/HCPCS: 93010 ==

== ENCOUNTER → 2023-06-20 19:17 | Outpatient (BNV) | payer OTHER, SELFPAY | PROVIDERS: Admitting Provider Psychiatry & Neurology Psychiatry; Emergency Provider Emergency Medicine Emergency Medical Services; PCP Internal Medicine; Visit Provider Registered Nurse | DX: F31.81 Bipolar II disorder (principal); F14.10 Cocaine abuse, uncomplicated; F12.20 Cannabis dependence, uncomplicated | CPT/HCPCS: 99231; 99232; 99233 ==

== ENCOUNTER 2023-07-05 16:51 | Outpatient (REF) | payer MEDICAID, SELFPAY ==
[2023-07-05 17:19] LABS: Amphetamine Screen Urine Not Detected (Not Detect); Barbiturates, Urine Not Detected (Not Detect); Benzodiazepines Screen Urine Not Detected (Not Detect); Cannabinoid Screen Urine POSITIVE (Not Detect); Cocaine Screen Urine POSITIVE (Not Detect); Fentanyl, urine Not Detected (Not Detect); Opiate Screen Urine Not Detected (Not Detect); Phencyclidine Screen Urine Not Detected (Not Detect)
== END 2023-07-05 16:52 | disposition home or self-care (01) ==
LOC: HO.HHCLNP 16:51
PROVIDERS: Visit Provider Internal Medicine
DX: F11.20 Opioid dependence, uncomplicated (principal); F19.99 Other psychoactive substance use, unspecified with unspecified psychoactive substance-induced disorder
CPT/HCPCS: 80307

== ENCOUNTER 2023-08-08 12:20 | Emergency (ER) | payer MEDICAID, SELFPAY ==
--- NOTE | ~2023-08-08 | CT_ITS ---
EXAMINATION: CT ANGIOGRAM OF THE CHEST WITH AND WITHOUT CONTRAST (CT PULMONARY ANGIOGRAM FOR PE) CLINICAL INFORMATION: Reason for Exam SOB COMPARISON: CT chest 09/03/2022 TECHNIQUE: Prior to contrast administration, noncontrast localization images were obtained. Subsequently, multidetector volumetric imaging was performed from the thoracic inlet to below the diaphragms following the administration of 65 mL Omnipaque 350 intravenous contrast. No contrast reaction reported Sagittal, coronal, and MIP oblique sagittal reformatted images were obtained on the CT workstation, uploaded to PACS, and reviewed. This CT examination was performed using dose optimization techniques as appropriate, variously including the following: *Automated exposure control *Adjustment of mA and/or kV according to patient size (this includes techniques or standardized protocols for targeted exams where dose is matched to indication/reason for exam; i.e. extremities or head) *Use of iterative reconstruction technique Total exam dose-length product 117 mGy-cm FINDINGS: QUALITY OF STUDY/CONTRAST BOLUS: Satisfactory. PULMONARY ARTERIES: No evidence of filling defects to suggest central or segmental pulmonary emboli. . THORACIC AORTA: No aneurysm. LUNG: Redemonstrated is evidence of centrilobular emphysema. The previously seen 4 mm nodule right middle lobe is not clearly identified in today's study. Stable 2 mm right apical pulmonary nodule, 11:74, stable. Mild bibasilar atelectasis. No dense consolidation. No new suspicious nodules identified.. PLEURA: No pleural effusion or pneumothorax. MEDIASTINUM: Normal heart size. No pericardial effusion. Small mediastinal lymph nodes. No pathologically enlarged lymph nodes are identified.. No evidence of septal bowing or right heart strain. Redemonstrated is prominent soft tissue in the anterior mediastinum, with nodularity mixed with fat. This appears unchanged as compared to the prior CT. This could represent thymic hyperplasia. CORONARY ARTERY CALCIFICATION: Mild CHEST WALL/AXILLA: Subcentimeter right axillary lymph nodes. OSSEOUS STRUCTURES: No acute or suspicious osseous abnormality. UPPER ABDOMEN: Mild reflux into the IVC may reflect mild increase right heart pressure. 2 cm right renal simple cyst, no follow-up is indicated. . CT/CT angio chest PE protocol IMPRESSION: 1. No evidence of filling defects suggest central or segmental pulmonary emboli. 2. Centrilobular emphysema. Previously seen 4 mm right middle lobe nodule is not clearly visualized in today's study. See recommendations regarding this nodule in the prior CT of 09/03/2022. 3. Stable soft tissue prominence in the anterosuperior mediastinum, question thymic hyperplasia. This is similar from the prior CT of 09/03/2022. 4. Mild contrast reflux into the IVC could reflect mild increased right heart pressure. 4. Additional findings and details as above. VTE: negative
--- NOTE | ~2023-08-08 | XR_ITS ---
EXAMINATION: XR CHEST CLINICAL INFORMATION: Reason for Exam SOB COMPARISON: Chest radiograph 06/29/2023 TECHNIQUE: One view of the chest FINDINGS: Lines and tubes: EKG leads overlie the patient. Clear lungs. No pleural effusion. No pneumothorax. Unchanged cardiomediastinal silhouette. Remote healed right midclavicular fracture deformity. XR/XR chest 1V IMPRESSION: * Clear lungs.
--- NOTE | ~2023-08-08 | CT_ITS ---
EXAMINATION: CT head/brain wo IV con, CT cervical spine wo IV con INDICATION INFORMATION: Reason for Exam fall, head strike COMPARISON: 05/17/2023 CT brain TECHNIQUE: Separate noncontrast CT examinations of the head and cervical spine were performed. Coronal and sagittal images were created for each examination at the technologist workstation. This CT examination was performed using dose optimization techniques as appropriate, variously including the following: *Automated exposure control *Adjustment of mA and/or kV according to patient size (this includes techniques or standardized protocols for targeted exams where dose is matched to indication/reason for exam; i.e. extremities or head) *Use of iterative reconstruction technique DLP: 922 mGy-cm FINDINGS: Head: No acute osseous or soft tissue abnormality. The mastoid air cells and visualized portions of the paranasal sinuses are well aerated. Moderate degenerative changes of the temporomandibular joints with bony remodeling of the mandibular condyles. There is no evidence of acute intracranial hemorrhage or territorial infarction. No abnormal mass effect or midline shift is seen. Hood to white matter differentiation is well preserved. No extra-axial fluid collections are identified. No hydrocephalus. Cervical spine: There is no evidence of acute cervical spine fracture. Vertebral bodies remain normal in height. Loss of the usual cervical spine lordosis. Multilevel loss of disc space height and multilevel facet arthropathy resulting in multilevel moderate neural foraminal narrowing. No pre- or paravertebral soft tissue abnormality is identified. Mild paraseptal emphysema. The thyroid gland is unremarkable. CT/CT cervical spine wo IV con IMPRESSION: 1. No acute intracranial abnormality. 2. No cervical spine fracture or traumatic malalignment. 3. Moderate degenerative changes of the temporomandibular joints with bony remodeling of the mandibular condyles. 4. Loss of the usual cervical spine lordosis which may be due to positioning or muscle spasm. Multilevel loss of disc space height and multilevel facet arthropathy resulting in multilevel moderate neural foraminal narrowing.
[2023-08-08 12:26] VITALS: BP 114/75; BP 115/73; PULSE 80; PULSE 82; RESP 16; O2SAT 100; O2SAT 98; BMI 20.5
--- NOTE | 2023-08-08 12:36 | ECG_ITS ---
Test Reason : NIEVEA Blood Pressure : / mmHG Vent. Rate : 081 BPM Atrial Rate : 081 BPM P-R Int : 156 ms QRS Dur : 108 ms QT Int : 386 ms P-R-T Axes : 077 053 082 degrees QTc Int : 448 ms Normal sinus rhythm Incomplete right bundle branch block Nonspecific T wave abnormality Abnormal ECG When compared with ECG of 19-JUN-2023 23:23, No significant change was found Referred By: Amna Isaacs Electronically Signed By:Edgar Walker
--- NOTE | 2023-08-08 12:37 | ED_ITS ---
HPI - General Adult General Chief complaint: General Medical Stated complaint: CP,SOB 92% RA,LOW BP 88/53,FROM PCP PER EMS Time Seen by Provider: 08/08/23 12:37 Source: patient, EMS and coat checker Mode of arrival: EMS Limitations: language barrier History of Present Illness HPI narrative: Patient is a 58 year old assigned male at with a history of alcohol abuse and cocaine use presenting to the emergency department today with chest pain, head pain, dizziness, nausea, and shortness of breath. Patient states that over the last few days he has felt generally unwell and had a fall 2 days ago hitting his head. Patient denies any loss of consciousness. Patient denies any lightheadedness, abdominal pain, vomiting, fever, chills, blurry vision, double vision, loss of vision, chest pain, difficulty breathing, shortness of breath, back pain, night sweats, pain with urination, increased urinary frequency, increased urinary urgency, blood in his urine or stool, syncope or a near syncopal episode, bowel incontinence, bladder incontinence, bowel retention, bladder retention, or any other complaints at this time. Onset (ago): day(s) Relieving factors: none Exacerbating factors: none Associated symptoms: chest pain Treatments prior to arrival: none Related Data Previous Rx's Medication Instructions Recorded acetaminophen 325 mg tablet 650 mg (2 x 325 mg) PO Q6H PRN 06/30/23 Headache/Pain Mild Scale (1-3) #0 tabs albuterol sulfate 90 mcg/actuation 2 puff inhalation Q4-6H PRN 06/30/23 aerosol inhaler (Ventolin HFA) Wheezing 30 days #6.7 grams atorvastatin 40 mg tablet 40 mg PO BEDTIME 30 days #30 tabs 06/30/23 azithromycin 500 mg tablet 500 mg PO DAILY 4 days #4 tabs 06/30/23 benzonatate 100 mg capsule 100 mg PO TID PRN Cough 14 days 06/30/23 #30 caps budesonide-formoterol HFA 160 2 puff inhalation BID 30 days 06/30/23 mcg-4.5 mcg/actuation aerosol #10.2 grams inhaler (Symbicort) buprenorphine 8 mg-naloxone 2 mg 1 film sublingual DAILY 5 days #5 06/30/23 sublingual film (Suboxone) ea clonazepam 0.5 mg tablet 0.5 mg PO BID PRN anxiety 15 days 06/30/23 #30 tabs cyclobenzaprine 10 mg tablet 10 mg PO TID PRN back pain 30 days 06/30/23 #60 tabs ferrous sulfate 325 mg (65 mg 325 mg PO BEDTIME 30 days #30 tabs 06/30/23 iron) tablet (FeroSul) guaifenesin 600 mg tablet, 600 mg PO BID 5 days #10 tabs 06/30/23 extended release 12 hr (Mucinex) hydroxyzine HCl 50 mg tablet 50 mg PO BID PRN anxiety 30 days 06/30/23 #60 tabs ipratropium 0.5 mg-albuterol 3 mg 3 ml inhalation TID PRN wheezing 06/30/23 (2.5 mg base)/3 mL nebulization 30 days #90 mL soln mirtazapine 30 mg tablet 30 mg PO BEDTIME 30 days #30 tabs 06/30/23 omeprazole 20 mg capsule,delayed 20 mg PO DAILY@0630 30 days #30 06/30/23 release caps ondansetron 4 mg disintegrating 4 mg translingual Q8H PRN Nausea 7 06/30/23 tablet days #7 tabs quetiapine 100 mg tablet 100 mg PO BID@0900,1800 30 days 06/30/23 #30 tabs quetiapine 400 mg tablet 400 mg PO BEDTIME 30 days #30 tabs 06/30/23 quetiapine 50 mg tablet 50 mg PO QID PRN 06/30/23 Anxiety/Restlessness 30 days #60 tabs risperidone 1 mg tablet 1 mg PO DAILY 30 days #30 tabs 06/30/23 risperidone 3 mg tablet 3 mg PO BEDTIME 30 days #30 tabs 06/30/23 tamsulosin 0.4 mg capsule 0.8 mg (2 x 0.4 mg) PO DAILY 30 06/30/23 days #60 caps tiotropium bromide 2.5 2 puff inhalation DAILY 30 days #4 06/30/23 mcg/actuation mist for inhalation grams (Spiriva Respimat) topiramate 50 mg tablet 50 mg PO BEDTIME 30 days #30 tabs 06/30/23 trazodone 50 mg tablet 50 mg PO BEDTIME PRN Insomnia 30 06/30/23 days #30 tabs venlafaxine 150 mg tablet,extended 150 mg PO DAILY 30 days #30 tabs 06/30/23 release 24 hr verapamil 120 mg tablet,extended 120 mg PO DAILY 30 days #30 tabs 06/30/23 release zolpidem 5 mg tablet 5 mg PO BEDTIME PRN insomnia 15 06/30/23 days #15 tabs Allergies Allergy/AdvReac Type Severity Reaction Status Date / Time ibuprofen Allergy Intermediate Stomach Verified 06/20/23 12:08 Upset penicillin V Allergy Intermediate rash Verified 06/20/23 12:08 Review of Systems 2 Constitutional: Constitutional: Reports no additional constitutional complaints, Denies chills, Denies fever(s), Reports headache(s) and Denies night sweats Eyes: Eyes: Reports no additional eye complaints, Reports blurry vision, Denies change in vision, Denies diplopia, Denies eye discharge, Denies loss of vision and Denies eye pain ENT: Reports dizziness and Reports headache(s) Cardiovascular: Cardiovascular: Reports no additional cardiovascular complaints, Reports chest pain, Denies lightheadedness, Denies Loss of Consciousness and Denies dyspnea Respiratory: Respiratory: Reports no additional respiratory complaints and Denies dyspnea Gastrointestinal: Gastrointestinal: Reports no additional gastrointestinal complaints, Denies abdominal pain, Denies melena, Denies hematochezia, Denies change in bowel habits, Denies change in stool character and Reports nausea Genitourinary: Genitourinary: Reports no additional male genitourinary complaints, Denies hematuria, Denies oliguria, Denies difficulty urinating, Denies dysuria, Denies urinary frequency, Denies urinary hesitancy, Denies urinary incontinence and Denies urinary urgency Musculoskeletal: Musculoskeletal: Reports no additional musculoskeletal complaints, Denies numbness and Denies tingling Neurologic: Reports dizziness, Reports headache(s), Denies loss of vision, Denies numbness and Denies tingling Psychiatric: Psychiatric: Reports no additional psychiatric complaints Endocrine: Endocrine: Reports no additional endocrine complaints Hematologic/Lymphatic: Hematologic/Lymphatic: Reports no additional hematologic/lymphatic complaints Allergic/Immunologic: Allergic/Immunologic: Reports no additional allergic/immunologic complaints PMFSH Past Medical History Attestation statement: The following information was validated with the patient. Source: old records reviewed and nursing notes reviewed Medical History Suicidal ideation Polysubstance abuse Chronic back pain BPH (benign prostatic hyperplasia) Nicotine dependence Cannabis use disorder, moderate, dependence Cocaine use disorder Pulmonary nodules Emphysema of lung Anxiety Depression Asthma Surgical History Hx of cholecystectomy Social History Social History Household Members: Unknown / Unable to assess Housing: Unknown / Unable to assess Do you presently have visiting nurse or other home services: Yes (Angeline [phone]) Unable to assess alcohol history related to: Unknown Alcohol intake: current Alcohol intake frequency: a few times a week Alcohol type: beer Patient Tobacco Use Status: Current everyday Tobacco user Tobacco use type: Cigarette Cigarette Packs Per Day: 1 Cigarettes Per Day: 20.0 Years Smoked: many years Smoked in Last 30 Days: Yes e-Cigarette/Vaping Use: Never Used Use of substances other than those prescribed or required for medical reasons: Yes Substance Use Type: Crack/Cocaine and Marijuana Advance Directives: Yes Advance Directives on File: Yes Advance Directives Date on File: 01/18/23 service: No Sexual orientation: Straight/Heterosexual Physical Exam ED Vital Signs: Vital Signs - 24 hr 08/08/23 12:26 08/08/23 14:22 08/08/23 14:40 Temperature 98.7 F Pulse Rate 82 86 79 Respiratory Rate 16 16 16 Blood Pressure 114/75 102/65 Pulse Oximetry 98 95 Oxygen Delivery Method Room Air Room Air BMI result Body Mass Index 20.5 Const General: cooperative, no acute distress, alert and awake Nutritional Appearance: well nourished Orientation/consciousness: patient oriented x3 Limitations: no limitations [facility] Head: Yes normal to inspection and Yes atraumatic Ears: hearing grossly normal bilaterally and external ears normal General nose exam: Normal external nose present, no nasal discharge noted and no epistaxis Face and sinus: Yes normal facial exam, No abrasion and No laceration Mouth: Normal oral and palatal mucosa present, no drooling and no muffled voice Eyes General: appearance normal, both eyes and all related structures Periorbital: periorbital findings normal Eyelids: Yes eyelids normal Conjunctivae: conjunctivae normal Pupils: Equal, round and reactive pupils present EOM: EOMs intact bilaterally Neck Neck: Yes normal visual inspection, Yes full ROM and Yes no lymphadenopathy Chest Chest palpation & inspection: normal inspection of the chest Resp Effort & Inspection: normal respiratory effort and able to speak in complete sentences Auscultation: diminished lung sounds diffuse Cardio Rate: regular rate Rhythm: regular rhythm GI Inspection: Yes normal to inspection Neuro General: patient oriented x3 and moves all extremities Cranial nerves: Yes Equal, round and reactive pupils present Cognition (Neuro): normal cognition Motor exam (neuro): 5/5 motor strength present throughout Sensory Exam: Normal double simultaneous stimulation for sensation Coordination: [id number] test normal Extrem General: Yes normal to inspection, Yes full ROM and Yes capillary refill normal Psych Appearance: grossly normal Mental Status: mental status grossly normal Affect: normal affect Attitude: cooperative Thought process: Normal thought process present Thought content: Normal thought content present Insight: Good insight present (Psych) Medications Administered Generic Name Dose Route Start Last Admin Trade Name Freq PRN Reason Stop Dose Admin Sodium Chloride 1,000 mls @ 999 mls/hr 08/08/23 15:15 08/08/23 15:26 Ns IV 08/08/23 16:15 999 mls/hr .Q1H1M ADRIEN Administration Discontinued Medications Generic Name Dose Route Start Last Admin Trade Name Freq PRN Reason Stop Dose Admin Albuterol/Ipratropium 3 ml 08/08/23 14:18 08/08/23 14:21 Albuterol/Iprat 2.5/0.5mg 3 Ml Ampul.Neb INHALE 08/08/23 14:19 3 ml ONCE ONE Administration Morphine Sulfate 4 mg 08/08/23 12:44 08/08/23 13:33 Morphine Sulfate 4 Mg/Ml Cartridge IVPUSH 08/08/23 12:45 4 mg ONCE ONE Administration Protocol Ondansetron HCl 4 mg 08/08/23 12:44 08/08/23 13:30 Ondansetron Hcl 4 Mg/2 Ml Vial IVPUSH 08/08/23 12:45 4 mg ONCE ONE Administration Medical Decision Making Medical Decision Making MDM Narrative: Patient is a 58 year old assigned male at with a history of COPD, alcohol abuse, and drug abuse presenting to the emergency department today with multiple complaints including chest pain, headache, dizziness, blurry vision, and nausea. Patient's physical exam showed diminished lung sounds throughout. Patient was initially 90% on room air, placed on supplemental oxygen and doing well. Patient's chest XR showed no acute process. Patient's blood work was showed an elevated BUN of 23 but was otherwise unremarkable. Patient's EKG was unremarkable. Patient's CT PE study is pending at this time. Patient to be signed out to evening ELAYNE. I explained my physical exam findings as well as all test results to the patient. I answered all questions asked by the patient. Differential Diagnosis Differential Diagnoses: The differential diagnosis associated with the presentation includes PE COVID-19 Influenza Asthma exacerbation Hypoxia Admission/Observation Consideration of admission/observation: Escalation of care including admission/observation considered Patient's disposition will be determined after CT PE study. Lab Data [facility] Lab Attestation statement: I reviewed the patient's lab results. My interpretation of these results are in the [facility] Rationale portion of this note. 08/08/23 13:21 08/08/23 13:21 Labs: Lab Results 08/08/23 08/08/23 08/08/23 Range/Units 13:13 13:21 13:27 WBC 5.7 (4.8-10.8) X10*3/uL RBC 4.19 L (4.60-5.80) X10*6/uL Hgb 12.0 L (14.0-18.0) g/dl Hct 36.6 L (42.0-52.0) % MCV 87.4 (80.0-98.0) fL MCH 28.6 (27.0-33.0) pg MCHC 32.8 (31.0-36.0) g/dl RDW 13.6 (11.0-16.0) % Plt Count 338 (160-400) X10*3/uL MPV 8.4 L (9.4-12.4) fL Immature Gran % (Auto) 0.2 (0.0-0.4) % Neut % (Auto) 53.1 (45-73) % Lymph % (Auto) 31.8 (20-40) % Bell % (Auto) 6.7 (2-11) % Eos % (Auto) 7.7 H (0-4) % Baso % (Auto) 0.5 (0-2) % Lymph # (Auto) 1.8 (1.2-4.9) X10*3/uL Bell # (Auto) 0.4 (0.1-1.2) X10*3/uL Eos # (Auto) 0.4 (0.0-0.4) X10*3/uL Baso # (Auto) 0.0 (0.0-0.2) X10*3/uL Abs Immat Gran (auto) 0.01 (0.00-0.03) X10*3/uL Absolute Neuts (auto) 3.0 (2.0-8.3) x10*3/uL Absolute Nucleated RBC 0.000 (0.0-0.012) X10*3/uL Nucleated RBC % (auto) 0.0 (0.0-0.2) /100WBC PT 11.1 (11.1-13.3) SEC INR 0.9 (0.9-1.1) APTT 28.3 (26.0-36.4) SEC VBG pH 7.38 (7.32-7.43) VBG pCO2 54 mmHg VBG pO2 39 mmHg VBG HCO3 32 H (22-26) mmol/L VBG O2 Saturation 63.0 % VBG Base Excess 6.0 mmol/L Sodium 140 (135-145) mmol/L Potassium 4.3 (3.3-5.1) mmol/L Chloride 102 (96-108) mmol/L Carbon Dioxide 32 H (22-29) mmol/L Anion Gap 10 L (12-20) BUN 23 H (9-16) mg/dL Creatinine 1.07 (0.5-1.4) mg/dL Estim Creat Clear Calc 56.3 Estimated GFR > 60 Random Glucose 92 (60-115) mg/dL Lactic Acid 0.9 (0.5-2.0) mmol/L Calcium 9.3 (8.4-10.2) mg/dL Magnesium 2.1 (1.6-2.6) mg/dL Total Bilirubin 0.2 (0.0-1.0) mg/dL AST 16 (5-37) U/L ALT 14 (0-40) U/L Alkaline Phosphatase 71 (39-117) U/L Troponin I High Sens < 2.7 (<3.5-35.0) ng/L B-Natriuretic Peptide < 10 (<100) pg/mL Total Protein 6.7 (6.5-8.0) g/dL Albumin 3.6 (3.5-5.0) g/dL COVID-19 (ALENA) Negative (Negative) COVID-19 Clin Com See Note Influenza Type A (RASHAD) Negative (Negative) Influenza Type B (RASHAD) Negative (Negative) Influenza A & B Note See Note Independent Interpretation I performed an independent interpretation of an: EKG, Plain X-Ray and CT Scan Interpretation: My interpretation is in agreement with the radiologist's impression of these imaging studies. - EXAMINATION: CT head/brain wo IV con, CT cervical spine wo IV con INDICATION INFORMATION: Reason for Exam fall, head strike COMPARISON: 05/17/2023 CT brain TECHNIQUE: Separate noncontrast CT examinations of the head and cervical spine were performed. Coronal and sagittal images were created for each examination at the technologist workstation. This CT examination was performed using dose optimization techniques as appropriate, variously including the following: *Automated exposure control *Adjustment of mA and/or kV according to patient size (this includes techniques or standardized protocols for targeted exams where dose is matched to indication/reason for exam; i.e. extremities or head) *Use of iterative reconstruction technique DLP: 922 mGy-cm FINDINGS: Head: No acute osseous or soft tissue abnormality. The mastoid air cells and visualized portions of the paranasal sinuses are well aerated. Moderate degenerative changes of the temporomandibular joints with bony remodeling of the mandibular condyles. There is no evidence of acute intracranial hemorrhage or territorial infarction. No abnormal mass effect or midline shift is seen. Hood to white matter differentiation is well preserved. No extra-axial fluid collections are identified. No hydrocephalus. Cervical spine: There is no evidence of acute cervical spine fracture. Vertebral bodies remain normal in height. Loss of the usual cervical spine lordosis. Multilevel loss of disc space height and multilevel facet arthropathy resulting in multilevel moderate neural foraminal narrowing. No pre- or paravertebral soft tissue abnormality is identified. Mild paraseptal emphysema. The thyroid gland is unremarkable. CT/CT head/brain wo IV con IMPRESSION: 1. No acute intracranial abnormality. 2. No cervical spine fracture or traumatic malalignment. 3. Moderate degenerative changes of the temporomandibular joints with bony remodeling of the mandibular condyles. 4. Loss of the usual cervical spine lordosis which may be due to positioning or muscle spasm. Multilevel loss of disc space height and multilevel facet arthropathy resulting in multilevel moderate neural foraminal narrowing. Dictated By: Lily Flynn MD Signed By: Electronically signed by Lily Flynn MD 08/08/23 1502 - EXAMINATION: XR CHEST CLINICAL INFORMATION: Reason for Exam SOB COMPARISON: Chest radiograph 06/29/2023 TECHNIQUE: One view of the chest FINDINGS: Lines and tubes: EKG leads overlie the patient. Clear lungs. No pleural effusion. No pneumothorax. Unchanged cardiomediastinal silhouette. Remote healed right midclavicular fracture deformity. XR/XR chest 1V IMPRESSION: * Clear lungs. Dictated By: Lily Flynn MD Signed By: Electronically signed by Lily Flynn MD 08/08/23 1406 - Vent. Rate: 081 BPM Atrial Rate: 081 BPM P-R Int: 156 ms QRS Dur: 108 ms QT Int: 386 ms P-R-T Axes: 077 053 082 degrees QTc Int: 448 ms Normal sinus rhythm Incomplete right bundle branch block Nonspecific T wave abnormality Abnormal ECG When compared with ECG of 19-JUN-2023 23:23, No significant change was found DD/ 1253 Radiology Impression Discussion of test interpretation with radiology: I have reviewed the radiologist's reading. Independent Historian Clinical information obtained from an independent historian. History obtained from or confirmed by: EMS (EMS provided additional history and confirmed the history provided by the patient.) Critical Care Time Critical Care Time Critical Care Time: Yes Total Critical Care Time: 45 Attestation: I spent 45 minutes of Critical Care Time with this patient. This does not include time spent on separately reported billable procedures. Discharge Plan Discharge Clinical Impression: COPD (chronic obstructive pulmonary disease) Patient Disposition: Still a Patient Prescriptions: No Action cyclobenzaprine 10 mg Tablet 10 mg PO TID PRN (Reason: back pain) 30 Days Qty: 60 0RF risperidone 1 mg Tablet 1 mg PO DAILY 30 Days Qty: 30 0RF clonazepam 0.5 mg Tablet 0.5 mg PO BID PRN (Reason: anxiety) 15 Days Qty: 30 1RF quetiapine 50 mg Tablet 50 mg PO QID PRN (Reason: Anxiety/Restlessness) 30 Days Qty: 60 0RF trazodone 50 mg Tablet 50 mg PO BEDTIME PRN (Reason: Insomnia) 30 Days Qty: 30 0RF ondansetron 4 mg Tablet,Disintegrating 4 mg translingual Q8H PRN (Reason: Nausea) 7 Days Qty: 7 0RF benzonatate 100 mg Capsule 100 mg PO TID PRN (Reason: Cough) 14 Days Qty: 30 0RF verapamil 120 mg Tablet Extended Release 120 mg PO DAILY 30 Days Qty: 30 0RF Protocol: Hold for SBP/HR < HOLD for SBP < : 90 HOLD for HR < : 60 atorvastatin 40 mg Tablet 40 mg PO BEDTIME 30 Days Qty: 30 0RF ipratropium-albuterol 0.5 mg-3 mg(2.5 mg base)/3 mL solution for nebulization 3 ml inhalation TID PRN (Reason: wheezing) 30 Days Qty: 90 0RF hydroxyzine HCl 50 mg tablet 50 mg PO BID PRN (Reason: anxiety) 30 Days Qty: 60 0RF quetiapine 100 mg Tablet 100 mg PO BID@0900,1800 30 Days Qty: 30 0RF risperidone 3 mg tablet 3 mg PO BEDTIME 30 Days Qty: 30 0RF tamsulosin 0.4 mg Capsule 0.8 mg PO DAILY 30 Days Qty: 60 0RF mirtazapine 30 mg tablet 30 mg PO BEDTIME 30 Days Qty: 30 0RF ferrous sulfate [FeroSul] 325 mg (65 mg iron) tablet 325 mg PO BEDTIME 30 Days Qty: 30 0RF omeprazole 20 mg Capsule,Delayed Release(Dr/Ec) 20 mg PO DAILY@0630 30 Days Qty: 30 0RF zolpidem 5 mg Tablet 5 mg PO BEDTIME PRN (Reason: insomnia) 15 Days Qty: 15 1RF albuterol sulfate [Ventolin HFA] 90 mcg/actuation HFA aerosol inhaler 2 puff INHALATION Q4-6H PRN (Reason: Wheezing) 30 Days Qty: 6.7 0RF topiramate 50 mg tablet 50 mg PO BEDTIME 30 Days Qty: 30 0RF quetiapine 400 mg tablet 400 mg PO BEDTIME 30 Days Qty: 30 0RF budesonide-formoterol [Symbicort] 160-4.5 mcg/actuation HFA aerosol inhaler 2 puff INHALATION BID 30 Days Qty: 10.2 0RF venlafaxine 150 mg tablet extended release 24hr 150 mg PO DAILY 30 Days Qty: 30 0RF Spiriva Respimat 2.5 mcg/actuation mist 2 puff INHALATION DAILY 30 Days Qty: 4 0RF acetaminophen 325 mg Tablet 650 mg PO Q6H PRN (Reason: Headache/Pain Mild Scale (1-3)) Qty: 0 0RF buprenorphine-naloxone [Suboxone] 8-2 mg film 1 film sublingual DAILY 5 Days Qty: 5 0RF guaifenesin [Mucinex] 600 mg Tablet Extended Release 12hr 600 mg PO BID 5 Days Qty: 10 0RF azithromycin 500 mg Tablet 500 mg PO DAILY 4 Days Qty: 4 0RF
[2023-08-08] MEDS: ondansetron HCL 4 MG/2 ML VIAL IVPUSH (13:30)
[2023-08-08 13:31] LABS: MANUAL DIFF FLAG NO
[2023-08-08 13:32] LABS: Basophils Percent Auto 0.5 % (0-2); Eosinophils Absolute Auto 0.4 X10*3/uL (0.0-0.4); Eosinophils Percent Auto 7.7 % (0-4); Hematocrit 36.6 % (42.0-52.0); Imm Gran Abs Auto 0.01 X10*3/uL (0.00-0.03); Imm Gran Pct Auto 0.2 % (0.0-0.4); Lymphocytes Absolute Auto 1.8 X10*3/uL (1.2-4.9); Lymphocytes Percent Auto 31.8 % (20-40); Mean Corpuscular HGB Conc 32.8 g/dl (31.0-36.0); Mean Corpuscular Hemoglobin 28.6 pg (27.0-33.0); Mean Corpuscular Volume 87.4 fL (80.0-98.0); Mean Platelet Volume 8.4 fL (9.4-12.4); Monocytes Absolute Auto 0.4 X10*3/uL (0.1-1.2); Monocytes Percent Auto 6.7 % (2-11); Neutrophils Percent Auto 53.1 % (45-73); Platelet Count 338 X10*3/uL (160-400); Red Blood Count 4.19 X10*6/uL (4.60-5.80); Red Cell Distribution Width 13.6 % (11.0-16.0); White Blood Count 5.7 X10*3/uL (4.8-10.8)
[2023-08-08] MEDS: Morphine Sulfate 4 MG/ML CARTRIDGE IVPUSH ×2 (13:33→20:32)
[2023-08-08 13:41] LABS: VBG HCO3 32 mmol/L (22-26); VBG pCO2 54 mmHg; VBG pH 7.38 (7.32-7.43); VBG pO2 39 mmHg
[2023-08-08 13:41] LABS: Venous Blood Gas Refer to POC result
[2023-08-08 13:45] LABS: Lactic Acid 0.9 mmol/L (0.5-2.0)
[2023-08-08 13:46] LABS: Alanine Aminotransferase 14 U/L (0-40); Albumin Level 3.6 g/dL (3.5-5.0); Alkaline Phosphatase 71 U/L (39-117); Anion Gap 10 (12-20); Aspartate Amino Transferase 16 U/L (5-37); Bilirubin Total 0.2 mg/dL (0.0-1.0); Blood Urea Nitrogen 23 mg/dL (9-16); Calcium 9.3 mg/dL (8.4-10.2); Carbon Dioxide 32 mmol/L (22-29); Chloride 102 mmol/L (96-108); Creatinine Clr Calc Pharmacy 56.3; Estimated Glomerular Filt Rate > 60; Glucose Random 92 mg/dL (60-115); Magnesium 2.1 mg/dL (1.6-2.6); Potassium 4.3 mmol/L (3.3-5.1); Sodium 140 mmol/L (135-145); Total Protein 6.7 g/dL (6.5-8.0)
[2023-08-08 13:50] LABS: INTERNATIONAL NORM RATIO 0.9 (0.9-1.1); Prothrombin Time 11.1 SEC (11.1-13.3)
[2023-08-08 13:51] LABS: COVID-19 Test Negative (Negative); IDNOW Serial# 08D9AD1C; IDNOW Serial# 152EDE1D; Influenza A Negative (Negative); Influenza B2 Negative (Negative)
[2023-08-08 13:52] LABS: B Type Natriuretic Peptide < 10 pg/mL (<100); Partial Thromboplastin Time 28.3 SEC (26.0-36.4)
[2023-08-08 13:56] LABS: Troponin-I High Sensitivity < 2.7 ng/L (<3.5-35.0)
--- NOTE | 2023-08-08 13:59 | PC.NURSE ---
pt sts he fell on monday after getting out of bed due to dizziness. hurt his back and back of head. today pt went to PCP's office, told his DrGavino what had happened, his symptoms, and thought the pt should come to the ED. pt stating 9/10 kidney pain and back of head pain, dizziness, chest pain, blurry vision, and nausea since last night. pt sts he last used cocaine 3 days ago. came in with 20G to LAC placed by EMS with about 100cc of fluid infused. per EMS, pt was hypotensive [employer]. pt changed over to hospital attire, labs drawn, and pt medicated per mar for nausea and pain. call hernández within pt reach, pt resting quietly watching tv, plan of care ongoing.
[2023-08-08] MEDS: Albuterol/Iprat 2.5/0.5MG 3 ML AMPUL.NEB INHALE (14:21)
[2023-08-08 14:22] VITALS: PULSE 86; RESP 16; O2SAT 95
[2023-08-08 14:40] VITALS: BP 102/65; PULSE 79; RESP 16; TEMP 37.1; O2SAT 95
[2023-08-08] MEDS: 0.9 % Sodium Chloride 1,000 ML 999 ML IV (15:26)
[2023-08-08] MEDS: HYDROmorphone HCl 1 MG/ML SYRINGE IVPUSH (16:37)
[2023-08-08] MEDS: methylPREDNISolone Sod Succ 125 MG/2 ML VIAL 60 MG IVPUSH (16:38)
[2023-08-08 16:58] LABS: Appearance Urine Clear; Color Urine Yellow; Glucose Urine UA Negative (Negative); Leukocyte Esterase Urine Trace (Negative); Nitrite Urine Negative (Negative); UMIC TRIGGER UACC YES; Urine Blood Moderate (2+) (Negative); Urine Ketones Trace mg/dL (Negative); Urine Protein Negative (Neg-Trace)
[2023-08-08 17:07] LABS: Bacteria Urine None Seen (None Seen); Calcium Oxalate Crystals Urine Present; Squamous Epithelial Cell Urine 0-2 /HPF (0-2); WBC Urine 0-5 /HPF (0-5)
[2023-08-08 17:09] LABS: Amphetamine Screen Urine Not Detected (Not Detect); Barbiturates, Urine Not Detected (Not Detect); Benzodiazepines Screen Urine Not Detected (Not Detect); Cannabinoid Screen Urine POSITIVE (Not Detect); Cocaine Screen Urine POSITIVE (Not Detect); Fentanyl, urine Not Detected (Not Detect); Opiate Screen Urine POSITIVE (Not Detect); Phencyclidine Screen Urine POSITIVE (Not Detect)
[2023-08-08] MEDS: iohexoL 350 MG/ML 100 ML INFUS..BTL IV (17:10)
[2023-08-08 17:22] VITALS: BP 119/74; PULSE 79; RESP 16; TEMP 36.9; O2SAT 93
[2023-08-08 20:25] VITALS: BP 118/76; PULSE 91; RESP 14; TEMP 36.8; O2SAT 93
== END 2023-08-08 20:39 | disposition home or self-care (01) ==
PROVIDERS: Physician Assistant Medical; Emergency Provider Emergency Medicine Emergency Medical Services; PCP Internal Medicine
DX: J44.9 Chronic obstructive pulmonary disease, unspecified (principal); R06.02 Shortness of breath; Z11.52 Encounter for screening for COVID-19; Z91.81 History of falling; F14.10 Cocaine abuse, uncomplicated; F12.20 Cannabis dependence, uncomplicated; F17.210 Nicotine dependence, cigarettes, uncomplicated; Z79.899 Other long term (current) drug therapy; Z79.02 Long term (current) use of antithrombotics/antiplatelets
CPT/HCPCS: 70450; 71045; 71275; 72125; 80053; 80307; 81001; 82803; 83605; 83735; 83880; 84484; 85025; 85610; 85730; 87040; 87502; 87635; 93005; 94640; 96361; 96374; 96375; 96376; 99284; 99285; J1170; J2270; J2405; J2930; Q9967

== ENCOUNTER → 2023-08-08 12:36 | Outpatient (BNV) | payer MEDICAID, SELFPAY | PROVIDERS: Emergency Provider Emergency Medicine Emergency Medical Services; PCP Internal Medicine; Visit Provider Internal Medicine Cardiovascular Disease | DX: R94.31 Abnormal electrocardiogram [ECG] [EKG] (principal) | CPT/HCPCS: 93010 ==

== ENCOUNTER 2023-08-24 14:19 | Outpatient (REF) | payer MEDICAID, SELFPAY ==
[2023-08-24 16:26] LABS: Alanine Aminotransferase 17 U/L (0-40); Alkaline Phosphatase 73 U/L (39-117); Aspartate Amino Transferase 17 U/L (5-37); Bilirubin Direct 0.1 mg/dL (0.0-0.5); Bilirubin Total 0.3 mg/dL (0.0-1.0)
[2023-08-25 08:14] LABS: Syphilis Screen Nonreactive (Nonreactive)
[2023-08-25 08:25] LABS: Hepatitis A Antibody IgG REACTIVE (Nonreactive); ~Hepatitis A Antibody IgG 5.53 S/CO (0.00-0.99)
[2023-08-25 08:31] LABS: HBS Num1 56.24 mIU/mL (0-7.99); HBc Num1 4.69 S/CO (0.00-0.79); HBsAGNum1 0.44 S/CO (0.00-0.99); HIV AB/AG Nonreactive (Nonreactive); HIV Num 1 0.08 S/CO (0.00-0.99); Hepatitis B Surface Antigen Negative (Negative); ~HepC Num1 9.87 S/CO (0.00-0.79); ~Hepatitis B Surface Antibody REACTIVE (Nonreactive); ~Hepatitis C Antibody Reactive (Nonreactive)
[2023-08-25 09:49] LABS: HBc Num2 4.86 S/CO; HBc Num3 5.02 S/CO; Hepatitis B Core Antibody Reactive (Nonreactive)
[2023-08-27 17:09] LABS: TS Negative Control Passed; TS Panel A 0; TS Panel B 0; TS Positive Control Passed; TSpotTB Negative (Negative)
[2023-08-28 12:48] LABS: HCV Log PCR <1.18 NOT DETECTED Log IU/mL (NOT DETECTED); HepC Viral Load <15 NOT DETECTED IU/mL (NOT DETECTED)
== END 2023-08-24 14:20 | disposition home or self-care (01) ==
LOC: HO.HHCL 14:19
PROVIDERS: Visit Provider Family Medicine
DX: Z11.4 Encounter for screening for human immunodeficiency virus [HIV] (principal); Z11.1 Encounter for screening for respiratory tuberculosis; F11.20 Opioid dependence, uncomplicated
CPT/HCPCS: 36415; 80076; 86481; 86704; 86706; 86708; 86780; 86803; 87340; 87389; 87522

== ENCOUNTER 2023-08-25 14:55 | Outpatient (AMB) | payer MEDICAID, SELFPAY ==
--- NOTE | 2023-08-25 14:56 | A.OFFVIS_ITS ---
Intake Intake Visit Reasons: kidney stones (no showed last appt) Intake Note: New Patient presents today to establish treatment for Kidney Stones Meds- Tamsulosin Allergies to Antibiotic- Penicillin V Blood Thinner- None Patient Symptoms: Patient stated yesterday afternoon, He was experiencing a burning pain during urination, so today he feels the same symptoms. He also stated,a few day ago he was urinating and he dropped a stone in the toilet. Reviewed medication list, however patient does not remember all the names of the medications Professional Fee Coder Required: Yes Professional Fee Coder Name: VAL RUSSO-CMI Accompanied by: Self / Same As Patient Allergies ibuprofen Allergy (Intermediate, Verified 08/25/23 15:43) Stomach Upset penicillin V Allergy (Intermediate, Verified 08/25/23 15:43) rash Medication List - Last Reconciled 08/25/23 by TARA Bernstein- acetaminophen 650 mg (2 x 325 mg) PO Q6H PRN albuterol sulfate 90 mcg/actuation (Ventolin HFA) 2 puffs inhalation Q4-6H PRN 30 days atorvastatin 40 mg PO BEDTIME 30 days benzonatate 100 mg PO TID PRN 14 days budesonide-formoterol 160-4.5 mcg/actuation (Symbicort) 2 puffs inhalation BID 30 days buprenorphine-naloxone 8-2 mg (Suboxone) 1 film sublingual DAILY 5 days clonazepam 0.5 mg PO BID PRN 15 days cyclobenzaprine 10 mg PO TID PRN 30 days ferrous sulfate (FeroSul) 325 mg PO BEDTIME 30 days hydroxyzine HCl 50 mg PO BID PRN 30 days ipratropium-albuterol 0.5 mg-3 mg(2.5 mg base)/3 mL 3 mL inhalation TID PRN 30 days mirtazapine 30 mg PO BEDTIME 30 days omeprazole 20 mg PO DAILY@0630 30 days quetiapine 50 mg PO QID PRN 30 days quetiapine 400 mg PO BEDTIME 30 days quetiapine 100 mg PO BID@0900,1800 30 days risperidone 3 mg PO BEDTIME 30 days risperidone 1 mg PO DAILY 30 days tamsulosin 0.8 mg (2 x 0.4 mg) PO DAILY 30 days tiotropium bromide 2.5 mcg/actuation (Spiriva Respimat) 2 puffs inhalation DAILY 30 days topiramate 50 mg PO BEDTIME 30 days venlafaxine ER 150 mg PO DAILY 30 days verapamil ER 120 mg See Protocol PO DAILY 30 days zolpidem 5 mg PO BEDTIME PRN 15 days HPI HPI Comments History of Present Illness Details Augustin is a 58-year-old Jamaican-speaking male patient of Dr. Mason Avelar. He has a past medical history of suicidal ideation, polysubstance abuse, chronic back pain, nicotine dependence, cannabis use disorder, cocaine use disorder, pulmonary nodules, emphysema, asthma, anxiety, and depression. He presents to the office today for follow-up of his nephrolithiasis. In discussion with the patient today he reports ongoing bilateral flank pain right side greater than left. In review of patient's chart it appears last renal imaging was in February which noted bilateral nonobstructing nephrolithiasis. Two mid pole renal calculi measuring 0.3 and 0.4 mm.Right midpole there is a septated cyst with a thin septation, Bosniak 2 cyst. This cyst measures 2.4 cm. No further follow-up imaging recommended per radiology report. Left kidney there is a mid pole stone measuring 3 mm. In office urinalysis results reviewed with the patient today 3+ microscopic hematuria noted. When asked he does report a longstanding history of nicotine dependence. Discussed at length potential causes of microscopic hematuria. Discussed potential related to nephrolithiasis however patient with a history of nicotine dependence. Therefore discussed further workup with CT urogram, urine cytology, and in of fice cystoscopy. He is agreeable to obtaining imaging he will think about in office cystoscopy at this time. He does report intermittent issues with dysuria as well as urinary frequency. He otherwise denies incontinence, nocturia, hematuria, foul smelling urine, changes to urinary stream, fever, and or chills. He is happy with his current voiding parameters on 0.8mg of Flomax daily. [facility] Medical History Suicidal ideation Polysubstance abuse Chronic back pain BPH (benign prostatic hyperplasia) Nicotine dependence Cannabis use disorder, moderate, dependence Cocaine use disorder Pulmonary nodules Emphysema of lung Anxiety Depression Asthma Surgical History Hx of cholecystectomy Social History Household Members: Unknown / Unable to assess Housing: Unknown / Unable to assess Do you presently have visiting nurse or other home services: Yes (Angeline [phone]) Unable to assess alcohol history related to: Unknown Alcohol intake: current Alcohol intake frequency: a few times a week Alcohol type: beer Patient Tobacco Use Status: Current everyday Tobacco user Tobacco use type: Cigarette Cigarette Packs Per Day: 1 Cigarettes Per Day: 20.0 Years Smoked: many years e-Cigarette/Vaping Use: Never Used Substance Use Type: Crack/Cocaine and Marijuana Advance Directives Date on File: 01/18/23 service: No Sexual orientation: Straight/Heterosexual Review of Systems Eyes Reports no additional complaints ENT Reports no additional complaints Card Reports as per HPI Resp Reports as per HPI GI Reports no additional complaints Reports as per HPI Musc Reports no additional complaints Neuro Reports no additional complaints Psych Reports no additional complaints Endo Reports no additional complaints Alexei/Lymph Reports no additional complaints Aller/Immun Reports no additional complaints Physical Exam Const General: cooperative, comfortable, no acute distress, well developed, alert and awake Orientation/consciousness: patient oriented x3 Limitations: no limitations HEENT Head: Yes normal to inspection, Yes normocephalic and Yes atraumatic Ears: hearing grossly normal bilaterally Eyes General: appearance normal, both eyes and all related structures Neck Neck: Yes normal visual inspection and Yes trachea midline Chest Chest palpation & inspection: normal inspection of the chest Resp Effort & Inspection: normal respiratory effort and able to speak in complete sentences Cardio Rate: regular rate GI Inspection: Yes normal to inspection General: Yes no CVA tenderness Back/Spine/Pelvis Back: no CVA tenderness Skin General skin exam: no rashes or lesions noted Neuro General: patient oriented x3 Extrem General: Yes normal to inspection Psych Appearance: grossly normal and well kempt Mental Status: mental status grossly normal Speech and movement: Normal speech and movement present and Clear speech present Affect: normal affect Attitude: cooperative Thought process: Normal thought process present Thought content: Normal thought content present Insight: Fair insight present (Psych) Judgement: Fair judgement present (Psych) Results AMB Urinalysis, Automated UA Leukoctes 0 Etta/uL Last Edit by Bobbi Shoemaker [facility] on 08/25/23 15 :24 UA Nitrite Negative Last Edit by Bobbi Shoemaker, [facility] on 08/25/23 15: 24 UA Urobilinogen 0.2 mg/dL Last Edit by Bobbi Shoemaker [facility] on 4 15:24 UA Protein 15 mg/dL Last Edit by Bobbi Shoemaker, [facility] on 08/25/23 15:2 4 UA pH 6.5 Last Edit by Bobbi Shoemaker, [facility] on 08/25/23 15:24 UA Blood 200 Raymundo/uL Last Edit by Bobbi Shoemaker [facility] on 08/25/23 15:2 4 UA Specific [place] 1.015 Last Edit by Bobbi Shoemaker [facility] on 15:24 UA Ketone Negative Last Edit by Bobbi Shoemaker [facility] on 08/25/23 15:2 4 UA Bilirubin 0 mg/dL Last Edit by Bobbi Shoemaker [facility] on 08/25/23 15: 24 UA Glucose 0 mg/dL Last Edit by Bobbi Shoemaker [facility] on 08/25/23 15:24 Results Reviewed Results Reviewed: Laboratory Last Values Urine pH (Auto) 6.5 08/25/23 14:57 Specific [place] (Auto) 1.015 08/25/23 14:57 Urine Protein (Auto) 15 mg/dL 08/25/23 14:57 Glucose (UA)(Auto) 0 mg/dL 08/25/23 14:57 Urine Ketones (Auto) Negative 08/25/23 14:57 Urine Blood (Auto) 200 Raymundo/uL 08/25/23 14:57 Urine Nitrite (Auto) Negative 08/25/23 14:57 Urine Bilirubin (Auto) 0 mg/dL 08/25/23 14:57 Urine Urobilinogen (Auto) 0.2 mg/dL 08/25/23 14:57 Leukocyte Esterase (Auto) 0 Etta/uL 08/25/23 14:57 Date of Service: 03/24/23 EXAMINATION: US RETROPERITONEAL LIMITED (RENAL ONLY) FINDINGS: RIGHT KIDNEY: 9.5 x 4.8 x 5 cm (SAG x AP x TRV). The kidney is normal in size, contour, and echogenicity. Kidney does have lobation' s of cortex. Renal cortical thickness is normal. There are renal stones: 1. Mid pole 0.3 cm. 2. Mid pole 0.4 cm. No hydronephrosis. At the midpole there is a septated cyst with a thin septation, Bosniak 2 cyst. This cyst measures 2.4 cm. No further follow-up imaging recommended. LEFT KIDNEY: 10.4 x 5.6 x 4.1 cm (SAG x AP x TRV). The kidney is normal in size, contour, and echogenicity. Renal cortical thickness is normal. Kidney does have lobation' s of cortex. There is a stone at the midpole measuring 0.3 cm. No hydronephrosis. On CAT scan February 26, 2023 there are numerous stones present in both kidneys. Most of the stones are not apparent on this ultrasound. IMPRESSION: Bilateral renal stones. No hydronephrosis. Assessment & Plan Assessment & Plan (1) Nicotine dependence: Code(s): F17.200 - Nicotine dependence, unspecified, uncomplicated (2) Microscopic hematuria: Code(s): R31.29 - Other microscopic hematuria (3) Nephrolithiasis: Code(s): N20.0 - Calculus of kidney Plan In office urinalysis results reviewed with the patient today; as noted above; will send for urine cytology. Will obtain CT urogram for further assessment evaluation. Continue Flomax as prescribed. Discussed, educated, and stressed the importance of drinking plenty of water daily. Discussed adding 1 oz of lemon juice to water daily. Discussed at length further workup of microscopic hematuria with CT, cytology, and in office cystoscopy; patient would like to think about cystoscopy at this time. Discussed and educated on the importance of limiting recreational drugs as well as nicotine dependence for overall health and well-being. Follow-up in 1-2 months with imaging to be completed prior; or sooner with any issues, concerns, and or questions. Orders: Orders Urine Cytology Today N39.0 - Urinary tract infection, site not specified CT urogram Today F17.200 - Nicotine dependence, unspecified, uncomplicated, N20.0 - Calculus of kidney, R31.29 - Other microscopic hematuria AMB Urinalysis Automated Today R33.9 - Retention of urine, unspecified US renal BI Today N20.0 - Calculus of kidney Medications: Discontinued ondansetron Discontinued Reason: Patient Completed Course 4 mg translingual Q8H 7 days PRN 7 tabs 0RF Nausea azithromycin Discontinued Reason: Patient Completed Course 500 mg PO DAILY 4 days 4 tabs 0RF Patient Instructions: The patient had an opportunity to ask questions regarding the treatment plan. All questions were answered. Physical exam, labs, and imaging were discussed and reviewed in detail. As well as risks, benefits, and discussion of treatment choices. No major barriers to understanding were identified. The patient expressed understanding and agreement with the above treatment plan. The patient was made aware they should contact our office by phone for worsening of their current condition, the appearance of new symptoms, or with any questions or concerns. Compliance is encouraged with any medications and follow up testing that is ordered. It is a privilege to be allowed the opportunity to participate in? your urological care.? Again, if you have any questions or concerns If you have any questions or concerns please do not hesitate to contact me. The office is [phone]. This note is constructed using voice recognition software. While every effort has been made to ensure accuracy fish worm grower errors may have been included. Yours sincerely, STEPHANY Bernstein Coding Level of Care Code Est Pt Level 3 (26335) Diagnoses Nicotine dependence F17.200 Microscopic hematuria R31.29 Nephrolithiasis N20.0
== END 2023-08-25 15:35 | disposition home or self-care (01) ==
PROVIDERS: PCP Internal Medicine; Visit Provider Nurse Practitioner Family
DX: F17.200 Nicotine dependence, unspecified, uncomplicated (principal); R31.29 Other microscopic hematuria; N20.0 Calculus of kidney; R33.9 Retention of urine, unspecified
CPT/HCPCS: 99213

== ENCOUNTER 2023-08-25 14:55 | Outpatient (REF) | payer MEDICAID, SELFPAY ==
[2023-08-25 15:45] LABS: Urine Cytology See Pathology rpt
== END 2023-08-25 14:56 | disposition home or self-care (01) ==
LOC: HO.LAB 14:55
PROVIDERS: PCP Internal Medicine; Visit Provider Nurse Practitioner Family
DX: N39.0 Urinary tract infection, site not specified (principal)
CPT/HCPCS: 81003; 88112; 99212

== ENCOUNTER 2023-09-26 14:07 | Outpatient (REF) | payer MEDICAID, SELFPAY ==
--- NOTE | ~2023-09-26 | US_ITS ---
EXAMINATION: US RETROPERITONEAL LIMITED (RENAL ONLY) CLINICAL INFORMATION: Renal calculus. COMPARISON: Renal ultrasound 03/24/2023. CT abdomen and pelvis 02/26/2023. Ultrasound abdomen Limited 06/26/2022. TECHNIQUE: Real-time imaging of the kidneys. FINDINGS: RIGHT KIDNEY: 10.0 x 4.5 x 4.2 cm (SAG x AP x TRV). The kidney is normal in size, contour, and echogenicity. Renal cortical thickness is normal. No hydronephrosis. Thinly septated Bosniak 2 cyst in the mid kidney is decreased in size measuring 1.9 cm compared to 2.4 cm. No follow-up imaging is recommended. 5 mm calculus in the upper pole. 3 mm calculus in the mid kidney. LEFT KIDNEY: 10.5 x 4.9 x 3.8 cm (SAG x AP x TRV). The kidney is normal in size, contour, and echogenicity. Renal cortical thickness is normal. No focal parenchymal lesions or hydronephrosis. 5 mm calculus in the mid kidney. US/US renal BI IMPRESSION: Bilateral nonobstructing renal calculi. No hydronephrosis.
== END 2023-09-26 14:08 | disposition home or self-care (01) ==
LOC: HO.US 14:07
PROVIDERS: PCP Internal Medicine; Visit Provider Nurse Practitioner Family
DX: N20.0 Calculus of kidney (principal)
CPT/HCPCS: 76775

== ENCOUNTER 2023-09-27 09:28 | Emergency (ER) | payer MEDICAID, SELFPAY ==
--- NOTE | ~2023-09-27 | CT_ITS ---
EXAMINATION: CT HEAD WITHOUT CONTRAST CT CERVICAL SPINE WITHOUT CONTRAST CLINICAL INFORMATION: Fall. Pain. COMPARISON: CT head and cervical spine 08/08/2023. TECHNIQUE: Biofuels Technology Development Manager images were obtained. CT imaging of the head and cervical spine was performed without contrast. Data was reformatted into multiplanar images at the acquisition workstation. This CT examination was performed using dose optimization techniques as appropriate, including one or more of the following: Automated exposure control, iterative reconstruction, and adjustment of technique factors (mA and/or kVp) according to patient size (this includes techniques or standardized protocols for targeted exams where dose is matched to indication/reason for exam). Fleischner Society criteria for the followup of incidental pulmonary nodules was implemented if appropriate. DLP: 871 mGy-cm. FINDINGS: Head: There is no acute intracranial hemorrhage or abnormal extra-axial collection. No intracranial mass effect or midline shift. Lateral and third ventricles are proportionate to the subarachnoid spaces. No hydrocephalus. Scattered nonspecific foci of hypoattenuation visualized within the periventricular white matter. Hood-white matter differentiation is otherwise preserved and there is no evidence of acute territorial infarct. The calvarium and skull base are intact. Mastoid air cells and middle ear cavities are well aerated. Partial opacification of the sphenoid sinus. Cervical spine: There is slight anterolisthesis of C4 on C5 related to facet degenerative changes at this level. Alignment is otherwise normal. Vertebral body heights are preserved. No acute cervical spine fracture. No abnormal prevertebral soft tissue swelling. C is not well assessed on this examination due to inherent limitations of CT without intrathecal contrast. Grossly no canal compromise. Uncovertebral joint spurring in conjunction with facet degenerative change causes moderate bilateral neuroforaminal encroachment at C6-C7 and moderate right neuroforaminal encroachment at C5-C6. Lung apices are clear. CT/CT head/brain wo IV con IMPRESSION: Head: No acute intracranial hemorrhage. There are scattered chronic small vessel ischemic changes within the periventricular white matter. Grossly no evidence of acute territorial infarct. Cervical Spine: No evidence of acute fracture and no posttraumatic spinal subluxation. There is multilevel degenerative spondylosis of the cervical spine as described above. Grossly no evidence of canal compromise. Uncovertebral joint spurring in conjunction with facet degenerative change causes moderate bilateral neuroforaminal encroachment at C6-C7 and moderate right neuroforaminal encroachment at C5-C6.
--- NOTE | ~2023-09-27 | XR_ITS ---
EXAMINATION: XR ANKLE, RIGHT CLINICAL INFORMATION: Right ankle injury. Pain COMPARISON: None available. TECHNIQUE: AP, lateral, and mortise views of the right ankle. FINDINGS: No fracture. Alignment is anatomic. No erosions. Joint spaces are maintained. Soft tissues are normal. XR/XR ankle RT min 3V IMPRESSION: Unremarkable right ankle exam.
--- NOTE | ~2023-09-27 | CT_ITS ---
EXAMINATION: CT HEAD WITHOUT CONTRAST CT CERVICAL SPINE WITHOUT CONTRAST CLINICAL INFORMATION: Fall. Pain. COMPARISON: CT head and cervical spine 08/08/2023. TECHNIQUE: [employer] images were obtained. CT imaging of the head and cervical spine was performed without contrast. Data was reformatted into multiplanar images at the acquisition workstation. This CT examination was performed using dose optimization techniques as appropriate, including one or more of the following: Automated exposure control, iterative reconstruction, and adjustment of technique factors (mA and/or kVp) according to patient size (this includes techniques or standardized protocols for targeted exams where dose is matched to indication/reason for exam). Fleischner Society criteria for the followup of incidental pulmonary nodules was implemented if appropriate. DLP: 871 mGy-cm. FINDINGS: Head: There is no acute intracranial hemorrhage or abnormal extra-axial collection. No intracranial mass effect or midline shift. Lateral and third ventricles are proportionate to the subarachnoid spaces. No hydrocephalus. Scattered nonspecific foci of hypoattenuation visualized within the periventricular white matter. Hood-white matter differentiation is otherwise preserved and there is no evidence of acute territorial infarct. The calvarium and skull base are intact. Mastoid air cells and middle ear cavities are well aerated. Partial opacification of the sphenoid sinus. Cervical spine: There is slight anterolisthesis of C4 on C5 related to facet degenerative changes at this level. Alignment is otherwise normal. Vertebral body heights are preserved. No acute cervical spine fracture. No abnormal prevertebral soft tissue swelling. C is not well assessed on this examination due to inherent limitations of CT without intrathecal contrast. Grossly no canal compromise. Uncovertebral joint spurring in conjunction with facet degenerative change causes moderate bilateral neuroforaminal encroachment at C6-C7 and moderate right neuroforaminal encroachment at C5-C6. Lung apices are clear. CT/CT cervical spine wo IV con IMPRESSION: Head: No acute intracranial hemorrhage. There are scattered chronic small vessel ischemic changes within the periventricular white matter. Grossly no evidence of acute territorial infarct. Cervical Spine: No evidence of acute fracture and no posttraumatic spinal subluxation. There is multilevel degenerative spondylosis of the cervical spine as described above. Grossly no evidence of canal compromise. Uncovertebral joint spurring in conjunction with facet degenerative change causes moderate bilateral neuroforaminal encroachment at C6-C7 and moderate right neuroforaminal encroachment at C5-C6.
--- NOTE | 2023-09-27 09:32 | ECG_ITS ---
Test Reason : DIZZY Blood Pressure : / mmHG Vent. Rate : 089 BPM Atrial Rate : 089 BPM P-R Int : 154 ms QRS Dur : 098 ms QT Int : 386 ms P-R-T Axes : 082 052 074 degrees QTc Int : 469 ms Normal sinus rhythm Incomplete right bundle branch block Borderline ECG When compared with ECG of 08-AUG-2023 12:53, No significant change was found Referred By: Amna Isaacs Electronically Signed By:AKASH SUAREZ MD
--- NOTE | 2023-09-27 09:32 | ED_ITS ---
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 Patient states that he was dizzy while in the shower, slipped, and fell. Patient states that his right ankle hurts. Patient denies any current dizziness, lightheadedness, abdominal pain, nausea, vomiting, fever, chills, blurry vision, double vision, loss of vision, chest pain, difficulty breathing, shortness of breath, back pain, night sweats, pain with urination, increased urinary frequency, increased urinary urgency, blood in his urine or stool, syncope or a near syncopal episode, bowel incontinence, bladder incontinence, bowel retention, bladder retention, or any other complaints at this time. Onset (ago): hour(s) Location: right and lower extremity Severity: mild Severity scale (1-10): 3 Quality: aching and dull Pain Consistency: constant Relieving factors: none Exacerbating factors: none Associated symptoms: denies other symptoms Treatments prior to arrival: none Related Data Previous Rx's Medication Instructions Recorded acetaminophen 325 mg tablet 650 mg (2 x 325 mg) PO Q6H PRN 06/30/23 Headache/Pain Mild Scale (1-3) #0 tabs albuterol sulfate 90 mcg/actuation 2 puff inhalation Q4-6H PRN 06/30/23 aerosol inhaler (Ventolin HFA) Wheezing 30 days #6.7 grams atorvastatin 40 mg tablet 40 mg PO BEDTIME 30 days #30 tabs 06/30/23 benzonatate 100 mg capsule 100 mg PO TID PRN Cough 14 days 06/30/23 #30 caps budesonide-formoterol HFA 160 2 puff inhalation BID 30 days 06/30/23 mcg-4.5 mcg/actuation aerosol #10.2 grams inhaler (Symbicort) buprenorphine 8 mg-naloxone 2 mg 1 film sublingual DAILY 5 days #5 06/30/23 sublingual film (Suboxone) ea clonazepam 0.5 mg tablet 0.5 mg PO BID PRN anxiety 15 days 06/30/23 #30 tabs cyclobenzaprine 10 mg tablet 10 mg PO TID PRN back pain 30 days 06/30/23 #60 tabs ferrous sulfate 325 mg (65 mg 325 mg PO BEDTIME 30 days #30 tabs 06/30/23 iron) tablet (FeroSul) hydroxyzine HCl 50 mg tablet 50 mg PO BID PRN anxiety 30 days 06/30/23 #60 tabs ipratropium 0.5 mg-albuterol 3 mg 3 ml inhalation TID PRN wheezing 06/30/23 (2.5 mg base)/3 mL nebulization 30 days #90 mL soln mirtazapine 30 mg tablet 30 mg PO BEDTIME 30 days #30 tabs 06/30/23 omeprazole 20 mg capsule,delayed 20 mg PO DAILY@0630 30 days #30 06/30/23 release caps quetiapine 100 mg tablet 100 mg PO BID@0900,1800 30 days 06/30/23 #30 tabs quetiapine 400 mg tablet 400 mg PO BEDTIME 30 days #30 tabs 06/30/23 quetiapine 50 mg tablet 50 mg PO QID PRN 06/30/23 Anxiety/Restlessness 30 days #60 tabs risperidone 1 mg tablet 1 mg PO DAILY 30 days #30 tabs 06/30/23 risperidone 3 mg tablet 3 mg PO BEDTIME 30 days #30 tabs 06/30/23 tamsulosin 0.4 mg capsule 0.8 mg (2 x 0.4 mg) PO DAILY 30 06/30/23 days #60 caps tiotropium bromide 2.5 2 puff inhalation DAILY 30 days #4 06/30/23 mcg/actuation mist for inhalation grams (Spiriva Respimat) topiramate 50 mg tablet 50 mg PO BEDTIME 30 days #30 tabs 06/30/23 venlafaxine 150 mg tablet,extended 150 mg PO DAILY 30 days #30 tabs 06/30/23 release 24 hr verapamil 120 mg tablet,extended 120 mg PO DAILY 30 days #30 tabs 06/30/23 release zolpidem 5 mg tablet 5 mg PO BEDTIME PRN insomnia 15 06/30/23 days #15 tabs Allergies Allergy/AdvReac Type Severity Reaction Status Date / Time ibuprofen Allergy Intermediate Stomach Verified 08/25/23 15:43 Upset penicillin V Allergy Intermediate rash Verified 08/25/23 15:43 Review of Systems 2 Constitutional: Constitutional: Reports no additional constitutional complaints, Denies chills, Denies fever(s) and Denies night sweats Eyes: Eyes: Reports no additional eye complaints, Denies blurry vision, Denies change in vision, Denies diplopia, Denies eye discharge, Denies loss of vision and Denies eye pain ENT: Reports dizziness (now resolved) Cardiovascular: Cardiovascular: Reports no additional cardiovascular complaints, Denies chest pain, Denies lightheadedness, Denies Loss of Consciousness and Denies dyspnea Respiratory: Respiratory: Reports no additional respiratory complaints and Denies dyspnea Gastrointestinal: Gastrointestinal: Reports no additional gastrointestinal complaints, Denies abdominal pain, Denies melena, Denies hematochezia, Denies change in bowel habits and Denies change in stool character Genitourinary: Genitourinary: Reports no additional male genitourinary complaints, Denies hematuria, Denies oliguria, Denies difficulty urinating, Denies dysuria, Denies urinary frequency, Denies urinary hesitancy, Denies urinary incontinence and Denies urinary urgency Musculoskeletal: Musculoskeletal: Reports no additional musculoskeletal complaints, Denies numbness and Denies tingling Comments: right ankle pain Neurologic: Reports dizziness (now resolved), Denies loss of vision, Denies numbness and Denies tingling Psychiatric: Psychiatric: Reports no additional psychiatric complaints Endocrine: Endocrine: Reports no additional endocrine complaints Hematologic/Lymphatic: Hematologic/Lymphatic: Reports no additional hematologic/lymphatic complaints Allergic/Immunologic: Allergic/Immunologic: Reports no additional allergic/immunologic complaints PMFSH Past Medical History Attestation statement: The following information was validated with the patient. Source: old records reviewed and nursing notes reviewed Medical History Suicidal ideation Polysubstance abuse Chronic back pain BPH (benign prostatic hyperplasia) Nicotine dependence Cannabis use disorder, moderate, dependence Cocaine use disorder Pulmonary nodules Emphysema of lung Anxiety Depression Asthma Surgical History Hx of cholecystectomy Social History Social History Household Members: Unknown / Unable to assess Housing: Unknown / Unable to assess Do you presently have visiting nurse or other home services: Yes (Angeline [phone]) Unable to assess alcohol history related to: Unknown Alcohol intake: current Alcohol intake frequency: a few times a week Alcohol type: beer Patient Tobacco Use Status: Current everyday Tobacco user Tobacco use type: Cigarette Cigarette Packs Per Day: 1 Cigarettes Per Day: 20.0 Years Smoked: many years e-Cigarette/Vaping Use: Never Used Substance Use Type: Crack/Cocaine and Marijuana Advance Directives: Yes Advance Directives on File: Yes Advance Directives Date on File: 01/18/23 service: No Sexual orientation: Straight/Heterosexual Physical Exam ED Vital Signs: Vital Signs - 24 hr 09/27/23 09:55 09/27/23 11:29 09/27/23 11:29 Pulse Rate 84 78 86 Respiratory Rate 18 Blood Pressure 122/77 138/86 140/79 H Pulse Oximetry 94 09/27/23 11:30 Pulse Rate 85 Respiratory Rate Blood Pressure 122/78 Pulse Oximetry BMI result Body Mass Index 23.4 Const General: cooperative, no acute distress, alert and awake Nutritional Appearance: well nourished Orientation/consciousness: patient oriented x3 Limitations: no limitations HENMT Head: Yes normal to inspection and Yes atraumatic Ears: hearing grossly normal bilaterally and external ears normal General nose exam: Normal external nose present, no nasal discharge noted and no epistaxis Face and sinus: Yes normal facial exam, No abrasion and No laceration Mouth: Normal oral and palatal mucosa present, no drooling and no muffled voice Eyes General: appearance normal, both eyes and all related structures Periorbital: periorbital findings normal Eyelids: Yes eyelids normal Conjunctivae: conjunctivae normal Pupils: Equal, round and reactive pupils present EOM: EOMs intact bilaterally Neck Neck: Yes normal visual inspection, Yes full ROM and Yes no lymphadenopathy Chest Chest palpation & inspection: normal inspection of the chest Resp Effort & Inspection: normal respiratory effort and able to speak in complete sentences GI Inspection: Yes normal to inspection Neuro General: patient oriented x3 and moves all extremities Cranial nerves: Yes Equal, round and reactive pupils present Cognition (Neuro): normal cognition Motor exam (neuro): 5/5 motor strength present throughout Sensory Exam: Normal double simultaneous stimulation for sensation Coordination: ocbyeg-ec-[id number] test normal Extrem General: Yes normal to inspection, Yes full ROM and Yes capillary refill normal Psych Appearance: grossly normal Mental Status: mental status grossly normal Affect: normal affect Attitude: cooperative Thought process: Normal thought process present Thought content: Normal thought content present Insight: Good insight present (Psych) Medications Administered Discontinued Medications Generic Name Dose Route Start Last Admin Trade Name Alvarado PRN Reason Stop Dose Admin Sodium Chloride 1,000 mls @ 999 mls/hr 09/27/23 09:45 09/27/23 11:36 Ns IV 09/27/23 10:45 Infused .Q1H1M ADRIEN Infusion Medical Decision Making Medical Decision Making [facility] Narrative: Patient is a 58 year old assigned male at with a history of alcohol abuse and COPD presenting to the emergency department today with right ankle pain after a slip and fall. Patient's physical exam was unremarkable. Patient's blood work was unremarkable. Patient's EKG was unremarkable. Patient's right ankle x- ray showed no acute process. Patient's head and c-spine CTs showed no acute process. I explained my physical exam findings as well as all test results to the patient. I answered all questions asked by the patient. I stressed the importance of the patient taking his medication as prescribed. I stressed the importance of the patient following up with his primary care provider. I stressed the importance of the patient returning to the emergency department immediately if his symptoms were to worsen or if he were to develop any dizziness, shortness of breath, difficulty breathing, chest pain, blurry vision, loss of vision, nausea, vomiting, abdominal pain, fever, chills, back pain, or any other complaints. Patient verbalized agreement and understanding with this treatment plan and discharge. Differential Diagnosis Differential Diagnoses: The differential diagnosis associated with the presentation includes Right ankle pain Fall Intoxication Admission/Observation Consideration of admission/observation: Escalation of care including admission/observation considered Patient would have been admitted to the hospital had his work up had any findings where hospital admission was appropriate and his clinical presentation warranted hospital admission. Lab Data [facility] Lab Attestation statement: I reviewed the patient's lab results. My interpretation of these results are in the [facility] Rationale portion of this note. 09/27/23 10:03 09/27/23 10:03 Labs: Lab Results 09/27/23 Range/Units 10:03 WBC 6.0 (4.8-10.8) X10*3/uL RBC 3.67 L (4.60-5.80) X10*6/uL Hgb 10.5 L (14.0-18.0) g/dl Hct 31.7 L (42.0-52.0) % MCV 86.4 (80.0-98.0) fL MCH 28.6 (27.0-33.0) pg MCHC 33.1 (31.0-36.0) g/dl RDW 15.1 (11.0-16.0) % Plt Count 386 (160-400) X10*3/uL MPV 8.8 L (9.4-12.4) fL Immature Gran % (Auto) 0.2 (0.0-0.4) % Neut % (Auto) 54.1 (45-73) % Lymph % (Auto) 27.4 (20-40) % Gregg % (Auto) 8.9 (2-11) % Eos % (Auto) 8.7 H (0-4) % Baso % (Auto) 0.7 (0-2) % Lymph # (Auto) 1.6 (1.2-4.9) X10*3/uL Gregg # (Auto) 0.5 (0.1-1.2) X10*3/uL Eos # (Auto) 0.5 H (0.0-0.4) X10*3/uL Baso # (Auto) 0.0 (0.0-0.2) X10*3/uL Abs Immat Gran (auto) 0.01 (0.00-0.03) X10*3/uL Absolute Neuts (auto) 3.2 (2.0-8.3) x10*3/uL Absolute Nucleated RBC 0.000 (0.0-0.012) X10*3/uL Nucleated RBC % (auto) 0.0 (0.0-0.2) /100WBC PT 11.5 (11.1-13.3) SEC INR 0.9 (0.9-1.1) APTT 29.2 (26.0-36.8) SEC Sodium 140 (135-145) mmol/L Potassium 3.8 (3.3-5.1) mmol/L Chloride 104 (96-108) mmol/L Carbon Dioxide 29 (22-29) mmol/L Anion Gap 11 L (12-20) BUN 20 H (9-16) mg/dL Creatinine 1.03 (0.5-1.4) mg/dL Estim Creat Clear Calc 68.8 Estimated GFR > 60 Random Glucose 106 (60-115) mg/dL Calcium 9.0 (8.4-10.2) mg/dL Magnesium 2.1 (1.6-2.6) mg/dL Total Bilirubin 0.2 (0.0-1.0) mg/dL AST 22 (5-37) U/L ALT 18 (0-40) U/L Alkaline Phosphatase 84 (39-117) U/L Troponin I High Sens < 2.7 (<3.5-35.0) ng/L Total Protein 6.4 L (6.5-8.0) g/dL Albumin 3.5 (3.5-5.0) g/dL Influenza Type A (PCR) NEGATIVE (Negative) Influenza Type B (PCR) NEGATIVE (Negative) RSV RNA Qual (PCR) NEGATIVE (Negative) SARS-CoV-2 RNA (RT-PCR) NEGATIVE (Negative) Independent Interpretation I performed an independent interpretation of an: EKG, Plain X-Ray and CT Scan Interpretation: My interpretation is in agreement with the radiologist's impression of these imaging studies. - EXAMINATION: XR ANKLE, RIGHT CLINICAL INFORMATION: Right ankle injury. Pain COMPARISON: None available. TECHNIQUE: AP, lateral, and mortise views of the right ankle. FINDINGS: No fracture. Alignment is anatomic. No erosions. Joint spaces are maintained. Soft tissues are normal. XR/XR ankle RT min 3V IMPRESSION: Unremarkable right ankle exam. Dictated By: Pierce Flores MD Signed By: Electronically signed by Pierce Flores MD 09/27/23 1111 - EXAMINATION: CT HEAD WITHOUT CONTRAST CT CERVICAL SPINE WITHOUT CONTRAST CLINICAL INFORMATION: Fall. Pain. COMPARISON: CT head and cervical spine 08/08/2023. 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 CT imaging of the head and cervical spine was performed without contrast. Data was reformatted into multiplanar images at the acquisition workstation. This CT examination was performed using dose optimization techniques as appropriate, including one or more of the following: Automated exposure control, iterative reconstruction, and adjustment of technique factors (mA and/or kVp) according to patient size (this includes techniques or standardized protocols for targeted exams where dose is matched to indication/reason for exam). Fleischner Society criteria for the followup of incidental pulmonary nodules was implemented if appropriate. DLP: 871 mGy-cm. FINDINGS: Head: There is no acute intracranial hemorrhage or abnormal extra-axial collection. No intracranial mass effect or midline shift. Lateral and third ventricles are proportionate to the subarachnoid spaces. No hydrocephalus. Scattered nonspecific foci of hypoattenuation visualized within the periventricular white matter. Hood-white matter differentiation is otherwise preserved and there is no evidence of acute territorial infarct. The calvarium and skull base are intact. Mastoid air cells and middle ear cavities are well aerated. Partial opacification of the sphenoid sinus. Cervical spine: There is slight anterolisthesis of C4 on C5 related to facet degenerative changes at this level. Alignment is otherwise normal. Vertebral body heights are preserved. No acute cervical spine fracture. No abnormal prevertebral soft tissue swelling. C is not well assessed on this examination due to inherent limitations of CT without intrathecal contrast. Grossly no canal compromise. Uncovertebral joint spurring in conjunction with facet degenerative change causes moderate bilateral neuroforaminal encroachment at C6-C7 and moderate right neuroforaminal encroachment at C5-C6. Lung apices are clear. CT/CT head/brain wo IV con IMPRESSION: Head: No acute intracranial hemorrhage. There are scattered chronic small vessel ischemic changes within the periventricular white matter. Grossly no evidence of acute territorial infarct. Cervical Spine: No evidence of acute fracture and no posttraumatic spinal subluxation. There is multilevel degenerative spondylosis of the cervical spine as described above. Grossly no evidence of canal compromise. Uncovertebral joint spurring in conjunction with facet degenerative change causes moderate bilateral neuroforaminal encroachment at C6-C7 and moderate right neuroforaminal encroachment at C5-C6. Dictated By: Hemant Bettencourt MD Signed By: Electronically signed by Hemant Bettencourt MD 09/27/23 1110 - Vent. Rate: 089 BPM Atrial Rate: 089 BPM P-R Int: 154 ms QRS Dur: 098 ms QT Int: 386 ms P-R-T Axes: 082 052 074 degrees QTc Int: 469 ms Normal sinus rhythm Incomplete right bundle branch block Borderline ECG When compared with ECG of 08-AUG-2023 12:53, No significant change was found DD/ [id number] Radiology Impression Discussion of test interpretation with radiology: I have reviewed the radiologist's reading. Independent Historian Clinical information obtained from an independent historian. History obtained from or confirmed by: EMS (EMS provided additional history and confirmed the history provided by the patient.) Discharge Plan Discharge Clinical Impression: Dizziness, Ankle sprain Patient Disposition: Home, Self-Care Instructions: Ankle Sprain (DC), Dizziness (ED) Additional Instructions: Follow up with your primary care provider. Return to the emergency department immediately if your symptoms worsen or if you develop any dizziness, shortness of breath, difficulty breathing, chest pain, blurry vision, loss of vision, nausea, vomiting, abdominal pain, fever, chills, back pain, or any other complaints. Imelda un seguimiento con bronson proveedor de atenci?n primaria. Regrese al departamento de emergencias inmediatamente si kamala s?ntomas empeoran o si presenta mareos, dificultad para respirar, dificultad para respirar, dolor en el pecho, visi?n borrosa, p?rdida de la visi?n, n?useas, v?mitos, dolor abdominal, fiebre, escalofr?os, dolor de espalda o cualquier otras quejas. Prescriptions: No Action cyclobenzaprine 10 mg Tablet 10 mg PO TID PRN (Reason: back pain) 30 Days Qty: 60 0RF risperidone 1 mg Tablet 1 mg PO DAILY 30 Days Qty: 30 0RF clonazepam 0.5 mg Tablet 0.5 mg PO BID PRN (Reason: anxiety) 15 Days Qty: 30 1RF quetiapine 50 mg Tablet 50 mg PO QID PRN (Reason: Anxiety/Restlessness) 30 Days Qty: 60 0RF benzonatate 100 mg Capsule 100 mg PO TID PRN (Reason: Cough) 14 Days Qty: 30 0RF verapamil 120 mg Tablet Extended Release 120 mg PO DAILY 30 Days Qty: 30 0RF Protocol: Hold for SBP/HR < HOLD for SBP < : 90 HOLD for HR < : 60 atorvastatin 40 mg Tablet 40 mg PO BEDTIME 30 Days Qty: 30 0RF ipratropium-albuterol 0.5 mg-3 mg(2.5 mg base)/3 mL solution for nebulization 3 ml inhalation TID PRN (Reason: wheezing) 30 Days Qty: 90 0RF hydroxyzine HCl 50 mg tablet 50 mg PO BID PRN (Reason: anxiety) 30 Days Qty: 60 0RF quetiapine 100 mg Tablet 100 mg PO BID@0900,1800 30 Days Qty: 30 0RF risperidone 3 mg tablet 3 mg PO BEDTIME 30 Days Qty: 30 0RF tamsulosin 0.4 mg Capsule 0.8 mg PO DAILY 30 Days Qty: 60 0RF mirtazapine 30 mg tablet 30 mg PO BEDTIME 30 Days Qty: 30 0RF ferrous sulfate [FeroSul] 325 mg (65 mg iron) tablet 325 mg PO BEDTIME 30 Days Qty: 30 0RF omeprazole 20 mg Capsule,Delayed Release(Dr/Ec) 20 mg PO DAILY@0630 30 Days Qty: 30 0RF zolpidem 5 mg Tablet 5 mg PO BEDTIME PRN (Reason: insomnia) 15 Days Qty: 15 1RF albuterol sulfate [Ventolin HFA] 90 mcg/actuation HFA aerosol inhaler 2 puff INHALATION Q4-6H PRN (Reason: Wheezing) 30 Days Qty: 6.7 0RF topiramate 50 mg tablet 50 mg PO BEDTIME 30 Days Qty: 30 0RF quetiapine 400 mg tablet 400 mg PO BEDTIME 30 Days Qty: 30 0RF budesonide-formoterol [Symbicort] 160-4.5 mcg/actuation HFA aerosol inhaler 2 puff INHALATION BID 30 Days Qty: 10.2 0RF venlafaxine 150 mg tablet extended release 24hr 150 mg PO DAILY 30 Days Qty: 30 0RF Spiriva Respimat 2.5 mcg/actuation mist 2 puff INHALATION DAILY 30 Days Qty: 4 0RF acetaminophen 325 mg Tablet 650 mg PO Q6H PRN (Reason: Headache/Pain Mild Scale (1-3)) Qty: 0 0RF buprenorphine-naloxone [Suboxone] 8-2 mg film 1 film sublingual DAILY 5 Days Qty: 5 0RF Referrals: Vince Doran MD [Primary Care Provider] - Print Language: Greek
[2023-09-27 09:55] VITALS: BP 110/80; BP 122/77; PULSE 84; PULSE 97; RESP 18; O2SAT 94; BMI 23.4
[2023-09-27 10:12] LABS: MANUAL DIFF FLAG NO
[2023-09-27 10:16] LABS: Basophils Percent Auto 0.7 % (0-2); Eosinophils Absolute Auto 0.5 X10*3/uL (0.0-0.4); Eosinophils Percent Auto 8.7 % (0-4); Hematocrit 31.7 % (42.0-52.0); Hemoglobin 10.5 g/dl (14.0-18.0); Imm Gran Abs Auto 0.01 X10*3/uL (0.00-0.03); Imm Gran Pct Auto 0.2 % (0.0-0.4); Lymphocytes Absolute Auto 1.6 X10*3/uL (1.2-4.9); Lymphocytes Percent Auto 27.4 % (20-40); Mean Corpuscular HGB Conc 33.1 g/dl (31.0-36.0); Mean Corpuscular Hemoglobin 28.6 pg (27.0-33.0); Mean Corpuscular Volume 86.4 fL (80.0-98.0); Mean Platelet Volume 8.8 fL (9.4-12.4); Monocytes Absolute Auto 0.5 X10*3/uL (0.1-1.2); Monocytes Percent Auto 8.9 % (2-11); Neutrophils Absolute Auto 3.2 x10*3/uL (2.0-8.3); Neutrophils Percent Auto 54.1 % (45-73); Platelet Count 386 X10*3/uL (160-400); Red Blood Count 3.67 X10*6/uL (4.60-5.80); Red Cell Distribution Width 15.1 % (11.0-16.0)
[2023-09-27] MEDS: 0.9 % Sodium Chloride 1,000 ML 999 ML IV (10:16)
[2023-09-27 10:24] LABS: INTERNATIONAL NORM RATIO 0.9 (0.9-1.1); Prothrombin Time 11.5 SEC (11.1-13.3)
[2023-09-27 10:27] LABS: Partial Thromboplastin Time 29.2 SEC (26.0-36.8)
[2023-09-27 10:34] LABS: Alanine Aminotransferase 18 U/L (0-40); Albumin Level 3.5 g/dL (3.5-5.0); Alkaline Phosphatase 84 U/L (39-117); Anion Gap 11 (12-20); Aspartate Amino Transferase 22 U/L (5-37); Bilirubin Total 0.2 mg/dL (0.0-1.0); Blood Urea Nitrogen 20 mg/dL (9-16); Carbon Dioxide 29 mmol/L (22-29); Chloride 104 mmol/L (96-108); Creatinine Clr Calc Pharmacy 68.8; Estimated Glomerular Filt Rate > 60; Glucose Random 106 mg/dL (60-115); Magnesium 2.1 mg/dL (1.6-2.6); Potassium 3.8 mmol/L (3.3-5.1); Sodium 140 mmol/L (135-145); Total Protein 6.4 g/dL (6.5-8.0)
[2023-09-27 10:45] LABS: Troponin-I High Sensitivity < 2.7 ng/L (<3.5-35.0)
[2023-09-27 11:06] LABS: Influenza A PCR NEGATIVE (Negative); Influenza B PCR NEGATIVE (Negative); Resp Syncy Virus RNA Qual PCR NEGATIVE (Negative); SARS COV2 PCR INHOUSE NEGATIVE (Negative)
[2023-09-27 11:29] VITALS: BP 138/86; BP 140/79; PULSE 78; PULSE 86
[2023-09-27 11:30] VITALS: BP 122/78; PULSE 85
--- NOTE | 2023-09-27 12:24 | PC.NURSE ---
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 Patient aware he will wait in waiting room and watch for shuttle
== END 2023-09-27 12:25 | disposition home or self-care (01) ==
PROVIDERS: Physician Assistant Medical; Emergency Provider Emergency Medicine Emergency Medical Services; PCP Internal Medicine
DX: S99.911A Unspecified injury of right ankle, initial encounter (principal); R42 Dizziness and giddiness; M25.571 Pain in right ankle and joints of right foot; R51.9 Headache, unspecified; M54.2 Cervicalgia; F17.210 Nicotine dependence, cigarettes, uncomplicated; W18.2XXA Fall in (into) shower or empty bathtub, initial encounter; Y92.002 Bathroom of unspecified non-institutional (private) residence as the place of occurrence of the external cause; Y99.8 Other external cause status; Z11.52 Encounter for screening for COVID-19; Z20.822 Contact with and (suspected) exposure to COVID-19; Z79.899 Other long term (current) drug therapy
CPT/HCPCS: 0241U; 70450; 72125; 73610; 80053; 83735; 84484; 85025; 85610; 85730; 93005; 96360; 99284

== ENCOUNTER → 2023-09-27 09:32 | Outpatient (BNV) | payer MEDICAID, SELFPAY | PROVIDERS: Emergency Provider Emergency Medicine Emergency Medical Services; PCP Internal Medicine; Visit Provider Internal Medicine Cardiovascular Disease | DX: R42 Dizziness and giddiness (principal) | CPT/HCPCS: 93010 ==

== ENCOUNTER 2023-09-29 18:57 | Emergency (ER) | payer MEDICAID, SELFPAY ==
--- NOTE | ~2023-09-29 | CT_ITS ---
EXAMINATION: CT HEAD WITHOUT CONTRAST CLINICAL INFORMATION: Altered mental status COMPARISON: Previous head CT September 27, 2023 TECHNIQUE: Contiguous axial imaging was performed from the skull base to vertex without intravenous administration of contrast. This CT examination was performed using dose optimization techniques as appropriate, variously including the following: *Automated exposure control *Adjustment of mA and/or kV according to patient size (this includes techniques or standardized protocols for targeted exams where dose is matched to indication/reason for exam; i.e. extremities or head) *Use of iterative reconstruction technique DLP: 572 mGy-cm FINDINGS: There is no evidence for an extra-axial collection. There is no evidence for intra-or extra-axial hemorrhage. The ventricles and extra-axial CSF spaces are appropriate. Hood-white matter differentiation is normal. No mass, mass effect or infarct is seen. Review of bone windows is normal. No skull fracture. Mild inflammatory changes in the sphenoid sinus. CT/CT head/brain wo IV con IMPRESSION: No acute intracranial pathology.
--- NOTE | ~2023-09-29 | XR_ITS ---
EXAMINATION: XR CHEST CLINICAL INFORMATION: Fever and chest pain COMPARISON: Previous chest x-ray and chest CT July 2023 TECHNIQUE: Frontal view of the chest was obtained. FINDINGS: The cardiac and mediastinal contours are stable. The lungs are well-inflated. There is a new nodular opacity at the right lung base measuring 1 x 1.5 cm. Compare with previous chest CT this may correspond to bronchial wall thickening and bronchial soft tissue opacification. This appears new or increased from prior chest x-ray. The left lung is clear. No pleural effusion or pneumothorax. Old right clavicle fracture. XR/XR chest 1V IMPRESSION: New 1 x 1.5 cm nodular opacity at the right lung base, question representing bronchial wall thickening or bronchial soft tissue opacification. Follow-up chest x-ray following treatment recommended. If radiographic abnormality fails to resolve, chest CT scan would be recommended.
--- NOTE | 2023-09-29 19:14 | ECG_ITS ---
Test Reason : CHEST PAIN Blood Pressure : / mmHG Vent. Rate : 096 BPM Atrial Rate : 096 BPM P-R Int : 150 ms QRS Dur : 094 ms QT Int : 370 ms P-R-T Axes : 076 -08 092 degrees QTc Int : 467 ms Normal sinus rhythm Incomplete right bundle branch block Nonspecific T wave abnormality Abnormal ECG When compared with ECG of 27-SEP-2023 09:46, Questionable change in QRS axis Referred By: Generic ED Physician Electronically Signed By:AKASH SUAREZ MD
[2023-09-29 19:16] VITALS: BP 111/75; BP 118/77; PULSE 105; PULSE 97; RESP 13; TEMP 36.9; O2SAT 90; O2SAT 94; BMI 20.6
[2023-09-29 19:38] LABS: MANUAL DIFF FLAG NO
[2023-09-29 19:40] LABS: Basophils Absolute Auto 0.1 X10*3/uL (0.0-0.2); Eosinophils Absolute Auto 0.8 X10*3/uL (0.0-0.4); Hemoglobin 11.4 g/dl (14.0-18.0); Imm Gran Abs Auto 0.01 X10*3/uL (0.00-0.03); Imm Gran Pct Auto 0.2 % (0.0-0.4); Lymphocytes Percent Auto 37.9 % (20-40); Mean Corpuscular HGB Conc 33.5 g/dl (31.0-36.0); Mean Corpuscular Hemoglobin 29.5 pg (27.0-33.0); Mean Corpuscular Volume 88.1 fL (80.0-98.0); Monocytes Absolute Auto 0.3 X10*3/uL (0.1-1.2); Monocytes Percent Auto 6.2 % (2-11); Neutrophils Absolute Auto 2.1 x10*3/uL (2.0-8.3); Neutrophils Percent Auto 39.7 % (45-73); Platelet Count 371 X10*3/uL (160-400); Red Blood Count 3.86 X10*6/uL (4.60-5.80); Red Cell Distribution Width 15.2 % (11.0-16.0); White Blood Count 5.2 X10*3/uL (4.8-10.8)
--- NOTE | 2023-09-29 19:40 | PC.NURSE ---
Pt alert and only able to verify first and last name. Came in by EMS after [facility] reported AMS. On arrival pt is unsure why he is here but states he is having difficulty breathing with chest pain, weakness, and headache, 03/26. Hx of COPD. On arrival pt o2 sat 88-90%. Pt placed on 2L NC. Current o2 sat 93%. Productive cough present. Pt reports current use of cocaine via nose yesterday. None today. 20G IV line placed L FA. EKG done, labs drawn and sent. Pending physician evaluation.
[2023-09-29 19:53] LABS: Alanine Aminotransferase 15 U/L (0-40); Albumin Level 3.7 g/dL (3.5-5.0); Alkaline Phosphatase 93 U/L (39-117); Anion Gap 12 (12-20); Aspartate Amino Transferase 18 U/L (5-37); Bilirubin Total 0.3 mg/dL (0.0-1.0); Blood Urea Nitrogen 12 mg/dL (9-16); Calcium 9.4 mg/dL (8.4-10.2); Carbon Dioxide 29 mmol/L (22-29); Chloride 106 mmol/L (96-108); Creatinine Clr Calc Pharmacy 62.3; Estimated Glomerular Filt Rate > 60; Glucose Random 80 mg/dL (60-115); Potassium 3.9 mmol/L (3.3-5.1); Sodium 143 mmol/L (135-145); Total Protein 6.8 g/dL (6.5-8.0)
[2023-09-29 19:56] LABS: COVID-19 Test Negative (Negative); IDNOW Serial# 08D9AD1C
[2023-09-29 19:56] LABS: IDNOW Serial# 152EDE1D; Influenza A Negative (Negative); Influenza B2 Negative (Negative)
[2023-09-29 20:04] LABS: Troponin-I High Sensitivity < 2.7 ng/L (<3.5-35.0)
--- NOTE | 2023-09-29 20:24 | ED.GENADULT ---
HPI - General Adult General Chief complaint: Altered Mental Status Stated complaint: RN states pt is below baseline,unaware of year etc Time Seen by Provider: 09/29/23 19:52 History of Present Illness HPI narrative: The patient is a 58-year-old male who lives in a studio apartment by himself in [place]. He says he has not been feeling well for 2 days. He believes he had a fever last night although he did not take his temperature. He describes having sweats and chills. Today he felt very weak. He also had a sense of pain in his arms and in his chest. He has had some nausea but no vomiting. He has been coughing. The patient normally is on 2 L of oxygen at home. The patient was here in the emergency room 2 days ago for evaluation of a fall. He had a negative workup and was discharged. The patient has a nurse who sees him twice a day. Her name is Geneva and she works for the [employer]. She felt that the patient seemed more confused than usual today. Related Data Previous Rx's Medication Instructions Recorded acetaminophen 325 mg tablet 650 mg (2 x 325 mg) PO Q6H PRN 06/30/23 Headache/Pain Mild Scale (1-3) #0 tabs albuterol sulfate 90 mcg/actuation 2 puff inhalation Q4-6H PRN 06/30/23 aerosol inhaler (Ventolin HFA) Wheezing 30 days #6.7 grams atorvastatin 40 mg tablet 40 mg PO BEDTIME 30 days #30 tabs 06/30/23 benzonatate 100 mg capsule 100 mg PO TID PRN Cough 14 days 06/30/23 #30 caps budesonide-formoterol HFA 160 2 puff inhalation BID 30 days 06/30/23 mcg-4.5 mcg/actuation aerosol #10.2 grams inhaler (Symbicort) buprenorphine 8 mg-naloxone 2 mg 1 film sublingual DAILY 5 days #5 06/30/23 sublingual film (Suboxone) ea clonazepam 0.5 mg tablet 0.5 mg PO BID PRN anxiety 15 days 06/30/23 #30 tabs cyclobenzaprine 10 mg tablet 10 mg PO TID PRN back pain 30 days 06/30/23 #60 tabs ferrous sulfate 325 mg (65 mg 325 mg PO BEDTIME 30 days #30 tabs 06/30/23 iron) tablet (FeroSul) hydroxyzine HCl 50 mg tablet 50 mg PO BID PRN anxiety 30 days 06/30/23 #60 tabs ipratropium 0.5 mg-albuterol 3 mg 3 ml inhalation TID PRN wheezing 06/30/23 (2.5 mg base)/3 mL nebulization 30 days #90 mL soln mirtazapine 30 mg tablet 30 mg PO BEDTIME 30 days #30 tabs 06/30/23 omeprazole 20 mg capsule,delayed 20 mg PO DAILY@0630 30 days #30 06/30/23 release caps quetiapine 100 mg tablet 100 mg PO BID@0900,1800 30 days 06/30/23 #30 tabs quetiapine 400 mg tablet 400 mg PO BEDTIME 30 days #30 tabs 06/30/23 quetiapine 50 mg tablet 50 mg PO QID PRN 06/30/23 Anxiety/Restlessness 30 days #60 tabs risperidone 1 mg tablet 1 mg PO DAILY 30 days #30 tabs 06/30/23 risperidone 3 mg tablet 3 mg PO BEDTIME 30 days #30 tabs 06/30/23 tamsulosin 0.4 mg capsule 0.8 mg (2 x 0.4 mg) PO DAILY 30 06/30/23 days #60 caps tiotropium bromide 2.5 2 puff inhalation DAILY 30 days #4 06/30/23 mcg/actuation mist for inhalation grams (Spiriva Respimat) topiramate 50 mg tablet 50 mg PO BEDTIME 30 days #30 tabs 06/30/23 venlafaxine 150 mg tablet,extended 150 mg PO DAILY 30 days #30 tabs 06/30/23 release 24 hr verapamil 120 mg tablet,extended 120 mg PO DAILY 30 days #30 tabs 06/30/23 release zolpidem 5 mg tablet 5 mg PO BEDTIME PRN insomnia 15 06/30/23 days #15 tabs Allergies Allergy/AdvReac Type Severity Reaction Status Date / Time ibuprofen Allergy Intermediate Stomach Verified 08/25/23 15:43 Upset penicillin V Allergy Intermediate rash Verified 08/25/23 15:43 Review of Systems Review of Systems: Yes all other systems are reviewed and are negative PMFSH Past Medical History Medical History Suicidal ideation Polysubstance abuse Chronic back pain BPH (benign prostatic hyperplasia) Nicotine dependence Cannabis use disorder, moderate, dependence Cocaine use disorder Pulmonary nodules Emphysema of lung Anxiety Depression Asthma Surgical History Hx of cholecystectomy Social History Social History Household Members: Unknown / Unable to assess Housing: Unknown / Unable to assess Do you presently have visiting nurse or other home services: Yes (Angeline [phone]) Unable to assess alcohol history related to: Unknown Alcohol intake: current Alcohol intake frequency: does not drink Alcohol type: beer Patient Tobacco Use Status: Current everyday Tobacco user Tobacco use type: Cigarette Cigarette Packs Per Day: 1 Cigarettes Per Day: 20.0 Years Smoked: many years Smoked in Last 30 Days: Yes e-Cigarette/Vaping Use: Never Used Use of substances other than those prescribed or required for medical reasons: Yes Substance Use Type: Crack/Cocaine Substance Use Frequency: Chronic Longstanding Last Used Substance: Days (ago) Advance Directives: Yes Advance Directives on File: Yes Advance Directives Date on File: 01/18/23 service: No Sexual orientation: Straight/Heterosexual Physical Exam ED Vital Signs: Vital Signs - 24 hr 09/29/23 19:16 09/29/23 20:33 09/29/23 21:52 Temperature 98.4 F Pulse Rate 97 89 89 Respiratory Rate 13 19 19 Blood Pressure 118/77 Pulse Oximetry 90 L Oxygen Delivery Method Room Air Oxygen Flow Rate 09/29/23 22:20 09/29/23 22:39 Temperature 98.0 F Pulse Rate 77 78 Respiratory Rate 13 12 Blood Pressure 144/81 H 145/94 H Pulse Oximetry 94 93 Oxygen Delivery Method Nasal Cannula Room Air Oxygen Flow Rate 1 BMI result Body Mass Index 20.6 Const Other: The patient is a slim 58-year-old male who looks older than his age. He was lying on the stretcher with his eyes closed. He did not appear in overt distress but seemed very fatigued. Responded to questions but spoke very quietly. He was interviewed with a negative cleaner. He did not seem in obvious pain or discomfort and he did not seem obviously toxic. He did not seem in respiratory distress HENMT Other: Face is symmetrical. Mucous membranes moist. Pharynx unremarkable. Eyes Other: Pupils are round equal, conjunctivae clear Neck Other: No adenopathy. No JVD. Resp Other: No increased work of breathing. Diminished air entry bilaterally. No paxton wheezes. Cardio Other: The patient has a regular rate and rhythm with no murmur GI Other: Abdomen is soft and nontender Skin Other: Skin is dry and unremarkable Neuro Other: The patient seems drowsy but answers questions. Face is symmetrical. Speech is quiet but without dysarthria. Pupils are round equal. Eye movements are normal. He moves his extremities symmetrically. Finger-nose is normal bilaterally. Toes go down bilaterally. He seemed it could deconditioned 58-year-old but he does not seem to have any obvious focal finding. Extrem Other: No peripheral edema. No calf swelling or tenderness. No leg asymmetry Medications Administered Discontinued Medications Generic Name Dose Route Start Last Admin Trade Name Freq PRN Reason Stop Dose Admin Acetaminophen 975 mg 09/29/23 21:40 09/29/23 22:21 Acetaminophen 325 Mg Tablet PO 09/29/23 21:41 975 mg ONCE ONE Administration Albuterol/Ipratropium 3 ml 09/29/23 20:22 09/29/23 20:33 Albuterol/Iprat 2.5/0.5mg 3 Ml Ampul.Neb INHALE 09/29/23 20:23 3 ml ONCE ONE Administration Albuterol/Ipratropium 3 ml 09/29/23 21:39 09/29/23 21:52 Albuterol/Iprat 2.5/0.5mg 3 Ml Ampul.Neb INHALE 09/29/23 21:40 3 ml ONCE ONE Administration Azithromycin 500 mg 09/29/23 21:39 09/29/23 22:21 Azithromycin 500 Mg Tablet PO 09/29/23 21:40 500 mg ONCE ONE Administration Buprenorphine/Naloxone 1 film 09/29/23 21:38 09/29/23 22:21 Buprenorphine/Naloxone 8/2 Mg Film SUBLINGUAL 09/29/23 21:39 1 film ONCE ONE Administration Sodium Chloride 1,000 mls @ 999 mls/hr 09/29/23 20:30 09/29/23 20:47 Ns IV 09/29/23 21:30 999 mls/hr .Q1H1M ADRIEN Administration Prednisone 60 mg 09/29/23 21:39 03/15/24 22:21 Prednisone 20 Mg Tablet PO 09/29/23 21:40 60 mg ONCE ONE Administration Medical Decision Making Medical Decision Making [facility] Narrative: The patient is a 58-year-old male who lives by himself. He has a history of COPD and is on 2 L of oxygen at home. He also has a history of substance use disorder in his prescribed Suboxone by the [facility]. He came to the hospital today because his nurse who comes twice a day was concerned that he seemed not himself. He seemed more confused and less able to care for himself. The patient complained of chest and arm pain and possibly fevers and chills. Clinically the patient did not seem obviously toxic although he seemed drowsy. He was given a DuoNeb updraft. He was given IV fluids. He was observed. He seemed to perk up. I was ultimately able to reach the nurse who takes care of him at home. Her name is Geneva. She sees him 2 times a day and helps him with his medications. Given her description of his change in mental status we also obtained a head CT that was negative. He ultimately produced a urine sample that was sent for tox screen. His urine tox screen is positive for fentanyl, phencyclidine, benzodiazepines, cocaine, and marijuana. Given this finding I think that his altered mental status is likely secondary to his substance use disorder. The patient does not have his keys. His nurse can not let him in tonight. Since I do not think I can discharge him back to his apartment tonight he will be kept in the emergency room with the case management and physical therapy consult. He seemed mildly unsteady on a trial of ambulation. Overall my expectation is that his mental status may be much clear in the morning urge when his nurse can let him into his apartment. Lab Data 09/29/23 19:32 09/29/23 19:32 Labs: Lab Results 09/29/23 09/29/23 09/29/23 Range/Units 19:32 19:33 20:48 WBC 5.2 (4.8-10.8) X10*3/uL RBC 3.86 L (4.60-5.80) X10*6/uL Hgb 11.4 L (14.0-18.0) g/dl Hct 34.0 L (42.0-52.0) % MCV 88.1 (80.0-98.0) fL MCH 29.5 (27.0-33.0) pg MCHC 33.5 (31.0-36.0) g/dl RDW 15.2 (11.0-16.0) % Plt Count 371 (160-400) X10*3/uL MPV 9.0 L (9.4-12.4) fL Immature Gran % (Auto) 0.2 (0.0-0.4) % Neut % (Auto) 39.7 L (45-73) % Lymph % (Auto) 37.9 (20-40) % [place] % (Auto) 6.2 (2-11) % Eos % (Auto) 15.0 H (0-4) % Baso % (Auto) 1.0 (0-2) % Lymph # (Auto) 2.0 (1.2-4.9) X10*3/uL [place] # (Auto) 0.3 (0.1-1.2) X10*3/uL Eos # (Auto) 0.8 H (0.0-0.4) X10*3/uL Baso # (Auto) 0.1 (0.0-0.2) X10*3/uL Abs Immat Gran (auto) 0.01 (0.00-0.03) X10*3/uL Absolute Neuts (auto) 2.1 (2.0-8.3) x10*3/uL Absolute Nucleated RBC 0.000 (0.0-0.012) X10*3/uL Nucleated RBC % (auto) 0.0 (0.0-0.2) /100WBC VBG pH 7.41 (7.32-7.43) VBG pCO2 49 mmHg VBG pO2 64 mmHg VBG HCO3 32 H (22-26) mmol/L VBG O2 Saturation 91.0 % VBG Base Excess 6.7 mmol/L Sodium 143 (135-145) mmol/L Potassium 3.9 (3.3-5.1) mmol/L Chloride 106 (96-108) mmol/L Carbon Dioxide 29 (22-29) mmol/L Anion Gap 12 (12-20) BUN 12 (9-16) mg/dL Creatinine 0.97 (0.5-1.4) mg/dL Estim Creat Clear Calc 62.3 Estimated GFR > 60 Random Glucose 80 (60-115) mg/dL Calcium 9.4 (8.4-10.2) mg/dL Total Bilirubin 0.3 (0.0-1.0) mg/dL AST 18 (5-37) U/L ALT 15 (0-40) U/L Alkaline Phosphatase 93 (39-117) U/L Troponin I High Sens < 2.7 (<3.5-35.0) ng/L C-Reactive Protein 0.33 (< or = 0.50) mg/dL B-Natriuretic Peptide < 10 (<100) pg/mL Total Protein 6.8 (6.5-8.0) g/dL Albumin 3.7 (3.5-5.0) g/dL Urine Color Urine Appearance Urine pH (5.0-9.0) Ur Specific [place] (1.005-1.025) Urine Protein (Neg-Trace) mg/dL Urine Glucose (UA) (Negative) mg/dL Urine Ketones (Negative) mg/dL Urine Blood (Negative) Urine Nitrite (Negative) Ur Leukocyte Esterase (Negative) Urine RBC (0-2) /HPF Urine WBC (0-5) /HPF Ur Squamous Epith Cells (0-2) /HPF Urine Bacteria (None Seen) Hyaline Casts (0-2) /LPF Urine Opiates Screen (Not Detect) Urine Fentanyl Screen (Not Detect) Ur Barbiturates Screen (Not Detect) Ur Phencyclidine Scrn (Not Detect) Ur Amphetamines Screen (Not Detect) U Benzodiazepines Scrn (Not Detect) Urine Cocaine Screen (Not Detect) U Marijuana (THC) Screen (Not Detect) COVID-19 (ALENA) Negative (Negative) COVID-19 Clin Com See Note Influenza Type A (RASHAD) Negative (Negative) Influenza Type B (RASHAD) Negative (Negative) Influenza A & B Note See Note 09/29/23 Range/Units 22:49 WBC (4.8-10.8) X10*3/uL RBC (4.60-5.80) X10*6/uL Hgb (14.0-18.0) g/dl Hct (42.0-52.0) % MCV (80.0-98.0) fL MCH (27.0-33.0) pg MCHC (31.0-36.0) g/dl RDW (11.0-16.0) % Plt Count (160-400) X10*3/uL MPV (9.4-12.4) fL Immature Gran % (Auto) (0.0-0.4) % Neut % (Auto) (45-73) % Lymph % (Auto) (20-40) % [place] % (Auto) (2-11) % Eos % (Auto) (0-4) % Baso % (Auto) (0-2) % Lymph # (Auto) (1.2-4.9) X10*3/uL [place] # (Auto) (0.1-1.2) X10*3/uL Eos # (Auto) (0.0-0.4) X10*3/uL Baso # (Auto) (0.0-0.2) X10*3/uL Abs Immat Gran (auto) (0.00-0.03) X10*3/uL Absolute Neuts (auto) (2.0-8.3) x10*3/uL Absolute Nucleated RBC (0.0-0.012) X10*3/uL Nucleated RBC % (auto) (0.0-0.2) /100WBC VBG pH (7.32-7.43) VBG pCO2 mmHg VBG pO2 mmHg VBG HCO3 (22-26) mmol/L VBG O2 Saturation % VBG Base Excess mmol/L Sodium (135-145) mmol/L Potassium (3.3-5.1) mmol/L Chloride (96-108) mmol/L Carbon Dioxide (22-29) mmol/L Anion Gap (12-20) BUN (9-16) mg/dL Creatinine (0.5-1.4) mg/dL Estim Creat Clear Calc Estimated GFR Random Glucose (60-115) mg/dL Calcium (8.4-10.2) mg/dL Total Bilirubin (0.0-1.0) mg/dL AST (5-37) U/L ALT (0-40) U/L Alkaline Phosphatase (39-117) U/L Troponin I High Sens (<3.5-35.0) ng/L C-Reactive Protein (< or = 0.50) mg/dL B-Natriuretic Peptide (<100) pg/mL Total Protein (6.5-8.0) g/dL Albumin (3.5-5.0) g/dL Urine Color Dark Yellow Urine Appearance Clear Urine pH 5.5 (5.0-9.0) Ur Specific [place] 1.020 (1.005-1.025) Urine Protein Negative (Neg-Trace) mg/dL Urine Glucose (UA) Negative (Negative) mg/dL Urine Ketones 15 (Negative) mg/dL Urine Blood Moderate (2+) H (Negative) Urine Nitrite Negative (Negative) Ur Leukocyte Esterase Trace H (Negative) Urine RBC >20 H (0-2) /HPF Urine WBC 0-5 (0-5) /HPF Ur Squamous Epith Cells 0-2 (0-2) /HPF Urine Bacteria None Seen (None Seen) Hyaline Casts 0-2 (0-2) /LPF Urine Opiates Screen Not Detected (Not Detect) Urine Fentanyl Screen POSITIVE H (Not Detect) Ur Barbiturates Screen Not Detected (Not Detect) Ur Phencyclidine Scrn POSITIVE H (Not Detect) Ur Amphetamines Screen Not Detected (Not Detect) U Benzodiazepines Scrn POSITIVE H (Not Detect) Urine Cocaine Screen POSITIVE H (Not Detect) U Marijuana (THC) Screen POSITIVE H (Not Detect) COVID-19 (ALENA) (Negative) COVID-19 Clin Com Influenza Type A (RASHAD) (Negative) Influenza Type B (RASHAD) (Negative) Influenza A & B Note Independent Interpretation I performed an independent interpretation of an: EKG Interpretation: EKG at 19:25 shows normal sinus rhythm at 96 beats per minute. Compared to previous EKGs no definite changes. Discharge Plan Discharge Clinical Impression: Altered mental status, Substance use disorder Patient Disposition: Still a Patient Prescriptions: No Action cyclobenzaprine 10 mg Tablet 10 mg PO TID PRN (Reason: back pain) 30 Days Qty: 60 0RF risperidone 1 mg Tablet 1 mg PO DAILY 30 Days Qty: 30 0RF clonazepam 0.5 mg Tablet 0.5 mg PO BID PRN (Reason: anxiety) 15 Days Qty: 30 1RF quetiapine 50 mg Tablet 50 mg PO QID PRN (Reason: Anxiety/Restlessness) 30 Days Qty: 60 0RF benzonatate 100 mg Capsule 100 mg PO TID PRN (Reason: Cough) 14 Days Qty: 30 0RF verapamil 120 mg Tablet Extended Release 120 mg PO DAILY 30 Days Qty: 30 0RF Protocol: Hold for SBP/HR < HOLD for SBP < : 90 HOLD for HR < : 60 atorvastatin 40 mg Tablet 40 mg PO BEDTIME 30 Days Qty: 30 0RF ipratropium-albuterol 0.5 mg-3 mg(2.5 mg base)/3 mL solution for nebulization 3 ml inhalation TID PRN (Reason: wheezing) 30 Days Qty: 90 0RF hydroxyzine HCl 50 mg tablet 50 mg PO BID PRN (Reason: anxiety) 30 Days Qty: 60 0RF quetiapine 100 mg Tablet 100 mg PO BID@0900,1800 30 Days Qty: 30 0RF risperidone 3 mg tablet 3 mg PO BEDTIME 30 Days Qty: 30 0RF tamsulosin 0.4 mg Capsule 0.8 mg PO DAILY 30 Days Qty: 60 0RF mirtazapine 30 mg tablet 30 mg PO BEDTIME 30 Days Qty: 30 0RF ferrous sulfate [FeroSul] 325 mg (65 mg iron) tablet 325 mg PO BEDTIME 30 Days Qty: 30 0RF omeprazole 20 mg Capsule,Delayed Release(Dr/Ec) 20 mg PO DAILY@0630 30 Days Qty: 30 0RF zolpidem 5 mg Tablet 5 mg PO BEDTIME PRN (Reason: insomnia) 15 Days Qty: 15 1RF albuterol sulfate [Ventolin HFA] 90 mcg/actuation HFA aerosol inhaler 2 puff INHALATION Q4-6H PRN (Reason: Wheezing) 30 Days Qty: 6.7 0RF topiramate 50 mg tablet 50 mg PO BEDTIME 30 Days Qty: 30 0RF quetiapine 400 mg tablet 400 mg PO BEDTIME 30 Days Qty: 30 0RF budesonide-formoterol [Symbicort] 160-4.5 mcg/actuation HFA aerosol inhaler 2 puff INHALATION BID 30 Days Qty: 10.2 0RF venlafaxine 150 mg tablet extended release 24hr 150 mg PO DAILY 30 Days Qty: 30 0RF Spiriva Respimat 2.5 mcg/actuation mist 2 puff INHALATION DAILY 30 Days Qty: 4 0RF acetaminophen 325 mg Tablet 650 mg PO Q6H PRN (Reason: Headache/Pain Mild Scale (1-3)) Qty: 0 0RF buprenorphine-naloxone [Suboxone] 8-2 mg film 1 film sublingual DAILY 5 Days Qty: 5 0RF Referrals: [place],[facility] [Primary Care Provider] - (COPD, multiple complaints)
[2023-09-29 20:33] VITALS: PULSE 89; RESP 19; O2SAT 96
[2023-09-29] MEDS: Albuterol/Iprat 2.5/0.5MG 3 ML AMPUL.NEB INHALE ×2 (20:33→21:52)
[2023-09-29 20:43] LABS: C Reactive Protein 0.33 mg/dL (< or = 0.50)
[2023-09-29] MEDS: 0.9 % Sodium Chloride 1,000 ML 999 ML IV (20:47)
[2023-09-29 20:54] LABS: B Type Natriuretic Peptide < 10 pg/mL (<100)
[2023-09-29 20:54] LABS: Venous Blood Gas Refer to POC result
[2023-09-29 20:55] LABS: VBG Base Excess 6.7 mmol/L; VBG HCO3 32 mmol/L (22-26); VBG pCO2 49 mmHg; VBG pH 7.41 (7.32-7.43); VBG pO2 64 mmHg
[2023-09-29 21:52] VITALS: PULSE 89; RESP 19; O2SAT 96
[2023-09-29 22:20] VITALS: BP 144/81; PULSE 77; RESP 13; TEMP 36.7; O2SAT 94
[2023-09-29] MEDS: Acetaminophen 325 MG TABLET 975 MG PO (22:21)
[2023-09-29] MEDS: Buprenorphine/Naloxone 8/2 mg FILM 1 FILM SUBLINGUAL (22:21)
[2023-09-29] MEDS: predniSONE 20 MG TABLET 60 MG PO (22:21)
[2023-09-29] MEDS: Azithromycin 500 MG TABLET PO (22:21)
[2023-09-29 22:39] VITALS: BP 145/94; PULSE 78; RESP 12; O2SAT 93
[2023-09-29 22:57] LABS: Appearance Urine Clear; Color Urine Dark Yellow; Glucose Urine UA Negative (Negative); Leukocyte Esterase Urine Trace (Negative); Nitrite Urine Negative (Negative); PH 5.5 (5.0-9.0); UMIC TRIGGER UACC YES; Urine Blood Moderate (2+) (Negative); Urine Ketones 15 mg/dL (Negative); Urine Protein Negative (Neg-Trace)
[2023-09-29 23:00] LABS: Bacteria Urine None Seen (None Seen); Hyaline Casts Urine 0-2 /LPF (0-2); RBC Urine >20 /HPF (0-2); Squamous Epithelial Cell Urine 0-2 /HPF (0-2); WBC Urine 0-5 /HPF (0-5)
[2023-09-29 23:04] LABS: Amphetamine Screen Urine Not Detected (Not Detect); Barbiturates, Urine Not Detected (Not Detect); Benzodiazepines Screen Urine POSITIVE (Not Detect); Cannabinoid Screen Urine POSITIVE (Not Detect); Cocaine Screen Urine POSITIVE (Not Detect); Fentanyl, urine POSITIVE (Not Detect); Opiate Screen Urine Not Detected (Not Detect); Phencyclidine Screen Urine POSITIVE (Not Detect)
--- NOTE | 2023-09-29 23:32 | PC.NURSE ---
this rn assumed care of pt, pt resting in stretcher, 2L nasal cannula sating 93-95%. pt denies pain at this time.
[2023-09-30 02:20] VITALS: BP 128/77; PULSE 69; RESP 13; TEMP 36.6; O2SAT 98
--- NOTE | 2023-09-30 04:14 | PC.NURSE ---
pt allowed to sleep, respirations even and unlabored, no acute distress noted.
[2023-09-30 06:34] VITALS: BP 138/89; PULSE 86; RESP 12; TEMP 36.7; O2SAT 96
[2023-09-30 10:27] VITALS: BP 124/84; PULSE 86; RESP 13; TEMP 36.7; O2SAT 97
--- NOTE | 2023-09-30 10:39 | MHC.CM.ED ---
Received case management consult overnight. Patient came to the ER due to AMS. Patient admitted to using Cocaine. Work up essentially negative otherwise. Met with patient with production artist in regards to discharge planning. Patient lives alone, ambulates with a cane, is active with a VNA and receives oxygen at home. Patient is unsure of VNA name or oxygen company. Patient feels he can safely return home and has a dockery to get into his apartment. Needs transportation. Radha FISCHER booked for 12pm. Med [facility] with chart. Patient, Jhoana JACK and Gabriela FROST aware. Review of records show patient was active with [facility]. Referral made via [facility]. Continue to monitor for d/c needs.
[2023-09-30 11:32] VITALS: BP 124/84; PULSE 86; O2SAT 97
[2023-09-30 13:02] VITALS: BP 124/84; PULSE 86; RESP 13; TEMP 36.6; O2SAT 97
== END 2023-09-30 13:03 | disposition home or self-care (01) ==
PROVIDERS: Emergency Provider Emergency Medicine
DX: R41.82 Altered mental status, unspecified (principal); F14.10 Cocaine abuse, uncomplicated; F11.20 Opioid dependence, uncomplicated; F19.10 Other psychoactive substance abuse, uncomplicated; F12.20 Cannabis dependence, uncomplicated; Z11.52 Encounter for screening for COVID-19; F17.210 Nicotine dependence, cigarettes, uncomplicated; R07.9 Chest pain, unspecified; F33.9 Major depressive disorder, recurrent, unspecified; J43.9 Emphysema, unspecified; J44.9 Chronic obstructive pulmonary disease, unspecified; Z99.81 Dependence on supplemental oxygen; Z79.02 Long term (current) use of antithrombotics/antiplatelets; Z79.899 Other long term (current) drug therapy
CPT/HCPCS: 36415; 70450; 71045; 80053; 80307; 81001; 82803; 83880; 84484; 85025; 86140; 87502; 87635; 93005; 94640; 96360; 96361; 97161; 99285

== ENCOUNTER → 2023-09-29 19:14 | Outpatient (BNV) | payer MEDICAID, SELFPAY | PROVIDERS: Emergency Provider Emergency Medicine; Visit Provider Internal Medicine Cardiovascular Disease | DX: R07.9 Chest pain, unspecified (principal) | CPT/HCPCS: 93010 ==

== ENCOUNTER 2023-10-26 12:11 | Outpatient (REF) | payer MEDICAID, SELFPAY ==
[2023-10-26 13:38] LABS: Alanine Aminotransferase 10 U/L (0-40); Albumin Level 3.5 g/dL (3.5-5.0); Alkaline Phosphatase 66 U/L (39-117); Anion Gap 9 (12-20); Aspartate Amino Transferase 11 U/L (5-37); Bilirubin Total 0.2 mg/dL (0.0-1.0); Blood Urea Nitrogen 16 mg/dL (9-16); Calcium 8.9 mg/dL (8.4-10.2); Carbon Dioxide 27 mmol/L (22-29); Chloride 105 mmol/L (96-108); Estimated Glomerular Filt Rate > 60; Glucose Random 92 mg/dL (60-115); Potassium 4.3 mmol/L (3.3-5.1); Sodium 137 mmol/L (135-145); Total Protein 6.6 g/dL (6.5-8.0)
== END 2023-10-26 12:12 | disposition home or self-care (01) ==
LOC: HO.HHCL 12:11
PROVIDERS: Visit Provider Internal Medicine
DX: Z00.00 Encounter for general adult medical examination without abnormal findings (principal)
CPT/HCPCS: 36415; 80053

== ENCOUNTER 2023-10-31 11:12 | Outpatient (REF) | payer MEDICAID, SELFPAY ==
--- NOTE | ~2023-10-31 | CT_ITS ---
EXAMINATION: CT CHEST WITH CONTRAST CLINICAL INFORMATION: Follow-up right base nodule. COMPARISON: Radiographs dated 09/29/2023; CTA chest dated 08/08/2023. TECHNIQUE: Multidetector volumetric CT imaging of the chest was obtained after the administration of 65 mL of Omnipaque 350 intravenous contrast without immediate adverse reactions. Axial MIP volume rendering provided. Sagittal and coronal reformatted images were obtained. This CT examination was performed using dose optimization techniques as appropriate, variously including the following: *Automated exposure control *Adjustment of mA and/or kV according to patient size (this includes techniques or standardized protocols for targeted exams where dose is matched to indication/reason for exam; i.e. extremities or head) *Use of iterative reconstruction technique DLP: 73 mGy-cm FINDINGS: HOSPITAL INTERN: A right base mass is noted. There are emphysematous changes. LUNGS: There are moderate centrilobular emphysematous changes. Centrally within the right base (7:125), a 3.1 x 2.5 cm mass is seen. This shows a postcontrast Hounsfield value of 30.4 units, and there are internal foci of necrosis. There is adjacent spiculation and scar/subsegmental atelectasis. No nodule, infiltrate or groundglass opacity is seen. No generalized small airway thickening is seen. The central airways appear patent. MEDIASTINUM: The thyroid is unremarkable. There is no thoracic aortic aneurysm or dissection. There are mild atherosclerotic calcifications of the thoracic aorta and coronary arteries. No mediastinal or hilar lymphadenopathy is seen. PLEURA: There is no pleural effusion. No pleural mass or thickening. AXILLA: No lymphadenopathy. UPPER ABDOMEN: There is hepatic steatosis. The adrenal glands are unremarkable. A 2.1 cm partially included mildly complex (Bosniak 2) right renal upper pole cyst is seen, with fine septation. At the upper pole of the right kidney, there are 3 mm, 3 mm and 4 mm nonobstructing calculi (3:60). OSSEOUS STRUCTURES: At C6-C7 and C7-T1, there is anterior endplate arthropathy. No acute or aggressive osseous finding is noted. CT/CT chest w IV con IMPRESSION: 1. There are moderate centrilobular emphysematous changes. 2. A 3.1 cm mass is again seen at the central right base, with spiculations and central necrotic foci. This is highly suspicious for neoplasm. Recommend further evaluation, possibly to include PET/CT or biopsy. 3. No thoracic lymphadenopathy or pleural effusion is seen. 4. No acute or aggressive osseous finding is noted. 5. There is hepatic steatosis. 6. There are nonobstructing right renal upper pole calculi. Fleischner guidelines were followed.
[2023-10-31] MEDS: iohexoL 350 MG/ML 100 ML INFUS..BTL IV (11:44)
== END 2023-10-31 11:13 | disposition home or self-care (01) ==
LOC: HO.CT 11:12
PROVIDERS: PCP Internal Medicine; Visit Provider Internal Medicine
DX: R63.4 Abnormal weight loss (principal); R91.8 Other nonspecific abnormal finding of lung field
CPT/HCPCS: 71260; Q9967

== ENCOUNTER 2023-11-23 10:02 | Outpatient (REF) | payer MEDICAID, SELFPAY ==
--- NOTE | ~2023-11-23 | CT_ITS ---
EXAMINATION: CT ABDOMEN AND PELVIS WITHOUT AND WITH CONTRAST CLINICAL INFORMATION: Microscopic hematuria. COMPARISON: Renal ultrasound 09/26/2023. CT abdomen and pelvis without contrast 02/26/2023. TECHNIQUE: Noncontrast CT of the abdomen and pelvis is performed followed by split bolus contrast-enhanced images using 85 mL Omnipaque 350 contrast.? Postcontrast imaging is performed during the combined nephrogram and excretion phase. Sagittal and coronal reformatted images were obtained on the technologist's workstation for both the precontrast and postcontrast phases. Technical note that the axial noncontrast images are discontinuous and not adequately submitted for interpretation. Noncontrast evaluation made primarily from the coronal and sagittal reformatted images. This CT examination was performed using dose optimization techniques as appropriate, variously including the following: *Automated exposure control *Adjustment of mA and/or kV according to patient size (this includes techniques or standardized protocols for targeted exams where dose is matched to indication/reason for exam; i.e. extremities or head) *Use of iterative reconstruction technique DLP: 355 mGy-cm FINDINGS: LUNG BASES: Emphysema and diffuse airway wall thickening. Partial visualization of the inferior aspect of the known right lower lobe mass. LIVER, GALLBLADDER, AND BILIARY TREE: The liver is normal in size, shape, and attenuation. No focal hepatic lesion or biliary ductal dilatation is present. Cholecystectomy. PANCREAS: No discrete pancreatic mass or pancreatic ductal dilatation. SPLEEN: Unremarkable. ADRENAL GLANDS: No adrenal mass. KIDNEYS AND URETERS: A cluster of small calculi versus a developing casting calculus is seen in the upper pole infundibulum of the right kidney measuring in aggregate about 7 mm. 5 calculi measuring 1-2 mm are seen throughout the right kidney. 7 calculi measuring 1-2 mm are seen throughout the left kidney. There is no hydronephrosis. The nephrograms are symmetric. Simple cyst is seen in the right kidney for which no imaging follow-up is recommended. Urographic excretion is symmetric. No hydroureteronephrosis. No ureteral abnormality. BLADDER: No discrete bladder mass. Trabeculated urinary bladder. GASTROINTESTINAL TRACT: The small and large bowel are normal in caliber. ABDOMINAL WALL: Probable small bilateral fat-containing inguinal hernias. Posteromedial bilateral diaphragmatic hernias containing fat. LYMPH NODES: No lymphadenopathy. VASCULAR: Aortoiliac atherosclerosis. No aortic aneurysm. PELVIC VISCERA: The prostate is mildly enlarged. OSSEUS STRUCTURES: Degenerative changes in the spine. CT/CT urogram IMPRESSION: Numerous shortening renal calculi bilaterally No suspicious renal mass. Mildly enlarged prostate and trabeculated urinary bladder consistent with chronic bladder outlet obstructive physiology. Incomplete visualization of known right lower lobe mass. Follow-up as per prior chest CT is recommended.
[2023-11-23] MEDS: iohexoL 350 MG/ML 75 ML INFUS..BTL 85 ML IV (11:01)
== END 2023-11-23 10:03 | disposition home or self-care (01) ==
LOC: HO.CT 10:02
PROVIDERS: PCP Internal Medicine; Visit Provider Nurse Practitioner Family
DX: R31.29 Other microscopic hematuria (principal); N20.0 Calculus of kidney; F17.200 Nicotine dependence, unspecified, uncomplicated
CPT/HCPCS: 74178; Q9967

== ENCOUNTER → 2023-11-24 19:30 | Outpatient (REF) | payer MEDICAID, SELFPAY | LOC: HO.SL 19:30 | PROVIDERS: PCP Internal Medicine; Visit Provider Internal Medicine Pulmonary Disease | DX: G47.33 Obstructive sleep apnea (adult) (pediatric) (principal) | CPT/HCPCS: 95810 ==

== ENCOUNTER → 2023-11-24 21:40 | Outpatient (BNV) | payer MEDICAID, SELFPAY | PROVIDERS: PCP Internal Medicine; Visit Provider Internal Medicine | DX: G47.33 Obstructive sleep apnea (adult) (pediatric) (principal) | CPT/HCPCS: 95810 ==

== ENCOUNTER 2023-12-15 15:26 | Inpatient (IN) | payer OTHER, SELFPAY ==
--- NOTE | ~2023-12-15 | MR_ITS ---
EXAMINATION: MR BRAIN WITHOUT AND WITH CONTRAST CLINICAL INFORMATION: Lung mass. Altered mental status. Rule out metastatic disease. COMPARISON: Head CT dated 09/29/2023. TECHNIQUE: Multiplanar, multisequence imaging of the brain was performed before and after the intravenous administration of Gadavist. FINDINGS: No diffusion abnormalities are identified to suggest an acute infarct. The ventricles are normal in size. No mass effect or midline shift is seen. Minimal scattered white matter signal changes are visible. No extra-axial fluid collections are seen. The brainstem and cerebellum are normal. There is no abnormal parenchymal or leptomeningeal enhancement. Small developmental venous anomaly visible laterally in the inferior right temporal lobe. The gradient refocused acquisition is normal. The craniovertebral junction, marrow signal, and midline structures are normal. The major intracranial flow voids at the level of the benton of [place] are preserved. The dural venous sinus flow voids are maintained. The mastoid air cells are well aerated. There is [id number] dependent right sphenoid sinus mucosal thickening. MR/MR head/brain wo/w con IMPRESSION: No evidence of intracranial metastatic disease. No acute process. Minimal scattered white matter signal changes which may be due to chronic microangiopathy. [id number] right sphenoid sinus mucosal thickening.
[2023-12-15 15:38] VITALS: BP 116/78; PULSE 99; RESP 18; TEMP 36.9; O2SAT 96
[2023-12-15 15:45] VITALS: BMI 18.5
[2023-12-15] MEDS: hydrOXYzine HCL 25 MG TABLET PO (16:38)
--- NOTE | 2023-12-15 16:52 | HO.PM.IMCN ---
History of Present Illness Data of Consult Service Date: 12/15/23 Requesting physician: Lily Johnson Primary Care Provider: Vince Doran MD [facility] Reason for consult: medical H&P 58-year-old male with history of COPD, hyperlipidemia, hypertension, history of cocaine abuse, lung mass admitted to adult Psychiatry from [facility] with consult placed hospitalist service for medical H&P. He is Amharic-speaking only and is seen with the assistance of historical interpreter. He was admitted to [facility] from 11/28-12/14 due to acute metabolic encephalopathy and respiratory distress. The patient had reportedly been missing 28 tablets of clonazepam and there was concern for overdose however patient adamantly denies this. He was ultimately diagnosed with what appears to be a postobstructive pneumonia with acute hypoxemic respiratory failure and COPD exacerbation. He was treated with IV antibiotics, IV steroids, and nebulizer treatments. Repeat chest CT on 12/06 showed near resolution of consolidative mass in the right lower lobe but there was remaining incidental 0.7 x 0.4 cm solid nodule slightly lower than the cavitary lesion. [place] [facility] [place] has had CT chest in the past from 10/28 and CTA chest 08/08 of this year demonstrating concerning nodule. Pt has not yet undergone biopsy. He is still reporting productive cough but is feeling better overall. Occasionally sob, requesting albuterol nebs. He is afebrile with no leukocytosis [place] [facility] CBC significant for normocytic anemia with h/h 11.0/33.4%, consistent with baseline. Renal function is normal, lytes normal except for a mild hyperkalemia on 12/07 of 5.3 without repeat. Utox was positive for benzos, cocaine, buprenorphine, and thc on arrival to [facility] 11/28. EKG showed sinus tach, rate 104, with nonspecific t wave abnormality. No acute ischemic changes. The patient is currently reporting weakness and fatigue. He reports anorexia with weight loss loss of unspecified amount but feels this only started during his hospitalization at [facility]. It appears he has lost abotu 12 pounds since his last visit in 09/2023. He continues smoking 0.5PPD cigarettes (about 22 pack year history) but does not wish to continue and is currently wearing a patch. He reports his last inhaled cocaine use was about 1 month ago (denies hx IVDA). No etoh use recently. Review of Systems Review of Systems: General: No fevers, malaise, unintentional weight loss HEENT: No blurred vision, diplopia. No sore throat, nasal congestion, rhinorrhea, sinus pain, ear pain Cardiovascular: No chest pain, palpitations, or leg edema Respiratory: +cough, +sob. No wheezing GI: +anorexia. No abdominal pain, nausea, vomiting, diarrhea, constipation, melena, hematochezia : No dysuria, hematuria, increased urinary frequency, decreased urinary output MSK: No myalgia, back pain Neuro: No headaches, weakness, paresthesias Skin: No rashes or lesions [facility] Medical History (Updated 12/15/23 @ 17:07 by SANTOSH Guillen) Suicidal ideation Polysubstance abuse Chronic back pain BPH (benign prostatic hyperplasia) Nicotine dependence Cannabis use disorder, moderate, dependence Cocaine use disorder Pulmonary nodules Emphysema of lung Anxiety Depression Asthma Surgical History Hx of cholecystectomy Social History Household Members: Unknown / Unable to assess Housing: Unknown / Unable to assess Do you presently have visiting nurse or other home services: Yes (Angeline [phone]) Unable to assess alcohol history related to: Unknown Alcohol intake: current Alcohol intake frequency: does not drink Alcohol type: beer Patient Tobacco Use Status: Current everyday Tobacco user Tobacco use type: Cigarette Cigarette Packs Per Day: 1 Cigarettes Per Day: 20.0 Years Smoked: many years e-Cigarette/Vaping Use: Never Used Substance Use Type: Crack/Cocaine Advance Directives: Yes Advance Directives on File: Yes Advance Directives Date on File: 01/18/23 service: No Sexual orientation: Straight/Heterosexual Meds Allergies Allergy/AdvReac Type Severity Reaction Status Date / Time ibuprofen Allergy Intermediate Stomach Verified 08/25/23 15:43 Upset penicillin V Allergy Intermediate rash Verified 08/25/23 15:43 Active Medications: Current Medications Acetaminophen (Acetaminophen 325 Mg Tablet) 650 mg PO Q6H PRN PRN Reason: Headache/Pain Mild Scale (1-3) Al Hydroxide/Mg Hydroxide (Magnesium Hydrox/Alum Hydrox 30 Ml Oral.Susp) 30 ml PO Q6H PRN PRN Reason: Heartburn/Nausea Hydroxyzine HCl (Hydroxyzine Hcl 25 Mg Tablet) 25 mg PO Q6H PRN PRN Reason: Anxiety Last Admin: 12/15/23 16:38 Dose: 25 mg Magnesium Hydroxide (Milk Of Magnesia 30 Ml Oral.Susp) 30 ml PO DAILY PRN PRN Reason: Constipation Nicotine (Nicotine 21 Mg Patch.Td24) 21 mg TRANSDERMA DAILY ADRIEN Nicotine Polacrilex (Nicotine Polacrilex 2 Mg Gum) 4 mg BUCCAL Q2H PRN PRN Reason: Nicotine Cravings Trazodone HCl (Trazodone Hcl 50 Mg Tablet) 50 mg PO BEDTIME MRX1 PRN PRN Reason: Insomnia Home Medications ?Medication ?Instructions ?Recorded ?Confirmed ?Last Taken ?Type acetaminophen 325 mg tablet 650 mg PO Q6H PRN Headache/Pain 12/15/23 12/15/23 Unknown History (Tylenol) Mild Scale (1-3) clonazepam 0.5 mg tablet (Klonopin) 0.5 mg PO BID PRN anxiety 12/15/23 12/15/23 Unknown History risperidone 1 mg tablet (Risperdal) 1 mg PO DAILY 12/15/23 12/15/23 Unknown History risperidone 3 mg tablet (Risperdal) 3 mg PO BEDTIME 12/15/23 12/15/23 Unknown History Physical Exam Vital Signs and Narrative: Vital Signs: Last Vital Signs Temp 98.4 F 12/15/23 15:38 Pulse 99 12/15/23 15:38 Resp 18 12/15/23 15:38 BP 116/78 12/15/23 15:38 Pulse Ox 96 12/15/23 15:38 O2 Del Method Room Air 12/15/23 15:38 BMI result Body Mass Index 18.5 Constitutional - Awake and Alert, No apparent distress Eyes - PERRLA, EOMI Cardiovascular - S1S2, RRR, No edema Respiratory - Normal lung expansion, Normal respiratory effort, No respiratory distress, bilateral lower lobe rhonchi Gastrointestinal - NT / ND; +BS; No rebound or guarding - No CVA tenderness Extremities - no calf tenderness bilaterally, no swelling Musculoskeletal - Normal inspection, normal ROM Skin - Warm/Dry Neurological - Alert & oriented x3, CN II-XII in tact, 5/ strength BUE and BLE Psychological - Appropriate affect Assessment and Plan (1) Routine medical exam: Status: Acute (2) Unintentional weight loss: Status: Acute (3) Lung mass: Status: Acute Plan 58-year-old male with history of COPD, hyperlipidemia, hypertension, history of cocaine abuse, lung mass admitted to adult Psychiatry from [facility] with consult placed hospitalist service for medical H&P. #Mood disorder/?klonipin OD -plan per psychiatry #Recent RLL pneumonia (?post obstructive) with hypoxemic respiratory failure and lung mass -See HPI. Completed course abx, weaned from O2 -Pulmonary nodule seen on multiple Ct scans dating to 07/2023, has not yet undergone biopsy. Discussed with Dr. fernandez. Pulmonology consult for evaluation #Unintentional weight loss - has lost 12 pounds since last admission 1.5months ago -?r/t depression, concern for malignancy -pulm consult as above, recommend nutrition to follow. Add ensures #COPD -no exacerbation -continue maintenance inhalers, albuterol nebs prn #Substance use disorder -plan per psychaitry, continue suboxone #HTN -continue verapamil #BPH -flomax #GERD -ppi #HLD -statin #Cigarette smoking -patch for nrt -cessation counseling Thank you for allowing me to participate in this consult. Signing off at this time. Please do not hesitate to call for further questions or for any acute medical concerns
[2023-12-15] MEDS: QUEtiapine Fumarate 100 MG TABLET PO (17:29)
--- NOTE | 2023-12-15 18:08 | PC.ADMIT ---
Augustin is a 58 year Persian speaking mostly male who was admitted to at 1538 from the medical floor of [facility] on a CV after an overdose of Klonopin that he has a prescription for. He was brought into [facility] by ambulance after being found unresponsive by a family member. Upon admission assessment, Augustin is calm and cooperative and pleasant. His mood is flat and affect is anxious. His thought process appears clear and linear, he maintains good eye contact. He has a chronic longstanding history of cocaine use and marijuana use, his tox screen was positive for Cocaine, Marijuana, Benzodiazepines and Suboxone. He has a medical history of COPD without use of Oxygen and Hypertension. He denies current SI but endorses anxiety upon arriving and requesting Klonopin. He denies difficulty with sleeping and denies any recent weight loss. His goals are to get better and take his medications. He was placed on 15 minute checks for safety.
[2023-12-15 20:00] VITALS: BP 101/66; PULSE 117; RESP 17; TEMP 36.3; O2SAT 98
[2023-12-15] MEDS: Atorvastatin Calcium 40 MG TABLET PO (20:46)
[2023-12-15] MEDS: QUEtiapine Fumarate 400 MG TABLET PO (20:46)
[2023-12-15] MEDS: Topiramate 25 MG TABLET 50 MG PO (20:46)
[2023-12-15] MEDS: Ferrous Sulfate 324 MG TABLET.DR PO (20:47)
[2023-12-15] MEDS: risperiDONE 3 MG TABLET PO (20:47)
[2023-12-15] MEDS: Mirtazapine 30 MG TABLET PO (20:47)
[2023-12-15] MEDS: Albuterol Sulfate 90 MCG 8 GM INHALER 2 PUFF INHALE (21:43)
[2023-12-15] MEDS: Zolpidem Tartrate 5 MG TABLET PO (21:47)
[2023-12-15] MEDS: clonazePAM 0.5 MG TABLET PO (21:48)
[2023-12-16] MEDS: traZODone HCL 50 MG TABLET PO (01:12)
[2023-12-16] MEDS: hydrOXYzine HCL 25 MG TABLET PO (01:12)
--- NOTE | 2023-12-16 01:13 | PC.NURSE ---
Augustin reported an increase in his anxiety and some difficulty sleeping. patient given Atarax PO prn and Trazodone PO prn.
[2023-12-16 07:32] VITALS: BP 88/50; PULSE 90; RESP 16; TEMP 36.8; O2SAT 94
[2023-12-16 08:31] LABS: Alanine Aminotransferase 45 U/L (0-40); Albumin Level 3.5 g/dL (3.5-5.0); Alkaline Phosphatase 74 U/L (39-117); Anion Gap 12 (12-20); Aspartate Amino Transferase 24 U/L (5-37); Bilirubin Total 0.2 mg/dL (0.0-1.0); Blood Urea Nitrogen 18 mg/dL (9-16); Calcium 9.4 mg/dL (8.4-10.2); Carbon Dioxide 30 mmol/L (22-29); Chloride 102 mmol/L (96-108); Cholesterol 149 mg/dL (<200); Creatinine Clr Calc Pharmacy 76.5; Estimated Glomerular Filt Rate > 60; Glucose Fasting 95 mg/dL (60-99); HDL Cholesterol 53 mg/dL (>40); LDL Cholesterol Calculated 75 mg/dL (<100); Potassium 4.4 mmol/L (3.3-5.1); Sodium 140 mmol/L (135-145); Total Protein 6.2 g/dL (6.5-8.0); Triglycerides 106 mg/dL (<150)
[2023-12-16] MEDS: Nicotine 21 MG PATCH.TD24 TRANSDERMA (09:11)
[2023-12-16] MEDS: Tiotropium Bromide 2.5 mcg 1 PUFF/2.5 MCG MIST.INHAL 2 PUFF INHALE (09:12)
[2023-12-16] MEDS: Fluticasone/Vilanterol 200/25 BLST.W.DEV 1 PUFF INHALE (09:12)
[2023-12-16] MEDS: Venlafaxine HCl ER 150 MG CAP.ER.24H PO (09:13)
[2023-12-16] MEDS: QUEtiapine Fumarate 100 MG TABLET PO ×2 (09:14→17:12)
[2023-12-16] MEDS: risperiDONE 1 MG TABLET PO (09:14)
[2023-12-16] MEDS: Omeprazole 20 MG CAPSULE.DR PO (09:14)
[2023-12-16] MEDS: Tamsulosin HCL 0.4 MG CAPSULE 0.8 MG PO (09:14)
[2023-12-16] MEDS: Buprenorphine/Naloxone 8/2 mg FILM 1 FILM SUBLINGUAL (09:15)
[2023-12-16 09:21] VITALS: BP 111/65; PULSE 116
[2023-12-16] MEDS: VerapamiL HCL SR 120 MG TABLET.ER PO (09:21)
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
[2023-12-16] MEDS: Cyclobenzaprine HCl 10 MG TABLET PO ×2 (11:36→20:33)
[2023-12-16] MEDS: clonazePAM 0.5 MG TABLET PO ×2 (11:36→20:32)
--- NOTE | 2023-12-16 12:08 | P.CONPL_ITS ---
History of Present Illness History of Present Illness Consult date: 12/16/23 Chief complaint: Pulmonary mass Narrative: 58-year-old gentleman, recent 30+ pack-year smoker, seen on outpatient basis for COPD, ? JERRY, and pulmonary nodules, with poor compliance with follow-up visits now admitted to psychiatric siu noted to have an enlarging 3 cm right lower lobe mass and pulmonary evaluation requested. Patient denies any pulmonary related concerns or complaints. He is complaining of unintentional weight loss. Review of Systems 2 Constitutional: Constitutional: Denies daytime sleepiness, Denies excessive sweating, Denies fatigue, Denies fever(s), Denies lethargy, Denies malaise, Denies night sweats, Denies snoring and Reports weight loss Eyes: Eyes: Denies blurry vision and Denies itchy eyes ENT: Denies nasal congestion, Denies post nasal drip, Denies sinus pain, Denies sinus pressure and Denies other ( Thrush) Cardiovascular: Cardiovascular: Denies chest pain, Denies pedal edema, Denies dyspnea, Denies orthopnea and Denies paroxysmal nocturnal dyspnea Respiratory: Respiratory: Denies cough, Denies hemoptysis, Denies excessive phlegm production, Denies dyspnea, Denies snoring and Denies wheezing Gastrointestinal: Gastrointestinal: Denies abdominal pain and Denies heartburn Musculoskeletal: Musculoskeletal: Denies myalgias, Denies arthralgias and Denies joint swelling Integumentary/Breasts: Skin/Breast: Denies rash Neurologic: Denies memory loss and Denies seizure-like activity Psychiatric: Psychiatric: Denies abnormal sleep pattern, Denies anxiety and Denies memory loss Endocrine: Endocrine: Denies excessive sweating, Denies fatigue and Denies heat intolerance Hematologic/Lymphatic: Hematologic/Lymphatic: Denies easy bruising Allergic/Immunologic: Allergic/Immunologic: Denies itchy eyes, Denies seasonal rhinorrhea and Denies wheezing PMFSH Past Medical History Medical History Suicidal ideation Polysubstance abuse Chronic back pain BPH (benign prostatic hyperplasia) Nicotine dependence Cannabis use disorder, moderate, dependence Cocaine use disorder Pulmonary nodules Emphysema of lung Anxiety Depression Asthma Surgical History Surgical History Hx of cholecystectomy Social History Social History Household Members: None Housing: Apartment Do you presently have visiting nurse or other home services: No Unable to assess alcohol history related to: Unknown Alcohol intake: current Alcohol intake frequency: does not drink Alcohol type: beer Patient Tobacco Use Status: Current everyday Tobacco user Tobacco use type: Cigarette Cigarette Packs Per Day: 0.5 Cigarettes Per Day: 10.0 Years Smoked: many years Smoked in Last 30 Days: Yes e-Cigarette/Vaping Use: Never Used Patient Interested in Nicotine Replacement: Yes Patient Given Instructions on How to Stop Smoking: No Second Hand Smoke Exposure: No Use of substances other than those prescribed or required for medical reasons: Yes Substance Use Type: Crack/Cocaine and Marijuana Substance Use Frequency: Chronic Longstanding Last Used Substance: Just Prior to Admission Currently Displaying Signs/Symptoms of Drug Intoxication Withdrawal: No Any prior treatment program specific to substance use: Yes Have you been hit, kicked, punched, or otherwise hurt by someone within the past year? If so, by whom?: No Do you feel safe in your current relationship?: No Current Relationship Is there a partner from a previous relationship who is making you feel unsafe now?: No Are you made to feel afraid or neglected: No Advance Directives: Yes Advance Directives on File: Yes Advance Directives Date on File: 01/18/23 Do you have thoughts of harming others: None Do you have a plan to hurt others: No Plan Recently lost weight without trying: No How much weight loss: Not applicable Eating poorly because of decreased appetite: No Nutrition screen score: 0 Nutrition Risks: No Nutritional Risk Poor oral hygiene: No service: No Sexual orientation: Straight/Heterosexual Meds Allergies Allergy/AdvReac Type Severity Reaction Status Date / Time ibuprofen Allergy Intermediate Stomach Verified 08/25/23 15:43 Upset penicillin V Allergy Intermediate rash Verified 08/25/23 15:43 Active Medications: Current Medications Acetaminophen (Acetaminophen 325 Mg Tablet) 650 mg PO Q6H PRN PRN Reason: Headache/Pain Mild Scale (1-3) Al Hydroxide/Mg Hydroxide (Magnesium Hydrox/Alum Hydrox 30 Ml Oral.Susp) 30 ml PO Q6H PRN PRN Reason: Heartburn/Nausea Albuterol Sulfate (Albuterol Sulfate 90 Mcg 8 Gm Inhaler) 2 puff INHALE Q4H PRN PRN Reason: Wheezing Last Admin: 12/15/23 21:43 Dose: 2 puff Albuterol Sulfate (Albuterol Sulfate (0.083%) 2.5 Mg/3 Ml Vial.Neb) 2.5 mg INHALE Q4H PRN PRN Reason: Shortness of Breath/Wheezing Albuterol/Ipratropium (Albuterol/Iprat 2.5/0.5mg 3 Ml Ampul.Neb) 3 ml INHALE TID PRN PRN Reason: wheezing Atorvastatin Calcium (Atorvastatin Calcium 40 Mg Tablet) 40 mg PO BEDTIME [facility] Last Admin: 12/15/23 20:46 Dose: 40 mg Buprenorphine/Naloxone (Buprenorphine/Naloxone 8/2 Mg Film) 1 film SUBLINGUAL DAILY [facility] Last Admin: 12/16/23 09:15 Dose: 1 film Clonazepam (Clonazepam 0.5 Mg Tablet) 0.5 mg PO BID PRN PRN Reason: anxiety Last Admin: 12/16/23 11:36 Dose: 0.5 mg Cyclobenzaprine HCl (Cyclobenzaprine Hcl 10 Mg Tablet) 10 mg PO TID PRN PRN Reason: back pain Last Admin: 12/16/23 11:36 Dose: 10 mg Ferrous Sulfate (Ferrous Sulfate 324 Mg Tablet.Dr) 324 mg PO BEDTIME [facility] Last Admin: 12/15/23 20:47 Dose: 324 mg Fluticasone/Vilanterol (Fluticasone/Vilanterol 200/25 Blst.W.Dev) 1 puff INHALE RDAILY [facility] Last Admin: 12/16/23 09:12 Dose: 1 puff Hydroxyzine HCl (Hydroxyzine Hcl 25 Mg Tablet) 25 mg PO Q6H PRN PRN Reason: Anxiety Last Admin: 12/16/23 01:12 Dose: 25 mg Magnesium Hydroxide (Milk Of Magnesia 30 Ml Oral.Susp) 30 ml PO DAILY PRN PRN Reason: Constipation Mirtazapine (Mirtazapine 30 Mg Tablet) 30 mg PO BEDTIME [facility] Last Admin: 12/15/23 20:47 Dose: 30 mg Nicotine (Nicotine 21 Mg Patch.Td24) 21 mg TRANSDERMA DAILY [facility] Last Admin: 12/16/23 09:11 Dose: 21 mg Nicotine Polacrilex (Nicotine Polacrilex 2 Mg Gum) 4 mg BUCCAL Q2H PRN PRN Reason: Nicotine Cravings Omeprazole (Omeprazole 20 Mg Capsule.Dr) 20 mg PO DAILY@0630 [facility] Last Admin: 12/16/23 09:14 Dose: 20 mg Quetiapine Fumarate (Quetiapine Fumarate 100 Mg Tablet) 100 mg PO BID@0900,1800 [facility] Last Admin: 12/16/23 09:14 Dose: 100 mg Quetiapine Fumarate (Quetiapine Fumarate 400 Mg Tablet) 400 mg PO BEDTIME [facility] Last Admin: 12/15/23 20:46 Dose: 400 mg Risperidone (Risperidone 1 Mg Tablet) 1 mg PO DAILY [facility] Last Admin: 12/16/23 09:14 Dose: 1 mg Risperidone (Risperidone 3 Mg Tablet) 3 mg PO BEDTIME [facility] Last Admin: 12/15/23 20:47 Dose: 3 mg Tamsulosin HCl (Tamsulosin Hcl 0.4 Mg Capsule) 0.8 mg PO DAILY [facility] Last Admin: 12/16/23 09:14 Dose: 0.8 mg Tiotropium [place] (Tiotropium [place] 2.5 Mcg 1 Puff/2.5 Mcg Mist.Inhal) 2 puff INHALE RDAILY [facility] Last Admin: 12/16/23 09:12 Dose: 2 puff Topiramate (Topiramate 25 Mg Tablet) 50 mg PO BEDTIME [facility] Last Admin: 12/15/23 20:46 Dose: 50 mg Trazodone HCl (Trazodone Hcl 50 Mg Tablet) 50 mg PO BEDTIME MRX1 PRN PRN Reason: Insomnia Last Admin: 12/16/23 01:12 Dose: 50 mg Venlafaxine HCl (Venlafaxine Hcl Er 150 Mg Cap.Er.24h) 150 mg PO DAILY [facility] Last Admin: 12/16/23 09:13 Dose: 150 mg Verapamil HCl (Verapamil Hcl Sr 120 Mg Tablet.Er) 120 mg PO DAILY [facility]; Protocol Last Admin: 12/16/23 09:21 Dose: 120 mg Home Medications ?Medication ?Instructions ?Recorded ?Confirmed ?Last Taken ?Type acetaminophen 325 mg tablet 650 mg PO Q6H PRN Headache/Pain 12/15/23 12/15/23 Unknown History (Tylenol) Mild Scale (1-3) clonazepam 0.5 mg tablet (Klonopin) 0.5 mg PO BID PRN anxiety 12/15/23 12/15/23 Unknown History risperidone 1 mg tablet (Risperdal) 1 mg PO DAILY 12/15/23 12/15/23 Unknown History risperidone 3 mg tablet (Risperdal) 3 mg PO BEDTIME 12/15/23 12/15/23 Unknown History Physical Exam 2 Vital Signs: Vital Signs: Last Vital Signs Temp 98.2 F 12/16/23 07:32 Pulse 116 H 12/16/23 09:21 Resp 16 12/16/23 07:32 BP 111/65 12/16/23 09:21 Pulse Ox 94 12/16/23 07:32 O2 Del Method Room Air 12/16/23 07:32 BMI result Body Mass Index 18.5 Const: General: no acute distress and alert Nutritional Appearance: not obese Orientation/consciousness: Other orientation findings ( oriented) HEENT: Head: Yes atraumatic Eyes: General: appearance normal, both eyes and all related structures S clerae: sclerae normal EOM: EOMs intact bilaterally Neck: Neck: Yes supple Lymphatic: no lymphadenopathy noted Resp: Effort & Inspection: normal respiratory effort and no use of accessory muscles Auscultation: clear to auscultation bilaterally Cardio: Rate: regular rate Rhythm: regular rhythm Heart sounds: no gallops, no murmurs and no rubs Skin: General skin exam: other ( warm) Extrem: General: No clubbing, No cyanosis and No edema Results Laboratory Findings 12/16/23 07:49 Abnormal lab findings: Abnormal Labs 12/16/23 07:49 Carbon Dioxide 30 H BUN 18 H ALT 45 H Total Protein 6.2 L Assessment and Plan (1) Lung mass: Status: Acute (2) COPD (chronic obstructive pulmonary disease): Status: Acute Plan Impression: 58-year-old gentleman with underlying COPD and poor compliance with follow-up visits now admitted to the psychiatric siu, noted to have right lower pulmonary mass. Recommendations: Overall would requiring outpatient workup, however secondary to poor compliance with outpatient visits, would recommend an IR guided biopsy of the right lower lobe mass with PET scan follow-up on outpatient basis. Procedures Date of Service Date of Service: 12/16/23
--- NOTE | 2023-12-16 12:41 | PM.EVENT ---
Event Note Date of Service: 12/16/23 Event Note: Consulted pulmonology who like patient to receive right lung biopsy on Monday12/18/2023 while inpatient as pt has poor history of outpatient follow-up. Will make patient NPO after Monday midnight. Time Spent With Patient Time: Total time managing care of this patient today ____ minutes.
--- NOTE | 2023-12-16 17:34 | PC.NURSE ---
Patient seen by hospitalist and reviewed by pulmonary, right lung biopsy on Monday12/18/2023 while inpatient. Pt is to be NPO Monday at midnight.
[2023-12-16 20:00] VITALS: BP 96/60; PULSE 100; RESP 18; TEMP 36.9; O2SAT 96
[2023-12-16] MEDS: Mirtazapine 15 MG TABLET 45 MG PO (20:31)
[2023-12-16] MEDS: Topiramate 25 MG TABLET 50 MG PO (20:31)
[2023-12-16] MEDS: Atorvastatin Calcium 40 MG TABLET PO (20:32)
[2023-12-16] MEDS: risperiDONE 2 MG TABLET 4 MG PO (20:32)
[2023-12-16] MEDS: QUEtiapine Fumarate 400 MG TABLET PO (20:33)
[2023-12-16] MEDS: Ferrous Sulfate 324 MG TABLET.DR PO (20:34)
[2023-12-16] MEDS: Zolpidem Tartrate 5 MG TABLET PO (21:14)
[2023-12-17 07:25] VITALS: BP 113/66; PULSE 103; RESP 16; TEMP 37.1; O2SAT 97
[2023-12-17] MEDS: Tamsulosin HCL 0.4 MG CAPSULE 0.8 MG PO (08:30)
[2023-12-17] MEDS: QUEtiapine Fumarate 100 MG TABLET PO ×2 (08:30→17:40)
[2023-12-17] MEDS: Buprenorphine/Naloxone 8/2 mg FILM 1 FILM SUBLINGUAL (08:30)
[2023-12-17] MEDS: Omeprazole 20 MG CAPSULE.DR PO (08:30)
[2023-12-17] MEDS: Venlafaxine HCl ER 150 MG CAP.ER.24H PO (08:30)
[2023-12-17] MEDS: Tiotropium Bromide 2.5 mcg 1 PUFF/2.5 MCG MIST.INHAL 2 PUFF INHALE (08:31)
[2023-12-17] MEDS: Fluticasone/Vilanterol 200/25 BLST.W.DEV 1 PUFF INHALE (08:32)
[2023-12-17] MEDS: Nicotine 21 MG PATCH.TD24 TRANSDERMA (08:37)
[2023-12-17] MEDS: VerapamiL HCL SR 120 MG TABLET.ER PO (08:40)
[2023-12-17] MEDS: clonazePAM 0.5 MG TABLET PO ×2 (08:48→21:19)
--- NOTE | 2023-12-17 11:13 | P.PNPSI_ITS ---
Subjective Subjective Date of Service: 12/17/23 Reason For Visit: Pulmonary mass Subjective Notes: Conditional Voluntary Interim History: Interviewed with [employer] audio hand stripper [id number]. met with patient. Discussed with nursing. Isolative, in room, poor self-care. Overall continues to feel depressed, hallucinations, poor sleep, no motivation suicidal thoughts. Anxious what the future might hold and feels unsure what he will be doing with his life. Aware that lung biopsy is scheduled for tomorrow inappropriate anxiety regarding same. Discussed medication changes just being made yesterday some time for effect. Medication Compliance: Yes Side effects from medications: No Attending Groups: No Review of Systems Acute medical concerns: No Review of Systems: Noted pulmonolgy consult: Impression: 58-year-old gentleman with underlying COPD and poor compliance with follow-up visits now admitted to the psychiatric siu, noted to have right lower pulmonary mass. Recommendations: Overall would requiring outpatient workup, however secondary to poor compliance with outpatient visits, would recommend an IR guided biopsy of the right lower lobe mass with PET scan follow-up on outpatient basis Lung Biopsy scheduled 12/18/23- NPO midnight Review of Systems Review of Systems Nothing acute since yesterday Mental Status Exam Mental Status Exam Patient Appearance: Disheveled Patient Orientation: Person, Place, Time and Situation Level of Consciousness: Lethargic Patient Behavior: Cooperative Mood Description: Depressed Affect Description: Depressed Patient Cognition Impaired: No Speech Pattern: Impoverished Memory Description: Intact Diagnostics Vital Signs (24Hr): Vital Signs - 24 hr 12/16/23 20:00 12/17/23 07:25 Temperature 98.5 F 98.8 F Pulse Rate 100 103 H Respiratory Rate 18 16 Blood Pressure 96/60 113/66 Pulse Oximetry 96 97 Oxygen Delivery Method Room Air Room Air BMI result Body Mass Index 18.5 Labs 12/16/23 07:49 Labs: Laboratory Results - last 48 hr 12/16/23 07:49 Sodium 140 Potassium 4.4 Chloride 102 Carbon Dioxide 30 H Anion Gap 12 BUN 18 H Creatinine 0.71 Estim Creat Clear Calc 76.5 Estimated GFR > 60 Fasting Glucose 95 Calcium 9.4 Total Bilirubin 0.2 AST 24 ALT 45 H Alkaline Phosphatase 74 Total Protein 6.2 L Albumin 3.5 Triglycerides 106 Cholesterol 149 LDL Cholesterol, Calc 75 HDL Cholesterol 53 Medications Medications Current Medications Acetaminophen (Acetaminophen 325 Mg Tablet) 650 mg PO Q6H PRN PRN Reason: Headache/Pain Mild Scale (1-3) Al Hydroxide/Mg Hydroxide (Magnesium Hydrox/Alum Hydrox 30 Ml Oral.Susp) 30 ml PO Q6H PRN PRN Reason: Heartburn/Nausea Albuterol Sulfate (Albuterol Sulfate 90 Mcg 8 Gm Inhaler) 2 puff INHALE Q4H PRN PRN Reason: Wheezing Last Admin: 12/15/23 21:43 Dose: 2 puff Albuterol Sulfate (Albuterol Sulfate (0.083%) 2.5 Mg/3 Ml Vial.Neb) 2.5 mg INHALE Q4H PRN PRN Reason: Shortness of Breath/Wheezing Albuterol/Ipratropium (Albuterol/Iprat 2.5/0.5mg 3 Ml Ampul.Neb) 3 ml INHALE TID PRN PRN Reason: wheezing Atorvastatin Calcium (Atorvastatin Calcium 40 Mg Tablet) 40 mg PO BEDTIME [facility] Last Admin: 12/16/23 20:32 Dose: 40 mg Buprenorphine/Naloxone (Buprenorphine/Naloxone 8/2 Mg Film) 1 film SUBLINGUAL DAILY [facility] Last Admin: 12/17/23 08:30 Dose: 1 film Clonazepam (Clonazepam 0.5 Mg Tablet) 0.5 mg PO BID PRN PRN Reason: anxiety Last Admin: 12/17/23 08:48 Dose: 0.5 mg Cyclobenzaprine HCl (Cyclobenzaprine Hcl 10 Mg Tablet) 10 mg PO TID PRN PRN Reason: back pain Last Admin: 12/16/23 20:33 Dose: 10 mg Ferrous Sulfate (Ferrous Sulfate 324 Mg Tablet.Dr) 324 mg PO BEDTIME [facility] Last Admin: 12/16/23 20:34 Dose: 324 mg Fluticasone/Vilanterol (Fluticasone/Vilanterol 200/25 Blst.W.Dev) 1 puff INHALE RDAILY [facility] Last Admin: 12/17/23 08:32 Dose: 1 puff Hydroxyzine HCl (Hydroxyzine Hcl 25 Mg Tablet) 25 mg PO Q6H PRN PRN Reason: Anxiety Last Admin: 12/16/23 01:12 Dose: 25 mg Magnesium Hydroxide (Milk Of Magnesia 30 Ml Oral.Susp) 30 ml PO DAILY PRN PRN Reason: Constipation Mirtazapine (Mirtazapine 15 Mg Tablet) 45 mg PO BEDTIME [facility] Last Admin: 12/16/23 20:31 Dose: 45 mg Nicotine (Nicotine 21 Mg Patch.Td24) 21 mg TRANSDERMA DAILY [facility] Last Admin: 12/17/23 08:37 Dose: 21 mg Nicotine Polacrilex (Nicotine Polacrilex 2 Mg Gum) 4 mg BUCCAL Q2H PRN PRN Reason: Nicotine Cravings Omeprazole (Omeprazole 20 Mg Capsule.Dr) 20 mg PO DAILY@0630 [facility] Last Admin: 12/17/23 08:30 Dose: 20 mg Quetiapine Fumarate (Quetiapine Fumarate 100 Mg Tablet) 100 mg PO BID@0900,1800 [facility] Last Admin: 12/17/23 08:30 Dose: 100 mg Quetiapine Fumarate (Quetiapine Fumarate 400 Mg Tablet) 400 mg PO BEDTIME [facility] Last Admin: 12/16/23 20:33 Dose: 400 mg Risperidone (Risperidone 2 Mg Tablet) 4 mg PO BEDTIME [facility] Last Admin: 12/16/23 20:32 Dose: 4 mg Tamsulosin HCl (Tamsulosin Hcl 0.4 Mg Capsule) 0.8 mg PO DAILY [facility] Last Admin: 12/17/23 08:30 Dose: 0.8 mg Tiotropium [place] (Tiotropium [place] 2.5 Mcg 1 Puff/2.5 Mcg Mist.Inhal) 2 puff INHALE RDAILY [facility] Last Admin: 12/17/23 08:31 Dose: 2 puff Topiramate (Topiramate 25 Mg Tablet) 50 mg PO BEDTIME [facility] Last Admin: 12/16/23 20:31 Dose: 50 mg Venlafaxine HCl (Venlafaxine Hcl Er 150 Mg Cap.Er.24h) 150 mg PO DAILY [facility] Last Admin: 12/17/23 08:30 Dose: 150 mg Verapamil HCl (Verapamil Hcl Sr 120 Mg Tablet.Er) 120 mg PO DAILY [facility]; Protocol Last Admin: 12/17/23 08:40 Dose: 120 mg Zolpidem Tartrate (Zolpidem Tartrate 5 Mg Tablet) 5 mg PO BEDTIME PRN PRN Reason: Insomnia Last Admin: 12/16/23 21:14 Dose: 5 mg Allergies Allergies Allergy/AdvReac Type Severity Reaction Status Date / Time ibuprofen Allergy Intermediate Stomach Verified 08/25/23 15:43 Upset penicillin V Allergy Intermediate rash Verified 08/25/23 15:43 Assessment & Plan Assessment & Plan (1) Major depressive disorder with psychotic features: Status: Acute Code(s): F32.3 - Major depressive disorder, single episode, severe with psychotic features Assessment and Plan: Presents with clear major depression and psychosis. This is also in the context of extended hospital stay (with Iv steroids, Abx, intubation, weight loss) and transfer having completed medical treatment. Will increase remeorn to 45mg, adjust risperdal to all bedtime and daily dose increase to 5mg. Maintain seroquel, suboxone, effexor, trazodone, ambien and klonopin 12/17/23: Lung Biopsy scheduled 12/18/23- NPO midnight Plan As per Hospitalist: #Recent RLL pneumonia (?post obstructive) with hypoxemic respiratory failure and lung mass -See HPI. Completed course abx, weaned from O2 -Pulmonary nodule seen on multiple Ct scans dating to 07/2023, has not yet undergone biopsy. Discussed with Dr. Gerber. Pulmonology consult for evaluation #Unintentional weight loss - has lost 12 pounds since last admission 1.5months ago -?r/t depression, concern for malignancy -pulm consult as above, recommend nutrition to follow. Add ensures #COPD -no exacerbation -continue maintenance inhalers, albuterol nebs prn Reason for continued inpatient stay Substantial Risk for: harm to self Time Spent With Patient Time: Total time managing care of this patient today ____ minutes.
[2023-12-17] MEDS: hydrOXYzine HCL 25 MG TABLET PO (13:54)
[2023-12-17 19:11] VITALS: PULSE 115; RESP 20; O2SAT 98
[2023-12-17] MEDS: Albuterol Sulfate 90 MCG 8 GM INHALER 2 PUFF INHALE (19:12)
[2023-12-17 20:00] VITALS: BP 99/56; PULSE 104; RESP 16; TEMP 37; O2SAT 96
[2023-12-17] MEDS: Mirtazapine 15 MG TABLET 45 MG PO (20:58)
[2023-12-17] MEDS: Atorvastatin Calcium 40 MG TABLET PO (20:59)
[2023-12-17] MEDS: Zolpidem Tartrate 5 MG TABLET PO (20:59)
[2023-12-17] MEDS: Acetaminophen 325 MG TABLET 650 MG PO (20:59)
[2023-12-17] MEDS: Topiramate 25 MG TABLET 50 MG PO (20:59)
[2023-12-17] MEDS: risperiDONE 2 MG TABLET 4 MG PO (21:00)
[2023-12-17] MEDS: Ferrous Sulfate 324 MG TABLET.DR PO (21:00)
[2023-12-17] MEDS: QUEtiapine Fumarate 400 MG TABLET PO (21:00)
[2023-12-18] MEDS: hydrOXYzine HCL 25 MG TABLET PO ×3 (00:16→20:21)
[2023-12-18 08:55] VITALS: BP 114/61; PULSE 100; RESP 18; TEMP 36.8; O2SAT 96
[2023-12-18] MEDS: Tamsulosin HCL 0.4 MG CAPSULE 0.8 MG PO (08:56)
[2023-12-18] MEDS: Nicotine 21 MG PATCH.TD24 TRANSDERMA (08:56)
[2023-12-18 08:57] VITALS: BP 114/61; PULSE 100
[2023-12-18] MEDS: Venlafaxine HCl ER 150 MG CAP.ER.24H PO (08:57)
[2023-12-18] MEDS: QUEtiapine Fumarate 100 MG TABLET PO ×2 (08:57→17:14)
[2023-12-18] MEDS: Omeprazole 20 MG CAPSULE.DR PO (08:57)
[2023-12-18] MEDS: VerapamiL HCL SR 120 MG TABLET.ER PO (08:57)
[2023-12-18] MEDS: Buprenorphine/Naloxone 8/2 mg FILM 1 FILM SUBLINGUAL (08:58)
[2023-12-18] MEDS: Fluticasone/Vilanterol 200/25 BLST.W.DEV 1 PUFF INHALE (08:58)
[2023-12-18] MEDS: Tiotropium Bromide 2.5 mcg 1 PUFF/2.5 MCG MIST.INHAL 2 PUFF INHALE (08:58)
[2023-12-18] MEDS: clonazePAM 0.5 MG TABLET PO ×2 (09:10→17:13)
[2023-12-18] MEDS: Cyclobenzaprine HCl 10 MG TABLET PO ×2 (09:10→20:22)
--- NOTE | 2023-12-18 10:13 | P.PNPSI_ITS ---
Subjective Subjective Date of Service: 12/18/23 Reason For Visit: Pulmonary mass Subjective Notes: Conditional Voluntary Interim History: Reviewed with Dr. Knapp. newcomer hostess present. Pt reports feeling bad today; pt stated, I don't feel good mentally. I'm hearing voices and seeing shadows. The voices call out my name loudly. I'm thinking of harming myself . Pt reports he is hoping the medications will work ; pt denies SI/HI. Awaiting biopsy procedure to be scheduled; pt aware. Medication Compliance: Yes Side effects from medications: No Attending Groups: Intermittent Review of Systems Constitutional: Reports as per HPI Eyes: Reports as per HPI Reports as per HPI Cardiovascular: Reports as per HPI Respiratory: Reports as per HPI Gastrointestinal: Reports as per HPI Genitourinary: Reports as per HPI Musculoskeletal: Reports as per HPI Skin/Breast: Reports as per HPI Reports as per HPI Psychiatric: Reports as per HPI Endocrine: Reports as per HPI Hematologic/Lymphatic: Reports as per HPI Allergic/Immunologic: Reports as per HPI Mental Status Exam Mental Status Exam Narrative: Pt is alert and oriented; behavior is cooperative and calm; dressed in casual attire; mood is described as bad ; eye contact appropriate; Speech is normal rate, volume and not pressured; thought process is organized and goal directed; Thought content is on tx; otherwise pertinent to relevant topics and without any delusional content, paranoid ideations or grandiosity; denies SI/HI. Pt reports thoughts of self harm. Pt reports auditory and visual hallucinations. Diagnostics Vital Signs (24Hr): Vital Signs - 24 hr 12/17/23 19:11 12/17/23 20:00 12/18/23 08:55 Temperature 98.6 F 98.2 F Pulse Rate 115 H 104 H 100 Respiratory Rate 20 16 18 Blood Pressure 99/56 L 114/61 Pulse Oximetry 98 96 96 Oxygen Delivery Method Room Air Room Air Room Air 12/18/23 08:57 Temperature Pulse Rate 100 Respiratory Rate Blood Pressure 114/61 Pulse Oximetry Oxygen Delivery Method BMI result Body Mass Index 18.5 Labs 12/16/23 07:49 Medications Medications Current Medications Acetaminophen (Acetaminophen 325 Mg Tablet) 650 mg PO Q6H PRN PRN Reason: Headache/Pain Mild Scale (1-3) Last Admin: 12/17/23 20:59 Dose: 650 mg Al Hydroxide/Mg Hydroxide (Magnesium Hydrox/Alum Hydrox 30 Ml Oral.Susp) 30 ml PO Q6H PRN PRN Reason: Heartburn/Nausea Albuterol Sulfate (Albuterol Sulfate 90 Mcg 8 Gm Inhaler) 2 puff INHALE Q4H PRN PRN Reason: Wheezing Last Admin: 12/17/23 19:12 Dose: 2 puff Albuterol Sulfate (Albuterol Sulfate (0.083%) 2.5 Mg/3 Ml Vial.Neb) 2.5 mg INHALE Q4H PRN PRN Reason: Shortness of Breath/Wheezing Albuterol/Ipratropium (Albuterol/Iprat 2.5/0.5mg 3 Ml Ampul.Neb) 3 ml INHALE TID PRN PRN Reason: wheezing Atorvastatin Calcium (Atorvastatin Calcium 40 Mg Tablet) 40 mg PO BEDTIME [facility] Last Admin: 12/17/23 20:59 Dose: 40 mg Buprenorphine/Naloxone (Buprenorphine/Naloxone 8/2 Mg Film) 1 film SUBLINGUAL DAILY [facility] Last Admin: 12/18/23 08:58 Dose: 1 film Clonazepam (Clonazepam 0.5 Mg Tablet) 0.5 mg PO BID PRN PRN Reason: anxiety Last Admin: 12/18/23 09:10 Dose: 0.5 mg Cyclobenzaprine HCl (Cyclobenzaprine Hcl 10 Mg Tablet) 10 mg PO TID PRN PRN Reason: back pain Last Admin: 12/18/23 09:10 Dose: 10 mg Ferrous Sulfate (Ferrous Sulfate 324 Mg Tablet.Dr) 324 mg PO BEDTIME [facility] Last Admin: 12/17/23 21:00 Dose: 324 mg Fluticasone/Vilanterol (Fluticasone/Vilanterol 200/25 Blst.W.Dev) 1 puff INHALE RDAILY [facility] Last Admin: 12/18/23 08:58 Dose: 1 puff Hydroxyzine HCl (Hydroxyzine Hcl 25 Mg Tablet) 25 mg PO Q6H PRN PRN Reason: Anxiety Last Admin: 12/18/23 00:16 Dose: 25 mg Magnesium Hydroxide (Milk Of Magnesia 30 Ml Oral.Susp) 30 ml PO DAILY PRN PRN Reason: Constipation Mirtazapine (Mirtazapine 15 Mg Tablet) 45 mg PO BEDTIME [facility] Last Admin: 12/17/23 20:58 Dose: 45 mg Nicotine (Nicotine 21 Mg Patch.Td24) 21 mg TRANSDERMA DAILY [facility] Last Admin: 12/18/23 08:56 Dose: 21 mg Nicotine Polacrilex (Nicotine Polacrilex 2 Mg Gum) 4 mg BUCCAL Q2H PRN PRN Reason: Nicotine Cravings Omeprazole (Omeprazole 20 Mg Capsule.Dr) 20 mg PO DAILY@0630 [facility] Last Admin: 12/18/23 08:57 Dose: 20 mg Quetiapine Fumarate (Quetiapine Fumarate 100 Mg Tablet) 100 mg PO BID@0900,1800 [facility] Last Admin: 12/18/23 08:57 Dose: 100 mg Quetiapine Fumarate (Quetiapine Fumarate 400 Mg Tablet) 400 mg PO BEDTIME [facility] Last Admin: 12/17/23 21:00 Dose: 400 mg Risperidone (Risperidone 2 Mg Tablet) 4 mg PO BEDTIME [facility] Last Admin: 12/17/23 21:00 Dose: 4 mg Tamsulosin HCl (Tamsulosin Hcl 0.4 Mg Capsule) 0.8 mg PO DAILY [facility] Last Admin: 12/18/23 08:56 Dose: 0.8 mg Tiotropium [place] (Tiotropium [place] 2.5 Mcg 1 Puff/2.5 Mcg Mist.Inhal) 2 puff INHALE RDAILY [facility] Last Admin: 12/18/23 08:58 Dose: 2 puff Topiramate (Topiramate 25 Mg Tablet) 50 mg PO BEDTIME [facility] Last Admin: 12/17/23 20:59 Dose: 50 mg Venlafaxine HCl (Venlafaxine Hcl Er 150 Mg Cap.Er.24h) 150 mg PO DAILY [facility] Last Admin: 12/18/23 08:57 Dose: 150 mg Verapamil HCl (Verapamil Hcl Sr 120 Mg Tablet.Er) 120 mg PO DAILY [facility]; Protocol Last Admin: 12/18/23 08:57 Dose: 120 mg Zolpidem Tartrate (Zolpidem Tartrate 5 Mg Tablet) 5 mg PO BEDTIME PRN PRN Reason: Insomnia Last Admin: 12/17/23 20:59 Dose: 5 mg Allergies Allergies Allergy/AdvReac Type Severity Reaction Status Date / Time ibuprofen Allergy Intermediate Stomach Verified 08/25/23 15:43 Upset penicillin V Allergy Intermediate rash Verified 08/25/23 15:43 Assessment & Plan Assessment & Plan (1) Major depressive disorder with psychotic features: Status: Acute Code(s): F32.3 - Major depressive disorder, single episode, severe with psychotic features Assessment and Plan: Presents with clear major depression and psychosis. This is also in the context of extended hospital stay (with Iv steroids, Abx, intubation, weight loss) and transfer having completed medical treatment. Will increase remeorn to 45mg, adjust risperdal to all bedtime and daily dose increase to 5mg. Maintain seroquel, suboxone, effexor, trazodone, ambien and klonopin 12/17/23: Lung Biopsy scheduled 12/18/23- NPO midnight 12/17: newcomer hostess present. Pt reports feeling bad today; pt stated, I don't feel good mentally. I'm hearing voices and seeing shadows. The voices call out my name loudly. I'm thinking of harming myself . Pt reports he is hoping the medications will work ; pt denies SI/HI. Awaiting biopsy procedure to be scheduled; pt aware. Plan As per Hospitalist: #Recent RLL pneumonia (?post obstructive) with hypoxemic respiratory failure and lung mass -See HPI. Completed course abx, weaned from O2 -Pulmonary nodule seen on multiple Ct scans dating to 07/2023, has not yet undergone biopsy. Discussed with Dr. Gerber. Pulmonology consult for evaluation #Unintentional weight loss - has lost 12 pounds since last admission 1.5months ago -?r/t depression, concern for malignancy -pulm consult as above, recommend nutrition to follow. Add ensures #COPD -no exacerbation -continue maintenance inhalers, albuterol nebs prn Patient educated on: diagnosis, medication risk/benefits and therapeutic strategies Informed Consent: understands Reason for continued inpatient stay Substantial Risk for: harm to self and med/psych decompensation Time Spent With Patient Time: Total time managing care of this patient today _20___ minutes.
--- NOTE | 2023-12-18 13:49 | PC.NURSE ---
Addendum entered by Tati Alvarez RN 12/19/23 15:22: Entered under wrong patient Original Note: Junior de AM labs, Troy Knapp MD made aware.
[2023-12-18 20:00] VITALS: BP 100/60; PULSE 97; RESP 16; TEMP 36.9; O2SAT 96
[2023-12-18] MEDS: risperiDONE 2 MG TABLET 4 MG PO (20:21)
[2023-12-18] MEDS: Mirtazapine 15 MG TABLET 45 MG PO (20:22)
[2023-12-18] MEDS: Atorvastatin Calcium 40 MG TABLET PO (20:22)
[2023-12-18] MEDS: Ferrous Sulfate 324 MG TABLET.DR PO (20:22)
[2023-12-18] MEDS: QUEtiapine Fumarate 400 MG TABLET PO (20:22)
[2023-12-18] MEDS: Topiramate 25 MG TABLET 50 MG PO (20:22)
[2023-12-18] MEDS: Zolpidem Tartrate 5 MG TABLET PO (20:26)
[2023-12-19 07:40] VITALS: BP 97/59; PULSE 89; RESP 14; TEMP 36.8; O2SAT 96
--- NOTE | 2023-12-19 08:56 | P.PNPSI_ITS ---
Subjective Subjective Date of Service: 12/19/23 Reason For Visit: Pulmonary mass Subjective Notes: Conditional Voluntary Interim History: Reviewed with Dr. Knapp. language interpreter present. Pt reports feeling same as yesterday today; pt stated, I'm starting to feel like I'm improving a little. I'm worried about the biopsy . Pt reports eating well. pt denies SI/HI. Continues to report auditory hallucinations of hearing his name called and visual hallucinations of shadows . Awaiting biopsy procedure to be scheduled; pt aware. Medication Compliance: Yes Side effects from medications: No Attending Groups: Intermittent Review of Systems Constitutional: Reports as per HPI Eyes: Reports as per HPI Reports as per HPI Cardiovascular: Reports as per HPI Respiratory: Reports as per HPI Gastrointestinal: Reports as per HPI Genitourinary: Reports as per HPI Musculoskeletal: Reports as per HPI Skin/Breast: Reports as per HPI Reports as per HPI Psychiatric: Reports as per HPI Endocrine: Reports as per HPI Hematologic/Lymphatic: Reports as per HPI Allergic/Immunologic: Reports as per HPI Mental Status Exam Mental Status Exam Narrative: Pt is alert and oriented; behavior is cooperative and calm; dressed in casual attire; mood is described as improving a little ; eye contact appropriate; Speech is normal rate, volume and not pressured; thought process is organized and goal directed; Thought content is on tx; otherwise pertinent to relevant topics and without any delusional content, paranoid ideations or grandiosity; denies SI/HI. Pt reports thoughts of self harm. Pt reports auditory and visual hallucinations. Diagnostics Vital Signs (24Hr): Vital Signs - 24 hr 12/18/23 08:57 12/18/23 20:00 12/19/23 07:40 Temperature 98.5 F 98.2 F Pulse Rate 100 97 89 Respiratory Rate 16 14 Blood Pressure 114/61 100/60 97/59 L Pulse Oximetry 96 96 Oxygen Delivery Method Room Air Room Air BMI result Body Mass Index 18.5 Labs 12/16/23 07:49 Medications Medications Current Medications Acetaminophen (Acetaminophen 325 Mg Tablet) 650 mg PO Q6H PRN PRN Reason: Headache/Pain Mild Scale (1-3) Last Admin: 12/17/23 20:59 Dose: 650 mg Al Hydroxide/Mg Hydroxide (Magnesium Hydrox/Alum Hydrox 30 Ml Oral.Susp) 30 ml PO Q6H PRN PRN Reason: Heartburn/Nausea Albuterol Sulfate (Albuterol Sulfate 90 Mcg 8 Gm Inhaler) 2 puff INHALE Q4H PRN PRN Reason: Wheezing Last Admin: 12/17/23 19:12 Dose: 2 puff Albuterol Sulfate (Albuterol Sulfate (0.083%) 2.5 Mg/3 Ml Vial.Neb) 2.5 mg INHALE Q4H PRN PRN Reason: Shortness of Breath/Wheezing Albuterol/Ipratropium (Albuterol/Iprat 2.5/0.5mg 3 Ml Ampul.Neb) 3 ml INHALE TID PRN PRN Reason: wheezing Atorvastatin Calcium (Atorvastatin Calcium 40 Mg Tablet) 40 mg PO BEDTIME [facility] Last Admin: 12/18/23 20:22 Dose: 40 mg Buprenorphine/Naloxone (Buprenorphine/Naloxone 8/2 Mg Film) 1 film SUBLINGUAL DAILY [facility] Last Admin: 12/18/23 08:58 Dose: 1 film Clonazepam (Clonazepam 0.5 Mg Tablet) 0.5 mg PO BID PRN PRN Reason: anxiety Last Admin: 12/18/23 17:13 Dose: 0.5 mg Cyclobenzaprine HCl (Cyclobenzaprine Hcl 10 Mg Tablet) 10 mg PO TID PRN PRN Reason: back pain Last Admin: 12/18/23 20:22 Dose: 10 mg Ferrous Sulfate (Ferrous Sulfate 324 Mg Tablet.Dr) 324 mg PO BEDTIME [facility] Last Admin: 12/18/23 20:22 Dose: 324 mg Fluticasone/Vilanterol (Fluticasone/Vilanterol 200/25 Blst.W.Dev) 1 puff INHALE RDAILY [facility] Last Admin: 12/18/23 08:58 Dose: 1 puff Hydroxyzine HCl (Hydroxyzine Hcl 25 Mg Tablet) 25 mg PO Q6H PRN PRN Reason: Anxiety Last Admin: 12/18/23 20:21 Dose: 25 mg Magnesium Hydroxide (Milk Of Magnesia 30 Ml Oral.Susp) 30 ml PO DAILY PRN PRN Reason: Constipation Mirtazapine (Mirtazapine 15 Mg Tablet) 45 mg PO BEDTIME [facility] Last Admin: 12/18/23 20:22 Dose: 45 mg Multi-Ingred Cream/Lotion/Oil/Oint (Mineral Oil/Petrolatum,White 106 Gm Tube) 1 appl TOPICAL BID [facility]; Protocol Last Admin: 12/18/23 21:56 Dose: Not Given Nicotine (Nicotine 21 Mg Patch.Td24) 21 mg TRANSDERMA DAILY [facility] Last Admin: 12/18/23 08:56 Dose: 21 mg Nicotine Polacrilex (Nicotine Polacrilex 2 Mg Gum) 4 mg BUCCAL Q2H PRN PRN Reason: Nicotine Cravings Omeprazole (Omeprazole 20 Mg Capsule.Dr) 20 mg PO DAILY@0630 [facility] Last Admin: 12/19/23 06:20 Dose: Not Given Quetiapine Fumarate (Quetiapine Fumarate 100 Mg Tablet) 100 mg PO BID@0900,1800 [facility] Last Admin: 12/18/23 17:14 Dose: 100 mg Quetiapine Fumarate (Quetiapine Fumarate 400 Mg Tablet) 400 mg PO BEDTIME [facility] Last Admin: 12/18/23 20:22 Dose: 400 mg Risperidone (Risperidone 2 Mg Tablet) 4 mg PO BEDTIME [facility] Last Admin: 12/18/23 20:21 Dose: 4 mg Tamsulosin HCl (Tamsulosin Hcl 0.4 Mg Capsule) 0.8 mg PO DAILY [facility] Last Admin: 12/18/23 08:56 Dose: 0.8 mg Tiotropium [place] (Tiotropium [place] 2.5 Mcg 1 Puff/2.5 Mcg Mist.Inhal) 2 puff INHALE RDAILY [facility] Last Admin: 12/18/23 08:58 Dose: 2 puff Topiramate (Topiramate 25 Mg Tablet) 50 mg PO BEDTIME [facility] Last Admin: 12/18/23 20:22 Dose: 50 mg Venlafaxine HCl (Venlafaxine Hcl Er 150 Mg Cap.Er.24h) 150 mg PO DAILY [facility] Last Admin: 12/18/23 08:57 Dose: 150 mg Verapamil HCl (Verapamil Hcl Sr 120 Mg Tablet.Er) 120 mg PO DAILY [facility]; Protocol Last Admin: 12/18/23 08:57 Dose: 120 mg Zolpidem Tartrate (Zolpidem Tartrate 5 Mg Tablet) 5 mg PO BEDTIME PRN PRN Reason: Insomnia Last Admin: 12/18/23 20:26 Dose: 5 mg Allergies Allergies Allergy/AdvReac Type Severity Reaction Status Date / Time ibuprofen Allergy Intermediate Stomach Verified 08/25/23 15:43 Upset penicillin V Allergy Intermediate rash Verified 08/25/23 15:43 Assessment & Plan Assessment & Plan (1) Major depressive disorder with psychotic features: Status: Acute Code(s): F32.3 - Major depressive disorder, single episode, severe with psychotic features Assessment and Plan: Presents with clear major depression and psychosis. This is also in the context of extended hospital stay (with Iv steroids, Abx, intubation, weight loss) and transfer having completed medical treatment. Will increase remeorn to 45mg, adjust risperdal to all bedtime and daily dose increase to 5mg. Maintain seroquel, suboxone, effexor, trazodone, ambien and klonopin 12/17/23: Lung Biopsy scheduled 12/18/23- NPO midnight 12/17: language interpreter present. Pt reports feeling bad today; pt stated, I don't feel good mentally. I'm hearing voices and seeing shadows. The voices call out my name loudly. I'm thinking of harming myself . Pt reports he is hoping the medications will work ; pt denies SI/HI. Awaiting biopsy procedure to be scheduled; pt aware. 12/18: Pt reports feeling same as yesterday today; pt stated, I'm starting to feel like I'm improving a little. I'm worried about the biopsy . Pt reports eating well. pt denies SI/HI. Continues to report auditory hallucinations of hearing his name called and visual hallucinations of shadows . Awaiting biopsy procedure to be scheduled; pt aware. Plan As per Hospitalist: #Recent RLL pneumonia (?post obstructive) with hypoxemic respiratory failure and lung mass -See HPI. Completed course abx, weaned from O2 -Pulmonary nodule seen on multiple Ct scans dating to 07/2023, has not yet undergone biopsy. Discussed with Dr. Gerber. Pulmonology consult for evaluation #Unintentional weight loss - has lost 12 pounds since last admission 1.5months ago -?r/t depression, concern for malignancy -pulm consult as above, recommend nutrition to follow. Add ensures #COPD -no exacerbation -continue maintenance inhalers, albuterol nebs prn Patient educated on: diagnosis and medication risk/benefits Informed Consent: understands Reason for continued inpatient stay Substantial Risk for: harm to self and med/psych decompensation Time Spent With Patient Time: Total time managing care of this patient today _20___ minutes.
[2023-12-19] MEDS: Fluticasone/Vilanterol 200/25 BLST.W.DEV 1 PUFF INHALE (09:16)
[2023-12-19] MEDS: Tiotropium Bromide 2.5 mcg 1 PUFF/2.5 MCG MIST.INHAL 2 PUFF INHALE (09:16)
[2023-12-19] MEDS: Nicotine 21 MG PATCH.TD24 TRANSDERMA (09:18)
[2023-12-19 09:20] VITALS: BP 101/67; PULSE 94
[2023-12-19] MEDS: VerapamiL HCL SR 120 MG TABLET.ER PO (09:20)
[2023-12-19] MEDS: Tamsulosin HCL 0.4 MG CAPSULE 0.8 MG PO (09:20)
[2023-12-19] MEDS: QUEtiapine Fumarate 100 MG TABLET PO ×2 (09:21→17:31)
[2023-12-19] MEDS: Venlafaxine HCl ER 150 MG CAP.ER.24H PO (09:21)
[2023-12-19] MEDS: Buprenorphine/Naloxone 8/2 mg FILM 1 FILM SUBLINGUAL (09:22)
[2023-12-19] MEDS: clonazePAM 0.5 MG TABLET PO ×2 (11:00→21:05)
[2023-12-19] MEDS: Mineral Oil/Petrolatum,White 106 GM Tube 1 APPL TOPICAL (12:14)
[2023-12-19] MEDS: hydrOXYzine HCL 25 MG TABLET PO ×2 (17:00→22:58)
[2023-12-19 20:00] VITALS: BP 96/60; PULSE 92; RESP 16; TEMP 36.6; O2SAT 97
[2023-12-19] MEDS: Topiramate 25 MG TABLET 50 MG PO (21:03)
[2023-12-19] MEDS: risperiDONE 2 MG TABLET 4 MG PO (21:03)
[2023-12-19] MEDS: Ferrous Sulfate 324 MG TABLET.DR PO (21:04)
[2023-12-19] MEDS: QUEtiapine Fumarate 400 MG TABLET PO (21:04)
[2023-12-19] MEDS: Atorvastatin Calcium 40 MG TABLET PO (21:04)
[2023-12-19] MEDS: Zolpidem Tartrate 5 MG TABLET PO (21:05)
[2023-12-19] MEDS: Cyclobenzaprine HCl 10 MG TABLET PO (21:05)
[2023-12-19] MEDS: Mirtazapine 15 MG TABLET 45 MG PO (21:06)
[2023-12-20] VITALS (9 sets, daily range): BP systolic 75–113; BP diastolic 53–75; PULSE 89–96; RESP 14–18; TEMP 36.8–37; O2SAT 95–98
[2023-12-20] MEDS: Venlafaxine HCl ER 150 MG CAP.ER.24H PO (08:31)
[2023-12-20] MEDS: Omeprazole 20 MG CAPSULE.DR PO (08:32)
[2023-12-20] MEDS: QUEtiapine Fumarate 100 MG TABLET PO ×2 (08:33→17:49)
[2023-12-20] MEDS: Tamsulosin HCL 0.4 MG CAPSULE 0.8 MG PO (08:33)
[2023-12-20] MEDS: Nicotine 21 MG PATCH.TD24 TRANSDERMA (08:35)
[2023-12-20] MEDS: Buprenorphine/Naloxone 8/2 mg FILM 1 FILM SUBLINGUAL (08:36)
[2023-12-20] MEDS: Tiotropium Bromide 2.5 mcg 1 PUFF/2.5 MCG MIST.INHAL 2 PUFF INHALE (08:39)
[2023-12-20] MEDS: Fluticasone/Vilanterol 200/25 BLST.W.DEV 1 PUFF INHALE (08:40)
[2023-12-20] MEDS: Acetaminophen 325 MG TABLET 650 MG PO (08:55)
[2023-12-20] MEDS: clonazePAM 0.5 MG TABLET PO ×2 (08:55→21:43)
--- NOTE | 2023-12-20 09:25 | HO.PSYCHPN ---
Subjective Subjective Date of Service: 12/20/23 Reason For Visit: Pulmonary mass Subjective Notes: Conditional Voluntary Interim History: Reviewed with Dr. Butt. mobility manager present. Pt reports feeling he feels he is starting to improve a little bit . He continues to report auditory hallucinations that are call his name. Pt reports decreased visual hallucinations. Pt stated he is having some thoughts about harming myself ; when asked what is making him feel this way, pt stated, I don't know why . pt denies SI/HI. Awaiting biopsy procedure to be scheduled; pt aware. Medication Compliance: Yes Side effects from medications: No Attending Groups: Intermittent Review of Systems Constitutional: Reports as per HPI Eyes: Reports as per HPI Reports as per HPI Cardiovascular: Reports as per HPI Respiratory: Reports as per HPI Gastrointestinal: Reports as per HPI Genitourinary: Reports as per HPI Musculoskeletal: Reports as per HPI Skin/Breast: Reports as per HPI Reports as per HPI Psychiatric: Reports as per HPI Endocrine: Reports as per HPI Hematologic/Lymphatic: Reports as per HPI Allergic/Immunologic: Reports as per HPI Mental Status Exam Mental Status Exam Narrative: Pt is alert and oriented; behavior is cooperative and calm; dressed in casual attire; mood is described as improving a little ; eye contact appropriate; Speech is normal rate, volume and not pressured; thought process is organized and goal directed; Thought content is on tx; otherwise pertinent to relevant topics and without any delusional content, paranoid ideations or grandiosity; denies SI/HI. Pt reports thoughts of self harm. Pt reports auditory and visual hallucinations. Diagnostics Vital Signs (24Hr): Vital Signs - 24 hr 12/19/23 20:00 12/20/23 07:51 Temperature 97.8 F 98.2 F Pulse Rate 92 89 Respiratory Rate 16 14 Blood Pressure 96/60 98/59 L Pulse Oximetry 97 98 Oxygen Delivery Method Room Air Room Air BMI result Body Mass Index 18.5 Labs 12/16/23 07:49 Medications Medications Current Medications Acetaminophen (Acetaminophen 325 Mg Tablet) 650 mg PO Q6H PRN PRN Reason: Headache/Pain Mild Scale (1-3) Last Admin: 12/20/23 08:55 Dose: 650 mg Al Hydroxide/Mg Hydroxide (Magnesium Hydrox/Alum Hydrox 30 Ml Oral.Susp) 30 ml PO Q6H PRN PRN Reason: Heartburn/Nausea Albuterol Sulfate (Albuterol Sulfate 90 Mcg 8 Gm Inhaler) 2 puff INHALE Q4H PRN PRN Reason: Wheezing Last Admin: 12/17/23 19:12 Dose: 2 puff Albuterol Sulfate (Albuterol Sulfate (0.083%) 2.5 Mg/3 Ml Vial.Neb) 2.5 mg INHALE Q4H PRN PRN Reason: Shortness of Breath/Wheezing Albuterol/Ipratropium (Albuterol/Iprat 2.5/0.5mg 3 Ml Ampul.Neb) 3 ml INHALE TID PRN PRN Reason: wheezing Atorvastatin Calcium (Atorvastatin Calcium 40 Mg Tablet) 40 mg PO BEDTIME [facility] Last Admin: 12/19/23 21:04 Dose: 40 mg Buprenorphine/Naloxone (Buprenorphine/Naloxone 8/2 Mg Film) 1 film SUBLINGUAL DAILY [facility] Last Admin: 12/20/23 08:36 Dose: 1 film Clonazepam (Clonazepam 0.5 Mg Tablet) 0.5 mg PO BID PRN PRN Reason: anxiety Last Admin: 12/20/23 08:55 Dose: 0.5 mg Cyclobenzaprine HCl (Cyclobenzaprine Hcl 10 Mg Tablet) 10 mg PO TID PRN PRN Reason: back pain Last Admin: 12/19/23 21:05 Dose: 10 mg Ferrous Sulfate (Ferrous Sulfate 324 Mg Tablet.Dr) 324 mg PO BEDTIME [facility] Last Admin: 12/19/23 21:04 Dose: 324 mg Fluticasone/Vilanterol (Fluticasone/Vilanterol 200/25 Blst.W.Dev) 1 puff INHALE RDAILY [facility] Last Admin: 12/20/23 08:40 Dose: 1 puff Hydroxyzine HCl (Hydroxyzine Hcl 25 Mg Tablet) 25 mg PO Q6H PRN PRN Reason: Anxiety Last Admin: 12/19/23 22:58 Dose: 25 mg Magnesium Hydroxide (Milk Of Magnesia 30 Ml Oral.Susp) 30 ml PO DAILY PRN PRN Reason: Constipation Mirtazapine (Mirtazapine 15 Mg Tablet) 45 mg PO BEDTIME [facility] Last Admin: 12/19/23 21:06 Dose: 45 mg Multi-Ingred Cream/Lotion/Oil/Oint (Mineral Oil/Petrolatum,White 106 Gm Tube) 1 appl TOPICAL BID [facility]; Protocol Last Admin: 12/19/23 21:31 Dose: Not Given Nicotine (Nicotine 21 Mg Patch.Td24) 21 mg TRANSDERMA DAILY [facility] Last Admin: 12/20/23 08:35 Dose: 21 mg Nicotine Polacrilex (Nicotine Polacrilex 2 Mg Gum) 4 mg BUCCAL Q2H PRN PRN Reason: Nicotine Cravings Omeprazole (Omeprazole 20 Mg Capsule.Dr) 20 mg PO DAILY@0630 [facility] Last Admin: 12/20/23 08:32 Dose: 20 mg Quetiapine Fumarate (Quetiapine Fumarate 100 Mg Tablet) 100 mg PO BID@0900,1800 [facility] Last Admin: 12/20/23 08:33 Dose: 100 mg Quetiapine Fumarate (Quetiapine Fumarate 400 Mg Tablet) 400 mg PO BEDTIME [facility] Last Admin: 12/19/23 21:04 Dose: 400 mg Risperidone (Risperidone 2 Mg Tablet) 4 mg PO BEDTIME [facility] Last Admin: 12/19/23 21:03 Dose: 4 mg Tamsulosin HCl (Tamsulosin Hcl 0.4 Mg Capsule) 0.8 mg PO DAILY [facility] Last Admin: 12/20/23 08:33 Dose: 0.8 mg Tiotropium [place] (Tiotropium [place] 2.5 Mcg 1 Puff/2.5 Mcg Mist.Inhal) 2 puff INHALE RDAILY [facility] Last Admin: 12/20/23 08:39 Dose: 2 puff Topiramate (Topiramate 25 Mg Tablet) 50 mg PO BEDTIME [facility] Last Admin: 12/19/23 21:03 Dose: 50 mg Venlafaxine HCl (Venlafaxine Hcl Er 150 Mg Cap.Er.24h) 150 mg PO DAILY [facility] Last Admin: 12/20/23 08:31 Dose: 150 mg Verapamil HCl (Verapamil Hcl Sr 120 Mg Tablet.Er) 120 mg PO DAILY [facility]; Protocol Last Admin: 12/19/23 09:20 Dose: 120 mg Zolpidem Tartrate (Zolpidem Tartrate 5 Mg Tablet) 5 mg PO BEDTIME PRN PRN Reason: Insomnia Last Admin: 12/19/23 21:05 Dose: 5 mg Allergies Allergies Allergy/AdvReac Type Severity Reaction Status Date / Time ibuprofen Allergy Intermediate Stomach Verified 08/25/23 15:43 Upset penicillin V Allergy Intermediate rash Verified 08/25/23 15:43 Assessment & Plan Assessment & Plan (1) Major depressive disorder with psychotic features: Status: Acute Code(s): F32.3 - Major depressive disorder, single episode, severe with psychotic features Assessment and Plan: Presents with clear major depression and psychosis. This is also in the context of extended hospital stay (with Iv steroids, Abx, intubation, weight loss) and transfer having completed medical treatment. Will increase remeorn to 45mg, adjust risperdal to all bedtime and daily dose increase to 5mg. Maintain seroquel, suboxone, effexor, trazodone, ambien and klonopin 12/17/23: Lung Biopsy scheduled 12/18/23- NPO midnight 12/17: mobility manager present. Pt reports feeling bad today; pt stated, I don't feel good mentally. I'm hearing voices and seeing shadows. The voices call out my name loudly. I'm thinking of harming myself . Pt reports he is hoping the medications will work ; pt denies SI/HI. Awaiting biopsy procedure to be scheduled; pt aware. 12/18: Pt reports feeling same as yesterday today; pt stated, I'm starting to feel like I'm improving a little. I'm worried about the biopsy . Pt reports eating well. pt denies SI/HI. Continues to report auditory hallucinations of hearing his name called and visual hallucinations of shadows . Awaiting biopsy procedure to be scheduled; pt aware. 12/19: Pt reports feeling he feels he is starting to improve a little bit . He continues to report auditory hallucinations that are call his name. Pt reports decreased visual hallucinations. Pt stated he is having some thoughts about harming myself ; when asked what is making him feel this way, pt stated, I don't know why . pt denies SI/HI. Awaiting biopsy procedure to be scheduled; pt aware. Plan As per Hospitalist: #Recent RLL pneumonia (?post obstructive) with hypoxemic respiratory failure and lung mass -See HPI. Completed course abx, weaned from O2 -Pulmonary nodule seen on multiple Ct scans dating to 07/2023, has not yet undergone biopsy. Discussed with Dr. Gerber. Pulmonology consult for evaluation #Unintentional weight loss - has lost 12 pounds since last admission 1.5months ago -?r/t depression, concern for malignancy -pulm consult as above, recommend nutrition to follow. Add ensures #COPD -no exacerbation -continue maintenance inhalers, albuterol nebs prn Patient educated on: diagnosis, medication risk/benefits and therapeutic strategies Informed Consent: understands Reason for continued inpatient stay Substantial Risk for: harm to self and med/psych decompensation Time Spent With Patient Time: Total time managing care of this patient today _20___ minutes.
--- NOTE | 2023-12-20 11:56 | PM.EVENT ---
Event Note Date of Service: 12/20/23 Event Note: patient dizzy with significant orthostatic to SBP 70s. improves when lying down dc verapamil flomax with parameters only ns 1L, then recheck Time Spent With Patient Time: Total time managing care of this patient today ____ minutes.
[2023-12-20] MEDS: 0.9 % Sodium Chloride 1,000 ML 999 ML IV ×2 (12:17→18:08)
[2023-12-20] MEDS: Mirtazapine 15 MG TABLET 45 MG PO (21:42)
[2023-12-20] MEDS: risperiDONE 2 MG TABLET 4 MG PO (21:43)
[2023-12-20] MEDS: Atorvastatin Calcium 40 MG TABLET PO (21:43)
[2023-12-20] MEDS: Cyclobenzaprine HCl 10 MG TABLET PO (21:44)
[2023-12-20] MEDS: Topiramate 25 MG TABLET 50 MG PO (21:44)
[2023-12-20] MEDS: QUEtiapine Fumarate 400 MG TABLET PO (21:44)
[2023-12-20] MEDS: Zolpidem Tartrate 5 MG TABLET PO (21:45)
[2023-12-20] MEDS: Ferrous Sulfate 324 MG TABLET.DR PO (21:45)
[2023-12-21] MEDS: 0.9 % Sodium Chloride Flush 3 ML SYRINGE IVFLUSH ×3 (00:16→15:59)
--- NOTE | 2023-12-21 00:30 | PC.NURSE ---
Pt declined MRI scan 12/20/23 @1955. Rad still needs to clear Pt history tomorrow. To try again tomorrow.
[2023-12-21] MEDS: Omeprazole 20 MG CAPSULE.DR PO (06:45)
[2023-12-21 07:00] VITALS: BMI 20.4
[2023-12-21 07:44] VITALS: BP 114/70; PULSE 96; RESP 16; TEMP 37.4; O2SAT 97
[2023-12-21] MEDS: Fluticasone/Vilanterol 200/25 BLST.W.DEV 1 PUFF INHALE (08:39)
[2023-12-21] MEDS: Tiotropium Bromide 2.5 mcg 1 PUFF/2.5 MCG MIST.INHAL 2 PUFF INHALE (08:39)
[2023-12-21] MEDS: Nicotine 21 MG PATCH.TD24 TRANSDERMA (08:40)
[2023-12-21] MEDS: QUEtiapine Fumarate 100 MG TABLET PO (08:41)
[2023-12-21] MEDS: Tamsulosin HCL 0.4 MG CAPSULE 0.8 MG PO (08:41)
[2023-12-21] MEDS: Venlafaxine HCl ER 150 MG CAP.ER.24H PO (08:42)
[2023-12-21] MEDS: Buprenorphine/Naloxone 8/2 mg FILM 1 FILM SUBLINGUAL (08:51)
[2023-12-21] MEDS: Acetaminophen 325 MG TABLET 650 MG PO ×2 (08:52→18:41)
[2023-12-21] MEDS: clonazePAM 0.5 MG TABLET PO ×2 (09:46→22:40)
--- NOTE | 2023-12-21 13:25 | P.PNPSI_ITS ---
Subjective Subjective Date of Service: 12/21/23 Reason For Visit: Pulmonary mass Subjective Notes: Conditional Voluntary Interim History: Reviewed with Dr. Butt. integrity specialist present. Pt reports feeling anxious about the biopsy and what's going to happen . Pt reports he refused the MRI yesterday d/t being scared ; pt stated, I told them I was too scared to do it but I will do it today if they ask . He continues to report auditory hallucinations that are calling his name. pt denies SI/HI/VH. Medication Compliance: Yes Side effects from medications: No Attending Groups: Yes Review of Systems Constitutional: Reports as per HPI Eyes: Reports as per HPI Reports as per HPI Cardiovascular: Reports as per HPI Respiratory: Reports as per HPI Gastrointestinal: Reports as per HPI Genitourinary: Reports as per HPI Musculoskeletal: Reports as per HPI Skin/Breast: Reports as per HPI Reports as per HPI Psychiatric: Reports as per HPI Endocrine: Reports as per HPI Hematologic/Lymphatic: Reports as per HPI Allergic/Immunologic: Reports as per HPI Mental Status Exam Mental Status Exam Narrative: Pt is alert and oriented; behavior is cooperative and calm; dressed in casual attire; mood is described as improving a little ; eye contact appropriate; Speech is normal rate, volume and not pressured; thought process is organized and goal directed; Thought content is on tx; otherwise pertinent to relevant topics and without any delusional content, paranoid ideations or grandiosity; denies SI/HI. Pt reports thoughts of self harm. Pt reports auditory and visual hallucinations. Diagnostics Vital Signs (24Hr): Vital Signs - 24 hr 12/20/23 16:36 12/20/23 16:37 12/20/23 16:38 Temperature Pulse Rate 90 91 92 Respiratory Rate Blood Pressure 105/69 102/64 85/58 L Pulse Oximetry Oxygen Delivery Method 12/20/23 20:00 12/21/23 07:44 Temperature 98.6 F 99.3 F Pulse Rate 91 96 Respiratory Rate 18 16 Blood Pressure 113/75 114/70 Pulse Oximetry 97 97 Oxygen Delivery Method Room Air Room Air BMI result Body Mass Index 18.5 Labs 12/16/23 07:49 Medications Medications Current Medications Acetaminophen (Acetaminophen 325 Mg Tablet) 650 mg PO Q6H PRN PRN Reason: Headache/Pain Mild Scale (1-3) Last Admin: 12/21/23 08:52 Dose: 650 mg Al Hydroxide/Mg Hydroxide (Magnesium Hydrox/Alum Hydrox 30 Ml Oral.Susp) 30 ml PO Q6H PRN PRN Reason: Heartburn/Nausea Albuterol Sulfate (Albuterol Sulfate 90 Mcg 8 Gm Inhaler) 2 puff INHALE Q4H PRN PRN Reason: Wheezing Last Admin: 12/17/23 19:12 Dose: 2 puff Albuterol Sulfate (Albuterol Sulfate (0.083%) 2.5 Mg/3 Ml Vial.Neb) 2.5 mg INHALE Q4H PRN PRN Reason: Shortness of Breath/Wheezing Albuterol/Ipratropium (Albuterol/Iprat 2.5/0.5mg 3 Ml Ampul.Neb) 3 ml INHALE TID PRN PRN Reason: wheezing Atorvastatin Calcium (Atorvastatin Calcium 40 Mg Tablet) 40 mg PO BEDTIME [facility] Last Admin: 12/20/23 21:43 Dose: 40 mg Buprenorphine/Naloxone (Buprenorphine/Naloxone 8/2 Mg Film) 1 film SUBLINGUAL DAILY [facility] Last Admin: 12/21/23 08:51 Dose: 1 film Clonazepam (Clonazepam 0.5 Mg Tablet) 0.5 mg PO BID PRN PRN Reason: anxiety Last Admin: 12/21/23 09:46 Dose: 0.5 mg Cyclobenzaprine HCl (Cyclobenzaprine Hcl 10 Mg Tablet) 10 mg PO TID PRN PRN Reason: back pain Last Admin: 12/20/23 21:44 Dose: 10 mg Ferrous Sulfate (Ferrous Sulfate 324 Mg Tablet.Dr) 324 mg PO BEDTIME [facility] Last Admin: 12/20/23 21:45 Dose: 324 mg Fluticasone/Vilanterol (Fluticasone/Vilanterol 200/25 Blst.W.Dev) 1 puff INHALE RDAILY [facility] Last Admin: 12/21/23 08:39 Dose: 1 puff Hydroxyzine HCl (Hydroxyzine Hcl 25 Mg Tablet) 25 mg PO Q6H PRN PRN Reason: Anxiety Last Admin: 12/19/23 22:58 Dose: 25 mg Magnesium Hydroxide (Milk Of Magnesia 30 Ml Oral.Susp) 30 ml PO DAILY PRN PRN Reason: Constipation Mirtazapine (Mirtazapine 15 Mg Tablet) 45 mg PO BEDTIME [facility] Last Admin: 12/20/23 21:42 Dose: 45 mg Multi-Ingred Cream/Lotion/Oil/Oint (Mineral Oil/Petrolatum,White 106 Gm Tube) 1 appl TOPICAL BID [facility]; Protocol Last Admin: 12/21/23 08:57 Dose: Not Given Nicotine (Nicotine 21 Mg Patch.Td24) 21 mg TRANSDERMA DAILY [facility] Last Admin: 12/21/23 08:40 Dose: 21 mg Nicotine Polacrilex (Nicotine Polacrilex 2 Mg Gum) 4 mg BUCCAL Q2H PRN PRN Reason: Nicotine Cravings Omeprazole (Omeprazole 20 Mg Capsule.Dr) 20 mg PO DAILY@0630 [facility] Last Admin: 12/21/23 06:45 Dose: 20 mg Quetiapine Fumarate (Quetiapine Fumarate 400 Mg Tablet) 400 mg PO BEDTIME [facility] Last Admin: 12/20/23 21:44 Dose: 400 mg Quetiapine Fumarate (Quetiapine Fumarate 50 Mg Tablet) 50 mg PO BID@0900,1800 [facility] Risperidone (Risperidone 2 Mg Tablet) 4 mg PO BEDTIME [facility] Last Admin: 12/20/23 21:43 Dose: 4 mg Sodium Chloride (0.9 % Sodium Chloride Flush 3 Ml Syringe) 3 ml IVFLUSH QSHIFT [facility] Last Admin: 12/21/23 08:46 Dose: 3 ml Tamsulosin HCl (Tamsulosin Hcl 0.4 Mg Capsule) 0.8 mg PO DAILY [facility] Last Admin: 12/21/23 08:41 Dose: 0.8 mg Tiotropium [place] (Tiotropium [place] 2.5 Mcg 1 Puff/2.5 Mcg Mist.Inhal) 2 puff INHALE RDAILY [facility] Last Admin: 12/21/23 08:39 Dose: 2 puff Topiramate (Topiramate 25 Mg Tablet) 50 mg PO BEDTIME [facility] Last Admin: 12/20/23 21:44 Dose: 50 mg Venlafaxine HCl (Venlafaxine Hcl Er 150 Mg Cap.Er.24h) 150 mg PO DAILY [facility] Last Admin: 12/21/23 08:42 Dose: 150 mg Zolpidem Tartrate (Zolpidem Tartrate 5 Mg Tablet) 5 mg PO BEDTIME PRN PRN Reason: Insomnia Last Admin: 12/20/23 21:45 Dose: 5 mg Allergies Allergies Allergy/AdvReac Type Severity Reaction Status Date / Time ibuprofen Allergy Intermediate Stomach Verified 08/25/23 15:43 Upset penicillin V Allergy Intermediate rash Verified 08/25/23 15:43 Assessment & Plan Assessment & Plan (1) Major depressive disorder with psychotic features: Status: Acute Code(s): F32.3 - Major depressive disorder, single episode, severe with psychotic features Assessment and Plan: Presents with clear major depression and psychosis. This is also in the context of extended hospital stay (with Iv steroids, Abx, intubation, weight loss) and transfer having completed medical treatment. Will increase remeorn to 45mg, adjust risperdal to all bedtime and daily dose increase to 5mg. Maintain seroquel, suboxone, effexor, trazodone, ambien and klonopin 12/17/23: Lung Biopsy scheduled 12/18/23- NPO midnight 12/17: integrity specialist present. Pt reports feeling bad today; pt stated, I don't feel good mentally. I'm hearing voices and seeing shadows. The voices call out my name loudly. I'm thinking of harming myself . Pt reports he is hoping the medications will work ; pt denies SI/HI. Awaiting biopsy procedure to be scheduled; pt aware. 12/18: Pt reports feeling same as yesterday today; pt stated, I'm starting to feel like I'm improving a little. I'm worried about the biopsy . Pt reports eating well. pt denies SI/HI. Continues to report auditory hallucinations of hearing his name called and visual hallucinations of shadows . Awaiting biopsy procedure to be scheduled; pt aware. 12/19: Pt reports feeling he feels he is starting to improve a little bit . He continues to report auditory hallucinations that are call his name. Pt reports decreased visual hallucinations. Pt stated he is having some thoughts about harming myself ; when asked what is making him feel this way, pt stated, I don't know why . pt denies SI/HI. Awaiting biopsy procedure to be scheduled; pt aware. 12/20: integrity specialist present. Pt reports feeling anxious about the biopsy and what's going to happen . Pt reports he refused the MRI yesterday d/t being scared ; pt stated, I told them I was too scared to do it but I will do it today if they ask . He continues to report auditory hallucinations that are calling his name. pt denies SI/HI/VH. Plan As per Hospitalist: #Recent RLL pneumonia (?post obstructive) with hypoxemic respiratory failure and lung mass -See HPI. Completed course abx, weaned from O2 -Pulmonary nodule seen on multiple Ct scans dating to 07/2023, has not yet undergone biopsy. Discussed with Dr. Gerber. Pulmonology consult for evaluation #Unintentional weight loss - has lost 12 pounds since last admission 1.5months ago -?r/t depression, concern for malignancy -pulm consult as above, recommend nutrition to follow. Add ensures #COPD -no exacerbation -continue maintenance inhalers, albuterol nebs prn Patient educated on: diagnosis, medication risk/benefits and therapeutic strategies Informed Consent: understands Reason for continued inpatient stay Substantial Risk for: med/psych decompensation Time Spent With Patient Time: Total time managing care of this patient today _20___ minutes.
[2023-12-21] MEDS: hydrOXYzine HCL 25 MG TABLET PO ×2 (15:58→22:40)
[2023-12-21] MEDS: gadobutroL 7.5 ML VIAL IVPUSH (18:31)
[2023-12-21] MEDS: QUEtiapine Fumarate 50 MG TABLET PO (18:41)
[2023-12-21 20:00] VITALS: BP 120/76; PULSE 88; RESP 16; TEMP 37; O2SAT 96
[2023-12-21] MEDS: QUEtiapine Fumarate 400 MG TABLET PO (22:39)
[2023-12-21] MEDS: Cyclobenzaprine HCl 10 MG TABLET PO (22:39)
[2023-12-21] MEDS: Topiramate 25 MG TABLET 50 MG PO (22:39)
[2023-12-21] MEDS: Mirtazapine 15 MG TABLET 45 MG PO (22:39)
[2023-12-21] MEDS: Atorvastatin Calcium 40 MG TABLET PO (22:40)
[2023-12-21] MEDS: Zolpidem Tartrate 5 MG TABLET PO (22:40)
[2023-12-21] MEDS: risperiDONE 2 MG TABLET 4 MG PO (22:40)
[2023-12-21] MEDS: Ferrous Sulfate 324 MG TABLET.DR PO (22:40)
[2023-12-22] MEDS: Omeprazole 20 MG CAPSULE.DR PO (06:31)
[2023-12-22 07:25] VITALS: BP 110/57; PULSE 87; RESP 16; TEMP 37.1; O2SAT 96
[2023-12-22 07:35] VITALS: BP 100/67; PULSE 98; RESP 14; TEMP 36.8; O2SAT 96
[2023-12-22] MEDS: Tiotropium Bromide 2.5 mcg 1 PUFF/2.5 MCG MIST.INHAL 2 PUFF INHALE (08:50)
[2023-12-22] MEDS: Fluticasone/Vilanterol 200/25 BLST.W.DEV 1 PUFF INHALE (08:52)
[2023-12-22] MEDS: Nicotine 21 MG PATCH.TD24 TRANSDERMA (08:53)
[2023-12-22] MEDS: QUEtiapine Fumarate 50 MG TABLET PO ×2 (08:54→18:31)
[2023-12-22] MEDS: Venlafaxine HCl ER 150 MG CAP.ER.24H PO (08:54)
[2023-12-22] MEDS: Tamsulosin HCL 0.4 MG CAPSULE 0.8 MG PO (08:55)
[2023-12-22] MEDS: Acetaminophen 325 MG TABLET 650 MG PO (09:01)
[2023-12-22] MEDS: Buprenorphine/Naloxone 8/2 mg FILM 1 FILM SUBLINGUAL (09:12)
[2023-12-22] MEDS: clonazePAM 0.5 MG TABLET PO ×2 (11:50→21:14)
--- NOTE | 2023-12-22 13:08 | P.PNPSI_ITS ---
Subjective Subjective Date of Service: 12/22/23 Reason For Visit: Pulmonary mass Subjective Notes: Conditional Voluntary Interim History: Reviewed with Dr. Butt. forestry consultant present. Pt reports he feels his depression is going up and down but feels he is improving. He continues to report visual hallucinations during the day of shadows and auditory hallucinations at night of people saying my name . Pt denies SI/HI. Medication Compliance: Yes Side effects from medications: No Attending Groups: Yes Review of Systems Constitutional: Reports as per HPI Eyes: Reports as per HPI Reports as per HPI Cardiovascular: Reports as per HPI Respiratory: Reports as per HPI Gastrointestinal: Reports as per HPI Genitourinary: Reports as per HPI Musculoskeletal: Reports as per HPI Skin/Breast: Reports as per HPI Reports as per HPI Psychiatric: Reports as per HPI Endocrine: Reports as per HPI Hematologic/Lymphatic: Reports as per HPI Allergic/Immunologic: Reports as per HPI Mental Status Exam Mental Status Exam Narrative: Pt is alert and oriented; behavior is cooperative and calm; dressed in casual attire; mood is described as improving ; eye contact appropriate; Speech is normal rate, volume and not pressured; thought process is organized and goal directed; Thought content is on tx; otherwise pertinent to relevant topics and without any delusional content, paranoid ideations or grandiosity; denies SI/HI. Pt reports auditory and visual hallucinations. Diagnostics Vital Signs (24Hr): Vital Signs - 24 hr 12/21/23 20:00 12/22/23 07:25 Temperature 98.6 F 98.7 F Pulse Rate 88 87 Respiratory Rate 16 16 Blood Pressure 120/76 110/57 L Pulse Oximetry 96 96 Oxygen Delivery Method Room Air Room Air BMI result Body Mass Index 20.4 Labs 12/16/23 07:49 Imaging Radiology Impressions: ITS Impressions Brain MRI 12/21/23 18:30 IMPRESSION: No evidence of intracranial metastatic disease. No acute process. Minimal scattered white matter signal changes which may be due to chronic microangiopathy. [id number] right sphenoid sinus mucosal thickening. Medications Medications Current Medications Acetaminophen (Acetaminophen 325 Mg Tablet) 650 mg PO Q6H PRN PRN Reason: Headache/Pain Mild Scale (1-3) Last Admin: 12/22/23 09:01 Dose: 650 mg Al Hydroxide/Mg Hydroxide (Magnesium Hydrox/Alum Hydrox 30 Ml Oral.Susp) 30 ml PO Q6H PRN PRN Reason: Heartburn/Nausea Albuterol Sulfate (Albuterol Sulfate 90 Mcg 8 Gm Inhaler) 2 puff INHALE Q4H PRN PRN Reason: Wheezing Last Admin: 12/17/23 19:12 Dose: 2 puff Albuterol Sulfate (Albuterol Sulfate (0.083%) 2.5 Mg/3 Ml Vial.Neb) 2.5 mg INHALE Q4H PRN PRN Reason: Shortness of Breath/Wheezing Albuterol/Ipratropium (Albuterol/Iprat 2.5/0.5mg 3 Ml Ampul.Neb) 3 ml INHALE TID PRN PRN Reason: wheezing Atorvastatin Calcium (Atorvastatin Calcium 40 Mg Tablet) 40 mg PO BEDTIME [facility] Last Admin: 12/21/23 22:40 Dose: 40 mg Buprenorphine/Naloxone (Buprenorphine/Naloxone 8/2 Mg Film) 1 film SUBLINGUAL DAILY [facility] Last Admin: 12/22/23 09:12 Dose: 1 film Clonazepam (Clonazepam 0.5 Mg Tablet) 0.5 mg PO BID PRN PRN Reason: anxiety Last Admin: 12/22/23 11:50 Dose: 0.5 mg Cyclobenzaprine HCl (Cyclobenzaprine Hcl 10 Mg Tablet) 10 mg PO TID PRN PRN Reason: back pain Last Admin: 12/21/23 22:39 Dose: 10 mg Ferrous Sulfate (Ferrous Sulfate 324 Mg Tablet.Dr) 324 mg PO BEDTIME [facility] Last Admin: 12/21/23 22:40 Dose: 324 mg Fluticasone/Vilanterol (Fluticasone/Vilanterol 200/25 Blst.W.Dev) 1 puff INHALE RDAILY [facility] Last Admin: 12/22/23 08:52 Dose: 1 puff Hydroxyzine HCl (Hydroxyzine Hcl 25 Mg Tablet) 25 mg PO Q6H PRN PRN Reason: Anxiety Last Admin: 12/21/23 22:40 Dose: 25 mg Magnesium Hydroxide (Milk Of Magnesia 30 Ml Oral.Susp) 30 ml PO DAILY PRN PRN Reason: Constipation Mirtazapine (Mirtazapine 15 Mg Tablet) 45 mg PO BEDTIME [facility] Last Admin: 12/21/23 22:39 Dose: 45 mg Nicotine (Nicotine 21 Mg Patch.Td24) 21 mg TRANSDERMA DAILY [facility] Last Admin: 12/22/23 08:53 Dose: 21 mg Nicotine Polacrilex (Nicotine Polacrilex 2 Mg Gum) 4 mg BUCCAL Q2H PRN PRN Reason: Nicotine Cravings Omeprazole (Omeprazole 20 Mg Capsule.Dr) 20 mg PO DAILY@0630 [facility] Last Admin: 12/22/23 06:31 Dose: 20 mg Quetiapine Fumarate (Quetiapine Fumarate 400 Mg Tablet) 400 mg PO BEDTIME [facility] Last Admin: 12/21/23 22:39 Dose: 400 mg Quetiapine Fumarate (Quetiapine Fumarate 50 Mg Tablet) 50 mg PO BID@0900,1800 [facility] Last Admin: 12/22/23 08:54 Dose: 50 mg Risperidone (Risperidone 2 Mg Tablet) 4 mg PO BEDTIME [facility] Last Admin: 12/21/23 22:40 Dose: 4 mg Tamsulosin HCl (Tamsulosin Hcl 0.4 Mg Capsule) 0.8 mg PO DAILY [facility] Last Admin: 12/22/23 08:55 Dose: 0.8 mg Tiotropium [place] (Tiotropium [place] 2.5 Mcg 1 Puff/2.5 Mcg Mist.Inhal) 2 puff INHALE RDAILY [facility] Last Admin: 12/22/23 08:50 Dose: 2 puff Topiramate (Topiramate 25 Mg Tablet) 50 mg PO BEDTIME [facility] Last Admin: 12/21/23 22:39 Dose: 50 mg Venlafaxine HCl (Venlafaxine Hcl Er 150 Mg Cap.Er.24h) 150 mg PO DAILY [facility] Last Admin: 12/22/23 08:54 Dose: 150 mg Zolpidem Tartrate (Zolpidem Tartrate 5 Mg Tablet) 5 mg PO BEDTIME PRN PRN Reason: Insomnia Last Admin: 12/21/23 22:40 Dose: 5 mg Allergies Allergies Allergy/AdvReac Type Severity Reaction Status Date / Time ibuprofen Allergy Intermediate Stomach Verified 08/25/23 15:43 Upset penicillin V Allergy Intermediate rash Verified 08/25/23 15:43 Assessment & Plan Assessment & Plan (1) Major depressive disorder with psychotic features: Status: Acute Code(s): F32.3 - Major depressive disorder, single episode, severe with psychotic features Assessment and Plan: Presents with clear major depression and psychosis. This is also in the context of extended hospital stay (with Iv steroids, Abx, intubation, weight loss) and transfer having completed medical treatment. Will increase remeorn to 45mg, adjust risperdal to all bedtime and daily dose increase to 5mg. Maintain seroquel, suboxone, effexor, trazodone, ambien and klonopin 12/17/23: Lung Biopsy scheduled 12/18/23- NPO midnight 12/17: forestry consultant present. Pt reports feeling bad today; pt stated, I don't feel good mentally. I'm hearing voices and seeing shadows. The voices call out my name loudly. I'm thinking of harming myself . Pt reports he is hoping the medications will work ; pt denies SI/HI. Awaiting biopsy procedure to be scheduled; pt aware. 12/18: Pt reports feeling same as yesterday today; pt stated, I'm starting to feel like I'm improving a little. I'm worried about the biopsy . Pt reports eating well. pt denies SI/HI. Continues to report auditory hallucinations of hearing his name called and visual hallucinations of shadows . Awaiting biopsy procedure to be scheduled; pt aware. 12/19: Pt reports feeling he feels he is starting to improve a little bit . He continues to report auditory hallucinations that are call his name. Pt reports decreased visual hallucinations. Pt stated he is having some thoughts about harming myself ; when asked what is making him feel this way, pt stated, I don't know why . pt denies SI/HI. Awaiting biopsy procedure to be scheduled; pt aware. 12/20: forestry consultant present. Pt reports feeling anxious about the biopsy and what's going to happen . Pt reports he refused the MRI yesterday d/t being scared ; pt stated, I told them I was too scared to do it but I will do it today if they ask . He continues to report auditory hallucinations that are calling his name. pt denies SI/HI/VH. 12/21: Pt reports he feels his depression is going up and down but feels he is improving. He continues to report visual hallucinations during the day of shadows and auditory hallucinations at night of people saying my name . Pt denies SI/HI. continue current tx plan. Plan As per Hospitalist: #Recent RLL pneumonia (?post obstructive) with hypoxemic respiratory failure and lung mass -See HPI. Completed course abx, weaned from O2 -Pulmonary nodule seen on multiple Ct scans dating to 07/2023, has not yet undergone biopsy. Discussed with Dr. Gerber. Pulmonology consult for evaluation #Unintentional weight loss - has lost 12 pounds since last admission 1.5months ago -?r/t depression, concern for malignancy -pulm consult as above, recommend nutrition to follow. Add ensures #COPD -no exacerbation -continue maintenance inhalers, albuterol nebs prn Patient educated on: diagnosis, medication risk/benefits and therapeutic strategies Informed Consent: understands Reason for continued inpatient stay Substantial Risk for: med/psych decompensation Time Spent With Patient Time: Total time managing care of this patient today _20___ minutes.
[2023-12-22 20:02] VITALS: BP 96/57; PULSE 98; RESP 16; TEMP 37.1; O2SAT 95
[2023-12-22] MEDS: risperiDONE 2 MG TABLET 4 MG PO (21:14)
[2023-12-22] MEDS: Mirtazapine 15 MG TABLET 45 MG PO (21:14)
[2023-12-22] MEDS: Topiramate 25 MG TABLET 50 MG PO (21:14)
[2023-12-22] MEDS: Ferrous Sulfate 324 MG TABLET.DR PO (21:14)
[2023-12-22] MEDS: Zolpidem Tartrate 5 MG TABLET PO (21:14)
[2023-12-22] MEDS: Atorvastatin Calcium 40 MG TABLET PO (21:14)
[2023-12-22] MEDS: QUEtiapine Fumarate 400 MG TABLET PO (21:14)
[2023-12-22] MEDS: Cyclobenzaprine HCl 10 MG TABLET PO (21:15)
[2023-12-23 00:35] VITALS: BP 119/71; PULSE 98
[2023-12-23] MEDS: Acetaminophen 325 MG TABLET 650 MG PO (00:37)
[2023-12-23] MEDS: hydrOXYzine HCL 25 MG TABLET PO (00:37)
[2023-12-23 07:36] VITALS: BP 108/68; PULSE 89; RESP 16; TEMP 36.9; O2SAT 98
[2023-12-23] MEDS: Tiotropium Bromide 2.5 mcg 1 PUFF/2.5 MCG MIST.INHAL 2 PUFF INHALE (11:01)
[2023-12-23] MEDS: Fluticasone/Vilanterol 200/25 BLST.W.DEV 1 PUFF INHALE (11:01)
[2023-12-23] MEDS: Nicotine 21 MG PATCH.TD24 TRANSDERMA (11:02)
[2023-12-23] MEDS: QUEtiapine Fumarate 50 MG TABLET PO ×2 (11:02→17:32)
[2023-12-23] MEDS: Tamsulosin HCL 0.4 MG CAPSULE 0.8 MG PO (11:02)
[2023-12-23] MEDS: Buprenorphine/Naloxone 8/2 mg FILM 1 FILM SUBLINGUAL (11:02)
[2023-12-23] MEDS: Omeprazole 20 MG CAPSULE.DR PO (11:02)
[2023-12-23] MEDS: Venlafaxine HCl ER 150 MG CAP.ER.24H PO (11:02)
[2023-12-23] MEDS: clonazePAM 0.5 MG TABLET PO ×2 (12:37→20:55)
--- NOTE | 2023-12-23 16:35 | P.PNPSI_ITS ---
Subjective Subjective Date of Service: 12/23/23 Reason For Visit: Pulmonary mass Interim History: calm, cooperative. c/o depression, says he thought he was going to be given IV fluids. says he cannot drink because his stomach is bloated. per staff, denies depression, endorses anxiety. +KENNA. MARTINES. tylenol was helpful. took PRNs of flexeril, klonopin, ambien last night. slept 8 hours. Mental Status Exam Mental Status Exam Narrative: Pt is alert and oriented; behavior is cooperative and calm; dressed in casual attire; mood is described as depressed ; eye contact poor; Speech is decr rate, volume and not pressured; thought process is organized and goal directed; Thought content is on tx; otherwise pertinent to relevant topics and without any delusional content, paranoid ideations or grandiosity; no SI/HI/AVH expressed. Diagnostics Vital Signs (24Hr): Vital Signs - 24 hr 12/22/23 20:02 12/23/23 00:35 12/23/23 07:36 Temperature 98.8 F 98.5 F Pulse Rate 98 98 89 Respiratory Rate 16 16 Blood Pressure 96/57 L 119/71 108/68 Pulse Oximetry 95 98 Oxygen Delivery Method Room Air Room Air BMI result Body Mass Index 20.4 Labs 12/16/23 07:49 Imaging Radiology Impressions: ITS Impressions Brain MRI 12/21/23 18:30 IMPRESSION: No evidence of intracranial metastatic disease. No acute process. Minimal scattered white matter signal changes which may be due to chronic microangiopathy. [id number] right sphenoid sinus mucosal thickening. Medications Medications Current Medications Acetaminophen (Acetaminophen 325 Mg Tablet) 650 mg PO Q6H PRN PRN Reason: Headache/Pain Mild Scale (1-3) Last Admin: 12/23/23 00:37 Dose: 650 mg Al Hydroxide/Mg Hydroxide (Magnesium Hydrox/Alum Hydrox 30 Ml Oral.Susp) 30 ml PO Q6H PRN PRN Reason: Heartburn/Nausea Albuterol Sulfate (Albuterol Sulfate 90 Mcg 8 Gm Inhaler) 2 puff INHALE Q4H PRN PRN Reason: Wheezing Last Admin: 12/17/23 19:12 Dose: 2 puff Atorvastatin Calcium (Atorvastatin Calcium 40 Mg Tablet) 40 mg PO BEDTIME [facility] Last Admin: 12/22/23 21:14 Dose: 40 mg Buprenorphine/Naloxone (Buprenorphine/Naloxone 8/2 Mg Film) 1 film SUBLINGUAL DAILY [facility] [place] Last Admin: 12/23/23 11:02 Dose: 1 film Clonazepam (Clonazepam 0.5 Mg Tablet) 0.5 mg PO BID PRN PRN Reason: anxiety Last Admin: 12/23/23 12:37 Dose: 0.5 mg Cyclobenzaprine HCl (Cyclobenzaprine Hcl 10 Mg Tablet) 10 mg PO TID PRN PRN Reason: back pain Last Admin: 12/22/23 21:15 Dose: 10 mg Ferrous Sulfate (Ferrous Sulfate 324 Mg Tablet.Dr) 324 mg PO BEDTIME [facility] [place] Last Admin: 12/22/23 21:14 Dose: 324 mg Fluticasone/Vilanterol (Fluticasone/Vilanterol 200/25 Blst.W.Dev) 1 puff INHALE RDAILY [facility] [place] Last Admin: 12/23/23 11:01 Dose: 1 puff Hydroxyzine HCl (Hydroxyzine Hcl 25 Mg Tablet) 25 mg PO Q6H PRN PRN Reason: Anxiety Last Admin: 12/23/23 00:37 Dose: 25 mg Magnesium Hydroxide (Milk Of Magnesia 30 Ml Oral.Susp) 30 ml PO DAILY PRN PRN Reason: Constipation Mirtazapine (Mirtazapine 15 Mg Tablet) 45 mg PO BEDTIME [facility] [place] Last Admin: 12/22/23 21:14 Dose: 45 mg Nicotine (Nicotine 21 Mg Patch.Td24) 21 mg TRANSDERMA DAILY [facility] [place] Last Admin: 12/23/23 11:02 Dose: 21 mg Nicotine Polacrilex (Nicotine Polacrilex 2 Mg Gum) 4 mg BUCCAL Q2H PRN PRN Reason: Nicotine Cravings Omeprazole (Omeprazole 20 Mg Capsule.Dr) 20 mg PO DAILY@0630 [facility] [place] Last Admin: 12/23/23 11:02 Dose: 20 mg Quetiapine Fumarate (Quetiapine Fumarate 400 Mg Tablet) 400 mg PO BEDTIME [facility] [place] Last Admin: 12/22/23 21:14 Dose: 400 mg Quetiapine Fumarate (Quetiapine Fumarate 50 Mg Tablet) 50 mg PO BID@0900,1800 [facility] [place] Last Admin: 12/23/23 11:02 Dose: 50 mg Risperidone (Risperidone 2 Mg Tablet) 4 mg PO BEDTIME [facility] [place] Last Admin: 12/22/23 21:14 Dose: 4 mg Tamsulosin HCl (Tamsulosin Hcl 0.4 Mg Capsule) 0.8 mg PO DAILY [facility] [place] Last Admin: 12/23/23 11:02 Dose: 0.8 mg Tiotropium [place] (Tiotropium [place] 2.5 Mcg 1 Puff/2.5 Mcg Mist.Inhal) 2 puff INHALE RDAILY [facility] [place] Last Admin: 12/23/23 11:01 Dose: 2 puff Topiramate (Topiramate 25 Mg Tablet) 50 mg PO BEDTIME [facility] [place] Last Admin: 12/22/23 21:14 Dose: 50 mg Venlafaxine HCl (Venlafaxine Hcl Er 150 Mg Cap.Er.24h) 150 mg PO DAILY [facility] [place] Last Admin: 12/23/23 11:02 Dose: 150 mg Zolpidem Tartrate (Zolpidem Tartrate 5 Mg Tablet) 5 mg PO BEDTIME PRN PRN Reason: Insomnia Last Admin: 12/22/23 21:14 Dose: 5 mg Allergies Allergies Allergy/AdvReac Type Severity Reaction Status Date / Time ibuprofen Allergy Intermediate Stomach Verified 08/25/23 15:43 Upset penicillin V Allergy Intermediate rash Verified 08/25/23 15:43 Assessment & Plan Assessment & Plan (1) Major depressive disorder with psychotic features: Status: Acute Code(s): F32.3 - Major depressive disorder, single episode, severe with psychotic features Assessment and Plan: Presents with clear major depression and psychosis. This is also in the context of extended hospital stay (with Iv steroids, Abx, intubation, weight loss) and transfer having completed medical treatment. Will increase remeorn to 45mg, adjust risperdal to all bedtime and daily dose increase to 5mg. Maintain seroquel, suboxone, effexor, trazodone, ambien and klonopin 12/17/23: Lung Biopsy scheduled 12/18/23- NPO midnight 12/17: paraprofessional interpreter present. Pt reports feeling bad today; pt stated, I don't feel good mentally. I'm hearing voices and seeing shadows. The voices call out my name loudly. I'm thinking of harming myself . Pt reports he is hoping the medications will work ; pt denies SI/HI. Awaiting biopsy procedure to be scheduled; pt aware. 12/18: Pt reports feeling same as yesterday today; pt stated, I'm starting to feel like I'm improving a little. I'm worried about the biopsy . Pt reports eating well. pt denies SI/HI. Continues to report auditory hallucinations of hearing his name called and visual hallucinations of shadows . Awaiting biopsy procedure to be scheduled; pt aware. 12/19: Pt reports feeling he feels he is starting to improve a little bit . He continues to report auditory hallucinations that are call his name. Pt reports decreased visual hallucinations. Pt stated he is having some thoughts about harming myself ; when asked what is making him feel this way, pt stated, I don't know why . pt denies SI/HI. Awaiting biopsy procedure to be scheduled; pt aware. 12/20: paraprofessional interpreter present. Pt reports feeling anxious about the biopsy and what's going to happen . Pt reports he refused the MRI yesterday d/t being scared ; pt stated, I told them I was too scared to do it but I will do it today if they ask . He continues to report auditory hallucinations that are calling his name. pt denies SI/HI/VH. 12/21: Pt reports he feels his depression is going up and down but feels he is improving. He continues to report visual hallucinations during the day of shadows and auditory hallucinations at night of people saying my name . Pt denies SI/HI. continue current tx plan. 12/22: no change in presentation, continue current mgmt. Plan As per Hospitalist: #Recent RLL pneumonia (?post obstructive) with hypoxemic respiratory failure and lung mass -See HPI. Completed course abx, weaned from O2 -Pulmonary nodule seen on multiple Ct scans dating to 07/2023, has not yet undergone biopsy. Discussed with Dr. Gerber. Pulmonology consult for evaluation #Unintentional weight loss - has lost 12 pounds since last admission 1.5months ago -?r/t depression, concern for malignancy -pulm consult as above, recommend nutrition to follow. Add ensures #COPD -no exacerbation -continue maintenance inhalers, albuterol nebs prn Reason for continued inpatient stay Substantial Risk for: inability to function and rapid decompensation Time Spent With Patient Time: Total time managing care of this patient today ____ minutes.
[2023-12-23] MEDS: Albuterol Sulfate 90 MCG 8 GM INHALER 2 PUFF INHALE (16:45)
[2023-12-23 19:50] VITALS: BP 109/68; PULSE 103; RESP 18; TEMP 37; O2SAT 97
[2023-12-23] MEDS: Zolpidem Tartrate 5 MG TABLET PO (20:54)
[2023-12-23] MEDS: Cyclobenzaprine HCl 10 MG TABLET PO (20:55)
[2023-12-23] MEDS: Atorvastatin Calcium 40 MG TABLET PO (20:55)
[2023-12-23] MEDS: risperiDONE 2 MG TABLET 4 MG PO (20:55)
[2023-12-23] MEDS: Mirtazapine 15 MG TABLET 45 MG PO (20:55)
[2023-12-23] MEDS: QUEtiapine Fumarate 400 MG TABLET PO (20:55)
[2023-12-23] MEDS: Ferrous Sulfate 324 MG TABLET.DR PO (20:55)
[2023-12-23] MEDS: Topiramate 25 MG TABLET 50 MG PO (20:55)
[2023-12-24 07:35] VITALS: BP 111/62; PULSE 86; RESP 12; TEMP 37.3; O2SAT 97
[2023-12-24 08:00] VITALS: BP 111/62; PULSE 86; RESP 18; TEMP 37.3; O2SAT 97
[2023-12-24] MEDS: Tamsulosin HCL 0.4 MG CAPSULE 0.8 MG PO (10:04)
[2023-12-24] MEDS: Venlafaxine HCl ER 150 MG CAP.ER.24H PO (10:04)
[2023-12-24] MEDS: QUEtiapine Fumarate 50 MG TABLET PO ×2 (10:04→18:17)
[2023-12-24] MEDS: Omeprazole 20 MG CAPSULE.DR PO (10:04)
[2023-12-24] MEDS: Tiotropium Bromide 2.5 mcg 1 PUFF/2.5 MCG MIST.INHAL 2 PUFF INHALE (10:05)
[2023-12-24] MEDS: Fluticasone/Vilanterol 200/25 BLST.W.DEV 1 PUFF INHALE (10:05)
[2023-12-24] MEDS: Buprenorphine/Naloxone 8/2 mg FILM 1 FILM SUBLINGUAL (10:05)
[2023-12-24] MEDS: Nicotine 21 MG PATCH.TD24 TRANSDERMA (10:05)
[2023-12-24] MEDS: clonazePAM 0.5 MG TABLET PO ×2 (12:26→23:20)
--- NOTE | 2023-12-24 15:05 | P.PNPSI_ITS ---
Subjective Subjective Date of Service: 12/24/23 Reason For Visit: Pulmonary mass Interim History: depressed, anxious. concerned about Bx. a little better today, though, due to a visit from his brother. per staff, withdrawn, guarded. c/o poor sleep. eating OK. brighter on eves. Mental Status Exam Mental Status Exam Narrative: Pt is alert and oriented; behavior is cooperative and calm; dressed in casual attire; mood is described as depressed ; eye contact poor; Speech is decr rate, volume and not pressured; thought process is organized and goal directed; Thought content is on tx; otherwise pertinent to relevant topics and without any delusional content, paranoid ideations or grandiosity; no SI/HI/AVH expressed. Diagnostics Vital Signs (24Hr): Vital Signs - 24 hr 12/23/23 19:50 12/24/23 07:35 12/24/23 08:00 Temperature 98.6 F 99.2 F 99.2 F Pulse Rate 103 H 86 86 Respiratory Rate 18 12 18 Blood Pressure 109/68 111/62 111/62 Pulse Oximetry 97 97 97 Oxygen Delivery Method Room Air Room Air Room Air BMI result Body Mass Index 20.4 Labs 12/16/23 07:49 Imaging Radiology Impressions: ITS Impressions Brain MRI 12/21/23 18:30 IMPRESSION: No evidence of intracranial metastatic disease. No acute process. Minimal scattered white matter signal changes which may be due to chronic microangiopathy. [id number] right sphenoid sinus mucosal thickening. Medications Medications Current Medications Acetaminophen (Acetaminophen 325 Mg Tablet) 650 mg PO Q6H PRN PRN Reason: Headache/Pain Mild Scale (1-3) Last Admin: 12/23/23 00:37 Dose: 650 mg Al Hydroxide/Mg Hydroxide (Magnesium Hydrox/Alum Hydrox 30 Ml Oral.Susp) 30 ml PO Q6H PRN PRN Reason: Heartburn/Nausea Albuterol Sulfate (Albuterol Sulfate 90 Mcg 8 Gm Inhaler) 2 puff INHALE Q4H PRN PRN Reason: Wheezing Last Admin: 12/23/23 16:45 Dose: 2 puff Atorvastatin Calcium (Atorvastatin Calcium 40 Mg Tablet) 40 mg PO BEDTIME [facility] Last Admin: 12/23/23 20:55 Dose: 40 mg Buprenorphine/Naloxone (Buprenorphine/Naloxone 8/2 Mg Film) 1 film SUBLINGUAL DAILY [facility] Last Admin: 12/24/23 10:05 Dose: 1 film Clonazepam (Clonazepam 0.5 Mg Tablet) 0.5 mg PO BID PRN PRN Reason: anxiety Last Admin: 12/24/23 12:26 Dose: 0.5 mg Cyclobenzaprine HCl (Cyclobenzaprine Hcl 10 Mg Tablet) 10 mg PO TID PRN PRN Reason: back pain Last Admin: 12/23/23 20:55 Dose: 10 mg Ferrous Sulfate (Ferrous Sulfate 324 Mg Tablet.) 324 mg PO BEDTIME [facility] Last Admin: 12/23/23 20:55 Dose: 324 mg Fluticasone/Vilanterol (Fluticasone/Vilanterol 200/25 Blst.W.Dev) 1 puff INHALE RDAILY [facility] Last Admin: 12/24/23 10:05 Dose: 1 puff Hydroxyzine HCl (Hydroxyzine Hcl 25 Mg Tablet) 25 mg PO Q6H PRN PRN Reason: Anxiety Last Admin: 12/23/23 00:37 Dose: 25 mg Magnesium Hydroxide (Milk Of Magnesia 30 Ml Oral.Susp) 30 ml PO DAILY PRN PRN Reason: Constipation Mirtazapine (Mirtazapine 15 Mg Tablet) 45 mg PO BEDTIME [facility] Last Admin: 12/23/23 20:55 Dose: 45 mg Nicotine (Nicotine 21 Mg Patch.Td24) 21 mg TRANSDERMA DAILY [facility] Last Admin: 12/24/23 10:05 Dose: 21 mg Nicotine Polacrilex (Nicotine Polacrilex 2 Mg Gum) 4 mg BUCCAL Q2H PRN PRN Reason: Nicotine Cravings Omeprazole (Omeprazole 20 Mg Capsule.) 20 mg PO DAILY@0630 [facility] Last Admin: 12/24/23 10:04 Dose: 20 mg Quetiapine Fumarate (Quetiapine Fumarate 400 Mg Tablet) 400 mg PO BEDTIME [facility] Last Admin: 12/23/23 20:55 Dose: 400 mg Quetiapine Fumarate (Quetiapine Fumarate 50 Mg Tablet) 50 mg PO BID@0900,1800 [facility] Last Admin: 12/24/23 10:04 Dose: 50 mg Risperidone (Risperidone 2 Mg Tablet) 4 mg PO BEDTIME [facility] Last Admin: 12/23/23 20:55 Dose: 4 mg Tamsulosin HCl (Tamsulosin Hcl 0.4 Mg Capsule) 0.8 mg PO DAILY [facility] Last Admin: 12/24/23 10:04 Dose: 0.8 mg Tiotropium Perkins (Tiotropium Perkins 2.5 Mcg 1 Puff/2.5 Mcg Mist.Inhal) 2 puff INHALE RDAILY [facility] Last Admin: 12/24/23 10:05 Dose: 2 puff Topiramate (Topiramate 25 Mg Tablet) 50 mg PO BEDTIME [facility] Last Admin: 12/23/23 20:55 Dose: 50 mg Venlafaxine HCl (Venlafaxine Hcl Er 150 Mg Cap.Er.24h) 150 mg PO DAILY [facility] Last Admin: 12/24/23 10:04 Dose: 150 mg Zolpidem Tartrate (Zolpidem Tartrate 5 Mg Tablet) 5 mg PO BEDTIME PRN PRN Reason: Insomnia Last Admin: 12/23/23 20:54 Dose: 5 mg Allergies Allergies Allergy/AdvReac Type Severity Reaction Status Date / Time ibuprofen Allergy Intermediate Stomach Verified 08/25/23 15:43 Upset penicillin V Allergy Intermediate rash Verified 08/25/23 15:43 Assessment & Plan Assessment & Plan (1) Major depressive disorder with psychotic features: Status: Acute Code(s): F32.3 - Major depressive disorder, single episode, severe with psychotic features Assessment and Plan: Presents with clear major depression and psychosis. This is also in the context of extended hospital stay (with Iv steroids, Abx, intubation, weight loss) and transfer having completed medical treatment. Will increase remeorn to 45mg, adjust risperdal to all bedtime and daily dose increase to 5mg. Maintain seroquel, suboxone, effexor, trazodone, ambien and klonopin 12/17/23: Lung Biopsy scheduled 12/18/23- NPO midnight 12/17: photo finish photographer present. Pt reports feeling bad today; pt stated, I don't feel good mentally. I'm hearing voices and seeing shadows. The voices call out my name loudly. I'm thinking of harming myself . Pt reports he is hoping the medications will work ; pt denies SI/HI. Awaiting biopsy procedure to be scheduled; pt aware. 12/18: Pt reports feeling same as yesterday today; pt stated, I'm starting to feel like I'm improving a little. I'm worried about the biopsy . Pt reports eating well. pt denies SI/HI. Continues to report auditory hallucinations of hearing his name called and visual hallucinations of shadows . Awaiting biopsy procedure to be scheduled; pt aware. 12/19: Pt reports feeling he feels he is starting to improve a little bit . He continues to report auditory hallucinations that are call his name. Pt reports decreased visual hallucinations. Pt stated he is having some thoughts about harming myself ; when asked what is making him feel this way, pt stated, I don't know why . pt denies SI/HI. Awaiting biopsy procedure to be scheduled; pt aware. 12/20: photo finish photographer present. Pt reports feeling anxious about the biopsy and what's going to happen . Pt reports he refused the MRI yesterday d/t being scared ; pt stated, I told them I was too scared to do it but I will do it today if they ask . He continues to report auditory hallucinations that are calling his name. pt denies SI/HI/VH. 12/21: Pt reports he feels his depression is going up and down but feels he is improving. He continues to report visual hallucinations during the day of shadows and auditory hallucinations at night of people saying my name . Pt denies SI/HI. continue current tx plan. 12/22: no change in presentation, continue current mgmt. 12/23: a little better today due to visit from brother. otherwise still depressed. anxious re Bx. continue current mgmt. Plan As per Hospitalist: #Recent RLL pneumonia (?post obstructive) with hypoxemic respiratory failure and lung mass -See HPI. Completed course abx, weaned from O2 -Pulmonary nodule seen on multiple Ct scans dating to 07/2023, has not yet undergone biopsy. Discussed with Dr. Gerber. Pulmonology consult for evaluation #Unintentional weight loss - has lost 12 pounds since last admission 1.5months ago -?r/t depression, concern for malignancy -pulm consult as above, recommend nutrition to follow. Add ensures #COPD -no exacerbation -continue maintenance inhalers, albuterol nebs prn Reason for continued inpatient stay Substantial Risk for: inability to function Time Spent With Patient Time: Total time managing care of this patient today ____ minutes.
[2023-12-24 20:00] VITALS: BP 115/64; PULSE 93; RESP 16; TEMP 37; O2SAT 99
[2023-12-24] MEDS: Mirtazapine 15 MG TABLET 45 MG PO (21:03)
[2023-12-24] MEDS: QUEtiapine Fumarate 400 MG TABLET PO (21:04)
[2023-12-24] MEDS: Topiramate 25 MG TABLET 50 MG PO (21:04)
[2023-12-24] MEDS: Ferrous Sulfate 324 MG TABLET.DR PO (21:04)
[2023-12-24] MEDS: Cyclobenzaprine HCl 10 MG TABLET PO (21:05)
[2023-12-24] MEDS: Atorvastatin Calcium 40 MG TABLET PO (21:05)
[2023-12-24] MEDS: risperiDONE 2 MG TABLET 4 MG PO (21:05)
[2023-12-24] MEDS: Zolpidem Tartrate 5 MG TABLET PO (21:06)
[2023-12-24] MEDS: Acetaminophen 325 MG TABLET 650 MG PO (23:20)
--- NOTE | 2023-12-24 23:23 | PC.NURSE ---
Augustin given Tylenol PO prn for back pain 3, also was given Klonopin PO prn for moderate anxiety.
[2023-12-25 08:00] VITALS: BP 99/67; PULSE 93; RESP 16; TEMP 37.1; O2SAT 96
[2023-12-25] MEDS: Omeprazole 20 MG CAPSULE.DR PO (09:15)
[2023-12-25] MEDS: Venlafaxine HCl ER 150 MG CAP.ER.24H PO (09:15)
[2023-12-25] MEDS: Tamsulosin HCL 0.4 MG CAPSULE 0.8 MG PO (09:16)
[2023-12-25] MEDS: Fluticasone/Vilanterol 200/25 BLST.W.DEV 1 PUFF INHALE (09:16)
[2023-12-25] MEDS: QUEtiapine Fumarate 50 MG TABLET PO ×2 (09:16→18:12)
[2023-12-25] MEDS: Buprenorphine/Naloxone 8/2 mg FILM 1 FILM SUBLINGUAL (09:17)
[2023-12-25] MEDS: Tiotropium Bromide 2.5 mcg 1 PUFF/2.5 MCG MIST.INHAL 2 PUFF INHALE (09:22)
[2023-12-25] MEDS: Nicotine 21 MG PATCH.TD24 TRANSDERMA (09:44)
[2023-12-25] MEDS: hydrOXYzine HCL 25 MG TABLET PO (09:47)
--- NOTE | 2023-12-25 11:07 | P.PNPSI_ITS ---
Subjective Subjective Date of Service: 12/25/23 Reason For Visit: Pulmonary mass Subjective Notes: Conditional Voluntary Interim History: Reviewed with Dr. Butt. cook larder present. Pt reports feeling anxious today; pt stated, I'm feeling anxious about the procedure tomorrow. I had a hard time sleeping because I kept thinking about it . Pt continues to report AH/VH but states they have gotten better . Pt denies SI/HI; pt stated, I want to live for my kids and grandkids . Pt is scheduled to have biopsy tomorrow; pt aware. Medication Compliance: Yes Side effects from medications: No Attending Groups: Yes Review of Systems Constitutional: Reports as per HPI Eyes: Reports as per HPI Reports as per HPI Cardiovascular: Reports as per HPI Respiratory: Reports as per HPI Gastrointestinal: Reports as per HPI Genitourinary: Reports as per HPI Musculoskeletal: Reports as per HPI Skin/Breast: Reports as per HPI Reports as per HPI Psychiatric: Reports as per HPI Endocrine: Reports as per HPI Hematologic/Lymphatic: Reports as per HPI Allergic/Immunologic: Reports as per HPI Mental Status Exam Mental Status Exam Narrative: Pt is alert and oriented; behavior is cooperative and calm; dressed in casual attire; mood is described as anxious ; appropriate eye contact ; Speech is normal rate, volume and not pressured; thought process is organized; Thought content is on tx; otherwise pertinent to relevant topics and without any delusional content, paranoid ideations or grandiosity; denies SI/HI. He reports AH/VH that have improved. Diagnostics Vital Signs (24Hr): Vital Signs - 24 hr 12/24/23 20:00 12/25/23 08:00 Temperature 98.6 F 98.7 F Pulse Rate 93 93 Respiratory Rate 16 16 Blood Pressure 115/64 99/67 Pulse Oximetry 99 96 Oxygen Delivery Method Room Air Room Air BMI result Body Mass Index 20.4 Labs 12/16/23 07:49 Imaging Radiology Impressions: ITS Impressions Brain MRI 12/21/23 18:30 IMPRESSION: No evidence of intracranial metastatic disease. No acute process. Minimal scattered white matter signal changes which may be due to chronic microangiopathy. [id number] right sphenoid sinus mucosal thickening. Medications Medications Current Medications Acetaminophen (Acetaminophen 325 Mg Tablet) 650 mg PO Q6H PRN PRN Reason: Headache/Pain Mild Scale (1-3) Last Admin: 12/24/23 23:20 Dose: 650 mg Al Hydroxide/Mg Hydroxide (Magnesium Hydrox/Alum Hydrox 30 Ml Oral.Susp) 30 ml PO Q6H PRN PRN Reason: Heartburn/Nausea Albuterol Sulfate (Albuterol Sulfate 90 Mcg 8 Gm Inhaler) 2 puff INHALE Q4H PRN PRN Reason: Wheezing Last Admin: 12/23/23 16:45 Dose: 2 puff Atorvastatin Calcium (Atorvastatin Calcium 40 Mg Tablet) 40 mg PO BEDTIME [facility] Last Admin: 12/24/23 21:05 Dose: 40 mg Buprenorphine/Naloxone (Buprenorphine/Naloxone 8/2 Mg Film) 1 film SUBLINGUAL DAILY [facility] Last Admin: 12/25/23 09:17 Dose: 1 film Clonazepam (Clonazepam 0.5 Mg Tablet) 0.5 mg PO BID PRN PRN Reason: anxiety Last Admin: 12/24/23 23:20 Dose: 0.5 mg Cyclobenzaprine HCl (Cyclobenzaprine Hcl 10 Mg Tablet) 10 mg PO TID PRN PRN Reason: back pain Last Admin: 12/24/23 21:05 Dose: 10 mg Ferrous Sulfate (Ferrous Sulfate 324 Mg Tablet.) 324 mg PO BEDTIME [facility] Last Admin: 12/24/23 21:04 Dose: 324 mg Fluticasone/Vilanterol (Fluticasone/Vilanterol 200/25 Blst.W.Dev) 1 puff INHALE RDAILY [facility] Last Admin: 12/25/23 09:16 Dose: 1 puff Hydroxyzine HCl (Hydroxyzine Hcl 25 Mg Tablet) 25 mg PO Q6H PRN PRN Reason: Anxiety Last Admin: 12/25/23 09:47 Dose: 25 mg Magnesium Hydroxide (Milk Of Magnesia 30 Ml Oral.Susp) 30 ml PO DAILY PRN PRN Reason: Constipation Mirtazapine (Mirtazapine 15 Mg Tablet) 45 mg PO BEDTIME [facility] Last Admin: 12/24/23 21:03 Dose: 45 mg Nicotine (Nicotine 21 Mg Patch.Td24) 21 mg TRANSDERMA DAILY [facility] Last Admin: 12/25/23 09:44 Dose: 21 mg Nicotine Polacrilex (Nicotine Polacrilex 2 Mg Gum) 4 mg BUCCAL Q2H PRN PRN Reason: Nicotine Cravings Omeprazole (Omeprazole 20 Mg Capsule.Dr) 20 mg PO DAILY@0630 [facility] Last Admin: 12/25/23 09:15 Dose: 20 mg Quetiapine Fumarate (Quetiapine Fumarate 400 Mg Tablet) 400 mg PO BEDTIME [facility] Last Admin: 12/24/23 21:04 Dose: 400 mg Quetiapine Fumarate (Quetiapine Fumarate 50 Mg Tablet) 50 mg PO BID@0900,1800 [facility] Last Admin: 12/25/23 09:16 Dose: 50 mg Risperidone (Risperidone 2 Mg Tablet) 4 mg PO BEDTIME [facility] Last Admin: 12/24/23 21:05 Dose: 4 mg Tamsulosin HCl (Tamsulosin Hcl 0.4 Mg Capsule) 0.8 mg PO DAILY [facility] Last Admin: 12/25/23 09:16 Dose: 0.8 mg Tiotropium Noti (Tiotropium Noti 2.5 Mcg 1 Puff/2.5 Mcg Mist.Inhal) 2 puff INHALE RDAILY [facility] Last Admin: 12/25/23 09:22 Dose: 2 puff Topiramate (Topiramate 25 Mg Tablet) 50 mg PO BEDTIME [facility] Last Admin: 12/24/23 21:04 Dose: 50 mg Venlafaxine HCl (Venlafaxine Hcl Er 150 Mg Cap.Er.24h) 150 mg PO DAILY [facility] Last Admin: 12/25/23 09:15 Dose: 150 mg Zolpidem Tartrate (Zolpidem Tartrate 5 Mg Tablet) 5 mg PO BEDTIME PRN PRN Reason: Insomnia Last Admin: 12/24/23 21:06 Dose: 5 mg Allergies Allergies Allergy/AdvReac Type Severity Reaction Status Date / Time ibuprofen Allergy Intermediate Stomach Verified 08/25/23 15:43 Upset penicillin V Allergy Intermediate rash Verified 08/25/23 15:43 Assessment & Plan Assessment & Plan (1) Major depressive disorder with psychotic features: Status: Acute Code(s): F32.3 - Major depressive disorder, single episode, severe with psychotic features Assessment and Plan: Presents with clear major depression and psychosis. This is also in the context of extended hospital stay (with Iv steroids, Abx, intubation, weight loss) and transfer having completed medical treatment. Will increase remeorn to 45mg, adjust risperdal to all bedtime and daily dose increase to 5mg. Maintain seroquel, suboxone, effexor, trazodone, ambien and klonopin 12/17/23: Lung Biopsy scheduled 12/18/23- NPO midnight 12/17: cook larder present. Pt reports feeling bad today; pt stated, I don't feel good mentally. I'm hearing voices and seeing shadows. The voices call out my name loudly. I'm thinking of harming myself . Pt reports he is hoping the medications will work ; pt denies SI/HI. Awaiting biopsy procedure to be scheduled; pt aware. 12/18: Pt reports feeling same as yesterday today; pt stated, I'm starting to feel like I'm improving a little. I'm worried about the biopsy . Pt reports eating well. pt denies SI/HI. Continues to report auditory hallucinations of hearing his name called and visual hallucinations of shadows . Awaiting biopsy procedure to be scheduled; pt aware. 12/19: Pt reports feeling he feels he is starting to improve a little bit . He continues to report auditory hallucinations that are call his name. Pt reports decreased visual hallucinations. Pt stated he is having some thoughts about harming myself ; when asked what is making him feel this way, pt stated, I don't know why . pt denies SI/HI. Awaiting biopsy procedure to be scheduled; pt aware. 12/20: cook larder present. Pt reports feeling anxious about the biopsy and what's going to happen . Pt reports he refused the MRI yesterday d/t being scared ; pt stated, I told them I was too scared to do it but I will do it today if they ask . He continues to report auditory hallucinations that are calling his name. pt denies SI/HI/VH. 12/21: Pt reports he feels his depression is going up and down but feels he is improving. He continues to report visual hallucinations during the day of shadows and auditory hallucinations at night of people saying my name . Pt denies SI/HI. continue current tx plan. 12/22: no change in presentation, continue current mgmt. 12/23: a little better today due to visit from brother. otherwise still depressed. anxious re Bx. continue current mgmt. 12/24: Pt reports feeling anxious today; pt stated, I'm feeling anxious about the procedure tomorrow. I had a hard time sleeping because I kept thinking about it . Pt continues to report AH/VH but states they have gotten better . Pt denies SI/HI; pt stated, I want to live for my kids and grandkids . Pt is scheduled to have biopsy tomorrow; pt aware. Plan As per Hospitalist: #Recent RLL pneumonia (?post obstructive) with hypoxemic respiratory failure and lung mass -See HPI. Completed course abx, weaned from O2 -Pulmonary nodule seen on multiple Ct scans dating to 07/2023, has not yet undergone biopsy. Discussed with Dr. Gerber. Pulmonology consult for evaluation #Unintentional weight loss - has lost 12 pounds since last admission 1.5months ago -?r/t depression, concern for malignancy -pulm consult as above, recommend nutrition to follow. Add ensures #COPD -no exacerbation -continue maintenance inhalers, albuterol nebs prn Patient educated on: diagnosis, medication risk/benefits and therapeutic strategies Informed Consent: understands Reason for continued inpatient stay Substantial Risk for: med/psych decompensation Time Spent With Patient Time: Total time managing care of this patient today _20___ minutes.
[2023-12-25] MEDS: clonazePAM 0.5 MG TABLET PO ×2 (13:25→21:24)
[2023-12-25 20:00] VITALS: BP 114/64; PULSE 97; RESP 16; TEMP 37.5; O2SAT 97
[2023-12-25] MEDS: Albuterol Sulfate 90 MCG 8 GM INHALER 2 PUFF INHALE (20:19)
[2023-12-25] MEDS: Atorvastatin Calcium 40 MG TABLET PO (21:22)
[2023-12-25] MEDS: Topiramate 25 MG TABLET 50 MG PO (21:23)
[2023-12-25] MEDS: QUEtiapine Fumarate 400 MG TABLET PO (21:24)
[2023-12-25] MEDS: Mirtazapine 15 MG TABLET 45 MG PO (21:24)
[2023-12-25] MEDS: risperiDONE 2 MG TABLET 4 MG PO (21:24)
[2023-12-25] MEDS: Ferrous Sulfate 324 MG TABLET.DR PO (21:24)
[2023-12-25] MEDS: Cyclobenzaprine HCl 10 MG TABLET PO (21:25)
[2023-12-25] MEDS: Zolpidem Tartrate 5 MG TABLET PO (23:12)
[2023-12-26] MEDS: Fluticasone/Vilanterol 200/25 BLST.W.DEV 1 PUFF INHALE (06:10)
[2023-12-26] MEDS: Tiotropium Bromide 2.5 mcg 1 PUFF/2.5 MCG MIST.INHAL 2 PUFF INHALE (06:10)
[2023-12-26] MEDS: Venlafaxine HCl ER 150 MG CAP.ER.24H PO (06:11)
[2023-12-26] MEDS: Omeprazole 20 MG CAPSULE.DR PO (06:12)
[2023-12-26] MEDS: Tamsulosin HCL 0.4 MG CAPSULE 0.8 MG PO (06:12)
[2023-12-26] MEDS: QUEtiapine Fumarate 50 MG TABLET PO ×2 (06:12→17:55)
[2023-12-26] MEDS: Buprenorphine/Naloxone 8/2 mg FILM 1 FILM SUBLINGUAL (06:13)
[2023-12-26] MEDS: Nicotine 21 MG PATCH.TD24 TRANSDERMA (06:13)
[2023-12-26] MEDS: clonazePAM 0.5 MG TABLET PO ×2 (06:13→15:39)
--- NOTE | 2023-12-26 15:23 | P.PNPSI_ITS ---
Subjective Subjective Date of Service: 12/26/23 Reason For Visit: Pulmonary mass Subjective Notes: Conditional Voluntary Interim History: Reviewed with Dr. Butt. educational sign language interpreter present. Pt reports feeling anxious today; pt stated, I'm feeling anxious about the procedure . Pt continues to report AH/VH but states they have gotten better . Pt denies SI/HI. Medication Compliance: Yes Side effects from medications: No Attending Groups: Intermittent Review of Systems Constitutional: Reports as per HPI Eyes: Reports as per HPI Reports as per HPI Cardiovascular: Reports as per HPI Respiratory: Reports as per HPI Gastrointestinal: Reports as per HPI Genitourinary: Reports as per HPI Musculoskeletal: Reports as per HPI Skin/Breast: Reports as per HPI Reports as per HPI Psychiatric: Reports as per HPI Endocrine: Reports as per HPI Hematologic/Lymphatic: Reports as per HPI Allergic/Immunologic: Reports as per HPI Mental Status Exam Mental Status Exam Narrative: Pt is alert and oriented; behavior is cooperative and calm; dressed in casual attire; mood is described as anxious ; appropriate eye contact ; Speech is normal rate, volume and not pressured; thought process is organized; Thought content is on tx; otherwise pertinent to relevant topics and without any delusional content, paranoid ideations or grandiosity; denies SI/HI. He reports AH/VH that have improved. Diagnostics Vital Signs (24Hr): Vital Signs - 24 hr 12/25/23 20:00 Temperature 99.5 F Pulse Rate 97 Respiratory Rate 16 Blood Pressure 114/64 Pulse Oximetry 97 Oxygen Delivery Method Room Air BMI result Body Mass Index 20.4 Labs 12/16/23 07:49 Imaging Radiology Impressions: ITS Impressions Brain MRI 12/21/23 18:30 IMPRESSION: No evidence of intracranial metastatic disease. No acute process. Minimal scattered white matter signal changes which may be due to chronic microangiopathy. [id number] right sphenoid sinus mucosal thickening. Medications Medications Current Medications Acetaminophen (Acetaminophen 325 Mg Tablet) 650 mg PO Q6H PRN PRN Reason: Headache/Pain Mild Scale (1-3) Last Admin: 12/24/23 23:20 Dose: 650 mg Al Hydroxide/Mg Hydroxide (Magnesium Hydrox/Alum Hydrox 30 Ml Oral.Susp) 30 ml PO Q6H PRN PRN Reason: Heartburn/Nausea Albuterol Sulfate (Albuterol Sulfate 90 Mcg 8 Gm Inhaler) 2 puff INHALE Q4H PRN PRN Reason: Wheezing Last Admin: 12/25/23 20:19 Dose: 2 puff Atorvastatin Calcium (Atorvastatin Calcium 40 Mg Tablet) 40 mg PO BEDTIME [facility] Last Admin: 12/25/23 21:22 Dose: 40 mg Buprenorphine/Naloxone (Buprenorphine/Naloxone 8/2 Mg Film) 1 film SUBLINGUAL DAILY [facility] Last Admin: 12/26/23 06:13 Dose: 1 film Clonazepam (Clonazepam 0.5 Mg Tablet) 0.5 mg PO BID PRN PRN Reason: anxiety Last Admin: 12/26/23 06:13 Dose: 0.5 mg Cyclobenzaprine HCl (Cyclobenzaprine Hcl 10 Mg Tablet) 10 mg PO TID PRN PRN Reason: back pain Last Admin: 12/25/23 21:25 Dose: 10 mg Ferrous Sulfate (Ferrous Sulfate 324 Mg Tablet.Dr) 324 mg PO BEDTIME [facility] Last Admin: 12/25/23 21:24 Dose: 324 mg Fluticasone/Vilanterol (Fluticasone/Vilanterol 200/25 Blst.W.Dev) 1 puff INHALE RDAILY [facility] Last Admin: 12/26/23 06:10 Dose: 1 puff Hydroxyzine HCl (Hydroxyzine Hcl 25 Mg Tablet) 25 mg PO Q6H PRN PRN Reason: Anxiety Last Admin: 12/25/23 09:47 Dose: 25 mg Magnesium Hydroxide (Milk Of Magnesia 30 Ml Oral.Susp) 30 ml PO DAILY PRN PRN Reason: Constipation Mirtazapine (Mirtazapine 15 Mg Tablet) 45 mg PO BEDTIME [facility] Last Admin: 12/25/23 21:24 Dose: 45 mg Nicotine (Nicotine 21 Mg Patch.Td24) 21 mg TRANSDERMA DAILY [facility] Last Admin: 12/26/23 06:13 Dose: 21 mg Nicotine Polacrilex (Nicotine Polacrilex 2 Mg Gum) 4 mg BUCCAL Q2H PRN PRN Reason: Nicotine Cravings Omeprazole (Omeprazole 20 Mg Capsule.Dr) 20 mg PO DAILY@0630 [facility] Last Admin: 12/26/23 06:12 Dose: 20 mg Quetiapine Fumarate (Quetiapine Fumarate 400 Mg Tablet) 400 mg PO BEDTIME [facility] Last Admin: 12/25/23 21:24 Dose: 400 mg Quetiapine Fumarate (Quetiapine Fumarate 50 Mg Tablet) 50 mg PO BID@0900,1800 [facility] Last Admin: 12/26/23 06:12 Dose: 50 mg Risperidone (Risperidone 2 Mg Tablet) 4 mg PO BEDTIME [facility] Last Admin: 12/25/23 21:24 Dose: 4 mg Tamsulosin HCl (Tamsulosin Hcl 0.4 Mg Capsule) 0.8 mg PO DAILY [facility] Last Admin: 12/26/23 06:12 Dose: 0.8 mg Tiotropium [place] (Tiotropium [place] 2.5 Mcg 1 Puff/2.5 Mcg Mist.Inhal) 2 puff INHALE RDAILY [facility] Last Admin: 12/26/23 06:10 Dose: 2 puff Topiramate (Topiramate 25 Mg Tablet) 50 mg PO BEDTIME [facility] Last Admin: 12/25/23 21:23 Dose: 50 mg Venlafaxine HCl (Venlafaxine Hcl Er 150 Mg Cap.Er.24h) 150 mg PO DAILY [facility] Last Admin: 12/26/23 06:11 Dose: 150 mg Allergies Allergies Allergy/AdvReac Type Severity Reaction Status Date / Time ibuprofen Allergy Intermediate Stomach Verified 12/26/23 12:13 Upset penicillin V Allergy Intermediate rash Verified 12/26/23 12:13 Assessment & Plan Assessment & Plan (1) Major depressive disorder with psychotic features: Status: Acute Code(s): F32.3 - Major depressive disorder, single episode, severe with psychotic features Assessment and Plan: Presents with clear major depression and psychosis. This is also in the context of extended hospital stay (with Iv steroids, Abx, intubation, weight loss) and transfer having completed medical treatment. Will increase remeorn to 45mg, adjust risperdal to all bedtime and daily dose increase to 5mg. Maintain seroquel, suboxone, effexor, trazodone, ambien and klonopin 12/17/23: Lung Biopsy scheduled 12/18/23- NPO midnight 12/17: educational sign language interpreter present. Pt reports feeling bad today; pt stated, I don't feel good mentally. I'm hearing voices and seeing shadows. The voices call out my name loudly. I'm thinking of harming myself . Pt reports he is hoping the medications will work ; pt denies SI/HI. Awaiting biopsy procedure to be scheduled; pt aware. 12/18: Pt reports feeling same as yesterday today; pt stated, I'm starting to feel like I'm improving a little. I'm worried about the biopsy . Pt reports eating well. pt denies SI/HI. Continues to report auditory hallucinations of hearing his name called and visual hallucinations of shadows . Awaiting biopsy procedure to be scheduled; pt aware. 12/19: Pt reports feeling he feels he is starting to improve a little bit . He continues to report auditory hallucinations that are call his name. Pt reports decreased visual hallucinations. Pt stated he is having some thoughts about harming myself ; when asked what is making him feel this way, pt stated, I don't know why . pt denies SI/HI. Awaiting biopsy procedure to be scheduled; pt aware. 12/20: educational sign language interpreter present. Pt reports feeling anxious about the biopsy and what's going to happen . Pt reports he refused the MRI yesterday d/t being scared ; pt stated, I told them I was too scared to do it but I will do it today if they ask . He continues to report auditory hallucinations that are calling his name. pt denies SI/HI/VH. 12/21: Pt reports he feels his depression is going up and down but feels he is improving. He continues to report visual hallucinations during the day of shadows and auditory hallucinations at night of people saying my name . Pt denies SI/HI. continue current tx plan. 12/22: no change in presentation, continue current mgmt. 12/23: a little better today due to visit from brother. otherwise still depressed. anxious re Bx. continue current mgmt. 12/24: Pt reports feeling anxious today; pt stated, I'm feeling anxious about the procedure tomorrow. I had a hard time sleeping because I kept thinking about it . Pt continues to report AH/VH but states they have gotten better . Pt denies SI/HI; pt stated, I want to live for my kids and grandkids . Pt is scheduled to have biopsy tomorrow; pt aware. 12/25: continue current tx plan. Plan As per Hospitalist: #Recent RLL pneumonia (?post obstructive) with hypoxemic respiratory failure and lung mass -See HPI. Completed course abx, weaned from O2 -Pulmonary nodule seen on multiple Ct scans dating to 07/2023, has not yet undergone biopsy. Discussed with Dr. Gerber. Pulmonology consult for evaluation #Unintentional weight loss - has lost 12 pounds since last admission 1.5months ago -?r/t depression, concern for malignancy -pulm consult as above, recommend nutrition to follow. Add ensures #COPD -no exacerbation -continue maintenance inhalers, albuterol nebs prn Patient educated on: diagnosis, medication risk/benefits and therapeutic strategies Informed Consent: understands Reason for continued inpatient stay Substantial Risk for: med/psych decompensation Time Spent With Patient Time: Total time managing care of this patient today _20___ minutes.
[2023-12-26 15:29] VITALS: BP 136/77; PULSE 86; RESP 16; TEMP 36.6; O2SAT 97
[2023-12-26] MEDS: hydrOXYzine HCL 25 MG TABLET PO (15:39)
[2023-12-26 19:55] VITALS: BP 100/58; PULSE 97; RESP 16; TEMP 36.7; O2SAT 96
[2023-12-26] MEDS: risperiDONE 2 MG TABLET 4 MG PO (20:41)
[2023-12-26] MEDS: Cyclobenzaprine HCl 10 MG TABLET PO (20:41)
[2023-12-26] MEDS: Topiramate 25 MG TABLET 50 MG PO (20:42)
[2023-12-26] MEDS: Ferrous Sulfate 324 MG TABLET.DR PO (20:43)
[2023-12-26] MEDS: Mirtazapine 15 MG TABLET 45 MG PO (20:43)
[2023-12-26] MEDS: Atorvastatin Calcium 40 MG TABLET PO (20:44)
[2023-12-26] MEDS: QUEtiapine Fumarate 400 MG TABLET PO (20:44)
[2023-12-26] MEDS: Zolpidem Tartrate 5 MG TABLET PO (21:24)
[2023-12-27] MEDS: Omeprazole 20 MG CAPSULE.DR PO (06:38)
[2023-12-27 07:43] VITALS: BP 104/68; PULSE 96; RESP 16; TEMP 36.9; O2SAT 95
[2023-12-27] MEDS: Fluticasone/Vilanterol 200/25 BLST.W.DEV 1 PUFF INHALE (08:40)
[2023-12-27] MEDS: Nicotine 21 MG PATCH.TD24 TRANSDERMA (08:40)
[2023-12-27] MEDS: QUEtiapine Fumarate 50 MG TABLET PO ×2 (08:42→17:12)
[2023-12-27] MEDS: Tamsulosin HCL 0.4 MG CAPSULE 0.8 MG PO (08:42)
[2023-12-27] MEDS: Venlafaxine HCl ER 150 MG CAP.ER.24H PO (08:42)
[2023-12-27] MEDS: Buprenorphine/Naloxone 8/2 mg FILM 1 FILM SUBLINGUAL (08:42)
[2023-12-27] MEDS: Tiotropium Bromide 2.5 mcg 1 PUFF/2.5 MCG MIST.INHAL 2 PUFF INHALE (08:45)
--- NOTE | 2023-12-27 08:57 | HO.PSYCHPN ---
Subjective Subjective Date of Service: 12/27/23 Reason For Visit: Pulmonary mass Subjective Notes: Conditional Voluntary Interim History: Reviewed with Dr. Butt. beef cattle farm worker present. Pt reports feeling better ; pt stated, I'm glad they didn't see anything in the x-ray and I didn't have to get the biopsy. God must of put his hands on me . Pt denies SI/HI/VH. Pt continues to report AH but states they have decreased. Pt did not have biopsy yesterday (please see note). Medication Compliance: Yes Side effects from medications: No Attending Groups: Intermittent Review of Systems Constitutional: Reports as per HPI Eyes: Reports as per HPI Reports as per HPI Cardiovascular: Reports as per HPI Respiratory: Reports as per HPI Gastrointestinal: Reports as per HPI Genitourinary: Reports as per HPI Musculoskeletal: Reports as per HPI Skin/Breast: Reports as per HPI Reports as per HPI Psychiatric: Reports as per HPI Endocrine: Reports as per HPI Hematologic/Lymphatic: Reports as per HPI Allergic/Immunologic: Reports as per HPI Mental Status Exam Mental Status Exam Narrative: Pt is alert and oriented; behavior is cooperative and calm; dressed in casual attire; mood is described as better ; appropriate eye contact ; Speech is normal rate, volume and not pressured; thought process is organized; Thought content is on tx; otherwise pertinent to relevant topics and without any delusional content, paranoid ideations or grandiosity; denies SI/HI/VH. He reports AH that has improved. Diagnostics Vital Signs (24Hr): Vital Signs - 24 hr 12/26/23 15:29 12/26/23 19:55 12/27/23 07:43 Temperature 97.8 F 98.1 F 98.5 F Pulse Rate 86 97 96 Respiratory Rate 16 16 16 Blood Pressure 136/77 100/58 L 104/68 Pulse Oximetry 97 96 95 Oxygen Delivery Method Room Air Room Air Room Air BMI result Body Mass Index 20.4 Labs 12/16/23 07:49 Imaging Radiology Impressions: ITS Impressions Brain MRI 12/21/23 18:30 IMPRESSION: No evidence of intracranial metastatic disease. No acute process. Minimal scattered white matter signal changes which may be due to chronic microangiopathy. [id number] right sphenoid sinus mucosal thickening. Medications Medications Current Medications Acetaminophen (Acetaminophen 325 Mg Tablet) 650 mg PO Q6H PRN PRN Reason: Headache/Pain Mild Scale (1-3) Last Admin: 12/24/23 23:20 Dose: 650 mg Al Hydroxide/Mg Hydroxide (Magnesium Hydrox/Alum Hydrox 30 Ml Oral.Susp) 30 ml PO Q6H PRN PRN Reason: Heartburn/Nausea Albuterol Sulfate (Albuterol Sulfate 90 Mcg 8 Gm Inhaler) 2 puff INHALE Q4H PRN PRN Reason: Wheezing Last Admin: 12/25/23 20:19 Dose: 2 puff Atorvastatin Calcium (Atorvastatin Calcium 40 Mg Tablet) 40 mg PO BEDTIME [facility] Last Admin: 12/26/23 20:44 Dose: 40 mg Buprenorphine/Naloxone (Buprenorphine/Naloxone 8/2 Mg Film) 1 film SUBLINGUAL DAILY [facility] Last Admin: 12/27/23 08:42 Dose: 1 film Clonazepam (Clonazepam 0.5 Mg Tablet) 0.5 mg PO BID PRN PRN Reason: anxiety Last Admin: 12/26/23 15:39 Dose: 0.5 mg Cyclobenzaprine HCl (Cyclobenzaprine Hcl 10 Mg Tablet) 10 mg PO TID PRN PRN Reason: back pain Last Admin: 12/26/23 20:41 Dose: 10 mg Ferrous Sulfate (Ferrous Sulfate 324 Mg Tablet.Dr) 324 mg PO BEDTIME [facility] Last Admin: 12/26/23 20:43 Dose: 324 mg Fluticasone/Vilanterol (Fluticasone/Vilanterol 200/25 Blst.W.Dev) 1 puff INHALE RDAILY [facility] Last Admin: 12/27/23 08:40 Dose: 1 puff Hydroxyzine HCl (Hydroxyzine Hcl 25 Mg Tablet) 25 mg PO Q6H PRN PRN Reason: Anxiety Last Admin: 12/26/23 15:39 Dose: 25 mg Magnesium Hydroxide (Milk Of Magnesia 30 Ml Oral.Susp) 30 ml PO DAILY PRN PRN Reason: Constipation Mirtazapine (Mirtazapine 15 Mg Tablet) 45 mg PO BEDTIME [facility] Last Admin: 12/26/23 20:43 Dose: 45 mg Nicotine (Nicotine 21 Mg Patch.Td24) 21 mg TRANSDERMA DAILY [facility] Last Admin: 12/27/23 08:40 Dose: 21 mg Nicotine Polacrilex (Nicotine Polacrilex 2 Mg Gum) 4 mg BUCCAL Q2H PRN PRN Reason: Nicotine Cravings Omeprazole (Omeprazole 20 Mg Capsule.Dr) 20 mg PO DAILY@0630 [facility] Last Admin: 12/27/23 06:38 Dose: 20 mg Quetiapine Fumarate (Quetiapine Fumarate 400 Mg Tablet) 400 mg PO BEDTIME [facility] Last Admin: 12/26/23 20:44 Dose: 400 mg Quetiapine Fumarate (Quetiapine Fumarate 50 Mg Tablet) 50 mg PO BID@0900,1800 [facility] Last Admin: 12/27/23 08:42 Dose: 50 mg Risperidone (Risperidone 2 Mg Tablet) 4 mg PO BEDTIME [facility] Last Admin: 12/26/23 20:41 Dose: 4 mg Tamsulosin HCl (Tamsulosin Hcl 0.4 Mg Capsule) 0.8 mg PO DAILY [facility] Last Admin: 12/27/23 08:42 Dose: 0.8 mg Tiotropium [place] (Tiotropium [place] 2.5 Mcg 1 Puff/2.5 Mcg Mist.Inhal) 2 puff INHALE RDAILY [facility] Last Admin: 12/27/23 08:45 Dose: 2 puff Topiramate (Topiramate 25 Mg Tablet) 50 mg PO BEDTIME [facility] Last Admin: 12/26/23 20:42 Dose: 50 mg Venlafaxine HCl (Venlafaxine Hcl Er 150 Mg Cap.Er.24h) 150 mg PO DAILY [facility] Last Admin: 12/27/23 08:42 Dose: 150 mg Zolpidem Tartrate (Zolpidem Tartrate 5 Mg Tablet) 5 mg PO BEDTIME PRN PRN Reason: Insomnia Last Admin: 12/26/23 21:24 Dose: 5 mg Allergies Allergies Allergy/AdvReac Type Severity Reaction Status Date / Time ibuprofen Allergy Intermediate Stomach Verified 12/26/23 12:13 Upset penicillin V Allergy Intermediate rash Verified 12/26/23 12:13 Assessment & Plan Assessment & Plan (1) Major depressive disorder with psychotic features: Status: Acute Code(s): F32.3 - Major depressive disorder, single episode, severe with psychotic features Assessment and Plan: Presents with clear major depression and psychosis. This is also in the context of extended hospital stay (with Iv steroids, Abx, intubation, weight loss) and transfer having completed medical treatment. Will increase remeorn to 45mg, adjust risperdal to all bedtime and daily dose increase to 5mg. 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 Pt reports feeling bad today; pt stated, I don't feel good mentally. I'm hearing voices and seeing shadows. The voices call out my name loudly. I'm thinking of harming myself . Pt reports he is hoping the medications will work ; pt denies SI/HI. Awaiting biopsy procedure to be scheduled; pt aware. 12/18: Pt reports feeling same as yesterday today; pt stated, I'm starting to feel like I'm improving a little. I'm worried about the biopsy . Pt reports eating well. pt denies SI/HI. Continues to report auditory hallucinations of hearing his name called and visual hallucinations of shadows . Awaiting biopsy procedure to be scheduled; pt aware. 12/19: Pt reports feeling he feels he is starting to improve a little bit . He continues to report auditory hallucinations that are call his name. Pt reports decreased visual hallucinations. Pt stated he is having some thoughts about harming myself ; when asked what is making him feel this way, pt stated, I don't know why . pt denies SI/HI. Awaiting biopsy procedure to be scheduled; pt aware. 12/20: beef cattle farm worker present. Pt reports feeling anxious about the biopsy and what's going to happen . Pt reports he refused the MRI yesterday d/t being scared ; pt stated, I told them I was too scared to do it but I will do it today if they ask . He continues to report auditory hallucinations that are calling his name. pt denies SI/HI/VH. 12/21: Pt reports he feels his depression is going up and down but feels he is improving. He continues to report visual hallucinations during the day of shadows and auditory hallucinations at night of people saying my name . Pt denies SI/HI. continue current tx plan. 12/22: no change in presentation, continue current mgmt. 12/23: a little better today due to visit from brother. otherwise still depressed. anxious re Bx. continue current mgmt. 12/24: Pt reports feeling anxious today; pt stated, I'm feeling anxious about the procedure tomorrow. I had a hard time sleeping because I kept thinking about it . Pt continues to report AH/VH but states they have gotten better . Pt denies SI/HI; pt stated, I want to live for my kids and grandkids . Pt is scheduled to have biopsy tomorrow; pt aware. 12/25: continue current tx plan. 12/26: Pt reports feeling better ; pt stated, I'm glad they didn't see anything in the x-ray and I didn't have to get the biopsy. God must of put his hands on me . Pt denies SI/HI/VH. Pt continues to report AH but states they have decreased. Pt did not have biopsy yesterday (please see note). Plan to discharge home tomorrow. Plan As per Hospitalist: #Recent RLL pneumonia (?post obstructive) with hypoxemic respiratory failure and lung mass -See HPI. Completed course abx, weaned from O2 -Pulmonary nodule seen on multiple Ct scans dating to 07/2023, has not yet undergone biopsy. Discussed with Dr. Gerber. Pulmonology consult for evaluation #Unintentional weight loss - has lost 12 pounds since last admission 1.5months ago -?r/t depression, concern for malignancy -pulm consult as above, recommend nutrition to follow. Add ensures #COPD -no exacerbation -continue maintenance inhalers, albuterol nebs prn Patient educated on: diagnosis, medication risk/benefits and therapeutic strategies Informed Consent: understands Reason for continued inpatient stay Substantial Risk for: stable for discharge Time Spent With Patient Time: Total time managing care of this patient today _20___ minutes.
[2023-12-27] MEDS: clonazePAM 0.5 MG TABLET PO ×2 (10:45→21:37)
[2023-12-27] MEDS: hydrOXYzine HCL 25 MG TABLET PO (15:31)
[2023-12-27 19:24] VITALS: BP 100/66; PULSE 95; RESP 16; TEMP 37.1; O2SAT 97
[2023-12-27] MEDS: Zolpidem Tartrate 5 MG TABLET PO (21:37)
[2023-12-27] MEDS: QUEtiapine Fumarate 400 MG TABLET PO (21:37)
[2023-12-27] MEDS: Mirtazapine 15 MG TABLET 45 MG PO (21:37)
[2023-12-27] MEDS: risperiDONE 2 MG TABLET 4 MG PO (21:37)
[2023-12-27] MEDS: Atorvastatin Calcium 40 MG TABLET PO (21:38)
[2023-12-27] MEDS: Cyclobenzaprine HCl 10 MG TABLET PO (21:38)
[2023-12-27] MEDS: Topiramate 25 MG TABLET 50 MG PO (21:38)
[2023-12-27] MEDS: Ferrous Sulfate 324 MG TABLET.DR PO (21:38)
[2023-12-28 07:44] VITALS: BP 103/60; PULSE 89; RESP 14; TEMP 37; O2SAT 96
[2023-12-28] MEDS: Venlafaxine HCl ER 150 MG CAP.ER.24H PO (08:59)
[2023-12-28] MEDS: QUEtiapine Fumarate 50 MG TABLET PO (09:00)
[2023-12-28] MEDS: Omeprazole 20 MG CAPSULE.DR PO (09:01)
[2023-12-28] MEDS: Tamsulosin HCL 0.4 MG CAPSULE 0.8 MG PO (09:03)
[2023-12-28] MEDS: Buprenorphine/Naloxone 8/2 mg FILM 1 FILM SUBLINGUAL (09:04)
[2023-12-28] MEDS: Nicotine 21 MG PATCH.TD24 TRANSDERMA (09:04)
[2023-12-28] MEDS: Fluticasone/Vilanterol 200/25 BLST.W.DEV 1 PUFF INHALE (09:06)
[2023-12-28] MEDS: Tiotropium Bromide 2.5 mcg 1 PUFF/2.5 MCG MIST.INHAL 2 PUFF INHALE (09:08)
[2023-12-28] MEDS: clonazePAM 0.5 MG TABLET PO (09:38)
--- NOTE | 2023-12-28 10:05 | P.DS_ITS ---
DS: Providers Provider Date of Service: 12/28/23 Date of admission: 12/15/23 15:26 Date of discharge: 12/28/23 Primary care physician: Vince Doran MD Attending physician on admission: Huang Sierra Consults: 12/15/23 15:48 Consult to Hospitalist Routine Comment: Consulting Provider: Hospitalist Reason For Exam: H&P, new admit. 12/15/23 16:51 Consult to Pulmonology Routine Consulting Provider: [facility] Pulmonology Services Reason for consultation: consolidative right lower lobe mass with cavitary lesion Attending physician on discharge: Ivan Butt Discharging clinician: Lily Johnson DS: Diagnosis Discharge Diagnosis (1) Major depressive disorder with psychotic features: Status: Acute DS: Medications Discharge Medications Home Medications: Home Medications ?Medication ?Instructions ?Recorded ?Confirmed clonazepam 0.5 mg tablet (Klonopin) 0.5 mg PO BID PRN anxiety 12/15/23 12/15/23 Previous Rx's ?Medication ?Instructions ?Recorded albuterol sulfate 90 mcg/actuation 2 puff inhalation Q4-6H PRN 06/30/23 aerosol inhaler (Ventolin HFA) Wheezing 30 days #6.7 grams atorvastatin 40 mg tablet 40 mg PO BEDTIME 30 days #30 tabs 06/30/23 budesonide-formoterol HFA 160 2 puff inhalation BID 30 days 06/30/23 mcg-4.5 mcg/actuation aerosol #10.2 grams inhaler (Symbicort) cyclobenzaprine 10 mg tablet 10 mg PO TID PRN back pain 30 days 06/30/23 #60 tabs ferrous sulfate 325 mg (65 mg 325 mg PO BEDTIME 30 days #30 tabs 06/30/23 iron) tablet (FeroSul) tamsulosin 0.4 mg capsule 0.8 mg (2 x 0.4 mg) PO DAILY 30 06/30/23 days #60 caps tiotropium bromide 2.5 2 puff inhalation DAILY 30 days #4 06/30/23 mcg/actuation mist for inhalation grams (Spiriva Respimat) zolpidem 5 mg tablet 5 mg PO BEDTIME PRN insomnia 15 06/30/23 days #15 tabs buprenorphine 8 mg-naloxone 2 mg 1 film sublingual DAILY 7 days #7 12/28/23 sublingual film (Suboxone) ea hydroxyzine HCl 50 mg tablet 50 mg PO BID PRN anxiety 30 days 12/28/23 #60 tabs mirtazapine 45 mg tablet 45 mg PO BEDTIME 30 days #30 tabs 12/28/23 omeprazole 20 mg capsule,delayed 20 mg PO DAILY@0630 30 days #30 12/28/23 release caps quetiapine 400 mg tablet 400 mg PO BEDTIME 30 days #30 tabs 12/28/23 quetiapine 50 mg tablet 50 mg PO BID@0900,1800 30 days #60 12/28/23 tabs risperidone 4 mg tablet 4 mg PO BEDTIME 30 days #30 tabs 12/28/23 topiramate 50 mg tablet 50 mg PO BEDTIME 30 days #30 tabs 12/28/23 venlafaxine 150 mg tablet,extended 150 mg PO DAILY 30 days #30 tabs 12/28/23 release 24 hr Mental Status Exam Mental Status Exam Narrative: Pt is alert and oriented; behavior is cooperative and calm; dressed in casual attire; mood is described as better ; appropriate eye contact ; Speech is normal rate, volume and not pressured; thought process is organized; Thought content is on tx; otherwise pertinent to relevant topics and without any delusional content, paranoid ideations or grandiosity; denies SI/HI/VH. He reports AH that has improved. Data Data Completed and Pending Completed studies during hospitalization [Text1]: 12/19/23 20:05 Urine clean catch - Urine vidal top Urine Culture - Final No growth. Imaging Diagnostic Imaging Impressions Brain MRI 12/21/23 18:30 IMPRESSION: No evidence of intracranial metastatic disease. No acute process. Minimal scattered white matter signal changes which may be due to chronic microangiopathy. Fhvw-eo-tjujxodi right sphenoid sinus mucosal thickening. DS: Summary Hospital Course Hospital Course: Hospitalist H and P 12/16/23 (as Direct Admit): 58-year-old male with history of COPD, hyperlipidemia, hypertension, history of cocaine abuse, lung mass admitted to adult Psychiatry from [facility] with consult placed hospitalist service for medical H&P. He is Brazilian- speaking only and is seen with the assistance of [employer] interpreter. He was admitted to [facility] from 11/28-12/14 due to acute metabolic encephalopathy and respiratory distress. The patient had reportedly been missing 28 tablets of clonazepam and there was concern for overdose however patient adamantly denies this. He was ultimately diagnosed with what appears to be a postobstructive pne umonia with acute hypoxemic respiratory failure and COPD exacerbation. He was treated with IV antibiotics, IV steroids, and nebulizer treatments. Repeat chest CT on 12/06 showed near resolution of consolidative mass in the right lower lobe but there was remaining incidental 0.7 x 0.4 cm solid nodule slightly lower than the cavitary lesion. On review of [facility] chart, has had CT chest in the past from 10/28 and CTA chest 08/08 of this year demonstrating concerning nodule. Pt has not yet undergone biopsy. He is still reporting productive cough but is feeling better overall. Occasionally sob, requesting albuterol nebs. He is afebrile with no leukocytosis on discharge from [facility]. CBC significant for normocytic anemia with h/h 11.0/33.4%, consistent with baseline. Renal function is normal, lytes normal except for a mild hyperkalemia on 12/07 of 5.3 without repeat. Utox was positive for benzos, cocaine, buprenorphine, and thc on arrival to [facility] 11/28. EKG showed sinus tach, rate 104, with nonspecific t wave abnormality. No acute ischemic changes. [place]/M5 Discharge Summary June 2023: Hospital course: Patient depressed with AH on admission. Home medications restarted. Discussed medication options and he was open to changes. Over the course of the admission, Mirtazapine was increased to 30 mg, Effexor ER increased to 150 mg and Risperdal increased to 4 mg total with the bulk of it at bedtime..... -patient's mood remained improved, SI and AH resolved; and though he was anxious about discharge, he is at his psychiatric baseline. Love for his children and grandchildren remain a strong protective factor. Patient of course remains at risk for relapse and mood decompensation and will likely continue to struggle with these things for some time; however, this is a chronic struggle that will not resolve with longer inpatient stay and at this time patient did not want any further treatment for substance abuse. Patient is returning to his own apartment where he has a daily VNA. He is not in imminent risk for harm to self or others and appropriate to continue treatment in the community. Medications June 2023 discharge: included Risperdal total daily dose 4 mg, Seroquel 100 mg twice daily and 400 mg at bedtime and 50 mg as needed, trazodone 50 mg as needed, Klonopin 0.5 mg as needed twice daily, Suboxone 8 mg once daily, Ambien 5 mg as needed at bedtime, Effexor 150 mg and Remeron 30 mg Today: Patient interviewed with [employer] staff interpreter # [id number]. patient endorsed feeling depressed. Tired. No motivation. Hallucinations telling him to hurt himself. No desire to act upon same, but also distressed by this. No delusions. Feels cared for. Feeling safe. Excessive sleeping. Noted weight loss, which hospitalist's evaluation also noted, which does appear to coincide with recent medical illness. Reports that he has been consistent with his psychotropic medications, especially during his hospital stay prior to this transfer. Denies any substances in over 1 month. Reports wanting changes in medications to help with depression and hallucinations. During hospital course, Presents with clear major depression and psychosis. This is also in the context of extended hospital stay (with Iv steroids, Abx, intubation, weight loss) and transfer having completed medical treatment. Will increase remeorn to 45mg, adjust risperdal to all bedtime and daily dose increase to 5mg. Maintain seroquel, suboxone, effexor, trazodone, ambien and klonopin Lung Biopsy scheduled 12/18/23- NPO midnight automotive parts interpreter present. Pt reports feeling bad today; pt stated, I don't feel good mentally. I'm hearing voices and seeing shadows. The voices call out my name loudly. I'm thinking of harming myself . Pt reports he is hoping the medications will work ; pt denies SI/HI. Awaiting biopsy procedure to be scheduled; pt aware. Pt reports feeling same as yesterday today; pt stated, I'm starting to feel like I'm improving a little. I'm worried about the biopsy . Pt reports eating well. pt denies SI/HI. Continues to report auditory hallucinations of hearing his name called and visual hallucinations of shadows . Awaiting biopsy procedure to be scheduled; pt aware. Pt reports feeling he feels he is starting to improve a little bit . He continues to report auditory hallucinations that are call his Pt reports decreased visual hallucinations. Pt stated he is having some thoughts about harming myself ; when asked what is making him feel this way, pt stated, I don't know why . pt denies SI/HI. Awaiting biopsy procedure to be scheduled; pt aware. Pt reports feeling anxious about the biopsy and what's going to happen . Pt reports he refused the MRI yesterday d/t being scared ; pt stated, I told them I was too scared to do it but I will do it today if they ask . He continues to report auditory hallucinations that are calling his name. pt denies SI/HI/VH. Pt reports he feels his depression is going up and down but feels he is improving. He continues to report visual hallucinations during the day of shadows and auditory hallucinations at night of people saying my name . Pt denies SI/HI. continue current tx plan. a little better today due to visit from brother. otherwise still depressed. anxious re Bx. continue current mgmt. Pt reports feeling anxious today; pt stated, I'm feeling anxious about the procedure tomorrow. I had a hard time sleeping because I kept thinking about it . Pt continues to report AH/VH but states they have gotten better . Pt denies SI/HI; pt stated, I want to live for my kids and grandkids . Pt is scheduled to have biopsy tomorrow; pt aware. Pt reports feeling better ; pt stated, I'm glad they didn't see anything in the x-ray and I didn't have to get the biopsy. God must of put his hands on me . Pt denies SI/HI/VH. Pt continues to report AH but states they have decreased. Pt did not have biopsy yesterday (please see note). Plan to discharge home tomorrow. Pt reports feeling good today; pt reports he plans on following up with outpatient providers. pt denies SI/HI/VH/AH. Time spent discussing smoking cessation with patient: 3 to 10 minutes Status at Discharge Cognitive/behavioral status at discharge: Patient was interviewed prior to discharge and found to be fully oriented and without SI or HI. Patient has insight and demonstrates good judgment in terms of wanting to pursue treatment. Patient has a safety plan that includes presenting to the closest ER or calling 911 if feeling unsafe. Functional status at discharge: independent ambulation Overall status at discharge: patient is back to baseline Time Spent with Patient Time attestation: Total time managing care of this patient today _20___ minutes. Time spent: Less than 30 minutes Discharge Plan Discharge Anticipated Discharge Date/Time: 12/28/23 11:00 Patient Disposition: Home, Self-Care Discharge Diagnosis: MDD, cocaine use d/o, ETOH use d/o Referrals: [facility] [place] ([facility]) [Other] - 1 Week (*Your visiting nurse has been informed of your scheduled discharge and will follow up with you at home. ) Kassie Rosales (Therapy) [Other] - 01/01/24 11:00 am (IN OFFICE APPOINTMENT) Dr. Jenaro Farias (Psychiatry) [Other] - 01/23/24 12:00 pm (IN OFFICE APPOINTMENT) Vince Doran MD [Primary Care Provider] - 01/23/24 10:30 am (PCP office confirmed 01/23/24 @ 10:30am appt. for followup.) Discharge Medications: New mirtazapine 45 mg tablet 45 mg PO BEDTIME 30 Days Qty: 30 0RF quetiapine 50 mg Tablet 50 mg PO BID@0900,1800 30 Days Qty: 60 0RF risperidone 4 mg tablet 4 mg PO BEDTIME 30 Days Qty: 30 0RF nicotine 21 mg/24 hr Patch 24 Hour 21 mg transdermal DAILY 30 Days Qty: 28 0RF Continued clonazepam [Klonopin] 0.5 mg tablet 0.5 mg PO BID PRN (Reason: anxiety) hydroxyzine HCl 50 mg tablet 50 mg PO BID PRN (Reason: anxiety) 30 Days Qty: 60 0RF omeprazole 20 mg Capsule,Delayed Release(Dr/Ec) 20 mg PO DAILY@0630 30 Days Qty: 30 0RF topiramate 50 mg tablet 50 mg PO BEDTIME 30 Days Qty: 30 0RF quetiapine 400 mg tablet 400 mg PO BEDTIME 30 Days Qty: 30 0RF venlafaxine 150 mg tablet extended release 24hr 150 mg PO DAILY 30 Days Qty: 30 0RF buprenorphine-naloxone [Suboxone] 8-2 mg film 1 film sublingual DAILY 7 Days Qty: 7 0RF cyclobenzaprine 10 mg Tablet 10 mg PO TID PRN (Reason: back pain) 30 Days Qty: 60 0RF atorvastatin 40 mg Tablet 40 mg PO BEDTIME 30 Days Qty: 30 0RF tamsulosin 0.4 mg Capsule 0.8 mg PO DAILY 30 Days Qty: 60 0RF ferrous sulfate [FeroSul] 325 mg (65 mg iron) tablet 325 mg PO BEDTIME 30 Days Qty: 30 0RF zolpidem 5 mg Tablet 5 mg PO BEDTIME PRN (Reason: insomnia) 15 Days Qty: 15 1RF albuterol sulfate [Ventolin HFA] 90 mcg/actuation HFA aerosol inhaler 2 puff INHALATION Q4-6H PRN (Reason: Wheezing) 30 Days Qty: 6.7 0RF budesonide-formoterol [Symbicort] 160-4.5 mcg/actuation HFA aerosol inhaler 2 puff INHALATION BID 30 Days Qty: 10.2 0RF Spiriva Respimat 2.5 mcg/actuation mist 2 puff INHALATION DAILY 30 Days Qty: 4 0RF Discontinued acetaminophen [Tylenol] 325 mg tablet 650 mg PO Q6H PRN (Reason: Headache/Pain Mild Scale (1-3)) risperidone [Risperdal] 3 mg tablet 3 mg PO BEDTIME risperidone [Risperdal] 1 mg tablet 1 mg PO DAILY quetiapine 50 mg Tablet 50 mg PO QID PRN (Reason: Anxiety/Restlessness) 30 Days Qty: 60 0RF benzonatate 100 mg Capsule 100 mg PO TID PRN (Reason: Cough) 14 Days Qty: 30 0RF verapamil 120 mg Tablet Extended Release 120 mg PO DAILY 30 Days Qty: 30 0RF Protocol: Hold for SBP/HR < HOLD for SBP < : 90 HOLD for HR < : 60 ipratropium-albuterol 0.5 mg-3 mg(2.5 mg base)/3 mL solution for nebulization 3 ml inhalation TID PRN (Reason: wheezing) 30 Days Qty: 90 0RF quetiapine 100 mg Tablet 100 mg PO BID@0900,1800 30 Days Qty: 30 0RF mirtazapine 30 mg tablet 30 mg PO BEDTIME 30 Days Qty: 30 0RF Discharge Orders: Discharge Order (Routine); Ordered 12/28/23 Ordered By: Lily Johnson Diet: Regular diet Activity on Discharge: As tolerated Stand Alone Forms: Patient Portal Discharge page, Community Support Print Language: Brazilian Care Plan Goals: Maintain mood and safe behaviors Take medications as prescribed Continue to pursue sobriety Practice coping skills Continue with outpatient providers and reach out to them as needed Health Concerns: Mood stability and behaviors Sobriety Plan of Treatment: Follow up with your PCP, psychiatric provider and other outpatient providers regarding above concerns Take medications as prescribed Assessment: Patient was interviewed prior to discharge and found to be fully oriented and without SI or HI. Patient has insight and demonstrates good judgment in terms of wanting to pursue treatment. Patient has a safety plan that includes presenting to the closest ER or calling 911 if feeling unsafe. Discharge Date/Time: 12/28/23 11:00
[2023-12-28] MEDS: Naloxone HCl Nasal TAKE HOME 4 MG SPRAY 8 MG NOSTRILALT (10:34)
== END 2023-12-28 11:00 | disposition home or self-care (01) | DRG 751 ==
PROVIDERS: Admitting Provider Psychiatry & Neurology Psychiatry; PCP Internal Medicine; Responsible Provider Registered Nurse; Visit Provider Psychiatry & Neurology Psychiatry
DX: F32.3 Major depressive disorder, single episode, severe with psychotic features (principal); R45.851 Suicidal ideations; Z91.199 Patient's noncompliance with other medical treatment and regimen due to unspecified reason; F11.20 Opioid dependence, uncomplicated; F17.210 Nicotine dependence, cigarettes, uncomplicated; G47.33 Obstructive sleep apnea (adult) (pediatric); R91.8 Other nonspecific abnormal finding of lung field; F14.10 Cocaine abuse, uncomplicated; J43.9 Emphysema, unspecified; I10 Essential (primary) hypertension; R63.4 Abnormal weight loss; Z68.20 Body mass index [BMI] 20.0-20.9, adult; N40.0 Benign prostatic hyperplasia without lower urinary tract symptoms; Z71.6 Tobacco abuse counseling; Z79.899 Other long term (current) drug therapy
CPT/HCPCS: 36415; 70553; 71250; 80053; 80061; 87086; A9585

== ENCOUNTER 2023-12-15 15:26 | Outpatient (BNV) | payer MEDICAID, SELFPAY | END 2023-12-26 14:15 | PROVIDERS: Admitting Provider Psychiatry & Neurology Psychiatry; PCP Internal Medicine; Responsible Provider Registered Nurse; Visit Provider Radiology Vascular & Interventional Radiology | DX: R91.8 Other nonspecific abnormal finding of lung field (principal) | CPT/HCPCS: 71250 ==

== ENCOUNTER → 2023-12-15 15:26 | Outpatient (BNV) | payer OTHER, SELFPAY | PROVIDERS: Admitting Provider Psychiatry & Neurology Psychiatry; PCP Internal Medicine; Responsible Provider Registered Nurse; Visit Provider Psychiatry & Neurology Psychiatry | DX: F32.3 Major depressive disorder, single episode, severe with psychotic features (principal) | CPT/HCPCS: 99231; 99233 ==

== ENCOUNTER → 2023-12-15 15:26 | Outpatient (BNV) | payer MEDICAID, SELFPAY | PROVIDERS: Admitting Provider Psychiatry & Neurology Psychiatry; PCP Internal Medicine; Responsible Provider Registered Nurse; Visit Provider Physician Assistant | DX: Z00.00 Encounter for general adult medical examination without abnormal findings (principal); R63.4 Abnormal weight loss; R91.8 Other nonspecific abnormal finding of lung field | CPT/HCPCS: 99222; 99499 ==

== ENCOUNTER → 2023-12-15 15:26 | Outpatient (BNV) | payer MEDICAID, SELFPAY | PROVIDERS: Admitting Provider Psychiatry & Neurology Psychiatry; PCP Internal Medicine; Responsible Provider Registered Nurse; Visit Provider Internal Medicine Pulmonary Disease | DX: R91.8 Other nonspecific abnormal finding of lung field (principal); J44.9 Chronic obstructive pulmonary disease, unspecified; F17.210 Nicotine dependence, cigarettes, uncomplicated | CPT/HCPCS: 99232 ==

== ENCOUNTER → 2023-12-26 11:53 | Day surgery (SDC) | payer MEDICAID, SELFPAY ==
--- NOTE | ~2023-12-26 | CT_ITS ---
History: 58-year-old male with suspected right lower lobe tumor based upon CT examination obtained on 10/31/2023. Presents for CT-guided biopsy. Procedure performed: 1. Aborted CT-guided lung biopsy with limited CT of the chest only. Physician: Ev Dickens MD FSIR Anesthesia: IV MAC anesthesia administered by anesthesiology. Specimen: None Drain: None Estimated blood loss: None Complications: None Procedure in detail: Informed and written consent was obtained. The patient was placed left lateral decubitus on the CT examination table. CT of the chest showed that the previously solid mass likely represented a resolving postobstructive pneumonia as there were no masslike features and only a mild cavitary residual area with minimal surrounding inflammatory findings with few tree-in-bud opacities and mild interstitial thickening. Other findings of the lungs are unchanged since the prior study 10/31/23. Based upon this, the biopsy was aborted. Summary: Aborted CT-guided lung biopsy given resolution of previously seen mass as described above.
[2023-12-26 12:14] VITALS: BMI 20.4
[2023-12-26 12:21] LABS: Hematocrit 29.4 % (42.0-52.0); Mean Corpuscular Hemoglobin 30.6 pg (27.0-33.0); Mean Corpuscular Volume 89.9 fL (80.0-98.0); Mean Platelet Volume 8.2 fL (9.4-12.4); Platelet Count 416 X10*3/uL (160-400); Red Blood Count 3.27 X10*6/uL (4.60-5.80); Red Cell Distribution Width 15.9 % (11.0-16.0); White Blood Count 6.4 X10*3/uL (4.8-10.8)
[2023-12-26 12:28] VITALS: BP 126/77; PULSE 91; RESP 16; TEMP 37.2; O2SAT 96
[2023-12-26 12:29] LABS: INTERNATIONAL NORM RATIO 0.9 (0.9-1.1); Prothrombin Time 11.2 SEC (11.1-13.3)
--- NOTE | 2023-12-26 13:37 | PC.NURSE ---
Patient in [facility]. Package Line Relief Operator at bedside. States he has not used any cocaine for 2 months, no marijuana for [address] Tyson aware. No new orders at this time.
[2023-12-26 14:52] VITALS: BP 100/64; PULSE 83; RESP 15; TEMP 36.8; O2SAT 97
[2023-12-26 15:07] VITALS: BP 122/76; PULSE 85; RESP 20; TEMP 36.8; O2SAT 97
== END ==
LOC: HO.SSS 11:54
PROVIDERS: Physician Assistant Surgical; PCP Internal Medicine; Visit Provider Student in an Organized Health Care Education/Training Program
DX: R91.8 Other nonspecific abnormal finding of lung field (principal); Z53.8 Procedure and treatment not carried out for other reasons
CPT/HCPCS: 32408; 36415; 71250; 85027; 85610; J2250; J2704

== ENCOUNTER 2024-01-04 10:46 | Outpatient (REF) | payer MEDICAID, SELFPAY ==
--- NOTE | ~2024-01-04 | XR_ITS ---
EXAMINATION: XR SHOULDER, RIGHT CLINICAL INFORMATION: Right shoulder pain with history of clavicular fracture COMPARISON: Right shoulder 02/28/2011 (report only), CT chest 10/30/2013 TECHNIQUE: AP external rotation, Grashey, scapular Y, and axillary views of the right shoulder. FINDINGS: The bones and soft tissues are unremarkable aside from an old healed right midclavicular fracture. No acute fractures. Glenohumeral and acromioclavicular alignment is anatomic with normal joint space. No abnormal soft tissue calcifications. XR/XR shoulder RT min 2V IMPRESSION: No acute finding. Old healed right midclavicular fracture.
== END 2024-01-04 10:47 | disposition home or self-care (01) ==
LOC: HO.HHCX 10:46
PROVIDERS: Visit Provider Registered Nurse
DX: M25.511 Pain in right shoulder (principal)
CPT/HCPCS: 73030

== ENCOUNTER 2024-01-12 10:08 | Outpatient (AMB) | payer MEDICAID, SELFPAY ==
[2024-01-12 10:10] VITALS: BP 110/62; PULSE 97; O2SAT 98; BMI 20.6
--- NOTE | 2024-01-12 10:10 | A.OFFVIS_ITS ---
Vital Signs 01/12/24 10:10 Height 5 ft 4 in Weight 120 lb 2.431 oz BMI 20.6 BP 110/62 Blood Pressure Location Rt brachial Position Sitting Pulse 97 Pulse Source Doppler Pulse Oximetry (%) 98 Oxygen Delivery Method Room Air Intake Visit Reasons: emphysema Instrumentation Engineering Technician Required: Yes Instrumentation Engineering Technician Name: Sheila Xavier CaleCarina Allergies ibuprofen Allergy (Intermediate, Verified 12/26/23 12:13) Stomach Upset penicillin V Allergy (Intermediate, Verified 12/26/23 12:13) rash HPI HPI emphysema: Details: 58-year-old gentleman, recent 30+ pack-year smoker, followed for underlying moderate COPD, pulmonary nodules, and unrestful sleep/snoring. After the last office visit patient was seen during psychiatric hospitalization for concern of right lower lobe pulmonary mass and biopsy was ordered, however the time of biopsy the mass has resolved, and thus no biopsy was obtained. Patient states his symptoms were well controlled until he ran out of Symbicort and Spiriva and has been relying heavily on albuterol MDI. Though, he denies an acute exacerba tion. [facility] Medical History (Updated 01/12/24 @ 10:26 by Aaron Gerber MD) Routine medical exam Lung mass Suicidal ideation Polysubstance abuse Chronic back pain BPH (benign prostatic hyperplasia) Nicotine dependence Cannabis use disorder, moderate, dependence Cocaine use disorder Pulmonary nodules Emphysema of lung Anxiety Depression Asthma Surgical History Hx of cholecystectomy Social History Household Members: None Housing: Apartment Do you presently have visiting nurse or other home services: No Unable to assess alcohol history related to: Unknown Alcohol intake: current Alcohol intake frequency: former alcohol drinker Alcohol type: beer Patient Tobacco Use Status: Former Tobacco user Tobacco use type: Cigarette Cigarette Packs Per Day: 0.5 Cigarettes Per Day: 10.0 Years Smoked: many years e-Cigarette/Vaping Use: Never Used Second Hand Smoke Exposure: No Substance Use Type: Crack/Cocaine and Marijuana Advance Directives Date on File: 01/18/23 service: No Sexual orientation: Straight/Heterosexual Review of Systems Const Denies daytime sleepiness, Denies excessive sweating, Denies fatigue, Denies fever(s), Denies lethargy, Denies malaise, Denies night sweats, Denies snoring and Denies weight loss Eyes Denies blurry vision and Denies itchy eyes ENT Denies nasal congestion, Denies post nasal drip, Denies sinus pain, Denies sinus pressure and Denies other ( Thrush) Card Denies chest pain, Denies pedal edema, Denies dyspnea, Reports dyspnea on exertion, Denies orthopnea and Denies paroxysmal nocturnal dyspnea Resp Denies cough, Denies hemoptysis, Denies excessive phlegm production, Denies dyspnea, Reports dyspnea on exertion, Denies snoring and Denies wheezing GI Denies abdominal pain and Denies heartburn Musc Denies myalgias, Denies arthralgias and Denies joint swelling Skin/Breast Denies rash Neuro Denies memory loss and Denies seizure-like activity Psych Denies abnormal sleep pattern, Denies anxiety and Denies memory loss Endo Denies excessive sweating, Denies fatigue and Denies heat intolerance Alexei/Lymph Denies easy bruising Aller/Immun Denies itchy eyes, Denies seasonal rhinorrhea and Denies wheezing Physical Exam Vital Signs: Last Vital Signs Pulse 97 01/12/24 10:10 BP 110/62 01/12/24 10:10 Pulse Ox 98 01/12/24 10:10 Oxygen Delivery Method Room Air 01/12/24 10:10 BMI result Body Mass Index 20.6 Const General: no acute distress and alert Nutritional Appearance: not obese Orientation/consciousness: Other orientation findings ( oriented) HEENT Head: Yes atraumatic Eyes General: appearance normal, both eyes and all related structures Sclerae: sclerae normal EOM: EOMs intact bilaterally Neck Neck: Yes supple Lymphatic: no lymphadenopathy noted Resp Effort & Inspection: normal respiratory effort and no use of accessory muscles Auscultation: clear to auscultation bilaterally Cardio Rate: regular rate Rhythm: regular rhythm Heart sounds: no gallops, no murmurs and no rubs Skin General skin exam: other ( warm) Extrem General: No clubbing, No cyanosis and No edema Assessment & Plan Assessment & Plan (1) COPD (chronic obstructive pulmonary disease): Code(s): J44.9 - Chronic obstructive pulmonary disease, unspecified Category: Medical Plan: Suboptimal control as patient has ran out of Symbicort and Spiriva. Restart Symbicort and Spiriva. Continue albuterol MDI. (2) JERRY (obstructive sleep apnea): Code(s): G47.33 - Obstructive sleep apnea (adult) (pediatric) Category: Medical Plan: Results of sleep study reviewed, no underlying obstructive sleep apnea noted. (3) Pulmonary nodules: Code(s): R91.8 - Other nonspecific abnormal finding of lung field Category: Medical Plan: Will repeat CT chest in 6 months to evaluate for changes. Orders: Orders CT chest wo IV con 06/13/24 R91.8 - Other nonspecific abnormal finding of lung field Medications: Refilled budesonide-formoterol 160-4.5 mcg/actuation (Symbicort) 2 puffs inhalation BID 30 days 10.2 grams 6RF R91.8 - Other nonspecific abnormal finding of lung field tiotropium bromide 2.5 mcg/actuation (Spiriva Respimat) 2 puffs inhalation DAILY 30 days 4 grams 6RF R91.8 - Other nonspecific abnormal finding of lung field Coding Level of Care Code Est Pt Level 4 (67334) Diagnoses COPD (chronic obstructive pulmonary disease) J44.9 JERRY (obstructive sleep apnea) G47.33 Pulmonary nodules R91.8
== END 2024-01-12 10:24 | disposition home or self-care (01) ==
PROVIDERS: PCP Internal Medicine; Referring Provider Internal Medicine; Visit Provider Internal Medicine Pulmonary Disease
DX: J44.9 Chronic obstructive pulmonary disease, unspecified (principal); G47.33 Obstructive sleep apnea (adult) (pediatric); R91.8 Other nonspecific abnormal finding of lung field
CPT/HCPCS: 99214

== ENCOUNTER → 2024-01-12 10:08 | Outpatient (BNVA) | payer MEDICAID, SELFPAY | PROVIDERS: PCP Internal Medicine; Visit Provider Internal Medicine Pulmonary Disease | DX: J44.9 Chronic obstructive pulmonary disease, unspecified (principal); R91.8 Other nonspecific abnormal finding of lung field; G47.33 Obstructive sleep apnea (adult) (pediatric) | CPT/HCPCS: 99212 ==

== ENCOUNTER → 2024-01-25 12:13 | Outpatient (BNVA) | payer MEDICAID, SELFPAY | PROVIDERS: PCP Internal Medicine; Visit Provider Nurse Practitioner Family | DX: N40.0 Benign prostatic hyperplasia without lower urinary tract symptoms (principal); N32.89 Other specified disorders of bladder; N20.0 Calculus of kidney; R10.9 Unspecified abdominal pain | CPT/HCPCS: 51798; 81003; 99212 ==

== ENCOUNTER 2024-01-25 12:31 | Outpatient (AMB) | payer MEDICAID, SELFPAY ==
--- NOTE | 2024-01-25 13:16 | MHC.OFFVIS ---
Intake Visit Reasons: 1m/CT(set) Intake Note: Patient is Present for PVR/CT Follow Up Urology Med: Tamsulosin Antibiotic Allergy: Penicillin Blood Thinner:None Todays PVR: 15ml Finishing Supervisor Required: Yes Finishing Supervisor Name: VAL RUSSO-AVANII Allergies ibuprofen Allergy (Intermediate, Verified 02/05/24 14:00) Stomach Upset penicillin V Allergy (Intermediate, Verified 02/05/24 14:00) rash Medication List - Last Reconciled 01/25/24 by TARA Bernstein- albuterol sulfate 90 mcg/actuation (Ventolin HFA) 2 puffs inhalation Q4-6H PRN 30 days atorvastatin 40 mg PO BEDTIME 30 days budesonide-formoterol 160-4.5 mcg/actuation (Symbicort) 2 puffs inhalation BID 30 days buprenorphine-naloxone 8-2 mg (Suboxone) 1 film sublingual DAILY 7 days clonazepam (Klonopin) 0.5 mg PO BID PRN cyclobenzaprine 10 mg PO TID PRN 30 days ferrous sulfate (FeroSul) 325 mg PO BEDTIME 30 days ferrous sulfate 325 mg PO DAILY hydroxyzine HCl 50 mg PO BID PRN 30 days mirtazapine 45 mg PO BEDTIME 30 days nicotine 21 mg transdermal DAILY 30 days omeprazole 20 mg PO DAILY@0630 30 days quetiapine 50 mg PO BID@0900,1800 30 days quetiapine 400 mg PO BEDTIME 30 days risperidone 4 mg PO BEDTIME 30 days tamsulosin 0.8 mg (2 x 0.4 mg) PO DAILY 30 days tiotropium bromide 2.5 mcg/actuation (Spiriva Respimat) 2 puffs inhalation DAILY 30 days topiramate 50 mg PO BEDTIME 30 days venlafaxine ER 150 mg PO DAILY 30 days venlafaxine ER 150 mg PO DAILY zolpidem 5 mg PO BEDTIME PRN 15 days HPI Comments Details: Augustin is a 58-year-old Portuguese-speaking male patient of Dr. Doran. He has a past medical history of suicidal ideation, polysubstance abuse, chronic back pain, nicotine dependence, cannabis use disorder, cocaine use disorder, pulmonary nodules, emphysema, asthma, anxiety, and depression. He presents to the office today for follow-up of his nephrolithiasis as well as microscopic hematuria in the setting of nicotine dependence. In discussion with the patient today he continues to report ongoing right-sided flank pain. Recent CT results reviewed with the patient today. A cluster of small calculi versus a developing casting calculus is seen in the upper pole infundibulum of the right kidney measuring in aggregate about 7 mm. 5 calculi measuring 1-2 mm are seen throughout the right kidney. 7 calculi measuring 1-2 mm are seen throughout the left kidney. There is no hydronephrosis. The nephrograms are symmetric. Simple cyst is seen in the right kidney for which no imaging follow-up is recommended per radiology report. Urographic excretion is symmetric. No hydroureteronephrosis. No ureteral abnormality. No discrete bladder mass. Trabeculated urinary bladder. Previous urine cytology results reviewed with the patient today. 09/09 Negative for high-grade urothelial carcinoma. In office urinalysis results reviewed with the patient today. No microscopic hematuria noted. Discussed at length further treatment options to include surveillance monitoring versus ureteroscopy. Risks and benefits of these interventions were discussed. He otherwise denies any bothersome urinary issues. He denies urinary urgency, urinary frequency, incontinence, nocturia, hematuria, dysuria, foul smelling urine, changes to urinary stream, flank pain, fever, and or chills. He is happy with his current voiding parameters on 0.8 mg of Flomax daily. In review of patient's chart it appears last PSA 01/02 2.3. Discussed importance of obtaining PSA as ordered by PCP. In review of patient's chart it appears PSA was ordered September however patient has not yet had lab performed. PVR 15 mLs. [facility] Medical History Routine medical exam Lung mass Suicidal ideation Polysubstance abuse Chronic back pain BPH (benign prostatic hyperplasia) Nicotine dependence Cannabis use disorder, moderate, dependence Cocaine use disorder Pulmonary nodules Emphysema of lung Anxiety Depression Asthma Surgical History Hx of cholecystectomy Social History (Updated 02/05/24 @ 14:01 by MIMA Bey) Household Members: None Housing: Apartment Do you presently have visiting nurse or other home services: No Unable to assess alcohol history related to: Unknown Alcohol intake: current Alcohol intake frequency: former alcohol drinker Alcohol type: beer Patient Tobacco Use Status: Former Tobacco user Tobacco use type: Cigarette Cigarette Packs Per Day: 0.5 Cigarettes Per Day: 10.0 Years Smoked: many years e-Cigarette/Vaping Use: Never Used Second Hand Smoke Exposure: No Substance Use Type: Crack/Cocaine and Marijuana Advance Directives Date on File: 01/18/23 service: No Current occupational status: unemployed Current occupation: right hand dominant Sexual orientation: Straight/Heterosexual Review of Systems Eyes Reports no additional complaints ENT Reports no additional complaints Card Reports as per HPI Resp Reports as per HPI GI Reports no additional complaints Reports as per HPI Musc Reports no additional complaints Neuro Reports no additional complaints Psych Reports no additional complaints Endo Reports no additional complaints Alexei/Lymph Reports no additional complaints Aller/Immun Reports no additional complaints Physical Exam Const General: cooperative, comfortable, no acute distress, well developed, alert and awake Orientation/consciousness: patient oriented x3 Limitations: no limitations HEENT Head: Yes normal to inspection, Yes normocephalic and Yes atraumatic Ears: hearing grossly normal bilaterally Eyes General: appearance normal, both eyes and all related structures Neck Neck: Yes normal visual inspection and Yes trachea midline Chest Chest palpation & inspection: normal inspection of the chest Resp Effort & Inspection: normal respiratory effort and able to speak in complete sentences Cardio Rate: regular rate GI Inspection: Yes normal to inspection General: Yes no CVA tenderness Back/Spine/Pelvis Back: no CVA tenderness Skin General skin exam: no rashes or lesions noted Neuro General: patient oriented x3 Extrem General: Yes normal to inspection Psych Appearance: grossly normal and well kempt Mental Status: mental status grossly normal Speech and movement: Normal speech and movement present and Clear speech present Affect: normal affect Attitude: cooperative Thought process: Normal thought process present Thought content: Normal thought content present Insight: Fair insight present (Psych) Judgement: Fair judgement present (Psych) Office Procedures Post Void Residual Post Residual Void Post Void Residual (PVR): 15 [id number]-Ihmz Void Residual by ultrasound Results AMB Urinalysis, Automated UA Leukoctes 0 Etta/uL Last Edit by MIMA Acosta on 01/25/24 13:26 UA Nitrite Negative Last Edit by MIMA Acosta on 01/25/24 13:26 UA Urobilinogen 0.2 mg/dL Last Edit by MIMA Acosta on 01/25/24 13:26 UA Protein 15 mg/dL Last Edit by Sheila Alba, RMA on 01/25/24 13:26 UA pH 5.5 Last Edit by Sheila Alba, RMA on 01/25/24 13:26 UA Blood 0 Raymundo/uL Last Edit by Sheila Alba, RMA on 01/25/24 13:26 UA Specific [place] 1.025 Last Edit by Sheila Alba, RMA on 01/25/24 13:26 UA Ketone Negative Last Edit by Sheila Alba, RMA on 01/25/24 13:26 UA Bilirubin 0 mg/dL Last Edit by Sheila Alba, RMA on 01/25/24 13:26 UA Glucose 0 mg/dL Last Edit by Sheila Alba, A on 01/25/24 13:26 Results Reviewed Results Reviewed: Laboratory Last Values Urine pH (Auto) 5.5 01/25/24 13:21 Specific [place] (Auto) 1.025 01/25/24 13:21 Urine Protein (Auto) 15 mg/dL 01/25/24 13:21 Glucose (UA)(Auto) 0 mg/dL 01/25/24 13:21 Urine Ketones (Auto) Negative 01/25/24 13:21 Urine Blood (Auto) 0 Raymundo/uL 01/25/24 13:21 Urine Nitrite (Auto) Negative 01/25/24 13:21 Urine Bilirubin (Auto) 0 mg/dL 01/25/24 13:21 Urine Urobilinogen (Auto) 0.2 mg/dL 01/25/24 13:21 Leukocyte Esterase (Auto) 0 Etta/uL 01/25/24 13:21 Date of Service: 11/23/23 EXAMINATION: CT ABDOMEN AND PELVIS WITHOUT AND WITH CONTRAST FINDINGS: LUNG BASES: Emphysema and diffuse airway wall thickening. Partial visualization of the inferior aspect of the known right lower lobe mass. LIVER, GALLBLADDER, AND BILIARY TREE: The liver is normal in size, shape, and attenuation. No focal hepatic lesion or biliary ductal dilatation is present. Cholecystectomy. PANCREAS: No discrete pancreatic mass or pancreatic ductal dilatation. SPLEEN: Unremarkable. ADRENAL GLANDS: No adrenal mass. KIDNEYS AND URETERS: A cluster of small calculi versus a developing casting calculus is seen in the upper pole infundibulum of the right kidney measuring in aggregate about 7 mm. 5 calculi measuring 1-2 mm are seen throughout the right kidney. 7 calculi measuring 1-2 mm are seen throughout the left kidney. There is no hydronephrosis. The nephrograms are symmetric. Simple cyst is seen in the right kidney for which no imaging follow-up is recommended. Urographic excretion is symmetric. No hydroureteronephrosis. No ureteral abnormality. BLADDER: No discrete bladder mass. Trabeculated urinary bladder. GASTROINTESTINAL TRACT: The small and large bowel are normal in caliber. ABDOMINAL WALL: Probable small bilateral fat-containing inguinal hernias. Posteromedial bilateral diaphragmatic hernias containing fat. LYMPH NODES: No lymphadenopathy. VASCULAR: Aortoiliac atherosclerosis. No aortic aneurysm. PELVIC VISCERA: The prostate is mildly enlarged. OSSEUS STRUCTURES: Degenerative changes in the spine. IMPRESSION: Numerous shortening renal calculi bilaterally No suspicious renal mass. Mildly enlarged prostate and trabeculated urinary bladder consistent with chronic bladder outlet obstructive physiology. Incomplete visualization of known right lower lobe mass. Follow-up as per prior chest CT is recommended Assessment & Plan Assessment & Plan (1) Enlarged prostate: Code(s): N40.0 - Benign prostatic hyperplasia without lower urinary tract symptoms Category: Medical (2) Bladder trabeculation: Code(s): N32.89 - Other specified disorders of bladder Category: Medical (3) Nephrolithiasis: Code(s): N20.0 - Calculus of kidney Category: Medical (4) Flank pain: Code(s): R10.9 - Unspecified abdominal pain Category: Medical Plan In office urinalysis results reviewed with the patient today; as noted above. PVR [address] results reviewed with the patient today; as noted above. Discussed surveillance monitoring verses surgical intervention regarding nephrolithiasis and patient reporting intermittent episodes of right-sided flank pain; risks and benefits of these interventions were discussed at length. Continue Flomax 0.8 mg daily as discussed and prescribed. Patient reports be happy with current voiding parameters on 0.8 mg of Flomax daily. Discussed, educated, and stressed the importance of limiting/quitting nicotine dependence for overall health and well-being. Discussed and stressed the importance of obtaining PSA as ordered by PCP as well as myself. Will obtain renal ultrasound in 6 months. Follow-up in 6 months with imaging to be completed prior; or sooner with any issues, concerns, and or questions. Orders: Orders AMB Urinalysis Automated 01/25/24 Z13.9 - Encounter for screening, unspecified US renal BI 6 Months N20.0 - Calculus of kidney AMB Post Void Residual by ultrasound 01/25/24 N40.0 - Benign prostatic hyperplasia without lower urinary tract symptoms Prostate Specific Antigen 01/25/24 N40.0 - Benign prostatic hyperplasia without lower urinary tract symptoms Patient Instructions: The patient had an opportunity to ask questions regarding the treatment plan. All questions were answered. Physical exam, labs, and imaging were discussed and reviewed in detail. As well as risks, benefits, and discussion of treatment choices. No major barriers to understanding were identified. The patient expressed understanding and agreement with the above treatment plan. The patient was made aware they should contact our office by phone for worsening of their current condition, the appearance of new symptoms, or with any questions or concerns. Compliance is encouraged with any medications and follow up testing that is ordered. It is a privilege to be allowed the opportunity to participate in? your urological care.? Again, if you have any questions or concerns If you have any questions or concerns please do not hesitate to contact me. The office is [phone]. This note is constructed using voice recognition software. While every effort has been made to ensure accuracy pipe turner errors may have been included. Yours sincerely, STEPHANY Bernstein Coding Level of Care Code Est Pt Level 3 (81393) Diagnoses Enlarged prostate N40.0 Bladder trabeculation N32.89 Nephrolithiasis N20.0 Flank pain R10.9 CPT Codes Post Residual Void - PVR CPT Code: 68412-Bbga Void Residual by ultrasound ([id number])
== END 2024-01-25 13:52 | disposition home or self-care (01) ==
PROVIDERS: PCP Internal Medicine; Visit Provider Nurse Practitioner Family
DX: N40.0 Benign prostatic hyperplasia without lower urinary tract symptoms (principal); N32.89 Other specified disorders of bladder; N20.0 Calculus of kidney; R10.9 Unspecified abdominal pain
CPT/HCPCS: 99213

== ENCOUNTER 2024-02-05 13:36 | Outpatient (AMB) | payer MEDICAID, SELFPAY ==
[2024-02-05 14:00] VITALS: BMI 20.6
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
== END 2024-02-05 14:40 | disposition home or self-care (01) ==
PROVIDERS: PCP Internal Medicine; Visit Provider Physician Assistant
DX: M77.8 Other enthesopathies, not elsewhere classified (principal); M25.511 Pain in right shoulder
CPT/HCPCS: 20610; 99203

== ENCOUNTER → 2024-02-05 13:36 | Outpatient (BNVA) | payer MEDICAID, SELFPAY | PROVIDERS: PCP Internal Medicine; Visit Provider Physician Assistant | DX: M25.511 Pain in right shoulder (principal); M77.8 Other enthesopathies, not elsewhere classified | CPT/HCPCS: 20610; 99212; J1010 ==

== ENCOUNTER 2024-03-24 13:09 | Emergency (ER) | payer MEDICAID, SELFPAY ==
[2024-03-24] VITALS (7 sets, daily range): BP systolic 119–136; BP diastolic 68–84; PULSE 84–108; RESP 15–24; TEMP 36.7; O2SAT 94–96; BMI 22.3
--- NOTE | ~2024-03-24 | XR_ITS ---
EXAMINATION: CHEST 2 VIEWS CLINICAL INFORMATION: pleuritic chest pain. COMPARISON: 09/29/2023. TECHNIQUE: PA and lateral views of the chest obtained. FINDINGS: The lungs are well expanded. Chronic-appearing coarse reticular markings are seen. No focal infiltrate, effusion, edema, or pneumothorax. Cardiac and mediastinal silhouettes are within normal limits for technique. No acute bony abnormality seen XR/XR chest 2V IMPRESSION: No evidence of acute disease. Electronically signed by: Sergio Sequeira MD 03/24/2024 06:31 PM EDT RP
--- NOTE | ~2024-03-24 | CT_ITS ---
EXAMINATION: CT ANGIOGRAM CHEST, PE PROTOCOL CLINICAL INFORMATION: right sided chest pain, tachypnea - DDIMER - 276 COMPARISON: CT chest October 31, 2023 TECHNIQUE: Multidetector CT pulmonary angiography of the thorax was performed according to the pulmonary embolism protocol after intravenous administration of 65 mL of intravenous Omnipaque. Reformatted coronal and sagittal imaging was performed. 3-D MIP images performed at a dedicated separate workstation. This CT examination was performed using dose optimization techniques as appropriate, variously including the following: *Automated exposure control *Adjustment of mA and/or kV according to patient size (this includes techniques or standardized protocols for targeted exams where dose is matched to indication/reason for exam; i.e. extremities or head) *Use of iterative reconstruction technique DLP: 128 mGy-cm QUALITY: Overall Exam Quality: Satisfactory. Pulmonary Arterial Enhancement: Adequate. Breath Hold: Adequate. Artifacts Impacting Image Quality: None. FINDINGS: VASCULAR: Heart: Normal in size. Coronary artery calcifications not present. Aorta: No thoracoabdominal aortic aneurysm. Three vessel arch. Pulmonary Artery: No filling defect is identified in the central, lobar, segmental or subsegmental pulmonary arterial branches to suggest pulmonary embolus. NONVASCULAR: THORAX: Thyroid Gland: The visualized thyroid gland is normal. Lymph Nodes: No supraclavicular, axillary, mediastinal or hilar lymphadenopathy is identified. Airways: The trachea and central bronchi are normal. Bronchial wall thickening. Lungs: Severe emphysematous changes. Right lower lobe atelectasis. Previously seen 3.1 cm mass at the right central base is no longer present and was likely inflammatory/infectious. No suspicious nodules or masses. Pleura: No pleural effusion. No pneumothorax. Upper Abdomen: Post cystectomy clips. Right upper pole 1.9 cm simple renal cyst; no follow-up needed. Soft Tissues/Musculoskeletal: No acute fracture or significant focal lesion. CT/CT angio chest PE protocol IMPRESSION: 1. No acute pulmonary embolus to the subsegmental level. 2. Severe emphysema and chronic bronchitis. 3. Resolution of the previously seen suspicious 3.1 cm right lower lobe mass, which was likely infectious in etiology. Fleischner guidelines were followed. Electronically signed by: Richard Greco DO 03/24/2024 09:30 PM EDT
--- NOTE | 2024-03-24 13:34 | ECG_ITS ---
Test Reason : CHEST PAIN Blood Pressure : / mmHG Vent. Rate : 093 BPM Atrial Rate : 093 BPM P-R Int : 150 ms QRS Dur : 106 ms QT Int : 362 ms P-R-T Axes : 081 014 087 degrees QTc Int : 450 ms Normal sinus rhythm Incomplete right bundle branch block Borderline ECG When compared with ECG of 29-SEP-2023 19:25, No significant change was found Referred By: Generic ED Physician Electronically Signed By:HERSON GARZON
[2024-03-24 13:49] LABS: Basophils Percent Auto 0.6 % (0-2); Eosinophils Absolute Auto 0.2 X10*3/uL (0.0-0.4); Eosinophils Percent Auto 2.5 % (0-4); Hematocrit 32.2 % (42.0-52.0); Hemoglobin 10.9 g/dl (14.0-18.0); Imm Gran Abs Auto 0.03 X10*3/uL (0.00-0.03); Imm Gran Pct Auto 0.4 % (0.0-0.4); Lymphocytes Absolute Auto 1.3 X10*3/uL (1.2-4.9); Lymphocytes Percent Auto 17.4 % (20-40); MANUAL DIFF FLAG NO; Mean Corpuscular HGB Conc 33.9 g/dl (31.0-36.0); Mean Corpuscular Hemoglobin 30.3 pg (27.0-33.0); Mean Corpuscular Volume 89.4 fL (80.0-98.0); Mean Platelet Volume 8.2 fL (9.4-12.4); Monocytes Absolute Auto 0.6 X10*3/uL (0.1-1.2); Monocytes Percent Auto 8.6 % (2-11); Neutrophils Absolute Auto 5.1 x10*3/uL (2.0-8.3); Neutrophils Percent Auto 70.5 % (45-73); Platelet Count 268 X10*3/uL (160-400); Red Cell Distribution Width 13.5 % (11.0-16.0); White Blood Count 7.3 X10*3/uL (4.8-10.8)
[2024-03-24 14:02] LABS: Alanine Aminotransferase 10 U/L (0-40); Albumin Level 3.4 g/dL (3.5-5.0); Alkaline Phosphatase 65 U/L (39-117); Anion Gap 13 (12-20); Aspartate Amino Transferase 9 U/L (5-37); Bilirubin Total 0.1 mg/dL (0.0-1.0); Blood Urea Nitrogen 6 mg/dL (9-16); Calcium 9.3 mg/dL (8.4-10.2); Carbon Dioxide 26 mmol/L (22-29); Chloride 105 mmol/L (96-108); Creatinine Clr Calc Pharmacy 82.9; Estimated Glomerular Filt Rate > 60; Glucose Random 176 mg/dL (60-115); Magnesium 1.8 mg/dL (1.6-2.6); Potassium 3.6 mmol/L (3.3-5.1); Sodium 140 mmol/L (135-145); Total Protein 6.4 g/dL (6.5-8.0)
[2024-03-24 14:09] LABS: Troponin-I High Sensitivity < 2.7 ng/L (<3.5-35.0)
[2024-03-24 17:23] LABS: Appearance Urine Clear; Color Urine Dark Yellow; Glucose Urine UA Negative (Negative); Leukocyte Esterase Urine Trace (Negative); Nitrite Urine Negative (Negative); PH 7.5 (5.0-9.0); UMIC TRIGGER UACC YES; Urine Blood Negative (Negative); Urine Ketones Negative (Negative); Urine Protein Trace mg/dL (Neg-Trace)
--- NOTE | 2024-03-24 17:38 | ED.CHESTPAIN ---
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 Patient reports his pain started 2 days ago. He endorses cocaine use the day before the onset of his pain. His pain is worse with walking or taking a deep breath Denies any fevers, chills recent travel Patient is unsure if he has any history of DVT or PE He has no other complaints or concerns at this time Related Data Home Medications ?Medication ?Instructions ?Recorded ?Confirmed clonazepam 0.5 mg tablet (Klonopin) 0.5 mg PO BID PRN anxiety 12/15/23 02/05/24 ferrous sulfate 325 mg (65 mg 325 mg PO DAILY 01/25/24 02/05/24 iron) tablet,delayed release venlafaxine 150 mg 150 mg PO DAILY 01/25/24 02/05/24 capsule,extended release 24 hr Previous Rx's ?Medication ?Instructions ?Recorded albuterol sulfate 90 mcg/actuation 2 puff inhalation Q4-6H PRN 06/30/23 aerosol inhaler (Ventolin HFA) Wheezing 30 days #6.7 grams atorvastatin 40 mg tablet 40 mg PO BEDTIME 30 days #30 tabs 06/30/23 cyclobenzaprine 10 mg tablet 10 mg PO TID PRN back pain 30 days 06/30/23 #60 tabs ferrous sulfate 325 mg (65 mg 325 mg PO BEDTIME 30 days #30 tabs 06/30/23 iron) tablet (FeroSul) tamsulosin 0.4 mg capsule 0.8 mg (2 x 0.4 mg) PO DAILY 30 06/30/23 days #60 caps zolpidem 5 mg tablet 5 mg PO BEDTIME PRN insomnia 15 06/30/23 days #15 tabs buprenorphine 8 mg-naloxone 2 mg 1 film sublingual DAILY 7 days #7 12/28/23 sublingual film (Suboxone) ea hydroxyzine HCl 50 mg tablet 50 mg PO BID PRN anxiety 30 days 12/28/23 #60 tabs mirtazapine 45 mg tablet 45 mg PO BEDTIME 30 days #30 tabs 12/28/23 nicotine 21 mg/24 hr daily 21 mg transdermal DAILY 30 days 12/28/23 transdermal patch #28 ea omeprazole 20 mg capsule,delayed 20 mg PO DAILY@0630 30 days #30 12/28/23 release caps quetiapine 400 mg tablet 400 mg PO BEDTIME 30 days #30 tabs 12/28/23 quetiapine 50 mg tablet 50 mg PO BID@0900,1800 30 days #60 12/28/23 tabs risperidone 4 mg tablet 4 mg PO BEDTIME 30 days #30 tabs 12/28/23 topiramate 50 mg tablet 50 mg PO BEDTIME 30 days #30 tabs 12/28/23 venlafaxine 150 mg tablet,extended 150 mg PO DAILY 30 days #30 tabs 12/28/23 release 24 hr budesonide-formoterol HFA 160 2 puff inhalation BID 30 days 02/05/24 mcg-4.5 mcg/actuation aerosol #10.2 grams inhaler (Symbicort) tiotropium bromide 2.5 2 puff inhalation DAILY 30 days #4 02/05/24 mcg/actuation mist for inhalation grams (Spiriva Respimat) Allergies Allergy/AdvReac Type Severity Reaction Status Date / Time ibuprofen Allergy Intermediate Stomach Verified 03/24/24 13:28 Upset penicillin V Allergy Intermediate rash Verified 03/24/24 13:28 Review of Systems Constitutional: Constitutional: Denies body ache(s), Denies chills and Denies fever(s) ENT: Denies vertigo Cardiovascular: Cardiovascular: Reports chest pain, Reports chest pain at rest and Denies dyspnea Respiratory: Respiratory: Reports pain on inspiration and Denies dyspnea Gastrointestinal: Gastrointestinal: Denies abdominal pain, Denies nausea and Denies vomiting Musculoskeletal: Musculoskeletal: Denies back pain Integumentary/Breasts: Skin/Breast: Denies rash Neurologic: Denies vertigo [facility] Past Medical History Medical History Routine medical exam Lung mass Suicidal ideation Polysubstance abuse Chronic back pain BPH (benign prostatic hyperplasia) Nicotine dependence Cannabis use disorder, moderate, dependence Cocaine use disorder Pulmonary nodules Emphysema of lung Anxiety Depression Asthma Surgical History Hx of cholecystectomy Social History Social History (Updated 02/05/24 @ 14:01 by MIMA Bey) Household Members: None Housing: Apartment Do you presently have visiting nurse or other home services: No Unable to assess alcohol history related to: Unknown Alcohol intake: current Alcohol intake frequency: former alcohol drinker Alcohol type: beer Patient Tobacco Use Status: Former Tobacco user Tobacco use type: Cigarette Cigarette Packs Per Day: 0.5 Cigarettes Per Day: 10.0 Years Smoked: many years Smoked in Last 30 Days: Yes e-Cigarette/Vaping Use: Never Used Second Hand Smoke Exposure: No Use of substances other than those prescribed or required for medical reasons: Yes Substance Use Type: Crack/Cocaine Substance Use Frequency: Weekly Advance Directives: Yes Advance Directives on File: Yes Advance Directives Date on File: 01/18/23 Do you have a plan to hurt others: No Plan service: No Current occupational status: unemployed Current occupation: right hand dominant Sexual orientation: Straight/Heterosexual Physical Exam Vital Signs: Vital Signs: Last Vital Signs Temp 98.1 F 03/24/24 13:17 Pulse 87 03/24/24 20:59 Resp 16 03/24/24 20:59 BP 128/84 03/24/24 20:59 Pulse Ox 94 03/24/24 20:59 O2 Del Method Room Air 03/24/24 20:59 BMI result Body Mass Index 22.3 Const: General: healthy appearing, comfortable, no acute distress, alert and awake Nutritional Appearance: well nourished Orientation/consciousness: patient oriented x3 HEENT: Head: Yes normocephalic and Yes atraumatic Eyes: Eyelids: Yes eyelids normal Conjunctivae: conjunctivae normal Sclerae: sclerae normal Corneas: corneas normal Pupils: Equal, round and reactive pupils present EOM: EOMs intact bilaterally Neck: Neck: Yes full ROM Chest: Other: Patient had tenderness to palpation of the right anterior axillary line Chest palpation & inspection: no crepitus Resp: Other: Faint expiratory wheeze heard best in the bilateral bases Effort & Inspection: normal respiratory effort, able to speak in complete sentences and not labored Cardio: Other: No lower extremity edema bilaterally Rate: regular rate Rhythm: regular rhythm GI: Inspection: No distended Palpation (GI): Soft to palpation, not firm, nontender, no guarding and not rigid Skin: General skin exam: elasticity normal Neuro: General: patient oriented x3 Cranial nerves: Yes Equal, round and reactive pupils present and Yes Bilaterally intact EOM present Cognition (Neuro): normal cognition Course Reevaluation(s) Reevaluation #1: I ordered a CTA as the patient had a D-dimer ordered due to pleuritic chest pain. This was 276. CT angiography shows no evidence of PE, the patient is stable for discharge at time Time: 21:45 Medications Administered Discontinued Medications Generic Name Dose Route Start Last Admin Trade Name Jimq PRN Reason Stop Dose Admin Iohexol 65 ml 03/24/24 20:17 03/24/24 20:17 Iohexol 350 Mg/Ml 100 Ml Infus..Btl IV 03/24/24 20:18 65 ml ONCE ONE Administration Tramadol HCl 50 mg 03/24/24 17:37 03/24/24 17:48 Tramadol Hcl 50 Mg Tablet PO 03/24/24 17:38 50 mg ONCE ONE Administration Medical Decision Making Medical Decision Making [facility] Narrative: 58-year-old male presents for evaluation of right-sided chest pain that is atraumatic. He has no cough, fevers to suggest infectious cause. However he has a history of COPD and has faint wheezing on exam we will get a chest x-ray. This will also help rule out pneumothorax. The patient's EKG is nonischemic, troponin is negative despite 2 days of pain, ACS has been ruled out. He is tender to palpation in the right chest wall, his symptoms may be musculoskeletal in origin. I did add on a D-dimer in addition to the chest x-ray is pending Differential Diagnosis Differential Diagnoses: The differential diagnosis associated with the presentation includes Chest wall strain Costochondritis Pneumonia Pneumothorax PE less likely Lab Data [facility] Lab Attestation statement: I reviewed the patient's lab results. No leukocytosis. The patient does have a chronic normocytic anemia. Unchanged from baseline. Electrolytes without worrisome abnormality, random glucose is elevated to 176, no evidence of DKA. Troponin negative 03/24/24 13:45 03/24/24 13:45 Labs: Lab Results 03/24/24 03/24/24 03/24/24 Range/Units 13:45 16:56 18:38 WBC 7.3 (4.8-10.8) X10*3/uL RBC 3.60 L (4.60-5.80) X10*6/uL Hgb 10.9 L (14.0-18.0) g/dl Hct 32.2 L (42.0-52.0) % MCV 89.4 (80.0-98.0) fL MCH 30.3 (27.0-33.0) pg MCHC 33.9 (31.0-36.0) g/dl RDW 13.5 (11.0-16.0) % Plt Count 268 D (160-400) X10*3/uL MPV 8.2 L (9.4-12.4) fL Immature Gran % (Auto) 0.4 (0.0-0.4) % Neut % (Auto) 70.5 (45-73) % Lymph % (Auto) 17.4 L (20-40) % [place] % (Auto) 8.6 (2-11) % Eos % (Auto) 2.5 (0-4) % Baso % (Auto) 0.6 (0-2) % Lymph # (Auto) 1.3 (1.2-4.9) X10*3/uL [place] # (Auto) 0.6 (0.1-1.2) X10*3/uL Eos # (Auto) 0.2 (0.0-0.4) X10*3/uL Baso # (Auto) 0.0 (0.0-0.2) X10*3/uL Abs Immat Gran (auto) 0.03 (0.00-0.03) X10*3/uL Absolute Neuts (auto) 5.1 (2.0-8.3) x10*3/uL Absolute Nucleated RBC 0.000 (0.0-0.012) X10*3/uL Nucleated RBC % (auto) 0.0 (0.0-0.2) /100WBC D-Dimer High Sensitivty 276 NG/ML Sodium 140 (135-145) mmol/L Potassium 3.6 (3.3-5.1) mmol/L Chloride 105 (96-108) mmol/L Carbon Dioxide 26 (22-29) mmol/L Anion Gap 13 (12-20) BUN 6 L (9-16) mg/dL Creatinine 0.79 (0.5-1.4) mg/dL Estim Creat Clear Calc 82.9 Estimated GFR > 60 Random Glucose 176 H (60-115) mg/dL Calcium 9.3 (8.4-10.2) mg/dL Magnesium 1.8 (1.6-2.6) mg/dL Total Bilirubin 0.1 (0.0-1.0) mg/dL AST 9 (5-37) U/L ALT 10 (0-40) U/L Alkaline Phosphatase 65 (39-117) U/L Troponin I High Sens < 2.7 (<3.5-35.0) ng/L Total Protein 6.4 L (6.5-8.0) g/dL Albumin 3.4 L (3.5-5.0) g/dL Urine Color Dark Yellow Urine Appearance Clear Urine pH 7.5 (5.0-9.0) Ur Specific [place] 1.020 (1.005-1.025) Urine Protein Trace (Neg-Trace) mg/dL Urine Glucose (UA) Negative (Negative) mg/dL Urine Ketones Negative (Negative) mg/dL Urine Blood Negative (Negative) Urine Nitrite Negative (Negative) Ur Leukocyte Esterase Trace H (Negative) Urine RBC 0-2 (0-2) /HPF Urine WBC 0-5 (0-5) /HPF Ur Squamous Epith Cells 0-2 (0-2) /HPF Urine Bacteria None Seen (None Seen) Hyaline Casts 0-2 (0-2) /LPF Urine Opiates Screen Not Detected (Not Detect) Ur Buprenorphine Scrn Positive H (Not Detect) ng/mL Ur Oxycodone Screen Not Detected (Not Detect) ng/mL Urine Methadone Screen Not Detected (Not Detect) ng/mL Urine Fentanyl Screen Not Detected (Not Detect) Ur Barbiturates Screen Not Detected (Not Detect) Ur Phencyclidine Scrn Not Detected (Not Detect) Ur Amphetamines Screen Not Detected (Not Detect) U Benzodiazepines Scrn Not Detected (Not Detect) Urine Cocaine Screen POSITIVE H (Not Detect) U Marijuana (THC) Screen POSITIVE H (Not Detect) Independent Interpretation I performed an independent interpretation of an: EKG (Normal sinus rhythm with a rate of 93 beats minute. The patient does have an incomplete right bundle-branch block that was previously noted on March 15th of this year.) Radiology Impression Discussion of test interpretation with radiology: I have reviewed the radiologist's reading. Radiologist Impression: CT/CT angio chest PE protocol IMPRESSION: 1. No acute pulmonary embolus to the subsegmental level. 2. Severe emphysema and chronic bronchitis. 3. Resolution of the previously seen suspicious 3.1 cm right lower lobe mass, which was likely infectious in etiology. Discharge Plan Discharge Clinical Impression: Chest pain Patient Disposition: Home, Self-Care Instructions: Chest Pain (ED) Additional Instructions: Your workup in the ER today was reassuring. This includes your blood work, your CT scan, her EKG. Your CT scan showed no evidence of blood clots in your lungs Follow-up with your primary doctor, return for new or worsening symptoms Prescriptions: No Action Spiriva Respimat 2.5 mcg/actuation mist 2 puff INHALATION DAILY 30 Days Qty: 4 6RF budesonide-formoterol [Symbicort] 160-4.5 mcg/actuation HFA aerosol inhaler 2 puff INHALATION BID 30 Days Qty: 10.2 6RF clonazepam [Klonopin] 0.5 mg tablet 0.5 mg PO BID PRN (Reason: anxiety) mirtazapine 45 mg tablet 45 mg PO BEDTIME 30 Days Qty: 30 0RF quetiapine 50 mg Tablet 50 mg PO BID@0900,1800 30 Days Qty: 60 0RF risperidone 4 mg tablet 4 mg PO BEDTIME 30 Days Qty: 30 0RF hydroxyzine HCl 50 mg tablet 50 mg PO BID PRN (Reason: anxiety) 30 Days Qty: 60 0RF omeprazole 20 mg Capsule,Delayed Release(Dr/Ec) 20 mg PO DAILY@0630 30 Days Qty: 30 0RF topiramate 50 mg tablet 50 mg PO BEDTIME 30 Days Qty: 30 0RF quetiapine 400 mg tablet 400 mg PO BEDTIME 30 Days Qty: 30 0RF venlafaxine 150 mg tablet extended release 24hr 150 mg PO DAILY 30 Days Qty: 30 0RF buprenorphine-naloxone [Suboxone] 8-2 mg film 1 film sublingual DAILY 7 Days Qty: 7 0RF nicotine 21 mg/24 hr Patch 24 Hour 21 mg transdermal DAILY 30 Days Qty: 28 0RF cyclobenzaprine 10 mg Tablet 10 mg PO TID PRN (Reason: back pain) 30 Days Qty: 60 0RF atorvastatin 40 mg Tablet 40 mg PO BEDTIME 30 Days Qty: 30 0RF tamsulosin 0.4 mg Capsule 0.8 mg PO DAILY 30 Days Qty: 60 0RF ferrous sulfate [FeroSul] 325 mg (65 mg iron) tablet 325 mg PO BEDTIME 30 Days Qty: 30 0RF zolpidem 5 mg Tablet 5 mg PO BEDTIME PRN (Reason: insomnia) 15 Days Qty: 15 1RF albuterol sulfate [Ventolin HFA] 90 mcg/actuation HFA aerosol inhaler 2 puff INHALATION Q4-6H PRN (Reason: Wheezing) 30 Days Qty: 6.7 0RF venlafaxine 150 mg capsule,extended release 24hr 150 mg PO DAILY ferrous sulfate 325 mg (65 mg iron) tablet,delayed release (DR/EC) 325 mg PO DAILY Print Language: Grenadian
[2024-03-24] MEDS: traMADoL HCL 50 MG TABLET PO (17:48)
[2024-03-24 17:54] LABS: Bacteria Urine None Seen (None Seen); Hyaline Casts Urine 0-2 /LPF (0-2); Squamous Epithelial Cell Urine 0-2 /HPF (0-2); WBC Urine 0-5 /HPF (0-5)
[2024-03-24 17:57] LABS: RBC Urine 0-2 /HPF (0-2)
[2024-03-24 17:58] LABS: Amphetamine Screen Urine Not Detected (Not Detect); Barbiturates, Urine Not Detected (Not Detect); Benzodiazepines Screen Urine Not Detected (Not Detect); Buprenorphine Scr Positive (Not Detect); Cannabinoid Screen Urine POSITIVE (Not Detect); Cocaine Screen Urine POSITIVE (Not Detect); Fentanyl, urine Not Detected (Not Detect); Methadone Screen, Urine Not Detected (Not Detect); Opiate Screen Urine Not Detected (Not Detect); Oxycodone Screen Urine Not Detected (Not Detect); Phencyclidine Screen Urine Not Detected (Not Detect)
[2024-03-24 18:53] LABS: D Dimer High Sensitivity 276 NG/ML
[2024-03-24] MEDS: iohexoL 350 MG/ML 100 ML INFUS..BTL 65 ML IV (20:17)
== END 2024-03-24 22:10 | disposition home or self-care (01) ==
PROVIDERS: Physician Assistant; Emergency Provider Emergency Medicine
DX: R06.02 Shortness of breath (principal); R07.89 Other chest pain; R50.9 Fever, unspecified; R05.9 Cough, unspecified; F14.10 Cocaine abuse, uncomplicated; Z79.899 Other long term (current) drug therapy; Z87.891 Personal history of nicotine dependence
CPT/HCPCS: 36415; 71046; 71275; 80053; 80307; 81001; 83735; 84484; 85025; 85379; 93005; 99285; Q9967

== ENCOUNTER 2024-04-03 11:27 | Emergency (ER) | payer MEDICAID, SELFPAY ==
--- NOTE | ~2024-04-03 | CT_ITS ---
EXAMINATION: CT ANGIOGRAM OF THE CHEST WITH AND WITHOUT CONTRAST (CT PULMONARY ANGIOGRAM FOR PE) CLINICAL INFORMATION: ? PE COMPARISON: CT angiogram chest 03/24/2024 TECHNIQUE: Prior to contrast administration, noncontrast localization images were obtained. Subsequently, multidetector volumetric imaging was performed from the thoracic inlet to the pubic symphysis through the chest, abdomen, and pelvis following the administration of 65 mL Omnipaque 350 intravenous contrast. No contrast reaction reported Sagittal, coronal, and MIP oblique sagittal (through the chest only) reformatted images were obtained on the CT workstation, uploaded to PACS, and reviewed. This CT examination was performed using dose optimization techniques as appropriate, variously including the following: *Automated exposure control *Adjustment of mA and/or kV according to patient size (this includes techniques or standardized protocols for targeted exams where dose is matched to indication/reason for exam; i.e. extremities or head) *Use of iterative reconstruction technique Total exam dose-length product: 210 mGy-cm FINDINGS: QUALITY OF STUDY/CONTRAST BOLUS: Satisfactory. PULMONARY ARTERIES: There is a single small segmental right upper lobe pulmonary embolus seen (6:138). No other emboli are seen. CORONARY ARTERY CALCIUM: Present THORACIC AORTA: No aneurysm or dissection. LUNG: Marked emphysematous changes are present. Diffuse bronchial thickening is seen. There is a masslike area of probable consolidation seen in the right middle lobe measuring 2.1 x 1.6 cm (6:287), now more confluent than seen previously. Right basilar atelectasis is present along with some improving airspace disease at the right lung base. PLEURA: There is a trace right pleural effusion. No pneumothorax. MEDIASTINUM: Normal heart size. No pericardial effusion. No hilar or mediastinal lymphadenopathy. No evidence of septal bowing or right heart strain. CHEST WALL/AXILLA: No axillary or internal mammary lymphadenopathy. OSSEOUS STRUCTURES: No acute or suspicious osseous abnormality. VISUALIZED ABDOMEN: No significant findings in the upper abdomen. A benign right upper pole Bosniak class I renal cyst is noted which requires no additional imaging or follow up. No solid renal masses are seen. CT/CT angio chest PE protocol IMPRESSION: 1. Small segmental right upper lobe pulmonary embolus. 2. Masslike area of consolidation right middle lobe. Follow-up is recommended after treatment. 3. Marked emphysema. VTE: positive. Fleischner guidelines were followed. Electronically signed by: Regino Pitt MD 04/03/2024 10:21 PM EDT RP
--- NOTE | ~2024-04-03 | XR_ITS ---
EXAMINATION: XR CHEST CLINICAL INFORMATION: Left upper quadrant pain COMPARISON: CT angiogram chest 03/24/2024 . Chest radiograph 03/24/2024. TECHNIQUE: 2 views of the chest were obtained. FINDINGS: Lungs are hyperinflated. No focal consolidation. Chronic reticular markings. No pleural effusions or pneumothorax. The cardiomediastinal silhouette is within normal limits. No acute osseous abnormality. Remote deformity of the right clavicle. XR/XR chest 2V IMPRESSION: Emphysematous changes. No focal consolidation. Electronically signed by: Khalif Kumar MD 04/03/2024 01:59 PM EDT
--- NOTE | ~2024-04-03 | CT_ITS ---
CT ANGIOGRAM NECK WITH CONTRAST CT ANGIOGRAM BRAIN WITH CONTRAST CLINICAL INFORMATION: Headache and dizziness. COMPARISON: Head CT September 29, 2023. Brain MRI December 21, 2023. TECHNIQUE: Test bolus sequences followed by intravenous administration 70 mL of Omnipaque 350. Helical imaging was performed in the axial plane from the thoracic inlet to the skull vertex. Delayed postcontrast imaging of the head was also performed. The data was processed at the staff technologist workstation for generation of MIP sequences. Angled MIPs and volume rendered reformatted images were also generated at an offline 3D workstation under concurrent supervision. Stenoses are assessed in accordance with NASCET criteria unless otherwise indicated. This CT examination was performed using dose optimization techniques as appropriate, variously including the following: *Automated exposure control *Adjustment of mA and/or kV according to patient size (this includes techniques or standardized protocols for targeted exams where dose is matched to indication/reason for exam; i.e. extremities or head) *Use of iterative reconstruction technique FINDINGS: BRAIN: [There is no intracranial hemorrhage, hydrocephalus, extra-axial surface collection, midline shift, or other herniation pattern. Hood to white matter differentiation is diffusely maintained without evidence of an evolved acute territorial infarct. The basilar cisterns are preserved. No significant soft tissue abnormality. No acute osseous abnormality. The paranasal sinuses and the mastoid air cells are well aerated.] CERVICAL SOFT TISSUES AND LUNG APICES: There is centrilobular emphysema throughout the imaged lungs. No significant soft tissue findings within the neck. There is multilevel cervical spondylosis. Chronic traumatic deformity of the right clavicle.Possible pulmonary emboli within right upper lobe segmental and subsegmental pulmonary arterial branches that would be better assessed with a CTA of the chest. NECK CTA: [There is a classic 3 vessel configuration of the aortic arch. Proximal arch vessels are non-stenotic. The vertebral arteries are codominant. No significant ostial stenosis is visualized on either side. Both vertebral arteries are widely patent throughout their extracranial cervical course. Both common and internal carotid arteries are normal in course and caliber.] BRAIN CTA: [There is normal opacification of major intracranial arteries. No focal flow-limiting stenosis nor discrete proximal large artery occlusion. -type [employer] on the left. A 1.5 mm infundibulum versus aneurysm projects posteriorly from the communicating segment of the right internal carotid artery. Timing of the contrast bolus allows assessment of the major dural venous sinuses, which all opacify normally] CT/CT angio head neck IMPRESSION: * Possible pulmonary emboli within right upper lobe segmental and subsegmental pulmonary arterial branches that would be better assessed with a CTA of the chest. * No acute intracranial findings. No acute territorial infarcts and no intracranial hemorrhage. * No acute arterial occlusions and no significant arterial stenoses within the head or neck. * A 1.5 mm infundibulum versus aneurysm projects posteriorly from the communicating segment of the right internal carotid artery. * There is multilevel cervical spondylosis. Findings discussed with Jhoana Hearn MD at 4:54 PM on April 03, 2024. Electronically signed by: Ed Larry MD 04/03/2024 04:59 PM EDT
[2024-04-03 11:41] VITALS: BP 119/76; BP 126/74; PULSE 74; PULSE 89; RESP 18; TEMP 36.7; O2SAT 94; BMI 22.2
--- NOTE | 2024-04-03 12:05 | ED.GENADULT ---
HPI - General Adult General Chief complaint: Abdominal Pain Stated complaint: LOW BP FROM CLINIC PER EMS Time Seen by Provider: 04/03/24 11:47 History of Present Illness ED Provider: Dhiraj HPI narrative: 58 y/o M patient; PMH alcohol use disorder, COPD, JERRY, cocaine use disorder, nicotine dependence; presents via EMS with multiple concerns. He states two days ago he had a fall from standing. He did not lose consciousness or hit his head. Last night he developed a severe headache associated with photophobia. It has not improved despite the use of tylenol at home. He reports associated nausea and diarrhea. Denies vomiting. He also reports left-sided chest pain. Incidentally he notes a bug bite to his left-sided neck. He denies fever or chills, SOB, cough/congestion. No known sick contacts. Related Data Home Medications ?Medication ?Instructions ?Recorded ?Confirmed clonazepam 0.5 mg tablet (Klonopin) 0.5 mg PO BID PRN anxiety 12/15/23 02/05/24 ferrous sulfate 325 mg (65 mg 325 mg PO DAILY 01/25/24 02/05/24 iron) tablet,delayed release venlafaxine 150 mg 150 mg PO DAILY 01/25/24 02/05/24 capsule,extended release 24 hr Previous Rx's ?Medication ?Instructions ?Recorded albuterol sulfate 90 mcg/actuation 2 puff inhalation Q4-6H PRN 06/30/23 aerosol inhaler (Ventolin HFA) Wheezing 30 days #6.7 grams atorvastatin 40 mg tablet 40 mg PO BEDTIME 30 days #30 tabs 06/30/23 cyclobenzaprine 10 mg tablet 10 mg PO TID PRN back pain 30 days 06/30/23 #60 tabs ferrous sulfate 325 mg (65 mg 325 mg PO BEDTIME 30 days #30 tabs 06/30/23 iron) tablet (FeroSul) tamsulosin 0.4 mg capsule 0.8 mg (2 x 0.4 mg) PO DAILY 30 06/30/23 days #60 caps zolpidem 5 mg tablet 5 mg PO BEDTIME PRN insomnia 15 06/30/23 days #15 tabs buprenorphine 8 mg-naloxone 2 mg 1 film sublingual DAILY 7 days #7 12/28/23 sublingual film (Suboxone) ea hydroxyzine HCl 50 mg tablet 50 mg PO BID PRN anxiety 30 days 12/28/23 #60 tabs mirtazapine 45 mg tablet 45 mg PO BEDTIME 30 days #30 tabs 12/28/23 nicotine 21 mg/24 hr daily 21 mg transdermal DAILY 30 days 12/28/23 transdermal patch #28 ea omeprazole 20 mg capsule,delayed 20 mg PO DAILY@0630 30 days #30 12/28/23 release caps quetiapine 400 mg tablet 400 mg PO BEDTIME 30 days #30 tabs 12/28/23 quetiapine 50 mg tablet 50 mg PO BID@0900,1800 30 days #60 12/28/23 tabs risperidone 4 mg tablet 4 mg PO BEDTIME 30 days #30 tabs 12/28/23 topiramate 50 mg tablet 50 mg PO BEDTIME 30 days #30 tabs 12/28/23 venlafaxine 150 mg tablet,extended 150 mg PO DAILY 30 days #30 tabs 12/28/23 release 24 hr budesonide-formoterol HFA 160 2 puff inhalation BID 30 days 02/05/24 mcg-4.5 mcg/actuation aerosol #10.2 grams inhaler (Symbicort) tiotropium bromide 2.5 2 puff inhalation DAILY 30 days #4 02/05/24 mcg/actuation mist for inhalation grams (Spiriva Respimat) Allergies Allergy/AdvReac Type Severity Reaction Status Date / Time ibuprofen Allergy Intermediate Stomach Verified 04/03/24 11:46 Upset penicillin V Allergy Intermediate rash Verified 04/03/24 11:46 Review of Systems Review of Systems: Yes all other systems are reviewed and are negative Neurologic: Denies Abnormal speech present and Denies Sensory deficit (Neuro) [facility] Past Medical History Attestation statement: The following information was validated with the patient. Source: old records reviewed Medical History Routine medical exam Lung mass Suicidal ideation Polysubstance abuse Chronic back pain BPH (benign prostatic hyperplasia) Nicotine dependence Cannabis use disorder, moderate, dependence Cocaine use disorder Pulmonary nodules Emphysema of lung Anxiety Depression Asthma Surgical History Hx of cholecystectomy Social History Social History Household Members: None Housing: Apartment Do you presently have visiting nurse or other home services: No Unable to assess alcohol history related to: Unknown Alcohol intake: current Alcohol intake frequency: former alcohol drinker Alcohol type: beer Patient Tobacco Use Status: Former Tobacco user Tobacco use type: Cigarette Cigarette Packs Per Day: 0.5 Cigarettes Per Day: 10.0 Years Smoked: many years e-Cigarette/Vaping Use: Never Used Second Hand Smoke Exposure: No Substance Use Type: Crack/Cocaine Advance Directives: Yes Advance Directives on File: Yes Advance Directives Date on File: 01/18/23 Do you have a plan to hurt others: No Plan service: No Current occupational status: unemployed Current occupation: right hand dominant Sexual orientation: Straight/Heterosexual Physical Exam ED Vital Signs: Vital Signs - 24 hr 04/03/24 11:41 04/03/24 17:02 04/03/24 18:58 Temperature 98.1 F 98.1 F 97.6 F Pulse Rate 89 89 93 Respiratory Rate 18 18 16 Blood Pressure 119/76 119/76 133/80 Pulse Oximetry 94 94 94 Oxygen Delivery Method Room Air Room Air Room Air BMI result Body Mass Index 22.2 Patient is afebrile and hemodynamically stable Const General: cooperative Orientation/consciousness: patient oriented x3 HENMT Head: Yes normal to inspection and Yes atraumatic Eyes General: appearance normal, both eyes and all related structures Pupils: Equal, round and reactive pupils present EOM: EOMs intact bilaterally Neck Other: Small left sided neck lump without surrounding erythema/fluctuance/induration Neck: Yes normal visual inspection, Yes full ROM, Yes supple and No tender Chest Chest palpation & inspection: normal inspection of the chest and normal palpation of entire chest wall Resp Effort & Inspection: normal respiratory effort, able to speak in complete sentences, no cough and no respiratory distress Auscultation: clear to auscultation bilaterally Cardio Rate: regular rate Rhythm: regular rhythm Peripheral pulses: Peripheral pulses 2+ throughout GI Inspection: Yes normal to inspection, No Abdominal wall edema and No distended Palpation (GI): Soft to palpation, not firm, nontender, no guarding and not rigid Auscultation: normal bowel sounds Back/Spine/Pelvis Back: No back tenderness Neuro General: patient oriented x3 Cranial nerves: Yes Equal, round and reactive pupils present Cognition (Neuro): normal cognition Speech: No Abnormal speech present Gait exam (Neuro): Normal gait present Motor exam (neuro): 5/5 motor strength present throughout Sensory Exam: No Sensory deficit (Neuro) Coordination: [id number] test normal and [id number] test normal Course Course Course Narrative: Patient is afebrile and hemodynamically stable. Ordered EKG, CXR, and labs. Ordered CTA Head. I did initially order a d-dimer due to the association between cocaine use and pulmonary emboli/pulmonary infarcts. However on deep chart review patient had a CTA Chest performed on 03/24/2024 which was unremarkable. MARTINES management with IVF, reglan, tylenol. Labs reviewed and unremarkable. Initial troponin negative. XR unremarkable. CT ELVO unremarkable for head or neck pathology. However called by radiology who report concern for RUL pulmonary emboli. They did review patient's CTA Chest from 03/24/2024 but states he had significant motion artificat at that time. Recommend re-injection to evaluate for PE. Plan: Transition pending CTA results Anticipate that patient will be appropriate for discharge to home following CTA results Condition: Stable Medications Administered Discontinued Medications Generic Name Dose Route Start Last Admin Trade Name Freq PRN Reason Stop Dose Admin Sodium Chloride 1,000 mls @ 999 mls/hr 04/03/24 12:30 04/03/24 14:09 Ns IV 04/03/24 13:30 Infused .Q1H1M ADRIEN Infusion Acetaminophen 1,000 mg in 100 mls @ 400 mls/hr 04/03/24 12:29 04/03/24 13:38 Ofirmev IV 04/03/24 12:43 Infused ONCE ONE Infusion Iohexol 70 ml 04/03/24 16:01 04/03/24 16:02 Iohexol 350 Mg/Ml 100 Ml Infus..Btl IV 04/03/24 16:02 70 ml ONCE ONE Administration Iohexol 100 ml 04/03/24 18:57 04/03/24 18:57 Iohexol 350 Mg/Ml 100 Ml Infus..Btl IV 04/03/24 18:58 65 ml ONCE ONE Administration Metoclopramide HCl 10 mg 04/03/24 12:29 04/03/24 12:54 Metoclopramide Hcl 10 Mg/2 Ml Vial IVPUSH 04/03/24 12:30 10 mg ONCE ONE Administration Medical Decision Making Lab Data 04/03/24 12:46 04/03/24 12:46 Labs: Lab Results 04/03/24 Range/Units 12:46 WBC 6.6 (4.8-10.8) X10*3/uL RBC 3.74 L (4.60-5.80) X10*6/uL Hgb 11.3 L (14.0-18.0) g/dl Hct 33.8 L (42.0-52.0) % MCV 90.4 (80.0-98.0) fL MCH 30.2 (27.0-33.0) pg MCHC 33.4 (31.0-36.0) g/dl RDW 13.3 (11.0-16.0) % Plt Count 430 H D (160-400) X10*3/uL MPV 8.2 L (9.4-12.4) fL Immature Gran % (Auto) 0.2 (0.0-0.4) % Neut % (Auto) 55.2 (45-73) % Lymph % (Auto) 32.8 (20-40) % Dickenson % (Auto) 7.2 (2-11) % Eos % (Auto) 4.1 H (0-4) % Baso % (Auto) 0.5 (0-2) % Lymph # (Auto) 2.2 (1.2-4.9) X10*3/uL Dickenson # (Auto) 0.5 (0.1-1.2) X10*3/uL Eos # (Auto) 0.3 (0.0-0.4) X10*3/uL Baso # (Auto) 0.0 (0.0-0.2) X10*3/uL Abs Immat Gran (auto) 0.01 (0.00-0.03) X10*3/uL Absolute Neuts (auto) 3.6 (2.0-8.3) x10*3/uL Absolute Nucleated RBC 0.000 (0.0-0.012) X10*3/uL Nucleated RBC % (auto) 0.0 (0.0-0.2) /100WBC Sodium 139 (135-145) mmol/L Potassium 3.8 (3.3-5.1) mmol/L Chloride 103 (96-108) mmol/L Carbon Dioxide 30 H (22-29) mmol/L Anion Gap 10 L (12-20) BUN 9 (9-16) mg/dL Creatinine 0.78 (0.5-1.4) mg/dL Estim Creat Clear Calc 83.7 Estimated GFR > 60 Random Glucose 90 (60-115) mg/dL Calcium 8.9 (8.4-10.2) mg/dL Total Bilirubin 0.2 (0.0-1.0) mg/dL Direct Bilirubin < 0.2 (0.0-0.5) mg/dL AST 16 (5-37) U/L ALT 12 (0-40) U/L Alkaline Phosphatase 70 (39-117) U/L Troponin I High Sens < 2.7 (<3.5-35.0) ng/L Total Protein 6.3 L (6.5-8.0) g/dL Albumin 3.3 L (3.5-5.0) g/dL Lipase 8 (8-78) U/L Influenza Type A (PCR) NEGATIVE (Negative) Influenza Type B (PCR) NEGATIVE (Negative) RSV RNA Qual (PCR) NEGATIVE (Negative) SARS-CoV-2 RNA (RT-PCR) NEGATIVE (Negative) Independent Interpretation I performed an independent interpretation of an: EKG Interpretation: NSR 85BPM without ischemic changes, normal intervals Radiology Impression Discussion of test interpretation with radiology: I have reviewed the radiologist's reading. Radiologist Impression: EXAMINATION: XR CHEST CLINICAL INFORMATION: Left upper quadrant pain COMPARISON: CT angiogram chest 03/24/2024 . Chest radiograph 03/24/2024. TECHNIQUE: 2 views of the chest were obtained. FINDINGS: Lungs are hyperinflated. No focal consolidation. Chronic reticular markings. No pleural effusions or pneumothorax. The cardiomediastinal silhouette is within normal limits. No acute osseous abnormality. Remote deformity of the right clavicle. XR/XR chest 2V IMPRESSION: Emphysematous changes. No focal consolidation. Electronically signed by: Khalif Kumar MD 04/03/2024 01:59 PM EDT Discharge Plan Discharge Clinical Impression: Headache Patient Disposition: Still a Patient Prescriptions: No Action Spiriva Respimat 2.5 mcg/actuation mist 2 puff INHALATION DAILY 30 Days Qty: 4 6RF budesonide-formoterol [Symbicort] 160-4.5 mcg/actuation HFA aerosol inhaler 2 puff INHALATION BID 30 Days Qty: 10.2 6RF clonazepam [Klonopin] 0.5 mg tablet 0.5 mg PO BID PRN (Reason: anxiety) mirtazapine 45 mg tablet 45 mg PO BEDTIME 30 Days Qty: 30 0RF quetiapine 50 mg Tablet 50 mg PO BID@0900,1800 30 Days Qty: 60 0RF risperidone 4 mg tablet 4 mg PO BEDTIME 30 Days Qty: 30 0RF hydroxyzine HCl 50 mg tablet 50 mg PO BID PRN (Reason: anxiety) 30 Days Qty: 60 0RF omeprazole 20 mg Capsule,Delayed Release(Dr/Ec) 20 mg PO DAILY@0630 30 Days Qty: 30 0RF topiramate 50 mg tablet 50 mg PO BEDTIME 30 Days Qty: 30 0RF quetiapine 400 mg tablet 400 mg PO BEDTIME 30 Days Qty: 30 0RF venlafaxine 150 mg tablet extended release 24hr 150 mg PO DAILY 30 Days Qty: 30 0RF buprenorphine-naloxone [Suboxone] 8-2 mg film 1 film sublingual DAILY 7 Days Qty: 7 0RF nicotine 21 mg/24 hr Patch 24 Hour 21 mg transdermal DAILY 30 Days Qty: 28 0RF cyclobenzaprine 10 mg Tablet 10 mg PO TID PRN (Reason: back pain) 30 Days Qty: 60 0RF atorvastatin 40 mg Tablet 40 mg PO BEDTIME 30 Days Qty: 30 0RF tamsulosin 0.4 mg Capsule 0.8 mg PO DAILY 30 Days Qty: 60 0RF ferrous sulfate [FeroSul] 325 mg (65 mg iron) tablet 325 mg PO BEDTIME 30 Days Qty: 30 0RF zolpidem 5 mg Tablet 5 mg PO BEDTIME PRN (Reason: insomnia) 15 Days Qty: 15 1RF albuterol sulfate [Ventolin HFA] 90 mcg/actuation HFA aerosol inhaler 2 puff INHALATION Q4-6H PRN (Reason: Wheezing) 30 Days Qty: 6.7 0RF venlafaxine 150 mg capsule,extended release 24hr 150 mg PO DAILY ferrous sulfate 325 mg (65 mg iron) tablet,delayed release (DR/EC) 325 mg PO DAILY Interventions: ED Discharge Assessment Last Done: 04/03/24 17:02 Print Language: Anguillan
--- NOTE | 2024-04-03 12:12 | ECG_ITS ---
Test Reason : HEART SCREEN Blood Pressure : / mmHG Vent. Rate : 085 BPM Atrial Rate : 085 BPM P-R Int : 166 ms QRS Dur : 096 ms QT Int : 374 ms P-R-T Axes : 072 -06 064 degrees QTc Int : 445 ms Normal sinus rhythm Normal ECG When compared with ECG of 24-MAR-2024 13:35, No significant change was found Referred By: Jhoana Hearn Electronically Signed By:HERSON GARZON
[2024-04-03] MEDS: Acetaminophen 1,000 MG/100 ML PIGGYBACK 400 MG IV (12:54)
[2024-04-03] MEDS: 0.9 % Sodium Chloride 1,000 ML 999 ML IV (12:54)
[2024-04-03] MEDS: Metoclopramide HCl 10 MG/2 ML VIAL IVPUSH (12:54)
[2024-04-03 13:00] LABS: MANUAL DIFF FLAG NO
[2024-04-03 13:01] LABS: Basophils Percent Auto 0.5 % (0-2); Eosinophils Absolute Auto 0.3 X10*3/uL (0.0-0.4); Eosinophils Percent Auto 4.1 % (0-4); Hematocrit 33.8 % (42.0-52.0); Hemoglobin 11.3 g/dl (14.0-18.0); Imm Gran Abs Auto 0.01 X10*3/uL (0.00-0.03); Imm Gran Pct Auto 0.2 % (0.0-0.4); Lymphocytes Absolute Auto 2.2 X10*3/uL (1.2-4.9); Lymphocytes Percent Auto 32.8 % (20-40); Mean Corpuscular HGB Conc 33.4 g/dl (31.0-36.0); Mean Corpuscular Hemoglobin 30.2 pg (27.0-33.0); Mean Corpuscular Volume 90.4 fL (80.0-98.0); Mean Platelet Volume 8.2 fL (9.4-12.4); Monocytes Absolute Auto 0.5 X10*3/uL (0.1-1.2); Monocytes Percent Auto 7.2 % (2-11); Neutrophils Absolute Auto 3.6 x10*3/uL (2.0-8.3); Neutrophils Percent Auto 55.2 % (45-73); Platelet Count 430 X10*3/uL (160-400); Red Blood Count 3.74 X10*6/uL (4.60-5.80); Red Cell Distribution Width 13.3 % (11.0-16.0); White Blood Count 6.6 X10*3/uL (4.8-10.8)
[2024-04-03 13:21] LABS: Alanine Aminotransferase 12 U/L (0-40); Albumin Level 3.3 g/dL (3.5-5.0); Alkaline Phosphatase 70 U/L (39-117); Anion Gap 10 (12-20); Aspartate Amino Transferase 16 U/L (5-37); Bilirubin Direct < 0.2 mg/dL (0.0-0.5); Bilirubin Total 0.2 mg/dL (0.0-1.0); Blood Urea Nitrogen 9 mg/dL (9-16); Calcium 8.9 mg/dL (8.4-10.2); Carbon Dioxide 30 mmol/L (22-29); Chloride 103 mmol/L (96-108); Creatinine Clr Calc Pharmacy 83.7; Estimated Glomerular Filt Rate > 60; Glucose Random 90 mg/dL (60-115); Lipase 8 U/L (8-78); Potassium 3.8 mmol/L (3.3-5.1); Sodium 139 mmol/L (135-145); Total Protein 6.3 g/dL (6.5-8.0)
[2024-04-03 13:38] LABS: Troponin-I High Sensitivity < 2.7 ng/L (<3.5-35.0)
[2024-04-03 13:40] LABS: Influenza A PCR NEGATIVE (Negative); Influenza B PCR NEGATIVE (Negative); Resp Syncy Virus RNA Qual PCR NEGATIVE (Negative); SARS COV2 PCR INHOUSE NEGATIVE (Negative)
[2024-04-03] MEDS: iohexoL 350 MG/ML 100 ML INFUS..BTL 70 ML IV (16:02)
[2024-04-03 17:02] VITALS: BP 119/76; PULSE 89; RESP 18; TEMP 36.7; O2SAT 94
[2024-04-03] MEDS: iohexoL 350 MG/ML 100 ML INFUS..BTL IV (18:57)
[2024-04-03 18:58] VITALS: BP 133/80; PULSE 93; RESP 16; TEMP 36.4; O2SAT 94
--- NOTE | 2024-04-03 22:03 | PC.NURSE ---
Pt A&Ox3, reports feeling better, requesting IV line to be taken out. Pt reported to Krystle RN that he wanted to leave without CT results, provider not made aware and Pt LWCT. 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
== END 2024-04-03 22:13 | disposition left against medical advice (07) ==
PROVIDERS: Emergency Provider Emergency Medicine; PCP Internal Medicine
DX: R51.9 Headache, unspecified (principal); J44.9 Chronic obstructive pulmonary disease, unspecified; F14.90 Cocaine use, unspecified, uncomplicated; R07.89 Other chest pain; F17.210 Nicotine dependence, cigarettes, uncomplicated; R11.0 Nausea; Z79.899 Other long term (current) drug therapy; Z03.818 Encounter for observation for suspected exposure to other biological agents ruled out
CPT/HCPCS: 0241U; 36415; 70496; 70498; 71046; 71275; 80048; 80076; 83690; 84484; 85025; 93005; 96361; 96365; 96375; 99284; J0131; J2765; Q9967

== ENCOUNTER 2024-04-16 13:08 | Outpatient (AMB) | payer MEDICAID, SELFPAY ==
[2024-04-16 13:17] VITALS: BP 138/74; PULSE 78; O2SAT 98; BMI 21.4
--- NOTE | 2024-04-16 13:17 | MHC.OFFVIS ---
Vital Signs 04/16/24 13:17 Height 5 ft 4 in Weight 124 lb 8.979 oz BMI 21.4 BP 138/74 Blood Pressure Location Rt brachial Position Sitting Pulse 78 Pulse Source Doppler Pulse Oximetry (%) 98 Oxygen Delivery Method Room Air Intake Visit Reasons: 2 wk ED follow up Awning Installer Required: Yes Awning Installer Name: Sheila Xavier Tanika Allergies ibuprofen Allergy (Intermediate, Verified 04/16/24 13:21) Stomach Upset penicillin V Allergy (Intermediate, Verified 04/16/24 13:21) rash HPI HPI 2 wk ED follow up: Details: 58-year-old gentleman, recent 30+ pack-year smoker, followed for underlying moderate COPD, pulmonary nodules, and unrestful sleep/snoring. After the last office visit patient has been evaluated in the emergency room for separate issue and also was noted to have segmental pulmonary embolus. He continues on Symbicort , Spiriva, and albuterol MDI with good control of his underlying COPD. [facility] Medical History Routine medical exam Lung mass Suicidal ideation Polysubstance abuse Chronic back pain BPH (benign prostatic hyperplasia) Nicotine dependence Cannabis use disorder, moderate, dependence Cocaine use disorder Pulmonary nodules Emphysema of lung Anxiety Depression Asthma Surgical History Hx of cholecystectomy Social History Household Members: None Housing: Apartment Do you presently have visiting nurse or other home services: No Unable to assess alcohol history related to: Unknown Alcohol intake: current Alcohol intake frequency: former alcohol drinker Alcohol type: beer Patient Tobacco Use Status: Former Tobacco user Tobacco use type: Cigarette Cigarette Packs Per Day: 0.5 Cigarettes Per Day: 10.0 Years Smoked: many years e-Cigarette/Vaping Use: Never Used Second Hand Smoke Exposure: No Substance Use Type: Crack/Cocaine Advance Directives Date on File: 01/18/23 service: No Current occupational status: unemployed Current occupation: right hand dominant Sexual orientation: Straight/Heterosexual Review of Systems Const Denies daytime sleepiness, Denies excessive sweating, Denies fatigue, Denies fever(s), Denies lethargy, Denies malaise, Denies night sweats, Denies snoring and Denies weight loss Eyes Denies blurry vision and Denies itchy eyes ENT Denies nasal congestion, Denies post nasal drip, Denies sinus pain, Denies sinus pressure and Denies other ( Thrush) Card Denies chest pain, Denies pedal edema, Denies dyspnea, Denies orthopnea and Denies paroxysmal nocturnal dyspnea Resp Denies cough, Denies hemoptysis, Denies excessive phlegm production, Denies dyspnea, Denies snoring and Denies wheezing GI Denies abdominal pain and Denies heartburn Musc Denies myalgias, Denies arthralgias and Denies joint swelling Skin/Breast Denies rash Neuro Denies memory loss and Denies seizure-like activity Psych Denies abnormal sleep pattern, Denies anxiety and Denies memory loss Endo Denies excessive sweating, Denies fatigue and Denies heat intolerance Alexei/Lymph Denies easy bruising Aller/Immun Denies itchy eyes, Denies seasonal rhinorrhea and Denies wheezing Physical Exam Vital Signs: Last Vital Signs Pulse 78 04/16/24 13:17 BP 138/74 04/16/24 13:17 Pulse Ox 98 04/16/24 13:17 Oxygen Delivery Method Room Air 04/16/24 13:17 BMI result Body Mass Index 21.4 Const General: no acute distress and alert Nutritional Appearance: not obese Orientation/consciousness: Other orientation findings ( oriented) HEENT Head: Yes atraumatic Eyes General: appearance normal, both eyes and all related structures Sclerae: sclerae normal EOM: EOMs intact bilaterally Neck Neck: Yes supple Lymphatic: no lymphadenopathy noted Resp Effort & Inspection: normal respiratory effort and no use of accessory muscles Auscultation: clear to auscultation bilaterally Cardio Rate: regular rate Rhythm: regular rhythm Heart sounds: no gallops, no murmurs and no rubs Skin General skin exam: other ( warm) Extrem General: No clubbing, No cyanosis and No edema Assessment & Plan Assessment & Plan (1) COPD (chronic obstructive pulmonary disease): Code(s): J44.9 - Chronic obstructive pulmonary disease, unspecified Category: Medical Plan: Well controlled. Continue current regimen of Symbicort, Spiriva, and albuterol MDI. (2) Nicotine dependence: Code(s): F17.200 - Nicotine dependence, unspecified, uncomplicated Category: Medical Plan: Continue with screening, next in May of 2024, ordered. (3) Pulmonary embolus: Code(s): I26.99 - Other pulmonary embolism without acute cor pulmonale Category: Medical Plan: Start on apixaban and re-evaluate in 3 months. Medications: New apixaban 5 mg PO BID 60 tabs 2RF Coding Level of Care Code Est Pt Level 4 (99783) Complex EM visit Add On G2211 Diagnoses COPD (chronic obstructive pulmonary disease) J44.9 Nicotine dependence F17.200 Pulmonary embolus I26.99
== END 2024-04-16 13:34 | disposition home or self-care (01) ==
PROVIDERS: PCP Internal Medicine; Referring Provider Internal Medicine; Visit Provider Internal Medicine Pulmonary Disease
DX: J44.9 Chronic obstructive pulmonary disease, unspecified (principal); F17.200 Nicotine dependence, unspecified, uncomplicated; I26.99 Other pulmonary embolism without acute cor pulmonale
CPT/HCPCS: 99214

== ENCOUNTER → 2024-04-16 13:08 | Outpatient (BNVA) | payer MEDICAID, SELFPAY | PROVIDERS: PCP Internal Medicine; Visit Provider Internal Medicine Pulmonary Disease | DX: J44.9 Chronic obstructive pulmonary disease, unspecified (principal); R91.8 Other nonspecific abnormal finding of lung field; R06.83 Snoring; I26.99 Other pulmonary embolism without acute cor pulmonale; Z87.891 Personal history of nicotine dependence; Z79.899 Other long term (current) drug therapy | CPT/HCPCS: 99212 ==

== ENCOUNTER 2024-06-24 12:19 | Emergency (ER) | payer MEDICAID, SELFPAY ==
[2024-06-24] VITALS (9 sets, daily range): BP systolic 108–133; BP diastolic 69–82; PULSE 94–114; RESP 14–22; TEMP 35.8–36.9; O2SAT 94–100; BMI 20.3
--- NOTE | ~2024-06-24 | XR_ITS ---
EXAMINATION: XR CHEST CLINICAL INFORMATION: sob, exp wheezes COMPARISON: cxr on 04/03/24 TECHNIQUE: 2 views of the chest were obtained. FINDINGS: The cardiac silhouette is normal. There is moderate emphysema. There are no areas of consolidation. There are no pleural effusions or pneumothoraces. The bones and soft tissues are unremarkable for the patient's age. XR/XR chest 2V IMPRESSION: Moderate emphysema. Electronically signed by: Arlyn Rivera MD 06/24/2024 02:30 PM JACKELINE PEREZ
--- NOTE | ~2024-06-24 | CT_ITS ---
EXAMINATION: CT ANGIOGRAM OF THE CHEST WITH AND WITHOUT CONTRAST (CT PULMONARY ANGIOGRAM FOR PE) CLINICAL INFORMATION: r/o PE, dyspnea, cough COMPARISON: CTA chest April 03, 2024 TECHNIQUE: Prior to contrast administration, noncontrast localization images were obtained. Subsequently, multidetector volumetric imaging was performed from the thoracic inlet to below the diaphragms following the administration of 65 mL Omnipaque 350 intravenous contrast. No contrast reaction reported. Sagittal, coronal, and MIP oblique sagittal reformatted images were obtained on the CT workstation, uploaded to PACS, and reviewed. Total exam dose-length product 182 mGy-cm FINDINGS: QUALITY OF STUDY/CONTRAST BOLUS: Satisfactory. PULMONARY ARTERIES: No central or segmental pulmonary emboli. THORACIC AORTA: No aneurysm or dissection. LUNG: Mild centrilobular emphysema. PLEURA: No pleural effusion or pneumothorax. MEDIASTINUM: Normal heart size. No pericardial effusion. No hilar or mediastinal lymphadenopathy. Moderate coronary artery calcification in the LAD CHEST WALL/AXILLA: No axillary or internal mammary lymphadenopathy. OSSEOUS STRUCTURES: No acute or suspicious osseous abnormality. UPPER ABDOMEN: Bilateral upper pole nephrolithiasis. CT/CT angio chest PE protocol IMPRESSION: 1. No central or segmental pulmonary emboli. 2. Mild centrilobular emphysema. VTE: negative. Electronically signed by: Srini Pires MD 06/24/2024 08:06 PM JACKELINE
--- NOTE | 2024-06-24 12:41 | ED.SOB ---
HPI - SOB/Dyspnea General Chief Complaint: Dyspnea Stated Complaint: SOB,SOFIA WHEEZE,DUONEB 100% PER EMS Time Seen by Provider: 06/24/24 12:30 Source: patient, EMS and advisory services associate ([place]) Mode of arrival: EMS Limitations: language barrier ([place] speaking) History of Present Illness ED Provider: WILLIAN TAYLOR PA-C HPI Narrative: 59 year old [place] speaking male with pmhx significant for asthma, COPD (emphysema), pulmonary nodules, cocaine use disorder, depression, anxiety, and BPH presents to the ED today for evaluation of shortness of breath x1 week, worsening last night. Admits to chest tightness and pain which began on waking this morning. This did not wake him from his sleep. Reports cough productive of white sputum, worse at night. He has been using his home inhaler and nebulizer without improvement. He is not dependent on oxygen at home. Denies known sick contacts. Denies any fever or chills. Related Data Home Medications ?Medication ?Instructions ?Recorded ?Confirmed clonazepam 0.5 mg tablet (Klonopin) 0.5 mg PO BID anxiety 12/15/23 06/24/24 ferrous sulfate 325 mg (65 mg 325 mg PO DAILY 01/25/24 06/24/24 iron) tablet,delayed release acetaminophen 500 mg tablet 500 mg PO Q6H PRN Pain 06/24/24 06/24/24 baclofen 10 mg tablet 10 mg PO TID 06/24/24 06/24/24 hydroxyzine HCl 50 mg tablet 50 mg PO Q6H PRN y 06/24/24 06/24/24 ipratropium 0.5 mg-albuterol 3 mg ml inhalation TID 06/24/24 (2.5 mg base)/3 mL nebulization soln meloxicam 15 mg tablet 15 mg PO DAILY 06/24/24 06/24/24 mirtazapine 15 mg tablet 15 mg PO BEDTIME 06/24/24 06/24/24 mirtazapine 30 mg tablet 30 mg PO BEDTIME 06/24/24 06/24/24 pantoprazole 40 mg tablet,delayed 40 mg PO DAILY 06/24/24 06/24/24 release quetiapine 100 mg tablet 100 mg PO 1XD 06/24/24 06/24/24 sildenafil 100 mg tablet (Viagra) 100 mg PO DAILY PRN Erectile 06/24/24 06/24/24 Dysfunction trazodone 50 mg tablet 50 mg PO BEDTIME PRN insomnia 06/24/24 06/24/24 venlafaxine 150 mg 150 mg PO DAILY 06/24/24 06/24/24 capsule,extended release 24 hr Previous Rx's ?Medication ?Instructions ?Recorded albuterol sulfate 90 mcg/actuation 2 puff inhalation Q4-6H PRN 06/30/23 aerosol inhaler (Ventolin HFA) Wheezing 30 days #6.7 grams atorvastatin 40 mg tablet 40 mg PO BEDTIME 30 days #30 tabs 06/30/23 tamsulosin 0.4 mg capsule 0.8 mg (2 x 0.4 mg) PO DAILY 30 06/30/23 days #60 caps zolpidem 5 mg tablet 5 mg PO BEDTIME PRN insomnia 15 06/30/23 days #15 tabs buprenorphine 8 mg-naloxone 2 mg 1 film sublingual DAILY 7 days #7 12/28/23 sublingual film (Suboxone) ea quetiapine 400 mg tablet 400 mg PO BEDTIME 30 days #30 tabs 12/28/23 risperidone 4 mg tablet 4 mg PO BEDTIME 30 days #30 tabs 12/28/23 topiramate 50 mg tablet 50 mg PO BEDTIME 30 days #30 tabs 12/28/23 doxycycline hyclate 100 mg capsule 100 mg PO BID 7 days #14 caps 06/24/24 prednisone 20 mg tablet 40 mg (2 x 20 mg) PO DAILY 5 days 06/24/24 #10 tabs Allergies Allergy/AdvReac Type Severity Reaction Status Date / Time ibuprofen Allergy Intermediate Stomach Verified 06/24/24 13:12 Upset penicillin V Allergy Intermediate rash Verified 06/24/24 13:12 Review of Systems Review of Systems: Constitutional: No fever, chills, fatigue, night sweats, weight changes ENT/Mouth: No ear pain, hearing loss, nasal congestion, sinus pain, rhinorrhea, sore throat Eyes: No eye pain, swelling, redness, vision changes, discharge Cardio: No palpitations, RUIZ, orthopnea, peripheral edema, +chest pain Pulm: No wheezing, dyspnea, hemoptysis, +SOB, +dyspnea, +productive cough GI: No nausea, vomiting, hematemesis, abdominal pain, diarrhea, constipation, hematochezia, melena : No irregular bleeding, dysuria, frequency, urgency, hesitancy, hematuria, flank pain, urinary flow changes, urinary incontinence or retention MSK: No back pain, neck pain, joint pain, myalgias Skin: No lesions, rashes Neuro: No weakness, numbness, paresthesias, LOC, dizziness, headache Psych: No anxiety/panic, depression, SI/HI, AH/VH All other systems reviewed and are negative. [facility] Past Medical History Attestation statement: The following information was validated with the patient. Source: old records reviewed and nursing notes reviewed Medical History Routine medical exam Lung mass Suicidal ideation Polysubstance abuse Chronic back pain BPH (benign prostatic hyperplasia) Nicotine dependence Cannabis use disorder, moderate, dependence Cocaine use disorder Pulmonary nodules Emphysema of lung Anxiety Depression Asthma Surgical History Hx of cholecystectomy Social History Social History Household Members: None Housing: Apartment Do you presently have visiting nurse or other home services: No Unable to assess alcohol history related to: Unknown Alcohol intake: current Alcohol intake frequency: former alcohol drinker Alcohol type: beer Patient Tobacco Use Status: Former Tobacco user Tobacco use type: Cigarette Cigarette Packs Per Day: 0.5 Cigarettes Per Day: 10.0 Years Smoked: many years e-Cigarette/Vaping Use: Never Used Second Hand Smoke Exposure: No Substance Use Type: Crack/Cocaine Advance Directives: Yes Advance Directives on File: Yes Advance Directives Date on File: 01/18/23 service: No Current occupational status: unemployed Current occupation: right hand dominant Sexual orientation: Straight/Heterosexual Physical Exam Vital Signs: Vital Signs: Last Vital Signs Temp 98.3 F 06/24/24 21:28 Pulse 109 H 06/24/24 21:28 Resp 21 H 06/24/24 21:28 BP 124/78 06/24/24 21:28 Pulse Ox 95 06/24/24 21:28 O2 Del Method Room Air 06/24/24 21:28 BMI result Body Mass Index 20.3 borderline tachycardic to 99, tachypneic to 22, afebrile General: thin appearing Skin: Warm, dry, intact. No rashes or lesions. Head: Normocephalic, atraumatic. EENT: Hearing is intact b/l. Conjunctiva clear. PERRLA. EOM intact. Moist mucous membranes.? Neck: Supple without LAD Cardiac: Chest wall symmetric. RRR. no JVD. Lungs: no tripoding. no increased effort of breathing. audible expiatory wheezing. lung sounds diminished throughout with expiratory wheeze. no crackles. Abdomen: Soft, non-tender, non-distended. No rebound tenderness or guarding Back: No midline spinous or paraspinal tenderness. No step off deformity. Ext: Upper and lower extremities atraumatic, without tenderness, deformity, swelling or erythema. Full ROM throughout. no calf tenderness. no peripheral edema. Neuro: AOx3. Normal speech. Psych: Appropriate mood and affect. Responds appropriately to questions. Course Course Course Narrative: CBC without leukocytosis or left shift. There is normocytic anemia, chronic when compared to priors. H&H is stable and above transfusion threshold. Chemistry without acute electrolyte abnormality requiring intervention. I did receive a critical results of magnesium of 4.4. We received a call from lab requesting a redraw of the chemistry. The chemistry was drawn while patient's magnesium was running. I have suspicion that this is why magnesium is elevated. On review of his labs, he has never been hypermagnesemic. His EKG is within normal limits. I did discuss this with my attending Dr. Mishra who agrees that this is likely elevated secondary to IV magnesium. Repeat mag is wnl at 2.5. His initial EKG showed normal sinus rhythm with a rate of 90 beats per minute, no acute ischemic changes or ST elevations. There is an incomplete right bundle-branch block that is evident on prior EKGs. I did repeat the EKG after magnesium resulted. Repeat EKG showing normal sinus rhythm with a rate of 88 beats per minute. There are no QT or QRS changes. His troponin is undetectable. His BNP is undetectable. CHF unlikely. no ELBA. He tested negative for COVID, flu, RSV. His chest x-ray shows moderate emphysema without focal consolidation. No pleural effusion or pneumothorax. > patient endorses increased white sputum and dyspnea - plan to prophylactically treat for COPD exacerbation with ceftriaxone > on chart review, there was a recent CTA chest performed on 04/03/24 where he was noted to have small segmental right upper lobe pulmonary embolus . He has since followed up with pulmonology and was started on apixaban 5 mg BID daily for 30 days and is no longer taking this. > I have been to patient's bedside frequently to re-evaluate him. He has received a DuoNeb, IV magnesium and Solu-Medrol while in the ED. breath sounds have improved however he still has mild expiratory wheezes throughout. He continues to endorse shortness of breath and tells me I feel like I can't get enough air . He has been saturating 95% on RA however he has been consistently tachycardic to 110's. Given recent PE, will re-scan. patient is agreeable. will continue to monitor. 1856 -- patient is stable at the end of my shift. Sign-out given to Robi PRYOR pending CTA chest and disposition Reevaluation(s) Reevaluation #1: Patient would like to be discharged. Initially case was discussed with Dr. Howard for possible admission. She states presently there is no indication for admission but patient should receive 2nd bronchodilator and be re-evaluated than contact her.. Patient states he feels better and would like to be discharged. Ambulatory oxygen saturation 95 97% on room air. Patient was given another albuterol macro dilated treatment as recommended by Dr. Howard. Patient will be discharged with steroids. Patient explained worrisome signs informed to return to the ED immediately. Time: 21:19 Medications Administered Discontinued Medications Generic Name Dose Route Start Last Admin Trade Name Freq PRN Reason Stop Dose Admin Albuterol Sulfate 2.5 mg 06/24/24 21:01 06/24/24 21:03 Albuterol Sulfate (0.083%) 2.5 Mg/3 Ml Vial.Neb INHALE 06/24/24 21:02 2.5 mg ONCE ONE Administration Ceftriaxone Sodium 1 gm 06/24/24 16:21 06/24/24 16:49 Ceftriaxone Sodium 1 Gm Vial IVPUSH 06/24/24 16:22 1 gm ONCE ONE Administration Albuterol Sulfate 2.5 mg/ 0 mg 06/24/24 15:27 06/24/24 15:31 Albuterol/Ipratropium 3 ml INHALE 06/24/24 15:28 1 dose ONCE ONE Administration Magnesium Sulfate 2 gm in 50 mls @ 150 mls/hr 06/24/24 12:46 06/24/24 13:28 Magnesium Sulfate/H2o IV 06/24/24 13:05 Infused ONCE ONE Infusion Iohexol 65 ml 06/24/24 16:59 06/24/24 17:00 Iohexol 350 Mg/Ml 100 Ml Infus..Btl IV 06/24/24 17:00 65 ml ONCE ONE Administration Methylprednisolone Sodium Succinate 80 mg 06/24/24 12:46 06/24/24 13:05 Methylprednisolone Sod Succ 125 Mg/2 Ml Vial IVPUSH 06/24/24 12:47 80 mg ONCE ONE Administration Medical Decision Making Medical Decision Making [facility] Narrative: 59 year old [place] speaking male with pmhx significant for asthma, COPD (emphysema), pulmonary nodules, cocaine use disorder, depression, anxiety, and BPH presents to the ED today for evaluation of shortness of breath x1 week, worsening last night. Vital signs show borderline tachycardia to 99, tachypneic to 22. Afebrile. He is satting 95% on RA. He is thin appearing, sitting comfortably on the exam bed. Exam significant for no tripoding. no increased effort of breathing. audible expiatory wheezing. lung sounds diminished throughout with expiratory wheeze. no crackles. Differential diagnosis as below. Plan for labs, ekg, cxr, ed bronch protocol, IV steroids and mag, re-evaluation. Differential Diagnosis Differential Diagnoses: The differential diagnosis associated with the presentation includes viral syndrome, influenza, bronchitis, emphysema, COPD exacerbation, PE, pleural effusion, CHF, ACS, arrhythmia, anemia, electrolyte abrnormality Admission/Observation Consideration of admission/observation: Escalation of care including admission/observation considered Admission considered on presentation Consult Healthcare Provider Management of the patient was discussed with: Hospitalist Lab Data [facility] Lab Attestation statement: I reviewed the patient's lab results. as above. 06/24/24 13:18 06/24/24 13:18 Labs: Lab Results 06/24/24 06/24/24 Range/Units 13:18 17:16 WBC 5.6 (4.8-10.8) X10*3/uL RBC 3.82 L (4.60-5.80) X10*6/uL Hgb 11.3 L (14.0-18.0) g/dl Hct 33.7 L (42.0-52.0) % MCV 88.2 (80.0-98.0) fL MCH 29.6 (27.0-33.0) pg MCHC 33.5 (31.0-36.0) g/dl RDW 14.2 (11.0-16.0) % Plt Count 368 (160-400) X10*3/uL MPV 8.7 L (9.4-12.4) fL Immature Gran % (Auto) 0.7 H (0.0-0.4) % Neut % (Auto) 53.0 (45-73) % Lymph % (Auto) 31.5 (20-40) % Wilson % (Auto) 10.9 (2-11) % Eos % (Auto) 3.2 (0-4) % Baso % (Auto) 0.7 (0-2) % Lymph # (Auto) 1.8 (1.2-4.9) X10*3/uL Wilson # (Auto) 0.6 (0.1-1.2) X10*3/uL Eos # (Auto) 0.2 (0.0-0.4) X10*3/uL Baso # (Auto) 0.0 (0.0-0.2) X10*3/uL Abs Immat Gran (auto) 0.04 H (0.00-0.03) X10*3/uL Absolute Neuts (auto) 3.0 (2.0-8.3) x10*3/uL Absolute Nucleated RBC 0.000 (0.0-0.012) X10*3/uL Nucleated RBC % (auto) 0.0 (0.0-0.2) /100WBC PT 12.3 (10.9-12.4) SEC INR 1.1 (0.9-1.1) Sodium 138 (135-145) mmol/L Potassium 3.8 (3.3-5.1) mmol/L Chloride 106 (96-108) mmol/L Carbon Dioxide 26 (22-29) mmol/L Anion Gap 10 L (12-20) BUN 10 (9-16) mg/dL Creatinine 0.60 (0.5-1.4) mg/dL Estim Creat Clear Calc 124.4 Estimated GFR > 60 Random Glucose 98 (60-115) mg/dL Calcium 9.0 (8.4-10.2) mg/dL Magnesium 4.4 H* 2.5 (1.6-2.6) mg/dL Total Bilirubin 0.2 (0.0-1.0) mg/dL AST 20 (5-37) U/L ALT 16 (0-40) U/L Alkaline Phosphatase 70 (39-117) U/L Troponin I High Sens < 2.7 (<3.5-35.0) ng/L B-Natriuretic Peptide < 10 (<100) pg/mL Total Protein 6.9 (6.5-8.0) g/dL Albumin 3.7 (3.5-5.0) g/dL Lipase 17 (8-78) U/L Influenza Type A (PCR) NEGATIVE (Negative) Influenza Type B (PCR) NEGATIVE (Negative) RSV RNA Qual (PCR) NEGATIVE (Negative) SARS-CoV-2 RNA (RT-PCR) NEGATIVE (Negative) Independent Interpretation I performed an independent interpretation of an: Plain X-Ray and CT Scan Interpretation: CXR without focal infiltrate or consolidation CTA chest without PE Initial EKG showing NSR with a rate of 90 bpm, QT 370, QTC 452, no acute ischemic changes or ST elevations. Incomplete right bundle-branch block evident on priors. Repeat EKG showing normal sinus rhythm with a rate of 88 beats per minute, QT 374, QTC 452, incomplete right bundle-branch block evident on priors. Radiology Impression Discussion of test interpretation with radiology: I have reviewed the radiologist's reading. Radiologist Impression: EXAMINATION: XR CHEST CLINICAL INFORMATION: sob, exp wheezes COMPARISON: cxr on 04/03/24 TECHNIQUE: 2 views of the chest were obtained. FINDINGS: The cardiac silhouette is normal. There is moderate emphysema. There are no areas of consolidation. There are no pleural effusions or pneumothoraces. The bones and soft tissues are unremarkable for the patient's age. XR/XR chest 2V IMPRESSION: Moderate emphysema. Electronically signed by: Arlyn Rivera MD 06/24/2024 02:[address] [facility] EXAMINATION: CT ANGIOGRAM OF THE CHEST WITH AND WITHOUT CONTRAST (CT PULMONARY ANGIOGRAM FOR PE) CLINICAL INFORMATION: r/o PE, dyspnea, cough COMPARISON: CTA chest April 03, 2024 TECHNIQUE: Prior to contrast administration, noncontrast localization images were obtained. Subsequently, multidetector volumetric imaging was performed from the thoracic inlet to below the diaphragms following the administration of 65 mL Omnipaque 350 intravenous contrast. No contrast reaction reported. Sagittal, coronal, and MIP oblique sagittal reformatted images were obtained on the CT workstation, uploaded to PACS, and reviewed. Total exam dose-length product 182 mGy-cm FINDINGS: QUALITY OF STUDY/CONTRAST BOLUS: Satisfactory. PULMONARY ARTERIES: No central or segmental pulmonary emboli. THORACIC AORTA: No aneurysm or dissection. LUNG: Mild centrilobular emphysema. PLEURA: No pleural effusion or pneumothorax. MEDIASTINUM: Normal heart size. No pericardial effusion. No hilar or mediastinal lymphadenopathy. Moderate coronary artery calcification in the LAD CHEST WALL/AXILLA: No axillary or internal mammary lymphadenopathy. OSSEOUS STRUCTURES: No acute or suspicious osseous abnormality. UPPER ABDOMEN: Bilateral upper pole nephrolithiasis. CT/CT angio chest PE protocol IMPRESSION: 1. No central or segmental pulmonary emboli. 2. Mild centrilobular emphysema. VTE: negative. Electronically signed by: Srini Pires MD 06/24/2024 08:[address] [facility] External Record Review External record reviewed: Inpatient record Prescription Management I considered prescription management with: Antibiotic Chronic Conditions Patient?s care impacted by: Other (Emphysema, PE, lung mass) Social Determinants Patient?s care significantly limited by Social Determinants of Health including: Other Social Determinant of Health Critical Care Time Critical Care Time Critical Care Time: Yes Total Critical Care Time: 34 Attestation: Critical care time in the amount of 34 minutes has been provided to the patient in terms of direct patient care, frequent reevaluation, review and interpretation of medical data and results, and management of potentially life-threatening conditions. This is all outside of any medical procedures. Discharge Plan Discharge Clinical Impression: Asthma exacerbation in COPD Patient Disposition: Home, Self-Care Additional Instructions: Return to the ED immediately for shortness of breath, coughing up blood, fever, chills, weakness, dizziness, calf pain, or any other concerning symptoms. Recommend follow up with primary care provider. Continues albuterol inhaler as needed. Prescriptions: New prednisone 20 mg tablet 40 mg PO DAILY 5 Days Qty: 10 0RF doxycycline hyclate 100 mg capsule 100 mg PO BID 7 Days Qty: 14 0RF No Action clonazepam [Klonopin] 0.5 mg tablet 0.5 mg PO BID risperidone 4 mg tablet 4 mg PO BEDTIME 30 Days Qty: 30 0RF topiramate 50 mg tablet 50 mg PO BEDTIME 30 Days Qty: 30 0RF quetiapine 400 mg tablet 400 mg PO BEDTIME 30 Days Qty: 30 0RF buprenorphine-naloxone [Suboxone] 8-2 mg film 1 film sublingual DAILY 7 Days Qty: 7 0RF ipratropium-albuterol 0.5 mg-3 mg(2.5 mg base)/3 mL solution for nebulization inhalation TID meloxicam 15 mg tablet 15 mg PO DAILY venlafaxine 150 mg capsule,extended release 24hr 150 mg PO DAILY hydroxyzine HCl 50 mg tablet 50 mg PO Q6H PRN (Reason: y) quetiapine 100 mg tablet 100 mg PO 1XD acetaminophen 500 mg tablet 500 mg PO Q6H PRN (Reason: Pain) sildenafil [Viagra] 100 mg tablet 100 mg PO DAILY PRN (Reason: Erectile Dysfunction) baclofen 10 mg tablet 10 mg PO TID pantoprazole 40 mg tablet,delayed release (DR/EC) 40 mg PO DAILY mirtazapine 30 mg tablet 30 mg PO BEDTIME mirtazapine 15 mg tablet 15 mg PO BEDTIME trazodone 50 mg tablet 50 mg PO BEDTIME PRN (Reason: insomnia) atorvastatin 40 mg Tablet 40 mg PO BEDTIME 30 Days Qty: 30 0RF tamsulosin 0.4 mg Capsule 0.8 mg PO DAILY 30 Days Qty: 60 0RF zolpidem 5 mg Tablet 5 mg PO BEDTIME PRN (Reason: insomnia) 15 Days Qty: 15 1RF albuterol sulfate [Ventolin HFA] 90 mcg/actuation HFA aerosol inhaler 2 puff INHALATION Q4-6H PRN (Reason: Wheezing) 30 Days Qty: 6.7 0RF ferrous sulfate 325 mg (65 mg iron) tablet,delayed release (DR/EC) 325 mg PO DAILY Stand Alone Forms: Work/School Release Interventions: ED Discharge Assessment Last Done: 06/24/24 21:28 Discharge Date/Time: 06/24/24 22:10 Print Language: [place]
--- NOTE | 2024-06-24 12:46 | ECG_ITS ---
Test Reason : CHEST PAIN Blood Pressure : / mmHG Vent. Rate : 090 BPM Atrial Rate : 090 BPM P-R Int : 150 ms QRS Dur : 104 ms QT Int : 370 ms P-R-T Axes : 083 045 082 degrees QTc Int : 452 ms Normal sinus rhythm Incomplete right bundle branch block Borderline ECG When compared with ECG of 03-APR-2024 12:47, No significant change was found Referred By: Shruthi Jha Electronically Signed By:AKASH SUAREZ MD
[2024-06-24] MEDS: methylPREDNISolone Sod Succ 125 MG/2 ML VIAL 80 MG IVPUSH (13:05)
[2024-06-24] MEDS: Magnesium Sulfate/H2O 2 GM/50 ML PIGGYBACK IV (13:08)
[2024-06-24 13:23] LABS: MANUAL DIFF FLAG NO
[2024-06-24 13:29] LABS: Basophils Percent Auto 0.7 % (0-2); Eosinophils Absolute Auto 0.2 X10*3/uL (0.0-0.4); Eosinophils Percent Auto 3.2 % (0-4); Hematocrit 33.7 % (42.0-52.0); Hemoglobin 11.3 g/dl (14.0-18.0); Imm Gran Abs Auto 0.04 X10*3/uL (0.00-0.03); Imm Gran Pct Auto 0.7 % (0.0-0.4); Lymphocytes Absolute Auto 1.8 X10*3/uL (1.2-4.9); Lymphocytes Percent Auto 31.5 % (20-40); Mean Corpuscular HGB Conc 33.5 g/dl (31.0-36.0); Mean Corpuscular Hemoglobin 29.6 pg (27.0-33.0); Mean Corpuscular Volume 88.2 fL (80.0-98.0); Mean Platelet Volume 8.7 fL (9.4-12.4); Monocytes Absolute Auto 0.6 X10*3/uL (0.1-1.2); Monocytes Percent Auto 10.9 % (2-11); Platelet Count 368 X10*3/uL (160-400); Red Blood Count 3.82 X10*6/uL (4.60-5.80); Red Cell Distribution Width 14.2 % (11.0-16.0); White Blood Count 5.6 X10*3/uL (4.8-10.8)
[2024-06-24 13:31] LABS: INTERNATIONAL NORM RATIO 1.1 (0.9-1.1); Prothrombin Time 12.3 SEC (10.9-12.4)
[2024-06-24 13:48] LABS: Alanine Aminotransferase 16 U/L (0-40); Albumin Level 3.7 g/dL (3.5-5.0); Alkaline Phosphatase 70 U/L (39-117); Anion Gap 10 (12-20); Aspartate Amino Transferase 20 U/L (5-37); Bilirubin Total 0.2 mg/dL (0.0-1.0); Blood Urea Nitrogen 10 mg/dL (9-16); Carbon Dioxide 26 mmol/L (22-29); Chloride 106 mmol/L (96-108); Creatinine Clr Calc Pharmacy 124.4; Estimated Glomerular Filt Rate > 60; Glucose Random 98 mg/dL (60-115); Lipase 17 U/L (8-78); Potassium 3.8 mmol/L (3.3-5.1); Sodium 138 mmol/L (135-145); Total Protein 6.9 g/dL (6.5-8.0)
[2024-06-24 13:50] LABS: B Type Natriuretic Peptide < 10 pg/mL (<100); Troponin-I High Sensitivity < 2.7 ng/L (<3.5-35.0)
[2024-06-24 14:04] LABS: Influenza A PCR NEGATIVE (Negative); Influenza B PCR NEGATIVE (Negative); Resp Syncy Virus RNA Qual PCR NEGATIVE (Negative); SARS COV2 PCR INHOUSE NEGATIVE (Negative)
[2024-06-24 14:07] LABS: Magnesium 4.4 mg/dL (1.6-2.6)
--- NOTE | 2024-06-24 14:07 | ECG_ITS ---
Test Reason : hypermag Blood Pressure : / mmHG Vent. Rate : 088 BPM Atrial Rate : 088 BPM P-R Int : 154 ms QRS Dur : 110 ms QT Int : 374 ms P-R-T Axes : 082 039 083 degrees QTc Int : 452 ms Normal sinus rhythm Incomplete right bundle branch block Borderline ECG When compared with ECG of 24-JUN-2024 13:01, No significant change was found Referred By: Shruthi Jha Electronically Signed By:AKASH SUAREZ MD
[2024-06-24] MEDS: Albuterol Sulfate 2.5 MG, Albuterol/Iprat 2.5/0.5MG 3 ML 3 ML INHALE (15:31)
[2024-06-24] MEDS: cefTRIAXone sodium 1 GM VIAL IVPUSH (16:49)
--- NOTE | 2024-06-24 16:51 | PC.NURSE ---
pt medicated per MAR
--- NOTE | 2024-06-24 16:53 | PC.NURSE ---
pt taken to CT scan
[2024-06-24] MEDS: iohexoL 350 MG/ML 100 ML INFUS..BTL 65 ML IV (17:00)
[2024-06-24 17:39] LABS: Magnesium 2.5 mg/dL (1.6-2.6)
--- NOTE | 2024-06-24 18:26 | MHC.EDTECH ---
Walked O2 started at 97% on RA we walked up the loaiza and back to room and it dropped to 95% on RA
[2024-06-24] MEDS: Albuterol Sulfate (0.083%) 2.5 MG/3 ML VIAL.NEB INHALE (21:03)
== END 2024-06-24 22:10 | disposition home or self-care (01) ==
PROVIDERS: Physician Assistant Medical; Emergency Provider Emergency Medicine Emergency Medical Services
DX: J44.1 Chronic obstructive pulmonary disease with (acute) exacerbation (principal); R06.02 Shortness of breath; I45.10 Unspecified right bundle-branch block; R07.89 Other chest pain; Z03.818 Encounter for observation for suspected exposure to other biological agents ruled out; Z79.899 Other long term (current) drug therapy; Z87.891 Personal history of nicotine dependence
CPT/HCPCS: 0241U; 36415; 71046; 71275; 80053; 83690; 83735; 83880; 84484; 85025; 85610; 93005; 94640; 96365; 96375; 99284; J0696; J2919; J3475; Q9967

== ENCOUNTER → 2024-06-24 12:46 | Outpatient (BNV) | payer MEDICAID, SELFPAY | PROVIDERS: Emergency Provider Emergency Medicine Emergency Medical Services; Visit Provider Internal Medicine Cardiovascular Disease | DX: I45.19 Other right bundle-branch block (principal); R94.31 Abnormal electrocardiogram [ECG] [EKG]; E83.41 Hypermagnesemia; R07.9 Chest pain, unspecified | CPT/HCPCS: 93010 ==

== ENCOUNTER 2024-07-23 09:38 | Outpatient (REF) | payer MEDICAID, SELFPAY ==
--- NOTE | ~2024-07-23 | CT_ITS ---
CLINICAL HISTORY: R91.8 - Other nonspecific abnormal finding of lung field CT chest without contrast Comparison: CT/SR - CT ANGIO CHEST PE PROTOCOL - 06/24/24 16:51 EST Findings: The heart size is normal. Calcification of the coronary vasculature. The visualized thyroid and mediastinum are unremarkable. No evidence of pneumonia or edema. Mild apical predominant emphysema. 2 mm subpleural nodule within the left lower lobe anterolaterally adjacent to the major fissure (image 43) is unchanged. Visualized portions of the upper abdomen demonstrate nonobstructing calculi within the visualized portions of the kidneys. No acute fractures. IMPRESSION: 1. Coronary artery disease. 2. Small left lower lobe pulmonary nodule. This could be further assessed with follow-up chest CT in 12 months, if clinically indicated. 3. Emphysema. 4. No acute process. 5. Nonobstructing bilateral renal calculi. This document has been electronically signed by: Narda Hewitt MD on 07/23/2024 16:06:43
== END 2024-07-23 09:39 | disposition home or self-care (01) ==
LOC: HO.CT 09:38
PROVIDERS: Visit Provider Internal Medicine Pulmonary Disease
DX: R91.8 Other nonspecific abnormal finding of lung field (principal)
CPT/HCPCS: 71250

== ENCOUNTER → 2024-07-23 09:40 | Outpatient (BNV) | payer MEDICAID, SELFPAY | PROVIDERS: Visit Provider Radiology Diagnostic Radiology | DX: R91.8 Other nonspecific abnormal finding of lung field (principal) | CPT/HCPCS: 71250 ==

== ENCOUNTER 2024-07-29 09:43 | Outpatient (AMB) | payer MEDICAID, SELFPAY ==
[2024-07-29 09:55] VITALS: BP 108/58; PULSE 93; O2SAT 92; BMI 21.1
--- NOTE | 2024-07-29 09:55 | MHC.OFFVIS ---
Vital Signs 07/29/24 09:55 Height 5 ft 4 in Weight 123 lb BMI 21.1 BP 108/58 L Blood Pressure Location Lt brachial Position Sitting Pulse 93 Pulse Source Doppler Pulse Oximetry (%) 92 Oxygen Delivery Method Room Air Intake Visit Reasons: COPD Cutting Machine Tender Required: Yes Cutting Machine Tender Name: Sheila Xavier Tanika Allergies ibuprofen Allergy (Intermediate, Verified 06/24/24 13:12) Stomach Upset penicillin V Allergy (Intermediate, Verified 06/24/24 13:12) rash HPI HPI COPD: Details: 59-year-old gentleman, recent 30+ pack-year smoker, followed for underlying moderate COPD, pulmonary nodules, and unrestful sleep/snoring. After the last office visit patient had repeat CT angio chest that showed resolution of his previously noted pulmonary emboli. He continues on duo nebs and albuterol MDI with good control of his symptoms. He denies recent exacerbations. [facility] Medical History Routine medical exam Lung mass Suicidal ideation Polysubstance abuse Chronic back pain BPH (benign prostatic hyperplasia) Nicotine dependence Cannabis use disorder, moderate, dependence Cocaine use disorder Pulmonary nodules Emphysema of lung Anxiety Depression Asthma Surgical History Hx of cholecystectomy Social History Household Members: None Housing: Apartment Do you presently have visiting nurse or other home services: No Unable to assess alcohol history related to: Unknown Alcohol intake: current Alcohol intake frequency: former alcohol drinker Alcohol type: beer Patient Tobacco Use Status: Former Tobacco user Tobacco use type: Cigarette Cigarette Packs Per Day: 0.5 Cigarettes Per Day: 10.0 Years Smoked: many years e-Cigarette/Vaping Use: Never Used Second Hand Smoke Exposure: No Substance Use Type: Crack/Cocaine Advance Directives Date on File: 01/18/23 service: No Current occupational status: unemployed Current occupation: right hand dominant Sexual orientation: Straight/Heterosexual Review of Systems Const Denies daytime sleepiness, Denies excessive sweating, Denies fatigue, Denies fever(s), Denies lethargy, Denies malaise, Denies night sweats, Denies snoring and Denies weight loss Eyes Denies blurry vision and Denies itchy eyes ENT Denies nasal congestion, Denies post nasal drip, Denies sinus pain, Denies sinus pressure and Denies other ( Thrush) Card Denies chest pain, Denies pedal edema, Denies dyspnea, Denies orthopnea and Denies paroxysmal nocturnal dyspnea Resp Denies cough, Denies hemoptysis, Denies excessive phlegm production, Denies dyspnea, Denies snoring and Denies wheezing GI Denies abdominal pain and Denies heartburn Musc Denies myalgias, Denies arthralgias and Denies joint swelling Skin/Breast Denies rash Neuro Denies memory loss and Denies seizure-like activity Psych Denies abnormal sleep pattern, Denies anxiety and Denies memory loss Endo Denies excessive sweating, Denies fatigue and Denies heat intolerance Alexei/Lymph Denies easy bruising Aller/Immun Denies itchy eyes, Denies seasonal rhinorrhea and Denies wheezing Physical Exam Vital Signs: Last Vital Signs Pulse 93 07/29/24 09:55 BP 108/58 L 07/29/24 09:55 Pulse Ox 92 07/29/24 09:55 Oxygen Delivery Method Room Air 07/29/24 09:55 BMI result Body Mass Index 21.1 Const General: no acute distress and alert Nutritional Appearance: not obese Orientation/consciousness: Other orientation findings ( oriented) HEENT Head: Yes atraumatic Eyes General: appearance normal, both eyes and all related structures Sclerae: sclerae normal EOM: EOMs intact bilaterally Neck Neck: Yes supple Lymphatic: no lymphadenopathy noted Resp Effort & Inspection: normal respiratory effort and no use of accessory muscles Auscultation: clear to auscultation bilaterally Cardio Rate: regular rate Rhythm: regular rhythm Heart sounds: no gallops, no murmurs and no rubs Skin General skin exam: other ( warm) Extrem General: No clubbing, No cyanosis and No edema Assessment & Plan Assessment & Plan (1) COPD (chronic obstructive pulmonary disease): Code(s): J44.9 - Chronic obstructive pulmonary disease, unspecified Category: Medical Plan: Well controlled on current regimen of duo nebs and albuterol MDI. Continue current regimen. (2) Pulmonary nodules: Code(s): R91.8 - Other nonspecific abnormal finding of lung field Category: Medical Plan: Results of CT/CT angio chest reviewed, resolution of underlying pulmonary emboli and no worrisome pulmonary nodules. Continue with yearly screening, next in July of 2025. (3) Pulmonary embolus: Code(s): I26.99 - Other pulmonary embolism without acute cor pulmonale Category: Medical Plan: Pulmonary emboli resolved on follow-up CT angio chest. Will discontinue apixaban at this time. Orders: Orders CT lung screening 07/26/25 Z87.891 - Personal history of nicotine dependence Medications: Discontinued apixaban Discontinued Reason: Doctor's Order 5 mg (2 x 2.5 mg) PO BID 60 tabs 3RF Coding Level of Care Code Est Pt Level 4 (45789) Complex EM visit Add On G2211 Diagnoses COPD (chronic obstructive pulmonary disease) J44.9 Pulmonary nodules R91.8 Pulmonary embolus I26.99
== END 2024-07-29 10:11 | disposition home or self-care (01) ==
PROVIDERS: PCP Internal Medicine; Visit Provider Internal Medicine Pulmonary Disease
DX: J44.9 Chronic obstructive pulmonary disease, unspecified (principal); R91.8 Other nonspecific abnormal finding of lung field; I26.99 Other pulmonary embolism without acute cor pulmonale
CPT/HCPCS: 99214

== ENCOUNTER → 2024-07-29 09:43 | Outpatient (BNVA) | payer MEDICAID, SELFPAY | PROVIDERS: PCP Internal Medicine; Visit Provider Internal Medicine Pulmonary Disease | DX: J44.9 Chronic obstructive pulmonary disease, unspecified (principal); R91.8 Other nonspecific abnormal finding of lung field; I26.99 Other pulmonary embolism without acute cor pulmonale | CPT/HCPCS: 99212 ==

== ENCOUNTER → 2024-08-18 10:53 | Outpatient (BNV) | payer MEDICAID, SELFPAY | PROVIDERS: PCP Internal Medicine; Visit Provider Radiology Diagnostic Radiology | DX: M54.50 Low back pain, unspecified (principal) | CPT/HCPCS: 72148 ==

== ENCOUNTER 2024-08-18 11:26 | Outpatient (REF) | payer MEDICAID, SELFPAY ==
--- NOTE | ~2024-08-18 | MR_ITS ---
CLINICAL HISTORY: chronic low back pain MR lumbar spine without gadolinium Comparison: None Findings: Normal alignment without acute fracture. No marrow infiltration.Multilevel disc dehydration. Conus terminates at L1 level. Unremarkable appearance of the visualized cord and conus medullaris. Right renal T2 hyperintense lesion/cyst could be further evaluated with ultrasound. L5/S1: Mild disc bulge and facet hypertrophy associated with mild bilateral neural foraminal stenosis. L4/L5: Short pedicles and facet /ligamentum flava hypertrophy associated with mild central canal and left neural foraminal stenosis. Otherwise no evidence of significant central canal, neural foraminal, or lateral recess stenosis. IMPRESSION: L5/S1: Mild disc bulge and facet hypertrophy associated with mild bilateral neural foraminal stenosis. L4/L5: Short pedicles and facet /ligamentum flava hypertrophy associated with mild central canal and left neural foraminal stenosis. Right renal T2 hyperintense lesion/cyst could be further evaluated with ultrasound. This document has been electronically signed by: Thao Ball MD on 08/19/2024 12:13:03
--- OUTSIDE RECORDS SUMMARY | 2024-08-18 11:29 | XMS_ITS | Encounter Summary ---
Author Organization [employer] Address [address] [place] [address] Care Team Providers Care Fireproof Door Assembler Name Role Phone Vince Lockhart MD Primary Care Provide r Encounter Details Date Type Department Care Team ([facility] st Contact Info) Description 08/02/2024 Telephone [facility] [address] [place] [address] Georgina Ann RN Social History Tobacco Use Types Packs/Day Years Used Date Smoking Tobacco: Some Days Cigarettes Passive Smoke Exposure: Past Smokeless Tobacco: Never Alcohol Use Standard Drinks/Week Comments Not Currently 0 (1 standard drink = 0.6 oz pure alcohol) 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 Depression Answer Date Recorded Patient Health Questionnaire-9 Score 4 07/02/2024 Patient Health Questionnaire-9 Score 4 07/02/2024 Last PHQ-9: Questionnaire Data Not on file 1 09/02/2023 Housing Stability Answer Date Recorded What is your housing situation today? I have mehul gentile 09/25/[address] you li ve. Do you have problems with any of the following? None of the above 09/25/2023 Food Insecurity Answer Date Recorded Within the past 12 months, y ou worried that your food would run out before you got money to buy more: Often true 09/25/2023 Within the past 12 months,th e food you bought just didn't last and you didn't have enough money to get more: Often true 05/2024 Transportation Answer Date Recorded In the past 12 months, has l ack of transportation kept you from medical appts, meetings, work or from getting things needed for daily living? Yes, it has kept me from medical appointments or getting medications. 04/23/2023 Utilities Answer Date Recorded In the past 12 months, has t he electric, gas, oil or water company threatened to shut off services in your home? No 05/01/2023 Depression Answer Date Recorded Patient Health Questionnaire-2 Score 1 07/02/2024 Internet Access Answer Date Recorded Internet Access Q1 No 06/21/2024 Internet Access Q2 I do not want or need it 12/2023 Sex and Gender Information Value Date Recorded Sex Assigned at Male 05/16/2022 10:14 AM EDT Legal Sex Male 10:14 AM EDT Gender Identity Male 05/16/2022 10:14 AM EDT Sexual Orientation Choose not to disclose 2021 10:14 AM EDT documented as of this encounter Miscellaneous Notes * Telephone Encounter - Georgina Ann RN - 08/02/2024 1:53 PM EST Spoke with DAREK Bean and let her know about the extra 4 mg. Called [facility] and they will send both the 8 mg (two) and 4 mg next week on Monday, . documented in this encounter Plan of Treatment Upcoming Encounters Date Type Department Care Team (Late st Contact Info) Description 08/21/2024 9:00 AM EST Office Visit [facility] [address] [place] [address] Alexander Jones MD [address] [place] [phone] 08/28/2024 9:00 AM EST Office Visit [address] [address] Alexander Jones MD [address] [place] [phone] 10/29/2024 11:30 AM EDT Office Visit [address] [address] Vince Lockhart MD [address] [place] [address] documented as of this encounter Goals Goal Patient Goal Type Associated Problems Recent Progress Patient-Stated? Author Patient will adhere to medication regimen Osiel Conley, PharmD Note: Difficulty with taking medications daily due to no desire documented as of this encounter Visit Diagnoses Not on filedocumented in this encounter Additional Health Concerns Assessment Noted Time PHQ-9 Depression Total Score: 4 07/02/20 24 10:58 AM EST documented as of this encounter Care Teams Fireproof Door Assembler Relationship Specialty Start Date End Date Vince Lockhart MD [address] [place] [address] PCP - General Internal Medicine 04/10/14 [facility] 12/29/23 documented as of this encounter
--- OUTSIDE RECORDS SUMMARY | 2024-08-18 11:29 | XMS_ITS | Encounter Summary ---
Author Organization [employer] Address [address] [place] [address] Care Team Providers Care Marketing Proposal Coordinator Name Role Phone Vince Lockhart MD Primary Care Provide r Reason for Visit * Reason Comments GBAT Encounter Details Date Type Department Care Team (Latest Contact Info) Description 08/07/2024 9:00 AM EST Office Visit [facility] [address] [place], [place] [phone] Alexander Jones MD [address] [place], [place] [phone] Uncomplicated opioid dependence (CMS/HCC) (Primary Dx) Social History Tobacco Use Types Packs/Day Years [...] AM EDT documented as of this encounter Progress Notes * Alexander Jones MD - 08/07/2024 9:00 AM EST Patient with heroin and cocaine use disorder Inconsistent follow-ups for his OBAT MAT, complicated by his medical issues Immune to Hep A/B History of Hepatitic C s/p treatment in 2017 (HCV RNA VL undetectable in 08/2023) Declined PrEP Incarceration history x2; lifetime arrests x6 ; 3 adult children (1 killed; 1 in shelter in [place]) Last LFT (04/03/2024) LAST GBAT VISIT : 2024 UTOX: Bup Augustin again missed GBOT, which he said is due to the fact that he said that his ride did not arrive on time. He said he is extremely tired. Two weeks ago, he was in the hospital for pulmonary issues. He said he feels better, but it left him exhausted. Since Augustin has missed many GBOT appointments in recent weeks, we decided that it would make more sense for him to be treated in individual clinic. He will start going to Monday clinic with [facility]. He asked for an increased dose. Hisdose had been decreased from 24/6 to 16/4 because the visiting nurse said that he was not consistently taking his mid-day dose. Since he was not using opioids, he was asked the reason for his request. He said that he gets urges to use because without the dose in the middle of the day, he gets extreme anxiety. He appeared anxious during the visit, with legs and body shaking. RN told Augustin that the increase will be discussed before his next appointment so that he will receive his agreed upon dose next week. TODAY GBAT VISIT 08/07/2024 UTOX: POS BUP, PERCY NEG FOR FEN Patient presents for Group-Based Opioid Treatment for OUD Reviewed the group goals, expectations and policies Consented to the group treatment options Actively participated in the group discussion with the topic of: Values in Recovery Patient has medications in a locked box and has VNA dispensing medications at home Patient requested to increase the dose of Suboxone Recently diagnosed with PE Following staff present at the visit: Team RN, MAT Physician, Glycerin Supervisor, Clinician, and Packer Inspector Opportunities provided to address individual medical/medication/ concerns Review of Systems Psychiatric/Behavioral: Negative for behavioral problems and dysphoric mood. The patient is not nervous/anxious. Physical Exam Constitutional: Appearance: Normal appearance. Pulmonary: Effort: Pulmonary effort is normal. Neurological: Mental Status: He is alert. Psychiatric: Mood and Affect: Mood normal. Behavior: Behavior normal. Augustin was seen today for gbat. Diagnoses and all orders for this visit: Uncomplicated opioid dependence ([facility]) (Primary) - POCT MARIA ANTONIA-14 Urine Drug Screen Patient presents for a routine OUD OBAT visit Discussed treatment options for opioid dependence Patient is tolerating current treatment of Buprenorphine/Naloxone SL Dose increased from 16mg/4mg daily to 20mg/5mg daily per patient request Discussed behavioral modification and accessing services Counseling provided with a focus on support system, tools for achieving/maintaining recovery Reviewed barriers for these goals Discussed strategies to address when faced situations that may trigger use Continue with current visit schedule Narcan use discussed [place] reviewed Reviewed risk assessment for family planning, STI and PrEP Follow up in 1 week States no cocaine/heroin use for 1 month now This information has been disclosed to you from records protected by federal confidentiality rules (42 CFR Part 2). The federal rules prohibit you from making any further disclosure of information inthis record that identifies a patient as having or having had a substance use disorder either directly, by reference to publicly available information, or through verification of such identification by another person unless further disclosure is expressly permitted by the written consent of the individual whose information is being disclosed or as otherwise permitted by (see2.3.1). The federal rules restrict any use of the information to investigate or prosecute with regard to a crime any patient with a substance use disorder, except as provided at 2.12??(5) and 2.65. documented in this encounter Plan of Treatment Upcoming Encounters Date Type Department Care Team (Late st Contact Info) Description 08/21/2024 9:00 AM EST Office Visit [address] [address] Alexander Jones MD [address] [place] [phone] 08/28/2024 9:00 AM EST Office Visit [address] [address] Alexander Jones MD [address] [place] [address] [phone] 10/29/2024 11:30 AM EDT Office Visit [address] [phone] Vince Lockhart MD [address] [place] [address] [phone] documented as of this encounter Goals Goal Patient Goal Type Associated Problems Recent Progress Patient-Stated? Author Patient will adhere to medication regimen Osiel Conley, MayteD Note: Difficulty with taking medications daily due to no desire documented as of this encounter Procedures Procedure Name Priority Date/Time Associated Diagnosis Comments POCT MARIA ANTONIA-14 URINE DRUG SCREEN Routine 08/07/2024 9:10 AM EST Uncomplicated opioid dependence ([facility]) documented in this encounter Results * POCT MARIA ANTONIA-14 Urine Drug Screen (08/07/2024 9:10 AM EST) THC Negative Cocaine Screen, Urine Positive Opiate Screen, Urine Negative Methamphetamine Screen Urine Negative Amphetamine Screen, Urine Negative Benzodiazepines Screen, Urine Negative Barbiturate Screen, Urine Negative Methadone Screen, Urine Negative Buprenophine Screen, Urine Positive TCA, Urine Negative MDMA Urine Negative ng/mL Oxycodone Screen, Urine Negative Phencyclidine (PCP), Urine Negative Propoxyphene, Urine Negative Fentanyl, Urine Negative Urine Urine specimen obtained by clean catch procedure / Unknown 08/07/2024 9:10 AM EST Yajaira Birmingham MD POINT OF CARE TEST ENTER/EDIT OR DERABLES Final Result documented in this encounter Visit Diagnoses Diagnosis Uncomplicated opioid dependence (CMS/HCC)- Primary documented in this encounter Additional Health Concerns Assessment Noted Time PHQ-9 Depression Total Score: 4 07/02/20 10:58 AM EST documented as of this encounter Care Teams Marketing Proposal Coordinator Relationship Specialty Start Date End Date Vince Lockhart MD [address] [place] [phone] PCP - General Internal Medicine 04/10/14 [facility] 12/29/23 documented as of this encounter
--- OUTSIDE RECORDS SUMMARY | 2024-08-18 11:29 | XMS_ITS | Encounter Summary ---
Author Organization [employer] Address [address] [facility] [address] [place] [address] Care Team Providers Care Cto Name Role Phone Vince Lockhart MD Primary Care Provide r Reason for Visit * Reason Onset Date Comments Med Refill 08/07/2024 Encounter Details Date Type Department Care Team (Late st Contact Info) Description 08/07/2024 Refill [facility] [address] [place] [address] Georgina Ann, GUERO Uncomplicated opioid dependence (CMS/HCC) Social History Tobacco Use Types Packs/Day Years [...] AM EDT documented as of this encounter Plan of Treatment Upcoming Encounters Date Type Department Care Team (Late st Contact Info) Description 08/21/2024 9:00 AM EST Office Visit [address] [address] Alexander Jones MD [address] [place] [phone] 08/28/2024 9:00 AM EST Office Visit [address] [address] Alexander Jones MD [address] [place] [phone] 10/29/2024 11:30 AM EDT Office Visit [address] [address] Vince Lockhart MD [address] [place] [phone] documented as of this encounter Goals Goal Patient Goal Type Associated Problems Recent Progress Patient-Stated? Author Patient will adhere to medication regimen General Osiel Vargas, MayteD Note: Difficulty with taking medications daily due to no desire documented as of this encounter Visit Diagnoses Diagnosis Uncomplicated opioid dependence (CMS/HCC) documented in this encounter Additional Health Concerns Assessment Noted Time PHQ-9 Depression Total Score: 4 07/02/20 10:58 AM EST documented as of this encounter Care Teams Cto Relationship Specialty Start Date End Date Vince Lockhart MD [address] [place] [address] PCP - General Internal Medicine 04/10/14 [facility] 12/29/23 documented as of this encounter
--- OUTSIDE RECORDS SUMMARY | 2024-08-18 11:29 | XMS_ITS | Encounter Summary ---
Author Organization [employer] Address [address] [facility] [address] [place] [address] Care Team Providers Care Jewelry Mold Maker Name Role Phone Vince Lockhart MD Primary Care Provide r Reason for Visit * Reason Comments Recovery Supports Encounter Details Date Type Department Care Team (Late st Contact Info) Description 08/14/2024 Patient Outreach [facility] [address] [place] [address] Trenton Holloway Recovery Supports Social History Tobacco Use Types Packs/Day Years [...] as of this encounter Progress Notes * Trenton Holloway - 08/14/2024 3:39 PM EST I met with Augustin strange. Setting: in person at [facility] Recovery Wellness Goals worked on: Social Stability Action taken/next steps: Attended recovery support group and Offered person centered recovery support Additional comments: CHRISTINE Holloway documented in this encounter Plan of Treatment Upcoming Encounters Date Type Department Care Team (Late st Contact Info) Description 08/21/2024 9:00 AM EST Office Visit [address] [address] Alexander Jones MD [address] [place] [phone] 08/28/2024 9:00 AM EST Office Visit [address] [address] Alexander Jones MD [address] [place] [phone] 10/29/2024 11:30 AM EDT Office Visit [address] [address] Vince Lockhart MD [address] [place] [address] documented as of this encounter Goals Goal [...] documented as of this encounter Care Teams Jewelry Mold Maker Relationship Specialty Start Date End Date Vince Lockhart MD [address] [place] [address] PCP - General Internal Medicine 04/10/14 [facility] 12/29/23 documented as of this encounter
--- OUTSIDE RECORDS SUMMARY | 2024-08-18 11:29 | XMS_ITS | Encounter Summary ---
Author Organization [employer] Address [address] [facility] [address] 7t [place] [address] Care Team Providers Care Golf Caddy Name Role Phone Vince Lockhart MD Primary Care Provide r Encounter Details Date Type Department Care Team ([facility] st Contact Info) Description 08/07/2024 Telephone [facility] MED[facility]INE [address] [place] [address] Georgina Ann RN Social History Tobacco Use [...] encounter Miscellaneous Notes * Telephone Encounter - Radha Lara MA - 08/07/2024 4:52 PM EST Thank you Sarah. * Telephone Encounter - Georgina Ann RN - 08/07/2024 4:10 PM EST Spoke with Geneva, visiting nurse, who said that despite Augustin saying he had his rides for Monday mornings arranged, he does not. GUERO Smith applied for pt1 every Monday. Geneva said thatAugustin is not going to his day program. She said his ex- has moved in, and appears to not be agood influence on him. Alerting team members so that we can check in with him more regularly. documented in this encounter Plan of Treatment Upcoming Encounters Date Type Department Care Team (Late st Contact Info) Description 08/21/2024 9:00 AM EST Office Visit [facility] MEDICINE [address] [place] [address] Alexander Jones MD [address] [place] [address] 08/28/2024 9:00 AM EST Office Visit [address] [address] Alexander Jones MD [address] [place] [address] 10/29/2024 11:30 AM EDT Office Visit [address] [phone] Vince Lockhart MD [address] [place] [address] documented as of this encounter Goals Goal [...] documented as of this encounter Care Teams Golf Caddy Relationship Specialty Start Date End Date Vince Lockhart MD [address] [place] [address] PCP - General Internal Medicine 04/10/14 [facility] 12/29/23 documented as of this encounter
--- OUTSIDE RECORDS SUMMARY | 2024-08-18 11:29 | XMS_ITS | Encounter Summary ---
Author Organization [employer] Address [address] [facility] 7t [place] [address] Care Team Providers Care Kicking Machine Operator Name Role Phone Vince Lockhart MD Primary Care Provide r Reason for Visit * Reason Comments GBAT Encounter Details Date Type Department Care Team (Latest Contact Info) Description 08/14/2024 9:00 AM EST Office Visit [facility] MEDICINE [address] [place], [place] [phone] Alexander Jones MD [address] [place], [place] [phone] Uncomplicated opioid dependence (CMS/HCC) (Primary Dx) Social [...] Progress Notes * Alexander Jones MD - 08/14/2024 9:00 AM EST Patient with heroin and cocaine use disorder Inconsistent follow-ups for his OBAT MAT, complicated by his medical issues Immune to Hep A/B History of Hepatitic C s/p treatment in 2017 (HCV RNA VL undetectable in 08/2023) Declined PrEP Incarceration history x2; lifetime arrests x6 ; 3 adult children (1 killed; 1 in [facility] in [place]) Last LFT (04/03/2024) LAST GBAT VISIT 08/07/2024 UTOX: POS BUP, PERCY [...] at the visit: Team RN, MAT Physician, Bar Supervisor, Clinician, and Licensed Loan Officer Opportunities provided to address individual medical/medication/ concerns LAST GBAT VISIT 08/14/2024 UTOX: POS BUP ONLY NEG FOR FEN OR OTHER SUBSTANCES Patient presents for Group-Based Opioid Treatment for OUD Reviewed the group goals, expectations and policies Consented to the group treatment options Actively participated in the group discussion with the topic of: Extended Check-In Patient has medications in a locked box and has [facility] dispensing medications at home Patient requested to increase the dose of Suboxone Previously diagnosed with PE Following staff present at the visit: Team RN, MAT Physician, Bar Supervisor, Clinician, and Licensed Loan Officer Opportunities provided to address individual medical/medication/ concerns [...] orders for this visit: Uncomplicated opioid dependence ([facility]) (Primary) - POCT MARIA ANTONIA-14 Urine Drug [...] Description 08/21/2024 9:00 AM EST Office Visit [address] [address] Alexander Jones MD [address] [place] [address] [phone] 08/28/2024 9:00 AM EST Office Visit [address] [phone] Alexander Jones MD [address] [place] [address] [phone] 10/29/2024 11:30 AM EDT Office Visit [address] [phone] Vince Lockhart MD [address] [place] [address] [phone] documented as of this encounter Goals Goal Patient Goal Type Associated Problems Recent Progress Patient-Stated? Author Patient will adhere to medication regimen Osiel Conley, MayteD Note: Difficulty with taking medications daily due to no desire documented as of this encounter Procedures Procedure Name Priority Date/Time Associated Diagnosis Comments POCT MARIA ANTONIA-14 URINE DRUG SCREEN Routine 08/14/2024 8:56 AM EST Uncomplicated opioid dependence ([facility]) documented in this encounter Results * POCT MARIA ANTONIA-14 Urine Drug Screen (08/14/2024 8:56 AM EST) THC Negative Cocaine Screen, Urine Negative Opiate Screen, Urine Negative Methamphetamine Screen Urine Negative Amphetamine Screen, Urine Negative Benzodiazepines Screen, Urine Negative Barbiturate Screen, Urine Negative Methadone Screen, Urine Negative Buprenophine Screen, Urine Positive TCA, Urine Negative MDMA Urine Negative ng/mL Oxycodone Screen, Urine Negative Phencyclidine (PCP), Urine Negative Propoxyphene, Urine Negative Fentanyl, Urine Negative Urine Urine specimen obtained by clean catch procedure / Unknown 08/14/2024 8:56 AM EST Alexander Jones MD POINT OF CARE TEST ENTER/EDIT OR DERABLES Final Result documented in this encounter Visit Diagnoses Diagnosis Uncomplicated opioid dependence (CMS/HCC)- Primary documented in this encounter Additional Health Concerns Assessment Noted Time PHQ-9 Depression Total Score: 4 07/02/20 10:58 AM EST documented as of this encounter Care Teams Kicking Machine Operator Relationship Specialty Start Date End Date Vince Lockhart MD [address] [place] [address] PCP - General Internal Medicine 04/10/14 [facility] 12/29/23 documented as of this encounter
--- OUTSIDE RECORDS SUMMARY | 2024-08-18 11:29 | XMS_ITS | Encounter Summary ---
Author Organization [employer] Address [address] [facility] 7t [place] [address] Care Team Providers Care Renewals Manager Name Role Phone Vince Lockhart MD Primary Care Provide r Reason for Visit * Reason Onset Date Comments Med Refill 07/31/2024 Encounter Details Date Type Department Care Team (Late st Contact Info) Description 07/31/2024 Refill [facility] MEDICINE [address] [place], [place] [phone] Rashaun Vila, GUERO [address] [place] [address] Social History Tobacco Use Types Packs/Day Years [...] Description 08/21/2024 9:00 AM EST Office Visit [address] [address] Alexander Jones MD [address] [place] [address] 08/28/2024 9:00 AM EST Office Visit [address] [address] Alexander Jones MD [address] [place] [address] 10/29/2024 11:30 AM EDT Office Visit [address] [address] Vince Lockhart MD [address] [place] [address] documented as of this encounter Goals Goal [...] documented as of this encounter Care Teams Renewals Manager Relationship Specialty Start Date End Date Vince Lockhart MD [address] [place] [address] PCP - General Internal Medicine 04/10/14 [facility] 12/29/23 documented as of this encounter
--- OUTSIDE RECORDS SUMMARY | 2024-08-18 11:29 | XMS_ITS | Encounter Summary ---
Author Organization [employer] Address [address] [facility] [address] 7t [place] [address] Care Team Providers Care Textile Designs Sales Representative Name Role Phone Vince Lockhart MD Primary Care Provide r Encounter Details Date Type Department Care Team (Latest Contact Info) Description 08/07/2024 Travel Social History Tobacco Use Types Packs/Day Years [...] your housing situation today? I have mehul sing 09/25/[address] you li [...] Description 08/21/2024 9:00 AM EST Office Visit [address] [address] Alexander Jones MD [address] [place] [address] 08/28/2024 9:00 AM EST Office Visit [address] [address] Alexander Jones MD [address] [place] [address] 10/29/2024 11:30 AM EDT Office Visit [address] [address] Vince Lockhart MD [address] [place] [address] documented as of this encounter Goals Goal [...] documented as of this encounter Care Teams Textile Designs Sales Representative Relationship Specialty Start Date End Date Vince Lockhart MD 230 [place] [address] PCP - General Internal Medicine 04/10/14 [facility] 12/29/23 documented as of this encounter
--- OUTSIDE RECORDS SUMMARY | 2024-08-18 11:29 | XMS_ITS | Encounter Summary ---
Author Organization [employer] Address [address] [facility] 7t [place] [address] Care Team Providers Care Lumber Inspector Name Role Phone Vince Lockhart MD Primary Care Provide r Reason for Visit * Reason Comments Med Refill Encounter Details Date Type Department Care Team ([facility] st Contact Info) Description 08/08/2024 Refill [facility] MEDICINE 230 [place], [place] [phone] Vince Lockhart MD 230 [place], [place] [phone] Social History Tobacco Use Types Packs/Day Years [...] Description 08/21/2024 9:00 AM EST Office Visit [address] [address] Alexander Jones MD [address] [place] [address] 08/28/2024 9:00 AM EST Office Visit [address] [address] Alexander Jones MD [address] [place] [address] 10/29/2024 11:30 AM EDT Office Visit [address] [address] Vince Lockhart MD [address] [place] [address] documented as of this encounter Goals Goal Patient Goal Type Associated Problems Recent Progress Patient-Stated? Author Patient will adhere to medication regimen General Osiel Vargas, PharmD Note: Difficulty with taking medications daily due to no desire documented as of this encounter Visit Diagnoses Not on filedocumented in this encounter Additional Health Concerns Assessment Noted Time PHQ-9 Depression Total Score: 4 07/02/20 24 10:58 AM EST documented as of this encounter Care Teams Lumber Inspector Relationship Specialty Start Date End Date Vince Lockhart MD [address] [place] [address] PCP - General Internal Medicine 04/10/14 [facility] 12/29/23 documented as of this encounter
--- OUTSIDE RECORDS SUMMARY | 2024-08-18 11:29 | XMS_ITS | Encounter Summary ---
Author Organization [employer] Address [address] [facility] 7t [place] [address] Care Team Providers Care Stock Feeder Name Role Phone Vince Lockhart MD Primary Care Provide r Osiel Mendez PharmD Unavailable [phone] Reason for Visit * Reason Comments Med Refill Encounter Details Date Type Department Care Team (Late st Contact Info) Description 03/01/2023 Refill [facility] MEDICINE 230 [place], [place] [phone] Vince Lockhart MD 230 [place], [place] [phone] Depressive disorder Social History Tobacco Use Types Packs/Day Years Used Date Smoking Tobacco: Every Day Cigarettes Smokeless Tobacco: Never Alcohol Use Standard Drinks/Week Comments Not Currently 0 (1 standard drink = 0.6 oz pure alcohol) 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 Depression Answer Date Recorded Patient Health Questionnaire-9 Score 8 12/16/2022 Depression Answer Date Recorded Patient Health Questionnaire-2 Score 1 12/16/2022 Sex and Gender Information Value Date Recorded Sex Assigned at Male 05/16/2022 10:14 AM EDT Legal Sex Male 10:14 AM EDT Gender Identity Male 05/16/2022 10:14 AM EDT Sexual Orientation Choose not to disclose 2021 10:14 AM EDT documented as of this encounter Miscellaneous Notes * Telephone Encounter - Kaylah Wong RN - 03/01/2023 2:30 PM EDT Per romeo. [facility] documented in this encounter Plan of Treatment Upcoming Encounters Date Type Department Care Team (Late st Contact Info) Description 08/21/2024 9:00 AM EST Office Visit [address] [address] Alexander Jones MD [address] [place] [address] 08/28/2024 9:00 AM EST Office Visit [address] [address] Alexander Jones MD [address] [place] [address] 10/29/2024 11:30 AM EDT Office Visit [address] [address] Vince Lockhart MD [address] [place] [address] documented as of this encounter Goals Goal Patient Goal Type Associated Problems Recent Progress Patient-Stated? Author Patient will adhere to medication regimen General No Osiel Mendez PharmD Note: Difficulty with taking medications daily due to no desire documented as of this encounter Visit Diagnoses Diagnosis Depressive disorder Depressive disorder, not elsewhere classified documented in this encounter Additional Health Concerns Assessment Noted Time PHQ-9 Depression Total Score: 8 12/17/19 23 1:48 PM EDT documented as of this encounter Care Teams Stock Feeder Relationship Specialty Start Date End Date Vince Lockhart MD [address] [place] [address] PCP - General Internal Medicine 04/10/14 Osiel Mendez PharmD [address] [place] [address] Pharmacist Internal Medicine 12/19/22 06/11/23 [facility] 12/29/23 documented as of this encounter
--- OUTSIDE RECORDS SUMMARY | 2024-08-18 11:29 | XMS_ITS | Encounter Summary ---
Author Organization [employer] Address [address] [facility] [address] [address] 7t [place] [address] Care Team Providers Care Elementary Education Tutor Name Role Phone Vince Lockhart MD Primary Care Provide r Encounter Details Date Type Department Care Team (Latest Contact Info) Description 08/14/2024 Travel Social History Tobacco Use Types Packs/Day [...] Description 08/21/2024 9:00 AM EST Office Visit [address] [address] Alexander Jones MD [address] [place] [address] 08/28/2024 9:00 AM EST Office Visit [address] [address] Alexander Jones MD [address] [place] [address] 10/29/2024 11:30 AM EDT Office Visit [address] [address] Vince Lockhart MD [address] [place] [address] documented as of this encounter Goals Goal [...] documented as of this encounter Care Teams Elementary Education Tutor Relationship Specialty Start Date End Date Vince Lockhart MD 230 [place] [address] PCP - General Internal Medicine 04/10/14 [facility] 12/29/23 documented as of this encounter
--- OUTSIDE RECORDS SUMMARY | 2024-08-18 11:29 | XMS_ITS | Encounter Summary ---
Author Organization [employer] Address [address] [facility] [address] 7t [place] [address] Care Team Providers Care Educational Assistant Name Role Phone Vince Lockhart MD Primary Care Provide r Encounter Details Date Type Department Care Team ([facility] st Contact Info) Description 08/01/2024 Telephone [facility] 230 [place], [place] [phone] Alexander Jones MD 230 [place] [address] Social History Tobacco Use Types Packs/Day Years [...] encounter Miscellaneous Notes * Telephone Encounter - Alexander Jones MD - 08/01/2024 11:48 AM EST Rx Suboxone 4mg/1mg additional dose. documented in this encounter Plan of Treatment Upcoming Encounters Date Type Department Care Team (Late st Contact Info) Description 08/21/2024 9:00 AM EST Office Visit [address] [address] Alexander Jones MD [address] [place] [address] 08/28/2024 9:00 AM EST Office Visit [address] [address] Alexander Jones MD [address] [place] [address] 10/29/2024 11:30 AM EDT Office Visit [address] [address] Vince Lockhart MD [address] [place] [address] documented as of this encounter Goals Goal [...] documented as of this encounter Care Teams Educational Assistant Relationship Specialty Start Date End Date Vince Lockhart MD [address] [place] [address] PCP - General Internal Medicine 04/10/14 [facility] 12/29/23 documented as of this encounter
--- OUTSIDE RECORDS SUMMARY | 2024-08-18 11:30 | XMS_ITS | Encounter Summary ---
Author Organization [employer] Address 75 [facility] 7t [place] [address] Care Team Providers Care Cytology Technologist Name Role Phone Vince Lockhart MD Primary Care Provide r Osiel Mendez PharmD Unavailable [phone] Reason for Visit * Reason Comments Med Refill Encounter Details Date Type Department Care Team ([facility] Contact Info) Description 10/11/2022 Refill [facility] MEDICINE 230 [place] [address] Vince Lockhart MD 230 [place], [place] [phone] Depressive disorder Social History Tobacco Use Types Packs/Day Years Used Date Smoking Tobacco: Every Day Cigarettes Smokeless Tobacco: Never Sex and Gender Information Value Date Recorded Sex Assigned at Male 05/16/2022 10:14 AM EDT Legal Sex Male 10:14 AM EDT Gender Identity Male 05/16/2022 10:14 AM EDT Sexual Orientation Choose not to disclose 2021 10:14 AM EDT COVID-19 Exposure Response Date Recorded In the last 10 days, have yo u been in contact with someone who was confirmed or suspected to have Coronavirus/COVID-19? No / Unsure 10/03/2022 3:41 PM EDT documented as of this encounter Plan of Treatment Upcoming Encounters Date Type Department Care Team ([facility] Contact Info) Description 08/21/2024 9:00 AM EST Office Visit [facility] MEDICINE [address] [place] [address] [place] [address] 08/28/2024 9:00 AM EST Office Visit [facility] [place] [address] Alexander Jones MD [place] [facility] [place] [place] [phone] 10/29/2024 11:30 AM EDT Office Visit [facility] [place] [facility] [place] [phone] Vince Lockhart MD [place] [phone] documented as of this encounter Visit Diagnoses Diagnosis Depressive disorder Depressive disorder, not elsewhere classified documented in this encounter Care Teams Cytology Technologist Relationship Specialty Start Date End Date [place] [address] PCP - General Internal Medicine 04/10/14 Osiel Mendez [place] [address] Pharmacist Internal Medicine 12/19/22 06/11/23 [facility] 12/29/23 documented as of this encounter
--- OUTSIDE RECORDS SUMMARY | 2024-08-18 11:30 | XMS_ITS | Encounter Summary ---
Author Organization [employer] Address [address] [facility] 7t [place] [address] Care Team Providers Care Electronics Utility Worker Name Role Phone Vince Lockhart MD Primary Care Provide r Osiel Mendez PharmD Unavailable [phone] Reason for Visit * Reason Onset Date Comments Appointment Request 10/12/2022 Encounter Details Date Type Department Care Team ([facility] st Contact Info) Description 10/12/2022 Telephone [facility] MEDICINE 230 [place], [place] [phone] Vince Lockhart MD 230 [place], [place] [phone] Appointment Request Social History Tobacco Use Types Packs/Day Years Used Date Smoking Tobacco: Every Day Cigarettes Smokeless Tobacco: Never Depression Answer Date Recorded Patient Health Questionnaire-9 [...] suspected to have Coronavirus/COVID-19? No / Unsure 01/04/2023 10:12 AM EDT documented as of this encounter Miscellaneous Notes * Telephone Encounter - Dick Villagran - 10/12/2022 10:29 AM EDT Tc from pt requesting to r/s follow up appt scheduled for 09/13/[address] Hdz, Engine Installer unsure whoto book appt per PCP scheduled for October, Please contact at [phone] [place] documented in this encounter Plan of Treatment Upcoming Encounters Date Type Department Care Team (Late st Contact Info) Description 08/21/2024 9:00 AM EST Office Visit [facility] MEDICINE [address] [place] [address] Alexander Jones MD [address] [place] [address] 08/28/2024 9:00 AM EST Office Visit [facility] MEDICINE [address] [place] [address] Alexander Jones MD 230 [place], [place] [phone] 10/29/2024 11:30 AM EDT Office Visit [facility] [address] [facility] [place] [place] [phone] Vince Lockhart MD [address] [place], [place] [phone] documented as of this encounter Goals Goal Patient Goal Type Associated Problems Recent Progress Patient-Stated? Author Patient will adhere to medication regimen General No Osiel Mendez, Castro Note: Difficulty with taking medications daily due to no desire documented as of this encounter Visit Diagnoses Not on filedocumented in this encounter Care Teams Electronics Utility Worker Relationship Specialty Start Date End Date Vince Lockhart MD [place], [place] [phone] PCP - General Internal Medicine 04/10/14 Osiel Mendez, Castro [address] [place] [address] [phone] Pharmacist Internal Medicine 12/19/22 06/11/23 [facility] 12/29/23 documented as of this encounter
--- OUTSIDE RECORDS SUMMARY | 2024-08-18 11:30 | XMS_ITS | Encounter Summary ---
Author Organization [employer] Address [address] [facility] 7t [place] [address] Care Team Providers Care Horticultural Technical Officer Name Role Phone Vince Lockhart MD Primary Care Provide r Osiel Mendez PharmD Unavailable [phone] Reason for Visit * Reason Onset Date Comments PT1 05/03/2023 Encounter Details Date Type Department Care Team ([facility] st Contact Info) Description 05/03/2023 Telephone [facility] MEDICINE [address] [place], [place] [phone] Vince Lockhart MD [address] [place], [place] [phone] PT1 Social History Tobacco Use Types Packs/Day Years Used Date Smoking Tobacco: Every Day Cigarettes Passive Smoke Exposure: Current Smokeless Tobacco: Never Alcohol Use Standard Drinks/Week Comments Not Currently 0 (1 standard drink = 0.6 oz pure alcohol) 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 Depression Answer Date Recorded Patient Health Questionnaire-9 Score 8 12/16/2022 Housing Stability Answer Date Recorded What is your housing situation today? I have mehul gentile 04/23/[address] you li ve. Do you have problems with any of the following? Pests such as bugs, ants, or mice 04/23/2023 Food Insecurity Answer Date Recorded Within the past 12 months, y ou worried that your food would run out before you got money to buy more: Sometimes True 2022 Within the past 12 months,th e food you bought just didn't last and you didn't have enough money to get more: Sometimes True 05/01/2023 Transportation Answer Date Recorded In the past [...] encounter Miscellaneous Notes * Telephone Encounter - Grace Xavier - 05/04/2023 2:44 PM EDT PT-1 submitted for patient. They will receive a letter of approval or denial in the mail. * Telephone Encounter - Joanna Franz - 05/03/2023 2:55 PM EDT Tc from [facility] requesting a PT1 for Pt. Please contact [facility] if PT1 has been approved or denied Date: 05/08 Time: 11:30 am Visits: n/a Address: [address] [place] [address] [facility] Wheel Chair: no Field Sales Manager Needed: no lay up operator location confirmed: [address] [place] [address] documented in this encounter Plan of Treatment Upcoming Encounters Date Type Department Care Team (Late st Contact Info) Description 08/21/2024 9:00 AM EST Office Visit [facility] [address] [place] [address] Alexander Jones MD [address] [place] [address] 08/28/2024 9:00 AM EST Office Visit [facility] [place] [address] Alexander Jones MD [facility] [place] [address] 10/29/2024 11:30 AM EDT Office Visit [facility] [place] [address] Vince Lockhart MD [facility] [place] [address] documented as of this encounter Goals Goal [...] documented as of this encounter Care Teams Horticultural Technical Officer Relationship Specialty Start Date End Date Vince Lockhart MD [facility] [place] [address] PCP - General Internal Medicine 04/10/14 Osiel Mendez PharmD [address] [place] [address] Pharmacist Internal Medicine 12/19/22 06/11/23 [facility] 12/29/23 documented as of this encounter
--- OUTSIDE RECORDS SUMMARY | 2024-08-18 11:30 | XMS_ITS | Encounter Summary ---
Author Organization [employer] Address [address] [facility] 7t [place] [address] Care Team Providers Care Risk Tech Name Role Phone Vince Lockhart MD Primary Care Provide r Osiel Mendez PharmD Unavailable [phone] Reason for Visit * Reason Onset Date Comments triage 10/03/2022 Encounter Details Date Type Department Care Team ([facility] st Contact Info) Description 10/03/2022 Telephone [facility] MEDICINE 230 [place], [place] [phone] Vince Lockhart MD [address] [place], [place] [phone] triage Social History Tobacco Use Types Packs/Day Years [...] PM EDT documented as of this encounter Miscellaneous Notes * Telephone Encounter - Juliana Hall LPN - 10/03/2022 1:32 PM EDT Triage call returned to patient who reports that he has over one week of painful urination. No blood or pus noted and has no fever. Patient feels that he is voiding frequently. No scrotal swelling orpenile discharge noted. Patient without nausea or vomiting at time of call. Disposition reviewed and patient is in agreement with plan but requires assisted transportation. Is unable to access rust as he has no car and no money. [facility] contacted to arrange for Uber transport for patient. Address and phone number verified at time of call. Protocol Used: Urination Pain - Male (Adult) Protocol-Based Disposition: See in Office or Video Visit Today Positive Triage Question: * All other males with painful urination, or patient wants to be seen * All higher-acuity triage questions were negative Care Advice Discussed: * Drink Extra Fluids * Reasons To Call Back - Fever over 100.4 F (38.0 C) occurs - Side (flank) or lower back pain occurs - You become worse * Telephone Encounter - Manoj Alcantar - 10/03/2022 1:07 PM EDT Symptom: Urination Pain Outcome: Schedule an urgent appointment (within 1 hour) or talk to a nurse or provider soon Reason: Severe pain now The caller accepted this outcome speaks burundian. documented in this encounter Plan of Treatment Upcoming Encounters Date Type Department Care Team (Late st Contact Info) Description 08/21/2024 9:00 AM EST Office Visit [facility] [address] [place] [address] Alexander Jones MD [address] [place] [address] 08/28/2024 9:00 AM EST Office Visit [facility] [address] [place] [address] Alexander Jones MD [address] [place] [address] 10/29/2024 11:30 AM EDT Office Visit [facility] [address] [place], [place] [phone] Vince Lockhart MD [address] [place], [place] [phone] documented as of this encounter Visit Diagnoses Not on filedocumented in this encounter Care Teams Risk Tech Relationship Specialty Start Date End Date Vince Lockhart MD [address] [place] [address] [phone] PCP - General Internal Medicine 04/10/14 Osiel Mendez, MayteD [address] [place] [address] [phone] Pharmacist Internal Medicine 12/19/22 06/11/23 [facility] 12/29/23 documented as of this encounter
--- OUTSIDE RECORDS SUMMARY | 2024-08-18 11:30 | XMS_ITS | Encounter Summary ---
Author Organization [employer] Address 75 [facility] 7t [place] [address] Care Team Providers Care Glue Spreading Machine Operator Name Role Phone Vince Lockhart MD Primary Care Provide r Osiel Mendez PharmD Unavailable [phone] Reason for Visit * Reason Comments Med Refill Encounter Details Date Type Department Care Team (Late st Contact Info) Description 09/09/2022 Telephone [facility] MEDICINE 230 [place], [place] [phone] Vince Lockhart MD [address] [place], [place] [phone] Med Refill Social History Tobacco Use Types Packs/Day Years [...] Telephone Encounter - Kaylah Wong RN - 09/22/2022 1:49 PM EST Call x3 to Jatin Emmanuel. Sent to multiple people with no success in obtaining records. Left messaged with medical department requesting the records for this pt be faxed to our fax number. * Telephone Encounter - Kaylah Wong RN - 09/22/2022 1:49 PM EST ----- Message from Kaylah Wong RN sent at 09/21/2022 2:00 PM EST ----- Pt entered care at [facility] 09/15. Out now but not sure of discharge date. Pharmacy called to tell us that the facility made some med changes. Pt continues to no show and cancel appointments. Tryto get paperwork and reach out to pt documented in this encounter Plan of Treatment Upcoming Encounters Date Type Department Care Team (Late st Contact Info) Description 08/21/2024 9:00 AM EST Office Visit [facility] MEDICINE [address] [place] [address] Alexander Jones MD [address] [place] [address] 08/28/2024 9:00 AM EST Office Visit [address] [address] Alexander Jones MD [address] [place] [address] 10/29/2024 11:30 AM EDT Office Visit [address] [address] Vince Lockhart MD [address] [place] [address] documented as of this encounter Visit Diagnoses Diagnosis Depressive disorder Depressive disorder, not elsewhere classified Difficulty sleeping Unspecified sleep disturbance documented in this encounter Care Teams Glue Spreading Machine Operator Relationship Specialty Start Date End Date Vince Lockhart MD [address] [place] [address] PCP - General Internal Medicine 04/10/14 Osiel Mendez, PharmD [address] [place] [address] Pharmacist Internal Medicine 12/19/22 06/11/23 [facility] 12/29/23 documented as of this encounter
--- OUTSIDE RECORDS SUMMARY | 2024-08-18 11:30 | XMS_ITS | Encounter Summary ---
Author Organization [employer] Address [address] [facility] 7t [place] [address] Care Team Providers Care Social Worker Clinical Name Role Phone Vince Lockhart MD Primary Care Provide r Osiel Mendez PharmD Unavailable [phone] Reason for Visit * Reason Comments Med Refill Encounter Details Date Type Department Care Team ([facility] Contact Info) Description 10/07/2022 Refill [facility] MEDICINE 230 [place] [address] Vince Lockhart MD [address] [place], [place] [phone] Depressive disorder Social History Tobacco Use Types [...] Upcoming Encounters Date Type Department Care Team ([facility] Contact Info) Description 08/21/2024 9:00 AM EST Office Visit [facility] MEDICINE [address] [place] [address] [place] [address] 08/28/2024 9:00 AM EST Office Visit [facility] [place] [address] Alexander Jones MD [facility] [place] [phone] 10/29/2024 11:30 AM EDT Office Visit [facility] [place] [phone] Vince Lockhart MD [facility] [phone] documented as of this encounter Visit Diagnoses Diagnosis Depressive disorder Depressive disorder, not elsewhere classified documented in this encounter Care Teams Social Worker Clinical Relationship Specialty Start Date End Date [place] [address] PCP - General Internal Medicine 04/10/14 Osiel [place] [address] Pharmacist Internal Medicine 12/19/22 06/11/23 [facility] 12/29/23 documented as of this encounter
--- OUTSIDE RECORDS SUMMARY | 2024-08-18 11:30 | XMS_ITS | Encounter Summary ---
Author Organization [employer] Address 75 [facility] 7t [place] [address] Care Team Providers Care Blow Molding Machine Tender Name Role Phone Vince Lockhart MD Primary Care Provide r Osiel Mendez PharmD Unavailable [phone] Reason for Visit * Reason Onset Date Comments Med Refill 12/06/2022 Encounter Details Date Type Department Care Team (Late st Contact Info) Description 12/06/2022 Telephone [facility] MEDICINE 230 [place], [place] [phone] Vince Lockhart MD [address] [place], [place] [phone] Med Refill Social History Tobacco Use Types Packs/Day Years Used Date Smoking Tobacco: Every Day Cigarettes Smokeless Tobacco: Never Depression Answer Date Recorded Patient Health Questionnaire-9 Score 4 07/02/2024 Patient Health Questionnaire-9 Score 4 07/02/2024 Last PHQ-9: Questionnaire Data Not on file 1 09/02/2023 Housing Stability Answer Date Recorded What is your housing situation today? I have mehul seferino 09/25/[address] you li [...] Telephone Encounter - Alexander Jones MD - 12/16/2022 3:15 PM EDT Had AUD Physician intake today. Last PCP visit 02/2022. Will request green team nurses to schedule afollow up with PCP next available. * Telephone Encounter - Sheila Garvin LPN - 12/06/2022 2:16 PM EDT Medication pended to PCP awaiting approval. * Telephone Encounter - Dick Villagran - 12/06/2022 1:33 PM EDT Tc from [facility] requesting a refill for Seroquel 200 & 400 mg documented in this encounter Plan of Treatment Upcoming Encounters Date Type Department Care Team (Late st Contact Info) Description 08/21/2024 9:00 AM EST Office Visit [facility] MEDICINE [address] [place], [place] [address]w[place] [address] [place] [address] 08/28/2024 9:00 AM EST Office Visit [address] [address] Alexander Jones MD [facility] [place] [address] 10/29/2024 11:30 AM EDT Office Visit [address] [address] Vince Lockhart MD [address] [place] [address] documented as of this encounter Goals Goal Patient Goal Type Associated Problems Recent Progress Patient-Stated? Author Patient will adhere to medication regimen General No Osiel Mendez, Castro Note: Difficulty with taking medications daily due to no desire documented as of this encounter Visit Diagnoses Not on filedocumented in this encounter Care Teams Blow Molding Machine Tender Relationship Specialty Start Date End Date Vince Lockhart MD [address] [place], [place] [address] [place] [address] PCP - General Internal Medicine 04/10/14 [place] [address] Pharmacist Internal Medicine 12/19/22 06/11/23 [facility] 12/29/23 documented as of this encounter
--- OUTSIDE RECORDS SUMMARY | 2024-08-18 11:30 | XMS_ITS | Encounter Summary ---
Author Organization [employer] Address 75 [facility] 7t [place] [address] Care Team Providers Care Instrument Engineer Name Role Phone Vince Lockhart MD Primary Care Provide r Osiel Mendez PharmD Unavailable [phone] Reason for Visit * Reason Onset Date Comments FYI 08/18/2022 Encounter Details Date Type Department Care Team ([facility] st Contact Info) Description 08/18/2022 Telephone [facility] MEDICINE 230 [place], [place] [phone] Vince Lockhart MD 230 [place], [place] [phone] FY Social History Tobacco Use Types Packs/Day Years [...] encounter Miscellaneous Notes * Telephone Encounter - Anika Adams MA - 08/25/2022 3:47 PM EST A letter was mailed to the patient, asking him to contact the Forms Department, to discuss his request for MEAT PROCESS WORKER services. * Telephone Encounter - Dick Villagran - 08/18/2022 10:32 AM EST Tc from [facility] would like to inform PCP that pt is being transferred to their services from [facility] system also stated will be faxing forms. Advisedwill leave message as a a FYI Please contact at [phone] documented in this encounter Plan of Treatment Upcoming Encounters Date Type Department Care Team (Late st Contact Info) Description 08/21/2024 9:00 AM EST Office [address] [place] [address] Alexander Jones MD [facility] [place] [address] 08/28/2024 9:00 AM EST Office Visit [address] [place] [address] Alexander Jones MD [facility] [place] [address] 10/29/2024 11:30 AM EDT Office Visit [facility] [place] [address] Vince Lockhart MD [facility] [place], [place] [phone] documented as of this encounter Goals Goal Patient Goal Type Associated Problems Recent Progress Patient-Stated? Author Patient will adhere to medication regimen General No Osiel Mendez, Castro Note: Difficulty with taking medications daily due to no desire documented as of this encounter Visit Diagnoses Not on filedocumented in this encounter Care Teams Instrument Engineer Relationship Specialty Start Date End Date [place] [address] PCP - General Internal Medicine 04/10/14 Osiel Mendez, Castro [address] [place] [address] Pharmacist Internal Medicine 12/19/22 06/11/23 [facility] 12/29/23 documented as of this encounter
--- OUTSIDE RECORDS SUMMARY | 2024-08-18 11:30 | XMS_ITS | Encounter Summary ---
Author Organization [employer] Address 75 [facility] 7t [place] [address] Care Team Providers Care Head Up Operator Helper Name Role Phone Vince Lockhart MD Primary Care Provide r Osiel Mendez PharmD Unavailable [phone] Reason for Visit * Reason Onset Date Comments Med Refill 05/16/2023 Encounter Details Date Type Department Care Team ([facility] st Contact Info) Description 05/16/[address] [facility] MEDICINE 230 [place], [place] [phone] Vince Lockhart MD 230 [place], [place] [phone] Med Refill Social History Tobacco Use Types Packs/Day Years Used Date Smoking Tobacco: Every Day Cigarettes Passive Smoke Exposure: Current Smokeless Tobacco: Never Alcohol Use Standard Drinks/Week Comments Not Currently 0 (1 standard drink = 0.6 oz pure alcohol) 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 Depression Answer Date Recorded Patient Health Questionnaire-9 Score 26 05/16/2023 Patient Health Questionnaire-9 Score 26 05/16/2023 Last PHQ-9: Questionnaire Data Not on file 1 Housing Stability Answer Date Recorded What is [...] got money to buy more: Sometimes True 10/16/ 2023 Within the past 12 months,th e food [...] the past 12 months, has t he [employer], gas, oil or water company threatened to shut off services in your home? No 05/01/2023 Depression Answer Date Recorded Patient Health Questionnaire-2 Score 5 05/16/2023 Sex and Gender Information Value Date Recorded Sex Assigned at Male 05/16/2022 10:14 AM EDT Legal Sex Male 10:14 AM EDT Gender Identity Male 05/16/2022 10:14 AM EDT Sexual Orientation Choose not to disclose 2021 10:14 AM EDT documented as of this encounter Miscellaneous Notes * Telephone Encounter - Zena Rizzo - 05/16/2023 12:54 PM EDT Tc from [facility] requesting med refill on; clonazePAM (KlonoPIN) 0.5 MG tablet documented in this encounter Plan of Treatment Upcoming Encounters Date Type Department Care Team (Late st Contact Info) Description 08/21/2024 9:00 AM EST Office Visit [facility] MEDICINE [address] [place] [address] Alexander Jones MD [address] [place] [address] 08/28/2024 9:00 AM EST Office Visit [address] [address] Alexander Jones MD [address] [place] [address] 10/29/2024 11:30 AM EDT Office Visit [address] [address] Vince Lockhart MD 230 [place] [address] documented as of this encounter Goals Goal Patient Goal Type Associated Problems Recent Progress Patient-Stated? Author Patient will adhere to medication regimen General No Osiel Mendez, PharmCameron Note: Difficulty with taking medications daily due to no desire documented as of this encounter Visit Diagnoses Not on filedocumented in this encounter Additional Health Concerns Assessment Noted Time PHQ-9 Depression Total Score: 26 023 2:35 PM EDT documented as of this encounter Care Teams Head Up Operator Helper Relationship Specialty Start Date End Date Vince Lockhart MD [address] [place] [address] PCP - General Internal Medicine 04/10/14 Osiel Mendez, PharmD [address] [place] [address] Pharmacist Internal Medicine 12/19/22 06/11/23 [facility] 12/29/23 documented as of this encounter
--- OUTSIDE RECORDS SUMMARY | 2024-08-18 11:30 | XMS_ITS | Encounter Summary ---
Author Organization [employer] Address [address] [facility] 7t [place] [address] Care Team Providers Care Tangled Yarn Worker Name Role Phone Vince Lockhart MD Primary Care Provide r Osiel Mendez PharmD Unavailable [phone] Encounter Details Date Type Department Care Team (Late st Contact Info) Description 01/12/2023 Abstract [facility] MEDICINE 230 [place], [place] [phone] Vince Lockhart MD 230 [place], [place] [phone] Social History Tobacco Use Types Packs/Day Years [...] Description 08/21/2024 9:00 AM EST Office Visit [facility] [place] [address] Alexander Jones MD [facility] [place] [address] 08/28/2024 9:00 AM EST Office Visit [facility] [place] [address] Alexander Jones MD [facility] [place] [address] 10/29/2024 11:30 AM EDT Office Visit [facility] [place] [address] Vince Lockhart MD [facility] [place] [address] documented as of this encounter Goals Goal [...] documented as of this encounter Care Teams Tangled Yarn Worker Relationship Specialty Start Date End Date Vince Lockhart MD [facility] [place] [address] PCP - General Internal Medicine 04/10/14 Osiel Mendez PharmD [facility] [place] [address] Pharmacist Internal Medicine 12/19/22 06/11/23 [facility] 12/29/23 documented as of this encounter
--- OUTSIDE RECORDS SUMMARY | 2024-08-18 11:30 | XMS_ITS | Encounter Summary ---
Author Organization [employer] Address [address] [facility] 7t [place] [address] Care Team Providers Care Repairer Switchgear Name Role Phone Vince Lockhart MD Primary Care Provide r Encounter Details Date Type Department Care Team ([facility] st Contact Info) Description 06/19/2023 Telephone [facility] MEDICINE 230 [place], [place] [phone] Vince Lockhart MD 230 [place], [place] [phone] Social History Tobacco Use Types Packs/Day Years [...] is your housing situation today? I have mehulpark gentile 04/23/[address] you [...] Description 08/21/2024 9:00 AM EST Office Visit [address] [address] Alexander Jones MD [address] [place] [address] 08/28/2024 9:00 AM EST Office Visit [address] [address] Alexander Jones MD [address] [place] [address] 10/29/2024 11:30 AM EDT Office Visit [address] [address] Vince Lockhart MD [address] [place] [address] documented as of this encounter Goals Goal [...] documented as of this encounter Care Teams Repairer Switchgear Relationship Specialty Start Date End Date Vince Lockhart MD [address] [place] [address] PCP - General Internal Medicine 04/10/14 [facility] 12/29/23 documented as of this encounter
--- OUTSIDE RECORDS SUMMARY | 2024-08-18 11:30 | XMS_ITS | Encounter Summary ---
Author Organization [employer] Address 75 [facility] 7t [place] [address] Care Team Providers Care Electric Freight Car Operator Name Role Phone Vince Lockhart MD Primary Care Provide r Osiel Mendez PharmD Unavailable [phone] Encounter Details Date Type Department Care Team ([facility] st Contact Info) Description 03/01/[address] [facility] MEDICINE 230 [place], [place] [phone] Vince Lockhart MD 230 [place], [place] [phone] Social History Tobacco Use Types Packs/Day Years [...] encounter Miscellaneous Notes * Telephone Encounter - Joanna Osei - 03/01/2023 10:37 AM EDT Tc from [facility] requesting a call from a nurse in regards to having conflict with another agency. Please contact wilson at [phone] documented in this encounter Plan of Treatment Upcoming Encounters Date Type Department Care Team (Late st Contact Info) Description 08/21/2024 9:00 AM EST Office Visit [address] [address] Alexander Jones MD [address] [place] [address] 08/28/2024 9:00 AM EST Office Visit [address] [address] Alexander Jones MD [address] [place] [address] 10/29/2024 11:30 AM EDT Office Visit [address] [address] Vince Lockhart MD [address] [place] [address] documented as of this encounter Goals Goal [...] documented as of this encounter Care Teams Electric Freight Car Operator Relationship Specialty Start Date End Date Vince Lockhart MD [address] [place] [address] PCP - General Internal Medicine 04/10/14 Osiel Mendez PharmD [address] [place] [address] Pharmacist Internal Medicine 12/19/22 06/11/23 [facility] 12/29/23 documented as of this encounter
--- OUTSIDE RECORDS SUMMARY | 2024-08-18 11:30 | XMS_ITS | Encounter Summary ---
Author Organization [employer] Address 75 [facility] 7t [place] [address] Care Team Providers Care Biotech Production Specialist Name Role Phone Vince Lockhart MD Primary Care Provide r Osiel Mendez PharmD Unavailable [phone] Reason for Visit * Reason Onset Date Comments REQUEST FOR [employer] ASSEMBLER REFERRAL 07/26/2022 I hernandez d regarding the pt's request for a referral for SILVER HOLLOWARE ASSEMBLER services. He needs to state what ADL's he needs assistance with. There was no answer, and I reached a recording stating that the person's mailbox is full. I was unable to leave a msg. Encounter Details Date Type Department Care Team ([facility] Contact Info) Description 07/26/2022 Telephone [facility] MEDICINE 230 [place] [address] Vince Lockhart MD 230 [place] [address] REQUEST FOR SILVER HOLLOWARE ASSEMBLER REFERRAL (I called regarding the pt's request for a referral for SILVER HOLLOWARE ASSEMBLER services. He needs to state what ADL's he needs assistance with. There was no answer, and I reached a recording stating that the person's mailbox is full. I was unable to leave a msg.) Social History Tobacco Use Types Packs/Day Years Used Date Smoking Tobacco: Never Assessed Sex and Gender Information Value Date Recorded [...] Description 08/21/2024 9:00 AM EST Office Visit [address] [address] Alexander Jones MD [address] [place] [address] 08/28/2024 9:00 AM EST Office Visit [address] [address] Alexander Jones MD [address] [place] [address] 10/29/2024 11:30 AM EDT Office Visit [address] [address] Vince Lockhart MD [address] [place] [address] documented as of this encounter Visit Diagnoses Not on filedocumented in this encounter Care Teams Biotech Production Specialist Relationship Specialty Start Date End Date Vince Lockhart MD [address] [place] [address] PCP - General Internal Medicine 04/10/14 Osiel Mendez PharmD [address] [place] [address] Pharmacist Internal Medicine 12/19/22 06/11/23 [facility] 12/29/23 documented as of this encounter
--- OUTSIDE RECORDS SUMMARY | 2024-08-18 11:30 | XMS_ITS | Encounter Summary ---
Author Organization [employer] Address 75 [facility] 7t [place] [address] Care Team Providers Care Insulation Board Calender Operator Name Role Phone Vince Lockhart MD Primary Care Provide r Osiel Mendez PharmD Unavailable [phone] Encounter Details Date Type Department Care Team (Late st Contact Info) Description 09/26/2022 Telephone [facility] MEDICINE [address] [place] [address] Vince Lockhart MD [address] [place] [address] [phone] Social History Tobacco Use Types Packs/Day Years [...] Description 08/21/2024 9:00 AM EST Office Visit [address] [phone] Alexander Jones MD [address] [place] [address] 08/28/2024 9:00 AM EST Office Visit [address] [address] Alexander Jones MD [address] [place] [phone] 10/29/2024 11:30 AM EDT Office Visit [facility] MEDICINE [address] [place] [address] Vince Lockhart MD 230 [facility] [place] [address] documented as of this encounter Visit Diagnoses Not on filedocumented in this encounter Care Teams Insulation Board Calender Operator Relationship Specialty Start Date End Date Vince Lockhart MD [place] [phone] PCP - General Internal Medicine 04/10/14 Osiel Mendez, MayteD [facility] [place] [address] Pharmacist Internal Medicine 12/19/22 06/11/23 [facility] 12/29/23 documented as of this encounter
--- OUTSIDE RECORDS SUMMARY | 2024-08-18 11:30 | XMS_ITS | Encounter Summary ---
Author Organization [employer] Address 75 [facility] 7t [place] [address] Care Team Providers Care Defensive Fire Control Systems Operator Name Role Phone Vince Lockhart MD Primary Care Provide r Osiel Mendez PharmD Unavailable [phone] Reason for Visit * Reason Comments Med Refill Encounter Details Date Type Department Care Team ([facility] Contact Info) Description 10/05/2022 Refill [facility] MEDICINE 230 [place] [address] Vince Lockhart MD 230 [place], [place] [phone] Depressive disorder Social History Tobacco Use Types [...] Upcoming Encounters Date Type Department Care Team ([facility] Contact Info) Description 08/21/2024 9:00 AM EST Office Visit [facility] MEDICINE 230 [place] [address] [place] [address] 08/28/2024 9:00 AM EST Office Visit [facility] [place] [address] Alexander Jones MD [facility] [place] [phone] 10/29/2024 11:30 AM EDT Office Visit [facility] [place] [phone] Vince Lockhart MD [place] [phone] documented as of this encounter Visit Diagnoses Diagnosis Depressive disorder Depressive disorder, not elsewhere classified documented in this encounter Care Teams Defensive Fire Control Systems Operator Relationship Specialty Start Date End [place] [address] PCP - General Internal Medicine 04/10/14 [place] [address] Pharmacist Internal Medicine 12/19/22 06/11/23 [facility] 12/29/23 documented as of this encounter
--- OUTSIDE RECORDS SUMMARY | 2024-08-18 11:30 | XMS_ITS | Encounter Summary ---
Author Organization [employer] Address 75 [facility] 7t [place] [address] Care Team Providers Care Health Outreach Worker Name Role Phone Vince Lockhart MD Primary Care Provide r Osiel Mendez PharmD Unavailable [phone] Encounter Details Date Type Department Care Team (Late Contact Info) Description 11/24/2022 Abstract [facility] MEDICINE 230 [place] [address] Vince Lockhart MD 230 [place], [place] [phone] Social History Tobacco Use Types Packs/Day Years [...] suspected to have Coronavirus/COVID-19? No / Unsure 11/18/2022 2:52 PM EDT documented as of this encounter Plan of Treatment Upcoming Encounters Date Type Department Care Team (Late st Contact Info) Description 08/21/2024 9:00 AM EST Office Visit [facility] MEDICINE 230 [place], [place] [phone] [place] [address] 08/28/2024 9:00 AM EST Office Visit [place] [address] [place] [address] 10/29/2024 11:30 AM EDT Office Visit [place] [address] Vince Lockhart MD [place] [phone] documented as of this encounter Procedures Procedure Name Priority Date/Time Associated Diagnosis Comments COLONOSCOPY Routine 01/08/2018 documented in this encounter Results * Colonoscopy (01/08/2018) Colonoscopy Normal Normal 01/08/2018 Narrative Yulisa Cochran - 01/08/2018 9:39 AM EDT Recommended 10 year follow up ( per provider notes) Historical Provider [facility] Edited Result - Final documented in this encounter Visit Diagnoses Not on filedocumented in this encounter Care Teams Health Outreach Worker Relationship Specialty Start Date End Date Vince Lockhart MD [place] [phone] PCP - General Internal Medicine 04/10/14 Osiel Mendez PharmD [place] [phone] Pharmacist Internal Medicine 12/19/22 06/11/23 [facility] 12/29/23 documented as of this encounter
--- OUTSIDE RECORDS SUMMARY | 2024-08-18 11:30 | XMS_ITS | Encounter Summary ---
Author Organization [employer] Address 75 [facility] 7t [place] [address] Care Team Providers Care Sales Representative Girls' Apparel Name Role Phone Vince Lockhart MD Primary Care Provide r Osiel Mendez PharmD Unavailable [phone] Reason for Visit * Reason Comments Med Refill Encounter Details Date Type Department Care Team ([facility] st Contact Info) Description 06/02/2023 Refill [facility] MEDICINE 230 [place], [place] [phone] Vince Lockhart MD 230 [place], [place] [phone] Depressive disorder Social History Tobacco Use Types [...] the past 12 months, has t he [employer], gas, oil or water company threatened to [...] Description 08/21/2024 9:00 AM EST Office Visit [address] [address] Alexander Jones MD [address] [place] [address] 08/28/2024 9:00 AM EST Office Visit [address] [address] Alexander Jones MD [address] [place] [address] 10/29/2024 11:30 AM EDT Office Visit [address] [address] Vince Lockhart MD [address] [place] [address] documented as of this encounter Goals Goal [...] documented as of this encounter Care Teams Sales Representative Girls' Apparel Relationship Specialty Start Date End Date Vince Lockhart MD 230 [place] [address] PCP - General Internal Medicine 04/10/14 Osiel Menedz PharmD 230 [place] [address] Pharmacist Internal Medicine 12/19/22 06/11/23 [facility] 12/29/23 documented as of this encounter
--- OUTSIDE RECORDS SUMMARY | 2024-08-18 11:30 | XMS_ITS | Encounter Summary ---
Author Organization [employer] Address 75 [facility] 7t [place] [address] Care Team Providers Care Hammer Driver Name Role Phone Vince Lockhart MD Primary Care Provide r Osiel Mendez PharmD Unavailable [phone] Reason for Visit * Reason Onset Date Comments FYI 04/25/2023 Encounter Details Date Type Department Care Team ([facility] st Contact Info) Description 04/25/[address] [facility] MEDICINE 230 [place], [place] [phone] Vince Lockhart MD 230 [place], [place] [phone] FYI Social History Tobacco Use Types Packs/Day Years [...] the past 12 months, has t he [employer], gas, oil or water company threatened to [...] * Telephone Encounter - Dick Villagran - 04/25/2023 10:06 AM EDT Tc from [employer] wastewater project manager DAREK would like to inform PCP that pt no longer has a psych provider. Please contact at [phone] documented in this encounter Plan of Treatment Upcoming Encounters Date Type Department Care Team (Late st Contact Info) Description 08/21/2024 9:00 AM EST Office Visit [facility] MEDICINE [address] [place] [address] Alexander Jones MD [address] [place] [address] 08/28/2024 9:00 AM EST Office Visit [facility] MEDICINE [address] [place] [address] Alexander Jones MD [address] [place] [address] 10/29/2024 11:30 AM EDT Office Visit [facility] MEDICINE 230 [place], [place] [phone] Vince Lockhart MD [address] [place] [address] documented as of this encounter Goals Goal Patient Goal Type Associated Problems Recent Progress Patient-Stated? Author Patient will adhere to medication regimen General No Osiel Mendez, PharmD Note: Difficulty with taking medications daily due to no desire documented as of this encounter Visit Diagnoses Not on filedocumented in this encounter Additional Health Concerns Assessment Noted Time PHQ-9 Depression Total Score: 8 12/17/19 23 1:48 PM EDT documented as of this encounter Care Teams Hammer Driver Relationship Specialty Start Date End Date Vince Lockhart MD [address] [place] [address] PCP - General Internal Medicine 04/10/14 Osiel Mendez, MayteD [address] [place] [address] Pharmacist Internal Medicine 12/19/22 06/11/23 [facility] 12/29/23 documented as of this encounter
--- OUTSIDE RECORDS SUMMARY | 2024-08-18 11:30 | XMS_ITS | Encounter Summary ---
Author Organization [employer] Address 75 [facility] 7t [place] [address] Care Team Providers Care Maintenance Mechanic Telephone Name Role Phone Vince Lockhart MD Primary Care Provide r Osiel Mendez PharmD Unavailable [phone] Encounter Details Date Type Department Care Team (Late Contact Info) Description 10/03/2022 Abstract [facility] MEDICINE 230 [place] [address] Vince Lockhart MD 230 [place], [place] [phone] Social History Tobacco Use Types Packs/Day Years [...] Description 08/21/2024 9:00 AM EST Office Visit [facility] MEDICINE 230 [place], [place] [phone] [place] [address] 08/28/2024 9:00 AM EST Office Visit [facility] [place] [address] [place] [address] 10/29/2024 11:30 AM EDT Office Visit [facility] [place] [address] [place] [address] documented as of this encounter Visit Diagnoses Not on filedocumented in this encounter Care Teams Maintenance Mechanic Telephone Relationship Specialty Start Date End [place] [address] PCP - General Internal Medicine 04/10/14 [place] [address] Pharmacist Internal Medicine 12/19/22 06/11/23 [facility] 12/29/23 documented as of this encounter
--- OUTSIDE RECORDS SUMMARY | 2024-08-18 11:30 | XMS_ITS | Encounter Summary ---
Author Organization [employer] Address 75 [facility] 7t [place] [address] Care Team Providers Care Home Economist Consumer Service Name Role Phone Vince Lockhart MD Primary Care Provide r Reason for Visit * Reason Comments Med Refill Encounter Details Date Type Department Care Team ([facility] st Contact Info) Description 11/27/2023 Refill [facility] MEDICINE 230 [place], [place] [phone] Vince Lockhart MD 230 [place], [place] [phone] Social History Tobacco Use Types Packs/Day Years Used Date Smoking Tobacco: Former Cigarettes Passive Smoke Exposure: Past Smokeless Tobacco: [...] Description 08/21/2024 9:00 AM EST Office Visit [address] [address] Alexander Jones MD [address] [place] [address] 08/28/2024 9:00 AM EST Office Visit [address] [address] Alexander Jones MD [address] [place] [address] 10/29/2024 11:30 AM EDT Office Visit [address] [address] Vince Lockhart MD [address] [place] [address] documented as of this encounter Goals Goal [...] documented as of this encounter Care Teams Home Economist Consumer Service Relationship Specialty Start Date End Date Vince Lockhart MD 230 [place] [address] PCP - General Internal Medicine 04/10/14 [facility] 12/29/23 documented as of this encounter
--- OUTSIDE RECORDS SUMMARY | 2024-08-18 11:31 | XMS_ITS | Encounter Summary ---
Author Organization [employer] Address 75 [facility] 7t [place] [address] Care Team Providers Care Program Support Assistant Name Role Phone Vince Lockhart MD Primary Care Provide r Reason for Visit * Reason Onset Date Comments Created in Error 04/09/2024 Encounter Details Date Type Department Care Team ([facility] st Contact Info) Description 04/09/2024 Telephone [facility] MEDICINE 230 [place], [place] [phone] Vince Lockhart MD 230 [place], [place] [phone] Created in Error Social History Tobacco Use Types Packs/Day Years [...] 08/21/2024 9:00 AM EST Office Visit [address] [address] Alexander Jones MD [address] [place] [address] 08/28/2024 9:00 AM EST Office Visit [address] [address] Alexander Jones MD [address] [place] [address] 10/29/2024 11:30 AM EDT Office Visit [address] [address] Vince Lockhart MD [address] [place] [address] documented as of this encounter Goals Goal [...] documented as of this encounter Care Teams Program Support Assistant Relationship Specialty Start Date End Date Vince Lockhart MD 230 [place] [address] PCP - General Internal Medicine 04/10/14 [facility] 12/29/23 documented as of this encounter
--- OUTSIDE RECORDS SUMMARY | 2024-08-18 11:31 | XMS_ITS | Encounter Summary ---
Author Organization [employer] Address 75 [facility] 7t [place] [address] Care Team Providers Care Shop Coordinator Name Role Phone Vince Lockhart MD Primary Care Provide r Osiel Mendez PharmD Unavailable [phone] Reason for Visit * Reason Onset Date Comments Nurse Triage 03/21/2023 Encounter Details Date Type Department Care Team (Late st Contact Info) Description 03/21/2023 Telephone [facility] MEDICINE 230 [place], [place] [phone] Vince Lockhart MD 230 [place], [place] [phone] Nurse Triage Social History Tobacco Use Types Packs/Day Years [...] encounter Miscellaneous Notes * Telephone Encounter - Donna Matthews RN - 03/21/2023 12:41 PM EDT Called back VNA nurse. She states that he was readmitted to VNA services 2 weeks ago. Pt. Has been having Ultram from the crisis clinic for his low back pain and neck pain. Pt. Also uses lidoderm patches with some relief. Nurse went to pt. House this am and pt. Was not looking well due to not sleeping from the back pain. Pt. Ran out of Ultram medication and VNA nurse states I am requesting a refill on his Ultram because it helps his pain and if he does not get it, he will end up in the ED and we are trying to avoid that at all costs due to his mental health issues. Set up in office appt. With PCP, Dr. Mendoza for 03/28/23 at 1pm to address possible reasons for back pain as pt. Has Hx. And is supposed to be seeing a specialist for kidney function. Pt. Voiding WNL, no fever, no blood in urine. Will send request to PCP to refill RX for Ultram to be given every 6 hours as needed via VNA nurse and pt. Will see PCP on 03/28/23. I do not see Ultram in [facility] med list but there is an older script in [facility] for Tramadol from 2013. I see pt. Was on Percocet as well in past but VNA nurse is requesting a script for Ultram for pt. To keep comfortable with back pain and allow pt. To get sleep at night. Protocol Used: Back Pain (Adult) Protocol-Based Disposition: See in Office or Video Visit within 2 Weeks-appt. Scheduled for 03/28/23at 1pm with PCP. Video visit not offered Positive Triage Question: * Back pain is a chronic symptom (recurrent or ongoing AND lasting > 4 weeks) * All higher-acuity triage questions were negative Care Advice Discussed: * Cold or Heat * Sleep * Activity * Pain Medicines * Telephone Encounter - Chioma Frank - 03/21/2023 12:25 PM EDT Tc from [facility] Symptom: Back Pain - Not From Injury Outcome: Schedule an appointment to be seen within 3 days Reason: Caller denied all higher acuity questions The caller accepted this outcome Please call [phone] documented in this encounter Plan of Treatment Upcoming Encounters Date Type Department Care Team (Late st Contact Info) Description 08/21/2024 9:00 AM EST Office Visit [address] [address] Alexander Jones MD [address] [place] [address] 08/28/2024 9:00 AM EST Office Visit [address] [address] Alexander Jones MD [address] [place] [address] 10/29/2024 11:30 AM EDT Office Visit [address] [address] Vince Lockhart MD [address] [place] [address] documented as of this encounter Goals Goal [...] documented as of this encounter Care Teams Shop Coordinator Relationship Specialty Start Date End Date Vince Lockhart MD [address] [place] [address] PCP - General Internal Medicine 04/10/14 Osiel Mendez PharmD [address] [place] [phone] Pharmacist Internal Medicine 12/19/22 06/11/23 [facility] 12/29/23 documented as of this encounter
--- OUTSIDE RECORDS SUMMARY | 2024-08-18 11:31 | XMS_ITS | Encounter Summary ---
Author Organization [employer] Address [address] [facility] 7t [place] [address] Care Team Providers Care Finish Saw Operator Name Role Phone Vince Lockhart MD Primary Care Provide r Osiel Mendez PharmD Unavailable [phone] Reason for Visit * Reason Onset Date Comments Medication Question 03/21/2023 Encounter Details Date Type Department Care Team ([facility] st Contact Info) Description 03/21/2023 Telephone [facility] MEDICINE [address] [place], [place] [phone] Vince Lockhart MD [address] [place], [place] [phone] Medication Question Social History Tobacco Use Types Packs/Day Years [...] encounter Miscellaneous Notes * Telephone Encounter - Michelle Shin RN - 03/28/2023 2:03 PM EDT Telephone call placed to Adriana ([facility]). Explained that we are not prescribing controlled substances for pain control d/t pt actively using. Multiple times pt has come in and tested positive forillicit substances, also has tested positive in the hospital recently. We make our pts sign narcotics contracts which he can't do because he is using, it is not safe. Adriana stated, I don't think himusing is a good reason to withhold pain management, it's inhumane . I once again explained that it is unsafe for him to be using illicit substances while on narcotics. She states believes him when hesays he's in pain. Is requesting Urology referral for kidney stones. Pt was already referred, he has no showed a couple times. And was wondering if we can Rx flexeril TID for pain instead of ultram. * Telephone Encounter - Joanna Franz - 03/24/2023 12:46 PM EDT Tc from Adriana at [facility] calling in regards to message above. States pt is planning on going to hospital due to lack of pain control. Please contact adriana at [phone] * Telephone Encounter - Chioma Frank - 03/21/2023 12:28 PM EDT Tc from Adriana at [facility] requesting a call back, in regards to medication tramadol 50 mg. documented in this encounter Plan of Treatment Upcoming Encounters Date Type Department Care Team (Late st Contact Info) Description 08/21/2024 9:00 AM EST Office Visit [facility] MEDICINE [address] [place] [address] Alexander Jones MD [address] [place] [address] 08/28/2024 9:00 AM EST Office Visit [facility] [place] [address] Alexander Jones MD [facility] [place] [address] 10/29/2024 11:30 AM EDT Office Visit [facility] [place] [address] Vince Lockhart MD [facility] [place] [address] documented as of this encounter Goals Goal [...] documented as of this encounter Care Teams Finish Saw Operator Relationship Specialty Start Date End Date Vince Lockhart MD [facility] [place] [address] PCP - General Internal Medicine 04/10/14 Oisel Mendez PharmD [address] [place] [address] Pharmacist Internal Medicine 12/19/22 06/11/23 [facility] 12/29/23 documented as of this encounter
--- OUTSIDE RECORDS SUMMARY | 2024-08-18 11:31 | XMS_ITS | Encounter Summary ---
Author Organization [employer] Address 75 [facility] 7t [place] [address] Care Team Providers Care Jump Iron Machine Presser Name Role Phone Vince Lockhart MD Primary Care Provide r Osiel Mendez PharmD Unavailable [phone] Reason for Visit * Reason Comments Med Refill Encounter Details Date Type Department Care Team (Late Contact Info) Description 03/07/2023 Refill [facility] MEDICINE [address] [place] [address] Vince Lockhart MD [address] [place], [place] [phone] Difficulty sleeping Social History Tobacco Use Types Packs/Day Years [...] Encounters Date Type Department Care Team (Late Contact Info) Description 08/21/2024 9:00 AM EST Office Visit [facility] [place] [address] [place] [address] 08/28/2024 9:00 AM EST Office Visit [facility] [place] [address] [place] [address] 10/29/2024 11:30 AM EDT Office Visit [facility] [place] [phone] [place] [address] documented as of this encounter Goals Goal Patient Goal Type Associated Problems Recent Progress Patient-Stated? Author Patient will adhere to medication regimen General No Osiel Mendez, Castro Note: Difficulty with taking medications daily due to no desire documented as of this encounter Visit Diagnoses Diagnosis Difficulty sleeping Unspecified sleep disturbance documented in this encounter Additional Health Concerns Assessment Noted Time PHQ-9 Depression Total Score: 8 12/17/19 23 1:48 PM EDT documented as of this encounter Care Teams Jump Iron Machine Presser Relationship Specialty Start Date End Date Vince [place] [address] PCP - General Internal Medicine 04/10/14 [place] [address] Pharmacist Internal Medicine 12/19/22 06/11/23 [facility] 12/29/23 documented as of this encounter
--- OUTSIDE RECORDS SUMMARY | 2024-08-18 11:31 | XMS_ITS | Encounter Summary ---
Author Organization [employer] Address [address] [facility] 7t [place] [address] Care Team Providers Care Speech Coach Name Role Phone Vince Lockhart MD Primary Care Provide r Osiel Mendez PharmD Unavailable [phone] Reason for Visit * Reason Comments Med Refill Encounter Details Date Type Department Care Team (Late Contact Info) Description 03/03/2023 Refill [facility] MEDICINE [address] [place] [address] Vince Lockhart MD [address] [place], [place] [phone] Depressive disorder; Difficulty sleeping Social History Tobacco Use Types [...] Description 08/21/2024 9:00 AM EST Office [place] [address] [place] [address] 08/28/2024 9:00 AM EST Office Visit [facility] [place] [address] Alexander Jones MD [place] [phone] 10/29/2024 11:30 AM EDT Office Visit [facility] [place] [phone] [place] [address] documented as of this encounter Goals Goal [...] documented as of this encounter Care Teams Speech Coach Relationship Specialty Start Date End [place] [address] PCP - General Internal Medicine 04/10/14 Osiel [place]endez[place] [address] Pharmacist Internal Medicine 12/19/22 06/11/23 [facility] 12/29/23 documented as of this encounter
--- OUTSIDE RECORDS SUMMARY | 2024-08-18 11:31 | XMS_ITS | Encounter Summary ---
Author Organization [employer] Address 75 [facility] 7t [place] [address] Care Team Providers Care Script Developer Name Role Phone Vince Lockhart MD Primary Care Provide r Reason for Visit * Reason Onset Date Comments Nurse Triage 02/28/2024 Encounter Details Date Type Department Care Team ([facility] st Contact Info) Description 02/28/2024 Telephone [facility] MEDICINE [address] [place], [place] [phone] Vince Lockhart MD 230 [place], [place] [phone] Nurse Triage Social History Tobacco Use Types [...] encounter Miscellaneous Notes * Telephone Encounter - Kellie Amezcua RN - 02/28/2024 1:18 PM EDT Triage call with [employer] Information Systems Architect [place] [id number]. Pt reports headache and some dizziness for week now. Pt only drinks 3 glasses water daily and is advised to increase to 6-8 glasses daily , may includejuice, decaf tea, vitamin water etc. Pt is not taking tylenol/motrin and is advised can take eitherone for headache. Pt is advised to apply cold wash cloth to forehead while resting. Pt denies fever, blurred vision. Pt does report headache is in both eyes like a soreness. Pt is very sleepy at timeof call. Pt is advised to come to [facility] today and Pt asks if alright to come tomorrow. Pt will come tomorrow to be seen by provider. Insurance is verified as active . Protocol Used: Headache (Adult) Protocol-Based Disposition: See in Office or Video Visit Today or Tomorrow Video visit not offered Positive Triage Question: * Unexplained headache that is present > 24 hours * All higher-acuity triage questions were negative Care Advice Discussed: * Pain Medicines * Rest for Headache * Cold Pack for Headache * Stretching * Reasons To Call Back - Severe headache persists over 2 hours after pain medicine - Headache lasts over 24 hours despite using a pain medicine * Telephone Encounter - Ora Santos - 02/28/2024 11:15 AM EDT Symptoms: Headache, Dizziness Outcome: Schedule an urgent appointment (within 4 hours) or talk to a nurse or provider soon Reason: Getting worse The caller accepted this outcome documented in this encounter Plan of Treatment Upcoming Encounters Date Type Department Care Team (Late st Contact Info) Description 08/21/2024 9:00 AM EST Office Visit [address] [address] Alexander Jones MD [address] [place] [address] 08/28/2024 9:00 AM EST Office Visit [address] [address] Alexander Jones MD [address] [place] [address] 10/29/2024 11:30 AM EDT Office Visit [address] [address] Vince Lockhart MD [address] [place] [address] documented as of this encounter Goals Goal [...] documented as of this encounter Care Teams Script Developer Relationship Specialty Start Date End Date Vince Lochkart MD [address] [place] [address] PCP - General Internal Medicine 04/10/14 [facility] 12/29/23 documented as of this encounter
--- OUTSIDE RECORDS SUMMARY | 2024-08-18 11:31 | XMS_ITS | Encounter Summary ---
Author Organization [employer] Address 75 [facility] 7t [place] [address] Care Team Providers Care Vocational Counselor Name Role Phone Vince Lockhart MD Primary Care Provide r Reason for Visit * Reason Comments Med Refill Encounter Details Date Type Department Care Team ([facility] st Contact Info) Description 06/26/2023 Refill [facility] MEDICINE 230 [place], [place] [phone] Vince Lockhart MD 230 [place], [place] [phone] Mixed hyperlipidemia Social History Tobacco Use Types Packs/Day Years [...] 08/21/2024 9:00 AM EST Office Visit [address] [address] Alexander Jones MD [address] [place] [address] 08/28/2024 9:00 AM EST Office Visit [address] [address] Alexander Jones MD [address] [place] [address] 10/29/2024 11:30 AM EDT Office Visit [address] [address] Vince Lockhart MD [address] [place] [address] documented as of this encounter Goals Goal Patient Goal Type Associated Problems Recent Progress Patient-Stated? Author Patient will adhere to medication regimen Osiel Conley, MayteD Note: Difficulty with taking medications daily due to no desire documented as of this encounter Visit Diagnoses Diagnosis Mixed hyperlipidemia documented in this encounter Additional Health Concerns Assessment Noted Time PHQ-9 Depression Total Score: 26 023 2:35 PM EDT documented as of this encounter Care Teams Vocational Counselor Relationship Specialty Start Date End Date Vince Lockhart MD [address] [place] [address] PCP - General Internal Medicine 04/10/14 [facility] 12/29/23 documented as of this encounter
--- OUTSIDE RECORDS SUMMARY | 2024-08-18 11:31 | XMS_ITS | Encounter Summary ---
Author Organization [employer] Address 75 [facility] 7t [place] [address] Care Team Providers Care Newspaper Clipper Name Role Phone Vince Lockhart MD Primary Care Provide r Reason for Visit * Reason Comments Med Refill Encounter Details Date Type Department Care Team (Late st Contact Info) Description 02/19/2024 Refill [facility] MEDICINE 230 [place], [place] [phone] Vince Lockhart MD [address] [place], [place] [phone] Chronic midline low back pain without sciatica Social History Tobacco Use Types Packs/Day Years [...] Description 08/21/2024 9:00 AM EST Office Visit [address] [address] Alexander Jones MD [address] [place] [address] 08/28/2024 9:00 AM EST Office Visit [address] [address] Alexander Jones MD [address] [place] [address] 10/29/2024 11:30 AM EDT Office Visit [address] [address] Vince Lockhart MD [address] [place] [address] documented as of this encounter Goals Goal Patient Goal Type Associated Problems Recent Progress Patient-Stated? Author Patient will adhere to medication regimen Osiel Conley, MayteD Note: Difficulty with taking medications daily due to no desire documented as of this encounter Visit Diagnoses Diagnosis Chronic midline low back pain without sciatica documented in this encounter Additional Health Concerns Assessment Noted Time PHQ-9 Depression Total Score: 26 023 2:35 PM EDT documented as of this encounter Care Teams Newspaper Clipper Relationship Specialty Start Date End Date Vince Lockhart MD [address] [place] [address] PCP - General Internal Medicine 04/10/14 [facility] 12/29/23 documented as of this encounter
--- OUTSIDE RECORDS SUMMARY | 2024-08-18 11:31 | XMS_ITS | Encounter Summary ---
Author Organization [employer] Address [address] [facility] [address] 7t [place] [address] Care Team Providers Care Senior Investment Manager Name Role Phone Vince Lockhart MD Primary Care Provide r Encounter Details Date Type Department Care Team (Latest Contact Info) Description 07/24/2024 Travel Social History Tobacco Use Types Packs/Day [...] Description 08/21/2024 9:00 AM EST Office Visit [address] [address] Alexander Jones MD [address] [place] [address] 08/28/2024 9:00 AM EST Office Visit [address] [address] Alexander Jones MD [address] [place] [address] 10/29/2024 11:30 AM EDT Office Visit [address] [address] Vince Lockhart MD [address] [place] [address] documented as of this encounter Goals Goal [...] documented as of this encounter Care Teams Senior Investment Manager Relationship Specialty Start Date End Date Vince Lockhart MD [address] [place] [address] PCP - General Internal Medicine 04/10/14 [facility] 12/29/23 documented as of this encounter
--- OUTSIDE RECORDS SUMMARY | 2024-08-18 11:31 | XMS_ITS | Encounter Summary ---
Author Organization [employer] Address 75 [facility] 7t [place] [address] Care Team Providers Care Component Lab Tech Name Role Phone Vince Lockhart MD Primary Care Provide r Reason for Visit * Reason Comments Med Refill Encounter Details Date Type Department Care Team (Late st Contact Info) Description 04/10/2024 Refill [facility] MEDICINE 230 [place], [place] [phone] Felicia Hdz, ANP 230 [place] [address] Social History Tobacco Use Types Packs/Day Years [...] Description 08/21/2024 9:00 AM EST Office Visit [address] [address] Alexander Jones MD [address] [place] [address] 08/28/2024 9:00 AM EST Office Visit [address] [address] Alexander Jones MD [address] [place] [address] 10/29/2024 11:30 AM EDT Office Visit [address] [address] Vince Lockhart MD [address] [place] [address] documented as of this encounter Goals Goal [...] documented as of this encounter Care Teams Component Lab Tech Relationship Specialty Start Date End Date Vince Lockhart MD 230 [place] [address] PCP - General Internal Medicine 04/10/14 [facility] 12/29/23 documented as of this encounter
--- OUTSIDE RECORDS SUMMARY | 2024-08-18 11:31 | XMS_ITS | Encounter Summary ---
Author Organization [employer] Address 75 [facility] 7t [place] [address] Care Team Providers Care Brick Catcher Name Role Phone Vince Lockhart MD Primary Care Provide r Reason for Visit * Reason Onset Date Comments Nurse Triage 04/03/2024 Encounter Details Date Type Department Care Team ([facility] st Contact Info) Description 04/03/2024 Telephone [facility] MEDICINE 230 [place], [place] [phone] Vince Lockhart MD 230 [place], [place] [phone] Nurse Triage Social History Tobacco Use Types [...] Telephone Encounter - Kellie Amezcua RN - 04/03/2024 11:10 AM EDT Triage call to Pt with [place] [employer] [place] [id number]. Pt is called regarding call in about headache and dizziness. Pt answered and confirmed birthdate and another person (female) got on phone and asked to call backin four hours. Pt is informed to call back for triage when available. Pt agreed. * Telephone Encounter - Dick Villagran - 04/03/2024 9:14 AM EDT Symptoms: Headache, Dizziness Outcome: Schedule an urgent appointment (within 4 hours) or talk to a nurse or provider soon Reason: Getting worse The caller accepted this outcome. Please contact at [phone] [employer] documented in this encounter Plan of Treatment Upcoming Encounters Date Type Department Care Team (Late st Contact Info) Description 08/21/2024 9:00 AM EST Office Visit [facility] [place] [address] [place] [address] 08/28/2024 9:00 AM EST Office Visit [facility] [place] [address] Alexander Jones MD [facility] [place], [place] [phone] 10/29/2024 11:30 AM EDT Office Visit [facility] [place] [phone] Vince Lockhart MD [place], [place] [phone] documented as of this encounter Goals Goal [...] documented as of this encounter Care Teams Brick Catcher Relationship Specialty Start Date End Date Vince Lockhart MD [facility] [place] [address] PCP - General Internal Medicine 04/10/14 [facility] 12/29/23 documented as of this encounter
--- OUTSIDE RECORDS SUMMARY | 2024-08-18 11:31 | XMS_ITS | Encounter Summary ---
Author Organization [employer] Address [address] [facility] [address] [address] 7t [place] [address] Care Team Providers Care Rooming House Inspector Name Role Phone Vince Lockhart MD Primary Care Provide r Reason for Visit * Reason Onset Date Comments Care Management 07/12/2023 C3CM- initial as sessment/enrollment Encounter Details Date Type Department Care Team (Late st Contact Info) Description 07/12/2023 Telephone [facility] MEDICINE [address] [place] [address] Atilio Franz RN [address] [place] [address] Care Management (C3CM- initial assessment/enrollment) Social History Tobacco Use Types Packs/Day Years [...] encounter Miscellaneous Notes * Telephone Encounter - Atilio Franz RN - 07/12/2023 1:05 PM EST CM Atilio Franz RN met with patient for agreed upon time for initial assessment for enrollment into Adult Care Management Program. Patient's name, , and address were verified. Augustin is a 58 year old male with Hx of HTN, pulmonary emphysema, chronic anemia, kidney stones, anxiety, cocaine abuse, bipolar affective disorder, depressive disorder, benign prostatic hyperplasia with nocturia, andweight loss. Patient reports currently living in an apartment in [place]. Per pt, lives alone and states he does not have much support. Patient states he would like to move out of his current neighborhood. Per patient, there are many drug deals that go on in his neighborhood which makes it difficult for him to stay sober. Patient states he has a visiting nurse named Angeline who helps with medication management and coordination of provider visits. Patient expresses difficulty with completing ADLsdue to chronic low back pain and episodes of dizziness. Patient would like to receive PRINCIPAL DEVELOPER services for these reasons. Patient reports attending visits with [facility] on a weekly basis. He also states he follows up regularly with therapy and psych at [facility]. Per pt, takes all medications as prescribed. Patient unable to list names of meds but states these are managed by his visiting nurse. Patient reports monitoring his BP daily and states BP readings have been wnl. Per patient, received the nebulizer from [facility]. He states he has not received a script for ensure. Patient reports losing his dentures during last inpatient stay at [facility] psych. Per patient, not having his dentures makes it very difficultand painful for him to eat which has affected his weight. Patient denies having any upcoming appointments to specialty offices. Care management program explained and contact information given. Patient verbalizes understanding, and able to repeat back to keno writer. A follow up call will be placed within 10 days, patient agrees with plan. AVANI Franz RN, provided notification to PCP Dr. Mendoza of patient's enrollment into [facility] Complex Care Program. AVANI Franz RN, completed care plan and sent to HIM to be scanned into the medical record. PCP notified and awaiting review from provider. documented in this encounter Plan of Treatment Upcoming Encounters Date Type Department Care Team (Late st Contact Info) Description 08/21/2024 9:00 AM EST Office Visit [facility] MEDICINE [address] [place] [address] Alexander Jones MD [address] [place] [address] 08/28/2024 9:00 AM EST Office Visit [address] [address] Alexander Jones MD [address] [place] [address] 10/29/2024 11:30 AM EDT Office Visit [address] [address] Vince Lockhart MD [address] [place] [address] documented as of this encounter Goals Goal Patient Goal Type Associated Problems Recent Progress Patient-Stated? Author Patient will adhere to medication regimen General No Mendez, Jerril, PharmD Note: Difficulty with taking medications daily due to no desire documented as of this encounter Visit Diagnoses Diagnosis Uncomplicated opioid dependence (CMS/HCC)- Primary documented in this encounter Additional Health Concerns Assessment Noted Time PHQ-9 Depression Total Score: 26 023 2:35 PM EDT documented as of this encounter Care Teams Rooming House Inspector Relationship Specialty Start Date End Date Vince Lockhart MD [address] [place] [address] PCP - General Internal Medicine 04/10/14 [facility] 12/29/23 documented as of this encounter
--- OUTSIDE RECORDS SUMMARY | 2024-08-18 11:31 | XMS_ITS | Encounter Summary ---
Author Organization [employer] Address 75 [facility] 7t [place] [address] Care Team Providers Care Fruit Or Nut Picker Name Role Phone Vince Lockhart MD Primary Care Provide r Reason for Visit * Reason Onset Date Comments PT1 04/10/2024 Encounter Details Date Type Department Care Team ([facility] st Contact Info) Description 04/10/2024 Telephone [facility] MEDICINE [address] [place], [place] [phone] Vince Lockhart MD [address] [place], [place] [phone] PT1 Social History Tobacco Use Types Packs/Day [...] encounter Miscellaneous Notes * Telephone Encounter - Janette Gillis - 04/10/2024 3:59 PM EDT Tc from Sheila with [facility] [place] [facility] requesting PT1 Patient calling requesting PT1 Home Address verified: Y/N: Yes Provider name or facility name: [facility] Facility Address: [address] [place] [address] Escort needed: Y/N: No Do you have a wheelchair: Y/N: No If yes- Manual or electric: n/a Visits: 3 x month documented in this encounter Plan of Treatment Upcoming Encounters Date Type Department Care Team (Late st Contact Info) Description 08/21/2024 9:00 AM EST Office Visit [facility] MED[facility] [address] [place] [address] Alexander Jones MD [address] [place] [address] 08/28/2024 9:00 AM EST Office Visit [facility] [address] [place] [address] Alexander Jones MD [address] [place] [address] 10/29/2024 11:30 AM EDT Office Visit [facility] MED[facility] [address] [place], [place] [phone] Vince Lockhart MD [address] [place], [place] [phone] documented as of this encounter Goals Goal [...] documented as of this encounter Care Teams Fruit Or Nut Picker Relationship Specialty Start Date End Date Vince Lockhart MD [address] [place] [address] [phone] PCP - General Internal Medicine 04/10/14 [facility] 12/29/23 documented as of this encounter
--- OUTSIDE RECORDS SUMMARY | 2024-08-18 11:31 | XMS_ITS | Encounter Summary ---
Author Organization [employer] Address 75 [facility] 7t [place] [address] Care Team Providers Care Drill Punch Operator Name Role Phone Vince Lockhart MD Primary Care Provide r Reason for Visit * Reason Comments Med Refill Encounter Details Date Type Department Care Team (Late st Contact Info) Description 09/21/2023 Refill [facility] MEDICINE 230 [place], [place] [phone] Vince Lockhart MD [address] [place], [place] [phone] Hospital discharge follow-up Social History Tobacco Use Types Packs/Day Years [...] Description 08/21/2024 9:00 AM EST Office Visit [address] [address] Alexander Jones MD [address] [place] [address] 08/28/2024 9:00 AM EST Office Visit [address] [address] Alexander Jones MD [address] [place] [address] 10/29/2024 11:30 AM EDT Office Visit [address] [address] Vince Lockhart MD [address] [place] [address] documented as of this encounter Goals Goal Patient Goal Type Associated Problems Recent Progress Patient-Stated? Author Patient will adhere to medication regimen Osiel Conley, MayteD Note: Difficulty with taking medications daily due to no desire documented as of this encounter Visit Diagnoses Diagnosis Hospital discharge follow-up Other follow-up examination documented in this encounter Additional Health Concerns Assessment Noted Time PHQ-9 Depression Total Score: 26 023 2:35 PM EDT documented as of this encounter Care Teams Drill Punch Operator Relationship Specialty Start Date End Date Vince Lockhart MD [address] [place] [address] PCP - General Internal Medicine 04/10/14 [facility] 12/29/23 documented as of this encounter
--- OUTSIDE RECORDS SUMMARY | 2024-08-18 11:31 | XMS_ITS | Encounter Summary ---
Author Organization [employer] Address 75 [facility] 7t [place] [address] Care Team Providers Care Pig Machine Supervisor Name Role Phone Vince Lockhart MD Primary Care Provide r Reason for Visit * Reason Onset Date Comments Error 10/20/2023 Encounter Details Date Type Department Care Team ([facility] st Contact Info) Description 10/20/2023 Telephone [facility] MEDICINE 230 [place], [place] [phone] Vince Lockhart MD 230 [place] [address] Error Social History Tobacco Use Types Packs/Day [...] Description 08/21/2024 9:00 AM EST Office Visit [address] [address] Alexander Jones MD [address] [place] [address] 08/28/2024 9:00 AM EST Office Visit [address] [address] Alexander Jones MD [address] [place] [address] 10/29/2024 11:30 AM EDT Office Visit [address] [address] Vince Lockhart MD [address] [place] [address] documented as of this encounter Goals Goal [...] documented as of this encounter Care Teams Pig Machine Supervisor Relationship Specialty Start Date End Date Vince Lockhart MD [address] [place] [address] PCP - General Internal Medicine 04/10/14 [facility] 12/29/23 documented as of this encounter
--- OUTSIDE RECORDS SUMMARY | 2024-08-18 11:31 | XMS_ITS | Encounter Summary ---
Author Organization [employer] Address 75 [facility] 7t [place] [address] Care Team Providers Care Electro Mechanical Technician Name Role Phone Vince Lockhart MD Primary Care Provide r Reason for Visit * Reason Comments Med Refill Encounter Details Date Type Department Care Team (Late st Contact Info) Description 03/18/2024 Refill [facility] [address] [place], [place] [phone] Yajaira Birmingham MD [address] [place] [address] Depressive disorder Social History Tobacco Use Types [...] Description 08/21/2024 9:00 AM EST Office Visit [facility] MED[facility]INE [address] [place] [address] Alexander Jones MD [address] [place] [address] 08/28/2024 9:00 AM EST Office Visit [address] [address] Alexander Jones MD [address] [place] [address] 10/29/2024 11:30 AM EDT Office Visit [address] [address] Vince Lockhart MD [address] [place] [address] documented as of this encounter Goals Goal [...] documented as of this encounter Care Teams Electro Mechanical Technician Relationship Specialty Start Date End Date Vince Lockhart MD [address] [place] [address] PCP - General Internal Medicine 04/10/14 [facility] 12/29/23 documented as of this encounter
--- OUTSIDE RECORDS SUMMARY | 2024-08-18 11:31 | XMS_ITS | Encounter Summary ---
Author Organization [employer] Address 75 [facility] 7t [place] [address] Care Team Providers Care Dredge Captain Name Role Phone Vince Lockhart MD Primary Care Provide r Reason for Visit * Reason Comments OBAT F/U Encounter Details Date Type Department Care Team (Late st Contact Info) Description 07/24/2024 9:00 AM EST Office Visit [facility] MEDICINE 230 [place], [place] [phone] Alexander Jones MD 230 [place], [place] [phone] Opioid type dependence, continuous (CMS/HCC) (Primary Dx) Social History Tobacco Use [...] Progress Notes * Alexander Jones MD - 07/24/2024 9:00 AM EST Patient with heroin and cocaine use disorder Inconsistent follow-ups for his OBAT MAT, complicated by his medical issues Immune to Hep A/B History of Hepatitic C s/p treatment in 2017 (HCV RNA VL undetectable in 08/2023) Declined PrEP Incarceration history x2; lifetime arrests x6 ; 3 adult children (1 killed; 1 in correction in [place]) Last LFT (04/03/2024) LAST GBAT VISIT 07/03/2024 UTOX: POS BUP, PERCY, THC Patient presents for Group-Based Opioid Treatment for OUD Reviewed the group goals, expectations and policies Consented to the group treatment options Actively participated in the group discussion with the topic of: Toolbox for Maintaining Sobriety Patient has medications in a locked box and has VNA dispensing medications at home Following staff present at the visit: Team RN, MAT Physician, Eyeglass Frame Truer, Clinician, and Pit Tanner Opportunities provided to address individual medical/medication/ concerns TODAY OBAT VISIT 07/24/2024 UTOX: POS BUP ONLY NEG FOR ALL OTHER SUBSTANCES Patient presents for Office-Based Opioid Treatment for OUD Came to the group late and the visit changed to an individual OBAT visit States doing well; no cocaine/heroin use for 1 month now Reviewed the clinic goals, expectations and policies Patient has medications in a locked box and has VNA dispensing medications at home Opportunities provided to address medical/medication/BH concerns Review of Systems Psychiatric/Behavioral: Negative for behavioral problems and dysphoric mood. The patient is not nervous/anxious. Physical Exam Constitutional: Appearance: Normal appearance. Pulmonary: Effort: Pulmonary effort is normal. Neurological: Mental Status: He is alert. Psychiatric: Mood and Affect: Mood normal. Behavior: Behavior normal. Augustin was seen today for obat f/u . Diagnoses and all orders for this visit: Opioid type dependence, continuous (CMS/[facility]) (Primary) - POCT MARIA ANTONIA-14 Urine Drug Screen Patient presents for a routine OUD OBAT visit Discussed treatment options for opioid dependence Patient is tolerating current treatment of Buprenorphine/Naloxone SL Dose decreased from 24mg/6mg to 16mg/4mg as patient was only using 16mg/4mg daily Discussed behavioral modification and accessing services Counseling [...] Description 08/21/2024 9:00 AM EST Office Visit [address] [phone] Alexander Jones MD [address] [place] [address] 08/28/2024 9:00 AM EST Office Visit [address] [phone] Alexander Jones MD [address] [place] [address] [phone] 10/29/2024 11:30 AM EDT Office Visit [address] [phone] Vince Lockhart MD [address] [place] [address] [phone] documented as of this encounter Goals Goal Patient Goal Type Associated Problems Recent Progress Patient-Stated? Author Patient will adhere to medication regimen General Osiel Vargas, MayteD Note: Difficulty with taking medications daily due to no desire documented as of this encounter Procedures Procedure Name Priority Date/Time Associated Diagnosis Comments POCT MARIA ANTONIA-14 URINE DRUG SCREEN Routine 07/24/2024 10:56 AM EST Opioid type dependence, continuous ([facility]) documented in this encounter Results * POCT MARIA ANTONIA-14 Urine Drug Screen (07/24/2024 10:56 AM EST) THC Negative Cocaine Screen, Urine [...] obtained by clean catch procedure / Unknown 07/24/2024 10:56 AM EST us Alexander Jones MD POINT OF CARE TEST ENTER/EDIT OR DERABLES Final Result documented in this encounter Visit Diagnoses Diagnosis Opioid type dependence, continuous (CMS/HCC)- Primary Opioid type dependence, continuous documented in this encounter Additional Health Concerns Assessment Noted Time PHQ-9 Depression Total Score: 4 07/02/20 10:58 AM EST documented as of this encounter Care Teams Dredge Captain Relationship Specialty Start Date End Date Vince Lockhart MD [address] [place] [address] PCP - General Internal Medicine 04/10/14 [facility] 12/29/23 documented as of this encounter
--- OUTSIDE RECORDS SUMMARY | 2024-08-18 11:31 | XMS_ITS | Encounter Summary ---
Author Organization [employer] Address 75 [facility] 7t [place] [address] Care Team Providers Care Blast Furnace A[employer]iliaries Supervisor Name Role Phone Vince Lockhart MD Primary Care Provide r Reason for Visit * Reason Comments Med Refill Encounter Details Date Type Department Care Team ([facility] st Contact Info) Description 07/04/2023 Refill [facility] MEDICINE 230 [place], [place] [phone] Monse Gonzalez MD 230 [place], [place] [phone] Social History Tobacco Use Types Packs/Day Years [...] Description 08/21/2024 9:00 AM EST Office Visit [address] [address] Alexander Jones MD [address] [place] [address] 08/28/2024 9:00 AM EST Office Visit [address] [address] Alexander Jones MD [address] [place] [address] 10/29/2024 11:30 AM EDT Office Visit [address] [address] Vince Lockhart MD [address] [place] [address] documented as of this encounter Goals Goal [...] documented as of this encounter Care Teams Bl[employer] Furn[employer]ili[employer] Supervisor Relationship Specialty Start Date End Date Vince Lockhart MD [address] [place] [address] PCP - General Internal Medicine 04/10/14 [facility] 12/29/23 documented as of this encounter
--- OUTSIDE RECORDS SUMMARY | 2024-08-18 11:31 | XMS_ITS | Encounter Summary ---
Author Organization [employer] Address 75 [facility] 7t [place] [address] Care Team Providers Care Cushion Maker Hand Name Role Phone Vince Lockhart MD Primary Care Provide r Osiel Mendez PharmD Unavailable [phone] Reason for Visit * Reason Comments Med Refill Encounter Details Date Type Department Care Team (Late st Contact Info) Description 03/14/2023 Refill [facility]INE 230 [place] [address] Vince Lockhart MD 230 [place], [place] [phone] Pulmonary emphysema, unspecified emphysema type (CMS/HCC) Social History Tobacco Use Types Packs/Day [...] Description 08/21/2024 9:00 AM EST Office Visit [facility] [place] [address] [place] [address] 08/28/2024 9:00 AM EST Office Visit [facility] [place] [address] Alexander Jones MD [facility] [address] 10/29/2024 11:30 AM EDT Office Visit [facility] [place] [address] Vince Lockhart MD [facility] [place] [address] documented as of this encounter Goals Goal Patient Goal Type Associated Problems Recent Progress Patient-Stated? Author Patient will adhere to medication regimen General No Osiel Mendez, Castro Note: Difficulty with taking medications daily due to no desire documented as of this encounter Visit Diagnoses Diagnosis Pulmonary emphysema, unspecified emphysema type (CMS/HCC) documented in this encounter Additional Health Concerns Assessment Noted Time PHQ-9 Depression Total Score: 8 12/17/19 23 1:48 PM EDT documented as of this encounter Care Teams Cushion Maker Hand Relationship Specialty Start Date End Date Vince Lockhart [place] [address] PCP - General Internal Medicine 04/10/14 Osiel Mendez PharmD [facility] [place] [address] Pharmacist Internal Medicine 12/19/22 06/11/23 [facility] 12/29/23 documented as of this encounter
--- OUTSIDE RECORDS SUMMARY | 2024-08-18 11:31 | XMS_ITS | Encounter Summary ---
Author Organization [employer] Address 75 [facility] 7t [place] [address] Care Team Providers Care Fruit Grading Supervisor Name Role Phone Vince Lockhart MD Primary Care Provide r Reason for Visit * Reason Onset Date Comments Med Refill 07/13/2023 Encounter Details Date Type Department Care Team ([facility] st Contact Info) Description 07/13/2023 Telephone [facility] MEDICINE 230 [place], [place] [phone] Vince Lockhart MD 230 [place], [place] [phone] Med Refill Social History Tobacco Use Types [...] encounter Miscellaneous Notes * Telephone Encounter - Sheila Garvin LPN - 07/13/2023 12:46 PM EST PHARMACY ORDER ENTRY TECHNICIAN checked Ambien last filled on 06/30/23 Qty: 15 by Jian Chisholm with 1 refill remaining. * Telephone Encounter - Som Alford - 07/13/2023 12:25 PM EST TC from pt requesting medication refill. Medications needing refill: zolpidem (Ambien) 5 MG tablet documented in this encounter Plan of Treatment Upcoming Encounters Date Type Department Care Team (Late st Contact Info) Description 08/21/2024 9:00 AM EST Office Visit [facility] MEDICINE [address] [place] [address] Alexander Jones MD 230 [place] [address] 08/28/2024 9:00 AM EST Office Visit [facility] MEDICINE [address] [place] [address] [phone] Alexander Jones MD [facility] [place] [address] 10/29/2024 11:30 AM EDT Office Visit [facility] MEDICINE [address] [place], [place] [address] [place], [place] [phone] Vince Lockhart MD [address] [place] [address] [phone] documented as of this encounter Goals Goal [...] as of this encounter Care Teams Fruit Grading Supervisor Relationship Specialty Start Date End Date Vince Lockhart MD [address] [place] [address] PCP - General Internal Medicine 04/10/14 [facility] 12/29/23 documented as of this encounter
--- OUTSIDE RECORDS SUMMARY | 2024-08-18 11:32 | XMS_ITS | Encounter Summary ---
Author Organization [employer] Address 75 [facility] 7t [place] [address] Care Team Providers Care Thread Drawer Name Role Phone Vince Lockhart MD Primary Care Provide r Reason for Visit * Reason Comments OBAT Encounter Details Date Type Department Care Team (Latest Contact Info) Description 07/31/2024 1:30 PM EST Clinical Support [facility] MEDICINE [address] [place] [address] Georgina Ann, GUERO Uncomplicated opioid dependence (CMS/HCC) (Primary Dx) Social [...] as of this encounter Progress Notes * Georgina Ann RN - 07/31/2024 1:30 PM EST Patient with heroin and cocaine use disorder Inconsistent follow-ups for his OBAT MAT, complicated by his medical issues Immune to Hep A/B History of Hepatitic C s/p treatment in 2017 (HCV RNA VL undetectable in 08/2023) Declined PrEP Incarceration history x2; lifetime arrests x6 ; 3 adult children (1 killed; [place] [facility] [place] [place]) Last LFT (04/03/2024) LAST GBAT VISIT 07/24/2024 UTOX: POS BUP ONLY NEG [...] and Affect: Mood normal. Behavior: Behavior normal. There are no diagnoses linked to this encounter. Patient presents for a routine OUD OBAT [...] no cocaine/heroin use for 1 month now THIS GBOT VISIT: 2024 UTOX: Bup Augustin again missed GBOT, [...] will start going to Monday clinic with [facility]. He asked for an increased dose. Hisdose [...] receive his agreed upon dose next week. PLAN: Discuss whether or not to increase the dose when he returns next week. This information has been disclosed to you [...] Description 08/21/2024 9:00 AM EST Office Visit [address] [address] Alexander Jones MD [address] [place] [address] [phone] 08/28/2024 9:00 AM EST Office Visit [address] [phone] Alexander Jones MD [address] [place] [address] [phone] 10/29/2024 11:30 AM EDT Office Visit [address] [address] Vince Lockhart MD [address] [place] [address] [phone] documented as of this encounter Goals Goal Patient Goal Type Associated Problems Recent Progress Patient-Stated? Author Patient will adhere to medication regimen Osiel Conley, MayteD Note: Difficulty with taking medications daily due to no desire documented as of this encounter Procedures Procedure Name Priority Date/Time Associated Diagnosis Comments POCT MARIA ANTONIA-14 URINE DRUG SCREEN Routine 07/31/2024 1:40 PM EST Uncomplicated opioid dependence (CMS/[facility]) documented in this encounter Results * POCT MARIA ANTONIA-14 Urine Drug Screen (07/31/2024 1:40 PM EST) THC Negative Cocaine Screen, Urine Negative [...] obtained by clean catch procedure / Unknown 07/31/2024 1:40 PM EST Alexander Jones MD POINT OF CARE TEST ENTER/EDIT OR DERABLES Final Result documented in this encounter Visit Diagnoses Diagnosis Uncomplicated opioid dependence (CMS/HCC)- Primary documented in this encounter Additional Health Concerns Assessment Noted Time PHQ-9 Depression Total Score: 4 07/02/20 24 10:58 AM EST documented as of this encounter Care Teams Thread Drawer Relationship Specialty Start Date End Date Vince Lockhart MD [address] [place] [address] PCP - General Internal Medicine 04/10/14 [facility] 12/29/23 documented as of this encounter
--- OUTSIDE RECORDS SUMMARY | 2024-08-18 11:32 | XMS_ITS | Encounter Summary ---
Author Organization [employer] Address 75 [facility] 7t [place] [address] Care Team Providers Care Galvanizing Pot Runner Name Role Phone Vince Lockhart MD Primary Care Provide r Reason for Visit * Reason Comments Med Refill Encounter Details Date Type Department Care Team ([facility] st Contact Info) Description 07/24/2024 Refill [facility] MEDICINE 230 [place], [place] [phone] Vince Lockhart MD 230 [place], [place] [phone] Cocaine abuse ([facility]) Social History Tobacco Use Types Packs/Day Years [...] Description 08/21/2024 9:00 AM EST Office Visit [address] [address] Alexander Jones MD [address] [place] [address] 08/28/2024 9:00 AM EST Office Visit [address] [address] Alexander Jones MD [address] [place] [address] 10/29/2024 11:30 AM EDT Office Visit [address] [address] Vince Lockhart MD [address] [place] [address] documented as of this encounter Goals Goal Patient Goal Type Associated Problems Recent Progress Patient-Stated? Author Patient will adhere to medication regimen General No Mendez, Jerril, PharmD Note: Difficulty with taking medications daily due to no desire documented as of this encounter Visit Diagnoses Diagnosis Cocaine abuse (CMS/[facility]) Nondependent cocaine abuse, unspecified documented in this encounter Additional Health Concerns Assessment Noted Time PHQ-9 Depression Total Score: 4 07/02/20 24 10:58 AM EST documented as of this encounter Care Teams Galvanizing Pot Runner Relationship Specialty Start Date End Date Vince Lockhart MD [address] [place] [address] PCP - General Internal Medicine 04/10/14 [facility] 12/29/23 documented as of this encounter
--- OUTSIDE RECORDS SUMMARY | 2024-08-18 11:32 | XMS_ITS | Encounter Summary ---
Author Organization [employer] Address 75 [facility] 7t [place] [address] Care Team Providers Care Calendar Control Clerk Blood Bank Name Role Phone Vince Lockhart MD Primary Care Provide r Reason for Visit * Reason Onset Date Comments Med Refill 07/26/2024 Encounter Details Date Type Department Care Team (Late st Contact Info) Description 07/26/2024 Refill [facility] MEDICINE 230 [place] [address] Georgina Ann, GUERO Uncomplicated opioid dependence (CMS/HCC) [...] 08/21/2024 9:00 AM EST Office Visit [address] [address] Alexander Jones MD [address] [place] [address] 08/28/2024 9:00 AM EST Office Visit [address] [address] Alexander Jones MD [address] [place] [address] 10/29/2024 11:30 AM EDT Office Visit [address] [address] Vince Lockhart MD [address] [place] [address] documented as of this encounter Goals Goal [...] documented as of this encounter Care Teams Calendar Control Clerk Blood Bank Relationship Specialty Start Date End Date Vince Lockhart MD 230 [place] [address] PCP - General Internal Medicine 04/10/14 [facility] 12/29/23 documented as of this encounter
--- OUTSIDE RECORDS SUMMARY | 2024-08-18 11:32 | XMS_ITS | Encounter Summary ---
Author Organization [employer] Address [address] [facility] [address] [place] [address] Care Team Providers Care House Repairer Name Role Phone Vince Lockhart MD Primary Care Provide r Encounter Details Date Type Department Care Team (Late st Contact Info) Description 07/31/2024 9:15 AM EST Office Visit [facility] [address] [place] [address] Medhat, Carla, OD [address] [place] [address] Presbyopia (Primary Dx) Social History Tobacco Use Types [...] as of this encounter Progress Notes * Carla Meléndez OD - 07/31/2024 9:15 AM EST MH glasses were dispensed. documented in this encounter Plan of Treatment Upcoming Encounters Date Type Department Care Team (Late st Contact Info) Description 08/21/2024 9:00 AM EST Office Visit [address] [address] Alexander Jones MD [address] [place] [address] 08/28/2024 9:00 AM EST Office Visit [address] [address] Alexander Jones MD [address] [place] [address] 10/29/2024 11:30 AM EDT Office Visit [address] [address] Vince Lockhart MD [address] [place] [address] documented as of this encounter Goals Goal Patient Goal Type Associated Problems Recent Progress Patient-Stated? Author Patient will adhere to medication regimen Osiel Conley, PharmD Note: Difficulty with taking medications daily due to no desire documented as of this encounter Visit Diagnoses Diagnosis Presbyopia- Primary documented in this encounter Additional Health Concerns Assessment Noted Time PHQ-9 Depression Total Score: 4 07/02/20 24 10:58 AM EST documented as of this encounter Care Teams House Repairer Relationship Specialty Start Date End Date Vince Lockhart MD [address] [place] [address] PCP - General Internal Medicine 04/10/14 [facility] 12/29/23 documented as of this encounter
--- OUTSIDE RECORDS SUMMARY | 2024-08-18 11:32 | XMS_ITS | Encounter Summary ---
Author Organization [employer] Address [address] [facility] 7t [place] [address] Care Team Providers Care Wet Wheeler Name Role Phone Vince Lockhart MD Primary Care Provide r Reason for Visit * Reason Onset Date Comments Med Refill 07/31/2024 Encounter Details Date Type Department Care Team (Late st Contact Info) Description 07/31/2024 Refill [facility] MEDICINE [address] [place] [address] Georgina Ann, GUERO Uncomplicated opioid dependence (CMS/HCC) [...] Description 08/21/2024 9:00 AM EST Office Visit [address] [address] Alexander Jones MD [address] [place] [address] 08/28/2024 9:00 AM EST Office Visit [address] [address] Alexander Jones MD [address] [place] [address] 10/29/2024 11:30 AM EDT Office Visit [address] [address] Vince Lockhart MD [address] [place] [address] documented as of this encounter Goals Goal [...] documented as of this encounter Care Teams Wet Wheeler Relationship Specialty Start Date End Date Vince Lockhart MD [address] [place] [address] PCP - General Internal Medicine 04/10/14 [facility] 12/29/23 documented as of this encounter
--- OUTSIDE RECORDS SUMMARY | 2024-08-18 11:32 | XMS_ITS | Encounter Summary ---
Author Organization [employer] Address [address] [facility] [address] [place] [address] Care Team Providers Care Ladderman Name Role Phone Vince Lockhart MD Primary Care Provide r Reason for Visit * Reason Onset Date Comments Med Refill 07/30/2024 Encounter Details Date Type Department Care Team (Late st Contact Info) Description 07/30/2024 Refill [facility] [address] [place] [address] Vince Lockhart MD [address] [place], [place] [phone] Hospital discharge follow-up Social History Tobacco Use [...] AM EST Office Visit [facility] [address] [place] [address] Alexander Jones MD [address] [place] [phone] 08/28/2024 9:00 AM EST Office Visit [address] [address] Alexander Jones MD [address] [place] [address] 10/29/2024 11:30 AM EDT Office Visit [address] [address] Vince Lockhart MD [address] [place] [address] documented as of this encounter Goals Goal [...] documented as of this encounter Care Teams Ladderman Relationship Specialty Start Date End Date Vince Lockhart MD [address] [place] [phone] PCP - General Internal Medicine 04/10/14 [facility] 12/29/23 documented as of this encounter
--- OUTSIDE RECORDS SUMMARY | 2024-08-18 11:32 | XMS_ITS | Encounter Summary ---
Author Organization [employer] Address [address] [facility] [address] [place] [address] Care Team Providers Care Clinical Trials Systems Administrator Name Role Phone Vince Lockhart MD Primary Care Provide r Encounter Details Date Type Department Care Team ([facility] st Contact Info) Description 07/24/2024 Telephone [facility] MEDICINE [address] [place], [place] [phone] Vince Lockhart MD [address] [place], [place] [phone] Social History Tobacco Use Types Packs/Day Years [...] encounter Miscellaneous Notes * Telephone Encounter - Shanna Rene - 07/24/2024 9:47 AM EST Tc from [place] with [facility] requesting PT1 Home Address verified: Y/N: Yes Provider name or facility name: [facility] Facility Address: [address] [place] [address] Escort needed: Y/N: No Do you have a wheelchair: Y/N: No If yes- Manual or electric: N/A Visits: once a week documented in this encounter Plan of Treatment Upcoming Encounters Date Type Department Care Team (Late st Contact Info) Description 08/21/2024 9:00 AM EST Office Visit [facility] MEDICINE [address] [place] [address] Alexander Jones MD [address] [place] [address] 08/28/2024 9:00 AM EST Office Visit [address] [address] Alexander Jones MD [address] [place] [address] 10/29/2024 11:30 AM EDT Office Visit [facility] MEDICINE [address] [place], [place] [phone] Vince Lockhart MD [address] [place] [phone] documented as of this encounter Goals Goal [...] documented as of this encounter Care Teams Clinical Trials Systems Administrator Relationship Specialty Start Date End Date Vince Lockhart MD [address] [place] [phone] PCP - General Internal Medicine 04/10/14 [facility] 12/29/23 documented as of this encounter
--- OUTSIDE RECORDS SUMMARY | 2024-08-18 11:32 | XMS_ITS | Clinical Summary ---
Author Organization [employer] Address [address] [place] [address] Care Team Providers Care Employment Clerk Name Role Phone Vince Lockhart MD Primary Care Provide r Allergies Active Allergy Reactions Criticality Noted Date Comments Ibuprofen 01/30/2012 Other reaction(s): Stomach Pain Penicillins Itching,Rash Low 01/30/2012 Medications * This document contains information received from the source organization and may not represent a complete record from that organization. Nebulizers (Compressor/Nebul izer) misc use 1 by Inhalation route as needed 022 Active Nutritional Supplements (Ensure Nutrition Shake) liquid take 1 can by Oral route 2 times every day 022 Active Blood Pressure Monitoring (Omron 3 Series BP Monitor) device USE DIRECTED EVERY DAY 1 each 023 Active hydrOXYzine HCl (Atarax) 50 MG tabletIndications :Anxiety state Take 1 tablet (50 mg) by mouth every 6 (six) hours if needed for itching. 120 tablet 023 Active Additional Information Patient taking differently:50 mg OralEvery 12 hours PRN, itching, Reported on 07/12/2023 Symbicort 160-4.5 MCG/ACT inhaler INHALE 2 PUFFS BY MOUTH 2 TIMES DAILY FOR 30 DAYS 023 Active Spiriva Respimat 2.5 MCG/ACT inhaler Inhale 2 puffs in the morning. 023 Active Stiolto Respimat 2.5-2.5 MCG/ACT aerosol solution inhaler INHALE 2 PUFFS BY MOUTH ONCE DAILY Active topiramate 50 MG tablet Take 1 tablet by mouth at bedtime. Active QUEtiapine (SEROquel) 50 MG tablet TAKE 1 TABLET BY MOUTH FOUR TIMES DAILY NEEDED FOR ANXIETY OR FOR RESTLESSNESS Active venlafaxine XR (Effexor XR) 150 MG 24 hr capsuleIndication s:Depressive disorder,Bipolar affective disorder, currently depressed, moderate (CMS/HCC) Take 1 capsule (150 mg) by mouth in the morning. Do not crush or chew. 30 capsule 11 024 2024 Active QUEtiapine (SEROquel) 100 MG tablet TAKE 1 TABLET BY MOUTH TWICE DAILY IN THE MORNING AND IN THE EVENING (AT 9 IN THE MORNING AND AT 6 IN THE EVENING) 60 tablet 3 024 Active traZODone (Desyrel) 50 MG tabletIndications :Primary insomnia TAKE 1 TABLET BY MOUTH EVERY DAY AT BEDTIME NEEDED FOR SLEEP 30 tablet 1 024 Active risperiDONE (RisperDAL) 3 MG tabletIndications :Mixed Bipolar Affective Disorder TAKE 1 TABLET (3 MG) BY MOUTH AT BEDTIME. 30 tablet 024 Active clonazePAM (KlonoPIN) 0.5 MG tabletIndications :Depressive disorder TAKE 1 TABLET (0.5 MG) BY MOUTH IF NEEDED IN THE MORNING AND AT BEDTIME FOR ANXIETY. 60 tablet 024 Active zolpidem (Ambien) 5 MG tabletIndications :Difficulty sleeping TAKE 1 TABLET (5 MG) BY MOUTH IF NEEDED AT BEDTIME FOR SLEEP. 30 tablet 024 2024 Active mirtazapine (Remeron) 30 MG tabletIndications :Depressive disorder Take 1 tablet (30 mg) by mouth at bedtime. 30 tablet 3 024 Active tamsulosin (Flomax) 0.4 MG 24 hr capsuleIndication s:Benign prostatic hyperplasia with nocturia Take 2 capsules (0.8 mg) by mouth Once per day. 180 capsule 3 024 Active Acetaminophen Extra Strength 500 MG tabletIndications :Acute midline low back pain without sciatica TAKE 1 TABLET (500 MG) ORALLY EVERY 6 HOURS NEEDED FOR FEVER OR PAIN 60 tablet 1 024 Active ipratropium-albut tawanda (Duo-Neb) 0.5-2.5 mg/3 mL nebulizer solutionIndicatio ns:Pulmonary emphysema, unspecified emphysema type (CMS/HCC) INHALE 1 AMPULE USING A NEBULIZER THREE TIMES DAILY IN THE MORNING, AT NOON, AND AT BEDTIME NEEDED FOR WHEEZING 180 mL 1 Active atorvastatin (Lipitor) 40 MG tabletIndications :Mixed hyperlipidemia TAKE 1 TABLET BY MOUTH AT BEDTIME 90 tablet 1 Active meloxicam (Mobic) 15 MG tabletIndications :Chronic midline low back pain without sciatica TAKE 1 TABLET BY MOUTH EVERY MORNING 30 tablet 3 024 Active senna-docusate sodium (Senokot-S) 8.6-50 MG tabletIndications :Constipation, unspecified constipation type TAKE 1 TABLET BY MOUTH IN THE MORNING AND AT BEDTIME IF NEEDED FOR CONSTIPATION 60 tablet 6 024 Active risperiDONE (RisperDAL) 1 MG tabletIndications :Mixed Bipolar Affective Disorder TAKE 1 TABLET (1 MG) BY MOUTH IN THE MORNING. 30 tablet 024 Active clonazePAM (KlonoPIN) 0.5 MG tabletIndications :Anxiety state Take 1 tablet (0.5 mg) by mouth 1 (one) time for 1 dose. 1 tablet Active risperiDONE (RisperDAL) 1 MG tabletIndications :Major Depressive Disorder Take 1 tab once 1 tablet Active Buprenorphine HCl-Naloxone HCl (Suboxone) 8-2 MG SL filmIndications:S ubstance-related disorder (CMS/HCC) Place 1 Film under the tongue Once per day for 1 day. 1 Film Active LORazepam (Ativan) 0.5 MG tabletIndications :Anxiety state Take 1 tablet (0.5 mg) by mouth 1 (one) time for 1 dose. 1 tablet Active Viagra 100 MG tablet TAKE 1 TABLET 1 HOUR BEFORE SEXUAL RELATIONS ONCE DAILY NEEDED. 8 tablet 5 Active ondansetron (Zofran) 4 MG tabletIndications :Nausea and vomiting, unspecified vomiting type Take 1 tablet (4 mg) by mouth every 8 (eight) hours if needed for nausea or vomiting. 10 tablet Active ferrous sulfate 325 (65 Fe) MG tablet Take 1 tablet (325 mg) by mouth at bedtime. 30 tablet 3 Active QUEtiapine (SEROquel) 400 MG tablet TAKE 1 TABLET (400 MG) BY MOUTH AT BEDTIME. 30 tablet 2 Active Eliquis 5 MG tablet Active escitalopram (Lexapro) 10 MG tablet Active baclofen (Lioresal) 10 MG tabletIndications :Cocaine abuse (CMS/HCC) TAKE 1 TABLET (10 MG) BY MOUTH 3 TIMES DAILY NEEDED 90 tablet 025 Active pantoprazole (ProtoNix) 40 MG EC tabletIndications :Hospital discharge follow-up TAKE 1 TABLET BY MOUTH EVERY MORNING. DO NOT CRUSH, CHEW OR SPLIT. 90 tablet 1 025 Active albuterol (Ventolin HFA) 108 (90 Base) MCG/ACT inhaler INHALE 2 PUFFS BY MOUTH EVERY 4 TO 6 HOURS NEEDED 18 g 025 Active buprenorphine-nal oxone (Suboxone) 4-1 MG per sublingual filmIndications:U ncomplicated opioid dependence (CMS/HCC) Place 1 Film under the tongue Once per day for 7 days. This is in addition to his 8/2mg BID regimen. Do not start before August 21, 2024. 7 Film 025 2024 Active Buprenorphine HCl-Naloxone HCl (Suboxone) 8-2 MG SL filmIndications:U ncomplicated opioid dependence (CMS/HCC) Place 1 Film under the tongue 2 times daily for 7 days. Suboxone 4mg/1mg SL daily added to the 8/2mg BID regimen. Do not start before August 21, 2024. 14 Film 025 2024 Active pantoprazole (ProtoNix) 40 MG EC tabletIndications :Hospital discharge follow-up TAKE 1 TABLET BY MOUTH EVERY MORNING. DO NOT CRUSH, CHEW OR SPLIT. 90 tablet 1 024 2024 Discontinued(R eorder (will not trigger notification to Pharmacy)) baclofen (Lioresal) 10 MG tabletIndications :Cocaine abuse (CMS/HCC) TAKE 1 TABLET (10 MG) BY MOUTH 3 TIMES DAILY. 90 tablet 024 2024 Discontinued cyclobenzaprine (Flexeril) 5 MG tablet 024 2024 Discontinued(T herapy completed) albuterol (Ventolin HFA) 108 (90 Base) MCG/ACT inhaler INHALE 2 PUFFS BY MOUTH EVERY 4 TO 6 HOURS NEEDED 18 g 024 2024 Discontinued Buprenorphine HCl-Naloxone HCl (Suboxone) 8-2 MG SL filmIndications:U ncomplicated opioid dependence (CMS/HCC) Place 1 Film under the tongue 2 times daily for 7 days. Do not start before July 24, 2024. 14 Film 025 2024 Discontinued(R eorder (will not trigger notification to Pharmacy)) Buprenorphine HCl-Naloxone HCl (Suboxone) 8-2 MG SL filmIndications:U ncomplicated opioid dependence (CMS/HCC) Place 1 Film under the tongue 2 times daily for 7 days. Do not start before July 31, 2024. 14 Film 025 2024 Discontinued(R eorder (will not trigger notification to Pharmacy)) Buprenorphine HCl-Naloxone HCl (Suboxone) 8-2 MG SL filmIndications:U ncomplicated opioid dependence (CMS/HCC) Place 1 Film under the tongue 2 times daily for 7 days. Suboxone 4mg/1mg SL daily added to the 8/2mg BID regimen. Do not start before August 07, 2024. 14 Film 025 2024 Discontinued(R eorder (will not trigger notification to Pharmacy)) buprenorphine-nal oxone (Suboxone) 4-1 MG per sublingual filmIndications:U ncomplicated opioid dependence (CMS/HCC) Place 1 Film under the tongue Once per day for 7 days. This is in addition to his 8/2mg BID regimen. 7 Film 025 2024 Discontinued(R eorder (will not trigger notification to Pharmacy)) buprenorphine-nal oxone (Suboxone) 4-1 MG per sublingual filmIndications:U ncomplicated opioid dependence (CMS/HCC) Place 1 Film under the tongue Once per day for 7 days. This is in addition to his 8/2mg BID regimen. Do not start before August 14, 2024. 7 Film 025 2024 Discontinued(R eorder (will not trigger notification to Pharmacy)) Buprenorphine HCl-Naloxone HCl (Suboxone) 8-2 MG SL filmIndications:U ncomplicated opioid dependence (CMS/HCC) Place 1 Film under the tongue 2 times daily for 7 days. Suboxone 4mg/1mg SL daily added to the 8/2mg BID regimen. Do not start before August 14, 2024. 14 Film 025 2024 Discontinued(R eorder (will not trigger notification to Pharmacy)) Active Problems Patient Care Coordination No te Formatting of this note migh t be different from the original. C3/CM Debra Denise RN, TC #3 Unsuccessful call/Program Graduation Problem Noted Date Diagnosed Date Sleep disturbances 07/02/2024 Assessment & Plan (07/02/2024 10:50 AM EST): Sleep study 11/24/2023 negative for sleep Apnea Elevated random blood glucose level 07/02/2024 Assessment & Plan (07/02/2024 10:51 AM EST): Blood glucose elevated 176 on 03/24/2024 Plan: repeat FBG and Hgb A1c Acute pulmonary embolism without acute cor pulmo nale 07/02/2024 Assessment & Plan (07/02/2024 12:42 PM EST): Seen in the ER for this 03/24/202403/2024 CT/CT angio chest PE protocol IMPRESSION: 1. Small segmental right upper lobe pulmonary embolus. 2. Masslike area of consolidation right middle lobe. Follow-up is recommended after treatment. 3. Marked emphysema. VTE: positive. Under the care of Dr Gerber Metal Flooring Installer kathleen greene 04/16/2024 who recommended Apixaban 5 mg po BID x 3 months and follow up with him. Pt reports compliance with it. Repeat CT 06/24/2024 showed: IMPRESSION: 1. No central or segmental pulmonary emboli. 2. Mild centrilobular emphysema. VTE: negative. Pneumonia due to infectious organism 01/09/2024 Assessment & Plan (01/09/2024 10:18 AM EDT): Pt admitted to [facility] for Acute hypoxic respiratory failure and COPD with acute exacerbation 11/28-12/14 Patient was rx with Antibiotics, steroids scheduled DuoNebs He was kept on Breo, Spiriva and was seen by pulmonary rehab CT chest was done 11/29/2023 which showed near resolution of consolidative mass in the right lower lobe, although an incidental 0.7 x 0.4 cm solid nodule slightly lower than the cavitary lesion, was seen. Surveillance needed possibly repeat CT in 6 months. They recommended a 4-6 weeks f/u with chest x-ray for resolution We contacted his Metal Flooring Installer Dr. Gerber. He was given an appointment for this Monday at 10:15 AM I contacted his [facility] who will be arranging transportation for him. Obtain Plain x-ray of chest for f/u Pneumonia. Acute pain of right shoulder 01/09/2024 Assessment & Plan (01/09/2024 10:15 AM EDT): Seen at our [facility] 01/04/2024 Plain films showed: No acute finding. Old healed right midclavicular fracture. Plan: Ortho referral Right lower lobe lung mass 11/14/2023 Assessment & Plan (01/09/2024 10:27 AM EDT): Patient was seen in the ER 09/29/2023 As part of his work up he had a Chest x-ray that showed: New 1 x 1.5 cm nodular opacity at the right lung base, question representing bronchial wall thickening or bronchial soft tissue opacification. I ordered a CT of chest given new findings and weight loss CT done 11/09/2023 showed: There are moderate centrilobular emphysematous changes. A 3.1 cm mass is again seen at the central right base, with spiculations and central necrotic foci. This is highly suspicious for neoplasm. Recommend further evaluation, possibly to include PET/CT or biopsy. Pt had a Chest x-ray and a CTA 08/08/2023 in the ER. Chest x-ray then showed clear lungs as per radiologist. I had ordered a PET CT , Pt referred back to [facility]mon[facility] for consideration of lung biopsy he is a patient of Dr. Gerber. While in the Hospital Pt had a repeat Chest CT 11/29/2023 ( [facility] ) that showed: IMPRESSION: 1. Near complete resolution of consolidative right lower lobe mass leaving behind a small slightly thick-walled cavitary lesion.Recommend continued CT surveillance in 6 months to document resolution and reestablish baseline. 2. Moderate emphysema. 3. There is a 0.7 x 0.4 cm solid nodule in the lateral segment of the right lower lobe is not seen on either of the 2 prior studies available for review, suggesting that it is a new pulmonary nodule. Because there is emphysema, the patient is clearly at increased risk for malignancy. This lesion should be reassessed at the time of the follow-up CT scan in 6 months per Guidelines for Management of Incidental Pulmonary Nodules Detected on CT Images Pt was scheduled for a lung biopsy 12/26/2023 but this procedure was aborted . CT showed that the previously described mass was likely represented as a resolving postobstructive pneumonia as there were no mass like features and only a mild cavitary residual area with minimal surrounding inflammatory findings with few tree-in-bud opacities and mild interstitial thickening. Based on that the biopsy was aborted. Pt has appointment with Metal Flooring Installer Dr. Gerber this Monday at 10:15 AM Assessment & Plan (11/14/2023 3:45 PM EDT): Patient was seen in the ER 09/29/2023 with c/o fever and chest pain As part of his work up he had a Chest x-ray that showed: New 1 x 1.5 cm nodular opacity at the right lung base, question representing bronchial wall thickening or bronchial soft tissue opacification. Follow-up chest x-ray following treatment recommended. If radiographic abnormality fails to resolve, chest CT scan would be recommended. I ordered a CT of chest given new findings and weight loss CT done 11/09/2023 showed: There are moderate centrilobular emphysematous changes. A 3.1 cm mass is again seen at the central right base, with spiculations and central necrotic foci. This is highly suspicious for neoplasm. Recommend further evaluation, possibly to include PET/CT or biopsy. Of note pt had a Chest x-ray and a CTA 08/08/2023 in the ER. Chest x-ray then showed clear lungs as per radiologist. Plan: PET CT Ordered, Pt referred back to [facility]mon[facility] for consideration of lung biopsy he is a patient of Dr. Gerber Pt to follow up with me after he seees Dr. Gerber and after PET CT Routine physical examination 10/03/2023 Assessment & Plan (07/02/2024 11:01 AM EST): Patient here for a routine physical examination, has no particular complaints or concerns Exam today within normal limits Assessment & Plan (10/03/2023 8:53 AM EDT): Patient here for a routine physical examination, has no particular complaints or concerns Exam today within normal limits Bipolar affective disorder, currently depressed, moderate 07/04/2023 Assessment & Plan (07/02/2024 12:45 PM EST): Pt here for a follow up His most recent medication regimen as per his last psychiatric Hospitalization is: Mirtazapine 45 mg po at bedtime Effexor XR 150 mg po daily Risperdal 1 mg po in AM and 3 mg at PM Hydroxyzine 50 mg po q 12 hrs PRN for anxiety Klonopin 0.5 mg po BID PRN anxiety Seroquel 50 mg po BID and 400 mg at bedtime Topamax 50 mg po at bedtime Zolpidem 5 mg po at bedtime prn insomnia Pt tells me has a new psychiatrist and a new psychotherapist Assessment & Plan (01/09/2024 10:31 AM EDT): Pt here for a follow up His most recent medication regimen as per his last psychiatric Hospitalization is: Mirtazapine 45 mg po at bedtime Effexor XR 150 mg po daily Risperdal 1 mg po in AM and 3 mg at PM Hydroxyzine 50 mg po q 12 hrs PRN for anxiety Klonopin 0.5 mg po BID PRN anxiety Seroquel 50 mg po BID and 400 mg at bedtime Topamax 50 mg po at bedtime Zolpidem 5 mg po at bedtime prn insomnia Pt tells me has an appointment for Behavioral health Assessment & Plan (09/21/2023 1:12 PM EST): Pt here for a follow up His most recent medication regimen as per his last psychiatric Hospitalization is: Mirtazapine 30 mg po at bedtime Effexor XR 150 mg po daily Risperdal 1 mg po in AM and 3 mg at PM Hydroxyzine 50 mg po q 8 hrs PRN for anxiety Klonopin 0.5 mg po BID PRN anxiety Seroquel 100 mg po BID and 400 mg at bedtime Topamax 50 mg po at bedtime Trazodone 50 mg po at bedtime prn insomnia Pt tells me has an appointment with [facility] for Behavioral health 09/26/2023 I have agreed to continue his medication until then Assessment & Plan (08/08/2023 10:36 AM EST): Pt here for a follow up His most recent medication regimen as per his last psychiatric Hospitalization is: Mirtazapine 30 mg po at bedtime Effexor XR 150 mg po daily Risperdal 1 mg po in AM and 3 mg at PM Hydroxyzine 50 mg po q 8 hrs PRN for anxiety Klonopin 0.5 mg po BID PRN anxiety Seroquel 100 mg po BID and 400 mg at bedtime Topamax 50 mg po at bedtime Trazodone 50 mg po at bedtime prn insomnia Pt tells me has an appointment with [facility] for Behavioral health next week, I have asked our Care management department to get involved since I am concerned pt is unable to navigate the system on his own. Assessment & Plan (07/04/2023 4:23 PM EST): Pt here after a recent Hospital admission, According to his discharge summary he has a hx of Bipolar d/o, polysubstance use, with hx of multiple inpatient psychiatric hospitalizations, who was seen by crisis d/t suicidal ideation secondary to increased auditory hallucinations that are telling him to harm himself. While in the [facility] he was found to be depressed with AH on admission. His home medications were restarted. Over the course of the admission his Mirtazapine was increased to 30 mg at bedtime, His Effexor ER was increased to 150 mg and his Risperdal was increased to 4 mg total with the bulk of it at bedtime. His most recent medication regimen as per his last psychiatric Hospitalization is: Mirtazapine 30 mg po at bedtime Effexor XR 150 mg po daily Risperdal 1 mg po in AM and 3 mg at PM Hydroxyzine 50 mg po q 8 hrs PRN for anxiety Klonopin 0.5 mg po BID PRN anxiety Seroquel 100 mg po BID and 400 mg at bedtime Topamax 50 mg po at bedtime Trazodone 50 mg po at bedtime prn insomnia Pt apparently has an appointment with [facility] for Behavioral health on Monday, I have asked our Care management department to get involved since I am concerned pt is unable to navigate the system on his own. Chronic low back pain without sciatica Assessment & Plan (10/03/2023 9:51 AM EDT): Pt with persistent low back pain described as moderate to severe, no radiation, mainly located on his lower back. On exam there is evidence of muscle spasm. Plain films of LS spine. Showed: Multilevel lumbar spondylosis with progression of advanced degenerative changes at L5-S1 and loss of disc space height. Pt was referred to [facility] for evaluation might benefit from steroid injections if appropriate. He no showed x 3 and ws discharged from their practice Pt does not have a true allergy to NSAIDS. He only gets stomach upset when taking things like Ibuprofen but NO rash, No hives, No diff breathing. Continue Meloxicam 15 mg po daily that is better tolerated for his stomach. He is not a candidate for Narcotics. Will obtain MRI lumbar spine Will refer to [facility] Assessment & Plan (08/08/2023 10:32 AM EST): Pt with persistent low back pain described as moderate to severe, no radiation, mainly located on his lower back. On exam there is evidence of muscle spasm. Pt last time used cocaine 6 days ago per his report Plan: Will initiate work up to rule other causes of back pain such as DDD. Plain films of LS spine. Showed: Multilevel lumbar spondylosis with progression of advanced degenerative changes at L5-S1 and loss of disc space height. Pt was referred to [facility] for evaluation might benefit from steroid injections if appropriate. He no showed x 3 and ws discharged from their practice Pt does not have a true allergy to NSAIDS. He only gets stomach upset when taking things like Ibuprofen but NO rash, No hives, No diff breathing. Continue Meloxicam 15 mg po daily that is better tolerated for his stomach. Given hi active Cocaine use he is not a candidate for Narcotics. I have given him an appointment with me in 4 weeks, will re evaluate then Assessment & Plan (2023 12:01 PM EDT): Pt here for a follow up Since recently with c/o new onset of low back pain described as moderate to severe, no radiation, mainly located on his lower back. On exam there was evidence of muscle spasm. Pt was taking Ultram from the ER for nephrolithiasis Pt admited to using cocaine daily Last visit I initiated work up to rule other causes of back pain such as DDD. I ordered Plain films of LS spine. Done yesterday report pending And placed a referral to [facility] for evaluation since he might benefit from steroid injections if appropriate. Pt walked out of the office with an appointment in his hands Pt does not have a true allergy to NSAIDS. He only gets stomach upset when taking things like Ibuprofen but NO rash, No hives, No diff breathing. Last visit I recommended Meloxicam 15 mg po daily that is better tolerated for his stomach. Given hi active Cocaine use he is not a candidate for Narcotics. I have given him an appointment with me in 4 weeks, will re evaluate then Assessment & Plan (04/18/2023 11:54 AM EDT): Pt with c/o new onset of low back pain described as moderate to severe, no radiation, mainly located on his lower back. On exam there is evidence of muscle spasm. Pt was taking Ultram from the ER for nephrolithiasis Pt admits to using cocaine daily Plan: Will initiate work up to rule other causes of back pain such as DDD. Plain films of LS spine. Referral to [facility] for evaluation might benefit from steroid injections if appropriate. Pt does not have a true allergy to NSAIDS. He only gets stomach upset when taking things like Ibuprofen but NO rash, No hives, No diff breathing. Will give Meloxicam 15 mg po daily that is better tolerated for his stomach. Given hi active Cocaine use he is not a candidate for Narcotics. I have given him an appointment with me in 2 weeks, will re evaluate then Assessment & Plan (03/28/2023 1:25 PM EDT): Pt with c/o new onset of low back pain described as moderate to severe, no radiation, mainly located on his lower back. On exam there is evidence of muscle spasm. Pt was taking Ultram from the ER for nephrolithiasis Pt admits to using cocaine daily Plan: Will initiate work up to rule other causes of back pain such as DDD. Plain films of LS spine. Referral to [facility] for evaluation might benefit from steroid injections if appropriate. Pt does not have a true allergy to NSAIDS. He only gets stomach upset when taking things like Ibuprofen but NO rash, No hives, No diff breathing. Will give Meloxicam 15 mg po daily that is better tolerated for his stomach. Given hi active Cocaine use he is not a candidate for Narcotics. I have given him an appointment with me in 2 weeks, will re evaluate then Weight loss 03/28/2023 Assessment & Plan (07/02/2024 12:44 PM EST): Patient gained 12 lbs since last visit. 128 lb 6.4 oz (58.2 kg) Protein-calorie malnutrition 03/28/2023 Assessment & Plan (11/14/2023 3:23 PM EDT): Pt continues to loose weight Newly diagnosed lung mass Work up in progress with PET CT and Pulmonology follow up for consideration of biopsy Ensure TID Assessment & Plan (04/18/2023 11:55 AM EDT): Pt has lost a significant amount of weight down to 123 lbs from 140 back in september. BMI 21 Plan: Work up in progress Ensure TID Assessment & Plan (03/28/2023 1:29 PM EDT): Pt has lost a significant amount of weight down to 123 lbs from 140 back in september. 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 Assessed symptoms, risks, and social supports with direct questions. Discussed current symptoms intensity and frequency. Emotions were normalized and validated. He was nto tyrese to identify coping mechanisms or protective factors. Provided psychoeducation around Depression and anxiety coping skills. Discussed OP therapy and Medication management he agreed to referral. Provided education around integrated medicine and the options of follow up BE's as needed. Provided contact information should questions or concerns arise. Plan: Augustin will engage in effective coping mechanisms discussed in session. He will keep his appts and will continue to meet with me during his appts. He will also be referred for Ind. Therapy and Medication Management. Crisis number has been provide. 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 PLAN: 1. Follow up with [facility]: Recommended for follow-up: during AUD clinic appt 2. Patient goal is to feel better 3. Behavioral Recommendations a. Ind. Therapy b. Med. Management c. Coping Mechanisms Suicidal ideation 10/03/2022 Assessment & Plan (06/01/2023 9:49 AM EST): Assessment: Patient who was experiencing SI with a plan to hang himself after relapsing. No risk of self-harm, SI, or HI at this time. Patient was seen by a therapist and psychiatrist at [facility]; awaiting follow-up appointments. assistant cross country coach in place through [facility] as well as attending group on Wednesday mornings. Patient has information about WIC and [facility]. 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 Follow up with [facility]: Not recommended for follow-up 2. Patient goal is to remain sober 3. Behavioral Recommendations a. Comply with medication b. Attend groups c. Engage in therapy and psychiatry d. Utilize pitching coach as a support e. May reach out to [facility] for additional support Assessment & Plan (10/03/2022 5:03 PM EDT): Sent to ED/section 12a form filled out. Called ambulance and [facility] ED for soft sign out Benign prostatic hyperplasia with nocturia 10/03 Assessment & Plan (03/07/2023 9:55 AM EDT): Evaluated by urology tamsulosin increased to 0.8 daily while in the Hospital Assessment & Plan (10/03/2022 5:03 PM EDT): Refer to urology No evidence of UTI Anxiety attack 10/03/2022 Assessment & Plan (10/03/2022 5:02 PM EDT): Hx MH illness, currently with SI, plan. Unclear current meds, no discharge summary from [facility] available. Spoke with [facility] crisis supervisor gluing Jaci And suggested to send to ED, Given high risk, I will section 12 him and call Ambulance for transport. Patient aware of POC Primary hypertension 08/01/2022 Overview (12/19/2022): Establishing CD care. BP is not of concern based on BP readings in clinic. Factors that affect BP include cocaine and alcohol use. History of being on flomax but has not had refills since Aug 2022. States dizziness in morning and falling. Last fall over 1 month ago. Current therapy: - Verapamil SR 120mg daily Assessment & Plan (07/02/2024 10:58 AM EST): Patient with Hx of Hypertension Most recent electrolytes, Bun and Creatinine done on: 06/24/2024 were within normal limits. No longer on Verelan PM 120 mg po qhs Patient advised to adhere to a low sodium diet, encouraged about medication compliance, counseled about weight loss. Assessment & Plan (10/03/2023 10:00 AM EDT): Patient with Hx of Hypertension Most recent electrolytes, Bun and Creatinine done on: 09/29/2023 were within normal limits. He is on Verelan PM 120 mg po qhs BP today low, pt c/o dizziness Plan HOLD Verelan. Discussed with VNA Patient advised to adhere to a low sodium diet, encouraged about medication compliance, counseled about weight loss. Assessment & Plan (12/19/2022 2:19 PM EDT): - BP is at goal of less than 140/90 per JNC8 guidelines. Considering possibility to decrease BP medication as BP has been on lower side. F/u in 1 month to do a complete med rec/ education and address adherence factors. Assessment & Plan (08/15/2022 1:13 PM EST): Patient with Hypertension Most recent electrolytes, Bun and Creatinine done on: 06/03/2022 were within normal limits. He is on Verelan PM 120 mg po qhs No changes to his medical regimen Patient advised to adhere to a low sodium diet, encouraged about medication compliance, counseled about weight loss. Chronic anemia 08/01/2022 Assessment & Plan (04/18/2023 11:58 AM EDT): Pt with normocytic normochromic anemia, etiology ? chronic disease ? vs other etiologies Iron studies weer abnormal b 12 , folate, retic WNL. SPEP, WNL. Pt was also referred to a transportation specialist to r/o hematologic conditions. vs anemia of chronic disease. and to GI to r/o GIB. Pt did nto go to either. compliance is a major problem. Last CBC 06/03/2022 was unchanged. ?? Assessment & Plan (08/15/2022 12:35 PM EST): Pt with normocytic normochromic anemia, etiology ? chronic disease ? vs other etiologies Iron studies weer abnormal b 12 , folate, retic WNL. SPEP, WNL. Pt was also referred to a transportation specialist to r/o hematologic conditions. vs anemia of chronic disease. and to GI to r/o GIB. Pt did nto go to either. compliance is a major problem. Last CBC 06/03/2022 was unchanged. [facility] health care 08/01/2022 Assessment & Plan (07/02/2024 12:46 PM EST): Colonoscopy: 01/08/2018 Normal 10 year f/u PSA 2019 Normal. Will repeat Assessment & Plan (10/03/2023 9:49 AM EDT): Colonoscopy: 01/08/2018 Normal 10 year f/u PSA 2019 Normal. Will repeat Assessment & Plan (03/28/2023 2:10 PM EDT): Colonoscopy: 01/08/2018 Normal 10 year f/u PSA 2019 Normal. Will repeat Assessment & Plan (12/19/2022 2:21 PM EDT): - Needs tubing for nebulizer; uses twice daily and uses ventolin daily; need f/u on COPD treatment and control. - Seems patient got vivitrol from [facility]. But has naltrexone on file; message to be conveyed to AUD treatment team. Assessment & Plan (08/15/2022 12:33 PM EST): Colonoscopy: 01/08/2018 Normal 10 year f/u Finger lesion 08/01/2022 Assessment & Plan (08/15/2022 12:37 PM EST): Pt with a previously described small round hyperkeratotic lesion on his left index finger. initially evaluated at [facility] for consideration of excision. They recommended pt see a steam presser. he was seen by a local steam presser Dr Ortiz who recommended a plastic surgeon Dr Littlejohn to excise the lesion his impression was that it could be a cyst, a schwannoma or atypia. Pt was scheduled with Dr Littlejohn for 01/23 but pt missed appointment on 02/27/2012, he was seen and Dr Littlejohn scheduled him for excision. He apparently underwent a biopsy instead on 08/15/2012 and pathology showed a keratotic horn, and scant subjacent squamous epithelium showing changes suggestive of a verrucae. Today he comes back because the lesion seems to have grown significantly since last time and has become intensively pruritic and described as painful. On last visit I recommended pt to have the lesion excised. He was seen August 05 2016 and a biopsy of the lesion was recommended . pt had the lesion removed and per his report the biopsy was benign Hospital discharge follow-up 08/01/2022 Assessment & Plan (01/09/2024 10:35 AM EDT): He was admitted to [facility] from 11/28-12/14 due to acute metabolic encephalopathy and respiratory distress. The patient had reportedly been missing 28 tablets of clonazepam and there was concern for overdose however patient adamantly denies this. He was ultimately diagnosed with what appears to be a postobstructive pneumonia with acute hypoxemic respiratory failure and COPD exacerbation. He was treated with IV antibiotics, IV steroids, and nebulizer treatments. Repeat chest CT showed near resolution of consolidative mass in the right lower lobe but there was remaining incidental 0.7 x 0.4 cm solid nodule slightly lower than the cavitary lesion. Once patient recovered from his PNA and COPD exacerbation he was transferred to [facility] 12/16/2023 psychiatric siu where he remained until 12/28/2023 His medications were adjusted and once stable he was discharged. Pt today reports he feels good, is back at hoahaoism and feels much better. No concerns Assessment & Plan (07/04/2023 4:14 PM EST): Here after a recent Hospital admission where he was admitted for depression and underlying Bipolar disorder Assessment & Plan (04/18/2023 11:50 AM EDT): Patient here for a HDF admitted to [facility] from 04/01 until 04/03 presented via EMS for increased SOB. Admitted for COPD exacerbation, started on nebs, steroids, and cough medication. Discharged home on 2 more days of azithromycin, prednisone and codeine/guaifenesin for cough. ?? Patient was then admitted to [facility] from 04/05 until 04/07 with viral URI and COPD exacerbation. Treated with prednisone and azithromycin x 3 days. Given Breo, Spiriva and Duonebs prn. Patient improved and ambulated w/o difficulty. Discharged on 3 more days of prednisone, Spiriva, Symbicort and albuterol. Discharged home to f/u [facility] PCP. Pt was seen by pulmonology 04/14/23 Dr. Gerber's office to confirm which inhalers patient was to continue as their office sent in a Stiolto. Per Debra, after discussion with Dr. Gerber who stated patient is to continue on Stiolto and albuterol inhalers and discontinue Symbicort, Spiriva and Flovent. He confirmed their office would reach out to patient to instruct him ?? Assessment & Plan (03/07/2023 9:47 AM EDT): Patient is here for a HDF, recently admtted and discharged 02/24 from [facility] after he presented with c/o chest and abdominal pain with suicidal ideation, in the setting of cocaine use, for which patient started on baclofen ( Cocaine cravings ). While in the Hospital patient was followed by psychiatry and reported an improvement in symptoms and was looking forward to discharge. Urology was consulted diagnosed with kidney stones. Patient's symptoms resolved and was discharged to respite facility. While in the Hospital these medications were added: Baclofen 10 m tablet by mouth three times daily (cocaine cravings). Topiramate 25 m tablets at bedtime,Trazodone 50 m tablet at bedtime as needed. Meds that were modified: Zolpidem 10 mg decreased to 5 mg at bedtime. Tamsulosin 0.4 mg daily was increased to 0.8 mg (2 capsules) daily, Hydroxyzine 50 m tablet every 6 hours. Assessment & Plan (08/15/2022 12:33 PM EST): Patient is here for a HDF. He has been seen in the Hospital on multiple occassions, most recently she. presented to the ED on 07/19/2021 with c/o chest pain, work up unremarkable complaints thought to be most likely from GERD. Patient was sent home on sucralfate and Protonix. Prior to that patient presented to the ER with 06/26 c/o right flank pain, thought to be possibly due to kidney stone. Patient was prescribed tramadol and Miralax. Patient was also sectioned 12 in the ED and admitted to [facility] from 06/21 to 07/08 for severe depression with SI and planned to OD on pills. Patient reported his son was murdered and he fell into deep depression, and relapsed to using cocaine daily. Patient attempted suicide with pills a few days prior however woke up the next day and outreached a friend. Patient endorsed auditory, visual, and tactile hallucinations. Patient reported feeling like people were out to get him. Medication changes while admitted included clonazepam 0.5mg increased from BID to TID, Mirtazapine was lowered from 30mg to 15mg for sleep (to titrate off once stable on venlafaxine), Quetiapine changed to 100mg BID and 500mg HS, zolpidem was started and increased to 10mg HS, and venlafaxine started and increased to 75mg daily. Patient denied any ADEs to medications and patient mood and outlook on life improved over the course of his stay. Patient discharged home to F/U with [facility]. ?Patient reports feeling ? better? since discharge. Using medications prescribed at discharge, and reports he is in need of refills. Patient gets help from nurse to administer medications. Patient reports having F/U with a counselor however reports that appointment is in [place] and reports interest in getting counselor or psych treatment at [place]. Pulmonary emphysema 06/14/2022 Assessment & Plan (01/09/2024 10:22 AM EDT): Patient is here for a follow up. Recent admissions to Hospital for acute respiratory failure and COPD exacerbation. He is on Stiolto, Albuterol, Duoneb PRN and follows with Dr. Gerber last seen 04/14/2023. Follow up scheduled for this Monday 10:15 AM Pt and VNA informed of appointment. Most recent PFTs done 08/30/2019 showed severe COPD with a reversible component Plan: Continue Rx by Dr Gerber Chest Ct 10/2023 done to follow up on a recently seen chest x-ray abnormality showed moderate centrilobular emphysematous changes. And a 3.1 cm mass is again seen at the central right base, with spiculations and central necrotic foci. This is highly suspicious for neoplasm. Recommend further evaluation, possibly to include PET/CT or biopsy. I referred back to [facility] Pulmonology department since he is a patient of Buzz Barcenas and I ordered a PET-CT but this was not done ( pt was admitted to the Hospital ) Repeat Chest CT 11/28/ at [facility] showed: IMPRESSION: 1. Near complete resolution of consolidative right lower lobe mass leaving behind a small slightly thick-walled cavitary lesion. Recommend continued CT surveillance in 6 months to document resolution and reestablish baseline. 2. Moderate emphysema. 3. There is a 0.7 x 0.4 cm solid nodule in the lateral segment of the right lower lobe is not seen on either of the 2 prior studies available for review, suggesting that it is a new pulmonary nodule. Because there is emphysema, the patient is clearly at increased risk for malignancy. This lesion should be reassessed at the time of the follow-up CT scan in 6 months per Guidelines for Management of Incidental Pulmonary Nodules Detected on CT Images Pt has appointment with Dr. Gerber this Monday 10:15 Assessment & Plan (11/14/2023 3:21 PM EDT): Patient is here for a follow up. Recent admissions to Hospital to the Hospital for COPD exacerbations. He is now on Stiolto, Albuterol, Duoneb PRN and follows with Dr. Gerber last seen 04/14/2023 Most recent PFTs done 08/30/2019 showed severe COPD with a reversible component Plan: Continue on Stiolto by Dr Gerber Pt was supposed to have an appointment with Pulmonary 08/17/2023 Pt told me previously that his VNA had all the appointments and reminds him of these Recent Chest Ct 10/2023 done to follow up on a recently seen chest x-ray abnormality showed moderate centrilobular emphysematous changes. And a 3.1 cm mass is again seen at the central right base, with spiculations and central necrotic foci. This is highly suspicious for neoplasm. Recommend further evaluation, possibly to include PET/CT or biopsy. I have referred back to [facility] Pulmonology department since he is a patient of Buzz Barcenas and I have ordered a PET-CT Assessment & Plan (08/08/2023 10:33 AM EST): Patient is here for a follow up. Recent admissions to Hospital to the Hospital for COPD exacerbations. He is now on Stiolto, Albuterol, Duoneb PRN and follows with dr Gerber last seen 04/14/2023 Most recent PFTs done 08/30/2019 showed severe COPD with a reversible component Plan: Continue on Stiolto by Dr Gerber Has appointment with Pulmonary 08/17/2023 Pt tells me his VNA has all the appointments and reminds him of these f/u in 4 months Assessment & Plan (07/04/2023 4:11 PM EST): Patient is here for a follow up. Recent admissions to Hospital to the Hospital for COPD exacerbations. He is now on Stiolto, Albuterol, Duoneb PRN and follows with dr Gerber last seen 04/14/2023 Most recent PFTs done 08/30/2019 showed severe COPD with a reversible component Plan: Continue on Stiolto by Dr Gerber f/u in 4 months Assessment & Plan (2023 11:44 AM EDT): Patient is here for a follow up. Recently admitted to the Hospital in 2 different occassions for COPD exacerbations. He is now on Stiolto and Albuterol, and follows with dr Gerber last seen 04/14/2023 Most recent PFTs done 08/30/2019 showed severe COPD with a reversible component Plan: Continue on Stiolto by Dr Gerber f/u in 3 months Assessment & Plan (04/18/2023 12:20 PM EDT): Patient is here for a follow up. Recently admitted to the Hospital in 2 different occassions for COPD exacerbations. He is now on Stiolto and Albuterol, and follows with dr Gerber last seen 04/14/2023 Most recent PFTs done 08/30/2019 showed severe COPD with a reversible component Plan: Continue on Stiolto by Dr Gerber f/u in 3 months Assessment & Plan (04/04/2023 4:05 PM EDT): Patient is supposed to be on Flovent, Spiriva and Albuterol, Most recent PFTs done 08/30/2019 showed severe COPD with a reversible component Pulmonology referral placed twice, he no showed Recently hospitalized 01/16/2023 at [facility] for COPD exacerbation as well as substance abuse and suicidal ideation. Plan: Continue Flovent and Duonebs prn, at some point he was on Stiolto by Dr Gerber, but has not filled. Pt was referred to Pharmacy asthma clinic in the past f/u in 3 months Will refer back to Dr Gerber Assessment & Plan (02/07/2023 12:54 PM EDT): Televisit He is supposed to be on Flovent, Spiriva and Albuterol, Most recent PFTs done 08/30/2019 showed severe COPD with a reversible component Pulmonology referral placed twice, no showed Recently hospitalized 01/16/2023 at [facility] for COPD exacerbation as well as substance abuse and suicidal ideation. Plan: Continue Flovent and Duonebs prn, at some point he was on Stiolto by Dr Gerber, but has not filled Pt was referred to Pharmacy asthma clinic in the past f/u in 3 months Assessment & Plan (08/15/2022 1:22 PM EST): He is on Flovent, Spiriva and Albuterol, Most recent PFTs done 08/30/2019 showed severe COPD with a reversible component Pulmonology referral placed twice, no showed, placed again Plan: Continue Flovent and Duonebs prn, at some point he was on Stiolto by Dr Gerber, but has not filled since February of last year Nebulizer machine and supplies sent today Pt was referred to Pharmacy asthma clinic in the past f/u in 3 months Immune to hepatitis A 06/14/2022 Immune to hepatitis B 06/14/2022 Hepatitis C antibody test positive 10/16/2018 Assessment & Plan (08/15/2022 12:34 PM EST): Pt with a Hx of chronic active Hepatitis C. Finished 8 weeks of treatment , cured Previously I recommended an abdominal US (he did not do it ) and AFP ( 08/15/2018 Normal) Plan: Re=order Abdominal U/S and AFP, Most recent LFTS 06/03/2022 were wnl Cocaine abuse 06/01/2017 Assessment & Plan (07/02/2024 11:12 AM EST): Pt started on suboxone while in the Hospital Has missed multiple appointments CRS test positive for Cocaine 06/12/2024 in the Er and today Patient was referred previously for our CRS Cocaine support group. Pt tells me he has an appointment tomorrow I had a explained to patient that he is not a good candidate for Narcotics given his Hx of substance abuse and active use of Cocaine Assessment & Plan (08/08/2023 10:35 AM EST): Pt started on suboxone while in the Hospital Has missed multiple appointments CRS test positive for Cocaine today Patient was referred for our CRS Cocaine support group. I had a explained to patient that he is not a good candidate for Narcotics given his Hx of substance abuse and active use of Cocaine Assessment & Plan (07/04/2023 4:13 PM EST): Pt started on suboxone while in the Hospital Has an appointment at our [facility] tomorrow Recent test at [facility] 03/24/2023 was positive for Cocaine Patient was referred for our CRS Cocaine support group. I had a explained to patient that he is not a good candidate for Narcotics given his Hx of substance abuse and active use of Cocaine Assessment & Plan (03/28/2023 1:01 PM EDT): Previous visit he told me he was not using Recent test at [facility] 03/24/2023 was positive for Cocaine Patient was referred for our CRS Cocaine support group. I had a explained to patient that he is not a good candidate for Narcotics given his Hx of substance abuse and active use of Cocaine Assessment & Plan (03/07/2023 1:39 PM EDT): Patient states he hasn't used since hospitalization. Will be referred to our OBAT program Dr. Jones for Cocaine support group. I have a explained to patient that he is not a good candidate for Narcotics given his Hx of substance abuse and recent relapse using Cocaine Assessment & Plan (02/07/2023 12:55 PM EDT): Admitted to [facility] 01/16/2023 for COPD exacerbation in the setting of ongoing cocaine abuse Pt referred to the [facility] Assessment & Plan (10/03/2022 5:03 PM EDT): Pos Urine tox today. Patient states he hasn't used since hospitalization Mixed hyperlipidemia 05/12/2016 Assessment & Plan (04/04/2023 4:13 PM EDT): Most recent lipid profile from: 03/01/2021 shows a total cholesterol of: 263 triglycerides of: 74 HDL of: 53 and LDL of: 192 He is on Atorvastatin Plan: Continue Atorvastatin 40 mg po qhs, recheck Lipid profile next visit advised to try to adhere to a low cholesterol diet, counseled and educated about diet and exercise, Patient encouraged to come up with a personal goal for weight loss. Assessment & Plan (08/15/2022 12:34 PM EST): Most recent lipid profile from: 03/01/2021 shows a total cholesterol of: 263 triglycerides of: 74 HDL of: 53 and LDL of: 192 He is on Atorvastatin Plan: Continue Atorvastatin 40 mg po qhs, recheck Lipid profile next visit advised to try to adhere to a low cholesterol diet, counseled and educated about diet and exercise, Patient encouraged to come up with a personal goal for weight loss. Migraine 10/30/2014 Opioid dependence 06/28/2012 Positive NICK (antinuclear antibody) 02/09/2012 Assessment & Plan (08/15/2022 12:37 PM EST): Hx of positive NICK. Pt was referred back to Rheumatology for input, unfortunately, pt did not go. Se[facility] in the [facility] by [facility]. Last seen 05/15/2014 Kidney stone 02/09/2012 Assessment & Plan (03/28/2023 1:00 PM EDT): Patient with c/o flank pain, evaluated in the ER 03/24/2023. Renal US showed: Bilateral renal stones. No hydronephrosis. Plan: Urology consult Anxiety state 12/28/2011 Assessment & Plan (03/07/2023 1:38 PM EDT): I spoke with pt's VNA from [facility] . Pt is already scheduled to see a psychotherapist ( Brian ) tomorrow 03/08/2023 and a Psychiatrist (Bakari Sloan ) via Telehealth on 03/23/2023 I have agreed to refill his Klonopin 0.5 mg po BID VNA reasurred me she will count them and placed them in a lock box. I also refilled his Hydroxyzine Pt promised not to miss his appointments Resolved Problems Problem Noted Date Diagnosed Date Resolved Date Substance-related disorder 11/21/2022 1 07/30/2022 Assessment & Plan (2023 12:00 PM EDT): Still using Cocaine in a regular basis, urine positive for THC, TCA and Cocaine, pt admits using 3 days ago, counseled and educated about substance abuse and encouraged him to seek help, he continues to insists that he does not need help and that he can stop on his own Current severe episode of ma jony depressive disorder with psychotic features without prior episode 01/09/2012 05/30/2023 Assessment & Plan (05/16/2023 3:03 PM EDT): Assessment: Patient presents with SI, AH with commands and depressive sxs. PHQ-9 was administered and patient scored 26, also suicidal screening was administered patient scored imminent risk. Reason for visit was to assess symptoms and provide support to patient. Symptoms are present in the context of living alone, substance abuse, AH with commands. Provided spcae to vent and discussed Crisis intervention, Augustin agreed. Patient has Psychiatrist at [facility] but his VNA adriana has not been able to contact him to inform that he run out of his Klonopin. Crisis was made aware of this matter. At this time Augustin Vital meets criteria for Visit Diagnoses: Problem List Items Addressed This Visit Other 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 without prior episode (CMS/HCC) Suicidal ideation Substance-related disorder (CMS/HCC) Patient ready to address current needs Yes Strengths include Augustin knows were to go to obtain help. PLAN: 1. Follow up with [facility]: Recommended for follow-up: during OBAT appt 2. Patient goal is to imporve mental health and become sober 3. Behavioral Recommendations a. Crisis Evaluation b. Taking Psych meds as prescribed c. Keeping in touch with [facility] and [facility] Assessment & Plan (04/04/2023 4:02 PM EDT): Patient here for a follow up He has a VNA from [facility] . He was supposed to see a psychotherapist ( Brian ) but apparently did not. He tells me he has an appointment with a Psychiatrist (Bakari Sloan ) today in person at 5 PM Previous visit I agreed to refill his Klonopin 0.5 mg po BID VNA reasurred me she will count them and placed them in a lock box. I also refilled his Hydroxyzine and will continue to refill his psychiatric medications until he sees a psychiatrist. While in the Hospital he was continued on his home medication regimen and new meds were added and others were modified. Previously admitted to [facility] from 06/21 to 07/08 for severe depression with SI and planned to OD on pills. Patient reported his son was murdered and he fell into deep depression, and relapsed to using cocaine daily. Assessment & Plan (03/07/2023 1:41 PM EDT): Patient here for a follow up I spoke with pt's VNA from [facility] . Pt is already scheduled to see a psychotherapist ( Brian ) tomorrow 03/08/2023 and a Psychiatrist (Bakari Sloan ) via Telehealth on 03/23/2023 I have agreed to refill his Klonopin 0.5 mg po BID VNA reasurred me she will count them and placed them in a lock box. I also refilled his Hydroxyzine and will continue to refill his psychiatric medications until he sees a psychiatrist. While in the Hospital he was continued on his home medication regimen and new meds were added and others were modified Pt promised not to miss his appointments Previously admitted to [facility] from 06/21 to 07/08 for severe depression with SI and planned to OD on pills. Patient reported his son was murdered and he fell into deep depression, and relapsed to using cocaine daily. Assessment & Plan (02/07/2023 12:59 PM EDT): Patient here for a follow up Previously admitted to [facility] from 06/21 to 07/08 for severe depression with SI and planned to OD on pills. Patient reported his son was murdered and he fell into deep depression, and relapsed to using cocaine daily. Patient attempted suicide with pills a few days prior however woke up the next day and outreached a friend. Patient endorsed auditory, visual, and tactile hallucinations. Patient reported feeling like people were out to get him. Prior to this admission pt told me he was seeing Dr Jeffery Harkins in [place] The recommendation from [facility] is that once patient was stable on Venlafaxine 75 to taper him off Mirtazapine and Klonopin. Plan: Continue Mirtazapine 15mg for sleep (to titrate off once stable on venlafaxine), Quetiapine 100mg BID and 500mg HS, Zolpidem 10mg HS, Venlafaxine 75mg daily. and Klonopin to 0.5 mg po every day. Assessment & Plan (08/15/2022 1:41 PM EST): Patient here for a follow up Pt tells me has a follow up at [facility] on 08/17/2022 at 1:30 PM was also sectioned 12 in the ED and admitted to [facility] from 06/21 to 07/08 for severe depression with SI and planned to OD on pills. Patient reported his son was murdered and he fell into deep depression, and relapsed to using cocaine daily. Patient attempted suicide with pills a few days prior however woke up the next day and outreached a friend. Patient endorsed auditory, visual, and tactile hallucinations. Patient reported feeling like people were out to get him. Medication changes while admitted included clonazepam 0.5mg increased from BID to TID, Mirtazapine was lowered from 30mg to 15mg for sleep (to titrate off once stable on venlafaxine), Quetiapine changed to 100mg BID and 500mg HS, zolpidem was started and increased to 10mg HS, and venlafaxine started and increased to 75mg daily. Patient denied any ADEs to medications and patient mood and outlook on life improved over the course of his stay. Patient discharged home to F/U with [facility]. Prior to this admission pt told me he was seeing Dr Jeffery Harkins in [place] Prior to his admission he was on a lower dose of Seroquel (300 mg at bedtime plus 100 mg at bedtime). He was also on a higher dose of Mirtazapine of 30 mg at bedtime, Paxil 30 mg at HS and Klonopin 1 mg BID prescribed by Dr Jeffery Harkins. The recommendation from [facility] is that once patient was stable on Venlafaxine 75 to taper him off Mirtazapine and Klonopin. Plan: DC Paxil, Lower Klonopin to 0.5 mg po BID PRN x 1 month then every day x 1 month then every other day until DC Encounters Date Type Department Care Team Description 08/14/2024 9:00 AM EST Office Visit [facility] [address] [place] [phone] Alexander Jones MD Uncomplicated opioid dependence (CMS/HCC) (Primary Dx) 08/14/2024 Refill [facility] [address] [place] [phone] Georgina Ann, GUERO Uncomplicated opioid dependence (CMS/HCC) 08/14/2024 Patient Outreach [address] [address] Trenton [facility] 08/14/2024 Travel 08/08/2024 Refill [facility] [address] [place] [phone] Vince Lockhart MD 08/07/2024 9:00 AM EST Office Visit [address] [address] Alexander Jones MD Uncomplicated opioid dependence (CMS/HCC) (Primary Dx) 08/07/2024 Telephone [facility] [address] [place] [phone] Georgina Ann, GUERO 08/07/2024 Refill [facility] [address] [place] [phone] Georgina Ann, GUERO Uncomplicated opioid dependence (CMS/HCC) 08/07/2024 Travel 08/02/2024 Telephone [facility] [address] [place] [phone] Georgina Ann, GUERO 08/01/2024 Telephone [facility] [address] [place] [phone] Alexander Jones MD 07/31/2024 1:30 PM EST Clinical Support [address] [address] Georgina Ann RN Uncomplicated opioid dependence (CMS/HCC) (Primary Dx) 07/31/2024 9:15 AM EST Office Visit [facility] [address] [place] [phone] Medhat, Carla, OD Presbyopia (Primary Dx) 07/31/2024 Refill [facility] [address] [place] [phone] Rashaun Vila RN 07/31/2024 Travel 07/31/2024 Refill [facility] [address] [place] [phone] Georgina Ann RN Uncomplicated opioid dependence ([facility]/HCC) 07/30/2024 Refill [facility] [address], [place] [phone] Vince Lockhart MD Hospital discharge follow-up 07/26/2024 Refill [facility] [address] [place] [phone] Georgina Ann RN Uncomplicated opioid dependence (CMS/HCC) 07/24/2024 9:00 AM EST Office Visit [address] [address] Alexander Jones MD Opioid type dependence, continuous (CMS/HCC) (Primary Dx) 07/24/2024 Travel 07/24/2024 Patient Outreach [facility] [address] [place] [address] [place] [address] Vince Lockhart MD Care Coordination (CH[facility] outreach for SDOH PT-1 and food needs-referral completed /) 07/24/2024 Telephone [facility] [place] [address] Vince Lockhart MD 07/24/2024 Refill [facility] [place] [address] Vince Lockhart MD Cocaine abuse (CMS/HCC) 07/19/2024 Refill [facility] [place] [address] Georgina Ann RN Uncomplicated opioid dependence (CMS/HCC) 07/03/2024 9:00 AM EST Office Visit [facility] [place] [address] Alexander Jones MD Uncomplicated opioid dependence (CMS/HCC) (Primary Dx) 07/03/2024 Travel 07/02/2024 10:30 AM EST Office Visit [facility] [place] [address] Vince Lockhart MD Sleep disturbances (Primary Dx); Elevated random blood glucose level; Acute pulmonary embolism without acute cor pulmonale, unspecified pulmonary embolism type (CMS/HCC); Primary hypertension; Cocaine abuse (CMS/HCC); Routine physical examination; 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, unspecified whether recurrent (CMS/HCC); Weight loss; Bipolar affective disorder, currently depressed, moderate (CMS/HCC); Preventative health care 07/02/2024 Refill [facility] [place] [address] Georgina Ann RN Uncomplicated opioid dependence (CMS/HCC) 07/02/2024 Travel 07/01/2024 Patient Outreach [facility] [place] [address] Vince Lockhart MD Care Coordination ([facility] outreach for SDOH PT-1 and food needs-referral completed /) 07/01/2024 Telephone [facility] [place] [address] Vince Lockhart MD PT-1 06/26/2024 Telephone [facility] [place] [address] Vince Lockhart MD Chart Prep 06/26/2024 Telephone [facility] [place] [address] Yvette Alford MA 06/24/2024 Orders Only GENERIC EXTERNAL DATA DEPARTMENT Provider, Generic External Data 06/24/2024 Refill [facility] [place] [address] Georgina Ann, GUERO Uncomplicated opioid dependence (CMS/HCC) 06/21/2024 Patient Outreach [address] [address] Vince Lockhart MD Pre-visit Planning (SDOH screening was completed on 09/25/2023) 06/18/2024 Refill [facility] [address] [place] [phone] Georgina Ann RN Uncomplicated opioid dependence (CMS/HCC) 06/14/[address] [address] Vince Lockhart MD 06/12/2024 9:00 AM EST Clinical Support [address] [address] Migdalia Ji RN Opioid type dependence, continuous (CMS/HCC) (Primary Dx) 06/12/2024 Travel 06/10/2024 2:00 PM EST Office Visit [facility] [address] [place] [phone] Reji Manning, DMD 06/07/2024 Refill [facility] [address] [place] [phone] Georgina Ann, GUERO Uncomplicated opioid dependence (CMS/HCC) 06/05/2024 9:00 AM EST Office Visit [address] [address] Alexander Jones MD Uncomplicated opioid dependence (CMS/HCC) (Primary Dx) 06/05/2024 Travel 06/03/2024 10:00 AM EST Office Visit [facility] [address] [place] [address] Reji Manning, DMD 05/30/2024 11:15 AM EST Office Visit [facility] [address] [place] [address] Tory Garcia, OD Epiretinal membrane, right eye (Primary Dx); Posterior vitreous detachment of both eyes; Nuclear sclerotic cataract of both eyes; Lattice degeneration of right retina; Presbyopia 05/30/2024 Travel 05/30/2024 Refill [facility] [address] [place] [address] Georgina Ann RN Uncomplicated opioid dependence (CMS/HCC) 05/29/2024 9:00 AM EST Office Visit [facility] [address] [place] [address] Alexander Jones MD Opioid type dependence, continuous (CMS/HCC) (Primary Dx) 05/29/2024 Travel 05/23/2024 10:30 AM EST Office Visit [facility] [address] [place] [address] Reji Manning, DMD 05/23/2024 Refill [facility] [address] [place] [address] Georgina Ann RN Uncomplicated opioid dependence ([facility]/HCC) 05/20/2024 Refill [facility] [address] [place] [address] Vince Lockhart MD from Last 3 Months Immunizations Name Administration Dates Next Due Influenza injectable quadriv alent preservative free 05/18/2023,08/23/2022,04/07/2021,07/07,03/16/2019,06/28/2018,05/27/2017 Influenza, IIV3, injectable 06/03/2014, 4 Influenza, Split (incl. ely fied surface antigen) 05/29/2013,06/01/2012,03/15/2012 Influenza, seasonal, injecta ble, preservative free 04/29/2017,04/26/2016 Aubrey SARS-CoV-2 Vaccination 09/30/2020 Moderna Covid-19 Vaccine 12+ 07/08/2021 Pfizer Covid-19 Vaccine 12+ 09/21/2023 Pneumococcal Conjugate PCV 20 08/03/2022 Pneumococcal Polysaccharide PPSV23 01/06/2014 TD (adult), 2 Lf tetanus tox oid, preservative free, adsorbed 08/03/2017 Td (adult), 5 Lf tetanus tox oid, preservative free, adsorbed 06/05/2015,12/29/2014 Tdap 01/20/2023 Zoster, Recombinant 02/13/2018,10/11/2017 Family History Medical History Relation Name Comments No Known Problems Maternal Grandfather congenital blindness Sister Relation Name Status Comments Maternal Grandfather Sister Social History Tobacco Use Types Packs/Day Years Used Date Smoking Tobacco: Some Days Cigarettes Passive Smoke Exposure: Past Smokeless Tobacco: Never Tobacco Cessation:Ready to Q uit: Not Asked; Counseling Given: Not Answered Alcohol Use Standard Drinks/Week Comments Not Currently [...] not to disclose 2021 10:14 AM EDT Last Filed Vital Signs Vital Sign Reading Time Taken Comments Blood Pressure 130/80 07/02/2024 10:54 AM EST Pulse 97 07/02/2024 10:54 AM EST Temperature 36.2 ??C (97.2 ??F) 07/02/2024 10:[address] Respiratory Rate 20 07/02/2024 10:54 AM EST Oxygen Saturation 97% 07/02/2024 10:54 AM EST Inhaled Oxygen Concentration - - Weight 58.2 kg (128 lb 6.4 oz) 07/02/2024 10:54 AM EST Height 162.6 cm (5' 4 ) 07/02/2024 10:54 AM EST Body Mass Index 22.04 07/02/2024 10:54 AM EST Plan of Treatment Upcoming Encounters Date Type Department Care Team (Late st Contact Info) Description 08/21/2024 9:00 AM EST Office Visit [address] [address] Alexander Jones MD [address] [place] [phone] 08/28/2024 9:00 AM EST Office Visit [address] [address] Alexander Jones MD [address] [place] [phone] 10/29/2024 11:30 AM EDT Office Visit [address] [address] Vince Lockhart MD [address] [place] [address] Health Maintenance Due Date Last Done Comments CT Colonography 1965 FIT DNA/Cologuard 1965 FIT 1965 FOBT 1965 Sigmoidoscopy 1965 Hepatitis A Vaccines (1 of 2 - Risk 2-dose series) 1982 Dental Prophylaxis 05/29/2015 11/25/2014, 1 07/26/2013, 09/05/2013 Dental Oral Exam 10/05/2018 04/06/2018, 03/2016, 08/06/2013, Additional history exists Dental X-Ray: Bitewings 04/07/2019 04/06/20 18, 04/18/2016, 08/25/2015, Additional history exists RSV Patients and Patients Aged 60 years or older (1 - Risk 60-74 years 1-dose series) 2023 COVID-19 Vaccine ( season) 2024 09/21/2023, 07/08/2021, 09/30/2020 Influenza Vaccine (#1) 2024 , 08/23/2022, 04/07/2021, Additional history exists SDOH Screening 09/24/2024 09/25/2023 Tobacco Screening 06/10/2025 06/10/2024 Alcohol/Substance Use Screening 07/02/2025 07/02/2024 Depression Screening 07/02/2025 07/02/2024, 07/02/20 24 Lipid Panel 03/01/2026 03/01/2021 Dental X-Ray: Full Mouth 10/26/2026 10/26/2023, 07/18 Colonoscopy 01/09/2028 01/08/2018 Colorectal Cancer Screening 01/09/2028 DTaP/Tdap/Td Vaccines (2 - Td or Tdap) 01/20/2033 01/20/2023, 08/03/2017, 06/05/2015, Additional history exists Zoster Vaccines Completed 02/13/2018, 10/11/2017 Pneumococcal Vaccine: 50+ Years Completed 08/03/2022, 01/06/2014 HIV Screening Completed 08/24/2023, 09/10/2019 Hepatitis C Screening Completed 08/24/2023, 024 HIB Vaccines Aged Out No longer eligi ble based on patient's age to complete this topic HPV Vaccines Aged Out No longer eligi ble based on patient's age to complete this topic Hepatitis B Vaccines Aged Out No long er eligible based on patient's age to complete this topic IPV Vaccines Aged Out No longer eligi ble based on patient's age to complete this topic Meningococcal Vaccine Aged Out No fermin noemi eligible based on patient's age to complete this topic RSV under 20 months Aged Out No longe r eligible based on patient's age to complete this topic Rotavirus Vaccines Aged Out No longer eligible based on patient's age to complete this topic Goals Goal Patient Goal Type Associated Problems Recent Progress Patient-Stated? Author Patient will adhere to medication regimen General No Osiel Mendez, PharmD Note: Difficulty with taking medications daily due to no desire Procedures Procedure Name Priority Date/Time Associated Diagnosis Comments POCT MARIA ANTONIA-14 URINE DRUG SCREEN Routine 08/14/2024 8:56 AM EST Uncomplicated opioid dependence (CMS/HCC) POCT MARIA ANTONIA-14 URINE DRUG SCREEN Routine 08/07/2024 9:10 AM EST Uncomplicated opioid dependence (CMS/HCC) POCT MARIA ANTONIA-14 URINE DRUG SCREEN Routine 07/31/2024 1:40 PM EST Uncomplicated opioid dependence (CMS/HCC) POCT MARIA ANTONIA-14 URINE DRUG SCREEN Routine 07/24/2024 10:56 AM EST Opioid type dependence, continuous (CMS/HCC) POCT MARIA ANTONIA-14 URINE DRUG SCREEN Routine 07/03/2024 10:34 AM EST Uncomplicated opioid dependence (CMS/HCC) POCT MARIA ANTONIA-14 URINE DRUG SCREEN Routine 07/02/2024 11:09 AM EST Cocaine abuse (CMS/HCC) MAGNESIUM Routine 06/24/2024 5:16 PM EST CTA CHEST PE PROTOCAL Routine 06/24/2024 5:01 PM EST MAGNESIUM Routine 06/24/2024 1:18 PM EST HIGH SENSITIVITY TROPONIN I Routine 06/24/2024 1:18 PM EST B TYPE NATRIURETIC PEPTIDE (BNP) Routine 06/24/2024 1:18 PM EST LIPASE Routine 06/24/2024 1:18 PM EST COMPREHENSIVE METABOLIC PANEL Routine 06/24/2024 1:18 PM EST PROTHROMBIN TIME-INR Routine 06/24/2024 1:18 PM EST CBC WITH AUTO DIFFERENTIAL Routine 06/24/2024 1:18 PM EST SARS COV2/INFLUENZA A/B AND RSV RNA QL NAAT Routine 06/24/2024 1:18 PM EST XR CHEST 2 VIEWS Routine 06/24/2024 12:4 6 PM EST POCT MARIA ANTONIA-14 URINE DRUG SCREEN Routine 06/12/2024 9:57 AM EST Opioid type dependence, continuous (CMS/HCC) Jenny COMPLETE DENTURE - MANDIBULAR Routine 06/10/2024 2:00 PM EST ADJUNCTIVE GENERAL SERVICES - PROFESSIONAL VISITS - CASE PRESENTATION, SUBSEQUENT TO DETAILED AND EXTENSIVE TREATMENT PLANNING Routine 06/10/2024 2:00 PM EST POCT MARIA ANTONIA-14 URINE DRUG SCREEN Routine 06/05/2024 10:16 AM EST Uncomplicated opioid dependence (CMS/HCC) NO CHARGE VISIT Routine 06/03/2024 10:00 AM EST OCT, RETINA - OU - BOTH EYES Routine 05/30/2024 12:07 PM EST Epiretinal membrane, right eye POCT MARIA ANTONIA-14 URINE DRUG SCREEN Routine 05/29/2024 9:28 AM EST Opioid type dependence, continuous (CMS/HCC) ADJUNCTIVE GENERAL SERVICES - PROFESSIONAL VISITS - CASE PRESENTATION, SUBSEQUENT TO DETAILED AND EXTENSIVE TREATMENT PLANNING Routine 05/23/2024 10:30 AM EST 3,5,12,13,15 MAXILLARY PARTIAL DENTURE - RESIN BASE (INCLUDING, RETENTIVE/CLASPING MATERIALS, RESTS, AND TEETH) Routine 05/23/2024 10:30 AM EST PANORAMIC RADIOGRAPHIC IMAGE Routine 10/26/2023 10:30 AM EDT HEPATITIS C AB W/REFL TO HCV RNA, QN, PCR Routine 08/24/2023 2:22 PM EST Uncomplicated opioid dependence (CMS/HCC) HIV 1/2 ANTIGEN/ANTIBODY, FOURTH GENERATION W/RFL Routine 08/24/2023 2:22 PM EST Uncomplicated opioid dependence (CMS/HCC) LIPID PANEL, STANDARD Routine 03/01/2021 1:31 PM EDT BITEWINGS - 4 RADIOGRAPHIC IMAGES Routine 04/06/2018 12:00 AM EDT PERIODIC ORAL EVALUATION - ESTABLISHED PATIENT Routine 04/06/2018 12:00 AM EDT HM COLONOSCOPY Routine 01/08/2018 PROPHYLAXIS - ADULT Routine 11/25/2014 1 2:00 AM EDT from Last 3 Months or Most Recently Relevant to Health Maintenance Results * POCT MARIA ANTONIA-14 Urine Drug Screen (08/14/2024 8:56 AM EST) Only the most recent of9 resultswithin the time period is included. THC Negative Cocaine Screen, Urine Negative Opiate [...] CARE TEST ENTER/EDIT OR DERABLES Final Result * Magnesium (06/24/2024 5:16 PM EST) Only the most recent of2 resultswithin the time period is included. Magnesium 2.5 1.6 - 2.6 mg/dL [facility] 06/24/2024 5:16 PM EST 06/24/2024 5:19 PM EST us Generic External Data Provider LAB BLOOD ORDERAB LES Final Result [facility] [address] [place] [address] [phone] * CTA Chest PE Protocal (06/24/2024 5:01 PM EST) Anatomical Region Laterality Modality Body, Chest Computed Tomogra phy 06/24/2024 5:01 PM EST Narrative 06/24/2024 8:08 PM EST ? [facility] ?[address] ?[place] [address] ? CT Scan Report ? Signed ? Patient: Augustin Vital ?MR#: [id number] ?? [id number] ? : 1965 ?Acct:[id number] ? Age/Sex: 59 / M ?ADM Date: 06/24/24 ? Loc: HO.ED ? Attending Dr: ? Ordering Physician: Shruthi Jha ?? Date of Service: 06/24/24 ?? Procedure(s): CT angio chest PE protocol ?? Accession Number(s): [id number] ? cc: [facility]; Shruthi Jha ? EXAMINATION: ?? CT ANGIOGRAM OF THE CHEST WITH AND WITHOUT CONTRAST (CT PULMONARY ?? ANGIOGRAM FOR PE) ? CLINICAL INFORMATION: ?? r/o PE, dyspnea, cough ? COMPARISON: ?? CTA chest April 03, 2024 ? TECHNIQUE: ?? Prior to contrast administration, noncontrast localization images were ?? obtained. ?? Subsequently, multidetector volumetric imaging was ?? performed from the thoracic inlet to below the diaphragms following the ?? administration of 65 mL Omnipaque 350 intravenous contrast. ?? No contrast reaction reported. ?? Sagittal, coronal, and MIP oblique sagittal reformatted images were ?? obtained on the CT workstation, uploaded to PACS, and reviewed. ?? Total exam dose-length product 182 mGy-cm ? FINDINGS: ? QUALITY OF STUDY/CONTRAST BOLUS: Satisfactory. ? PULMONARY ARTERIES: No central or segmental pulmonary emboli. ? THORACIC AORTA: No aneurysm or dissection. ? LUNG: Mild centrilobular emphysema. ? PLEURA: No pleural effusion or pneumothorax. ? MEDIASTINUM: Normal heart size. ??No pericardial effusion. ??No hilar or ?? mediastinal lymphadenopathy. ??Moderate coronary artery calcification in ?? the LAD ? CHEST WALL/AXILLA: No axillary or internal mammary lymphadenopathy. ? OSSEOUS STRUCTURES: No acute or suspicious osseous abnormality. ? UPPER ABDOMEN: Bilateral upper pole nephrolithiasis. ? CT/CT angio chest PE protocol ?? IMPRESSION: ?? 1. ??No central or segmental pulmonary emboli. ?? 2. ??Mild centrilobular emphysema. ?? VTE: negative. ? Electronically signed by: ??Srini Pires MD ??06/24/2024 08:06 PM EST RP ? Dictated By: ?Srini Pires MD ? Signed By: ?<Electronically signed by Srini Pires MD in OV> ?06/24/24 2006 ? DD/ 1701 ? TD/TT: 06/24/24 1701 ? Asbestos Worker: ? Procedure Note Hari, Bao - 06/24/[address] [address] [place] Scan Report Signed Patient: Loly Vital#: [id number] : 1965Acct:[id number] Age/Sex: 59 / MADM Date: 06/24/24 Loc: HO.ED Attending Dr: Ordering Physician: Shruthi Jha Date of Service: 06/24/24 Procedure(s): CT angio chest PE protocol Accession Number(s): [id number] cc: [facility]; Shruthi Jha EXAMINATION: CT ANGIOGRAM OF THE CHEST WITH AND WITHOUT CONTRAST (CT PULMONARY ANGIOGRAM FOR PE) CLINICAL INFORMATION: r/o PE, dyspnea, cough COMPARISON: CTA chest April 03, 2024 TECHNIQUE: Prior to contrast administration, noncontrast localization images were obtained. Subsequently, multidetector volumetric imaging was performed from the thoracic inlet to below the diaphragms following the administration of 65 mL Omnipaque 350 intravenous contrast. No contrast reaction reported. Sagittal, coronal, and MIP oblique sagittal reformatted images were obtained on the CT workstation, uploaded to PACS, and reviewed. Total exam dose-length product 182 mGy-cm FINDINGS: QUALITY OF STUDY/CONTRAST BOLUS: Satisfactory. PULMONARY ARTERIES: No central or segmental pulmonary emboli. THORACIC AORTA: No aneurysm or dissection. LUNG: Mild centrilobular emphysema. PLEURA: No pleural effusion or pneumothorax. MEDIASTINUM: Normal heart size. No pericardial effusion. No hilar or mediastinal lymphadenopathy. Moderate coronary artery calcification in the LAD CHEST WALL/AXILLA: No axillary or internal mammary lymphadenopathy. OSSEOUS STRUCTURES: No acute or suspicious osseous abnormality. UPPER ABDOMEN: Bilateral upper pole nephrolithiasis. CT/CT angio chest PE protocol IMPRESSION: 1. No central or segmental pulmonary emboli. 2. Mild centrilobular emphysema. VTE: negative. Electronically signed by: Srini Pires MD 06/24/2024 08:06 PM EST Dictated By: Srini Pires MD Signed By: <Electronically signed by Srini Pires MD in OV> 06/24/242005 DD/ 00 TD/TT: 06/24/241700 Asbestos Worker: [facility] External Provider IMG CT PROCEDURES Final Result * High Sensitivity Troponin I (06/24/2024 1:18 PM EST) TROPONIN I HIGH SENSITIVITY <2.7 <3.5 - 35.0 ng/L [facility] Comment:The Rosales high sens itivity Troponin-I results should beused in conjunction with other diagnostic information suchas ECG, clinical observations and information, and patientsymptoms to aid in the diagnosis of RI. 06/24/2024 1:18 PM EST 06/24/2024 1:22 PM EST Generic External Data Provider LAB BLOOD ORDERAB LES Final Result Performing Organization Address [facility] Co de Phone Number [facility] [address] [place] [phone] * SARS-CoV-2 RNA, Influenza A/B, and RSV RNA, Ql NAAT (06/24/2024 1:18 PM EST) Pathologist [facility] Influenza A PCR NEGATIVE Negative [facility] Influenza B PCR NEGATIVE Negative [facility] Resp Syncy Virus RNA Qual PCR NEGATIVE Negative [facility] SARS COV2 PCR NEGATIVE Negative [facility] Comment:All test results mus t be correlated with clinical findings.Negative results do not preclude SARS-CoV2, influenza Avirus, influenza B virus and/or RSV infectionand should not be used as the sole basis for treatment orother patient management decisions. Negative results must becombined with clinical observations, patient history, andepidemiological information.This test has not been evaluated for monitoring treatment ofinfection.This test has been authorized by the FDA under an EmergencyUse Authorization (EUA) for use by authorized laboratories.Testing performed on the webme GeneXpert utilizingreal-time RT-PCR.All SARS CoV2 and positive influenza A/B results arereported to [facility]. 06/24/2024 1:18 PM EST 06/24/2024 1:22 PM EST Generic External Data Provider LAB MICROBIOLOGY - GENERAL ORDERABLES Final Result Performing Organization Address [facility] Co de Phone Number [facility] [address] [place] [phone] * (ABNORMAL) CBC auto differential (06/24/2024 1:18 PM EST) Pathologist [facility] White Blood Count 5.6 4.8 - 10.8 X10*3/uL [facility] Red Blood Count 3.82(L) 4.60 - 5.80 X10*6/uL [facility] Hemoglobin 11.3(L) 14.0 - 18.0 g/dl [facility] Hematocrit 33.7(L) 42.0 - 52.0 % [facility] Mean Corpuscular Volume 88.2 80.0 - 98.0 fL [facility] Mean Corpuscular Hemoglobin 29.6 27.0 - 33.0 pg [facility] Mean Corpuscular HGB Conc 33.5 31.0 - 36.0 g/dl [facility] Red Cell Distribution Width 14.2 11.0 - 16.0 % [facility] Platelet Count 368 160 - 400 X10*3/uL [facility] Mean Platelet Volume 8.7(L) 9.4 - 12.4 fL [facility] Neutrophils Percent Auto 53.0 45 - 73 % [facility] Imm Gran Pct Auto 0.7(H) 0.0 - 0.4 % [facility] Lymphocytes Percent Auto 31.5 20 - 40 % [facility] Monocytes Percent Auto 10.9 2 - 11 % [facility] Eosinophils Percent Auto 3.2 0 - 4 % [facility] Basophils Percent Auto 0.7 0 - 2 % [facility] NRBC Pct Auto 0.0 0.0 - 0.2 /100WBC [facility] Neutrophils Absolute Auto 3.0 2.0 - 8.3 x10*3/uL [facility] Imm Gran Abs Auto 0.04(H) 0.00 - 0.03 X10*3/uL [facility] Lymphocytes Absolute Auto 1.8 1.2 - 4.9 X10*3/uL [facility] Monocytes Absolute Auto 0.6 0.1 - 1.2 X10*3/uL [facility] Eosinophils Absolute Auto 0.2 0.0 - 0.4 X10*3/uL [facility] Basophils Absolute Auto 0.0 0.0 - 0.2 X10*3/uL [facility] NRBC Abs Auto 0.000 0.0 - 0.012 X10*3/uL [facility] 06/24/2024 1:18 PM EST 06/24/2024 1:22 PM EST Generic External Data Provider LAB BLOOD ORDERAB LES Final Result Performing Organization Address [facility]/ZIP Co de Phone Number [facility] [address] [place] [phone] * Prothrombin Time-INR (06/24/2024 1:18 PM EST) Prothrombin Time 12.3 10.9 - 12.4 SEC [facility] INTERNATIONAL NORM RATIO 1.1 0.9 - 1.1 [facility] Comment:INTERNATIONAL NORMAL IZED RATIO (INR) REFERENCE RANGES Reference RangeFor patients not on anticoagulant therapy: 0.9 - 1.1INR ranges for oral anticoagulanttherapy:For prevention and treatment of venous thrombosis and pulmonary embolism: 2.0 - 3.0For acute myocardial infarction with aspirin therapy: 2.0 - 3.0For acute myocardial infarction without aspirin therapy: 3.0 - 4.0For patients with mechanical prosthetic heart valves: 2.5 - 3.5 06/24/2024 1:18 PM EST 06/24/2024 1:22 PM EST [employer] External Data Provider LAB BLOOD ORDERAB LES Final Result Performing Organization Address [facility] Co de Phone Number [facility] [address] [place] [phone] * B Type Natriuretic Peptide (BNP) (06/24/2024 1:18 PM EST) B Type Natriuretic Peptide <10 <100 pg/mL [facility] Comment:For those patients w ho are being treated with Natrecor(nesiritide, recombinant BNP), BNP testing should beperformed at least two hours post treatment in order toensure that only endogenous levels of BNP are detected. 06/24/2024 1:18 PM EST 06/24/2024 1:22 PM EST us Generic External Data Provider LAB BLOOD ORDERAB LES Final Result Performing Organization Address City/[facility]/ZIP Co de Phone Number [facility] [address] [place] [phone] * Lipase (06/24/2024 1:18 PM EST) Lipase 17 8 - 78 U/L [facility] 06/24/2024 1:18 PM EST 06/24/2024 1:22 PM EST Generic External Data Provider LAB BLOOD ORDERAB LES Final Result Performing Organization Address [facility] Co de Phone Number [facility] [address] [place] [phone] * (ABNORMAL) Comprehensive Metabolic Panel (06/24/2024 1:18 PM EST) Sodium 138 135 - 145 mmol/L [facility] Potassium 3.8 3.3 - 5.1 mmol/L [facility] Chloride 106 96 - 108 mmol/L [facility] Carbon Dioxide 26 22 - 29 mmol/L [facility] Anion Gap 10(L) 12 - 20 [facility] Urea Nitrogen (BUN) 10 9 - 16 mg/dL [facility] Creatinine, Serum 0.60 0.5 - 1.4 mg/dL [facility] Creatinine Clr Calc Pharmacy 124.4 [facility] Comment:eGFR (calculated fro m the MDRD study equation) and eCrCl(calculated from the Cockcroft-Gault equation) are based ondifferent parameters and may not yield comparable results.If eCrCl result is absurd, please check patient'sheight/weight. Estimated Glomerular Filt Rate >60 [facility] Comment:Chronic Kidney Disea se: Estimated GFR < 60 mL/min/1.23s6Nqmyne Kidney Disease: Estimated GFR < 15 mL/min/1.73m2 Glucose 98 60 - 115 mg/dL [facility] Calcium 9.0 8.4 - 10.2 mg/dL [facility] Bilirubin, Total 0.2 0.0 - 1.0 mg/dL [facility] Aspartate Amino Transferase 20 5 - 37 U/L [facility] Alanine Aminotransferase 16 0 - 40 U/L [facility] Total Protein 6.9 6.5 - 8.0 g/dL [facility] Albumin Level 3.7 3.5 - 5.0 g/dL [facility] Alkaline Phosphatase 70 39 - 117 U/L [facility] 06/24/2024 1:18 PM EST 06/24/2024 1:22 PM EST us Generic External Data Provider LAB BLOOD ORDERAB LES Final Result [facility] [address] [place] [phone] [phone] * XR Chest 2 Views (06/24/2024 12:46 PM EST) Anatomical Region Laterality Modality Chest Radiographic Kailee ging 06/24/2024 12:4 6 PM EST Narrative 06/24/2024 2:33 PM EST ? [facility] ?[address] ?[place] [address] ?XRay Report ? Signed ? Patient: Vital,Augustin ?MR#: [id number] ?? [id number] ? : 1965 ?Acct:[id number] ? Age/Sex: 59 / M ?ADM Date: 06/24/24 ? Loc: HO.ED ? Attending Dr: ? Ordering Physician: Shruthi Jha ?? Date of Service: 06/24/24 ?? Procedure(s): XR chest 2V ?? Accession Number(s): [id number] ? cc: [facility]; Shruthi Jha ? EXAMINATION: ?? XR CHEST ? CLINICAL INFORMATION: ?? sob, exp wheezes ? COMPARISON: ?? cxr on 04/03/24 ? TECHNIQUE: ?? 2 views of the chest were obtained. ? FINDINGS: ?? The cardiac silhouette is normal. There is moderate emphysema. There ?? are no areas of consolidation. There are no pleural effusions or ?? pneumothoraces. The bones and soft tissues are unremarkable for the ?? patient's age. ? XR/XR chest 2V ?? IMPRESSION: ?? Moderate emphysema. ? Electronically signed by: ??Arlyn Rivera MD ??06/24/2024 02:30 PM EST ?? RP ? Dictated By: ?Arlyn Rivera MD ? Signed By: ?<Electronically signed by Arlyn Rivera MD in OV> ? 06/24/24 1430 ? DD/ 1246 ? TD/TT: 06/24/24 1305 ? Asbestos Worker: PN ? Procedure Note Hari, Image - 06/24/[address] [address] XRay Report Signed Patient: Loly Vital#: [id number] : 1965Acct:[id number] Age/Sex: 59 / MADM Date: 06/24/24 Loc: HO.ED Attending Dr: Ordering Physician: Shruthi Jha Date of Service: 06/24/24 Procedure(s): XR chest 2V Accession Number(s): [id number] cc: [facility]; Shruthi Jha EXAMINATION: XR CHEST CLINICAL INFORMATION: sob, exp wheezes COMPARISON: cxr on 04/03/24 TECHNIQUE: 2 views of the chest were obtained. FINDINGS: The cardiac silhouette is normal. There is moderate emphysema. There are no areas of consolidation. There are no pleural effusions or pneumothoraces. The bones and soft tissues are unremarkable for the patient's age. XR/XR chest 2V IMPRESSION: Moderate emphysema. Electronically signed by: Arlyn Rivera MD 06/24/2024 02:30 PM [facility] Dictated By: Arlyn Rivera MD Signed By: <Electronically signed by Arlyn Rivera MD in OV> 06/24/24 1430 DD/ 1246 TD/TT: 06/24/24 1305 Asbestos Worker: PN us [facility] External Provider IMG XR PROCEDURES Final Result * OCT, Retina - OU - Both Eyes (05/30/2024 12:07 PM EST) Narrative Tory Garcia, OD - 05/30/2024 12:07 PM EST OCT [facility] Optical Coherence Tomography Interpretation Report Reliability: OD: 54 (good) OS: 57 (good) Measurements: Foveal thickness OD: ??232 microns OS: ??233 microns Test findings: OD: Mild epiretinal membrane (ERM), normal foveal contour, all layers intact, no IRF/SRF OS: Partial PVD, normal foveal contour, all layers intact, no IRF/SRF Impression and Plan: Epiretinal membrane (ERM) right eye (OD) Partial PVD left eye (OS) Monitor in 1 year Tory Garcia OD OPHTH TOMOGRAPHY Final Result * (ABNORMAL) Hepatitis C Antibody with Reflex to HCV, RNA, Quantitative, Real- Time PCR (08/24/2023 2:22 PM EST) Hepatitis C Antibody Reactive( A) Nonreactive [facility] Comment:Presumptive evidence of antibodies to HCV. Blood Venous blood specimen / Unknown 08/24/2023 2:22 PM EST 08/24/2023 4:01 PM EST Alexander Jones MD LAB BLOOD ORDERABLES Final Resul t [facility] [address] [place] [phone] * HIV-1/2 Antigen and Antibodies, Fourth Generation, with Reflexes (08/24/2023 2:22 PM EST) HIV AB/AG Nonreactive Nonreactive [facility] Comment:HIV-1 p24 Ag and/or HIV-1/HIV-2 Ab not detected.A test result that is nonreactive does not exclude thepossibility of exposure to or infection with HIV-1 and/orHIV-2. Nonreactive results in this assay for individualswith prior exposure to HIV-1 and/or HIV-2 may be due toantigen and antibody levels that are below the limit ofdetection of this assay.The [employer] Alinity HIV Ag/Ab Combo assay result andsupplemental assay results should be interpreted inconjunction with the patient's clinical presentation,history and other laboratory results. If the results areinconsistent with clinical evidence, additional testing issuggested to confirm the result. Blood Venous blood specimen / Unknown 08/24/2023 2:22 PM EST 08/24/2023 4:01 PM EST us Alexander Jones MD LAB BLOOD ORDERABLES Final Resul t [facility] [address] [place] [address] [phone] * (ABNORMAL) LIPID PANEL, STANDARD (03/01/2021 1:31 PM EDT) Chol/HDLC Ratio 5.0(H) <5.0 (calc) [facility] Cholesterol, Total 263(H) <200 mg/dL [facility] HDL Cholesterol 53 > OR = 40 mg/dL [facility] LDL Cholesterol 192(H) mg/dL (calc) [facility] Comment: LDL-C levels > or = 190 mg/dL may indicate familial ?? hypercholesterolemia (FH). Clinical assessment and ?? measurement of blood lipid levels should be ?? considered for all first degree relatives of ?? patients with an FH diagnosis. ?? For questions about testing for familial hypercholesterolemia, please call [employer] Client Services at 1.868.GENE.INFO. Deng T, et al. J National Lipid Association ?? Recommendations for Patient-Centered Management of ?? Dyslipidemia: Part 1 Journal of Clinical Lipidology ?? 2015;9(2), 129-169. Reference range: <100 ?? Desirable range <100 mg/dL for primary prevention; ?? <70 mg/dL for patients with CHD or diabetic patients ?? with > or = 2 CHD risk factors. ?? LDL-C is now calculated using the Celestino ?? calculation, which is a validated novel method providing ?? better accuracy than the Friedewald equation in the ?? estimation of LDL-C. ?? Blas PERDOMO et al. JAJA. 2013;310(19): 1422-7212 ?? (http://education.SABIA.MemberPlanet/faq/EDF018) Non-HDL Cholesterol 210(H) <130 mg/dL (calc) [facility] Comment: For patients with diabetes plus 1 major ASCVD risk ?? factor, treating to a non-HDL-C goal of <100 mg/dL ?? (LDL-C of <70 mg/dL) is considered a therapeutic ?? option. Triglycerides 74 <150 mg/dL [facility] 03/01/2021 1:31 PM EDT Vince Avelar MD LAB BLOOD ORDERABLES Final Result [facility] [address] * Colonoscopy (01/08/2018) Colonoscopy Normal Normal 01/08/2018 Narrative Yulisa Cochran - 01/08/2018 9:39 AM EDT Recommended 10 year follow up ( per provider notes) Historical Provider HEALTH MAINTENANCE Edited Result - Final from Last 3 Months or Most Recently Relevant to Health Maintenance Insurance * Guarantor: Augustin Vital Account Type Relation to Patient Date of Phone Billing Address Personal/Family Self [address] [place] [address] C3 Member Subscriber Plan / Payer (Ef fective 2023-Present) Name:Augustin Vital Relation to Subscriber:Self Name:Augustin Vital Payer ID:Not on file Group ID:Not on file Type:Medicaid Address: [address] [address] * Guarantor: Augustin Vital Account Type Relation to Patient Date of Phone Billing Address Dental Self 1965 [address] [place] [address] [place] ADULT Member Subscriber Plan / Payer (Ef fective 2023-Present) Name:Augustin Vital Relation to Subscriber:Self Name:Augustin Vital Payer ID:Not on file Group ID:Not on file Type:Not on file Address: [address] [id number] * Guarantor: Augustin Vital Account Type Relation to Patient Date of Phone Billing Address Personal/Family Self [address] [facility] [place], [place] * Guarantor: Augustin Vital Account Type Relation to Patient Date of Phone Billing Address Personal/Family Self [address] [place], [place] * Guarantor: Augustin Vital Account Type Relation to Patient Date of Phone Billing Address Personal/Family Self [address] [place], [place] Care Teams Employment Clerk Relationship Specialty Start Date End Date Vince Lockhart MD [address] [place] [phone] PCP - General Internal Medicine 04/10/14 [facility] 12/29/23
--- OUTSIDE RECORDS SUMMARY | 2024-08-18 11:32 | XMS_ITS | Clinical Summary ---
Author Organization [facility] ity Address [address] [place] [address] Care Team Providers Care Cookie Breaker Name Role Phone Unavailable Primary Care Provider Unavailabl e Social History Tobacco Use Types Packs/Day Years Used Date Smoking Tobacco: Never Assessed Sex and Gender Information Value Date Recorded Sex Assigned at Not on file Gender Identity Not on file Sexual Orientation Not on file Plan of Treatment Health Maintenance Due Date Last Done Comments DTaP,Tdap,and Td Vaccines (1 - Tdap) 1982 Zoster Vaccines (1 of 2) 2013 Cholesterol Screening (Lipid Panel) 06/14/2022 Colorectal Cancer Screening: Colonoscopy 06/14/2022 Depression Screening 06/14/2022 HIV Screening 06/14/2022 Hepatitis C Screening 06/14/2022 Social Influencers of Health Screening 06/14/2022 COVID-19 Vaccine ( - 2023-2 5 season) 2024 Influenza Vaccine (#1) 2024 RSV Immunization Patients 60 + Years Old (1 - 1-dose 75+ series) 2038 HIB Vaccines Aged Out No longer eligi ble based on patient's age to complete this topic HPV Vaccines Aged Out No longer eligi ble based on patient's age to complete this topic Hepatitis A Vaccines Aged Out No long er eligible based on patient's age to complete this topic Hepatitis B Vaccines Aged Out No long er eligible based on patient's age to complete this topic IPV Vaccines Aged Out No longer eligi ble based on patient's age to complete this topic MMR Vaccines Aged Out No longer eligi ble based on patient's age to complete this topic Meningococcal ACWY Vaccine Aged Out N o longer eligible based on patient's age to complete this topic Pneumococcal Vaccine: Pediat rics (0 to 5 Years) and At-Risk Patients (6 to 64 Years) Aged Out No longer eligible b ased on patient's age to complete this topic RSV Immunization Patients Un dave 20 months Aged Out No longer eligible b ased on patient's age to complete this topic Varicella Vaccines Aged Out No longer eligible based on patient's age to complete this topic
--- OUTSIDE RECORDS SUMMARY | 2024-08-18 11:32 | XMS_ITS | Encounter Summary ---
Author Organization [employer] Address [address] [place] [address] Care Team Providers Care Otologist Name Role Phone Vince Lockhart MD Primary Care Provide r Encounter Details Date Type Department Care Team (Latest Contact Info) Description 07/31/2024 Travel Social History Tobacco Use Types Packs/Day [...] Description 08/21/2024 9:00 AM EST Office Visit [address] [address] Alexander Jones MD [address] [place] [phone] 08/28/2024 9:00 AM EST Office Visit [address] [address] Alexander Jones MD [address] [place] [phone] 10/29/2024 11:30 AM EDT Office Visit [address] [address] Vince Lockhart MD [address] [place] [phone] documented as of this encounter Goals Goal [...] documented as of this encounter Care Teams Otologist Relationship Specialty Start Date End Date Vince Lockhart MD [address] [place] [address] PCP - General Internal Medicine 04/10/14 [facility] [place] 12/29/23 documented as of this encounter
--- OUTSIDE RECORDS SUMMARY | 2024-08-18 11:32 | XMS_ITS | Encounter Summary ---
Author Organization [employer] Address [address] [facility] [address] [place] [address] Care Team Providers Care Director Of Religious Life Name Role Phone Vince Lockhart MD Primary Care Provide r Reason for Visit * Reason Comments Care Coordination CHW outreach for SDO H PT-1 and food needs-referral completed Encounter Details Date Type Department Care Team (Latest Contact Info) Description 07/24/2024 Patient Outreach [facility] [address] [place] [address] Vince Lockhart MD [address] [place] [address] Care Coordination (CHW outreach for SDOH PT-1 and food needs-referral completed /) Social History Tobacco Use Types Packs/Day Years [...] the past 12 months, has t he [employer], gas, oil or water Clean Runner threatened to shut off services in your [...] as of this encounter Progress Notes * Ramon Olmos - 07/24/2024 9:54 AM EST CHW Ramon Olmos, placed outbound call to patient for assistance with SDOH as a referral was received by the provider. Patient's name and were confirmed. Patient screened positive for the following SDOH food insecurities. CHW referral patient to the local list of pantries in the area for help. PT-1 requested was send out in behalf of patient for futures appt. Patient verbalizes understandin g, and able to agree with plan to follow up. Patient educated on extended clinic hours on Mondays through Wednesdays, and Walk-In Urgent Care Located in [facility]. Patient provided with after-hours line for [facility], , which offer night time triage service and option to transfer to shipbuilding draftsperson provider if needed. documented in this encounter Plan of Treatment Upcoming Encounters Date Type Department Care Team (Late st Contact Info) Description 08/21/2024 9:00 AM EST Office Visit [facility] [place] [address] Alexander Jones [facility] [place] [address] 08/28/2024 9:00 AM EST Office Visit [facility] [address] [place], [place] [phone] [place] [address] 10/29/2024 11:30 AM EDT Office Visit [facility] [place] [phone] [place] [address] documented as of this encounter Goals Goal [...] documented as of this encounter Care Teams Director Of Religious Life Relationship Specialty Start Date End Date [place] [address] PCP - General Internal Medicine 04/10/14 [facility] 12/29/23 documented as of this encounter
--- OUTSIDE RECORDS SUMMARY | 2024-08-18 11:34 | XMS_ITS | Encounter Summary ---
Author Organization [employer] Address 75 [facility] 7t [place] [address] Care Team Providers Care Insulation Board Calender Operator Name Role Phone Vince Lockhart MD Primary Care Provide r Reason for Visit * Reason Onset Date Comments Med Refill 07/19/2024 Encounter Details Date Type Department Care Team (Late st Contact Info) Description 07/19/2024 Refill [facility] MEDICINE [address] [place] [address] Georgina Ann, GUERO Uncomplicated opioid dependence (CMS/HCC) [...] Description 08/21/2024 9:00 AM EST Office Visit [address] [address] Alexander Jones MD [address] [place] [address] 08/28/2024 9:00 AM EST Office Visit [address] [address] Alexander Jones MD [address] [place] [address] 10/29/2024 11:30 AM EDT Office Visit [address] [address] Vince Lockhart MD [address] [place] [address] documented as of this encounter Goals Goal Patient Goal Type Associated Problems Recent Progress Patient-Stated? Author Patient will adhere to medication regimen General Osiel Vargas, MayetD Note: Difficulty with taking medications daily due to no desire documented as of this encounter Visit Diagnoses Diagnosis Uncomplicated opioid dependence (CMS/HCC) documented in this encounter Additional Health Concerns Assessment Noted Time PHQ-9 Depression Total Score: 4 07/02/20 10:58 AM EST documented as of this encounter Care Teams Insulation Board Calender Operator Relationship Specialty Start Date End Date Vince Lockhart MD 230 [place] [address] PCP - General Internal Medicine 04/10/14 [facility] 12/29/23 documented as of this encounter
--- OUTSIDE RECORDS SUMMARY | 2024-08-18 11:34 | XMS_ITS | Encounter Summary ---
Author Organization [employer] Address [address] [facility] 7t [place] [address] Care Team Providers Care Piano Refinisher Name Role Phone Vince Lockhart MD Primary Care Provide r Reason for Visit * Reason Onset Date Comments PT-1 07/01/2024 Encounter Details Date Type Department Care Team ([facility] st Contact Info) Description 07/01/[address] [facility] MEDICINE 230 [place], [place] [phone] Vince Lockhart MD 230 [place], [place] [phone] PT-1 Social History Tobacco Use Types Packs/Day Years [...] encounter Miscellaneous Notes * Telephone Encounter - Som Alford - 07/01/2024 3:20 PM EST Patient calling requesting PT1 Home Address verified: Y/N: Yes Provider name or facility name: [facility] Address: [address] [place] [address] Escort needed: Y/N: No Do you have a wheelchair: Y/N: No If yes- Manual or electric: N/A Visits: 1 every 3 months documented in this encounter Plan of Treatment Upcoming Encounters Date Type Department Care Team (Late st Contact Info) Description 08/21/2024 9:00 AM EST Office Visit [facility] MEDICINE [address] [place] [address] Alexander Jones MD [address] [place] [address] 08/28/2024 9:00 AM EST Office Visit [facility] [address] [place] [address] Alexander Jones MD 230 [place] [address] 10/29/2024 11:30 AM EDT Office Visit [facility] [address] [place], [place] [phone] Vince Lockhart MD [address] [place], [place] [phone] documented as of this encounter Goals Goal Patient Goal Type Associated Problems Recent Progress Patient-Stated? Author Patient will adhere to medication regimen General Osiel Vargas, MayteD Note: Difficulty with taking medications daily due to no desire documented as of this encounter Visit Diagnoses Not on filedocumented in this encounter Additional Health Concerns Assessment Noted Time PHQ-9 Depression Total Score: 26 05/16/ 023 2:35 PM EDT documented as of this encounter Care Teams Piano Refinisher Relationship Specialty Start Date End Date Vince Lockhart MD [address] [place] [address] PCP - General Internal Medicine 04/10/14 [facility] [place] 12/29/23 documented as of this encounter
== END 2024-08-18 11:27 | disposition home or self-care (01) ==
LOC: HO.MRI 11:26
PROVIDERS: PCP Internal Medicine; Visit Provider Internal Medicine
DX: M54.50 Low back pain, unspecified (principal); G89.29 Other chronic pain
CPT/HCPCS: 72148

== ENCOUNTER 2024-08-21 08:59 | Outpatient (REF) | payer MEDICAID, SELFPAY ==
--- OUTSIDE RECORDS SUMMARY | 2024-08-21 09:18 | XMS_ITS | Encounter Summary ---
Author Organization [employer] Address 75 [facility] 7t [place] [address] Care Team Providers Care Agricultural Engineering Technologist Name Role Phone Vince Lockhart MD Primary Care Provide r Reason for Visit * Reason Onset Date Comments Med Refill 08/14/2024 Encounter Details Date Type Department Care Team (Late st Contact Info) Description 08/14/[address] [facility] MEDICINE 230 [place] [address] Georgina Ann, GUERO Uncomplicated opioid dependence (CMS/HCC) [...] Care Team (Late st Contact Info) Description 08/28/2024 9:00 AM EST Office Visit [address] [address] Alexander Jones MD [address] [place] [address] 10/29/2024 11:30 AM EDT Office Visit [address] [address] Vince Lockhart MD [address] [place] [address] documented as of this encounter Goals Goal [...] documented as of this encounter Care Teams Agricultural Engineering Technologist Relationship Specialty Start Date End Date Vince Lockhart MD 230 [place] [address] PCP - General Internal Medicine 04/10/14 [facility] [place] 12/29/23 documented as of this encounter
--- OUTSIDE RECORDS SUMMARY | 2024-08-21 09:18 | XMS_ITS | Encounter Summary ---
Author Organization [employer] Address [address] [facility] [address] 7t [place] [address] Care Team Providers Care Garbage Man Name Role Phone Vince Lockhart MD Primary Care Provide r Encounter Details Date Type Department Care Team ([facility] st Contact Info) Description 08/02/2024 Telephone [facility] MEDICINE 230 [place] [address] Georgina Ann RN Social History Tobacco Use [...] know about the extra 4 mg. Called [facility] and they will send both the 8 mg (two) and 4 mg next week on . documented in this encounter Plan of Treatment Upcoming Encounters Date Type Department Care Team (Late st Contact Info) Description 08/28/2024 9:00 AM EST Office Visit [facility] MEDICINE [address] [place] [address] Alexander Jones MD [address] [place] [address] 10/29/2024 11:30 AM EDT Office Visit [facility] MEDICINE [address] [place] [address] Vince Lockhart MD [address] [place] [address] documented as of this encounter Goals Goal [...] documented as of this encounter Care Teams Garbage Man Relationship Specialty Start Date End Date Vince Lockhart MD [address] [place] [address] PCP - General Internal Medicine 04/10/14 [facility] 12/29/23 documented as of this encounter
--- OUTSIDE RECORDS SUMMARY | 2024-08-21 09:18 | XMS_ITS | Encounter Summary ---
Author Organization [employer] Address [address] [facility] [place] [facility] [address] 7t [place] [address] Care Team Providers Care Disease Case Manager Rn Name Role Phone Vince Lockhart MD Primary Care Provide r Encounter Details Date Type Department Care Team ([facility] st Contact Info) Description 08/01/[address] [facility] 230 [place], [place] [phone] Alexander Jones MD 230 [place] [address] Social History Tobacco Use Types Packs/Day Years [...] Description 08/28/2024 9:00 AM EST Office Visit [address] [address] Alexander Jones MD [address] [place] [address] 10/29/2024 11:30 AM EDT Office Visit [address] [address] Vince Lockhart MD [address] [place] [address] documented as of this encounter Goals Goal [...] documented as of this encounter Care Teams Disease Case Manager Rn Relationship Specialty Start Date End Date Vince Lockhart MD [address] [place] [address] PCP - General Internal Medicine 04/10/14 [facility] 12/29/23 documented as of this encounter
--- OUTSIDE RECORDS SUMMARY | 2024-08-21 09:18 | XMS_ITS | Encounter Summary ---
Author Organization [employer] Address [address] [facility] [address] 7t [place] [address] Care Team Providers Care Firewood Cutter Name Role Phone Vince Lockhart MD Primary [...] Description 08/28/2024 9:00 AM EST Office Visit [facility] MEDICINE [address] [place] [address] Alexander Jones MD [address] [place] [address] 10/29/2024 11:30 AM EDT Office Visit [address] [address] Vince Lockhart MD [address] [place] [address] documented as of this encounter Goals Goal [...] documented as of this encounter Care Teams Firewood Cutter Relationship Specialty Start Date End Date Vince Lockhart MD [address] [place] [address] PCP - General Internal Medicine 04/10/14 [facility] [place] 12/29/23 documented as of this encounter
--- OUTSIDE RECORDS SUMMARY | 2024-08-21 09:18 | XMS_ITS | Encounter Summary ---
Author Organization [employer] Address 75 [facility] 7t [place] [address] Care Team Providers Care Base Cloth Inspector Name Role Phone Vince Lockhart MD Primary Care Provide r Reason for Visit * Reason Onset Date Comments Med Refill 07/31/2024 Encounter Details Date Type Department Care Team (Late st Contact Info) Description 07/31/2024 Refill [facility] MEDICINE 230 [place], [place] [phone] Rashaun Vila, GUERO 230 [place] [address] Social History Tobacco Use Types Packs/Day Years [...] Description 08/28/2024 9:00 AM EST Office Visit [address] [address] Alexander Jones MD [address] [place] [address] 10/29/2024 11:30 AM EDT Office Visit [address] [address] Vince Lockhart MD [address] [place] [address] documented as of this encounter Goals Goal [...] documented as of this encounter Care Teams Base Cloth Inspector Relationship Specialty Start Date End Date Vince Lockhart MD [address] [place] [address] PCP - General Internal Medicine 04/10/14 [facility] [place] 12/29/23 documented as of this encounter
--- OUTSIDE RECORDS SUMMARY | 2024-08-21 09:18 | XMS_ITS | Encounter Summary ---
Author Organization [employer] Address 75 [facility] 7t [place] [address] Care Team Providers Care Legal Aid Name Role Phone Vince Lockhart MD Primary Care Provide r Reason for Visit * Reason Comments Recovery Supports Encounter Details Date Type Department Care Team (Late st Contact Info) Description 08/14/2024 Patient Outreach [facility] MEDICINE 230 [place] [address] Trenton Holloway Recovery Supports Social History Tobacco [...] with Augustin strange. Setting: in person at [facility] Recovery Wellness Goals worked on: Social Stability Action taken/next steps: Attended recovery support group and Offered person centered recovery support Additional comments: CHRISTINE Holloway documented in this encounter Plan of Treatment Upcoming Encounters Date Type Department Care Team (Late st Contact Info) Description 08/28/2024 9:00 AM EST Office Visit [facility] MEDICINE [address] [place] [address] Alexander Jones MD [address] [place] [address] 10/29/2024 11:30 AM EDT Office Visit [address] [address] Vince Lockhart MD [address] [place] [address] documented as of this encounter Goals Goal [...] documented as of this encounter Care Teams Legal Aid Relationship Specialty Start Date End Date Vince Lockhart MD [address] [place] [address] PCP - General Internal Medicine 04/10/14 [facility] 12/29/23 documented as of this encounter
--- OUTSIDE RECORDS SUMMARY | 2024-08-21 09:18 | XMS_ITS | Encounter Summary ---
Author Organization [employer] Address 75 [facility] 7t [place] [address] Care Team Providers Care Counterintelligence/Humint Specialist Name Role Phone Vince Lockhart MD Primary Care Provide r Reason for Visit * Reason Comments GBAT Encounter Details Date Type Department Care Team (Latest Contact Info) Description 08/07/2024 9:00 AM EST Office Visit [facility] MEDICINE 230 [place], [place] [phone] Alexander Jones MD 230 [place], [place] [phone] Uncomplicated opioid dependence (CMS/HCC) (Primary Dx) Social [...] 3 adult children (1 killed; 1 in assisted in [place]) Last LFT (04/03/2024) LAST GBAT VISIT : [...] at the visit: Team RN, MAT Physician, Derrick Boat Operator, Clinician, and Record Center Coordinator Opportunities provided to address individual medical/medication/ concerns [...] orders for this visit: Uncomplicated opioid dependence ([facility]) (Primary) - POCT MARIA ANTONIA-14 Urine Drug [...] Description 08/28/2024 9:00 AM EST Office Visit [address] [address] Alexander Jones MD [address] [place] [address] 10/29/2024 11:30 AM EDT Office Visit [address] [phone] Vince Lockhart MD [address] [place] [address] documented as of this encounter Goals Goal Patient Goal Type Associated Problems Recent Progress Patient-Stated? Author Patient will adhere to medication regimen General Osiel Vargas, MayteD Note: Difficulty with taking medications daily due to no desire documented as of this encounter Procedures Procedure Name Priority Date/Time Associated Diagnosis Comments POCT MARIA ANTONIA-14 URINE DRUG SCREEN Routine 08/07/2024 9:10 AM EST Uncomplicated opioid dependence ([facility]) documented in this encounter Results * POCT [...] documented as of this encounter Care Teams Counterintelligence/Humint Specialist Relationship Specialty Start Date End Date Vince Lockhart MD [address] [place] [address] PCP - General Internal Medicine 04/10/14 [facility] 12/29/23 documented as of this encounter
--- OUTSIDE RECORDS SUMMARY | 2024-08-21 09:19 | XMS_ITS | Encounter Summary ---
Author Organization [employer] Address [address] [facility] [address] 7t [place] [address] Care Team Providers Care Blueprint Assembler Name Role Phone Vince Lockhart MD [...] Description 08/28/2024 9:00 AM EST Office Visit [facility] MEDICINE [address] [place] [address] Alexander Jones MD [address] [place] [address] 10/29/2024 11:30 AM EDT Office Visit [address] [address] Vince Lockhart MD [address] [place] [address] documented as of this encounter Goals Goal [...] documented as of this encounter Care Teams Blueprint Assembler Relationship Specialty Start Date End Date Vince Lockhart MD [address] [place] [address] PCP - General Internal Medicine 04/10/14 [facility] 12/29/23 documented as of this encounter
--- OUTSIDE RECORDS SUMMARY | 2024-08-21 09:19 | XMS_ITS | Encounter Summary ---
Author Organization [employer] Address 75 [facility] 7t [place] [address] Care Team Providers Care Coil Builder Name Role Phone Vince Lockhart MD Primary Care Provide r Reason for Visit * Reason Comments Med Refill Encounter Details Date Type Department Care Team ([facility] st Contact Info) Description 08/08/2024 Refill [facility] MEDICINE 230 [place], [place] [phone] Vince Lockhart MD 230 [place], [place] [phone] Social History Tobacco Use Types Packs/Day Years [...] Description 08/28/2024 9:00 AM EST Office Visit [address] [address] Alexander Jones MD [address] [place] [address] 10/29/2024 11:30 AM EDT Office Visit [address] [address] Vince Lockhart MD [address] [place] [address] documented as of this encounter Goals Goal [...] documented as of this encounter Care Teams Coil Builder Relationship Specialty Start Date End Date Vince Lockhart MD 230 [place] [address] PCP - General Internal Medicine 04/10/14 [facility] 12/29/23 documented as of this encounter
--- OUTSIDE RECORDS SUMMARY | 2024-08-21 09:19 | XMS_ITS | Encounter Summary ---
Author Organization [employer] Address 75 [facility] 7t [place] [address] Care Team Providers Care Appliance Worker Name Role Phone Vince Lockhart MD Primary Care Provide r Osiel Mendez PharmD Unavailable [phone] Reason for Visit * Reason Comments Med Refill Encounter Details Date Type Department Care Team (Late st Contact Info) Description 03/01/2023 Refill [facility] MEDICINE 230 [place], [place] [phone] Vince Lockhart MD 230 [place], [place] [phone] Depressive disorder Social History Tobacco Use Types [...] [facility] documented in this encounter Plan of Treatment Upcoming Encounters Date Type Department Care Team (Late st Contact Info) Description 08/28/2024 9:00 AM EST Office Visit [facility] MEDICINE [address] [place] [address] [phone] Alexander Jones MD 230 [place], [place] [phone] 10/29/2024 11:30 AM EDT Office Visit [facility] MEDICINE [address] [place] [address] [phone] Vince Lockhart MD [address] [place] [address] [phone] documented as of this encounter Goals Goal [...] documented as of this encounter Care Teams Appliance Worker Relationship Specialty Start Date End Date Vince Lockhart MD [address] [place] [address] PCP - General Internal Medicine 04/10/14 Osiel Mendez PharmD [address] [place] [address] Pharmacist Internal Medicine 12/19/22 06/11/23 [facility] 12/29/23 documented as of this encounter
--- OUTSIDE RECORDS SUMMARY | 2024-08-21 09:19 | XMS_ITS | Encounter Summary ---
Author Organization [employer] Address [address] [facility] [address] 7t [place] [address] Care Team Providers Care Elementary Classroom Teacher Name Role Phone Vince Lockhart MD Primary Care Provide r Encounter Details Date Type Department Care Team ([facility] st Contact Info) Description 08/07/2024 Telephone [facility] MEDICINE 230 [place] [address] Georgina Ann RN Social History Tobacco Use [...] GUERO Smith applied for pt1 every Monday. Gneeva said thatAugustin is not going to his day program. She said his ex- has moved in, and appears to not be agood influence on him. Alerting team members so that we can check in with him more regularly. documented in this encounter Plan of Treatment Upcoming Encounters Date Type Department Care Team (Late st Contact Info) Description 08/28/2024 9:00 AM EST Office Visit [facility] MEDICINE 230 [place] [address] Alexander Jones MD 230 [place] [address] 10/29/2024 11:30 AM EDT Office Visit [facility] 230 [facility] [place] [address] [place] [address] documented as of this encounter Goals Goal [...] as of this encounter Care Teams Elementary Classroom Teacher Relationship Specialty Start Date End Date [place] [address] PCP - General Internal Medicine 04/10/14 [facility] 12/29/23 documented as of this encounter
--- OUTSIDE RECORDS SUMMARY | 2024-08-21 09:19 | XMS_ITS | Encounter Summary ---
Author Organization [employer] Address 75 [facility] 7t [place] [address] Care Team Providers Care Life Cycle Assessment Analyst Name Role Phone Vince Lockhart MD Primary Care Provide r Reason for Visit * Reason Onset Date Comments Med Refill 08/07/2024 Encounter Details Date Type Department Care Team (Late st Contact Info) Description 08/07/2024 Refill [facility] MEDICINE 230 [place] [address] Georgina Ann, GUERO Uncomplicated opioid dependence (CMS/HCC) [...] Description 08/28/2024 9:00 AM EST Office Visit [address] [address] Alexander Jones MD [address] [place] [address] 10/29/2024 11:30 AM EDT Office Visit [address] [address] Vince Lockhart MD [address] [place] [address] documented as of this encounter Goals Goal [...] documented as of this encounter Care Teams Life Cycle Assessment Analyst Relationship Specialty Start Date End Date Vince Lockhart MD 230 [place] [address] PCP - General Internal Medicine 04/10/14 [facility] 12/29/23 documented as of this encounter
--- OUTSIDE RECORDS SUMMARY | 2024-08-21 09:19 | XMS_ITS | Encounter Summary ---
Author Organization [employer] Address 75 [facility] 7t [place] [address] Care Team Providers Care Vigoureux Printer Name Role Phone Vince Lockhart MD Primary Care Provide r Reason for Visit * Reason Comments GBAT Encounter Details Date Type Department Care Team (Latest Contact Info) Description 08/14/2024 9:00 AM EST Office Visit [facility] MEDICINE 230 [place], [place] [phone] Alexander Jones MD [address] [place], [place] [phone] Uncomplicated opioid dependence (CMS/HCC) (Primary Dx) Social [...] 3 adult children (1 killed; [address] in jail in [place]) Last LFT (04/03/2024) LAST GBAT VISIT 08/07/2024 [...] at the visit: Team RN, MAT Physician, Cartridge Loader, Clinician, and Hydrogen Operator Opportunities provided to address individual medical/medication/ concerns [...] at the visit: Team RN, MAT Physician, Cartridge Loader, Clinician, and Hydrogen Operator Opportunities provided to address individual medical/medication/ concerns [...] orders for this visit: Uncomplicated opioid dependence ([facility]) (Primary) - POCT MARIA ANTONIA-14 Urine Drug [...] Description 08/28/2024 9:00 AM EST Office Visit [address] [address] Alexander Jones MD [address] [place] [address] 10/29/2024 11:30 AM EDT Office Visit [facility] MEDICINE [address] [place] [address] [phone] Vince Lockhart MD [address] [place] [address] documented as of this encounter Goals Goal Patient Goal Type Associated Problems Recent Progress Patient-Stated? Author Patient will adhere to medication regimen Osiel Conley, Castro Note: Difficulty with taking medications daily due to no desire documented as of this encounter Procedures Procedure Name Priority Date/Time Associated Diagnosis Comments POCT MARIA ANTONIA-14 URINE DRUG SCREEN Routine 08/14/2024 8:56 AM EST Uncomplicated opioid dependence ([facility]) documented in this encounter Results * POCT [...] documented as of this encounter Care Teams Vigoureux Printer Relationship Specialty Start Date End Date Vince Lockhart MD [address] [place] [address] PCP - General Internal Medicine 04/10/14 [facility] 12/29/23 documented as of this encounter
--- OUTSIDE RECORDS SUMMARY | 2024-08-21 09:19 | XMS_ITS | Encounter Summary ---
Author Organization [employer] Address 75 [facility] 7t [place] [address] Care Team Providers Care Well Puller Name Role Phone Vince Lockhart MD Primary Care Provide r Osiel Mendez PharmD Unavailable [phone] Reason for Visit * Reason Onset Date Comments Med Refill 12/06/2022 Encounter Details Date Type Department Care Team (Late st Contact Info) Description 12/06/2022 Telephone [facility] MEDICINE 230 [place], [place] [phone] Vince Lockhart MD 230 [place], [place] [phone] Med Refill Social History Tobacco Use Types [...] 08/28/2024 9:00 AM EST Office Visit [address] [address] Alexander Jones MD [address] [place] [address] 10/29/2024 11:30 AM EDT Office Visit [address] [address] Vince Lockhart MD [address] [place] [address] [phone] documented as of this encounter Goals Goal Patient Goal Type Associated Problems Recent Progress Patient-Stated? Author Patient will adhere to medication regimen General No Osiel Mendez, Castro Note: Difficulty with taking medications daily due to no desire documented as of this encounter Visit Diagnoses Not on filedocumented in this encounter Care Teams Well Puller Relationship Specialty Start Date End Date Vince Lockhart MD [address] [place] [address] PCP - General Internal Medicine 04/10/14 Osiel Mendez, Castro [address] [place] [address] Pharmacist Internal Medicine 12/19/22 06/11/23 [facility] 12/29/23 documented as of this encounter
--- OUTSIDE RECORDS SUMMARY | 2024-08-21 09:19 | XMS_ITS | Encounter Summary ---
Author Organization [employer] Address 75 [facility] 7t [place] [address] Care Team Providers Care Boat Joiner Name Role Phone Vince Lockhart MD Primary Care Provide r Osiel Mendez PharmD Unavailable [phone] Encounter Details Date Type Department Care Team ([facility] st Contact Info) Description 03/01/2023 Telephone [facility] MEDICINE 230 [place], [place] [phone] Vince Lockhart MD 230 [place], [place] [phone] Social History Tobacco Use Types Packs/Day Years [...] 10:37 AM EDT Tc from [place] with [facility] requesting a call from a nurse in regards to having conflict with another agency. Please contact wilson at [phone] documented in this encounter Plan of Treatment Upcoming Encounters Date Type Department Care Team (Late st Contact Info) Description 08/28/2024 9:00 AM EST Office Visit [address] [phone] Alexander Jones MD 230 [place] [address] 10/29/2024 11:30 AM EDT Office Visit [facility] 230 [place] [address] Vince Lockhart MD [address] [place] [address] documented as of this encounter Goals Goal [...] documented as of this encounter Care Teams Boat Joiner Relationship Specialty Start Date End Date Vince Lockhart MD [address] [place] [address] PCP - General Internal Medicine 04/10/14 Osiel Mendez, PharmD [address] [place] [address] Pharmacist Internal Medicine 12/19/22 06/11/23 [facility] 12/29/23 documented as of this encounter
--- OUTSIDE RECORDS SUMMARY | 2024-08-21 09:19 | XMS_ITS | Encounter Summary ---
Author Organization [employer] Address 75 [facility] 7t [place] [address] Care Team Providers Care Strategic Communications Specialist Name Role Phone Vince Lockhart MD Primary Care Provide r Osiel Mendez PharmD Unavailable [phone] Encounter Details Date Type Department Care Team (Late st Contact Info) Description 01/12/2023 Abstract [facility] MEDICINE 230 [place], [place] [phone] Vince Lockhart MD 230 [place], [place] [phone] Social History Tobacco Use Types Packs/Day Years [...] Description 08/28/2024 9:00 AM EST Office Visit [address] [place] [address] [address] Alexander Jones MD [address] [place] [address] 10/29/2024 11:30 AM EDT Office Visit [address] [place] [address] [address] Vince Lockhart MD [address] [place] [address] documented as of this encounter Goals Goal [...] documented as of this encounter Care Teams Strategic Communications Specialist Relationship Specialty Start Date End Date Vince Lockhart MD [address] [place] [address] PCP - General Internal Medicine 04/10/14 Osiel Mendez, Castro [address] [place] [address] Pharmacist Internal Medicine 12/19/22 06/11/23 [facility] 12/29/23 documented as of this encounter
--- OUTSIDE RECORDS SUMMARY | 2024-08-21 09:19 | XMS_ITS | Encounter Summary ---
Author Organization [employer] Address 75 [facility] 7t [place] [address] Care Team Providers Care Track Dresser Name Role Phone Vince Lockhart MD Primary Care Provide r Encounter Details Date Type Department Care Team ([facility] st Contact Info) Description 06/19/2023 Telephone [facility] MEDICINE 230 [place], [place] [phone] Vince Lockhart MD 230 [place], [place] [phone] Social History Tobacco Use Types Packs/Day Years [...] Description 08/28/2024 9:00 AM EST Office Visit [address] [address] Alexander Jones MD [address] [place] [address] 10/29/2024 11:30 AM EDT Office Visit [address] [address] Vince Lockhart MD [address] [place] [address] documented as of this encounter Goals Goal [...] documented as of this encounter Care Teams Track Dresser Relationship Specialty Start Date End Date Vince Lockhart MD [address] [place] [address] PCP - General Internal Medicine 04/10/14 [facility] 12/29/23 documented as of this encounter
--- OUTSIDE RECORDS SUMMARY | 2024-08-21 09:20 | XMS_ITS | Encounter Summary ---
Author Organization [employer] Address [address] [facility] [address] 7t [place] [address] Care Team Providers Care Reference Library Assistant Name Role Phone Vince Lockhart MD Primary Care Provide r Encounter Details Date Type Department Care Team (Latest Contact Info) Description 08/21/2024 Travel Social History Tobacco Use Types Packs/Day [...] Description 08/28/2024 9:00 AM EST Office Visit [facility] [address] [place] [address] Alexander Jones MD [address] [place] [address] 10/29/2024 11:30 AM EDT Office Visit [address] [address] Vince Lockhart MD [address] [place] [address] documented as of this encounter Goals Goal [...] documented as of this encounter Care Teams Reference Library Assistant Relationship Specialty Start Date End Date Vince Lockhart MD [address] [place] [address] PCP - General Internal Medicine 04/10/14 [facility] 12/29/23 documented as of this encounter
--- OUTSIDE RECORDS SUMMARY | 2024-08-21 09:20 | XMS_ITS | Encounter Summary ---
Author Organization [employer] Address 75 [facility] 7t [place] [address] Care Team Providers Care Welder Journeyman Name Role Phone Vince Lockhart MD Primary Care Provide r Osiel Mendez PharmD Unavailable [phone] Encounter Details Date Type Department Care Team (Late Contact Info) Description 11/24/2022 Abstract [facility] MEDICINE [address] [place] [address] Vince Lockhart MD 230 [place], [place] [phone] Social History Tobacco Use Types Packs/Day Years [...] Description 08/28/2024 9:00 AM EST Office Visit [facility] MEDICINE 230 [place], [place] [phone] Alexander Jones MD [address] [place] [address] [place] [address] 10/29/2024 11:30 AM EDT Office Visit [facility] [place] [place] [phone] [place] [address] documented as of this encounter Procedures Procedure Name Priority Date/Time Associated Diagnosis Comments COLONOSCOPY Routine 01/08/2018 documented in this encounter Results * Colonoscopy (01/08/2018) Colonoscopy Normal Normal 01/08/2018 Narrative Sammie Yulisa - 01/08/2018 9:39 AM EDT Recommended 10 year follow up ( per provider notes) Historical Provider [email or web address] [facility] Edited Result - Final documented in this encounter Visit Diagnoses Not on filedocumented in this encounter Care Teams Welder Journeyman Relationship Specialty Start Date End Date Vince Lockhart MD [facility] [place], [place] [phone] PCP - General Internal Medicine 04/10/14 Osiel Mendez PharmD [address] [place] [address] Pharmacist Internal Medicine 12/19/22 06/11/23 [facility] 12/29/23 documented as of this encounter
--- OUTSIDE RECORDS SUMMARY | 2024-08-21 09:20 | XMS_ITS | Encounter Summary ---
Author Organization [employer] Address 75 [facility] 7t [place] [address] Care Team Providers Care Concrete Bucket Loader Name Role Phone Vince Lockhart MD Primary Care Provide r Osiel Mendez PharmD Unavailable [phone] Reason for Visit * Reason Comments Med Refill Encounter Details Date Type Department Care Team ([facility] Contact Info) Description 10/07/2022 Refill [facility] MEDICINE 230 [place] [address] Vince Lockhart MD 230 [place], [place] [phone] Depressive disorder Social History Tobacco Use Types [...] Department Care Team (Late Contact Info) Description 08/28/2024 9:00 AM EST Office Visit [facility] MEDICINE 230 [place] [address] Alexander Jones MD [facility] [place] [address] 10/29/2024 11:30 AM EDT Office Visit [facility] MEDICINE [facility] [place] [address] Vince Lockhart MD [facility] [place] [address] documented as of this encounter Visit Diagnoses Diagnosis Depressive disorder Depressive disorder, not elsewhere classified documented in this encounter Care Teams Concrete Bucket Loader Relationship Specialty Start Date End Date Vince Lockhart MD [facility] [place] [address] PCP - General Internal Medicine 04/10/14 Osiel Mendez, MayteD [address] [place] [address] Pharmacist Internal Medicine 12/19/22 06/11/23 [facility] 12/29/23 documented as of this encounter
--- OUTSIDE RECORDS SUMMARY | 2024-08-21 09:20 | XMS_ITS | Encounter Summary ---
Author Organization [employer] Address 75 [facility] 7t [place] [address] Care Team Providers Care Video News Editor Name Role Phone Vince Lockhart MD Primary Care Provide r Osiel Mendez PharmD Unavailable [phone] Reason for Visit * Reason Onset Date Comments Appointment Request 10/12/2022 Encounter Details Date Type Department Care Team ([facility] st Contact Info) Description 10/12/2022 Telephone [facility] MEDICINE 230 [place], [place] [phone] Vince Lockhart MD 230 [place], [place] [phone] Appointment Request Social History Tobacco Use Types [...] appt scheduled for 09/13/[address] Hdz, Laser Cutter unsure whoto book appt per PCP scheduled for October, Please contact at [phone] [place] documented in this encounter Plan of Treatment Upcoming Encounters Date Type Department Care Team (Late st Contact Info) Description 08/28/2024 9:00 AM EST Office Visit [facility] MEDICINE [address] [place] [address] Alexander Jones MD [address] [place] [address] 10/29/2024 11:30 AM EDT Office Visit [facility] [address] [place] [address] [place] [address] Vince Lockhart MD 230 [place] [address] documented as of this encounter Goals Goal Patient Goal Type Associated Problems Recent Progress Patient-Stated? Author Patient will adhere to medication regimen General No Osiel Mendez, PharmD Note: Difficulty with taking medications daily due to no desire documented as of this encounter Visit Diagnoses Not on filedocumented in this encounter Care Teams Video News Editor Relationship Specialty Start Date End Date Vince Lockhart MD [address] [place] [address] PCP - General Internal Medicine 04/10/14 Osiel Mendez, PharmD [address] [place] [address] Pharmacist Internal Medicine 12/19/22 06/11/23 [facility] 12/29/23 documented as of this encounter
--- OUTSIDE RECORDS SUMMARY | 2024-08-21 09:20 | XMS_ITS | Encounter Summary ---
Author Organization [employer] Address 75 [facility] 7t [place] [address] Care Team Providers Care Stencil Printer Name Role Phone Vince Lockhart MD Primary Care Provide r Osiel Mendez PharmD Unavailable [phone] Reason for Visit * Reason Onset Date Comments Med Refill 05/16/2023 Encounter Details Date Type Department Care Team ([facility] st Contact Info) Description 05/16/2023 Telephone [facility] MEDICINE 230 [place], [place] [phone] Vince Lockhart MD 230 [place], [place] [phone] Med Refill Social History Tobacco Use Types [...] the past 12 months, has t he [employer], gas, oil or water [employer] threatened to shut off services in your [...] - 05/16/2023 12:54 PM EDT Tc from [facility] requesting med refill on; clonazePAM (KlonoPIN) 0.5 MG tablet documented in this encounter Plan of Treatment Upcoming Encounters Date Type Department Care Team (Late st Contact Info) Description 08/28/2024 9:00 AM EST Office Visit [facility] MEDICINE [address] [place] [address] Alexander Jones MD [address] [place] [address] 10/29/2024 11:30 AM EDT Office Visit [facility] MEDICINE [address] [place] [address] [phone] Vince Lockhart MD [address] [place] [address] documented as of this encounter Goals Goal [...] documented as of this encounter Care Teams Stencil Printer Relationship Specialty Start Date End Date Vince Lockhart MD 230 [place] [address] PCP - General Internal Medicine 04/10/14 Osiel Mendez, MayteD 230 [place] [address] Pharmacist Internal Medicine 12/19/22 06/11/23 [facility] 12/29/23 documented as of this encounter
--- OUTSIDE RECORDS SUMMARY | 2024-08-21 09:20 | XMS_ITS | Encounter Summary ---
Author Organization [employer] Address 75 [facility] 7t [place] [address] Care Team Providers Care Phonograph Mechanic Name Role Phone Vince Lockhart MD Primary Care Provide r Osiel Mendez PharmD Unavailable [phone] Reason for Visit * Reason Onset Date Comments PT1 05/03/2023 Encounter Details Date Type Department Care Team ([facility] st Contact Info) Description 05/03/2023 Telephone [facility] MEDICINE 230 [place], [place] [phone] Vince Lockhart MD 230 [place], [place] [phone] PT1 Social History Tobacco Use Types Packs/Day [...] requesting a PT1 for Pt. Please contact gresham if PT1 has been approved or denied Date: 05/08 Time: 11:30 am Visits: n/a Address: [address] [place] [address] [facility] Wheel Chair: no Frame Stylist Needed: no pressure supervisor location confirmed: [address] [place] [address] documented in this encounter Plan of Treatment Upcoming Encounters Date Type Department Care Team (Late st Contact Info) Description 08/28/2024 9:00 AM EST Office Visit [facility] MEDICINE 230 [place] [address] Alexander Jones MD 230 [place] [address] 10/29/2024 11:30 AM EDT Office Visit [facility] MEDICINE 230 [facility] [place] [address] Vince Lockhart MD 230 [place] [address] documented as of this encounter Goals Goal [...] documented as of this encounter Care Teams Phonograph Mechanic Relationship Specialty Start Date End Date Vince Lockhart MD 230 [place] [address] PCP - General Internal Medicine 04/10/14 Osiel Mendez, PharmD 230 [facility] [place] [address] Pharmacist Internal Medicine 12/19/22 06/11/23 [facility] 12/29/23 documented as of this encounter
--- OUTSIDE RECORDS SUMMARY | 2024-08-21 09:20 | XMS_ITS | Encounter Summary ---
Author Organization [employer] Address 75 [facility] 7t [place] [address] Care Team Providers Care Environmental Engineer Name Role Phone Vince Lockhart MD Primary Care Provide r Reason for Visit * Reason Comments Med Refill Encounter Details Date Type Department Care Team (Late st Contact Info) Description 08/19/2024 Refill [facility] MEDICINE 230 [place], [place] [phone] Vince Lockhart MD 230 [place], [place] [phone] Social History Tobacco Use Types Packs/Day Years [...] Description 08/28/2024 9:00 AM EST Office Visit [address] [address] Alexander Jones MD [address] [place] [address] 10/29/2024 11:30 AM EDT Office Visit [address] [address] Vince Lockhart MD [address] [place] [address] documented as of this encounter Goals Goal [...] documented as of this encounter Care Teams Environmental Engineer Relationship Specialty Start Date End Date Vince Lockhart MD 230 [place] [address] PCP - General Internal Medicine 04/10/14 [facility] 12/29/23 documented as of this encounter
--- OUTSIDE RECORDS SUMMARY | 2024-08-21 09:20 | XMS_ITS | Encounter Summary ---
Author Organization [employer] Address 75 [facility] 7t [place] [address] Care Team Providers Care Card Mounter Name Role Phone Vince Lockhart MD Primary Care Provide r Reason for Referral * Imaging (Routine) - Pending Review Specialty Diagnoses / Procedures Referred By Contac t Referred To Contact Radiology Diagnoses Renal lesion Procedures US RENAL BI Vince Lockhart MD 230 [place] [address] Phone: tel: fax: Referral ID Status Reason Start Date Expiration Date V isits Requested Visits Authorized [id number] Pending Review 08/20/2024 08/20/2025 1 1 Encounter Details Date Type Department Care Team (Late st Contact Info) Description 08/20/2024 Orders Only [facility] MEDICINE 230 [place], [place] [phone] Vince Lockhart MD 230 [place], [place] [phone] Renal lesion (Primary Dx) Social History Tobacco Use Types [...] 08/28/2024 9:00 AM EST Office Visit [facility] MEDICINE [address] [place] [address] Alexander Jones MD [address] [place] [address] 10/29/2024 11:30 AM EDT Office Visit [facility] MEDICINE [address] [place] [address] Vince Lockhart MD 230 [place] [address] Scheduled Orders Name Type Priority Associated Diagnoses Orde r Schedule US RENAL BI Imaging Routine Renal lesion Expected: 08/20/2024, Expires: 08/20/2025 documented as of this encounter Goals Goal Patient Goal Type Associated Problems Recent Progress Patient-Stated? Author Patient will adhere to medication regimen General Osiel Vargas, PharmD Note: Difficulty with taking medications daily due to no desire documented as of this encounter Visit Diagnoses Diagnosis Renal lesion- Primary documented in this encounter Additional Health Concerns Assessment Noted Time PHQ-9 Depression Total Score: 4 07/02/20 24 10:58 AM EST documented as of this encounter Care Teams Card Mounter Relationship Specialty Start Date End Date Vince Lockhart MD 230 [place] [address] PCP - General Internal Medicine 04/10/14 [facility] 12/29/23 documented as of this encounter
--- OUTSIDE RECORDS SUMMARY | 2024-08-21 09:20 | XMS_ITS | Encounter Summary ---
Author Organization [employer] Address 75 [facility] 7t [place] [address] Care Team Providers Care Production Posting Clerk Name Role Phone Vince Lockhart MD Primary Care Provide r Osiel Mendez PharmD Unavailable [phone] Reason for Visit * Reason Comments Med Refill Encounter Details Date Type Department Care Team ([facility] st Contact Info) Description 06/02/2023 Refill [facility] MEDICINE 230 [place], [place] [phone] Vince Lockhart MD 230 [place], [place] [phone] Depressive disorder Social History Tobacco Use Types [...] the past 12 months, has t he [employer], gas, oil or water company threatened to [...] Description 08/28/2024 9:00 AM EST Office Visit [address] [address] Alexander Jones MD [address] [place] [address] 10/29/2024 11:30 AM EDT Office Visit [address] [address] Vince Lockhart MD [address] [place] [address] documented as of this encounter Goals Goal [...] documented as of this encounter Care Teams Production Posting Clerk Relationship Specialty Start Date End Date Vince Lockhart MD 230 [place] [address] PCP - General Internal Medicine 04/10/14 Osiel Mendez PharmD 230 [place] [address] Pharmacist Internal Medicine 12/19/22 06/11/23 [facility] 12/29/23 documented as of this encounter
--- OUTSIDE RECORDS SUMMARY | 2024-08-21 09:21 | XMS_ITS | Encounter Summary ---
Author Organization [employer] Address 75 [facility] 7t [place] [address] Care Team Providers Care Linux Network Engineer Name Role Phone Vince Lockhart MD Primary Care Provide r Osiel Mendez PharmD Unavailable [phone] Reason for Visit * Reason Comments Med Refill Encounter Details Date Type Department Care Team (Late st Contact Info) Description 09/09/2022 Telephone [facility] MEDICINE 230 [place], [place] [phone] Vince Lockhart MD 230 [place], [place] [phone] Med Refill Social History Tobacco Use Types [...] PM EST ----- Pt entered care at [facility] 09/15. Out now but not sure of discharge date. Pharmacy called to tell us that the facility made some med changes. Pt continues to no show and cancel appointments. Tryto get paperwork and reach out to pt documented in this encounter Plan of Treatment Upcoming Encounters Date Type Department Care Team (Late st Contact Info) Description 08/28/2024 9:00 AM EST Office Visit [facility] MED[facility]INE [address] [place] [address] Alexander Jones MD [address] [place] [address] 10/29/2024 11:30 AM EDT Office Visit [facility] [address] [place] [address] Vince Lockhart MD [address] [place] [address] documented as of this encounter Visit Diagnoses Diagnosis Depressive disorder Depressive disorder, not elsewhere classified Difficulty sleeping Unspecified sleep disturbance documented in this encounter Care Teams Linux Network Engineer Relationship Specialty Start Date End Date Vince Lockhart MD [address] [place] [address] PCP - General Internal Medicine 04/10/14 Osiel Mendez PharmD [address] [place] [address] Pharmacist Internal Medicine 12/19/22 06/11/23 [facility] 12/29/23 documented as of this encounter
--- OUTSIDE RECORDS SUMMARY | 2024-08-21 09:21 | XMS_ITS | Encounter Summary ---
Author Organization [employer] Address 75 [facility] 7t [place] [address] Care Team Providers Care Marine Equipment Preservation Inspector Name Role Phone Vince Lockhart MD Primary Care Provide r Osiel Mendez PharmD Unavailable [phone] Reason for Visit * Reason Onset Date Comments FYI 04/25/2023 Encounter Details Date Type Department Care Team ([facility] st Contact Info) Description 04/25/[address] [facility] MEDICINE 230 [place], [place] [phone] Vince Lockhart MD 230 [place], [place] [phone] FYI Social History Tobacco Use Types Packs/Day [...] - 04/25/2023 10:06 AM EDT Tc from [employer] [facility] would like to inform PCP that pt no longer has a psych provider. Please contact at [phone] documented in this encounter Plan of Treatment Upcoming Encounters Date Type Department Care Team (Late st Contact Info) Description 08/28/2024 9:00 AM EST Office Visit [facility] MED[facility]INE [address] [place] [address] Alexander Jones MD [address] [place] [address] 10/29/2024 11:30 AM EDT Office Visit [facility] [address] [place] [address] Vince Lockhart MD [address] [place] [address] documented as of this encounter Goals Goal Patient Goal Type Associated Problems Recent Progress Patient-Stated? Author Patient will adhere to medication regimen General Osiel Vargas, PharmCameron Note: Difficulty with taking medications daily due to no desire documented as of this encounter Visit Diagnoses Not on filedocumented in this encounter Additional Health Concerns Assessment Noted Time PHQ-9 Depression Total Score: 8 12/17/19 23 1:48 PM EDT documented as of this encounter Care Teams Marine Equipment Preservation Inspector Relationship Specialty Start Date End Date Vince Lockhart MD 230 [place] [address] PCP - General Internal Medicine 04/10/14 Osiel Mendez, Castro 230 [place] [address] Pharmacist Internal Medicine 12/19/22 06/11/23 [facility] 12/29/23 documented as of this encounter
--- OUTSIDE RECORDS SUMMARY | 2024-08-21 09:21 | XMS_ITS | Encounter Summary ---
Author Organization [employer] Address 75 [facility] 7t [place] [address] Care Team Providers Care Telescope Repairer Name Role Phone Vince Lockhart MD Primary Care Provide r Osile Mendez PharmD Unavailable [phone] Reason for Visit * Reason Onset Date Comments FYI 08/18/2022 Encounter Details Date Type Department Care Team ([facility] st Contact Info) Description 08/18/2022 Telephone [facility] MEDICINE 230 [place], [place] [phone] Vince Lockhart MD 230 [place], [place] [phone] FY Social History Tobacco Use Types Packs/Day [...] Forms Department, to discuss his request for ADMINISTRATIVE TECH services. * Telephone Encounter - Dick Villagran - 08/18/2022 10:32 AM EST Tc from [facility] would like to inform PCP that pt is being transferred to their services from [facility] system also stated will be faxing forms. Advisedwill leave message as a a FYI Please contact at [phone] documented in this encounter Plan of Treatment Upcoming Encounters Date Type Department Care Team (Late st Contact Info) Description 08/28/2024 9:00 AM EST Office Visit [address] [address] Alexander Jones MD [address] [place] [address] 10/29/2024 11:30 AM EDT Office Visit [address] [address] Vince Lockhart MD [address] [place] [address] documented as of this encounter Goals Goal Patient Goal Type Associated Problems Recent Progress Patient-Stated? Author Patient will adhere to medication regimen General No Osiel Mendez, Castro Note: Difficulty with taking medications daily due to no desire documented as of this encounter Visit Diagnoses Not on filedocumented in this encounter Care Teams Telescope Repairer Relationship Specialty Start Date End Date Vince Lockhart MD [address] [place] [address] PCP - General Internal Medicine 04/10/14 Osiel Mendez, Castro [address] [place] [address] Pharmacist Internal Medicine 12/19/22 06/11/23 [facility] [place] 12/29/23 documented as of this encounter
--- OUTSIDE RECORDS SUMMARY | 2024-08-21 09:21 | XMS_ITS | Encounter Summary ---
Author Organization [employer] Address 75 [facility] 7t [place] [address] Care Team Providers Care Admissions Representative Name Role Phone Vince Lockhart MD Primary Care Provide r Osiel Mendez PharmD Unavailable [phone] Reason for Visit * Reason Comments Med Refill Encounter Details Date Type Department Care Team ([facility] Contact Info) Description 10/11/2022 Refill [facility] MEDICINE 230 [place] [address] Vince Lockhart MD 230 [place], [place] [phone] Depressive disorder Social History Tobacco Use Types [...] 9:00 AM EST Office Visit [facility] MEDICINE 230 [place] [address] Alexander Jones MD [facility] [place] [address] 10/29/2024 11:30 AM EDT Office Visit [facility] [place] [address] Vince Lockhart MD [facility] [place] [address] documented as of this encounter Visit Diagnoses Diagnosis Depressive disorder Depressive disorder, not elsewhere classified documented in this encounter Care Teams Admissions Representative Relationship Specialty Start Date End Date Vince Lockhart MD [facility] [place] [address] PCP - General Internal Medicine 04/10/14 Osiel Mendez, MayteD [address] [place] [address] Pharmacist Internal Medicine 12/19/22 06/11/23 [facility] 12/29/23 documented as of this encounter
--- OUTSIDE RECORDS SUMMARY | 2024-08-21 09:21 | XMS_ITS | Encounter Summary ---
Author Organization [employer] Address 75 [facility] 7t [place] [address] Care Team Providers Care Bight Maker Name Role Phone Vince Lockhart MD Primary Care Provide r Osiel Mendez PharmD Unavailable [phone] Reason for Visit * Reason Onset Date Comments REQUEST FOR DISPUTE COORDINATOR REFERRAL 07/26/2022 I hernandez d regarding the pt's request for a referral for DISPUTE COORDINATOR services. He needs to state what ADL's he needs assistance with. There was no answer, and I reached a recording stating that the person's mailbox is full. I was unable to leave a msg. Encounter Details Date Type Department Care Team ([facility] Contact Info) Description 07/26/2022 Telephone [facility] MEDICINE 230 [place] [address] Vince Lockhart MD 230 [place] [address] REQUEST FOR DISPUTE COORDINATOR REFERRAL (I called regarding the pt's request for a referral for DISPUTE COORDINATOR services. He needs to state what ADL's [...] Description 08/28/2024 9:00 AM EST Office Visit [address] [address] Alexander Jones MD [address] [place] [address] 10/29/2024 11:30 AM EDT Office Visit [facility] MEDICINE [address] [place] [address] Vince Lockhart MD [address] [place] [address] documented as of this encounter Visit Diagnoses Not on filedocumented in this encounter Care Teams Bight Maker Relationship Specialty Start Date End Date Vince Lockhart MD [address] [place] [address] PCP - General Internal Medicine 04/10/14 Osiel Mendez PharmD [address] [place] [address] Pharmacist Internal Medicine 12/19/22 06/11/23 [facility] 12/29/23 documented as of this encounter
--- OUTSIDE RECORDS SUMMARY | 2024-08-21 09:21 | XMS_ITS | Encounter Summary ---
Author Organization [employer] Address 75 [facility] 7t [place] [address] Care Team Providers Care Speech Pathology Teacher Name Role Phone Vince Lockhart MD Primary Care Provide r Osiel Mendez PharmD Unavailable [phone] Encounter Details Date Type Department Care Team (Late st Contact Info) Description 09/26/2022 Telephone [facility] MEDICINE [address] [place] [address] [phone] Vince Lockhart MD [address] [place] [address] [phone] Social History Tobacco Use Types Packs/Day Years [...] Description 08/28/2024 9:00 AM EST Office Visit [address] [phone] Alexander Jones MD [address] [place] [address] 10/29/2024 11:30 AM EDT Office Visit [address] [address] Vince Lockhart MD 230 [place] [address] documented as of this encounter Visit Diagnoses Not on filedocumented in this encounter Care Teams Speech Pathology Teacher Relationship Specialty Start Date End Date Vince Lockhart MD 230 [place] [address] PCP - General Internal Medicine 04/10/14 Osiel Mendez PharmD 230 [place], [place] [phone] Pharmacist Internal Medicine 12/19/22 06/11/23 [facility] 12/29/23 documented as of this encounter
--- OUTSIDE RECORDS SUMMARY | 2024-08-21 09:21 | XMS_ITS | Encounter Summary ---
Author Organization [employer] Address 75 [facility] 7t [place] [address] Care Team Providers Care Knockout Machine Operator Name Role Phone Vince Lockhart MD Primary Care Provide r Reason for Visit * Reason Comments Med Refill Encounter Details Date Type Department Care Team ([facility] st Contact Info) Description 11/27/2023 Refill [facility] MEDICINE 230 [place], [place] [phone] Vince Lockhart MD 230 [place], [place] [phone] Social History Tobacco Use Types Packs/Day Years [...] Description 08/28/2024 9:00 AM EST Office Visit [facility] MEDICINE [address] [place] [address] Alexander Jones MD [address] [place] [address] 10/29/2024 11:30 AM EDT Office Visit [address] [address] Vince Lockhart MD [address] [place] [address] documented as of this encounter Goals Goal [...] documented as of this encounter Care Teams Knockout Machine Operator Relationship Specialty Start Date End Date Vince Lockhart MD [address] [place] [address] PCP - General Internal Medicine 04/10/14 [facility] 12/29/23 documented as of this encounter
--- OUTSIDE RECORDS SUMMARY | 2024-08-21 09:21 | XMS_ITS | Encounter Summary ---
Author Organization [employer] Address 75 [facility] 7t [place] [address] Care Team Providers Care New Car Driver Name Role Phone Vince Lockhart MD Primary Care Provide r Osiel Mendez PharmD Unavailable [phone] Reason for Visit * Reason Comments Med Refill Encounter Details Date Type Department Care Team (Late Contact Info) Description 03/07/2023 Refill [facility] MEDICINE 230 [place] [address] Vince Lockhart MD 230 [place], [place] [phone] Difficulty sleeping Social History Tobacco Use Types [...] Description 08/28/2024 9:00 AM EST Office Visit [facility] [place] [address] Alexander Jones MD [facility] [place] [address] 10/29/2024 11:30 AM EDT Office Visit [address] [place] [address] [place] [address] documented as of this encounter Goals Goal [...] documented as of this encounter Care Teams New Car Driver Relationship Specialty Start Date End Date Vince Lockhart MD [facility] [place] [address] PCP - General Internal Medicine 04/10/14 Osiel Mendez, Castro [address] [place] [address] Pharmacist Internal Medicine 12/19/22 06/11/23 [facility] 12/29/23 documented as of this encounter
--- OUTSIDE RECORDS SUMMARY | 2024-08-21 09:21 | XMS_ITS | Encounter Summary ---
Author Organization [employer] Address [address] [facility] [address] 7t [place] [address] Care Team Providers Care Force Variation Equipment Tender Name Role Phone Vince Lockhart MD Primary Care Provide r Reason for Visit * Reason Onset Date Comments Care Management 07/12/2023 [facility]- initial as sessment/enrollment Encounter Details Date Type Department Care Team (Late st Contact Info) Description 07/12/2023 Telephone [facility] MEDICINE 230 [place] [address] Atilio Franz RN [address] [place] [address] Care Management ([facility]- initial assessment/enrollment) Social History [...] reports currently living in an apartment in [place]. Per pt, lives alone and states he [...] of dizziness. Patient would like to receive GENERAL CAR YARD SUPERVISOR services for these reasons. Patient reports attending visits with [facility] on a weekly basis. He also states he follows up regularly with therapy and psych at [facility]. Per pt, takes all medications as prescribed. Patient unable to list names of meds but states these are managed by his visiting nurse. Patient reports monitoring his BP daily and states BP readings have been wnl. Per patient, received the nebulizer from [facility] [place]. He states he has not received a script for ensure. Patient reports losing his dentures during last inpatient stay at [facility] psych. Per patient, not having his dentures makes it very difficultand painful for him to eat which has affected his weight. Patient denies having any upcoming appointments to specialty offices. Care management program explained and contact information given. Patient verbalizes understanding, and able to repeat back to hand sign writer. A follow up call will be [...] Description 08/28/2024 9:00 AM EST Office Visit [address] [address] Alexander Jones MD [address] [place] [address] 10/29/2024 11:30 AM EDT Office Visit [facility] MEDICINE [address] [place] [address] Vince Lockhart MD [address] [place] [address] documented as of this encounter Goals Goal [...] Noted Time PHQ-9 Depression Total Score: 26 10/31/2 023 2:35 PM EDT documented as of this encounter Care Teams Force Variation Equipment Tender Relationship Specialty Start Date End Date Vince Lockhart MD 230 [place] [address] PCP - General Internal Medicine 04/10/14 [facility] 12/29/23 documented as of this encounter
--- OUTSIDE RECORDS SUMMARY | 2024-08-21 09:21 | XMS_ITS | Encounter Summary ---
Author Organization [employer] Address 75 [facility] 7t [place] [address] Care Team Providers Care Superintendent Nonselling Name Role Phone Vince Lockhart MD Primary Care Provide r Osiel Mendez PharmD Unavailable [phone] Reason for Visit * Reason Comments Med Refill Encounter Details Date Type Department Care Team ([facility] Contact Info) Description 10/05/2022 Refill [facility] MEDICINE 230 [place] [address] Vince Lockhart MD 230 [place], [place] [phone] Depressive disorder Social History Tobacco Use Types [...] Upcoming Encounters Date Type Department Care Team ([facility] Contact Info) Description 08/28/2024 9:00 AM EST Office Visit [facility] MEDICINE 230 [place] [address] Alexander Jones MD [facility] [place] [address] 10/29/2024 11:30 AM EDT Office Visit [facility] [place] [address] Vince Lockhart MD [facility] [place] [address] documented as of this encounter Visit Diagnoses Diagnosis Depressive disorder Depressive disorder, not elsewhere classified documented in this encounter Care Teams Superintendent Nonselling Relationship Specialty Start Date End Date Vince Lockhart MD [facility] [place] [address] PCP - General Internal Medicine 04/10/14 Osiel Mendez, MayteD [address] [place] [address] Pharmacist Internal Medicine 12/19/22 06/11/23 [facility] 12/29/23 documented as of this encounter
--- OUTSIDE RECORDS SUMMARY | 2024-08-21 09:21 | XMS_ITS | Encounter Summary ---
Author Organization [employer] Address 75 [facility] 7t [place] [address] Care Team Providers Care Grid Trimmer Name Role Phone Vince Lockhart MD Primary Care Provide r Osiel Mendez PharmD Unavailable [phone] Encounter Details Date Type Department Care Team (Late Contact Info) Description 10/03/2022 Abstract [facility] MEDICINE 230 [place] [address] Vince Lockhart MD 230 [place], [place] [phone] Social History Tobacco Use Types Packs/Day Years [...] Description 08/28/2024 9:00 AM EST Office Visit [facility] MEDICINE 230 [place], [place] [phone] Alexander Jones MD [address] [place] [address] [place] [address] 10/29/2024 11:30 AM EDT Office Visit [facility] MED[facility] [place], [place] [phone] Vince Lockhart MD [facility] [place], [place] [phone] documented as of this encounter Visit Diagnoses Not on filedocumented in this encounter Care Teams Grid Trimmer Relationship Specialty Start Date End Date Vince Lockhart MD [place], [place] [phone] PCP - General Internal Medicine 04/10/14 Osiel Mendez PharmD [facility] [place], [place] [phone] Pharmacist Internal Medicine 12/19/22 06/11/23 [facility] [place] 12/29/23 documented as of this encounter
--- OUTSIDE RECORDS SUMMARY | 2024-08-21 09:21 | XMS_ITS | Encounter Summary ---
Author Organization [employer] Address 75 [facility] 7t [place] [address] Care Team Providers Care Revenue Investigator Name Role Phone Vince Lockhart MD Primary Care Provide r Osiel Mendez PharmD Unavailable [phone] Reason for Visit * Reason Onset Date Comments triage 10/03/2022 Encounter Details Date Type Department Care Team ([facility] st Contact Info) Description 10/03/2022 Telephone [facility] MEDICINE 230 [place], [place] [phone] Vince Lockhart MD 230 [place], [place] [phone] triage Social History Tobacco Use Types Packs/Day [...] encounter Miscellaneous Notes * Telephone Encounter - Juliaan Hall LPN - 10/03/2022 1:32 PM EDT [...] requires assisted transportation. Is unable to access [facility] as he has no car and no [...] now The caller accepted this outcome speaks tuvaluan. documented in this encounter Plan of Treatment Upcoming Encounters Date Type Department Care Team (Late st Contact Info) Description 08/28/2024 9:00 AM EST Office Visit [facility] MEDICINE [address] [place] [address] Alexander Jones MD 230 [place] [address] 10/29/2024 11:30 AM EDT Office Visit [facility] MEDICINE [address] [place] [address] Vince Lockhart MD 230 [place] [address] documented as of this encounter Visit Diagnoses Not on filedocumented in this encounter Care Teams Revenue Investigator Relationship Specialty Start Date End Date Vince Lockhart MD 230 [place] [address] PCP - General Internal Medicine 04/10/14 Osiel Mendez PharmD 230 [place] [address] Pharmacist Internal Medicine 12/19/22 06/11/23 [facility] 12/29/23 documented as of this encounter
--- OUTSIDE RECORDS SUMMARY | 2024-08-21 09:22 | XMS_ITS | Encounter Summary ---
Author Organization [employer] Address 75 [facility] 7t [place] [address] Care Team Providers Care Junior Php Developer Name Role Phone Vince Lockhart MD Primary Care Provide r Reason for Visit * Reason Onset Date Comments Error 10/20/2023 Encounter Details Date Type Department Care Team ([facility] st Contact Info) Description 10/20/2023 Telephone [facility] MEDICINE 230 [place], [place] [phone] Vince Lockhart MD 230 [place] [address] Error Social History Tobacco Use Types Packs/Day [...] Upcoming Encounters Date Type Department Care Team ([facility] st Contact Info) Description 08/28/2024 9:00 AM EST Office Visit [address] [address] Alexander Jones MD [address] [place] [address] 10/29/2024 11:30 AM EDT Office Visit [address] [address] Vince Lockhart MD [address] [place] [address] documented as of this encounter Goals Goal [...] documented as of this encounter Care Teams Junior Php Developer Relationship Specialty Start Date End Date Vince Lockhart MD 230 [place] [address] PCP - General Internal Medicine 04/10/14 [facility] 12/29/23 documented as of this encounter
--- OUTSIDE RECORDS SUMMARY | 2024-08-21 09:22 | XMS_ITS | Encounter Summary ---
Author Organization [employer] Address 75 [facility] 7t [place] [address] Care Team Providers Care Sales And In Home Delivery Specialist Name Role Phone Vince Lockhart MD Primary Care Provide r Osiel Mendez PharmD Unavailable [phone] Reason for Visit * Reason Comments Med Refill Encounter Details Date Type Department Care Team (Late st Contact Info) Description 03/14/2023 Refill [facility] MEDICINE 230 [place] [address] Vince Lockhart MD 230 [place], [place] [phone] Pulmonary emphysema, unspecified emphysema type (CMS/HCC) Social [...] Description 08/28/2024 9:00 AM EST Office Visit [address] [address] [place] [address] 10/29/2024 11:30 AM EDT Office Visit [address] [address] [place] [address] documented as of this encounter Goals Goal [...] as of this encounter Care Teams Sales And In Home Delivery Specialist Relationship Specialty Start Date End Date [place] [address] PCP - General Internal Medicine 04/10/14 Osiel Mendez PharmD [address] [place] [address] Pharmacist Internal Medicine 12/19/22 06/11/23 [facility] 12/29/23 documented as of this encounter
--- OUTSIDE RECORDS SUMMARY | 2024-08-21 09:22 | XMS_ITS | Encounter Summary ---
Author Organization [employer] Address 75 [facility] 7t [place] [address] Care Team Providers Care Amusement Ride Operator Name Role Phone Vince Lockhart MD Primary Care Provide r Reason for Visit * Reason Onset Date Comments Med Refill 07/13/2023 Encounter Details Date Type Department Care Team ([facility] st Contact Info) Description 07/13/2023 Telephone [facility] MEDICINE 230 [place], [place] [phone] Vince Lockhart MD 230 [place], [place] [phone] Med Refill Social History Tobacco Use Types [...] Garvin LPN - 07/13/2023 12:46 PM EST CDL TRUCK DRIVER checked Ambien last filled on 06/30/23 Qty: [...] Description 08/28/2024 9:00 AM EST Office Visit [facility] MEDICINE [address] [place] [address] Alexander Jones MD [address] [place] [address] 10/29/2024 11:30 AM EDT Office Visit [facility] MEDICINE [address] [place] [address] [phone] Vince Lockhart MD 230 [place], [place] [phone] documented as of this encounter Goals Goal [...] documented as of this encounter Care Teams Amusement Ride Operator Relationship Specialty Start Date End Date Vince Lockhart MD 230 [place] [address] PCP - General Internal Medicine 04/10/14 [facility] 12/29/23 documented as of this encounter
--- OUTSIDE RECORDS SUMMARY | 2024-08-21 09:22 | XMS_ITS | Encounter Summary ---
Author Organization [employer] Address 75 [facility] 7t [place] [address] Care Team Providers Care Staple Fiber Washer Name Role Phone Vince Lockhart MD Primary Care Provide r Reason for Visit * Reason Comments Med Refill Encounter Details Date Type Department Care Team ([facility] st Contact Info) Description 07/04/2023 Refill [facility] MEDICINE 230 [place], [place] [phone] Monse Gonzalez MD 230 [place], [place] [phone] Social History Tobacco Use Types Packs/Day Years [...] Description 08/28/2024 9:00 AM EST Office Visit [address] [address] Alexander Jones MD [address] [place] [address] 10/29/2024 11:30 AM EDT Office Visit [address] [address] Vince Lockhart MD [address] [place] [address] documented as of this encounter Goals Goal [...] documented as of this encounter Care Teams Staple Fiber Washer Relationship Specialty Start Date End Date Vince Lockhart MD 230 [place] [address] PCP - General Internal Medicine 04/10/14 [facility] 12/29/23 documented as of this encounter
--- OUTSIDE RECORDS SUMMARY | 2024-08-21 09:22 | XMS_ITS | Encounter Summary ---
Author Organization [employer] Address 75 [facility] 7t [place] [address] Care Team Providers Care Operations Consultant Name Role Phone Vince Lockhart MD Primary Care Provide r Reason for Visit * Reason Onset Date Comments Nurse Triage 04/03/2024 Encounter Details Date Type Department Care Team ([facility] st Contact Info) Description 04/03/2024 Telephone [facility] MEDICINE 230 [place], [place] [phone] Vince Lockhart MD 230 [place], [place] [phone] Nurse Triage Social History Tobacco Use Types [...] AM EDT Triage call to Pt with [employer] ID [id number]. Pt is called regarding call in about [...] caller accepted this outcome. Please contact at [phone] Singaporean documented in this encounter Plan of Treatment Upcoming Encounters Date Type Department Care Team (Late st Contact Info) Description 08/28/2024 9:00 AM EST Office Visit [facility]ICINE [place] [address] Alexander Jones MD [place] [phone] 10/29/2024 11:30 AM EDT Office Visit [facility] MEDICINE [facility] [place] [phone] Vince Lockhart MD [facility] [facility] [place] [address] documented as of this encounter Goals Goal [...] documented as of this encounter Care Teams Operations Consultant Relationship Specialty Start Date End Date Vince Lockhart MD [place] [address] PCP - General Internal Medicine 04/10/14 [facility] 12/29/23 documented as of this encounter
--- OUTSIDE RECORDS SUMMARY | 2024-08-21 09:22 | XMS_ITS | Encounter Summary ---
Author Organization [employer] Address 75 [facility] 7t [place] [address] Care Team Providers Care Hot Strip Finisher Name Role Phone Vince Lockhart MD Primary Care Provide r Reason for Visit * Reason Onset Date Comments Created in Error 04/09/2024 Encounter Details Date Type Department Care Team ([facility] st Contact Info) Description 04/09/2024 Telephone [facility] MEDICINE 230 [place], [place] [phone] Vince Lockhart MD 230 [place], [place] [phone] Created in Error Social History Tobacco Use [...] Description 08/28/2024 9:00 AM EST Office Visit [facility] MEDICINE [address] [place] [address] Alexander Jones MD [address] [place] [address] 10/29/2024 11:30 AM EDT Office Visit [address] [phone] Vince Lockhart MD [address] [place] [address] documented as of this encounter Goals Goal [...] documented as of this encounter Care Teams Hot Strip Finisher Relationship Specialty Start Date End Date Vince Lockhart MD 230 [place] [address] PCP - General Internal Medicine 04/10/14 [facility] 12/29/23 documented as of this encounter
--- OUTSIDE RECORDS SUMMARY | 2024-08-21 09:22 | XMS_ITS | Encounter Summary ---
Author Organization [employer] Address 75 [facility] 7t [place] [address] Care Team Providers Care Backer Up Name Role Phone Vince Lockhart MD Primary Care Provide r Reason for Visit * Reason Comments Med Refill Encounter Details Date Type Department Care Team (Late st Contact Info) Description 04/10/2024 Refill [facility] MEDICINE 230 [place], [place] [phone] Felicia Hdz, ANP 230 [place] [address] Social History Tobacco Use Types Packs/Day Years [...] Description 08/28/2024 9:00 AM EST Office Visit [address] [address] Alexander Jones MD [address] [place] [address] 10/29/2024 11:30 AM EDT Office Visit [address] [address] Vince Lockhart MD [address] [place] [address] documented as of this encounter Goals Goal [...] documented as of this encounter Care Teams Backer Up Relationship Specialty Start Date End Date Vince Lockhart MD [address] [place] [address] PCP - General Internal Medicine 04/10/14 [facility] 12/29/23 documented as of this encounter
--- OUTSIDE RECORDS SUMMARY | 2024-08-21 09:22 | XMS_ITS | Encounter Summary ---
Author Organization [employer] Address 75 [facility] 7t [place] [address] Care Team Providers Care Waxing Machine Operator Name Role Phone Vince Lockhart MD Primary Care Provide r Reason for Visit * Reason Comments Med Refill Encounter Details Date Type Department Care Team (Late st Contact Info) Description 03/18/2024 Refill [facility] [address] [place], [place] [phone] Yajaira Birmingham MD 230 [place] [address] Depressive disorder Social History Tobacco Use Types [...] Description 08/28/2024 9:00 AM EST Office Visit [facility] MEDICINE [address] [place] [address] Alexander Jones MD [address] [place] [address] 10/29/2024 11:30 AM EDT Office Visit [address] [address] Vince Lockhart MD [address] [place] [address] documented as of this encounter Goals Goal [...] documented as of this encounter Care Teams Waxing Machine Operator Relationship Specialty Start Date End Date Vince Lockhart MD 230 [place] [address] PCP - General Internal Medicine 04/10/14 [facility] 12/29/23 documented as of this encounter
--- OUTSIDE RECORDS SUMMARY | 2024-08-21 09:22 | XMS_ITS | Encounter Summary ---
Author Organization [employer] Address 75 [facility] 7t [place] [address] Care Team Providers Care Mold Making Plastics Sheets Supervisor Name Role Phone Vince Lockhart MD Primary Care Provide r Osiel Mendez PharmD Unavailable [phone] Reason for Visit * Reason Comments Med Refill Encounter Details Date Type Department Care Team (Late Contact Info) Description 03/03/2023 Refill [facility] MEDICINE 230 [place] [address] Vince Lockhart MD 230 [place], [place] [phone] Depressive disorder; Difficulty sleeping Social History Tobacco [...] Description 08/28/2024 9:00 AM EST Office Visit [facility] MEDICINE 230 [facility] [place] [address] [place] [address] 10/29/2024 11:30 AM EDT Office Visit [facility] [place] [address] Vince Lockhart MD [facility] [facility] [place] [address] documented as of this encounter Goals Goal [...] documented as of this encounter Care Teams Mold Making Plastics Sheets Supervisor Relationship Specialty Start Date End Date Vinec Lockhart MD [place] [address] PCP - General Internal Medicine 04/10/14 Osiel Mendez, Castro [place] [facility] [place] [address] Pharmacist Internal Medicine 12/19/22 06/11/23 [facility] 12/29/23 documented as of this encounter
--- OUTSIDE RECORDS SUMMARY | 2024-08-21 09:22 | XMS_ITS | Encounter Summary ---
Author Organization [employer] Address 75 [facility] 7t [place] [address] Care Team Providers Care Grain Loader Name Role Phone Vince Lockhart MD Primary Care Provide r Osiel Mendez PharmD Unavailable [phone] Reason for Visit * Reason Onset Date Comments Nurse Triage 03/21/2023 Encounter Details Date Type Department Care Team (Late st Contact Info) Description 03/21/2023 Telephone [facility] MEDICINE 230 [place], [place] [phone] Vince Lockhart MD 230 [place], [place] [phone] Nurse Triage Social History Tobacco Use Types [...] 03/28/23. I do not see Ultram in [facility] med list but there is an older script in [facility] for Tramadol from 2013. I see pt. [...] - 03/21/2023 12:25 PM EDT Tc from [facility] Symptom: Back Pain - Not From Injury Outcome: Schedule an appointment to be seen within 3 days Reason: Caller denied all higher acuity questions The caller accepted this outcome Please call [phone] documented in this encounter Plan of Treatment Upcoming Encounters Date Type Department Care Team (Late st Contact Info) Description 08/28/2024 9:00 AM EST Office Visit [address] [phone] Alexander Jones MD [address] [place] [address] 10/29/2024 11:30 AM EDT Office Visit [address] [phone] Vince Lockhart MD [address] [place] [address] [phone] documented as of this encounter Goals Goal [...] documented as of this encounter Care Teams Grain Loader Relationship Specialty Start Date End Date Vince Lockhart MD [address] [place] [address] PCP - General Internal Medicine 04/10/14 Osiel Mendez, PharmD [address] [place] [address] Pharmacist Internal Medicine 12/19/22 06/11/23 [facility] 12/29/23 documented as of this encounter
--- OUTSIDE RECORDS SUMMARY | 2024-08-21 09:22 | XMS_ITS | Encounter Summary ---
Author Organization [employer] Address 75 [facility] 7t [place] [address] Care Team Providers Care Film Masker Name Role Phone Vince Lockhart MD Primary Care Provide r Osiel Mendez PharmD Unavailable [phone] Reason for Visit * Reason Onset Date Comments Medication Question 03/21/2023 Encounter Details Date Type Department Care Team ([facility] st Contact Info) Description 03/21/2023 Telephone [facility] MEDICINE 230 [place], [place] [phone] Vince Lockhart MD 230 [place], [place] [phone] Medication Question Social History Tobacco Use Types [...] PM EDT Telephone call placed to Adriana ([facility]). Explained that we are not prescribing controlled [...] 12:46 PM EDT Tc from Adriana at [facility] calling in regards to message above. States pt is planning on going to hospital due to lack of pain control. Please contact adriana at [phone] * Telephone Encounter - Chioma Frank - 03/21/2023 12:28 PM EDT Tc from Adriana at [facility] requesting a call back, in regards to medication tramadol 50 mg. documented in this encounter Plan of Treatment Upcoming Encounters Date Type Department Care Team (Late st Contact Info) Description 08/28/2024 9:00 AM EST Office Visit [facility] MEDICINE 230 [place] [address] Alexander Jones MD 230 [place] [address] 10/29/2024 11:30 AM EDT Office Visit [facility] MEDICINE [address] [facility] [place] [address] Vince Lockhart MD 230 [place] [address] documented as of this encounter Goals Goal [...] documented as of this encounter Care Teams Film Masker Relationship Specialty Start Date End Date Vince Lockhart MD 230 [place] [address] PCP - General Internal Medicine 04/10/14 Osiel Mendez, PharmD [address] [place] [address] Pharmacist Internal Medicine 12/19/22 06/11/23 [facility] 12/29/23 documented as of this encounter
--- OUTSIDE RECORDS SUMMARY | 2024-08-21 09:22 | XMS_ITS | Encounter Summary ---
Author Organization [employer] Address 75 [facility] 7t [place] [address] Care Team Providers Care Java J2Ee Software Engineer Name Role Phone Vince Lockhart MD Primary Care Provide r Reason for Visit * Reason Onset Date Comments PT1 04/10/2024 Encounter Details Date Type Department Care Team ([facility] st Contact Info) Description 04/10/2024 Telephone [facility] MEDICINE 230 [place], [place] [phone] Vince Lockhart MD 230 [place], [place] [phone] PT1 Social History Tobacco Use Types Packs/Day [...] 3:59 PM EDT Tc from Sheila with [facility] requesting PT1 Patient calling requesting PT1 Home Address verified: Y/N: Yes Provider name or facility name: [facility] Facility Address: [address] [place] [address] Escort needed: Y/N: No Do you have a wheelchair: Y/N: No If yes- Manual or electric: n/a Visits: 3 x month documented in this encounter Plan of Treatment Upcoming Encounters Date Type Department Care Team (Late st Contact Info) Description 08/28/2024 9:00 AM EST Office Visit [facility] MEDICINE [address] [place] [address] Alexander Jones MD 230 [place] [address] 10/29/2024 11:30 AM EDT Office Visit [facility] MEDICINE [address] [place] [address] Vince Lockhart MD 230 [place] [address] documented as of this encounter Goals Goal [...] documented as of this encounter Care Teams Java J2Ee Software Engineer Relationship Specialty Start Date End Date Vince Lockhart MD 230 [place] [address] PCP - General Internal Medicine 04/10/14 [facility] 12/29/23 documented as of this encounter
--- OUTSIDE RECORDS SUMMARY | 2024-08-21 09:23 | XMS_ITS | Encounter Summary ---
Author Organization [employer] Address 75 [facility] 7t [place] [address] Care Team Providers Care Candy Dipper Hand Name Role Phone Vince Lockhart MD Primary Care Provide r Reason for Visit * Reason Comments OBAT F/U Encounter Details Date Type Department Care Team (Late st Contact Info) Description 07/24/2024 9:00 AM EST Office Visit [facility] MEDICINE 230 [place], [place] [phone] Alexander Jones MD 230 [place], [place] [phone] Opioid type dependence, continuous (CMS/HCC) (Primary Dx) [...] 3 adult children (1 killed; 1 in [facility] in [place]) Last LFT (04/03/2024) LAST GBAT VISIT 07/03/2024 [...] at the visit: Team RN, MAT Physician, Manager Maintenance, Clinician, and Good Humor Vendor Opportunities provided to address individual medical/medication/ concerns [...] for this visit: Opioid type dependence, continuous (CMS/[facility]) (Primary) - POCT MARIA ANTONIA-14 Urine Drug [...] Description 08/28/2024 9:00 AM EST Office Visit [facility] MEDICINE [address] [place] [address] Alexander Jones MD [address] [place] [address] 10/29/2024 11:30 AM EDT Office Visit [facility] MEDICINE [address] [place] [address] [phone] Vince Lockhart MD 230 [place], [place] [phone] documented as of this encounter Goals Goal [...] 10:56 AM EST Opioid type dependence, continuous (CMS/[facility]) documented in this encounter Results [...] procedure / Unknown 07/24/2024 10:56 AM EST Alexander Jones MD POINT OF CARE TEST ENTER/EDIT OR DERABLES Final Result documented in this encounter Visit Diagnoses Diagnosis Opioid type dependence, continuous (CMS/HCC)- Primary Opioid type dependence, continuous documented in this encounter Additional Health Concerns Assessment Noted Time PHQ-9 Depression Total Score: 4 07/02/20 10:58 AM EST documented as of this encounter Care Teams Candy Dipper Hand Relationship Specialty Start Date End Date Vince Lockhart MD 230 [place] [address] PCP - General Internal Medicine 04/10/14 [facility] 12/29/23 documented as of this encounter
--- OUTSIDE RECORDS SUMMARY | 2024-08-21 09:23 | XMS_ITS | Encounter Summary ---
Author Organization [employer] Address 75 [facility] 7t [place] [address] Care Team Providers Care Oncology Technician Name Role Phone Vince Lockhart MD Primary Care Provide r Reason for Visit * Reason Comments Med Refill Encounter Details Date Type Department Care Team (Late st Contact Info) Description 09/21/2023 Refill [facility] MEDICINE 230 [place], [place] [phone] Vince Lockhart MD 230 [place], [place] [phone] Hospital discharge follow-up Social History Tobacco Use [...] Description 08/28/2024 9:00 AM EST Office Visit [address] [address] Alexander Jones MD [address] [place] [address] 10/29/2024 11:30 AM EDT Office Visit [address] [address] Vince Lockhart MD [address] [place] [address] documented as of this encounter Goals Goal [...] documented as of this encounter Care Teams Oncology Technician Relationship Specialty Start Date End Date Vince Lockhart MD 230 [place] [address] PCP - General Internal Medicine 04/10/14 [facility] 12/29/23 documented as of this encounter
--- OUTSIDE RECORDS SUMMARY | 2024-08-21 09:23 | XMS_ITS | Encounter Summary ---
Author Organization [employer] Address 75 [facility] 7t [place] [address] Care Team Providers Care Rug Cutter Name Role Phone Vince Lockhart MD Primary Care Provide r Reason for Visit * Reason Comments Med Refill Encounter Details Date Type Department Care Team (Late st Contact Info) Description 02/19/2024 Refill [facility] MEDICINE 230 [place], [place] [phone] Vince Lockhart MD 230 [place], [place] [phone] Chronic midline low back pain without sciatica [...] Description 08/28/2024 9:00 AM EST Office Visit [address] [address] Alexander Jones MD [address] [place] [address] 10/29/2024 11:30 AM EDT Office Visit [address] [address] Vince Lockhart MD [address] [place] [address] documented as of this encounter Goals Goal [...] documented as of this encounter Care Teams Rug Cutter Relationship Specialty Start Date End Date Vince Lockhart MD 230 [place] [address] PCP - General Internal Medicine 04/10/14 [facility] 12/29/23 documented as of this encounter
--- OUTSIDE RECORDS SUMMARY | 2024-08-21 09:23 | XMS_ITS | Encounter Summary ---
Author Organization [email or web address] Address 75 [facility] 7t [place] [address] Care Team Providers Care Burrer Machine Name Role Phone Vince Lockhart MD Primary Care Provide r Reason for Visit * Reason Onset Date Comments Nurse Triage 02/28/2024 Encounter Details Date Type Department Care Team ([facility] st Contact Info) Description 02/28/2024 Telephone [facility] MEDICINE 230 [place], [place] [phone] Vince Lockhart MD 230 [place], [place] [phone] Nurse Triage Social History Tobacco Use Types [...] 02/28/2024 1:18 PM EDT Triage call with [employer] Sales Trader ID [id number]. Pt reports headache and some dizziness for [...] call. Pt is advised to come to [facility] today and Pt asks if alright to [...] Description 08/28/2024 9:00 AM EST Office Visit [facility] MEDICINE [address] [place] [address] Alexander Jones MD [address] [place] [address] 10/29/2024 11:30 AM EDT Office Visit [address] [address] Vince Lockhart MD [address] [place] [address] documented as of this encounter Goals Goal [...] documented as of this encounter Care Teams Burrer Machine Relationship Specialty Start Date End Date Vince Lockhart MD [address] [place] [address] PCP - General Internal Medicine 04/10/14 [facility] 12/29/23 documented as of this encounter
--- OUTSIDE RECORDS SUMMARY | 2024-08-21 09:23 | XMS_ITS | Encounter Summary ---
Author Organization [employer] Address 75 [facility] 7t [place] [address] Care Team Providers Care Trading Assistant Name Role Phone Vince Lockhart MD Primary Care Provide r Reason for Visit * Reason Comments Med Refill Encounter Details Date Type Department Care Team ([facility] st Contact Info) Description 06/26/[address] [facility] MEDICINE 230 [place], [place] [phone] Vince Lockhart MD 230 [place], [place] [phone] Mixed hyperlipidemia Social History Tobacco Use Types [...] Description 08/28/2024 9:00 AM EST Office Visit [address] [address] Alexander Jones MD [address] [place] [address] 10/29/2024 11:30 AM EDT Office Visit [address] [address] Vince Lockhart MD [address] [place] [address] documented as of this encounter Goals Goal [...] documented as of this encounter Care Teams Trading Assistant Relationship Specialty Start Date End Date Vince Lockhart MD 230 [place] [address] PCP - General Internal Medicine 04/10/14 [facility] 12/29/23 documented as of this encounter
--- OUTSIDE RECORDS SUMMARY | 2024-08-21 09:24 | XMS_ITS | Encounter Summary ---
Author Organization [employer] Address [address] [facility] 7t [place] [address] Care Team Providers Care Track Manager Name Role Phone Vince Lockhart MD Primary Care Provide r Reason for Visit * Reason Onset Date Comments Med Refill 07/26/2024 Encounter Details Date Type Department Care Team (Late st Contact Info) Description 07/26/2024 Refill [facility] MEDICINE [address] [place] [address] Georgina Ann, GUERO Uncomplicated opioid dependence (CMS/HCC) [...] Description 08/28/2024 9:00 AM EST Office Visit [address] [address] Alexander Jones MD [address] [place] [phone] 10/29/2024 11:30 AM EDT Office Visit [address] [address] Vince Lockhart MD [address] [place] [address] documented as of this encounter Goals Goal [...] as of this encounter Care Teams Track Manager Relationship Specialty Start Date End Date Vince Lockhart MD [address] [place] [address] PCP - General Internal Medicine 04/10/14 [facility] 12/29/23 documented as of this encounter
--- OUTSIDE RECORDS SUMMARY | 2024-08-21 09:24 | XMS_ITS | Encounter Summary ---
Author Organization [employer] Address [address] [facility] 7t [place] [address] Care Team Providers Care Chief Mechanical Engineer Name Role Phone Vince Lockhart MD Primary Care Provide r Reason for Visit * Reason Onset Date Comments Med Refill 07/31/2024 Encounter Details Date Type Department Care Team (Late st Contact Info) Description 07/31/2024 Refill [facility] MEDICINE [address] [place] [address] Georgina Ann, GUERO Uncomplicated opioid dependence (CMS/HCC) [...] Description 08/28/2024 9:00 AM EST Office Visit [address] [address] Alexander Jones MD [address] [place] [address] 10/29/2024 11:30 AM EDT Office Visit [address] [address] Vince Lockhart MD [address] [place] [address] documented as of this encounter Goals Goal [...] documented as of this encounter Care Teams Chief Mechanical Engineer Relationship Specialty Start Date End Date Vince Lockhart MD [address] [place] [address] PCP - General Internal Medicine 04/10/14 [facility] 12/29/23 documented as of this encounter
--- OUTSIDE RECORDS SUMMARY | 2024-08-21 09:24 | XMS_ITS | Encounter Summary ---
Author Organization [employer] Address [address] [facility] 7t [place] [address] Care Team Providers Care Bulk Coolers Installer Name Role Phone Vince Lockhart MD Primary Care Provide r Encounter Details Date Type Department Care Team ([facility] st Contact Info) Description 07/24/2024 Telephone [facility] MEDICINE [address] [place], [place] [phone] Vince Lockhart MD [address] [place], [place] [phone] Social History Tobacco Use Types Packs/Day Years [...] 9:47 AM EST Tc from [facility] with [facility] requesting PT1 Home Address verified: Y/N: Yes [facility] Facility Address: [address] [place] [address] Escort needed: Y/N: No Do you have a wheelchair: Y/N: No If yes- Manual or electric: N/A Visits: once a week documented in this encounter Plan of Treatment Upcoming Encounters Date Type Department Care Team (Late st Contact Info) Description 08/28/2024 9:00 AM EST Office Visit [facility] MEDICINE [address] [place] [address] Alexander Jones MD [address] [place] [address] 10/29/2024 11:30 AM EDT Office Visit [facility] MEDICINE [address] [place] [phone] Vince Lockhart MD [address] [place] [phone] documented as of this encounter Goals Goal Patient Goal Type Associated Problems Recent Progress Patient-Stated? Author Patient will adhere to medication regimen Osiel Colney, PharmD Note: Difficulty with taking medications daily due to no desire documented as of this encounter Visit Diagnoses Not on filedocumented in this encounter Additional Health Concerns Assessment Noted Time PHQ-9 Depression Total Score: 4 07/02/20 24 10:58 AM EST documented as of this encounter Care Teams Bulk Coolers Installer Relationship Specialty Start Date End Date Vince Lockhart MD [address] [place] [address] PCP - General Internal Medicine 04/10/14 [facility] 12/29/23 documented as of this encounter
--- OUTSIDE RECORDS SUMMARY | 2024-08-21 09:24 | XMS_ITS | Encounter Summary ---
Author Organization [employer] Address [address] [facility] 7t [place] [address] Care Team Providers Care Tablet Tester Name Role Phone Vince Lockhart MD Primary Care Provide r Reason for Visit * Reason Comments Med Refill Encounter Details Date Type Department Care Team ([facility] st Contact Info) Description 07/24/2024 Refill [facility] MEDICINE [address] [place], [place] [phone] Vince Lockhart MD [address] [place], [place] [phone] Cocaine abuse ([facility]) Social History Tobacco Use Types Packs/Day Years [...] 08/28/2024 9:00 AM EST Office Visit [address] [address] Alexander Jones MD [address] [place] [address] 10/29/2024 11:30 AM EDT Office Visit [address] [address] Vince Lockhart MD [address] [place] [address] documented as of this encounter Goals Goal Patient Goal Type Associated Problems Recent Progress Patient-Stated? Author Patient will adhere to medication regimen General Osiel Vargas, MayteD Note: Difficulty with taking medications daily due to no desire documented as of this encounter Visit Diagnoses Diagnosis Cocaine abuse ([facility]) Nondependent cocaine abuse, unspecified documented in this encounter Additional Health Concerns Assessment Noted Time PHQ-9 Depression Total Score: 4 07/02/20 10:58 AM EST documented as of this encounter Care Teams Tablet Tester Relationship Specialty Start Date End Date Vince Lockhart MD [address] [place] [address] PCP - General Internal Medicine 04/10/14 [facility] 12/29/23 documented as of this encounter
--- OUTSIDE RECORDS SUMMARY | 2024-08-21 09:24 | XMS_ITS | Encounter Summary ---
Author Organization [employer] Address 75 [facility] 7t [place] [address] Care Team Providers Care Individual Pension Adviser Name Role Phone Vince Lockhart MD Primary Care Provide r Reason for Visit * Reason Comments Care Coordination CHW outreach for SDO H PT-1 and food needs-referral completed Encounter Details Date Type Department Care Team (Latest Contact Info) Description 07/24/2024 Patient Outreach [facility] MEDICINE [address] [place] [address] Vince Lockhart MD [address] [place] [address] Care Coordination (CHW outreach for SDOH PT-1 [...] the past 12 months, has t he [employer], gas, oil or water [employer] threatened to shut off services in your [...] Wednesdays, and Walk-In Urgent Care Located in [facility]. Patient provided with after-hours line for [facility], , which offer night time triage service and option to transfer to director on air provider if needed. documented in this encounter Plan of Treatment Upcoming Encounters Date Type Department Care Team (Late st Contact Info) Description 08/28/2024 9:00 AM EST Office Visit [facility] MEDICINE [address] [place] [address] [place] [address] 10/29/2024 11:30 AM EDT Office Visit [facility] MEDICINE [address] [place] [phone] Vince Lockhart MD [address] [place] [address] documented as of this encounter Goals Goal [...] documented as of this encounter Care Teams Individual Pension Adviser Relationship Specialty Start Date End Date Vince Lockhart MD [address] [place] [address] PCP - General Internal Medicine 04/10/14 [facility] 12/29/23 documented as of this encounter
--- OUTSIDE RECORDS SUMMARY | 2024-08-21 09:24 | XMS_ITS | Encounter Summary ---
Author Organization [employer] Address [address] [facility] [address] 7t [place] [address] Care Team Providers Care Assistant Professor Of Psychology Name Role Phone Vince Lockhart MD Primary [...] Office Visit [facility] MEDICINE [address] [place] [address] Alexander Jones MD [address] [place] [address] 10/29/2024 11:30 AM EDT Office Visit [address] [address] Vince Lockhart MD [address] [place] [address] documented as of this encounter Goals Goal [...] documented as of this encounter Care Teams Assistant Professor Of Psychology Relationship Specialty Start Date End Date Vince Lockhart MD [address] [place] [address] PCP - General Internal Medicine 04/10/14 [facility] 12/29/23 documented as of this encounter
--- OUTSIDE RECORDS SUMMARY | 2024-08-21 09:24 | XMS_ITS | Clinical Summary ---
Author Organization [employer] Address [address] [place] [address] Care Team Providers Care Gastroenterologist Name Role Phone Vince Lockhart MD Primary [...] mouth at bedtime. 30 tablet 3 Active Eliquis 5 MG tablet Active escitalopram [...] 21, 2024. 14 Film 025 2024 Active QUEtiapine (SEROquel) 400 MG tablet TAKE 1 TABLET (400 MG) BY MOUTH AT BEDTIME. 30 tablet 1 025 Active pantoprazole (ProtoNix) 40 MG EC tabletIndications :Hospital discharge follow-up TAKE 1 TABLET BY MOUTH EVERY MORNING. DO NOT CRUSH, CHEW OR SPLIT. 90 tablet 1 024 2024 Discontinued(R eorder (will not trigger notification to Pharmacy)) baclofen (Lioresal) 10 MG tabletIndications :Cocaine abuse (CMS/HCC) TAKE 1 TABLET (10 MG) BY MOUTH 3 TIMES DAILY. 90 tablet 024 2024 Discontinued QUEtiapine (SEROquel) 400 MG tablet TAKE 1 TABLET (400 MG) BY MOUTH AT BEDTIME. 30 tablet 2 024 2024 Discontinued cyclobenzaprine (Flexeril) 5 MG [...] positive. Under the care of Dr Gerber Manager Category kathleen greene 04/16/2024 who recommended Apixaban 5 mg po BID x 3 months and follow up with him. Pt reports compliance with it. Repeat CT 06/24/2024 showed: IMPRESSION: 1. No central or segmental pulmonary emboli. 2. Mild centrilobular emphysema. VTE: negative. Pneumonia due to infectious organism 01/09/2024 Assessment & Plan (01/09/2024 10:18 AM EDT): [place] [facility] [place] Acute hypoxic respiratory failure and COPD [...] chest x-ray for resolution We contacted his Manager Category Dr. Gerber. He was given an appointment for this Monday at 10:15 AM I contacted his VNA who will be arranging transportation for him. Obtain Plain x-ray of chest for f/u Pneumonia. Acute pain of right shoulder 01/09/2024 Assessment & Plan (01/09/2024 10:15 AM EDT): Seen at our [facility] 01/04/2024 Plain films showed: No acute finding. [...] PET CT , Pt referred back to [facility] Pulmonology for consideration of lung biopsy he is a patient of Dr. Gerber. While in the Hospital Pt had a repeat Chest CT 11/29/2023 ( [facility] [place] that showed: IMPRESSION: 1. Near complete [...] biopsy was aborted. Pt has appointment with Manager Category Dr. Gerber this Monday at 10:15 AM [...] PET CT Ordered, Pt referred back to [facility] Pulmonology for consideration of lung biopsy he [...] Pt tells me has an appointment with [facility] for Behavioral health 09/26/2023 I have agreed [...] Pt tells me has an appointment with [facility] for Behavioral health next week, I have [...] him to harm himself. While in the [facility] he was found to be depressed [...] insomnia Pt apparently has an appointment with 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 PLAN: 1. Follow up with [facility]: Recommended for follow-up: during AUD clinic appt [...] seen by a therapist and psychiatrist at [facility]; awaiting follow-up appointments. ice hockey coach in place through [facility] as well as attending group on Monday mornings. Patient has information about [facility] and [facility]. 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 Follow up with [facility]: Not recommended for follow-up 2. Patient goal is to remain sober 3. Behavioral Recommendations a. Comply with medication b. Attend groups c. Engage in therapy and psychiatry d. Utilize professional athletes coach as a support e. May reach out to [facility] for additional support Assessment & Plan (10/03/2022 5:03 PM EDT): Sent to ED/section 12a form filled out. Called ambulance and [facility] ED for soft sign out Benign prostatic [...] Unclear current meds, no discharge summary from [place] available. Spoke with [facility] crisis group supervisor yard Jaci And suggested to send to ED, [...] WNL. Pt was also referred to a explosive specialist to r/o hematologic conditions. vs anemia [...] WNL. Pt was also referred to a explosive specialist to r/o hematologic conditions. vs anemia of chronic disease. and to GI to r/o GIB. Pt did nto go to either. compliance is a major problem. Last CBC 06/03/[address] [facility] health care 08/01/2022 Assessment & Plan (07/02/2024 [...] control. - Seems patient got vivitrol from detox center. But has naltrexone on file; message to be conveyed to AUD treatment team. Assessment & Plan (08/15/2022 12:33 PM EST): Colonoscopy: 01/08/2018 Normal 10 year f/u Finger lesion 08/01/2022 Assessment & Plan (08/15/2022 12:37 PM EST): Pt with a previously described small round hyperkeratotic lesion on his left index finger. initially evaluated at [facility] for consideration of excision. They recommended pt see a welfare specialist. he was seen by a local welfare specialist Dr Ortiz who recommended a plastic surgeon [...] 10:35 AM EDT): He was admitted to [facility] from 11/28-12/14 due to acute metabolic encephalopathy [...] and COPD exacerbation he was transferred to [facility] 12/16/2023 psychiatric siu where he remained until 12/28/2023 His medications were adjusted and once stable he was discharged. Pt today reports he feels good, is back at alevism and feels much better. No concerns Assessment & Plan (07/04/2023 4:14 PM EST): Here after a recent Hospital admission where he was admitted for depression and underlying Bipolar disorder Assessment & Plan (04/18/2023 11:50 AM EDT): Patient here for a HDF admitted to [facility] from 04/01 until 04/03 presented via EMS for increased SOB. Admitted for COPD exacerbation, started on nebs, steroids, and cough medication. Discharged home on 2 more days of azithromycin, prednisone and codeine/guaifenesin for cough. ?? Patient was then admitted [place] [facility] [place] 04/05 until 04/07 with viral URI and COPD exacerbation. Treated with prednisone and azithromycin x 3 days. Given Breo, Spiriva and Duonebs prn. Patient improved and ambulated w/o difficulty. Discharged on 3 more days of prednisone, Spiriva, Symbicort and albuterol. Discharged home to f/u [facility] PCP. Pt was seen by pulmonology 04/14/23 [...] HDF, recently admtted and discharged 02/24 from [facility] after he presented with c/o chest and [...] 12 in the ED and admitted to [facility] from 06/21 to 07/08 for severe depression [...] stay. Patient discharged home to F/U with [facility]. ?Patient reports feeling ? better? since discharge. Using medications prescribed at discharge, and reports he is in need of refills. Patient gets help from nurse to administer medications. Patient reports having F/U with a counselor however reports that appointment is in [place] and reports interest in getting counselor or psych treatment at [facility]. Pulmonary emphysema 06/14/2022 Assessment & Plan (01/09/2024 [...] PET/CT or biopsy. I referred back to [facility] Pulmonology department since he is a patient of Buzz Barcenas and I ordered a PET-CT but this was not done ( pt was admitted to the Hospital ) Repeat Chest CT at [facility] showed: IMPRESSION: 1. Near complete resolution of [...] or biopsy. I have referred back to [facility] Pulmonology department since he is [...] he no showed Recently hospitalized 01/16/2023 at [facility] for COPD exacerbation as well as substance [...] twice, no showed Recently hospitalized 01/16/2023 at [facility] for COPD exacerbation as well as substance [...] today Patient was referred [facility]. Pt tells me he [...] Cocaine today Patient was referred for [facility]. I had a explained to patient that he is not a good candidate for Narcotics given his Hx of substance abuse and active use of Cocaine Assessment & Plan (07/04/2023 4:13 PM EST): Pt started on suboxone while in the Hospital Has an appointment at our [facility] tomorrow Recent test at [facility] 03/24/2023 was positive for Cocaine Patient was referred for our [facility] Cocaine support group. I had a explained to patient that he is not a good candidate for Narcotics given his Hx of substance abuse and active use of Cocaine Assessment & Plan (03/28/2023 1:01 PM EDT): Previous visit he told me he was not using Recent test at [facility] 03/24/2023 was positive for Cocaine Patient was [...] Plan (02/07/2023 12:55 PM EDT): Admitted to [facility] 01/16/2023 for COPD exacerbation in the setting of ongoing cocaine abuse Pt referred to the [facility] Assessment & Plan (10/03/2022 5:03 [...] EDT): I spoke with pt's VNA from [facility] . Pt is already scheduled to [...] intervention, Augustin agreed. Patient has Psychiatrist at [facility] but his VNA adriana has not been [...] help. PLAN: 1. Follow up with [facility]: Recommended for follow-up: during OBAT appt 2. Patient goal is to imporve mental health and become sober 3. Behavioral Recommendations a. Crisis Evaluation b. Taking Psych meds as prescribed c. Keeping in touch with -MR and [facility] Assessment & Plan (04/04/2023 4:02 PM EDT): Patient here for a follow up He has a VNA from [facility] . He was supposed to see [...] and others were modified. Previously admitted to [facility] from 06/21 to 07/08 for severe depression with SI and planned to OD on pills. Patient reported his son was murdered and he fell into deep depression, and relapsed to using cocaine daily. Assessment & Plan (03/07/2023 1:41 PM EDT): Patient here for a follow up I spoke with pt's VNA from [facility] . Pt is already scheduled to [...] to miss his appointments Previously admitted to [facility] from 06/21 to 07/08 for severe depression with SI and planned to OD on pills. Patient reported his son was murdered and he fell into deep depression, and relapsed to using cocaine daily. Assessment & Plan (02/07/2023 12:59 PM EDT): Patient here for a follow up Previously admitted to [facility] from 06/21 to 07/08 for severe depression [...] he was seeing Dr Jeffery Harkins in [place] The recommendation from [facility] is that once patient was stable [...] 12 in the ED and admitted to [facility] from 06/21 to 07/08 for severe depression [...] stay. Patient discharged home to F/U with [facility]. Prior to this admission pt told me he was seeing Dr Jeffery Harkins in [place] Prior to his admission he was on a lower dose of Seroquel (300 mg at bedtime plus 100 mg at bedtime). He was also on a higher dose of Mirtazapine of 30 mg at bedtime, Paxil 30 mg at HS and Klonopin 1 mg BID prescribed by Dr Jeffery Harkins. The recommendation from [facility] is that once patient was stable on Venlafaxine 75 to taper him off Mirtazapine and Klonopin. Plan: DC Paxil, Lower Klonopin to 0.5 mg po BID PRN x 1 month then every day x 1 month then every other day until DC Encounters Date Type Department Care Team Description 08/21/2024 Travel 08/20/2024 Orders Only [facility] [address] [place] [phone] Vince Lockhart MD Renal lesion (Primary Dx) 08/19/2024 Refill [facility] [address] [place] [address] Vince Lockhart MD 08/14/2024 9:00 AM EST Office Visit [facility] [address], [place] [phone] Alexander Jones MD Uncomplicated opioid dependence ([facility]/HCC) (Primary Dx) 08/14/2024 Refill [facility] [address] [place] [address] Georgina Ann, GUERO Uncomplicated opioid dependence (CMS/HCC) 08/14/2024 Patient Outreach [facility] [address] [place] [address] [facility] 08/14/2024 Travel 08/08/2024 Refill [facility] [address] [place] [address] Vince Lockhart MD 08/07/2024 9:00 AM EST Office Visit [address] [address] Alexander Jones MD Uncomplicated opioid dependence ([facility]/HCC) (Primary Dx) 08/07/2024 Telephone [facility] [address], [place] [phone] Georgina Ann RN 08/07/2024 Refill [facility] [address] [place] [address] Georgina Ann, GUERO Uncomplicated opioid dependence ([facility]/HCC) 08/07/2024 Travel 08/02/2024 Telephone [facility] [address] [place] [phone] Georgina Ann RN 08/01/2024 Telephone [facility] [address] [place] [address] Alexander Jones MD 07/31/2024 1:30 PM EST Clinical Support [address] [address] Georgina Ann, GUERO Uncomplicated opioid dependence (CMS/HCC) (Primary Dx) 07/31/2024 9:15 AM EST Office Visit [facility] [address] [place] [address] Medhat, Carla, OD Presbyopia (Primary Dx) 07/31/2024 Refill [facility] [address] [place] [address] Rashaun Vila, GUERO 07/31/2024 Travel 07/31/2024 Refill [facility] [address] [place] [address] Georgina Ann RN Uncomplicated opioid dependence ([facility]/HCC) 07/30/2024 Refill [facility] [address] [place], [place] [phone] Vince Lockhart MD Hospital discharge follow-up 07/26/2024 Refill [facility] [place] [address] Georgina Ann RN Uncomplicated opioid dependence (CMS/HCC) 07/24/2024 9:00 AM EST Office Visit [facility] [place] [address] Alexander Jones MD Opioid type dependence, continuous (CMS/HCC) (Primary Dx) 07/24/2024 Travel 07/24/2024 Patient Outreach [facility] [address] [place] [address] Vince Lockhart MD Care Coordination ([facility] outreach for SDOH PT-1 and food needs-referral completed /) 07/24/2024 Telephone [facility] [place] [address] Vince Lockhart MD 07/24/2024 Refill [facility] [place] [address] Vince Lockhart MD Cocaine abuse (CMS/HCC) 07/19/2024 Refill [facility] [place] [phone] Georgina Ann RN Uncomplicated opioid dependence (CMS/HCC) 07/03/2024 9:00 AM EST Office Visit [facility] [place] [address] Alexander Jones MD Uncomplicated opioid dependence (CMS/HCC) (Primary Dx) 07/03/2024 Travel 07/02/2024 10:30 AM EST Office Visit [facility] [place] [address] Vince Lockhart MD Sleep disturbances (Primary Dx); Elevated random blood glucose level; Acute pulmonary embolism without acute cor pulmonale, unspecified pulmonary embolism type (CMS/HCC); Primary hypertension; Cocaine abuse (CMS/HCC); Routine physical examination; 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, unspecified whether recurrent (CMS/HCC); Weight loss; Bipolar affective disorder, currently depressed, moderate (CMS/HCC); Preventative health care 07/02/2024 Refill [facility] [place] [address] Georgina Ann RN Uncomplicated opioid dependence (CMS/HCC) 07/02/2024 Travel 07/01/2024 Patient Outreach [facility] [place] [address] Vince Lockhart MD Care Coordination ([facility] outreach for SDOH PT-1 and food needs-referral completed /) 07/01/2024 Telephone [facility] [place] [address] Vince Lockhart MD PT-1 06/26/[address] [address] Vince Lockhart MD Chart Prep 06/26/[address] [address] Yvette Alford [place] 06/24/2024 Orders Only GENERIC EXTERNAL DATA DEPARTMENT Provider, Generic External Data 06/24/2024 Refill [facility] [place] [address] Georgina Ann RN Uncomplicated opioid dependence (CMS/HCC) 06/21/2024 Patient Outreach [facility] [place] [address] Vince Lockhart MD Pre-visit Planning (SDOH screening was completed on 09/25/2023) 06/18/2024 Refill [facility] [place] [address] Georgina Ann, GUERO Uncomplicated opioid dependence (CMS/HCC) 06/14/2024 Refill [facility] [address] Vince Lockhart MD 06/12/2024 9:00 AM EST Clinical Support [facility] [place] [address] Migdalia Ji RN Opioid type dependence, continuous (CMS/HCC) (Primary Dx) 06/12/2024 Travel 06/10/2024 2:00 PM EST Office Visit [facility] [address] [place] [address] Reji Manning, DMD 06/07/2024 Refill [facility] [address] [place] [address] Georgina Ann RN Uncomplicated opioid dependence (CMS/HCC) 06/05/2024 9:00 AM EST Office Visit [facility] [address] [place] [address] Alexander Jones MD Uncomplicated opioid dependence (CMS/HCC) (Primary Dx) 06/05/2024 Travel 06/03/2024 10:00 AM EST Office Visit [facility] [address] [place] [address] Reji Manning, DMD 05/30/2024 11:15 AM EST Office Visit [facility] [address] [place] [phone] Tarka, Tory, OD Epiretinal membrane, right eye (Primary Dx); Posterior vitreous detachment of both eyes; Nuclear sclerotic cataract of both eyes; Lattice degeneration of right retina; Presbyopia 05/30/2024 Travel 05/30/2024 Refill [facility] [address] [place] [address] Georgina Ann RN Uncomplicated opioid dependence (CMS/HCC) 05/29/2024 9:00 AM EST Office Visit [facility] [address] [place] [phone] Alexander Jones MD Opioid type dependence, continuous (CMS/HCC) (Primary Dx) 05/29/2024 Travel 05/23/2024 10:30 AM EST Office Visit [facility] [address] [place] [address] Reji Manning, DMD 05/23/2024 Refill [facility] [address] [place] [phone] Georgina Ann RN Uncomplicated opioid dependence (CMS/HCC) from Last 3 Months Immunizations Name Administration [...] 9:00 AM EST Office Visit [facility] [address] [place] [phone] Alexander Jones MD [address] [place] [address] 10/29/2024 11:30 AM EDT Office Visit [facility] [address] [place] [phone] Vince Lockhart MD [address] [place] [address] Health Maintenance Due Date Last Done Comments [...] Procedure Name Priority Date/Time Associated Diagnosis Comments MR LUMBAR SPINE WO CONTRAST Routine 08/19/2024 12:13 PM EST Chronic midline low back pain without sciatica POCT MARIA ANTONIA-14 URINE DRUG SCREEN Routine [...] Recently Relevant to Health Maintenance Results * MR Lumbar Spine w/o Contrast (08/19/2024 12:13 PM EST) Anatomical Region Laterality Modality Spine, L-spine Magnetic Resonan ce 08/19/2024 12:1 3 PM EST Narrative 08/19/2024 12:14 PM EST ? [facility] ?[address] ?[place] [address] ? Magnetic Resonance Report ? Signed ? Patient: Vital,Augustin ?MR#: [id number] ? : 1965 ?Acct:[id number] ? Age/Sex: 59 / M ?ADM Date: 08/18/25 ? Loc: HO.MRI ? Attending Dr: Vince Doran MD ? Ordering Physician: Vince Doran MD ?? Date of Service: 08/18/24 ?? Procedure(s): MR lumbar spine wo con ?? Accession Number(s): [id number] ? cc: Vince Doran MD ? CLINICAL HISTORY: chronic low back pain ? MR lumbar spine without gadolinium ? Comparison: None ? Findings: ?? Normal alignment without acute fracture. No marrow infiltration.Multilevel ?? disc dehydration. ? Conus terminates at L1 level. Unremarkable appearance of the visualized ?? cord and conus medullaris. ? Right renal T2 hyperintense lesion/cyst could be further evaluated with ?? ultrasound. ?? L5/S1: Mild disc bulge and facet hypertrophy associated with mild ?? bilateral neural foraminal stenosis. ? L4/L5: Short pedicles and facet /ligamentum flava hypertrophy associated ?? with mild central canal and left neural foraminal stenosis. ?? Otherwise no evidence of significant central canal, neural foraminal, or ?? lateral recess stenosis. ? IMPRESSION: ? L5/S1: Mild disc bulge and facet hypertrophy associated with mild ?? bilateral neural foraminal stenosis. ? L4/L5: Short pedicles and facet /ligamentum flava hypertrophy associated ?? with mild central canal and left neural foraminal stenosis. ? Right renal T2 hyperintense lesion/cyst could be further evaluated with ?? ultrasound. ? This document has been electronically signed by: Thao Ball MD on ?? 08/19/2024 12:13:03 ? Dictated By: ?Thoa Ball MD ? Signed By: ?<Electronically signed by Thao Ball MD in OV> ? 08/19/243 ? DD/ 12 ? TD/TT: 08/19/243 ? Aircraft Maintenance Engineer: ? Procedure Note Bao Noriega - 08/19/[address] [address] Magnetic Resonance Report Signed Patient: Loly Vital#: [id number] : 1965Acct:[id number] Age/Sex: 59 / MADM Date: 08/18/24 Loc: HO.MRI Attending Dr: Vince Doran MD Ordering Physician: Vince Doran MD Date of Service: 08/18/24 Procedure(s): MR lumbar spine wo con Accession Number(s): [id number] cc: Vince Doran MD CLINICAL HISTORY: chronic low back pain MR lumbar spine without gadolinium Comparison: None Findings: Normal alignment without acute fracture. No marrow infiltration.Multilevel disc dehydration. Conus terminates at L1 level. Unremarkable appearance of the visualized cord and conus medullaris. Right renal T2 hyperintense lesion/cyst could be further evaluated with ultrasound. L5/S1: Mild disc bulge and facet hypertrophy associated with mild bilateral neural foraminal stenosis. L4/L5: Short pedicles and facet /ligamentum flava hypertrophy associated with mild central canal and left neural foraminal stenosis. Otherwise no evidence of significant central canal, neural foraminal, or lateral recess stenosis. IMPRESSION: L5/S1: Mild disc bulge and facet hypertrophy associated with mild bilateral neural foraminal stenosis. L4/L5: Short pedicles and facet /ligamentum flava hypertrophy associated with mild central canal and left neural foraminal stenosis. Right renal T2 hyperintense lesion/cyst could be further evaluated with ultrasound. This document has been electronically signed by: Thao Ball MD on 08/19/2024 12:13:03 Dictated By: Thao Ball MD Signed By: <Electronically signed by Thao Ball MD in OV> 08/19/24 1213 DD/ 1213 TD/TT: 08/19/24 1213 Aircraft Maintenance Engineer: us Vince Avelar MD IMG MRI PROCEDURES Fi nal Result * POCT MARIA ANTONIA-14 Urine Drug Screen [...] procedure / Unknown 08/14/2024 8:56 AM EST us Alexander Jones MD POINT OF CARE TEST ENTER/EDIT OR DERABLES Final Result * Magnesium (06/24/2024 5:16 PM EST) Only the most recent of2 resultswithin the time period is included. Magnesium 2.5 1.6 - 2.6 mg/dL [facility] 06/24/2024 5:16 PM EST 06/24/2024 5:19 PM EST us Generic External Data Provider LAB BLOOD ORDERAB LES Final Result [facility] [address] [place] [address] [phone] * [facility] Chest PE Protocal (06/24/2024 5:01 PM EST) Anatomical Region Laterality Modality Body, Chest Computed Tomogra phy 06/24/2024 5:01 PM EST Narrative 06/24/2024 8:08 PM EST ? [facility] ?[address] [facility]. ?[place] [address] ? CT Scan Report ? Signed ? Patient: Vital,Augustin ?MR#: [id number] ?? [id number] ? : 1965 ?Acct:[id number] ? Age/Sex: 59 / M ?ADM Date: 12/09/24 ? Loc: HO.ED ? Attending Dr: ? Ordering Physician: Shruthi Jha ?? Date of Service: 12/09/24 ?? Procedure(s): CT angio chest PE protocol ?? Accession Number(s): [id number] ? cc: [facility]; Shruthi Jha ? EXAMINATION: ?? [...] DD/ 1701 ? TD/TT: 06/24/24 1701 ? Aircraft Maintenance Engineer: ? Procedure Note Bao Noriega - 06/24/[address] [address] [address] Scan Report Signed Patient: Loly Vital#: [id number] : 1965Acct:[id number] Age/Sex: 59 / MADM Date: 06/24/24 Loc: HO.ED Attending Dr: Ordering Physician: Shruthi Jha Date of Service: 06/24/24 Procedure(s): CT angio chest PE protocol Accession Number(s): [id number] cc: [facility]; Shruthi Jha EXAMINATION: CT ANGIOGRAM [...] by: Srini Pires MD 06/24/2024 08:06 PM [facility] Dictated By: Srini Pires MD Signed By: <Electronically signed by Srini Pires MD in OV> 06/24/242005 DD/ 00 TD/TT: 06/24/241700 Aircraft Maintenance Engineer: us [facility] External Provider IMG CT PROCEDURES Final Result * High Sensitivity Troponin I (06/24/2024 1:18 PM EST) TROPONIN I HIGH SENSITIVITY <2.7 <3.5 - 35.0 ng/L [facility] Comment:The Rosales high sens itivity Troponin-I results should beused in conjunction with other diagnostic information suchas ECG, clinical observations and information, and patientsymptoms to aid in the diagnosis of IA. 06/24/2024 1:18 PM EST 06/24/2024 1:22 PM EST us Generic External Data Provider LAB BLOOD ORDERAB LES Final Result Performing Organization Address City/[facility]/ZIP Co de Phone Number [facility] [address] [place] [phone] * SARS-CoV-2 RNA, Influenza A/B, and RSV RNA, Ql NAAT (06/24/2024 1:18 PM EST) Pathologist [facility] Influenza A PCR NEGATIVE Negative [facility] Influenza B PCR NEGATIVE Negative [facility] Resp Syncy Virus RNA Qual PCR NEGATIVE Negative [facility] SARS COV2 PCR NEGATIVE Negative [facility] Comment:All test results mus t be [...] use by authorized laboratories.Testing performed on the [employer] GeneXpert utilizingreal-time RT-PCR.All SARS CoV2 and positive influenza A/B results arereported to [facility]. 06/24/2024 1:18 PM EST 06/24/2024 1:22 PM EST us Generic External Data Provider LAB MICROBIOLOGY - GENERAL ORDERABLES Final Result Performing Organization Address City/[facility]/ZIP Co de Phone Number [facility] [address] [place] [phone] [phone] * (ABNORMAL) CBC auto differential (06/24/2024 1:18 PM EST) White Blood Count 5.6 4.8 - 10.8 X10*3/uL [facility] Red Blood Count 3.82(L) 4.60 - 5.80 X10*6/uL [facility] Hemoglobin 11.3(L) 14.0 - 18.0 g/dl [facility] Hematocrit 33.7(L) 42.0 - 52.0 % [facility] Mean Corpuscular Volume 88.2 80.0 - 98.0 fL [facility] Mean Corpuscular Hemoglobin 29.6 27.0 - 33.0 pg [facility] Mean Corpuscular HGB Conc 33.5 31.0 - 36.0 g/dl [facility] Red Cell Distribution Width 14.2 11.0 - 16.0 % [facility] Platelet Count 368 160 - 400 X10*3/uL [facility] Mean Platelet Volume 8.7(L) 9.4 - 12.4 fL [facility] Neutrophils Percent Auto 53.0 45 - 73 % [facility] Imm Gran Pct Auto 0.7(H) 0.0 - 0.4 % [facility] Lymphocytes Percent Auto 31.5 20 - 40 % [facility] Monocytes Percent Auto 10.9 2 - 11 % [facility] Eosinophils Percent Auto 3.2 0 - 4 % [facility] Basophils Percent Auto 0.7 0 - 2 % [facility] NRBC Pct Auto 0.0 0.0 - 0.2 /100WBC [facility] Neutrophils Absolute Auto 3.0 2.0 - 8.3 x10*3/uL [facility] Imm Gran Abs Auto 0.04(H) 0.00 - 0.03 X10*3/uL [facility] Lymphocytes Absolute Auto 1.8 1.2 - 4.9 X10*3/uL [facility] Monocytes Absolute Auto 0.6 0.1 - 1.2 X10*3/uL [facility] Eosinophils Absolute Auto 0.2 0.0 - 0.4 X10*3/uL [facility] Basophils Absolute Auto 0.0 0.0 - 0.2 X10*3/uL [facility] NRBC Abs Auto 0.000 0.0 - 0.012 X10*3/uL [facility] 06/24/2024 1:18 PM EST 06/24/2024 1:22 PM EST Generic External Data Provider LAB BLOOD ORDERAB LES Final Result Performing Organization Address [facility] Co de Phone Number [facility] [address] [place] [phone] * Prothrombin Time-INR (06/24/2024 1:18 PM EST) Pathologist [facility] Prothrombin Time 12.3 10.9 - 12.4 SEC [facility] INTERNATIONAL NORM RATIO 1.1 0.9 - 1.1 [facility] Comment:INTERNATIONAL NORMAL IZED RATIO (INR) REFERENCE [...] ORDERAB LES Final Result Performing Organization Address [facility] de Phone Number [facility] [address] [place] [phone] * B Type Natriuretic Peptide (BNP) (06/24/2024 1:18 PM EST) Pathologist [facility] B Type Natriuretic Peptide <10 <100 pg/mL [facility] Comment:For those patients w ho are being treated with Natrecor(nesiritide, recombinant BNP), BNP testing should beperformed at least two hours post treatment in order toensure that only endogenous levels of BNP are detected. 06/24/2024 1:18 PM EST 06/24/2024 1:22 PM EST Generic External Data Provider LAB BLOOD ORDERAB LES Final Result Performing Organization Address [facility] Co de Phone Number [facility] [address] [place] [phone] * Lipase (06/24/2024 1:18 PM EST) Pathologist [facility] Lipase 17 8 - 78 U/L [facility] 06/24/2024 1:18 PM EST 06/24/2024 1:22 PM EST [employer] External Data Provider LAB BLOOD ORDERAB LES Final Result Performing Organization Address [facility] Phone Number [facility] [address] [place] [phone] * (ABNORMAL) Comprehensive Metabolic Panel (06/24/2024 1:18 PM EST) Pathologist [facility] Sodium 138 135 - 145 mmol/L [facility] Potassium 3.8 3.3 - 5.1 mmol/L [facility] Chloride 106 96 - 108 mmol/L [facility] Carbon Dioxide 26 22 - 29 mmol/L [facility] Anion Gap 10(L) 12 - 20 [facility] Urea Nitrogen (BUN) 10 9 - 16 mg/dL [facility] Creatinine, Serum 0.60 0.5 - 1.4 mg/dL [facility] Creatinine Clr Calc Pharmacy 124.4 [facility] Comment:eGFR (calculated fro m the MDRD study equation) and eCrCl(calculated from the Cockcroft-Gault equation) are based ondifferent parameters and may not yield comparable results.If eCrCl result is absurd, please check patient'sheight/weight. Estimated Glomerular Filt Rate >60 [facility] Comment:Chronic Kidney Disea se: Estimated GFR < 60 mL/min/1.07s9Tqfaul Kidney Disease: Estimated GFR < 15 mL/min/1.73m2 Glucose 98 60 - 115 mg/dL [facility] Calcium 9.0 8.4 - 10.2 mg/dL [facility] Bilirubin, Total 0.2 0.0 - 1.0 mg/dL [facility] Aspartate Amino Transferase 20 5 - 37 U/L [facility] Alanine Aminotransferase 16 0 - 40 U/L [facility] Total Protein 6.9 6.5 - 8.0 g/dL [facility] Albumin Level 3.7 3.5 - 5.0 g/dL [facility] Alkaline Phosphatase 70 39 - 117 U/L [facility] 06/24/2024 1:18 PM EST 06/24/2024 1:22 PM EST us Generic External Data Provider LAB BLOOD ORDERAB LES Final Result [facility] [address] [place] [phone] * XR Chest 2 Views (06/24/2024 12:46 PM EST) Anatomical Region Laterality Modality Chest Radiographic Kailee ging 06/24/2024 12:4 6 PM EST Narrative 06/24/2024 2:33 PM EST ? [facility] ?[address] ?[place] [address] ?XRay Report ? Signed ? Patient: Vital,Augustin ?MR#: [id number] ?? [id number] ? : 1965 ?Acct:[id number] ? Age/Sex: 59 / M ?ADM Date: 12/09/24 ? Loc: HO.ED ? Attending Dr: ? Ordering Physician: Shruthi Jha ?? Date of Service: 06/24/24 ?? Procedure(s): XR chest 2V ?? Accession Number(s): [id number] ? cc: [facility]; Shruthi Jha ? EXAMINATION: ?? [...] ??Arlyn Rivera MD ??06/24/2024 02:30 PM EST ? Dictated By: ?Arlyn Rivera MD ? Signed By: ?<Electronically signed by Arlyn Rivera MD in OV> ? 06/24/24 1430 ? DD/ 1246 ? TD/TT: 06/24/24 1305 ? Aircraft Maintenance Engineer: PN ? Procedure Note [place], [place] - 06/24/[address] [address] XRay Report Signed Patient: Loly Vital#: [id number] : 1965Acct:[id number] Age/Sex: 59 / MADM Date: 06/24/24 Loc: HO.ED Attending Dr: Ordering Physician: Shruthi Jha Date of Service: 06/24/24 Procedure(s): XR chest 2V Accession Number(s): [id number] cc: [facility]; Shruthi Jha EXAMINATION: XR CHEST [...] by: Arlyn Rivera MD 06/24/2024 02:30 PM EST RP Dictated By: Arlyn Rivera MD Signed By: <Electronically signed by Arlyn Rivera MD in OV> 06/24/24 1430 DD/ 1246 TD/TT: 06/24/24 1305 Aircraft Maintenance Engineer: DOC [facility] External Provider IMG XR PROCEDURES Final [...] EST) Hepatitis C Antibody Reactive( A) Nonreactive [facility] Comment:Presumptive evidence of antibodies to HCV. Blood Venous blood specimen / Unknown 08/24/2023 2:22 PM EST 08/24/2023 4:01 PM EST Alexander Jones MD LAB BLOOD ORDERABLES Final Resul t [facility] [address] [place] [phone] * HIV-1/2 Antigen and Antibodies, Fourth Generation, with Reflexes (08/24/2023 2:22 PM EST) Pathologist [facility] HIV AB/AG Nonreactive Nonreactive [facility] Comment:HIV-1 p24 Ag and/or HIV-1/HIV-2 Ab not detected.A test result that is nonreactive does not exclude thepossibility of exposure to or infection with HIV-1 and/orHIV-2. Nonreactive results in this assay for individualswith prior exposure to HIV-1 and/or HIV-2 may be due toantigen and antibody levels that are below the limit ofdetection of this assay.The [employer] HIV Ag/Ab Combo assay result andsupplemental assay results should be interpreted inconjunction with the patient's clinical presentation,history and other laboratory results. If the results areinconsistent with clinical evidence, additional testing issuggested to confirm the result. Blood Venous blood specimen / Unknown 08/24/2023 2:22 PM EST 08/24/2023 4:01 PM EST us Alexander Jones MD LAB BLOOD ORDERABLES Final Resul t [facility] [address] [place] [phone] * (ABNORMAL) LIPID PANEL, STANDARD (03/01/2021 1:31 PM EDT) [facility] Chol/HDLC Ratio 5.0(H) <5.0 (calc) [facility] [...] about testing for familial hypercholesterolemia, please call [employer] Client Services at [phone].GENE.INFO. Deng Orellana, et al. J National Lipid Association ?? [...] ?? Blas PERDOMO et al. JAJA. 2013;310(19): 3152-9770 ?? (http://[employer]raft [employer]s/faq/PMW546) Non-HDL Cholesterol 210(H) <130 mg/dL (calc) [facility] Comment: For patients with diabetes plus 1 major ASCVD risk ?? factor, treating to a non-HDL-C goal of <100 mg/dL ?? (LDL-C of <70 mg/dL) is considered a therapeutic ?? option. Triglycerides 74 <150 mg/dL [facility] 03/01/2021 1:31 PM EDT Vince Avelar MD LAB BLOOD ORDERABLES Final Result [facility] [address] * Colonoscopy (01/08/2018) Colonoscopy Normal Normal 01/08/2018 Narrative Yulisa Cochran - 01/08/2018 9:39 AM EDT Recommended 10 year follow up ( per provider notes) Historical Provider HEALTH MAINTENANCE Edited Result - Final from Last 3 Months or Most Recently Relevant to Health Maintenance Insurance * Guarantor: Augustin Vital Account Type Relation to Patient Date of Phone Billing Address Personal/Family Self [address] [place], [place] [address]Remind [address] C3 Member Subscriber Plan / Payer (Ef fective 2023-Present) Name:Augustin Vital Relation to Subscriber:Self Name:Augustin Vital Payer ID:Not on file Group ID:Not on file Type:Medicaid Address: [facility] [address] [place] [address] * Guarantor: Augustin Vital Account Type Relation to Patient Date of Phone Billing Address Dental Self 1965 [address] [place], [place] [facility] MEDICAID STAND ADULT Member Subscriber Plan / Payer (Ef fective 2023-Present) Name:Augustin Vital Relation to Subscriber:Self Name:Augustin Vital Payer ID:Not on file Group ID:Not on file Type:Not on file Address: [facility] [address] [place] [address] * Guarantor: Augustin Vital Account Type Relation to Patient Date of Phone Billing Address Personal/Family Self [address] [place], [place] * Guarantor: Augustin Vital Account Type Relation to Patient Date of Phone Billing Address Personal/Family Self [address] [place], [place] Care Teams Gastroenterologist Relationship Specialty Start Date End Date Vince Lockhart MD [address] [place] [phone] PCP - General Internal Medicine 04/10/14 [facility] 12/29/23
--- OUTSIDE RECORDS SUMMARY | 2024-08-21 09:24 | XMS_ITS | Clinical Summary ---
Author Organization [facility] ity Address [address] [place] [address] Care Team Providers Care Hand Zipper Trimmer Name Role Phone Unavailable Primary Care Provider [...]
--- OUTSIDE RECORDS SUMMARY | 2024-08-21 09:24 | XMS_ITS | Encounter Summary ---
Author Organization [employer] Address [address] [place] [address] Care Team Providers Care Tubular Splitting Machine Tender Name Role Phone Vince Lockhart [...] Description 08/28/2024 9:00 AM EST Office Visit [facility] [address] [place] [phone] Alexander Jones MD [address] [place] [phone] 10/29/2024 11:30 AM EDT Office Visit [address] [address] Vince Lockhart MD [address] [place] [address] documented as of this encounter Goals Goal [...] documented as of this encounter Care Teams Tubular Splitting Machine Tender Relationship Specialty Start Date End Date Vince Lockhart MD [address] [place] [phone] PCP - General Internal Medicine 04/10/14 [facility] 12/29/23 documented as of this encounter
--- OUTSIDE RECORDS SUMMARY | 2024-08-21 09:24 | XMS_ITS | Encounter Summary ---
Author Organization [employer] Address [address] 7[address] [place] [address] Care Team Providers Care Court Of Appeals Judge Name Role Phone Vince Lockhart MD Primary Care Provide r Encounter Details Date Type Department Care Team (Late st Contact Info) Description 07/31/2024 9:15 AM EST Office Visit [facility] OPTOM[facility]RY [address] [place] [address] Medhat, Carla, OD [address] [place] [address] Presbyopia (Primary Dx) Social History Tobacco Use [...] Description 08/28/2024 9:00 AM EST Office Visit [facility] MEDICINE [address] [place] [phone] Alexander Jones MD [address] [place] [address] 10/29/2024 11:30 AM EDT Office Visit [address] [address] Vince Lockhart MD [address] [place] [address] documented as of this encounter Goals Goal Patient Goal Type Associated Problems Recent Progress Patient-Stated? Author Patient will adhere to medication regimen General No Osiel Mendez, MayteD Note: Difficulty with taking medications daily due to no desire documented as of this encounter Visit Diagnoses Diagnosis Presbyopia- Primary documented in this encounter Additional Health Concerns Assessment Noted Time PHQ-9 Depression Total Score: 4 07/02/20 24 10:58 AM EST documented as of this encounter Care Teams Court Of Appeals Judge Relationship Specialty Start Date End Date Vince Lockhart MD [address] [place] [phone] PCP - General Internal Medicine 04/10/14 [facility] 12/29/23 documented as of this encounter
--- OUTSIDE RECORDS SUMMARY | 2024-08-21 09:25 | XMS_ITS | Encounter Summary ---
Author Organization [employer] Address [address] [facility] 7t [place] [address] Care Team Providers Care Order Checker Packer Processer Name Role Phone Vince Lockhart MD Primary Care Provide r Reason for Visit * Reason Comments OBAT Encounter Details Date Type Department Care Team (Latest Contact Info) Description 07/31/2024 1:30 PM EST Clinical Support [facility] MEDICINE [address] [place] [phone] Georgina Ann, GUERO Uncomplicated opioid dependence (CMS/HCC) [...] 3 adult children (1 killed; 1 in retirement in [place]) Last LFT (04/03/2024) LAST GBAT VISIT 07/24/2024 [...] Description 08/28/2024 9:00 AM EST Office Visit [address] [phone] Alexander Jones MD [address] [place] [address] 10/29/2024 11:30 AM EDT Office Visit [address] [address] Vince Lockhart MD [address] [place] [address] documented as of this encounter Goals Goal Patient Goal Type Associated Problems Recent Progress Patient-Stated? Author Patient will adhere to medication regimen Osiel Conley, Castro Note: Difficulty with taking medications daily due to no desire documented as of this encounter Procedures Procedure Name Priority Date/Time Associated Diagnosis Comments POCT MARIA ANTONIA-14 URINE DRUG SCREEN Routine 07/31/2024 1:40 PM EST Uncomplicated opioid dependence ([facility]) documented in this encounter Results * POCT [...] documented as of this encounter Care Teams Order Checker Packer Processer Relationship Specialty Start Date End Date Vince Lockhart MD [address] [place] [address] PCP - General Internal Medicine 04/10/14 [facility] 12/29/23 documented as of this encounter
--- OUTSIDE RECORDS SUMMARY | 2024-08-21 09:25 | XMS_ITS | Encounter Summary ---
Author Organization [employer] Address [address] [facility] 7t [place] [address] Care Team Providers Care Stereotyper Name Role Phone Vince Lockhart MD Primary Care Provide r Reason for Visit * Reason Onset Date Comments PT-1 07/01/2024 Encounter Details Date Type Department Care Team ([facility] st Contact Info) Description 07/01/2024 Telephone [facility] [address] [place], [place] [phone] Vince Lockhart MD [address] [place], [place] [phone] PT-1 Social History Tobacco Use Types Packs/Day [...] Y/N: Yes Provider name or facility name: [facility] Address: [address] [place] [phone] Escort needed: Y/N: No Do you have a wheelchair: Y/N: No If yes- Manual or electric: N/A Visits: 1 every 3 months documented in this encounter Plan of Treatment Upcoming Encounters Date Type Department Care Team (Late st Contact Info) Description 08/28/2024 9:00 AM EST Office Visit [facility] [address] [place] [address] Alexander Jones MD [address] [place] [address] 10/29/2024 11:30 AM EDT Office Visit [facility] [address] [place] [address] Vince Lockhart MD [address] [place] [address] documented as of this encounter Goals Goal [...] documented as of this encounter Care Teams Stereotyper Relationship Specialty Start Date End Date Vince Lockhart MD [address] [place] [address] PCP - General Internal Medicine 04/10/14 [facility] 12/29/23 documented as of this encounter
--- OUTSIDE RECORDS SUMMARY | 2024-08-21 09:25 | XMS_ITS | Encounter Summary ---
Author Organization [employer] Address [address] [facility] [address] [place] [address] Care Team Providers Care Early Childhood Teacher Name Role Phone Vince Lockhart MD Primary Care Provide r Reason for Visit * Reason Onset Date Comments Med Refill 07/30/2024 Encounter Details Date Type Department Care Team (Late st Contact Info) Description 07/30/2024 Refill [facility] MED & PEDS [address] [place] [address] Vince Lockhart MD [address] [place], [place] [phone] Hospital discharge follow-up Social History Tobacco Use [...] Description 08/28/2024 9:00 AM EST Office Visit [address] [address] Alexander Jones MD [address] [place] [address] 10/29/2024 11:30 AM EDT Office Visit [address] [address] Vince Lockhart MD [address] [place] [address] documented as of this encounter Goals Goal [...] documented as of this encounter Care Teams Early Childhood Teacher Relationship Specialty Start Date End Date Vince Lockhart MD [address] [place] [address] PCP - General Internal Medicine 04/10/14 [facility] 12/29/23 documented as of this encounter
[2024-08-21 11:12] LABS: Estimated Average Glucose 117 mg/dL; Hemoglobin A1C 124.0293 umol/L; Hemoglobin A1c % 5.7 % (<6.0); Total Hemoglobin (HGBA1C) 3193.1328 umol/L
[2024-08-21 11:13] LABS: Anion Gap 10 (12-20); Blood Urea Nitrogen 12 mg/dL (9-16); Calcium 9.3 mg/dL (8.4-10.2); Carbon Dioxide 26 mmol/L (22-29); Chloride 107 mmol/L (96-108); Cholesterol 137 mg/dL (<200); Estimated Glomerular Filt Rate > 60; Glucose Random 114 mg/dL (60-115); HDL Cholesterol 50 mg/dL (>40); LDL Cholesterol Calculated 74 mg/dL (<100); Sodium 139 mmol/L (135-145); Triglycerides 65 mg/dL (<150)
[2024-08-21 11:35] LABS: Prostate Specific Antigen Scr 1.52 ng/mL (<0.05-4.0)
[2024-08-21 11:36] LABS: Prostate Specific Antigen 1.58 ng/mL (<0.05-4.0)
== END 2024-08-21 09:00 | disposition home or self-care (01) ==
LOC: HO.HHCL 08:59
PROVIDERS: Internal Medicine; Visit Provider Nurse Practitioner Family
DX: Z00.00 Encounter for general adult medical examination without abnormal findings (principal); R73.9 Hyperglycemia, unspecified; I10 Essential (primary) hypertension; N40.0 Benign prostatic hyperplasia without lower urinary tract symptoms
CPT/HCPCS: 36415; 80048; 80061; 83036; 84153

== ENCOUNTER 2024-09-06 14:41 | Outpatient (REF) | payer MEDICAID, SELFPAY ==
--- NOTE | ~2024-09-06 | US_ITS ---
CLINICAL HISTORY: renal lesions on MRI of Lumbar spine US RENAL Comparison: MR - MR LUMBAR SPINE WO CON - 08/18/24 11:35 EST Findings: The right kidney measures 10.4 cm in length. There are multiple intrarenal calculi that measure up to 6 mm. No hydronephrosis. There is a 2.4 x 1.9 x 2.1 cm cyst. The left kidney measures 11.0 cm in length. There are several intrarenal calculi that measure up to 9 mm. No hydronephrosis. No cortical mass lesion. IMPRESSION: 1. 2.4 cm right renal cyst. 2. No hydronephrosis. 3. Nonobstructing bilateral nephrolithiasis. This document has been electronically signed by: Radha Braun DO on 09/09/2024 15:50:41
--- OUTSIDE RECORDS SUMMARY | 2024-09-06 14:59 | XMS_ITS | Encounter Summary ---
Author Organization [employer] Address [address] [facility] 7t [place] [address] Care Team Providers Care Metal Sander Name Role Phone Vince Lockhart MD Primary Care Provide r Reason for Visit * Reason Comments GBAT Encounter Details Date Type Department Care Team (Latest Contact Info) Description 08/07/2024 9:[address] EST Office [address] [facility] [address] [place], [place] [phone] Alexander Jnoes MD [address] [place], [place] [phone] Uncomplicated opioid dependence (CMS/HCC) (Primary Dx) Social [...] 3 adult children (1 killed; 1 in [facility] in [place]) Last LFT (04/03/2024) LAST GBAT VISIT : [...] at the visit: Team RN, MAT Physician, Data Specialist, Clinician, and Csm Consultant Opportunities provided to address individual medical/medication/ concerns [...] orders for this visit: Uncomplicated opioid dependence ([facility]) (Primary) - POCT MARIA ANTONIA-14 Urine Drug [...] Care Team (Late st Contact Info) Description 09/11/2024 9:00 AM EST Office Visit [address] [address] Alexander Jones MD [address] [place] [address] 09/18/2024 9:00 AM EST Office Visit [address] [address] Alexander Jones MD [address] [place] [address] 10/29/2024 11:30 AM EDT Office Visit [address] [phone] Vince Lockhart MD [address] [place] [phone] documented as of this encounter Goals Goal Patient Goal Type Associated Problems Recent Progress Patient-Stated? Author Patient will adhere to medication regimen General On track( 025 3:09 PM EST) Osiel Vargas PharmD Note: Difficulty with taking medications daily due to no desire documented as of this encounter Procedures Procedure Name Priority Date/Time Associated Diagnosis Comments POCT MARIA ANTONIA-14 URINE DRUG SCREEN Routine 08/07/2024 9:10 AM EST Uncomplicated opioid dependence (CMS/HCC) documented in this encounter Results * POCT [...] documented as of this encounter Care Teams Metal Sander Relationship Specialty Start Date End Date Vince Lockhart MD [address] [place] [phone] PCP - General Internal Medicine 04/10/14 [facility] 12/29/23 documented as of this encounter
--- OUTSIDE RECORDS SUMMARY | 2024-09-06 14:59 | XMS_ITS | Encounter Summary ---
Author Organization [employer] Address 75 [facility] 7t [place] [address] Care Team Providers Care Superintendent Communications Name Role Phone Vince Lockhart MD Primary Care Provide r Osiel Mendez PharmD Unavailable [phone] Encounter Details Date Type Department Care Team (Late st Contact Info) Description 01/12/2023 Abstract [facility] MEDICINE 230 [place], [place] [phone] Vince Lockhart MD 230 [place], [place] [phone] Social History Tobacco Use Types Packs/Day Years [...] Description 09/11/2024 9:00 AM EST Office Visit [facility] [place] [address] Alexander Jones MD [facility] [place] [address] 09/18/2024 9:00 AM EST Office Visit [facility] [place] [address] Alexander Jones MD [facility] [place] [phone] 10/29/2024 11:30 AM EDT Office Visit [facility] [place] [address] Vince Lockhart MD [facility] [place], [place] [phone] documented as of this encounter Goals Goal [...] documented as of this encounter Care Teams Superintendent Communications Relationship Specialty Start Date End Date Vince Lockhart MD [facility] [place] [address] PCP - General Internal Medicine 04/10/14 Osiel Mendez PharmD [facility] [place] [address] Pharmacist Internal Medicine 12/19/22 06/11/23 [facility] 12/29/23 documented as of this encounter
--- OUTSIDE RECORDS SUMMARY | 2024-09-06 14:59 | XMS_ITS | Encounter Summary ---
Author Organization [employer] Address 75 [facility] 7t [place] [address] Care Team Providers Care Strip Polisher Name Role Phone Vince Lockhart MD Primary Care Provide r Reason for Visit * Reason Comments Recovery Supports Encounter Details Date Type Department Care Team (Late st Contact Info) Description 08/14/2024 Patient Outreach [facility] MEDICINE 230 [place] [address] Trenton Holloway Recovery Supports Social History Tobacco [...] with Augustin strange. Setting: in person at [facility] Recovery Wellness Goals worked on: Social Stability Action taken/next steps: Attended recovery support group and Offered person centered recovery support Additional comments: CHRISTINE Holloway documented in this encounter Plan of Treatment Upcoming Encounters Date Type Department Care Team (Late st Contact Info) Description 09/11/2024 9:00 AM EST Office Visit [address] [address] Alexander Jones MD [address] [place] [address] 09/18/2024 9:00 AM EST Office Visit [address] [address] Alexander Jones MD [address] [place] [address] 10/29/2024 11:30 AM EDT Office Visit [address] [address] Vince Lockhart MD 230 [place] [address] documented as of this encounter Goals Goal Patient Goal Type Associated Problems Recent Progress Patient-Stated? Author Patient will adhere to medication regimen General On track( 025 3:09 PM EST) Osiel Vargas, PharmD Note: Difficulty with taking medications daily due to no desire documented as of this encounter Visit Diagnoses Not on filedocumented in this encounter Additional Health Concerns Assessment Noted Time PHQ-9 Depression Total Score: 4 07/02/20 24 10:58 AM EST documented as of this encounter Care Teams Strip Polisher Relationship Specialty Start Date End Date Vince Lockhart MD 230 [place] [address] PCP - General Internal Medicine 04/10/14 [facility] 12/29/23 documented as of this encounter
--- OUTSIDE RECORDS SUMMARY | 2024-09-06 14:59 | XMS_ITS | Encounter Summary ---
Author Organization [employer] Address 75 [facility] 7t [place] [address] Care Team Providers Care Account Services Analyst Name Role Phone Vince Lockhart MD Primary Care Provide r Reason for Visit * Reason Comments Med Refill Encounter Details Date Type Department Care Team ([facility] st Contact Info) Description 08/08/2024 Refill [facility] MEDICINE 230 [place], [place] [phone] Vince Lockhart MD 230 [place], [place] [phone] Social History Tobacco Use Types Packs/Day Years [...] Description 09/11/2024 9:00 AM EST Office Visit [address] [address] Alexander Jones MD [address] [place] [address] 09/18/2024 9:00 AM EST Office Visit [address] [address] Alexander Jones MD [address] [place] [address] 10/29/2024 11:30 AM EDT Office Visit [address] [address] Vince Lockhart MD [address] [place] [address] documented as of this encounter Goals Goal Patient Goal Type Associated Problems Recent Progress Patient-Stated? Author Patient will adhere to medication regimen General On track( 025 3:09 PM EST) No Osiel Mendez, MayteD Note: Difficulty with taking medications daily due to no desire documented as of this encounter Visit Diagnoses Not on filedocumented in this encounter Additional Health Concerns Assessment Noted Time PHQ-9 Depression Total Score: 4 07/02/20 24 10:58 AM EST documented as of this encounter Care Teams Account Services Analyst Relationship Specialty Start Date End Date Vince Lockhart MD [address] [place] [address] PCP - General Internal Medicine 04/10/14 [facility] 12/29/23 documented as of this encounter
--- OUTSIDE RECORDS SUMMARY | 2024-09-06 14:59 | XMS_ITS | Encounter Summary ---
Author Organization [employer] Address 75 [facility] 7t [place] [address] Care Team Providers Care Deputy Coroner Investigator Name Role Phone Vince Lockhart MD Primary Care Provide r Encounter Details Date Type Department Care Team ([facility] st Contact Info) Description 06/19/2023 Telephone [facility] MEDICINE 230 [place], [place] [phone] Vince Lockhart MD 230 [place], [place] [phone] Social History Tobacco Use Types Packs/Day Years [...] Description 09/11/2024 9:00 AM EST Office Visit [address] [address] Alexander Jones MD [address] [place] [address] 09/18/2024 9:00 AM EST Office Visit [address] [address] Alexander Jones MD [address] [place] [address] 10/29/2024 11:30 AM EDT Office Visit [address] [address] Vince Lockhart MD [address] [place] [address] documented as of this encounter Goals Goal Patient Goal Type Associated Problems Recent Progress Patient-Stated? Author Patient will adhere to medication regimen General On track( 025 3:09 PM EST) Osiel Vargas, MayteD Note: Difficulty with taking medications daily due to no desire documented as of this encounter Visit Diagnoses Not on filedocumented in this encounter Additional Health Concerns Assessment Noted Time PHQ-9 Depression Total Score: 26 023 2:35 PM EDT documented as of this encounter Care Teams Deputy Coroner Investigator Relationship Specialty Start Date End Date Vince Lockhart MD [address] [place] [address] PCP - General Internal Medicine 04/10/14 [facility] 12/29/23 documented as of this encounter
--- OUTSIDE RECORDS SUMMARY | 2024-09-06 14:59 | XMS_ITS | Encounter Summary ---
Author Organization [employer] Address [address] [facility] [address] 7t [place] [address] Care Team Providers Care Vehicle Inspector Name Role Phone Vince Lockhart MD [...] 09/11/2024 9:00 AM EST Office Visit [address] [address] Alexander Jones MD [address] [place] [address] 09/18/2024 9:00 AM EST Office Visit [address] [address] Alexander Jones MD [address] [place] [address] 10/29/2024 11:30 AM EDT Office Visit [address] [address] Vince Lockhart MD [address] [place] [address] documented as of this encounter Goals Goal Patient Goal Type Associated Problems Recent Progress Patient-Stated? Author Patient will adhere to medication regimen General On track( 025 3:09 PM EST) Osiel Vargas, Castro Note: Difficulty with taking medications daily due to no desire documented as of this encounter Visit Diagnoses Not on filedocumented in this encounter Additional Health Concerns Assessment Noted Time PHQ-9 Depression Total Score: 4 12/17/20 24 10:58 AM EST documented as of this encounter Care Teams Vehicle Inspector Relationship Specialty Start Date End Date Vince Lockhart MD [address] [place] [address] PCP - General Internal Medicine 04/10/14 [facility] [place] 12/29/23 documented as of this encounter
--- OUTSIDE RECORDS SUMMARY | 2024-09-06 14:59 | XMS_ITS | Encounter Summary ---
Author Organization [employer] Address 75 [facility] 7t [place] [address] Care Team Providers Care Dental Front Office Assistant Name Role Phone Vince Lockhart MD Primary Care Provide r Osiel Mendez PharmD Unavailable [phone] Reason for Visit * Reason Comments Med Refill Encounter Details Date Type Department Care Team (Late st Contact Info) Description 03/01/2023 Refill [facility] MEDICINE 230 [place], [place] [phone] Vince Lockhart MD 230 [place], [place] [phone] Depressive disorder Social History Tobacco Use Types [...] Pt [facility] a [facility]d [facility] documented in this encounter Plan of Treatment Upcoming Encounters Date Type Department Care Team (Late st Contact Info) Description 09/11/2024 9:00 AM EST Office Visit [address] [address] Alexander Jones MD [address] [place] [address] 09/18/2024 9:00 AM EST Office Visit [address] [address] Alexander Jones MD [address] [place] [address] 10/29/2024 11:30 AM EDT Office Visit [address] [address] Vince Lockhart MD [address] [place] [address] documented as of this encounter Goals Goal Patient Goal Type Associated Problems Recent Progress Patient-Stated? Author Patient will adhere to medication regimen General On track( 025 3:09 PM EST) No Osiel Mendez PharmD Note: Difficulty with taking medications daily due to no desire documented as of this encounter Visit Diagnoses Diagnosis Depressive disorder Depressive disorder, not elsewhere classified documented in this encounter Additional Health Concerns Assessment Noted Time PHQ-9 Depression Total Score: 8 12/17/19 23 1:48 PM EDT documented as of this encounter Care Teams Dental Front Office Assistant Relationship Specialty Start Date End Date Vince Lockhart MD [address] [place] [address] PCP - General Internal Medicine 04/10/14 Osiel Mendez PharmD [address] [place] [address] Pharmacist Internal Medicine 12/19/22 06/11/23 [facility] 12/29/23 documented as of this encounter
--- OUTSIDE RECORDS SUMMARY | 2024-09-06 14:59 | XMS_ITS | Encounter Summary ---
Author Organization [employer] Address 75 [facility] 7t [place] [address] Care Team Providers Care Aviation Electrical Technician Name Role Phone Vince Lockhart MD Primary Care Provide r Reason for Referral * Imaging (Routine) - Authorized Specialty Diagnoses / Procedures Referred By Contac t Referred To Contact Radiology Diagnoses Renal lesion Procedures US RENAL BI Vince Lockhart MD 230 [place] [address] Phone: tel: fax: [address] Phone: tel: fax: Referral ID Status Reason Start Date Expiration Date V isits Requested Visits Authorized [id number] Authorized 08/20/2024 08/20/2025 1 1 Encounter Details Date Type Department Care Team (Late st Contact Info) Description 08/20/2024 Orders Only [facility] MEDICINE 230 [place], [place] [phone] Vince Lockhart MD 230 [place], [place] [phone] Renal lesion (Primary Dx) Social History Tobacco [...] Description 09/11/2024 9:00 AM EST Office Visit [facility] MEDICINE 230 [place] [address] Alexander Jones MD 230 [place] [address] 09/18/2024 9:00 AM EST Office Visit [facility] MEDIC[facility] [place] [address] Alexander Jones MD [facility] [place] [address] 10/29/2024 11:30 AM EDT Office Visit [facility] [place] [address] Vince Lockhart MD 230 [facility] [place] [address] Scheduled Orders Name Type Priority Associated Diagnoses [...] documented as of this encounter Care Teams Aviation Electrical Technician Relationship Specialty Start Date End Date Vince [place] [address] PCP - General Internal Medicine 04/10/14 [facility] 12/29/23 documented as of this encounter
--- OUTSIDE RECORDS SUMMARY | 2024-09-06 14:59 | XMS_ITS | Encounter Summary ---
Author Organization [employer] Address 75 [facility] 7t [place] [address] Care Team Providers Care Equipment Operator/Laborer/Supervisor Name Role Phone Vince Lockhart MD Primary Care Provide r Osiel Mendez PharmD Unavailable [phone] Reason for Visit * Reason Comments Med Refill Encounter Details Date Type Department Care Team ([facility] Contact Info) Description 10/07/2022 Refill [facility] MEDICINE 230 [place] [address] Vince Lockhart MD 230 [place], [place] [phone] Depressive disorder Social History Tobacco Use Types [...] Department Care Team (Late Contact Info) Description 09/11/2024 9:00 AM EST Office Visit [facility] MEDICINE 230 [place] [address] [place] [address] 09/18/2024 9:00 AM EST Office Visit [facility] [place] [address] Alexander Jones MD [facility] [place] [phone] 10/29/2024 11:30 AM EDT Office Visit [facility] [place] [phone] Vince Lockhart MD [place] [phone] documented as of this encounter Visit Diagnoses Diagnosis Depressive disorder Depressive disorder, not elsewhere classified documented in this encounter Care Teams Equipment Operator/Laborer/Supervisor Relationship Specialty Start Date End Date [place] [address] PCP - General Internal Medicine 04/10/14 Osiel Mendez PharmD [facility] [place] [address] Pharmacist Internal Medicine 12/19/22 06/11/23 [facility] 12/29/23 documented as of this encounter
--- OUTSIDE RECORDS SUMMARY | 2024-09-06 14:59 | XMS_ITS | Encounter Summary ---
Author Organization [employer] Address [address] [facility] [address] 7t [place] [address] Care Team Providers Care Senior Gamemaster Name Role Phone Vince Lockhart MD Primary [...] Description 09/11/2024 9:00 AM EST Office Visit [address] [address] Alexander Jones MD [address] [place] [address] 09/18/2024 9:00 AM EST Office Visit [address] [address] Alexander Jones MD [address] [place] [address] 10/29/2024 11:30 AM EDT Office Visit [address] [address] Vince Lockhart MD [address] [place] [address] documented as of this encounter Goals Goal [...] as of this encounter Care Teams Senior Gamemaster Relationship Specialty Start Date End Date Vince Lockhart MD [address] [place] [address] PCP - General Internal Medicine 04/10/14 [facility] 12/29/23 documented as of this encounter
--- OUTSIDE RECORDS SUMMARY | 2024-09-06 14:59 | XMS_ITS | Encounter Summary ---
Author Organization [employer] Address 75 [facility] 7t [place] [address] Care Team Providers Care Cdl Dedicated Truck Driver Name Role Phone Vince Lockhart MD Primary Care Provide r Reason for Visit * Reason Comments GBAT Encounter Details Date Type Department Care Team (Latest Contact Info) Description 08/14/2024 9:00 AM EST Office Visit [facility] MEDICINE 230 [place], [place] [phone] Alexander Jones MD 230 [place], [place] [phone] Uncomplicated opioid dependence (CMS/HCC) (Primary Dx) Social [...] 3 adult children (1 killed; 1 in custodial in [place]) Last LFT (04/03/2024) LAST GBAT VISIT 08/07/2024 [...] at the visit: Team RN, MAT Physician, Maintenance Mechanic, Clinician, and Gas Analyst Opportunities provided to address individual medical/medication/ concerns [...] at the visit: Team RN, MAT Physician, Maintenance Mechanic, Clinician, and Gas Analyst Opportunities provided to address individual medical/medication/ concerns [...] orders for this visit: Uncomplicated opioid dependence ([facility]) (Primary) - POCT MARIA ANTONIA-14 Urine [...] Description 09/11/2024 9:00 AM EST Office Visit [address] [address] Alexander Jones MD [address] [place] [address] [phone] 09/18/2024 9:00 AM EST Office Visit [address] [phone] Alexander Jones MD [address] [place] [address] [phone] 10/29/2024 11:30 AM EDT Office Visit [address] [phone] Vince Lockhart MD [address] [place] [address] [phone] documented as of this encounter Goals Goal [...] 08/14/2024 8:56 AM EST Uncomplicated opioid dependence ([facility]) documented in this encounter Results * [...] documented as of this encounter Care Teams Cdl Dedicated Truck Driver Relationship Specialty Start Date End Date Vince Lockhart MD [address] [place] [address] PCP - General Internal Medicine 04/10/14 [facility] 12/29/23 documented as of this encounter
--- OUTSIDE RECORDS SUMMARY | 2024-09-06 14:59 | XMS_ITS | Encounter Summary ---
Author Organization [employer] Address 75 [facility] 7t [place] [address] Care Team Providers Care Software Manager Name Role Phone Vince Lockhart MD Primary Care Provide r Osiel Mendez PharmD Unavailable [phone] Encounter Details Date Type Department Care Team ([facility] st Contact Info) Description 03/01/2023 Telephone [facility] MEDICINE 230 [place], [place] [phone] Vince Lockhart MD 230 [place], [place] [phone] Social History Tobacco Use Types Packs/Day Years [...] 10:37 AM EDT Tc from [facility]son with [facility] requesting a call from a nurse in regards to having conflict with another agency. Please contact wilson at [phone] documented in this encounter Plan of Treatment Upcoming Encounters Date Type Department Care Team (Late st Contact Info) Description 09/11/2024 9:00 AM EST Office Visit [address] [address] Alexander Jones MD [address] [place] [address] 09/18/2024 9:00 AM EST Office Visit [address] [address] Alexander Jones MD [address] [place] [address] 10/29/2024 11:30 AM EDT Office Visit [address] [address] Vince Lockhart MD [address] [place] [address] documented as of this encounter Goals Goal [...] documented as of this encounter Care Teams Software Manager Relationship Specialty Start Date End Date Vince Lockhart MD [address] [place] [address] PCP - General Internal Medicine 04/10/14 Osiel Mendez PharmD [address] [place] [address] Pharmacist Internal Medicine 12/19/22 06/11/23 [facility] [place] 12/29/23 documented as of this encounter
--- OUTSIDE RECORDS SUMMARY | 2024-09-06 14:59 | XMS_ITS | Encounter Summary ---
Author Organization [employer] Address 75 [facility] 7t [place] [address] Care Team Providers Care Windmill Mechanic Name Role Phone Vince Lockhart MD Primary Care Provide r Reason for Visit * Reason Onset Date Comments Med Refill 08/14/2024 Encounter Details Date Type Department Care Team (Late st Contact Info) Description 08/14/2024 Refill [facility] MEDICINE 230 [place] [address] Georgina Ann, GUERO Uncomplicated opioid dependence (CMS/HCC) [...] Description 09/11/2024 9:00 AM EST Office Visit [address] [address] Alexander Jones MD [address] [place] [address] 09/18/2024 9:00 AM EST Office Visit [address] [address] Alexander Jones MD [address] [place] [address] 10/29/2024 11:30 AM EDT Office Visit [address] [address] Vince Lockhart MD [address] [place] [address] documented as of this encounter Goals Goal [...] documented as of this encounter Care Teams Windmill Mechanic Relationship Specialty Start Date End Date Vince Lockhart MD [address] [place] [address] PCP - General Internal Medicine 04/10/14 [facility] 12/29/23 documented as of this encounter
--- OUTSIDE RECORDS SUMMARY | 2024-09-06 14:59 | XMS_ITS | Encounter Summary ---
Author Organization [employer] Address 75 [facility] 7t [place] [address] Care Team Providers Care Pretzel Twister Name Role Phone Vince Lockhart MD Primary Care Provide r Osiel Mendez PharmD Unavailable [phone] Encounter Details Date Type Department Care Team (Late Contact Info) Description 11/24/2022 Abstract [facility] MEDICINE 230 [place] [address] Vince Lockhart MD 230 [place], [place] [phone] Social History Tobacco Use Types Packs/Day Years [...] Description 09/11/2024 9:00 AM EST Office Visit [facility] MEDICINE 230 [place], [place] [phone] [place] [address] 09/18/2024 9:00 AM EST Office Visit [facility] [place] [address] [place] [address] 10/29/2024 11:30 AM EDT Office Visit [facility] [place] [address] Vince Lockhart MD [place] [phone] documented as of this encounter Procedures Procedure Name Priority Date/Time Associated Diagnosis Comments COLONOSCOPY Routine 01/08/2018 documented in this encounter Results * Colonoscopy (01/08/2018) Colonoscopy Normal Normal 01/08/2018 Narrative Yulisa Cochran - 01/08/2018 9:39 AM EDT Recommended 10 year follow up ( per provider notes) Historical Provider [facility] Edited Result - Final documented in this encounter Visit Diagnoses Not on filedocumented in this encounter Care Teams Pretzel Twister Relationship Specialty Start Date End Date Vince Lockhart MD [place] [phone] PCP - General Internal Medicine 04/10/14 Osiel Mendez PharmD [place] [phone] Pharmacist Internal Medicine 12/19/22 06/11/23 [facility] 12/29/23 documented as of this encounter
--- OUTSIDE RECORDS SUMMARY | 2024-09-06 14:59 | XMS_ITS | Encounter Summary ---
Author Organization [employer] Address [address] [facility] [address] 7t [place] [address] Care Team Providers Care Seat Mender Name Role Phone Vince Lockhart MD Primary [...] Description 09/11/2024 9:00 AM EST Office Visit [address] [address] Alexander Jones MD [address] [place] [address] 09/18/2024 9:00 AM EST Office Visit [address] [address] Alexander Jones MD [address] [place] [address] 10/29/2024 11:30 AM EDT Office Visit [address] [address] Vince Lockhart MD [address] [place] [address] documented as of this encounter Goals Goal [...] documented as of this encounter Care Teams Seat Mender Relationship Specialty Start Date End Date Vince Lockhart MD [address] [place] [address] PCP - General Internal Medicine 04/10/14 [facility] 12/29/23 documented as of this encounter
--- OUTSIDE RECORDS SUMMARY | 2024-09-06 14:59 | XMS_ITS | Encounter Summary ---
Author Organization [employer] Address 75 [facility] 7t [place] [address] Care Team Providers Care Lead Php Developer Name Role Phone Vince Lockhart MD Primary Care Provide r Reason for Visit * Reason Comments Med Refill Encounter Details Date Type Department Care Team (Late st Contact Info) Description 08/19/2024 Refill [facility] MEDICINE 230 [place], [place] [phone] Vince Lochkart MD 230 [place], [place] [phone] Social History Tobacco Use Types Packs/Day Years [...] Description 09/11/2024 9:00 AM EST Office Visit [address] [address] Alexander Jones MD [address] [place] [address] 09/18/2024 9:00 AM EST Office Visit [address] [address] Alexander Jones MD [address] [place] [address] 10/29/2024 11:30 AM EDT Office Visit [address] [address] Vince Lockhart MD [address] [place] [address] documented as of this encounter Goals Goal [...] documented as of this encounter Care Teams Lead Php Developer Relationship Specialty Start Date End Date Vince Lockhart MD [address] [place] [address] PCP - General Internal Medicine 04/10/14 [facility] 12/29/23 documented as of this encounter
--- OUTSIDE RECORDS SUMMARY | 2024-09-06 14:59 | XMS_ITS | Encounter Summary ---
Author Organization [employer] Address 75 [facility] 7t [place] [address] Care Team Providers Care Cushion Sewer Name Role Phone Vince Lockhart MD Primary Care Provide r Osiel Mendez PharmD Unavailable [phone] Reason for Visit * Reason Comments Med Refill Encounter Details Date Type Department Care Team ([facility] st Contact Info) Description 06/02/2023 Refill [facility] MEDICINE 230 [place], [place] [phone] Vince Lockhart MD 230 [place], [place] [phone] Depressive disorder Social History Tobacco Use Types [...] the past 12 months, has t he [employer], gas, oil or water company threatened to [...] Description 09/11/2024 9:00 AM EST Office Visit [address] [address] Alexander Jones MD [address] [place] [address] 09/18/2024 9:00 AM EST Office Visit [address] [address] Alexander Jones MD [address] [place] [address] 10/29/2024 11:30 AM EDT Office Visit [address] [address] Vince Lockhart MD [address] [place] [address] documented as of this encounter Goals Goal Patient Goal Type Associated Problems Recent Progress Patient-Stated? Author Patient will adhere to medication regimen General On track( 025 3:09 PM EST) No Osiel Mendez, Castro Note: Difficulty with taking medications daily due to no desire documented as of this encounter Visit Diagnoses Diagnosis Depressive disorder Depressive disorder, not elsewhere classified documented in this encounter Additional Health Concerns Assessment Noted Time PHQ-9 Depression Total Score: 26 023 2:35 PM EDT documented as of this encounter Care Teams Cushion Sewer Relationship Specialty Start Date End Date Vince Lockhart MD 230 [place] [address] PCP - General Internal Medicine 04/10/14 Osiel Mendez, MayteD 230 [place] [address] Pharmacist Internal Medicine 12/19/22 06/11/23 [facility] 12/29/23 documented as of this encounter
--- OUTSIDE RECORDS SUMMARY | 2024-09-06 14:59 | XMS_ITS | Encounter Summary ---
Author Organization [employer] Address 75 [facility] 7t [place] [address] Care Team Providers Care Elevators Inspector Name Role Phone Vince Lockhart MD Primary Care Provide r Reason for Visit * Reason Onset Date Comments Med Refill 08/07/2024 Encounter Details Date Type Department Care Team (Late st Contact Info) Description 08/07/2024 Refill [facility] MEDICINE 230 [place] [address] Georgina Ann, GUERO Uncomplicated opioid dependence (CMS/HCC) [...] Description 09/11/2024 9:00 AM EST Office Visit [address] [address] Alexander Jones MD [address] [place] [address] 09/18/2024 9:00 AM EST Office Visit [address] [address] Alexander Jones MD [address] [place] [address] 10/29/2024 11:30 AM EDT Office Visit [address] [address] Vince Lockhart MD [address] [place] [address] documented as of this encounter Goals Goal [...] documented as of this encounter Care Teams Elevators Inspector Relationship Specialty Start Date End Date Vince Lockhart MD [address] [place] [address] PCP - General Internal Medicine 04/10/14 [facility] 12/29/23 documented as of this encounter
--- OUTSIDE RECORDS SUMMARY | 2024-09-06 14:59 | XMS_ITS | Encounter Summary ---
Author Organization [employer] Address 75 [facility] 7t [place] [address] Care Team Providers Care Costume Cutter Name Role Phone Vince Lockhart MD Primary Care Provide r Osiel Mendez PharmD Unavailable [phone] Reason for Visit * Reason Onset Date Comments Med Refill 05/16/2023 Encounter Details Date Type Department Care Team ([facility] st Contact Info) Description 05/16/2023 Telephone [facility] MEDICINE 230 [place], [place] [phone] Vince Lockhart MD 230 [place], [place] [phone] Med Refill Social History Tobacco Use Types [...] the past 12 months, has t he [employer], gas, oil or water company threatened to [...] - 05/16/2023 12:54 PM EDT Tc from [facility] requesting med refill on; clonazePAM (KlonoPIN) 0.5 MG tablet documented in this encounter Plan of Treatment Upcoming Encounters Date Type Department Care Team (Late st Contact Info) Description 09/11/2024 9:00 AM EST Office Visit [facility] MEDICINE [address] [place] [address] Alexander Jones MD [address] [place] [address] 09/18/2024 9:00 AM EST Office Visit [address] [address] Alexander Jones MD [address] [place] [address] 10/29/2024 11:30 AM EDT Office Visit [address] [address] Vince Lockhart MD 230 [place] [address] documented as of this encounter Goals Goal [...] documented as of this encounter Care Teams Costume Cutter Relationship Specialty Start Date End Date Vince Lockhart MD [address] [place] [address] PCP - General Internal Medicine 04/10/14 Osiel Mendez, PharmD [address] [place] [address] Pharmacist Internal Medicine 12/19/22 06/11/23 [facility] 12/29/23 documented as of this encounter
--- OUTSIDE RECORDS SUMMARY | 2024-09-06 14:59 | XMS_ITS | Encounter Summary ---
Author Organization [employer] Address [address] [facility] [address] 7t [place] [address] Care Team Providers Care Mold Repair Technician Name Role Phone Vince Lockhart MD Primary Care Provide r Encounter Details Date Type Department Care Team ([facility] st Contact Info) Description 08/07/2024 Telephone [facility] MEDICINE 230 [place] [address] Georgina Ann RN Social History Tobacco Use [...] Description 09/11/2024 9:00 AM EST Office Visit [facility] MEDICINE 230 [place] [address] Alexander Jones MD 230 [place] [address] 09/18/2024 9:00 AM EST Office Visit [facility] [place] [address] Alexander Jones MD [facility] [place] [address] 10/29/2024 11:30 AM EDT Office Visit [facility] [place] [address] Vince Lockhart MD [facility] [place] [address] documented as of this encounter Goals Goal [...] as of this encounter Care Teams Mold Repair Technician Relationship Specialty Start Date End Date Vince Lockhart MD [facility] [place] [address] PCP - General Internal Medicine 04/10/14 [facility] 12/29/23 documented as of this encounter
--- OUTSIDE RECORDS SUMMARY | 2024-09-06 14:59 | XMS_ITS | Encounter Summary ---
Author Organization [employer] Address 75 [facility] 7t [place] [address] Care Team Providers Care Podiatric Aide Name Role Phone Vince Lockhart MD Primary Care Provide r Osiel Mendez PharmD Unavailable [phone] Reason for Visit * Reason Onset Date Comments Med Refill 12/06/2022 Encounter Details Date Type Department Care Team (Late st Contact Info) Description 12/06/2022 Telephone [facility] MEDICINE 230 [place], [place] [phone] Vince Lockhart MD 230 [place], [place] [phone] Med Refill Social History Tobacco Use Types [...] Description 09/11/2024 9:00 AM EST Office Visit [facility] [place] [address] Alexander Jones MD [facility] [place] [address] 09/18/2024 9:00 AM EST Office Visit [address] [place] [address] Alexander Jones MD [facility] [place] [address] 10/29/2024 11:30 AM EDT Office Visit [facility] [place] [address] Vince Lockhart MD [address] [place] [address] documented as of this encounter Goals Goal Patient Goal Type Associated Problems Recent Progress Patient-Stated? Author Patient will adhere to medication regimen General On track( 025 3:09 PM EST) Osiel Vargas PharmD Note: Difficulty with taking medications daily due to no desire documented as of this encounter Visit Diagnoses Not on filedocumented in this encounter Care Teams Podiatric Aide Relationship Specialty Start Date End Date Vince [place] [address] PCP - General Internal Medicine 04/10/14 Osiel Mendez PharmD [facility] [place] [address] Pharmacist Internal Medicine 12/19/22 06/11/23 [facility] 12/29/23 documented as of this encounter
--- OUTSIDE RECORDS SUMMARY | 2024-09-06 15:00 | XMS_ITS | Encounter Summary ---
Author Organization [employer] Address 75 [facility] 7t [place] [address] Care Team Providers Care Head Refrigeration Engineer Name Role Phone Vince Lockhart MD Primary Care Provide r Reason for Visit * Reason Comments Med Refill Encounter Details Date Type Department Care Team (Late st Contact Info) Description 08/31/2024 Refill [facility] MEDICINE 230 [place], [place] [phone] Vince Lockhart MD 230 [place], [place] [phone] Depressive disorder; Bipolar affective disorder, currently depressed, moderate (CMS/HCC) Social History Tobacco Use Types Packs/Day [...] Description 09/11/2024 9:00 AM EST Office Visit [facility] MEDICINE [address] [place] [address] Alexander Jones MD [address] [place] [address] 09/18/2024 9:00 AM EST Office Visit [address] [address] Alexander Jones MD [address] [place] [address] 10/29/2024 11:30 AM EDT Office Visit [address] [address] Vince Lockhart MD [address] [place] [address] documented as of this encounter Goals Goal Patient Goal Type Associated Problems Recent Progress Patient-Stated? Author Patient will adhere to medication regimen General On track( 025 3:09 PM EST) Osiel Vargas, MayteD Note: Difficulty with taking medications daily due to no desire documented as of this encounter Visit Diagnoses Diagnosis Depressive disorder Depressive disorder, not elsewhere classified Bipolar affective disorder, currently depressed, moderate ([facility]) Bipolar I disorder, most recent episode (or current) depressed, moderate documented in this encounter Additional Health Concerns Assessment Noted Time PHQ-9 Depression Total Score: 4 07/02/20 24 10:58 AM EST documented as of this encounter Care Teams Head Refrigeration Engineer Relationship Specialty Start Date End Date Vince Lockhart MD [address] [place] [address] PCP - General Internal Medicine 04/10/14 [facility] 12/29/23 documented as of this encounter
--- OUTSIDE RECORDS SUMMARY | 2024-09-06 15:00 | XMS_ITS | Encounter Summary ---
Author Organization [employer] Address 75 [facility] 7t [place] [address] Care Team Providers Care College Admissions Counselor Name Role Phone Vince Lockhart MD Primary Care Provide r Osiel Mendez PharmD Unavailable [phone] Reason for Visit * Reason Onset Date Comments REQUEST FOR FUND DEVELOPMENT MANAGER REFERRAL 07/26/2022 I hernandez d regarding the pt's request for a referral for FUND DEVELOPMENT MANAGER services. He needs to state what ADL's he needs assistance with. There was no answer, and I reached a recording stating that the person's mailbox is full. I was unable to leave a msg. Encounter Details Date Type Department Care Team ([facility] Contact Info) Description 07/26/2022 Telephone [facility] MEDICINE 230 [place] [address] Vince Lockhart MD 230 [place] [address] REQUEST FOR FUND DEVELOPMENT MANAGER REFERRAL (I called regarding the pt's request for a referral for FUND DEVELOPMENT MANAGER services. He needs to state what ADL's [...] Description 09/11/2024 9:00 AM EST Office Visit [address] [address] Alexander Jones MD [address] [place] [address] 09/18/2024 9:00 AM EST Office Visit [address] [address] Alexander Jones MD [address] [place] [address] 10/29/2024 11:30 AM EDT Office Visit [address] [address] Vince Lockhart MD [address] [place] [address] documented as of this encounter Visit Diagnoses Not on filedocumented in this encounter Care Teams College Admissions Counselor Relationship Specialty Start Date End Date Vince Lockhart MD [address] [place] [address] PCP - General Internal Medicine 04/10/14 Osiel Mendez PharmD [address] [place] [address] Pharmacist Internal Medicine 12/19/22 06/11/23 [facility] 12/29/23 documented as of this encounter
--- OUTSIDE RECORDS SUMMARY | 2024-09-06 15:00 | XMS_ITS | Encounter Summary ---
Author Organization [employer] Address 75 [facility] 7t [place] [address] Care Team Providers Care Technical Solutions Consultant Name Role Phone Vince Lockhart MD Primary Care Provide r Osiel Mendez PharmD Unavailable [phone] Reason for Visit * Reason Comments Med Refill Encounter Details Date Type Department Care Team (Late Contact Info) Description 03/03/2023 Refill [facility] MEDICINE 230 [place] [address] Vince Lockhart MD 230 [place], [place] [phone] Depressive disorder; Difficulty sleeping Social History Tobacco [...] Description 09/11/2024 9:00 AM EST Office Visit [facility] [place] [address] [place] [address] 09/18/2024 9:00 AM EST Office Visit [facility] [place] [address] Alexander Jones MD [place] [phone] 10/29/2024 11:30 AM EDT Office Visit [facility] [place] [phone] [place] [address] documented as of this encounter Goals Goal [...] documented as of this encounter Care Teams Technical Solutions Consultant Relationship Specialty Start Date End Date [place] [address] PCP - General Internal Medicine 04/10/14 [place] [address] Pharmacist Internal Medicine 12/19/22 06/11/23 [facility] 12/29/23 documented as of this encounter
--- OUTSIDE RECORDS SUMMARY | 2024-09-06 15:00 | XMS_ITS | Encounter Summary ---
Author Organization [employer] Address 75 [facility] 7t [place] [address] Care Team Providers Care Mechanical Engineering Director Name Role Phone Vince Lockhart MD Primary Care Provide r Osiel Mendez PharmD Unavailable [phone] Reason for Visit * Reason Comments Med Refill Encounter Details Date Type Department Care Team (Late Contact Info) Description 03/07/2023 Refill [facility] MEDICINE 230 [place] [address] Vince Lockhart MD 230 [place], [place] [phone] Difficulty sleeping Social History Tobacco Use Types [...] Description 09/11/2024 9:00 AM EST Office Visit [facility] [place] [address] [place] [address] 09/18/2024 9:00 AM EST Office Visit [facility] [place] [address] [place] [address] 10/29/2024 11:30 AM EDT Office Visit [facility] [place] [address] [place] [address] documented as of this encounter Goals Goal [...] documented as of this encounter Care Teams Mechanical Engineering Director Relationship Specialty Start Date End Date [place] [address] PCP - General Internal Medicine 04/10/14 [place] [address] Pharmacist Internal Medicine 12/19/22 06/11/23 [facility] 12/29/23 documented as of this encounter
--- OUTSIDE RECORDS SUMMARY | 2024-09-06 15:00 | XMS_ITS | Encounter Summary ---
Author Organization [employer] Address 75 [facility] 7t [place] [address] Care Team Providers Care Cardiology Technician Name Role Phone Vince Lockhart MD Primary Care Provide r Osiel Mendez PharmD Unavailable [phone] Reason for Visit * Reason Onset Date Comments triage 10/03/2022 Encounter Details Date Type Department Care Team ([facility] st Contact Info) Description 10/03/2022 Telephone [facility] MEDICINE 230 [place], [place] [phone] Vince Lockhart MD 230 [place], [place] [phone] triage Social History Tobacco Use Types Packs/Day [...] requires assisted transportation. Is unable to access [facility] as he has no car and [...] now The caller accepted this outcome speaks hebrew. documented in this encounter Plan of Treatment Upcoming Encounters Date Type Department Care Team (Late st Contact Info) Description 09/11/2024 9:00 AM EST Office Visit [facility] MEDICINE [address] [place] [address] Alexander Jones MD 230 [place] [address] 09/18/2024 9:00 AM EST Office Visit [facility] MEDICINE [address] [place] [address] Alexander Jones MD [address] [place] [address] 10/29/2024 11:30 AM EDT Office Visit [facility] MEDICINE 230 [place], [place] [phone] Vince Lockhart MD 230 [place], [place] [phone] documented as of this encounter Visit Diagnoses Not on filedocumented in this encounter Care Teams Cardiology Technician Relationship Specialty Start Date End Date Vince Lockhart MD [address] [place] [address] [phone] PCP - General Internal Medicine 04/10/14 Osiel Mendez, MayteD [address] [place] [address] [phone] Pharmacist Internal Medicine 12/19/22 06/11/23 [facility] 12/29/23 documented as of this encounter
--- OUTSIDE RECORDS SUMMARY | 2024-09-06 15:00 | XMS_ITS | Encounter Summary ---
Author Organization [employer] Address [address] [facility] [address] 7t [place] [address] Care Team Providers Care Medical Pathology Teacher Name Role Phone Vince Lockhart MD Primary Care Provide r Reason for Visit * Reason Onset Date Comments Care Management 07/12/2023 [facility]- initial as sessment/enrollment Encounter Details Date Type Department Care Team (Late st Contact Info) Description 07/12/2023 Telephone [facility] MEDICINE 230 [place] [address] Atilio Franz RN [address] [place] [address] Care Management ([facility]- initial assessment/enrollment) Social History [...] reports currently living in an apartment in [place]. Per pt, lives alone and states he [...] of dizziness. Patient would like to receive UNIT ASSISTANT services for these reasons. Patient reports attending [...] wnl. Per patient, received the nebulizer from [facility]. He states he has not received a script for ensure. Patient reports losing his dentures during last inpatient stay at [facility]. Per patient, not having his dentures makes it very difficultand painful for him to eat which has affected his weight. Patient denies having any upcoming appointments to specialty offices. Care management program explained and contact information given. Patient verbalizes understanding, and able to repeat back to television script writer. A follow up call will be [...] Description 09/11/2024 9:00 AM EST Office Visit [facility] MEDICINE [address] [place] [address] Alexander Jones MD [address] [place] [address] 09/18/2024 9:00 AM EST Office Visit [address] [address] Alexander Jones MD [address] [place] [address] 10/29/2024 11:30 AM EDT Office Visit [address] [address] Vince Lockhart MD [address] [place] [address] documented as of this encounter Goals Goal [...] documented as of this encounter Care Teams Medical Pathology Teacher Relationship Specialty Start Date End Date Vince Lockhart MD 230 [place] [address] PCP - General Internal Medicine 04/10/14 [facility] 12/29/23 documented as of this encounter
--- OUTSIDE RECORDS SUMMARY | 2024-09-06 15:00 | XMS_ITS | Encounter Summary ---
Author Organization [employer] Address 75 [facility] 7t [place] [address] Care Team Providers Care Auto Body Repair Teacher Name Role Phone Vince Lockhart MD Primary Care Provide r Osiel Mendez PharmD Unavailable [phone] Reason for Visit * Reason Comments Med Refill Encounter Details Date Type Department Care Team ([facility] Contact Info) Description 10/11/2022 Refill [facility] MEDICINE 230 [place] [address] Vince Lockhart MD 230 [place], [place] [phone] Depressive disorder Social History Tobacco Use Types [...] Upcoming Encounters Date Type Department Care Team ([facility] Contact Info) Description 09/11/2024 9:00 AM EST Office Visit [facility] MEDICINE 230 [place] [address] [place] [address] 09/18/2024 9:00 AM EST Office Visit [facility] [place] [address] Alexander Jones MD [facility] [place] [phone] 10/29/2024 11:30 AM EDT Office Visit [facility] [place] [phone] Vince Lockhart MD [place] [phone] documented as of this encounter Visit Diagnoses Diagnosis Depressive disorder Depressive disorder, not elsewhere classified documented in this encounter Care Teams Auto Body Repair Teacher Relationship Specialty Start Date End Date [place] [address] PCP - General Internal Medicine 04/10/14 Osiel Mendez PharmD [facility] [place] [address] Pharmacist Internal Medicine 12/19/22 06/11/23 [facility] 12/29/23 documented as of this encounter
--- OUTSIDE RECORDS SUMMARY | 2024-09-06 15:00 | XMS_ITS | Encounter Summary ---
Author Organization [employer] Address 75 [facility] 7t [place] [address] Care Team Providers Care Application Design Engineer Name Role Phone Vince Lockhart MD Primary Care Provide r Reason for Visit * Reason Onset Date Comments Med Refill 09/04/2024 Encounter Details Date Type Department Care Team ([facility] st Contact Info) Description 09/04/2024 Telephone [facility] 230 [place], [place] [phone] Vince Lockhart MD [address] [place], [place] [phone] Med Refill Social History Tobacco Use Types [...] Telephone Encounter - Michelle Shin RN - 09/05/2024 10:37 AM EST Telephone call placed to [facility]monology. They stated are unsure if pt should beon these inhalers but that Dr Gerber was Rxing them most recently 12/2023. Will send message to Dr Gerber to review and send refills if appropriate. If discontinued, they will notify the pt. Good morning be Martinez is requesting a couple of inhalers, Symbicort and Spiriva. Pt is under the care of pharmacy specialist Dr. Gerber. Last note 08/10/[address] Gerber does not comment on patient being on any of those inhalers. Can you please contact Dr. Gerber's office and find out where the disconnect is. And then communicate that to his [facility]. * Telephone Encounter - Virginie Jain - 09/04/2024 11:04 AM EST TC from visiting nurse requesting medication refill. Medications needing refill : Symbicort 160-4.5 MCG/ACT inhaler Spiriva Respimat 2.5 MCG/ACT inhaler To be sent to: [facility] [place], [place] - [address] [facility] documented in this encounter Plan of Treatment Upcoming Encounters Date Type Department Care Team (Late st Contact Info) Description 09/11/2024 9:00 AM EST Office Visit [facility] [address] [place] [address] Alexander Jones MD [address] [place] [address] 09/18/2024 9:00 AM EST Office Visit [address] [address] Alexander Jones MD [address] [place] [address] 10/29/2024 11:30 AM EDT Office Visit [address] [address] Vince Lockhart MD [address] [place] [address] documented as of this encounter Goals Goal Patient Goal Type Associated Problems Recent Progress Patient-Stated? Author Patient will adhere to medication regimen General On track( 025 3:09 PM EST) Osiel Vargas, PharmD Note: Difficulty with taking medications daily due to no desire Increase coping skills to promote long-term recovery and improve ability to perform daily activities General No Georgina Ann, RN documented as of this encounter Visit Diagnoses Not on filedocumented in this encounter Additional Health Concerns Assessment Noted Time PHQ-9 Depression Total Score: 4 07/02/20 24 10:58 AM EST documented as of this encounter Care Teams Application Design Engineer Relationship Specialty Start Date End Date Vince Lockhart MD [address] [place] [address] PCP - General Internal Medicine 04/10/14 [facility] 12/29/23 documented as of this encounter
--- OUTSIDE RECORDS SUMMARY | 2024-09-06 15:00 | XMS_ITS | Encounter Summary ---
Author Organization [employer] Address [address] [facility] [address] 7t [place] [address] Care Team Providers Care Institutional Nutrition Consultant Name Role Phone Vince Lockhart MD Primary Care Provide r Encounter Details Date Type Department Care Team (Latest Contact Info) Description 09/04/2024 Travel Social History Tobacco Use Types Packs/Day [...] Description 09/11/2024 9:00 AM EST Office Visit [address] [address] Alexander Jones MD [address] [place] [address] 09/18/2024 9:00 AM EST Office Visit [address] [address] Alexander Jones MD [address] [place] [address] 10/29/2024 11:30 AM EDT Office Visit [address] [address] Vince Lockhart MD [address] [place] [address] documented as of this encounter Goals Goal [...] documented as of this encounter Care Teams Institutional Nutrition Consultant Relationship Specialty Start Date End Date Vince Lockhart MD 230 [place] [address] PCP - General Internal Medicine 04/10/14 [facility] 12/29/23 documented as of this encounter
--- OUTSIDE RECORDS SUMMARY | 2024-09-06 15:00 | XMS_ITS | Encounter Summary ---
Author Organization [employer] Address 75 [facility] 7t [place] [address] Care Team Providers Care Dowel Sander Operator Name Role Phone Vince Lockhart MD Primary Care Provide r Reason for Visit * Reason Onset Date Comments PT1 04/10/2024 Encounter Details Date Type Department Care Team ([facility] st Contact Info) Description 04/10/2024 Telephone [facility] MEDICINE 230 [place], [place] [phone] Vince Lockhart MD 230 [place], [place] [phone] PT1 Social History Tobacco Use Types Packs/Day [...] 3:59 PM EDT Tc from Sheila with [facility] requesting PT1 Patient calling requesting PT1 Home Address verified: Y/N: Yes Provider name or facility name: [facility] Facility Address: [address] [place] [address] Escort needed: Y/N: No Do you have a wheelchair: Y/N: No If yes- Manual or electric: n/a Visits: 3 x month documented in this encounter Plan of Treatment Upcoming Encounters Date Type Department Care Team (Late st Contact Info) Description 09/11/2024 9:00 AM EST Office Visit [facility] MEDICINE [address] [place] [address] Alexander Jones MD [address] [place] [address] 09/18/2024 9:00 AM EST Office Visit [facility] MEDICINE [address] [place] [address] Alexander Jones MD [address] [place] [address] 10/29/2024 11:30 AM EDT Office Visit [facility] MEDICINE 230 [facility] [place] [address] Vince Lockhart MD [place] [facility] [place] [address] documented as of this encounter Goals Goal [...] documented as of this encounter Care Teams Dowel Sander Operator Relationship Specialty Start Date End Date Vince Lockhart MD [place] [facility] [place] [address] PCP - General Internal Medicine 04/10/14 [facility] 12/29/23 documented as of this encounter
--- OUTSIDE RECORDS SUMMARY | 2024-09-06 15:00 | XMS_ITS | Encounter Summary ---
Author Organization [employer] Address 75 [facility] 7t [place] [address] Care Team Providers Care Gas Collection System Operator Name Role Phone Vince Lockhart MD Primary Care Provide r Osiel Mendez PharmD Unavailable [phone] Reason for Visit * Reason Comments Med Refill Encounter Details Date Type Department Care Team (Late st Contact Info) Description 03/14/2023 Refill [facility] MEDICINE 230 [place] [address] Vince Lockhart MD 230 [place], [place] [phone] Pulmonary emphysema, unspecified emphysema type (CMS/HCC) Social [...] Description 09/11/2024 9:00 AM EST Office Visit [facility] [address] Alexander Jones MD [facility] [place] [address] 09/18/2024 9:00 AM EST Office [address] [place] [address] Alexander Jones MD [facility] [address] 10/29/2024 11:30 AM EDT Office Visit [facility] [place] [address] Vince Lockhart MD [facility] [address] documented as of this encounter Goals Goal [...] documented as of this encounter Care Teams Gas Collection System Operator Relationship Specialty Start Date End Date Vince Lockhart MD [facility] [address] PCP - General Internal Medicine 04/10/14 Osiel Mendez, MayteD [facility] [place] [address] Pharmacist Internal Medicine 12/19/22 06/11/23 [facility] 12/29/23 documented as of this encounter
--- OUTSIDE RECORDS SUMMARY | 2024-09-06 15:00 | XMS_ITS | Encounter Summary ---
Author Organization [employer] Address 75 [facility] 7t [place] [address] Care Team Providers Care Molder Setter Name Role Phone Vince Lockhart MD Primary Care Provide r Reason for Visit * Reason Onset Date Comments PT-1 08/28/2024 Encounter Details Date Type Department Care Team ([facility] st Contact Info) Description 08/28/2024 Telephone [facility] MEDICINE 230 [place], [place] [phone] Vince Lockhart MD 230 [place], [place] [phone] PT-1 Social History Tobacco Use Types Packs/Day [...] * Telephone Encounter - Som Alford - 08/28/2024 8:38 AM EST Patient calling requesting PT1 Home Address verified: Y/N: Yes Provider name or facility name: [facility] Facility Address: [address] [place] [address] Escort needed: Y/N: No Do you have a wheelchair: Y/N: No If yes- Manual or electric: N/A Visits: Once a week documented in this encounter Plan of Treatment Upcoming Encounters Date Type Department Care Team (Late st Contact Info) Description 09/11/2024 9:00 AM EST Office Visit [facility] MEDICINE [address] [place] [address] Alexander Jones MD [address] [place] [address] 09/18/2024 9:00 AM EST Office Visit [facility] MED[facility]INE [address] [place] [address] [place] [address] 10/29/2024 11:30 AM EDT Office Visit [facility] [place] [phone] [place] [address] documented as of this encounter Goals Goal [...] documented as of this encounter Care Teams Molder Setter Relationship Specialty Start Date End Date [place] [address] PCP - General Internal Medicine 04/10/14 [facility] 12/29/23 documented as of this encounter
--- OUTSIDE RECORDS SUMMARY | 2024-09-06 15:00 | XMS_ITS | Encounter Summary ---
Author Organization [employer] Address 75 [facility] 7t [place] [address] Care Team Providers Care Bottling Supervisor Name Role Phone Vince Lockhart MD Primary Care Provide r Reason for Visit * Reason Comments GBOT F/U Encounter Details Date Type Department Care Team (Latest Contact Info) Description 09/04/2024 9:00 AM EST Clinical Support [facility] MEDICINE 230 [place] [address] Georgina Ann, GUERO Opioid type dependence, continuous (CMS/HCC) (Primary Dx) [...] housing situation today? I have [place] [facility] 09/25/[address] you [...] Progress Notes * Georgina Ann RN - 09/04/2024 9:00 AM EST Patient with heroin and cocaine use disorder Inconsistent follow-ups for his OBAT MAT, complicated by his medical issues Immune to Hep A/B History of Hepatitic C s/p treatment in 2017 (HCV RNA VL undetectable in 08/2023) Declined PrEP Incarceration history x2; lifetime arrests x6 ; 3 adult children (1 killed; 1 in [place] in [place]) Last LFT (04/03/2024) LAST GBAT VISIT 08/28/2024 UTOX: POS PERCY, BUP, TCA,THC NEG FOR FENT Patient presents for Group-Based Opioid Treatment for OUD Reviewed the group goals, expectations and policies Consented to the group treatment options Actively participated in the group discussion with the topic of: Changing Negative Perspectives ofDetoxification Patient has medications in a locked box and has VNA dispensing medications at home Patient requested to increase the dose of Suboxone Previously diagnosed with PE Following staff present at the visit: Team RN, MAT Physician, Fabrication Lead, Clinician, and Undercollar Maker Opportunities provided to address individual medical/medication/ concern THIS GBOT VISIT: 09/04/2024 UTOX: BUP Patient presents for Group-Based Opioid Treatment for OUD Reviewed the group goals, expectations and policies Consented to the group treatment options [facility] Actively participated in the group discussion, a continuation of last week, with the topic of: Changing Negative Perspectives of Detoxification Patient has medications in a locked box and has VNA dispensing medications at home Patient requested to increase the dose of Suboxone Previously diagnosed with PE Following staff present at the visit: Team RN, Fabrication Lead, Clinician, Clinician Automatic Stacker and Undercollar Maker Opportunities provided to address individual medical/medication/ concern Follow up in 1 week This information has been disclosed to you [...] Description 09/11/2024 9:00 AM EST Office Visit [address] [address] Alexander Jones MD [address] [place] [address] 09/18/2024 9:00 AM EST Office Visit [address] [address] Alexander Jones MD [address] [place] [address] 10/29/2024 11:30 AM EDT Office Visit [address] [address] Vince Lockhart MD 230 [place] [address] documented as of this encounter Goals Goal Patient Goal Type Associated Problems Recent Progress Patient-Stated? Author Patient will adhere to medication regimen General On track( 025 3:09 PM EST) Osiel Vargas, MayteD Note: Difficulty with taking medications daily due to no desire Increase coping skills to promote long-term recovery and improve ability to perform daily activities General No Georgina Ann, GUERO documented as of this encounter Procedures Procedure Name Priority Date/Time Associated Diagnosis Comments POCT MARIA ANTONIA-14 URINE DRUG SCREEN Routine 09/04/2024 8:54 AM EST Opioid type dependence, continuous (CMS/HCC) documented in this encounter Results * POCT MARIA ANTONIA-14 Urine Drug Screen (09/04/2024 8:54 AM EST) THC Negative Cocaine Screen, Urine [...] obtained by clean catch procedure / Unknown 09/04/2024 8:54 AM EST Yajaira Birmingham MD POINT OF CARE TEST ENTER/EDIT OR DERABLES Final Result documented in this encounter Visit Diagnoses Diagnosis Opioid type dependence, continuous (CMS/HCC)- Primary Opioid type dependence, continuous documented in this encounter Additional Health Concerns Assessment Noted Time PHQ-9 Depression Total Score: 4 07/02/20 24 10:58 AM EST documented as of this encounter Care Teams Bottling Supervisor Relationship Specialty Start Date End Date Vince Lockhart MD 230 [place] [address] PCP - General Internal Medicine 9/25/14 [facility] 12/29/23 documented as of this encounter
--- OUTSIDE RECORDS SUMMARY | 2024-09-06 15:00 | XMS_ITS | Encounter Summary ---
Author Organization [employer] Address 75 [facility] 7t [place] [address] Care Team Providers Care Fish Checker Name Role Phone Vince Lockhart MD Primary Care Provide r Osiel Mendez PharmD Unavailable [phone] Encounter Details Date Type Department Care Team (Late st Contact Info) Description 09/26/2022 Telephone [facility] MEDICINE [address] [place] [address] Vince Lockhart MD [address] [place] [address] [phone] Social History Tobacco Use Types Packs/Day Years [...] Description 09/11/2024 9:00 AM EST Office Visit [address] [phone] Alexander Jones MD [address] [place] [address] 09/18/2024 9:00 AM EST Office Visit [address] [address] Alexander Jones MD [address] [place] [phone] 10/29/2024 11:30 AM EDT Office Visit [facility] [address] [place] [address] Vince Lockhart MD 230 [facility] [place] [address] documented as of this encounter Visit Diagnoses Not on filedocumented in this encounter Care Teams Fish Checker Relationship Specialty Start Date End Date Vince Lockhart MD [place] [phone] PCP - General Internal Medicine 04/10/14 Osiel Mendez, MayteD [facility] [place] [address] Pharmacist Internal Medicine 12/19/22 06/11/23 [facility] 12/29/23 documented as of this encounter
--- OUTSIDE RECORDS SUMMARY | 2024-09-06 15:00 | XMS_ITS | Encounter Summary ---
Author Organization [employer] Address 75 [facility] 7t [place] [address] Care Team Providers Care Goat Farmer Name Role Phone Vince Lockhart MD Primary Care Provide r Reason for Visit * Reason Onset Date Comments Error 10/20/2023 Encounter Details Date Type Department Care Team ([facility] st Contact Info) Description 10/20/2023 Telephone [facility] MEDICINE 230 [place], [place] [phone] Vince Lockhart MD 230 [place] [address] Error Social History Tobacco Use Types Packs/Day [...] Description 09/11/2024 9:00 AM EST Office Visit [address] [address] Alexander Jones MD [address] [place] [address] 09/18/2024 9:00 AM EST Office Visit [address] [address] Alexander Jones MD [address] [place] [address] 10/29/2024 11:30 AM EDT Office Visit [address] [address] Vince Lockhart MD [address] [place] [address] documented as of this encounter Goals Goal [...] documented as of this encounter Care Teams Goat Farmer Relationship Specialty Start Date End Date Vince Lockhart MD [address] [place] [address] PCP - General Internal Medicine 04/10/14 [facility] 12/29/23 documented as of this encounter
--- OUTSIDE RECORDS SUMMARY | 2024-09-06 15:00 | XMS_ITS | Encounter Summary ---
Author Organization [employer] Address 75 [facility] 7t [place] [address] Care Team Providers Care Dry Box Operator Name Role Phone Vince Lockhart MD Primary Care Provide r Osiel Mendez PharmD Unavailable [phone] Reason for Visit * Reason Onset Date Comments Appointment Request 10/12/2022 Encounter Details Date Type Department Care Team ([facility] st Contact Info) Description 10/12/2022 Telephone [facility] MEDICINE 230 [place], [place] [phone] Vince Lockhart MD 230 [place], [place] [phone] Appointment Request Social History Tobacco Use Types [...] appt scheduled for 09/13/[address] Hdz, Cash Applications Associate unsure whoto book appt per PCP scheduled for October, Please contact at [phone] Lao documented in this encounter Plan of Treatment Upcoming Encounters Date Type Department Care Team (Late st Contact Info) Description 09/11/2024 9:00 AM EST Office Visit [facility] MEDICINE [address] [place] [address] Alexander Jones MD [address] [place] [address] 09/18/2024 9:00 AM EST Office Visit [facility] MEDICINE [address] [place] [address] Alexander Jones MD 230 [place], [place] [phone] 10/29/2024 11:30 AM EDT Office Visit [facility] MEDICINE 230 [place], [place] [phone] Vince Lockhart MD [address] [place] [address] [phone] documented as of this encounter Goals Goal Patient Goal Type Associated Problems Recent Progress Patient-Stated? Author Patient will adhere to medication regimen General On track( 025 3:09 PM EST) Osiel Vargas, Castro Note: Difficulty with taking medications daily due to no desire documented as of this encounter Visit Diagnoses Not on filedocumented in this encounter Care Teams Dry Box Operator Relationship Specialty Start Date End Date Vince Lockhart MD [address] [place] [address] [phone] PCP - General Internal Medicine 04/10/14 Osiel Mendez, Castro [address] [place] [address] Pharmacist Internal Medicine 12/19/22 06/11/23 [facility] 12/29/23 documented as of this encounter
--- OUTSIDE RECORDS SUMMARY | 2024-09-06 15:00 | XMS_ITS | Encounter Summary ---
Author Organization [employer] Address 75 [facility] 7t [place] [address] Care Team Providers Care Rope Maker Name Role Phone Vince Lockhart MD Primary Care Provide r Osiel Mendez PharmD Unavailable [phone] Reason for Visit * Reason Comments Med Refill Encounter Details Date Type Department Care Team ([facility] Contact Info) Description 10/05/2022 Refill [facility] MEDICINE 230 [place] [address] Vince Lockhart MD 230 [place], [place] [phone] Depressive disorder Social History Tobacco Use Types [...] Upcoming Encounters Date Type Department Care Team ([facility] Contact Info) Description 09/11/2024 9:00 AM EST Office Visit [facility] MEDICINE 230 [place] [address] [place] [address] 09/18/2024 9:00 AM EST Office [place] [address] Alexander Jones MD [facility] [place] [phone] 10/29/2024 11:30 AM EDT Office Visit [facility] [place] [phone] Vince Lockhart MD [place] [phone] documented as of this encounter Visit Diagnoses Diagnosis Depressive disorder Depressive disorder, not elsewhere classified documented in this encounter Care Teams Rope Maker Relationship Specialty Start Date End Date [place] [address] PCP - General Internal Medicine 04/10/14 Osiel Mendez PharmD [facility] [place] [address] Pharmacist Internal Medicine 12/19/22 06/11/23 [facility] 12/29/23 documented as of this encounter
--- OUTSIDE RECORDS SUMMARY | 2024-09-06 15:00 | XMS_ITS | Encounter Summary ---
Author Organization [employer] Address 75 [facility] 7t [place] [address] Care Team Providers Care Operating Room Nurse Name Role Phone Vince Lockhart MD Primary Care Provide r Reason for Visit * Reason Comments Med Refill Encounter Details Date Type Department Care Team (Late st Contact Info) Description 04/10/2024 Refill [facility] MEDICINE 230 [place], [place] [phone] Felicia Hdz, ANP 230 [place] [address] Social History Tobacco Use Types Packs/Day Years [...] 09/11/2024 9:00 AM EST Office Visit [address] [address] Alexander Jones MD [address] [place] [address] 09/18/2024 9:00 AM EST Office Visit [address] [address] Alexander Jones MD [address] [place] [address] 10/29/2024 11:30 AM EDT Office Visit [address] [address] Vince Lockhart MD [address] [place] [address] documented as of this encounter Goals Goal [...] documented as of this encounter Care Teams Operating Room Nurse Relationship Specialty Start Date End Date Vince Lockhart MD 230 [place] [address] PCP - General Internal Medicine 04/10/14 [facility] 12/29/23 documented as of this encounter
--- OUTSIDE RECORDS SUMMARY | 2024-09-06 15:00 | XMS_ITS | Encounter Summary ---
Author Organization [employer] Address 75 [facility] 7t [place] [address] Care Team Providers Care Machine Fastener Name Role Phone Vince Lockhart MD Primary Care Provide r Osiel Mendez PharmD Unavailable [phone] Reason for Visit * Reason Onset Date Comments PT1 05/03/2023 Encounter Details Date Type Department Care Team ([facility] st Contact Info) Description 05/03/2023 Telephone [facility] MEDICINE [address] [place], [place] [phone] Vince Lockhart MD [address] [place], [place] [phone] PT1 Social History Tobacco Use Types Packs/Day [...] requesting a PT1 for Pt. Please contact lesage if PT1 has been approved or denied Date: 05/08 Time: 11:30 am Visits: n/a Address: [address] [place] [address] Facility: [facility] Wheel Chair: no Griddle Attendant Needed: no group teacher location confirmed: [address] [place] [address] documented in this encounter Plan of Treatment Upcoming Encounters Date Type Department Care Team (Late st Contact Info) Description 09/11/2024 9:00 AM EST Office Visit [facility] MEDICINE [address] [place] [address] Alexander Jones MD [address] [place] [address] 09/18/2024 9:00 AM EST Office Visit [facility] [place] [address] [place] [address] 10/29/2024 11:30 AM EDT Office Visit [facility] [place] [address] [place] [address] documented as of this encounter Goals Goal [...] documented as of this encounter Care Teams Machine Fastener Relationship Specialty Start Date End Date Vince [place] [address] PCP - General Internal Medicine 04/10/14 [place] [address] Pharmacist Internal Medicine 12/19/22 06/11/23 [facility] 12/29/23 documented as of this encounter
--- OUTSIDE RECORDS SUMMARY | 2024-09-06 15:00 | XMS_ITS | Encounter Summary ---
Author Organization [employer] Address 75 [facility] 7t [place] [address] Care Team Providers Care Neck Band Operator Name Role Phone Vince Lockhart MD Primary Care Provide r Reason for Visit * Reason Comments Med Refill Encounter Details Date Type Department Care Team ([facility] st Contact Info) Description 11/27/2023 Refill [facility] MEDICINE 230 [place], [place] [phone] Vince Lockhart MD 230 [place], [place] [phone] Social History Tobacco Use Types Packs/Day Years [...] 09/11/2024 9:00 AM EST Office Visit [facility] MEDICINE [address] [place] [address] Alexander Jones MD [address] [place] [address] 09/18/2024 9:00 AM EST Office Visit [address] [address] Alexander Jones MD [address] [place] [address] 10/29/2024 11:30 AM EDT Office Visit [address] [address] Vince Lockhart MD [address] [place] [address] documented as of this encounter Goals Goal [...] documented as of this encounter Care Teams Neck Band Operator Relationship Specialty Start Date End Date Vince Lockhart MD [address] [place] [address] PCP - General Internal Medicine 04/10/14 [facility] 12/29/23 documented as of this encounter
--- OUTSIDE RECORDS SUMMARY | 2024-09-06 15:00 | XMS_ITS | Encounter Summary ---
Author Organization [employer] Address 75 [facility] 7t [place] [address] Care Team Providers Care Olericulture Teacher Name Role Phone Vince Lockhart MD Primary Care Provide r Reason for Visit * Reason Onset Date Comments Med Refill 08/21/2024 Encounter Details Date Type Department Care Team (Late st Contact Info) Description 08/21/2024 Refill [facility] MEDICINE [address] [place] [address] Georgina Ann, GUERO Uncomplicated opioid dependence (CMS/HCC); Substance-related disorder (CMS/HCC) Social History Tobacco Use Types Packs/Day [...] 09/11/2024 9:00 AM EST Office Visit [address] [address] Alexander Jones MD [address] [place] [address] 09/18/2024 9:00 AM EST Office Visit [address] [address] Alexander Jones MD [address] [place] [address] 10/29/2024 11:30 AM EDT Office Visit [address] [address] Vince Lockhart MD [address] [place] [address] documented as of this encounter Goals Goal Patient Goal Type Associated Problems Recent Progress Patient-Stated? Author Patient will adhere to medication regimen General On track( 025 3:09 PM EST) Osiel Vargas MayteD Note: Difficulty with taking medications daily due to no desire documented as of this encounter Visit Diagnoses Diagnosis Uncomplicated opioid dependence (CMS/HCC) Substance-related disorder (CMS/HCC) documented in this encounter Additional Health Concerns Assessment Noted Time PHQ-9 Depression Total Score: 4 07/02/20 24 10:58 AM EST documented as of this encounter Care Teams Olericulture Teacher Relationship Specialty Start Date End Date Vince Lockhart MD [address] [place] [address] PCP - General Internal Medicine 04/10/14 [facility] 12/29/23 documented as of this encounter
--- OUTSIDE RECORDS SUMMARY | 2024-09-06 15:00 | XMS_ITS | Encounter Summary ---
Author Organization [employer] Address 75 [facility] 7t [place] [address] Care Team Providers Care Brick And Block Mason Name Role Phone Vince Lockhart MD Primary Care Provide r Reason for Visit * Reason Onset Date Comments Created in Error 04/09/2024 Encounter Details Date Type Department Care Team ([facility] st Contact Info) Description 04/09/2024 Telephone [facility] MEDICINE 230 [place], [place] [phone] Vince Lockhart MD 230 [place], [place] [phone] Created in Error Social History Tobacco Use [...] Description 09/11/2024 9:00 AM EST Office Visit [address] [address] Alexander Jones MD [address] [place] [address] 09/18/2024 9:00 AM EST Office Visit [address] [address] Alexander Jones MD [address] [place] [address] 10/29/2024 11:30 AM EDT Office Visit [address] [address] Vince Lockhart MD [address] [place] [address] documented as of this encounter Goals Goal [...] as of this encounter Care Teams Brick And Block Mason Relationship Specialty Start Date End Date Vince Lockhart MD 230 [place] [address] PCP - General Internal Medicine 04/10/14 [facility] 12/29/23 documented as of this encounter
--- OUTSIDE RECORDS SUMMARY | 2024-09-06 15:00 | XMS_ITS | Encounter Summary ---
Author Organization [employer] Address [address] [facility] [address] 7t [place] [address] Care Team Providers Care Professor Of Criminal Justice Name Role Phone Vince Lockhart MD Primary Care Provide r Encounter Details Date Type Department Care Team (Latest Contact Info) Description 08/28/2024 Travel Social History Tobacco Use Types Packs/Day [...] Description 09/11/2024 9:00 AM EST Office Visit [address] [address] Alexander Jones MD [address] [place] [address] 09/18/2024 9:00 AM EST Office Visit [address] [address] Alexander Jones MD [address] [place] [address] 10/29/2024 11:30 AM EDT Office Visit [address] [address] Vince Lockhart MD [address] [place] [address] documented as of this encounter Goals Goal [...] documented as of this encounter Care Teams Professor Of Criminal Justice Relationship Specialty Start Date End Date Vince Lockhart MD [address] [place] [address] PCP - General Internal Medicine 04/10/14 [facility] 12/29/23 documented as of this encounter
--- OUTSIDE RECORDS SUMMARY | 2024-09-06 15:00 | XMS_ITS | Encounter Summary ---
Author Organization [employer] Address 75 [facility] 7t [place] [address] Care Team Providers Care Educational Aide Name Role Phone Vince Lockhart MD Primary Care Provide r Osiel Mendez PharmD Unavailable [phone] Reason for Visit * Reason Comments Med Refill Encounter Details Date Type Department Care Team (Late st Contact Info) Description 09/09/2022 Telephone [facility] MEDICINE 230 [place], [place] [phone] Vince Lockhart MD 230 [place], [place] [phone] Med Refill Social History Tobacco Use Types [...] PM EST ----- Pt entered care at [facility] 09/15. Out now but not sure of discharge date. Pharmacy called to tell us that the facility made some med changes. Pt continues to no show and cancel appointments. Tryto get paperwork and reach out to pt documented in this encounter Plan of Treatment Upcoming Encounters Date Type Department Care Team (Late st Contact Info) Description 09/11/2024 9:00 AM EST Office Visit [facility] MEDICINE [address] [place] [address] Alexander Jones MD [address] [place] [address] 09/18/2024 9:00 AM EST Office Visit [address] [address] Alexander Jones MD [address] [place] [address] 10/29/2024 11:30 AM EDT Office Visit [address] [address] Vince Lockhart MD [address] [place] [address] documented as of this encounter Visit Diagnoses Diagnosis Depressive disorder Depressive disorder, not elsewhere classified Difficulty sleeping Unspecified sleep disturbance documented in this encounter Care Teams Educational Aide Relationship Specialty Start Date End Date Vnice Lockhart MD [address] [place] [address] PCP - General Internal Medicine 04/10/14 Osiel Mendez, PharmD [address] [place] [address] Pharmacist Internal Medicine 12/19/22 06/11/23 [facility] 12/29/23 documented as of this encounter
--- OUTSIDE RECORDS SUMMARY | 2024-09-06 15:00 | XMS_ITS | Encounter Summary ---
Author Organization [employer] Address 75 [facility] 7t [place] [address] Care Team Providers Care Sales Planning Manager Name Role Phone Vince Lockhart MD Primary Care Provide r Osiel Mendez PharmD Unavailable [phone] Reason for Visit * Reason Onset Date Comments Medication Question 03/21/2023 Encounter Details Date Type Department Care Team ([facility] st Contact Info) Description 03/21/2023 Telephone [facility] MEDICINE 230 [place], [place] [phone] Vince Lockhart MD 230 [place], [place] [phone] Medication Question Social History Tobacco Use Types [...] PM EDT Telephone call placed to Adriana ([facility]). Explained that we are not prescribing controlled [...] 12:46 PM EDT Tc from Adriana at [facility] calling in regards to message above. States pt is planning on going to hospital due to lack of pain control. Please contact adriana at [phone] * Telephone Encounter - Chioma Frank - 03/21/2023 12:28 PM EDT Tc from Adriana at [facility] requesting a call back, in regards to medication tramadol 50 mg. documented in this encounter Plan of Treatment Upcoming Encounters Date Type Department Care Team (Late st Contact Info) Description 09/11/2024 9:00 AM EST Office Visit [facility] [address] [place] [address] Alexander Jones MD [address] [place] [address] 09/18/2024 9:00 AM EST Office Visit [facility] [place] [address] [place] [address] 10/29/2024 11:30 AM EDT Office Visit [facility] [place] [address] [place] [address] documented as of this encounter Goals Goal [...] as of this encounter Care Teams Sales Planning Manager Relationship Specialty Start Date End Date [place] [address] PCP - General Internal Medicine 04/10/14 [place] [address] Pharmacist Internal Medicine 12/19/22 06/11/23 [facility] 12/29/23 documented as of this encounter
--- OUTSIDE RECORDS SUMMARY | 2024-09-06 15:00 | XMS_ITS | Encounter Summary ---
Author Organization [employer] Address 75 [facility] 7t [place] [address] Care Team Providers Care Job Site Supervisor Name Role Phone Vince Lockhart MD Primary Care Provide r Reason for Visit * Reason Onset Date Comments Med Refill 09/06/2024 Encounter Details Date Type Department Care Team (Late st Contact Info) Description 09/06/2024 Refill [facility] MEDICINE 230 [place] [address] Georgina Ann, GUERO Uncomplicated opioid dependence (CMS/HCC) [...] Description 09/11/2024 9:00 AM EST Office Visit [address] [address] Alexander Jones MD [address] [place] [address] 09/18/2024 9:00 AM EST Office Visit [address] [address] Alexander Jones MD [address] [place] [address] 10/29/2024 11:30 AM EDT Office Visit [address] [address] Vince Lockhart MD [address] [place] [address] documented as of this encounter Goals Goal Patient Goal Type Associated Problems Recent Progress Patient-Stated? Author Patient will adhere to medication regimen General On track( 025 3:09 PM EST) Osiel Vargas, PharmD Note: Difficulty with taking medications daily due to no desire Increase coping skills to promote long-term recovery and improve ability to perform daily activities General Georgina Cameron RN documented as of this encounter Visit Diagnoses Diagnosis Uncomplicated opioid dependence (CMS/HCC) documented in this encounter Additional Health Concerns Assessment Noted Time PHQ-9 Depression Total Score: 4 07/02/20 24 10:58 AM EST documented as of this encounter Care Teams Job Site Supervisor Relationship Specialty Start Date End Date Vince Lockhart MD [address] [place] [address] PCP - General Internal Medicine 04/10/14 [facility] 12/29/23 documented as of this encounter
--- OUTSIDE RECORDS SUMMARY | 2024-09-06 15:00 | XMS_ITS | Encounter Summary ---
Author Organization [employer] Address 75 [facility] 7t [place] [address] Care Team Providers Care Sewer Separation Designer Name Role Phone Vince Lockhart MD Primary Care Provide r Osiel Mendez PharmD Unavailable [phone] Reason for Visit * Reason Onset Date Comments FYI 08/18/2022 Encounter Details Date Type Department Care Team ([facility] st Contact Info) Description 08/18/2022 Telephone [facility] MEDICINE 230 [place], [place] [phone] Vince Lockhart MD 230 [place], [place] [phone] FY Social History Tobacco Use Types Packs/Day [...] Forms Department, to discuss his request for WHITE WASHER services. * Telephone Encounter - Dick Villagran - 08/18/2022 10:32 AM EST Tc from [facility] would like to inform PCP that pt is being transferred to their services from [facility] system also stated will be faxing forms. Advisedwill leave message as a a FYI Please contact at [phone] documented in this encounter Plan of Treatment Upcoming Encounters Date Type Department Care Team (Late st Contact Info) Description 09/11/2024 9:00 AM EST Office Visit [facility] [place] [address] [place] [address] 09/18/2024 9:00 AM EST Office Visit [facility] [place] [address] [place] [address] 10/29/2024 11:30 AM EDT Office Visit [facility] [place] [address] [place] [address] documented as of this encounter Goals Goal Patient Goal Type Associated Problems Recent Progress Patient-Stated? Author Patient will adhere to medication regimen General On track( 025 3:09 PM EST) No Osiel Mendez PharmD Note: Difficulty with taking medications daily due to no desire documented as of this encounter Visit Diagnoses Not on filedocumented in this encounter Care Teams Sewer Separation Designer Relationship Specialty Start Date End Date Vince [place] [address] PCP - General Internal Medicine 04/10/14 Osiel Mendez PharmD [facility] [place] [place] [address] Pharmacist Internal Medicine 12/19/22 06/11/23 [facility] 12/29/23 documented as of this encounter
--- OUTSIDE RECORDS SUMMARY | 2024-09-06 15:00 | XMS_ITS | Encounter Summary ---
Author Organization [employer] Address 75 [facility] 7t [place] [address] Care Team Providers Care Patternmaker Plastics Name Role Phone Vince Lockhart MD Primary Care Provide r Osiel Mendez PharmD Unavailable Reason for Visit * Reason Onset Date Comments Nurse Triage 03/21/2023 Encounter Details Date Type Department Care Team (Late st Contact Info) Description 03/21/2023 Telephone [facility] MEDICINE 230 [place], [place] [phone] Vince Lockhart MD 230 [place], [place] [phone] Nurse Triage Social History Tobacco Use Types [...] 03/28/23. I do not see Ultram in [facility] med list but there is an older script in [facility] for Tramadol from 2013. I see pt. [...] - 03/21/2023 12:25 PM EDT Tc from [facility] Symptom: Back Pain - Not From Injury Outcome: Schedule an appointment to be seen within 3 days Reason: Caller denied all higher acuity questions The caller accepted this outcome Please call [phone] documented in this encounter Plan of Treatment Upcoming Encounters Date Type Department Care Team (Late st Contact Info) Description 09/11/2024 9:00 AM EST Office Visit [address] [address] Alexander Jones MD [address] [place] [address] 09/18/2024 9:00 AM EST Office Visit [address] [phone] Alexander Jones MD [address] [place] [address] 10/29/2024 11:30 AM EDT Office Visit [address] [address] Vince Lockhart MD [address] [place] [address] documented as of this encounter Goals Goal [...] documented as of this encounter Care Teams Patternmaker Plastics Relationship Specialty Start Date End Date Vince Lockhart MD [address] [place] [address] PCP - General Internal Medicine 04/10/14 Osiel Mendez PharmD [address] [place] [address] Pharmacist Internal Medicine 12/19/22 06/11/23 [facility] 12/29/23 documented as of this encounter
--- OUTSIDE RECORDS SUMMARY | 2024-09-06 15:00 | XMS_ITS | Encounter Summary ---
Author Organization [employer] Address 75 [facility] 7t [place] [address] Care Team Providers Care Fish Roe Processor Name Role Phone Vince Lockhart MD Primary Care Provide r Reason for Visit * Reason Onset Date Comments Med Refill 07/13/2023 Encounter Details Date Type Department Care Team ([facility] st Contact Info) Description 07/13/2023 Telephone [facility] MEDICINE 230 [place], [place] [phone] Vince Lockhart MD 230 [place], [place] [phone] Med Refill Social History Tobacco Use Types [...] Garvin LPN - 07/13/2023 12:46 PM EST LOADING UNIT OPERATOR checked Ambien last filled on 06/30/23 Qty: [...] Description 09/11/2024 9:00 AM EST Office Visit [facility] MEDICINE [address] [place] [address] Alexander Jones MD [address] [place] [address] 09/18/2024 9:00 AM EST Office Visit [facility] MEDICINE [address] [place] [address] [phone] Alexander Jones MD [facility] [place] [address] 10/29/2024 11:30 AM EDT Office Visit [facility] [place] [phone] Vince Lockhart MD [address] [place], [place] [phone] documented as of this encounter Goals Goal [...] documented as of this encounter Care Teams Fish Roe Processor Relationship Specialty Start Date End Date Vince Lockhart MD [facility] [place] [address] PCP - General Internal Medicine 04/10/14 [facility] 12/29/23 documented as of this encounter
--- OUTSIDE RECORDS SUMMARY | 2024-09-06 15:00 | XMS_ITS | Encounter Summary ---
Author Organization [employer] Address 75 [facility] 7t [place] [address] Care Team Providers Care Regulatory Process Manager Name Role Phone Vince Lockhart MD Primary Care Provide r Osiel Mendez PharmD Unavailable [phone] Reason for Visit * Reason Onset Date Comments FYI 04/25/2023 Encounter Details Date Type Department Care Team ([facility] st Contact Info) Description 04/25/2023 Telephone [facility] MEDICINE 230 [place], [place] [phone] Vince Lockhart MD 230 [place], [place] [phone] FYI Social History Tobacco Use Types Packs/Day [...] the past 12 months, has t he [employer], gas, oil or water company threatened to [...] - 04/25/2023 10:06 AM EDT Tc from [facility] manager relationship [facility] would like to inform PCP that pt no longer has a psych provider. Please contact at [phone] documented in this encounter Plan of Treatment Upcoming Encounters Date Type Department Care Team (Late st Contact Info) Description 09/11/2024 9:00 AM EST Office Visit [facility] MEDICINE [address] [place] [address] Alexander Jones MD [address] [place] [address] 09/18/2024 9:00 AM EST Office Visit [facility] MEDICINE [address] [place] [address] Alexander Jones MD [address] [place] [address] 10/29/2024 11:30 AM EDT Office Visit [facility] MEDICINE [address] [place] [address] Vince Lockhart MD [address] [place] [address] documented as of this encounter Goals Goal [...] documented as of this encounter Care Teams Regulatory Process Manager Relationship Specialty Start Date End Date Vince Lockhart MD [address] [place] [address] PCP - General Internal Medicine 04/10/14 Osiel Mendez, Castro [address] [place] [address] Pharmacist Internal Medicine 12/19/22 06/11/23 [facility] 12/29/23 documented as of this encounter
--- OUTSIDE RECORDS SUMMARY | 2024-09-06 15:00 | XMS_ITS | Encounter Summary ---
Author Organization [employer] Address 75 [facility] 7t [place] [address] Care Team Providers Care Webbing Inspector Name Role Phone Vince Lockhart MD Primary Care Provide r Reason for Visit * Reason Onset Date Comments Med Refill 08/28/2024 Encounter Details Date Type Department Care Team (Late st Contact Info) Description 08/28/[address] [facility] MEDICINE 230 [place] [address] Georgina Ann, GUERO Uncomplicated opioid dependence (CMS/HCC) [...] Description 09/11/2024 9:00 AM EST Office Visit [address] [address] Alexander Jones MD [address] [place] [address] 09/18/2024 9:00 AM EST Office Visit [address] [address] Alexander Jones MD [address] [place] [address] 10/29/2024 11:30 AM EDT Office Visit [address] [address] Vince Lockhart MD [address] [place] [address] documented as of this encounter Goals Goal [...] documented as of this encounter Care Teams Webbing Inspector Relationship Specialty Start Date End Date Vince Lockhart MD [address] [place] [address] PCP - General Internal Medicine 04/10/14 [facility] 12/29/23 documented as of this encounter
--- OUTSIDE RECORDS SUMMARY | 2024-09-06 15:00 | XMS_ITS | Encounter Summary ---
Author Organization [employer] Address [address] [facility] [address] [place] [address] Care Team Providers Care Wet Room Supervisor Name Role Phone Vince Lockhart MD Primary Care Provide r Reason for Visit * Reason Comments Care Coordination CHW outreach for SDO H PT-1 and food needs-referral completed Encounter Details Date Type Department Care Team (Latest Contact Info) Description 08/28/2024 Patient Outreach [facility] [address] [place] [address] Vince Lockhart MD [address] [place] [address] Care Coordination (CHW outreach for SDOH PT-1 [...] the past 12 months, has t he [employer], gas, oil or water company threatened to [...] encounter Progress Notes * Ramon Olmos - 08/28/2024 9:53 AM EST CHW Ramon Olmos, placed outbound call to patient for assistance with SDOH as a referral was received by the provider. Patient's name and were confirmed. Patient screened positive for the following SDOH transportation & food insecurities. CHW requested PT-1 plus referred family to B pantries in the local area. Patient agree to follow up with plan. Patient educated on extended clinic hours on Mondays through Wednesdays, and Walk-In Urgent Care Located in [facility] of [facility]. Patient provided with after-hours line for [facility], , which offer night time triage service and option to transfer to supervisor shrimp pond provider if needed. documented in this encounter Plan of Treatment Upcoming Encounters Date Type Department Care Team (Late st Contact Info) Description 09/11/2024 9:00 AM EST Office Visit [facility] [place] [address] [place] [address] 09/18/2024 9:00 AM EST Office Visit [facility] [place] [address] Alexander Jones MD [place] [id number] 10/29/2024 11:30 AM EDT Office Visit [facility] [place] [address] [place] [address] documented as of this encounter Goals Goal [...] as of this encounter Care Teams Wet Room Supervisor Relationship Specialty Start Date End [place] [address] PCP - General Internal Medicine 04/10/14 [facility] 12/29/23 documented as of this encounter
--- OUTSIDE RECORDS SUMMARY | 2024-09-06 15:00 | XMS_ITS | Encounter Summary ---
Author Organization [employer] Address [address] [place] [address] Care Team Providers Care Office Messenger Name Role Phone Vince Lockhart MD Primary Care Provide r Osiel Mendez PharmD Unavailable [phone] Encounter Details Date Type Department Care Team (Late Contact Info) Description 10/03/2022 Abstract [facility] [address] [place] [address] Vince Lockhart MD [address] [place], [place] [phone] Social History Tobacco Use Types Packs/Day Years [...] Description 09/11/2024 9:00 AM EST Office Visit [facility] [address] [place], [place] [phone] [place] [address] 09/18/2024 9:00 AM EST Office Visit [facility] [place] [place] [address] [place] [address] 10/29/2024 11:30 AM EDT Office Visit [facility] [place] [address] [place] [address] documented as of this encounter Visit Diagnoses Not on filedocumented in this encounter Care Teams Office Messenger Relationship Specialty Start Date End [place] [address] PCP - General Internal Medicine 04/10/14 [place] [address] Pharmacist Internal Medicine 12/19/22 06/11/23 [facility] 12/29/23 documented as of this encounter
--- OUTSIDE RECORDS SUMMARY | 2024-09-06 15:01 | XMS_ITS | Clinical Summary ---
Author Organization [facility] Address [address] [place] [address] Care Team Providers Care Cardiac Specialist Name Role Phone Unavailable Primary Care Provider Unavailabl e Social History Tobacco Use Types Packs/Day Years Used Date Smoking Tobacco: Never Assessed Sex and Gender Information Value Date Recorded Sex Assigned at Not on file Legal Sex Male 11:17 AM EST Gender Identity Not on file Sexual Orientation Not on file Plan of Treatment Health Maintenance Due Date Last Done Comments DTaP,Tdap,and Td Vaccines (1 - Tdap) 1982 Pneumococcal Vaccine: 50+ Ye ars (1 of 1 - PCV) 2013 Zoster Vaccines (1 of 2) 2013 Cholesterol Screening (Lipid Panel) 06/14/2022 Colorectal Cancer Screening: Colonoscopy 06/14/2022 Depression Screening 06/14/2022 HIV Screening 06/14/2022 Hepatitis C Screening 06/14/2022 Social Influencers of Health Screening 06/14/2022 COVID-19 Vaccine (1 - 2023-2 5 season) 2024 Influenza Vaccine [...] patient's age to complete this topic Meningococcal B Vacine Aged Out No lo nger eligible based on patient's age to complete [...]
--- OUTSIDE RECORDS SUMMARY | 2024-09-06 15:01 | XMS_ITS | Clinical Summary ---
Author Organization [employer] Address [address] [place] [address] Care Team Providers Care Fly Finisher Name Role Phone Vince Lockhart MD [...] NEEDED FOR ANXIETY OR FOR RESTLESSNESS Active QUEtiapine (SEROquel) 100 MG tablet TAKE [...] BY MOUTH EVERY MORNING 30 tablet 3 Active senna-docusate sodium (Senokot-S) 8.6-50 MG tabletIndications :Constipation, unspecified constipation type TAKE 1 TABLET BY MOUTH IN THE MORNING AND AT BEDTIME IF NEEDED FOR CONSTIPATION 60 tablet 6 Active risperiDONE (RisperDAL) 1 MG tabletIndications :Mixed Bipolar Affective Disorder TAKE 1 TABLET (1 MG) BY MOUTH IN THE MORNING. 30 tablet Active clonazePAM (KlonoPIN) 0.5 MG tabletIndications :Anxiety [...] OR SPLIT. 90 tablet 1 025 Active QUEtiapine (SEROquel) 400 MG tablet TAKE 1 TABLET (400 MG) BY MOUTH AT BEDTIME. 30 tablet 1 025 Active albuterol (Ventolin HFA) [...] 8/2mg BID regimen. Do not start before September 04, 2024. 7 Film 025 2024 Active Buprenorphine HCl-Naloxone HCl (Suboxone) 8-2 MG SL filmIndications:U ncomplicated opioid dependence (CMS/HCC) Place 1 Film under the tongue 2 times daily for 7 days. Suboxone 4mg/1mg SL daily added to the 8/2mg BID regimen. Do not start before September 04, 2024. 14 Film 025 2024 Active venlafaxine XR (Effexor XR) 150 MG 24 hr capsuleIndication s:Depressive disorder,Bipolar affective disorder, currently depressed, moderate (CMS/HCC) TAKE 1 CAPSULE (150 MG) BY MOUTH IN THE MORNING. DO NOT CRUSH OR CHEW. 30 capsule 10 025 2025 Active venlafaxine XR (Effexor XR) 150 MG 24 hr capsuleIndication s:Depressive disorder,Bipolar affective disorder, currently depressed, moderate (CMS/HCC) Take 1 capsule (150 mg) by mouth in the morning. Do not crush or chew. 30 capsule 11 024 2024 Discontinued QUEtiapine (SEROquel) 400 MG tablet TAKE 1 TABLET (400 MG) BY MOUTH AT BEDTIME. 30 tablet 2 024 2024 Discontinued albuterol (Ventolin HFA) 108 (90 Base) MCG/ACT inhaler INHALE 2 PUFFS BY MOUTH EVERY 4 TO 6 HOURS NEEDED 18 g 024 2024 Discontinued buprenorphine-nal oxone (Suboxone) 4-1 MG per sublingual [...] eorder (will not trigger notification to Pharmacy)) albuterol (Ventolin HFA) 108 (90 Base) MCG/ACT inhaler INHALE 2 PUFFS BY MOUTH EVERY 4 TO 6 HOURS NEEDED 18 g 025 2024 Discontinued buprenorphine-nal oxone (Suboxone) 4-1 MG per sublingual filmIndications:U ncomplicated opioid dependence (CMS/HCC) Place 1 Film under the tongue Once per day for 7 days. This is in addition to his 8/2mg BID regimen. Do not start before August 21, 2024. 7 Film 025 2024 Discontinued(R eorder (will not trigger notification to Pharmacy)) Buprenorphine HCl-Naloxone HCl (Suboxone) 8-2 MG SL filmIndications:U ncomplicated opioid dependence (CMS/HCC) Place 1 Film under the tongue 2 times daily for 7 days. Suboxone 4mg/1mg SL daily added to the 8/2mg BID regimen. Do not start before August 21, 2024. 14 Film 025 2024 Discontinued(R eorder (will not trigger notification to Pharmacy)) buprenorphine-nal oxone (Suboxone) 4-1 MG per sublingual filmIndications:U ncomplicated opioid dependence (CMS/HCC) Place 1 Film under the tongue Once per day for 7 days. This is in addition to his 8/2mg BID regimen. Do not start before August 28, 2024. 7 Film 025 2024 Discontinued(R eorder (will not trigger notification to Pharmacy)) Buprenorphine HCl-Naloxone HCl (Suboxone) 8-2 MG SL filmIndications:U ncomplicated opioid dependence (CMS/HCC) Place 1 Film under the tongue 2 times daily for 7 days. Suboxone 4mg/1mg SL daily added to the 8/2mg BID regimen. Do not start before August 28, 2024. 14 Film 025 2024 Discontinued(R eorder [...] positive. Under the care of Dr Gerber Internal Revenue Agent kathleen greene 04/16/2024 who recommended Apixaban 5 mg po BID x 3 months and follow up with him. Pt reports compliance with it. Repeat CT 06/24/2024 showed: IMPRESSION: 1. No central or segmental pulmonary emboli. 2. Mild centrilobular emphysema. VTE: negative. Pneumonia due to infectious organism 01/09/2024 Assessment & Plan (01/09/2024 10:18 AM EDT): Pt admitted to [facility] for Acute hypoxic respiratory failure and COPD [...] chest x-ray for resolution We contacted his Internal Revenue Agent Dr. Gerber. He was given an appointment for this Monday at 10:15 AM I contacted his VNA who will be arranging transportation for him. Obtain Plain x-ray of chest for f/u Pneumonia. Acute pain of right shoulder 01/09/2024 Assessment & Plan (01/09/2024 10:15 AM EDT): Seen at our [facility] 01/04/2024 Plain films showed: No acute finding. [...] PET CT , Pt referred back to [facility] [place] for consideration of lung biopsy he is a patient of Dr. Gerber. While in the Hospital Pt had a repeat Chest CT 11/29/2023 ( [facility] ) that showed: IMPRESSION: 1. Near complete [...] biopsy was aborted. Pt has appointment with Internal Revenue Agent Dr. Gerber this Monday at 10:15 AM [...] PET CT Ordered, Pt referred back to [facility] for consideration of [...] Pt tells me has an appointment with [facility] for Behavioral health 09/26/2023 I have agreed [...] Pt tells me has an appointment with [facility] for Behavioral health next week, I have [...] him to harm himself. While in the Hpspital he was found to be depressed with [...] insomnia Pt apparently has an appointment with [facility] for Behavioral health on Monday, I have asked our Care management department to get involved since I am concerned pt is unable to navigate the system on his own. Chronic low back pain without sciatica 3 Assessment & Plan (10/03/2023 9:51 AM EDT): [...] obtain MRI lumbar spine Will refer to [facility] Assessment & [...] Emotions were normalized and validated. He was birdieo tyrese to identify coping mechanisms or protective [...] of major depressive disorder with psychotic features (CMS/[facility]) Patient ready to address current needs Yes Strengths include Willing to engage in services. PLAN: 1. Follow up with [facility]: Recommended for follow-up: during AUD clinic appt [...] seen by a therapist and psychiatrist at [facility]; awaiting follow-up appointments. etiquette coach in place through [facility] as well as attending group on Monday mornings. Patient has information about [facility] and [facility]. 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 Follow up with [facility]: Not recommended for follow-up 2. Patient goal is to remain sober 3. Behavioral Recommendations a. Comply with medication b. Attend groups c. Engage in therapy and psychiatry d. Utilize motor coach driver as a support e. May reach out to [facility] for additional support Assessment & Plan (10/03/2022 5:03 PM EDT): Sent to ED/section 12a form filled out. Called ambulance and [facility] ED for soft sign [...] Unclear current meds, no discharge summary from [facility] available. Spoke with [facility] crisis pipe supervisor Jaci And suggested to send to ED, [...] WNL. Pt was also referred to a client success specialist to r/o hematologic conditions. vs anemia [...] WNL. Pt was also referred to a client success specialist to r/o hematologic conditions. vs anemia of chronic disease. and to GI to r/o GIB. Pt did nto go to either. compliance is a major problem. Last CBC 06/03/2022 was unchanged. Preventative health care 08/01/2022 Assessment & Plan (07/02/2024 [...] his left index finger. initially evaluated at [facility] for consideration of excision. They recommended pt see a supervisor garage. he was seen by a local supervisor garage Dr Ortiz who recommended a plastic surgeon [...] 10:35 AM EDT): He was admitted to [facility] from 11/28-12/14 due to acute metabolic [...] and COPD exacerbation he was transferred to [facility] 12/16/2023 psychiatric siu where he remained until 12/28/2023 His medications were adjusted and once stable he was discharged. Pt today reports he feels good, is back at [facility] and feels much better. No concerns Assessment & Plan (07/04/2023 4:14 PM EST): Here after a recent Hospital admission where he was admitted for depression and underlying Bipolar disorder Assessment & Plan (04/18/2023 11:50 AM EDT): Patient here for a HDF admitted to [facility] from 04/01 until 04/03 presented via EMS for increased SOB. Admitted for COPD exacerbation, started on nebs, steroids, and cough medication. Discharged home on 2 more days of azithromycin, prednisone and codeine/guaifenesin for cough. ?? Patient was then admitted to [facility] from 04/05 until 04/07 with viral URI and COPD exacerbation. Treated with prednisone and azithromycin x 3 days. Given Breo, Spiriva and Duonebs prn. Patient improved and ambulated w/o difficulty. Discharged on 3 more days of prednisone, Spiriva, Symbicort and albuterol. Discharged home to f/u [facility] PCP. Pt was seen by [...] HDF, recently admtted and discharged 02/24 from [facility] after he presented with [...] 12 in the ED and admitted to [facility] from 06/21 to 07/08 for severe [...] stay. Patient discharged home to F/U with [facility]ALTH SYSTEM. ?Patient reports feeling ? better? since discharge. Using medications prescribed at discharge, and reports he is in need of refills. Patient gets help from nurse to administer medications. Patient reports having F/U with a counselor however reports that appointment is in [place] and reports interest in getting counselor or psych treatment at [facility]. Pulmonary emphysema 06/14/2022 Assessment & Plan (01/09/2024 [...] PET/CT or biopsy. I referred back to [facility] Pulmonology department since he is a patient of Buzz Barcenas and I ordered a PET-CT but this was not done ( pt was admitted to the Hospital ) Repeat Chest CT at [facility] showed: IMPRESSION: 1. Near complete resolution of [...] or biopsy. I have referred back to [facility] Pulmonology department since he is [...] he no showed Recently hospitalized 01/16/2023 at [facility] for COPD exacerbation as [...] twice, no showed Recently hospitalized 01/16/2023 at [facility] for COPD exacerbation as [...] at our [facility] tomorrow Recent test at [facility] 03/24/2023 was positive for Cocaine Patient was referred for our [facility] Cocaine support group. I had a explained to patient that he is not a good candidate for Narcotics given his Hx of substance abuse and active use of Cocaine Assessment & Plan (03/28/2023 1:01 PM EDT): Previous visit he told me he was not using Recent test at [facility] 03/24/2023 was positive for [...] Plan (02/07/2023 12:55 PM EDT): Admitted to [facility] 01/16/2023 for COPD exacerbation in the setting of ongoing cocaine abuse Pt referred to the [facility] Assessment & Plan (10/03/2022 5:03 [...] EDT): I spoke with pt's VNA from [facility] . Pt is already scheduled to [...] intervention, Augustin agreed. Patient has Psychiatrist at [facility] but his VNA adriana has not been [...] obtain help. PLAN: 1. Follow up with [facility]: Recommended for follow-up: during OBAT appt 2. Patient goal is to imporve mental health and become sober 3. Behavioral Recommendations a. Crisis Evaluation b. Taking Psych meds as prescribed c. Keeping in touch with -MR and [facility] Assessment & Plan (04/04/2023 4:02 PM EDT): Patient here for a follow up He has a VNA from [facility] . He was supposed to see [...] and others were modified. Previously admitted to [facility] from 06/21 to 07/08 for severe depression with SI and planned to OD on pills. Patient reported his son was murdered and he fell into deep depression, and relapsed to using cocaine daily. Assessment & Plan (03/07/2023 1:41 PM EDT): Patient here for a follow up I spoke with pt's VNA from [facility] . Pt is already scheduled to [...] to miss his appointments Previously admitted to [facility] from 06/21 to 07/08 for severe depression with SI and planned to OD on pills. Patient reported his son was murdered and he fell into deep depression, and relapsed to using cocaine daily. Assessment & Plan (02/07/2023 12:59 PM EDT): Patient here for a follow up Previously admitted to [facility] from 06/21 to 07/08 for severe [...] he was seeing Dr Jeffery Harkins in [place] The recommendation from [facility] is that once patient was stable on [...] tells me has a follow up at [facility] on 08/17/2022 at 1:30 PM was also sectioned 12 in the ED and admitted to [facility] from 06/21 to 07/08 for severe [...] stay. Patient discharged home to F/U with HEALTH SYSTEM. Prior to this admission pt told me he was seeing Dr Jeffery Harkins in [place] Prior to his admission he was on a lower dose of Seroquel (300 mg at bedtime plus 100 mg at bedtime). He was also on a higher dose of Mirtazapine of 30 mg at bedtime, Paxil 30 mg at HS and Klonopin 1 mg BID prescribed by Dr Jeffery Harkins. The recommendation from [facility] is that once patient was stable on Venlafaxine 75 to taper him off Mirtazapine and Klonopin. Plan: DC Paxil, Lower Klonopin to 0.5 mg po BID PRN x 1 month then every day x 1 month then every other day until DC Encounters Date Type Department Care Team Description 09/06/2024 Refill [facility] [place] [address] Georgina Ann RN Uncomplicated opioid dependence ([facility]/HCC) 09/04/2024 9:00 AM EST Clinical Support [facility] [address] [place] [address] Georgina Ann, RN Opioid type dependence, continuous ([facility]) (Primary Dx) 09/04/2024 Telephone [facility] [address] [place] [address] Vince Lockhart MD Med Refill 09/04/2024 Travel 08/31/2024 Refill [facility] [address] [place] [address] Vince Lockhart MD Depressive disorder; Bipolar affective disorder, currently depressed, moderate (CMS/HCC) 08/28/2024 9:00 AM EST Office Visit [facility] [place] [address] Alexander Jones MD Uncomplicated opioid dependence (CMS/HCC) (Primary Dx) 08/28/2024 Refill [facility] [place] [address] Georgina Ann, RN Uncomplicated opioid dependence (CMS/HCC) 08/28/2024 Patient Outreach [facility] [place] [address] Vince Lockhart MD Care Coordination ([facility] outreach for SDOH PT-1 and food needs-referral completed /) 08/28/2024 Travel 08/28/2024 Telephone [facility] [place] [address] Vince Lockhart MD PT-1 08/24/2024 Refill [facility] [place] [address] Vince Lockhart MD 08/23/2024 Telephone [facility] [place] [address] Vince Lockhart MD Durable Medical Equipment 08/21/2024 9:00 AM EST Office Visit [facility] [place] [address] Alexander Jones MD Opioid type dependence, continuous (CMS/HCC) (Primary Dx) 08/21/2024 Refill [facility] [place] [address] Georgina Ann, GUERO Uncomplicated opioid dependence (CMS/HCC); Substance-related disorder (CMS/HCC) 08/21/2024 Refill [facility] [place] [address] Vince Lockhart MD 08/21/2024 Telephone [facility] [place] [address] Michelle Shin, RN Results 08/21/2024 Travel 08/20/2024 Orders Only [facility] [place] [address] Vince Lockhart MD Renal lesion (Primary Dx) 08/19/2024 Refill [facility] [place] [address] Vince Lockhart MD 08/14/2024 9:00 AM EST Office Visit [facility] [place] [address] Alexander Jones MD Uncomplicated opioid dependence (CMS/HCC) (Primary Dx) 08/14/2024 Refill [facility] [place] [address] Georgina Ann RN Uncomplicated opioid dependence (CMS/HCC) 08/14/2024 Patient Outreach [facility] [place] [address] Trenton Hollow[facility] Supports 08/14/2024 Travel 08/08/2024 Refill [facility] [place] [address] Vince Lockhart MD 08/07/2024 9:00 AM EST Office Visit [facility] [place] [address] Alexander Jones MD Uncomplicated opioid dependence (CMS/HCC) (Primary Dx) 08/07/2024 Telephone [facility] [place] [address] Georgina Ann RN 08/07/2024 Refill [facility] [place] [address] Georgina Ann RN Uncomplicated opioid dependence ([facility]/HCC) 08/07/2024 Travel 08/02/2024 Telephone [facility] [place] [address] Georgina Ann RN 08/01/2024 Telephone [facility] [place] [address] Alexander Jones MD 07/31/2024 1:30 PM EST Clinical Support [facility] [place] [address] Georgina Ann RN Uncomplicated opioid dependence (CMS/HCC) (Primary Dx) 07/31/2024 9:15 AM EST Office Visit [facility] [address] [place] [address] Medhat, Carla, OD Presbyopia (Primary Dx) 07/31/2024 Refill [facility] [address] [place] [address] Rashaun Vila RN 07/31/2024 Travel 07/31/2024 Refill [facility] [address] [place] [address] Georgina Ann RN Uncomplicated opioid dependence ([facility]/HCC) 07/30/2024 Refill [facility] [address] [place] [address] Vince Lockhart MD Hospital discharge follow-up 07/26/2024 Refill [facility] [address] [place] [address] Georgina Ann RN Uncomplicated opioid dependence ([facility]/HCC) 07/24/2024 9:00 AM EST Office Visit [facility] [address] [place] [address] Alexander Jones MD Opioid type dependence, continuous (CMS/HCC) (Primary Dx) 07/24/2024 Travel 07/24/2024 Patient Outreach [facility] [address] [place] [address] Vince Lockhart MD Care Coordination ([facility] outreach for SDOH PT-1 and food needs-referral completed /) 07/24/2024 Telephone [facility] [address] [place] [address] Vince Lockhart MD 07/24/2024 Refill [facility] [address] [place] [address] Vince Lockhart MD Cocaine abuse ([facility]/HCC) 07/19/2024 Refill [facility] [address] [place] [address] Georgina Ann RN Uncomplicated opioid dependence ([facility]/HCC) 07/03/2024 9:00 AM EST Office Visit [facility] [place] [address] Alexander Jones MD Uncomplicated opioid dependence (CMS/HCC) (Primary Dx) 07/03/2024 Travel 07/02/2024 10:30 AM EST Office Visit [facility] [place] [address] Vince Lockhart MD Sleep disturbances (Primary Dx); Elevated random blood glucose level; Acute pulmonary embolism without acute cor pulmonale, unspecified pulmonary embolism type (CMS/HCC); Primary hypertension; Cocaine abuse (CMS/HCC); Routine physical examination; 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, unspecified whether recurrent (CMS/HCC); Weight loss; Bipolar affective disorder, currently depressed, moderate (CMS/HCC); Preventative health care 07/02/2024 Refill [facility] [place] [address] Georgina Ann RN Uncomplicated opioid dependence (CMS/HCC) 07/02/2024 Travel 07/01/2024 Patient Outreach [facility] [place] [address] Vince Lockhrat MD Care Coordination ([facility] outreach for SDOH PT-1 and food needs-referral completed /) 07/01/2024 Telephone [facility] [place] [address] Vince Lockhart MD PT-1 06/26/[address] [facility] [place] [address] Vince Lockhart MD Chart Prep 06/26/2024 Telephone [facility] [place] [address] Yvette Alford MA 06/24/2024 Orders Only GENERIC EXTERNAL DATA DEPARTMENT Provider, Generic External Data 06/24/2024 Refill [facility] [place] [address] Georgina Ann RN Uncomplicated opioid dependence ([facility]/HCC) 06/21/2024 Patient Outreach [facility] [place] [address] Vince Lockhart MD Pre-visit Planning (SDOH screening was completed on 09/25/2023) 06/18/2024 Refill [facility] [address] [place] [phone] Georgina Ann RN Uncomplicated opioid dependence (CMS/HCC) 06/14/2024 Refill [facility] [address] [place] [address] Vince Lockhart MD 06/12/2024 9:00 AM EST Clinical Support [facility] [address] [place] [phone] Migdalia Ji RN Opioid type dependence, continuous (CMS/HCC) (Primary Dx) 06/12/2024 Travel 06/10/2024 2:00 PM EST Office Visit [facility] [address] [place] [address] Reji Manning, DMD 06/07/2024 Refill [facility] [address] [place] [address] Georgina Ann, GUERO Uncomplicated opioid dependence (CMS/HCC) from Last 3 [...] 09/11/2024 9:00 AM EST Office Visit [address] [address] Alexander Jones MD [address] [place] [phone] 09/18/2024 9:00 AM EST Office Visit [address] [address] Alexander Jones MD [address] [place] [phone] 10/29/2024 11:30 AM EDT Office Visit [address] [address] Vince Lockhart MD [address] [place] [phone] Health Maintenance Due Date Last Done Comments [...] 07/02/2024 Depression Screening 07/02/2025 07/02/2024, 07/02/20 24 Diabetes: Hemoglobin A1C 08/21/2025 08/21/2024 Dental X-Ray: Full Mouth 10/26/2026 10/26/2023, 07/18 Colonoscopy 01/09/2028 01/08/2018 Colorectal Cancer Screening 01/09/2028 Lipid Panel 08/21/2029 08/21/2024, 03/01/2021 DTaP/Tdap/Td Vaccines (2 - Td or Tdap) [...] to perform daily activities General No Georgina Ann RN Procedures Procedure Name Priority Date/Time Associated Diagnosis Comments POCT MARIA ANTONIA-14 URINE DRUG SCREEN Routine 09/04/2024 8:54 AM EST Opioid type dependence, continuous (CMS/HCC) POCT MARIA ANTONIA-14 URINE DRUG SCREEN Routine 08/28/2024 8:58 AM EST Uncomplicated opioid dependence (CMS/HCC) POCT MARIA ANTONIA-14 URINE DRUG SCREEN Routine 08/21/2024 9:30 AM EST Opioid type dependence, continuous (CMS/HCC) HEMOGLOBIN A1C Routine 08/21/2024 9:04 AM EST Elevated random blood glucose level LIPID PANEL, STANDARD Routine 08/21/2024 9:04 AM EST Primary hypertension PSA, SCREEN Routine 08/21/2024 9:04 AM EST Routine physical examination BASIC METABOLIC PANEL Routine 08/21/2024 9:04 AM EST Elevated random blood glucose level PSA, TOTAL Routine 08/21/2024 9:04 AM EST Routine physical examination Preventative health care MR LUMBAR SPINE WO CONTRAST Routine 08/19/2024 [...] - MANDIBULAR Routine 06/10/2024 2:00 PM EST CASE PRESENTATION, DETAILED AND EXTENSIVE TREATMENT PLANNING Routine 06/10/2024 2:00 PM EST PANORAMIC RADIOGRAPHIC IMAGE Routine 10/26/2023 10:30 AM EDT HEPATITIS C AB W/REFL TO HCV RNA, QN, PCR Routine 08/24/2023 2:22 PM EST Uncomplicated opioid dependence (CMS/HCC) HIV 1/2 ANTIGEN/ANTIBODY, FOURTH GENERATION W/RFL Routine 08/24/2023 2:22 PM EST Uncomplicated opioid dependence (CMS/HCC) BITEWINGS - 4 RADIOGRAPHIC IMAGES Routine 04/06/2018 12:00 AM EDT PERIODIC ORAL EVALUATION - ESTABLISHED PATIENT Routine 04/06/2018 12:00 AM EDT HM COLONOSCOPY Routine 01/08/2018 PROPHYLAXIS - ADULT Routine 11/25/2014 1 2:00 AM EDT from Last 3 Months or Most Recently Relevant to Health Maintenance Results * POCT MARIA ANTONIA-14 Urine Drug Screen (09/04/2024 8:54 AM EST) Only the most recent of10 resultswithin the time period is included. THC [...] TEST ENTER/EDIT OR DERABLES Final Result * PSA, Screen (08/21/2024 9:04 AM EST) PSA, Total 1.52 <0.05 - 4.0 ng/mL [facility] Comment:PSA methodology: Abb kvng Alinity i ChemiluminescentMicroparticle Immunoassay (CMIA) Blood Venous blood specimen / Unknown 08/21/2024 9:04 AM EST 08/21/2024 10:51 AM EST Vince Avelar MD LAB BLOOD ORDERABLES Final Result Performing Organization Address City/[facility]/ZIP Co de Phone Number [facility] [address] [place] [phone] * PSA,Total (08/21/2024 9:04 AM EST) Prostate Specific Antigen 1.58 <0.05 - 4.0 ng/mL [facility] Comment:PSA methodology: Abb kvng Guzmanty i ChemiluminescentMicroparticle Immunoassay (CMIA) Blood Venous blood specimen / Unknown 08/21/2024 9:04 AM EST 08/21/2024 10:51 AM EST Vince Avelar MD LAB BLOOD ORDERABLES Final Result Performing Organization Address City/[facility]/ZIP Co de Phone Number [facility] [address] [place] [phone] * Hemoglobin A1c (08/21/2024 9:04 AM EST) Hemoglobin A1c 5.7 <6.0 % [facility] Comment:Hemoglobin A1C Refer ence Range Adults: 4.8 - 6.0 % Non diabetic: < 6.0 % Goal: < 7.0 %Additional Action Suggested: > 8.0 %Note: Hemoglobin A1c results are invalid for patients with abnormal amounts of HbF. Blood transfusions may impact the HbA1c concentration in the patient sample. Estimated Average Glucose 117 mg/dL [facility] Comment:eAG = Estimated ave rage glucose which is %A1C expressed asaverage glucose, using the formula of the Y4O-MnnvxbrIkchzuz Glucose study (ADAG), Diabetes Care, Vol.31,#8,Feb. 2007 Blood Venous blood specimen / Unknown 08/21/2024 9:04 AM EST 08/21/2024 10:51 AM EST Vince Avelar MD LAB BLOOD ORDERABLES Final Result [facility] [address] [place] [address] [phone] * Lipid Panel, Standard (08/21/2024 9:04 AM EST) Triglycerides 65 <150 mg/dL [facility] Comment:Desirable Triglyceri de: less than 150 mg/dLBorderline High Triglyceride 150-199 mg/dLHigh Triglyceride: 200-499 mg/dLVery High Triglyceride: greater than or equal to 5OO mg/dL Cholesterol 137 <200 mg/dL [facility] Comment:Desirable Cholestero l: less than 200 mg/dLBorderline High Cholesterol: 200-239 mg/dLHigh Cholesterol: greater than 239 mg/dL LDL Cholesterol Calculated 74 <100 mg/dL [facility] Comment:Desirable LDL: less than 100 mg/dLNear Optimal/Above Optimal LDL: 110- 129 mg/dLBorderline High LDL: 130-159 mg/dLHigh LDL: 160-189 mg/dLVery High LDL: greater than or equal to 190 mg/dL HDL Cholesterol 50 >40 mg/dL [facility] Comment:Desirable HDL: great er than 40 mg/dL Note: This HDL assay may give artificially low results in patients with liver disease. Blood Venous blood specimen / Unknown 08/21/2024 9:04 AM EST 08/21/2024 10:51 AM EST Vince Avelar MD LAB BLOOD ORDERABLES Final Result [facility] [address] [place] [phone] * (ABNORMAL) Basic Metabolic Panel (08/21/2024 9:04 AM EST) Sodium 139 135 - 145 mmol/L [facility] Potassium 4.0 3.3 - 5.1 mmol/L [facility] Chloride 107 96 - 108 mmol/L [facility] Carbon Dioxide 26 22 - 29 mmol/L [facility] Anion Gap 10(L) 12 - 20 [facility] Urea Nitrogen (BUN) 12 9 - 16 mg/dL [facility] Creatinine, Serum 0.80 0.5 - 1.4 mg/dL [facility] Estimated Glomerular Filt Rate >60 [facility] Comment:Chronic Kidney Disea se: Estimated GFR < 60 mL/min/[id number] Kidney Disease: Estimated GFR < 15 mL/min/1.73m2 Glucose 114 60 - 115 mg/dL [facility] Calcium 9.3 8.4 - 10.2 mg/dL [facility] Blood Venous blood specimen / Unknown 08/21/2024 9:04 AM EST 08/21/2024 10:51 AM EST us Vince Avelar MD LAB BLOOD ORDERABLES Final Result Performing Organization Address City/State/[facility] Co de Phone Number [facility] [address] [place] [address] [phone] * MR Lumbar Spine w/o Contrast (08/19/2024 12:13 PM EST) Anatomical Region Laterality Modality Spine, L-spine Magnetic Resonan ce 08/19/2024 12:1 3 PM EST Narrative 08/19/2024 12:14 PM EST ? [facility] ?[address] ?[place] [address] ? Magnetic Resonance Report ? Signed ? Patient: Vital,Augustin ?MR#: [id number] ?? [id number] ? : 1965 ?Acct:[id number] ? Age/Sex: 59 / M ?ADM Date: 02/02/25 ? Loc: HO.MRI ? Attending Dr: Vince Doran MD ? Ordering Physician: Vince Doran MD ?? Date of Service: 08/18/24 ?? Procedure(s): MR lumbar spine wo con ?? Accession Number(s): [id number] ? cc: Vince Doran MD ? CLINICAL [...] on ?? 08/19/2024 12:13:03 ? Dictated By: ?Thao Ball MD ? Signed By: ?<Electronically signed by Thao Ball MD in OV> ? 08/19/243 ? DD/ ? TD/TT: 08/19/243 ? Safety Administrator: ? Procedure Note Bao Noriega - 08/19/[address] [address] Magnetic Resonance Report Signed Patient: Loly Vital#: [id number] : 1965Acct:[id number] Age/Sex: 59 / MADM Date: 08/18/24 Loc: HO.MRI Attending Dr: Vince Doran MD Ordering Physician: Vince Doran MD Date of Service: 08/18/24 Procedure(s): MR lumbar spine wo con Accession Number(s): [id number] cc: Vince Doran MD CLINICAL HISTORY: chronic [...] 08/19/24 1213 DD/ 1213 TD/TT: 08/19/24 1213 Safety Administrator: us Vince Avelar MD IMG MRI PROCEDURES Fi nal Result * Magnesium (06/24/2024 5:16 PM EST) Only the most recent of2 resultswithin the time period is included. Magnesium 2.5 1.6 - 2.6 mg/dL [facility] 06/24/2024 5:16 PM EST 06/24/2024 5:19 PM EST us Generic External Data Provider LAB BLOOD ORDERAB LES Final Result [facility] [address] [place] [phone] * CTA Chest PE Protocal (06/24/2024 5:01 PM EST) Anatomical Region Laterality Modality Body, Chest Computed Tomogra phy 06/24/2024 5:01 PM EST Narrative 06/24/2024 8:08 PM EST ? [facility] ?[address] ?[place] [address] ? CT Scan Report ? Signed ? Patient: Vital,Augustin ?MR#: [id number] ?? [id number] ? : 1965 ?Acct:[id number] ? Age/Sex: 59 / M ?ADM Date: 06/24/24 ? Loc: HO.ED ? Attending Dr: ? Ordering Physician: Shruthi Jha ?? Date of Service: 06/24/24 ?? Procedure(s): CT angio chest PE protocol ?? Accession Number(s): [id number] ? cc: [facility]; Shruthi Jha ? EXAMINATION: ?? CT ANGIOGRAM [...] signed by Srini Pires MD in OV> ?06/24/242005 ? DD/ 1701 ? TD/TT: 06/24/24 1701 ? Safety Administrator: ? Procedure Note Bao Noriega - 06/24/[address] [place] [address] [address] Scan Report Signed Patient: Loly Vital#: [id number] : 1965Acct:[id number] Age/Sex: 59 / MADM Date: 06/24/24 Loc: HO.ED Attending Dr: Ordering Physician: Shruthi Jha Date of Service: 06/24/24 Procedure(s): CT angio chest PE protocol Accession Number(s): [id number] cc: [facility]; Shruthi Jha EXAMINATION: CT ANGIOGRAM OF THE [...] in OV> 06/24/242005 DD/ 00 TD/TT: 06/24/241700 Safety Administrator: [facility] External Provider IMG CT PROCEDURES Final Result * High Sensitivity Troponin I (06/24/2024 1:18 PM EST) TROPONIN I HIGH SENSITIVITY <2.7 <3.5 - 35.0 ng/L [facility] Comment:The Rosales high sens itivity Troponin-I results should beused in conjunction with other diagnostic information suchas ECG, clinical observations and information, and patientsymptoms to aid in the diagnosis of MS. 06/24/2024 1:18 PM EST 06/24/2024 1:22 PM EST Generic External Data Provider LAB BLOOD ORDERAB LES Final Result [facility] [address] [place] [phone] * SARS-CoV-2 RNA, Influenza A/B, and RSV RNA, Ql NAAT (06/24/2024 1:18 PM EST) [facility] Influenza A PCR NEGATIVE Negative [facility] Influenza B PCR NEGATIVE Negative [facility] Resp Syncy Virus RNA Qual PCR NEGATIVE Negative [facility] SARS COV2 PCR NEGATIVE Negative [facility] Comment:All test results mus t be [...] use by authorized laboratories.Testing performed on the [employer] GeneXpert utilizingreal-time RT-PCR.All SARS CoV2 and positive influenza A/B results arereported to [facility]. 06/24/2024 1:18 PM EST 06/24/2024 1:22 PM EST us Generic External Data Provider LAB MICROBIOLOGY - GENERAL ORDERABLES Final Result [facility] [address] [place] [phone] * (ABNORMAL) CBC auto differential (06/24/2024 1:18 PM EST) [facility] White Blood Count 5.6 4.8 - 10.8 X10*3/uL [facility] Red Blood Count 3.82(L) 4.60 - 5.80 X10*6/uL [facility] Hemoglobin 11.3(L) 14.0 - 18.0 g/dl [facility] Hematocrit 33.7(L) 42.0 - 52.0 % [facility] Mean Corpuscular Volume 88.2 80.0 - 98.0 fL [facility] Mean Corpuscular Hemoglobin 29.6 27.0 - 33.0 pg [facility] Mean Corpuscular HGB Conc 33.5 31.0 - 36.0 g/dl [facility] Red Cell Distribution Width 14.2 11.0 - 16.0 % [facility] Platelet Count 368 160 - 400 X10*3/uL [facility] Mean Platelet Volume 8.7(L) 9.4 - 12.4 fL [facility] Neutrophils Percent Auto 53.0 45 - 73 % [facility] Imm Gran Pct Auto 0.7(H) 0.0 - 0.4 % [facility] Lymphocytes Percent Auto 31.5 20 - 40 % [facility] Monocytes Percent Auto 10.9 2 - 11 % [facility] Eosinophils Percent Auto 3.2 0 - 4 % [facility] Basophils Percent Auto 0.7 0 - 2 % [facility] NRBC Pct Auto 0.0 0.0 - 0.2 /100WBC [facility] Neutrophils Absolute Auto 3.0 2.0 - 8.3 x10*3/uL [facility] Imm Gran Abs Auto 0.04(H) 0.00 - 0.03 X10*3/uL [facility] Lymphocytes Absolute Auto 1.8 1.2 - 4.9 X10*3/uL [facility] Monocytes Absolute Auto 0.6 0.1 - 1.2 X10*3/uL [facility] Eosinophils Absolute Auto 0.2 0.0 - 0.4 X10*3/uL [facility] Basophils Absolute Auto 0.0 0.0 - 0.2 X10*3/uL [facility] NRBC Abs Auto 0.000 0.0 - 0.012 X10*3/uL [facility] 06/24/2024 1:18 PM EST 06/24/2024 1:22 PM EST us Generic External Data Provider LAB BLOOD ORDERAB LES Final Result [facility] [address] [place] [phone] * Prothrombin Time-INR (06/24/2024 1:18 PM EST) Prothrombin Time 12.3 10.9 - 12.4 SEC [facility] INTERNATIONAL NORM RATIO 1.1 0.9 - 1.1 [facility] Comment:INTERNATIONAL NORMAL IZED RATIO (INR) REFERENCE [...] ORDERAB LES Final Result Performing Organization Address City/[facility]/ZIP Co de Phone Number [facility] [address] [place] [phone] * B Type Natriuretic Peptide (BNP) (06/24/2024 1:18 PM EST) Pathologist [facility] B Type Natriuretic Peptide <10 <100 pg/mL [facility] Comment:For those patients w ho are being treated with Natrecor(nesiritide, recombinant BNP), BNP testing should beperformed at least two hours post treatment in order toensure that only endogenous levels of BNP are detected. 06/24/2024 1:18 PM EST 06/24/2024 1:22 PM EST us Generic External Data Provider LAB BLOOD ORDERAB LES Final Result Performing Organization Address [facility]/ZIP Co de Phone Number [facility] [address] [place] [phone] * Lipase (06/24/2024 1:18 PM EST) Lipase 17 8 - 78 U/L [facility] 06/24/2024 1:18 PM EST 06/24/2024 1:22 PM EST us Generic External Data Provider LAB BLOOD ORDERAB LES Final Result [facility] [address], [place] [phone] * (ABNORMAL) Comprehensive Metabolic Panel (06/24/2024 1:18 PM EST) Sodium 138 135 - 145 mmol/L [facility] Potassium 3.8 3.3 - 5.1 mmol/L [facility] Chloride 106 96 - 108 mmol/L [facility] Carbon Dioxide 26 22 - 29 mmol/L [facility] Anion Gap 10(L) 12 - 20 [facility] Urea Nitrogen (BUN) 10 9 - 16 mg/dL [facility] Creatinine, Serum 0.60 0.5 - 1.4 mg/dL [facility] Creatinine Clr Calc Pharmacy 124.4 [facility] Comment:eGFR (calculated fro m the MDRD study equation) and eCrCl(calculated from the Cockcroft-Gault equation) are based ondifferent parameters and may not yield comparable results.If eCrCl result is absurd, please check patient'sheight/weight. Estimated Glomerular Filt Rate >60 [facility] Comment:Chronic Kidney Disea se: Estimated GFR < 60 mL/min/1.36z6Ooaffq Kidney Disease: Estimated GFR < 15 mL/min/1.73m2 Glucose 98 60 - 115 mg/dL [facility] Calcium 9.0 8.4 - 10.2 mg/dL [facility] Bilirubin, Total 0.2 0.0 - 1.0 mg/dL [facility] Aspartate Amino Transferase 20 5 - 37 U/L [facility] Alanine Aminotransferase 16 0 - 40 U/L [facility] Total Protein 6.9 6.5 - 8.0 g/dL [facility] Albumin Level 3.7 3.5 - 5.0 g/dL [facility] Alkaline Phosphatase 70 39 - 117 U/L [facility] 06/24/2024 1:18 PM EST 06/24/2024 1:22 PM EST us Generic External Data Provider LAB BLOOD ORDERAB LES Final Result [facility] [address] [place] [phone] [phone] * XR Chest 2 Views (06/24/2024 12:46 PM EST) Anatomical Region Laterality Modality Chest Radiographic Kailee ging 06/24/2024 12:4 6 PM EST Narrative 06/24/2024 2:33 PM EST ? [facility] ?[address] ?[place] [address] ?XRay Report ? Signed ? Patient: Amanuel,Augustin ?MR#: [id number] ?? [id number] ? : 1965 ?Acct:[id number] ? Age/Sex: 59 / M ?ADM Date: 06/24/24 ? Loc: HO.ED ? Attending Dr: ? Ordering Physician: Shruthi Jha ?? Date of Service: 06/24/24 ?? Procedure(s): XR chest 2V ?? Accession Number(s): [id number] ? cc: [facility]; Shruthi Jha ? EXAMINATION: ?? XR CHEST [...] DD/ 1246 ? TD/TT: 06/24/24 1305 ? Safety Administrator: PN ? Procedure Note Donotdanielinterpreter, Image - 06/24/[address] [address] XRay Report Signed Patient: Loly Vital#: [id number] : 1965Acct:[id number] Age/Sex: 59 / MADM Date: 06/24/24 Loc: HO.ED Attending Dr: Ordering Physician: Shruthi Jha Date of Service: 06/24/24 Procedure(s): XR chest 2V Accession Number(s): [id number] cc: [facility]; Shruthi Jha EXAMINATION: XR CHEST CLINICAL INFORMATION: [...] Arlyn Rivera MD 06/24/2024 02:30 PM EST Dictated By: Arlyn Rivera MD Signed By: <Electronically signed by Arlyn Rivera MD in OV> 06/24/24 1430 DD/ 1246 TD/TT: 06/24/24 1305 Safety Administrator: PN us [facility] External Provider IMG XR PROCEDURES Final Result * (ABNORMAL) Hepatitis C Antibody with Reflex to HCV, RNA, Quantitative, Real- Time PCR (08/24/2023 2:22 PM EST) Hepatitis C Antibody Reactive( A) Nonreactive [facility] Comment:Presumptive evidence of antibodies to HCV. Blood Venous blood specimen / Unknown 08/24/2023 2:22 PM EST 08/24/2023 4:01 PM EST Alexander Jones MD LAB BLOOD ORDERABLES Final Resul t Performing Organization Address [facility] Co de Phone Number [facility] [address] [place] [address] [phone] * HIV-1/2 Antigen and Antibodies, Fourth Generation, with Reflexes (08/24/2023 2:22 PM EST) HIV AB/AG Nonreactive Nonreactive [facility] Comment:HIV-1 p24 Ag and/or HIV-1/HIV-2 Ab not detected.A test result that is nonreactive does not exclude thepossibility of exposure to or infection with HIV-1 and/orHIV-2. Nonreactive results in this assay for individualswith prior exposure to HIV-1 and/or HIV-2 may be due toantigen and antibody levels that are below the limit ofdetection of this assay.The [employer] HIV Ag/Ab Combo assay result andsupplemental assay results should be interpreted inconjunction with the patient's clinical presentation,history and other laboratory results. If the results areinconsistent with clinical evidence, additional testing issuggested to confirm the result. Blood Venous blood specimen / Unknown 08/24/2023 2:22 PM EST 08/24/2023 4:01 PM EST Alexander Jones MD LAB BLOOD ORDERABLES Final Resul t Performing Organization Address [facility]/ZIP Co de Phone Number [facility] [address] [place] [phone] * Hm Colonoscopy (01/08/2018) Colonoscopy Normal Normal 01/08/2018 Narrative Yulisa Cochran - 01/08/2018 9:39 AM EDT Recommended 10 year follow up ( per provider notes) us Historical Provider HEALTH MAINTENANCE Edited Result - Final from Last 3 Months or Most Recently Relevant to Health Maintenance Insurance * Guarantor: Vital Augustin Account Type Relation to Patient Date of Phone Billing Address Personal/Family Self 1965 [address], [place] [facility] C3 Member Subscriber Plan / Payer (Ef fective 2023-Present) Name:Augustin Vital Relation to Subscriber:Self Name:Augustin Vital Payer ID:Not on file Group ID:Not on file Type:Medicaid Address: [address] [id number] [facility] MEDICAID STAND ADULT Member Subscriber Plan / Payer (Ef fective 2023-Present) Name:Augustin Vital Relation to Subscriber:Self Name:Augustin Vital Payer ID:Not on file Group ID:Not on file Type:Not on file Address: [facility] [address] [place] [address] * Guarantor: Augustin Vital Account Type Relation to Patient Date of Phone Billing Address Personal/Family Self [address] [place] [address] * Guarantor: Augustin Vital Account Type Relation to Patient Date of Phone Billing Address Personal/Family Self [address] [facility] [email or web address] [address] Care Teams Fly Finisher Relationship Specialty Start Date End Date Vince Lockhart MD [address] [place] [address] PCP - General Internal Medicine 04/10/14 [facility] 12/29/23
--- OUTSIDE RECORDS SUMMARY | 2024-09-06 15:01 | XMS_ITS | Encounter Summary ---
Author Organization [employer] Address [address] [facility] 7t [place] [address] Care Team Providers Care Manufacturers Service Representative Name Role Phone Vince Lockhart MD Primary Care Provide r Reason for Visit * Reason Comments GBOT F/U Encounter Details Date Type Department Care Team (Late st Contact Info) Description 08/21/2024 9:00 AM EST Office Visit [facility] MEDICINE [address] [place], [place] [phone] Alexander Jones MD 230 [place], [place] [phone] Opioid type dependence, continuous (CMS/HCC) (Primary Dx) [...] Progress Notes * Alexander Jones MD - 08/21/2024 9:00 AM EST Patient with heroin and cocaine use disorder Inconsistent follow-ups for his OBAT MAT, complicated by his medical issues Immune to Hep A/B History of Hepatitic C s/p treatment in 2017 (HCV RNA VL undetectable in 08/2023) Declined PrEP Incarceration history x2; lifetime arrests x6 ; 3 adult children (1 killed; 1 in penitentiary in [place]) Last LFT (04/03/2024) LAST GBAT VISIT 08/14/2024 UTOX: POS BUP [...] at the visit: Team RN, MAT Physician, Registered Nurse Maternal Child, Clinician, and Community Support Associate Opportunities provided to address individual medical/medication/ concerns TODAY GBAT VISIT 08/21/2024 UTOX: POS PERCY, BUP NEG FOR FEN Patient presents for Group-Based Opioid Treatment for OUD Reviewed the group goals, expectations and policies Consented to the group treatment options Actively participated in the group discussion with the topic of: Strategies for Maintaining the Process of Recovery Patient has medications in a locked box and has [facility]NA dispensing medications at home Patient requested to increase the dose of Suboxone Previously diagnosed with PE Following staff present at the visit: Team RN, MAT Physician, Registered Nurse Maternal Child, Clinician, and Community Support Associate Opportunities provided to address individual medical/medication/ concerns Review of Systems Psychiatric/Behavioral: Negative for behavioral problems and dysphoric mood. The patient is not nervous/anxious. Physical Exam Constitutional: Appearance: Normal appearance. Pulmonary: Effort: Pulmonary effort is normal. Neurological: Mental Status: He is alert. Psychiatric: Mood and Affect: Mood normal. Behavior: Behavior normal. Augustin was seen today for gbot f/u . Diagnoses and all orders for this visit: Opioid type dependence, continuous ([facility]) (Primary) - POCT MARIA ANTONIA-14 Urine [...] and PrEP Follow up in 1 week This information [...] Description 09/11/2024 9:00 AM EST Office Visit [address] [address] Alexander Jones MD [address] [place] [address] [phone] 09/18/2024 9:00 AM EST Office Visit [address] [phone] Alexander Jones MD [address] [place] [address] [phone] 10/29/2024 11:30 AM EDT Office Visit [address] [phone] Vince Lockhart MD [address] [place] [address] [phone] documented as of this encounter Goals Goal [...] 9:30 AM EST Opioid type dependence, continuous ([facility]) documented in this encounter Results * POCT MARIA ANTONIA-14 Urine Drug Screen (08/21/2024 9:30 AM EST) THC Negative Cocaine Screen, Urine [...] obtained by clean catch procedure / Unknown 08/21/2024 9:30 AM EST us Alexander Jones MD POINT OF CARE TEST ENTER/EDIT OR DERABLES Final Result documented in this encounter Visit Diagnoses Diagnosis Opioid type dependence, continuous ([facility])- Primary Opioid type dependence, continuous documented in this encounter Additional Health Concerns Assessment Noted Time PHQ-9 Depression Total Score: 4 07/02/20 24 10:58 AM EST documented as of this encounter Care Teams Manufacturers Service Representative Relationship Specialty Start Date End Date Vince Lockhart MD [address] [place] [phone] PCP - General Internal Medicine 04/10/14 [facility] [place] 12/29/23 documented as of this encounter
--- OUTSIDE RECORDS SUMMARY | 2024-09-06 15:01 | XMS_ITS | Encounter Summary ---
Author Organization [employer] Address [address] [facility] 7t [place] [address] Care Team Providers Care Regulatory Scientist Name Role Phone Vince Lockhart MD Primary Care Provide r Reason for Visit * Reason Comments GBAT Encounter Details Date Type Department Care Team (Latest Contact Info) Description 08/28/2024 9:00 AM EST Office Visit [facility] MEDICINE 230 [place], [place] [phone] Alexander Jones MD 230 [place], [place] [phone] Uncomplicated opioid dependence (CMS/HCC) (Primary Dx) Social [...] Progress Notes * Alexander Jones MD - 08/28/2024 9:00 AM EST Patient with heroin and cocaine use disorder Inconsistent follow-ups for his OBAT MAT, complicated by his medical issues Immune to Hep A/B History of Hepatitic C s/p treatment in 2017 (HCV RNA VL undetectable in 08/2023) Declined PrEP Incarceration history x2; lifetime arrests x6 ; 3 adult children (1 killed; 1 in alf in [place]) Last LFT (04/03/2024) LAST GBAT VISIT 08/21/2024 UTOX: POS PERCY, BUP [...] at the visit: Team RN, MAT Physician, Yard Pipe Grader, Clinician, and Dustless Operator Opportunities provided to address individual medical/medication/ concern TODAY GBAT VISIT 08/28/2024 UTOX: POS PERCY, BUP, [...] at the visit: Team RN, MAT Physician, Yard Pipe Grader, Clinician, and Dustless Operator Opportunities provided to address individual medical/medication/ concern Review of Systems Psychiatric/Behavioral: Negative for behavioral problems and dysphoric mood. The patient is not nervous/anxious. Physical Exam Constitutional: Appearance: Normal appearance. Pulmonary: Effort: Pulmonary effort is normal. Neurological: Mental Status: He is alert. Psychiatric: Mood and Affect: Mood normal. Behavior: Behavior normal. Augustin was seen today for gbat. Diagnoses and all orders for this visit: Uncomplicated opioid dependence (CMS/HCC) (Primary) - POCT MARIA ANTONIA-14 Urine Drug [...] 09/11/2024 9:00 AM EST Office Visit [address] [address] Alexander Jones MD [address] [place] [address] [phone] 09/18/2024 9:00 AM EST Office Visit [address] [address] Alexander Jones MD [address] [place] [address] [phone] 10/29/2024 11:30 AM EDT Office Visit [address] [phone] Vince Lockhart MD [address] [place] [address] [phone] documented as of this encounter Goals Goal [...] 08/28/2024 8:58 AM EST Uncomplicated opioid dependence ([facility]) documented in this encounter Results * POCT MARIA ANTONIA-14 Urine Drug Screen (08/28/2024 8:58 AM EST) THC Positive Cocaine Screen, Urine Positive Opiate Screen, Urine Negative Methamphetamine Screen Urine Negative Amphetamine Screen, Urine Negative Benzodiazepines Screen, Urine Negative Barbiturate Screen, Urine Negative Methadone Screen, Urine Negative Buprenophine Screen, Urine Positive TCA, Urine Positive MDMA Urine Negative ng/mL Oxycodone Screen, Urine Negative Phencyclidine (PCP), Urine Negative Propoxyphene, Urine Negative Fentanyl, Urine Negative Urine Urine specimen obtained by clean catch procedure / Unknown 08/28/2024 8:58 AM EST Alexander Jones MD POINT OF CARE TEST ENTER/EDIT OR DERABLES Final Result documented in this encounter Visit Diagnoses Diagnosis Uncomplicated opioid dependence (CMS/HCC)- Primary documented in this encounter Additional Health Concerns Assessment Noted Time PHQ-9 Depression Total Score: 4 07/02/20 10:58 AM EST documented as of this encounter Care Teams Regulatory Scientist Relationship Specialty Start Date End Date Vince Lockhart MD [address] [place] [phone] PCP - General Internal Medicine 04/10/14 [facility] 12/29/23 documented as of this encounter
--- OUTSIDE RECORDS SUMMARY | 2024-09-06 15:01 | XMS_ITS | Encounter Summary ---
Author Organization [employer] Address [address] [facility] 7t [place] [address] Care Team Providers Care Rectifier Operator Name Role Phone Vince Lockhart MD Primary Care Provide r Reason for Visit * Reason Comments Med Refill Encounter Details Date Type Department Care Team ([facility] st Contact Info) Description 07/04/2023 Refill [facility] MEDICINE 230 [place], [place] [phone] Monse Gonzalez MD 230 [place], [place] [phone] Social History Tobacco Use Types Packs/Day Years [...] Description 09/11/2024 9:00 AM EST Office Visit [facility] MEDICINE [address] [place] [address] Alexander Jones MD [address] [place] [address] 09/18/2024 9:00 AM EST Office Visit [address] [address] Alexander Jones MD [address] [place] [address] 10/29/2024 11:30 AM EDT Office Visit [address] [address] Vince Lockhart MD [address] [place] [address] documented as of this encounter Goals Goal [...] documented as of this encounter Care Teams Rectifier Operator Relationship Specialty Start Date End Date Vince Lockhart MD [address] [place] [phone] PCP - General Internal Medicine 04/10/14 [facility] [place] 12/29/23 documented as of this encounter
--- OUTSIDE RECORDS SUMMARY | 2024-09-06 15:01 | XMS_ITS | Encounter Summary ---
Author Organization [employer] Address [address] [facility] 7t [place] [address] Care Team Providers Care Abalone Processor Name Role Phone Vince Lockhart MD Primary Care Provide r Reason for Visit * Reason Onset Date Comments Nurse Triage 02/28/2024 Encounter Details Date Type Department Care Team ([facility] st Contact Info) Description 02/28/2024 Telephone [facility] MEDICINE 230 [place], [place] [phone] Vince Lockhart MD 230 [place], [place] [phone] Nurse Triage Social History Tobacco Use Types [...] 02/28/2024 1:18 PM EDT Triage call with [employer] Thermospray Operator ID [id number]. Pt reports headache and some dizziness for [...] call. Pt is advised to come to [facility] today and Pt asks if alright to [...] 09/11/2024 9:00 AM EST Office Visit [address] [address] Alexander Jones MD [address] [place] [address] 09/18/2024 9:00 AM EST Office Visit [address] [address] Alexander Jones MD [address] [place] [address] 10/29/2024 11:30 AM EDT Office Visit [address] [address] Vince Lockhart MD [address] [place] [address] documented as of this encounter Goals Goal [...] documented as of this encounter Care Teams Abalone Processor Relationship Specialty Start Date End Date Vince Lockhart MD 230 [place] [address] PCP - General Internal Medicine 04/10/14 [facility] 12/29/23 documented as of this encounter
--- OUTSIDE RECORDS SUMMARY | 2024-09-06 15:01 | XMS_ITS | Encounter Summary ---
Author Organization [employer] Address [address] [facility] 7t [place] [address] Care Team Providers Care Home Health Rn Name Role Phone Vince Lockhart MD Primary Care Provide r Reason for Visit * Reason Onset Date Comments Results 08/21/2024 Encounter Details Date Type Department Care Team ([facility] st Contact Info) Description 08/21/2024 Telephone [facility] MEDICINE 230 [place], [place] [phone] Michelle Shin, RN 230 [place] [address] Results Social History Tobacco Use Types Packs/Day Years [...] Telephone Encounter - Michelle Shin RN - 08/21/2024 9:35 AM EST T/C placed to pt re below imaging results and POC. No answer, left v/m. * Telephone Encounter - Michelle Shin RN - 08/21/2024 9:28 AM EST ----- Message from Vince Avelar MD sent at 08/20/2024 4:33 PM EST ----- Please contact patient to let him know his MRI showed: L5/S1: Mild disc bulge and facet hypertrophy associated with mild bilateral neural foraminal stenosis. L4/L5: Short pedicles and facet /ligamentum flava hypertrophy associated with mild central canal and left neural foraminal stenosis. Right renal T2 hyperintense lesion/cyst could be further evaluated with ultrasound. This document has been electronically signed by: Thao Ball MD on 08/19/2024 12:13:03 I have placed an order for a Renal US to evaluate the gonzales; lesions/cysts documented in this encounter Plan of Treatment Upcoming Encounters Date Type Department Care Team (Late st Contact Info) Description 09/11/2024 9:00 AM EST Office Visit [facility] [place] [address] Alexander Jones MD [facility] [place] [address] 09/18/2024 9:00 AM EST [address] [place], [place] [phone] Alexander Jones MD 230 [facility], [place] [phone] 10/29/2024 11:30 AM EDT Office [address] [place], [place] [phone] Vince Lockhart MD [address] [place] [address] [phone] documented as of this encounter Goals Goal [...] as of this encounter Care Teams Home Health Rn Relationship Specialty Start Date End Date Vince Lockhart MD [facility] [place] [phone] PCP - General Internal Medicine 04/10/14 [facility] [place] 12/29/23 documented as of this encounter
--- OUTSIDE RECORDS SUMMARY | 2024-09-06 15:01 | XMS_ITS | Encounter Summary ---
Author Organization [employer] Address 75 [facility] 7t [place] [address] Care Team Providers Care Hawk Missile System Crewmember Name Role Phone Vince Lockhart MD Primary Care Provide r Reason for Visit * Reason Comments Med Refill Encounter Details Date Type Department Care Team (Late st Contact Info) Description 02/19/2024 Refill [facility] MEDICINE 230 [place], [place] [phone] Vince Lockhart MD 230 [place], [place] [phone] Chronic midline low back pain without sciatica [...] Description 09/11/2024 9:00 AM EST Office Visit [address] [address] Alexander Jones MD [address] [place] [address] 09/18/2024 9:00 AM EST Office Visit [address] [address] Alexander Jones MD [address] [place] [address] 10/29/2024 11:30 AM EDT Office Visit [address] [address] Vince Lockhart MD [address] [place] [address] documented as of this encounter Goals Goal [...] documented as of this encounter Care Teams Hawk Missile System Crewmember Relationship Specialty Start Date End Date Vince Lockhart MD [address] [place] [phone] PCP - General Internal Medicine 04/10/14 [facility] 12/29/23 documented as of this encounter
--- OUTSIDE RECORDS SUMMARY | 2024-09-06 15:01 | XMS_ITS | Encounter Summary ---
Author Organization [employer] Address [address] [facility] 7t [place] [address] Care Team Providers Care Deputy Director Of Nursing Name Role Phone Vince Lockhart MD Primary Care Provide r Reason for Visit * Reason Comments Med Refill Encounter Details Date Type Department Care Team (Late st Contact Info) Description 08/24/2024 Refill [facility] MEDICINE 230 [place], [place] [phone] Vince Lockhart MD 230 [place], [place] [phone] Social History Tobacco Use Types Packs/Day Years [...] 09/11/2024 9:00 AM EST Office Visit [address] [address] Alexander Jones MD [address] [place] [address] 09/18/2024 9:00 AM EST Office Visit [address] [address] Alexander Jones MD [address] [place] [address] 10/29/2024 11:30 AM EDT Office Visit [address] [address] Vince Lockhart MD [address] [place] [address] documented as of this encounter Goals Goal [...] as of this encounter Care Teams Deputy Director Of Nursing Relationship Specialty Start Date End Date Vince Lockhart MD [address] [place] [phone] PCP - General Internal Medicine 04/10/14 [facility] 12/29/23 documented as of this encounter
--- OUTSIDE RECORDS SUMMARY | 2024-09-06 15:01 | XMS_ITS | Encounter Summary ---
Author Organization [employer] Address [address] [facility] 7t [place] [address] Care Team Providers Care Lining Parts Sewer Name Role Phone Vince Lockhart MD Primary Care Provide r Reason for Visit * Reason Onset Date Comments Durable Medical Equipment 08/23/2024 Encounter Details Date Type Department Care Team (Late st Contact Info) Description 08/23/2024 Telephone [facility] MEDICINE 230 [place], [place] [phone] Vince Lockhart MD 230 [place], [place] [phone] Durable Medical Equipment Social History Tobacco Use Types Packs/Day Years [...] Telephone Encounter - Michelle Shin RN - 09/06/2024 11:47 AM EST Faxed signed DME packet for nebulizer supplies to [facility] as below. Sent to [facility] * Telephone Encounter - Michelle Shin RN - 08/27/2024 4:20 PM EST Script generated and placed on PCP's desk. Pending signature. * Telephone Encounter - Janette Gillis - 08/23/2024 11:49 AM EST Tc from [facility] requesting tubing for up draft nebulizer L&C If any questions contact adriana at [phone] documented in this encounter Plan of Treatment Upcoming Encounters Date Type Department Care Team (Late st Contact Info) Description 09/11/2024 9:00 AM EST Office Visit [facility] [place] [address] Alexander Jones MD [facility] [place] [phone] 09/18/2024 9:00 AM EST Office [facility] [place] [address] Alexander Jones MD [facility] [place] [phone] 10/29/2024 11:30 AM EDT Office Visit [facility] [place] [phone] Vince Lockhart MD [facility] [place], [place] [phone] documented as of this encounter Goals Goal [...] documented as of this encounter Care Teams Lining Parts Sewer Relationship Specialty Start Date End Date Vince Lockhart MD [facility] [place], [place] [phone] PCP - General Internal Medicine 04/10/14 [facility] 12/29/23 documented as of this encounter
--- OUTSIDE RECORDS SUMMARY | 2024-09-06 15:01 | XMS_ITS | Encounter Summary ---
Author Organization [employer] Address [address] [facility] 7t [place] [address] Care Team Providers Care Assistant Plant Control Operator Name Role Phone Vince Lockhart MD Primary Care Provide r Reason for Visit * Reason Onset Date Comments PT-1 07/01/2024 Encounter Details Date Type Department Care Team ([facility] st Contact Info) Description 07/01/2024 Telephone [facility] MEDICINE 230 [place], [place] [phone] Vince Lockhart MD 230 [place], [place] [phone] PT-1 Social History Tobacco Use Types Packs/Day [...] Provider name or facility name: [facility] Address: [address] [place] [address] Escort needed: Y/N: No Do you have a wheelchair: Y/N: No If yes- Manual or electric: N/A Visits: 1 every 3 months documented in this encounter Plan of Treatment Upcoming Encounters Date Type Department Care Team (Late st Contact Info) Description 09/11/2024 9:00 AM EST Office Visit [facility] MEDICINE [address] [place] [address] Alexander Jones MD [address] [place] [address] 09/18/2024 9:00 AM EST Office Visit [facility] MEDICINE [address] [place] [address] [place] [address] 10/29/2024 11:30 AM EDT Office Visit [facility] MEDICINE [place] [phone] Vince Lockhart MD [address] [facility] [place] [address] documented as of this encounter Goals Goal [...] as of this encounter Care Teams Assistant Plant Control Operator Relationship Specialty Start Date End [place] [address] PCP - General Internal Medicine 04/10/14 [facility] 12/29/23 documented as of this encounter
--- OUTSIDE RECORDS SUMMARY | 2024-09-06 15:01 | XMS_ITS | Encounter Summary ---
Author Organization [employer] Address 75 [facility] 7t [place] [address] Care Team Providers Care Hand Packer Name Role Phone Vince Lockhart MD Primary Care Provide r Reason for Visit * Reason Comments Med Refill Encounter Details Date Type Department Care Team ([facility] st Contact Info) Description 06/26/2023 Refill [facility] MEDICINE 230 [place], [place] [phone] Vince Lockhart MD 230 [place], [place] [phone] Mixed hyperlipidemia Social History Tobacco Use Types [...] 9:00 AM EST Office Visit [facility] MEDICINE [address] [place] [address] Alexander Jones MD [address] [place] [address] 09/18/2024 9:00 AM EST Office Visit [address] [address] Alexander Jones MD [address] [place] [address] 10/29/2024 11:30 AM EDT Office Visit [address] [address] Vince Lockhart MD [address] [place] [address] documented as of this encounter Goals Goal [...] documented as of this encounter Care Teams Hand Packer Relationship Specialty Start Date End Date Vince Lockhart MD 230 [place] [address] PCP - General Internal Medicine 04/10/14 [facility] 12/29/23 documented as of this encounter
--- OUTSIDE RECORDS SUMMARY | 2024-09-06 15:01 | XMS_ITS | Encounter Summary ---
Author Organization [employer] Address 75 [facility] 7t [place] [address] Care Team Providers Care Import/Export Clerk Name Role Phone Vince Lockhart MD Primary Care Provide r Reason for Visit * Reason Comments Med Refill Encounter Details Date Type Department Care Team (Late st Contact Info) Description 03/18/2024 Refill [facility] [address] [place], [place] [phone] Yajaira Birmingham MD 230 [place] [address] Depressive disorder Social History Tobacco Use Types [...] AM EST Office Visit [facility] MEDICINE [address] [place] [address] Alexander Jones MD [address] [place] [address] 09/18/2024 9:00 AM EST Office Visit [address] [address] Alexander Jones MD [address] [place] [address] 10/29/2024 11:30 AM EDT Office Visit [address] [address] Vince Lockhart MD [address] [place] [address] documented as of this encounter Goals Goal [...] documented as of this encounter Care Teams Import/Export Clerk Relationship Specialty Start Date End Date Vince Lockhart MD 230 [place] [address] PCP - General Internal Medicine 04/10/14 [facility] 12/29/23 documented as of this encounter
--- OUTSIDE RECORDS SUMMARY | 2024-09-06 15:01 | XMS_ITS | Encounter Summary ---
Author Organization [employer] Address [address] [facility] 7t [place] [address] Care Team Providers Care Social Services Aide Name Role Phone Vince Lockhart MD Primary Care Provide r Reason for Visit * Reason Comments Med Refill Encounter Details Date Type Department Care Team (Late st Contact Info) Description 09/21/2023 Refill [facility] [address] [place], [place] [phone] Vince Lockhart MD [address] [place], [place] [phone] Hospital discharge follow-up Social History Tobacco Use [...] Description 09/11/2024 9:00 AM EST Office Visit [facility] [address] [place] [address] Alexander Jones MD [address] [place] [address] 09/18/2024 9:00 AM EST Office Visit [address] [address] Alexander Jones MD [address] [place] [address] 10/29/2024 11:30 AM EDT Office Visit [address] [address] Vince Lockhart MD [address] [place] [address] documented as of this encounter Goals Goal [...] documented as of this encounter Care Teams Social Services Aide Relationship Specialty Start Date End Date Vince Lockhart MD [address] [place] [address] PCP - General Internal Medicine 04/10/14 [facility] 12/29/23 documented as of this encounter
--- OUTSIDE RECORDS SUMMARY | 2024-09-06 15:01 | XMS_ITS | Encounter Summary ---
Author Organization [employer] Address [address] [facility] 7t [place] [address] Care Team Providers Care Software Business Analyst Name Role Phone Vince Lockhart MD Primary Care Provide r Reason for Visit * Reason Comments Med Refill Encounter Details Date Type Department Care Team (Late st Contact Info) Description 08/21/2024 Refill [facility] [address] [place], [place] [phone] Vince Lockhart MD 230 [place], [place] [phone] Social History Tobacco Use Types Packs/Day Years [...] Description 09/11/2024 9:00 AM EST Office Visit [address] [address] Alexander Jones MD [address] [place] [address] 09/18/2024 9:00 AM EST Office Visit [address] [address] Alexander Jonse MD [address] [place] [address] 10/29/2024 11:30 AM EDT Office Visit [address] [address] Vince Lockhart MD [address] [place] [address] documented as of this encounter Goals Goal [...] as of this encounter Care Teams Software Business Analyst Relationship Specialty Start Date End Date Vince Lockhart MD [address] [place] [address] PCP - General Internal Medicine 04/10/14 [facility] 12/29/23 documented as of this encounter
== END 2024-09-06 14:42 | disposition home or self-care (01) ==
LOC: HO.US 14:41
PROVIDERS: PCP Internal Medicine; Visit Provider Internal Medicine
DX: N28.9 Disorder of kidney and ureter, unspecified (principal)
CPT/HCPCS: 76775

== ENCOUNTER → 2024-09-06 14:43 | Outpatient (BNV) | payer MEDICAID, SELFPAY | PROVIDERS: PCP Internal Medicine; Visit Provider Radiology Diagnostic Radiology | DX: N28.1 Cyst of kidney, acquired (principal); N20.0 Calculus of kidney | CPT/HCPCS: 76775 ==

== ENCOUNTER 2024-11-21 11:14 | Outpatient (AMB) | payer MEDICAID, SELFPAY ==
--- NOTE | 2024-11-21 11:15 | MHC.OFFVIS ---
Vital Signs 11/21/24 11:22 Height 5 ft 4 in Weight 137 lb 4 oz BMI 23.6 BP 97/61 Blood Pressure Location Lt brachial Position Sitting Pulse 84 Pulse Source Pulse Oximeter Pulse Oximetry (%) 96 Oxygen Delivery Method Room Air Intake Visit Reasons: Chronic low back pain maggie 11/21 Intake Note: Pain today 9 Geological Specialist Required: Yes Geological Specialist Language: Physical Medicine Teacher Name: Monse Accompanied by: Self / Same As Patient Allergies ibuprofen Allergy (Intermediate, Verified 11/21/24 11:21) Stomach Upset penicillin V Allergy (Intermediate, Verified 11/21/24 11:21) rash HPI Comments Details: The patient is a 59-year-old male presenting with chronic back pain. The symptoms arose approximately five to six years ago, exacerbated by a recent incident two months ago involving physical strain from heavy lifting and moving houses. Pain is described as stabbing and shooting, with radiation extending to the legs and involving knee pain, aggravated by walking, bending, climbing stairs, lifting and previously by physical therapy. He completed lumbar MRI in August as noted below. Historical knee arthritis is present, contributing to the pain. Past interventions with common analgesics and physical therapy have proven ineffective, with the patient currently on Suboxone due to a past substance use disorder. - Onset: 5-6 years ago; recent exacerbation two months ago due to heavy lifting during relocation - Quality: Stabbing, shooting, aching, sharp, dull, sore, throbbing - Primary Location: Lower back - Radiation: Legs and knees - Exacerbating Factors: Physical therapy, certain movements (bending, squatting, walking, climbing stairs, cold weather) - Relieving Factors: Lying down - Interference: Physical therapy discontinued due to pain - Affect: Pain impacts every part of his body, causes frequent falls, and affects his functionality. - Analgesia: Currently uses Suboxone; previously utilized marijuana but no longer; ibuprofen and Tylenol are ineffective. - Adverse Effects: Physical therapy exacerbated pain. - Activities of Daily Living: Pain impairs physical function; reports frequent falls. - Aberrant Drug Related Behaviors: History of substance use disorder managed with Suboxone; ceased use of marijuana. [facility] Medical History Acute pain of right shoulder Chronic low back pain without sciatica Hepatitis C Cocaine abuse Opioid dependence Finger lesion Chronic anemia Migraine Routine medical exam Lung mass Suicidal ideation Polysubstance abuse Chronic back pain BPH (benign prostatic hyperplasia) Nicotine dependence Cannabis use disorder, moderate, dependence Cocaine use disorder Pulmonary nodules Emphysema of lung Anxiety Depression Asthma Surgical History Hx of cholecystectomy Social History Household Members: None Housing: Apartment Do you presently have visiting nurse or other home services: No Unable to assess alcohol history related to: Unknown Alcohol intake: current Alcohol intake frequency: former alcohol drinker Alcohol type: beer Patient Tobacco Use Status: Current everyday Tobacco user Tobacco use type: Cigarette Cigarettes Per Day: 2 Years Smoked: many years e-Cigarette/Vaping Use: Never Used Second Hand Smoke Exposure: No Substance Use Type: Crack/Cocaine and Marijuana Advance Directives Date on File: 01/18/23 service: No Current occupational status: unemployed Current occupation: right hand dominant Sexual orientation: Straight/Heterosexual Review of Systems Const Details: - Musculoskeletal: Reports frequent falls, stabbing, and shooting pain with radiation to legs. - Neurological: Reports frequent falls, denies bladder or bowel incontinence or saddle anesthesia. - Psychiatric: Reports consultation with a psychiatrist. - Allergies/Drug Use: History of marijuana use and polysubstance abuse, now ceased. Currently on Suboxone. All systems reviewed & are unremarkable except as noted in HPI and below Physical Exam Vital Signs: Last Vital Signs Pulse 84 11/21/24 11:22 BP 97/61 11/21/24 11:22 Pulse Ox 96 11/21/24 11:22 Oxygen Delivery Method Room Air 11/21/24 11:22 BMI result Body Mass Index 23.6 General: Appears afebrile. Alert and oriented. Mood and affect appropriate. Follows and participates in conversation appropriately. Respiratory effort is unlabored. No cough. Able to transition from sit to stand unassisted. Poor posture. Ambulates with bilaterally normal heel strike and toe off. General: Yes no CVA tenderness Back/Spine/Pelvis Other: Patient is able to walk and stand on heels and tip toes with semi-slow gait. No limping. Can flex forward to 65-70 degrees and extend to 5-10 degrees before experiencing lumbar moderate pain. Demonstrates 5/5 strength of quadriceps bilaterally as well as flexion/dorsiflexion of bilateral feet against resistance. 2+ pedal pulses bilaterally. Straight leg rise with dorsiflexion negative bilaterally. +2 patellar and achilles reflexes bilaterally. Facet loading test positive bilaterally. Tere sign positive bilaterally, David?s and Stinchfield tests are negative bilaterally. No groin pain with I/E hip rotations. Valsalva maneuver negative. Back: no CVA tenderness Cervical Spine: cervical ROM normal, cervical muscular tenderness, pain with cervical ROM and No Cervical spine tenderness Thoracic/Lumbar Spine: thoracic and lumbar spine normal to inspection, No Thoracic/lumbar spine scar(s), Lasegue's sign negative, straight leg raise negative bilaterally, kyphosis, pain with thoraco-lumbar ROM, paraspinal muscle tenderness, thoraco-lumbar ROM limited, No thoracic spinal tenderness and lumbar spinal tenderness at L4 and at L5 Pelvis: buttock tenderness bilaterally and no sciatic notch tenderness Sacroiliac joints: bilaterally tender to palpation Extrem General: Yes capillary refill normal, Yes no clubbing, cyanosis or edema and Yes no calf tenderness Right lower extremity: knee Details: normal to inspection, tenderness Location: of the medial joint line and of the lateral joint line and crepitus; no swelling, no ecchymosis, no deformity and no unusual warmth Left lower extremity: knee Details: normal to inspection, tenderness Location: of the patella and of the medial joint line and crepitus; no swelling, no ecchymosis, no deformity and no unusual warmth Results Reviewed Results Reviewed: MR lumbar spine without gadolinium 08/19/24 Comparison: None Findings: Normal alignment without acute fracture. No marrow infiltration.Multilevel disc dehydration. Conus terminates at L1 level. Unremarkable appearance of the visualized cord and conus medullaris. Right renal T2 hyperintense lesion/cyst could be further evaluated with ultrasound. L5/S1: Mild disc bulge and facet hypertrophy associated with mild bilateral neural foraminal stenosis. L4/L5: Short pedicles and facet /ligamentum flava hypertrophy associated with mild central canal and left neural foraminal stenosis. Otherwise no evidence of significant central canal, neural foraminal, or lateral recess stenosis. IMPRESSION: L5/S1: Mild disc bulge and facet hypertrophy associated with mild bilateral neural foraminal stenosis. L4/L5: Short pedicles and facet /ligamentum flava hypertrophy associated with mild central canal and left neural foraminal stenosis. Right renal T2 hyperintense lesion/cyst could be further evaluated with ultrasound. XR LUMBOSACRAL SPINE 05/01/23 CLINICAL INFORMATION: Midline low back pain without sciatica. Patient states 6 months of low back pain COMPARISON: June 30, 2017. TECHNIQUE: Three views of the lumbosacral spine. FINDINGS: Surgical clips right upper quadrant. Slight rightward curvature of the lumbar spine. Atherosclerotic aortic calcifications. Facet arthritis in the lower lumbar spine. Multilevel lumbar spondylosis with progression of advanced degenerative changes at L5-S1 and loss of disc space height. Degenerative changes in the bilateral sacroiliac joints with sclerosis. IMPRESSION: Multilevel lumbar spondylosis with progression of advanced degenerative changes at L5-S1 and loss of disc space height. XR KNEE, RIGHT 08/28/22 FINDINGS: No significant knee joint effusion. Bones are normal anatomic alignment with no acute fracture or dislocation seen. Incidental osteochondroma projecting off the posterior lateral distal femoral diaphysis. Mild degenerative changes in the knee joint with joint space loss more so in the medial compartment. IMPRESSION: Mild degenerative changes but no acute fracture or dislocation. Posterior lateral femoral osteochondroma noted. Assessment & Plan Assessment & Plan (1) Lumbosacral spondylosis: Code(s): M47.817 - Spondylosis without myelopathy or radiculopathy, lumbosacral region Category: Medical (2) Bilateral knee pain: Code(s): M25.561 - Pain in right knee; M25.562 - Pain in left knee Category: Medical (3) Primary osteoarthritis of knees, bilateral: Code(s): M17.0 - Bilateral primary osteoarthritis of knee Category: Medical (4) Lumbar degenerative disc disease: Code(s): M51.369 - Other intervertebral disc degeneration, lumbar region without mention of lumbar back pain or lower extremity pain Category: Medical Plan Patient's pain generators today consist with axial and discogenic low back pain and bilateral knee pain due to OA. We reviewed his recent lumbar MRI and previous lumbar and knee xrays. Patient is interested to undergo Bilateral Diagnostic L3-L4 DR L5 MBB with local and fluoroscopy for potential RFA procedure. Expectations, risks and benefits were reviewed. Patient is awareshe will be contacted to schedule this procedure. For chronic bilateral knee pain, we with proceed with bilateral knee intra-articular steroid injections with fluoroscopy. All questions and concerns have been answered and patient agreed with the plan. Follow up after injections and sooner as needed. Patient was informed and verbally consented to the use of an ambient scribe for clinic note documentation during this visit. Patient Instructions: I discussed the likely diagnosis, which predominately relates to arthritis and disc degeneration without significant nerve compression. We reviewed the options of cortisone injections and diagnostic injections, including the benefits of confirming arthritis as the pain source. For procedural interventions, I outlined the prospects of radiofrequency ablation for lumbar and knee arthritis pain and possible peripheral neural stimulation if suitable, explaining the advantages and post-treatment care. The patient was informed of potential outcomes and follow-ups, agreeing to proposed plans pending insurance consents and future efficacy evaluations. Coding Level of Care Code New Pt Level 4 (72088) Diagnoses Lumbosacral spondylosis M47.817 Bilateral knee pain M25.561; M25.562 Primary osteoarthritis of knees, bilateral M17.0 Lumbar degenerative disc disease M51.369
[2024-11-21 11:22] VITALS: BP 97/61; PULSE 84; O2SAT 96; BMI 23.6
--- OUTSIDE RECORDS SUMMARY | 2024-11-21 12:44 | XMS_ITS | Encounter Summary ---
Author Organization [employer] Address [address] [facility] 7t [place] [address] Care Team Providers Care Stencil Inspector Name Role Phone Vince Lockhart MD Primary Care Provide r Osiel Mendez PharmD Unavailable [phone] Reason for Visit * Reason Comments Med Refill Encounter Details Date Type Department Care Team ([facility] st Contact Info) Description 06/02/2023 Refill [facility] [address] [place], [place] [phone] Vince Lockhart MD [address] [place], [place] [phone] Depressive disorder Social History Tobacco Use Types [...] Care Team (Late st Contact Info) Description 11/27/2024 9:00 AM EDT Office Visit [facility] [address] [place] [address] Alexander Jones MD [address] [place] [address] 12/04/2024 9:00 AM EDT Office Visit [address] [address] Alexander Jones MD [address] [place] [address] 01/28/2025 10:00 AM EDT Office Visit [address] [address] Vince Lockhart MD [address] [place] [address] documented as of this encounter Goals Goal [...] as of this encounter Care Teams Stencil Inspector Relationship Specialty Start Date End Date Vince Lockhart MD [address] [place] [address] PCP - General Internal Medicine 04/10/14 Osiel Mendez PharmD [address] [place] [address] Pharmacist Internal Medicine 12/19/22 06/11/23 [facility] 12/29/23 documented as of this encounter
--- OUTSIDE RECORDS SUMMARY | 2024-11-21 12:44 | XMS_ITS | Encounter Summary ---
Author Organization [employer] Address [address] [facility] 7t [place] [address] Care Team Providers Care Touch Up Edger Name Role Phone Vince Lockhart MD Primary Care Provide r Osiel Mendez PharmD Unavailable [phone] Reason for Visit * Reason Comments Med Refill Encounter Details Date Type Department Care Team (Late st Contact Info) Description 03/07/2023 Refill [facility] 230 [place] [address] Vince Lockhart MD [address] [place] [address] Difficulty sleeping Social History Tobacco Use Types [...] Description 11/27/2024 9:00 AM EDT Office Visit [facility] [place] [address] Alexander Jonse MD [place] [phone] 12/04/2024 9:00 AM EDT Office Visit [facility] [place] [address] Alexander Jones MD [place] [phone] 01/28/2025 10:00 AM EDT Office Visit [facility] [place] [phone] Vince Lockhart MD [place] [phone] documented as of this encounter Goals Goal [...] documented as of this encounter Care Teams Touch Up Edger Relationship Specialty Start Date End Date [place] [address] PCP - General Internal Medicine 04/10/14 Osiel Mendez, [place] [address] Pharmacist Internal Medicine 12/19/22 06/11/23 [facility] 12/29/23 documented as of this encounter
--- OUTSIDE RECORDS SUMMARY | 2024-11-21 12:44 | XMS_ITS | Encounter Summary ---
Author Organization [employer] Address [address] [facility] 7t [place] [address] Care Team Providers Care Wastewater Operator Name Role Phone Vince Lockhart MD Primary Care Provide r Reason for Visit * Reason Comments Med Refill Encounter Details Date Type Department Care Team ([facility] st Contact Info) Description 11/27/2023 Refill [facility] 230 [place], [place] [phone] Vince Lockhart MD [address] [place], [place] [phone] Social History Tobacco Use Types Packs/Day Years [...] Description 11/27/2024 9:00 AM EDT Office Visit [address] [address] Alexander Jones MD [address] [place] [address] 12/04/2024 9:00 AM EDT Office Visit [address] [address] Alexander Jones MD [address] [place] [address] 01/28/2025 10:00 AM EDT Office Visit [address] [address] Vince Lockhart MD [address] [place] [address] documented as of this encounter Goals Goal [...] documented as of this encounter Care Teams Wastewater Operator Relationship Specialty Start Date End Date Vince Lockhart MD [address] [place] [address] PCP - General Internal Medicine 04/10/14 [facility] 12/29/23 documented as of this encounter
--- OUTSIDE RECORDS SUMMARY | 2024-11-21 12:44 | XMS_ITS | Encounter Summary ---
Author Organization [employer] Address [address] [facility] 7t [place] [address] Care Team Providers Care Reduction Plant Supervisor Name Role Phone Vince Lockhart MD Primary Care Provide r Reason for Visit * Reason Comments Med Refill Encounter Details Date Type Department Care Team ([facility] st Contact Info) Description 08/21/2024 Refill [facility] MEDICINE 230 [place], [place] [phone] Vince Lockhart MD [address] [place], [place] [phone] Social History Tobacco Use Types Packs/Day Years [...] Description 11/27/2024 9:00 AM EDT Office Visit [address] [address] Alexander Jones MD [address] [place] [address] 12/04/2024 9:00 AM EDT Office Visit [address] [address] Alexander Jones MD [address] [place] [address] 01/28/2025 10:00 AM EDT Office Visit [address] [address] Vince Lockhart MD [address] [place] [address] documented as of this encounter Goals Goal [...] documented as of this encounter Care Teams Reduction Plant Supervisor Relationship Specialty Start Date End Date Vince Lockhart MD [address] [place] [address] PCP - General Internal Medicine 04/10/14 [facility] 12/29/23 documented as of this encounter
--- OUTSIDE RECORDS SUMMARY | 2024-11-21 12:44 | XMS_ITS | Encounter Summary ---
Author Organization [employer] Address [address] [facility] 7t [place] [address] Care Team Providers Care Legal Secretary Name Role Phone Vince Lockhart MD Primary Care Provide r Osiel Mendez PharmD Unavailable [phone] Reason for Visit * Reason Onset Date Comments Med Refill 05/16/2023 Encounter Details Date Type Department Care Team ([facility] st Contact Info) Description 05/16/2023 Telephone [facility] 230 [place], [place] [phone] Vince Lockhart MD [address] [place], [place] [phone] Med Refill Social History Tobacco Use Types [...] - 05/16/2023 12:54 PM EDT Tc from [facility] requesting med refill on; clonazePAM (KlonoPIN) 0.5 MG tablet documented in this encounter Plan of Treatment Upcoming Encounters Date Type Department Care Team (Late st Contact Info) Description 11/27/2024 9:00 AM EDT Office Visit [facility] [address] [place] [address] Alexander Jones MD [address] [place] [address] 12/04/2024 9:00 AM EDT Office Visit [facility] [address] [place] [address] Alexander Jones MD [address] [place] [address] 01/28/2025 10:00 AM EDT Office Visit [address] [address] Vince Lockhart MD [address] [place] [address] documented as of this encounter Goals Goal [...] as of this encounter Care Teams Legal Secretary Relationship Specialty Start Date End Date Vince Lockhart MD [address] [place] [address] PCP - General Internal Medicine 04/10/14 Osiel Mendez, Castro [address] [place] [address] Pharmacist Internal Medicine 12/19/22 06/11/23 [facility] 12/29/23 documented as of this encounter
--- OUTSIDE RECORDS SUMMARY | 2024-11-21 12:44 | XMS_ITS | Encounter Summary ---
Author Organization [employer] Address 75 [facility] 7t [place] [address] Care Team Providers Care Rough Rounder Machine Name Role Phone Vince Lockhart MD Primary Care Provide r Reason for Visit * Reason Onset Date Comments PT-1 08/28/2024 Encounter Details Date Type Department Care Team ([facility] st Contact Info) Description 08/28/2024 Telephone [facility] 230 [place], [place] [phone] Vince Lockhart MD [address] [place], [place] [phone] PT-1 Social History Tobacco Use Types Packs/Day [...] Y/N: Yes Provider name or facility name: [facility] Facility Address: [address] [place] [address] Escort needed: Y/N: No Do you have a wheelchair: Y/N: No If yes- Manual or electric: N/A Visits: Once a week documented in this encounter Plan of Treatment Upcoming Encounters Date Type Department Care Team (Late st Contact Info) Description 11/27/2024 9:00 AM EDT Office Visit [facility] [address] [place] [address] Alexander Jones MD [address] [place] [address] 12/04/2024 9:00 AM EDT Office Visit [facility] [address] [place] [address] Alexander Jones MD [address] [place] [address] 01/28/2025 10:00 AM EDT Office Visit [facility] [address] [place] [address] Vince Lockhart MD [address] [facility] [place] [address] documented as of this encounter Goals Goal [...] documented as of this encounter Care Teams Rough Rounder Machine Relationship Specialty Start Date End Date Vince Lockhart MD [place] [facility] [place] [address] PCP - General Internal Medicine 04/10/14 [facility] [place] 12/29/23 documented as of this encounter
--- OUTSIDE RECORDS SUMMARY | 2024-11-21 12:44 | XMS_ITS | Encounter Summary ---
Author Organization [employer] Address 75 [facility] 7t [place] [address] Care Team Providers Care Optical Worker Name Role Phone Vince Lockhart MD Primary Care Provide r Osiel Mendez PharmD Unavailable [phone] Reason for Visit * Reason Comments Med Refill Encounter Details Date Type Department Care Team (Late st Contact Info) Description 03/03/2023 Refill [facility] [address] [place] [address] Vince Lockhart MD 230 [place], [place] [phone] Depressive disorder; Difficulty sleeping Social History Tobacco [...] Description 11/27/2024 9:00 AM EDT Office Visit [facility] [address] [place] [address] Alexander Jones MD [place] [phone] 12/04/2024 9:00 AM EDT Office Visit [facility] [place] [address] Alexander Jones MD [place] [phone] 01/28/2025 10:00 AM EDT Office Visit [facility] [place] [phone] [place] [address] documented as of this encounter Goals Goal [...] documented as of this encounter Care Teams Optical Worker Relationship Specialty Start Date End [place] [address] PCP - General Internal Medicine 04/10/14 [place] [address] Pharmacist Internal Medicine 12/19/22 06/11/23 [facility] 12/29/23 documented as of this encounter
--- OUTSIDE RECORDS SUMMARY | 2024-11-21 12:44 | XMS_ITS | Encounter Summary ---
Author Organization [employer] Address 75 [facility] 7t [place] [address] Care Team Providers Care Finisher Denture Name Role Phone Vince Lockhart MD Primary Care Provide r Osiel Mendez PharmD Unavailable [phone] Reason for Visit * Reason Onset Date Comments PT1 05/03/2023 Encounter Details Date Type Department Care Team ([facility] st Contact Info) Description 05/03/[address] [facility] MEDICINE 230 [place], [place] [phone] Vince Lockhart MD 230 [place], [place] [phone] PT1 Social History Tobacco Use Types Packs/Day [...] requesting a PT1 for Pt. Please contact adriana if PT1 has been approved or denied Date: 05/08 Time: 11:30 am Visits: n/a Address: [address] [place] [address] [facility] Wheel Chair: no Bankruptcy Law Specialist Needed: no supervisor poultry farm location confirmed: [address] [place] [address] documented in this encounter Plan of Treatment Upcoming Encounters Date Type Department Care Team (Late st Contact Info) Description 11/27/2024 9:00 AM EDT Office Visit [facility] MEDICINE [address] [place] [address] Alexander Jones MD 230 [place] [address] 12/04/2024 9:00 AM EDT Office Visit [facility] [place] [address] [place] [address] 01/28/2025 10:00 AM EDT Office Visit [facility] [place] [address] Vince Lockhart MD [facility] [place] [address] documented as of this encounter Goals Goal [...] documented as of this encounter Care Teams Finisher Denture Relationship Specialty Start Date End Date [place] [address] PCP - General Internal Medicine 04/10/14 Osiel Mendez PharmD [facility] [place] [address] Pharmacist Internal Medicine 12/19/22 06/11/23 [facility] 12/29/23 documented as of this encounter
--- OUTSIDE RECORDS SUMMARY | 2024-11-21 12:44 | XMS_ITS | Encounter Summary ---
Author Organization [employer] Address 75 [facility] 7t [place] [address] Care Team Providers Care Senior Teller Name Role Phone Vince Lockhart MD Primary Care Provide r Reason for Visit * Reason Onset Date Comments Error 10/20/2023 Encounter Details Date Type Department Care Team ([facility] st Contact Info) Description 10/20/2023 Telephone [facility] MEDICINE 230 [place], [place] [phone] Vince Lockhart MD 230 [place], [place] [phone] Error Social History Tobacco Use Types Packs/Day [...] Description 11/27/2024 9:00 AM EDT Office Visit [facility] MEDICINE [address] [place] [address] Alexander Jones MD [address] [place] [address] 12/04/2024 9:00 AM EDT Office Visit [address] [address] Alexander Jones MD [address] [place] [address] 01/28/2025 10:00 AM EDT Office Visit [address] [address] Vince Lockhart MD [address] [place] [address] documented as of this encounter Goals Goal [...] as of this encounter Care Teams Senior Teller Relationship Specialty Start Date End Date Vince Lockhart MD [address] [place] [address] PCP - General Internal Medicine 04/10/14 [facility] 12/29/23 documented as of this encounter
--- OUTSIDE RECORDS SUMMARY | 2024-11-21 12:44 | XMS_ITS | Encounter Summary ---
Author Organization [employer] Address 75 [facility] 7t [place] [address] Care Team Providers Care Department Administrator Name Role Phone Vince Lockhart MD Primary Care Provide r Osiel Mendez PharmD Unavailable [phone] Reason for Visit * Reason Onset Date Comments Medication Question 03/21/2023 Encounter Details Date Type Department Care Team ([facility] st Contact Info) Description 03/21/2023 Telephone [facility] MEDICINE 230 [place], [place] [phone] Vince Lockhart MD 230 [place], [place] [phone] Medication Question Social History Tobacco Use Types [...] PM EDT Telephone call placed to Adriana ([facility]). Explained that we are not prescribing [...] 12:46 PM EDT Tc from Adriana at [facility] calling in regards to message above. States pt is planning on going to hospital due to lack of pain control. Please contact adriana at [phone] * Telephone Encounter - Chioma Frank - 03/21/2023 12:28 PM EDT Tc from Adriana at [facility] requesting a call back, in regards to medication tramadol 50 mg. documented in this encounter Plan of Treatment Upcoming Encounters Date Type Department Care Team (Late st Contact Info) Description 11/27/2024 9:00 AM EDT Office Visit [facility] MEDICINE [address] [place] [address] Alexander Jones MD 230 [place], [place] [phone] 12/04/2024 9:00 AM EDT Office Visit [facility] [place] [address] [place] [address] 01/28/2025 10:00 AM EDT Office Visit [facility] [place] [address] Vicne Lockhart MD [facility] [place] [address] documented as of this encounter Goals Goal [...] documented as of this encounter Care Teams Department Administrator Relationship Specialty Start Date End Date Vince Lockhart [place] [address] PCP - General Internal Medicine 04/10/14 Osiel Mendez PharmD [facility] [place] [address] Pharmacist Internal Medicine 12/19/22 06/11/23 [facility] 12/29/23 documented as of this encounter
--- OUTSIDE RECORDS SUMMARY | 2024-11-21 12:44 | XMS_ITS | Encounter Summary ---
Author Organization [employer] Address 75 [facility] [address] 7t [place] [address] Care Team Providers Care Discotheque Dancer Name Role Phone Vince Lockhart MD Primary Care Provide r Encounter Details Date Type Department Care Team ([facility] st Contact Info) Description 06/19/2023 Telephone [facility] MEDICINE 230 [place], [place] [phone] Vince Lockhart MD 230 [place], [place] [phone] Social History Tobacco Use Types Packs/Day Years [...] Description 11/27/2024 9:00 AM EDT Office Visit [facility] MEDICINE [address] [place] [address] Alexander Jones MD [address] [place] [address] 12/04/2024 9:00 AM EDT Office Visit [address] [address] Alexander Jones MD [address] [place] [address] 01/28/2025 10:00 AM EDT Office Visit [address] [address] Vince Lockhart MD [address] [place] [address] documented as of this encounter Goals Goal [...] documented as of this encounter Care Teams Discotheque Dancer Relationship Specialty Start Date End Date Vince Lockhart MD 230 [place] [address] PCP - General Internal Medicine 04/10/14 [facility] 12/29/23 documented as of this encounter
--- OUTSIDE RECORDS SUMMARY | 2024-11-21 12:44 | XMS_ITS | Encounter Summary ---
Author Organization [employer] Address 75 [facility] 7t [place] [address] Care Team Providers Care Plugman Name Role Phone Vince Lockhart MD Primary Care Provide r Osiel Mendez PharmD Unavailable [phone] Reason for Visit * Reason Onset Date Comments Nurse Triage 03/21/2023 Encounter Details Date Type Department Care Team (Late st Contact Info) Description 03/21/2023 Telephone [facility] MEDICINE 230 [place], [place] [phone] Vince Lockhart MD 230 [place], [place] [phone] Nurse Triage Social History Tobacco Use Types [...] 03/28/23. I do not see Ultram in [facility] med list but there is an older script in [facility] for Tramadol from 2013. I see pt. [...] Pain Medicines * Telephone Encounter - Chioma Zac - 03/21/2023 12:25 PM EDT Tc from [facility] Symptom: Back Pain - Not From Injury Outcome: Schedule an appointment to be seen within 3 days Reason: Caller denied all higher acuity questions The caller accepted this outcome Please call [phone] documented in this encounter Plan of Treatment Upcoming Encounters Date Type Department Care Team (Late st Contact Info) Description 11/27/2024 9:00 AM EDT Office Visit [facility] MEDICINE [address] [place] [address] Alexander Jones MD [address] [place] [address] 12/04/2024 9:00 AM EDT Office Visit [address] [address] Alexander Jones MD [address] [place] [address] 01/28/2025 10:00 AM EDT Office Visit [address] [address] Vince Lockhart MD [address] [place] [address] documented as of this encounter Goals Goal [...] documented as of this encounter Care Teams Plugman Relationship Specialty Start Date End Date Vince Lockhart MD [address] [place] [address] [phone] PCP - General Internal Medicine 04/10/14 Osiel Mendez PharmD [address] [place] [address] Pharmacist Internal Medicine 12/19/22 06/11/23 [facility] 12/29/23 documented as of this encounter
--- OUTSIDE RECORDS SUMMARY | 2024-11-21 12:44 | XMS_ITS | Encounter Summary ---
Author Organization [employer] Address 75 [facility] 7t [place] [address] Care Team Providers Care Waxed Bag Machine Operator Name Role Phone Vince Lockhart MD Primary Care Provide r Osiel Mendez PharmD Unavailable [phone] Reason for Visit * Reason Comments Med Refill Encounter Details Date Type Department Care Team (Late st Contact Info) Description 03/14/2023 Refill [facility] MEDICINE 230 [place] [address] Vince Lockhart MD 230 [place] [address] Pulmonary emphysema, unspecified emphysema type (CMS/HCC) Social [...] Description 11/27/2024 9:00 AM EDT Office Visit [facility] [place] [address] [place] [address] 12/04/2024 9:00 AM EDT Office Visit [facility] [place] [address] [place] [address] 01/28/2025 10:00 AM EDT Office Visit [facility] [place] [phone] [place] [address] documented as of this encounter Goals Goal [...] documented as of this encounter Care Teams Waxed Bag Machine Operator Relationship Specialty Start Date End [place] [address] PCP - General Internal Medicine 04/10/14 Osiel Mendez, [place] [address] Pharmacist Internal Medicine 12/19/22 06/11/23 [facility] 12/29/23 documented as of this encounter
--- OUTSIDE RECORDS SUMMARY | 2024-11-21 12:44 | XMS_ITS | Encounter Summary ---
Author Organization [employer] Address 75 [facility] 7t [place] [address] Care Team Providers Care Orthopedic Rn Name Role Phone Vince Lockhart MD Primary Care Provide r Reason for Visit * Reason Comments Med Refill Encounter Details Date Type Department Care Team ([facility] st Contact Info) Description 09/21/2023 Refill [facility] MEDICINE 230 [place], [place] [phone] Vince Lockhart MD 230 [place], [place] [phone] Hospital discharge follow-up Social History Tobacco Use [...] Description 11/27/2024 9:00 AM EDT Office Visit [facility] MEDICINE [address] [place] [address] Alexander Jones MD [address] [place] [address] 12/04/2024 9:00 AM EDT Office Visit [address] [address] Alexander Jones MD [address] [place] [address] 01/28/2025 10:00 AM EDT Office Visit [address] [address] Vince Lockhart MD [address] [place] [address] documented as of this encounter Goals Goal [...] documented as of this encounter Care Teams Orthopedic Rn Relationship Specialty Start Date End Date Vince Lockhart MD 230 [place] [address] PCP - General Internal Medicine 04/10/14 [facility] 12/29/23 documented as of this encounter
--- OUTSIDE RECORDS SUMMARY | 2024-11-21 12:45 | XMS_ITS | Encounter Summary ---
Author Organization [employer] Address 75 [facility] 7t [place] [address] Care Team Providers Care Color Maker Dyer Name Role Phone Vince Lockhart MD Primary Care Provide r Reason for Visit * Reason Comments Med Refill Encounter Details Date Type Department Care Team ([facility] st Contact Info) Description 06/26/2023 Refill [facility] MEDICINE 230 [place], [place] [phone] Vince Lockhart MD 230 [place], [place] [phone] Mixed hyperlipidemia Social History Tobacco Use Types [...] Description 11/27/2024 9:00 AM EDT Office Visit [facility] MEDICINE [address] [place] [address] Alexander Jones MD [address] [place] [address] 12/04/2024 9:00 AM EDT Office Visit [address] [address] Alexander Jones MD [address] [place] [address] 01/28/2025 10:00 AM EDT Office Visit [address] [address] Vince Lockhart MD [address] [place] [address] documented as of this encounter Goals Goal [...] documented as of this encounter Care Teams Color Maker Dyer Relationship Specialty Start Date End Date Vince Lockhart MD [address] [place] [address] PCP - General Internal Medicine 04/10/14 [facility] 12/29/23 documented as of this encounter
--- OUTSIDE RECORDS SUMMARY | 2024-11-21 12:45 | XMS_ITS | Encounter Summary ---
Author Organization [employer] Address [address] [facility] [address] 7t [place] [address] Care Team Providers Care Yard Spotter Name Role Phone Vince Lockhart MD Primary Care Provide r Reason for Visit * Reason Comments Med Refill Encounter Details Date Type Department Care Team ([facility] st Contact Info) Description 03/18/2024 Refill [facility] [address] [place], [place] [phone] Yajaira Birmingham MD 230 [place] [address] Depressive disorder Social History Tobacco Use Types [...] Description 11/27/2024 9:00 AM EDT Office Visit [address] [address] Alexander Jones MD [address] [place] [address] 12/04/2024 9:00 AM EDT Office Visit [address] [address] Alexander Jones MD [address] [place] [address] 01/28/2025 10:00 AM EDT Office Visit [address] [address] Vince Lockhart MD [address] [place] [address] documented as of this encounter Goals Goal [...] documented as of this encounter Care Teams Yard Spotter Relationship Specialty Start Date End Date Vince Lockhart MD [address] [place] [address] PCP - General Internal Medicine 04/10/14 [facility] 12/29/23 documented as of this encounter
--- OUTSIDE RECORDS SUMMARY | 2024-11-21 12:45 | XMS_ITS | Encounter Summary ---
Author Organization [employer] Address 75 [facility] 7t [place] [address] Care Team Providers Care Line Server Name Role Phone Vince Lockhart MD Primary Care Provide r Reason for Visit * Reason Onset Date Comments PT1 04/10/2024 Encounter Details Date Type Department Care Team ([facility] st Contact Info) Description 04/10/2024 Telephone [facility] MEDICINE 230 [place], [place] [phone] Vince Lockhart MD 230 [place], [place] [phone] PT1 Social History Tobacco Use Types Packs/Day [...] 3:59 PM EDT Tc from Sheila with [facility] requesting PT1 Patient calling requesting PT1 Home Address verified: Y/N: Yes Provider name or facility name: [facility] Facility Address: [address] [place] [address] Escort needed: Y/N: No Do you have a wheelchair: Y/N: No If yes- Manual or electric: n/a Visits: 3 x month documented in this encounter Plan of Treatment Upcoming Encounters Date Type Department Care Team (Late st Contact Info) Description 11/27/2024 9:00 AM EDT Office Visit [facility] MEDICINE [address] [place] [address] Alexander Jones MD [address] [place] [address] 12/04/2024 9:00 AM EDT Office Visit [facility] MEDICINE [address] [place] [address] Alexander Jones MD [address] [place] [address] 01/28/2025 10:00 AM EDT Office Visit [facility] MEDICINE 230 [place] [address] Vince Lockhart MD 230 [place] [address] documented as of this encounter Goals Goal [...] documented as of this encounter Care Teams Line Server Relationship Specialty Start Date End Date Vince Lockhart MD [address] [place] [address] PCP - General Internal Medicine 04/10/14 [facility] 12/29/23 documented as of this encounter
--- OUTSIDE RECORDS SUMMARY | 2024-11-21 12:45 | XMS_ITS | Encounter Summary ---
Author Organization [employer] Address 75 [facility] 7t [place] [address] Care Team Providers Care Door Clamper Name Role Phone Vince Lockhart MD Primary Care Provide r Reason for Visit * Reason Comments Med Refill Encounter Details Date Type Department Care Team ([facility] st Contact Info) Description 04/10/2024 Refill [facility] MEDICINE 230 [place], [place] [phone] Felicia Hdz, ANP 230 [place] [address] Social History Tobacco Use Types Packs/Day Years [...] Description 11/27/2024 9:00 AM EDT Office Visit [address] [address] Alexander Jones MD [address] [place] [address] 12/04/2024 9:00 AM EDT Office Visit [address] [address] Alexander Jones MD [address] [place] [address] 01/28/2025 10:00 AM EDT Office Visit [address] [address] Vince Lockhart MD [address] [place] [address] documented as of this encounter Goals Goal [...] documented as of this encounter Care Teams Door Clamper Relationship Specialty Start Date End Date Vince Lockhart MD 230 [place] [address] PCP - General Internal Medicine 04/10/14 [facility] 12/29/23 documented as of this encounter
--- OUTSIDE RECORDS SUMMARY | 2024-11-21 12:45 | XMS_ITS | Encounter Summary ---
Author Organization [employer] Address 75 [facility] 7t [place] [address] Care Team Providers Care Nutrition Teacher Name Role Phone Vince Lockhart MD Primary Care Provide r Reason for Visit * Reason Comments Med Refill Encounter Details Date Type Department Care Team ([facility] st Contact Info) Description 02/19/2024 Refill [facility] MEDICINE 230 [place], [place] [phone] Vince Lockhart MD 230 [place], [place] [phone] Chronic midline low back pain without sciatica [...] Description 11/27/2024 9:00 AM EDT Office Visit [facility] MEDICINE [address] [place] [address] Alexander Jones MD [address] [place] [address] 12/04/2024 9:00 AM EDT Office Visit [address] [address] Alexander Jones MD [address] [place] [address] 01/28/2025 10:00 AM EDT Office Visit [address] [address] Vince Lockhart MD [address] [place] [address] documented as of this encounter Goals Goal [...] documented as of this encounter Care Teams Nutrition Teacher Relationship Specialty Start Date End Date Vince Lockhart MD 230 [place] [address] PCP - General Internal Medicine 04/10/14 [facility] 12/29/23 documented as of this encounter
--- OUTSIDE RECORDS SUMMARY | 2024-11-21 12:45 | XMS_ITS | Encounter Summary ---
Author Organization [employer] Address 75 [facility] 7t [place] [address] Care Team Providers Care Jig Hand Name Role Phone Vince Lockhart MD Primary Care Provide r Reason for Visit * Reason Onset Date Comments Med Refill 09/30/2024 Encounter Details Date Type Department Care Team (Late st Contact Info) Description 09/30/2024 Refill [facility] MEDICINE 230 [place] [address] Georgina Ann, RN Uncomplicated opioid dependence (CMS/HCC) Social History Tobacco [...] Description 11/27/2024 9:00 AM EDT Office Visit [address] [address] Alexander Jones MD [address] [place] [address] 12/04/2024 9:00 AM EDT Office Visit [address] [address] Alexander Jones MD [address] [place] [address] 01/28/2025 10:00 AM EDT Office Visit [address] [address] Vince Lockhart MD [address] [place] [address] documented as of this encounter Goals Goal Patient Goal Type Associated Problems Recent Progress Patient-Stated? Author Patient will adhere to medication regimen General On track( 025 3:09 PM EST) Osiel Vargas, MayteD Note: Difficulty with taking medications daily due to no desire Increase coping skills to promote long-term recovery and improve ability to perform daily activities General On track( 025 5:09 PM EDT) Georgina Cameron RN documented as of this encounter Visit Diagnoses Diagnosis Uncomplicated opioid dependence (CMS/HCC) documented in this encounter Additional Health Concerns Assessment Noted Time PHQ-9 Depression Total Score: 4 07/02/20 24 10:58 AM EST documented as of this encounter Care Teams Jig Hand Relationship Specialty Start Date End Date Vince Lockhart MD 230 [place] [address] PCP - General Internal Medicine 04/10/14 [facility] 12/29/23 documented as of this encounter
--- OUTSIDE RECORDS SUMMARY | 2024-11-21 12:45 | XMS_ITS | Encounter Summary ---
Author Organization [employer] Address [address] [facility] 7t [place] [address] Care Team Providers Care Glass Technician/Installer Name Role Phone Vince Lockhart MD Primary Care Provide r Reason for Visit * Reason Onset Date Comments PT-1 07/01/2024 Encounter Details Date Type Department Care Team ([facility] st Contact Info) Description 07/01/2024 Telephone [facility] MEDICINE [address] [place], [place] [phone] Vince Lockhart MD [address] [place], [place] [phone] PT-1 Social History Tobacco Use Types Packs/Day [...] Y/N: Yes Provider name or facility name: [facility] Address: [address] [place] [address] Escort needed: Y/N: No Do you have a wheelchair: Y/N: No If yes- Manual or electric: N/A Visits: 1 every 3 months documented in this encounter Plan of Treatment Upcoming Encounters Date Type Department Care Team ([facility] st Contact Info) Description 11/27/2024 9:00 AM EDT Office Visit [facility] MEDICINE [address] [place] [address] Alexander Jones MD [address] [place] [address] 12/04/2024 9:00 AM EDT Office Visit [facility] MEDICINE [address] [place] [address] Alexander Jones MD [address] [place] [address] 01/28/2025 10:00 AM EDT Office Visit [facility] MEDICINE [address] [place] [address] Vince Lockhart MD [address] [place] [address] documented as of this encounter Goals Goal [...] documented as of this encounter Care Teams Glass Technician/Installer Relationship Specialty Start Date End Date [place] [address] PCP - General Internal Medicine 04/10/14 [facility] 12/29/23 documented as of this encounter
--- OUTSIDE RECORDS SUMMARY | 2024-11-21 12:45 | XMS_ITS | Encounter Summary ---
Author Organization [employer] Address [address] [facility] 7t [place] [address] Care Team Providers Care Facility Planner Name Role Phone Vince Lockhart MD Primary Care Provide r Reason for Visit * Reason Onset Date Comments Durable Medical Equipment 11/18/2024 Encounter Details Date Type Department Care Team ([facility] st Contact Info) Description 11/18/2024 Telephone [facility] MEDICINE [address] [place], [place] [phone] Vince Lockhart MD [address] [place], [place] [phone] Durable Medical Equipment Social History Tobacco Use Types Packs/Day Years Used Date Smoking Tobacco: Some Days Cigarettes Passive Smoke Exposure: Current Smokeless Tobacco: [...] housing situation today? I have mehul gentile 10/29/[address] you li ve. Do you have problems with any of the following? None of the above 10/29/2024 Food Insecurity Answer Date Recorded Within the past 12 months, y ou worried that your food would run out before you got money to buy more: Never True 10/15/2024 Within the past 12 months,th e food you bought just didn't last and you didn't have enough money to get more: Never True 07/2024 Transportation Answer Date Recorded In the past 12 months, has l ack of transportation kept you from medical appts, meetings, work or from getting things needed for daily living? No 10/15/2024 Utilities Answer Date Recorded In the past 12 months, has t he electric, gas, oil or water company threatened to shut off services in your home? No 10/15/2024 Depression Answer Date Recorded Patient Health Questionnaire-2 Score 1 07/02/2024 Internet Access Answer Date Recorded Internet Access Q1 No 10/29/2024 Internet Access Q2 Internet/Wi-Fi access is not available where I live 10/29/2024 Sex and Gender Information Value Date Recorded Sex Assigned at Male 05/16/2022 10:14 AM EDT Legal Sex Male 10:14 AM EDT Gender Identity Male 05/16/2022 10:14 AM EDT Sexual Orientation Choose not to disclose 2021 10:14 AM EDT documented as of this encounter Miscellaneous Notes * Telephone Encounter - Tasneem Madden RN - 11/18/2024 3:58 PM EDT Telephone call to pt with MIMA Mcdonald for Dr Mendoza. Informed pt that due to weight gain, insurance will not cover Boost. Advised him to monitor weight and if he starts to lose weight again, to call [facility], and that PCP will recheck weight in January. Pt verbalized understanding, no further questions. * Telephone Encounter - Jeannette Naranjo - 11/18/2024 9:58 AM EDT medical necessity form for recertification of Boost received from [facility] . If agree with continuation of boost TID, please provide new dx and addend office visit note to support the need given pt weight gain of 25 lbs since last recert. Thank you documented in this encounter Plan of Treatment Upcoming Encounters Date Type Department Care Team (Late st Contact Info) Description 11/27/2024 9:00 AM EDT Office Visit [facility] MEDICINE [address] [place] [address] Alexander Jones MD [place] [phone] 12/04/2024 9:00 AM EDT Office Visit [facility] [place] [phone] Alexander Jones MD [address] [place] [phone] 01/28/2025 10:00 AM EDT Office Visit [facility] [place] [phone] Vince Lockhart MD [place] [phone] documented as of this encounter Goals Goal [...] On track( 025 5:09 PM EDT) Georgina Cameron, RN documented as of this encounter Visit Diagnoses Not on filedocumented in this encounter Additional Health Concerns Assessment Noted Time PHQ-9 Depression Total Score: 4 07/02/20 10:58 AM EST documented as of this encounter Care Teams Facility Planner Relationship Specialty Start Date End Date Vince Lockhart [facility] [place] [phone] PCP - General Internal Medicine 04/10/14 [facility] 12/29/23 documented as of this encounter
--- OUTSIDE RECORDS SUMMARY | 2024-11-21 12:45 | XMS_ITS | Encounter Summary ---
Author Organization [employer] Address 75 [facility] 7t [place] [address] Care Team Providers Care Measurement Supervisor Name Role Phone Vince Lockhart MD Primary Care Provide r Reason for Visit * Reason Onset Date Comments Nurse Triage 02/28/2024 Encounter Details Date Type Department Care Team ([facility] st Contact Info) Description 02/28/2024 Telephone [facility] MEDICINE [address] [place], [place] [phone] Vince Lockhart MD 230 [place], [place] [phone] Nurse Triage Social History Tobacco Use Types [...] 02/28/2024 1:18 PM EDT Triage call with [place] Planner ID [id number]. Pt reports headache and some dizziness for [...] call. Pt is advised to come to [facility] today and Pt asks if [...] pain medicine * Telephone Encounter - Ora Camacho Tom - 02/28/2024 11:15 AM EDT Symptoms: Headache, Dizziness Outcome: Schedule an urgent appointment (within 4 hours) or talk to a nurse or provider soon Reason: Getting worse The caller accepted this outcome documented in this encounter Plan of Treatment Upcoming Encounters Date Type Department Care Team (Late st Contact Info) Description 11/27/2024 9:00 AM EDT Office Visit [address] [address] Alexander Jones MD [address] [place] [address] 12/04/2024 9:00 AM EDT Office Visit [address] [address] Alexander Jones MD [address] [place] [address] 01/28/2025 10:00 AM EDT Office Visit [address] [address] Vince Lockhart MD [address] [place] [address] documented as of this encounter Goals Goal [...] documented as of this encounter Care Teams Measurement Supervisor Relationship Specialty Start Date End Date Vince Lockhart MD [address] [place] [address], [place] [address] PCP - General Internal Medicine 04/10/14 [facility] 12/29/23 documented as of this encounter
--- OUTSIDE RECORDS SUMMARY | 2024-11-21 12:45 | XMS_ITS | Encounter Summary ---
Author Organization [employer] Address 75 [facility] 7t [place] [address] Care Team Providers Care Plate Cutter Name Role Phone Vince Lockhart MD Primary Care Provide r Osiel Mendez PharmD Unavailable [phone] Encounter Details Date Type Department Care Team ([facility] Contact Info) Description 11/24/2022 Abstract [facility] MEDICINE [address] [place] [address] Vince Lockhart MD [address] [place] [address] Social History Tobacco Use Types Packs/Day Years [...] Description 11/27/2024 9:00 AM EDT Office Visit [facility] MEDICINE [address] [place] [address] [phone] Alexander Jones MD 230 [place] [address] 12/04/2024 9:00 AM EDT Office Visit [facility] [place] [address] [place] [address] 01/28/2025 10:00 AM EDT Office Visit [facility] [place] [address] Vince Lockhart MD [place] [phone] documented as of this encounter Procedures Procedure Name Priority Date/Time Associated Diagnosis Comments COLONOSCOPY Routine 01/08/2018 documented in this encounter Results * Colonoscopy (01/08/2018) Colonoscopy Normal Normal 01/08/2018 Narrative Yulisa Cochran - 01/08/2018 9:39 AM EDT Recommended 10 year follow up ( per provider notes) Historical Provider [facility] Edited Result - Final documented in this encounter Visit Diagnoses Not on filedocumented in this encounter Care Teams Plate Cutter Relationship Specialty Start Date End Date Vince Lockhart MD [place], [place] [phone] PCP - General Internal Medicine 04/10/14 Osiel Mendez PharmD [place] [phone] Pharmacist Internal Medicine 12/19/22 06/11/23 [facility] 12/29/23 documented as of this encounter
--- OUTSIDE RECORDS SUMMARY | 2024-11-21 12:45 | XMS_ITS | Encounter Summary ---
Author Organization [employer] Address 75 [facility] 7t [place] [address] Care Team Providers Care Chute Operator Name Role Phone Vince Lockhart MD Primary Care Provide r Reason for Visit * Reason Onset Date Comments Med Refill 11/18/2024 Encounter Details Date Type Department Care Team (Late st Contact Info) Description 11/18/[address] [facility] MEDICINE 230 [place] [address] Georgina Ann, RN Uncomplicated opioid dependence (CMS/HCC) [...] Description 11/27/2024 9:00 AM EDT Office Visit [address] [address] Alexander Jones MD [address] [place] [address] 12/04/2024 9:00 AM EDT Office Visit [address] [address] Alexander Jones MD [address] [place] [address] 01/28/2025 10:00 AM EDT Office Visit [address] [address] Vince Lockhart MD [address] [place] [address] documented as of this encounter Goals Goal [...] documented as of this encounter Care Teams Chute Operator Relationship Specialty Start Date End Date Vince Lockhart MD [address] [place] [address] PCP - General Internal Medicine 04/10/14 [facility] 12/29/23 documented as of this encounter
--- OUTSIDE RECORDS SUMMARY | 2024-11-21 12:45 | XMS_ITS | Encounter Summary ---
Author Organization [employer] Address [address] [facility] 7t [place] [address] Care Team Providers Care Test Driller Name Role Phone Vince Lockhart MD Primary Care Provide r Osiel Mendez PharmD Unavailable [phone] Reason for Visit * Reason Comments Med Refill Encounter Details Date Type Department Care Team (Late st Contact Info) Description 10/07/2022 Refill [facility] MEDICINE 230 [place], [place] [phone] Vince Lockhart MD 230 [place], [place] [phone] Depressive disorder Social History Tobacco Use Types [...] Description 11/27/2024 9:00 AM EDT Office Visit [facility] MEDICINE [address] [place], [place] [phone] Alexander Jones MD [place] [address] 12/04/2024 9:00 AM EDT Office [address] [place] [place] [address] Alexander Jones MD [facility] [place] [address] 01/28/2025 10:00 AM EDT Office Visit [address] [place] [address] Vince Lockhart MD [facility] [place] [address] documented as of this encounter Visit Diagnoses Diagnosis Depressive disorder Depressive disorder, not elsewhere classified documented in this encounter Care Teams Test Driller Relationship Specialty Start Date End Date Vince Lockhart MD [facility] [place] [address] PCP - General Internal Medicine 04/10/14 Osiel Mendez PharmD [address] [place], [place] [address]w[place] [address] Pharmacist Internal Medicine 12/19/22 06/11/23 [facility] 12/29/23 documented as of this encounter
--- OUTSIDE RECORDS SUMMARY | 2024-11-21 12:45 | XMS_ITS | Encounter Summary ---
Author Organization [employer] Address [address] [facility] 7t [place] [address] Care Team Providers Care Worship Pastor Name Role Phone Vince Lockhart MD Primary Care Provide r Reason for Visit * Reason Onset Date Comments Med Refill 07/13/2023 Encounter Details Date Type Department Care Team ([facility] st Contact Info) Description 07/13/2023 Telephone [facility] MEDICINE 230 [place], [place] [phone] Vince Lockhart MD 230 [place], [place] [phone] Med Refill Social History Tobacco Use Types [...] Garvin LPN - 07/13/2023 12:46 PM EST 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 Ambien last filled on 06/30/23 Qty: [...] Office Visit [facility] MEDICINE [address] [place] [address] Alexander Jones MD [address] [place] [address] 12/04/2024 9:00 AM EDT Office Visit [facility] MEDICINE [address] [place] [address] [place] [address] 01/28/2025 10:00 AM EDT Office Visit [facility] [place] [phone] Vince Lockhart MD 230 [facility] [place] [address] documented as of this encounter Goals Goal [...] documented as of this encounter Care Teams Worship Pastor Relationship Specialty Start Date End [place] [address] PCP - General Internal Medicine 04/10/14 [facility] 12/29/23 documented as of this encounter
--- OUTSIDE RECORDS SUMMARY | 2024-11-21 12:45 | XMS_ITS | Encounter Summary ---
Author Organization [email or web address] Address 75 [facility] 7t [place] [address] Care Team Providers Care Marketing Project Lead Name Role Phone Vince Lockhart MD Primary Care Provide r Reason for Visit * Reason Onset Date Comments Created in Error 04/09/2024 Encounter Details Date Type Department Care Team ([facility] st Contact Info) Description 04/09/2024 Telephone [facility] MEDICINE 230 [place], [place] [phone] Vince Lockhart MD 230 [place] [address] Created in Error Social History Tobacco Use [...] Description 11/27/2024 9:00 AM EDT Office Visit [facility] MEDICINE [address] [place] [address] Alexander Jnoes MD [address] [place] [address] 12/04/2024 9:00 AM EDT Office Visit [address] [address] Alexander Jones MD [address] [place] [address] 01/28/2025 10:00 AM EDT Office Visit [address] [address] Vince Lockhart MD [address] [place] [address] documented as of this encounter Goals Goal [...] as of this encounter Care Teams Marketing Project Lead Relationship Specialty Start Date End Date Vince Lockhart MD 230 [place] [address] PCP - General Internal Medicine 04/10/14 [facility] 12/29/23 documented as of this encounter
--- OUTSIDE RECORDS SUMMARY | 2024-11-21 12:45 | XMS_ITS | Encounter Summary ---
Author Organization [employer] Address 75 [facility] 7t [place] [address] Care Team Providers Care Shipping And Receiving Associate Name Role Phone Vince Lockhart MD Primary Care Provide r Osiel Mendez PharmD Unavailable [phone] Encounter Details Date Type Department Care Team (Late st Contact Info) Description 09/26/[address] [facility] MEDICINE [address] [place] [address] Vince Lockhart MD [address] [place] [address] Social History Tobacco Use Types Packs/Day Years [...] Description 11/27/2024 9:00 AM EDT Office Visit [facility] MEDICINE [address] [place] [address] Alexander Jones MD [address] [place] [address] 12/04/2024 9:00 AM EDT Office Visit [facility] MEDICINE [address] [place] [address] Alexander Jones MD [facility] [place], [place] [phone] 01/28/2025 10:00 AM EDT Office Visit [facility] MEDIC[facility] [place] [address] Vince Lockhart MD [address], [place] [phone] documented as of this encounter Visit Diagnoses Not on filedocumented in this encounter Care Teams Shipping And Receiving Associate Relationship Specialty Start Date End Date Vince Lockhart MD [facility] [place], [place] [phone] PCP - General Internal Medicine 04/10/14 Osiel Mendez PharmD [address] [place] [address] Pharmacist Internal Medicine 12/19/22 06/11/23 [facility] 12/29/23 documented as of this encounter
--- OUTSIDE RECORDS SUMMARY | 2024-11-21 12:45 | XMS_ITS | Encounter Summary ---
Author Organization [employer] Address 75 [facility] 7t [place] [address] Care Team Providers Care Archeology Faculty Member Name Role Phone Vince Lockhart MD Primary Care Provide r Reason for Visit * Reason Comments Med Refill Encounter Details Date Type Department Care Team ([facility] st Contact Info) Description 07/04/2023 Refill [facility] MEDICINE 230 [place], [place] [phone] Monse Gonzalez MD 230 [place] [address] Social History Tobacco Use Types Packs/Day Years [...] Description 11/27/2024 9:00 AM EDT Office Visit [address] [address] Alexander Jones MD [address] [place] [address] 12/04/2024 9:00 AM EDT Office Visit [address] [address] Alexander Jones MD [address] [place] [address] 01/28/2025 10:00 AM EDT Office Visit [address] [address] Vince Lockhart MD [address] [place] [address] documented as of this encounter Goals Goal [...] documented as of this encounter Care Teams Archeology Faculty Member Relationship Specialty Start Date End Date Vince Lockhart MD 230 [place] [address] PCP - General Internal Medicine 04/10/14 [facility] 12/29/23 documented as of this encounter
--- OUTSIDE RECORDS SUMMARY | 2024-11-21 12:45 | XMS_ITS | Clinical Summary ---
Author Organization [employer] Address [address] [facility] [address] [place] [address] Care Team Providers Care Nutrition Faculty Member Name Role Phone Vince Lockhart [...] INHALE 2 PUFFS BY MOUTH ONCE DAILY 023 Active topiramate 50 MG tablet Take 1 tablet by mouth at bedtime. 023 Active QUEtiapine (SEROquel) 50 MG tablet TAKE 1 TABLET BY MOUTH FOUR TIMES DAILY NEEDED FOR ANXIETY OR FOR RESTLESSNESS 023 Active QUEtiapine (SEROquel) 100 MG tablet TAKE [...] OR PAIN 60 tablet 1 024 Active meloxicam (Mobic) 15 MG tabletIndications :Chronic [...] (one) time for 1 dose. 1 tablet 024 Active risperiDONE (RisperDAL) 1 MG tabletIndications :Major Depressive Disorder Take 1 tab once 1 tablet 024 Active LORazepam (Ativan) 0.5 MG tabletIndications :Anxiety state Take 1 tablet (0.5 mg) by mouth 1 (one) time for 1 dose. 1 tablet 024 Active ferrous sulfate 325 (65 Fe) MG tablet Take 1 tablet (325 mg) by mouth at bedtime. 30 tablet 3 024 Active Eliquis 5 MG tablet 024 Active escitalopram (Lexapro) 10 MG tablet 024 Active pantoprazole (ProtoNix) 40 MG EC tabletIndications :Hospital discharge follow-up TAKE 1 TABLET BY MOUTH EVERY MORNING. DO NOT CRUSH, CHEW OR SPLIT. 90 tablet 1 025 Active venlafaxine XR (Effexor XR) 150 MG 24 hr capsuleIndication s:Depressive disorder,Bipolar affective disorder, currently depressed, moderate (CMS/HCC) TAKE 1 CAPSULE (150 MG) BY MOUTH IN THE MORNING. DO NOT CRUSH OR CHEW. 30 capsule 10 025 2025 Active ferrous sulfate 325 (65 Fe) MG EC tablet TAKE 1 TABLET (325 MG) BY MOUTH AT BEDTIME. 30 tablet 2 025 Active atorvastatin (Lipitor) 40 MG tabletIndications :Mixed hyperlipidemia TAKE 1 TABLET BY MOUTH AT BEDTIME 30 tablet 4 025 Active ondansetron (Zofran) 4 MG tabletIndications :Nausea and vomiting, unspecified vomiting type TAKE 1 TABLET (4 MG) BY MOUTH EVERY 8 (EIGHT) HOURS IF NEEDED FOR NAUSEA OR VOMITING. 10 tablet 025 Active Viagra 100 MG tablet TAKE 1 TABLET 1 HOUR BEFORE SEXUAL RELATIONS ONCE DAILY NEEDED. 8 tablet 5 025 Active Buprenorphine HCl-Naloxone HCl (Suboxone) 8-2 MG SL filmIndications:S ubstance-related disorder (CMS/HCC) Place 1 Film under the tongue Once per day for 7 days. Do not start before October 09, 2024. 1 Film 025 Active albuterol (Ventolin HFA) 108 (90 Base) MCG/ACT inhaler INHALE 2 PUFFS BY MOUTH EVERY 4 TO 6 HOURS NEEDED 18 g 025 Active ipratropium-albut tawanda (Duo-Neb) 0.5-2.5 mg/3 mL nebulizer solutionIndicatio ns:Pulmonary emphysema, unspecified emphysema type (CMS/HCC) INHALE 1 AMPULE USING A NEBULIZER THREE TIMES DAILY IN THE MORNING, AT NOON, AND AT BEDTIME NEEDED FOR WHEEZING 180 mL 025 Active baclofen (Lioresal) 10 MG tabletIndications :Cocaine abuse (CMS/HCC) TAKE 1 TABLET (10 MG) BY MOUTH 3 TIMES DAILY NEEDED 90 tablet 025 Active QUEtiapine (SEROquel) 400 MG tablet TAKE 1 TABLET (400 MG) BY MOUTH AT BEDTIME. 30 tablet 025 Active buprenorphine-nal oxone (Suboxone) 4-1 MG per sublingual filmIndications:U ncomplicated opioid dependence (CMS/HCC) Place 1 Film under the tongue Once per day for 7 days. This is in addition to his 8/2mg BID regimen. Do not start before November 20, 2024. 7 Film 025 2024 Active Buprenorphine HCl-Naloxone HCl (Suboxone) 8-2 MG SL filmIndications:U ncomplicated opioid dependence (CMS/HCC) Place 1 Film under the tongue 2 times daily for 7 days. Suboxone 4mg/1mg SL daily added to the 8/2mg BID regimen. Do not start before November 20, 2024. 14 Film 025 2024 Active QUEtiapine (SEROquel) 400 MG tablet TAKE 1 TABLET (400 MG) BY MOUTH AT BEDTIME. 30 tablet 1 025 2024 Discontinued buprenorphine-nal oxone (Suboxone) 4-1 MG per sublingual filmIndications:U ncomplicated opioid dependence (CMS/HCC) Place 1 Film under the tongue Once per day for 14 days. This is in addition to his 8/2mg BID regimen. Do not start before October 23, 2024. 7 Film 1 025 2024 Discontinued(R eorder (will not trigger notification to Pharmacy)) Buprenorphine HCl-Naloxone HCl (Suboxone) 8-2 MG SL filmIndications:U ncomplicated opioid dependence (CMS/HCC) Place 1 Film under the tongue 2 times daily for 14 days. Suboxone 4mg/1mg SL daily added to the 8/2mg BID regimen. 14 Film 1 025 2024 Discontinued(R eorder (will not trigger notification to Pharmacy)) buprenorphine-nal oxone (Suboxone) 4-1 MG per sublingual filmIndications:U ncomplicated opioid dependence (CMS/HCC) Place 1 Film under the tongue Once per day for 7 days. This is in addition to his 8/2mg BID regimen. Do not start before November 06, 2024. 7 Film 025 2024 Discontinued(R eorder (will not trigger notification to Pharmacy)) Buprenorphine HCl-Naloxone HCl (Suboxone) 8-2 MG SL filmIndications:U ncomplicated opioid dependence (CMS/HCC) Place 1 Film under the tongue 2 times daily for 7 days. Suboxone 4mg/1mg SL daily added to the 8/2mg BID regimen. Do not start before November 06, 2024. 14 Film 025 2024 Discontinued(R eorder (will not trigger notification to Pharmacy)) buprenorphine-nal oxone (Suboxone) 4-1 MG per sublingual filmIndications:U ncomplicated opioid dependence (CMS/HCC) Place 1 Film under the tongue Once per day for 7 days. This is in addition to his 8/2mg BID regimen. Do not start before November 13, 2024. 7 Film 025 2024 Discontinued(R eorder (will not trigger notification to Pharmacy)) Buprenorphine HCl-Naloxone HCl (Suboxone) 8-2 MG SL filmIndications:U ncomplicated opioid dependence (CMS/HCC) Place 1 Film under the tongue 2 times daily for 7 days. Suboxone 4mg/1mg SL daily added to the 8/2mg BID regimen. Do not start before November 13, 2024. 14 Film 025 2024 Discontinued(R eorder [...] positive. Under the care of Dr Gerber Bartacker kathleen greene 04/16/2024 who recommended Apixaban 5 mg po BID x 3 months and follow up with him. Pt reports compliance with it. Repeat CT 06/24/2024 showed: IMPRESSION: 1. No central or segmental pulmonary emboli. 2. Mild centrilobular emphysema. VTE: negative. Pneumonia due to infectious organism 01/09/2024 Assessment & Plan (01/09/2024 10:18 AM EDT): Pt admitted to [facility] for Acute hypoxic respiratory failure and COPD [...] chest x-ray for resolution We contacted his Bartacker Dr. Gerber. He was given an appointment for this Monday at 10:15 AM I contacted his VNA who will be arranging transportation for him. Obtain Plain x-ray of chest for f/u Pneumonia. Acute pain of right shoulder 01/09/2024 Assessment & Plan (01/09/2024 10:15 AM EDT): Seen at our [facility] 01/04/2024 Plain films showed: No [...] PET CT , Pt referred back to [facility]mon[facility] for consideration of lung biopsy he is a patient of Dr. Gerber. While in the Hospital Pt had a repeat Chest CT 11/29/2023 ( [facility] ) that showed: IMPRESSION: 1. Near complete [...] biopsy was aborted. Pt has appointment with Bartacker Dr. Gerber this Monday at 10:15 AM [...] PET CT Ordered, Pt referred back to [facility] for consideration of [...] currently depressed, moderate 07/04/2023 Assessment & Plan (10/29/2024 10:19 AM EDT): Pt here for a follow up He tells me he is seeing a psychotherapist and a psychiatrist Unclear if he is still taking any of these meds? He did not bring his med list Mirtazapine 45 mg po at bedtime Effexor [...] 5 mg po at bedtime prn insomnia They will prewscribe all of his medications Assessment & Plan (07/02/2024 12:45 PM EST): [...] tells me has an appointment with [facility] for Behavioral health 09/26/2023 I have agreed [...] tells me has an appointment with [facility] for Behavioral health next week, I have [...] him to harm himself. While in the [facility] he was found to be depressed [...] Pt apparently has an appointment with [facility] for Behavioral health on Monday, I have asked our Care management department to get involved since I am concerned pt is unable to navigate the system on his own. Chronic low back pain without sciatica 3 Assessment & Plan (10/29/2024 10:08 AM EDT): Pt with persistent low back [...] He is not a candidate for Narcotics. MRI lumbar spine 08/2024 showed: MRI showed: L5/S1: Mild disc bulge and facet hypertrophy associated with mild bilateral neural foraminal stenosis. L4/L5: Short pedicles and facet /ligamentum flava hypertrophy associated with mild central canal and left neural foraminal stenosis. Right renal T2 hyperintense lesion/cyst could be further evaluated with ultrasound. Renal US 09/09/2024 showed: IMPRESSION: 1. 2.4 cm right renal cyst. 2. No hydronephrosis. 3. Nonobstructing bilateral nephrolithiasis. Will refer to [facility] Assessment & Plan (10/03/2023 9:51 AM EDT): [...] obtain MRI lumbar spine Will refer to [facility] Assessment & [...] in services. PLAN: 1. Follow up with [facility]: Recommended for follow-up: during AUD clinic appt [...] seen by a therapist and psychiatrist at [facility]; awaiting follow-up appointments. 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 Patient has information about [facility] and [facility]. At this time Augustin Vital meets criteria [...] out help PLAN: 1. Follow up with [facility]: Not recommended for follow-up 2. Patient goal is to remain sober 3. Behavioral Recommendations a. Comply with medication b. Attend groups c. Engage in therapy and psychiatry d. Utilize debt recovery officer as a support e. May reach out to [facility] for additional support Assessment & Plan (10/03/2022 5:03 PM EDT): Sent to ED/section 12a form filled out. Called ambulance and [facility] ED for soft sign [...] Unclear current meds, no discharge summary from [place] available. Spoke with [facility] crisis mill platform supervisor Jaci And suggested to send to [...] Verapamil SR 120mg daily Assessment & Plan (10/29/2024 10:15 AM EDT): Patient with Hx of Hypertension Most recent electrolytes, Bun and Creatinine done on: 06/24/2024 were within normal limits. No longer on Verelan PM 120 mg po qhs Patient advised to adhere to a low sodium diet, encouraged about medication compliance, counseled about weight loss. Assessment & Plan (07/02/2024 10:58 AM EST): [...] WNL. Pt was also referred to a customer operations specialist to r/o hematologic conditions. vs anemia [...] WNL. Pt was also referred to a customer operations specialist to r/o hematologic conditions. vs anemia of chronic disease. and to GI to r/o GIB. Pt did nto go to either. compliance is a major problem. Last CBC 06/03/[address] [facility] health care 08/01/2022 Assessment & Plan (10/29/2024 10:14 AM EDT): Colonoscopy: 01/08/2018 Normal 10 year f/u PSA 08/2024 Normal Assessment & Plan (07/02/2024 12:46 PM EST): Colonoscopy: 01/08/2018 Normal 10 year f/u PSA 2018 Normal. Will repeat Assessment & Plan (10/03/2023 9:49 AM EDT): Colonoscopy: 01/08/2018 Normal 10 year f/u PSA 2018 Normal. Will repeat Assessment & Plan (03/28/2023 [...] index finger. initially evaluated at [facility] for consideration of excision. They recommended pt see a assistant education director. he was seen by a local assistant education director Dr Ortiz who recommended a plastic surgeon [...] 10:35 AM EDT): He was admitted to [facility] from 11/28-12/14 due to acute metabolic [...] and COPD exacerbation he was transferred to [facility] 12/16/2023 psychiatric siu where he remained until 12/28/2023 His medications were adjusted and once stable he was discharged. Pt today reports he feels good, is back at adventism and feels much better. No concerns Assessment & Plan (07/04/2023 4:14 PM EST): Here after a recent Hospital admission where he was admitted for depression and underlying Bipolar disorder Assessment & Plan (04/18/2023 11:50 AM EDT): Patient here for a HDF admitted to [facility] from 04/01 until 9/18 presented via EMS for increased SOB. Admitted for COPD exacerbation, started on nebs, steroids, and cough medication. Discharged home on 2 more days of azithromycin, prednisone and codeine/guaifenesin for cough. ?? Patient was then admitted to [facility] from 04/05 until 04/07 with viral URI and COPD exacerbation. Treated with prednisone and azithromycin x 3 days. Given Breo, Spiriva and Duonebs prn. Patient improved and ambulated w/o difficulty. Discharged on 3 more days of prednisone, Spiriva, Symbicort and albuterol. [facility]. Pt was seen by pulmonology [...] HDF, recently admtted and discharged 02/24 from [facility] after he presented with [...] 12 in the ED and admitted to [facility] from 06/21 to 07/08 for severe [...] stay. Patient discharged home to F/U with [facility]. ?Patient reports feeling ? better? since discharge. Using medications prescribed at discharge, and reports he is in need of refills. Patient gets help from nurse to administer medications. Patient reports having F/U with a counselor however reports that appointment is in [place] and reports interest in getting counselor or psych treatment at [facility]. Pulmonary emphysema 06/14/2022 Assessment & Plan (10/29/2024 10:13 AM EDT): Patient is here for a follow up. He is on Stiolto, Albuterol, Duoneb PRN and follows with Dr. Gerber last seen 07/29/2024. Most recent PFTs done 08/30/2019 showed severe [...] PET/CT or biopsy. I referred back to [facility] Pulmonology department since he is a patient of Buzz Barcenas and I ordered a PET-CT but this was not done ( pt was admitted to the Hospital ) Repeat Chest CT 06/24/2024 showed: IMPRESSION: 1. No central or segmental pulmonary emboli. 2. Mild centrilobular emphysema. VTE: negative. Dr. Gerber discontinued his Apixaban Assessment & Plan (01/09/2024 10:22 AM EDT): [...] PET/CT or biopsy. I referred back to [facility] Pulmonology department since he is a patient of Buzz Barcenas and I ordered a PET-CT but this was not done ( pt was admitted to the Hospital ) Repeat Chest CT at [facility] showed: IMPRESSION: 1. Near complete resolution of [...] or biopsy. I have referred back to [facility] Pulmonology department since he is a patient [...] he no showed Recently hospitalized 01/16/2023 at [facility] for COPD exacerbation as well as substance abuse and suicidal ideation. Plan: Continue Flovent and Duonebs prn, at some point he was on Stiolto by Dr Gerber, but has not filled. Pt was referred to Pharmacy asthma clinic in the past f/u in 3 months Will refer back to Dr eGrber Assessment & Plan (02/07/2023 12:54 PM EDT): Televisit He is supposed to be on Flovent, Spiriva and Albuterol, Most recent PFTs done 08/30/2019 showed severe COPD with a reversible component Pulmonology referral placed twice, no showed Recently hospitalized 01/16/2023 at [facility] for COPD exacerbation as [...] wnl Cocaine abuse 06/01/2017 Assessment & Plan (10/29/2024 10:01 AM EDT): Pt now following with our CRS team I had a explained to patient that he is not a good candidate for Narcotics given his Hx of substance abuse Assessment & Plan (07/02/2024 11:12 AM EST): [...] at our [facility] tomorrow Recent test at [facility] 03/24/2023 was positive for Cocaine Patient was referred for our CRS Cocaine support group. I had a explained to patient that he is not a good candidate for Narcotics given his Hx of substance abuse and active use of Cocaine Assessment & Plan (03/28/2023 1:01 PM EDT): Previous visit he told me he was not using Recent test at [facility] 03/24/2023 was positive for [...] Plan (02/07/2023 12:55 PM EDT): Admitted to [facility] 01/16/2023 for COPD exacerbation in the setting of ongoing cocaine abuse Pt referred to the [facility] Assessment & Plan (10/03/2022 5:03 [...] 05/15/2014 Kidney stone 02/09/2012 Assessment & Plan (10/29/2024 10:04 AM EDT): Renal US showed: US IMPRESSION: 1. 2.4 cm right renal cyst. 2. No hydronephrosis. 3. Nonobstructing bilateral nephrolithiasis. Seen last by Urology 01/25/2024 he was supposed to follow up in 6 months Assessment & Plan (03/28/2023 1:00 PM EDT): Patient with c/o flank pain, evaluated in the ER 03/24/2023. Renal US showed: Bilateral renal stones. No hydronephrosis. Plan: Urology consult Anxiety state 12/28/2011 Assessment & Plan (03/07/2023 1:38 PM EDT): I spoke with pt's VNA from [facility] . Pt is already scheduled to see [...] Augustin agreed. Patient has Psychiatrist at [facility] but his VNA adriana has not been [...] obtain help. PLAN: 1. Follow up with [facility]: Recommended for follow-up: during OBAT appt 2. Patient goal is to imporve mental health and become sober 3. Behavioral Recommendations a. Crisis Evaluation b. Taking Psych meds as prescribed c. Keeping in touch with [facility] and [facility] Assessment & Plan (04/04/2023 4:02 PM EDT): Patient here for a follow up He has a VNA from [facility] . He was supposed to see a [...] and others were modified. Previously admitted to [facility] from 06/21 to 07/08 for severe depression with SI and planned to OD on pills. Patient reported his son was murdered and he fell into deep depression, and relapsed to using cocaine daily. Assessment & Plan (03/07/2023 1:41 PM EDT): Patient here for a follow up I spoke with pt's VNA from [facility] . Pt is already scheduled to see [...] to miss his appointments Previously admitted to [facility] from 06/21 to 07/08 for severe depression with SI and planned to OD on pills. Patient reported his son was murdered and he fell into deep depression, and relapsed to using cocaine daily. Assessment & Plan (02/07/2023 12:59 PM EDT): Patient here for a follow up Previously admitted to [facility] from 06/21 to 07/08 for severe [...] he was seeing Dr Jeffery Harkins in [place] The recommendation from [facility] is that once patient was stable [...] tells me has a follow up at [facility] on 08/17/2022 at 1:30 PM was also sectioned 12 in the ED and admitted to [facility] from 06/21 to 07/08 for severe [...] stay. Patient discharged home to F/U with [facility]. Prior to this admission pt told me he was seeing Dr Jeffery Harkins in [place] Prior to his admission he was on a lower dose of Seroquel (300 mg at bedtime plus 100 mg at bedtime). He was also on a higher dose of Mirtazapine of 30 mg at bedtime, Paxil 30 mg at HS and Klonopin 1 mg BID prescribed by Dr Jeffery Harkins. The recommendation from [facility] is that once patient was stable on Venlafaxine 75 to taper him off Mirtazapine and Klonopin. Plan: DC Paxil, Lower Klonopin to 0.5 mg po BID PRN x 1 month then every day x 1 month then every other day until DC Encounters Date Type Department Care Team Description 11/20/2024 9:00 AM EDT Office Visit [address] [address] Alexander Jones MD Uncomplicated opioid dependence (CMS/HCC) (Primary Dx) 11/20/2024 Travel 11/18/2024 Refill [facility] [address] [place] [address] Georgina Ann RN Uncomplicated opioid dependence (CMS/HCC) 11/18/[address] [address] Vince Lockhart MD Durable Medical Equipment 11/13/2024 9:00 AM EDT Office Visit [address] [address] Alexander Jones MD Opioid type dependence, continuous (CMS/HCC) (Primary Dx) 11/13/2024 Travel 11/11/2024 Refill [facility] [address] [place] [address] Vince Lockahrt MD 11/08/2024 Refill [facility] [address] [place] [address] Georgina Ann RN Uncomplicated opioid dependence (CMS/HCC) 11/06/2024 9:00 AM EDT Clinical Support [address] [place] [address] Georgina Ann RN Opioid type dependence, continuous ([facility]/HCC) (Primary Dx) 11/06/2024 Travel 11/05/2024 Refill [facility] [address] [facility] [address] Georgina Ann RN Uncomplicated opioid dependence ([facility]/HCC) 10/29/2024 10:00 AM EDT Office Visit [facility] [address] [facility] [place] [address] Vince Lockhart MD Cocaine abuse (CMS/HCC) (Primary Dx); Kidney stone; Chronic midline low back pain without sciatica; Pulmonary emphysema, unspecified emphysema type (CMS/HCC); Preventative health care; Primary hypertension; Bipolar affective disorder, currently depressed, moderate (CMS/HCC) 10/29/2024 Travel 10/23/2024 9:00 AM EDT Office Visit [facility] [place] [address] Alexander Jones MD Uncomplicated opioid dependence ([facility]/HCC) (Primary Dx) 10/23/2024 Travel 10/18/2024 Refill [facility] [address] Vince Lockhart MD Cocaine abuse ([facility]/HCC) 10/17/2024 Refill [facility] [place] [address] Georgina Ann RN Uncomplicated opioid dependence ([facility]/HCC) 10/15/2024 Patient Outreach [facility] [place] [address] Vince Lockhart MD Care Coordination (CHW outreach for SDOH PT-1 and food needs-referral completed /) 10/15/2024 Patient Outreach [facility] [place] [address] Vince Lockhart MD Pre-visit Planning (SDOH Screening positive and Tobacco screening negative) 10/10/2024 Refill [facility] [place] [address] Vince Lockhart MD Pulmonary emphysema, unspecified emphysema type (CMS/HCC) 10/10/2024 Refill [facility] [address] [place] [address] Felicia Hdz ANP Pulmonary emphysema, unspecified emphysema type (CMS/HCC) 10/09/2024 9:00 AM EDT Office Visit [facility] [address] [place] [address] Alexander Jones MD Opioid type dependence, continuous (CMS/HCC) (Primary Dx) 10/09/2024 Refill [facility] [address] [place] [address] Georgina Ann RN Uncomplicated opioid dependence (CMS/HCC); Substance-related disorder (CMS/HCC) 10/09/2024 Telephone [facility] [address] [place] [address] Vince Lockhart MD Chart Prep 10/09/2024 Travel 10/07/2024 Refill [facility] [address] [place] [address] Georgina Ann RN Uncomplicated opioid dependence (CMS/HCC) 10/04/2024 Refill [facility] [address] [place] [address] Georgina Ann RN Uncomplicated opioid dependence ([facility]/HCC); Substance-related disorder (CMS/HCC) 09/30/2024 Refill [facility] [address] [place] [address] Georgina Ann RN Uncomplicated opioid dependence ([facility]/HCC); Substance-related disorder (CMS/HCC) 09/30/2024 Refill [facility] [address] [place] [address] Georgina Ann, GUERO Uncomplicated opioid dependence (CMS/HCC) 09/27/2024 Population Health Risk Score [facility] () Department [address] [place] [phone] Provider, Population Health Generic 09/26/2024 Refill [facility] MED[facility] [address] [place] [address] Vince Lockhart MD 09/25/2024 9:00 AM EDT Office Visit [facility] [address] [place] [address] Alexander Jones MD Opioid type dependence, continuous ([facility]/HCC) (Primary Dx) 09/25/2024 Travel 09/24/2024 Telephone [facility] MEDICINE [address] [place] [address] Vince Lockhart MD Call Back Request; Durable Medical Equipment 09/23/2024 Refill [facility] MED[facility]INE [address] [place] [address] Vince Lockhart MD Nausea and vomiting, unspecified vomiting type 09/20/2024 Refill [facility] MED[facility]INE [address] [place] [address] Vince Lockhart MD 09/18/2024 Refill [facility] MED[facility]INE [address] [place] [address] Georgina Ann RN Uncomplicated opioid dependence ([facility]); Substance-related disorder (CMS/HCC) 09/16/2024 Refill [facility] [place] [address] Vince Lockhart MD Mixed hyperlipidemia 09/11/2024 9:00 AM EST Office Visit [facility] [place] [address] Alexander Jones MD Uncomplicated opioid dependence ([facility]/HCC) (Primary Dx) 09/11/2024 Refill [facility] [place] [address] Georgina Ann, GUERO Uncomplicated opioid dependence ([facility]/HCC) 09/11/2024 Refill [facility] MEDICINE [address] [place] [address] Vince Lockhart MD Cocaine abuse ([facility]/HCC) 09/11/2024 Telephone [facility] MEDICINE [address] [place] [address] Vince Lockhart MD Durable Medical Equipment 09/11/2024 Telephone [facility] [place] [address] Vince Lockhart MD Results 09/11/2024 Travel 09/06/2024 Refill [facility] [place] [address] Georgina Ann RN Uncomplicated opioid dependence (CMS/HCC) 09/04/2024 9:00 AM EST Clinical Support [facility] [place] [address] Georgina Ann RN Opioid type dependence, continuous (CMS/HCC) (Primary Dx) 09/04/2024 Telephone [facility] [place] [address] Vince Lockhart MD Med Refill 09/04/2024 Travel 08/31/2024 Refill [facility] [place] [address] Vince Lockhart MD Depressive disorder; Bipolar affective disorder, currently depressed, moderate (CMS/HCC) 08/28/2024 9:00 AM EST Office Visit [facility] [place] [address] Alexander Jones MD Uncomplicated opioid dependence (CMS/HCC) (Primary Dx) 08/28/2024 Refill [facility] [place] [address] Georgina Ann RN Uncomplicated opioid dependence (CMS/HCC) 08/28/2024 Patient Outreach [facility] [address] Vince Lockhart MD Care Coordination (CHW outreach for SDOH PT-1 and food needs-referral completed /) 08/28/2024 Travel 08/28/2024 Telephone [facility] [address] Vince Lockhart MD PT-1 08/24/2024 Refill [facility] [address] Vince Lockhart MD from Last 3 Months [...] Passive Smoke Exposure: Current Smokeless Tobacco: Never Tobacco Cessation:Ready to Q [...] Sign Reading Time Taken Comments Blood Pressure 122/75 10/29/2024 9:51 AM EDT Pulse 95 10/29/2024 9:51 AM EDT Temperature 36.2 ??C (97.1 ??F) 10/29/2024 9:51 AM ED T Respiratory Rate 20 10/29/2024 9:51 AM EDT Oxygen Saturation 95% 10/29/2024 9:51 AM EDT Inhaled Oxygen Concentration - - Weight 63 kg (139 lb) 10/29/2024 9:51 AM EDT Height 162.6 cm (5' 4 ) 10/29/2024 9:51 AM EDT Body Mass Index 23.86 10/29/2024 9:51 AM EDT Plan of Treatment Upcoming Encounters Date Type Department Care Team (Late st Contact Info) Description 11/27/2024 9:00 AM EDT Office Visit [facility] MEDICINE [address] [place] [address] Alexander Jones MD [address] [place] [address] 12/04/2024 9:00 AM EDT Office Visit [facility] MEDICINE [address] [place] [address] Alexander Jones MD [address] [place] [address] 01/28/2025 10:00 AM EDT Office Visit [facility] MEDICINE [address] [place] [phone] Vince Lockhart MD [address] [place] [phone] Health Maintenance Due Date Last Done Comments CT Colonography 1965 FIT DNA/Cologuard 1965 FIT 1965 FOBT 1965 Sigmoidoscopy 1965 Dental Prophylaxis 05/29/2015 11/25/2014, 1 07/26/2013, 09/05/2013 Dental Oral Exam 10/05/2018 04/06/2018, 03/2016, 08/06/2013, Additional history exists Dental X-Ray: Bitewings 04/07/2019 04/06/20 18, 04/18/2016, 08/25/2015, Additional history exists RSV Patients and Patients Aged 60 years or older (1 - Risk 60-74 years 1-dose series) 2023 COVID-19 Vaccine ( season) 2024 09/21/2023, 07/08/2021, 09/30/2020 Influenza Vaccine (#1) 2024 , 08/23/2022, 04/07/2021, Additional history exists Alcohol/Substance Use Screening 07/02/2025 07/02/2024 Depression Screening 07/02/2025 07/02/2024, 07/02/20 24 Diabetes: Hemoglobin A1C 08/21/2025 08/21/2024 SDOH Screening 10/29/2025 10/29/2024 Tobacco Screening 10/29/2025 10/29/2024 Dental X-Ray: Full Mouth 10/26/2026 10/26/2023, 07/18 [...] topic Meningococcal Vaccine Aged Out No fermin raphael eligible based on patient's age to complete [...] track( 025 5:09 PM EDT) Georgina Cameron, lion hunter Procedure Name Priority Date/Time Associated Diagnosis Comments POCT MARIA ANTONIA-14 URINE DRUG SCREEN Routine 11/20/2024 9:33 AM EDT Uncomplicated opioid dependence (CMS/HCC) POCT MARIA ANTONIA-14 URINE DRUG SCREEN Routine 11/13/2024 8:57 AM EDT Opioid type dependence, continuous (CMS/HCC) POCT MARIA ANTONIA-14 URINE DRUG SCREEN Routine 11/06/2024 9:14 AM EDT Opioid type dependence, continuous (CMS/HCC) POCT MARIA ANTONIA-14 URINE DRUG SCREEN Routine 10/23/2024 9:03 AM EDT Uncomplicated opioid dependence (CMS/HCC) POCT MARIA ANTONIA-14 URINE DRUG SCREEN Routine 10/09/2024 9:09 AM EDT Opioid type dependence, continuous (CMS/HCC) POCT MARIA ANTONIA-14 URINE DRUG SCREEN Routine 09/25/2024 9:20 AM EDT Opioid type dependence, continuous (CMS/HCC) POCT MARIA ANTONIA-14 URINE DRUG SCREEN Routine 09/11/2024 9:06 AM EST Uncomplicated opioid dependence (CMS/HCC) US RENAL BI Routine 09/09/2024 3:50 PM EST Renal lesion POCT MARIA ANTONIA-14 URINE DRUG SCREEN Routine 09/04/2024 8:54 AM EST Opioid type dependence, continuous (CMS/HCC) POCT MARIA ANTONIA-14 URINE DRUG SCREEN Routine 08/28/2024 8:58 AM EST Uncomplicated opioid dependence (CMS/HCC) HEMOGLOBIN A1C Routine 08/21/2024 9:04 AM EST Elevated random blood glucose level LIPID PANEL, STANDARD Routine 08/21/2024 9:04 AM EST Primary hypertension PANORAMIC RADIOGRAPHIC IMAGE Routine 10/26/2023 10:30 AM [...] * POCT MARIA ANTONIA-14 Urine Drug Screen (11/20/2024 9:33 AM EDT) Only the most recent of9 resultswithin the time period is included. THC Negative Cocaine Screen, Urine Negative Opiate Screen, Urine Negative Methamphetamine Screen Urine Negative Amphetamine Screen, Urine Negative Benzodiazepines Screen, Urine Positive Barbiturate Screen, Urine Negative Methadone Screen, Urine Negative Buprenophine Screen, Urine Positive TCA, Urine Negative MDMA Urine Negative ng/mL Oxycodone Screen, Urine Negative Phencyclidine (PCP), Urine Negative Fentanyl, Urine Negative Urine Urine specimen obtained by clean catch procedure / Unknown 11/20/2024 9:33 AM EDT us Alexander Jones MD POINT OF CARE TEST ENTER/EDIT OR DERABLES Final Result * US RENAL BI (09/09/2024 3:50 PM EST) Anatomical Region Laterality Modality Abdomen Ultrasound 09/09/2024 3:50 PM EST Narrative 09/09/2024 3:52 PM EST ? [facility] ?[address] ?[place] [address] ? Ultrasound Report ? Signed ? Patient: Vital,Augustin ?MR#: [id number] ?? [id number] ? : 1965 ?Acct:[id number] ? Age/Sex: 59 / M ?ADM Date: 09/06/24 ? Loc: HO.US ? Attending Dr: Vince Doran MD ? Ordering Physician: Vince Doran MD ?? Date of Service: 09/06/24 ?? Procedure(s): US renal BI ?? Accession Number(s): [id number] ? cc: Vince Doran MD ? CLINICAL HISTORY: renal lesions on MRI of Lumbar spine ? US RENAL ? Comparison: MR - MR LUMBAR SPINE WO CON - 08/18/24 11:35 EST ? Findings: ?? The right kidney measures 10.4 cm in length. There are multiple intrarenal ?? calculi that measure up to 6 mm. No hydronephrosis. There is a 2.4 x 1.9 x ?? 2.1 cm cyst. ? The left kidney measures 11.0 cm in length. There are several intrarenal ?? calculi that measure up to 9 mm. No hydronephrosis. No cortical mass ?? lesion. ? IMPRESSION: ?? 1. 2.4 cm right renal cyst. ?? 2. No hydronephrosis. ?? 3. Nonobstructing bilateral nephrolithiasis. ? This document has been electronically signed by: Radha Braun, DO on ?? 09/09/2024 15:50:41 ? Dictated By: ?Radha Braun MD ? Signed By: ?<Electronically signed by Radha Braun MD in OV> ?09/09/24 1552 ? DD/ 1550 ? TD/TT: 09/09/24 1550 ? Drafter Castings: ? Procedure Note Hari, Bao - 09/09/2024 [place] [address] Ultrasound Report Signed Patient: Loly Vital#: [id number] : 1965Acct:[id number] Age/Sex: 59 / MADM Date: 09/06/24 Loc: HO.US Attending Dr: Vince Doran MD Ordering Physician: Vince Doran MD Date of Service: 09/06/24 Procedure(s): US renal BI Accession Number(s): [id number] cc: Vince Doran MD CLINICAL HISTORY: renal lesions on MRI of Lumbar spine US RENAL Comparison: MR - MR LUMBAR SPINE WO CON - 08/18/24 11:35 EST Findings: The right kidney measures 10.4 cm in length. There are multiple intrarenal calculi that measure up to 6 mm. No hydronephrosis. There is a 2.4 x 1.9 x 2.1 cm cyst. The left kidney measures 11.0 cm in length. There are several intrarenal calculi that measure up to 9 mm. No hydronephrosis. No cortical mass lesion. IMPRESSION: 1. 2.4 cm right renal cyst. 2. No hydronephrosis. 3. Nonobstructing bilateral nephrolithiasis. This document has been electronically signed by: Radha rBaun DO on 09/09/2024 15:50:41 Dictated By: Radha Braun MD Signed By: <Electronically signed by Radha Braun MD in OV> 09/09/241551 DD/ 49 TD/TT: 09/09/241549 Drafter Castings: us Vince Avelar MD IMG US PROCEDURES Fin al Result * Hemoglobin A1c (08/21/2024 9:04 AM EST) Hemoglobin A1c 5.7 <6.0 % [facility] Comment:Hemoglobin A1C Refer ence Range Adults: 4.8 - 6.0 % Non diabetic: < 6.0 % Goal: < 7.0 %Additional Action Suggested: > 8.0 %Note: Hemoglobin A1c results are invalid for patients with abnormal amounts of HbF. Blood transfusions may impact the HbA1c concentration in the patient sample. Estimated Average Glucose 117 mg/dL [facility] Comment:eAG = Estimated ave rage glucose which is %A1C expressed asaverage glucose, using the formula of the P7G-RecblzjXhwnsuu Glucose study (ADAG), Diabetes Care, Vol.31,#8,Feb. 2007 Blood Venous blood specimen / Unknown 08/21/2024 9:04 AM EST 08/21/2024 10:51 AM EST us Vince Avelar MD LAB BLOOD ORDERABLES Final Result [facility] [address] [place] [phone] * Lipid Panel, Standard (08/21/2024 9:04 AM EST) Triglycerides 65 <150 mg/dL [facility] Comment:Desirable Triglyceri de: less than 150 mg/dLBorderline High Triglyceride 150-199 mg/dLHigh Triglyceride: 200-499 mg/dLVery High Triglyceride: greater than or equal to 5OO mg/dL Cholesterol 137 <200 mg/dL [facility] Comment:Desirable Cholestero l: less than 200 mg/dLBorderline High Cholesterol: 200-239 mg/dLHigh Cholesterol: greater than 239 mg/dL LDL Cholesterol Calculated 74 <100 mg/dL [facility] Comment:Desirable LDL: less than 100 mg/dLNear Optimal/Above Optimal LDL: 110- 129 mg/dLBorderline High LDL: 130-159 mg/dLHigh LDL: 160-189 mg/dLVery High LDL: greater than or equal to 190 mg/dL HDL Cholesterol 50 >40 mg/dL [facility] Comment:Desirable HDL: great er than 40 mg/dL Note: This HDL assay may give artificially low results in patients with liver disease. Blood Venous blood specimen / Unknown 08/21/2024 9:04 AM EST 08/21/2024 10:51 AM EST Vince Avelar MD LAB BLOOD ORDERABLES Final Result Performing Organization Address [facility] Co de Phone Number [facility] [address] [place] [phone] * (ABNORMAL) Hepatitis C Antibody with Reflex to HCV, RNA, Quantitative, Real- Time PCR (08/24/2023 2:22 PM EST) [facility] Hepatitis C Antibody Reactive( A) Nonreactive [facility] Comment:Presumptive evidence of antibodies to HCV. Blood Venous blood specimen / Unknown 08/24/2023 2:22 PM EST 08/24/2023 4:01 PM EST Alexander Jones MD LAB BLOOD ORDERABLES Final Resul t Performing Organization Address City/[facility] Co de Phone Number [facility] [address] [place] [phone] * HIV-1/2 Antigen and Antibodies, Fourth Generation, with Reflexes (08/24/2023 2:22 PM EST) HIV AB/AG Nonreactive Nonreactive [facility] Comment:HIV-1 p24 Ag and/or HIV-1/HIV-2 Ab not detected.A test result that is nonreactive does not exclude thepossibility of exposure to or infection with HIV-1 and/orHIV-2. Nonreactive results in this assay for individualswith prior exposure to HIV-1 and/or HIV-2 may be due toantigen and antibody levels that are below the limit ofdetection of this assay.The [employer] HIV Ag/Ab Combo assay result andsupplemental assay results should be interpreted inconjunction with the patient's clinical presentation,history and other laboratory results. If the results areinconsistent with clinical evidence, additional testing issuggested to confirm the result. Blood Venous blood specimen / Unknown 08/24/2023 2:22 PM EST 08/24/2023 4:01 PM EST Alexander Jones MD LAB BLOOD ORDERABLES Final Resul t [facility] [address] [place] [phone] * Colonoscopy (01/08/2018) Pathologist [facility] Colonoscopy Normal Normal 01/08/2018 Narrative Sammie Yulisa - 01/08/2018 9:39 AM EDT Recommended 10 year follow up ( per provider notes) Historical Provider HEALTH MAINTENANCE Edited Result - Final from Last 3 Months or Most Recently Relevant to Health Maintenance Insurance * Guarantor: Augustin Vital Account Type Relation to Patient Date of Phone Billing Address Personal/Family Self 1965 [address] [place] [address] [facility] Member Subscriber Plan / Payer (Ef fective 2023-Present) Name:Augustin Vital Relation to Subscriber:Self Name:Augustin Vital Payer ID:Not on file Group ID:Not on file Type:Medicaid Address: [address] [place] [address] * Guarantor: Augustin Vital Account Type Relation to Patient Date of Phone Billing Address Dental Self 1965 [address] [place], [place] [facility] MEDICAID STAND ADULT Member Subscriber Plan / Payer (Ef fective 2023-Present) Name:Augustin Vital Relation to Subscriber:Self Name:Augustin Vital Payer ID:Not on file Group ID:Not on file Type:Not on file Address: [facility] [address] [place] [address] * Guarantor: Augustin Vital Account Type Relation to Patient Date of Phone Billing Address Personal/Family Self [address] [place], [place] * Guarantor: Augsutin Vital Account Type Relation to Patient Date of Phone Billing Address Personal/Family Self [address] [place], [place] Care Teams Nutrition Faculty Member Relationship Specialty Start Date End Date Vince Lockhart MD [address] [place] [phone] PCP - General Internal Medicine 04/10/14 [facility] 12/29/23
--- OUTSIDE RECORDS SUMMARY | 2024-11-21 12:45 | XMS_ITS | Clinical Summary ---
Author Organization [facility] ity Address [address] [place] [address] Care Team Providers Care Government Affairs Manager Name Role Phone Unavailable Primary Care Provider [...] - 2023-2 5 season) 2024 Influenza Vaccine (Season Ended) 2025 RSV Immunization Adult Patie nts (1 - 1-dose 75+ series) 2038 HIB [...] age to complete this topic Meningococcal B Vaccine Aged Out No l onger eligible based on patient's age to complete [...]
--- OUTSIDE RECORDS SUMMARY | 2024-11-21 12:45 | XMS_ITS | Encounter Summary ---
Author Organization [facility] Address [address] [place] [address] Care Team Providers Care Mercury Recoverer Name Role Phone Vince Lockhart MD Primary Care Provide r Osiel Mendez PharmD Unavailable [phone] Reason for Visit * Reason Comments Med Refill Encounter Details Date Type Department Care Team ([facility] st Contact Info) Description 03/01/2023 Refill [facility] MEDICINE [address] [place], [place] [phone] Vince Lockhart MD [address] [place] [address] Depressive disorder Social History Tobacco Use Types [...] [facility] documented in this encounter Plan of Treatment Upcoming Encounters Date Type Department Care Team (Late st Contact Info) Description 11/27/2024 9:00 AM EDT Office Visit [facility] MEDICINE [address] [place] [phone] Alexander Jones MD [address] [place] [phone] 12/04/2024 9:00 AM EDT Office Visit [address] [address] Alexander Jones MD [address] [place] [phone] 01/28/2025 10:00 AM EDT Office Visit [address] [address] Vince Lockhart MD [address] [place] [phone] documented as of this encounter Goals Goal [...] documented as of this encounter Care Teams Mercury Recoverer Relationship Specialty Start Date End Date Vince Lockhart MD [address] [place] [phone] PCP - General Internal Medicine 04/10/14 Osiel Mendez PharmD [address] [place] [phone] Pharmacist Internal Medicine 12/19/22 06/11/23 [facility] 12/29/23 documented as of this encounter
--- OUTSIDE RECORDS SUMMARY | 2024-11-21 12:45 | XMS_ITS | Encounter Summary ---
Author Organization [employer] [facility] Address [address] [place] [address] Care Team Providers Care Wedding Makeup Artist Name Role Phone Vince Lochkart MD Primary Care Provide r Encounter Details Date Type Department Care Team (Latest Contact Info) Description 11/20/2024 Travel Social History Tobacco Use Types Packs/Day [...] Description 11/27/2024 9:00 AM EDT Office Visit [address] [address] Alexander Jones MD [address] [place] [phone] 12/04/2024 9:00 AM EDT Office Visit [address] [address] Alexander Jones MD [address] [place] [phone] 01/28/2025 10:00 AM EDT Office Visit [address] [address] Vince Lockhart MD [address] [place] [phone] documented as of this encounter Goals Goal Patient Goal Type Associated Problems Recent Progress Patient-Stated? Author Patient will adhere to medication regimen General On track( 025 3:09 PM EST) Osiel Vargas, PharmD Note: Difficulty with taking medications daily due to no desire Increase coping skills to promote long-term recovery and improve ability to perform daily activities General On track( 025 5:09 PM EDT) No Georgina Ann, GUERO documented as of this encounter Visit Diagnoses Not on filedocumented in this encounter Additional Health Concerns Assessment Noted Time PHQ-9 Depression Total Score: 4 07/02/20 10:58 AM EST documented as of this encounter Care Teams Wedding Makeup Artist Relationship Specialty Start Date End Date Vince Lockhart MD [address] [place] [address] PCP - General Internal Medicine 04/10/14 [facility] 12/29/23 documented as of this encounter
--- OUTSIDE RECORDS SUMMARY | 2024-11-21 12:45 | XMS_ITS | Encounter Summary ---
Author Organization [employer] Address [address] [facility] 7t [place] [address] Care Team Providers Care Magazine Hand Name Role Phone Vince Lockhart MD Primary Care Provide r Reason for Visit * Reason Comments GBAT Encounter Details Date Type Department Care Team (Latest Contact Info) Description 11/20/2024 9:00 AM EDT Office Visit [facility] MEDICINE [address] [place], [place] [phone] Alexander Jones MD [address] [place] [address] Uncomplicated opioid dependence (CMS/HCC) (Primary Dx) Social [...] Progress Notes * Alexander Jones MD - 11/20/2024 9:00 AM EDT Patient with heroin and cocaine use disorder Inconsistent follow-ups for his OBAT MAT, complicated by his medical issues Immune to Hep A/B History of Hepatitic C s/p treatment in 2017 (HCV RNA VL undetectable in 08/2023) Declined PrEP Incarceration history x2; lifetime arrests x6 ; 3 adult children (1 killed; 1 in skilled nursing [place]) Last LFT (04/03/2024) LAST GBAT VISIT 11/13/2024 UTOX: POS BUP, PERCY, THC NEG FOR ALL OTHER SUBSTANCES Patient presents for Group-Based Opioid Treatment for OUD Reviewed the group goals, expectations and policies Consented to the group treatment options Positive UTOX result reviewed Actively participated in the group discussion with the topic of: Starting Over: The Power of Rebuilding Yourself Patient has medications in a locked box and has VNA dispensing medications at home Following staff present at the visit: Team RN, MAT Physician, Visual And Stock Associate, Clinician, and Panel Cutter Opportunities provided to address individual medical/medication/ concern TODAY GBAT VISIT 11/20/2024 UTOX: POS BUP & BZO NEG FOR ALL OTHER SUBSTANCES Patient presents for Group-Based Opioid Treatment for OUD Reviewed the group goals, expectations and policies Consented to the group treatment options Actively participated in the group discussion with the topic of: The Gratitude as Superpower for Recovery Patient has medications in a locked box and has VNA dispensing medications at home Following staff present at the visit: Team RN, ADILSON Physician, Visual And Stock Associate, Clinician, and Panel Cutter Opportunities provided to address individual medical/medication/BH concern Patient with heroin and cocaine use disorder Inconsistent follow-ups for his OBAT MAT, complicated by his medical issues Immune to Hep A/B History of Hepatitic C s/p treatment in 2017 (HCV RNA VL undetectable in 08/2023) Declined PrEP Incarceration history x2; lifetime arrests x6 ; 3 adult children (1 killed; 1 in skilled nursing in [place]) Last LFT (04/03/2024) LAST GBAT VISIT 10/23/2024 UTOX: POS BUP, PERCY, TCA NEG FOR ALL OTHER SUBSTANCES Patient presents for Group-Based Opioid Treatment for OUD Reviewed the group goals, expectations and policies Consented to the group treatment options Positive UTOX result reviewed Actively participated in the group discussion with the topic of: Recognizing and Celebrating Your Progress Patient has medications in a locked box and has VNA dispensing medications at home Following staff present at the visit: Team ADILSON JACK Physician, Visual And Stock Associate, Clinician, and Panel Cutter Opportunities provided to address individual medical/medication/BH concern TODAY GBAT VISIT 11/13/2024 UTOX: POS BUP, PERCY, THC NEG FOR ALL OTHER SUBSTANCES Patient presents for Group-Based Opioid Treatment for OUD Reviewed the group goals, expectations and policies Consented to the group treatment options Positive UTOX result reviewed Actively participated in the group discussion with the topic of: Starting Over: The Power of Rebuilding Yourself Patient has medications in a locked box and has VNA dispensing medications at home Following staff present at the visit: Team ADILSON JACK Physician, Visual And Stock Associate, Clinician, and Panel Cutter Opportunities provided to address individual medical/medication/BH concern Review of Systems Psychiatric/Behavioral: Negative for [...] Description 11/27/2024 9:00 AM EDT Office Visit [facility] MEDICINE [address] [place] [address] Alexander Jones MD [address] [place] [address] 12/04/2024 9:00 AM EDT Office Visit [address] [address] Alexander Jones MD [address] [place] [address] 01/28/2025 10:00 AM EDT Office Visit [facility] MEDICINE [address] [place] [address] Vince Lockhart MD [address] [place] [address] documented as of this encounter Goals Goal Patient Goal Type Associated Problems Recent Progress Patient-Stated? Author Patient will adhere to medication regimen General On track( 025 3:09 PM EST) Osiel Vargas, Castro Note: Difficulty with taking medications daily due to no desire Increase coping skills to promote long-term recovery and improve ability to perform daily activities General On track( 5:09 PM EDT) No Georgina Ann RN documented as of this encounter Procedures Procedure Name Priority Date/Time Associated Diagnosis Comments POCT MARIA ANTONIA-14 URINE DRUG SCREEN Routine 11/20/2024 9:33 AM EDT Uncomplicated opioid dependence (CMS/HCC) documented in this encounter Results * POCT MARIA ANTONIA-14 Urine Drug Screen (11/20/2024 9:33 AM EDT) THC Negative Cocaine Screen, Urine Negative Opiate [...] procedure / Unknown 11/20/2024 9:33 AM EDT Alexander Jones MD POINT OF CARE TEST ENTER/EDIT OR DERABLES Final Result documented in this encounter Visit Diagnoses Diagnosis Uncomplicated opioid dependence (CMS/HCC)- Primary documented in this encounter Additional Health Concerns Assessment Noted Time PHQ-9 Depression Total Score: 4 07/02/20 24 10:58 AM EST documented as of this encounter Care Teams Magazine Hand Relationship Specialty Start Date End Date Vince Lockhart MD [address] [place] [address] PCP - General Internal Medicine 04/10/14 [facility] 12/29/23 documented as of this encounter
--- OUTSIDE RECORDS SUMMARY | 2024-11-21 12:45 | XMS_ITS | Encounter Summary ---
Author Organization [employer] Address [address] [facility] 7t [place] [address] Care Team Providers Care Long Term Acute Care Registered Nurse Name Role Phone Vince Lockhart MD Primary Care Provide r Osiel Mendez PharmD Unavailable [phone] Reason for Visit * Reason Onset Date Comments REQUEST FOR STATE'S ATTORNEY REFERRAL 07/26/2022 I hernandez d regarding the pt's request for a referral for STATE'S ATTORNEY services. He needs to state what ADL's he needs assistance with. There was no answer, and I reached a recording stating that the person's mailbox is full. I was unable to leave a msg. Encounter Details Date Type Department Care Team (Late st Contact Info) Description 07/26/2022 Telephone [facility] MEDICINE [address] [place] [address] Vince Lockhart MD [address] [place] [address] REQUEST FOR STATE'S ATTORNEY REFERRAL (I called regarding the pt's request for a referral for STATE'S ATTORNEY services. He needs to state what ADL's [...] 11/27/2024 9:00 AM EDT Office Visit [address] [address] Alexander Jones MD [address] [place] [address] 12/04/2024 9:00 AM EDT Office Visit [address] [address] Alexander Jones MD [address] [place] [address] [phone] 01/28/2025 10:00 AM EDT Office Visit [address] [address] Vince Lockhart MD [address] [place] [address] documented as of this encounter Visit Diagnoses Not on filedocumented in this encounter Care Teams Long Term Acute Care Registered Nurse Relationship Specialty Start Date End Date Vince Lockhart MD [address] [place] [address] PCP - General Internal Medicine 04/10/14 Osiel Mendez PharmD [address] [place] [address] Pharmacist Internal Medicine 12/19/22 06/11/23 [facility] 12/29/23 documented as of this encounter
--- OUTSIDE RECORDS SUMMARY | 2024-11-21 12:45 | XMS_ITS | Encounter Summary ---
Author Organization [employer] Address [address] [facility] 7t [place] [address] Care Team Providers Care Forensic Structural Engineer Name Role Phone Vince Lockhart MD Primary Care Provide r Osiel Mendez PharmD Unavailable [phone] Reason for Visit * Reason Onset Date Comments triage 10/03/2022 Encounter Details Date Type Department Care Team ([facility] st Contact Info) Description 10/03/2022 Telephone [facility] MEDICINE [address] [place] [address] Vince Lockhart MD [address] [place], [place] [phone] triage Social History Tobacco Use Types Packs/Day [...] requires assisted transportation. Is unable to access [facility] as he has no car and no [...] now The caller accepted this outcome speaks north korean. documented in this encounter Plan of Treatment Upcoming Encounters Date Type Department Care Team (Late st Contact Info) Description 11/27/2024 9:00 AM EDT Office Visit [facility]ICINE [address] [place] [address] Alexander Jones MD [address] [place] [address] 12/04/2024 9:00 AM EDT Office Visit [facility] [address] [place] [address] Alexander Jones MD [address] [place] [address] 01/28/2025 10:00 AM EDT Office Visit [facility] [address] [place] [address] Vince Lockhart MD [address] [place] [address] documented as of this encounter Visit Diagnoses Not on filedocumented in this encounter Care Teams Forensic Structural Engineer Relationship Specialty Start Date End Date Vince Lockhart MD [address] [place] [address] PCP - General Internal Medicine 04/10/14 Osiel Mendez PharmD [address] [place] [address] Pharmacist Internal Medicine 12/19/22 06/11/23 [facility] 12/29/23 documented as of this encounter
--- OUTSIDE RECORDS SUMMARY | 2024-11-21 12:45 | XMS_ITS | Encounter Summary ---
Author Organization [employer] Address [address] [facility] 7t [place] [address] Care Team Providers Care Brake Reliner Name Role Phone Vince Lockhart MD Primary Care Provide r Osiel Mendez PharmD Unavailable [phone] Reason for Visit * Reason Comments Med Refill Encounter Details Date Type Department Care Team (Late st Contact Info) Description 10/05/2022 Refill [facility]INE [address] [place], [place] [phone] Vince Lockhart MD [address] [place], [place] [phone] Depressive disorder Social History Tobacco Use Types [...] 9:00 AM EDT Office Visit [facility] [address] [place], [place] [phone] Alexander Jones MD [address] [place] [address] 12/04/2024 9:00 AM EDT Office [address] [place] [address] [facility] [place] [address] 01/28/2025 10:00 AM EDT Office Visit [address] [place] [address] Vince Lockhart [facility] [place] [address] documented as of this encounter Visit Diagnoses Diagnosis Depressive disorder Depressive disorder, not elsewhere classified documented in this encounter Care Teams Brake Reliner Relationship Specialty Start Date End Date Vince Lockhart MD [facility] [address] PCP - General Internal Medicine 04/10/14 Osiel Mendez PharmD [address] [place], [place] [address] [address] Pharmacist Internal Medicine 12/19/22 06/11/23 [facility] 12/29/23 documented as of this encounter
--- OUTSIDE RECORDS SUMMARY | 2024-11-21 12:45 | XMS_ITS | Encounter Summary ---
Author Organization [employer] Address [address] [facility] 7t [place] [address] Care Team Providers Care Qa Tester Name Role Phone Vince Lockhart MD Primary Care Provide r Osiel Mendez PharmD Unavailable [phone] Reason for Visit * Reason Comments Med Refill Encounter Details Date Type Department Care Team ([facility] st Contact Info) Description 09/09/2022 Telephone [facility] MEDICINE [address] [place], [place] [phone] Vince Lockhart MD [address] [place], [place] [phone] Med Refill Social History Tobacco Use Types [...] Description 11/27/2024 9:00 AM EDT Office Visit [facility]INE [address] [place] [address] Alexander Jones MD [address] [place] [address] 12/04/2024 9:00 AM EDT Office Visit [address] [address] Alexander Jones MD [address] [place] [address] 01/28/2025 10:00 AM EDT Office Visit [address] [address] Vince Lockhart MD [address] [place] [address] documented as of this encounter Visit Diagnoses Diagnosis Depressive disorder Depressive disorder, not elsewhere classified Difficulty sleeping Unspecified sleep disturbance documented in this encounter Care Teams Qa Tester Relationship Specialty Start Date End Date Vince Lockhart MD [address] [place] [address] PCP - General Internal Medicine 04/10/14 Osiel Mendez, PharmD [address] [place] [address] Pharmacist Internal Medicine 12/19/22 06/11/23 [facility] 12/29/23 documented as of this encounter
--- OUTSIDE RECORDS SUMMARY | 2024-11-21 12:45 | XMS_ITS | Encounter Summary ---
Author Organization [employer] Address [address] [facility] 7t [place] [address] Care Team Providers Care Sonoscope Operator Name Role Phone Vince Lockhart MD Primary Care Provide r Osiel Mendez PharmD Unavailable [phone] Encounter Details Date Type Department Care Team (Late st Contact Info) Description 01/12/2023 Abstract [facility] MEDICINE 230 [place], [place] [phone] Vince Lockhart MD [address] [place] [address] Social History Tobacco Use Types Packs/Day Years [...] Description 11/27/2024 9:00 AM EDT Office Visit [facility] [address] [place] [address] [place] [address] 12/04/2024 9:00 AM EDT Office Visit [address] [address] Alexander Jones MD [address] [place] [address] 01/28/2025 10:00 AM EDT Office Visit [address] [address] Vince Lockhart MD [address] [place] [address] documented as of this encounter Goals Goal [...] documented as of this encounter Care Teams Sonoscope Operator Relationship Specialty Start Date End Date Vince Lockhart MD [address] [place] [address] PCP - General Internal Medicine 04/10/14 Osiel Mendez PharmD [address] [place] [address] Pharmacist Internal Medicine 12/19/22 06/11/23 [facility] 12/29/23 documented as of this encounter
--- OUTSIDE RECORDS SUMMARY | 2024-11-21 12:45 | XMS_ITS | Encounter Summary ---
Author Organization [employer] Address [address] [facility] 7t [place] [address] Care Team Providers Care Associate Technician Name Role Phone Vince Lockhart MD Primary Care Provide r Osiel Mendez PharmD Unavailable [phone] Encounter Details Date Type Department Care Team ([facility] st Contact Info) Description 03/01/2023 Telephone [facility] MEDICINE [address] [place], [place] [phone] Vince Lockhart MD [address] [place], [place] [phone] Social History Tobacco Use Types Packs/Day Years [...] Miscellaneous Notes * Telephone Encounter - Joanna Franz - 03/01/2023 10:37 AM EDT [place] with [facility] requesting a call from a nurse in regards to having conflict with another agency. Please contact wilson at [phone] documented in this encounter Plan of Treatment Upcoming Encounters Date Type Department Care Team (Late st Contact Info) Description 11/27/2024 9:00 AM EDT Office Visit [facility] MEDICINE [address] [place] [address] Alexander Jones MD [address] [place] [address] 12/04/2024 9:00 AM EDT Office Visit [address] [address] Alexander Jones MD [address] [place] [address] 01/28/2025 10:00 AM EDT Office Visit [address] [address] Vince Lockhart MD [address] [place] [address] documented as of this encounter Goals Goal [...] documented as of this encounter Care Teams Associate Technician Relationship Specialty Start Date End Date Vince Lockhart MD [address] [place] [address] [phone] PCP - General Internal Medicine 04/10/14 Osiel Mendez PharmD [address] [place] [address] Pharmacist Internal Medicine 12/19/22 06/11/23 [facility] 12/29/23 documented as of this encounter
--- OUTSIDE RECORDS SUMMARY | 2024-11-21 12:45 | XMS_ITS | Encounter Summary ---
Author Organization [employer] Address 75 [facility] 7t [place] [address] Care Team Providers Care Grey Washer Name Role Phone Vince Lockhart MD Primary Care Provide r Osiel Mendez PharmD Unavailable [phone] Encounter Details Date Type Department Care Team (Late st Contact Info) Description 10/03/2022 Abstract [facility] MEDICINE [address] [place] [address] Vince Lockhart MD [address] [place] [address] Social History Tobacco Use Types Packs/Day Years [...] Description 11/27/2024 9:00 AM EDT Office Visit [facility] [address] [place] [address] [phone] Alexander Jones MD 230 [place] [address] 12/04/2024 9:00 AM EDT Office Visit [facility] [place] [address] [place] [address] 01/28/2025 10:00 AM EDT Office Visit [facility] [place] [address] [place] [address] documented as of this encounter Visit Diagnoses Not on filedocumented in this encounter Care Teams Grey Washer Relationship Specialty Start Date End Date [place] [address] PCP - General Internal Medicine 04/10/14 Osiel Mendez, [place] [address] Pharmacist Internal Medicine 12/19/22 06/11/23 [facility] 12/29/23 documented as of this encounter
--- OUTSIDE RECORDS SUMMARY | 2024-11-21 12:45 | XMS_ITS | Encounter Summary ---
Author Organization [employer] Address 75 [facility] 7t [place] [address] Care Team Providers Care Financial Aid Advisor Name Role Phone Vince Lockhart MD Primary Care Provide r Osiel Mendez PharmD Unavailable [phone] Reason for Visit * Reason Comments Med Refill Encounter Details Date Type Department Care Team (Late st Contact Info) Description 10/11/2022 Refill [facility] MEDICINE 230 [place], [place] [phone] Vince Lockhart MD 230 [place], [place] [phone] Depressive disorder Social History Tobacco Use Types [...] 9:00 AM EDT Office Visit [facility] MED[facility]INE 230 [place], [place] [phone] Alexander Jones MD [address] [place] [address] 12/04/2024 9:00 AM EDT Office Visit [address] [place] [address] Alexander Jones MD [facility] [place] [address] 01/28/2025 10:00 AM EDT Office Visit [address] [place] [address] Vince Lockhart MD [facility] [place] [address] documented as of this encounter Visit Diagnoses Diagnosis Depressive disorder Depressive disorder, not elsewhere classified documented in this encounter Care Teams Financial Aid Advisor Relationship Specialty Start Date End Date Vince Lockhart MD [facility] [place] [address] PCP - General Internal Medicine 04/10/14 Osiel Mendez PharmD [address] [place], [place] [address] [address] Pharmacist Internal Medicine 12/19/22 06/11/23 [facility] 12/29/23 documented as of this encounter
== END 2024-11-21 11:44 | disposition home or self-care (01) ==
LOC: HO.PMC 11:14
PROVIDERS: PCP Internal Medicine; Visit Provider Nurse Practitioner Family
DX: M47.817 Spondylosis without myelopathy or radiculopathy, lumbosacral region (principal); M25.561 Pain in right knee; M25.562 Pain in left knee; M17.0 Bilateral primary osteoarthritis of knee; M51.369 Other intervertebral disc degeneration, lumbar region without mention of lumbar back pain or lower extremity pain
CPT/HCPCS: 99204

== ENCOUNTER → 2024-11-21 11:14 | Outpatient (BNVA) | payer MEDICAID, SELFPAY | PROVIDERS: PCP Internal Medicine; Visit Provider Nurse Practitioner Family | DX: M47.817 Spondylosis without myelopathy or radiculopathy, lumbosacral region (principal); M17.0 Bilateral primary osteoarthritis of knee; M51.360 Other intervertebral disc degeneration, lumbar region with discogenic back pain only; M25.561 Pain in right knee; M25.562 Pain in left knee | CPT/HCPCS: 99212 ==

== ENCOUNTER 2024-11-25 13:51 | Outpatient (AMB) | payer MEDICAID, SELFPAY ==
[2024-11-25 14:00] VITALS: BP 100/57; PULSE 92; O2SAT 94; BMI 24.5
--- NOTE | 2024-11-25 14:00 | A.OFFVIS_ITS ---
Vital Signs 11/25/24 14:00 Height 5 ft 4 in Weight 143 lb BMI 24.5 BP 100/57 L Blood Pressure Location Rt brachial Position Sitting Pulse 92 Pulse Source Doppler Pulse Oximetry (%) 94 Oxygen Delivery Method Room Air Intake Visit Reasons: COPD Dyed Yarn Operator Required: Yes Dyed Yarn Operator Name: Sheila VásquezNancyCarina Allergies ibuprofen Allergy (Intermediate, Verified 11/25/24 14:05) Stomach Upset penicillin V Allergy (Intermediate, Verified 11/25/24 14:05) rash HPI HPI COPD: Details: 59-year-old gentleman, recent 30+ pack-year smoker, followed for underlying moderate COPD, pulmonary nodules, and unrestful sleep/snoring. After the last office visit patient had repeat CT angio chest that showed resolution of his previously noted pulmonary emboli. He continues on duo nebs and albuterol MDI with good control of his symptoms. Today he does complain of mild exacerbation symptomatic with worsening dyspnea and cough productive of greenish sputum. Patient is also complaining of orthopnea and worsening lower extremity edema. [facility] Medical History Acute pain of right shoulder Chronic low back pain without sciatica Hepatitis C Cocaine abuse Opioid dependence Finger lesion Chronic anemia Migraine Routine medical exam Lung mass Suicidal ideation Polysubstance abuse Chronic back pain BPH (benign prostatic hyperplasia) Nicotine dependence Cannabis use disorder, moderate, dependence Cocaine use disorder Pulmonary nodules Emphysema of lung Anxiety Depression Asthma Surgical History Hx of cholecystectomy Social History Household Members: None Housing: Apartment Do you presently have visiting nurse or other home services: No Unable to assess alcohol history related to: Unknown Alcohol intake: current Alcohol intake frequency: former alcohol drinker Alc ohol type: beer Patient Tobacco Use Status: Current everyday Tobacco user Tobacco use type: Cigarette Cigarettes Per Day: 2 Years Smoked: many years e-Cigarette/Vaping Use: Never Used Second Hand Smoke Exposure: No Substance Use Type: Crack/Cocaine and Marijuana Advance Directives Date on File: 01/18/23 service: No Current occupational status: unemployed Current occupation: right hand dominant Sexual orientation: Straight/Heterosexual Review of Systems Const Denies daytime sleepiness, Denies excessive sweating, Denies fatigue, Denies fever(s), Denies lethargy, Denies malaise, Denies night sweats, Denies snoring and Denies weight loss Eyes Denies blurry vision and Denies itchy eyes ENT Denies nasal congestion, Denies post nasal drip, Denies sinus pain, Denies sinus pressure and Denies other ( Thrush) Card Denies chest pain, Reports pedal edema, Denies dyspnea, Reports orthopnea and Denies paroxysmal nocturnal dyspnea Resp Reports cough, Denies hemoptysis, Reports excessive phlegm production, Denies dyspnea, Denies snoring and Denies wheezing GI Denies abdominal pain and Denies heartburn Musc Denies myalgias, Denies arthralgias and Denies joint swelling Skin/Breast Denies rash Neuro Denies memory loss and Denies seizure-like activity Psych Denies abnormal sleep pattern, Denies anxiety and Denies memory loss Endo Denies excessive sweating, Denies fatigue and Denies heat intolerance Alexei/Lymph Denies easy bruising Aller/Immun Denies itchy eyes, Denies seasonal rhinorrhea and Denies wheezing Physical Exam Vital Signs: Last Vital Signs Pulse 92 11/25/24 14:00 BP 100/57 L 11/25/24 14:00 Pulse Ox 94 11/25/24 14:00 Oxygen Delivery Method Room Air 11/25/24 14:00 BMI result Body Mass Index 24.5 Const General: no acute distress and alert Nutritional Appearance: not obese Orientation/consciousness: Other orientation findings ( oriented) HEENT Head: Yes atraumatic Eyes General: appearance normal, both eyes and all related structures Sclerae: sclerae normal EOM: EOMs intact bilaterally Neck Neck: Yes supple Lymphatic: no lymphadenopathy noted Resp Effort & Inspection: normal respiratory effort and no use of accessory muscles Auscultation: clear to auscultation bilaterally Cardio Rate: regular rate Rhythm: regular rhythm Heart sounds: no gallops, no murmurs and no rubs Skin General skin exam: other ( warm) Extrem General: No clubbing, No cyanosis and Yes edema (1+ bilateral) Assessment & Plan Assessment & Plan (1) COPD (chronic obstructive pulmonary disease): Code(s): J44.9 - Chronic obstructive pulmonary disease, unspecified Category: Medical Plan: Well controlled on current regimen of Symbicort, duo nebs, and albuterol MDI. Continue current regimen. Now with mild exacerbation, will treat with a course of azithromycin. (2) Pulmonary nodules: Code(s): R91.8 - Other nonspecific abnormal finding of lung field Category: Medical Plan: Small left-sided pulmonary nodules, continue with yearly screening CT chest, next in July of 2025. (3) Orthopnea: Code(s): R06.01 - Orthopnea Category: Medical Plan: With worsening lower extremity edema and orthopnea, will start on Lasix 20 mg daily. Medications: New furosemide 20 mg PO QAM 30 tabs 6RF azithromycin For 250 mg dose pack: take 500 mg today (day 1), then 250 mg for 4 days (days 2-5) PO 6 tabs 0RF Coding Level of Care Code Est Pt Level 4 (37106) Complex EM visit Add On G2211 Diagnoses COPD (chronic obstructive pulmonary disease) J44.9 Pulmonary nodules R91.8 Orthopnea R06.01
--- OUTSIDE RECORDS SUMMARY | 2024-11-25 14:08 | XMS_ITS | Encounter Summary ---
Author Organization [employer] Address [address] [facility] 7t [place] [address] Care Team Providers Care Matcher Leather Parts Name Role Phone Vince Lockhart MD Primary Care Provide r Reason for Visit * Reason Comments Med Refill Encounter Details Date Type Department Care Team ([facility] st Contact Info) Description 08/21/2024 Refill [facility] MEDICINE [address] [place], [place] [phone] Vince Lockhart MD 230 [place], [place] [phone] Social History Tobacco Use Types Packs/Day Years [...] Description 11/27/2024 9:00 AM EDT Office Visit [address] [address] Alexander Jones MD [address] [place] [address] 12/04/2024 9:00 AM EDT Office Visit [address] [address] Alexander Jones MD [address] [place] [address] 01/28/2025 10:00 AM EDT Office Visit [address] [address] Vince Lockhart MD [address] [place] [address] documented as of this encounter Goals Goal [...] documented as of this encounter Care Teams Matcher Leather Parts Relationship Specialty Start Date End Date Vince Lockhart MD [address] [place] [address] PCP - General Internal Medicine 04/10/14 [facility] [place] 12/29/23 documented as of this encounter
--- OUTSIDE RECORDS SUMMARY | 2024-11-25 14:08 | XMS_ITS | Encounter Summary ---
Author Organization [employer] Address [address] [facility] 7t [place] [address] Care Team Providers Care Check Clerk Name Role Phone Vince Lockhart MD Primary Care Provide r Osiel Mendez PharmD Unavailable [phone] Reason for Visit * Reason Onset Date Comments Medication Question 03/21/2023 Encounter Details Date Type Department Care Team ([facility] st Contact Info) Description 03/21/2023 Telephone [facility] MEDICINE [address] [place], [place] [phone] Vince Lockhart MD 230 [place], [place] [phone] Medication Question Social History Tobacco Use Types [...] PM EDT Telephone call placed to Adriana ([facility]). Explained that we are not prescribing controlled [...] 12:46 PM EDT Tc from Adriana at [facility] calling in regards to message above. States pt is planning on going to hospital due to lack of pain control. Please contact adriana at [phone] * Telephone Encounter - Chioma Frank - 03/21/2023 12:28 PM EDT Tc from Adriana at [facility] requesting a call back, in regards to medication tramadol 50 mg. documented in this encounter Plan of Treatment Upcoming Encounters Date Type Department Care Team (Late st Contact Info) Description 11/27/2024 9:00 AM EDT Office Visit [facility] MEDICINE [address] [place] [address] Alexander Jones MD [address] [place], [place] [phone] 12/04/2024 9:00 AM EDT Office Visit [facility] [place] [address] [place] [address] 01/28/2025 10:00 AM EDT Office Visit [facility] [place] [address] Vince Lockhart MD [facility] [place] [address] documented as of this encounter Goals Goal [...] documented as of this encounter Care Teams Check Clerk Relationship Specialty Start Date End Date Vince [place] [address] PCP - General Internal Medicine 04/10/14 Osiel Mendez PharmD [facility] [place] [address] Pharmacist Internal Medicine 12/19/22 06/11/23 [facility] 12/29/23 documented as of this encounter
--- OUTSIDE RECORDS SUMMARY | 2024-11-25 14:08 | XMS_ITS | Encounter Summary ---
Author Organization [employer] Address [address] [facility] 7t [place] [address] Care Team Providers Care Fish House Worker Name Role Phone Vince Lockhart MD Primary Care Provide r Osiel Mendez PharmD Unavailable [phone] Reason for Visit * Reason Comments Med Refill Encounter Details Date Type Department Care Team (Late st Contact Info) Description 03/03/2023 Refill [facility] MEDICINE [address] [place] [address] Vince Lockhart MD 230 [place], [place] [phone] Depressive disorder; Difficulty sleeping Social History Tobacco [...] Description 11/27/2024 9:00 AM EDT Office Visit [facility] MEDICINE [address] [place] [address] Alexander Jones MD [place] [phone] 12/04/2024 9:00 AM EDT Office Visit [facility] [place] [address] Alexander Jones MD [place] [phone] 01/28/2025 10:00 AM EDT Office Visit [facility] [place] [phone] [place] [address] documented as of this encounter Goals Goal [...] as of this encounter Care Teams Fish House Worker Relationship Specialty Start Date End [place] [address] PCP - General Internal Medicine 04/10/14 [place] [address] Pharmacist Internal Medicine 12/19/22 06/11/23 [facility] 12/29/23 documented as of this encounter
--- OUTSIDE RECORDS SUMMARY | 2024-11-25 14:08 | XMS_ITS | Encounter Summary ---
Author Organization [employer] Address [address] [facility] 7t [place] [address] Care Team Providers Care Duplicator Punch Set Up Operator Name Role Phone Vince Lockhart MD Primary Care Provide r Osiel Mendez PharmD Unavailable [phone] Reason for Visit * Reason Comments Med Refill Encounter Details Date Type Department Care Team ([facility] st Contact Info) Description 06/02/2023 Refill [facility] MEDICINE 230 [place], [place] [phone] Vince Lockhart MD [address] [place], [place] [phone] Depressive disorder Social History Tobacco Use Types [...] 9:00 AM EDT Office Visit [facility] MEDICINE [address] [place] [address] Alexander Jones MD [address] [place] [address] 12/04/2024 9:00 AM EDT Office Visit [address] [address] Alexander Jones MD [address] [place] [address] 01/28/2025 10:00 AM EDT Office Visit [address] [address] Vince Lockhart MD [address] [place] [address] documented as of this encounter Goals Goal [...] documented as of this encounter Care Teams Duplicator Punch Set Up Operator Relationship Specialty Start Date End Date Vince Lockhart MD [address] [place] [address] PCP - General Internal Medicine 04/10/14 Osiel Mendez PharmD [address] [place] [address] Pharmacist Internal Medicine 12/19/22 06/11/23 [facility] 12/29/23 documented as of this encounter
--- OUTSIDE RECORDS SUMMARY | 2024-11-25 14:08 | XMS_ITS | Encounter Summary ---
Author Organization [employer] Address [address] [facility] 7t [place] [address] Care Team Providers Care Analog Circuit Designer Name Role Phone Vince Lockhart MD Primary Care Provide r Reason for Visit * Reason Comments Med Refill Encounter Details Date Type Department Care Team ([facility] st Contact Info) Description 09/21/2023 Refill [facility] MEDICINE 230 [place], [place] [phone] Vince Lockhart MD [address] [place], [place] [phone] Hospital discharge follow-up Social History Tobacco Use [...] AM EDT Office Visit [facility]INE [address] [place] [address] Alexander Jones MD [address] [place] [address] 12/04/2024 9:00 AM EDT Office Visit [address] [address] Alexander Jones MD [address] [place] [address] 01/28/2025 10:00 AM EDT Office Visit [address] [address] Vince Lockhart MD [address] [place] [address] documented as of this encounter Goals Goal [...] documented as of this encounter Care Teams Analog Circuit Designer Relationship Specialty Start Date End Date Vince Lockhart MD [address] [place] [address] PCP - General Internal Medicine 04/10/14 [facility] 12/29/23 documented as of this encounter
--- OUTSIDE RECORDS SUMMARY | 2024-11-25 14:08 | XMS_ITS | Encounter Summary ---
Author Organization [employer] Address [address] [facility] 7t [place] [address] Care Team Providers Care Student Records Specialist Name Role Phone Vince Lockhart MD Primary Care Provide r Reason for Visit * Reason Comments Med Refill Encounter Details Date Type Department Care Team ([facility] st Contact Info) Description 11/27/2023 Refill [facility] MEDICINE 230 [place], [place] [phone] Vince Lockhart MD [address] [place], [place] [phone] Social History Tobacco Use Types Packs/Day Years [...] Description 11/27/2024 9:00 AM EDT Office Visit [address] [address] Alexander Jones MD [address] [place] [address] 12/04/2024 9:00 AM EDT Office Visit [address] [address] Alexander Jones MD [address] [place] [address] 01/28/2025 10:00 AM EDT Office Visit [address] [address] Vince Lockhart MD [address] [place] [address] documented as of this encounter Goals Goal [...] documented as of this encounter Care Teams Student Records Specialist Relationship Specialty Start Date End Date Vince Lockhart MD 230 [place] [address] PCP - General Internal Medicine 04/10/14 [facility] 12/29/23 documented as of this encounter
--- OUTSIDE RECORDS SUMMARY | 2024-11-25 14:08 | XMS_ITS | Encounter Summary ---
Author Organization [employer] Address [address] [facility] 7t [place] [address] Care Team Providers Care Meter Installer And Remover Name Role Phone Vince Lockhart MD Primary Care Provide r Osiel Mendez PharmD Unavailable [phone] Reason for Visit * Reason Onset Date Comments Med Refill 05/16/2023 Encounter Details Date Type Department Care Team ([facility] st Contact Info) Description 05/16/2023 Telephone [facility] MEDICINE [address] [place], [place] [phone] Vince Lockhart MD 230 [place], [place] [phone] Med Refill Social History Tobacco Use Types [...] your housing situation today? I have mehul getnile 04/23/[address] you li [...] - 05/16/2023 12:54 PM EDT Tc from [facility] requesting med refill on; clonazePAM (KlonoPIN) 0.5 MG tablet documented in this encounter Plan of Treatment Upcoming Encounters Date Type Department Care Team (Late st Contact Info) Description 11/27/2024 9:00 AM EDT Office Visit [facility] MEDICINE [address] [place] [address] Alexander Jones MD [address] [place] [address] 12/04/2024 9:00 AM EDT Office Visit [facility] MEDICINE [address] [place] [address] Alexander Jones MD [address] [place] [address] 01/28/2025 10:00 AM EDT Office Visit [address] [address] Vince Lockhart MD [address] [place] [address] documented as of this encounter Goals Goal [...] documented as of this encounter Care Teams Meter Installer And Remover Relationship Specialty Start Date End Date Vince Lockhart MD [address] [place] [address] PCP - General Internal Medicine 04/10/14 Osiel Mendez, Castro [address] [place] [address] Pharmacist Internal Medicine 12/19/22 06/11/23 [facility] 12/29/23 documented as of this encounter
--- OUTSIDE RECORDS SUMMARY | 2024-11-25 14:08 | XMS_ITS | Encounter Summary ---
Author Organization [employer] Address [address] [facility] 7t [place] [address] Care Team Providers Care Motion Graphics Designer Name Role Phone Vince Lockhart MD Primary Care Provide r Osiel Mendez PharmD Unavailable [phone] Reason for Visit * Reason Comments Med Refill Encounter Details Date Type Department Care Team (Late st Contact Info) Description 03/14/2023 Refill [facility] MEDICINE 230 [place] [address] Vince Lockhart MD 230 [place] [address] Pulmonary emphysema, unspecified emphysema type (CMS/HCC) Social [...] Description 11/27/2024 9:00 AM EDT Office Visit [facility] [place] [address] [place] [address] 12/04/2024 9:00 AM EDT Office Visit [facility] [place] [address] [place] [address] 01/28/2025 10:00 AM EDT Office Visit [facility] [place] [phone] [place] [address] documented as of this encounter Goals Goal [...] documented as of this encounter Care Teams Motion Graphics Designer Relationship Specialty Start Date End Date [place] [address] PCP - General Internal Medicine 04/10/14 Osiel Mendez, [place] [address] Pharmacist Internal Medicine 12/19/22 06/11/23 [facility] 12/29/23 documented as of this encounter
--- OUTSIDE RECORDS SUMMARY | 2024-11-25 14:08 | XMS_ITS | Clinical Summary ---
Author Organization [employer] Address [address] [facility] [address] [place] [address] Care Team Providers Care Dobby Loom Weaver Name Role Phone Vince Lockhart MD Primary [...] AT BEDTIME FOR SLEEP. 30 tablet 024 Active mirtazapine (Remeron) 30 MG tabletIndications :Depressive [...] 8/2mg BID regimen. 7 Film 025 2024 Active Buprenorphine HCl-Naloxone HCl (Suboxone) 8-2 MG SL filmIndications:U ncomplicated opioid dependence (CMS/HCC) Place 1 Film under the tongue 2 times daily for 7 days. Suboxone 4mg/1mg SL daily added to the 8/2mg BID regimen. Do not start before November 27, 2024. 14 Film 025 2024 Active QUEtiapine [...] November 20, 2024. 7 Film 025 2024 Discontinued(R eorder (will not trigger notification to Pharmacy)) Buprenorphine HCl-Naloxone HCl (Suboxone) 8-2 MG SL filmIndications:U ncomplicated opioid dependence (CMS/HCC) Place 1 Film under the tongue 2 times daily for 7 days. Suboxone 4mg/1mg SL daily added to the 8/2mg BID regimen. Do not start before November 20, 2024. 14 Film 025 2024 Discontinued(R eorder (will not trigger notification to Pharmacy)) buprenorphine-nal oxone (Suboxone) 4-1 MG per sublingual filmIndications:U ncomplicated opioid dependence (CMS/HCC) Place 1 Film under the tongue Once per day for 6 days. This is in addition to his 8/2mg BID regimen. 6 Film 025 2024 Discontinued(R eorder (will not trigger notification to Pharmacy)) Buprenorphine HCl-Naloxone HCl (Suboxone) 8-2 MG SL filmIndications:U ncomplicated opioid dependence (CMS/HCC) Place 1 Film under the tongue 2 times daily for 6 days. Suboxone 4mg/1mg SL daily added to the 8/2mg BID regimen. 12 Film 025 2024 Discontinued(R eorder (will not [...] positive. Under the care of Dr Gerber [employer] Gatherer kathleen greene 04/16/2024 who recommended Apixaban 5 mg po BID x 3 months and follow up with him. Pt reports compliance with it. Repeat CT 06/24/2024 showed: IMPRESSION: 1. No central or segmental pulmonary emboli. 2. Mild centrilobular emphysema. VTE: negative. Pneumonia due to infectious organism 01/09/2024 Assessment & Plan (01/09/2024 10:18 AM EDT): [place] [facility] [place] Acute hypoxic respiratory failure and COPD [...] chest x-ray for resolution We contacted his [employer] Products Gatherer Dr. Gerber. He was given an appointment for this Monday at 10:15 AM I contacted his VNA who will be arranging transportation for him. Obtain Plain x-ray of chest for f/u Pneumonia. Acute pain of right shoulder 01/09/2024 Assessment & Plan (01/09/2024 10:15 AM EDT): Seen at our [facility] 01/04/2024 Plain films showed: No acute finding. [...] PET CT , Pt referred back to [facility] Pulmonology for consideration of lung biopsy he is a patient of Dr. Gerber. While in the Hospital Pt had a repeat Chest CT 11/29/2023 ( [facility] [place] that showed: IMPRESSION: 1. Near complete [...] biopsy was aborted. Pt has appointment with [employer] Gat[employer]r Dr. Gerber this Monday at 10:15 AM [...] PET CT Ordered, Pt referred back to [facility] Pulmonology for consideration [...] Pt tells me has an appointment with [facility] for Behavioral health 09/26/2023 I have agreed [...] Pt tells me has an appointment with [facility] for Behavioral health next week, I have [...] him to harm himself. While in the [facility] he was found to be depressed [...] insomnia Pt apparently has an appointment with [facility] for Behavioral health on Monday, I have asked our Care management department to get involved since I am concerned pt is unable to navigate the system on his own. Chronic low back pain without sciatica Assessment & Plan (10/29/2024 10:08 AM EDT): [...] 3. Nonobstructing bilateral nephrolithiasis. Will refer to [facility] Pain Clinic Assessment [...] obtain MRI lumbar spine Will refer to [facility] Pain [facility] Assessment [...] services. PLAN: 1. Follow up with [facility]: Recommended for follow-up: during AUD clinic appt [...] seen by a therapist and psychiatrist at [facility]; awaiting follow-up appointments. gymnastic coach in place through [facility] as well as attending group on Monday mornings. Patient has information about [facility] and [facility]. At this time Augustin Vital [...] help PLAN: 1. Follow up with [facility]: Not recommended for follow-up 2. Patient goal is to remain sober 3. Behavioral Recommendations a. Comply with medication b. Attend groups c. Engage in therapy and psychiatry d. Utilize coach driver as a support e. May reach out to [facility] for additional support Assessment & Plan (10/03/2022 5:03 PM EDT): Sent to ED/section 12a form filled out. Called ambulance and [facility] ED for soft [...] Unclear current meds, no discharge summary from [facility] available. Spoke with [facility] crisis fixer supervisor Jaci And suggested to send to ED, Given high risk, I will section 12 him and call Ambulance for transport. Patient aware of POC Primary hypertension 08/01/2022 Overview (12/19/2022): Establishing CDTM care. BP is not of concern based [...] WNL. Pt was also referred to a marketing technology specialist to r/o hematologic conditions. vs anemia [...] WNL. Pt was also referred to a marketing technology specialist to r/o hematologic conditions. vs anemia of chronic disease. and to GI to r/o GIB. Pt did nto go to either. compliance is a major problem. Last CBC 06/03/2022 was unchanged. Preventative health care 08/01/2022 Assessment & Plan (10/29/2024 [...] control. - Seems patient got vivitrol from [facility]. But has naltrexone on file; message to be conveyed to AUD treatment team. Assessment & Plan (08/15/2022 12:33 PM EST): Colonoscopy: 01/08/2018 Normal 10 year f/u Finger lesion 08/01/2022 Assessment & Plan (08/15/2022 12:37 PM EST): Pt with a previously described small round hyperkeratotic lesion on his left index finger. initially evaluated at [facility] for consideration of excision. They recommended pt see a jd edwards developer. he was seen by a local jd edwards developer Dr Ortiz who recommended a plastic surgeon [...] 10:35 AM EDT): He was admitted to [facility] from 11/28-12/14 due to acute metabolic [...] and COPD exacerbation he was transferred to [facility] 12/16/2023 psychiatric siu where he remained until 12/28/2023 His medications were adjusted and once stable he was discharged. Pt today reports he feels good, is back at confucianism and feels much better. No concerns Assessment & Plan (07/04/2023 4:14 PM EST): Here after a recent Hospital admission where he was admitted for depression and underlying Bipolar disorder Assessment & Plan (04/18/2023 11:50 AM EDT): Patient here for a HDF admitted to [facility] from 04/01 until 04/03 presented via EMS for increased SOB. Admitted for COPD exacerbation, started on nebs, steroids, and cough medication. Discharged home on 2 more days of azithromycin, prednisone and codeine/guaifenesin for cough. ?? Patient was then admitted [place] [facility] [place] 04[place]05 until 04/07 with viral URI and COPD exacerbation. Treated with prednisone and azithromycin x 3 days. Given Breo, Spiriva and Duonebs prn. Patient improved and ambulated w/o difficulty. Discharged on 3 more days of prednisone, Spiriva, Symbicort and albuterol. Discharged home to f/u [facility] PCP. Pt was seen by pulmonology [...] HDF, recently admtted and discharged 02/24 from [facility] after he presented [...] 12 in the ED and admitted to [facility] from 06/21 to 07/08 for severe [...] stay. Patient discharged home to F/U with [facility]. ?Patient reports feeling ? better? since discharge. Using medications prescribed at discharge, and reports he is in need of refills. Patient gets help from nurse to administer medications. Patient reports having F/U with a counselor however reports that appointment is in [place] and reports interest in getting counselor or psych treatment at [facility]. Pulmonary emphysema 06/14/2022 Assessment & Plan (10/29/2024 [...] PET/CT or biopsy. I referred back to [facility]monology department since he is a patient [...] PET/CT or biopsy. I referred back to [facility] department since he is a patient of Buzz Barcenas and I ordered a PET-CT but this was not done ( pt was admitted to the Hospital ) Repeat Chest CT at [facility] showed: IMPRESSION: 1. Near complete resolution of [...] or biopsy. I have referred back to [facility] Pulmon[facility] department since he is a patient [...] he no showed Recently hospitalized 01/16/2023 at [facility] for COPD exacerbation [...] twice, no showed Recently hospitalized 01/16/2023 at [facility] for COPD exacerbation [...] [facility] tomorrow Recent test at [facility] 03/24/2023 was positive for Cocaine Patient was referred for our [facility] Cocaine support group. I had a explained to patient that he is not a good candidate for Narcotics given his Hx of substance abuse and active use of Cocaine Assessment & Plan (03/28/2023 1:01 PM EDT): Previous visit he told me he was not using Recent test at [facility] 03/24/2023 was positive [...] Plan (02/07/2023 12:55 PM EDT): Admitted to [facility] 01/16/2023 for COPD exacerbation in the setting of ongoing cocaine abuse Pt referred to the [facility] Assessment & Plan (10/03/2022 5:03 [...] EDT): I spoke with pt's VNA from [facility] . Pt is already scheduled to see [...] intervention, Augustin agreed. Patient has Psychiatrist at [facility] but his VNA adriana has not been able to contact him to inform that he run out of his Klonopin. Crisis was made aware of this matter. At this time Augustin Amanuel meets criteria for Visit Diagnoses: Problem List Items Addressed This Visit Other 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 without prior episode (CMS/HCC) Suicidal ideation Substance-related disorder (CMS/HCC) Patient ready to address current needs Yes Strengths include Augustin knows were to go to obtain help. PLAN: 1. Follow up with [facility]: Recommended for follow-up: during OBAT appt 2. Patient goal is to imporve mental health and become sober 3. Behavioral Recommendations a. Crisis Evaluation b. Taking Psych meds as prescribed c. Keeping in touch with [facility] and [facility] Assessment & Plan (04/04/2023 4:02 PM EDT): Patient here for a follow up He has a VNA from [facility] . He was supposed to see a [...] and others were modified. Previously admitted to [facility] from 06/21 to 07/08 for severe depression with SI and planned to OD on pills. Patient reported his son was murdered and he fell into deep depression, and relapsed to using cocaine daily. Assessment & Plan (03/07/2023 1:41 PM EDT): Patient here for a follow up I spoke with pt's DAREK from [facility] . Pt is already scheduled to see [...] to miss his appointments Previously admitted to [facility] from 06/21 to 07/08 for severe depression with SI and planned to OD on pills. Patient reported his son was murdered and he fell into deep depression, and relapsed to using cocaine daily. Assessment & Plan (02/07/2023 12:59 PM EDT): Patient here for a follow up Previously admitted to [facility] from 06/21 to 07/08 for severe [...] he was seeing Dr Jeffery Harkins in [place] The recommendation from [facility] is that once patient was stable [...] tells me has a follow up at [facility] on 08/17/2022 at 1:30 PM was also sectioned 12 in the ED and admitted to [facility] from 06/21 to 07/08 for severe [...] of his stay. Patient discharged home to /U with [facility]. Prior to this admission pt told me he was seeing Dr Jeffery Harkins in [place] Prior to his admission he was on a lower dose of Seroquel (300 mg at bedtime plus 100 mg at bedtime). He was also on a higher dose of Mirtazapine of 30 mg at bedtime, Paxil 30 mg at HS and Klonopin 1 mg BID prescribed by Dr Jeffery Harkins. The recommendation from [facility] is that once patient was stable on Venlafaxine 75 to taper him off Mirtazapine and Klonopin. Plan: DC Paxil, Lower Klonopin to 0.5 mg po BID PRN x 1 month then every day x 1 month then every other day until DC Encounters Date Type Department Care Team Description 11/25/2024 Refill [facility] [place] [address] Georgina Ann RN Uncomplicated opioid dependence ([facility]/HCC) 11/22/2024 Orders Only [facility] [place] [address] Georgina Ann RN Uncomplicated opioid dependence ([facility]/HCC) 11/22/2024 Refill [facility] [place] [address] Alexander Jones MD Uncomplicated opioid dependence ([facility]) 11/20/2024 9:00 AM EDT Office [place] [place] [address] Alexander Jones MD Uncomplicated opioid dependence ([facility]/HCC) (Primary Dx) 11/20/2024 Travel 11/18/2024 Refill [facility] [place] [address] Georgina Ann RN Uncomplicated opioid dependence ([facility]/HCC) 11/18/2024 Telephone [place] [place] [address] Vince Lockhart MD Durable Medical Equipment 11/13/2024 9:00 AM EDT Office Visit [facility] [place] [address] Alexander Jones MD Opioid type dependence, continuous ([facility]/HCC) (Primary Dx) 11/13/2024 Travel 11/11/2024 Refill [facility] [place] [address] Vince Lockhart MD 11/08/2024 Refill [facility] [place] [address] Georgina Ann RN Uncomplicated opioid dependence (CMS/HCC) 11/06/2024 9:00 AM EDT Clinical Support [facility] [place] [address] Georgina Ann RN Opioid type dependence, continuous (CMS/HCC) (Primary Dx) 11/06/2024 Travel 11/05/2024 Refill [facility] [place] [address] Georgina Ann RN Uncomplicated opioid dependence (CMS/HCC) 10/29/2024 10:00 AM EDT Office Visit [facility] [address] [place] [address] Vince Lockhart MD Cocaine abuse (CMS/HCC) (Primary Dx); Kidney stone; Chronic midline low back pain without sciatica; Pulmonary emphysema, unspecified emphysema type (CMS/HCC); Preventative health care; Primary hypertension; Bipolar affective disorder, currently depressed, moderate (CMS/HCC) 10/29/2024 Travel 10/23/2024 9:00 AM EDT Office Visit [facility] [place] [address] Alexander Jones MD Uncomplicated opioid dependence (CMS/HCC) (Primary Dx) 10/23/2024 Travel 10/18/2024 Refill [facility] [place] [address] Vince Lockhart MD Cocaine abuse (CMS/HCC) 10/17/2024 Refill [facility] [place] [address] Georgina Ann RN Uncomplicated opioid dependence (CMS/HCC) 10/15/2024 Patient Outreach [facility] [place] [address] Vince Lockhart MD Care Coordination ([facility]W outreach for SDOH PT-1 and food needs-referral completed /) 10/15/2024 Patient Outreach [place] [place] [address] Vince Lockhart MD Pre-visit Planning (SDOH Screening positive and Tobacco screening negative) 10/10/2024 Refill [facility] [address] [place] [address] Vince Lockhart MD Pulmonary emphysema, unspecified emphysema type (CMS/HCC) 10/10/2024 Refill [facility] [address] [facility] [place] [address] Felicia Hdz ANP Pulmonary emphysema, unspecified emphysema type (CMS/HCC) 10/09/2024 9:00 AM EDT Office Visit [facility] [address] [facility] [place] [address] Alexander Jones MD Opioid type dependence, continuous (CMS/HCC) (Primary Dx) 10/09/2024 Refill [facility] [address] [facility] [place] [address] Georgina Ann RN Uncomplicated opioid dependence (CMS/HCC); Substance-related disorder (CMS/HCC) 10/09/2024 Telephone [facility] [address] [place] [address] Vince Lockhart MD Chart Prep 10/09/2024 Travel 10/07/2024 Refill [facility] [address] [place] [address] Georgina Ann RN Uncomplicated opioid dependence (CMS/HCC) 10/04/2024 Refill [facility] [address] [place] [address] Georgina Ann RN Uncomplicated opioid dependence (CMS/HCC); Substance-related disorder (CMS/HCC) 09/30/2024 Refill [facility] [address] [facility] [place] [address] Georgina Ann RN Uncomplicated opioid dependence (CMS/HCC); Substance-related disorder (CMS/HCC) 09/30/2024 Refill [facility] [address] [place] [address] Georgina Ann, GUERO Uncomplicated opioid dependence (CMS/HCC) 09/27/2024 Population Health Risk Score Community [facility] ([facility] Department [address] [place] [phone] Provider, Population Health Generic 09/26/2024 Refill [facility] [address] [facility] [place] [address] Vince Lockhart MD 09/25/2024 9:00 AM EDT Office Visit [facility] [address] [place] [address] Alexander Jones MD Opioid type dependence, continuous ([facility]/HCC) (Primary Dx) 09/25/2024 Travel 09/24/2024 Telephone [facility] [address] [place] [address] Vince Lockhart MD Call Back Request; Durable Medical Equipment 09/23/2024 Refill [facility] [address] [place] [address] Vince Lockhart MD Nausea and vomiting, unspecified vomiting type 09/20/2024 Refill [facility] [address] [place] [address] Vince Lockhart MD 09/18/2024 Refill [facility] [address] [place] [address] Georgina Ann RN Uncomplicated opioid dependence ([facility]); Substance-related disorder (CMS/HCC) 09/16/2024 Refill [facility] [address] [place] [address] Vince Lockhart MD Mixed hyperlipidemia 09/11/2024 9:00 AM EST Office Visit [facility] [place] [address] Alexander Jones MD Uncomplicated opioid dependence ([facility]/HCC) (Primary Dx) 09/11/2024 Refill [facility] [address] [place] [address] Georgina Ann, RN Uncomplicated opioid dependence ([facility]/HCC) 09/11/2024 Refill [facility] [address] [place] [address] Vince Lockhart MD Cocaine abuse ([facility]/HCC) 09/11/2024 Telephone [facility] [address] [place] [address] Vince Lockhart MD Durable Medical Equipment 09/11/2024 Telephone [facility] [address] [place] [address] Vince Lockhart MD Results 09/11/2024 Travel 09/06/2024 Refill [facility] [address] [facility] [place] [address] Georgina Ann RN Uncomplicated opioid dependence (CMS/HCC) 09/04/2024 9:00 AM EST Clinical Support [facility] [place] [address] Georgina Ann RN Opioid type dependence, continuous (CMS/HCC) (Primary Dx) 09/04/[address] [address] Vince Lockhart MD Med Refill 09/04/2024 Travel 08/31/2024 Refill [facility] [place] [address] Vince Lockhart MD Depressive disorder; Bipolar affective disorder, currently depressed, moderate (CMS/HCC) 08/28/2024 9:00 AM EST Office Visit [address] [address] Alexander Jones MD Uncomplicated opioid dependence (CMS/HCC) (Primary Dx) 08/28/2024 Refill [facility] [place] [address] Georgina Ann RN Uncomplicated opioid dependence (CMS/HCC) 08/28/2024 Patient Outreach [address] [address] Vince Lockhart MD Care Coordination (CHW outreach for SDOH PT-1 and food needs-referral completed /) 08/28/2024 Travel 08/28/[address] [address] Vince Lockhart MD PT-1 from Last 3 Months Immunizations Name Administration [...] Description 11/27/2024 9:00 AM EDT Office Visit [address] [address] Alexander Jones MD [address] [place] [address] 12/04/2024 9:00 AM EDT Office Visit [address] [address] Alexander Jones MD [address] [place] [address] 01/28/2025 10:00 AM EDT Office Visit [address] [address] Vince Lockhart MD [address] [place] [address] Health Maintenance Due Date Last Done Comments [...] track( 025 5:09 PM EDT) Georgina Cameron, lumber sorter machine Procedure Name Priority Date/Time Associated Diagnosis Comments [...] EST Narrative 09/09/2024 3:52 PM EST ? [facility] ?[address] ?[place] [address] ? Ultrasound Report ? Signed ? Patient: Augustin Vital ?MR#: [id number] ?? [id number] ? : 1965 ?Acct:[id number] ? Age/Sex: 59 / M ?ADM Date: 09/06/24 ? Loc: HO.US ? Attending Dr: Vince Doran MD ? Ordering Physician: Vince Doran MD ?? Date of Service: 09/06/24 ?? Procedure(s): US renal BI ?? Accession Number(s): [id number] ? cc: Vince Doran MD ? CLINICAL [...] DD/ 1550 ? TD/TT: 09/09/24 1550 ? Anesthesia Associate: ? Procedure Note Stefaniachidi, Image - 09/09/2024 [place] [address] Ultrasound Report Signed Patient: Loly Vital#: [id number] : 1965Acct:[id number] Age/Sex: 59 / MADM Date: 09/06/24 Loc: HO.US Attending Dr: Vince Doran MD Ordering Physician: Vince Doran MD Date of Service: 09/06/24 Procedure(s): US renal BI Accession Number(s): [id number] cc: Vince Doran MD CLINICAL HISTORY: renal [...] document has been electronically signed by: Radha Braun DO on 09/09/2024 15:50:41 Dictated By: Radha Braun MD Signed By: <Electronically signed by Radha Braun MD in OV> 09/09/241551 DD/ 49 TD/TT: 09/09/241549 Anesthesia Associate: Vince Avelar MD IMG US PROCEDURES Fin al Result * Hemoglobin A1c (08/21/2024 9:04 AM EST) Hemoglobin A1c 5.7 <6.0 % [facility] Comment:Hemoglobin A1C Refer ence Range Adults: 4.8 - 6.0 % Non diabetic: < 6.0 % Goal: < 7.0 %Additional Action Suggested: > 8.0 %Note: Hemoglobin A1c results are invalid for patients with abnormal amounts of HbF. Blood transfusions may impact the HbA1c concentration in the patient sample. Estimated Average Glucose 117 mg/dL [facility] Comment:eAG = Estimated ave rage glucose which is %A1C expressed asaverage glucose, using the formula of the [id number] Glucose study (ADAG), Diabetes Care, Vol.31,#8,Feb. 2007 Blood Venous blood specimen / Unknown 08/21/2024 9:04 AM EST 08/21/2024 10:51 AM EST Vince Avelar MD LAB BLOOD ORDERABLES Final Result [facility] [address] [place] [phone] * Lipid Panel, Standard (08/21/2024 9:04 AM EST) Triglycerides 65 <150 mg/dL [facility] Comment:Desirable Triglyceri de: less than 150 mg/dLBorderline High Triglyceride 150-199 mg/dLHigh Triglyceride: 200-499 mg/dLVery High Triglyceride: greater than or equal to 5OO mg/dL Cholesterol 137 <200 mg/dL [facility] Comment:Desirable Cholestero l: less than 200 mg/dLBorderline High Cholesterol: 200-239 mg/dLHigh Cholesterol: greater than 239 mg/dL LDL Cholesterol Calculated 74 <100 mg/dL [facility] Comment:Desirable LDL: less than 100 mg/dLNear Optimal/Above Optimal LDL: 110- 129 mg/dLBorderline High LDL: 130-159 mg/dLHigh LDL: 160-189 mg/dLVery High LDL: greater than or equal to 190 mg/dL HDL Cholesterol 50 >40 mg/dL [facility] Comment:Desirable HDL: great er than 40 mg/dL Note: This HDL assay may give artificially low results in patients with liver disease. Blood Venous blood specimen / Unknown 08/21/2024 9:04 AM EST 08/21/2024 10:51 AM EST Vince Avelar MD LAB BLOOD ORDERABLES Final Result Performing Organization Address [facility]/ZIP Co de Phone Number [facility] [address] [place] [phone] * (ABNORMAL) Hepatitis C Antibody with Reflex to HCV, RNA, Quantitative, Real- Time PCR (08/24/2023 2:22 PM EST) Hepatitis C Antibody Reactive( A) Nonreactive [facility] Comment:Presumptive evidence of antibodies to HCV. Blood Venous blood specimen / Unknown 08/24/2023 2:22 PM EST 08/24/2023 4:01 PM EST Alexander Jones MD LAB BLOOD ORDERABLES Final Resul t Performing Organization Address City/[facility]/ZIP Co de Phone Number [facility] [address] [place] [phone] * HIV-1/2 Antigen and Antibodies, Fourth Generation, with Reflexes (08/24/2023 2:22 PM EST) HIV AB/AG Nonreactive Nonreactive [facility] Comment:HIV-1 p24 Ag and/or HIV-1/HIV-2 Ab not detected.A test result that is nonreactive does not exclude thepossibility of exposure to or infection with HIV-1 and/orHIV-2. Nonreactive results in this assay for individualswith prior exposure to HIV-1 and/or HIV-2 may be due toantigen and antibody levels that are below the limit ofdetection of this assay.The Red RoverniVictoria Plumb HIV Ag/Ab Combo assay result andsupplemental assay results should be interpreted inconjunction with the patient's clinical presentation,history and other laboratory results. If the results areinconsistent with clinical evidence, additional testing issuggested to confirm the result. Blood Venous blood specimen / Unknown 08/24/2023 2:22 PM EST 08/24/2023 4:01 PM EST Alexander Jones MD LAB BLOOD ORDERABLES Final Resul t [facility] [address] [place] [phone] * Colonoscopy (01/08/2018) Colonoscopy Normal Normal 01/08/2018 Narrative Yulisa Cochran - 01/08/2018 9:39 AM EDT Recommended 10 year follow up ( per provider notes) Historical Provider HEALTH MAINTENANCE Edited Result - Final from Last 3 Months or Most Recently Relevant to Health Maintenance Insurance * Guarantor: Augustin Vital Account Type Relation to Patient Date of Phone Billing Address Personal/Family Self 1965 [address] [place] [address] [facility] Member Subscriber Plan / Payer (Ef fective 2023-Present) Name:Augustin Vital Relation to Subscriber:Self Name:Augustin Vital Payer ID:Not on file Group ID:Not on file Type:Medicaid Address: [facility] [id number] [place] [address] * Guarantor: Augustin Vital Account Type Relation to Patient Date of Phone Billing Address Dental Self 1965 [address] [place], [place] [facility] MEDICAID STAND ADULT Member Subscriber Plan / Payer (Ef fective 2023-Present) Name:Augustin Vital Relation to Subscriber:Self Name:Augustin Vital Payer ID:Not on file Group ID:Not on file Type:Not on file Address: [address] [place] [address] * Guarantor: Augustin Vital Account Type Relation to Patient Date of Phone Billing Address Personal/Family Self [address] [place], [place] * Guarantor: Augustin Vital Account Type Relation to Patient Date of Phone Billing Address Personal/Family Self [address] [place] [address] * Guarantor: Augustin Vital Account Type Relation to Patient Date of Phone Billing Address Personal/Family Self [address] [place], [place] Care Teams Dobby Loom Weaver Relationship Specialty Start Date End Date Vince Lockhart MD [address] [place] [address] PCP - General Internal Medicine 04/10/14 [facility] 12/29/23
--- OUTSIDE RECORDS SUMMARY | 2024-11-25 14:08 | XMS_ITS | Encounter Summary ---
Author Organization [employer] Address [address] [facility] 7t [place] [address] Care Team Providers Care Ceramics Teacher Name Role Phone Vince Lockhart MD Primary Care Provide r Osiel Mendez PharmD Unavailable [phone] Reason for Visit * Reason Comments Med Refill Encounter Details Date Type Department Care Team (Late st Contact Info) Description 03/07/2023 Refill [facility] MEDICINE [address] [place] [address] Vince Lockhart MD 230 [place] [address] Difficulty sleeping Social History Tobacco Use Types [...] 9:00 AM EDT Office Visit [facility] [place] [address] Alexander Jones MD [place] [phone] 12/04/2024 9:00 AM EDT Office Visit [facility] [place] [address] Alexander Jones MD [place] [phone] 01/28/2025 10:00 AM EDT Office Visit [facility] [place] [place] [phone] Vince Lockhart MD [place] [phone] documented as of this encounter Goals Goal [...] documented as of this encounter Care Teams Ceramics Teacher Relationship Specialty Start Date End [place] [address] PCP - General Internal Medicine 04/10/14 Osiel Mendez, [place] [address] Pharmacist Internal Medicine 12/19/22 06/11/23 [facility] 12/29/23 documented as of this encounter
--- OUTSIDE RECORDS SUMMARY | 2024-11-25 14:08 | XMS_ITS | Encounter Summary ---
Author Organization [employer] Address [address] [facility] 7t [place] [address] Care Team Providers Care Patternmaker Name Role Phone Vince Lockhart MD Primary Care Provide r Reason for Visit * Reason Onset Date Comments Error 10/20/2023 Encounter Details Date Type Department Care Team ([facility] st Contact Info) Description 10/20/2023 Telephone [facility] MEDICINE 230 [place], [place] [phone] Vince Lockhart MD 230 [place], [place] [phone] Error Social History Tobacco Use Types Packs/Day [...] Visit [facility] MEDICINE [address] [place] [address] Alexander Jones MD [address] [place] [address] 12/04/2024 9:00 AM EDT Office Visit [address] [address] Alexander Jones MD [address] [place] [address] 01/28/2025 10:00 AM EDT Office Visit [address] [address] Vince Lockhart MD [address] [place] [address] documented as of this encounter Goals Goal [...] as of this encounter Care Teams Patternmaker Relationship Specialty Start Date End Date Vince Lockhart MD [address] [place] [address] PCP - General Internal Medicine 04/10/14 [facility] 12/29/23 documented as of this encounter
--- OUTSIDE RECORDS SUMMARY | 2024-11-25 14:08 | XMS_ITS | Encounter Summary ---
Author Organization [employer] Address [address] [facility] 7t [place] [address] Care Team Providers Care Frog Farmer Name Role Phone Vince Lockhart MD Primary Care Provide r Reason for Visit * Reason Onset Date Comments PT-1 08/28/2024 Encounter Details Date Type Department Care Team ([facility] st Contact Info) Description 08/28/2024 Telephone [facility] MEDICINE 230 [place], [place] [phone] Vince Lockhart MD 230 [place], [place] [phone] PT-1 Social History Tobacco Use Types Packs/Day [...] Y/N: Yes Provider name or facility name: [facility] Facility Address: [address] [place] [address] Escort needed: Y/N: No Do you have a wheelchair: Y/N: No If yes- Manual or electric: N/A Visits: Once a week documented in this encounter Plan of Treatment Upcoming Encounters Date Type Department Care Team (Late st Contact Info) Description 11/27/2024 9:00 AM EDT Office Visit [facility] MEDICINE [address] [place] [address] Alexander Jones MD [address] [place] [address] 12/04/2024 9:00 AM EDT Office Visit [facility] MED[facility]INE [address] [place] [address] Alexander Jones MD [address] [place] [address] 01/28/2025 10:00 AM EDT Office Visit [facility] MEDICINE [address] [place] [address] Vince Lockhart MD [address] [facility] [place] [address] documented as of this encounter Goals Goal [...] documented as of this encounter Care Teams Frog Farmer Relationship Specialty Start Date End Date Vince Lockhart MD [facility] [address] PCP - General Internal Medicine 04/10/14 [facility] 12/29/23 documented as of this encounter
--- OUTSIDE RECORDS SUMMARY | 2024-11-25 14:08 | XMS_ITS | Encounter Summary ---
Author Organization [employer] Address [address] [facility] 7t [place] [address] Care Team Providers Care Lean Coach Name Role Phone Vince Lockhart MD Primary Care Provide r Osiel Mendez PharmD Unavailable [phone] Reason for Visit * Reason Onset Date Comments PT1 05/03/2023 Encounter Details Date Type Department Care Team ([facility] st Contact Info) Description 05/03/[address] [facility] MEDICINE 230 [place], [place] [phone] Vince Lockhart MD 230 [place], [place] [phone] PT1 Social History Tobacco Use Types Packs/Day [...] 05/08 Time: 11:30 am Visits: n/a Address: [address] [place] [address] Facility: [facility] Wheel Chair: no Planning Rn Needed: no preparation supervisor freezing location confirmed: [address] [place] [address] documented in this encounter Plan of Treatment Upcoming Encounters Date Type Department Care Team (Late st Contact Info) Description 11/27/2024 9:00 AM EDT Office Visit [facility] MEDICINE 230 [place] [address] Alexander Jones MD 230 [place] [address] 12/04/2024 9:00 AM EDT Office Visit [facility] [place] [address] [place] [address] 01/28/2025 10:00 AM EDT Office Visit [facility] [place] [address] Vince Lockhart MD [facility] [place] [address] documented as of this encounter Goals Goal [...] documented as of this encounter Care Teams Lean Coach Relationship Specialty Start Date End Date Vince [place] [address] PCP - General Internal Medicine 04/10/14 Osiel Mendez PharmD [facility] [place] [address] Pharmacist Internal Medicine 12/19/22 06/11/23 [facility] 12/29/23 documented as of this encounter
--- OUTSIDE RECORDS SUMMARY | 2024-11-25 14:08 | XMS_ITS | Encounter Summary ---
Author Organization [employer] Address [address] [facility] [address] 7t [place] [address] Care Team Providers Care Disaster Recovery Specialist Name Role Phone Vince Lockhart MD Primary Care Provide r Encounter Details Date Type Department Care Team ([facility] st Contact Info) Description 06/19/2023 Telephone [facility] MEDICINE 230 [place], [place] [phone] Vince Lockhart MD 230 [place], [place] [phone] Social History Tobacco Use Types Packs/Day Years [...] 9:00 AM EDT Office Visit [facility] MEDICINE [address] [place] [address] Alexander Jones MD [address] [place] [address] 12/04/2024 9:00 AM EDT Office Visit [address] [address] Alexander Jones MD [address] [place] [address] 01/28/2025 10:00 AM EDT Office Visit [address] [address] Vince Lockhart MD [address] [place] [address] documented as of this encounter Goals Goal [...] documented as of this encounter Care Teams Disaster Recovery Specialist Relationship Specialty Start Date End Date Vince Lockhart MD 230 [place] [address] PCP - General Internal Medicine 04/10/14 [facility] 12/29/23 documented as of this encounter
--- OUTSIDE RECORDS SUMMARY | 2024-11-25 14:08 | XMS_ITS | Encounter Summary ---
Author Organization [employer] Address [address] [facility] [address] 7t [place] [address] Care Team Providers Care Signaling Design Engineer Name Role Phone Vince Lockhart MD Primary Care Provide r Encounter Details Date Type Department Care Team (Late st Contact Info) Description 11/22/2024 Orders Only [facility] MEDICINE 230 [place] [address] Georgina Ann RN Uncomplicated opioid dependence (CMS/HCC) Social History [...] Upcoming Encounters Date Type Department Care Team ([facility] st Contact Info) Description 11/27/2024 9:00 AM EDT Office Visit [facility] MEDICINE [address] [place] [address] Alexander Jones MD [address] [place] [address] 12/04/2024 9:00 AM EDT Office Visit [address] [address] Alexander Jones MD [address] [place] [address] 01/28/2025 10:00 AM EDT Office Visit [address] [address] Vince Lockhart MD [address] [place] [address] documented as of this encounter Goals Goal [...] documented as of this encounter Care Teams Signaling Design Engineer Relationship Specialty Start Date End Date Vince Lockhart MD [address] [place] [address] PCP - General Internal Medicine 04/10/14 [facility] 12/29/23 documented as of this encounter
--- OUTSIDE RECORDS SUMMARY | 2024-11-25 14:08 | XMS_ITS | Encounter Summary ---
Author Organization [employer] Address 75 [facility] 7t [place] [address] Care Team Providers Care Pressure Tester Name Role Phone Vince Lockhart MD Primary Care Provide r Reason for Visit * Reason Comments Med Refill Encounter Details Date Type Department Care Team ([facility] st Contact Info) Description 11/22/2024 Refill [facility] MEDICINE 230 [place], [place] [phone] Alexander Jones MD 230 [place] [address] Uncomplicated opioid dependence (CMS/HCC) Social History Tobacco [...] 9:00 AM EDT Office Visit [facility] MEDICINE [address] [place] [address] Alexander Jones MD [address] [place] [address] 12/04/2024 9:00 AM EDT Office Visit [address] [address] Alexander Jones MD [address] [place] [address] 01/28/2025 10:00 AM EDT Office Visit [address] [address] Vince Lockhart MD [address] [place] [address] documented as of this encounter Goals Goal [...] track( 025 5:09 PM EDT) Georgina Cameron, GUERO documented as of this encounter Visit Diagnoses Diagnosis Uncomplicated opioid dependence (CMS/HCC) documented in this encounter Additional Health Concerns Assessment Noted Time PHQ-9 Depression Total Score: 4 07/02/20 24 10:58 AM EST documented as of this encounter Care Teams Pressure Tester Relationship Specialty Start Date End Date Vince Lockhart MD 230 [place] [address] PCP - General Internal Medicine 04/10/14 [facility] 12/29/23 documented as of this encounter
--- OUTSIDE RECORDS SUMMARY | 2024-11-25 14:08 | XMS_ITS | Encounter Summary ---
Author Organization [employer] Address [address] [facility] 7t [place] [address] Care Team Providers Care Check Out Cashier Name Role Phone Vince Lockhart MD Primary Care Provide r Osiel Mendez PharmD Unavailable [phone] Reason for Visit * Reason Onset Date Comments Nurse Triage 03/21/2023 Encounter Details Date Type Department Care Team (Late st Contact Info) Description 03/21/2023 Telephone [facility] MEDICINE 230 [place], [place] [phone] Vince Lockhart MD 230 [place], [place] [phone] Nurse Triage Social History Tobacco Use Types [...] 03/28/23. I do not see Ultram in [employer] med list but there is an older script in [facility] for Tramadol from 2013. I see pt. [...] - 03/21/2023 12:25 PM EDT Tc from [facility] Symptom: Back Pain - Not From Injury Outcome: Schedule an appointment to be seen within 3 days Reason: Caller denied all higher acuity questions The caller accepted this outcome Please call [phone] documented in this encounter Plan of Treatment Upcoming Encounters Date Type Department Care Team (Late st Contact Info) Description 11/27/2024 9:00 AM EDT Office Visit [facility] MEDICINE [address] [place] [address] Alexander Jones MD [address] [place] [address] 12/04/2024 9:00 AM EDT Office Visit [address] [address] Alexander Jones MD [address] [place] [address] 01/28/2025 10:00 AM EDT Office Visit [address] [address] Vince Lockhart MD [address] [place] [address] documented as of this encounter Goals Goal [...] as of this encounter Care Teams Check Out Cashier Relationship Specialty Start Date End Date Vince Lockhart MD [address] [place] [address] [phone] PCP - General Internal Medicine 04/10/14 Osiel Mendez PharmD [address] [place] [address] Pharmacist Internal Medicine 12/19/22 06/11/23 [facility] 12/29/23 documented as of this encounter
--- OUTSIDE RECORDS SUMMARY | 2024-11-25 14:08 | XMS_ITS | Encounter Summary ---
Author Organization [employer] Address [address] [facility] 7t [place] [address] Care Team Providers Care Guidance Adviser Name Role Phone Vince Lockhart MD Primary Care Provide r Reason for Visit * Reason Onset Date Comments Med Refill 09/30/2024 Encounter Details Date Type Department Care Team (Late st Contact Info) Description 09/30/2024 Refill [facility] MEDICINE 230 [place] [address] Georgina Ann, RN Uncomplicated opioid dependence (CMS/HCC) [...] Description 11/27/2024 9:00 AM EDT Office Visit [address] [address] Alexander Jones MD [address] [place] [address] 12/04/2024 9:00 AM EDT Office Visit [address] [address] Alexander Jones MD [address] [place] [address] 01/28/2025 10:00 AM EDT Office Visit [address] [address] Vince Lockhart MD [address] [place] [address] documented as of this encounter Goals Goal [...] documented as of this encounter Care Teams Guidance Adviser Relationship Specialty Start Date End Date Vince Lockhart MD 230 [place] [address] PCP - General Internal Medicine 04/10/14 [facility] 12/29/23 documented as of this encounter
--- OUTSIDE RECORDS SUMMARY | 2024-11-25 14:08 | XMS_ITS | Encounter Summary ---
Author Organization [employer] Address [address] [facility] 7t [place] [address] Care Team Providers Care Shellfish Dredge Operator Name Role Phone Vince Lockhart MD Primary Care Provide r Reason for Visit * Reason Onset Date Comments Med Refill 11/25/2024 Encounter Details Date Type Department Care Team (Late st Contact Info) Description 11/25/2024 Refill [facility] MEDICINE 230 [place] [address] Georgina Ann, RN Uncomplicated opioid dependence (CMS/HCC) [...] Description 11/27/2024 9:00 AM EDT Office Visit [address] [address] Alexander Jones MD [address] [place] [address] 12/04/2024 9:00 AM EDT Office Visit [address] [address] Alexander Jones MD [address] [place] [address] 01/28/2025 10:00 AM EDT Office Visit [address] [address] Vince Lockhart MD [address] [place] [address] documented as of this encounter Goals Goal [...] documented as of this encounter Care Teams Shellfish Dredge Operator Relationship Specialty Start Date End Date Vince Lockhart MD [address] [place] [address] PCP - General Internal Medicine 04/10/14 [facility] 12/29/23 documented as of this encounter
--- OUTSIDE RECORDS SUMMARY | 2024-11-25 14:08 | XMS_ITS | Encounter Summary ---
Author Organization [employer] Address [address] [facility] 7t [place] [address] Care Team Providers Care English As A Second Language Instructor Name Role Phone Vince Lockhart MD Primary Care Provide r Reason for Visit * Reason Onset Date Comments PT-1 07/01/2024 Encounter Details Date Type Department Care Team ([facility] st Contact Info) Description 07/01/2024 Telephone [facility] MEDICINE 230 [place], [place] [phone] Vince Lockhart MD 230 [place], [place] [phone] PT-1 Social History Tobacco Use Types Packs/Day [...] Y/N: Yes Provider name or facility name: [facility] Address: [address] [place] [address] Escort needed: Y/N: No Do you have a wheelchair: Y/N: No If yes- Manual or electric: N/A Visits: 1 every 3 months documented in this encounter Plan of Treatment Upcoming Encounters Date Type Department Care Team ([facility] st Contact Info) Description 11/27/2024 9:00 AM EDT Office Visit [facility] MEDICINE [address] [place] [address] Alexander Jones MD [address] [place] [address] 12/04/2024 9:00 AM EDT Office Visit [facility] MEDICINE [address] [place] [address] Alexander Jones MD [address] [place] [address] 01/28/2025 10:00 AM EDT Office Visit [facility] MEDICINE [address] [place] [address] Vince Lockhart MD [address] [place] [address] documented as of this encounter Goals Goal [...] documented as of this encounter Care Teams English As A Second Language Instructor Relationship Specialty Start Date End [place] [address] PCP - General Internal Medicine 04/10/14 [facility] 12/29/23 documented as of this encounter
--- OUTSIDE RECORDS SUMMARY | 2024-11-25 14:09 | XMS_ITS | Encounter Summary ---
Author Organization [employer] Address [address] [facility] 7t [place] [address] Care Team Providers Care Intranet Specialist Name Role Phone Vince Lockhart MD Primary Care Provide r Reason for Visit * Reason Comments Med Refill Encounter Details Date Type Department Care Team ([facility] st Contact Info) Description 06/26/2023 Refill [facility]INE 230 [place], [place] [phone] Vince Lockhart MD 230 [place], [place] [phone] Mixed hyperlipidemia Social History Tobacco Use Types [...] Description 11/27/2024 9:00 AM EDT Office Visit [facility] [address] [place] [address] Alexander Jones MD [address] [place] [address] 12/04/2024 9:00 AM EDT Office Visit [address] [address] Alexander Jones MD [address] [place] [address] 01/28/2025 10:00 AM EDT Office Visit [address] [address] Vince Lockhart MD [address] [place] [address] documented as of this encounter Goals Goal [...] documented as of this encounter Care Teams Intranet Specialist Relationship Specialty Start Date End Date Vince Lockhart MD [address] [place] [address] PCP - General Internal Medicine 04/10/14 [facility] 12/29/23 documented as of this encounter
--- OUTSIDE RECORDS SUMMARY | 2024-11-25 14:09 | XMS_ITS | Encounter Summary ---
Author Organization [employer] Address 75 [facility] 7t [place] [address] Care Team Providers Care Quality Auditor Name Role Phone Vince Lockhart MD Primary Care Provide r Reason for Visit * Reason Comments Med Refill Encounter Details Date Type Department Care Team ([facility] st Contact Info) Description 07/04/2023 Refill [facility]INE 230 [place], [place] [phone] Monse Gonzalez MD 230 [place] [address] Social History Tobacco Use Types Packs/Day Years [...] Description 11/27/2024 9:00 AM EDT Office Visit [address] [address] Alexander Jones MD [address] [place] [address] 12/04/2024 9:00 AM EDT Office Visit [address] [address] Alexander Jones MD [address] [place] [address] 01/28/2025 10:00 AM EDT Office Visit [address] [address] Vince Lockhart MD [address] [place] [address] documented as of this encounter Goals Goal [...] documented as of this encounter Care Teams Quality Auditor Relationship Specialty Start Date End Date Vince Lockhart MD 230 [place] [address] PCP - General Internal Medicine 04/10/14 [facility] [place] 12/29/23 documented as of this encounter
--- OUTSIDE RECORDS SUMMARY | 2024-11-25 14:09 | XMS_ITS | Encounter Summary ---
Author Organization [employer] Address 75 [facility] 7t [place] [address] Care Team Providers Care High School Vice Principal Name Role Phone Vince Lockhart MD Primary Care Provide r Osiel Mendez PharmD Unavailable [phone] Reason for Visit * Reason Onset Date Comments REQUEST FOR ADJUSTMENT SUPERVISOR REFERRAL 07/26/2022 I hernandez d regarding the pt's request for a referral for ADJUSTMENT SUPERVISOR services. He needs to state what ADL's he needs assistance with. There was no answer, and I reached a recording stating that the person's mailbox is full. I was unable to leave a msg. Encounter Details Date Type Department Care Team (Late st Contact Info) Description 07/26/2022 Telephone [facility] MEDICINE 230 [place] [address] Vince Lockhart MD 230 [place] [address] REQUEST FOR ADJUSTMENT SUPERVISOR REFERRAL (I called regarding the pt's request for a referral for ADJUSTMENT SUPERVISOR services. He needs to state what ADL's [...] Description 11/27/2024 9:00 AM EDT Office Visit [address] [address] Alexander Jones MD [address] [place] [address] 12/04/2024 9:00 AM EDT Office Visit [address] [address] Alexander Jones MD [address] [place] [address] [phone] 01/28/2025 10:00 AM EDT Office Visit [address] [address] Vince Lockhart MD [address] [place] [address] documented as of this encounter Visit Diagnoses Not on filedocumented in this encounter Care Teams High School Vice Principal Relationship Specialty Start Date End Date Vince Lockhart MD [address] [place] [address] PCP - General Internal Medicine 04/10/14 Osiel Mendez PharmD [address] [place] [address] Pharmacist Internal Medicine 12/19/22 06/11/23 [facility] 12/29/23 documented as of this encounter
--- OUTSIDE RECORDS SUMMARY | 2024-11-25 14:09 | XMS_ITS | Clinical Summary ---
Author Organization [facility] ity Address [address] [place] [address] Care Team Providers Care Manager Regional Name Role Phone Unavailable Primary Care Provider [...]
--- OUTSIDE RECORDS SUMMARY | 2024-11-25 14:09 | XMS_ITS | Encounter Summary ---
Author Organization [employer] Address 75 [facility] 7t [place] [address] Care Team Providers Care Archivist Military History Name Role Phone Vince Lockhart MD Primary Care Provide r Osiel Mendez PharmD Unavailable [phone] Encounter Details Date Type Department Care Team ([facility] Contact Info) Description 11/24/2022 Abstract [facility] MEDICINE [address] [place] [address] Vince Lockhart MD [address] [place] [address] Social History Tobacco Use Types Packs/Day Years [...] AM EDT Office Visit [facility] [address] [place] [address] [phone] Alexander Jones MD 230 [place] [address] 12/04/2024 9:00 AM EDT Office Visit [facility] [place] [address] [place] [address] 01/28/2025 10:00 AM EDT Office Visit [facility] [place] [address] Vince Lockhart MD [place] [phone] documented as of this encounter Procedures Procedure Name Priority Date/Time Associated Diagnosis Comments COLONOSCOPY Routine 01/08/2018 documented in this encounter Results * Colonoscopy (01/08/2018) Colonoscopy Normal Normal 01/08/2018 Narrative Yulisa Cochran - 01/08/2018 9:39 AM EDT Recommended 10 year follow up ( per provider notes) Historical Provider [facility] Edited Result - Final documented in this encounter Visit Diagnoses Not on filedocumented in this encounter Care Teams Archivist Military History Relationship Specialty Start Date End Date Vince Lockhart MD [place], [place] [phone] PCP - General Internal Medicine 04/10/14 Osiel Mendez PharmD [place] [phone] Pharmacist Internal Medicine 12/19/22 06/11/23 [facility] 12/29/23 documented as of this encounter
--- OUTSIDE RECORDS SUMMARY | 2024-11-25 14:09 | XMS_ITS | Encounter Summary ---
Author Organization [employer] Address 75 [facility] 7t [place] [address] Care Team Providers Care Landscaping Manager Name Role Phone Vince Lockhart MD Primary Care Provide r Reason for Visit * Reason Onset Date Comments Nurse Triage 02/28/2024 Encounter Details Date Type Department Care Team ([facility] st Contact Info) Description 02/28/2024 Telephone [facility] MEDICINE 230 [place], [place] [phone] Vince Lockhart MD 230 [place], [place] [phone] Nurse Triage Social History Tobacco Use Types [...] 02/28/2024 1:18 PM EDT Triage call with Stanislaus Saw Boss [place] [id number]. Pt reports headache and some dizziness for [...] call. Pt is advised to come to [facility] today and Pt asks if [...] 11/27/2024 9:00 AM EDT Office Visit [address] [address] Alexander Jones MD [address] [place] [address] 12/04/2024 9:00 AM EDT Office Visit [address] [address] Alexander Jones MD [address] [place] [address] 01/28/2025 10:00 AM EDT Office Visit [address] [address] Vince Lockhart MD [address] [place] [address] documented as of this encounter Goals Goal [...] documented as of this encounter Care Teams Landscaping Manager Relationship Specialty Start Date End Date Vince Lockhart MD [address] [place] [address], [place] [address] PCP - General Internal Medicine 04/10/14 [facility] [place] 12/29/23 documented as of this encounter
--- OUTSIDE RECORDS SUMMARY | 2024-11-25 14:09 | XMS_ITS | Encounter Summary ---
Author Organization [employer] Address 75 [facility] 7t [place] [address] Care Team Providers Care Supply Chain Director Name Role Phone Vince Lockhart MD Primary Care Provide r Reason for Visit * Reason Onset Date Comments PT1 04/10/2024 Encounter Details Date Type Department Care Team ([facility] st Contact Info) Description 04/10/2024 Telephone [facility] MEDICINE 230 [place], [place] [phone] Vince Lockhart MD 230 [place], [place] [phone] PT1 Social History Tobacco Use Types Packs/Day [...] 3:59 PM EDT Tc from Sheila with [facility] requesting PT1 Patient calling requesting PT1 Home Address verified: Y/N: Yes Provider name or facility name: [facility] Facility Address: [address] [place] [address] Escort needed: Y/N: No Do you have a wheelchair: Y/N: No If yes- Manual or electric: n/a Visits: 3 x month documented in this encounter Plan of Treatment Upcoming Encounters Date Type Department Care Team (Late st Contact Info) Description 11/27/2024 9:00 AM EDT Office Visit [facility] MEDICINE [address] [place] [address] Alexander Jones MD [address] [place] [address] 12/04/2024 9:00 AM EDT Office Visit [facility] [address] [place] [address] Alexander Jones MD [address] [place] [address] 01/28/2025 10:00 AM EDT Office Visit [facility]INE 230 [place] [address] Vince Lockhart MD 230 [place] [address] documented as of this encounter Goals Goal [...] documented as of this encounter Care Teams Supply Chain Director Relationship Specialty Start Date End Date Vince Lockhart MD [address] [place] [address] PCP - General Internal Medicine 04/10/14 [facility] 12/29/23 documented as of this encounter
--- OUTSIDE RECORDS SUMMARY | 2024-11-25 14:09 | XMS_ITS | Encounter Summary ---
Author Organization [employer] Address 75 [facility] 7t [place] [address] Care Team Providers Care Albacore Fishing Boat Crewman Name Role Phone Vince Lockhart MD Primary Care Provide r Osiel Mendez PharmD Unavailable [phone] Reason for Visit * Reason Onset Date Comments triage 10/03/2022 Encounter Details Date Type Department Care Team ([facility] st Contact Info) Description 10/03/2022 Telephone [facility]ICINE 230 [place], [place] [phone] Vince Lockhart MD 230 [place], [place] [phone] triage Social History Tobacco Use Types Packs/Day [...] requires assisted transportation. Is unable to access [email or web address] as he has no car and no [...] now The caller accepted this outcome speaks zimbabwean. documented in this encounter Plan of Treatment Upcoming Encounters Date Type Department Care Team (Late st Contact Info) Description 11/27/2024 9:00 AM EDT Office Visit [facility] [address] [place] [address] Alexander Jones MD [address] [place] [address] 12/04/2024 9:00 AM EDT Office Visit [facility] [address] [place] [address] Alexander Jones MD [address] [place] [address] 01/28/2025 10:00 AM EDT Office Visit [facility] 230 [place] [address] Vince Lockhart MD 230 [place] [address] documented as of this encounter Visit Diagnoses Not on filedocumented in this encounter Care Teams Albacore Fishing Boat Crewman Relationship Specialty Start Date End Date Vince Lockhart MD [address] [place] [address] PCP - General Internal Medicine 04/10/14 Osiel Mendez PharmD [address] [place] [address] Pharmacist Internal Medicine 12/19/22 06/11/23 [facility] 12/29/23 documented as of this encounter
--- OUTSIDE RECORDS SUMMARY | 2024-11-25 14:09 | XMS_ITS | Encounter Summary ---
Author Organization [employer] Address 75 [facility] 7t [place] [address] Care Team Providers Care Reclamation Worker Name Role Phone Vince Lockhart MD Primary Care Provide r Osiel Mendez PharmD Unavailable [phone] Reason for Visit * Reason Comments Med Refill Encounter Details Date Type Department Care Team (Late st Contact Info) Description 10/05/2022 Refill [facility] MEDICINE 230 [place], [place] [phone] Vince Lockhart MD 230 [place], [place] [phone] Depressive disorder Social History Tobacco Use Types [...] Description 11/27/2024 9:00 AM EDT Office Visit [facility] 230 [place], [place] [phone] Alexander Jones MD [address] [place] [address] 12/04/2024 9:00 AM EDT Office Visit [address] [place] [address] Alexander Jones MD [facility] [place] [address] 01/28/2025 10:00 AM EDT Office Visit [address] [place] [address] Vince Lockhart MD [facility] [place] [address] documented as of this encounter Visit Diagnoses Diagnosis Depressive disorder Depressive disorder, not elsewhere classified documented in this encounter Care Teams Reclamation Worker Relationship Specialty Start Date End Date Vince Lockhart MD [facility] [place] [address] PCP - General Internal Medicine 04/10/14 Osiel Mendez PharmD [address] [place], [place] [address] [place] [address] Pharmacist Internal Medicine 12/19/22 06/11/23 [facility] 12/29/23 documented as of this encounter
--- OUTSIDE RECORDS SUMMARY | 2024-11-25 14:09 | XMS_ITS | Encounter Summary ---
Author Organization [employer] Address 75 [facility] 7t [place] [address] Care Team Providers Care Salt Manager Name Role Phone Vince Lockhart MD Primary Care Provide r Osiel Mendez PharmD Unavailable [phone] Reason for Visit * Reason Comments Med Refill Encounter Details Date Type Department Care Team ([facility] st Contact Info) Description 03/01/2023 Refill [facility] MEDICINE 230 [place], [place] [phone] Vince Lockhart MD 230 [place] [address] Depressive disorder Social History Tobacco Use Types [...] [facility] documented in this encounter Plan of Treatment Upcoming Encounters Date Type Department Care Team (Late st Contact Info) Description 11/27/2024 9:00 AM EDT Office Visit [facility] MEDICINE [address] [place] [address] Alexander Jones MD [address] [place] [address] 12/04/2024 9:00 AM EDT Office Visit [address] [address] Alexander Jones MD [address] [place] [address] 01/28/2025 10:00 AM EDT Office Visit [address] [address] Vince Lockhart MD [address] [place] [address] documented as of this encounter Goals Goal [...] documented as of this encounter Care Teams Salt Manager Relationship Specialty Start Date End Date Vince Lockhart MD [address] [place] [address] PCP - General Internal Medicine 04/10/14 Osiel Mendez PharmD [address] [place] [address] Pharmacist Internal Medicine 12/19/22 06/11/23 [facility] 12/29/23 documented as of this encounter
--- OUTSIDE RECORDS SUMMARY | 2024-11-25 14:09 | XMS_ITS | Encounter Summary ---
Author Organization [employer] Address 75 [facility] 7t [place] [address] Care Team Providers Care Principal Examiner Name Role Phone Vince Lockhart MD Primary Care Provide r Reason for Visit * Reason Comments Med Refill Encounter Details Date Type Department Care Team ([facility] st Contact Info) Description 04/10/2024 Refill [facility] MEDICINE 230 [place], [place] [phone] Felicia Hdz, ANP 230 [place] [address] Social History Tobacco Use Types Packs/Day Years [...] Description 11/27/2024 9:00 AM EDT Office Visit [address] [address] Alexander Jones MD [address] [place] [address] 12/04/2024 9:00 AM EDT Office Visit [address] [address] Alexander Jones MD [address] [place] [address] 01/28/2025 10:00 AM EDT Office Visit [address] [address] Vince Lockhart MD [address] [place] [address] documented as of this encounter Goals Goal [...] documented as of this encounter Care Teams Principal Examiner Relationship Specialty Start Date End Date Vince Lockhart MD 230 [place] [address] PCP - General Internal Medicine 04/10/14 [facility] 12/29/23 documented as of this encounter
--- OUTSIDE RECORDS SUMMARY | 2024-11-25 14:09 | XMS_ITS | Encounter Summary ---
Author Organization [employer] Address 75 [facility] 7t [place] [address] Care Team Providers Care Preservative Filler Machine Operator Name Role Phone Vince Lockhart MD Primary Care Provide r Reason for Visit * Reason Comments GBAT Encounter Details Date Type Department Care Team (Latest Contact Info) Description 11/20/2024 9:00 AM EDT Office Visit [facility] MEDICINE 230 [place], [place] [phone] Alexander Jones MD 230 [place] [address] Uncomplicated opioid dependence (CMS/HCC) (Primary Dx) Social [...] 3 adult children (1 killed; 1 in intermediate in [place]) Last LFT (04/03/2024) LAST GBAT VISIT 11/13/2024 [...] at the visit: Team RN, MAT Physician, Communications Senior Associate, Clinician, and Martial Arts Instructor Opportunities provided to address individual medical/medication/ concern [...] at the visit: Team RN, ADILSON Physician, Communications Senior Associate, Clinician, and Martial Arts Instructor Opportunities provided to address individual medical/medication/BH concern Patient with heroin and cocaine use disorder Inconsistent follow-ups for his OBAT MAT, complicated by his medical issues Immune to Hep A/B History of Hepatitic C s/p treatment in 2017 (HCV RNA VL undetectable in 08/2023) Declined PrEP Incarceration history x2; lifetime arrests x6 ; 3 adult children (1 killed; 1 in intermediate in [place]) Last LFT (04/03/2024) LAST GBAT VISIT 10/23/2024 [...] at the visit: Team ADILSON JACK Physician, Communications Senior Associate, Clinician, and Martial Arts Instructor Opportunities provided to address individual medical/medication/BH concern [...] at the visit: Team ADILSON JACK Physician, Communications Senior Associate, Clinician, and Martial Arts Instructor Opportunities provided to address individual medical/medication/BH concern [...] Office Visit [facility] MEDICINE [address] [place] [address] Alexander Jones MD [address] [place] [address] 12/04/2024 9:00 AM EDT Office Visit [address] [address] Alexander Jones MD [address] [place] [address] 01/28/2025 10:00 AM EDT Office Visit [facility] MEDICINE 230 [place] [address] Vince Lockhart MD 230 [place] [address] documented as of this encounter Goals Goal [...] documented as of this encounter Care Teams Preservative Filler Machine Operator Relationship Specialty Start Date End Date Vince Lockhart MD 230 [place] [address] PCP - General Internal Medicine 04/10/14 [facility] 12/29/23 documented as of this encounter
--- OUTSIDE RECORDS SUMMARY | 2024-11-25 14:09 | XMS_ITS | Encounter Summary ---
Author Organization [employer] Address 75 [facility] 7t [place] [address] Care Team Providers Care Computer Repair Engineer Name Role Phone Vince Lockhart MD Primary Care Provide r Osiel Mendez PharmD Unavailable [phone] Reason for Visit * Reason Comments Med Refill Encounter Details Date Type Department Care Team (Late st Contact Info) Description 10/11/2022 Refill [facility] MEDICINE 230 [place], [place] [phone] Vince Lockhart MD 230 [place], [place] [phone] Depressive disorder Social History Tobacco Use Types [...] Description 11/27/2024 9:00 AM EDT Office Visit [facility] MEDICINE 230 [place], [place] [phone] Alexnader Jones MD [address] [place] [address] 12/04/2024 9:00 AM EDT Office Visit [address] [place] [address] Alexander Jones MD [facility] [place] [address] 01/28/2025 10:00 AM EDT Office Visit [address] [place] [address] Vince Lockhart MD [facility] [place] [address] documented as of this encounter Visit Diagnoses Diagnosis Depressive disorder Depressive disorder, not elsewhere classified documented in this encounter Care Teams Computer Repair Engineer Relationship Specialty Start Date End Date Vince Lockhart MD [facility] [place] [address] PCP - General Internal Medicine 04/10/14 Osiel Mendez PharmD [address] [place], [place] [address] [place] [address] Pharmacist Internal Medicine 12/19/22 06/11/23 [facility] 12/29/23 documented as of this encounter
--- OUTSIDE RECORDS SUMMARY | 2024-11-25 14:09 | XMS_ITS | Encounter Summary ---
Author Organization [employer] Address 75 [facility] 7t [place] [address] Care Team Providers Care Biology Instructor Name Role Phone Vince Lockhart MD Primary Care Provide r Reason for Visit * Reason Comments Med Refill Encounter Details Date Type Department Care Team ([facility] st Contact Info) Description 02/19/2024 Refill [facility] MEDICINE 230 [place], [place] [phone] Vince Lockhart MD 230 [place], [place] [phone] Chronic midline low back pain without sciatica [...] Description 11/27/2024 9:00 AM EDT Office Visit [facility] MEDICINE [address] [place] [address] Alexander Jones MD [address] [place] [address] 12/04/2024 9:00 AM EDT Office Visit [address] [address] Alexander Jones MD [address] [place] [address] 01/28/2025 10:00 AM EDT Office Visit [address] [address] Vince Lockhart MD [address] [place] [address] documented as of this encounter Goals Goal [...] documented as of this encounter Care Teams Biology Instructor Relationship Specialty Start Date End Date Vince Lockhart MD 230 [place] [address] PCP - General Internal Medicine 04/10/14 [facility] 12/29/23 documented as of this encounter
--- OUTSIDE RECORDS SUMMARY | 2024-11-25 14:09 | XMS_ITS | Encounter Summary ---
Author Organization [employer] Address [address] [facility] [address] 7t [place] [address] Care Team Providers Care Installer Technician Name Role Phone Vince Lockhart MD Primary Care Provide r Reason for Visit * Reason Comments Med Refill Encounter Details Date Type Department Care Team ([facility] st Contact Info) Description 03/18/2024 Refill [facility] [address] [place], [place] [phone] Yajaira Birmingham MD 230 [place] [address] Depressive disorder Social History Tobacco Use Types [...] Description 11/27/2024 9:00 AM EDT Office Visit [address] [address] Alexander Jones MD [address] [place] [address] 12/04/2024 9:00 AM EDT Office Visit [address] [address] Alexander Jones MD [address] [place] [address] 01/28/2025 10:00 AM EDT Office Visit [address] [address] Vince Lockhart MD [address] [place] [address] documented as of this encounter Goals Goal [...] documented as of this encounter Care Teams Installer Technician Relationship Specialty Start Date End Date Vince Lockhart MD [address] [place] [address] PCP - General Internal Medicine 04/10/14 [facility] 12/29/23 documented as of this encounter
--- OUTSIDE RECORDS SUMMARY | 2024-11-25 14:09 | XMS_ITS | Encounter Summary ---
Author Organization [employer] Address [address] [facility] 7t [place] [address] Care Team Providers Care Advanced Practice Rn Name Role Phone Vince Lockhart MD Primary Care Provide r Osiel Mendez PharmD Unavailable [phone] Reason for Visit * Reason Comments Med Refill Encounter Details Date Type Department Care Team ([facility] st Contact Info) Description 09/09/2022 Telephone [facility] [address] [place], [place] [phone] Vince Lockhart MD [address] [place], [place] [phone] Med Refill Social History Tobacco Use Types [...] PM EST ----- Pt entered care at [facility] 09/15. Out now but not sure of discharge date. Pharmacy called to tell us that the facility made some med changes. Pt continues to no show and cancel appointments. Tryto get paperwork and reach out to pt documented in this encounter Plan of Treatment Upcoming Encounters Date Type Department Care Team (Late st Contact Info) Description 11/27/2024 9:00 AM EDT Office Visit [facility] [address] [place] [address] Alexander Jones MD [address] [place] [address] 12/04/2024 9:00 AM EDT Office Visit [address] [address] Alexander Jones MD [address] [place] [address] 01/28/2025 10:00 AM EDT Office Visit [address] [address] Vince Lockhart MD [address] [place] [address] documented as of this encounter Visit Diagnoses Diagnosis Depressive disorder Depressive disorder, not elsewhere classified Difficulty sleeping Unspecified sleep disturbance documented in this encounter Care Teams Advanced Practice Rn Relationship Specialty Start Date End Date Vince Lockhart MD [address] [place] [address] PCP - General Internal Medicine 04/10/14 Osiel Mendez, PharmD 230 [place] [address] Pharmacist Internal Medicine 12/19/22 06/11/23 [facility] 12/29/23 documented as of this encounter
--- OUTSIDE RECORDS SUMMARY | 2024-11-25 14:09 | XMS_ITS | Encounter Summary ---
Author Organization [employer] Address [address] [facility] [address] 7t [place] [address] Care Team Providers Care Ripening Room Hand Name Role Phone Vince Lockhart MD [...] Description 11/27/2024 9:00 AM EDT Office Visit [address] [address] Alexander Jones MD [address] [place] [address] 12/04/2024 9:00 AM EDT Office Visit [address] [address] Alexander Jones MD [address] [place] [address] 01/28/2025 10:00 AM EDT Office Visit [address] [address] Vince Lockhart MD [address] [place] [address] documented as of this encounter Goals Goal [...] documented as of this encounter Care Teams Ripening Room Hand Relationship Specialty Start Date End Date Vince Lockhart MD 230 [place] [address] PCP - General Internal Medicine 04/10/14 [facility] [place] 12/29/23 documented as of this encounter
--- OUTSIDE RECORDS SUMMARY | 2024-11-25 14:09 | XMS_ITS | Encounter Summary ---
Author Organization [employer] Address [address] [facility] 7t [place] [address] Care Team Providers Care Aerial Advertiser Name Role Phone Vince Lockhart MD Primary Care Provide r Osiel Mendez PharmD Unavailable [phone] Encounter Details Date Type Department Care Team ([facility] st Contact Info) Description 03/01/2023 Telephone [facility] 230 [place], [place] [phone] Vince Lockhart MD 230 [place], [place] [phone] Social History Tobacco Use Types Packs/Day Years [...] - 03/01/2023 10:37 AM EDT Tc from [place] with [facility] requesting a call from a nurse in regards to having conflict with another agency. Please contact wilson at [phone] documented in this encounter Plan of Treatment Upcoming Encounters Date Type Department Care Team (Late st Contact Info) Description 11/27/2024 9:00 AM EDT Office Visit [facility] [address] [place] [address] Alexander Jones MD [address] [place] [address] 12/04/2024 9:00 AM EDT Office Visit [address] [address] Alexander Jones MD [address] [place] [address] 01/28/2025 10:00 AM EDT Office Visit [address] [address] Vince Lockhart MD [address] [place] [address] documented as of this encounter Goals Goal [...] documented as of this encounter Care Teams Aerial Advertiser Relationship Specialty Start Date End Date Vince Lockhart MD [address] [place] [address] [phone] PCP - General Internal Medicine 04/10/14 Osiel Mendez PharmD [address] [place] [address] Pharmacist Internal Medicine 12/19/22 06/11/23 [facility] 12/29/23 documented as of this encounter
--- OUTSIDE RECORDS SUMMARY | 2024-11-25 14:09 | XMS_ITS | Encounter Summary ---
Author Organization [employer] Address [address] [facility] 7t [place] [address] Care Team Providers Care Production Tech Name Role Phone Vince Lockhart MD Primary Care Provide r Osiel Mendez PharmD Unavailable [phone] Reason for Visit * Reason Comments Med Refill Encounter Details Date Type Department Care Team (Late st Contact Info) Description 10/07/2022 Refill [facility] [address] [place] [address] Vince Lockhart MD 230 [place], [place] [phone] Depressive disorder Social History Tobacco Use Types [...] Description 11/27/2024 9:00 AM EDT Office Visit [facility] 230 [place], [place] [phone] Alexander Jones MD [address] [place] [address] 12/04/2024 9:00 AM EDT Office [address] [place] [address] Alexander Jones MD [facility] [place] [address] 01/28/2025 10:00 AM EDT Office Visit [address] [place] [address] Vince Lockhart MD [facility] [place] [address] documented as of this encounter Visit Diagnoses Diagnosis Depressive disorder Depressive disorder, not elsewhere classified documented in this encounter Care Teams Production Tech Relationship Specialty Start Date End Date Vince Lockhart MD [facility] [place] [address] PCP - General Internal Medicine 04/10/14 Osiel Mendez PharmD [address] [place], [place] [address] [address] Pharmacist Internal Medicine 12/19/22 06/11/23 [facility] 12/29/23 documented as of this encounter
--- OUTSIDE RECORDS SUMMARY | 2024-11-25 14:09 | XMS_ITS | Encounter Summary ---
Author Organization [employer] Address 75 [facility] 7t [place] [address] Care Team Providers Care Hot Stone Setter Name Role Phone Vince Lockhart MD Primary Care Provide r Reason for Visit * Reason Onset Date Comments Med Refill 07/13/2023 Encounter Details Date Type Department Care Team ([facility] st Contact Info) Description 07/13/2023 Telephone [facility] 230 [place], [place] [phone] Vince Lockhart MD 230 [place], [place] [phone] Med Refill Social History Tobacco Use Types [...] Garvin LPN - 07/13/2023 12:46 PM EST MEDICAL STAFF SERVICES MANAGER checked Ambien last filled on 06/30/23 Qty: [...] Description 11/27/2024 9:00 AM EDT Office Visit [facility] [address] [place] [address] Alexander Jones MD [address] [place] [address] 12/04/2024 9:00 AM EDT Office Visit [facility] [address] [place] [address] [place] [address] 01/28/2025 10:00 AM EDT Office Visit [facility] [place] [phone] Vince Lockhart MD [address] [facility] [place] [address] documented as of this encounter Goals Goal [...] as of this encounter Care Teams Hot Stone Setter Relationship Specialty Start Date End Date [place] [address] PCP - General Internal Medicine 04/10/14 [facility] 12/29/23 documented as of this encounter
--- OUTSIDE RECORDS SUMMARY | 2024-11-25 14:09 | XMS_ITS | Encounter Summary ---
Author Organization [employer] Address [address] [facility] 7t [place] [address] Care Team Providers Care Sailor Name Role Phone Vince Lockhart MD Primary Care Provide r Osiel Mendez PharmD Unavailable [phone] Encounter Details Date Type Department Care Team (Late st Contact Info) Description 10/03/2022 Abstract [facility] [address] [place] [address] Vince Lockhart MD [address] [place] [address] Social History Tobacco Use Types Packs/Day Years [...] 9:00 AM EDT Office Visit [facility] [address] [place] [address] [phone] Alexander Jones MD 230 [place] [address] 12/04/2024 9:00 AM EDT Office Visit [facility] [place] [address] [place] [address] 01/28/2025 10:00 AM EDT Office Visit [facility] [place] [address] [place] [address] documented as of this encounter Visit Diagnoses Not on filedocumented in this encounter Care Teams Sailor Relationship Specialty Start Date End [place] [address] PCP - General Internal Medicine 04/10/14 Osiel Mendez, [place] [address] Pharmacist Internal Medicine 12/19/22 06/11/23 [facility] 12/29/23 documented as of this encounter
--- OUTSIDE RECORDS SUMMARY | 2024-11-25 14:09 | XMS_ITS | Encounter Summary ---
Author Organization [employer] Address [address] [facility] 7t [place] [address] Care Team Providers Care Vending Manager Name Role Phone Vince Lockhart MD Primary Care Provide r Osiel Mendez PharmD Unavailable [phone] Encounter Details Date Type Department Care Team (Late st Contact Info) Description 01/12/2023 Abstract [facility] 230 [place], [place] [phone] Vince Lockhart MD 230 [place] [address] Social History Tobacco Use Types Packs/Day Years [...] Description 11/27/2024 9:00 AM EDT Office Visit [facility] [address] [place] [address] [place] [address] 12/04/2024 9:00 AM EDT Office Visit [address] [address] Alexander Jones MD [address] [place] [address] 01/28/2025 10:00 AM EDT Office Visit [address] [address] Vince Lockhart MD [address] [place] [address] documented as of this encounter Goals Goal [...] documented as of this encounter Care Teams Vending Manager Relationship Specialty Start Date End Date Vince Lockhart MD [address] [place] [address] PCP - General Internal Medicine 04/10/14 Osiel Mendez PharmD [address] [place] [address] Pharmacist Internal Medicine 12/19/22 06/11/23 [facility] 12/29/23 documented as of this encounter
--- OUTSIDE RECORDS SUMMARY | 2024-11-25 14:09 | XMS_ITS | Encounter Summary ---
Author Organization [employer] Address [address] [facility] 7t [place] [address] Care Team Providers Care Pediatric Psychiatrist Name Role Phone Vince Lockhart MD Primary Care Provide r Reason for Visit * Reason Onset Date Comments Created in Error 04/09/2024 Encounter Details Date Type Department Care Team ([facility] st Contact Info) Description 04/09/2024 Telephone [facility] 230 [place], [place] [phone] Vince Lockhart MD 230 [place] [address] Created in Error Social History Tobacco Use [...] Description 11/27/2024 9:00 AM EDT Office Visit [facility] [address] [place] [address] Alexander Jones MD [address] [place] [address] 12/04/2024 9:00 AM EDT Office Visit [address] [address] Alexander Jones MD [address] [place] [address] 01/28/2025 10:00 AM EDT Office Visit [address] [address] Vince Lockhart MD [address] [place] [address] documented as of this encounter Goals Goal [...] documented as of this encounter Care Teams Pediatric Psychiatrist Relationship Specialty Start Date End Date Vince Lockhart MD 230 [place] [address] PCP - General Internal Medicine 04/10/14 [facility] 12/29/23 documented as of this encounter
--- OUTSIDE RECORDS SUMMARY | 2024-11-25 14:09 | XMS_ITS | Encounter Summary ---
Author Organization [employer] Address [address] [facility] 7t [place] [address] Care Team Providers Care Automotive Assembler Name Role Phone Vince Lockhart MD Primary Care Provide r Osiel Mendez PharmD Unavailable [phone] Encounter Details Date Type Department Care Team (Late st Contact Info) Description 09/26/2022 Telephone [facility] [address] [place] [address] Vince Lockhart MD [address] [place] [address] Social History Tobacco Use Types Packs/Day Years [...] Description 11/27/2024 9:00 AM EDT Office Visit [facility] [address] [place] [address] [phone] Alexander Jones MD [address] [place] [address] 12/04/2024 9:00 AM EDT Office Visit [facility] [address] [place] [address] Alexander Jones MD [facility], [place] [phone] 01/28/2025 10:00 AM EDT Office Visit [facility] [place] [address] Vince Lockhart MD [place], [place] [phone] documented as of this encounter Visit Diagnoses Not on filedocumented in this encounter Care Teams Automotive Assembler Relationship Specialty Start Date End Date Vince Lockhart MD [facility] [place], [place] [phone] PCP - General Internal Medicine 04/10/14 Osiel Mendez PharmD [address] [place] [address] Pharmacist Internal Medicine 12/19/22 06/11/23 [facility] 12/29/23 documented as of this encounter
== END 2024-11-25 14:15 | disposition home or self-care (01) ==
LOC: HO.HPS 13:52
PROVIDERS: PCP Internal Medicine; Visit Provider Internal Medicine Pulmonary Disease
DX: J44.9 Chronic obstructive pulmonary disease, unspecified (principal); R91.8 Other nonspecific abnormal finding of lung field; R06.01 Orthopnea
CPT/HCPCS: 99214

== ENCOUNTER → 2024-11-25 13:51 | Outpatient (BNVA) | payer MEDICAID, SELFPAY | PROVIDERS: PCP Internal Medicine; Visit Provider Internal Medicine Pulmonary Disease | DX: J44.9 Chronic obstructive pulmonary disease, unspecified (principal); R91.8 Other nonspecific abnormal finding of lung field; R06.01 Orthopnea | CPT/HCPCS: 99212 ==

== ENCOUNTER 2024-12-30 10:38 | Outpatient (AMB) | payer MEDICAID, SELFPAY ==
[2024-12-30 10:44] VITALS: BP 126/71; PULSE 104; RESP 16; O2SAT 92; BMI 24.4
--- NOTE | 2024-12-30 10:44 | MHC.OFFVIS ---
Vital Signs 12/30/24 10:44 Height 5 ft 4 in Weight 142 lb BMI 24.4 BP 126/71 Blood Pressure Location Lt brachial Position Sitting Respiration 16 Pulse 104 H Pulse Source Pulse Oximeter Pulse Oximetry (%) 92 Oxygen Delivery Method Room Air Intake Visit Reasons: Right Knee Inj. Button Puncher Required: No Accompanied by: Self / Same As Patient Allergies ibuprofen Allergy (Intermediate, Verified 01/06/25 11:51) Stomach Upset penicillin V Allergy (Intermediate, Verified 01/06/25 11:51) rash HPI HPI Right Knee Inj.: Details: History of Present Illness The patient is a 59-year-old male presenting for right knee intraarticular steroid injection. The patient has a history of right knee pain significant enough to require corticosteroid treatment administered intraarticularly. Detailed aspects of the pain including its onset and severity, as well as any failed prior interventions for this episode, have not been explored in this visit. The decision was made to treat one knee during the visit, specifically the right knee. In addition, the patient is known to have Chronic Obstructive Pulmonary Disease (COPD), with limited information provided on this comorbidity during the consultation. A brief reference was made regarding shortness of breath potentially related to COPD, but further elaboration or medical history details were not recorded in this session. The focus of the consultation remained primarily on the management and intervention of the knee pain. Pain Description - Onset and timing: Not specified - Quality and character: Not specified - Primary location: Right knee - Areas of radiation: Not specified - Exacerbating factors: Not specified - Relieving factors: Treatment with intraarticular steroid injection planned - Activities or functions interfered with: Not specified Results Pain Management - Affect: Not discussed - Analgesia: Not discussed - Adverse Effects: Not mentioned - Activities of Daily Living: Not discussed - Aberrant Drug Related Behaviors: Not discussed Procedure - Right knee intraarticular steroid injection: Informed consent obtained - Patient consent verbalized for proceeding with injection on the right side - Right knee prepped with chloreprep for sterility - 25g needle advanced in the medial parapatellar approach - 40mg Kenalog injected mixed with 3mL ropivacaine 0.25% - No blood loss [facility] Medical History Acute pain of right shoulder Chronic low back pain without sciatica Hepatitis C Cocaine abuse Opioid dependence Finger lesion Chronic anemia Migraine Routine medical exam Lung mass Suicidal ideation Polysubstance abuse Chronic back pain BPH (benign prostatic hyperplasia) Nicotine dependence Cannabis use disorder, moderate, dependence Cocaine use disorder Pulmonary nodules Emphysema of lung Anxiety Depression Asthma Surgical History Hx of cholecystectomy Social History Household Members: None Housing: Apartment Do you presently have visiting nurse or other home services: No Unable to assess alcohol history related to: Unknown Alcohol intake: current Alcohol intake frequency: former alcohol drinker Alcohol type: beer Patient Tobacco Use Status: Current everyday Tobacco user Tobacco use type: Cigarette Cigarettes Per Day: 2 Years Smoked: many years e-Cigarette/Vaping Use: Never Used Second Hand Smoke Exposure: No Substance Use Type: Crack/Cocaine and Marijuana Advance Directives Date on File: 01/18/23 service: No Current occupational status: unemployed Current occupation: right hand dominant Sexual orientation: Straight/Heterosexual Physical Exam Vital Signs: Last Vital Signs Pulse 104 H 12/30/24 10:44 Resp 16 12/30/24 10:44 BP 126/71 12/30/24 10:44 Pulse Ox 92 12/30/24 10:44 Oxygen Delivery Method Room Air 12/30/24 10:44 BMI result Body Mass Index 24.4 Assessment & Plan Assessment & Plan (1) Primary osteoarthritis of knees, bilateral: Code(s): M17.0 - Bilateral primary osteoarthritis of knee Category: Medical (2) Bilateral knee pain: Code(s): M25.561 - Pain in right knee; M25.562 - Pain in left knee Category: Medical Plan Plan - S/P intraarticular steroid injection to the right knee as planned - Schedule follow-up appointment for next week - Monitor pain levels and assess the effectiveness of the treatment Patient was informed and verbally consented to the use of an ambient scribe for clinic note documentation during this visit. Discussion Notes During the visit, I engaged the patient in discussion about his right knee pain, and I confirmed the plan to administer an intraarticular steroid injection to the right knee. The patient consented to this treatment option and opted to address only the right knee during this procedure. We briefly discussed the patient?s COPD, though it was not the primary focus of this meeting. Follow-up care will be monitored with the next appointment already scheduled for next week. We did not discuss specific risks or benefits associated with the procedure during the conversation, but standard practice was followed in obtaining the patient's consent for the treatment. Patient Instructions - Return next week for follow-up appointment - Monitor knee pain and report any significant changes - Seek medical attention sooner if experiencing increased pain, swelling, or other concerning symptoms Coding Level of Care Code Procedure Only Diagnoses Primary osteoarthritis of knees, bilateral M17.0 Bilateral knee pain M25.561; M25.562
--- OUTSIDE RECORDS SUMMARY | 2024-12-30 11:56 | XMS_ITS | Encounter Summary ---
Author Organization [employer] Address [address] [facility] 7t [place] [address] Care Team Providers Care Hose Sprayer Name Role Phone Vince Lockhart MD Primary Care Provide r Encounter Details Date Type Department Care Team ([facility] st Contact Info) Description 06/19/2023 Telephone [facility] 230 [place], [place] [phone] Vince Lockhart MD 230 [place], [place] [phone] Social History Tobacco Use Types Packs/Day Years [...] Upcoming Encounters Date Type Department Care Team ([facility] st Contact Info) Description 01/01/2025 9:00 AM EDT Office Visit [address] [address] Alexander Jones MD [address] [place] [address] 01/08/2025 9:00 AM EDT Clinical Support [address] [address] Georgina Ann RN 01/28/2025 10:00 AM EDT Office Visit [address] [address] Vince Lockhart MD [address] [place] [address] documented as of this encounter Goals Goal [...] documented as of this encounter Care Teams Hose Sprayer Relationship Specialty Start Date End Date Vince Lockhart MD [address] [place] [address] PCP - General Internal Medicine 04/10/14 [facility] 12/29/23 documented as of this encounter
== END 2024-12-30 10:56 | disposition home or self-care (01) ==
LOC: HO.PMC 10:38
PROVIDERS: PCP Internal Medicine; Visit Provider Internal Medicine
DX: M25.561 Pain in right knee (principal); M17.0 Bilateral primary osteoarthritis of knee
CPT/HCPCS: 20610

== ENCOUNTER → 2024-12-30 10:38 | Outpatient (BNVA) | payer MEDICAID, SELFPAY | PROVIDERS: PCP Internal Medicine; Visit Provider Internal Medicine | DX: M17.0 Bilateral primary osteoarthritis of knee (principal); M25.561 Pain in right knee; M25.562 Pain in left knee | CPT/HCPCS: 20610; J2795; J3301 ==

== ENCOUNTER 2025-01-06 11:41 | Outpatient (AMB) | payer MEDICAID, SELFPAY ==
[2025-01-06 11:50] VITALS: BP 110/69; PULSE 102; RESP 16; O2SAT 92; BMI 24.2
--- NOTE | 2025-01-06 11:50 | MHC.OFFVIS ---
Vital Signs 01/06/25 11:50 Height 5 ft 4 in Weight 141 lb BMI 24.2 BP 110/69 Blood Pressure Location Lt brachial Position Sitting Respiration 16 Pulse 102 H Pulse Source Pulse Oximeter Pulse Oximetry (%) 92 Oxygen Delivery Method Room Air Intake Visit Reasons: Left Knee Inj. Dispatcher Service Chief Required: No Silk Screen Printer Helper: Silk Screen Printer Helper Present Accompanied by: Richar Orellana Allergies ibuprofen Allergy (Intermediate, Verified 01/06/25 11:51) Stomach Upset penicillin V Allergy (Intermediate, Verified 01/06/25 11:51) rash Medication List - Last Reconciled 01/06/25 by Amna Bang LPN acetaminophen 500 mg PO Q6H PRN albuterol sulfate 90 mcg/actuation (Ventolin HFA) 2 puffs inhalation Q4-6H PRN 30 days atorvastatin 40 mg PO BEDTIME 30 days baclofen 10 mg PO TID budesonide-formoterol 160-4.5 mcg/actuation (Symbicort) 2 puffs inhalation BID buprenorphine-naloxone 4-1 mg (Suboxone) 1 film sublingual DAILY buprenorphine-naloxone 8-2 mg (Suboxone) 1 film sublingual DAILY 7 days clonazepam (Klonopin) 0.5 mg PO BID ferrous sulfate 325 mg PO DAILY furosemide 20 mg PO QAM hydroxyzine HCl 25 mg PO BID ipratropium-albuterol 0.5 mg-3 mg(2.5 mg base)/3 mL mL inhalation TID mirtazapine 15 mg PO BEDTIME mirtazapine 30 mg PO BEDTIME pantoprazole 40 mg PO DAILY quetiapine 400 mg PO BEDTIME 30 days quetiapine 100 mg PO 1XD risperidone 3 mg PO BEDTIME risperidone 1 mg PO BEDTIME sildenafil (Viagra) 100 mg PO DAILY PRN tamsulosin 0.8 mg (2 x 0.4 mg) PO DAILY 30 days tiotropium bromide 2.5 mcg/actuation (Spiriva Respimat) 2 puffs inhalation QAM topiramate 50 mg PO BEDTIME 30 days trazodone 50 mg PO BEDTIME PRN trazodone 100 mg PO BEDTIME venlafaxine ER 150 mg PO DAILY venlafaxine ER 37.5 mg PO DAILY zolpidem 5 mg PO BEDTIME PRN 15 days HPI HPI Left Knee Inj.: Details: Patient presents for scheduled procedure. Denies any recent cough, cold, infection, fever or other significant changes in medical history since last office visit. [facility] Medical History Acute pain of right shoulder Chronic low back pain without sciatica Hepatitis C Cocaine abuse Opioid dependence Finger lesion Chronic anemia Migraine Routine medical exam Lung mass Suicidal ideation Polysubstance abuse Chronic back pain BPH (benign prostatic hyperplasia) Nicotine dependence Cannabis use disorder, moderate, dependence Cocaine use disorder Pulmonary nodules Emphysema of lung Anxiety Depression Asthma Surgical History Hx of cholecystectomy Social History Household Members: None Housing: Apartment Do you presently have visiting nurse or other home services: No Unable to assess alcohol history related to: Unknown Alcohol intake: current Alcohol intake frequency: former alcohol drinker Alcohol type: beer Patient Tobacco Use Status: Current everyday Tobacco user Tobacco use type: Cigarette Cigarettes Per Day: 2 Years Smoked: many years e-Cigarette/Vaping Use: Never Used Second Hand Smoke Exposure: No Substance Use Type: Crack/Cocaine and Marijuana Advance Directives Date on File: 01/18/23 service: No Current occupational status: unemployed Current occupation: right hand dominant Sexual orientation: Straight/Heterosexual Physical Exam Vital Signs: Last Vital Signs Pulse 102 H 01/06/25 11:50 Resp 16 01/06/25 11:50 BP 110/69 01/06/25 11:50 Pulse Ox 92 01/06/25 11:50 Oxygen Delivery Method Room Air 01/06/25 11:50 BMI result Body Mass Index 24.2 Office Procedures AMB Joint Injection/Aspiration Joint Injection/Aspiration Primary Site: left knee Prep: site was prepped using sterile technique Injected: 40 mg of, Kenalog, with 3 mL of (ropivacaine 0.25%) and in the joint Approach Used: medial parapatellar Procedure: The patient tolerated the procedure well Coding 98562 - Large joint Procedure code (CPT) selection complete Assessment & Plan Assessment & Plan (1) Primary osteoarthritis of knees, bilateral: Code(s): M17.0 - Bilateral primary osteoarthritis of knee Category: Medical Plan Patient is status post left knee intrararticular injection. Patient tolerated procedure well and was discharged home in stable condition with discharge instructions. All questions were answered. We will follow-up via telephone or in clinic to assess response to therapy. A follow-up appointment was made during today's visit. Coding Level of Care Code Procedure Only Diagnoses Primary osteoarthritis of knees, bilateral M17.0 CPT Codes Coding - 88265 Large joint: 91531 - Large joint ([id number])
--- OUTSIDE RECORDS SUMMARY | 2025-01-06 13:19 | XMS_ITS | Encounter Summary ---
Author Organization [employer] Address [address] [place] [address] Care Team Providers Care Supervisor Mapping Name Role Phone Vince Lockhart MD Primary Care Provide r Encounter Details Date Type Department Care Team ([facility] st Contact Info) Description 06/19/2023 Telephone [facility] MEDICINE [address], [place] [phone] Vince Lockhart MD [address], [place] [phone] Social History Tobacco Use Types Packs/Day Years [...] Care Team (Late st Contact Info) Description 01/08/2025 9:00 AM EDT Clinical Support [address] [address] Georgina Ann RN 01/15/2025 9:00 AM EDT Office Visit [address] [address] Alexander Jones MD [address] [place] [phone] 01/28/2025 10:00 AM EDT Office Visit [address] [address] Vince Lockhart MD [address] [place] [id number] documented as of this encounter Goals Goal [...] documented as of this encounter Care Teams Supervisor Mapping Relationship Specialty Start Date End Date Vince Lockhart MD [address] [place] [id number] PCP - General Internal Medicine 04/10/14 [facility] [place] 12/29/23 documented as of this encounter
== END 2025-01-06 12:27 | disposition home or self-care (01) ==
PROVIDERS: PCP Internal Medicine; Visit Provider Internal Medicine
DX: M17.0 Bilateral primary osteoarthritis of knee (principal)
CPT/HCPCS: 20610

== ENCOUNTER → 2025-01-06 11:41 | Outpatient (BNVA) | payer MEDICAID, SELFPAY | PROVIDERS: PCP Internal Medicine; Visit Provider Internal Medicine | DX: M17.0 Bilateral primary osteoarthritis of knee (principal) | CPT/HCPCS: 20610 ==

== ENCOUNTER 2025-02-01 21:45 | Emergency (ER) | payer MEDICAID, SELFPAY ==
--- NOTE | ~2025-02-01 | XR_ITS ---
CLINICAL HISTORY: cp 2 view chest x-ray Comparison: 06/24/2024 Findings: Lungs are clear without acute infiltrates. Bochdalek's hernia left hemidiaphragm. Finding is unchanged from multiple prior studies. No pneumothorax. Heart size normal. No acute bony abnormalities. Impression: No acute processes This document has been electronically signed by: Srini Hernandez MD on 02/01/2025 22:47:05
[2025-02-01 21:56] VITALS: BP 107/74; PULSE 90; RESP 19; TEMP 36.6; O2SAT 92; BMI 24.4
--- NOTE | 2025-02-01 21:58 | ECG_ITS ---
Test Reason : cp Blood Pressure : */* mmHG Vent. Rate : 83 BPM Atrial Rate : 83 BPM P-R Int : 172 ms QRS Dur : 106 ms QT Int : 382 ms P-R-T Axes : 71 -16 77 degrees QTcB Int : 448 ms Normal sinus rhythm Incomplete right bundle branch block Borderline ECG When compared with ECG of 24-Jun-2024 14:16, No significant change was found Referred By: Generic ED Physician Electronically Signed By: FREDI LACKEY
[2025-02-01 22:10] LABS: MANUAL DIFF FLAG NO
[2025-02-01 22:23] LABS: Hematocrit 37.5 % (42.0-52.0); Hemoglobin 12.9 g/dl (14.0-18.0); Imm Gran Abs Auto 0.03 X10*3/uL (0.00-0.03); Imm Gran Pct Auto 0.4 % (0.0-0.4); Lymphocytes Absolute Auto 3.3 X10*3/uL (1.2-4.9); Mean Corpuscular HGB Conc 34.4 g/dl (31.0-36.0); Mean Corpuscular Hemoglobin 29.5 pg (27.0-33.0); Mean Corpuscular Volume 85.8 fL (80.0-98.0); NRBC Abs Auto 0.000 X10*3/uL (0.0-0.012); NRBC Pct Auto 0.0 /100WBC (0.0-0.2); Platelet Count 290 X10*3/uL (160-400); Red Blood Count 4.37 X10*6/uL (4.60-5.80); White Blood Count 7.5 X10*3/uL (4.8-10.8)
[2025-02-01 22:28] LABS: Anion Gap 12 (12-20); Blood Urea Nitrogen 11 mg/dL (9-16); Calcium 8.7 mg/dL (8.4-10.2); Carbon Dioxide 28 mmol/L (22-29); Chloride 106 mmol/L (96-108); Creatinine Clr Calc Pharmacy 64.9; Estimated Glomerular Filt Rate > 60; Potassium 3.6 mmol/L (3.3-5.1); Sodium 142 mmol/L (135-145)
--- NOTE | 2025-02-01 22:28 | ED.CHESTPAIN ---
HPI - Chest Pain General Chief Complaint: Chest Pain Stated Complaint: fatigue, nausea Time Seen by Provider: 02/01/25 22:27 Source: patient Mode of arrival: EMS Limitations: language barrier (Patient's 1st language is [place], understands some Upper Sorbian, [facility]/translator was used and iPad freelance interpreter/translator was used as well) History of Present Illness ED Provider: Dr. Benjamin Mishra HPI narrative: 59-year-old male with a history of osteopenia, lumbar disc disease, osteoarthritis of the knees, BPH, COPD, JERRY, MDD, nephrolithiasis, COPD, cannabis use disorder who presents emergency department for evaluation of chest pain, fatigue, nausea and shortness of breath. Patient states he has been sick for 1 week with a cough that is productive of thick, yellow sputum with no blood in his sputum. He also is having left-sided chest pain which is present only with coughing and worse with breathing. He has had increased shortness of breath and dyspnea on exertion above his baseline. He states he has been feeling very weak and tired over the past week. He denied fever but did have chills. He had nausea but no vomiting or diarrhea. He denied myalgias arthralgias. Related Data Home Medications ?Medication ?Instructions ?Recorded ?Confirmed clonazepam 0.5 mg tablet (Klonopin) 0.5 mg PO BID anxiety 12/15/23 01/06/25 ferrous sulfate 325 mg (65 mg 325 mg PO DAILY 01/25/24 01/06/25 iron) tablet,delayed release acetaminophen 500 mg tablet 500 mg PO Q6H PRN Pain 06/24/24 01/06/25 baclofen 10 mg tablet 10 mg PO TID 06/24/24 01/06/25 ipratropium 0.5 mg-albuterol 3 mg ml inhalation TID 06/24/24 01/06/25 (2.5 mg base)/3 mL nebulization soln mirtazapine 15 mg tablet 15 mg PO BEDTIME 06/24/24 01/06/25 mirtazapine 30 mg tablet 30 mg PO BEDTIME 06/24/24 01/06/25 pantoprazole 40 mg tablet,delayed 40 mg PO DAILY 06/24/24 01/06/25 release quetiapine 100 mg tablet 100 mg PO 1XD 06/24/24 01/06/25 sildenafil 100 mg tablet (Viagra) 100 mg PO DAILY PRN Erectile 06/24/24 01/06/25 Dysfunction trazodone 50 mg tablet 50 mg PO BEDTIME PRN insomnia 06/24/24 01/06/25 venlafaxine 150 mg 150 mg PO DAILY 06/24/24 01/06/25 capsule,extended release 24 hr buprenorphine 4 mg-naloxone 1 mg 1 film sublingual DAILY 11/21/24 01/06/25 sublingual film (Suboxone) hydroxyzine HCl 25 mg tablet 25 mg PO BID 11/21/24 01/06/25 risperidone 1 mg tablet 1 mg PO BEDTIME 11/21/24 01/06/25 risperidone 3 mg tablet 3 mg PO BEDTIME 11/21/24 01/06/25 trazodone 100 mg tablet 100 mg PO BEDTIME 11/21/24 01/06/25 venlafaxine 37.5 mg 37.5 mg PO DAILY 11/21/24 01/06/25 capsule,extended release 24 hr Previous Rx's ?Medication ?Instructions ?Recorded albuterol sulfate 90 mcg/actuation 2 puff inhalation Q4-6H PRN 06/30/23 aerosol inhaler (Ventolin HFA) Wheezing 30 days #6.7 grams atorvastatin 40 mg tablet 40 mg PO BEDTIME 30 days #30 tabs 06/30/23 tamsulosin 0.4 mg capsule 0.8 mg (2 x 0.4 mg) PO DAILY 30 06/30/23 days #60 caps zolpidem 5 mg tablet 5 mg PO BEDTIME PRN insomnia 15 06/30/23 days #15 tabs buprenorphine 8 mg-naloxone 2 mg 1 film sublingual DAILY 7 days #7 12/28/23 sublingual film (Suboxone) ea quetiapine 400 mg tablet 400 mg PO BEDTIME 30 days #30 tabs 12/28/23 topiramate 50 mg tablet 50 mg PO BEDTIME 30 days #30 tabs 12/28/23 budesonide-formoterol HFA 160 2 puff inhalation BID #10.2 grams 09/05/24 mcg-4.5 mcg/actuation aerosol inhaler (Symbicort) tiotropium bromide 2.5 2 puff inhalation QAM #4 grams 09/05/24 mcg/actuation mist for inhalation (Spiriva Respimat) furosemide 20 mg tablet 20 mg PO QAM #30 tabs 12/14/24 doxycycline hyclate 100 mg tablet 100 mg PO Q12H 7 days #14 tabs 02/01/25 Allergies Allergy/AdvReac Type Severity Reaction Status Date / Time ibuprofen Allergy Intermediate Stomach Verified 02/01/25 21:57 Upset penicillin V Allergy Intermediate rash Verified 02/01/25 21:57 Review of Systems Review of Systems: Yes all other systems are reviewed and are negative [facility] Past Medical History [facility] Narrative: Social history: Patient states that he stopped smoking 1 month prior but states that he has had at least a 1 pack per day smoking habit for 47 years. He denies alcohol use. He denies drug use. Medical History Acute pain of right shoulder Chronic low back pain without sciatica Hepatitis C Cocaine abuse Opioid dependence Finger lesion Chronic anemia Migraine Routine medical exam Lung mass Suicidal ideation Polysubstance abuse Chronic back pain BPH (benign prostatic hyperplasia) Nicotine dependence Cannabis use disorder, moderate, dependence Cocaine use disorder Pulmonary nodules Emphysema of lung Anxiety Depression Asthma Surgical History Hx of cholecystectomy Social History Social History Household Members: None Housing: Apartment Do you presently have visiting nurse or other home services: No Unable to assess alcohol history related to: Unknown Alcohol intake: current Alcohol intake frequency: former alcohol drinker Alcohol type: beer Patient Tobacco Use Status: Current everyday Tobacco user Tobacco use type: Cigarette Cigarettes Per Day: 2 Years Smoked: many years Smoked in Last 30 Days: No e-Cigarette/Vaping Use: Never Used Second Hand Smoke Exposure: No Use of substances other than those prescribed or required for medical reasons: No Substance Use Type: Crack/Cocaine and Marijuana Advance Directives: Yes Advance Directives on File: Yes Advance Directives Date on File: 01/18/23 Do you have a plan to hurt others: No Plan service: No Current occupational status: unemployed Current occupation: right hand dominant Sexual orientation: Straight/Heterosexual Physical Exam Vital Signs: Vital Signs: Last Vital Signs Temp 98.2 F 02/01/25 22:34 Pulse 77 02/01/25 22:34 Resp 15 02/01/25 22:45 BP 151/90 H 07/19/25 22:34 Pulse Ox 93 02/01/25 22:34 O2 Del Method Room Air 02/01/25 22:34 BMI result Body Mass Index 24.4 Vital signs revealed an elevated blood pressure of 151/90. O2 saturation was 93% on room air which is normal. Exam: General: Awake, alert in no distress Head: Normocephalic, atraumatic EENT: PERRL, Lids normal, sclera normal, conjunctiva normal, nose normal , ears normal, throat without erythema or exudates Neck: Supple, no adenopathy Lung: breath sounds symmetric, no wheezing, rales or rhonchi Chest: symmetric movement, tenderness with palpation of his left chest wall Heart: regular rate and rhythm, normal S1, S2 no murmurs or rubs Abdomen: soft, non-tender, nondistended, normal bowel sounds Back: no vertebral tenderness, no CVAT Extremities: no deformities, moves all extremities symmetrically Neuro: Awake, alert, oriented, normal speech, cranial nerves intact, moves all extremities symmetrically Psych: Pleasant, cooperative Medications Administered Discontinued Medications Generic Name Dose Route Start Last Admin Trade Name Freq PRN Reason Stop Dose Admin Morphine Sulfate 4 mg 02/01/25 22:39 02/01/25 22:45 Morphine Sulfate 4 Mg/Ml Cartridge IVPUSH 02/01/25 22:40 4 mg ONCE STA Administration Protocol Medical Decision Making Medical Decision Making [facility] Narrative: 59-year-old male with a history of osteopenia, lumbar disc disease, osteoarthritis of the knees, BPH, COPD, JERRY, MDD, nephrolithiasis, COPD, cannabis use disorder who presents emergency department for evaluation of chest pain, fatigue, nausea and shortness of breath. Patient states he has been sick for 1 week with a cough that is productive of thick, yellow sputum with no blood in his sputum. He also is having left-sided chest pain which is present only with coughing and worse with breathing. He has had increased shortness of breath and dyspnea on exertion above his baseline. He states he has been feeling very weak and tired over the past week. He denied fever but did have chills. He had nausea but no vomiting or diarrhea. He denied myalgias arthralgias. Vital signs revealed an elevated blood pressure otherwise unremarkable. Physical examination did reveal left chest wall tenderness otherwise was unremarkable. Differential diagnosis: ?Includes but is not limited to myocardial infarction, myocardial ischemia, chest wall pain, pneumonia, bronchitis, anemia, electrolyte abnormalities Course: 23:28 My independent interpretation patient's laboratory evaluation as follows: Chronic normocytic anemia with an H&H of 12.9 and 37.5. Low glucose 59-the patient is asymptomatic. CMP was otherwise normal. Troponin was below detectable limits. COVID-19, influenza and RSV tests were negative. The patient's pain was treated with morphine 4 mg IV. Patient's pain went from 9/ to 7/, patient was given a 2nd dose of morphine 4 mg IV for his pain. Twelve EKG was unchanged from the patient's previous EKG with no acute findings. Chest x-ray revealed COPD changes with no acute findings. Given the patient's COPD, tobacco use disorder and productive cough, I am concerned that he may have bacterial bronchitis therefore he was treated with doxycycline 100 mg orally and given a prescription for doxycycline 100 mg q.12 hours x7 days. He was advised to take Tylenol for his pain. He is given printed and verbal instructions and discharged home. Admission/Observation Consideration of admission/observation: Escalation of care including admission/observation considered (Yes) Lab Data MDM Lab Attestation statement: I reviewed the patient's lab results. 02/01/25 22:05 02/01/25 22:05 Labs: Lab Results 02/01/25 Range/Units 22:05 WBC 7.5 (4.8-10.8) X10*3/uL RBC 4.37 L (4.60-5.80) X10*6/uL Hgb 12.9 L (14.0-18.0) g/dl Hct 37.5 L (42.0-52.0) % MCV 85.8 (80.0-98.0) fL MCH 29.5 (27.0-33.0) pg MCHC 34.4 (31.0-36.0) g/dl RDW 13.8 (11.0-16.0) % Plt Count 290 (160-400) X10*3/uL MPV 8.2 L (9.4-12.4) fL Immature Gran % (Auto) 0.4 (0.0-0.4) % Neut % (Auto) 42.3 L (45-73) % Lymph % (Auto) 43.6 H (20-40) % Brantley % (Auto) 7.0 (2-11) % Eos % (Auto) 5.9 H (0-4) % Baso % (Auto) 0.8 (0-2) % Lymph # (Auto) 3.3 (1.2-4.9) X10*3/uL Brantley # (Auto) 0.5 (0.1-1.2) X10*3/uL Eos # (Auto) 0.4 (0.0-0.4) X10*3/uL Baso # (Auto) 0.1 (0.0-0.2) X10*3/uL Abs Immat Gran (auto) 0.03 (0.00-0.03) X10*3/uL Absolute Neuts (auto) 3.2 (2.0-8.3) x10*3/uL Absolute Nucleated RBC 0.000 (0.0-0.012) X10*3/uL Nucleated RBC % (auto) 0.0 (0.0-0.2) /100WBC Sodium 142 (135-145) mmol/L Potassium 3.6 (3.3-5.1) mmol/L Chloride 106 (96-108) mmol/L Carbon Dioxide 28 (22-29) mmol/L Anion Gap 12 (12-20) BUN 11 (9-16) mg/dL Creatinine 1.00 (0.5-1.4) mg/dL Estim Creat Clear Calc 64.9 Estimated GFR > 60 Random Glucose 59 L* (60-115) mg/dL Calcium 8.7 D (8.4-10.2) mg/dL Troponin I High Sens < 2.7 (<3.5-35.0) ng/L B-Natriuretic Peptide < 10 (<100) pg/mL Influenza Type A (PCR) NEGATIVE (Negative) Influenza Type B (PCR) NEGATIVE (Negative) RSV RNA Qual (PCR) NEGATIVE (Negative) SARS-CoV-2 RNA (RT-PCR) NEGATIVE (Negative) Independent Interpretation I performed an independent interpretation of an: EKG and Plain X-Ray Interpretation: My independent interpretation patient's chest x-ray is as follows: COPD changes, no acute infiltrates noted compared to a chest x-ray dated 06/24/2024 there is no significant change My independent interpretation of the patient's 12 lead EKG done on 02/01/2025 at 21:58 hours is as follows: Normal sinus rhythm rate of 83, normal VT interval, prolonged QRS duration of 106 milliseconds, normal QTC interval, no ST segment elevation, no ST segment depression, no significant T-wave abnormalities, right bundle-branch block. Compared to EKG dated 06/24/2025 at 14:16 hours there is no significant change Radiology Impression Discussion of test interpretation with radiology: I have reviewed the radiologist's reading. Radiologist Impression: 2 view chest x-ray Comparison: 06/24/2024 Findings: Lungs are clear without acute infiltrates. Bochdalek's hernia left hemidiaphragm. Finding is unchanged from multiple prior studies. No pneumothorax. Heart size normal. No acute bony abnormalities. Impression: No acute processes This document has been electronically signed by: Srini Hernandez MD on 02/01/2025 22:47:05 Prescription Management I considered prescription management with: Antibiotic (Doxycycline) Chronic Conditions Patient?s care impacted by: Other (COPD) Discharge Plan Discharge Clinical Impression: Pleuritic chest pain Acute bronchitis Qualifiers: Bronchitis organism: unspecified organism Qualified Code(s): J20.9 - Acute bronchitis, unspecified Patient Disposition: Home, Self-Care Instructions: Acute Bronchitis (ED) Additional Instructions: Your blood work was unremarkable. Your EKG was normal. Your chest x-ray revealed no evidence of pneumonia. Your symptoms are consistent with bronchitis (infection of your breathing tubes). Take doxycycline 100 mg, 1 pill every 12 hours for 7 days Take Tylenol (acetaminophen) 500 mg pills, 2 pills every 6 hours as needed for pain or fever. Follow-up with your doctor in 2 days. Please return to the emergency department if your symptoms get worse or if you develop any symptoms that are concerning to you. Prescriptions: New doxycycline hyclate 100 mg tablet 100 mg PO Q12H 7 Days Qty: 14 0RF No Action budesonide-formoterol [Symbicort] 160-4.5 mcg/actuation HFA aerosol inhaler 2 puff inhalation BID Qty: 10.2 6RF Spiriva Respimat 2.5 mcg/actuation mist 2 puff inhalation QAM Qty: 4 6RF furosemide 20 mg tablet 20 mg PO QAM Qty: 30 6RF clonazepam [Klonopin] 0.5 mg tablet 0.5 mg PO BID topiramate 50 mg tablet 50 mg PO BEDTIME 30 Days Qty: 30 0RF quetiapine 400 mg tablet 400 mg PO BEDTIME 30 Days Qty: 30 0RF buprenorphine-naloxone [Suboxone] 8-2 mg film 1 film sublingual DAILY 7 Days Qty: 7 0RF ipratropium-albuterol 0.5 mg-3 mg(2.5 mg base)/3 mL solution for nebulization inhalation TID venlafaxine 150 mg capsule,extended release 24hr 150 mg PO DAILY quetiapine 100 mg tablet 100 mg PO 1XD acetaminophen 500 mg tablet 500 mg PO Q6H PRN (Reason: Pain) sildenafil [Viagra] 100 mg tablet 100 mg PO DAILY PRN (Reason: Erectile Dysfunction) baclofen 10 mg tablet 10 mg PO TID pantoprazole 40 mg tablet,delayed release (DR/EC) 40 mg PO DAILY mirtazapine 30 mg tablet 30 mg PO BEDTIME mirtazapine 15 mg tablet 15 mg PO BEDTIME trazodone 50 mg tablet 50 mg PO BEDTIME PRN (Reason: insomnia) atorvastatin 40 mg Tablet 40 mg PO BEDTIME 30 Days Qty: 30 0RF tamsulosin 0.4 mg Capsule 0.8 mg PO DAILY 30 Days Qty: 60 0RF zolpidem 5 mg Tablet 5 mg PO BEDTIME PRN (Reason: insomnia) 15 Days Qty: 15 1RF albuterol sulfate [Ventolin HFA] 90 mcg/actuation HFA aerosol inhaler 2 puff INHALATION Q4-6H PRN (Reason: Wheezing) 30 Days Qty: 6.7 0RF ferrous sulfate 325 mg (65 mg iron) tablet,delayed release (DR/EC) 325 mg PO DAILY buprenorphine-naloxone [Suboxone] 4-1 mg film 1 film sublingual DAILY hydroxyzine HCl 25 mg tablet 25 mg PO BID risperidone 3 mg tablet 3 mg PO BEDTIME venlafaxine 37.5 mg capsule,extended release 24hr 37.5 mg PO DAILY risperidone 1 mg tablet 1 mg PO BEDTIME trazodone 100 mg tablet 100 mg PO BEDTIME Print Language: [place]
[2025-02-01 22:31] LABS: B Type Natriuretic Peptide < 10 pg/mL (<100)
[2025-02-01 22:33] LABS: Troponin-I High Sensitivity < 2.7 ng/L (<3.5-35.0)
[2025-02-01 22:34] VITALS: BP 151/90; PULSE 77; RESP 17; TEMP 36.8; O2SAT 93
--- NOTE | 2025-02-01 22:35 | PC.NURSE ---
this rn assumed care of pt, critical value glucose received. aware, glass frame fitter and provider at bedside. pt reports onset of chest pain with cough, phlegm with green tinged and shortness of breath x1 week. pt denies fever and chills. pt sating 95% on room air, nsr on tele. pt is fully conscious with no deficits and able to follow all commands at this time. 20g placed in right forearm.
--- NOTE | 2025-02-01 22:40 | PC.NURSE ---
per provider, okay for oral hydration, pt given orange juice, drank without difficulty
[2025-02-01 22:45] VITALS: RESP 15
[2025-02-01 22:48] LABS: Resp Syncy Virus RNA Qual PCR NEGATIVE (Negative); SARS COV2 PCR INHOUSE NEGATIVE (Negative)
--- OUTSIDE RECORDS SUMMARY | 2025-02-01 22:50 | XMS_ITS | Patient Health Record ---
Author Organization [facility] Address [address] [place] [address] Care Team Providers Care Stagecraft Teacher Name Role Phone Hemant Mcduffie Unavailable [phone] Reason For Referral No Information Plan Of Treatment No Information
--- OUTSIDE RECORDS SUMMARY | 2025-02-01 22:50 | XMS_ITS | Clinical Summary ---
Author Organization [facility] it[facility] Address [address] [place] [address] Care Team Providers Care Cloth Spreader Screen Printing Name Role Phone Unavailable Primary Care Provider [...] Panel) 06/14/2022 Colorectal Cancer Screening: Colonoscopy 06/14/2022 HIV Screening 06/14/2022 Hepatitis C Screening 06/14/2022 Social Influencers of Health Screening 06/14/2022 COVID-19 Vaccine (1 - 2023-2 5 season) 2024 Depression Screening 07/17/2024 Influenza Vaccine (#1) 2025 RSV Immunization Adult Patie nts (1 [...]
[2025-02-01 23:18] LABS: Glucose, Whole Blood 168 mg/dL (60-115)
[2025-02-02 00:05] VITALS: BP 144/94; PULSE 83; RESP 15; TEMP 37.1; O2SAT 98
[2025-02-02 00:16] VITALS: RESP 17
[2025-02-02 00:20] VITALS: BP 144/94; PULSE 83; RESP 16; TEMP 36.7; O2SAT 95
== END 2025-02-02 00:21 | disposition home or self-care (01) ==
PROVIDERS: Emergency Provider Emergency Medicine Emergency Medical Services; PCP Internal Medicine
DX: R07.89 Other chest pain (principal); J20.9 Acute bronchitis, unspecified; R06.02 Shortness of breath; R05.9 Cough, unspecified; Z03.818 Encounter for observation for suspected exposure to other biological agents ruled out; F11.20 Opioid dependence, uncomplicated; F12.20 Cannabis dependence, uncomplicated; F19.10 Other psychoactive substance abuse, uncomplicated; F14.10 Cocaine abuse, uncomplicated; B19.20 Unspecified viral hepatitis C without hepatic coma; J45.909 Unspecified asthma, uncomplicated; F17.210 Nicotine dependence, cigarettes, uncomplicated; Z79.899 Other long term (current) drug therapy; Z79.02 Long term (current) use of antithrombotics/antiplatelets
CPT/HCPCS: 71046; 80048; 82947; 83880; 84484; 85025; 87637; 93005; 96374; 96376; 99284; 99285; J2270

== ENCOUNTER → 2025-02-01 21:58 | Outpatient (BNV) | payer MEDICAID, SELFPAY | PROVIDERS: Emergency Provider Emergency Medicine Emergency Medical Services; PCP Internal Medicine; Visit Provider Internal Medicine | DX: I45.10 Unspecified right bundle-branch block (principal) | CPT/HCPCS: 93010 ==

== ENCOUNTER → 2025-02-01 21:58 | Outpatient (BNV) | payer MEDICAID, SELFPAY | PROVIDERS: Emergency Provider Emergency Medicine Emergency Medical Services; PCP Internal Medicine; Visit Provider Radiology Diagnostic Radiology | DX: R07.9 Chest pain, unspecified (principal) | CPT/HCPCS: 71046 ==

== ENCOUNTER 2025-03-14 10:25 | Outpatient (AMB) | payer MEDICAID, SELFPAY ==
--- OUTSIDE RECORDS SUMMARY | 2025-03-12 09:00 | XMS_ITS | Encounter Summary ---
Author Organization [employer] Address 75 [facility] 7t [place] [address] Care Team Providers Care Head Of Ethics And Compliance Name Role Phone Vince Lockhart MD Primary Care Provide r Reason for Visit * Reason Comments GBOT Encounter Details Date Type Department Care Team (Latest Contact Info) Description 03/12/2025 9:00 AM EDT Clinical Support [address] [address] Georgina Ann RN Uncomplicated opioid dependence (CMS/HCC) [...] Progress Notes * Georgina Ann RN - 03/12/2025 9:00 AM EDT Patient with heroin and cocaine use disorder Inconsistent follow-ups for his OBAT MAT, complicated by his medical issues Immune to Hep A/B History of Hepatitic C s/p treatment in 2017 (HCV RNA VL undetectable in 08/2023) Declined PrEP Incarceration history x2; lifetime arrests x6 ; 3 adult children (1 killed; 1 in [facility] in [place]) Last LFT (04/03/2024) LAST GBAT VISIT 03/05/2025 UTOX: POS BUP, THC NEG FOR ALL OTHER SUBSTANCES Patient presents for Group-Based Addiction Treatment for OUD Reviewed the group goals, expectations and policies Consented to the group treatment options Actively participated in the group discussion with the topic of: Negative Internal Talk Patient has medications in a locked box and has [facility] dispensing medications at home Following staff present at the visit: MAT Physician, Developmental Psychologist, Clinician, Team RN, and Transfill Technician Opportunities provided to address individual medical/medication/BH concern THIS VISIT: 03/12/2025 Patient presents for Group-Based Addiction Treatment for OUD Reviewed the group goals, expectations and policies Consented to the group treatment options Actively participated in the group discussion with the topic of: Changes Patient has medications in a locked box and has [facility] dispensing medications at home Following staff present at the visit: Developmental Psychologist, Clinician, Team RN, and Transfill Technician Opportunities provided to address individual medical/medication/BH concern This information has been disclosed to you [...] Care Team (Late st Contact Info) Description 03/18/2025 1:30 PM EDT Office Visit [facility] ADULT DENTAL [address] [place] [address] Nils Bower DDS 230 [place] [address] 03/19/2025 9:00 AM EDT Office Visit [address] [address] Alexander Jones MD 230 [place] [address] 03/26/2025 9:00 AM EDT Office Visit [address] [address] Alexander Jones MD [address] [place] [address] 04/22/2025 10:00 AM EDT Office Visit [address] [address] Vince Lockhart MD [address] [place] [address] 07/24/2025 10:00 AM EST Office Visit [facility] OPTOMETRY [address] [place], [place] [phone] Tory Garcia, OD [address] [place] [address] documented as of this encounter Goals Goal Patient Goal Type Associated Problems Recent Progress Patient-Stated? Author Patient will adhere to medication regimen General Improving( 4:15 PM EDT) No Osiel Mendez, MayteD Note: Difficulty with taking medications daily due to no desire Increase coping skills to promote long-term recovery and improve ability to perform daily activities General On track( 4:15 PM EDT) No Georgina Ann, RN documented as of this encounter Visit Diagnoses Diagnosis Uncomplicated opioid dependence (CMS/HCC) documented in this encounter Additional Health Concerns Assessment Noted Time PHQ-9 Depression Total Score: 4 07/02/20 24 10:58 AM EST documented as of this encounter Care Teams Head Of Ethics And Compliance Relationship Specialty Start Date End Date Vince Lockhart MD 230 [place] [address] PCP - General Internal Medicine 04/10/14 [facility] 12/29/23 documented as of this encounter
[2025-03-14 10:31] VITALS: BP 128/77; PULSE 95; TEMP 35.9; O2SAT 94; BMI 24.8
--- NOTE | 2025-03-14 10:31 | A.OFFVIS_ITS ---
Vital Signs 03/14/25 10:31 Height 5 ft 4 in Weight 144 lb 6.444 oz BMI 24.8 BP 128/77 Blood Pressure Location Rt brachial Position Sitting Pulse 95 Pulse Source Pulse Oximeter Temp 96.6 F L Temp Source Temporal Artery Scan Pulse Oximetry (%) 94 Oxygen Delivery Method Room Air Intake Visit Reasons: ED f/u Inside Sales Specialist Required: Yes Inside Sales Specialist Name: Sheila Xavier Fahad.L.Carina Allergies ibuprofen Allergy (Intermediate, Verified 03/14/25 10:35) Stomach Upset penicillin V Allergy (Intermediate, Verified 03/14/25 10:35) rash HPI HPI ED f/u: Details: 59-year-old gentleman, recent 30+ pack-year smoker, followed for underlying moderate COPD, pulmonary nodules, and unrestful sleep/snoring. After the last office visit patient had repeat CT angio chest that showed resolution of his previously noted pulmonary emboli. After the last office visit patient was not able to use his inhalers consistently now presents with worsening symptoms and also with an acute bronchitic exacerbation. [facility] Medical History Acute pain of right shoulder Chronic low back pain without sciatica Hepatitis C Cocaine abuse Opioid dependence Finger lesion Chronic anemia Migraine Routine medical exam Lung mass Suicidal ideation Polysubstance abuse Chronic back pain BPH (benign prostatic hyperplasia) Nicotine dependence Cannabis use disorder, moderate, dependence Cocaine use disorder Pulmonary nodules Emphysema of lung Anxiety Depression Asthma Surgical History Hx of cholecystectomy Social History Household Members: None Housing: Apartment Do you presently have visiting nurse or other home services: No Unable to assess alcohol history related to: Unknown Alcohol intake: current Alcohol intake frequency: former alcohol drinker Alcohol type: beer Patient Tobacco Use Status: Current everyday Tobacco user Tobacco use type: Cigarette Cigarettes Per Day: 2 Years Smoked: many years e-Cigarette/Vaping Use: Never Used Second Hand Smoke Exposure: No Substance Use Type: Crack/Cocaine and Marijuana Advance Directives Date on File: 01/18/23 service: No Current occupational status: unemployed Current occupation: right hand dominant Sexual orientation: Straight/Heterosexual Review of Systems Const Denies daytime sleepiness, Denies excessive sweating, Denies fatigue, Denies fever(s), Denies lethargy, Denies malaise, Denies night sweats, Denies snoring and Denies weight loss Eyes Denies blurry vision and Denies itchy eyes ENT Denies nasal congestion, Denies post nasal drip, Denies sinus pain, Denies sinus pressure and Denies other ( Thrush) Card Denies chest pain, Denies pedal edema, Denies dyspnea, Reports dyspnea on exertion, Denies orthopnea and Denies paroxysmal nocturnal dyspnea Resp Reports cough, Denies hemoptysis, Reports excessive phlegm production, Denies dyspnea, Reports dyspnea on exertion, Denies snoring and Denies wheezing GI Denies abdominal pain and Denies heartburn Musc Denies myalgias, Denies arthralgias and Denies joint swelling Skin/Breast Denies rash Neuro Denies memory loss and Denies seizure-like activity Psych Denies abnormal sleep pattern, Denies anxiety and Denies memory loss Endo Denies excessive sweating, Denies fatigue and Denies heat intolerance Alexei/Lymph Denies easy bruising Aller/Immun Denies itchy eyes, Denies seasonal rhinorrhea and Denies wheezing Physical Exam Vital Signs: Last Vital Signs Temp 96.6 F L 03/14/25 10:31 Pulse 95 03/14/25 10:31 BP 128/77 03/14/25 10:31 Pulse Ox 94 03/14/25 10:31 Oxygen Delivery Method Room Air 03/14/25 10:31 BMI result Body Mass Index 24.8 Const General: no acute distress and alert Nutritional Appearance: not obese Orientation/consciousness: Other orientation findings ( oriented) HEENT Head: Yes atraumatic Eyes General: appearance normal, both eyes and all related structures Sclerae: sclerae normal EOM: EOMs intact bilaterally Neck Neck: Yes supple Lymphatic: no lymphadenopathy noted Resp Effort & Inspection: normal respiratory effort and no use of accessory muscles Auscultation: clear to auscultation bilaterally Cardio Rate: regular rate Rhythm: regular rhythm Heart sounds: no gallops, no murmurs and no rubs Skin General skin exam: other ( warm) Extrem General: No clubbing, No cyanosis and No edema Assessment & Plan Assessment & Plan (1) COPD (chronic obstructive pulmonary disease): Code(s): J44.9 - Chronic obstructive pulmonary disease, unspecified Category: Medical Plan: Suboptimal control as patient has difficulty using multiple inhalers, will consolidate inhaled therapy to Trelegy and albuterol MDI. Will treat acute exacerbation with a course of Levaquin. (2) Personal history of nicotine dependence: Code(s): Z87.891 - Personal history of nicotine dependence Category: Medical Plan: Results of lung cancer screening CT chest reviewed, no worrisome nodules, continue with yearly screening, next in July of 2025. Medications: New xyfcvlwnose-iwnqpsubl-zhakzuox 200-62.5-25 mcg (Trelegy Ellipta) 1 inh inhalation DAILY 1 ea 6RF levofloxacin 750 mg PO DAILY 10 tabs 0RF Discontinued budesonide-formoterol 160-4.5 mcg/actuation (Symbicort) Discontinued Reason: Doctor's Order 2 puffs inhalation BID 10.2 grams 6RF tiotropium bromide 2.5 mcg/actuation (Spiriva Respimat) Discontinued Reason: Doctor's Order 2 puffs inhalation QAM 4 grams 6RF Coding Level of Care Code Est Pt Level 4 (30060) Diagnoses COPD (chronic obstructive pulmonary disease) J44.9 Personal history of nicotine dependence Z87.891
--- OUTSIDE RECORDS SUMMARY | 2025-03-14 11:05 | XMS_ITS | Encounter Summary ---
Author Organization [employer] Address 75 [facility] 7t [place] [address] Care Team Providers Care Ship Boat Or Barge Mate Name Role Phone Vince Lockhart MD Primary Care Provide r Osiel Mendez PharmD Unavailable [phone] Reason for Visit * Reason Onset Date Comments Med Refill 05/16/2023 Encounter Details Date Type Department Care Team ([facility] st Contact Info) Description 05/16/[address] [facility] MEDICINE [address] [place] [address] Vince Lockhart MD [address] [place] [address] Med Refill Social History Tobacco Use Types [...] AM EDT documented as of this encounter Functional Status * Over the past 2 weeks, how often have you been bothered by any of the following problems? Question Answer Date of Assessment Author Patient Health Questionnaire-2 Score 5 04/18 2:35 PM EDT Luz Randolph * If you checked off any problems on this questionnaire so far, Question Answer Date of Assessment Author How difficult have these problems made it for you to do your work, take care of things at home, or get along with other people? Extremely difficult 05/16/2023 2:35 PM EDT Luz Randolph * Over the past 2 weeks, how often have you been bothered by any of the following problems? Question Answer Date of Assessment Author Little interest or pleasure in doing things More than half the days 05/16/2023 2:35 PM ALEXANDROT Luz Randolph Feeling down, depressed, or hopeless Nearly every day 05/16/2023 2:35 PM EDT Luz Randolph Trouble falling or staying asleep, or sleeping too much Nearly every day 05/16/2023 2:35 PM EDT Luz Randolph Feeling tired or having little energy Nearly every day 05/16/2023 2:35 PM EDT Luz Randolph Poor appetite or overeating Nearly every day 2:35 PM EDT Luz Randolph Feeling bad about yourself - or that you are a failure or have let yourself or your family down Nearly every day 05/16/2023 2:35 PM EDT Luz Randolph Trouble concentrating on things, such as reading the newspaper or watching television Nearly every day 05/16/2023 2:35 PM EDT Luz Randolph Moving or speaking so slowly that other people could have noticed? Or the opposite - being so fidgety or restless that you have been moving around a lot more than usual. Nearly every day 05/16/2023 2:35 PM EDT Luz Randolph Thoughts that you would be better off or hurting yourself in some way Nearly every day 05/16/2023 2:35 PM EDT Luz Randolph Patient Health Questionnaire-9 Score 26 05/16/2023 2:35 PM EDT Luz Randolph documented as of this encounter Miscellaneous Notes * Telephone Encounter - Zena Rizzo - 05/16/2023 12:54 PM EDT Tc from [facility] requesting med refill on; clonazePAM (KlonoPIN) 0.5 MG tablet documented in this encounter Plan of Treatment Upcoming Encounters Date Type Department Care Team (Late st Contact Info) Description 03/18/2025 1:30 PM EDT Office Visit [facility] ADULT DENTAL [address] [place] [address] Nils Bower DDS [address] [place] [address] 03/19/2025 9:00 AM EDT Office Visit [facility] MEDICINE [address] [place] [address] Alexander Jones MD [address] [place] [address] 03/26/2025 9:00 AM EDT Office Visit [facility] MED[facility]INE [address] [place] [address] Alexander Jones MD 230 [facility] [place] [address] 04/22/2025 10:00 AM EDT Office Visit [facility] MED[facility] 230 [facility] [place] [address] Vince Lockhart MD [address] [place] [address] 07/24/2025 10:00 AM EST Office Visit [facility] OPTOMETRY [address] [place], [place] [phone] Tory Garcia, OD [address] [place] [address] documented as of this encounter Goals Goal Patient Goal Type Associated Problems Recent Progress Patient-Stated? Author Patient will adhere to medication regimen General Improving( 4:15 PM EDT) No Osiel Mendez, Castro Note: Difficulty with taking medications daily due to no desire documented as of this encounter Visit Diagnoses Not on filedocumented in this encounter Additional Health Concerns Assessment Noted Time PHQ-9 Depression Total Score: 26 023 2:35 PM EDT documented as of this encounter Care Teams Ship Boat Or Barge Mate Relationship Specialty Start Date End Date Vince Lockhart MD [address] [place] [address] PCP - General Internal Medicine 04/10/14 Osiel Mendez, MayteD [place] [address] Pharmacist Internal Medicine 12/19/22 06/11/23 [facility] 12/29/23 documented as of this encounter
--- OUTSIDE RECORDS SUMMARY | 2025-03-14 11:05 | XMS_ITS | Encounter Summary ---
Author Organization [employer] Address 75 [facility] 7t [place] [address] Care Team Providers Care Mold Maker Plastic Molds Name Role Phone Vince Lockhart MD Primary Care Provide r Reason for Visit * Reason Comments Med Refill Encounter Details Date Type Department Care Team (Late st Contact Info) Description 02/27/[address] [facility] MEDICINE [address] [place], [place] [phone] Vince Lockhart MD 230 [place], [place] [phone] Pulmonary emphysema, unspecified emphysema type (CMS/HCC) Social [...] 03/18/2025 1:30 PM EDT Office Visit [facility] ADULT DENTAL [address] [place] [address] Nils Bower DDS [address] [place] [address] 03/19/2025 9:00 AM EDT Office Visit [facility] MEDICINE [address] [place] [address] Alexander Jones MD [address] [place] [address] 03/26/2025 9:00 AM EDT Office Visit [address] [address] Alexander Jones MD [address] [place] [address] 04/22/2025 10:00 AM EDT Office Visit [address] [address] Vince Lockhart MD [address] [place] [address] 07/24/2025 10:00 AM EST Office Visit [facility] OPTOMETRY [address] [place] [address] Tory Garcia, OD [address] [place] [address] documented as of this encounter Goals Goal Patient Goal Type Associated Problems Recent Progress Patient-Stated? Author Patient will adhere to medication regimen General Improving( 4:15 PM EDT) No Osiel Mendez, MayteD Note: Difficulty with taking medications daily due to no desire Increase coping skills to promote long-term recovery and improve ability to perform daily activities General On track( 025 4:15 PM EDT) No Georgina Ann, GUERO documented as of this encounter Visit Diagnoses Diagnosis Pulmonary emphysema, unspecified emphysema type (CMS/HCC) documented in this encounter Additional Health Concerns Assessment Noted Time PHQ-9 Depression Total Score: 4 07/02/20 10:58 AM EST documented as of this encounter Care Teams Mold Maker Plastic Molds Relationship Specialty Start Date End Date Vince Lockhart MD [address] [place] [address] PCP - General Internal Medicine 04/10/14 [facility] 12/29/23 documented as of this encounter
--- OUTSIDE RECORDS SUMMARY | 2025-03-14 11:05 | XMS_ITS | Encounter Summary ---
Author Organization [employer] Address 75 [facility] 7t [place] [address] Care Team Providers Care Youth Liaison Officer Name Role Phone Vince Lockhart MD Primary Care Provide r Osiel Mendez PharmD Unavailable [phone] Reason for Visit * Reason Comments Med Refill Encounter Details Date Type Department Care Team (Late st Contact Info) Description 06/02/2023 Refill [facility] MEDICINE [address] [place], [place] [phone] Vince Lockhart MD [address] [place], [place] [phone] Depressive disorder Social History Tobacco Use Types [...] Description 03/18/2025 1:30 PM EDT Office Visit [facility] ADULT DENTAL [address] [place] [address] Nils Bower DDS [address] [place] [address] 03/19/2025 9:00 AM EDT Office Visit [facility] MEDICINE [address] [place] [address] Alexander Jones MD [address] [place] [address] 03/26/2025 9:00 AM EDT Office Visit [facility] MEDICINE [address] [place] [address] Alexander Jones MD [address] [place] [address] 04/22/2025 10:00 AM EDT Office Visit [facility] MEDICINE [address] [place] [address] Vince Lockhart MD [address] [place] [address] 07/24/2025 10:00 AM EST Office Visit [facility] OPTOMETRY [address] [place], [place] [phone] Tory Garcia, OD [address] [place] [address] documented as of this encounter Goals Goal [...] documented as of this encounter Care Teams Youth Liaison Officer Relationship Specialty Start Date End Date Vince Lockhart MD [address] [place] [address] PCP - General Internal Medicine 04/10/14 Osiel Mendez, Castro [address] [place] [address] Pharmacist Internal Medicine 12/19/22 06/11/23 [facility] 12/29/23 documented as of this encounter
--- OUTSIDE RECORDS SUMMARY | 2025-03-14 11:05 | XMS_ITS | Encounter Summary ---
Author Organization [email or web address] Address 75 [facility] 7t [place] [address] Care Team Providers Care Linking Machine Operator Name Role Phone Vince Lockhart MD Primary Care Provide r Reason for Visit * Reason Comments Med Refill Encounter Details Date Type Department Care Team (Late st Contact Info) Description 11/22/2024 Refill [facility] MEDICINE [address] [place], [place] [phone] Alexander Jones MD [address] [place], [place] [phone] Uncomplicated opioid dependence (CMS/HCC) Social History Tobacco [...] Description 03/18/2025 1:30 PM EDT Office Visit [facility] ADULT DENTAL [address] [place] [address] Nils Bower DDS [address] [place] [address] 03/19/2025 9:00 AM EDT Office Visit [facility] MED[facility]INE [address] [place] [address] Alexander Jones MD [address] [place] [address] 03/26/2025 9:00 AM EDT Office Visit [facility] [address] [place] [address] Alexander Jones MD [address] [place] [address] 04/22/2025 10:00 AM EDT Office Visit [facility] [address] [place] [address] Vince Lockhart MD [address] [place] [address] 07/24/2025 10:00 AM EST Office Visit [facility] OPTOMETRY [address] [place], [place] [phone] Tory Garcia, OD [address] [place] [address] documented as of this encounter Goals Goal [...] track( 4:15 PM EDT) No Georgina Ann, GUERO documented as of this encounter Visit Diagnoses Diagnosis Uncomplicated opioid dependence (CMS/HCC) documented in this encounter Additional Health Concerns Assessment Noted Time PHQ-9 Depression Total Score: 4 07/02/20 10:58 AM EST documented as of this encounter Care Teams Linking Machine Operator Relationship Specialty Start Date End Date Vince Lockhart MD [address] [place] [address] PCP - General Internal Medicine 04/10/14 [facility] 12/29/23 documented as of this encounter
--- OUTSIDE RECORDS SUMMARY | 2025-03-14 11:05 | XMS_ITS | Encounter Summary ---
Author Organization [employer] Address 75 [facility] 7t [place] [address] Care Team Providers Care Binder Selector Name Role Phone Vince Lockhart MD Primary Care Provide r Osiel Mendez PharmD Unavailable [phone] Reason for Visit * Reason Onset Date Comments Nurse Triage 03/21/2023 Encounter Details Date Type Department Care Team ([facility] st Contact Info) Description 03/21/2023 Telephone [facility] MEDICINE [address] [place] [address] Vince Lockhart MD [address] [place] [address] Nurse Triage Social History Tobacco Use Types [...] 03/28/23. I do not see Ultram in [employer] med list but there is an older script in [facility] for Tramadol from 2013. I see pt. [...] Chioma Frank - 03/21/2023 12:25 PM EDT Sander from [facility] Symptom: Back Pain - Not From Injury Outcome: Schedule an appointment to be seen within 3 days Reason: Caller denied all higher acuity questions The caller accepted this outcome Please call [phone] documented in this encounter Plan of Treatment Upcoming Encounters Date Type Department Care Team (Late st Contact Info) Description 03/18/2025 1:30 PM EDT Office Visit [facility] ADULT DENTAL [address] [place] [address] Nils Bower DDS [address] [place] [address] 03/19/2025 9:00 AM EDT Office Visit [facility] MEDICINE [address] [place] [address] Alexander Jones MD [address] [place] [address] 03/26/2025 9:00 AM EDT Office Visit [facility] MEDICINE [address] [place] [address] Alexander Jones MD [address] [place] [address] 04/22/2025 10:00 AM EDT Office Visit [facility] MEDICINE [address] [place] [address] Vince Lockhart MD [address] [place] [address] 07/24/2025 10:00 AM EST Office Visit [facility] OPTOMETRY [address] [place] [address] TarTory zaman, OD [address] [place] [address] documented as of this encounter Goals Goal Patient Goal Type Associated Problems Recent Progress Patient-Stated? Author Patient will adhere to medication regimen General Improving( 4:15 PM EDT) Osiel Vargas, PharmD Note: Difficulty with taking medications daily due to no desire documented as of this encounter Visit Diagnoses Not on filedocumented in this encounter Additional Health Concerns Assessment Noted Time PHQ-9 Depression Total Score: 8 12/17/19 23 1:48 PM EDT documented as of this encounter Care Teams Binder Selector Relationship Specialty Start Date End Date Vince Lockhart MD 230 [place] [address] PCP - General Internal Medicine 04/10/14 Osiel Mendez PharmD [address] [place] [address] Pharmacist Internal Medicine 12/19/22 06/11/23 [facility] 12/29/23 documented as of this encounter
--- OUTSIDE RECORDS SUMMARY | 2025-03-14 11:05 | XMS_ITS | Encounter Summary ---
Author Organization [employer] Address 75 [facility] 7t [place] [address] Care Team Providers Care Analytic Manager Name Role Phone Vince Lockhart MD Primary Care Provide r Reason for Visit * Reason Comments Med Refill Encounter Details Date Type Department Care Team (Late st Contact Info) Description 08/21/2024 Refill [facility] [address] [place], [place] [phone] Vince Lockhart MD 230 [place], [place] [phone] Social History Tobacco Use Types Packs/Day Years [...] Description 03/18/2025 1:30 PM EDT Office Visit [facility] [address] [place] [address] Nils Bower DDS [address] [place] [address] 03/19/2025 9:00 AM EDT Office Visit [address] [address] Alexander Jones MD [address] [place] [address] 03/26/2025 9:00 AM EDT Office Visit [address] [address] Alexander Jones MD [address] [place] [address] 04/22/2025 10:00 AM EDT Office Visit [address] [address] Vince Lockhart MD [address] [place] [address] 07/24/2025 10:00 AM EST Office Visit [facility] [address] [place], [place] [phone] Derekaustyn Tory, OD 267 [place] [address] documented as of this encounter Goals Goal [...] documented as of this encounter Care Teams Analytic Manager Relationship Specialty Start Date End Date Vince Lockhart MD [address] [place] [address] PCP - General Internal Medicine 04/10/14 [facility] 12/29/23 documented as of this encounter
--- OUTSIDE RECORDS SUMMARY | 2025-03-14 11:05 | XMS_ITS | Encounter Summary ---
Author Organization [employer] Address 75 [facility] 7t [place] [address] Care Team Providers Care Filter Press Pumper Name Role Phone Vince Lockhart MD Primary Care Provide r Osiel Mendez PharmD Unavailable [phone] Reason for Visit * Reason Comments Med Refill Encounter Details Date Type Department Care Team (Late st Contact Info) Description 03/07/2023 Refill [facility] 230 [place] [address] Vince Lockhart MD 230 [place] [address] Difficulty sleeping Social History Tobacco Use Types [...] 1:30 PM EDT Office Visit [facility] 230 [place] [address] Nils Bower DDS 230 [place] [address] 03/19/2025 9:00 AM EDT Office Visit [facility] 230 [place] [address] Alexander Jones MD 230 [place] [address] 03/26/2025 9:00 AM EDT Office Visit [facility] 230 [place] [address] Alexander Jones MD 230 [place] [address] 04/22/2025 10:00 AM EDT Office Visit [facility] MED[facility] [address] [place] [address] Vince Lockhart MD 230 [place] [address] 07/24/2025 10:00 AM EST Office Visit [facility] [address] [place] [address] Tory Garcia, OD 267 [place] [address] documented as of this encounter Goals Goal Patient Goal Type Associated Problems Recent Progress Patient-Stated? Author Patient will adhere to medication regimen General Improving( 4:15 PM EDT) Osiel Vargas, MayteD Note: Difficulty with taking medications daily due to no desire documented as of this encounter Visit Diagnoses Diagnosis Difficulty sleeping Unspecified sleep disturbance documented in this encounter Additional Health Concerns Assessment Noted Time PHQ-9 Depression Total Score: 8 12/17/19 23 1:48 PM EDT documented as of this encounter Care Teams Filter Press Pumper Relationship Specialty Start Date End Date Vince Lockhart MD [address] [place] [address] PCP - General Internal Medicine 04/10/14 Osiel Mendez, MayteD [address] [place] [address] [place] [phone] Pharmacist Internal Medicine 12/19/22 06/11/23 [facility] 12/29/23 documented as of this encounter
--- OUTSIDE RECORDS SUMMARY | 2025-03-14 11:05 | XMS_ITS | Encounter Summary ---
Author Organization [employer] Address 75 [facility] 7t [place] [address] Care Team Providers Care Process Engineering Technician Name Role Phone Vince Lockhart MD Primary Care Provide r Reason for Visit * Reason Comments Med Refill Encounter Details Date Type Department Care Team (Late st Contact Info) Description 09/21/2023 Refill [facility] 230 [place], [place] [phone] Vince Lockhart MD 230 [place], [place] [phone] Hospital discharge follow-up Social History Tobacco Use [...] [facility] [address] [place] [address] Nils Bower DDS [address] [place] [address] 03/19/2025 9:00 AM EDT Office Visit [facility] [address] [place] [place] [address] Alexander Jones MD [address] [place] [address] 03/26/2025 9:00 AM EDT Office Visit [address] [address] Alexander Jones MD [address] [place] [address] 04/22/2025 10:00 AM EDT Office Visit [address] [address] Vince Lockhart MD [address] [place] [address] 07/24/2025 10:00 AM EST Office Visit [facility] [address] [place] [address] Tory Garcia, OD 267 [place] [address] documented as of this encounter Goals Goal [...] documented as of this encounter Care Teams Process Engineering Technician Relationship Specialty Start Date End Date Vince Lockhart MD [address] [place] [address] PCP - General Internal Medicine 04/10/14 [facility] [place] 12/29/23 documented as of this encounter
--- OUTSIDE RECORDS SUMMARY | 2025-03-14 11:05 | XMS_ITS | Encounter Summary ---
Author Organization [employer] Address 75 [facility] 7t [place] [address] Care Team Providers Care Engine Tester Name Role Phone Vince Lockhart MD Primary Care Provide r Reason for Visit * Reason Onset Date Comments Error 10/20/2023 Encounter Details Date Type Department Care Team ([facility] st Contact Info) Description 10/20/2023 Telephone [facility] 230 [place], [place] [phone] Vince Lockhart MD 230 [place], [place] [phone] Error Social History Tobacco Use Types Packs/Day [...] Description 03/18/2025 1:30 PM EDT Office Visit [facility] [address] [place] [address] Nils Bower DDS [address] [place] [address] 03/19/2025 9:00 AM EDT Office Visit [facility] [address] [place] [address] Alexander Jones MD [address] [place] [address] 03/26/2025 9:00 AM EDT Office Visit [facility] [address] [place] [address] Alexander Jones MD [address] [place] [address] 04/22/2025 10:00 AM EDT Office Visit [facility] [address] [place] [address] Vnice Lockhart MD [address] [place] [address] 07/24/2025 10:00 AM EST Office Visit [facility] [address] [place] [address] Derekaustyn Tory, OD [address] [place] [address] documented as of this encounter Goals Goal [...] documented as of this encounter Care Teams Engine Tester Relationship Specialty Start Date End Date Vince Lockhart MD 230 [place] [address] PCP - General Internal Medicine 04/10/14 [facility] 12/29/23 documented as of this encounter
--- OUTSIDE RECORDS SUMMARY | 2025-03-14 11:05 | XMS_ITS | Encounter Summary ---
Author Organization [employer] Address 75 [facility] 7t [place] [address] Care Team Providers Care Wave Guide Assembler Name Role Phone Vince Lockhart MD Primary Care Provide r Osiel Mendez PharmD Unavailable [phone] Reason for Visit * Reason Onset Date Comments Medication Question 03/21/2023 Encounter Details Date Type Department Care Team ([facility] st Contact Info) Description 03/21/[address] [facility] 230 [place] [address] Vince Lockhart MD 230 [place] [address] Medication Question Social History Tobacco Use Types [...] PM EDT Telephone call placed to Adriana ([facility]). Explained that we are not prescribing [...] 12:46 PM EDT Tc from Adriana at [facility] calling in regards to message above. States pt is planning on going to hospital due to lack of pain control. Please contact adriana at [phone] * Telephone Encounter - Chioma Frank - 03/21/2023 12:28 PM EDT Tc from Adriana at [facility] requesting a call back, in regards to medication tramadol 50 mg. documented in this encounter Plan of Treatment Upcoming Encounters Date Type Department Care Team (Late st Contact Info) Description 03/18/2025 1:30 PM EDT Office Visit [facility] ADULT DENTAL 230 [place] [address] Nils Bower, AMANDAS 230 [place] [address] 03/19/2025 9:00 AM EDT Office Visit [facility] 230 [place] [address] Alexander Jones MD 230 [place] [address] 03/26/2025 9:00 AM EDT Office Visit [facility] [address] [place] [address] Alexander Jones MD 230 [place] [address] 04/22/2025 10:00 AM EDT Office Visit [facility] [address] [place] [address] Vince Lockhart MD 230 [place] [address] 07/24/2025 10:00 AM EST Office Visit [facility] 267 [place] [address] TarkaTory, OD 267 [place] [address] documented as of this encounter Goals Goal Patient Goal Type Associated Problems Recent Progress Patient-Stated? Author Patient will adhere to medication regimen General Improving( 4:15 PM EDT) No Osiel Mendez PharmD Note: Difficulty with taking medications daily due to no desire documented as of this encounter Visit Diagnoses Not on filedocumented in this encounter Additional Health Concerns Assessment Noted Time PHQ-9 Depression Total Score: 8 12/17/19 23 1:48 PM EDT documented as of this encounter Care Teams Wave Guide Assembler Relationship Specialty Start Date End Date Vince Lockhart MD [address] [place] [address] PCP - General Internal Medicine 04/10/14 Osiel Mendez PharmD [address] [place] [address] Pharmacist Internal Medicine 12/19/22 06/11/23 [facility] 12/29/23 documented as of this encounter
--- OUTSIDE RECORDS SUMMARY | 2025-03-14 11:05 | XMS_ITS | Encounter Summary ---
Author Organization [employer] Address 75 [facility] 7t [place] [address] Care Team Providers Care Parts Counterperson Name Role Phone Vince Lockhart MD Primary Care Provide r Reason for Visit * Reason Onset Date Comments PT-1 08/28/2024 Encounter Details Date Type Department Care Team ([facility] st Contact Info) Description 08/28/2024 Telephone [facility] 230 [place], [place] [phone] Vince Lockhart MD 230 [place], [place] [phone] PT-1 Social History Tobacco Use Types Packs/Day [...] Y/N: Yes Provider name or facility name: [facility] Facility Address: [address] [place] [address] Escort needed: Y/N: No Do you have a wheelchair: Y/N: No If yes- Manual or electric: N/A Visits: Once a week documented in this encounter Plan of Treatment Upcoming Encounters Date Type Department Care Team (Late st Contact Info) Description 03/18/2025 1:30 PM EDT Office Visit [facility] [address] [place] [address] Nils Bower DDS 230 [place] [address] 03/19/2025 9:00 AM EDT Office Visit [facility] [address] [place] [address] Alexander Jones MD 230 [place] [address] 03/26/2025 9:00 AM EDT Office Visit [facility] 230 [place] [address] Alexander Jones MD 230 [place] [address] 04/22/2025 10:00 AM EDT Office Visit [facility] 230 [place] [address] Vince Lockhart MD 230 [place] [address] 07/24/2025 10:00 AM EST Office Visit [facility] [address] [place] [address] TarTory zaman, OD 267 [place] [address] documented as of this encounter Goals Goal Patient Goal Type Associated Problems Recent Progress Patient-Stated? Author Patient will adhere to medication regimen General Improving( 4:15 PM EDT) No Osiel Mendez, PharmD Note: Difficulty with taking medications daily due to no desire documented as of this encounter Visit Diagnoses Not on filedocumented in this encounter Additional Health Concerns Assessment Noted Time PHQ-9 Depression Total Score: 4 07/02/20 10:58 AM EST documented as of this encounter Care Teams Parts Counterperson Relationship Specialty Start Date End Date Vince Lockhart MD [address] [place] [address] PCP - General Internal Medicine 04/10/14 [facility] 12/29/23 documented as of this encounter
--- OUTSIDE RECORDS SUMMARY | 2025-03-14 11:05 | XMS_ITS | Encounter Summary ---
Author Organization [email or web address] Address 75 [facility] 7t [place] [address] Care Team Providers Care Airfield Defence Guard Name Role Phone Vince Lockhart MD Primary Care Provide r Reason for Visit * Reason Onset Date Comments Med Refill 03/07/2025 Encounter Details Date Type Department Care Team ([facility] st Contact Info) Description 03/07/2025 Refill [facility] 230 [place], [place] [phone] Vince Lockhart MD 230 [place], [place] [phone] Pulmonary emphysema, unspecified emphysema type (CMS/HCC) Social [...] Telephone Encounter - Michelle Shin RN - 03/10/2025 10:03 AM EDT Telephone call placed to all 3 pharmacies on file: -[facility]: no symbicort and spiriva or stiolto on file -[facility]: no symbicort and spiriva or stiolto on file -[facility]: Used to get Symbicort 160 but that was in 2022 Reviewed med list for albuterol req refill - can you please call [facility] to see when last filled symbicort and spiriva or stiolto? Per Dr. Gerber's note, should be on symbicort BID but no fill hx in med reconciliation. No spiriva or stiolto either but these are not mentioned in Dr. Gerber's note. Please reconcile pulm meds. thanks * Telephone Encounter - Sheila Garvin LPN - 03/07/2025 1:38 PM EDT PCP VAC. Last seen 01/28/25. * Telephone Encounter - Wero Kwon - 03/07/2025 1:28 PM EDT TC from pt requesting medication refill. Medications needing refill : albuterol (Ventolin HFA) 108 (90 Base) MCG/ACT inhaler ipratropium-albuterol (Duo-Neb) 0.5-2.5 mg/3 mL nebulizer solution To be sent to: [facility] - [place], [place] - [address] documented in this encounter Plan of Treatment Upcoming Encounters Date Type Department Care Team (Late st Contact Info) Description 03/18/2025 1:30 PM EDT Office Visit [facility]ULT D[facility] [address] [place] [address] Nils Bower DDS [address] [place] [address] 03/19/2025 9:00 AM EDT Office Visit [facility]INE [address] [place] [address] Alexander Jones MD 230 [place] [address] 03/26/2025 9:00 AM EDT Office Visit [facility] [address] [place] [address] Alexander Jones MD 230 [place] [address] 04/22/2025 10:00 AM EDT Office Visit [facility]INE [address] [place] [address] Vince Lockhart MD [address] [place] [address] 07/24/2025 10:00 AM EST Office Visit [facility] [address] [place] [address] Tory Garcia, OD [address] [place] [address] documented as of this encounter Goals Goal [...] documented as of this encounter Care Teams Airfield Defence Guard Relationship Specialty Start Date End Date Vince Lockhart MD [address] [place] [address] PCP - General Internal Medicine 04/10/14 [facility] 12/29/23 documented as of this encounter
--- OUTSIDE RECORDS SUMMARY | 2025-03-14 11:05 | XMS_ITS | Encounter Summary ---
Author Organization [employer] Address 75 [facility] 7t [place] [address] Care Team Providers Care Cable Testers Helper Name Role Phone Vince Lockhart MD Primary Care Provide r Osiel Mendez PharmD Unavailable [phone] Reason for Visit * Reason Comments Med Refill Encounter Details Date Type Department Care Team (Late st Contact Info) Description 03/14/2023 Refill [facility] MEDICINE 230 [place] [address] Vince Lockhart MD 230 [place] [address] Pulmonary emphysema, unspecified emphysema type (CMS/HCC) Social [...] Description 03/18/2025 1:30 PM EDT Office Visit [facility] ADULT DENTAL 230 [place] [address] Nils Bower, DDS 230 [place] [address] 03/19/2025 9:00 AM EDT Office Visit [facility] MEDICINE [address] [place] [address] Alexander Jones MD 230 [place] [address] 03/26/2025 9:00 AM EDT Office Visit [facility] [address] [place] [address] Alexander Jones MD 230 [place] [address] 04/22/2025 10:00 AM EDT Office Visit [facility] [address] [place] [address] Vince Lockhart MD 230 [place] [address] 07/24/2025 10:00 AM EST Office Visit [facility] 267 [place] [address] Taraustyn Tory, OD 267 [place] [address] documented as of this encounter Goals Goal [...] documented as of this encounter Care Teams Cable Testers Helper Relationship Specialty Start Date End Date Vince Lockhart MD 230 [place] [address] PCP - General Internal Medicine 04/10/14 Osiel Mendez, Castro 230 [place] [address] Pharmacist Internal Medicine 12/19/22 06/11/23 [facility] 12/29/23 documented as of this encounter
--- OUTSIDE RECORDS SUMMARY | 2025-03-14 11:05 | XMS_ITS | Encounter Summary ---
Author Organization [employer] Address 75 [facility] 7t [place] [address] Care Team Providers Care Professor Of Business Administration Name Role Phone Vince Lockhart MD Primary Care Provide r Encounter Details Date Type Department Care Team ([facility] st Contact Info) Description 11/22/2024 Orders Only [facility] MEDICINE 230 [place] [address] Georgina Ann RN Uncomplicated opioid dependence (CMS/HCC) [...] Description 03/18/2025 1:30 PM EDT Office Visit [facility] ADULT DENTAL [address] [place] [address] Nils Bower DDS [address] [place] [address] 03/19/2025 9:00 AM EDT Office Visit [facility] MEDICINE [address] [place] [address] Alexander Jones MD [address] [place] [address] 03/26/2025 9:00 AM EDT Office Visit [facility] MED[facility] [address] [place] [address] Alexander Jones MD [address] [place] [address] 04/22/2025 10:00 AM EDT Office Visit [facility] MED[facility] [address] [place] [address] Vince Lockhart MD [address] [place] [address] 07/24/2025 10:00 AM EST Office Visit [facility] [address] [place] [address] Tory Garcia, OD 267 [place] [address] documented as of this encounter Goals Goal Patient Goal Type Associated Problems Recent Progress Patient-Stated? Author Patient will adhere to medication regimen General Improving( 4:15 PM EDT) No Osiel Mendez, MayteD Note: Difficulty with taking medications daily due to no desire Increase coping skills to promote long-term recovery and improve ability to perform daily activities General On track( 4:15 PM EDT) No Georgina Ann RN documented as of this encounter Visit Diagnoses Diagnosis Uncomplicated opioid dependence (CMS/HCC) documented in this encounter Additional Health Concerns Assessment Noted Time PHQ-9 Depression Total Score: 4 07/02/20 24 10:58 AM EST documented as of this encounter Care Teams Professor Of Business Administration Relationship Specialty Start Date End Date Vince Lockhart MD [address] [place] [address] PCP - General Internal Medicine 04/10/14 [facility] 12/29/23 documented as of this encounter
--- OUTSIDE RECORDS SUMMARY | 2025-03-14 11:05 | XMS_ITS | Encounter Summary ---
Author Organization [employer] Address [address] [facility] 7t [place] [address] Care Team Providers Care Wireless Consultant Name Role Phone Vince Lockhart MD Primary Care Provide r Osiel Mendez PharmD Unavailable [phone] Reason for Visit * Reason Comments Med Refill Encounter Details Date Type Department Care Team (Late st Contact Info) Description 03/03/2023 Refill [facility] MED[facility]INE 230 [place] [address] Vince Lockhart MD 230 [place], [place] [phone] Depressive disorder; Difficulty sleeping Social History Tobacco [...] Description 03/18/2025 1:30 PM EDT Office Visit [facility] ADULT DENTAL 230 [place] [address] Nils Bower DDS 230 [place] [address] 03/19/2025 9:00 AM EDT Office Visit [facility] MEDICINE [address] [place] [address] Alexander Jones MD [address] [place] [address] 03/26/2025 9:00 AM EDT Office Visit [facility] MED[facility] [address] [place] [address] Alexander Jones MD [address] [place] [address] 04/22/2025 10:00 AM EDT Office Visit [facility] MED[facility] [address] [place] [address] Vince Lockhart MD [address] [place] [address] 07/24/2025 10:00 AM EST Office Visit [facility] 267 [place] [address] Tory Garcia, OD 267 [place] [address] documented as of this encounter Goals Goal [...] documented as of this encounter Care Teams Wireless Consultant Relationship Specialty Start Date End Date Vince Lockhart MD [address] [place] [address] PCP - General Internal Medicine 04/10/14 Osiel Mendez PharmD 230 [place] [address] Pharmacist Internal Medicine 12/19/22 06/11/23 [facility] 12/29/23 documented as of this encounter
--- OUTSIDE RECORDS SUMMARY | 2025-03-14 11:05 | XMS_ITS | Encounter Summary ---
Author Organization [employer] Address 75 [facility] 7t [place] [address] Care Team Providers Care Annealing Operator Name Role Phone Vince Lockhart MD Primary Care Provide r Osiel Mendez PharmD Unavailable [phone] Reason for Visit * Reason Onset Date Comments PT1 05/03/2023 Encounter Details Date Type Department Care Team ([facility] st Contact Info) Description 05/03/2023 Telephone [facility] MEDICINE [address] [place] [address] Vince Lockhart MD 230 [place] [address] PT1 Social History Tobacco Use Types Packs/Day [...] housing situation today? I have mehul seferino 04/23/[address] you li [...] Time: 11:30 am Visits: n/a Address: [address] [place] [address] [facility] Wheel Chair: no Emulsification Operator Needed: no segmental paving supervisor location confirmed: [address] [place] [address] documented in this encounter Plan of Treatment Upcoming Encounters Date Type Department Care Team (Late st Contact Info) Description 03/18/2025 1:30 PM EDT Office Visit [facility] ADULT DENTAL 230 [place] [address] Nils Bower DDS 230 [place] [address] 03/19/2025 9:00 AM EDT Office Visit [facility] MEDICINE 230 [place] [address] Alexander Jones MD 230 [place] [address] 03/26/2025 9:00 AM EDT Office Visit [facility] MEDICINE [address] [place] [address] Alexander Jones MD 230 [place] [address] 04/22/2025 10:00 AM EDT Office Visit [facility] MEDICINE [address] [place] [address] Vince Lockhart MD 230 [place] [address] 07/24/2025 10:00 AM EST Office Visit [facility] OPTOMETRY 267 [place] [address] TarkaTory, OD 267 [place] [address] documented as of this encounter Goals Goal [...] documented as of this encounter Care Teams Annealing Operator Relationship Specialty Start Date End Date Vince Lockhart MD [address] [place] [address] PCP - General Internal Medicine 04/10/14 Osiel Mendez PharmD [address] [place] [address] Pharmacist Internal Medicine 12/19/22 06/11/23 [facility] 12/29/23 documented as of this encounter
--- OUTSIDE RECORDS SUMMARY | 2025-03-14 11:05 | XMS_ITS | Encounter Summary ---
Author Organization [employer] Address 75 [facility] 7t [place] [address] Care Team Providers Care Telephone Lineman Name Role Phone Vince Lockhart MD Primary Care Provide r Encounter Details Date Type Department Care Team ([facility] st Contact Info) Description 06/19/2023 Telephone [facility] MEDICINE 230 [place], [place] [phone] Vince Lockhart MD 230 [place], [place] [phone] Social History Tobacco Use Types Packs/Day Years [...] 03/18/2025 1:30 PM EDT Office Visit [facility] ADULT DENTAL [address] [place] [address] Nils Bower DDS [address] [place] [address] 03/19/2025 9:00 AM EDT Office Visit [facility] MEDICINE [address] [place] [address] Alexander Jones MD [address] [place] [address] 03/26/2025 9:00 AM EDT Office Visit [facility] MEDICINE [address] [place] [address] Alexander Jones MD [address] [place] [address] 04/22/2025 10:00 AM EDT Office Visit [facility] MEDICINE [address] [place] [address] Vince Lockhart MD [address] [place] [address] 07/24/2025 10:00 AM EST Office Visit [facility] OPTOMETRY [address] [place] [address] Tory Garcia, OD [address] [place] [address] documented as of this encounter Goals Goal [...] documented as of this encounter Care Teams Telephone Lineman Relationship Specialty Start Date End Date Vince Lockhart MD [address] [place] [address] PCP - General Internal Medicine 04/10/14 [facility] 12/29/23 documented as of this encounter
--- OUTSIDE RECORDS SUMMARY | 2025-03-14 11:05 | XMS_ITS | Encounter Summary ---
Author Organization [employer] Address 75 [facility] 7t [place] [address] Care Team Providers Care Oracle Technical Developer Name Role Phone Vince Lockhart MD Primary Care Provide r Reason for Visit * Reason Comments Med Refill Encounter Details Date Type Department Care Team (Late st Contact Info) Description 11/27/2023 Refill [facility] MEDICINE 230 [place], [place] [phone] Vince Lockhart MD 230 [place], [place] [phone] Social History Tobacco Use Types Packs/Day Years [...] Description 03/18/2025 1:30 PM EDT Office Visit [facility] ADULT DENTAL [address] [place] [address] Nils Bower DDS [address] [place] [address] 03/19/2025 9:00 AM EDT Office Visit [facility] MEDICINE [address] [place] [address] Alexander Jones MD [address] [place] [address] 03/26/2025 9:00 AM EDT Office Visit [facility] MEDICINE [address] [place] [address] Alexander Jones MD [address] [place] [address] 04/22/2025 10:00 AM EDT Office Visit [facility] MEDICINE [address] [place] [address] Vince Lockhart MD [address] [place] [address] 07/24/2025 10:00 AM EST Office Visit [facility] OPTOMETRY [address] [place] [address] Tory Garcia, OD [address] [place] [address] documented as of this encounter Goals Goal [...] documented as of this encounter Care Teams Oracle Technical Developer Relationship Specialty Start Date End Date Vince Lockhart MD [address] [place] [address] PCP - General Internal Medicine 04/10/14 [facility] 12/29/23 documented as of this encounter
--- OUTSIDE RECORDS SUMMARY | 2025-03-14 11:06 | XMS_ITS | Encounter Summary ---
Author Organization [facility] Address 75 [facility] 7t [place] [address] Care Team Providers Care Pricing Coordinator Name Role Phone Vince Lockhart MD Primary Care Provide r Osiel Mendez PharmD Unavailable [phone] Encounter Details Date Type Department Care Team (Late Contact Info) Description 11/24/2022 Abstract [facility] MEDICINE 230 [place] [address] Vince Lockhart MD 230 [place] [address] Social History Tobacco Use Types Packs/Day Years [...] Description 03/18/2025 1:30 PM EDT Office Visit [facility] ADULT DENTAL 230 [place] [address] Nils Bower DDS 230 [place] [address] 03/19/2025 9:00 AM EDT Office Visit [facility] MEDICINE 230 [place] [address] Alexander Jones MD 230 [place] [address] 03/26/2025 9:00 AM EDT Office Visit [facility] MEDICINE 230 [place] [address] Alexander Jones MD 230 [place] [address] 04/22/2025 10:00 AM EDT Office Visit [facility] MEDICINE 230 [place] [address] Vince Lockhart MD [address] [place] [address] 07/24/2025 10:00 AM EST Office Visit [facility] OPTOMETRY 267 [place] [address] Tory Garcia, OD 267 [place] [address] documented as of this encounter Procedures Procedure Name Priority Date/Time Associated Diagnosis Comments COLONOSCOPY Routine 01/08/2018 documented in this encounter Results * Colonoscopy (01/08/2018) Colonoscopy Normal Normal 01/08/2018 Yulisa Lai - 01/08/2018 9:39 AM EDT Recommended 10 year follow up ( per provider notes) Historical Provider HEALTH MAINTENANCE Edited Result - Final documented in this encounter Visit Diagnoses Not on filedocumented in this encounter Care Teams Pricing Coordinator Relationship Specialty Start Date End Date Vince Lockhart MD [address] [place] [address] PCP - General Internal Medicine 04/10/14 Osiel Mendez, MayteD [address] [place] [address] [place] [id number] Pharmacist Internal Medicine 12/19/22 06/11/23 [facility] 12/29/23 documented as of this encounter
--- OUTSIDE RECORDS SUMMARY | 2025-03-14 11:06 | XMS_ITS | Encounter Summary ---
Author Organization [employer] Address 75 [facility] 7t [place] [address] Care Team Providers Care Continuous Improvement Engineer Name Role Phone Vince Lockhart MD Primary Care Provide r Reason for Visit * Reason Onset Date Comments Nurse Triage 02/28/2024 Encounter Details Date Type Department Care Team ([facility] st Contact Info) Description 02/28/2024 Telephone [facility] MEDICINE 230 [place], [place] [phone] Vince Lockhart MD 230 [place], [place] [phone] Nurse Triage Social History Tobacco Use Types [...] Miscellaneous Notes * Telephone Encounter - Kellie Amezuca RN - 02/28/2024 1:18 PM EDT Triage call with [employer] Supervisor ID [id number]. Pt reports headache and some dizziness for [...] call. Pt is advised to come to [facility] today and Pt asks if alright to [...] a pain medicine * Telephone Encounter - Ahihoward Camacho Tom - 02/28/2024 11:15 AM EDT Symptoms: Headache, Dizziness Outcome: Schedule an urgent appointment (within 4 hours) or talk to a nurse or provider soon Reason: Getting worse The caller accepted this outcome documented in this encounter Plan of Treatment Upcoming Encounters Date Type Department Care Team (Late st Contact Info) Description 03/18/2025 1:30 PM EDT Office Visit [facility] ADULT DENTAL [address] [place] [address] Nils Bower DDS [address] [place] [address] 03/19/2025 9:00 AM EDT Office Visit [facility] MEDICINE [address] [place] [address] Alexander Jones MD 230 [place] [address] 03/26/2025 9:00 AM EDT Office Visit [facility] MEDICINE [address] [place] [address] Alexander Jones MD 230 [place] [address] 04/22/2025 10:00 AM EDT Office Visit [facility] MEDICINE [address] [place] [address] Vince Lockhart MD 230 [place] [address] 07/24/2025 10:00 AM EST Office Visit [facility] OPTOMETRY 267 [place] [address] Tory Garcia, OD [address] [place] [address] documented as of this encounter Goals Goal [...] documented as of this encounter Care Teams Continuous Improvement Engineer Relationship Specialty Start Date End Date Vince Lockhart MD 230 [place] [address] PCP - General Internal Medicine 04/10/14 [facility] 12/29/23 documented as of this encounter
--- OUTSIDE RECORDS SUMMARY | 2025-03-14 11:06 | XMS_ITS | Encounter Summary ---
Author Organization [facility] Address [address] [facility] 7t [place] [address] Care Team Providers Care Refurbish Technician Name Role Phone Vince Lockahrt MD Primary Care Provide r Osiel Mendez PharmD Unavailable [phone] Encounter Details Date Type Department Care Team (Late st Contact Info) Description 10/03/[address] [facility] MEDICINE 230 [place] [address] Vince Lockhart MD 230 [place] [address] Social History Tobacco Use Types Packs/Day Years [...] PM EDT Office Visit [facility] ADULT DENTAL 230 [place] [address] Nils Bower DDS 230 [place] [address] 03/19/2025 9:00 AM EDT Office Visit [facility] MEDICINE [address] [place] [address] Alexander Jones MD 230 [place] [address] 03/26/2025 9:00 AM EDT Office Visit [facility] MEDICINE [address] [place] [address] Alexander Jones MD 230 [place] [address] 04/22/2025 10:00 AM EDT Office Visit [facility] MEDICINE [address] [place] [address] Vince Lockhart MD 230 [place] [address] 07/24/2025 10:00 AM EST Office Visit [facility] OPTOMETRY 267 [place] [address] Tory Garcia, OD 267 [place] [address] documented as of this encounter Visit Diagnoses Not on filedocumented in this encounter Care Teams Refurbish Technician Relationship Specialty Start Date End Date Vince Lcokhart MD [address] [place] [address] PCP - General Internal Medicine 04/10/14 Osiel Mendez PharmD [address] [place] [address] Pharmacist Internal Medicine 12/19/22 06/11/23 [facility] 12/29/23 documented as of this encounter
--- OUTSIDE RECORDS SUMMARY | 2025-03-14 11:06 | XMS_ITS | Encounter Summary ---
Author Organization [employer] Address 75 [facility] 7t [place] [address] Care Team Providers Care Making Machine Catcher Name Role Phone Vince Lockhart MD Primary Care Provide r Reason for Visit * Reason Comments Med Refill Encounter Details Date Type Department Care Team (Late st Contact Info) Description 04/10/2024 Refill [facility] MEDICINE 230 [place], [place] [phone] Felicia Hdz, ANP 230 [place], [place] [phone] Social History Tobacco Use Types Packs/Day Years [...] Description 03/18/2025 1:30 PM EDT Office Visit [facility] ADULT DENTAL [address] [place] [address] Nils Bower DDS [address] [place] [address] 03/19/2025 9:00 AM EDT Office Visit [facility] MEDICINE [address] [place] [address] Alexander Jones MD [address] [place] [address] 03/26/2025 9:00 AM EDT Office Visit [facility] MEDICINE [address] [place] [address] Alexander Jones MD [address] [place] [address] 04/22/2025 10:00 AM EDT Office Visit [facility] MEDICINE [address] [place] [address] Vince Lockhart MD [address] [place] [address] 07/24/2025 10:00 AM EST Office Visit [facility] OPTOMETRY [address] [place] [address] [place] [address] Tory Garcia, OD [address] [place] [address] documented as of this encounter Goals Goal [...] documented as of this encounter Care Teams Making Machine Catcher Relationship Specialty Start Date End Date Vince Lockhart MD 230 [place] [address] PCP - General Internal Medicine 04/10/14 [facility] 12/29/23 documented as of this encounter
--- OUTSIDE RECORDS SUMMARY | 2025-03-14 11:06 | XMS_ITS | Encounter Summary ---
Author Organization [employer] Address 75 [facility] 7t [place] [address] Care Team Providers Care Ac/Dc Rewinder Name Role Phone Vince Lockhart MD Primary Care Provide r Reason for Visit * Reason Onset Date Comments Created in Error 04/09/2024 Encounter Details Date Type Department Care Team ([facility] st Contact Info) Description 04/09/2024 Telephone [facility] MEDICINE 230 [place], [place] [phone] Vince Lockhart MD 230 [place], [place] [phone] Created in Error Social History Tobacco Use [...] 03/18/2025 1:30 PM EDT Office Visit [facility] ADULT DENTAL [address] [place] [address] Nils Bower DDS [address] [place] [address] 03/19/2025 9:00 AM EDT Office Visit [address] [address] Alexander Jones MD [address] [place] [address] 03/26/2025 9:00 AM EDT Office Visit [address] [address] Alexander Jones MD [address] [place] [address] 04/22/2025 10:00 AM EDT Office Visit [address] [address] Vince Lockhart MD [address] [place] [address] 07/24/2025 10:00 AM EST Office Visit [facility] OPTOMETRY [address] [place] [address] Tory Garcia, OD 267 [place] [address] documented as of this encounter Goals Goal [...] documented as of this encounter Care Teams Ac/Dc Rewinder Relationship Specialty Start Date End Date Vince Lockhart MD [address] [place] [address] PCP - General Internal Medicine 04/10/14 [facility] 12/29/23 documented as of this encounter
--- OUTSIDE RECORDS SUMMARY | 2025-03-14 11:06 | XMS_ITS | Encounter Summary ---
Author Organization [employer] Address 75 [facility] 7t [place] [address] Care Team Providers Care Knife Grinder Name Role Phone Vince Lockhart MD Primary Care Provide r Reason for Visit * Reason Comments Med Refill Encounter Details Date Type Department Care Team (Late st Contact Info) Description 03/18/2024 Refill [facility] MED & PEDS [address] [place], [place] [phone] Yajaira Birmingham MD 230 [place] [address] Depressive disorder Social History Tobacco Use Types [...] Description 03/18/2025 1:30 PM EDT Office Visit [facility] ADULT DENTAL [address] [place] [address] Nils Bower DDS [address] [place] [address] 03/19/2025 9:00 AM EDT Office Visit [address] [address] Alexander Jones MD [address] [place] [address] 03/26/2025 9:00 AM EDT Office Visit [address] [address] Alexander Jones MD [address] [place] [address] 04/22/2025 10:00 AM EDT Office Visit [address] [address] Vince Lockhart MD [address] [place] [place] [address] 07/24/2025 10:00 AM EST Office Visit [facility] OPTOMETRY [address] [place] [address] Tory Garcia, OD 267 [place] [address] documented as of this encounter Goals Goal [...] documented as of this encounter Care Teams Knife Grinder Relationship Specialty Start Date End Date Vince Lockhart MD [address] [place] [address] PCP - General Internal Medicine 04/10/14 [facility] 12/29/23 documented as of this encounter
--- OUTSIDE RECORDS SUMMARY | 2025-03-14 11:06 | XMS_ITS | Encounter Summary ---
Author Organization [employer] Address 75 [facility] 7t [place] [address] Care Team Providers Care Criminal Attorney Name Role Phone Vince Lockhart MD Primary Care Provide r Osiel Mendez PharmD Unavailable [phone] Reason for Visit * Reason Comments Med Refill Encounter Details Date Type Department Care Team ([facility] st Contact Info) Description 09/09/2022 Telephone [facility] MEDICINE 230 [place], [place] [phone] Vince Lockhart MD 230 [place], [place] [phone] Med Refill Social History Tobacco Use Types [...] PM EST ----- [facility]. Out now but not sure of [...] 1:30 PM EDT Office Visit [facility] ADULT DENTAL 230 [place] [address] Nils Bower DDS [address] [place] [address] 03/19/2025 9:00 AM EDT Office Visit [facility] MEDICINE [address] [place] [address] Alexander Jones MD 230 [place] [address] 03/26/2025 9:00 AM EDT Office Visit [facility] MEDICINE [address] [place] [address] Alexander Jones MD 230 [place] [address] 04/22/2025 10:00 AM EDT Office Visit [facility] MEDICINE [address] [place] [address] Vince Lockhart MD 230 [place] [address] 07/24/2025 10:00 AM EST Office Visit [facility] OPTOMETRY [address] [place] [address] Tory Garcia OD 267 [place] [address] documented as of this encounter Visit Diagnoses Diagnosis Depressive disorder Depressive disorder, not elsewhere classified Difficulty sleeping Unspecified sleep disturbance documented in this encounter Care Teams Criminal Attorney Relationship Specialty Start Date End Date Vince Lockhart MD 230 [place] [address] PCP - General Internal Medicine 04/10/14 Osiel Mendez PharmD 230 [place] [address] Pharmacist Internal Medicine 12/19/22 06/11/23 [facility] 12/29/23 documented as of this encounter
--- OUTSIDE RECORDS SUMMARY | 2025-03-14 11:06 | XMS_ITS | Clinical Summary ---
Author Organization [facility] ity Address [address] [place] [address] Care Team Providers Care Engraver Hand Soft Metals Name Role Phone Unavailable Primary Care Provider [...]
--- OUTSIDE RECORDS SUMMARY | 2025-03-14 11:06 | XMS_ITS | Encounter Summary ---
Author Organization [employer] Address [address] [facility] 7t [place] [address] Care Team Providers Care Cookie Breaker Name Role Phone Vince Lockhart MD Primary Care Provide r Osiel Mendez PharmD Unavailable [phone] Encounter Details Date Type Department Care Team ([facility] st Contact Info) Description 03/01/2023 Telephone [facility] MEDICINE 230 [place] [address] Vince Lockhart MD 230 [place], [place] [phone] Social History Tobacco Use Types Packs/Day Years [...] AM EDT Tc from wilson with [facility] requesting a call from a nurse in regards to having conflict with another agency. Please contact wilson at [phone] documented in this encounter Plan of Treatment Upcoming Encounters Date Type Department Care Team (Late st Contact Info) Description 03/18/2025 1:30 PM EDT Office Visit [facility] ADULT DENTAL 230 [place] [address] Nils Bower DDS 230 [place] [address] 03/19/2025 9:00 AM EDT Office Visit [facility] MEDICINE [address] [place] [address] Alexander Jones MD 230 [place] [address] 03/26/2025 9:00 AM EDT Office Visit [address] [address] Alexander Jones MD 230 [place] [address] 04/22/2025 10:00 AM EDT Office Visit [address] [address] Vince Lockhart MD 230 [place] [address] 07/24/2025 10:00 AM EST Office Visit [facility] OPTOMETRY 267 [place] [address] TarTory zaman, OD 267 [place] [address] documented as of this encounter Goals Goal [...] documented as of this encounter Care Teams Cookie Breaker Relationship Specialty Start Date End Date Vince Lockhart MD 230 [place] [address] PCP - General Internal Medicine 04/10/14 Osiel Mendez PharmD 230 [place] [address] Pharmacist Internal Medicine 12/19/22 06/11/23 [facility] 12/29/23 documented as of this encounter
--- OUTSIDE RECORDS SUMMARY | 2025-03-14 11:06 | XMS_ITS | Encounter Summary ---
Author Organization [facility] Address 75 [facility] 7t [place] [address] Care Team Providers Care Oxyacetylene Cutter Name Role Phone Vince Lockhart MD Primary Care Provide r Osiel Mendez PharmD Unavailable [phone] Encounter Details Date Type Department Care Team (Late Contact Info) Description 01/12/2023 Abstract [facility] MEDICINE 230 [place] [address] Vince Lockhart MD 230 [place] [address] Social History Tobacco Use Types Packs/Day Years [...] Description 03/18/2025 1:30 PM EDT Office Visit [facility] ADULT DENTAL 230 [place] [address] Nils Bower DDS [address] [place] [address] 03/19/2025 9:00 AM EDT Office Visit [facility] MEDICINE [address] [place] [address] Alexander Jones MD 230 [place] [address] 03/26/2025 9:00 AM EDT Office Visit [facility] MEDICINE [address] [place] [address] Alexander Jones MD 230 [place] [address] 04/22/2025 10:00 AM EDT Office Visit [facility] MEDICINE [address] [place] [address] Vince Lockhart MD 230 [place] [address] 07/24/2025 10:00 AM EST Office Visit [facility] OPTOMETRY [address] [place] [address] Tory Garcia, OD 267 [place] [address] documented as of this encounter Goals Goal [...] documented as of this encounter Care Teams Oxyacetylene Cutter Relationship Specialty Start Date End Date Vince Lockhart MD 230 [place], [place] [phone] PCP - General Internal Medicine 04/10/14 Osiel Mednez PharmD 230 [place], [place] [phone] Pharmacist Internal Medicine 12/19/22 06/11/23 [facility] 12/29/23 documented as of this encounter
--- OUTSIDE RECORDS SUMMARY | 2025-03-14 11:06 | XMS_ITS | Encounter Summary ---
Author Organization [employer] Address 75 [facility] 7t [place] [address] Care Team Providers Care Consulting Systems Engineer Name Role Phone Vince Lockhart MD Primary Care Provide r Reason for Visit * Reason Comments Med Refill Encounter Details Date Type Department Care Team ([facility] st Contact Info) Description 06/26/2023 Refill [facility] MED[facility]INE 230 [place], [place] [phone] Vince Lockhart MD 230 [place], [place] [phone] Mixed hyperlipidemia Social History Tobacco Use Types [...] Description 03/18/2025 1:30 PM EDT Office Visit [facility] ADULT DENTAL [address] [place] [address] Nils Bower DDS [address] [place] [address] 03/19/2025 9:00 AM EDT Office Visit [facility] [address] [place] [address] Alexander Jones MD [address] [place] [address] 03/26/2025 9:00 AM EDT Office Visit [facility] [address] [place] [address] Alexander Jones MD [address] [place] [address] 04/22/2025 10:00 AM EDT Office Visit [address] [address] Vince Lockhart MD [address] [place] [address] 07/24/2025 10:00 AM EST Office Visit [facility] OPTOMETRY [address] [place] [address] Tory Garcia, OD [address] [place] [address] documented as of this encounter Goals Goal [...] documented as of this encounter Care Teams Consulting Systems Engineer Relationship Specialty Start Date End Date Vince Lockhart MD 230 [place] [address] PCP - General Internal Medicine 04/10/14 [facility] 12/29/23 documented as of this encounter
--- OUTSIDE RECORDS SUMMARY | 2025-03-14 11:06 | XMS_ITS | Encounter Summary ---
Author Organization [employer] Address 75 [facility] 7t [place] [address] Care Team Providers Care Ice Cream Vendor Name Role Phone Vince Lockhart MD Primary Care Provide r Encounter Details Date Type Department Care Team (Latest Contact Info) Description 03/12/2025 Travel Social History Tobacco Use Types Packs/Day [...] Description 03/18/2025 1:30 PM EDT Office Visit [facility] ADULT DENTAL [address] [place] [address] Nils Bower DDS 230 [place] [address] 03/19/2025 9:00 AM EDT Office Visit [facility] [address] [place] [address] Alexander Jones MD 230 [place] [address] 03/26/2025 9:00 AM EDT Office Visit [address] [address] Alexander Jones MD [address] [place] [address] 04/22/2025 10:00 AM EDT Office Visit [facility] [address] [place] [address] Vince Lockhart MD 230 [place] [address] 07/24/2025 10:00 AM EST Office Visit [facility] OPTOMETRY [address] [place] [address] Tory Garcia, OD [address] [place] [address] documented as of this encounter Goals Goal [...] documented as of this encounter Care Teams Ice Cream Vendor Relationship Specialty Start Date End Date Vince Lockhart MD [address] [place] [address] PCP - General Internal Medicine 04/10/14 [facility] 12/29/23 documented as of this encounter
--- OUTSIDE RECORDS SUMMARY | 2025-03-14 11:06 | XMS_ITS | Encounter Summary ---
Author Organization [employer] [facility] Address 75 [facility] 7t [place] [address] Care Team Providers Care Ladle Cleaner Name Role Phone Vince Lockhart MD Primary Care Provide r Osiel Mendez PharmD Unavailable [phone] Reason for Visit * Reason Comments Med Refill Encounter Details Date Type Department Care Team (Late st Contact Info) Description 10/07/2022 Refill [facility] MED[facility]INE 230 [place] [address] Vince Lockhart MD 230 [place] [address] Depressive disorder Social History Tobacco Use Types [...] 1:30 PM EDT Office Visit [facility] ADULT DENTAL 230 [place] [address] Nils Bower DDS 230 [place] [address] 03/19/2025 9:00 AM EDT Office Visit [facility] [address] [place] [address] Alexander Jones MD 230 [place] [address] 03/26/2025 9:00 AM EDT Office Visit [facility] [address] [place] [address] Alexander Jones MD 230 [place] [address] 04/22/2025 10:00 AM EDT Office Visit [facility] [address] [place] [address] Vince Lockhart MD 230 [place] [address] 07/24/2025 10:00 AM EST Office Visit [facility] OPTOMETRY 267 [place] [address] Tory Garcia OD 267 [place] [address] documented as of this encounter Visit Diagnoses Diagnosis Depressive disorder Depressive disorder, not elsewhere classified documented in this encounter Care Teams Ladle Cleaner Relationship Specialty Start Date End Date Vince Lockhart MD [address] [place] [address] PCP - General Internal Medicine 04/10/14 Osiel Mendez PharmD [address] [place] [address] Pharmacist Internal Medicine 12/19/22 06/11/23 [facility] 12/29/23 documented as of this encounter
--- OUTSIDE RECORDS SUMMARY | 2025-03-14 11:06 | XMS_ITS | Encounter Summary ---
Author Organization [employer] Address 75 [facility] 7t [place] [address] Care Team Providers Care Med Care Manager Name Role Phone Vince Lockhart MD Primary Care Provide r Reason for Visit * Reason Onset Date Comments Med Refill 07/13/2023 Encounter Details Date Type Department Care Team ([facility] st Contact Info) Description 07/13/[address] [facility] MEDICINE 230 [place], [place] [phone] Vince Lockhart MD 230 [place], [place] [phone] Med Refill Social History Tobacco Use Types [...] Garvin LPN - 07/13/2023 12:46 PM EST SHRIMP PACKER checked Ambien last filled on 06/30/23 Qty: [...] PM EDT Office Visit [facility] ADULT DENTAL 230 [place] [address] Nils Bower DDS 230 [place] [address] 03/19/2025 9:00 AM EDT Office Visit [facility] MEDICINE 230 [place] [address] Alexander Jones MD 230 [place] [address] 03/26/2025 9:00 AM EDT Office Visit [facility] MEDICINE 230 [place] [address] Alexander Jones MD 230 [place] [address] 04/22/2025 10:00 AM EDT Office Visit [facility] MEDICINE 230 [place] [address] Vince Lockhart MD 230 [place], [place] [phone] 07/24/2025 10:00 AM EST Office Visit [facility] OPTOMETRY [address] [place], [place] [phone] Tory Garcia, OD 267 [place] [address] documented as of this encounter Goals Goal [...] documented as of this encounter Care Teams Med Care Manager Relationship Specialty Start Date End Date Vince Lockhart MD [address] [place] [address] [phone] PCP - General Internal Medicine 04/10/14 [facility] 12/29/23 documented as of this encounter
--- OUTSIDE RECORDS SUMMARY | 2025-03-14 11:06 | XMS_ITS | Encounter Summary ---
Author Organization [employer] Address 75 [facility] 7t [place] [address] Care Team Providers Care Print Line Operator Name Role Phone Vince Lockhart MD Primary Care Provide r Osiel Mendez PharmD Unavailable [phone] Encounter Details Date Type Department Care Team (Late st Contact Info) Description 09/26/2022 Telephone [facility] MEDICINE [address] [place] [address] Vince Lockhart MD 230 [place] [address] Social History Tobacco Use Types Packs/Day Years [...] Office Visit [facility] ADULT DENTAL 230 [place] [address] Nils Bower DDS 230 [place] [address] 03/19/2025 9:00 AM EDT Office Visit [facility] MEDICINE 230 [place] [address] Alexander Jones MD 230 [facility] [place] [address] 03/26/2025 9:00 AM EDT Office Visit [facility] MEDICINE [address] [place] [address] [place] [address] Alexander Jones MD 230 [facility] [place] [address] 04/22/2025 10:00 AM EDT Office Visit [facility] MED[facility]INE [address] [place] [address] [place] [address] Vince Lockhart MD 230 [facility] [place] [address] 07/24/2025 10:00 AM EST Office Visit [facility] OPTOMETRY 267 [place] [address] TarTory zaman, OD 267 [place] [address] documented as of this encounter Visit Diagnoses Not on filedocumented in this encounter Care Teams Print Line Operator Relationship Specialty Start Date End Date Vince Lockhart MD [address] [place], [place] [address]walt [facility] [place] [address] PCP - General Internal Medicine 04/10/14 Osiel Mendez PharmD [address] [place] [address] Pharmacist Internal Medicine 12/19/22 06/11/23 [facility] 12/29/23 documented as of this encounter
--- OUTSIDE RECORDS SUMMARY | 2025-03-14 11:06 | XMS_ITS | Encounter Summary ---
Author Organization [employer] Address 75 [facility] 7t [place] [address] Care Team Providers Care Backup Engineer Name Role Phone Vince Lockhart MD Primary Care Provide r Reason for Visit * Reason Onset Date Comments PT-1 07/01/2024 Encounter Details Date Type Department Care Team ([facility] st Contact Info) Description 07/01/2024 Telephone [facility] MEDICINE 230 [place], [place] [phone] Vince Lockhart MD 230 [place], [place] [phone] PT-1 Social History Tobacco Use Types Packs/Day [...] of Assessment Author Patient Health Questionnaire-2 Score 1 06/16 10:58 AM Tamara Islas [place] * Little interest or pleasure in doing things Answer Date of Assessment Author Several days 07/02/2024 10:58 AM Tamara Islas [place] * Feeling down, depressed, or hopeless Answer Date of Assessment Author Not at all 07/02/2024 10:58 AM Tamara Islas [place] * Trouble falling or staying asleep, or sleeping too much Answer Date of Assessment Author Several days 07/02/2024 10:58 AM Tamara Islas [place] * Feeling tired or having little energy Answer Date of Assessment Author Several days 07/02/2024 10:58 AM Tamara Islas [place] * Poor appetite or overeating Answer Date of Assessment Author Several days 07/02/2024 10:58 AM Tamara Islas [place] * Feeling bad about yourself - or that you are a failure or have let yourself or your family down Answer Date of Assessment Author Not at all 07/02/2024 10:58 AM Tamara Islas MA * Trouble concentrating on things, such as reading the newspaper or watching television Answer Date of Assessment Author Not at all 07/02/2024 10:58 AM Tamara Islas MA * Moving or speaking so slowly that other people could have noticed? Or the opposite - being so fidgety or restless that you have been moving around a lot more than usual. Answer Date of Assessment Author Not at all 07/02/2024 10:58 AM Tamara Islas MA * Thoughts that you would be better off or hurting yourself in some way Answer Date of Assessment Author Not at all 07/02/2024 10:58 AM Tamara Islas MA * Patient Health Questionnaire-9 Score Answer Date of Assessment Author 4 07/02/2024 10:58 AM Tamara Islas MA * How difficult have these problems made it for you to do your work, take care of things at home, or get along with other people? Answer Date of Assessment Author Not difficult at all 07/02/2024 10:58 AM Tamara Monk [place] documented as of this encounter Miscellaneous Notes * Telephone Encounter - Som Alford - 07/01/2024 3:20 PM EST Patient calling requesting PT1 Home Address verified: Y/N: Yes Provider name or facility name: [facility] Address: [address] [place] [address] Escort needed: Y/N: No Do you have a wheelchair: Y/N: No If yes- Manual or electric: N/A Visits: 1 every 3 months documented in this encounter Plan of Treatment Upcoming Encounters Date Type Department Care Team ([facility] st Contact Info) Description 03/18/2025 1:30 PM EDT Office Visit [facility] ADULT DENTAL 230 [place] [address] Nils Bower DDS 230 [place] [address] 03/19/2025 9:00 AM EDT Office Visit [facility] MEDICINE [address] [place] [address] Alexander Jones MD 230 [place] [address] 03/26/2025 9:00 AM EDT Office Visit [facility] MEDICINE 230 [place] [address] Alexander Jones MD 230 [facility] [place] [address] 04/22/2025 10:00 AM EDT Office Visit [facility] MEDICINE 230 [place] [address] Vince Lockhart MD 230 [facility] [place], [place] [phone] 07/24/2025 10:00 AM EST Office Visit [facility] OPTOMETRY 267 [place], [place] [phone] Tory Garcia, OD 267 [place] [address] documented as of this encounter Goals Goal [...] documented as of this encounter Care Teams Backup Engineer Relationship Specialty Start Date End Date Vince Lockhart MD [address] [place], [place] [phone] PCP - General Internal Medicine 04/10/14 [facility] 12/29/23 documented as of this encounter
--- OUTSIDE RECORDS SUMMARY | 2025-03-14 11:06 | XMS_ITS | Encounter Summary ---
Author Organization [employer] Address 75 [facility] 7t [place] [address] Care Team Providers Care Urology Teacher Name Role Phone Vince Lockhart MD Primary Care Provide r Reason for Visit * Reason Comments Med Refill Encounter Details Date Type Department Care Team (Late st Contact Info) Description 07/04/[address] [facility] MEDICINE 230 [place], [place] [phone] Monse Gonzalez MD 230 [place], [place] [phone] Social History Tobacco Use Types Packs/Day Years [...] 03/18/2025 1:30 PM EDT Office Visit [facility] ADULT DENTAL [address] [place] [address] Nils Bower DDS [address] [place] [address] 03/19/2025 9:00 AM EDT Office Visit [address] [address] Alexander Jones MD [address] [place] [address] 03/26/2025 9:00 AM EDT Office Visit [address] [address] Alexander Jones MD [address] [place] [address] 04/22/2025 10:00 AM EDT Office Visit [address] [address] Vince Lockhart MD [address] [place] [address] 07/24/2025 10:00 AM EST Office Visit [facility] OPTOMETRY [address] [place] [address] Tory Garcia, OD 267 [place] [address] documented as of this encounter Goals Goal [...] documented as of this encounter Care Teams Urology Teacher Relationship Specialty Start Date End Date Vince Lockhart MD [address] [place] [address] PCP - General Internal Medicine 04/10/14 [facility] 12/29/23 documented as of this encounter
--- OUTSIDE RECORDS SUMMARY | 2025-03-14 11:06 | XMS_ITS | Encounter Summary ---
Author Organization [employer] [facility] Address 75 [facility] 7t [place] [address] Care Team Providers Care Construction Project Assistant Name Role Phone Vince Lockhart MD Primary Care Provide r Osiel Mendez PharmD Unavailable [phone] Reason for Visit * Reason Comments Med Refill Encounter Details Date Type Department Care Team (Late st Contact Info) Description 10/11/2022 Refill [facility] MEDICINE 230 [place] [address] Vince Lockhart MD 230 [place] [address] Depressive disorder Social History Tobacco Use Types [...] Description 03/18/2025 1:30 PM EDT Office Visit [facility] ADULT DENTAL 230 [place] [address] Nils Bower DDS 230 [place] [address] 03/19/2025 9:00 AM EDT Office Visit [facility] MEDICINE [address] [place] [address] Alexander Jones MD 230 [place] [address] 03/26/2025 9:00 AM EDT Office Visit [facility] MEDICINE [address] [place] [address] Alexander Jones MD 230 [place] [address] 04/22/2025 10:00 AM EDT Office Visit [facility] MEDICINE [address] [place] [address] Vince Lockhart MD 230 [place] [address] 07/24/2025 10:00 AM EST Office Visit [facility] OPTOMETRY 267 [place] [address] Tory Garcia OD 267 [place] [address] documented as of this encounter Visit Diagnoses Diagnosis Depressive disorder Depressive disorder, not elsewhere classified documented in this encounter Care Teams Construction Project Assistant Relationship Specialty Start Date End Date Vince Lockhart MD [address] [place] [address] PCP - General Internal Medicine 04/10/14 sOiel Mendez PharmD [address] [place] [address] Pharmacist Internal Medicine 12/19/22 06/11/23 [facility] 12/29/23 documented as of this encounter
--- OUTSIDE RECORDS SUMMARY | 2025-03-14 11:06 | XMS_ITS | Encounter Summary ---
Author Organization [employer] Address 75 [facility] 7t [place] [address] Care Team Providers Care Blocker Automatic Name Role Phone Vince Lockhart MD Primary Care Provide r Osiel Mendez PharmD Unavailable [phone] Reason for Visit * Reason Comments Med Refill Encounter Details Date Type Department Care Team (Late st Contact Info) Description 03/01/2023 Refill [facility] MEDICINE 230 [place], [place] [phone] Vince Lockhart MD 230 [place], [place] [phone] Depressive disorder Social History Tobacco Use Types [...] Pt received a 15d supply 02/25 from outide provider documented in this encounter Plan of Treatment Upcoming Encounters Date Type Department Care Team (Late st Contact Info) Description 03/18/2025 1:30 PM EDT Office Visit [facility] ADULT DENTAL 230 [place] [address] Nils Bower DDS 230 [place] [address] 03/19/2025 9:00 AM EDT Office Visit [facility] MEDICINE [address] [place] [address] Alexander Jones MD 230 [place] [address] 03/26/2025 9:00 AM EDT Office Visit [facility] MEDICINE [address] [place] [address] Alexander Jones MD 230 [place] [address] 04/22/2025 10:00 AM EDT Office Visit [facility] MEDICINE [address] [place] [address] Vince Lockhart MD 230 [place] [address] 07/24/2025 10:00 AM EST Office Visit [facility] OPTOMETRY 267 [place] [address] Tory Garcia, OD 267 [place] [address] documented as of this encounter Goals Goal [...] documented as of this encounter Care Teams Blocker Automatic Relationship Specialty Start Date End Date Vince Lockhart MD 230 [place] [address] PCP - General Internal Medicine 04/10/14 Osiel Mendez PharmD 230 [place] [address] Pharmacist Internal Medicine 12/19/22 06/11/23 [facility] 12/29/23 documented as of this encounter
--- OUTSIDE RECORDS SUMMARY | 2025-03-14 11:06 | XMS_ITS | Encounter Summary ---
Author Organization [employer] Address 75 [facility] 7t [place] [address] Care Team Providers Care Stockroom Selector Name Role Phone Vince Lockhart MD Primary Care Provide r Osiel Mendez PharmD Unavailable [phone] Reason for Visit * Reason Onset Date Comments REQUEST FOR SURVEILLANCE OBSERVER REFERRAL 07/26/2022 I hernandez d regarding the pt's request for a referral for SURVEILLANCE OBSERVER services. He needs to state what ADL's he needs assistance with. There was no answer, and I reached a recording stating that the person's mailbox is full. I was unable to leave a msg. Encounter Details Date Type Department Care Team (Late st Contact Info) Description 07/26/2022 Telephone [facility] MEDICINE 230 [place] [address] Vince Lockhart MD 230 [place], [place] [phone] REQUEST FOR SURVEILLANCE OBSERVER REFERRAL (I called regarding the pt's request for a referral for SURVEILLANCE OBSERVER services. He needs to state what ADL's [...] EDT Sexual Orientation Choose not to disclose 10/31/ 2022 10:14 AM EDT documented as of this encounter Plan of Treatment Upcoming Encounters Date Type Department Care Team (Late st Contact Info) Description 03/18/2025 1:30 PM EDT Office Visit [facility] ADULT DENTAL 230 [place] [address] Nils Bower DDS 230 [place] [address] 03/19/2025 9:00 AM EDT Office Visit [facility] MEDICINE [address] [place] [address] Alexander Jones MD 230 [place] [address] 03/26/2025 9:00 AM EDT Office Visit [facility] MEDICINE [address] [place] [address] Alexander Jones MD 230 [place] [address] 04/22/2025 10:00 AM EDT Office Visit [facility] MEDICINE [address] [place] [address] Vince Lockhart MD [address] [place] [address] 07/24/2025 10:00 AM EST Office Visit [facility] OPTOMETRY [address] [place] [address] Tory Garcia, OD 267 [place] [address] documented as of this encounter Visit Diagnoses Not on filedocumented in this encounter Care Teams Stockroom Selector Relationship Specialty Start Date End Date Vince Lockhart MD [address] [place] [address] PCP - General Internal Medicine 04/10/14 Osiel Mendez, MayteD [address] [place] [address] Pharmacist Internal Medicine 12/19/22 06/11/23 [facility] 12/29/23 documented as of this encounter
--- OUTSIDE RECORDS SUMMARY | 2025-03-14 11:06 | XMS_ITS | Encounter Summary ---
Author Organization [employer] [facility] Address 75 [facility] 7t [place] [address] Care Team Providers Care Agricultural Produce Sorter Name Role Phone Vince Lockhart MD Primary Care Provide r Osiel Mendez PharmD Unavailable [phone] Reason for Visit * Reason Comments Med Refill Encounter Details Date Type Department Care Team (Late st Contact Info) Description 10/05/2022 Refill [facility] MEDICINE 230 [place] [address] Vince Lockhart MD [address] [place] [address] Depressive disorder Social History Tobacco Use Types [...] Description 03/18/2025 1:30 PM EDT Office Visit [facility] ADULT DENTAL 230 [place] [address] Nils Bower DDS 230 [place] [address] 03/19/2025 9:00 AM EDT Office Visit [facility] MEDICINE [address] [place] [address] Alexander Jones MD 230 [place] [address] 03/26/2025 9:00 AM EDT Office Visit [facility] MEDICINE [address] [place] [address] Alexander Jones MD 230 [place] [address] 04/22/2025 10:00 AM EDT Office Visit [facility] MEDICINE [address] [place] [address] Vince Lockhart MD 230 [place] [address] 07/24/2025 10:00 AM EST Office Visit [facility] OPTOMETRY [address] [place] [address] Tory Garcia OD 267 [place] [address] documented as of this encounter Visit Diagnoses Diagnosis Depressive disorder Depressive disorder, not elsewhere classified documented in this encounter Care Teams Agricultural Produce Sorter Relationship Specialty Start Date End Date Vince Lockhart MD [address] [place] [address] PCP - General Internal Medicine 04/10/14 Osiel Mendez PharmD [address] [place] [address] Pharmacist Internal Medicine 12/19/22 06/11/23 [facility] 12/29/23 documented as of this encounter
--- OUTSIDE RECORDS SUMMARY | 2025-03-14 11:06 | XMS_ITS | Encounter Summary ---
Author Organization [employer] Address [address] [place] [address] Care Team Providers Care Test Evaluator Name Role Phone Vince Lockhart MD Primary Care Provide r Reason for Visit * Reason Onset Date Comments Med Refill 03/14/2025 Encounter Details Date Type Department Care Team (Late st Contact Info) Description 03/14/2025 Refill [facility] MEDICINE [address] [place], [place] [phone] Georgina Ann RN Uncomplicated opioid dependence (CMS/HCC) [...] Description 03/18/2025 1:30 PM EDT Office Visit [facility] ADULT DENTAL [address] [place] [phone] Nils Bower DDS [address] [place] [phone] 03/19/2025 9:00 AM EDT Office Visit [facility] MEDICINE [address] [place] [phone] Alexander Jones MD [address] [place] [address] 03/26/2025 9:00 AM EDT Office Visit [facility] MEDICINE [address] [place] [address] Alexander Jones MD [address] [place] [phone] 04/22/2025 10:00 AM EDT Office Visit [facility] MEDICINE [address] [place] [phone] Vince Lockhart MD [address] [place] [address] 07/24/2025 10:00 AM EST Office Visit [facility] OPTOMETRY [address] [place] [address] Tory Garcia, OD [address] [place] [address] documented as of this encounter Goals Goal [...] documented as of this encounter Care Teams Test Evaluator Relationship Specialty Start Date End Date Vince Lockhart MD [address] [place] [address] PCP - General Internal Medicine 04/10/14 [facility] 12/29/23 documented as of this encounter
--- OUTSIDE RECORDS SUMMARY | 2025-03-14 11:06 | XMS_ITS | Encounter Summary ---
Author Organization [employer] Address [address] [facility] [address] [place] [address] Care Team Providers Care Solar Technician Name Role Phone Vince Lockhart MD Primary Care Provide r Osiel Mendez PharmD Unavailable [phone] Reason for Visit * Reason Onset Date Comments triage 10/03/2022 Encounter Details Date Type Department Care Team ([facility] st Contact Info) Description 10/03/2022 Telephone [facility] MEDICINE [address] [place] [address] Vince Lockhart MD [address] [place] [address] triage Social History Tobacco Use Types Packs/Day [...] requires assisted transportation. Is unable to access [facility] as he has no car and no [...] now The caller accepted this outcome speaks paraguayan. documented in this encounter Plan of Treatment Upcoming Encounters Date Type Department Care Team (Late st Contact Info) Description 03/18/2025 1:30 PM EDT Office Visit [facility] ADULT DENTAL [address] [place] [address] Nils Bower DDS [address] [place] [address] 03/19/2025 9:00 AM EDT Office Visit [facility] MEDICINE [address] [place] [address] Alexander Jones MD [address] [place] [address] 03/26/2025 9:00 AM EDT Office Visit [facility] MEDICINE [address] [place] [address] Alexander Jones MD [address] [place] [address] 04/22/2025 10:00 AM EDT Office Visit [facility] MEDICINE [address] [place] [address] Vince Lockhart MD [address] [place] [address] 07/24/2025 10:00 AM EST Office Visit [facility] OPTOMETRY [address] [place] [address] Tory Garcia, OD [address] [place] [address] documented as of this encounter Visit Diagnoses Not on filedocumented in this encounter Care Teams Solar Technician Relationship Specialty Start Date End Date Vince Lockhart MD [address] [place] [address] PCP - General Internal Medicine 04/10/14 Osiel Mendez, MayteD [address] [place] [address] Pharmacist Internal Medicine 12/19/22 06/11/23 [facility] 12/29/23 documented as of this encounter
--- OUTSIDE RECORDS SUMMARY | 2025-03-14 11:06 | XMS_ITS | Encounter Summary ---
Author Organization [facility] [employer] Address [address] [facility] [address] [place] [address] Care Team Providers Care Certified Nursing Assistant Name Role Phone Vince Lockhart MD Primary Care Provide r Reason for Visit * Reason Onset Date Comments Call Back Request 02/25/2025 Encounter Details Date Type Department Care Team ([facility] st Contact Info) Description 02/25/2025 Telephone [facility] MEDICINE [address] [place], [place] [phone] Vince Lockhart MD [address] [place], [place] [phone] Call Back Request Social History Tobacco Use Types Packs/Day [...] * Telephone Encounter - Som Alford - 02/25/2025 3:01 PM EDT TC from [facility] with [facility] requesting a call back due to questions they have regarding patient. Questions: If patient has decisional capacity? Does the patient have a health care proxy? If yes, who is the proxy? Does the PCP believe patient needs a higher level of care? Does the PCP have any concerns regarding patient? Caller name: [facility] ext [phone]. documented in this encounter Plan of Treatment Upcoming Encounters Date Type Department Care Team (Late st Contact Info) Description 03/18/2025 1:30 PM EDT Office Visit [facility] ADULT DENTAL [address] [place] [address] Nils Bower DDS [address] [place] [address] 03/19/2025 9:00 AM EDT Office Visit [facility] MEDICINE [address] [place] [address] Alexander Jones MD [address] [place] [address] 03/26/2025 9:00 AM EDT Office Visit [facility] MEDICINE [address] [place] [address] Alexander Jones MD [address] [place] [address] 04/22/2025 10:00 AM EDT Office Visit [facility] MEDICINE [address] [place] [address] Vince Lockhart MD [address] [place] [address] 07/24/2025 10:00 AM EST Office Visit [facility] OPTOMETRY [address] [place] [address] Tory Garcia, OD [address] [place] [address] documented as of this encounter Goals Goal [...] 025 4:15 PM EDT) No Georgina Ann, RN documented as of this encounter Visit Diagnoses Not on filedocumented in this encounter Additional Health Concerns Assessment Noted Time PHQ-9 Depression Total Score: 4 07/02/20 10:58 AM EST documented as of this encounter Care Teams Certified Nursing Assistant Relationship Specialty Start Date End Date Vince Lockhart MD [address] [place] [phone] PCP - General Internal Medicine 04/10/14 [facility] 12/29/23 documented as of this encounter
--- OUTSIDE RECORDS SUMMARY | 2025-03-14 11:06 | XMS_ITS | Clinical Summary ---
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 Nebulizers (Compressor/Nebul izer) [facility] [place] 1 by Inhalation route as needed 022 Active Nutritional Supplements (Ensure Nutrition Shake) liquid take 1 can by Oral route 2 times every day 022 Active Blood Pressure Monitoring (Omron 3 Series BP Monitor) device USE DIRECTED EVERY DAY 1 each 023 Active Symbicort 160-4.5 MCG/ACT inhaler INHALE 2 PUFFS BY MOUTH 2 TIMES DAILY FOR 30 DAYS 023 Active QUEtiapine (SEROquel) 100 MG tablet TAKE 1 TABLET BY MOUTH TWICE DAILY IN THE MORNING AND IN THE EVENING (AT 9 IN THE MORNING AND AT 6 IN THE EVENING) 60 tablet 3 024 Active clonazePAM (KlonoPIN) 0.5 MG tabletIndications :Depressive disorder TAKE 1 TABLET (0.5 MG) BY MOUTH IF NEEDED IN THE MORNING AND AT BEDTIME FOR ANXIETY. 60 tablet 024 Active zolpidem (Ambien) 5 MG tabletIndications :Difficulty sleeping TAKE 1 TABLET (5 MG) BY MOUTH IF NEEDED AT BEDTIME FOR SLEEP. 30 tablet 024 Active Acetaminophen Extra Strength 500 MG [...] Take 1 tab once 1 tablet Active ferrous sulfate 325 (65 Fe) MG tablet Take 1 tablet (325 mg) by mouth at bedtime. 30 tablet 3 024 Active pantoprazole (ProtoNix) 40 MG EC [...] CHEW. 30 capsule 10 025 2025 Active atorvastatin (Lipitor) 40 MG tabletIndications :Mixed hyperlipidemia TAKE 1 TABLET BY MOUTH AT BEDTIME 30 tablet 4 025 Active Viagra 100 MG tablet TAKE 1 TABLET 1 HOUR BEFORE SEXUAL RELATIONS ONCE DAILY NEEDED. 8 tablet 5 025 Active baclofen (Lioresal) 10 MG tabletIndications :Cocaine abuse (CMS/HCC) TAKE 1 TABLET (10 MG) BY MOUTH 3 TIMES DAILY NEEDED 90 tablet 025 Active ferrous sulfate 325 (65 Fe) MG EC tablet Do not crush, chew, or split.TAKE 1 TABLET (325 MG) BY MOUTH AT BEDTIME. 30 tablet 2 025 Active tamsulosin (Flomax) 0.4 MG 24 hr capsuleIndication s:Benign prostatic hyperplasia with nocturia TAKE 2 CAPSULES BY MOUTH ONCE DAILY 60 capsule 3 025 Active risperiDONE (RisperDAL) 3 MG tablet Take 3 mg by mouth Once per day. Active hydrOXYzine HCl (Atarax) 25 MG tablet Take 25 mg by mouth every 6 (six) hours if needed for itching. Active mirtazapine (Remeron) 15 MG tablet Take 15 mg by mouth at bedtime. Active furosemide (Lasix) 20 MG tablet Take by mouth Once per day. Active venlafaxine XR (Effexor XR) 37.5 MG 24 hr capsule Take 37.5 mg by mouth Once per day. Do not crush or chew. Active buprenorphine-nal oxone (Suboxone) 4-1 MG per sublingual filmIndications:U ncomplicated opioid dependence (CMS/HCC) Place 1 Film under the tongue Once per day for 7 days. This is in addition to his 8/2mg BID regimen. Do not start before March 12, 2025. 7 Film 025 2024 Active Buprenorphine HCl-Naloxone HCl (Suboxone) 8-2 MG SL filmIndications:U ncomplicated opioid dependence (CMS/HCC) Place 1 Film under the tongue 2 times daily for 7 days. Suboxone 4mg/1mg SL daily added to the 8/2mg BID regimen. Do not start before March 12, 2025. 14 Film 025 2024 Active albuterol (Ventolin HFA) 108 (90 Base) MCG/ACT inhalerIndication s:Pulmonary emphysema, unspecified emphysema type (CMS/HCC) INHALE 2 PUFFS BY MOUTH EVERY 4 TO 6 HOURS NEEDED 18 g 025 Active ipratropium-albut tawanda (Duo-Neb) 0.5-2.5 mg/3 mL nebulizer solutionIndicatio ns:Pulmonary emphysema, unspecified emphysema type (CMS/HCC) INHALE 1 AMPULE USING A NEBULIZER THREE TIMES DAILY IN THE MORNING, AT NOON, AND AT BEDTIME NEEDED FOR WHEEZING 180 mL 025 Active Spiriva Respimat 2.5 MCG/ACT inhaler Inhale 2 puffs in the morning. 023 2024 Discontinued(N on-compliance) Stiolto Respimat 2.5-2.5 MCG/ACT aerosol solution inhaler INHALE 2 PUFFS BY MOUTH ONCE DAILY 023 2024 Discontinued(T herapy completed) ipratropium-albut tawanda (Duo-Neb) 0.5-2.5 mg/3 mL nebulizer solutionIndicatio ns:Pulmonary emphysema, unspecified emphysema type (CMS/HCC) INHALE 1 AMPULE USING A NEBULIZER THREE TIMES DAILY IN THE MORNING, AT NOON, AND AT BEDTIME NEEDED FOR WHEEZING 180 mL 025 2024 Discontinued(R eorder (will not trigger notification to Pharmacy)) albuterol (Ventolin HFA) 108 (90 Base) MCG/ACT inhalerIndication s:Pulmonary emphysema, unspecified emphysema type (CMS/HCC) INHALE 2 PUFFS BY MOUTH EVERY 4 TO 6 HOURS NEEDED 18 g 025 2024 Discontinued(R eorder (will not trigger notification to Pharmacy)) buprenorphine-nal oxone (Suboxone) 4-1 MG per sublingual filmIndications:U ncomplicated opioid dependence (CMS/HCC) Place 1 Film under the tongue Once per day for 7 days. This is in addition to his 8/2mg BID regimen. Do not start before February 19, 2025. 7 Film 025 2024 Discontinued(R eorder (will not trigger notification to Pharmacy)) Buprenorphine HCl-Naloxone HCl (Suboxone) 8-2 MG SL filmIndications:U ncomplicated opioid dependence (CMS/HCC) Place 1 Film under the tongue 2 times daily for 7 days. Suboxone 4mg/1mg SL daily added to the 8/2mg BID regimen. Do not start before February 19, 2025. 14 Film 025 2024 Discontinued(R eorder (will not trigger notification to Pharmacy)) albuterol (Ventolin HFA) 108 (90 Base) MCG/ACT inhalerIndication s:Pulmonary emphysema, unspecified emphysema type (CMS/HCC) INHALE 2 PUFFS BY MOUTH EVERY 4 TO 6 HOURS NEEDED 18 g 025 2024 Discontinued(R eorder (will not trigger notification to Pharmacy)) Buprenorphine HCl-Naloxone HCl (Suboxone) 8-2 MG SL filmIndications:U ncomplicated opioid dependence (CMS/HCC) Place 1 Film under the tongue 2 times daily for 7 days. Suboxone 4mg/1mg SL daily added to the 8/2mg BID regimen. 14 Film 025 2024 Discontinued(R eorder (will [...] to the 8/2mg BID regimen. 14 Film 025 2024 Discontinued(R eorder (will not trigger notification to Pharmacy)) albuterol (Ventolin HFA) 108 (90 Base) MCG/ACT inhalerIndication s:Pulmonary emphysema, unspecified emphysema type (CMS/HCC) INHALE 2 PUFFS BY MOUTH EVERY 4 TO 6 HOURS NEEDED 18 g 025 2024 Discontinued(R eorder (will not trigger notification to Pharmacy)) Active Problems Patient Care Coordination No te Formatting of this note migh t be different from the original. C3/CM Debra Denise RN, TC #3 Unsuccessful call/Program Graduation Problem Noted Date Diagnosed Date Chronic pain of both knees 01/28/2025 Assessment & Plan (01/28/2025 10:00 AM EDT): Evaluated by [facility] Pain clinic 12/2024 s/p steroid injections Sleep disturbances 07/02/2024 Assessment & Plan (07/02/2024 [...] positive. Under the care of Dr Gerber Production Truck Driver kathleen greene 04/16/2024 who recommended Apixaban 5 mg po BID x 3 months and follow up with him. Pt reports compliance with it. Repeat CT 06/24/2024 showed: IMPRESSION: 1. No central or segmental pulmonary emboli. 2. Mild centrilobular emphysema. VTE: negative. Pneumonia due to infectious organism 01/09/2024 Assessment & Plan (01/09/2024 10:18 AM EDT): Pt admitted to [facility] for Acute hypoxic respiratory failure and [...] chest x-ray for resolution We contacted his Production Truck Driver Dr. Gerber. He was given an appointment for this Monday at 10:15 AM I contacted his VNA who will be arranging transportation for him. Obtain Plain x-ray of chest for f/u Pneumonia. Acute pain of right shoulder 01/09/2024 Assessment & Plan (01/09/2024 10:15 AM EDT): Seen at our [facility] 01/04/2024 Plain films showed: No acute finding. Old healed right midclavicular fracture. Plan: Ortho referral Right lower lobe lung mass 11/14/2023 Assessment & Plan (01/28/2025 10:04 AM EDT): Patient was seen in the [...] PET CT , Pt referred back to [facility] Pulmonology for consideration of lung biopsy he is a patient of Dr. Gerber. While in the Hospital Pt had a repeat Chest CT 11/29/2023 ( [facility] ) that showed: IMPRESSION: 1. Near [...] Based on that the biopsy was aborted. Repeat Chest CT 06/24/2024 sjhowed: CT/CT angio chest PE protocol IMPRESSION: 1. No central or segmental pulmonary emboli. 2. Mild centrilobular emphysema. VTE: negative. Pt will continue to follow with Dr Gerber who will repeat Chest CT at some point last seen 11/2024 Assessment & Plan (01/09/2024 10:27 AM EDT): [...] PET CT , Pt referred back to [facility] Pulmonology for consideration of lung biopsy he is a patient of Dr. Gerber. While in the Hospital Pt had a repeat Chest CT 11/29/2023 ( [facility] ) that showed: IMPRESSION: 1. Near [...] biopsy was aborted. Pt has appointment with Production Truck Driver Dr. Gerber this Monday at 10:15 AM [...] PET CT Ordered, Pt referred back to [facility] Pulmonology for consideration of [...] currently depressed, moderate 07/04/2023 Assessment & Plan (01/28/2025 11:15 AM EDT): Pt here for a follow up He tells me he is seeing a psychotherapist and a psychiatrist (Lizette chavez) He did not bring his med list I called the Pharmacy who confirmed he is being prescribed: Mirtazapine 15 mg po at bedtime Effexor XR 150 mg po daily plus 37.5 mg daily Risperdal 1 mg po in AM and 3 mg at PM Hydroxyzine 25 mg po q 12 hrs PRN for anxiety Klonopin 0.5 mg po BID PRN anxiety Seroquel 100 mg po BID and 400 mg at bedtime Zolpidem 5 mg po at bedtime prn insomnia They will continue to prescribe all of his medications Assessment & Plan (10/29/2024 10:19 AM EDT): [...] Pt tells me has an appointment with [facility] for Behavioral health 09/26/2023 I have [...] Pt tells me has an appointment with [facility] for Behavioral health next week, I [...] him to harm himself. While in the [facility] he was found to be depressed [...] insomnia Pt apparently has an appointment with [facility] for Behavioral health on Monday, I [...] 3. Nonobstructing bilateral nephrolithiasis. Will refer to [facility] Pain Clinic Assessment & [...] obtain MRI lumbar spine Will refer to [facility] Pain Clinic Assessment & [...] with psychotic features 12/16/2022 Assessment & Plan (01/28/2025 10:06 AM EDT): Seeing a new psychiatrist and psychotherapist per his report, does not recall their names Assessment & Plan (07/02/2024 11:08 AM EST): Seeing a new psychiatrist and psychotherapist per his report, does not recall their names Assessment & Plan (12/16/2022 4:00 PM EDT): Assessment Augustin was engaged with active reflective listening and open-ended questions. Assessed symptoms, risks, and social supports with direct questions. Discussed current symptoms intensity and frequency. Emotions were normalized and validated. He was emani xiong to identify coping mechanisms or protective factors. [...] in services. PLAN: 1. Follow up with [facility]: Recommended for follow-up: during AUD clinic [...] [facility]; awaiting follow-up appointments. head coach in place through [facility] as well as attending group on Monday mornings. Patient has information about [facility] and [facility]. 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 Follow up with [facility]: Not recommended for follow-up 2. Patient goal is to remain sober 3. Behavioral Recommendations a. Comply with medication b. Attend groups c. Engage in therapy and psychiatry d. Utilize middle school coach as a support e. May reach out to [facility] for additional support Assessment & Plan (10/03/2022 5:03 PM EDT): Sent to ED/section 12a form filled out. Called ambulance and [facility] ED for soft sign [...] Unclear current meds, no discharge summary from [facility] available. Spoke with [facility] crisis screen making supervisor Jaci And suggested to send to [...] Verapamil SR 120mg daily Assessment & Plan (01/28/2025 10:05 AM EDT): Patient with Hx of Hypertension Most recent electrolytes, Bun and Creatinine done on: Lab Results Component Value Date NA 139 08/21/2024 NA 138 06/24/2024 K 4.0 08/21/2024 K 3.8 06/24/2024 CL 107 08/21/2024 CL 106 06/24/2024 BUN 12 08/21/2024 BUN 10 06/24/2024 CREATININE 0.80 08/21/2024 CREATININE 0.60 06/24/2024 were within normal limits. No longer on Verelan PM 120 mg po qhs Patient advised to adhere to a low sodium diet, encouraged about medication compliance, counseled about weight loss. Assessment & Plan (10/29/2024 10:15 AM EDT): [...] WNL. Pt was also referred to a mobile marketing specialist to r/o hematologic conditions. vs anemia of chronic disease. and to GI to r/o GIB. Pt did nto go to either. compliance is a major problem. Last CBC 06/03/2022 was unchanged. Assessment & Plan (08/15/2022 12:35 PM EST): Pt with normocytic normochromic anemia, etiology ? chronic disease ? vs other etiologies Iron studies weer abnormal b 12 , folate, retic WNL. SPEP, WNL. Pt was also referred to a mobile marketing specialist to r/o hematologic conditions. vs anemia of chronic disease. and to GI to r/o GIB. Pt did nto go to either. compliance is a major problem. Last CBC 06/03/2022 was unchanged. [facility] health care 08/01/2022 Assessment & Plan (10/29/2024 [...] control. - Seems patient got vivitrol from [facility]. But has naltrexone on file; message to be conveyed to AUD treatment team. Assessment & Plan (08/15/2022 12:33 PM EST): Colonoscopy: 01/08/2018 Normal 10 year f/u Finger lesion 08/01/2022 Assessment & Plan (08/15/2022 12:37 PM EST): Pt with a previously described small round hyperkeratotic lesion on his left index finger. initially evaluated at [facility] for consideration of excision. They recommended pt see a customer service driver. he was seen by a local customer service driver Dr Ortiz who recommended a plastic surgeon [...] and COPD exacerbation he was transferred to [facility] 12/16/2023 psychiatric siu where he remained until 12/28/2023 His medications were adjusted and once stable he was discharged. Pt today reports he feels good, [facility] and feels much better. No concerns Assessment & Plan (07/04/2023 4:14 PM EST): Here after a recent Hospital admission where he was admitted for depression and underlying Bipolar disorder Assessment & Plan (04/18/2023 11:50 AM EDT): Patient here for a HDF admitted to [facility] from 04/01 until 04/03 presented via EMS for increased SOB. Admitted for COPD exacerbation, started on nebs, steroids, and cough medication. Discharged home on 2 more days of azithromycin, prednisone and codeine/guaifenesin for cough. Patient was then admitted to [facility] from 04/05 until 04/07 with viral URI and COPD exacerbation. Treated with prednisone and azithromycin x 3 days. Given Breo, Spiriva and Duonebs prn. Patient improved and ambulated w/o difficulty. Discharged on 3 more days of prednisone, Spiriva, Symbicort and albuterol. Discharged home to f/u [facility] PCP. Pt was seen by pulmonology 04/14/23 Dr. Gerber's office to confirm which inhalers patient was to continue as their office sent in a Stiolto. Per Debra, after discussion with Dr. Gerber who stated patient is to continue on Stiolto and albuterol inhalers and discontinue Symbicort, Spiriva and Flovent. He confirmed their office would reach out to patient to instruct him Assessment & Plan (03/07/2023 9:47 AM EDT): Patient is here for a HDF, recently admtted and discharged 02/24 from [facility] after he presented with [...] 12 in the ED and admitted to [facility] from 06/21 to 07/08 for severe [...] stay. Patient discharged home to F/U with [facility]. Patient reports feeling b anson since discharge. Using medications prescribed at discharge, and reports he is in need of refills. Patient gets help from nurse to administer medications. Patient reports having F/U with a counselor however reports that appointment is in [place] and reports interest in getting counselor or psych treatment at [facility]. Pulmonary emphysema 06/14/2022 Assessment & Plan (01/28/2025 10:02 AM EDT): Patient is here for a follow up. He is doing well on: Symbicort, duo nebs, and albuterol MDI and follows with Dr. Gerber last seen 11/25/2024. Most recent PFTs done 08/30/2019 showed severe [...] PET/CT or biopsy. I referred back to [facility] Pulmonology department since he is a patient of Buzz Barcenas and I ordered a PET-CT but this was not done ( pt was admitted to the Hospital ) Repeat Chest CT 06/24/2024 showed: IMPRESSION: 1. No central or segmental pulmonary emboli. 2. Mild centrilobular emphysema. VTE: negative. Dr. Gerber discontinued his Apixaban Assessment & Plan (10/29/2024 10:13 AM EDT): [...] PET/CT or biopsy. I referred back to [facility] Pulmonology department since he is a patient [...] PET/CT or biopsy. I referred back to [facility] Pulmonology department since he is a patient of Buzz Barcenas and I ordered a PET-CT but this was not done ( pt was admitted to the Hospital ) Repeat Chest CT 11/28/ at [facility] showed: IMPRESSION: 1. Near complete resolution [...] or biopsy. I have referred back to [facility] Pulmonology department since he is a patient [...] he no showed Recently hospitalized 01/16/2023 at [facility] for COPD exacerbation as [...] twice, no showed Recently hospitalized 01/16/2023 at [facility] for COPD exacerbation as [...] [facility] our [facility] tomorrow Recent test at [facility] 03/24/2023 was positive for Cocaine Patient was referred for our [facility] Cocaine support group. I had a explained to patient that he is not a good candidate for Narcotics given his Hx of substance abuse and active use of Cocaine Assessment & Plan (03/28/2023 1:01 PM EDT): Previous visit he told me he was not using Recent test at [facility] 03/24/2023 was positive for [...] Plan (02/07/2023 12:55 PM EDT): Admitted to [facility] 01/16/2023 for COPD exacerbation in the setting of ongoing cocaine abuse Pt referred to the [facility] Assessment & Plan (10/03/2022 5:03 PM EDT): Pos Urine tox today. Patient states he hasn't used since hospitalization Mixed hyperlipidemia 05/12/2016 Assessment & Plan (01/28/2025 10:06 AM EDT): Most recent lipid profile from: Lab Results Component Value Date TRIG 65 08/21/2024 CHOL 137 08/21/2024 LDLCHOLCAL 74 08/21/2024 HDL 50 08/21/2024 Within normal limits He is on Atorvastatin Plan: Continue Atorvastatin 40 mg po at bedtime. advised to try to adhere to a low cholesterol diet, counseled and educated about diet and exercise, Patient encouraged to come up with a personal goal for weight loss. Assessment & Plan (04/04/2023 4:13 PM EDT): [...] EDT): I spoke with pt's VNA from [facility] . Pt is already scheduled to [...] intervention, Augustin agreed. Patient has Psychiatrist at [facility] but his VNA adriana has not [...] obtain help. PLAN: 1. Follow up with [facility]: Recommended for follow-up: during [facility] appt 2. Patient goal is to imporve mental health and become sober 3. Behavioral Recommendations a. Crisis Evaluation b. Taking Psych meds as prescribed c. Keeping in touch with -MR and [facility] Assessment & Plan (04/04/2023 4:02 PM EDT): Patient here for a follow up He has a VNA from [facility] . He was supposed to see [...] and others were modified. Previously admitted to [facility] from 06/21 to 07/08 for severe depression with SI and planned to OD on pills. Patient reported his son was murdered and he fell into deep depression, and relapsed to using cocaine daily. Assessment & Plan (03/07/2023 1:41 PM EDT): Patient here for a follow up I spoke with pt's VNA from [facility] . Pt is already scheduled to [...] to miss his appointments Previously admitted to [facility] from 06/21 to 07/08 for severe depression with SI and planned to OD on pills. Patient reported his son was murdered and he fell into deep depression, and relapsed to using cocaine daily. Assessment & Plan (02/07/2023 12:59 PM EDT): Patient here for a follow up Previously admitted to [facility] from 06/21 to 07/08 for severe [...] he was seeing Dr Jeffery Harkins in [place] The recommendation from [facility] is [...] tells me has a follow up at [facility] on 08/17/2022 at 1:30 PM was also sectioned 12 in the ED and admitted to [facility] from 06/21 to 07/08 for severe [...] of his stay. Patient discharged home to / with [facility]. Prior to this admission pt told me he was seeing Dr Jeffery Harkins in [place] Prior to his admission he was on [...] then every other day until DC Encounters * This document contains information received from the source organization and may not represent a complete record from that organization. Date Type Department Care Team Description 03/14/2025 Refill [facility] [address] [place] [address] Georgina Ann RN Uncomplicated opioid dependence (CMS/HCC) 03/12/2025 9:00 AM EDT Clinical Support [facility] [address] [facility] [place] [address] Georgina Ann RN Uncomplicated opioid dependence (CMS/HCC) 03/12/2025 Travel 03/07/2025 Orders Only [facility] [address] [facility] [place] [address] Felicia Hdz ANP 03/07/2025 Refill [facility] [address] [facility] [place] [address] Vince Lockhart MD Pulmonary emphysema, unspecified emphysema type (CMS/HCC) 03/05/2025 9:00 AM EDT Office Visit [facility] [address] [facility] [place] [address] Alexander Jones MD Uncomplicated opioid dependence ([facility]/HCC) (Primary Dx) 03/05/2025 Refill [facility] [address] [place] [address] Georgina Ann RN Uncomplicated opioid dependence ([facility]/HCC) 03/05/2025 Orders Only [facility] [address] [facility] [place] [address] Felecia Casey MD Pulmonary emphysema, unspecified emphysema type ([facility]/HCC) 03/05/2025 Travel 03/04/2025 Telephone [facility] [place] [address] Vince Lockhart MD Medication Question 03/03/2025 Refill [facility] [address] [place] [address] Georgina Ann RN Uncomplicated opioid dependence ([facility]/HCC) 02/27/2025 Refill [facility] [address] [place] [address] Vince Lockhart MD Pulmonary emphysema, unspecified emphysema type (CMS/HCC) 02/26/2025 9:00 AM EDT Office Visit [facility] [address] [place], [place] [address] [place] [address] Alexander Jones MD Uncomplicated opioid dependence (CMS/HCC) (Primary Dx) 02/26/2025 Travel 02/26/2025 Refill [facility] [address] [place] [phone] Liseth Oliveira RN Uncomplicated opioid dependence ([facility]/HCC) 02/25/[address] [address] Vince Lockhart MD Call Back Request 02/20/2025 Refill [facility] [address] [place] [phone] Vince Lockhart MD Pulmonary emphysema, unspecified emphysema type (CMS/HCC) 02/19/2025 9:00 AM EDT Office Visit [address] [address] Alexander Jones MD Uncomplicated opioid dependence (CMS/HCC) (Primary Dx) 02/19/2025 Travel 02/12/2025 9:00 AM EDT Office Visit [address] [address] Alexander Jones MD Uncomplicated opioid dependence (CMS/HCC) (Primary Dx) 02/12/2025 Refill [facility] [address] [place] [phone] Georgina Ann RN Uncomplicated opioid dependence (CMS/HCC) 02/12/2025 Travel 02/07/2025 Refill [facility] [address] [place] [phone] Georgina Ann RN Uncomplicated opioid dependence ([facility]/HCC) 02/05/2025 9:00 AM EDT Office Visit [address] [address] Alexander Jones MD Uncomplicated opioid dependence (CMS/HCC) (Primary Dx) 02/05/2025 Travel 02/03/[address] [address] Vince Lockhart MD ER Follow-up 02/01/2025 Orders Only GENERIC EXTERNAL DATA DEPARTMENT Provider, Generic External Data 01/31/2025 Refill [facility] [address] [place] [phone] Georgina Ann RN Uncomplicated opioid dependence (CMS/HCC) 01/29/2025 9:00 AM EDT Office Visit [facility] [address] [facility] [place] [address] Alexander Jones MD Uncomplicated opioid dependence (CMS/HCC) (Primary Dx) 01/29/2025 Travel 01/28/2025 10:00 AM EDT Office Visit [facility] [address] [facility] [place] [address] Vince Lockhart MD Primary hypertension (Primary Dx); Mixed hyperlipidemia; Chronic pain of both knees; Pulmonary emphysema, unspecified emphysema type (CMS/HCC); Right lower lobe lung mass; Bipolar affective disorder, currently depressed, moderate (CMS/HCC); 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, unspecified whether recurrent (CMS/HCC) 01/28/2025 Patient Outreach [facility] [address] [facility] [place] [address] Naif Avelar Recovery Supports 01/28/2025 Travel 01/27/2025 2:30 PM EDT Office Visit [facility] [address] [place] [address] Reji Manning, YOVANI 01/27/2025 Telephone [facility] [place] [address] Vince Lockhart MD chart prep 01/23/2025 Refill [facility] [place] [address] Liseth Oliveira RN Uncomplicated opioid dependence ([facility]/HCC) 01/22/2025 9:00 AM EDT Office Visit [facility] [place] [address] Alexander Jones MD Uncomplicated opioid dependence (CMS/HCC) (Primary Dx) 01/22/2025 Travel 01/21/2025 Refill [facility] [place] [address] Liseth Oliveira, GUERO Uncomplicated opioid dependence (CMS/HCC) 01/16/2025 Refill [facility] [address] [place] [address] Vince Lockhart MD Benign prostatic hyperplasia with nocturia 01/15/2025 9:00 AM EDT Office Visit [facility] [address] [place] [address] Alexander Jones MD Uncomplicated opioid dependence ([facility]/HCC) (Primary Dx) 01/15/2025 Travel 01/10/2025 Refill [facility] [address] [place] [address] Liseth Oliveira RN Uncomplicated opioid dependence ([facility]/HCC) 01/08/2025 9:00 AM EDT Office Visit [facility] [address] [place] [address] Jonah Maradiaga MD Uncomplicated opioid dependence ([facility]/HCC) (Primary Dx); Cocaine use 01/08/2025 Travel 01/01/2025 9:00 AM EDT Office Visit [facility] [address] [place] [address] Alexander Jones MD Uncomplicated opioid dependence ([facility]/HCC) (Primary Dx) 01/01/2025 Refill [facility] [address] [place] [address] Georgina Ann RN Uncomplicated opioid dependence ([facility]/HCC) 01/01/2025 Travel 12/25/2024 9:00 AM EDT Office Visit [facility] [address] [place] [address] Alexander Jones MD Uncomplicated opioid dependence ([facility]/HCC) (Primary Dx) 12/25/2024 Refill [facility] [address] [place] [address] Georgina Ann RN Uncomplicated opioid dependence ([facility]/HCC) 12/25/2024 Travel 12/23/2024 Telephone [facility] [address] [place] [address] Vince Lockhart MD Nurse Triage 12/18/2024 Refill [facility] [address] [place] [address] Georgina Ann RN Uncomplicated opioid dependence ([facility]/HCC) 12/17/2024 Refill [facility] [address] [place] [address] Vince Lockhart MD from Last 3 Months Immunizations Immunization Administration Dates Next Due Influenza injectable quadriv [...] Reading Time Taken Comments Blood Pressure 130/80 01/28/2025 9:59 AM EDT Pulse 90 01/28/2025 9:59 AM EDT Temperature 36.4 C (97.5 F) 01/28/2025 9:59 AM EDT Respiratory Rate 20 01/28/2025 9:59 AM EDT Oxygen Saturation 97% 01/28/2025 9:59 AM EDT Inhaled Oxygen Concentration - - Weight 65.3 kg (144 lb) 01/28/2025 9:59 AM EDT Height 162.6 cm (5' 4 ) 01/28/2025 9:59 AM EDT Body Mass Index 24.72 01/28/2025 9:59 AM EDT Plan of Treatment Upcoming Encounters Date Type Department Care Team (Late st Contact Info) Description 03/18/2025 1:30 PM EDT Office Visit [facility] [address] [place] [address] Nils Bower DDS [address] [place] [address] 03/19/2025 9:00 AM EDT Office Visit [facility] [address] [place] [address] Alexander Jones MD [address] [place] [address] 03/26/2025 9:00 AM EDT Office Visit [facility] [address] [place] [address] Alexander Jones MD [address] [place] [address] 04/22/2025 10:00 AM EDT Office Visit [facility] [address] [place] [address] Vince Lockhart MD [address] [place] [address] 07/24/2025 10:00 AM EST Office Visit [facility] [address] [place] [address] Tory Garcia, OD [address] [place] [address] Health Maintenance Due Date Last Done Comments [...] 2024 09/21/2023, 07/08/2021, 09/30/2020 Influenza Vaccine (#1) 2025 , 08/23/2022, 04/07/2021, Additional history exists Alcohol/Substance Use Screening 07/02/2025 07/02/2024 Depression Screening 07/02/2025 07/02/2024, 07/02/20 24 Diabetes: Hemoglobin A1C 08/21/2025 08/21/2024 Disability Screening 10/29/2025 10/29/2024 SDOH Screening 10/29/2025 10/29/2024 Tobacco Screening 01/27/2026 01/27/2025 Dental X-Ray: Full Mouth 10/26/2026 10/26/2023, 07/18 [...] General On track( 025 4:15 PM EDT) Georgina Cameron RN Procedures Procedure Name Priority Date/Time Associated Diagnosis Comments POCT MARIA ANTONIA-14 URINE DRUG SCREEN Routine 03/05/2025 9:13 AM EDT Uncomplicated opioid dependence (CMS/HCC) POCT MARIA ANTONIA-14 URINE DRUG SCREEN Routine 02/19/2025 9:07 AM EDT Uncomplicated opioid dependence (CMS/HCC) POCT MARIA ANTONIA-14 URINE DRUG SCREEN Routine 02/05/2025 9:07 AM EDT Uncomplicated opioid dependence (CMS/HCC) GLUCOSE, WHOLE BLOOD Routine 02/01/2025 11:09 PM EDT XR CHEST 2 VIEWS Routine 02/01/2025 10:4 7 PM EDT HIGH SENSITIVITY TROPONIN I Routine 02/01/2025 10:05 PM EDT B TYPE NATRIURETIC PEPTIDE (BNP) Routine 02/01/2025 10:05 PM EDT BASIC METABOLIC PANEL Routine 02/01/2025 10:05 PM EDT CBC WITH AUTO DIFFERENTIAL Routine 02/01/2025 10:05 PM EDT SARS COV2/INFLUENZA A/B AND RSV RNA QL NAAT Routine 02/01/2025 10:05 PM EDT POCT MARIA ANTONIA-14 URINE DRUG SCREEN Routine 01/29/2025 8:59 AM EDT Uncomplicated opioid dependence (CMS/HCC) DENTURE ADJUSTMENT Routine 01/27/2025 2: 30 PM EDT INTRAORAL - PERIAPICAL FIRST RADIOGRAPHIC IMAGE Routine 01/27/2025 2:30 PM EDT LIMITED ORAL EVALUATION - PROBLEM FOCUSED Routine 01/27/2025 2:30 PM EDT POCT MARIA ANTONIA-14 URINE DRUG SCREEN Routine 01/22/2025 9:11 AM EDT Uncomplicated opioid dependence (CMS/HCC) POCT MARIA ANTONIA-14 URINE DRUG SCREEN Routine 01/15/2025 8:58 AM EDT Uncomplicated opioid dependence (CMS/HCC) POCT MARIA ANTONIA-14 URINE DRUG SCREEN Routine 01/08/2025 9:12 AM EDT Uncomplicated opioid dependence (CMS/HCC) POCT MARIA ANTONIA-14 URINE DRUG SCREEN Routine 01/01/2025 9:05 AM EDT Uncomplicated opioid dependence (CMS/HCC) POCT MARIA ANTONIA-14 URINE DRUG SCREEN Routine 12/25/2024 9:11 AM EDT Uncomplicated opioid dependence (CMS/HCC) HEMOGLOBIN A1C Routine [...] Recently Relevant to Health Maintenance Results * (ABNORMAL) POCT MARIA ANTONIA-14 Urine Drug Screen (03/05/2025 9:13 AM EDT) Only the most recent of9 resultswithin the time period is included. THC Positive(A) Negative Cocaine Screen, Urine Negative Negative Opiate Screen, Urine Negative Negative Methamphetamine Screen Urine Negative Negative Amphetamine Screen, Urine Negative Negative Benzodiazepines Screen, Urine Negative Negative Barbiturate Screen, Urine Negative Negative Methadone Screen, Urine Negative Negative Buprenophine Screen, Urine Positive(A) Negative TCA, Urine Negative Negative MDMA Urine Negative Negative ng/mL Oxycodone Screen, Urine Negative Negative Phencyclidine (PCP), Urine Negative Negative Fentanyl, Urine Negative Negative Urine Urine specimen obtained by clean catch procedure / Unknown 03/05/2025 9:13 AM EDT Alexander Jones MD POINT OF CARE TEST ENTER/EDIT OR DERABLES Final Result * (ABNORMAL) Glucose, Whole Blood (02/01/2025 11:09 PM EDT) Pathologist [facility] Glucose, Whole Blood 168(H) 60 - 115 mg/dL [facility] Comment:METER #: [id number] 02/01/2025 11:0 9 PM EDT 02/01/2025 11:18 PM EDT us Generic External Data Provider LAB BLOOD ORDERAB LES Final Result [facility] [address] [place] [phone] * XR Chest 2 Views (02/01/2025 10:47 PM EDT) Anatomical Region Laterality Modality Chest Radiographic Kailee ging 02/01/2025 10:4 7 PM EDT Narrative 02/01/2025 10:48 PM EDT [address] [address] XRay Report Signed Patient: Augustin Vital MR#: [id number] : 1965 Acct:[id number] Age/Sex: 59 / M ADM Date: 02/01/25 Loc: HO.ED Attending Dr: Ordering Physician: Benjamin Mishra MD Date of Service: 02/01/25 Procedure(s): XR chest 2V Accession Number(s): [id number] cc: Vince Doran MD; Benjamin Mishra MD CLINICAL HISTORY: cp 2 view chest x-ray Comparison: 06/24/2024 Findings: Lungs are clear without acute infiltrates. Bochdalek's hernia left hemidiaphragm. Finding is unchanged from multiple prior studies. No pneumothorax. Heart size normal. No acute bony abnormalities. Impression: No acute processes This document has been electronically signed by: Srini Hernandez MD on 02/01/2025 22:47:05 Dictated By: Srini Hernandez MD Signed By: <Electronically signed by Srini Hernandez MD in OV> 02/01/252247 DD/ 46 TD/TT: 02/01/252246 Solderer Assembler: Procedure Note Donotuseinterpreter, Image - 02/01/2025 [place] [address] XRay Report Signed Patient: Loly Vital#: [id number] : 1965Acct:[id number] Age/Sex: 59 / MADM Date: 02/01/25 Loc: HO.ED Attending Dr: Ordering Physician: Benjamin Mishra MD Date of Service: 02/01/25 Procedure(s): XR chest 2V Accession Number(s): [id number] cc: Vince Doran MD; Benjamin Mishra MD CLINICAL HISTORY: cp 2 view chest x-ray Comparison: 06/24/2024 Findings: Lungs are clear without acute infiltrates. Bochdalek's hernia left hemidiaphragm. Finding is unchanged from multiple prior studies. No pneumothorax. Heart size normal. No acute bony abnormalities. Impression: No acute processes This document has been electronically signed by: Srini Hernandez MD on 02/01/2025 22:47:05 Dictated By: Srini Hernandez MD Signed By: <Electronically signed by Srini Hernandez MD in OV> 02/01/252247 DD/ 46 TD/TT: 02/01/252246 Solderer Assembler: [facility] External Provider IMG XR PROCEDURES Edited Result - Final * High Sensitivity Troponin I (02/01/2025 10:05 PM EDT) Pathologist [facility] TROPONIN I HIGH SENSITIVITY <2.7 <3.5 - 35.0 ng/L [facility] Comment:The Rosales high sens itivity Troponin-I results should beused in conjunction with other diagnostic information suchas ECG, clinical observations and information, and patientsymptoms to aid in the diagnosis of ME. 02/01/2025 10:0 5 PM EDT 02/01/2025 10:09 PM EDT Generic External Data Provider LAB BLOOD ORDERAB LES Final Result [facility] [address] [place] [phone] * SARS-CoV-2 RNA, Influenza A/B, and RSV RNA, Ql NAAT (02/01/2025 10:05 PM EDT) [facility] Influenza A PCR NEGATIVE Negative [facility] Influenza B PCR NEGATIVE Negative [facility] Resp Syncy Virus RNA Qual PCR NEGATIVE Negative [facility] SARS COV2 PCR NEGATIVE Negative [facility] Comment:All test results mus t [...] use by authorized laboratories.Testing performed on the Streak GeneXpert utilizingreal-time RT-PCR.All SARS CoV2 and positive influenza A/B results arereported to [facility]. 02/01/2025 10:0 5 PM EDT 02/01/2025 10:09 PM EDT us Generic External Data Provider LAB MICROBIOLOGY - GENERAL ORDERABLES Final Result [facility] [address] [place] [address] [phone] * (ABNORMAL) CBC auto differential (02/01/2025 10:05 PM EDT) White Blood Count 7.5 4.8 - 10.8 X10*3/uL [facility] Red Blood Count 4.37(L) 4.60 - 5.80 X10*6/uL [facility] Hemoglobin 12.9(L) 14.0 - 18.0 g/dl [facility] Hematocrit 37.5(L) 42.0 - 52.0 % [facility] Mean Corpuscular Volume 85.8 80.0 - 98.0 fL [facility] Mean Corpuscular Hemoglobin 29.5 27.0 - 33.0 pg [facility] Mean Corpuscular HGB Conc 34.4 31.0 - 36.0 g/dl [facility] Red Cell Distribution Width 13.8 11.0 - 16.0 % [facility] Platelet Count 290 160 - 400 X10*3/uL [facility] Mean Platelet Volume 8.2(L) 9.4 - 12.4 fL [facility] Neutrophils Percent Auto 42.3(L) 45 - 73 % [facility] Imm Gran Pct Auto 0.4 0.0 - 0.4 % [facility] Lymphocytes Percent Auto 43.6(H) 20 - 40 % [facility] Monocytes Percent Auto 7.0 2 - 11 % [facility] Eosinophils Percent Auto 5.9(H) 0 - 4 % [facility] Basophils Percent Auto 0.8 0 - 2 % [facility] NRBC Pct Auto 0.0 0.0 - 0.2 /100WBC [facility] Neutrophils Absolute Auto 3.2 2.0 - 8.3 x10*3/uL [facility] Imm Gran Abs Auto 0.03 0.00 - 0.03 X10*3/uL [facility] Lymphocytes Absolute Auto 3.3 1.2 - 4.9 X10*3/uL [facility] Monocytes Absolute Auto 0.5 0.1 - 1.2 X10*3/uL [facility] Eosinophils Absolute Auto 0.4 0.0 - 0.4 X10*3/uL [facility] Basophils Absolute Auto 0.1 0.0 - 0.2 X10*3/uL [facility] NRBC Abs Auto 0.000 0.0 - 0.012 X10*3/uL [facility] 02/01/2025 10:0 5 PM EDT 02/01/2025 10:09 PM EDT us Generic External Data Provider LAB BLOOD ORDERAB LES Final Result Performing Organization Address City/[facility]/ZIP Co de Phone Number [facility] [address] [place] [address] [phone] * B Type Natriuretic Peptide (BNP) (02/01/2025 10:05 PM EDT) Pathologist [facility] B Type Natriuretic Peptide <10 <100 pg/mL [facility] 02/01/2025 10:0 5 PM EDT 02/01/2025 10:09 PM EDT us Generic External Data Provider LAB BLOOD ORDERAB LES Final Result Performing Organization Address [facility]/ZIP Co de Phone Number [facility] [address] [place] [phone] * (ABNORMAL) Basic Metabolic Panel (02/01/2025 10:05 PM EDT) Pathologist [facility] Sodium 142 135 - 145 mmol/L [facility] Potassium 3.6 3.3 - 5.1 mmol/L [facility] Chloride 106 96 - 108 mmol/L [facility] Carbon Dioxide 28 22 - 29 mmol/L [facility] Anion Gap 12 12 - 20 [facility] Urea Nitrogen (BUN) 11 9 - 16 mg/dL [facility] Creatinine, Serum 1.00 0.5 - 1.4 mg/dL [facility] Creatinine Clr Calc Pharmacy 64.9 [facility] Comment:eGFR (calculated fro m the MDRD study equation) and eCrCl(calculated from the Cockcroft-Gault equation) are based ondifferent parameters and may not yield comparable results.If eCrCl result is absurd, please check patient'sheight/weight. Estimated Glomerular Filt Rate >60 [facility] Comment:Chronic Kidney Disea se: Estimated GFR < 60 mL/min/1.22b0Ucvbxo Kidney Disease: Estimated GFR < 15 mL/min/1.73m2 Glucose 59(LL) 60 - 115 mg/dL [facility] Comment:Critical value for t est(s): GLUR Results called to and readback by: FRANCESCO Person calling: STEPHANY Date: 02.01.25Time: 2227 Calcium 8.7 8.4 - 10.2 mg/dL [facility] 02/01/2025 10:0 5 PM EDT 02/01/2025 10:09 PM EDT us Generic External Data Provider LAB BLOOD ORDERAB LES Final Result [facility] [address] [place] [phone] * Hemoglobin A1c (08/21/2024 9:04 AM EST) Hemoglobin A1c 5.7 <6.0 % [facility] Comment:Hemoglobin A1C Refer ence Range Adults: 4.8 - 6.0 % Non diabetic: < 6.0 % Goal: < 7.0 %Additional Action Suggested: > 8.0 %Note: Hemoglobin A1c results are invalid for patients with abnormal amounts of HbF. Blood transfusions may impact the HbA1c concentration in the patient sample. Estimated Average Glucose 117 mg/dL [facility] Comment:eAG = Estimated ave rage glucose which is %A1C expressed asaverage glucose, using the formula of the O5M-KkyvurrSgzmxhd Glucose study (ADAG), Diabetes Care, Vol.31,#8,Feb. 2007 Blood Venous blood specimen / Unknown 08/21/2024 9:04 AM EST 08/21/2024 10:51 AM EST Vince Avelar MD LAB BLOOD ORDERABLES Final Result [facility] [address] [place] [phone] * Lipid Panel, Standard (08/21/2024 9:04 AM EST) Triglycerides 65 <150 mg/dL [facility] Comment:Desirable Triglyceri de: less than 150 mg/dLBorderline High Triglyceride 150-199 mg/dLHigh Triglyceride: 200-499 mg/dLVery High Triglyceride: greater than or equal to 5OO mg/dL Cholesterol 137 <200 mg/dL [facility] Comment:Desirable Cholestero l: less than 200 mg/dLBorderline High Cholesterol: 200-239 mg/dLHigh Cholesterol: greater than 239 mg/dL LDL Cholesterol Calculated 74 <100 mg/dL [facility] Comment:Desirable LDL: less than 100 mg/dLNear Optimal/Above Optimal LDL: 110- 129 mg/dLBorderline High LDL: 130-159 mg/dLHigh LDL: 160-189 mg/dLVery High LDL: greater than or equal to 190 mg/dL HDL Cholesterol 50 >40 mg/dL [facility] Comment:Desirable HDL: great er than 40 mg/dL Note: This HDL assay may give artificially low results in patients with liver disease. Blood Venous blood specimen / Unknown 08/21/2024 9:04 AM EST 08/21/2024 10:51 AM EST Vince Avelar MD LAB BLOOD ORDERABLES Final Result Performing Organization Address [facility] Co de Phone Number [facility] [address] [place] [phone] * (ABNORMAL) Hepatitis C Antibody with Reflex to HCV, RNA, Quantitative, Real- Time PCR (08/24/2023 2:22 PM EST) Hepatitis C Antibody Reactive( A) Nonreactive [facility] Comment:Presumptive evidence of antibodies to HCV. Blood Venous blood specimen / Unknown 08/24/2023 2:22 PM EST 08/24/2023 4:01 PM EST us Alexander Jones MD LAB BLOOD ORDERABLES Final Resul t Performing Organization Address [facility] de Phone Number [facility] [address] [place] [phone] * HIV-1/2 Antigen and Antibodies, Fourth Generation, with Reflexes (08/24/2023 2:22 PM EST) HIV AB/AG Nonreactive Nonreactive [facility] Comment:HIV-1 p24 Ag and/or HIV-1/HIV-2 Ab not detected.A test result that is nonreactive does not exclude thepossibility of exposure to or infection with HIV-1 and/orHIV-2. Nonreactive results in this assay for individualswith prior exposure to HIV-1 and/or HIV-2 may be due toantigen and antibody levels that are below the limit ofdetection of this assay.The XtalicniYogome HIV Ag/Ab Combo assay result andsupplemental assay results should be interpreted inconjunction with the patient's clinical presentation,history and other laboratory results. If the results areinconsistent with clinical evidence, additional testing issuggested to confirm the result. Blood Venous blood specimen / Unknown 08/24/2023 2:22 PM EST 08/24/2023 4:01 PM EST us Alexander Jones MD LAB BLOOD ORDERABLES Final Resul t Performing Organization Address City/[facility] Co de Phone Number [facility] [address] [place] [phone] * Colonoscopy (01/08/2018) Colonoscopy Normal Normal 01/08/2018 Yulisa Lai - 01/08/2018 9:39 AM EDT Recommended 10 year follow up ( per provider notes) us Historical Provider MD HEALTH MAINTENANCE Edited Result - Final from Last 3 Months or Most Recently Relevant to Health Maintenance Insurance * Guarantor: Augustin Vital Account Type Relation to Patient Date of Phone Billing Address Personal/Family Self [address] [place] [id number] [facility] C3 Member Subscriber Plan / Payer (Ef fective 2023-Present) Name:Augustin Vital Relation to Subscriber:Self Name:Augustin Vital Payer ID:Not on file Group ID:Not on file Type:Medicaid Address: [facility] [id number] [place] [phone] * Guarantor: Augustin Vital Account Type Relation to Patient Date of Phone Billing Address Dental Self [address] [place] [id number] [facility] MEDICAID STAND ADULT Member Subscriber Plan / Payer (Ef fective 2023-Present) Name:Augustin Vital Relation to Subscriber:Self Name:Augustin Vital Payer ID:Not on file Group ID:Not on file Type:Not on file Address: [address] [place] [address] * Guarantor: Augustin Vital Account Type Relation to Patient Date of Phone Billing Address Personal/Family Self [address] [place] [address], [place] [address] * Guarantor: Augustin Vital Account Type Relation to Patient Date of Phone Billing Address Personal/Family Self [address] [place] [address] * Guarantor: Augustin Vital Account Type Relation to Patient Date of Phone Billing Address Personal/Family Self [address] [place] [address] Care Teams Dump Worker Relationship Specialty Start Date End Date Vince Lockhart MD [address] [place] [phone] PCP - General Internal Medicine 04/10/14 [facility] [place] 12/29/23
--- OUTSIDE RECORDS SUMMARY | 2025-03-14 11:06 | XMS_ITS | Encounter Summary ---
Author Organization [employer] Address 75 [facility] 7t [place] [address] Care Team Providers Care Smelter Charger Name Role Phone Vince Lockhart MD Primary Care Provide r Reason for Visit * Reason Comments Med Refill Encounter Details Date Type Department Care Team (Late st Contact Info) Description 02/19/2024 Refill [facility] MEDICINE [address] [place], [place] [phone] Vince Lockhart MD [address] [place], [place] [phone] Chronic midline low back pain without sciatica [...] Description 03/18/2025 1:30 PM EDT Office Visit [facility] ADULT DENTAL [address] [place] [address] Nils Bower DDS [address] [place] [address] 03/19/2025 9:00 AM EDT Office Visit [facility] MEDICINE [address] [place] [address] Alexander Jones MD [address] [place] [address] 03/26/2025 9:00 AM EDT Office Visit [facility] MED[facility]INE [address] [place] [address] Alexander Jones MD [address] [place] [address] 04/22/2025 10:00 AM EDT Office Visit [address] [address] Vince Lockhart MD [address] [place] [address] 07/24/2025 10:00 AM EST Office Visit [facility] OPTOMETRY [address] [place] [address] Tory Garcia, OD [address] [place] [address] documented as of this encounter Goals Goal [...] documented as of this encounter Care Teams Smelter Charger Relationship Specialty Start Date End Date Vince Lockhart MD [address] [place] [address] PCP - General Internal Medicine 04/10/14 [facility] 12/29/23 documented as of this encounter
== END 2025-03-14 10:53 | disposition home or self-care (01) ==
LOC: HO.HPS 10:25
PROVIDERS: PCP Internal Medicine; Visit Provider Internal Medicine Pulmonary Disease
DX: J44.9 Chronic obstructive pulmonary disease, unspecified (principal); Z87.891 Personal history of nicotine dependence
CPT/HCPCS: 99214

== ENCOUNTER → 2025-03-14 10:25 | Outpatient (BNVA) | payer MEDICAID, SELFPAY | PROVIDERS: PCP Internal Medicine; Visit Provider Internal Medicine Pulmonary Disease | DX: J44.9 Chronic obstructive pulmonary disease, unspecified (principal); Z87.891 Personal history of nicotine dependence | CPT/HCPCS: 99212 ==

== ENCOUNTER 2025-04-23 09:00 | Outpatient (REF) | payer MEDICAID, SELFPAY ==
--- NOTE | ~2025-04-23 | XR_ITS ---
EXAMINATION: XR CHEST CLINICAL INFORMATION: chest pain COMPARISON: X-ray 02/01/2025 TECHNIQUE: 2 views of the chest were obtained. FINDINGS: The cardiomediastinal silhouette is within normal limits. The lungs are well expanded. There is no focal consolidation, edema, or effusion. No pneumothorax. Redemonstrated left hemidiaphragm Boshdalek's hernia. No acute osseous abnormality. XR/XR chest 2V IMPRESSION: No acute pulmonary process. Electronically signed by: Francisco Jiang MD 04/23/2025 10:06 AM EDT
[2025-04-23 12:24] LABS: Blood Urea Nitrogen 11 mg/dL (9-16); Estimated Glomerular Filt Rate > 60
[2025-04-23 12:41] LABS: Prostate Specific Antigen 2.71 ng/mL (<0.05-4.0)
== END 2025-04-23 09:01 | disposition home or self-care (01) ==
LOC: HO.HHCL 09:00
PROVIDERS: Nurse Practitioner Family; PCP Internal Medicine; Visit Provider Internal Medicine
DX: N40.0 Benign prostatic hyperplasia without lower urinary tract symptoms (principal); R31.29 Other microscopic hematuria; R07.2 Precordial pain
CPT/HCPCS: 36415; 71046; 82565; 84153; 84520

== ENCOUNTER → 2025-04-23 09:21 | Outpatient (BNV) | payer MEDICAID, SELFPAY | PROVIDERS: PCP Internal Medicine; Visit Provider Radiology Diagnostic Ultrasound | DX: R07.9 Chest pain, unspecified (principal) | CPT/HCPCS: 71046 ==

== ENCOUNTER 2025-05-09 08:28 | Inpatient (IN) | payer MEDICAID, SELFPAY ==
[2025-05-09] VITALS (8 sets, daily range): BP systolic 127–148; BP diastolic 68–88; PULSE 87–104; RESP 10–20; TEMP 36–36.5; O2SAT 89–93; BMI 25.5; BMI 26.7
--- NOTE | ~2025-05-09 | CT_ITS ---
CLINICAL HISTORY: Headache CT head without contrast Comparison: 04/03/2024 Findings: No intracranial mass, midline shift, hydrocephalus, or acute hemorrhage. No CT evidence of acute ischemia. Visualized paranasal sinuses and mastoid air cells normal. Orbits unremarkable. No skull fracture Impression: 1. No acute intracranial abnormalities. This document has been electronically signed by: Chano Farmer MD on 05/10/2025 14:00:00
--- NOTE | ~2025-05-09 | XR_ITS ---
EXAMINATION: XR CHEST 1 VIEW HISTORY: dyspnea COMPARISON: Comparison is made with the prior examination dated 04/23/2025. FINDINGS: A single AP portable view of the chest performed at 9:16 AM is submitted. There is new patchy airspace opacity in the right middle lobe, consistent with pneumonia. The left lung is clear. Again seen is eventration of the left hemidiaphragm. There is no pleural effusion, pneumothorax, or pulmonary vascular congestion. The heart is normal in size. The bones are intact. XR/XR chest 1V IMPRESSION: Right middle lobe pneumonia. Follow-up is recommended to document resolution. Electronically signed by: Hemant Olsen MD 05/09/2025 09:28 AM EDT
--- NOTE | 2025-05-09 08:53 | ECG_ITS ---
Test Reason : chest pain Blood Pressure : */* mmHG Vent. Rate : 95 BPM Atrial Rate : 95 BPM P-R Int : 160 ms QRS Dur : 112 ms QT Int : 378 ms P-R-T Axes : 77 -23 77 degrees QTcB Int : 475 ms Normal sinus rhythm Incomplete right bundle branch block Nonspecific T wave abnormality Prolonged QT Abnormal ECG When compared with ECG of 01-Feb-2025 21:58, No significant change was found Referred By: Amanda Spivey Electronically Signed By: AKASH SUAREZ MD
--- NOTE | 2025-05-09 09:03 | ED.ASTHMA ---
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 He has not been on abx or steroids. He has no swelling, fevers, n/v/d. He states he has not traveled recently or had any procedures. He arrived 89% on RA MD complaint: asthma attack , shortness of breath and wheezing Onset (ago): day(s) (4) Severity: moderate Context: none known Associated symptoms: productive cough Asthma History: adult onset Related Data Home Medications ?Medication ?Instructions ?Recorded ?Confirmed clonazepam 0.5 mg tablet (Klonopin) 0.5 mg PO BID anxiety 12/15/23 01/06/25 ferrous sulfate 325 mg (65 mg 325 mg PO DAILY 01/25/24 01/06/25 iron) tablet,delayed release acetaminophen 500 mg tablet 500 mg PO Q6H PRN Pain 06/24/24 01/06/25 baclofen 10 mg tablet 10 mg PO TID 06/24/24 01/06/25 ipratropium 0.5 mg-albuterol 3 mg ml inhalation TID 06/24/24 01/06/25 (2.5 mg base)/3 mL nebulization soln mirtazapine 15 mg tablet 15 mg PO BEDTIME 06/24/24 01/06/25 mirtazapine 30 mg tablet 30 mg PO BEDTIME 06/24/24 01/06/25 pantoprazole 40 mg tablet,delayed 40 mg PO DAILY 06/24/24 01/06/25 release quetiapine 100 mg tablet 100 mg PO 1XD 06/24/24 01/06/25 sildenafil 100 mg tablet (Viagra) 100 mg PO DAILY PRN Erectile 06/24/24 01/06/25 Dysfunction trazodone 50 mg tablet 50 mg PO BEDTIME PRN insomnia 06/24/24 01/06/25 venlafaxine 150 mg 150 mg PO DAILY 06/24/24 01/06/25 capsule,extended release 24 hr buprenorphine 4 mg-naloxone 1 mg 1 film sublingual DAILY 11/21/24 01/06/25 sublingual film (Suboxone) hydroxyzine HCl 25 mg tablet 25 mg PO BID 11/21/24 01/06/25 risperidone 1 mg tablet 1 mg PO BEDTIME 11/21/24 01/06/25 risperidone 3 mg tablet 3 mg PO BEDTIME 11/21/24 01/06/25 trazodone 100 mg tablet 100 mg PO BEDTIME 11/21/24 01/06/25 venlafaxine 37.5 mg 37.5 mg PO DAILY 11/21/24 01/06/25 capsule,extended release 24 hr Previous Rx's ?Medication ?Instructions ?Recorded albuterol sulfate 90 mcg/actuation 2 puff inhalation Q4-6H PRN 06/30/23 aerosol inhaler (Ventolin HFA) Wheezing 30 days #6.7 grams atorvastatin 40 mg tablet 40 mg PO BEDTIME 30 days #30 tabs 06/30/23 tamsulosin 0.4 mg capsule 0.8 mg (2 x 0.4 mg) PO DAILY 30 06/30/23 days #60 caps zolpidem 5 mg tablet 5 mg PO BEDTIME PRN insomnia 15 06/30/23 days #15 tabs buprenorphine 8 mg-naloxone 2 mg 1 film sublingual DAILY 7 days #7 12/28/23 sublingual film (Suboxone) ea quetiapine 400 mg tablet 400 mg PO BEDTIME 30 days #30 tabs 12/28/23 topiramate 50 mg tablet 50 mg PO BEDTIME 30 days #30 tabs 12/28/23 furosemide 20 mg tablet 20 mg PO QAM #30 tabs 12/14/24 doxycycline hyclate 100 mg tablet 100 mg PO Q12H 7 days #14 tabs 02/01/25 fluticasone fur. 200 mcg-umeclid 1 inh inhalation DAILY #1 ea 03/14/25 62.5 mcg-vilant 25 mcg inhalat.powder (Trelegy Ellipta) levofloxacin 750 mg tablet 750 mg PO DAILY #10 tabs 03/14/25 Allergies Allergy/AdvReac Type Severity Reaction Status Date / Time ibuprofen Allergy Intermediate Stomach Verified 05/09/25 08:43 Upset penicillin V Allergy Intermediate rash Verified 05/09/25 08:43 Review of Systems Review of Systems: Constitutional : No Fever, No Chills ENT/Mouth : No Hoarseness, No sore throat, No Rhinorrhea Eyes: No Redness, No Discharge, No Vision Changes Cardiovascular : pos Chest Pain, positive SOB, No Edema Respiratory : positive Cough, pos Sputum, positive Wheezing, Gastrointestinal : No Nausea, No Vomiting, No Diarrhea, No abdominal Pain Genitourinary : No Dysuria, No Hematuria Musculoskeletal : No joint pain, No Myalgias Skin : No rash Neuro : No Weakness, No Numbness, No Headache Psych : No anxiety, depression All other systems reviewed and are negative [facility] Past Medical History Attestation statement: The following information was validated with the patient. Source: old records reviewed Medical History Acute pain of right shoulder Chronic low back pain without sciatica Hepatitis C Cocaine abuse Opioid dependence Finger lesion Chronic anemia Migraine Routine medical exam Lung mass Suicidal ideation Polysubstance abuse Chronic back pain BPH (benign prostatic hyperplasia) Nicotine dependence Cannabis use disorder, moderate, dependence Cocaine use disorder Pulmonary nodules Emphysema of lung Anxiety Depression Asthma Surgical History Hx of cholecystectomy Social History Social History Household Members: None Housing: Apartment Do you presently have visiting nurse or other home services: No Alcohol intake: current Alcohol intake frequency: former alcohol drinker Alcohol type: beer Patient Tobacco Use Status: Current everyday Tobacco user Tobacco use type: Cigarette Cigarettes Per Day: 2 Years Smoked: many years Smoked in Last 30 Days: Yes e-Cigarette/Vaping Use: Never Used Second Hand Smoke Exposure: No Use of substances other than those prescribed or required for medical reasons: No Substance Use Type: Crack/Cocaine and Marijuana Advance Directives: Yes Advance Directives on File: Yes Advance Directives Date on File: 01/18/23 service: No Current occupational status: unemployed Current occupation: right hand dominant Sexual orientation: Straight/Heterosexual Physical Exam Vital Signs: Vital Signs: Last Vital Signs Temp 97.7 F 05/09/25 08:57 Pulse 95 05/09/25 09:08 Resp 18 05/09/25 09:08 BP 127/80 05/09/25 08:57 Pulse Ox 90 L 05/09/25 08:57 O2 Del Method Room Air 05/09/25 08:57 BMI result Body Mass Index 25.5 Appearance: Alert. Oriented X3. No acute distress. Flat affect Eyes: Pupils equal, round and reactive to light. ENT: Pharynx normal. Neck: Normal inspection. Neck supple. CVS: Normal heart rate and rhythm. Pulses normal. Respiratory: No respiratory distress. Breath sounds diminished throughout 89% on RA but not labored Abdomen: Soft and nontender. Skin: Skin warm and dry. Normal skin color. Normal skin turgor. Extremities: No lower extremity edema. No calf ttp Neuro: Oriented X 3. No motor deficit. No sensory deficit. CN2-12 intact Course Course Course Narrative: CXR abnormal infection suspected 05/09/25 936am lactic acid, cultures, IV abx started for pneumonia JOSELYN Medications Administered Generic Name Dose Route Start Last Admin Trade Name Freq PRN Reason Stop Dose Admin Doxycycline Hyclate 100 mg/ 250 mls @ 166.67 mls/hr 05/09/25 09:34 05/09/25 10:31 Sodium Chloride IV 05/09/25 11:03 166.67 mls/hr ONCE ONE Administration Discontinued Medications Generic Name Dose Route Start Last Admin Trade Name Freq PRN Reason Stop Dose Admin Levalbuterol HCl 1.25 mg/ 0 mg 05/09/25 09:04 05/09/25 09:07 Ipratropium [place] 0.5 mg INHALE 05/09/25 09:05 1 dose ONCE ONE Administration Magnesium Sulfate 2 gm in 50 mls @ 150 mls/hr 05/09/25 09:07 05/09/25 10:01 Magnesium Sulfate/H2o IV 05/09/25 09:26 Infused ONCE ONE Infusion Ceftriaxone Sodium 1 gm/ 50 mls @ 100 mls/hr 05/09/25 09:34 05/09/25 10:31 Sodium Chloride IV 05/09/25 10:03 Infused ONCE ONE Infusion Methylprednisolone Sodium Succinate 60 mg 05/09/25 08:53 05/09/25 09:24 Methylprednisolone Sod Succ 125 Mg/2 Ml Vial IVPUSH 05/09/25 08:54 60 mg ONCE ONE Administration Medical Decision Making Medical Decision Making MDM Narrative: 60 yo male with substance abuse, arthritis, ETOH abuse, COPD not on home O2 or current meds as he states they do not help, daily smoker, depression now here with wheezing atypical chest pain and 89% on RA - at this time he states he didn't take his COPD meds as they do not help. I am going to obtain labs, trop x 1, EKG, CXR, start on neb and IV steroids/magnesium. He has no signs of DVT to suggest VTE. His COPD exacerbation is due to viral infection and chronic lung disease not bacterial infection or sepsis Differential Diagnosis Differential Diagnoses: The differential diagnosis associated with the presentation includes COPD, chest wall pain, atypical chest pain, low susp ACS, no signs of DVT no risk factors doubt VTE Admission/Observation Consideration of admission/observation: Escalation of care including admission/observation considered admit for hypoxia and CAP/COPD Consult Healthcare Provider Management of the patient was discussed with: Hospitalist (will admit) Lab Data MDM Lab Attestation statement: I reviewed the patient's lab results. 05/09/25 09:17 05/09/25 09:17 Labs: Lab Results 05/09/25 05/09/25 05/09/25 Range/Units 09:17 09:24 09:58 WBC 7.7 (4.8-10.8) X10*3/uL RBC 4.08 L (4.60-5.80) X10*6/uL Hgb 11.7 L (14.0-18.0) g/dl Hct 36.1 L (42.0-52.0) % MCV 88.5 (80.0-98.0) fL MCH 28.7 (27.0-33.0) pg MCHC 32.4 (31.0-36.0) g/dl RDW 13.9 (11.0-16.0) % Plt Count 282 (160-400) X10*3/uL MPV 8.1 L (9.4-12.4) fL Immature Gran % (Auto) 0.5 H (0.0-0.4) % Neut % (Auto) 72.1 (45-73) % Lymph % (Auto) 18.3 L (20-40) % Glynn % (Auto) 6.1 (2-11) % Eos % (Auto) 2.7 (0-4) % Baso % (Auto) 0.3 (0-2) % Lymph # (Auto) 1.4 (1.2-4.9) X10*3/uL Glynn # (Auto) 0.5 (0.1-1.2) X10*3/uL Eos # (Auto) 0.2 (0.0-0.4) X10*3/uL Baso # (Auto) 0.0 (0.0-0.2) X10*3/uL Abs Immat Gran (auto) 0.04 H (0.00-0.03) X10*3/uL Absolute Neuts (auto) 5.5 (2.0-8.3) x10*3/uL Absolute Nucleated RBC 0.000 (0.0-0.012) X10*3/uL Nucleated RBC % (auto) 0.0 (0.0-0.2) /100WBC VBG pH 7.38 (7.32-7.43) VBG pCO2 57 mmHg VBG pO2 46 mmHg VBG HCO3 34 H (22-26) mmol/L VBG O2 Saturation 80.0 % VBG Base Excess 7.6 mmol/L Sodium 141 (135-145) mmol/L Potassium 4.3 (3.3-5.1) mmol/L Chloride 104 (96-108) mmol/L Carbon Dioxide 29 (22-29) mmol/L Anion Gap 12 (12-20) BUN 13 (9-16) mg/dL Creatinine 1.06 (0.5-1.4) mg/dL Estim Creat Clear Calc 60.5 Estimated GFR > 60 Random Glucose 145 H (60-115) mg/dL Lactic Acid 0.7 (0.5-2.0) mmol/L Calcium 9.2 (8.4-10.2) mg/dL Magnesium 2.3 (1.6-2.6) mg/dL Total Bilirubin 0.2 (0.0-1.0) mg/dL Direct Bilirubin < 0.2 (0.0-0.5) mg/dL AST 27 (5-37) U/L ALT 42 H (0-40) U/L Alkaline Phosphatase 90 (39-117) U/L Troponin I High Sens < 2.7 (<3.5-35.0) ng/L NT-Pro-B Natriuret Pep 30.7 (<300) pg/mL Total Protein 7.0 (6.5-8.0) g/dL Albumin 4.1 (3.5-5.0) g/dL COVID-19 (ALENA) Negative (Negative) COVID-19 Clin Com See Note Influenza Type A (RASHAD) Negative (Negative) Influenza Type B (RASHAD) Negative (Negative) Influenza A & B Note See Note Independent Interpretation I performed an independent interpretation of an: EKG and Plain X-Ray (RML consolidation) Interpretation: Rate: 95 Rhythm: NSR [place]: left Normal P waves. Normal STEFFEN. RBBB ST T wave : inverted t waves V1 + V2, aVL, no CADEN qTC: 475 prior studies: no change from prior The study has been interpreted contemporaneously by me. . Radiology Impression Discussion of test interpretation with radiology: I have reviewed the radiologist's reading. Discharge Plan Discharge Clinical Impression: Acute exacerbation of chronic obstructive pulmonary disease, Hypoxia CAP (community acquired pneumonia) Qualifiers: Laterality: right Lung location: middle lobe of lung Qualified Code(s): J18.9 - Pneumonia, unspecified organism Patient Disposition: Admitted As Inpatient Print Language: Kiswahili
[2025-05-09] MEDS: levalbuterol HCL 1.25 MG, Ipratropium Bromide 0.5 MG INHALE (09:07)
[2025-05-09 09:23] LABS: MANUAL DIFF FLAG NO
[2025-05-09] MEDS: Magnesium Sulfate/H2O 2 GM/50 ML PIGGYBACK IV (09:24)
[2025-05-09 09:27] LABS: VBG HCO3 34 mmol/L (22-26); VBG O2 % Saturation 80.0 %
[2025-05-09 09:27] LABS: Hematocrit 36.1 % (42.0-52.0); Hemoglobin 11.7 g/dl (14.0-18.0); Imm Gran Abs Auto 0.04 X10*3/uL (0.00-0.03); Imm Gran Pct Auto 0.5 % (0.0-0.4); Lymphocytes Absolute Auto 1.4 X10*3/uL (1.2-4.9); Mean Corpuscular HGB Conc 32.4 g/dl (31.0-36.0); Mean Corpuscular Hemoglobin 28.7 pg (27.0-33.0); Mean Corpuscular Volume 88.5 fL (80.0-98.0); NRBC Abs Auto 0.000 X10*3/uL (0.0-0.012); NRBC Pct Auto 0.0 /100WBC (0.0-0.2); Platelet Count 282 X10*3/uL (160-400); Red Blood Count 4.08 X10*6/uL (4.60-5.80); White Blood Count 7.7 X10*3/uL (4.8-10.8)
--- NOTE | 2025-05-09 09:28 | PC.NURSE ---
PAtient presents to ED c/o chest pain PMH COPD, ETOH No home O2 Daily smoker 89% RA Patient reports home meds arent helping Blood collected and sent VSS CXR taken results pending Plan of care on going
[2025-05-09 09:31] LABS: Venous Blood Gas Refer to POC result
[2025-05-09 09:40] LABS: Alanine Aminotransferase 42 U/L (0-40); Albumin Level 4.1 g/dL (3.5-5.0); Alkaline Phosphatase 90 U/L (39-117); Anion Gap 12 (12-20); Aspartate Amino Transferase 27 U/L (5-37); Blood Urea Nitrogen 13 mg/dL (9-16); Calcium 9.2 mg/dL (8.4-10.2); Carbon Dioxide 29 mmol/L (22-29); Chloride 104 mmol/L (96-108); Creatinine Clr Calc Pharmacy 60.5; Estimated Glomerular Filt Rate > 60; Magnesium 2.3 mg/dL (1.6-2.6); Potassium 4.3 mmol/L (3.3-5.1); Sodium 141 mmol/L (135-145); Total Protein 7.0 g/dL (6.5-8.0)
[2025-05-09 09:44] LABS: COVID-19 Test Negative (Negative); IDNOW Serial# 58CA691E
[2025-05-09 09:47] LABS: IDNOW Serial# 55D5AD1C; Influenza B2 Negative (Negative)
[2025-05-09 09:50] LABS: Troponin-I High Sensitivity < 2.7 ng/L (<3.5-35.0)
--- OUTSIDE RECORDS SUMMARY | 2025-05-09 09:56 | XMS_ITS | Encounter Summary ---
Author Organization [employer] Address 75 [facility] 7t [place] [address] Care Team Providers Care Podiatric Assistant Name Role Phone Vince Lockhart MD Primary Care Provide r Osiel Mendez PharmD Unavailable [phone] Reason for Visit * Reason Comments Med Refill Encounter Details Date Type Department Care Team (Late st Contact Info) Description 03/03/2023 Refill [facility] MEDICINE [address] [place] [address] Vince Lockhart MD [address] [place], [place] [phone] Depressive disorder; Difficulty sleeping Social History Tobacco [...] Care Team (Late st Contact Info) Description 05/28/2025 9:00 AM EST Office Visit [facility] MEDICINE [address] [place] [address] Alexander Jones MD [address] [place] [address] 07/04/2025 9:30 AM EST Office Visit [facility] ADULT DENTAL [address] [place] [address] Tracey Bowervendra, DDS [address] [place] [address] 07/24/2025 10:00 AM EST Office Visit [facility] OPTOMETRY [address] [place] [address] Tory Garcia, OD [address] [place] [address] documented as of this encounter Goals Goal [...] documented as of this encounter Care Teams Podiatric Assistant Relationship Specialty Start Date End Date Vince Lockhart MD [address] [place] [address] PCP - General Internal Medicine 04/10/14 Osiel Mendez PharmD [address] [place] [address] Pharmacist Internal Medicine 12/19/22 06/11/23 [facility] 12/29/23 documented as of this encounter
--- OUTSIDE RECORDS SUMMARY | 2025-05-09 09:56 | XMS_ITS | Encounter Summary ---
Author Organization [employer] Address 75 [facility] 7t [place] [address] Care Team Providers Care Extruder Operator Multiple Name Role Phone Vince Lockhart MD Primary Care Provide r Osiel Mendez PharmD Unavailable [phone] Reason for Visit * Reason Onset Date Comments Medication Question 03/21/2023 Encounter Details Date Type Department Care Team ([facility] st Contact Info) Description 03/21/2023 Telephone [facility] MEDICINE [address] [place], [place] [phone] Vince Lockhart MD [address] [place], [place] [phone] Medication Question Social History Tobacco Use Types [...] PM EDT Telephone call placed to Adriana ([facility]). Explained that we are not prescribing controlled [...] 12:46 PM EDT Tc from Adriana at [facility] calling in regards to message above. States pt is planning on going to hospital due to lack of pain control. Please contact adriana at [phone] * Telephone Encounter - Chioma Frank - 03/21/2023 12:28 PM EDT Tc from Adriana at [facility] requesting a call back, in regards to medication tramadol 50 mg. documented in this encounter Plan of Treatment Upcoming Encounters Date Type Department Care Team (Late st Contact Info) Description 05/28/2025 9:00 AM EST Office Visit [facility] MEDICINE [address] [place] [phone] Alexander Jones MD [address] [place] [address] 07/04/2025 9:30 AM EST Office Visit [facility] ADULT DENTAL [address] [place] [address] CheliNils, DDS [address] [place] [address] 07/24/2025 10:00 AM EST Office Visit [facility] OPTOMETRY [address] [place] [address] DerekaustynTory, OD [address] [place] [address] documented as of this encounter Goals Goal Patient Goal Type Associated Problems Recent Progress Patient-Stated? Author Patient will adhere to medication regimen General Improving( 4:15 PM EDT) Osiel Vargas PharmD Note: Difficulty with taking medications daily due to no desire documented as of this encounter Visit Diagnoses Not on filedocumented in this encounter Additional Health Concerns Assessment Noted Time PHQ-9 Depression Total Score: 8 12/17/19 23 1:48 PM EDT documented as of this encounter Care Teams Extruder Operator Multiple Relationship Specialty Start Date End Date Vince Lockhart MD [address] [place] [address] PCP - General Internal Medicine 04/10/14 Osiel Mendez PharmD [address] [place] [address] Pharmacist Internal Medicine 12/19/22 06/11/23 [facility] 12/29/23 documented as of this encounter
--- OUTSIDE RECORDS SUMMARY | 2025-05-09 09:56 | XMS_ITS | Encounter Summary ---
Author Organization [employer] Address [address] [facility] 7t [place] [address] Care Team Providers Care Foreign Banknote Teller Trader Name Role Phone Vince Lockhart MD Primary Care Provide r Osiel Mendez PharmD Unavailable [phone] Reason for Visit * Reason Comments Med Refill Encounter Details Date Type Department Care Team (Late st Contact Info) Description 03/07/2023 Refill [facility] MEDICINE [address] [place] [address] Vince Lockhart MD [address] [place] [address] Difficulty sleeping Social History Tobacco Use Types [...] Description 05/28/2025 9:00 AM EST Office Visit [facility] MEDICINE [address] [place] [address] Alexander Jones MD [address] [place] [address] 07/04/2025 9:30 AM EST Office Visit [facility] ADULT DENTAL [address] [place] [address] Cheli Nils, DDS [address] [place] [address] 07/24/2025 10:00 AM EST Office Visit [facility] OPTOMETRY [address] [place] [address] Tory Garcia, OD [address] [place] [address] documented as of this encounter Goals Goal [...] documented as of this encounter Care Teams Foreign Banknote Teller Trader Relationship Specialty Start Date End Date Vince Lockhart MD [address] [place] [address] PCP - General Internal Medicine 04/10/14 Osiel Mendez, Castro [address] [place] [address] Pharmacist Internal Medicine 12/19/22 06/11/23 [facility] 12/29/23 documented as of this encounter
--- OUTSIDE RECORDS SUMMARY | 2025-05-09 09:56 | XMS_ITS | Encounter Summary ---
Author Organization [employer] Address 75 [facility] 7t [place] [address] Care Team Providers Care Gospel Worker Name Role Phone Vince Lockhart MD Primary Care Provide r Reason for Visit * Reason Onset Date Comments PT-1 08/28/2024 Encounter Details Date Type Department Care Team ([facility] st Contact Info) Description 08/28/2024 Telephone [facility] MEDICINE [address] [place], [place] [phone] Vince Lockhart MD [address] [place], [place] [phone] PT-1 Social History Tobacco Use Types Packs/Day [...] Y/N: Yes Provider name or facility name: [facility] Facility Address: [address] [place] [address] Escort needed: Y/N: No Do you have a wheelchair: Y/N: No If yes- Manual or electric: N/A Visits: Once a week documented in this encounter Plan of Treatment Upcoming Encounters Date Type Department Care Team (Late st Contact Info) Description 05/28/2025 9:00 AM EST Office Visit [facility] MEDICINE [address] [place] [address] Alexander Jones MD [address] [place] [address] 07/04/2025 9:30 AM EST Office Visit [facility] ADULT DENTAL [address] [place] [address] Nils Bower DDS [address] [place] [address] 07/24/2025 10:00 AM EST Office Visit [facility] OPTOMETRY [address] [place], [place] [phone] Tory Garcia, OD [address] [place] [address] documented as of this encounter Goals Goal [...] documented as of this encounter Care Teams Gospel Worker Relationship Specialty Start Date End Date Vince Lockhart MD [address] [place] [address] PCP - General Internal Medicine 04/10/14 [facility] 12/29/23 documented as of this encounter
--- OUTSIDE RECORDS SUMMARY | 2025-05-09 09:56 | XMS_ITS | Encounter Summary ---
Author Organization [employer] Address [address] [facility] 7t [place] [address] Care Team Providers Care Poultry Offal Worker Name Role Phone Vince Lockhart MD Primary Care Provide r Reason for Visit * Reason Comments Med Refill Encounter Details Date Type Department Care Team ([facility] st Contact Info) Description 11/27/2023 Refill [facility] MEDICINE [address] [place], [place] [phone] Vince Lockhart MD [address] [place], [place] [phone] Social History Tobacco Use Types Packs/Day Years [...] Description 05/28/2025 9:00 AM EST Office Visit [facility] MEDICINE [address] [place] [address] Alexander Jones MD [address] [place] [address] 07/04/2025 9:30 AM EST Office Visit [facility] ADULT DENTAL [address] [place] [address] Nils Bower DDS [address] [place] [address] 07/24/2025 10:00 AM EST Office Visit [facility] OPTOMETRY [address] [place] [address] Tory Garcia, OD [address] [place] [address] documented as of this encounter Goals Goal [...] documented as of this encounter Care Teams Poultry Offal Worker Relationship Specialty Start Date End Date Vince Lockhart MD [address] [place] [address] PCP - General Internal Medicine 04/10/14 [facility] 12/29/23 documented as of this encounter
--- OUTSIDE RECORDS SUMMARY | 2025-05-09 09:56 | XMS_ITS | Encounter Summary ---
Author Organization [employer] Address [address] [facility] [address] [place] [address] Care Team Providers Care Fish Warden Name Role Phone Vince Lockhart MD Primary Care Provide r Encounter Details Date Type Department Care Team (Late st Contact Info) Description 05/09/2025 Orders Only GENERIC EXTERNAL DATA DEPARTMENT Provider, Generic External Data Social History Tobacco Use Types Packs/Day Years Used Date Smoking Tobacco: Some Days Cigarettes Passive Smoke Exposure: Current Smokeless Tobacco: Never Alcohol Use Standard Drinks/Week Comments Not Currently 0 (1 standard drink = 0.6 oz pure alcohol) 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 Depression Answer Date Recorded Patient Health Questionnaire-9 Score 16 04/22/2025 Patient Health Questionnaire-9 Score 16 04/22/2025 Last PHQ-9: Questionnaire Data Not on file [...] Answer Date Recorded Patient Health Questionnaire-2 Score 4 04/22/2025 Internet Access Answer Date Recorded Internet Access [...] Description 05/28/2025 9:00 AM EST Office Visit [facility] MEDICINE [address] [place] [address] Alexander Jones MD 230 [place] [address] 07/04/2025 9:30 AM EST Office Visit [facility] ADULT DENTAL [address] [place] [address] Nils Bower DDS [address] [place] [address] 07/24/2025 10:00 AM EST Office Visit [facility] OPTOMETRY [address] [place] [address] Tory Garcia OD [address] [place] [address] Pending Results Name Type Priority Associated Diagnoses Date /Time High Sensitivity Troponin I Lab Routine 05/09/2025 9:17 AM EDT documented as of this encounter Goals Goal [...] 025 4:15 PM EDT) Georgina Cameron RN documented as of this encounter Procedures Procedure Name Priority Date/Time Associated Diagnosis Comments VENOUS BLOOD GAS Routine 05/09/2025 9:24 AM EDT INFLUENZA A B2 ID NOW (ALEMAN) Routine 05/09/2025 9:17 AM EDT COVID-19 ID NOW (ALEMAN) Routine 05/09/2025 9:17 AM EDT HIGH SENSITIVITY TROPONIN I Routine 05/09/2025 9:17 AM EDT CBC WITH AUTO DIFFERENTIAL Routine 05/09/2025 9:17 AM EDT MAGNESIUM Routine 05/09/2025 9:17 AM EDT HEPATIC FUNCTION PANEL Routine 05/09/2025 9:17 AM EDT BASIC METABOLIC PANEL Routine 05/09/2025 9:17 AM EDT XR CHEST 1 VIEW Routine 05/09/2025 9:16 AM EDT documented in this encounter Results * (ABNORMAL) VENOUS BLOOD GAS (05/09/2025 9:24 AM EDT) VBG pH 7.38 7.32 - 7.43 [facility] Comment:METER #: [id number] additional_comment: Cb hottenc VBG PCO2 57 mmHg [facility] Comment:METER #: [id number] additional_comment: Cb hottenc VBG PO2 46 mmHg [facility] Comment:METER #: [id number] additional_comment: Cb hottenc VBG Base Excess 7.6 mmol/L [facility] Comment:METER #: [id number] additional_comment: Cb hottenc VBG HCO3 34(H) 22 - 26 mmol/L [facility] Comment:METER #: [id number] additional_comment: Cb hottenc O2 Sat, Flaco 80.0 % [facility] Comment:METER #: [id number] additional_comment: Cb [facility] 05/09/2025 9:24 AM EDT 05/09/2025 9:27 AM EDT Generic External Data Provider LAB BLOOD ORDERAB LES Final Result Performing Organization Address [facility]/ZIP Co de Phone Number [facility] [address] [place] [address] [phone] * Influenza A B2 ID NOW (Aleman) (05/09/2025 9:17 AM EDT) IDNOW SERIAL# [id number] [facility] Influenza A Negative Negative [facility] Influenza B2 Negative Negative [facility] Influenza A B2 Note See Note [facility] Comment:The Aleman ID NOW In fluenza A B2 test is used for thequalitative detection of influenza A and B from patientswith signs and symptoms of respiratory infection.Negative results do not preclude influenza virus infectionand should not be used as the sole basis for diagnosis,treatment or other patient management decisions.There is a risk of false negative results due to thepresence of variants in the viral targets of the assay, lowlevels of virus in the specimen and co- infection withRespiratory Syncytial Virus. 05/09/2025 9:17 AM EDT 05/09/2025 9:26 AM EDT us Generic External Data Provider LAB MICROBIOLOGY - GENERAL ORDERABLES Final Result Performing Organization Address [facility]/ZIP Co de Phone Number [facility] [address] [place] [address] [phone] * COVID-19 ID NOW (ALEMAN) (05/09/2025 9:17 AM EDT) IDNOW SERIAL# [id number] [facility] COVID-19 TEST Negative Negative [facility] COVID-19 NOTE See Note [facility] Comment: Results are for the identification of SARS-CoV2 RNA. TheSARS-CoV2 RNA is generally detectable in respiratory samplesduring the acute phase of infection. Positive results areindicative of the presence of SARS-CoV-2 RNA; clinicalcorrelation with patient history and other diagnosticinformation is necessary to determine patient infectionstatus. Positive results do not rule out bacterial infectionor co- infection with other viruses.Testing facilities within the [facility] and itsterritories are required to report all positive results tothe appropriate public health authorities.Negative results should be treated as presumptive and, ifinconsistent with clinical signs and symptoms or necessaryfor patient management, should be tested with differentauthorized or cleared molecular tests. Negative results donot preclude SARS-CoV2 RNA infection and should not be usedas the sole basis for patient management decisions. Negativeresults should be considered in the context of a patient'srecent exposures, history and the presence of clinical signsand symptoms consistent with COVID-19.This test has been authorized by the FDA under an EmergencyUse Authorization (EUA) for use by authorized laboratories.Testing performed on the [employer] NOW utilizing NAAT. 05/09/2025 9:17 AM EDT 05/09/2025 9:26 AM EDT Generic External Data Provider LAB MOLECULAR AMADOU GNOSTICS ORDERABLES Final Result Performing Organization Address [facility]/ZIP Co de Phone Number [facility] [address] [place] [phone] * Magnesium (05/09/2025 9:17 AM EDT) Magnesium 2.3 1.6 - 2.6 mg/dL [facility] 05/09/2025 9:17 AM EDT 05/09/2025 9:22 AM EDT us Generic External Data Provider LAB BLOOD ORDERAB LES Final Result Performing Organization Address [facility]/ZIP Co de Phone Number [facility] [address] [place] [address] [phone] * (ABNORMAL) Basic Metabolic Panel (05/09/2025 9:17 AM EDT) Sodium 141 135 - 145 mmol/L [facility] Potassium 4.3 3.3 - 5.1 mmol/L [facility] Chloride 104 96 - 108 mmol/L [facility] Carbon Dioxide 29 22 - 29 mmol/L [facility] Anion Gap 12 12 - 20 [facility] Urea Nitrogen (BUN) 13 9 - 16 mg/dL [facility] Creatinine, Serum 1.06 0.5 - 1.4 mg/dL [facility] Creatinine Clr Calc Pharmacy 60.5 [facility] Comment:eGFR (calculated fro m the MDRD study equation) and eCrCl(calculated from the Cockcroft-Gault equation) are based ondifferent parameters and may not yield comparable results.If eCrCl result is absurd, please check patient'sheight/weight. Estimated Glomerular Filt Rate >60 [facility] Comment:Chronic Kidney Disea se: Estimated GFR < 60 mL/min/[id number] Kidney Disease: Estimated GFR < 15 mL/min/1.73m2 Glucose 145(H) 60 - 115 mg/dL [facility] Calcium 9.2 8.4 - 10.2 mg/dL [facility] 05/09/2025 9:17 AM EDT 05/09/2025 9:22 AM EDT us Generic External Data Provider LAB BLOOD ORDERAB LES Final Result [facility] [address] [place] [address] [phone] * (ABNORMAL) Hepatic Function Panel (05/09/2025 9:17 AM EDT) Bilirubin, Total 0.2 0.0 - 1.0 mg/dL [facility] Bilirubin, Direct <0.2 0.0 - 0.5 mg/dL [facility] Aspartate Amino Transferase 27 5 - 37 U/L [facility] Alanine Aminotransferase 42(H) 0 - 40 U/L [facility] Total Protein 7.0 6.5 - 8.0 g/dL [facility] Albumin Level 4.1 3.5 - 5.0 g/dL [facility] Alkaline Phosphatase 90 39 - 117 U/L [facility] 05/09/2025 9:17 AM EDT 05/09/2025 9:22 AM EDT us Generic External Data Provider LAB BLOOD ORDERAB LES Final Result [facility] [address] [place] [address] [phone] * (ABNORMAL) CBC auto differential (05/09/2025 9:17 AM EDT) White Blood Count 7.7 4.8 - 10.8 X10*3/uL [facility] Red Blood Count 4.08(L) 4.60 - 5.80 X10*6/uL [facility] Hemoglobin 11.7(L) 14.0 - 18.0 g/dl [facility] Hematocrit 36.1(L) 42.0 - 52.0 % [facility] Mean Corpuscular Volume 88.5 80.0 - 98.0 fL [facility] Mean Corpuscular Hemoglobin 28.7 27.0 - 33.0 pg [facility] Mean Corpuscular HGB Conc 32.4 31.0 - 36.0 g/dl [facility] Red Cell Distribution Width 13.9 11.0 - 16.0 % [facility] Platelet Count 282 160 - 400 X10*3/uL [facility] Mean Platelet Volume 8.1(L) 9.4 - 12.4 fL [facility] Neutrophils Percent Auto 72.1 45 - 73 % [facility] Imm Gran Pct Auto 0.5(H) 0.0 - 0.4 % [facility] Lymphocytes Percent Auto 18.3(L) 20 - 40 % [facility] Monocytes Percent Auto 6.1 2 - 11 % [facility] Eosinophils Percent Auto 2.7 0 - 4 % [facility] Basophils Percent Auto 0.3 0 - 2 % [facility] NRBC Pct Auto 0.0 0.0 - 0.2 /100WBC [facility] Neutrophils Absolute Auto 5.5 2.0 - 8.3 x10*3/uL [facility] Imm Gran Abs Auto 0.04(H) 0.00 - 0.03 X10*3/uL [facility] Lymphocytes Absolute Auto 1.4 1.2 - 4.9 X10*3/uL [facility] Monocytes Absolute Auto 0.5 0.1 - 1.2 X10*3/uL [facility] Eosinophils Absolute Auto 0.2 0.0 - 0.4 X10*3/uL [facility] Basophils Absolute Auto 0.0 0.0 - 0.2 X10*3/uL [facility] NRBC Abs Auto 0.000 0.0 - 0.012 X10*3/uL [facility] 05/09/2025 9:17 AM EDT 05/09/2025 9:22 AM EDT us Generic External Data Provider LAB BLOOD ORDERAB LES Final Result [facility] [address] [place] [address] [phone] * XR Chest 1 View (05/09/2025 9:16 AM EDT) Anatomical Region Laterality Modality Chest Radiographic Kailee ging 05/09/2025 9:16 AM EDT Narrative 05/09/2025 9:31 AM EDT [address] [address] XRay Report Signed Patient: Augustin Vital MR#: [id number] : 1965 Acct:[id number] Age/Sex: 60 / M ADM Date: 05/09/25 Loc: HO.ED Attending Dr: Ordering Physician: Amanda Spivey DO Date of Service: 05/09/25 Procedure(s): XR chest 1V Accession Number(s): [id number] cc: Amanda Spivey DO; Vince Doran MD Reason for Exam: dyspnea EXAMINATION: XR CHEST 1 VIEW HISTORY: dyspnea COMPARISON: Comparison is made with the prior examination dated 04/23/2025. FINDINGS: A single AP portable view of the chest performed at 9:16 AM is submitted. There is new patchy airspace opacity in the right middle lobe, consistent with pneumonia. The left lung is clear. Again seen is eventration of the left hemidiaphragm. There is no pleural effusion, pneumothorax, or pulmonary vascular congestion. The heart is normal in size. The bones are intact. XR/XR chest 1V IMPRESSION: Right middle lobe pneumonia. Follow-up is recommended to document resolution. Electronically signed by: Hemant Olsen MD 05/09/2025 09:28 AM EDT RP Dictated By: Hemant Olsen MD Signed By: <Electronically signed by Hemant Olsen MD in OV> 05/09/25927 DD/ 5 TD/TT: 05/09/25924 Route Delivery Service Driver: Procedure Note Donotuseinterpreter, Image - 05/09/2025 [place] [address] XRay Report Signed Patient: Loly Vital#: [id number] : 1965Acct:[id number] Age/Sex: 60 / MADM Date: 05/09/25 Loc: HO.ED Attending Dr: Ordering Physician: Amanda Spivey DO Date of Service: 05/09/25 Procedure(s): XR chest 1V Accession Number(s): [id number] cc: Amanda Spivey DO; Vince Doran MD Reason for Exam: dyspnea EXAMINATION: XR CHEST 1 VIEW HISTORY: dyspnea COMPARISON: Comparison is made with the prior examination dated 04/23/2025. FINDINGS: A single AP portable view of the chest performed at 9:16 AM is submitted. There is new patchy airspace opacity in the right middle lobe, consistent with pneumonia. The left lung is clear. Again seen is eventration of the left hemidiaphragm. There is no pleural effusion, pneumothorax, or pulmonary vascular congestion. The heart is normal in size. The bones are intact. XR/XR chest 1V IMPRESSION: Right middle lobe pneumonia. Follow-up is recommended to document resolution. Electronically signed by: Hemant Olsen MD 05/09/2025 09:28 AM EDT RP Dictated By: Hemant Olsen MD Signed By: <Electronically signed by Hemant Olsen MD in OV> 05/09/25927 DD/ 5 TD/TT: 05/09/25924 Route Delivery Service Driver: [facility] External Provider IMG XR PROCEDURES Final Result documented in this encounter Visit Diagnoses Not on filedocumented in this encounter Additional Health Concerns Assessment Noted Time PHQ-9 Depression Total Score: 16 025 9:51 AM EDT documented as of this encounter Care Teams Fish Warden Relationship Specialty Start Date End Date Vince Lockhart MD [address] [place] [address] PCP - General Internal Medicine 04/10/14 [facility] 12/29/23 documented as of this encounter
--- OUTSIDE RECORDS SUMMARY | 2025-05-09 09:56 | XMS_ITS | Encounter Summary ---
Author Organization [employer] Address [address] [facility] 7t [place] [address] Care Team Providers Care Organic Gardening Teacher Name Role Phone Vince Lockhart MD Primary Care Provide r Reason for Visit * Reason Onset Date Comments home services 04/18/2025 Encounter Details Date Type Department Care Team ([facility] st Contact Info) Description 04/18/2025 Telephone [facility] MEDICINE [address] [place], [place] [phone] Vince Lockhart MD [address] [place], [place] [phone] home services Social History Tobacco Use Types Packs/Day Years [...] encounter Miscellaneous Notes * Telephone Encounter - Wero Kwon - 04/18/2025 3:31 PM EDT Tc from Katie at [facility] stating she is going to fax over orders for pt again , has faxed it in February so pt so pt does not loose services needed by 10-6 Contact Katie at [phone] documented in this encounter Plan of Treatment Upcoming Encounters Date Type Department Care Team (Late st Contact Info) Description 05/28/2025 9:00 AM EST Office Visit [facility] MEDICINE [address] [place] [address] Alexander Jones MD [address] [place] [address] 07/04/2025 9:30 AM EST Office Visit [facility] ADULT DENTAL [address] [place] [address] Nils Bower DDS [address] [place] [address] 07/24/2025 10:00 AM EST Office Visit [facility] OPTOMETRY [address] [place], [place] [phone] Tory Garcia, OD [address] [place] [address] documented as of this encounter Goals Goal [...] documented as of this encounter Care Teams Organic Gardening Teacher Relationship Specialty Start Date End Date Vince Lockhart MD [address] [place] [address] PCP - General Internal Medicine 04/10/14 [facility] 12/29/23 documented as of this encounter
--- OUTSIDE RECORDS SUMMARY | 2025-05-09 09:56 | XMS_ITS | Encounter Summary ---
Author Organization [employer] Address [address] [facility] 7t [place] [address] Care Team Providers Care Salesperson [employer] Name Role Phone Vince Lockhart MD Primary Care Provide r Osiel Mendez PharmD Unavailable [phone] Reason for Visit * Reason Onset Date Comments PT1 05/03/2023 Encounter Details Date Type Department Care Team ([facility] st Contact Info) Description 05/03/2023 Telephone [facility] MEDICINE [address] [place], [place] [phone] Vince Lockhart MD [address] [place], [place] [phone] PT1 Social History Tobacco Use Types Packs/Day [...] 05/08 Time: 11:30 am Visits: n/a Address: [address] [place] [address] [facility] Wheel Chair: no Respite Worker Needed: no help desk supervisor location confirmed: [address] [place] [address] documented in this encounter Plan of Treatment Upcoming Encounters Date Type Department Care Team (Late st Contact Info) Description 05/28/2025 9:00 AM EST Office Visit [facility] MEDICINE [address] [place] [address] Alexander Jones MD [address] [place] [address] 07/04/2025 9:30 AM EST Office Visit [facility] ADULT DENTAL [address] [place] [address] CheliNils, DDS [address] [place] [address] 07/24/2025 10:00 AM EST Office Visit [facility] OPTOMETRY [address] [place] [address] DreekaustynTory, OD [address] [place] [address] documented as of this encounter Goals Goal Patient Goal Type Associated Problems Recent Progress Patient-Stated? Author Patient will adhere to medication regimen General Improving( 4:15 PM EDT) Osile Vargas PharmD Note: Difficulty with taking medications daily due to no desire documented as of this encounter Visit Diagnoses Not on filedocumented in this encounter Additional Health Concerns Assessment Noted Time PHQ-9 Depression Total Score: 8 12/17/19 23 1:48 PM EDT documented as of this encounter Care Teams Salesperson [employer] Relationship Specialty Start Date End Date Vince Lockhart MD [address] [place] [address] PCP - General Internal Medicine 04/10/14 Osiel Mendez PharmD [address] [place] [address] Pharmacist Internal Medicine 12/19/22 06/11/23 [facility] 12/29/23 documented as of this encounter
--- OUTSIDE RECORDS SUMMARY | 2025-05-09 09:56 | XMS_ITS | Encounter Summary ---
Author Organization [employer] Address [address] [facility] 7t [place] [address] Care Team Providers Care Real Estate Office Manager Name Role Phone Vince Lockhart MD Primary Care Provide r Reason for Visit * Reason Comments Med Refill Encounter Details Date Type Department Care Team ([facility] st Contact Info) Description 09/21/2023 Refill [facility] MEDICINE [address] [place], [place] [phone] Vince Lockhart MD [address] [place], [place] [phone] Hospital discharge follow-up Social History Tobacco Use [...] Description 05/28/2025 9:00 AM EST Office Visit [facility] MEDICINE [address] [place] [address] Alexander Jones MD [address] [place] [address] 07/04/2025 9:30 AM EST Office Visit [facility] ADULT DENTAL [address] [place] [address] Nils Bower DDS [address] [place] [address] 07/24/2025 10:00 AM EST Office Visit [facility] OPTOMETRY [address] [place] [address] Tory Garcia, OD [address] [place] [address] documented as of this encounter Goals Goal [...] documented as of this encounter Care Teams Real Estate Office Manager Relationship Specialty Start Date End Date Vince Lockhart MD [address] [place] [address] PCP - General Internal Medicine 04/10/14 [facility] 12/29/23 documented as of this encounter
--- OUTSIDE RECORDS SUMMARY | 2025-05-09 09:56 | XMS_ITS | Encounter Summary ---
Author Organization [employer] Address 75 [facility] 7t [place] [address] Care Team Providers Care Railways Assistant Name Role Phone Vince Lockhart MD Primary Care Provide r Osiel Mendez PharmD Unavailable [phone] Reason for Visit * Reason Comments Med Refill Encounter Details Date Type Department Care Team (Late st Contact Info) Description 03/14/2023 Refill [facility] MEDICINE [address] [place], [place] [phone] Vince Lockhart MD [address] [place] [address] Pulmonary emphysema, unspecified emphysema type (CMS/HCC) Social [...] Description 05/28/2025 9:00 AM EST Office Visit [facility] MEDICINE [address] [place] [address] Alexander Jones MD 230 [facility] [place] [address] 07/04/2025 9:30 AM EST Office Visit [facility] ADULT DENTAL [address] [place] [address] Nils Bower DDS [address] [place] [address] 07/24/2025 10:00 AM EST Office Visit [facility] OPTOMETRY [address] [place] [address] Tory Garcia, OD [address] [place] [address] documented as of this encounter Goals Goal Patient Goal Type Associated Problems Recent Progress Patient-Stated? Author Patient will adhere to medication regimen General Improving( 4:15 PM EDT) No Osiel Mendez, Castro Note: Difficulty with taking medications daily due to no desire documented as of this encounter Visit Diagnoses Diagnosis Pulmonary emphysema, unspecified emphysema type documented in this encounter Additional Health Concerns Assessment Noted Time PHQ-9 Depression Total Score: 8 12/17/19 23 1:48 PM EDT documented as of this encounter Care Teams Railways Assistant Relationship Specialty Start Date End Date Vince Lockhart MD [address] [facility] [place] [address] PCP - General Internal Medicine 04/10/14 Osiel Mendez PharmD [address] [place] [address] [place] [address] Pharmacist Internal Medicine 12/19/22 06/11/23 [facility] 12/29/23 documented as of this encounter
--- OUTSIDE RECORDS SUMMARY | 2025-05-09 09:56 | XMS_ITS | Encounter Summary ---
Author Organization [employer] Address 75 [facility] 7t [place] [address] Care Team Providers Care Supervisor Modern Languages Name Role Phone Vince Lockhart MD Primary Care Provide r Reason for Visit * Reason Comments Med Refill Encounter Details Date Type Department Care Team ([facility] st Contact Info) Description 11/22/2024 Refill [facility] MEDICINE [address] [place], [place] [phone] Alexander Jones MD [address] [place] [address] Uncomplicated opioid dependence (CMS/HCC) Social History Tobacco [...] 9:00 AM EST Office Visit [facility] [address] [place] [address] Alexander Jones MD [address] [place] [address] 07/04/2025 9:30 AM EST Office Visit [facility] ADULT DENTAL [address] [place] [address] Nils Bower DDS [address] [place] [address] 07/24/2025 10:00 AM EST Office Visit [facility] OPTOMETRY [address] [place] [address] Tory Garcia OD [address] [place] [address] documented as of this encounter Goals Goal Patient Goal Type Associated Problems Recent Progress Patient-Stated? Author Patient will adhere to medication regimen General Improving( 4:15 PM EDT) No Osiel Mendez, PharmD Note: Difficulty with taking medications daily due to no desire Increase coping skills to promote long-term recovery and improve ability to perform daily activities General On track( 025 4:15 PM EDT) Georgina Cameron, RN documented as of this encounter Visit Diagnoses Diagnosis Uncomplicated opioid dependence (CMS/HCC) (HCC) documented in this encounter Additional Health Concerns Assessment Noted Time PHQ-9 Depression Total Score: 4 07/02/20 24 10:58 AM EST documented as of this encounter Care Teams Supervisor Modern Languages Relationship Specialty Start Date End Date Vince Lockhart MD [address] [place] [address] PCP - General Internal Medicine 04/10/14 [facility] 12/29/23 documented as of this encounter
--- OUTSIDE RECORDS SUMMARY | 2025-05-09 09:56 | XMS_ITS | Encounter Summary ---
Author Organization [employer] Address [address] [facility] 7t [place] [address] Care Team Providers Care Drafter Geophysical Name Role Phone Vince Lockhart MD Primary Care Provide r Reason for Visit * Reason Onset Date Comments Med Refill 05/06/2025 Encounter Details Date Type Department Care Team (Late st Contact Info) Description 05/06/2025 Refill [facility] MEDICINE 230 [place], [place] [phone] Vince Lockhart MD 230 [place], [place] [phone] Social History Tobacco Use Types Packs/Day Years [...] Telephone Encounter - Sheila Garvin LPN - 05/06/2025 3:16 PM EDT Last seen 04/22/25. * Telephone Encounter - Terra Santamaria - 05/06/2025 3:15 PM EDT TC from pt requesting medication refill. Medications needing refill : - albuterol (Ventolin HFA) 108 (90 Base) MCG/ACT inhaler To be sent to: - [facility] - [place], [place] - [phone] - [place] - [address] documented in this encounter Plan of Treatment Upcoming Encounters Date Type Department Care Team (Late st Contact Info) Description 05/28/2025 9:00 AM EST Office Visit [facility] MEDICINE [address] [place] [address] Alexander Jones MD 230 [place], [place] [phone] 07/04/2025 9:30 AM EST Office Visit [facility] ADULT DENTAL 230 [place] [address] Nils Bower, DDS 230 [place] [address] 07/24/2025 10:00 AM EST Office Visit [facility] OPTOMETRY [address] [place], [place] [phone] TarTory zaman, OD 267 [place] [address] documented as of this encounter Goals Goal [...] Noted Time PHQ-9 Depression Total Score: 16 9:51 AM EDT documented as of this encounter Care Teams Drafter Geophysical Relationship Specialty Start Date End Date Vince Lockhart MD 230 [place] [address] PCP - General Internal Medicine 04/10/14 [facility] 12/29/23 documented as of this encounter
--- OUTSIDE RECORDS SUMMARY | 2025-05-09 09:56 | XMS_ITS | Encounter Summary ---
Author Organization [employer] Address 75 [facility] 7t [place] [address] Care Team Providers Care Clinical Director Name Role Phone Vince Lockhart MD Primary Care Provide r Osiel Mendez PharmD Unavailable [phone] Reason for Visit * Reason Onset Date Comments Nurse Triage 03/21/2023 Encounter Details Date Type Department Care Team ([facility] st Contact Info) Description 03/21/2023 Telephone [facility] MEDICINE 230 [place], [place] [phone] Vince oLckhart MD 230 [place], [place] [phone] Nurse Triage Social History Tobacco Use Types [...] 03/28/23. I do not see Ultram in [employer] med list but there is an older script in [employer] for Tramadol from 2013. I see pt. [...] - 03/21/2023 12:25 PM EDT Tc from [facility] Symptom: Back Pain - Not From Injury Outcome: Schedule an appointment to be seen within 3 days Reason: Caller denied all higher acuity questions The caller accepted this outcome Please call [phone] documented in this encounter Plan of Treatment Upcoming Encounters Date Type Department Care Team (Late st Contact Info) Description 05/28/2025 9:00 AM EST Office Visit [facility] MEDICINE [address] [place] [address] Alexander Jones MD 230 [place] [address] 07/04/2025 9:30 AM EST Office Visit [facility] ADULT DENTAL [address] [place] [address] Nils Bower DDS [address] [place] [address] 07/24/2025 10:00 AM EST Office Visit [facility] OPTOMETRY [address] [place] [address] Tory Garcia, OD 267 [place] [address] documented as of this encounter Goals Goal [...] as of this encounter Care Teams Clinical Director Relationship Specialty Start Date End Date Vince Lockhart MD [address] [place] [address] PCP - General Internal Medicine 04/10/14 Osiel Mendez PharmD [address] [place] [address] Pharmacist Internal Medicine 12/19/22 06/11/23 [facility] 12/29/23 documented as of this encounter
--- OUTSIDE RECORDS SUMMARY | 2025-05-09 09:56 | XMS_ITS | Encounter Summary ---
Author Organization [employer] Address 75 [facility] 7t [place] [address] Care Team Providers Care Mid Teacher Name Role Phone Vince Lockhart MD Primary Care Provide r Osiel Mendez PharmD Unavailable [phone] Reason for Visit * Reason Comments Med Refill Encounter Details Date Type Department Care Team ([facility] st Contact Info) Description 06/02/2023 Refill [facility] MEDICINE 230 [place], [place] [phone] Vince Lockhart MD 230 [place], [place] [phone] Depressive disorder Social History Tobacco Use Types [...] Description 05/28/2025 9:00 AM EST Office Visit [facility] MEDICINE 230 [place] [address] Alexander Jones MD 230 [place] [address] 07/04/2025 9:30 AM EST Office Visit [facility] ADULT DENTAL 230 [place] [address] Nils Bower DDS 230 [place] [address] 07/24/2025 10:00 AM EST Office Visit [facility] OPTOMETRY [address] [place] [address] Tory Garcia OD 267 [place] [address] documented as of this encounter Goals Goal [...] documented as of this encounter Care Teams Mid Teacher Relationship Specialty Start Date End Date Vince Lockhart MD 230 [place] [address] PCP - General Internal Medicine 04/10/14 Osiel Mendez PharmD 230 [place] [address] Pharmacist Internal Medicine 12/19/22 06/11/23 [facility] 12/29/23 documented as of this encounter
--- OUTSIDE RECORDS SUMMARY | 2025-05-09 09:56 | XMS_ITS | Encounter Summary ---
Author Organization [employer] Address [address] [facility] 7t [place] [address] Care Team Providers Care Filling Technician Name Role Phone Vince Lockhart MD Primary Care Provide r Reason for Visit * Reason Comments Med Refill Encounter Details Date Type Department Care Team ([facility] st Contact Info) Description 02/27/2025 Refill [facility] MEDICINE 230 [place], [place] [phone] Vince Lockhart MD 230 [place], [place] [phone] Pulmonary emphysema, unspecified emphysema type (CMS/HCC) Social [...] 9:00 AM EST Office Visit [facility] MEDICINE 230 [place] [address] Alexander Jones MD 230 [place] [address] 07/04/2025 9:30 AM EST Office Visit [facility] ADULT DENTAL 230 [place] [address] Nils Bower DDS 230 [place] [address] 07/24/2025 10:00 AM EST Office Visit [facility] OPTOMETRY 267 [place] [address] Tory Garcia OD 267 [place] [address] documented as of this encounter Goals Goal Patient Goal Type Associated Problems Recent Progress Patient-Stated? Author Patient will adhere to medication regimen General Improving( 4:15 PM EDT) Osiel Vargas, PharmD Note: Difficulty with taking medications daily due to no desire Increase coping skills to promote long-term recovery and improve ability to perform daily activities General On track( 025 4:15 PM EDT) Georgina Cameron, GUERO documented as of this encounter Visit Diagnoses Diagnosis Pulmonary emphysema, unspecified emphysema type documented in this encounter Additional Health Concerns Assessment Noted Time PHQ-9 Depression Total Score: 4 07/02/20 10:58 AM EST documented as of this encounter Care Teams Filling Technician Relationship Specialty Start Date End Date Vince Lockhart MD 230 [place] [address] PCP - General Internal Medicine 04/10/14 [facility] 12/29/23 documented as of this encounter
--- OUTSIDE RECORDS SUMMARY | 2025-05-09 09:56 | XMS_ITS | Encounter Summary ---
Author Organization [employer] Address 75 [facility] 7t [place] [address] Care Team Providers Care Latex Fashions Designer Name Role Phone Vince Lockhart MD Primary Care Provide r Reason for Visit * Reason Comments Med Refill Encounter Details Date Type Department Care Team ([facility] st Contact Info) Description 05/08/2025 Refill [facility] MEDICINE 230 [place], [place] [phone] Vince Lockhart MD 230 [place], [place] [phone] Benign prostatic hyperplasia with nocturia Social History Tobacco Use Types Packs/Day Years [...] Description 05/28/2025 9:00 AM EST Office Visit [facility] MEDICINE 230 [place] [address] Alexander Jones MD 230 [place] [address] 07/04/2025 9:30 AM EST Office Visit [facility] ADULT DENTAL 230 [place] [address] Nils Bower DDS 230 [place] [address] 07/24/2025 10:00 AM EST Office Visit [facility] OPTOMETRY 267 [place] [address] Tory Garcia OD 267 [place] [address] documented as of this encounter Goals Goal [...] as of this encounter Visit Diagnoses Diagnosis Benign prostatic hyperplasia with nocturia documented in this encounter Additional Health Concerns Assessment Noted Time PHQ-9 Depression Total Score: 16 025 9:51 AM EDT documented as of this encounter Care Teams Latex Fashions Designer Relationship Specialty Start Date End Date Vince Lockhart MD [address] [place] [address] PCP - General Internal Medicine 04/10/14 [facility] 12/29/23 documented as of this encounter
--- OUTSIDE RECORDS SUMMARY | 2025-05-09 09:56 | XMS_ITS | Encounter Summary ---
Author Organization [employer] Address 75 [facility] 7t [place] [address] Care Team Providers Care Call Person Name Role Phone Vince Lockhart MD Primary Care Provide r Encounter Details Date Type Department Care Team ([facility] st Contact Info) Description 06/19/2023 Telephone [facility] MEDICINE 230 [place], [place] [phone] Vince Lockhart MD 230 [place], [place] [phone] Social History Tobacco Use Types Packs/Day Years [...] Description 05/28/2025 9:00 AM EST Office Visit [facility] MEDICINE 230 [place] [address] Alexander Jones MD 230 [place] [address] 07/04/2025 9:30 AM EST Office Visit [facility] ADULT DENTAL 230 [place] [address] Nils Bower DDS 230 [place] [address] 07/24/2025 10:00 AM EST Office Visit [facility] OPTOMETRY 267 [place] [address] Tory Garcia, OD 267 [place] [address] documented as of this encounter Goals Goal [...] documented as of this encounter Care Teams Call Person Relationship Specialty Start Date End Date Vnice Lockhart MD 230 [place] [address] PCP - General Internal Medicine 04/10/14 [facility] 12/29/23 documented as of this encounter
--- OUTSIDE RECORDS SUMMARY | 2025-05-09 09:56 | XMS_ITS | Encounter Summary ---
Author Organization [employer] Address [address] [facility] 7t [place] [address] Care Team Providers Care Calliope Player Name Role Phone Vince Lockhart MD Primary Care Provide r Osiel Mendez PharmD Unavailable [phone] Reason for Visit * Reason Onset Date Comments Med Refill 05/16/2023 Encounter Details Date Type Department Care Team ([facility] st Contact Info) Description 05/16/[address] [facility] MEDICINE 230 [place], [place] [phone] Vince Lockhart MD 230 [place], [place] [phone] Med Refill Social History Tobacco Use Types [...] the past 12 months, has t he [employer], gas, oil or water company threatened to [...] than half the days 05/16/2023 2:35 PM EDT Luz Randolph Feeling down, depressed, or hopeless [...] - 05/16/2023 12:54 PM EDT Tc from [facility] requesting med refill on; clonazePAM (KlonoPIN) 0.5 MG tablet documented in this encounter Plan of Treatment Upcoming Encounters Date Type Department Care Team (Late st Contact Info) Description 05/28/2025 9:00 AM EST Office Visit [facility] MEDICINE 230 [place] [address] Alexander Jones MD 230 [place] [address] 07/04/2025 9:30 AM EST Office Visit [facility] ADULT DENTAL 230 [place] [address] Nils Bower DDS 230 [place] [address] 07/24/2025 10:00 AM EST Office Visit [facility] OPTOMETRY 267 [place] [address] Tory Garcia, OD 267 [place] [address] documented as of this encounter Goals Goal [...] documented as of this encounter Care Teams Calliope Player Relationship Specialty Start Date End Date Vince Lockhart MD 230 [place] [address] PCP - General Internal Medicine 04/10/14 Osiel Mendez, PharmD 230 [place] [address] Pharmacist Internal Medicine 12/19/22 06/11/23 [facility] 12/29/23 documented as of this encounter
--- OUTSIDE RECORDS SUMMARY | 2025-05-09 09:56 | XMS_ITS | Encounter Summary ---
Author Organization [employer] Address 75 [facility] 7t [place] [address] Care Team Providers Care Pulp Plant Supervisor Name Role Phone Vince Lockhart MD Primary Care Provide r Reason for Visit * Reason Comments Med Refill Encounter Details Date Type Department Care Team ([facility] st Contact Info) Description 08/21/2024 Refill [facility] MEDICINE 230 [place], [place] [phone] Vince Lockhart MD 230 [place], [place] [phone] Social History Tobacco Use Types Packs/Day Years [...] Description 05/28/2025 9:00 AM EST Office Visit [facility] MEDICINE 230 [place] [address] Alexander Jones MD 230 [place] [address] 07/04/2025 9:30 AM EST Office Visit [facility] ADULT DENTAL 230 [place] [address] Nils Bower DDS 230 [place] [address] 07/24/2025 10:00 AM EST Office Visit [facility] OPTOMETRY 267 [place] [address] Tory Garcia OD 267 [place] [address] documented as of this encounter Goals Goal [...] documented as of this encounter Care Teams Pulp Plant Supervisor Relationship Specialty Start Date End Date Vince Lockhart MD [address] [place] [address] PCP - General Internal Medicine 04/10/14 [facility] 12/29/23 documented as of this encounter
--- OUTSIDE RECORDS SUMMARY | 2025-05-09 09:56 | XMS_ITS | Encounter Summary ---
Author Organization [employer] Address 75 [facility] 7t [place] [address] Care Team Providers Care Shoe Parts Molder Name Role Phone Vince Lockhart MD Primary Care Provide r Reason for Visit * Reason Onset Date Comments Error 10/20/2023 Encounter Details Date Type Department Care Team ([facility] st Contact Info) Description 10/20/2023 Telephone [facility] MEDICINE 230 [place], [place] [phone] Vince Lockhart MD 230 [place], [place] [phone] Error Social History Tobacco Use Types Packs/Day [...] Description 05/28/2025 9:00 AM EST Office Visit [facility] MEDICINE 230 [place] [address] Alexander Jones MD 230 [place] [address] 07/04/2025 9:30 AM EST Office Visit [facility] ADULT DENTAL 230 [place] [address] Nils Bower DDS 230 [place] [address] 07/24/2025 10:00 AM EST Office Visit [facility] OPTOMETRY 267 [place] [address] Tory Garcia, OD 267 [place] [address] documented as of this encounter Goals Goal [...] documented as of this encounter Care Teams Shoe Parts Molder Relationship Specialty Start Date End Date Vince Lockhart MD 230 [place] [address] PCP - General Internal Medicine 04/10/14 [facility] 12/29/23 documented as of this encounter
--- OUTSIDE RECORDS SUMMARY | 2025-05-09 09:56 | XMS_ITS | Encounter Summary ---
Author Organization [employer] Address [address] [facility] [address] 7t [place] [address] Care Team Providers Care Barrel Washer Machine Name Role Phone Vince Lockhart MD Primary Care Provide r Encounter Details Date Type Department Care Team (Late st Contact Info) Description 11/22/2024 Orders Only [facility] MEDICINE 230 [place] [address] Georgina Ann, RN Uncomplicated opioid dependence (CMS/HCC) [...] Description 05/28/2025 9:00 AM EST Office Visit [facility] MEDICINE 230 [place] [address] Alexander Jones MD 230 [place] [address] 07/04/2025 9:30 AM EST Office Visit [facility] ADULT DENTAL 230 [place] [address] Nils Bower DDS 230 [place] [address] 07/24/2025 10:00 AM EST Office Visit [facility] OPTOMETRY 267 [place] [address] Tory Garcia, OD 267 [place] [address] documented as of this encounter Goals Goal [...] documented as of this encounter Care Teams Barrel Washer Machine Relationship Specialty Start Date End Date Vince Lockhart MD [address] [place] [address] PCP - General Internal Medicine 04/10/14 [facility] 12/29/23 documented as of this encounter
--- OUTSIDE RECORDS SUMMARY | 2025-05-09 09:56 | XMS_ITS | Encounter Summary ---
Author Organization [employer] Address 75 [facility] 7t [place] [address] Care Team Providers Care Cut Off Saw Operator Metal Name Role Phone Vince Lockhart MD Primary Care Provide r Reason for Visit * Reason Onset Date Comments appt slip 05/08/2025 Encounter Details Date Type Department Care Team (Late st Contact Info) Description 05/08/2025 Telephone [facility] ADULT DENTAL 230 [place] [address] Nils Bower DDS 230 [place] [address] appt slip Social History Tobacco Use Types Packs/Day Years [...] encounter Miscellaneous Notes * Telephone Encounter - Yamel Greene - 05/08/2025 11:27 AM EDT Patient is requesting appointment slip be mailed to his address for upcoming appts DR documented in this encounter Plan of Treatment Upcoming Encounters Date Type Department Care Team ([facility] st Contact Info) Description 05/28/2025 9:00 AM EST Office Visit [facility] MEDICINE 230 [place] [address] Alexander Jones MD 230 [place] [address] 07/04/2025 9:30 AM EST Office Visit [facility] ADULT DENTAL 230 [place] [address] Nils Bower DDS 230 [place] [address] 07/24/2025 10:00 AM EST Office Visit [facility] OPTOMETRY 267 [place] [address] Tory Garcia, OD [address] [place] [address] documented as of this encounter Goals Goal [...] documented as of this encounter Care Teams Cut Off Saw Operator Metal Relationship Specialty Start Date End Date Vince Lockhart MD [address] [place] [address] PCP - General Internal Medicine 04/10/14 [facility] 12/29/23 documented as of this encounter
--- OUTSIDE RECORDS SUMMARY | 2025-05-09 09:57 | XMS_ITS | Encounter Summary ---
Author Organization [employer] Address 75 [facility] 7t [place] [address] Care Team Providers Care Hand Deicer Element Winder Name Role Phone Vince Lockhart MD Primary Care Provide r Osiel Mendez PharmD Unavailable [phone] Reason for Visit * Reason Comments Med Refill Encounter Details Date Type Department Care Team (Late st Contact Info) Description 10/11/2022 Refill [facility] MEDICINE 230 [place], [place] [phone] Vince Lockhart MD 230 [place], [place] [phone] Depressive disorder Social History Tobacco Use Types [...] Description 05/28/2025 9:00 AM EST Office Visit [facility] MEDICINE 230 [place], [place] [phone] Alexander Jones MD 230 [place] [address] 07/04/2025 9:30 AM EST Office Visit [facility] ADULT DENTAL 230 [place] [address] Nils Bower, DDS 230 [place] [address] 07/24/2025 10:00 AM EST Office Visit [facility] OPTOMETRY 267 [place] [address] Tory Garcia, OD 267 [place] [address] documented as of this encounter Visit Diagnoses Diagnosis Depressive disorder Depressive disorder, not elsewhere classified documented in this encounter Care Teams Hand Deicer Element Winder Relationship Specialty Start Date End Date Vince Lockhart MD [address] [place] [address] PCP - General Internal Medicine 04/10/14 Osiel Mendez PharmD [address] [place] [address] Pharmacist Internal Medicine 12/19/22 06/11/23 [facility] 12/29/23 documented as of this encounter
--- OUTSIDE RECORDS SUMMARY | 2025-05-09 09:57 | XMS_ITS | Encounter Summary ---
Author Organization [employer] Address 75 [facility] 7t [place] [address] Care Team Providers Care Frame Bender Name Role Phone Vince Lockhart MD Primary Care Provide r Osiel Mendez PharmD Unavailable [phone] Reason for Visit * Reason Comments Med Refill Encounter Details Date Type Department Care Team (Late st Contact Info) Description 03/01/2023 Refill [facility] MEDICINE 230 [place], [place] [phone] Vince Lockhart MD 230 [place], [place] [phone] Depressive disorder Social History Tobacco Use Types [...] Pt received a 15d supply 02/25 from [facility] provider documented in this encounter Plan of Treatment Upcoming Encounters Date Type Department Care Team (Late st Contact Info) Description 05/28/2025 9:00 AM EST Office Visit [facility] MEDICINE 230 [place] [address] Alexander Jones MD 230 [place] [address] 07/04/2025 9:30 AM EST Office Visit [facility] ADULT DENTAL 230 [place] [address] Nils Bower DDS 230 [place] [address] 07/24/2025 10:00 AM EST Office Visit [facility] OPTOMETRY [address] [place] [address] TarTory zaman, OD 267 [place] [address] documented as of this encounter Goals Goal [...] documented as of this encounter Care Teams Frame Bender Relationship Specialty Start Date End Date Vince Lockhart MD [address] [place] [address] PCP - General Internal Medicine 04/10/14 Osiel Mendez PharmD [address] [place] [address] Pharmacist Internal Medicine 12/19/22 06/11/23 [facility] 12/29/23 documented as of this encounter
--- OUTSIDE RECORDS SUMMARY | 2025-05-09 09:57 | XMS_ITS | Encounter Summary ---
Author Organization [employer] Address 75 [facility] 7t [place] [address] Care Team Providers Care Weekday Babysitter Name Role Phone Vince Lockhart MD Primary Care Provide r Osiel Mendez PharmD Unavailable [phone] Encounter Details Date Type Department Care Team (Late st Contact Info) Description 01/12/2023 Abstract [facility] MEDICINE 230 [place], [place] [phone] Vince Lockhart MD 230 [place] [address] Social History Tobacco Use Types Packs/Day Years [...] Office Visit [facility] MEDICINE 230 [place] [address] Alexander Jones MD [address] [place] [address] 07/04/2025 9:30 AM EST Office Visit [facility] ADULT DENTAL [address] [place] [address] Nils Bower, DDS 230 [place] [address] 07/24/2025 10:00 AM EST Office Visit [facility] OPTOMETRY 267 [place] [address] Tarka Tory, OD 267 [place] [address] documented as of this encounter Goals Goal [...] documented as of this encounter Care Teams Weekday Babysitter Relationship Specialty Start Date End Date Vince Lockhart MD [address] [place] [address] PCP - General Internal Medicine 04/10/14 Osiel Mendez PharmD [address] [place] [address] Pharmacist Internal Medicine 12/19/22 06/11/23 [facility] 12/29/23 documented as of this encounter
--- OUTSIDE RECORDS SUMMARY | 2025-05-09 09:57 | XMS_ITS | Encounter Summary ---
Author Organization [employer] Address [address] [facility] 7t [place] [address] Care Team Providers Care Seconds Grader Name Role Phone Vince Lockhart MD Primary Care Provide r Osiel Mendez PharmD Unavailable [phone] Encounter Details Date Type Department Care Team ([facility] Contact Info) Description 11/24/2022 Abstract [facility] MEDICINE [address] [place] [phone] Vince Lockhart MD [address] [place] [address] Social History Tobacco Use Types Packs/Day Years [...] Description 05/28/2025 9:00 AM EST Office Visit [facility] MEDICINE [address] [place] [address] [phone] Alexander Jones MD [address] [place] [phone] 07/04/2025 9:30 AM EST Office Visit [facility] ADULT DENTAL [address] [place] [address] Nils Bower, DDS [address] [place] [address] 07/24/2025 10:00 AM EST Office Visit [facility] OPTOMETRY [address] [place] [address] Tory Garcia, OD [address] [place] [address] documented as of this encounter Procedures Procedure Name Priority Date/Time Associated Diagnosis Comments COLONOSCOPY Routine 01/08/2018 documented in this encounter Results * Colonoscopy (01/08/2018) Colonoscopy Normal Normal 01/08/2018 Narrative Yulisa Cochran - 01/08/2018 9:39 AM EDT Recommended 10 year follow up ( per provider notes) Historical Provider [facility] Edited Result - Final documented in this encounter Visit Diagnoses Not on filedocumented in this encounter Care Teams Seconds Grader Relationship Specialty Start Date End Date Vince Lockhart MD [address] [place] [address] PCP - General Internal Medicine 04/10/14 Osiel Mendez PharmD [address] [place] [address] Pharmacist Internal Medicine 12/19/22 06/11/23 [facility] [place] 12/29/23 documented as of this encounter
--- OUTSIDE RECORDS SUMMARY | 2025-05-09 09:57 | XMS_ITS | Encounter Summary ---
Author Organization [employer] Address [address] [facility] 7t [place] [address] Care Team Providers Care Buffer Machine Name Role Phone Vince Lockhart MD Primary Care Provide r Osiel Mendez PharmD Unavailable [phone] Encounter Details Date Type Department Care Team (Late st Contact Info) Description 09/26/2022 Telephone [facility] MEDICINE [address] [place] [phone] Vince Lockhart MD [address] [place] [address] Social History Tobacco Use Types Packs/Day Years [...] Description 05/28/2025 9:00 AM EST Office Visit [facility] MEDICINE [address] [place] [phone] Alexander Jones MD [address] [place] [phone] 07/04/2025 9:30 AM EST Office Visit [facility] ADULT DENTAL [address] [place] [address] Nils Bower DDS [address] [place] [address] 07/24/2025 10:00 AM EST Office Visit [facility] OPTOMETRY [address] [place] [address] Tory Garcia, OD [address] [place] [address] documented as of this encounter Visit Diagnoses Not on filedocumented in this encounter Care Teams Buffer Machine Relationship Specialty Start Date End Date Vince Lockhart MD 230 [place] [address] PCP - General Internal Medicine 04/10/14 Osiel Mendez PharmD 230 [place] [address] Pharmacist Internal Medicine 12/19/22 06/11/23 [facility] 12/29/23 documented as of this encounter
--- OUTSIDE RECORDS SUMMARY | 2025-05-09 09:57 | XMS_ITS | Encounter Summary ---
Author Organization [facility] [employer] Address [address] [facility] 7t [place] [address] Care Team Providers Care Conveyor Line Battery Charger Name Role Phone Vince Lockhart MD Primary Care Provide r Osiel Mendez PharmD Unavailable [phone] Reason for Visit * Reason Onset Date Comments triage 10/03/2022 Encounter Details Date Type Department Care Team ([facility] st Contact Info) Description 10/03/2022 Telephone [facility] MEDICINE [address] [place], [place] [phone] Vince Lockhart MD [address] [place], [place] [phone] triage Social History Tobacco Use Types Packs/Day [...] assisted transportation. [facility] as he has no car and [...] now The caller accepted this outcome speaks equatorial guinean. documented in this encounter Plan of Treatment Upcoming Encounters Date Type Department Care Team (Late st Contact Info) Description 05/28/2025 9:00 AM EST Office Visit [facility] MEDICINE [address] [place] [address] Alexander Jones MD [address] [place] [address] 07/04/2025 9:30 AM EST Office Visit [facility] ADULT DENTAL [address] [place] [address] Nils Bower DDS [address] [place] [address] 07/24/2025 10:00 AM EST Office Visit [facility] OPTOMETRY [address] [place] [address] Tory Garcia, OD [address] [place] [address] documented as of this encounter Visit Diagnoses Not on filedocumented in this encounter Care Teams Conveyor Line Battery Charger Relationship Specialty Start Date End Date Vince Lockhart MD [address] [place] [address] PCP - General Internal Medicine 04/10/14 Osiel Mendez PharmD [address] [place] [address] Pharmacist Internal Medicine 12/19/22 06/11/23 [facility] 12/29/23 documented as of this encounter
--- OUTSIDE RECORDS SUMMARY | 2025-05-09 09:57 | XMS_ITS | Encounter Summary ---
Author Organization [employer] Address [address] [facility] 7t [place] [address] Care Team Providers Care Computer Software Engineer Name Role Phone Vince Lockhart MD Primary Care Provide r Reason for Visit * Reason Onset Date Comments Med Refill 07/13/2023 Encounter Details Date Type Department Care Team ([facility] st Contact Info) Description 07/13/2023 Telephone [facility] MEDICINE [address] [place], [place] [phone] Vince Lockhart MD [address] [place], [place] [phone] Med Refill Social History Tobacco Use Types [...] Garvin LPN - 07/13/2023 12:46 PM EST 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 Ambien last filled on 06/30/23 Qty: [...] [facility] [address] [place] [address] Alexander Jones MD [address] [place] [address] 07/04/2025 9:30 AM EST Office Visit [facility] ADULT DENTAL [address] [place] [address] Nils Bower MARIA G [address] [place] [address] 07/24/2025 10:00 AM EST Office Visit [facility] OPTOMETRY [address] [place], [place] [phone] Tory Garcia, OD [address] [place] [address] documented as of this encounter Goals Goal [...] documented as of this encounter Care Teams Computer Software Engineer Relationship Specialty Start Date End Date Vince Lockhart MD [address] [place] [address] PCP - General Internal Medicine 04/10/14 [facility] 12/29/23 documented as of this encounter
--- OUTSIDE RECORDS SUMMARY | 2025-05-09 09:57 | XMS_ITS | Encounter Summary ---
Author Organization [employer] Address 75 [facility] 7t [place] [address] Care Team Providers Care Tenoner Operator Name Role Phone Vince Lockhart MD Primary Care Provide r Reason for Visit * Reason Onset Date Comments PT-1 07/01/2024 Encounter Details Date Type Department Care Team ([facility] st Contact Info) Description 07/01/2024 Telephone [facility] MEDICINE [address] [place], [place] [phone] Vince Lockhart MD 230 [place], [place] [phone] PT-1 Social History Tobacco Use Types Packs/Day [...] Y/N: Yes Provider name or facility name: [facility] Address: [address] [place] [id number] Escort needed: Y/N: No Do you have a wheelchair: Y/N: No If yes- Manual or electric: N/A Visits: 1 every 3 months documented in this encounter Plan of Treatment Upcoming Encounters Date Type Department Care Team (Late st Contact Info) Description 05/28/2025 9:00 AM EST Office Visit [facility] MEDICINE [address] [place] [address] Alexander Jones MD [address] [place] [address] 07/04/2025 9:30 AM EST Office Visit [facility] ADULT DENTAL [address] [place] [address] Nils Bower, MARIA G [address] [place] [address] 07/24/2025 10:00 AM EST Office Visit [facility] OPTOMETRY [address] [place] [address] Tory Garcia, OD [address] [place] [address] documented as of this encounter Goals Goal [...] documented as of this encounter Care Teams Tenoner Operator Relationship Specialty Start Date End Date Vince Lockhart MD [address] [place] [address] PCP - General Internal Medicine 04/10/14 [facility] 12/29/23 documented as of this encounter
--- OUTSIDE RECORDS SUMMARY | 2025-05-09 09:57 | XMS_ITS | Encounter Summary ---
Author Organization [employer] Address [address] [facility] 7t [place] [address] Care Team Providers Care Maintenance Mechanic Elevators Name Role Phone Vince Lockhart MD Primary Care Provide r Reason for Visit * Reason Comments Med Refill Encounter Details Date Type Department Care Team ([facility] st Contact Info) Description 04/10/[address] [facility] MEDICINE [address] [place], [place] [phone] Felicia Hdz, ANP [address] [place] [address] Social History Tobacco Use Types Packs/Day Years [...] [facility] MEDICINE [address] [place] [address] Alexander Jones MD [address] [place] [address] 07/04/2025 9:30 AM EST Office Visit [facility] ADULT DENTAL [address] [place] [address] Nils Bower DDS [address] [place] [address] 07/24/2025 10:00 AM EST Office Visit [facility] OPTOMETRY [address] [place] [address] Tory Garcia, OD [address] [place] [address] documented as of this encounter Goals Goal [...] documented as of this encounter Care Teams Maintenance Mechanic Elevators Relationship Specialty Start Date End Date Vince Lockhart MD [address] [place] [address] PCP - General Internal Medicine 04/10/14 [facility] [place] 12/29/23 documented as of this encounter
--- OUTSIDE RECORDS SUMMARY | 2025-05-09 09:57 | XMS_ITS | Encounter Summary ---
Author Organization [employer] Address [address] [facility] 7t [place] [address] Care Team Providers Care Machine Driller Name Role Phone Vince Lockhart MD Primary Care Provide r Reason for Visit * Reason Onset Date Comments Created in Error 04/09/2024 Encounter Details Date Type Department Care Team ([facility] st Contact Info) Description 04/09/2024 Telephone [facility] MEDICINE 230 [place], [place] [phone] Vince Lockhart MD [address] [place], [place] [phone] Created in Error Social History Tobacco Use [...] Description 05/28/2025 9:00 AM EST Office Visit [facility] MEDICINE [address] [place] [address] Alexander Jones MD [address] [place] [address] 07/04/2025 9:30 AM EST Office Visit [facility] ADULT DENTAL [address] [place] [address] Nils Bower DDS [address] [place] [address] 07/24/2025 10:00 AM EST Office Visit [facility] OPTOMETRY [address] [place] [address] Tory Garcia, OD [address] [place] [address] documented as of this encounter Goals Goal [...] as of this encounter Care Teams Machine Driller Relationship Specialty Start Date End Date Vince Lockhart MD [address] [place] [address] PCP - General Internal Medicine 04/10/14 [facility] 12/29/23 documented as of this encounter
--- OUTSIDE RECORDS SUMMARY | 2025-05-09 09:57 | XMS_ITS | Encounter Summary ---
Author Organization [employer] Address [address] [facility] 7t [place] [address] Care Team Providers Care Drug Discovery Informatics Specialist Name Role Phone Vince Lcokhart MD Primary Care Provide r Osiel Mendez PharmD Unavailable [phone] Reason for Visit * Reason Comments Med Refill Encounter Details Date Type Department Care Team (Late st Contact Info) Description 10/05/2022 Refill [facility] MEDICINE [address] [place], [place] [phone] Vince Lockhart MD [address] [place], [place] [phone] Depressive disorder Social History Tobacco Use Types [...] Description 05/28/2025 9:00 AM EST Office Visit [facility] MEDICINE [address] [place], [place] [phone] Alexander Jones MD [address] [place] [address] 07/04/2025 9:30 AM EST Office Visit [facility] ADULT DENTAL [address] [place] [address] Nils Bower, DDS [address] [place] [address] 07/24/2025 10:00 AM EST Office Visit [facility] OPTOMETRY [address] [place] [address] Tory Garcia, OD [address] [place] [address] documented as of this encounter Visit Diagnoses Diagnosis Depressive disorder Depressive disorder, not elsewhere classified documented in this encounter Care Teams Drug Discovery Informatics Specialist Relationship Specialty Start Date End Date Vince Lockhart MD [address] [place] [address] PCP - General Internal Medicine 04/10/14 Osiel Mendez PharmD [address] [place] [address] Pharmacist Internal Medicine 12/19/22 06/11/23 [facility] 12/29/23 documented as of this encounter
--- OUTSIDE RECORDS SUMMARY | 2025-05-09 09:57 | XMS_ITS | Encounter Summary ---
Author Organization [employer] Address [address] [facility] 7t [place] [address] Care Team Providers Care Middle School Band Teacher Name Role Phone Vince Lockhart MD Primary Care Provide r Osiel Mendez PharmD Unavailable [phone] Encounter Details Date Type Department Care Team (Late st Contact Info) Description 10/03/2022 Abstract [facility] MEDICINE [address] [place] [phone] Vince Lockhart MD [address] [place] [address] Social History Tobacco Use Types Packs/Day Years [...] Description 05/28/2025 9:00 AM EST Office Visit [facility] MEDICINE [address] [place] [address] [phone] Alexander Jones MD [address] [place] [address] 07/04/2025 9:30 AM EST Office Visit [facility] ADULT DENTAL [address] [place] [address] Nils Bower, DDS [address] [place] [address] 07/24/2025 10:00 AM EST Office Visit [facility] OPTOMETRY [address] [place] [address] Tarka Tory, OD [address] [place] [address] documented as of this encounter Visit Diagnoses Not on filedocumented in this encounter Care Teams Middle School Band Teacher Relationship Specialty Start Date End Date Vince Lockhart MD [address] [place] [address] PCP - General Internal Medicine 04/10/14 Osiel Mendez PharmD [address] [place] [address] Pharmacist Internal Medicine 12/19/22 06/11/23 [facility] 12/29/23 documented as of this encounter
--- OUTSIDE RECORDS SUMMARY | 2025-05-09 09:57 | XMS_ITS | Clinical Summary ---
Author Organization [employer] Address [address] [place] [address] Care Team Providers Care Business Supervisor Name Role Phone Vince Lockhart MD [...] DIRECTED EVERY DAY 1 each 023 Active QUEtiapine (SEROquel) 100 MG tablet [...] 1 tab once 1 tablet 024 Active ferrous sulfate 325 [...] disorder,Bipolar affective disorder, currently depressed, moderate (CMS/HCC) (HCC) TAKE 1 CAPSULE (150 MG) BY MOUTH IN THE MORNING. DO NOT CRUSH OR CHEW. 30 capsule 10 025 2025 Active atorvastatin (Lipitor) 40 MG tabletIndications :Mixed hyperlipidemia TAKE 1 TABLET BY MOUTH AT BEDTIME 30 tablet 4 025 Active baclofen (Lioresal) 10 MG tabletIndications :Cocaine abuse (HCC) TAKE 1 TABLET (10 MG) BY MOUTH [...] day. Do not crush or chew. Active albuterol (Ventolin HFA) 108 (90 Base) MCG/ACT inhalerIndication s:Pulmonary emphysema, unspecified emphysema type INHALE 2 PUFFS BY MOUTH EVERY 4 TO 6 HOURS NEEDED 18 g 025 Active ipratropium-albut tawanda (Duo-Neb) 0.5-2.5 mg/3 mL nebulizer solutionIndicatio ns:Pulmonary emphysema, unspecified emphysema type INHALE 1 AMPULE USING A NEBULIZER THREE TIMES DAILY IN THE MORNING, AT NOON, AND AT BEDTIME NEEDED FOR WHEEZING 180 mL 025 Active Viagra 100 MG tablet TAKE 1 TABLET 1 HOUR BEFORE SEXUAL RELATIONS ONCE DAILY NEEDED. 8 tablet 5 025 Active buprenorphine-nal oxone (Suboxone) 4-1 MG per sublingual filmIndications:U ncomplicated opioid dependence (CMS/HCC) ([facility]) Place 1 Film under the tongue Once per day for 7 days. This is in addition to his 8/2mg BID regimen. Do not start before April 30, 2025. 7 Film 3 025 Active Buprenorphine HCl-Naloxone HCl (Suboxone) 8-2 MG SL filmIndications:U ncomplicated opioid dependence (CMS/HCC) ([facility]) Place 1 Film under the tongue 2 times daily for 7 days. Suboxone 4mg/1mg SL daily added to the 8/2mg BID regimen. Do not start before April 30, 2025. 14 Film 3 025 Active Symbicort 160-4.5 MCG/ACT inhaler INHALE 2 PUFFS BY MOUTH 2 TIMES DAILY FOR 30 DAYS 023 2024 Discontinued(T herapy completed) buprenorphine-nal oxone (Suboxone) 4-1 MG per sublingual filmIndications:U ncomplicated opioid dependence (CMS/HCC) ([facility]) Place 1 Film under the tongue Once per day for 7 days. This is in addition to his 8/2mg BID regimen. Do not start before April 02, 2025. 7 Film 3 025 2024 Discontinued(R eorder (will not trigger notification to Pharmacy)) Buprenorphine HCl-Naloxone HCl (Suboxone) 8-2 MG SL filmIndications:U ncomplicated opioid dependence (CMS/HCC) ([facility]) Place 1 Film under the tongue 2 times daily for 7 days. Suboxone 4mg/1mg SL daily added to the 8/2mg BID regimen. Do not start before April 02, 2025. 14 Film 3 025 2024 Discontinued(R eorder (will not trigger notification to Pharmacy)) Active Problems Patient Care Coordination No te Formatting of this note migh t be different from the original. C3/CM Debra Denise RN, TC #3 Unsuccessful call/Program Graduation Problem Noted Date Diagnosed Date Precordial pain 04/22/2025 Assessment & Plan (04/22/2025 10:27 AM EDT): Pt with multiple CRFs here c/o intermittent chest pain, described as precordial, not associated with any other symptoms Multiple risk factors EKG today: tachycardia HR 94, No acute st t changes Etiology ? Plan: D-dimer, Chest x-ray, Cardiology evaluation for stress test Discussed with him if chest pain presents again to present himself to the nearest ER I asked him to follow up with us in 2 weeks Chronic pain of both knees 01/28/2025 Assessment & Plan (01/28/2025 10:00 AM EDT): Evaluated by [facility] Pain clinic 12/2024 s/p steroid injections Sleep disturbances 07/02/2024 Assessment & Plan (07/02/2024 10:50 AM EST): Sleep study 11/24/2023 negative for sleep Apnea Elevated random blood glucose level 07/02/2024 Assessment & Plan (07/02/2024 10:51 AM EST): Blood glucose elevated 176 on 03/24/2024 Plan: repeat FBG and Hgb A1c Acute pulmonary embolism wit hout acute cor pulmonale (CMS/HCC) 07/02/2024 Assessment & Plan (07/02/2024 12:42 PM EST): Seen in the ER for this 03/24/202403/2024 CT/CT angio chest PE protocol IMPRESSION: 1. Small segmental right upper lobe pulmonary embolus. 2. Masslike area of consolidation right middle lobe. Follow-up is recommended after treatment. 3. Marked emphysema. VTE: positive. Under the care of Dr Gerber Fleshing Machine Operator kathleen greene 04/16/2024 who recommended Apixaban 5 mg po BID x 3 months and follow up with him. Pt reports compliance with it. Repeat CT 06/24/2024 showed: IMPRESSION: 1. No central or segmental pulmonary emboli. 2. Mild centrilobular emphysema. VTE: negative. Acute pain of right shoulder 01/09/2024 Assessment & Plan (01/09/2024 10:15 AM EDT): Seen at our [facility] 01/04/2024 Plain films showed: No [...] PET CT , Pt referred back to [facility] Pulmonology for consideration of lung biopsy he is a patient of Dr. Gerber. While in the Hospital Pt had a repeat Chest CT 11/29/2023 ( [facility] ) that showed: IMPRESSION: 1. Near complete [...] PET CT , Pt referred back to [facility] Pulmonology for consideration of lung biopsy he is a patient of Dr. Gerber. While in the Hospital Pt had a repeat Chest CT 11/29/2023 ( [facility] ) that showed: IMPRESSION: 1. Near complete [...] biopsy was aborted. Pt has appointment with Fleshing Machine Operator Dr. Gerber this Monday at 10:15 AM [...] PET CT Ordered, Pt referred back to [facility] Pulmonology for consideration of lung biopsy he [...] limits Bipolar affective disorder, currently depressed, moderate (CMS/HCC) 07/04/2023 Assessment & Plan (04/22/2025 9:55 AM EDT): Pt here for a follow up He is seeing a psychotherapist and a psychiatrist (Lizette chavez) Previously I called the Pharmacy who confirmed he [...] all of his medications Assessment & Plan (01/28/2025 11:15 AM EDT): [...] Pt tells me has an appointment with [facility] for Behavioral health 09/26/2023 I have agreed [...] Pt tells me has an appointment with [facility] for Behavioral health next week, I have [...] him to harm himself. While in the [facility] he was found to be depressed [...] insomnia Pt apparently has an appointment with [facility] for Behavioral health on Monday, I have [...] 3. Nonobstructing bilateral nephrolithiasis. Will refer to [facility] Pain Clinic Assessment & Plan (10/03/2023 9:51 [...] obtain MRI lumbar spine Will refer to [facility] Pain Clinic Assessment & Plan (08/08/2023 10:32 [...] ma jony depressive disorder with psychotic features ([facility]/HCC) 12/16/2022 Assessment & Plan (01/28/2025 10:06 AM [...] seen by a therapist and psychiatrist at [facility]; awaiting follow-up appointments. defensive secondary coach in place through [facility] as well as attending group on Monday mornings. Patient has information about [facility] and [facility]. At this time Augustin Vital [...] Engage in therapy and psychiatry d. Utilize chemical recovery operator as a support e. May reach out to [facility] for additional support Assessment & Plan (10/03/2022 5:03 PM EDT): Sent to ED/section 12a form filled out. Called ambulance and [facility] ED for soft sign out Benign prostatic hyperplasia with nocturia 10/03 Assessment & Plan (04/22/2025 10:00 AM EDT): Evaluated by Urology Last seen 01/25/2024 Supposed to be on: Flomax 0.8 mg daily as discussed and prescribed by Urology Lab Results Component Value Date PSA 1.58 08/21/2024 Assessment & Plan (03/07/2023 9:55 AM EDT): Evaluated by urology tamsulosin increased to 0.8 daily while in the Hospital Assessment & Plan (10/03/2022 5:03 PM EDT): Refer to urology No evidence of UTI Anxiety attack 10/03/2022 Assessment & Plan (10/03/2022 5:02 PM EDT): Hx MH illness, currently with SI, plan. Unclear current meds, no discharge summary from [place] available. Spoke with [facility] crisis stonework supervisor Jaci And suggested to send to ED, Given high risk, I will section 12 him and call Ambulance for transport. Patient aware of POC Primary hypertension 08/01/2022 Assessment & Plan (04/22/2025 9:53 AM EDT): Patient with Hypertension BP today stable, off meds Most recent electrolytes, Bun and Creatinine done on: Lab Results Component Value Date NA 142 02/01/2025 NA 139 08/21/2024 K 3.6 02/01/2025 K 4.0 08/21/2024 CL 106 02/01/2025 CL 107 08/21/2024 BUN 11 02/01/2025 BUN 12 08/21/2024 CREATININE 1.00 02/01/2025 CREATININE 0.80 08/21/2024 were within normal limits. No longer on Verelan PM 120 mg po at bedtime Plan: continue to monitor Patient advised to adhere to a low sodium diet, encouraged about medication compliance, counseled about weight loss. Assessment & Plan (01/28/2025 10:05 AM EDT): [...] loss. Chronic anemia 08/01/2022 Assessment & Plan (04/22/2025 10:01 AM EDT): Pt with normocytic normochromic anemia, etiology ? chronic disease ? vs other etiologies Iron studies weer abnormal b 12 , folate, retic WNL. SPEP, WNL. Pt was also referred to a planning specialist to r/o hematologic conditions. vs anemia of chronic disease. and to GI to r/o GIB. Pt did nto go to either. compliance is a major problem. Lab Results Component Value Date WBC 7.5 02/01/2025 HGB 12.9 (L) 02/01/2025 HCT 37.5 (L) 02/01/2025 MCV 85.8 02/01/2025 PLT 290 02/01/2025 Assessment & Plan (04/18/2023 11:58 AM EDT): Pt with normocytic normochromic anemia, etiology ? chronic disease ? vs other etiologies Iron studies weer abnormal b 12 , folate, retic WNL. SPEP, WNL. Pt was also referred to a planning specialist to r/o hematologic conditions. vs anemia [...] WNL. Pt was also referred to a planning specialist to r/o hematologic conditions. vs anemia of chronic disease. and to GI to r/o GIB. Pt did nto go to either. compliance is a major problem. Last CBC 06/03/2022 was unchanged. [facility] care 08/01/2022 Assessment & Plan (10/29/2024 10:14 [...] his left index finger. initially evaluated at [facility] for consideration of excision. They recommended pt see a telegraph inspector. he was seen by a local telegraph inspector Dr Ortiz who recommended a plastic surgeon [...] 10:35 AM EDT): He was admitted to [facility] from 11/28-12/14 due to acute metabolic encephalopathy [...] and COPD exacerbation he was transferred to [facility] 12/16/2023 psychiatric siu where he remained until 12/28/2023 His medications were adjusted and once stable he was discharged. Pt today reports he feels good, is back at [facility] and feels much better. No concerns Assessment & Plan (07/04/2023 4:14 PM EST): Here after a recent Hospital admission where he was admitted for depression and underlying Bipolar disorder Assessment & Plan (04/18/2023 11:50 AM EDT): Patient here for a HDF admitted to [facility] from 04/01 until 04/03 presented via EMS for increased SOB. Admitted for COPD exacerbation, started on nebs, steroids, and cough medication. Discharged home on 2 more days of azithromycin, prednisone and codeine/guaifenesin for cough. Patient was then admitted to [facility] from 04/05 until 04/07 with viral URI and COPD exacerbation. Treated with prednisone and azithromycin x 3 days. Given Breo, Spiriva and Duonebs prn. Patient improved and ambulated w/o difficulty. Discharged on 3 more days of prednisone, Spiriva, Symbicort and albuterol. Discharged home to f/u [facility] PCP. Pt was seen by pulmonology [...] HDF, recently admtted and discharged 02/24 from [facility] after he presented with c/o chest and [...] 12 in the ED and admitted to [facility] from 06/21 to 07/08 for severe [...] stay. Patient discharged home to F/U with [facility]. Patient reports feeling b anson since discharge. Using medications prescribed at discharge, and reports he is in need of refills. Patient gets help from nurse to administer medications. Patient reports having F/U with a counselor however reports that appointment is in [place] and reports interest in getting counselor or psych treatment at [facility]. Pulmonary emphysema 06/14/2022 Assessment & Plan (04/22/2025 9:52 AM EDT): Patient is here for a follow up. He is doing well on: consolidate inhaled therapy to Trelegy and albuterol MDI. follows with Dr. Gerber last seen 03/14/2025. Most recent PFTs done 08/30/2019 showed severe [...] PET/CT or biopsy. I referred back to [facility] Pulmonology department since he is a patient of Buzz Barcenas and I ordered a PET-CT but this was not done ( pt was admitted to the Hospital ) Repeat Chest CT 06/24/2024 showed: IMPRESSION: 1. No central or segmental pulmonary emboli. 2. Mild centrilobular emphysema. VTE: negative. Assessment & Plan (01/28/2025 10:02 AM EDT): [...] PET/CT or biopsy. I referred back to [facility] Pulmonology department since he is a patient [...] PET/CT or biopsy. I referred back to [facility] Pulmonology department since he is a patient [...] PET/CT or biopsy. I referred back to [facility] Pulmonology department since he is a patient of Buzz Barcenas and I ordered a PET-CT but this was not done ( pt was admitted to the Hospital ) Repeat Chest CT at [facility] showed: IMPRESSION: 1. Near complete resolution of [...] or biopsy. I have referred back to [facility] Pulmonology department since he is a patient [...] he no showed Recently hospitalized 01/16/2023 at [facility] for COPD exacerbation as well as substance [...] twice, no showed Recently hospitalized 01/16/2023 at [facility] for COPD exacerbation as well as substance [...] [facility] Recent test at [facility] 03/24/2023 was positive for Cocaine Patient was referred for our [facility] Cocaine support group. I had a explained to patient that he is not a good candidate for Narcotics given his Hx of substance abuse and active use of Cocaine Assessment & Plan (03/28/2023 1:01 PM EDT): Previous visit he told me he was not using Recent test at [facility] 03/24/2023 was positive for Cocaine Patient was [...] Plan (02/07/2023 12:55 PM EDT): Admitted to [facility] 01/16/2023 for COPD exacerbation in the setting of ongoing cocaine abuse Pt referred to the [facility] Assessment & Plan (10/03/2022 5:03 PM EDT): Pos Urine tox today. Patient states he hasn't used since hospitalization Mixed hyperlipidemia 05/12/2016 Assessment & Plan (04/22/2025 9:49 AM EDT): Most recent lipid profile from: Lab Results Component Value Date TRIG 65 08/21/2024 CHOL 137 08/21/2024 LDLCHOLCAL 74 08/21/2024 HDL 50 08/21/2024 Within normal limits He is on Atorvastatin Plan: Continue Atorvastatin 40 mg po at bedtime. Repeat Lipid profile advised to try to adhere to a low cholesterol diet, counseled and educated about diet and exercise, Patient encouraged to come up with a personal goal for weight loss. Assessment & Plan (01/28/2025 10:06 AM EDT): [...] NICK (antinuclear antibody) 02/09/2012 Assessment & Plan (04/22/2025 10:01 AM EDT): Hx of positive NICK. Pt was referred back to Rheumatology for input, unfortunately, pt did not go. Seen in the past by [facility]. Last seen 05/15/2014 Assessment & Plan (08/15/2022 12:37 PM EST): [...] EDT): I spoke with pt's VNA from [facility] . Pt is already scheduled to [...] Problem Noted Date Diagnosed Date Resolved Date Pneumonia due to infectious organism 01/09/2024 04/22/2025 Assessment & Plan (01/09/2024 10:18 AM EDT): Pt admitted to [facility] for Acute hypoxic respiratory failure and COPD [...] chest x-ray for resolution We contacted his Fleshing Machine Operator Dr. Gerber. He was given an appointment for this Monday at 10:15 AM I contacted his VNA who will be arranging transportation for him. Obtain Plain x-ray of chest for f/u Pneumonia. Substance-related disorder ([facility]) 11/21/2022 05/30/2023 Assessment & Plan (2023 12:00 PM EDT): [...] disorder with psychotic features without prior episode ([facility]) 01/09/2012 05/30/2023 Assessment & Plan (05/16/2023 3:03 [...] intervention, Augustin agreed. Patient has Psychiatrist at [facility] but his VNA adriana has not been [...] follow up He has a VNA from [facility] . He was supposed to see [...] and others were modified. Previously admitted to [facility] from 06/21 to 07/08 for severe depression with SI and planned to OD on pills. Patient reported his son was murdered and he fell into deep depression, and relapsed to using cocaine daily. Assessment & Plan (03/07/2023 1:41 PM EDT): Patient here for a follow up I spoke with pt's VNA from [facility] . Pt is already scheduled to [...] to miss his appointments Previously admitted to [facility] from 06/21 to 07/08 for severe depression with SI and planned to OD on pills. Patient reported his son was murdered and he fell into deep depression, and relapsed to using cocaine daily. Assessment & Plan (02/07/2023 12:59 PM EDT): Patient here for a follow up Previously admitted to [facility] from 06/21 to 07/08 for severe [...] he was seeing Dr Jeffery Harkins in [place] The recommendation from [facility] [...] tells me has a follow up at [facility] on 08/17/2022 at 1:30 PM was also sectioned 12 in the ED and admitted to [facility] from 06/21 to 07/08 for severe [...] stay. Patient discharged home to F/U with [facility]. Prior to this admission pt told me he was seeing Dr Jeffery Harkins in [place] Prior to his admission he was on [...] organization. Date Type Department Care Team Description 05/09/2025 Orders Only GENERIC EXTERNAL DATA DEPARTMENT Provider, Generic External Data 05/08/2025 Telephone [facility] [address] [place] [address] Nils Bower DDS appt slip 05/08/2025 Refill [facility] [address], [place] [phone] Vince Lockhart MD Benign prostatic hyperplasia with nocturia 05/06/2025 Refill [facility] [address], [place] [phone] Vince Lockhart MD 04/30/2025 9:00 AM EDT Office Visit [facility] [address] [place] [address] Alexander Jones MD Uncomplicated opioid dependence (CMS/HCC) (HCC) (Primary Dx) 04/30/2025 Travel 04/23/2025 9:00 AM EDT Office Visit [facility] [address] [place] [address] Alexander Jones MD Uncomplicated opioid dependence (CMS/HCC) (HCC) (Primary Dx) 04/23/2025 Refill [facility] [address] [place] [address] Georgina Ann RN Uncomplicated opioid dependence (CMS/HCC) (HCC) 04/23/2025 Orders Only GENERIC EXTERNAL DATA DEPARTMENT Provider, Generic External Data 04/23/2025 Travel 04/22/2025 10:00 AM EDT Office Visit [facility] [address] [place] [address] Vince Lockhart MD Primary hypertension (Primary Dx); Benign prostatic hyperplasia with nocturia; Chronic anemia; Positive NICK (antinuclear antibody); Mixed hyperlipidemia; Pulmonary emphysema (HCC); Bipolar affective disorder, currently depressed, moderate (CMS/HCC) (HCC); Precordial pain 04/22/2025 Travel 04/21/2025 Telephone [facility] [address] [place] [address] Vince Lockhart MD chart prep 04/18/2025 Telephone [facility] [address] [place] [address] Vince Lockhart MD home services 04/16/2025 9:00 AM EDT Office Visit [facility] [address] [place] [address] Alexander Jones MD Uncomplicated opioid dependence (CMS/HCC) (HCC) (Primary Dx) 04/16/2025 Travel 04/09/2025 9:00 AM EDT Office Visit [facility] [address] [place] [address] Alexander Jones MD Uncomplicated opioid dependence (CMS/HCC) (Primary Dx) 04/09/2025 Travel 04/03/2025 Refill [facility] [address] [place] [address] Vince Lockhart MD 04/02/2025 9:00 AM EDT Office Visit [facility] [place] [phone] Alexander Jones MD Uncomplicated opioid dependence (CMS/HCC) (Primary Dx) 04/02/2025 Travel 03/26/2025 9:00 AM EDT Office Visit [facility] [place] [address] Alexander Jones MD Uncomplicated opioid dependence (CMS/HCC) (Primary Dx) 03/26/2025 Refill [facility] [place] [address] Georgina Ann RN Uncomplicated opioid dependence (CMS/HCC) 03/26/2025 Travel 03/19/2025 9:00 AM EDT Office Visit [facility] [address] [place] [phone] Alexander Jones MD Uncomplicated opioid dependence (CMS/HCC) (Primary Dx) 03/19/2025 Refill [facility] [place] [address] Georgina Ann RN Uncomplicated opioid dependence (CMS/HCC) 03/19/2025 Travel 03/14/2025 Refill [facility] [address] [place] [phone] Georgina Ann RN Uncomplicated opioid dependence ([facility]/HCC) 03/12/2025 9:00 AM EDT Clinical Support [facility] [address] [place] [phone] Georgina Ann RN Uncomplicated opioid dependence ([facility]/HCC) 03/12/2025 Travel 03/07/2025 Orders Only [facility] [address] [place] [phone] Felicia Hdz ANP 03/07/2025 Refill [facility] [address] [place] [phone] Vince Lockhart MD Pulmonary emphysema, unspecified emphysema type ([facility]/HCC) 03/05/2025 9:00 AM EDT Office Visit [facility] [address] [place] [phone] Alexander Jones MD Uncomplicated opioid dependence (CMS/HCC) (Primary Dx) 03/05/2025 Refill [facility] [address] [place] [address] Georgina Ann, GUERO Uncomplicated opioid dependence ([facility]/HCC) 03/05/2025 Orders Only [facility] [place] [address] Felecia Casey MD Pulmonary emphysema, unspecified emphysema type (CMS/HCC) 03/05/2025 Travel 03/04/2025 Telephone [facility] [address] [place] [phone] Vince Lockhart MD Medication Question 03/03/2025 Refill [facility] [address] [place] [phone] Georgina Ann, GUERO Uncomplicated opioid dependence ([facility]/HCC) 02/27/2025 Refill [facility] [address] [place] [phone] Vince Lockhart MD Pulmonary emphysema, unspecified emphysema type ([facility]/HCC) 02/26/2025 9:00 AM EDT Office Visit [facility] [address] [place] [phone] Alexander Joens MD Uncomplicated opioid dependence ([facility]/HCC) (Primary Dx) 02/26/2025 Travel 02/26/2025 Refill [facility] [place] [address] Liseth Oliveira RN Uncomplicated opioid dependence ([facility]/HCC) 02/25/2025 Telephone [facility] [address] [place] [phone] Vince Lockhart MD Call Back Request 02/20/2025 Refill [facility] [address] [place] [phone] Vince Lockhart MD Pulmonary emphysema, unspecified emphysema type (CMS/HCC) 02/19/2025 9:00 AM EDT Office Visit [address] [address] Alexander Jones MD Uncomplicated opioid dependence (CMS/HCC) (Primary Dx) 02/19/2025 Travel 02/12/2025 9:00 AM EDT Office Visit [facility] [address] [place] [address] [place] [address] Alexander Jones MD Uncomplicated opioid dependence ([facility]/HCC) (Primary Dx) 02/12/2025 Refill [facility] [address] [place] [address] Georgina Ann RN Uncomplicated opioid dependence ([facility]/HCC) 02/12/2025 Travel 02/07/2025 Refill [facility] [address] [place] [address] Georgina Ann RN Uncomplicated opioid dependence ([facility]) from Last 3 Months Immunizations Immunization Administration Dates Next Due Influenza injectable quadriv alent preservative free 05/18/2023,08/23/2022,04/07/2021,07/07,03/16/2019,06/28/2018,05/27/2017 Influenza, IIV3, injectable 06/03/2014, 4 Influenza, Injectable, MDCK, preservative free 04/19/2025 Influenza, Split (incl. ely fied surface antigen) [...] Sign Reading Time Taken Comments Blood Pressure 140/80 04/22/2025 9:50 AM EDT Pulse 92 04/22/2025 9:50 AM EDT Temperature 36.3 C (97.4 F) 04/22/2025 9:50 AM EDT Respiratory Rate 20 04/22/2025 9:50 AM EDT Oxygen Saturation 96% 04/22/2025 9:50 AM EDT Inhaled Oxygen Concentration - - Weight 67.3 kg (148 lb 6.4 oz) 04/22/2025 9:50 A M EDT Height 162.6 cm (5' 4 ) 04/22/2025 9:50 AM EDT Body Mass Index 25.47 04/22/2025 9:50 AM EDT Plan of Treatment Upcoming Encounters Date Type Department Care Team (Late st Contact Info) Description 05/28/2025 9:00 AM EST Office Visit [facility] [address] [place] [address] Alexander Jones MD [address] [place] [address] 07/04/2025 9:30 AM EST Office Visit [facility] ADULT DENTAL [address] [place] [address] Nils Bower DDS [address] [place] [address] 07/24/2025 10:00 AM EST Office Visit [facility] OPTOM[facility]RY [address] [place] [address] Tarka, Tory, OD [address] [place] [address] Health Maintenance Due Date Last Done Comments [...] 1-dose series) 2023 COVID-19 Vaccine ( season) 2025 09/21/2023, 07/08/2021, 09/30/2020 Diabetes: Hemoglobin A1C 08/21/2025 08/21/2024 Depression Monitoring 10/21/2025 04/22/2025, 025 Disability Screening 10/29/2025 10/29/2024 SDOH Screening 10/29/2025 10/29/2024 Tobacco Screening 01/27/2026 01/27/2025 Alcohol/Substance Use Screening 04/22/2026 04/22/2025 Dental X-Ray: Full Mouth 10/26/2026 10/26/2023, 07/18 Colonoscopy 01/09/2028 01/08/2018 Colorectal Cancer Screening 01/09/2028 Lipid Panel 08/21/2029 08/21/2024, 03/01/2021 DTaP/Tdap/Td Vaccines (2 - Td or Tdap) 01/20/2033 01/20/2023, 08/03/2017, 06/05/2015, Additional history exists Zoster Vaccines Completed 02/13/2018, 10/11/2017 Pneumococcal Vaccine: 50+ Years Completed 08/03/2022, 01/06/2014 HIV Screening Completed 08/24/2023, 09/10/2019 Hepatitis C Screening Completed 08/24/2023, 024 Influenza Vaccine Completed 04/19/2025, , 08/23/2022, Additional history exists HIB Vaccines Aged Out No longer eligi [...] track( 025 4:15 PM EDT) No Georgina Ann RN Procedures Procedure Name Priority Date/Time Associated Diagnosis Comments VENOUS BLOOD GAS Routine 05/09/2025 9:24 AM EDT HIGH SENSITIVITY TROPONIN I Routine 05/09/2025 9:17 AM EDT COVID-19 ID NOW (ALEMAN) Routine 05/09/2025 9:17 AM EDT MAGNESIUM Routine 05/09/2025 9:17 AM EDT BASIC METABOLIC PANEL Routine 05/09/2025 9:17 AM EDT HEPATIC FUNCTION PANEL Routine 05/09/2025 9:17 AM EDT CBC WITH AUTO DIFFERENTIAL Routine 05/09/2025 9:17 AM EDT INFLUENZA A B2 ID NOW (ALEMAN) Routine 05/09/2025 9:17 AM EDT XR CHEST 1 VIEW Routine 05/09/2025 9:16 AM EDT POCT MARIA ANTONIA-14 URINE DRUG SCREEN Routine 04/30/2025 9:10 AM EDT Uncomplicated opioid dependence (CMS/HCC) (HCC) XR CHEST 2 VIEWS Routine 04/23/2025 9:40 AM EDT Precordial pain PSA, TOTAL Routine 04/23/2025 9:11 AM EDT CREATININE, SERUM Routine 04/23/2025 9:1 1 AM EDT UREA NITROGEN (BUN) Routine 04/23/2025 9 :11 AM EDT ECG 12-LEAD Routine 04/22/2025 10:28 AM EDT Precordial pain POCT MARIA ANTONIA-14 URINE DRUG SCREEN Routine 04/09/2025 3:55 PM EDT Uncomplicated opioid dependence (CMS/HCC) POCT MARIA ANTONIA-14 URINE DRUG SCREEN Routine 03/19/2025 9:26 AM EDT Uncomplicated opioid dependence (CMS/HCC) POCT MARIA ANTONIA-14 URINE DRUG SCREEN Routine 03/05/2025 9:13 AM EDT Uncomplicated opioid dependence (CMS/HCC) POCT MARIA ANTONIA-14 URINE DRUG SCREEN Routine 02/19/2025 9:07 AM EDT Uncomplicated opioid dependence (CMS/HCC) HEMOGLOBIN [...] Relevant to Health Maintenance Results * (ABNORMAL) VENOUS BLOOD GAS (05/09/2025 9:24 AM EDT) Pathologist [facility] VBG pH 7.38 7.32 - 7.43 [facility] Comment:METER #: [id number] additional_comment: Cb hottenc VBG PCO2 57 mmHg [facility] Comment:METER #: [id number] additional_comment: Cb hottenc VBG PO2 46 mmHg [facility] Comment:METER #: [id number] additional_comment: Cb hottenc VBG Base Excess 7.6 mmol/L [facility] Comment:METER #: [id number] additional_comment: Cb hottenc VBG HCO3 34(H) 22 - 26 mmol/L [facility] Comment:METER #: [id number] additional_comment: Cb hottenc O2 Sat, Flaco 80.0 % [facility] Comment:METER #: [id number] additional_comment: Cb hottenc 05/09/2025 9:24 AM EDT 05/09/2025 9:27 AM EDT us Generic External Data Provider LAB BLOOD ORDERAB LES Final Result [facility] [address] [place] [phone] * Influenza A B2 ID NOW (Aleman) (05/09/2025 9:17 AM EDT) IDNOW SERIAL# [id number] [facility] Influenza A Negative Negative [facility] Influenza B2 Negative Negative [facility] Influenza A B2 Note See Note [facility] Comment:The Aleman ID NOW In fluenza [...] GENERAL ORDERABLES Final Result Performing Organization Address [facility] Co de Phone Number [facility] [address] [place] [phone] * COVID-19 ID NOW (ALEMAN) (05/09/2025 9:17 AM EDT) IDNOW SERIAL# [id number] [facility] COVID-19 TEST Negative Negative [facility] COVID-19 NOTE See Note [facility] Comment: Results are for the identification of SARS-CoV2 RNA. TheSARS-CoV2 RNA is generally detectable in respiratory samplesduring the acute phase of infection. Positive results areindicative of the presence of SARS-CoV-2 RNA; clinicalcorrelation with patient history and other diagnosticinformation is necessary to determine patient infectionstatus. Positive results do not rule out bacterial infectionor co- infection with other viruses.Testing facilities within the [facility] and [facility] are required to report all positive results [...] use by authorized laboratories.Testing performed on the Aleman ID NOW utilizing NAAT. 05/09/2025 9:17 AM EDT 05/09/2025 9:26 AM EDT us Generic External Data Provider LAB MOLECULAR AMADOU GNOSTICS ORDERABLES Final Result Performing Organization Address [facility] Co de Phone Number [facility] [address] [place] [phone] * (ABNORMAL) CBC auto differential (05/09/2025 9:17 AM EDT) White Blood Count 7.7 4.8 - 10.8 X10*3/uL [facility] Red Blood Count 4.08(L) 4.60 - 5.80 X10*6/uL [facility] Hemoglobin 11.7(L) 14.0 - 18.0 g/dl [facility] Hematocrit 36.1(L) 42.0 - 52.0 % [facility] Mean Corpuscular Volume 88.5 80.0 - 98.0 fL [facility] Mean Corpuscular Hemoglobin 28.7 27.0 - 33.0 pg [facility] Mean Corpuscular HGB Conc 32.4 31.0 - 36.0 g/dl [facility] Red Cell Distribution Width 13.9 11.0 - 16.0 % [facility] Platelet Count 282 160 - 400 X10*3/uL [facility] Mean Platelet Volume 8.1(L) 9.4 - 12.4 fL [facility] Neutrophils Percent Auto 72.1 45 - 73 % [facility] Imm Gran Pct Auto 0.5(H) 0.0 - 0.4 % [facility] Lymphocytes Percent Auto 18.3(L) 20 - 40 % [facility] Monocytes Percent Auto 6.1 2 - 11 % [facility] Eosinophils Percent Auto 2.7 0 - 4 % [facility] Basophils Percent Auto 0.3 0 - 2 % [facility] NRBC Pct Auto 0.0 0.0 - 0.2 /100WBC [facility] Neutrophils Absolute Auto 5.5 2.0 - 8.3 x10*3/uL [facility] Imm Gran Abs Auto 0.04(H) 0.00 - 0.03 X10*3/uL [facility] Lymphocytes Absolute Auto 1.4 1.2 - 4.9 X10*3/uL [facility] Monocytes Absolute Auto 0.5 0.1 - 1.2 X10*3/uL [facility] Eosinophils Absolute Auto 0.2 0.0 - 0.4 X10*3/uL [facility] Basophils Absolute Auto 0.0 0.0 - 0.2 X10*3/uL [facility] NRBC Abs Auto 0.000 0.0 - 0.012 X10*3/uL [facility] 05/09/2025 9:17 AM EDT 05/09/2025 9:22 AM EDT Generic External Data Provider LAB BLOOD ORDERAB LES Final Result Performing Organization Address [facility]/ZIP Co de Phone Number [facility] [address] [place] [phone] * Magnesium (05/09/2025 9:17 AM EDT) Pathologist [facility] Magnesium 2.3 1.6 - 2.6 mg/dL [facility] 05/09/2025 9:1 7 AM EDT 05/09/2025 9:22 AM EDT Generic External Data Provider LAB BLOOD ORDERAB LES Final Result Performing Organization Address [facility] Co de Phone Number [facility] [address] [place] [phone] * (ABNORMAL) Hepatic Function Panel (05/09/2025 9:17 AM EDT) Bilirubin, Total 0.2 0.0 - 1.0 mg/dL [facility] Bilirubin, Direct <0.2 0.0 - 0.5 mg/dL [facility] Aspartate Amino Transferase 27 5 - 37 U/L [facility] Alanine Aminotransferase 42(H) 0 - 40 U/L [facility] Total Protein 7.0 6.5 - 8.0 g/dL [facility] Albumin Level 4.1 3.5 - 5.0 g/dL [facility] Alkaline Phosphatase 90 39 - 117 U/L [facility] 05/09/2025 9:17 AM EDT 05/09/2025 9:22 AM EDT us Generic External Data Provider LAB BLOOD ORDERAB LES Final Result Performing Organization Address [facility]/ZIP Co de Phone Number [facility] [address] [place] [phone] * (ABNORMAL) Basic Metabolic Panel (05/09/2025 9:17 AM EDT) Sodium 141 135 - 145 mmol/L [facility] Potassium 4.3 3.3 - 5.1 mmol/L [facility] Chloride 104 96 - 108 mmol/L [facility] Carbon Dioxide 29 22 - 29 mmol/L [facility] Anion Gap 12 12 - 20 [facility] Urea Nitrogen (BUN) 13 9 - 16 mg/dL [facility] Creatinine, Serum 1.06 0.5 - 1.4 mg/dL [facility] Creatinine Clr Calc Pharmacy 60.5 [facility] Comment:eGFR (calculated fro m the MDRD study equation) and eCrCl(calculated from the Cockcroft-Gault equation) are based ondifferent parameters and may not yield comparable results.If eCrCl result is absurd, please check patient'sheight/weight. Estimated Glomerular Filt Rate >60 [facility] Comment:Chronic Kidney Disea se: Estimated GFR < 60 mL/min/1.91r2Sqsbjz Kidney Disease: Estimated GFR < 15 mL/min/1.73m2 Glucose 145(H) 60 - 115 mg/dL [facility] Calcium 9.2 8.4 - 10.2 mg/dL [facility] 05/09/2025 9:17 AM EDT 05/09/2025 9:22 AM EDT us Generic External Data Provider LAB BLOOD ORDERAB LES Final Result Performing Organization Address City/[facility]/ZIP Co de Phone Number [facility] [address] [place] [phone] * XR Chest 1 View (05/09/2025 9:16 AM EDT) Anatomical Region Laterality Modality Chest Radiographic Kailee ging 05/09/2025 9:16 AM EDT Narrative 05/09/2025 9:31 AM EDT [address] [address] XRay Report Signed Patient: Augustin Vital MR#: [id number] : 1965 Acct:[id number] Age/Sex: 60 / M ADM Date: 05/09/25 Loc: HO.ED Attending Dr: Ordering Physician: Amanda Spivey DO Date of Service: 05/09/25 Procedure(s): XR chest 1V Accession Number(s): [id number] cc: Amanda Spivey DO; Vince Doran MD [...] Hemant Olsen MD 05/09/2025 09:28 AM EDT Dictated By: Hemant Olsen MD Signed By: <Electronically signed by Hemant Olsen MD in OV> 05/09/25927 DD/ 5 TD/TT: 05/09/25924 Caseworker Intake: Procedure Note Donotuseinterpreter, Image - 05/09/[address] [address] XRay Report Signed Patient: Loly Vital#: [id number] : 1965Acct:[id number] Age/Sex: 60 / MADM Date: 05/09/25 Loc: HO.ED Attending Dr: Ordering Physician: Amanda Spivey DO Date of Service: 05/09/25 Procedure(s): XR chest 1V Accession Number(s): [id number] cc: Amanda Spivey DO; Vince Doran MD [...] in OV> 05/09/25927 DD/ 5 TD/TT: 05/09/25924 Caseworker Intake: [facility] External Provider IMG XR PROCEDURES Final Result * (ABNORMAL) POCT MARIA ANTONIA-14 Urine Drug Screen (04/30/2025 9:10 AM EDT) Only the most recent of5 resultswithin the time period is included. THC [...] obtained by clean catch procedure / Unknown 04/30/2025 9:10 AM EDT Alexander Jones MD POINT OF CARE TEST ENTER/EDIT OR DERABLES Final Result * XR Chest 2 Views (04/23/2025 9:40 AM EDT) Anatomical Region Laterality Modality Chest Radiographic Kailee ging 04/23/2025 9:40 AM EDT Narrative 04/23/2025 10:09 AM EDT [address] [address] XRay Report Signed Patient: Augustin Vital MR#: [id number] : 1965 Acct:[id number] Age/Sex: 59 / M ADM Date: 04/23/25 Loc: HO.HHCL Attending Dr: Vince Doran MD Ordering Physician: Vince Doran MD Date of Service: 04/23/25 Procedure(s): XR chest 2V Accession Number(s): [id number] cc: Vince Doran MD Reason for Exam: chest pain EXAMINATION: XR CHEST CLINICAL INFORMATION: chest pain COMPARISON: X-ray 02/01/2025 TECHNIQUE: 2 views of the chest were obtained. FINDINGS: The cardiomediastinal silhouette is within normal limits. The lungs are well expanded. There is no focal consolidation, edema, or effusion. No pneumothorax. Redemonstrated left hemidiaphragm Boshdalek's hernia. No acute osseous abnormality. XR/XR chest 2V IMPRESSION: No acute pulmonary process. Electronically signed by: Francisco Jiang MD 04/23/2025 10:06 AM EDT Dictated By: Francisco Jiang MD Signed By: <Electronically signed by Francisco Jiang MD in OV> 04/23/25 1006 DD/ 9 TD/TT: 04/23/2549 Caseworker Intake: LUX Procedure Note Donotuseinterpreter, Image - 04/23/[address] [address] XRay Report Signed Patient: Loly Vital#: [id number] : 1965Acct:[id number] Age/Sex: 59 / MADM Date: 04/23/25 Loc: HO.HHCL Attending Dr: Vince Doran MD Ordering Physician: Vince Doran MD Date of Service: 04/23/25 Procedure(s): XR chest 2V Accession Number(s): [id number] cc: Vince Doran MD Reason for Exam: chest pain EXAMINATION: XR CHEST CLINICAL INFORMATION: chest pain COMPARISON: X-ray 02/01/2025 TECHNIQUE: 2 views of the chest were obtained. FINDINGS: The cardiomediastinal silhouette is within normal limits. The lungs are well expanded. There is no focal consolidation, edema, or effusion. No pneumothorax. Redemonstrated left hemidiaphragm Boshdalek's hernia. No acute osseous abnormality. XR/XR chest 2V IMPRESSION: No acute pulmonary process. Electronically signed by: Francisco Jiang MD 04/23/2025 10:06 AM EDT Dictated By: Francisco Jiang MD Signed By: <Electronically signed by Francisco Jiang MD in OV> 04/23/25 1006 DD/ 9 TD/TT: 04/23/25948 Caseworker Intake: LUX us Vince Avelar MD IMG XR PROCEDURES Fin al Result * Creatinine, Serum (04/23/2025 9:11 AM EDT) Creatinine, Serum 0.85 0.5 - 1.4 mg/dL [facility] Estimated Glomerular Filt Rate >60 [facility] Comment:Chronic Kidney Disea se: Estimated GFR < 60 mL/min/1.81s7Eeahri Kidney Disease: Estimated GFR < 15 mL/min/1.73m2 04/23/2025 9:11 AM EDT 04/23/2025 11:24 AM EDT us Generic External Data Provider LAB BLOOD ORDERAB LES Final Result Performing Organization Address [facility] Co de Phone Number [facility] [address] [place] [phone] * BUN (Blood Urea Nitrogen) (04/23/2025 9:11 AM EDT) Urea Nitrogen (BUN) 11 9 - 16 mg/dL [facility] 04/23/2025 9:11 AM EDT 04/23/2025 11:24 AM EDT us Generic External Data Provider LAB BLOOD ORDERAB LES Final Result Performing Organization Address [facility] de Phone Number [facility] [address] [place] [phone] * PSA,Total (04/23/2025 9:11 AM EDT) Prostate Specific Antigen 2.71 <0.05 - 4.0 ng/mL [facility] Comment:PSA methodology: Shadia Rm i ChemiluminescentMicroparticle Immunoassay (CMIA) 04/23/2025 9:11 AM EDT 04/23/2025 11:27 AM EDT us Generic External Data Provider LAB BLOOD ORDERAB LES Final Result Performing Organization Address [facility] Co de Phone Number [facility] [address] [place] [phone] * ECG 12 lead (04/22/2025 10:28 AM EDT) Narrative Vince Lockhart MD - 04/22/2025 10:28 AM EDT Tachycardia 94 bpm, No acute st t changes Vince Avelar MD ECG ORDERABLES Final Result * Hemoglobin A1c (08/21/2024 9:04 AM EST) Hemoglobin A1c 5.7 <6.0 % [facility] Comment:Hemoglobin A1C Refer ence Range Adults: 4.8 - 6.0 % Non diabetic: < 6.0 % Goal: < 7.0 %Additional Action Suggested: > 8.0 %Note: Hemoglobin A1c results are invalid for patients with abnormal amounts of HbF. Blood transfusions may impact the HbA1c concentration in the patient sample. Estimated Average Glucose 117 mg/dL [facility] Comment:eAG = Estimated ave rage glucose which is %A1C expressed asaverage glucose, using the formula of the B7F-TcmbbmdSskpsuf Glucose study (ADAG), Diabetes Care, Vol.31,#8,2007 Blood Venous blood specimen / Unknown 08/21/2024 9:04 AM EST 08/21/2024 10:51 AM EST Vince Avelar MD LAB BLOOD ORDERABLES Final Result [facility] [address] [place] [phone] * Lipid Panel, Standard (08/21/2024 9:04 AM EST) Triglycerides 65 <150 mg/dL [facility] Comment:Desirable Triglyceri de: less than 150 mg/dLBorderline High Triglyceride 150-199 mg/dLHigh Triglyceride: 200-499 mg/dLVery High Triglyceride: greater than or equal to 5OO mg/dL Cholesterol 137 <200 mg/dL [facility] Comment:Desirable Cholestero l: less than 200 mg/dLBorderline High Cholesterol: 200-239 mg/dLHigh Cholesterol: greater than 239 mg/dL LDL Cholesterol Calculated 74 <100 mg/dL [facility] Comment:Desirable LDL: less than 100 mg/dLNear Optimal/Above Optimal LDL: 110- 129 mg/dLBorderline High LDL: 130-159 mg/dLHigh LDL: 160-189 mg/dLVery High LDL: greater than or equal to 190 mg/dL HDL Cholesterol 50 >40 mg/dL [facility] Comment:Desirable HDL: great er than 40 mg/dL Note: This HDL assay may give artificially low results in patients with liver disease. Blood Venous blood specimen / Unknown 08/21/2024 9:04 AM EST 08/21/2024 10:51 AM EST us Vince Avelar MD LAB BLOOD ORDERABLES Final Result Performing Organization Address [facility]/ZIP Co de Phone Number [facility] [address] [place] [phone] * (ABNORMAL) Hepatitis C Antibody with Reflex to HCV, RNA, Quantitative, Real- Time PCR (08/24/2023 2:22 PM EST) Hepatitis C Antibody Reactive( A) Nonreactive [facility] Comment:Presumptive evidence of antibodies to HCV. Blood Venous blood specimen / Unknown 08/24/2023 2:22 PM EST 08/24/2023 4:01 PM EST us Alexander Jones MD LAB BLOOD ORDERABLES Final Resul t Performing Organization Address [facility] Co de Phone Number [facility] [address] [place] [phone] * HIV-1/2 Antigen and Antibodies, Fourth Generation, with Reflexes (08/24/2023 2:22 PM EST) HIV AB/AG Nonreactive Nonreactive [facility] Comment:HIV-1 p24 Ag and/or HIV-1/HIV-2 Ab not detected.A test result that is nonreactive does not exclude thepossibility of exposure to or infection with HIV-1 and/orHIV-2. Nonreactive results in this assay for individualswith prior exposure to HIV-1 and/or HIV-2 may be due toantigen and antibody levels that are below the limit ofdetection of this assay.The [employer] HIV Ag/Ab Combo assay result andsupplemental assay results should be interpreted inconjunction with the patient's clinical presentation,history and other laboratory results. If the results areinconsistent with clinical evidence, additional testing issuggested to confirm the result. Blood Venous blood specimen / Unknown 08/24/2023 2:22 PM EST 08/24/2023 4:01 PM EST Alexander Jones MD LAB BLOOD ORDERABLES Final Resul t [facility] [address] [place] [phone] * Colonoscopy (01/08/2018) Colonoscopy Normal Normal 01/08/2018 Narrative Yulisa Cochran - 01/08/2018 9:39 AM EDT Recommended 10 year follow up ( per provider notes) Historical Provider HEALTH MAINTENANCE Edited Result - Final from Last 3 Months or Most Recently Relevant to Health Maintenance Insurance * Guarantor: Augustin Vital Account Type Relation to Patient Date of Phone Billing Address Personal/Family Self [address] [place] [address] [phone] [facility] C3 Member Subscriber Plan / Payer (Ef fective 2023-Present) Name:Augustin Vital Relation to Subscriber:Self Name:Augustin Vital Payer ID:Not on file Group ID:Not on file Type:Medicaid Address: [facility] [id number] [place] [address] * Guarantor: Augustin Vital Account Type Relation to Patient Date of Phone Billing Address Dental Self [address] [place] [phone] [facility] [employer] [place] ADULT Member Subscriber Plan / Payer (Ef fective 2023-Present) Name:Augustin Vital Relation to Subscriber:Self Name:Augustin Vital Payer ID:Not on file Group ID:Not on file Type:Not on file Address: [address] [phone] * Guarantor: Augustin Vital Account Type Relation to Patient Date of Phone Billing Address Personal/Family Self [address] [facility] [place] * Guarantor: Augustin Vital Account Type Relation to Patient Date of Phone Billing Address Personal/Family Self [address] [place], [place] * Guarantor: Augustin Vital Account Type Relation to Patient Date of Phone Billing Address Personal/Family Self [address] [place] [address] Care Teams Business Supervisor Relationship Specialty Start Date End Date Vince Lockhart MD [address] [place] [phone] PCP - General Internal Medicine 04/10/14 [facility] 12/29/23
--- OUTSIDE RECORDS SUMMARY | 2025-05-09 09:57 | XMS_ITS | Encounter Summary ---
Author Organization [employer] Address [address] [facility] 7t [place] [address] Care Team Providers Care Foundry Hand Name Role Phone Vince Lockhart MD Primary Care Provide r Osiel Mendez PharmD Unavailable [phone] Encounter Details Date Type Department Care Team ([facility] st Contact Info) Description 03/01/2023 Telephone [facility] [address] [place], [place] [phone] Vince Lockhart MD 230 [place], [place] [phone] Social History Tobacco Use Types Packs/Day Years [...] - 03/01/2023 10:37 AM EDT Tc from [place] with [facility] requesting a call from a nurse in regards to having conflict with another agency. Please contact wilson at [phone] documented in this encounter Plan of Treatment Upcoming Encounters Date Type Department Care Team (Late st Contact Info) Description 05/28/2025 9:00 AM EST Office Visit [facility] [address] [place] [address] Alexander Jones MD [address] [place] [address] 07/04/2025 9:30 AM EST Office Visit [facility] ADULT D[facility] [address] [place] [address] Nils Bower DDS [address] [place] [address] 07/24/2025 10:00 AM EST Office Visit [facility] OPTOM[facility] [address] [place] [address] Tory Garcia, OD [address] [place] [address] documented as of this encounter Goals Goal [...] documented as of this encounter Care Teams Foundry Hand Relationship Specialty Start Date End Date Vince Lockhart MD [address] [place] [address] PCP - General Internal Medicine 04/10/14 Osiel Mendez PharmD [address] [place] [address] Pharmacist Internal Medicine 12/19/22 06/11/23 [facility] 12/29/23 documented as of this encounter
--- OUTSIDE RECORDS SUMMARY | 2025-05-09 09:57 | XMS_ITS | Encounter Summary ---
Author Organization [employer] Address [address] [facility] 7t [place] [address] Care Team Providers Care Meter Reader Inspector Name Role Phone Vince Lockhart MD Primary Care Provide r Osiel Mendez PharmD Unavailable [phone] Reason for Visit * Reason Onset Date Comments REQUEST FOR COMPLEX CASE MANAGER REFERRAL 07/26/2022 I heranndez d regarding the pt's request for a referral for COMPLEX CASE MANAGER services. He needs to state what ADL's he needs assistance with. There was no answer, and I reached a recording stating that the person's mailbox is full. I was unable to leave a msg. Encounter Details Date Type Department Care Team ([facility] st Contact Info) Description 07/26/2022 Telephone [facility] MEDICINE [address] [place] [address] Vince Lockhart MD [address] [place] [address] REQUEST FOR COMPLEX CASE MANAGER REFERRAL (I called regarding the pt's request for a referral for COMPLEX CASE MANAGER services. He needs to state what [...] Description 05/28/2025 9:00 AM EST Office Visit [facility] MEDICINE [address] [place] [address] Alexander Jones MD [address] [place] [address] 07/04/2025 9:30 AM EST Office Visit [facility] ADULT DENTAL [address] [place] [address] Nils Bower, DDS [address] [place] [address] 07/24/2025 10:00 AM EST Office Visit [facility] OPTOMETRY [address] [place] [address] Tory Garcia, OD [address] [place] [address] documented as of this encounter Visit Diagnoses Not on filedocumented in this encounter Care Teams Meter Reader Inspector Relationship Specialty Start Date End Date Vince Lockhart MD [address] [place] [address] PCP - General Internal Medicine 04/10/14 Osiel Mendez PharmD [address] [place] [address] Pharmacist Internal Medicine 12/19/22 06/11/23 [facility] 12/29/23 documented as of this encounter
--- OUTSIDE RECORDS SUMMARY | 2025-05-09 09:57 | XMS_ITS | Encounter Summary ---
Author Organization [email or web address] Address [address] 7[address] [place] [address] Care Team Providers Care Senior Credit Officer Name Role Phone Vince Lockhart MD Primary Care Provide r Osiel Mendez PharmD Unavailable [phone] Reason for Visit * Reason Comments Med Refill Encounter Details Date Type Department Care Team ([facility] st Contact Info) Description 09/09/2022 Telephone [facility] MEDICINE [address] [place], [place] [phone] Vince Lockhart MD [address] [place], [place] [phone] Med Refill Social History Tobacco Use Types [...] PM EST ----- Pt entered care at [facility] 09/15. Out now but not [...] Description 05/28/2025 9:00 AM EST Office Visit [facility] MEDICINE [address] [place] [address] Alexander Jones MD [address] [place] [address] 07/04/2025 9:30 AM EST Office Visit [facility] ADULT DENTAL [address] [place] [address] Nils Bower DDS [address] [place] [address] 07/24/2025 10:00 AM EST Office Visit [facility] OPTOMETRY [address] [place] [address] Tory Garcia OD [address] [place] [address] documented as of this encounter Visit Diagnoses Diagnosis Depressive disorder Depressive disorder, not elsewhere classified Difficulty sleeping Unspecified sleep disturbance documented in this encounter Care Teams Senior Credit Officer Relationship Specialty Start Date End Date Vince Lockhart MD [address] [place] [address] PCP - General Internal Medicine 04/10/14 Osiel Mendez, MayteD [address] [place] [address], [place] [address] Pharmacist Internal Medicine 12/19/22 06/11/23 [facility] 12/29/23 documented as of this encounter
--- OUTSIDE RECORDS SUMMARY | 2025-05-09 09:57 | XMS_ITS | Encounter Summary ---
Author Organization [employer] Address [address] [facility] 7t [place] [address] Care Team Providers Care Embossing Machine Operator Helper Name Role Phone Vince Lockhart MD Primary Care Provide r Reason for Visit * Reason Onset Date Comments Call Back Request 02/25/2025 Encounter Details Date Type Department Care Team ([facility] st Contact Info) Description 02/25/2025 Telephone [facility] MEDICINE [address] [place], [place] [phone] Vince Lockhart MD [address] [place], [place] [phone] Call Back Request Social History Tobacco Use [...] - 02/25/2025 3:01 PM EDT TC from [facility] with [facility] requesting a call back due to questions they have regarding patient. Questions: If patient has decisional capacity? Does the patient have a health care proxy? If yes, who is the proxy? Does the PCP believe patient needs a higher level of care? Does the PCP have any concerns regarding patient? Caller name: [facility] ext [phone]. documented in this encounter Plan of Treatment Upcoming Encounters Date Type Department Care Team (Late st Contact Info) Description 05/28/2025 9:00 AM EST Office Visit [facility] MEDICINE [address] [place] [address] Alexander Jones MD [address] [place] [address] 07/04/2025 9:30 AM EST Office Visit [facility] ADULT DENTAL [address] [place] [address] Nils Bower DDS [address] [place] [address] 07/24/2025 10:00 AM EST Office Visit [facility] OPTOMETRY [address] [place], [place] [phone] Tory Garcia, OD [address] [place], [place] [phone] documented as of this encounter Goals Goal [...] documented as of this encounter Care Teams Embossing Machine Operator Helper Relationship Specialty Start Date End Date Vince Lockhart MD [address] [place] [address] PCP - General Internal Medicine 04/10/14 [facility] 12/29/23 documented as of this encounter
--- OUTSIDE RECORDS SUMMARY | 2025-05-09 09:57 | XMS_ITS | Encounter Summary ---
Author Organization [employer] Address [address] [facility] 7t [place] [address] Care Team Providers Care Control System Manager Name Role Phone Vince Lockhart MD Primary Care Provide r Osiel Mendez PharmD Unavailable [phone] Reason for Visit * Reason Comments Med Refill Encounter Details Date Type Department Care Team (Late st Contact Info) Description 10/07/2022 Refill [facility] MEDICINE [address] [place], [place] [phone] Vince Lockhart MD [address] [place], [place] [phone] Depressive disorder Social History Tobacco Use Types [...] Description 05/28/2025 9:00 AM EST Office Visit [facility] MEDICINE [address] [place], [place] [phone] Alexander Jones MD [address] [place] [address] 07/04/2025 9:30 AM EST Office Visit [facility] ADULT DENTAL [address] [place] [address] Nils Bower, DDS [address] [place] [address] 07/24/2025 10:00 AM EST Office Visit [facility] OPTOMETRY [address] [place] [address] Tory Garcia, OD [address] [place] [address] documented as of this encounter Visit Diagnoses Diagnosis Depressive disorder Depressive disorder, not elsewhere classified documented in this encounter Care Teams Control System Manager Relationship Specialty Start Date End Date Vince Lockhart MD [address] [place] [address] PCP - General Internal Medicine 04/10/14 Osiel Mendez PharmD [address] [place] [address] Pharmacist Internal Medicine 12/19/22 06/11/23 [facility] 12/29/23 documented as of this encounter
--- OUTSIDE RECORDS SUMMARY | 2025-05-09 09:58 | XMS_ITS | Encounter Summary ---
Author Organization [employer] Address [address] [facility] 7t [place] [address] Care Team Providers Care Cosmetic Surgeon Name Role Phone Vince Lockhart MD Primary Care Provide r Reason for Visit * Reason Comments Med Refill Encounter Details Date Type Department Care Team ([facility] st Contact Info) Description 06/26/2023 Refill [facility] MEDICINE [address] [place], [place] [phone] Vince Lockhart MD [address] [place], [place] [phone] Mixed hyperlipidemia Social History Tobacco Use Types [...] Description 05/28/2025 9:00 AM EST Office Visit [facility] MEDICINE [address] [place] [address] Alexander Jones MD [address] [place] [address] 07/04/2025 9:30 AM EST Office Visit [facility] ADULT DENTAL [address] [place] [address] Nils Bower DDS [address] [place] [address] 07/24/2025 10:00 AM EST Office Visit [facility] OPTOMETRY [address] [place] [address] Tory Garcia, OD [address] [place] [address] documented as of this encounter Goals Goal [...] documented as of this encounter Care Teams Cosmetic Surgeon Relationship Specialty Start Date End Date Vince Lockhart MD [address] [place] [address] PCP - General Internal Medicine 04/10/14 [facility] 12/29/23 documented as of this encounter
--- OUTSIDE RECORDS SUMMARY | 2025-05-09 09:58 | XMS_ITS | Clinical Summary ---
Author Organization [facility] ity Address [address] [place] [address] Care Team Providers Care Sales Team Manager Name Role Phone Unavailable Primary Care Provider Unavailabl e Social History Tobacco Use Types Packs/Day Years Used Date Smoking Tobacco: Never Assessed Sex and Gender Information Value Date Recorded Sex Assigned at Not on file Legal Sex Male 11:17 AM EST Gender Identity Not on file Sexual Orientation Not on file Plan of Treatment Health Maintenance Due Date Last Done Comments Colorectal Cancer Screening: Colonoscopy 1963 DTaP,Tdap,and Td Vaccines (1 - Tdap) 1982 Pneumococcal Vaccine: 50+ Ye ars (1 of 1 - PCV) 2013 Zoster Vaccines (1 of 2) 2013 Cholesterol Screening (Lipid Panel) 06/14/2022 HIV Screening 06/14/2022 Hepatitis C Screening 06/14/2022 Social Influencers of Health Screening 06/14/2022 Depression Screening 07/17/2024 COVID-19 Vaccine (1 - 2023-2 5 season) 2025 Influenza Vaccine (#1) 2025 RSV Immunization Adult [...]
--- OUTSIDE RECORDS SUMMARY | 2025-05-09 09:58 | XMS_ITS | Encounter Summary ---
Author Organization [employer] Address [address] [facility] [address] 7t [place] [address] Care Team Providers Care Armored Transport Service Manager Name Role Phone Vince Lockhart MD Primary Care Provide r Reason for Visit * Reason Comments Med Refill Encounter Details Date Type Department Care Team ([facility] st Contact Info) Description 03/18/2024 Refill [facility] MED & PEDS [address] [place], [place] [phone] Yajaira Birmingham MD [address] [place] [address] Depressive disorder Social History Tobacco Use Types [...] Office Visit [facility] MEDICINE [address] [place] [address] Alexander Jones MD [address] [place] [address] 07/04/2025 9:30 AM EST Office Visit [facility] ADULT DENTAL [address] [place] [address] Nils Bower DDS [address] [place] [address] 07/24/2025 10:00 AM EST Office Visit [facility] OPTOMETRY [address] [place] [address] TarTory zaman, OD [address] [place] [address] documented as of this encounter Goals Goal [...] documented as of this encounter Care Teams Armored Transport Service Manager Relationship Specialty Start Date End Date Vince Lockhart MD [address] [place] [address] PCP - General Internal Medicine 04/10/14 [facility] 12/29/23 documented as of this encounter
--- OUTSIDE RECORDS SUMMARY | 2025-05-09 09:58 | XMS_ITS | Encounter Summary ---
Author Organization [employer] Address [address] [facility] 7t [place] [address] Care Team Providers Care Finisher Hand Name Role Phone Vince Lockhart MD Primary Care Provide r Reason for Visit * Reason Comments Med Refill Encounter Details Date Type Department Care Team ([facility] st Contact Info) Description 02/19/2024 Refill [facility] MEDICINE [address] [place], [place] [phone] Vince Lockhart MD 230 [place], [place] [phone] Chronic midline low back pain without sciatica [...] 9:00 AM EST Office Visit [facility] MEDICINE [address] [place] [address] Alexander Jones MD 230 [place] [address] 07/04/2025 9:30 AM EST Office Visit [facility] ADULT DENTAL [address] [place] [address] Nils Bower DDS [address] [place] [address] 07/24/2025 10:00 AM EST Office Visit [facility] OPTOMETRY [address] [place] [address] Tory Garcia, OD [address] [place] [address] documented as of this encounter Goals Goal [...] as of this encounter Care Teams Finisher Hand Relationship Specialty Start Date End Date Vince Lockhart MD 230 [place] [address] PCP - General Internal Medicine 04/10/14 [facility] 12/29/23 documented as of this encounter
--- OUTSIDE RECORDS SUMMARY | 2025-05-09 09:58 | XMS_ITS | Encounter Summary ---
Author Organization [employer] Address [address] [facility] 7t [place] [address] Care Team Providers Care Manager Beverage Name Role Phone Vince Lockhart MD Primary Care Provide r Reason for Visit * Reason Onset Date Comments Nurse Triage 02/28/2024 Encounter Details Date Type Department Care Team ([facility] st Contact Info) Description 02/28/2024 Telephone [facility] MEDICINE [address] [place], [place] [phone] Vince Lockhart MD 230 [place], [place] [phone] Nurse Triage Social History Tobacco Use Types [...] 02/28/2024 1:18 PM EDT Triage call with [facility] Special Education Teacher ID [id number]. Pt reports headache and some dizziness for [...] call. Pt is advised to come to [facility] today and Pt asks if alright to [...] medicine * Telephone Encounter - Ora Camacho Santos - 02/28/2024 11:15 AM EDT Symptoms: Headache, Dizziness Outcome: Schedule an urgent appointment (within 4 hours) or talk to a nurse or provider soon Reason: Getting worse The caller accepted this outcome documented in this encounter Plan of Treatment Upcoming Encounters Date Type Department Care Team (Late st Contact Info) Description 05/28/2025 9:00 AM EST Office Visit [facility] MEDICINE [address] [place] [address] Alexander Jones MD [address] [place] [address] 07/04/2025 9:30 AM EST Office Visit [facility] ADULT DENTAL [address] [place] [address] Nils Bower DDS [address] [place] [address] 07/24/2025 10:00 AM EST Office Visit [facility] OPTOMETRY [address] [place] [address] Tory Garcia, OD [address] [place] [address] documented as of this encounter Goals Goal [...] documented as of this encounter Care Teams Manager Beverage Relationship Specialty Start Date End Date Vince Lockhart MD [address] [place] [address] PCP - General Internal Medicine 04/10/14 [facility] 12/29/23 documented as of this encounter
--- OUTSIDE RECORDS SUMMARY | 2025-05-09 09:58 | XMS_ITS | Encounter Summary ---
Author Organization [employer] Address [address] [facility] 7t [place] [address] Care Team Providers Care Central Sterile Tech Name Role Phone Vince Lockhart MD Primary Care Provide r Reason for Visit * Reason Comments Med Refill Encounter Details Date Type Department Care Team ([facility] st Contact Info) Description 07/04/2023 Refill [facility] MEDICINE 230 [place], [place] [phone] Monse Gonzalez MD [address] [place] [address] Social History Tobacco Use Types Packs/Day Years [...] Description 05/28/2025 9:00 AM EST Office Visit [facility] MEDICINE [address] [place] [address] Alexander Jones MD [address] [place] [address] 07/04/2025 9:30 AM EST Office Visit [facility] ADULT DENTAL [address] [place] [address] Nils Bower DDS [address] [place] [address] 07/24/2025 10:00 AM EST Office Visit [facility] OPTOMETRY [address] [place] [address] Tory Garcia, OD [address] [place] [address] documented as of this encounter Goals Goal [...] documented as of this encounter Care Teams Central Sterile Tech Relationship Specialty Start Date End Date Vince Lockhart MD [address] [place] [address] PCP - General Internal Medicine 04/10/14 [facility] 12/29/23 documented as of this encounter
[2025-05-09 10:38] LABS: NT Pro B Type Natriuretic Pept 30.7 pg/mL (<300)
--- NOTE | 2025-05-09 11:17 | PC.NURSE ---
ambulating pulse oximetry trial compleated, pt noted to drop SpO2 to 90% while on room air, with increased WOB and with expiratory wheezing. Pt helped back into bed- pt SpO2 recovered to 93% on RA.
--- NOTE | 2025-05-09 11:57 | PC.NURSE ---
Patient Sierra Carranza @ bedside wanted to be contacted if any changes Phone number [phone]
[2025-05-09 12:00] LABS: Cannabinoid Screen Urine Not Detected (Not Detect)
--- NOTE | 2025-05-09 12:49 | PM.IMHP ---
History of Present Illness Date of Service: 05/09/25 Chief Complaint: sob 60-year-old male?with a medical history significant for COPD/asthma, opioid dependence managed with buprenorphine/naloxone (Suboxone), GERD on pantoprazole (Protonix), and mental health conditions including anxiety and depression treated with mirtazapine, quetiapine (Seroquel), risperidone, and hydroxyzine.He presented with several days of shortness of breath and cough, and reported running out of albuterol. On arrival, his oxygen saturation was 89% on room air. Chest X-ray revealed a right lower lobe pneumonia. Arterial blood gas was reassuring.In the emergency department, he was treated with bronchodilators, intravenous steroids, ceftriaxone, and azithromycin. His oxygen saturation subsequently improved to 93% on room air. Review of Systems Review of Systems: pleurisy, headache, cough/sob as above PMFSH Medical History Acute pain of right shoulder Chronic low back pain without sciatica Hepatitis C Cocaine abuse Opioid dependence Finger lesion Chronic anemia Migraine Routine medical exam Lung mass Suicidal ideation Polysubstance abuse Chronic back pain BPH (benign prostatic hyperplasia) Nicotine dependence Cannabis use disorder, moderate, dependence Cocaine use disorder Pulmonary nodules Emphysema of lung Anxiety Depression Asthma Surgical History Hx of cholecystectomy Social History Household Members: Spouse Housing: Apartment Do you presently have visiting nurse or other home services: Yes Alcohol intake: current Alcohol intake frequency: former alcohol drinker Alcohol type: beer Patient Tobacco Use Status: Current someday Tobacco user Tobacco use type: Cigarette Cigarettes Per Day: 2 Years Smoked: many years Smoked in Last 30 Days: Yes e-Cigarette/Vaping Use: Never Used Second Hand Smoke Exposure: No Use of substances other than those prescribed or required for medical reasons: No Substance Use Type: Crack/Cocaine and Marijuana Have you been hit, kicked, punched, or otherwise hurt by someone within the past year? If so, by whom?: No Do you feel safe in your current relationship?: Yes Is there a partner from a previous relationship who is making you feel unsafe now?: No Are you made to feel afraid or neglected: No Advance Directives: Yes Advance Directives on File: Yes Advance Directives Date on File: 01/18/23 Do you have a plan to hurt others: No Plan Recently lost weight without trying: No Eating poorly because of decreased appetite: No Nutrition Risks: Dental problems Poor oral hygiene: No service: No Current occupational status: unemployed Current occupation: right hand dominant Sexual orientation: Straight/Heterosexual Meds Allergies Allergy/AdvReac Type Severity Reaction Status Date / Time ibuprofen Allergy Intermediate Stomach Verified 05/09/25 08:43 Upset penicillin V Allergy Intermediate rash Verified 05/09/25 08:43 Active Medications: Current Medications Acetaminophen (Acetaminophen 325 Mg Tablet) 650 mg PO Q6H PRN PRN Reason: Pain, Mild 1-3,fever,headache Al Hydroxide/Mg Hydroxide (Magnesium Hydrox/Alum Hydrox 30 Ml Oral.Susp) 30 ml PO Q4H PRN PRN Reason: Heartburn Albuterol Sulfate (Albuterol Sulfate (0.083%) 2.5 Mg/3 Ml Vial.Neb) 2.5 mg INHALE Q2H PRN PRN Reason: Shortness of Breath/Wheezing Calcium Carbonate (Calcium Carbonate 750 Mg Tab.Chew) 750 mg PO Q4H PRN PRN Reason: Heartburn Enoxaparin Sodium (Enoxaparin Sodium 40 Mg/0.4 Ml Syringe) 40 mg SUBCUT Q24H ADRIEN Magnesium Hydroxide (Milk Of Magnesia 30 Ml Oral.Susp) 30 ml PO DAILY PRN PRN Reason: Constipation Melatonin (Melatonin 3 Mg Tablet) 6 mg PO BEDTIME PRN PRN Reason: Insomnia Methylprednisolone Sodium Succinate (Methylprednisolone Sod Succ 40 Mg/Ml Vial) 40 mg IVPUSH BID ADRIEN Ondansetron HCl (Ondansetron Hcl 4 Mg/2 Ml Vial) 4 mg IVPUSH Q8H PRN PRN Reason: Nausea and Vomiting Polyethylene Glycol (Polyethylene Glycol 3350 17 Gm Powd.Pack) 17 gm PO DAILY PRN PRN Reason: Constipation Sodium Chloride (0.9 % Sodium Chloride Flush 3 Ml Syringe) 3 ml IVFLUSH QSHIFT ADRIEN Home Medications ?Medication ?Instructions ?Recorded ?Confirmed ?Last Taken ?Type ferrous sulfate 325 mg (65 mg 325 mg PO BEDTIME 01/25/24 05/09/25 05/09/25 History iron) tablet,delayed release acetaminophen 500 mg tablet 500 mg PO Q6H PRN Pain 06/24/24 05/09/25 Unknown History mirtazapine 15 mg tablet 15 mg PO BEDTIME 06/24/24 05/09/25 05/08/25 History pantoprazole 40 mg tablet,delayed 40 mg PO DAILY@0630 06/24/24 05/09/25 05/09/25 History release sildenafil 100 mg tablet (Viagra) 100 mg PO DAILY PRN Erectile 06/24/24 05/09/25 Unknown History Dysfunction buprenorphine 4 mg-naloxone 1 mg 1 film sublingual DAILY@1200 11/21/24 05/09/25 05/09/25 History sublingual film (Suboxone) hydroxyzine HCl 25 mg tablet 25 mg PO BID 11/21/24 05/09/25 05/09/25 History risperidone 3 mg tablet 3 mg PO BEDTIME 11/21/24 05/09/25 05/08/25 History buprenorphine 8 mg-naloxone 2 mg 1 film sublingual BID 05/09/25 05/09/25 05/09/25 History sublingual film (Suboxone) clonazepam 0.5 mg tablet 0.5 mg PO TID 05/09/25 05/09/25 05/09/25 History furosemide 20 mg tablet 20 mg PO DAILY 05/09/25 05/09/25 05/09/25 History quetiapine 100 mg tablet 100 mg PO BID 05/09/25 05/09/25 05/09/25 History quetiapine 400 mg tablet 400 mg PO BEDTIME 05/09/25 05/09/25 05/08/25 History risperidone 1 mg tablet 1 mg PO DAILY 05/09/25 05/09/25 05/09/25 History venlafaxine 37.5 mg 37.5 mg PO DAILY 05/09/25 05/09/25 05/09/25 History capsule,extended release 24 hr Physical Exam Vital Signs and Narrative: Vital Signs: Last Vital Signs Temp 97.7 F 05/09/25 08:57 Pulse 87 05/09/25 11:29 Resp 10 L 05/09/25 11:29 BP 132/85 05/09/25 11:29 Pulse Ox 92 05/09/25 11:29 O2 Del Method Room Air 05/09/25 11:29 BMI result Body Mass Index 26.7 Const: Other: General: AO X 3, no acute distress Resp: mod effort, insp wheezes CVS: S1,S2,RRR GI: +BS, NT, no distention Skin: No rash Neuro: motor grossly intact Psych: appropriate affect Results Labs 05/09/25 09:17 05/09/25 09:17 Labs: Laboratory Results - last 24 hr 05/09/25 05/09/25 05/09/25 09:17 09:24 09:58 MCV 88.5 MCH 28.7 MCHC 32.4 RDW 13.9 Plt Count 282 MPV 8.1 L Immature Gran % (Auto) 0.5 H Neut % (Auto) 72.1 Lymph % (Auto) 18.3 L [place] % (Auto) 6.1 Eos % (Auto) 2.7 Baso % (Auto) 0.3 Lymph # (Auto) 1.4 [place] # (Auto) 0.5 Eos # (Auto) 0.2 Baso # (Auto) 0.0 Abs Immat Gran (auto) 0.04 H Absolute Neuts (auto) 5.5 Absolute Nucleated RBC 0.000 Nucleated RBC % (auto) 0.0 VBG pH 7.38 VBG pCO2 57 VBG pO2 46 VBG HCO3 34 H VBG O2 Saturation 80.0 VBG Base Excess 7.6 Anion Gap 12 Estim Creat Clear Calc 60.5 Estimated GFR > 60 Random Glucose 145 H Lactic Acid 0.7 Calcium 9.2 Magnesium 2.3 Total Bilirubin 0.2 Direct Bilirubin < 0.2 AST 27 ALT 42 H Alkaline Phosphatase 90 Troponin I High Sens < 2.7 NT-Pro-B Natriuret Pep 30.7 Total Protein 7.0 Albumin 4.1 Urine Opiates Screen Ur Buprenorphine Scrn Ur Oxycodone Screen Urine Methadone Screen Urine Fentanyl Screen Ur Barbiturates Screen Ur Phencyclidine Scrn Ur Amphetamines Screen U Benzodiazepines Scrn Urine Cocaine Screen U Marijuana (THC) Screen COVID-19 (ALENA) Negative COVID-19 Clin Com See Note Influenza Type A (RASHAD) Negative Influenza Type B (RASHAD) Negative Influenza A & B Note See Note 05/09/25 11:28 MCV MCH MCHC RDW Plt Count MPV Immature Gran % (Auto) Neut % (Auto) Lymph % (Auto) [place] % (Auto) Eos % (Auto) Baso % (Auto) Lymph # (Auto) [place] # (Auto) Eos # (Auto) Baso # (Auto) Abs Immat Gran (auto) Absolute Neuts (auto) Absolute Nucleated RBC Nucleated RBC % (auto) VBG pH VBG pCO2 VBG pO2 VBG HCO3 VBG O2 Saturation VBG Base Excess Anion Gap Estim Creat Clear Calc Estimated GFR Random Glucose Lactic Acid Calcium Magnesium Total Bilirubin Direct Bilirubin AST ALT Alkaline Phosphatase Troponin I High Sens NT-Pro-B Natriuret Pep Total Protein Albumin Urine Opiates Screen Not Detected Ur Buprenorphine Scrn Positive H Ur Oxycodone Screen Not Detected Urine Methadone Screen Not Detected Urine Fentanyl Screen Not Detected Ur Barbiturates Screen Not Detected Ur Phencyclidine Scrn Not Detected Ur Amphetamines Screen Not Detected U Benzodiazepines Scrn Not Detected Urine Cocaine Screen POSITIVE H U Marijuana (THC) Screen Not Detected COVID-19 (ALENA) COVID-19 Clin Com Influenza Type A (RASHAD) Influenza Type B (RASHAD) Influenza A & B Note Imaging Radiologist's Impressions: Impressions Chest X-Ray 05/09/25 09:16 IMPRESSION: Right middle lobe pneumonia. Follow-up is recommended to document resolution. Electronically signed by: Hemant Olsen MD 05/09/2025 09:28 AM EDT RP Assessment and Plan (1) CAP (community acquired pneumonia): Qualifiers: Laterality: right Lung location: middle lobe of lung Qualified Code(s): J18.9 - Pneumonia, unspecified organism Status: Acute (2) COPD (chronic obstructive pulmonary disease): Status: Acute Plan 60/with COPD/asthma here with COPD/Asthma with pneumonia Continue dual antibiotic therapy (ceftriaxone and azithromycin) to complete course of 7 days Continue systemic steroids with appropriate taper at dc Bronchodilators by Neb Monitor oxygen saturation; provide supplemental oxygen if O2 sat < 92%. Encourage pulmonary hygiene. Opioid dependence Continue Suboxone at current dose. Monitor for signs of withdrawal or misuse. GERD Continue Protonix. Mental health Continue current psychiatric medications. Monitor for changes in mood, behavior, or side effects. DVT prophylaxis: lovenox Full code Quality Stroke Does the patient have a stroke diagnosis?: No VTE Prior VTE?: No VTE Risk Level:: Medical - moderate - high VTE Device Contraindication: Treatment Not Indicated VTE Drug Contraindication: N/A - Med Ordered
--- NOTE | 2025-05-09 13:59 | ECG_ITS ---
Test Reason : chest pain Blood Pressure : */* mmHG Vent. Rate : 79 BPM Atrial Rate : 79 BPM P-R Int : 160 ms QRS Dur : 110 ms QT Int : 392 ms P-R-T Axes : 79 -37 74 degrees QTcB Int : 449 ms Normal sinus rhythm Left axis deviation Incomplete right bundle branch block Abnormal ECG When compared with ECG of 09-May-2025 09:03, No significant change was found Referred By: Atilio [facility] Electronically Signed By: AKASH SUAREZ MD
--- NOTE | 2025-05-09 14:14 | PHA.MEDREC ---
Addendum entered by Jolanta Alcala RP 05/09/25 16:34: Called and spoke to who confirmed patient is taking spiriva resp 2.5 mcg 2 puffs daily (last took it today 05/09/25). She was unsure about the dose of venlafaxine. Called [facility] and they confirmed they have been filling both the 37.5 mg + 150 mg rx (his nurse called pharmacy to fill rx's) and there is a note on rx from October, that total daily dose is 187.5 mg. MED REC REVIEWED BY [facility]. Original Note: Pharmacy Consult ? Medication Reconciliation Pharmacy has completed the medication reconciliation. Spoke to patient through diplomatic interpreter service, however patient is a poor historian. Called and Spoke to patient Sierra over the phone [phone] to confirm med list. states patient is no longer taking Atorvastatin 40 mg, Baclofen 10 mg, Tamsulosin 0.8 m, topiramate 50 mg, and Trazadone 100 mg. confirmed Suboxone 4mg/1mg daily at 12:00pm. Suboxone 8mg/4mg BID, Quetiapine 100 mg bid, Quetiapine 400 mg at bedtime, Risperidone 1 mg daily, Risperidone 3 mg at bedtime. states patient takes Mirtazapine 45 mg , however claims had 15 mg at bedtime. left on what claims has. Patient is also taking Zolpidem 5 mg at bedtime. Patient had all his morning medications today.
[2025-05-09] MEDS: oxyCODONE HCl Immed Release 5 MG TABLET PO ×2 (16:40→22:36)
[2025-05-09] MEDS: 0.9 % Sodium Chloride Flush 3 ML SYRINGE IVFLUSH (21:01)
[2025-05-09] MEDS: Ferrous Sulfate 324 MG TABLET.DR PO (21:01)
[2025-05-10 03:54] VITALS: BP 132/62; PULSE 96; RESP 20; TEMP 37; O2SAT 96
[2025-05-10 06:28] LABS: Alanine Aminotransferase 27 U/L (0-40); Albumin Level 3.7 g/dL (3.5-5.0); Alkaline Phosphatase 78 U/L (39-117); Anion Gap 13 (12-20); Aspartate Amino Transferase 15 U/L (5-37); Blood Urea Nitrogen 18 mg/dL (9-16); Calcium 8.9 mg/dL (8.4-10.2); Carbon Dioxide 26 mmol/L (22-29); Chloride 104 mmol/L (96-108); Creatinine Clr Calc Pharmacy 68.2; Estimated Glomerular Filt Rate > 60; Potassium 4.6 mmol/L (3.3-5.1); Sodium 138 mmol/L (135-145); Total Protein 6.5 g/dL (6.5-8.0)
[2025-05-10 07:00] VITALS: BP 118/69; PULSE 91; RESP 16; TEMP 36.8; O2SAT 94
[2025-05-10] MEDS: Tiotropium Bromide 2.5 mcg 1 PUFF/2.5 MCG MIST.INHAL 2 PUFF INHALE (08:06)
[2025-05-10 08:08] VITALS: PULSE 89; RESP 18; O2SAT 94
[2025-05-10] MEDS: 0.9 % Sodium Chloride Flush 3 ML SYRINGE IVFLUSH ×2 (09:00→14:33)
[2025-05-10] MEDS: Venlafaxine HCl ER 150 MG CAP.ER.24H PO (09:01)
[2025-05-10] MEDS: Venlafaxine HCl ER 37.5 MG CAP.ER.24H PO (09:01)
--- NOTE | 2025-05-10 09:08 | P.DS_ITS ---
DS: Providers Provider Date of Service: 05/10/25 Date of admission: 05/09/25 11:23 Date of discharge: 05/10/25 Primary care physician: Vince Doran MD DS: Diagnosis Discharge Diagnosis (1) CAP (community acquired pneumonia): Status: Acute (2) COPD (chronic obstructive pulmonary disease): Status: Acute DS: Summary Hospital Course Hospital Course: admission hpi Chief Complaint: sob 60-year-old male?with a medical history significant for COPD/asthma, opioid dependence managed with buprenorphine/naloxone (Suboxone), GERD on pantoprazole (Protonix), and mental health conditions including anxiety and depression treated with mirtazapine, quetiapine (Seroquel), risperidone, and hydroxyzine.He presented with several days of shortness of breath and cough, and reported running out of albuterol. On arrival, his oxygen saturation was 89% on room air. Chest X-ray revealed a right lower lobe pneumonia. Arterial blood gas was reassuring.In the emergency department, he was treated with bronchodilators, intravenous steroids, ceftriaxone, and azithromycin. His oxygen saturation subsequently improved to 93% on room air. hospital course 60/with COPD/asthma here with COPD/Asthma with pneumonia. He was admitted and treated with IV antibiotics, bronchodilators by Neb, IV steroid and and has made rapid recovery, he is presently without hypoxia, O2 sat sat is 94 on room air. No fever, WBC within normal. Will discharge with Prednisone 40 mg for a toal of 5 days of steroid and Augmentin for 5 more days for community acquired pneumoniia Opioid dependence Continue Suboxone Substance use discouraged GERD Continue Protonix. Mental health Continue current psychiatric medications. Time Attestation Discharge Coordination Time (in mins): 40 Quality: Safe Use of Opioids Does Pt have an Active Cancer Diagnosis on the Problem List?: No Quality: Stroke Does the patient have a stroke diagnosis?: No Physical Exam Vital Signs: Vital Signs: Last Vital Signs Temp 98.2 F 05/10/25 07:00 Pulse 89 05/10/25 08:08 Resp 18 05/10/25 08:08 BP 118/69 05/10/25 07:00 Pulse Ox 94 05/10/25 07:00 O2 Del Method Room Air 05/10/25 07:00 BMI result Body Mass Index 26.7 DS: Data Data Completed and Pending Labs on day of discharge: Laboratory Results - last 24 hr 05/09/25 05/09/25 05/09/25 09:17 09:24 09:58 WBC 7.7 RBC 4.08 L Hgb 11.7 L Hct 36.1 L MCV 88.5 MCH 28.7 MCHC 32.4 RDW 13.9 Plt Count 282 MPV 8.1 L Immature Gran % (Auto) 0.5 H Neut % (Auto) 72.1 Lymph % (Auto) 18.3 L [place] % (Auto) 6.1 Eos % (Auto) 2.7 Baso % (Auto) 0.3 Lymph # (Auto) 1.4 [place] # (Auto) 0.5 Eos # (Auto) 0.2 Baso # (Auto) 0.0 Abs Immat Gran (auto) 0.04 H Absolute Neuts (auto) 5.5 Absolute Nucleated RBC 0.000 Nucleated RBC % (auto) 0.0 Hold Purple Top VBG pH 7.38 VBG pCO2 57 VBG pO2 46 VBG HCO3 34 H VBG O2 Saturation 80.0 VBG Base Excess 7.6 Sodium 141 Potassium 4.3 Chloride 104 Carbon Dioxide 29 Anion Gap 12 BUN 13 Creatinine 1.06 Estim Creat Clear Calc 60.5 Estimated GFR > 60 Random Glucose 145 H Lactic Acid 0.7 Calcium 9.2 Magnesium 2.3 Total Bilirubin 0.2 Direct Bilirubin < 0.2 AST 27 ALT 42 H Alkaline Phosphatase 90 Troponin I High Sens < 2.7 NT-Pro-B Natriuret Pep 30.7 Total Protein 7.0 Albumin 4.1 Urine Opiates Screen Ur Buprenorphine Scrn Ur Oxycodone Screen Urine Methadone Screen Urine Fentanyl Screen Ur Barbiturates Screen Ur Phencyclidine Scrn Ur Amphetamines Screen U Benzodiazepines Scrn Urine Cocaine Screen U Marijuana (THC) Screen COVID-19 (ALENA) Negative COVID-19 Clin Com See Note Influenza Type A (RASHAD) Negative Influenza Type B (RASHAD) Negative Influenza A & B Note See Note 05/09/25 05/10/25 05/10/25 11:28 05:51 08:49 WBC RBC Hgb Hct MCV MCH MCHC RDW Plt Count MPV Immature Gran % (Auto) Neut % (Auto) Lymph % (Auto) [place] % (Auto) Eos % (Auto) Baso % (Auto) Lymph # (Auto) [place] # (Auto) Eos # (Auto) Baso # (Auto) Abs Immat Gran (auto) Absolute Neuts (auto) Absolute Nucleated RBC Nucleated RBC % (auto) Hold Purple Top SEE NOTE SEE NOTE VBG pH VBG pCO2 VBG pO2 VBG HCO3 VBG O2 Saturation VBG Base Excess Sodium 138 Potassium 4.6 Chloride 104 Carbon Dioxide 26 Anion Gap 13 BUN 18 H Creatinine 0.94 Estim Creat Clear Calc 68.2 Estimated GFR > 60 Random Glucose 150 H Lactic Acid Calcium 8.9 Magnesium Total Bilirubin 0.2 Direct Bilirubin AST 15 ALT 27 Alkaline Phosphatase 78 Troponin I High Sens NT-Pro-B Natriuret Pep Total Protein 6.5 Albumin 3.7 Urine Opiates Screen Not Detected Ur Buprenorphine Scrn Positive H Ur Oxycodone Screen Not Detected Urine Methadone Screen Not Detected Urine Fentanyl Screen Not Detected Ur Barbiturates Screen Not Detected Ur Phencyclidine Scrn Not Detected Ur Amphetamines Screen Not Detected U Benzodiazepines Scrn Not Detected Urine Cocaine Screen POSITIVE H U Marijuana (THC) Screen Not Detected COVID-19 (ALENA) COVID-19 Clin Com Influenza Type A (RASHAD) Influenza Type B (RASHAD) Influenza A & B Note Discharge Plan Discharge Anticipated Discharge Date/Time: 05/10/25 09:21 Patient Disposition: Home, Self-Care Discharge Diagnosis: Ashtma/copd exacerbation, community acquired pneumonia Referrals: Vince Doran MD [Primary Care Provider, Medical] - 1 Week Discharge Medications: New prednisone 20 mg tablet 40 mg PO DAILY Qty: 6 0RF Continued acetaminophen 500 mg tablet 500 mg PO Q6H PRN (Reason: Pain) sildenafil [Viagra] 100 mg tablet 100 mg PO DAILY PRN (Reason: Erectile Dysfunction) pantoprazole 40 mg tablet,delayed release (DR/EC) 40 mg PO DAILY@0630 mirtazapine 15 mg tablet 15 mg PO BEDTIME zolpidem 5 mg Tablet 5 mg PO BEDTIME PRN (Reason: insomnia) 15 Days Qty: 15 1RF albuterol sulfate [Ventolin HFA] 90 mcg/actuation HFA aerosol inhaler 2 puff INHALATION Q4-6H PRN (Reason: Wheezing) 30 Days Qty: 6.7 0RF venlafaxine 37.5 mg capsule,extended release 24hr 37.5 mg PO DAILY quetiapine 100 mg tablet 100 mg PO BID risperidone 1 mg tablet 1 mg PO DAILY quetiapine 400 mg tablet 400 mg PO BEDTIME clonazepam 0.5 mg tablet 0.5 mg PO TID furosemide 20 mg tablet 20 mg PO DAILY buprenorphine-naloxone [Suboxone] 8-2 mg film 1 film sublingual BID venlafaxine 150 mg capsule,extended release 24hr 150 mg PO DAILY Rx Instructions: TOTAL DAILY DOSE 187.5 MG DAILY Spiriva Respimat 2.5 mcg/actuation Mist 2 puff INHALATION DAILY ferrous sulfate 325 mg (65 mg iron) tablet,delayed release (DR/EC) 325 mg PO BEDTIME buprenorphine-naloxone [Suboxone] 4-1 mg film 1 film sublingual DAILY@1200 hydroxyzine HCl 25 mg tablet 25 mg PO BID risperidone 3 mg tablet 3 mg PO BEDTIME Activity on Discharge: As tolerated Stand Alone Forms: Patient Portal Discharge page Print Language: Vietnamese Care Plan Goals: recovery from asthma exacerbation and pneumonia Health Concerns: pneumonia Plan of Treatment: take prednisone and inhalers for asthma exacerbation take Augmentin for pneumonia follow up with your doctor in a week, call for appointment Assessment: See above
[2025-05-10 09:36] LABS: Troponin-I High Sensitivity < 2.7 ng/L (<3.5-35.0)
[2025-05-10] MEDS: Buprenorphine/Naloxone 4/1 mg FILM 1 FILM SUBLINGUAL (12:56)
--- NOTE | 2025-05-10 14:47 | MHC.CM.PN ---
EMR REVIEWED, PT W/COPD/PNA, CM MET W/PT VIA [facility], PT USES A CANE OCCASIONALLY, HAS BID VNA FOR MEDS HOWEVER DOES NOT RECALL NAME OF VNA, PT'S GOAL FOR DC IS HOME W/RESUMP OF VNA. PT VERIFIES PCP/HCP ON FILE. DP: ANTIC HOME TODAY W/RESUMP OF VNA AND PT HAS CALLED A FRIEND FOR A RIDE HOME.
== END 2025-05-10 16:05 | disposition home or self-care (01) | DRG 139 ==
LOC: HO.ED 11:01 → HO.EDOVER 11:27 → HO.S3 11:36
PROVIDERS: Admitting Provider Internal Medicine; Emergency Provider Emergency Medicine; PCP Internal Medicine; Visit Provider Internal Medicine
DX: J18.9 Pneumonia, unspecified organism (principal); F10.10 Alcohol abuse, uncomplicated; J43.9 Emphysema, unspecified; F11.20 Opioid dependence, uncomplicated; K21.9 Gastro-esophageal reflux disease without esophagitis; F17.210 Nicotine dependence, cigarettes, uncomplicated; Z71.6 Tobacco abuse counseling; Z20.822 Contact with and (suspected) exposure to COVID-19; Z79.899 Other long term (current) drug therapy
CPT/HCPCS: 36415; 70450; 71045; 80048; 80053; 80076; 80307; 82803; 83605; 83735; 83880; 84484; 85025; 87040; 87502; 87635; 93005; 94640; 99285; J0696; J1271; J1650; J2919; J3475

== ENCOUNTER → 2025-05-09 08:53 | Outpatient (BNV) | payer MEDICAID, SELFPAY | PROVIDERS: Emergency Provider Emergency Medicine; PCP Internal Medicine; Visit Provider Radiology Diagnostic Radiology | DX: R06.00 Dyspnea, unspecified (principal) | CPT/HCPCS: 71045 ==

== ENCOUNTER → 2025-05-09 08:53 | Outpatient (BNV) | payer MEDICAID, SELFPAY | PROVIDERS: Emergency Provider Emergency Medicine; PCP Internal Medicine; Visit Provider Internal Medicine Cardiovascular Disease | DX: I45.10 Unspecified right bundle-branch block (principal) | CPT/HCPCS: 93010 ==

== ENCOUNTER 2025-05-09 11:23 | Outpatient (BNV) | payer MEDICAID, SELFPAY | END 2025-05-10 12:32 | PROVIDERS: Admitting Provider Internal Medicine; Emergency Provider Emergency Medicine; PCP Internal Medicine; Visit Provider Radiology Diagnostic Radiology | DX: R51.9 Headache, unspecified (principal) | CPT/HCPCS: 70450 ==

== ENCOUNTER → 2025-05-09 11:23 | Outpatient (BNV) | payer MEDICAID, SELFPAY | PROVIDERS: Admitting Provider Internal Medicine; Emergency Provider Emergency Medicine; PCP Internal Medicine; Visit Provider Internal Medicine | DX: J18.9 Pneumonia, unspecified organism (principal); J44.9 Chronic obstructive pulmonary disease, unspecified | CPT/HCPCS: 99223; 99239 ==

== ENCOUNTER 2025-05-31 12:12 | Emergency (ER) | payer MEDICAID, SELFPAY ==
--- NOTE | ~2025-05-31 | XR_ITS ---
CLINICAL HISTORY: sob 1 view chest x-ray Comparison: CR/SR - XR CHEST 1 VIEW - 05/09/25 09:16 EDT CR/SR - XR CHEST 2 VIEWS - 04/23/25 09:40 EDT CR/ID/SR - XR CHEST 1V - 08/08/23 13:03 EST Findings: The lungs are clear. Heart size is normal. No acute fracture. Chronic healed fracture of the right clavicle with deformity. IMPRESSION: 1. No acute findings. This document has been electronically signed by: Liss Espinoza MD on 05/31/2025 13:46:44
[2025-05-31 12:23] VITALS: BP 135/83; PULSE 92; O2SAT 94
--- NOTE | 2025-05-31 12:31 | ECG_ITS ---
Test Reason : SOB Blood Pressure : */* mmHG Vent. Rate : 84 BPM Atrial Rate : 84 BPM P-R Int : 160 ms QRS Dur : 110 ms QT Int : 370 ms P-R-T Axes : 71 -15 77 degrees QTcB Int : 437 ms Normal sinus rhythm Incomplete right bundle branch block Borderline ECG When compared with ECG of 09-May-2025 14:14, No significant change was found Referred By: Karyn Barth Electronically Signed By: AKASH SUAREZ MD
[2025-05-31 12:40] VITALS: BP 138/80; PULSE 94; RESP 20; TEMP 36.5; O2SAT 95; BMI 26.2
--- NOTE | 2025-05-31 13:07 | ED.CHESTPAIN ---
HPI - Chest Pain General Chief Complaint: Chest Pain Stated Complaint: SOB X3D,CP X2D, 93% RA PER EMS Time Seen by Provider: 05/31/25 12:30 Source: patient and EMS Mode of arrival: EMS Limitations: no limitations History of Present Illness ED Provider: SANTOSH Barth HPI narrative: Chief Complaint: ?Chest pain and cough for the past three days.? History of Present Illness: The patient is a 60-year-old male with a complex medical history including community-acquired pneumonia, hep c, COPD, pulmonary embolism (no longer on anticoagulation, to be verified), lumbosacral spondylosis, BPH, major depression, and substance use disorders (cocaine, nicotine, alcohol, cannabis). He presented via ambulance with substernal, non-radiating chest pain that began yesterday and is associated with shortness of breath. He reports a worsening cough that has been present for three days, with increased severity since yesterday. The patient also describes nausea without vomiting, left lower quadrant abdominal discomfort, and a diffuse headache that started yesterday afternoon. He denies fever, chills, and sick contacts. Regarding substance use, he reports a history of cocaine use but has been clean for two weeks, prior nicotine dependence, and alcohol abuse but denies current alcohol use; he has never used IV drugs. Related Data Home Medications ?Medication ?Instructions ?Recorded ?Confirmed ferrous sulfate 325 mg (65 mg 325 mg PO BEDTIME 01/25/24 05/09/25 iron) tablet,delayed release acetaminophen 500 mg tablet 500 mg PO Q6H PRN Pain 06/24/24 05/09/25 mirtazapine 15 mg tablet 15 mg PO BEDTIME 06/24/24 05/09/25 pantoprazole 40 mg tablet,delayed 40 mg PO DAILY@0630 06/24/24 05/09/25 release sildenafil 100 mg tablet (Viagra) 100 mg PO DAILY PRN Erectile 06/24/24 05/09/25 Dysfunction buprenorphine 4 mg-naloxone 1 mg 1 film sublingual DAILY@1200 11/21/24 05/09/25 sublingual film (Suboxone) hydroxyzine HCl 25 mg tablet 25 mg PO BID 11/21/24 05/09/25 risperidone 3 mg tablet 3 mg PO BEDTIME 11/21/24 05/09/25 buprenorphine 8 mg-naloxone 2 mg 1 film sublingual BID 05/09/25 05/09/25 sublingual film (Suboxone) clonazepam 0.5 mg tablet 0.5 mg PO TID 05/09/25 05/09/25 furosemide 20 mg tablet 20 mg PO DAILY 05/09/25 05/09/25 quetiapine 100 mg tablet 100 mg PO BID 05/09/25 05/09/25 quetiapine 400 mg tablet 400 mg PO BEDTIME 05/09/25 05/09/25 risperidone 1 mg tablet 1 mg PO DAILY 05/09/25 05/09/25 tiotropium bromide 2.5 2 puff inhalation DAILY 05/09/25 05/09/25 mcg/actuation mist for inhalation (Spiriva Respimat) venlafaxine 150 mg 150 mg PO DAILY 05/09/25 05/09/25 capsule,extended release 24 hr venlafaxine 37.5 mg 37.5 mg PO DAILY 05/09/25 05/09/25 capsule,extended release 24 hr Previous Rx's ?Medication ?Instructions ?Recorded albuterol sulfate 90 mcg/actuation 2 puff inhalation Q4-6H PRN 06/30/23 aerosol inhaler (Ventolin HFA) Wheezing 30 days #6.7 grams zolpidem 5 mg tablet 5 mg PO BEDTIME PRN insomnia 15 06/30/23 days #15 tabs levofloxacin 750 mg tablet 750 mg PO DAILY 5 days #5 tabs 05/10/25 prednisone 20 mg tablet 40 mg (2 x 20 mg) PO DAILY #6 tabs 05/10/25 albuterol sulfate 90 mcg/actuation 2 inh inhalation Q4-6H PRN 05/31/25 breath activated powder inhaler shortness of breath or wheezing #1 ea prednisone 20 mg tablet 20 mg PO DAILY 5 days #5 tabs 05/31/25 Allergies Allergy/AdvReac Type Severity Reaction Status Date / Time ibuprofen Allergy Intermediate Stomach Verified 05/31/25 12:42 Upset penicillin V Allergy Intermediate rash Verified 05/31/25 12:42 Review of Systems Review of Systems: ? Constitutional: denies fever, denies chills. ? HEENT: positive diffuse headache. ? Cardiovascular: positive substernal chest pain. ? Respiratory: positive cough, positive shortness of breath. ? Gastrointestinal: positive nausea, denies vomiting; positive left lower quadrant abdominal pain. ? All other systems not discussed. Yes all other systems are reviewed and are negative [facility] Past Medical History Attestation statement: The following information was validated with the patient. Source: old records reviewed and nursing notes reviewed Medical History Acute pain of right shoulder Chronic low back pain without sciatica Hepatitis C Cocaine abuse Opioid dependence Finger lesion Chronic anemia Migraine Routine medical exam Lung mass Suicidal ideation Polysubstance abuse Chronic back pain BPH (benign prostatic hyperplasia) Nicotine dependence Cannabis use disorder, moderate, dependence Cocaine use disorder Pulmonary nodules Emphysema of lung Anxiety Depression Asthma Surgical History Hx of cholecystectomy Social History Social History Household Members: Spouse Housing: Apartment Do you presently have visiting nurse or other home services: Yes Alcohol intake: current Alcohol intake frequency: former alcohol drinker Alcohol type: beer Patient Tobacco Use Status: Current someday Tobacco user Tobacco use type: Cigarette Cigarettes Per Day: 2 Years Smoked: many years e-Cigarette/Vaping Use: Never Used Second Hand Smoke Exposure: No Use of substances other than those prescribed or required for medical reasons: Yes Substance Use Type: Crack/Cocaine Substance Use Frequency: Occasionally Last Used Substance: Weeks (ago) Any prior treatment program specific to substance use: No Advance Directives: Yes Advance Directives on File: Yes Advance Directives Date on File: 01/18/23 Do you have a plan to hurt others: No Plan service: No Current occupational status: unemployed Current occupation: right hand dominant Sexual orientation: Straight/Heterosexual Physical Exam Exam: Exam: Appearance: Alert.? Oriented X3.? No acute distress.? Head: Normocephalic, atraumatic, no step-offs or deformities Eyes: Pupils equal, round and reactive to light.? ENT: Pharynx normal.? Neck: Normal inspection.? Neck supple.? CVS: Normal heart rate and rhythm.? Pulses normal.? Respiratory: No respiratory distress.? Breath sounds normal.? Abdomen: Soft and nontender.? Skin: Skin warm and dry.? Normal skin color.? Normal skin turgor.? Extremities: No lower extremity edema.? No calf ttp. 5/5 strength to bilateral upper and lower extremities Neuro: Oriented X 3.? No motor deficit.? No sensory deficit. CN 2-12 intact Vital Signs: Vital Signs: Last Vital Signs Temp 97.7 F 05/31/25 12:40 Pulse 83 05/31/25 14:27 Resp 18 05/31/25 14:27 BP 129/80 05/31/25 14:27 Pulse Ox 95 05/31/25 14:27 O2 Del Method Room Air 05/31/25 14:27 BMI result Body Mass Index 26.2 vss Course Reevaluation(s) Reevaluation #1: Patient's CBC with no acute findings needing intervention. There is a normocytic anemia noted. Chemistry with negative troponin pro BNP within normal range. EKG with no signs of STEMI or ischemia. D-dimer age adjusted negative. Age-Adjusted D-dimer for Venous Thromboembolism (VTE) from [employer] on 05/31/2025 All calculations should be rechecked by clinician prior to use RESULT SUMMARY: 310 ?g/L Age-adjusted D-dimer cutoff, DDU VTE unlikely Reported D-dimer is less than or equal to cutoff; consider alternative diagnosis INPUTS: Age ?> 60 years D-dimer level reported by lab ?> 236 ?g/L D-dimer unit type ?> 1 = DDU (unadjusted cutoff typically 230-250 or 0.23-0.25) Chest x-ray unremarkable. Patient is not hypoxic or tachycardic. No indication for CTA at this time. COVID, influenza negative. Educated patient on diagnosis and treatment plan, answered all question, patient verbalizes understanding. At this time patient will be discharged home, advised to return with new or worsening symptoms. Educated on worrisome signs and symptoms and when to return. At this time I feel comfortable discharge home. Time: 17:19 Medications Administered Discontinued Medications Generic Name Dose Route Start Last Admin Trade Name Freq PRN Reason Stop Dose Admin Acetaminophen 975 mg 05/31/25 15:37 05/31/25 15:44 Acetaminophen 325 Mg Tablet PO 05/31/25 15:38 975 mg ONCE ONE Administration Clonazepam 0.5 mg 05/31/25 16:36 05/31/25 16:48 Clonazepam 0.5 Mg Tablet PO 05/31/25 16:37 0.5 mg ONCE ONE Administration Medical Decision Making Medical Decision Making [facility] Narrative: 1309 60-year-old male with multiple comorbidities presenting with acute substernal chest pain, worsening cough, and associated dyspnea, nausea, LLQ abdominal pain, and headache. Problem #1: Chest pain & possible cardiac/PE etiology Assessment: Acute substernal, non-radiating chest pain with dyspnea in patient with history of pulmonary embolism and significant cardiac risk factors. Plan: Labs pending; will review results and determine next steps. Problem #2: Worsening cough / shortness of breath Assessment: Three-day history, worsened yesterday; could represent viral infection versus COPD exacerbation versus pneumonia. Plan: Will reassess after initial labs and evaluation. Problem #3: Nausea, LLQ abdominal pain, diffuse headache Assessment: Nonspecific symptoms; etiology unclear. Plan: Will evaluate further after initial assessment and lab results. Follow-up: Will return to update patient after initial studies, determine need for further imaging, and refine management based on results. Differential Diagnosis Differential Diagnoses: The differential diagnosis associated with the presentation includes Cardiac ischemia Dysrhythmia Pulmonary embolism Viral URI/bronchitis COPD exacerbation Intra-abdominal pathology Admission/Observation Consideration of admission/observation: Escalation of care including admission/observation considered Lab Data MDM Lab Attestation statement: I reviewed the patient's lab results. 05/31/25 12:58 Labs: Lab Results 05/31/25 05/31/25 05/31/25 Range/Units 12:58 13:33 15:51 WBC 5.4 (4.8-10.8) X10*3/uL RBC 3.97 L (4.60-5.80) X10*6/uL Hgb 11.5 L (14.0-18.0) g/dl Hct 34.9 L (42.0-52.0) % MCV 87.9 (80.0-98.0) fL MCH 29.0 (27.0-33.0) pg MCHC 33.0 (31.0-36.0) g/dl RDW 14.6 (11.0-16.0) % Plt Count 308 (160-400) X10*3/uL MPV 8.2 L (9.4-12.4) fL Immature Gran % (Auto) 0.7 H (0.0-0.4) % Neut % (Auto) 48.1 (45-73) % Lymph % (Auto) 36.5 (20-40) % [place] % (Auto) 8.9 (2-11) % Eos % (Auto) 5.2 H (0-4) % Baso % (Auto) 0.6 (0-2) % Lymph # (Auto) 2.0 (1.2-4.9) X10*3/uL [place] # (Auto) 0.5 (0.1-1.2) X10*3/uL Eos # (Auto) 0.3 (0.0-0.4) X10*3/uL Baso # (Auto) 0.0 (0.0-0.2) X10*3/uL Abs Immat Gran (auto) 0.04 H (0.00-0.03) X10*3/uL Absolute Neuts (auto) 2.6 (2.0-8.3) x10*3/uL Absolute Nucleated RBC 0.000 (0.0-0.012) X10*3/uL Nucleated RBC % (auto) 0.0 (0.0-0.2) /100WBC D-Dimer High Sensitivty 236 NG/ML Troponin I High Sens < 2.7 (<3.5-35.0) ng/L NT-Pro-B Natriuret Pep 57.2 (<300) pg/mL COVID-19 (ALENA) Negative (Negative) COVID-19 Clin Com See Note Influenza Type A (RASHAD) Negative (Negative) Influenza Type B (RASHAD) Negative (Negative) Influenza A & B Note See Note Independent Interpretation I performed an independent interpretation of an: EKG (Normal sinus rhythm Incomplete right bundle branch block Borderline ECG When compared with ECG of 09-May-2025 14:14, No significant change was found) and Plain X-Ray (Findings: The lungs are clear. Heart size is normal. No acute fracture. Chronic healed fracture of the right clavicle with deformity. IMPRESSION: 1. No acute findings.) Radiology Impression Discussion of test interpretation with radiology: I have reviewed the radiologist's reading. External Record Review External record reviewed: Inpatient record, Office record, Outpatient record, Prior outpatient labs, Prior outpatient radiology, Primary care record and Outside ED record Chronic Conditions Patient?s care impacted by: Other (see hpi ) Critical Care Time Critical Care Time Critical Care Time: No Discharge Plan Discharge Clinical Impression: Viral illness Patient Disposition: Home, Self-Care Instructions: Viral Syndrome (ED) Additional Instructions: Take your medications as prescribed. If you were prescribed antibiotics today, it is important that you take your medication to their entirety, do not skip any doses, do not finish them early. Follow-up with your primary care provider this week. Return to the emergency department with new or worsening symptoms. In case of emergency call 911 Prescriptions: New prednisone 20 mg tablet 20 mg PO DAILY 5 Days Qty: 5 0RF albuterol sulfate 90 mcg/actuation aerosol powdr breath activated 2 inh inhalation Q4-6H PRN (Reason: shortness of breath or wheezing) Qty: 1 0RF No Action acetaminophen 500 mg tablet 500 mg PO Q6H PRN (Reason: Pain) sildenafil [Viagra] 100 mg tablet 100 mg PO DAILY PRN (Reason: Erectile Dysfunction) pantoprazole 40 mg tablet,delayed release (DR/EC) 40 mg PO DAILY@0630 mirtazapine 15 mg tablet 15 mg PO BEDTIME zolpidem 5 mg Tablet 5 mg PO BEDTIME PRN (Reason: insomnia) 15 Days Qty: 15 1RF albuterol sulfate [Ventolin HFA] 90 mcg/actuation HFA aerosol inhaler 2 puff INHALATION Q4-6H PRN (Reason: Wheezing) 30 Days Qty: 6.7 0RF venlafaxine 37.5 mg capsule,extended release 24hr 37.5 mg PO DAILY quetiapine 100 mg tablet 100 mg PO BID risperidone 1 mg tablet 1 mg PO DAILY quetiapine 400 mg tablet 400 mg PO BEDTIME clonazepam 0.5 mg tablet 0.5 mg PO TID furosemide 20 mg tablet 20 mg PO DAILY buprenorphine-naloxone [Suboxone] 8-2 mg film 1 film sublingual BID venlafaxine 150 mg capsule,extended release 24hr 150 mg PO DAILY Rx Instructions: TOTAL DAILY DOSE 187.5 MG DAILY Spiriva Respimat 2.5 mcg/actuation Mist 2 puff INHALATION DAILY prednisone 20 mg tablet 40 mg PO DAILY Qty: 6 0RF levofloxacin 750 mg tablet 750 mg PO DAILY 5 Days Qty: 5 0RF ferrous sulfate 325 mg (65 mg iron) tablet,delayed release (DR/EC) 325 mg PO BEDTIME buprenorphine-naloxone [Suboxone] 4-1 mg film 1 film sublingual DAILY@1200 hydroxyzine HCl 25 mg tablet 25 mg PO BID risperidone 3 mg tablet 3 mg PO BEDTIME Referrals: Vince Doran MD [Primary Care Provider, Medical] Print Language: Italian
[2025-05-31 13:09] LABS: MANUAL DIFF FLAG NO
[2025-05-31 13:11] LABS: Hematocrit 34.9 % (42.0-52.0); Hemoglobin 11.5 g/dl (14.0-18.0); Imm Gran Abs Auto 0.04 X10*3/uL (0.00-0.03); Imm Gran Pct Auto 0.7 % (0.0-0.4); Lymphocytes Absolute Auto 2.0 X10*3/uL (1.2-4.9); Mean Corpuscular HGB Conc 33.0 g/dl (31.0-36.0); Mean Corpuscular Hemoglobin 29.0 pg (27.0-33.0); Mean Corpuscular Volume 87.9 fL (80.0-98.0); NRBC Abs Auto 0.000 X10*3/uL (0.0-0.012); NRBC Pct Auto 0.0 /100WBC (0.0-0.2); Platelet Count 308 X10*3/uL (160-400); Red Blood Count 3.97 X10*6/uL (4.60-5.80); White Blood Count 5.4 X10*3/uL (4.8-10.8)
[2025-05-31 13:32] LABS: NT Pro B Type Natriuretic Pept 57.2 pg/mL (<300)
[2025-05-31 13:46] LABS: Troponin-I High Sensitivity < 2.7 ng/L (<3.5-35.0)
[2025-05-31 13:51] LABS: D Dimer High Sensitivity 236 NG/ML
[2025-05-31 14:27] VITALS: BP 129/80; PULSE 83; RESP 18; O2SAT 95
[2025-05-31 16:48] LABS: COVID-19 Test Negative (Negative); IDNOW Serial# 55D5AD1C; IDNOW Serial# 58CA691E; Influenza B2 Negative (Negative)
[2025-05-31 17:27] VITALS: BP 129/80; PULSE 83; RESP 18; TEMP 36.4; O2SAT 95
== END 2025-05-31 17:27 | disposition home or self-care (01) ==
PROVIDERS: Physician Assistant; Emergency Provider Emergency Medicine; PCP Internal Medicine
DX: B34.9 Viral infection, unspecified (principal); R07.9 Chest pain, unspecified; R05.9 Cough, unspecified; R06.02 Shortness of breath; Z03.818 Encounter for observation for suspected exposure to other biological agents ruled out; I45.10 Unspecified right bundle-branch block; R94.31 Abnormal electrocardiogram [ECG] [EKG]
CPT/HCPCS: 36415; 71045; 83880; 84484; 85025; 85379; 87502; 87635; 93005; 99283; 99285

== ENCOUNTER → 2025-05-31 12:31 | Outpatient (BNV) | payer MEDICAID, SELFPAY | PROVIDERS: Emergency Provider Emergency Medicine; PCP Internal Medicine; Visit Provider Radiology Diagnostic Radiology | DX: R06.02 Shortness of breath (principal) | CPT/HCPCS: 71045 ==

== ENCOUNTER → 2025-05-31 12:31 | Outpatient (BNV) | payer MEDICAID, SELFPAY | PROVIDERS: Emergency Provider Emergency Medicine; PCP Internal Medicine; Visit Provider Internal Medicine Cardiovascular Disease | DX: I45.10 Unspecified right bundle-branch block (principal) | CPT/HCPCS: 93010 ==

== ENCOUNTER 2025-07-09 08:37 | Inpatient (IN) | payer MEDICAID, SELFPAY ==
--- OUTSIDE RECORDS SUMMARY | 2025-07-04 09:30 | XMS_ITS | Encounter Summary ---
Author Organization [employer] Address [address] [place] [address] Care Team Providers Care Automobile Repossessor Name Role Phone Vince Lockhart MD Primary Care Provide r Radha Howard RN Unavailable [phone] Shelbi Santamaria Unavailable Reason for Visit * Reason Comments Extraction Encounter Details Date Type Department Care Team (Late st Contact Info) Description 07/04/2025 9:30 AM EST Office Visit [facility] [address] [place], [place] [phone] Nils Bower DDS [address] [place], [place] [id number] Social History Tobacco Use Types Packs/Day Years Used Date Smoking Tobacco: Some Days Cigarettes Passive Smoke Exposure: Current Smokeless Tobacco: Never Alcohol Use Standard Drinks/Week Comments Not Currently 0 (1 standard drink = 0.6 oz pure alcohol) 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 Depression Answer Date Recorded Patient Health Questionnaire-9 Score 17 06/04/2025 Patient Health Questionnaire-9 Score 17 06/04/2025 Last PHQ-9: Questionnaire Data Not on file 1 08/04/2024 Housing Stability Answer Date Recorded What is [...] Date Recorded Patient Health Questionnaire-2 Score 5 06/04/2025 Internet Access Answer Date Recorded Internet Access [...] AM EDT documented as of this encounter Last Filed Vital Signs Vital Sign Reading Time Taken Comments Blood Pressure 110/78 07/04/2025 9:13 AM EST Pulse 70 07/04/2025 9:13 AM EST Temperature - - Respiratory Rate - - Oxygen Saturation - - Inhaled Oxygen Concentration - - Weight - - Height - - Body Mass Index - - documented in this encounter Progress Notes * Nils Bower DDS - 07/04/2025 9:30 AM EST Dental procedures in this visit D7140 - EXTRACTION, ERUPTED TOOTH OR EXPOSED ROOT (ELEVATION/FORCEPS REMOVAL) 11 (Completed) Service provider: Nils Bower DDS Billing provider: Nils Bower DDS D5411 - ADJUST COMPLETE DENTURE - MANDIBULAR (Completed) Service provider: Nils Bower DDS Billing provider: Nils Bower DDS D9450 - CASE PRESENTATION, DETAILED AND EXTENSIVE TREATMENT PLANNING (Completed) Service provider: Nils Bower DDS Billing provider: Nils Bower DDS D0140 - LIMITED ORAL EVALUATION - PROBLEM FOCUSED Patient ID: Augustin Vital is a 60 y.o. male. Time Out: No data recorded Location: [facility] Tooth: Lower denture Procedure: Exam Verified the above with patient, operating room assistant, and provider. Confirmed via patient's chart, intraorally and by radiographs. Winding Lathe Operator: Bengali; Sofia Chief Complaint Patient presents with Extraction Medical Hx: Vitals: Blood pressure 110/78, pulse 70. Medical History[1] Medications: Encounter Medications[2] Subjective: Patient presented with a complaint of big lower denture. Objective: Tooth: Mandibular complete denture Radiographs Taken: None taken Radiographic Findings: N/A Clinical Findings: History of mandibular complete denture delivery. Exam revealed overextended buccal and lingual flanges. Swelling: No swelling Endo Testing: Not required Perio: N/A Other Findings: Poor prognosis associated with the remaining maxillary teeth. 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 Dismissed in good condition. NV: Follow-up with Dr. Manning for adding #11 to the existing maxillary resin partial denture. Pe Teacher: Tati Goldman Dentist: Nils Bower DDS [1] Past Medical History: Diagnosis Date Anxiety COPD (chronic obstructive pulmonary disease) (HCC) Depression GERD (gastroesophageal reflux disease) Tuberculosis [2] Outpatient Encounter Medications as of 07/04/2025 Medication Sig Dispense Refill acetaminophen (Tylenol) 500 MG tablet Take 1 tablet (500 mg) by mouth every 8 (eight) hours if needed for mild pain for up to 7 days. 21 tablet 0 Acetaminophen Extra Strength 500 MG tablet TAKE 1 TABLET (500 MG) ORALLY EVERY 6 HOURS NEEDED FOR FEVER OR PAIN 60 tablet 1 albuterol (Ventolin HFA) 108 (90 Base) MCG/ACT inhaler INHALE 2 PUFFS BY MOUTH EVERY 4 TO 6 HOURS NEEDED 18 g 0 atorvastatin (Lipitor) 40 MG tablet TAKE 1 TABLET BY MOUTH ONCE DAILY AT BEDTIME 30 tablet 2 azithromycin (Zithromax) 250 MG tablet Take two tablets on day one followed by one tablet from day two until gone. 6 tablet 0 baclofen (Lioresal) 10 MG tablet TAKE 1 TABLET (10 MG) BY MOUTH 3 TIMES DAILY NEEDED 90 tablet 0 Blood Pressure Monitoring (Omron 3 Series BP Monitor) device USE DIRECTED EVERY DAY 1 each 0 Buprenorphine HCl-Naloxone HCl (Suboxone) 8-[address] 1 Film under the tongue 2 times daily. Suboxone 4mg/1mg SL daily added to the 8/2mg BID regimen. Do not start before June 25, 2025. 14 Film 3 buprenorphine-naloxone (Suboxone) 4-1 MG per sublingual film Place 1 Film under the tongue Once perday. This is in addition to his 8/2mg BID regimen. Do not start before June 25, 2025. 7 Film 3 clonazePAM (KlonoPIN) 0.5 MG tablet Take 1 tablet by mouth in the morning and 1 tablet at noon and 1 tablet in the evening. ferrous sulfate 325 (65 Fe) MG EC tablet Do not crush, chew, or split.TAKE 1 TABLET (325 MG) BY MOUTH AT BEDTIME. 30 tablet 2 furosemide (Lasix) 20 MG tablet Take by mouth Once per day. hydrOXYzine HCl (Atarax) 25 MG tablet Take 25 mg by mouth 2 times daily. Take at least 8 hours apart ipratropium-albuterol (Duo-Neb) 0.5-2.5 mg/3 mL nebulizer solution INHALE 1 AMPULE USING A NEBULIZER THREE TIMES DAILY IN THE MORNING, AT NOON, AND AT BEDTIME NEEDED FOR WHEEZING 180 mL 0 meloxicam (Mobic) 15 MG tablet TAKE 1 TABLET BY MOUTH EVERY MORNING 30 tablet 3 mirtazapine (Remeron) 15 MG tablet Take 15 mg by mouth at bedtime. Nebulizers (Compressor/Nebulizer) [facility] [place] 1 by Inhalation route as needed Nutritional Supplements (Ensure Nutrition Shake) liquid take 1 can by Oral route 2 times every day pantoprazole (ProtoNix) 40 MG EC tablet TAKE 1 TABLET BY MOUTH EVERY MORNING. DO NOT CRUSH, CHEW ORSPLIT. 90 tablet 1 QUEtiapine (SEROquel) 100 MG tablet TAKE 1 TABLET BY MOUTH TWICE DAILY IN THE MORNING AND IN THE EVENING (AT 9 IN THE MORNING AND AT 6 IN THE EVENING) 60 tablet 3 QUEtiapine (SEROquel) 400 MG tablet Take 1 tablet by mouth at bedtime. risperiDONE (RisperDAL) 1 MG tablet Take 1 tab once 1 tablet 0 risperiDONE (RisperDAL) 3 MG tablet Take 3 mg by mouth Once per day. senna-docusate sodium (Senokot-S) 8.6-50 MG tablet TAKE 1 TABLET BY MOUTH IN THE MORNING AND AT BEDTIME IF NEEDED FOR CONSTIPATION 60 tablet 6 tamsulosin (Flomax) 0.4 MG 24 hr capsule TAKE 2 CAPSULES BY MOUTH ONCE DAILY 60 capsule 3 Tiotropium [place] (Spiriva Respimat) 2.5 MCG/ACT aerosol solution Inhale 2 puffs in the morning. venlafaxine XR (Effexor XR) 150 MG 24 hr capsule TAKE 1 CAPSULE (150 MG) BY MOUTH IN THE MORNING. DO NOT CRUSH OR CHEW. 30 capsule 10 venlafaxine XR (Effexor XR) 37.5 MG 24 hr capsule Take 37.5 mg by mouth Once per day. Do not crush or chew. Viagra 100 MG tablet TAKE 1 TABLET 1 HOUR BEFORE SEXUAL RELATIONS ONCE DAILY NEEDED. 8 tablet 5 zolpidem (Ambien) 5 MG tablet TAKE 1 TABLET (5 MG) BY MOUTH IF NEEDED AT BEDTIME FOR SLEEP. 30 tablet 0 No facility-administered encounter medications on file as of 07/04/2025. * Nils Bower DDS - 07/04/2025 9:30 AM EST Patient ID: Augustin Vital is a 60 y.o. male. Time Out: No data recorded Location: [facility] Tooth: #11 Procedure: Extraction Verified the above with patient, operating room assistant, and provider. Confirmed via patient's chart, intraorally and by radiographs. Winding Lathe Operator: Yes. Language: Bengali. Winding Lathe Operator's Name: Manpreetharshaaustyn Chief Complaint Patient presents with Extraction Medical Hx: Vitals: Blood pressure 110/78, pulse 70. Medical History[1] Medications: Encounter Medications[2] Consent Obtained: The risks, benefits, indications, potential complications, and alternatives were explained to the patient and informed consent was obtained with good understanding. Treatment Provided: Dental procedures in this visit D7140 - EXTRACTION, ERUPTED TOOTH OR EXPOSED ROOT (ELEVATION/FORCEPS REMOVAL) 11 (Completed) Service provider: Nils Bower DDS Billing provider: Nils Bower DDS D5411 - ADJUST COMPLETE DENTURE - MANDIBULAR (Completed) Service provider: Nils Bower DDS Billing provider: Nils Bower DDS D9450 - CASE PRESENTATION, DETAILED AND EXTENSIVE TREATMENT PLANNING (Completed) Service provider: Nils Bower DDS Billing provider: Nils Bower DDS D0140 - LIMITED ORAL EVALUATION - PROBLEM FOCUSED (Completed) Service provider: Nils Bower DDS Billing provider: Nils Bower DDS Diagnosis: Asymptomatic Irreversible pulpitis Topical: 20% Benzocaine Anesthesia: 4% Septocaine (Articaine) w/ 1:200,000 epinephrine Number of Cartridges: 1 Injection Type: Buccal infiltration and Palatal infiltration Confirmed profound anesthesia. Pharyngeal curtain and bite block placed. Removed tooth with elevators and forceps. Apices intact. Surgical Extraction: N/A Socket curetted & irrigated with sterile water. Compressed alveolar bone. Sutures: None Needed All adjacent teeth intact. Hemostasis achieved. Complications: None Written and verbal post-op instructions given. Patient discharged in stable condition; ambulatory, alert, and oriented. NV: Follow-up with Dr. Manning for adding #11 to the existing maxillary resin partial denture. Pe Teacher: Tati Goldman Dentist: Nils Bower DDS [1] Past Medical History: Diagnosis Date Anxiety COPD (chronic obstructive pulmonary disease) (HCC) Depression GERD (gastroesophageal reflux disease) Tuberculosis [2] Outpatient Encounter Medications as of 07/04/2025 Medication Sig Dispense Refill acetaminophen (Tylenol) 500 MG tablet Take 1 tablet (500 mg) by mouth every 8 (eight) hours if needed for mild pain for up to 7 days. 21 tablet 0 Acetaminophen Extra Strength 500 MG tablet TAKE 1 TABLET (500 MG) ORALLY EVERY 6 HOURS NEEDED FOR FEVER OR PAIN 60 tablet 1 albuterol (Ventolin HFA) 108 (90 Base) MCG/ACT inhaler INHALE 2 PUFFS BY MOUTH EVERY 4 TO 6 HOURS NEEDED 18 g 0 atorvastatin (Lipitor) 40 MG tablet TAKE 1 TABLET BY MOUTH ONCE DAILY AT BEDTIME 30 tablet 2 azithromycin (Zithromax) 250 MG tablet Take two tablets on day one followed by one tablet from day two until gone. 6 tablet 0 baclofen (Lioresal) 10 MG tablet TAKE 1 TABLET (10 MG) BY MOUTH 3 TIMES DAILY NEEDED 90 tablet 0 Blood Pressure Monitoring (Omron 3 Series BP Monitor) device USE DIRECTED EVERY DAY 1 each 0 Buprenorphine HCl-Naloxone HCl (Suboxone) 8-[address] 1 Film under the tongue 2 times daily. Suboxone 4mg/1mg SL daily added to the 8/2mg BID regimen. Do not start before June 25, 2025. 14 Film 3 buprenorphine-naloxone (Suboxone) 4-1 MG per sublingual film Place 1 Film under the tongue Once perday. This is in addition to his 8/2mg BID regimen. Do not start before June 25, 2025. 7 Film 3 clonazePAM (KlonoPIN) 0.5 MG tablet Take 1 tablet by mouth in the morning and 1 tablet at noon and 1 tablet in the evening. ferrous sulfate 325 (65 Fe) MG EC tablet Do not crush, chew, or split.TAKE 1 TABLET (325 MG) BY MOUTH AT BEDTIME. 30 tablet 2 furosemide (Lasix) 20 MG tablet Take by mouth Once per day. hydrOXYzine HCl (Atarax) 25 MG tablet Take 25 mg by mouth 2 times daily. Take at least 8 hours apart ipratropium-albuterol (Duo-Neb) 0.5-2.5 mg/3 mL nebulizer solution INHALE 1 AMPULE USING A NEBULIZER THREE TIMES DAILY IN THE MORNING, AT NOON, AND AT BEDTIME NEEDED FOR WHEEZING 180 mL 0 meloxicam (Mobic) 15 MG tablet TAKE 1 TABLET BY MOUTH EVERY MORNING 30 tablet 3 mirtazapine (Remeron) 15 MG tablet Take 15 mg by mouth at bedtime. Nebulizers (Compressor/Nebulizer) [facility] [place] 1 by Inhalation route as needed Nutritional Supplements (Ensure Nutrition Shake) liquid take 1 can by Oral route 2 times every day pantoprazole (ProtoNix) 40 MG EC tablet TAKE 1 TABLET BY MOUTH EVERY MORNING. DO NOT CRUSH, CHEW ORSPLIT. 90 tablet 1 QUEtiapine (SEROquel) 100 MG tablet TAKE 1 TABLET BY MOUTH TWICE DAILY IN THE MORNING AND IN THE EVENING (AT 9 IN THE MORNING AND AT 6 IN THE EVENING) 60 tablet 3 QUEtiapine (SEROquel) 400 MG tablet Take 1 tablet by mouth at bedtime. risperiDONE (RisperDAL) 1 MG tablet Take 1 tab once 1 tablet 0 risperiDONE (RisperDAL) 3 MG tablet Take 3 mg by mouth Once per day. senna-docusate sodium (Senokot-S) 8.6-50 MG tablet TAKE 1 TABLET BY MOUTH IN THE MORNING AND AT BEDTIME IF NEEDED FOR CONSTIPATION 60 tablet 6 tamsulosin (Flomax) 0.4 MG 24 hr capsule TAKE 2 CAPSULES BY MOUTH ONCE DAILY 60 capsule 3 Tiotropium [place] (Spiriva Respimat) 2.5 MCG/ACT aerosol solution Inhale 2 puffs in the morning. venlafaxine XR (Effexor XR) 150 MG 24 hr capsule TAKE 1 CAPSULE (150 MG) BY MOUTH IN THE MORNING. DO NOT CRUSH OR CHEW. 30 capsule 10 venlafaxine XR (Effexor XR) 37.5 MG 24 hr capsule Take 37.5 mg by mouth Once per day. Do not crush or chew. Viagra 100 MG tablet TAKE 1 TABLET 1 HOUR BEFORE SEXUAL RELATIONS ONCE DAILY NEEDED. 8 tablet 5 zolpidem (Ambien) 5 MG tablet TAKE 1 TABLET (5 MG) BY MOUTH IF NEEDED AT BEDTIME FOR SLEEP. 30 tablet 0 No facility-administered encounter medications on file as of 07/04/2025. documented in this encounter Plan of Treatment Upcoming Encounters Date Type Department Care Team (Late st Contact Info) Description 07/23/2025 9:00 AM EST Office Visit [facility] [address] [place] [address] Alexander Jones MD [address] [place] [address] 07/24/2025 10:00 AM EST Office Visit [facility] OPTOM[facility] [address] [place] [address] Tory Garcia, OD [address] [place] [address] 08/12/2025 9:30 AM EST Office Visit [facility] D[facility] [address] [place] [address] Reji Manning, YOVANI [address] [place] [address] documented as of this encounter Goals Goal [...] Ann, RN documented as of this encounter Procedures Procedure Name Priority Date/Time Associated Diagnosis Comments LIMITED ORAL EVALUATION - PROBLEM FOCUSED Routine 07/04/2025 9:30 AM EST 11 EXTRACTION, ERUPTED TOOTH OR EXPOSED ROOT (ELEVATION/FORCEPS REMOVAL) Routine 07/04/2025 9:30 AM EST CASE PRESENTATION, DETAILED AND EXTENSIVE TREATMENT PLANNING Routine 07/04/2025 9:30 AM EST ADJUST COMPLETE DENTURE - MANDIBULAR Routine 07/04/2025 9:30 AM EST documented in this encounter Visit Diagnoses Not on filedocumented in this encounter Additional Health Concerns Assessment Noted Time PHQ-9 Depression Total Score: 17 025 11:37 AM EST documented as of this encounter Care Teams Automobile Repossessor Relationship Specialty Start Date End Date Vince Lockhart MD [address] [place] [address] PCP - General Internal Medicine 04/10/14 Radha Howard RN [address] [place] [address] Registered Nurse Family Medicine 05/12/25 Shelbi Santamaria 05/12/25 [facility] 12/29/23 documented as of this encounter
[2025-07-09] VITALS (11 sets, daily range): BP systolic 128–193; BP diastolic 65–93; PULSE 105–124; RESP 16–24; TEMP 36.2–37.2; O2SAT 88–100; BMI 25.4; BMI 28.3
--- NOTE | ~2025-07-09 | XR_ITS ---
EXAMINATION: XR CHEST 1 VIEW HISTORY: sob COMPARISON: Comparison is made with the prior examination dated 05/31/2025. FINDINGS: Two AP portable views of the chest performed at 9:38 AM are submitted. The lungs are expanded and clear. There is no pleural effusion, pneumothorax, or pulmonary vascular congestion. Again seen are bilateral foramen of Bochdalek hernias. The heart is normal in size. The bones are intact. XR/XR chest 1V IMPRESSION: No acute cardiopulmonary abnormality. Electronically signed by: Hemant Olsen MD 07/09/2025 09:53 AM [facility]
[2025-07-09] MEDS: Albuterol Sulfate 5 MG, Albuterol/Iprat 2.5/0.5MG 3 ML 3 ML INHALE (08:53)
--- NOTE | 2025-07-09 08:56 | ECG_ITS ---
Test Reason : sob Blood Pressure : */* mmHG Vent. Rate : 121 BPM Atrial Rate : 122 BPM P-R Int : 112 ms QRS Dur : 96 ms QT Int : 422 ms P-R-T Axes : * -47 82 degrees QTcB Int : 599 ms Sinus tachycardia Left axis deviation Incomplete right bundle branch block T wave abnormality, consider lateral ischemia Abnormal ECG When compared with ECG of 31-May-2025 12:52, QRS axis Shifted left T wave inversion now evident in Lateral leads Referred By: Scooby Brooks Electronically Signed By: AKASH SUAREZ MD
[2025-07-09] MEDS: Lactated Ringers 1,000 ML 999 ML IV (09:07)
[2025-07-09] MEDS: Magnesium Sulfate/H2O 2 GM/50 ML PIGGYBACK IV (09:07)
[2025-07-09] MEDS: Albuterol Sulfate 7.5 MG, Albuterol Sulfate (0.083%) 2.5 MG 10 MG INHALE (09:10)
--- NOTE | 2025-07-09 09:15 | PC.RT ---
Pt came in via ambulance for SOB. En route, pt was given duoneb and Solu-Medrol. Pt SATs 91% on RA. Audible wheezes and noted accessory muscle use. L/S inspiratory and expiratory wheezes throughout. Pt given 7.5 mg breathing tx per bronch protocol with no change. Per MD, 10 mg Albuterol given. Will continue to monitor pt status.
--- NOTE | 2025-07-09 09:16 | PC.NURSE ---
Upon patient arrival to ED, pt awake and alert, audible wheezing noted. +Tachypnea and tachycardia. RT at bedside on arrival and administered treatments. PIV in place from EMS, IV Mag and IV fluids started as ordered. Pt on full cafeteria monitor. Labs and EKG in progress. Antibiotics to follow.
--- NOTE | 2025-07-09 09:23 | ED.SOB ---
HPI - SOB/Dyspnea General Chief Complaint: Dyspnea Stated Complaint: sob x1d, wheeze, duoneb given Time Seen by Provider: 07/09/25 08:47 Source: patient, EMS, old records reviewed and unbundler Mode of arrival: EMS Limitations: no limitations History of Present Illness ED Provider: DR. Brooks HPI Narrative: 60-year-old male PMHx COPD/asthma, opiate dependence on Suboxone, GERD, anxiety, depression presented with flu-like symptoms and shortness of breath x1 day, +productive cough with clear sputum, shortness of breath despite using his own inhaler, patient was found sitting in the 80's% by EMS was given DuoNeb and Solu-Medrol in route by EMS as, no exposure to sick contacts, no recent travel, no lower extremity swelling or tenderness, no CP. On arrival patient appeared to be in mild respiratory distress, O2 sat of 89% with audible wheezing, patient met criteria for sepsis and sepsis protocol was activated. Related Data Home Medications ?Medication ?Instructions ?Recorded ?Confirmed ferrous sulfate 325 mg (65 mg 325 mg PO BEDTIME 01/25/24 05/09/25 iron) tablet,delayed release acetaminophen 500 mg tablet 500 mg PO Q6H PRN Pain 06/24/24 05/09/25 mirtazapine 15 mg tablet 15 mg PO BEDTIME 06/24/24 05/09/25 pantoprazole 40 mg tablet,delayed 40 mg PO DAILY@0630 06/24/24 05/09/25 release sildenafil 100 mg tablet (Viagra) 100 mg PO DAILY PRN Erectile 06/24/24 05/09/25 Dysfunction buprenorphine 4 mg-naloxone 1 mg 1 film sublingual DAILY@1200 11/21/24 05/09/25 sublingual film (Suboxone) hydroxyzine HCl 25 mg tablet 25 mg PO BID 11/21/24 05/09/25 risperidone 3 mg tablet 3 mg PO BEDTIME 11/21/24 05/09/25 buprenorphine 8 mg-naloxone 2 mg 1 film sublingual BID 05/09/25 05/09/25 sublingual film (Suboxone) clonazepam 0.5 mg tablet 0.5 mg PO TID 05/09/25 05/09/25 furosemide 20 mg tablet 20 mg PO DAILY 05/09/25 05/09/25 quetiapine 100 mg tablet 100 mg PO BID 05/09/25 05/09/25 quetiapine 400 mg tablet 400 mg PO BEDTIME 05/09/25 05/09/25 risperidone 1 mg tablet 1 mg PO DAILY 05/09/25 05/09/25 venlafaxine 150 mg 150 mg PO DAILY 05/09/25 05/09/25 capsule,extended release 24 hr venlafaxine 37.5 mg 37.5 mg PO DAILY 05/09/25 05/09/25 capsule,extended release 24 hr Previous Rx's ?Medication ?Instructions ?Recorded zolpidem 5 mg tablet 5 mg PO BEDTIME PRN insomnia 15 06/30/23 days #15 tabs levofloxacin 750 mg tablet 750 mg PO DAILY 5 days #5 tabs 05/10/25 prednisone 20 mg tablet 40 mg (2 x 20 mg) PO DAILY #6 tabs 05/10/25 albuterol sulfate 90 mcg/actuation 2 inh inhalation Q4-6H PRN 05/31/25 breath activated powder inhaler shortness of breath or wheezing #1 ea prednisone 20 mg tablet 20 mg PO DAILY 5 days #5 tabs 05/31/25 tiotropium bromide 2.5 2 puff inhalation DAILY #4 grams 06/27/25 mcg/actuation mist for inhalation (Spiriva Respimat) albuterol sulfate 90 mcg/actuation 2 puff inhalation Q4-6H PRN 06/30/25 aerosol inhaler (Ventolin HFA) Wheezing 30 days #1 ea Allergies Allergy/AdvReac Type Severity Reaction Status Date / Time ibuprofen Allergy Intermediate Stomach Verified 07/09/25 08:49 Upset penicillin V Allergy Intermediate rash Verified 07/09/25 08:49 Review of Systems Review of Systems: All other systems are reviewed and are negative Constitutional: Reports as per HPI and Reports no additional constitutional complaints Eyes: Reports as per HPI and Reports no additional eye complaints Reports system reviewed and no additional complaints, except as documented Cardiovascular: Reports as per HPI and Reports no additional cardiovascular complaints Respiratory: Reports as per HPI and Reports no additional respiratory complaints Gastrointestinal: Reports as per HPI and Reports no additional gastrointestinal complaints Genitourinary: Reports no additional female genitourinary complaints Musculoskeletal: Reports no additional musculoskeletal complaints Skin/Breast: Reports system reviewed and no additional complaints, except as docu Psychiatric: Reports no additional psychiatric complaints Endocrine: Reports no additional endocrine complaints Hematologic/Lymphatic: Reports no additional hematologic/lymphatic complaints Allergic/Immunologic: Reports no additional allergic/immunologic complaints Reports system reviewed and no additional complaints, except as documented and Reports Abnormal speech present [facility] Past Medical History Medical History COPD (chronic obstructive pulmonary disease) Acute pain of right shoulder Chronic low back pain without sciatica Hepatitis C Cocaine abuse Opioid dependence Finger lesion Chronic anemia Migraine Routine medical exam Lung mass Suicidal ideation Polysubstance abuse Chronic back pain BPH (benign prostatic hyperplasia) Nicotine dependence Cannabis use disorder, moderate, dependence Cocaine use disorder Pulmonary nodules Emphysema of lung Anxiety Depression Asthma Surgical History Hx of cholecystectomy Social History Social History Household Members: Spouse Housing: Apartment Do you presently have visiting nurse or other home services: Yes Alcohol intake: former Patient Tobacco Use Status: Current someday Tobacco user Tobacco use type: Cigarette Cigarettes Per Day: 2 Years Smoked: many years Smoked in Last 30 Days: No e-Cigarette/Vaping Use: Never Used Second Hand Smoke Exposure: No Use of substances other than those prescribed or required for medical reasons: No Substance Use Type: Crack/Cocaine Advance Directives: Yes Advance Directives on File: Yes Advance Directives Date on File: 01/18/23 service: No Current occupational status: unemployed Current occupation: right hand dominant Sexual orientation: Straight/Heterosexual Physical Exam Vital Signs: Vital Signs: Last Vital Signs Temp 98.9 F 07/09/25 08:47 Pulse 114 H 07/09/25 11:37 Resp 18 07/09/25 11:37 BP 135/72 07/09/25 09:35 Pulse Ox 93 07/09/25 11:22 O2 Del Method Nasal Cannula 07/09/25 11:22 O2 Flow Rate 2 07/09/25 11:22 BMI result Body Mass Index 25.4 Vital signs have been reviewed and appear to be correct. Blood pressure elevated. Heart rate elevated, Respiratory rate elevated, Temperature normal. Oxygen saturation normal. Appearance: Alert. Oriented X3. acute respiratory distress. Head: Normal external exam. Normocephalic. Atraumatic. No Thrasher signs noted. No raccoon eyes noted Eyes: PERRLA. EOMI. Conjunctiva and sclera normal. Eyelids normal. ENT: TM's Normal. Pharynx normal. Uvula midline. Moist mucous membranes. No trismus noted. No drooling noted. No muffled voice noted. Neck: Normal inspection. Neck supple. FROM. No adenopathy. Thyroid Normal. No meningeal signs. No neck mass noted. CVS: Normal heart rate and rhythm. Heart sound normal. No murmurs noted. Pulses normal throughout. Respiratory: mild respiratory distress. diffuse mild expiratory wheezing with prolonged expiration, mild accessory muscle usage noted and decreased air movement noted. Abdomen: Soft and nontender. Bowel sounds normal in all 4 quadrants. No distention noted. No organomegaly noted. No visible injury noted. Back: No CVA tenderness. Full range of motion noted. Skin: Skin warm and dry. Normal skin color. Normal skin turgor. No rashes/lesions/lacerations noted. Extremities: No lower extremity edema. Extremities exhibit normal range of motion. Extremities nontender. Neuro: Oriented X 3. Cranial nerve exam: II-XII are grossly intact No motor deficit. No sensory deficit. Reflexes normal. Course Reevaluation(s) Reevaluation #1: COPD exacerbation with hypoxia. Required 2 L of nasal cannula to keep his O2 sat above 90%. Feels much better after bronchodilator, Solu-Medrol, magnesium, empirical doxycycline. VBG was reviewed patient in mild respiratory acidosis. Chest x-ray shows no pneumonia. Medical admission. Time: 11:30 Medications Administered Discontinued Medications Generic Name Dose Route Start Last Admin Trade Name Freq PRN Reason Stop Dose Admin Albuterol Sulfate 7.5 mg/ 10 mg 07/09/25 09:06 07/09/25 09:10 Albuterol Sulfate 2.5 mg INHALE 07/09/25 09:07 10 mg ONCE ONE Administration Albuterol Sulfate 5 mg/ 0 mg 07/09/25 08:49 07/09/25 08:53 Albuterol/Ipratropium 3 ml INHALE 07/09/25 08:50 1 each ONCE ONE Administration Doxycycline Hyclate 100 mg/ 250 mls @ 166.67 mls/hr 07/09/25 08:55 07/09/25 11:10 Sodium Chloride IV 07/09/25 10:24 Infused ONCE ONE Infusion Lactated Ringer's 1,000 mls @ 999 mls/hr 07/09/25 09:00 07/09/25 10:36 Lr IV 07/09/25 10:00 Infused .Q1H1M ADRIEN Infusion Magnesium Sulfate 2 gm in 50 mls @ 150 mls/hr 07/09/25 08:55 07/09/25 09:32 Magnesium Sulfate/H2o IV 07/09/25 09:14 Infused ONCE ONE Infusion Levalbuterol HCl 2.5 mg 07/09/25 11:29 07/09/25 11:36 Levalbuterol Hcl 1.25 Mg/3 Ml Vial.Neb INHALE 07/09/25 11:30 2.5 mg ONCE ONE Administration Methylprednisolone Sodium Succinate 125 mg 07/09/25 09:26 07/09/25 09:32 Methylprednisolone Sod Succ 125 Mg/2 Ml Vial IVPUSH 07/09/25 09:27 125 mg ONCE ONE Administration Medical Decision Making Differential Diagnosis Differential Diagnoses: The differential diagnosis associated with the presentation includes ( Asthma, COPD exacerbation pneumonia, pneumothorax, pleural effusion, viral infection, electrolyte derangement, severe anemia.) Admission/Observation Consideration of admission/observation: Escalation of care including admission/observation considered Lab Data MDM Lab Attestation statement: I reviewed the patient's lab results. 07/09/25 09:29 07/09/25 09:30 Labs: Lab Results 07/09/25 07/09/25 07/09/25 Range/Units 09:02 09:29 09:30 WBC 5.5 (4.8-10.8) X10*3/uL RBC 3.99 L (4.60-5.80) X10*6/uL Hgb 11.5 L (14.0-18.0) g/dl Hct 34.9 L (42.0-52.0) % MCV 87.5 (80.0-98.0) fL MCH 28.8 (27.0-33.0) pg MCHC 33.0 (31.0-36.0) g/dl RDW 14.6 (11.0-16.0) % Plt Count 230 D (160-400) X10*3/uL MPV 8.7 L (9.4-12.4) fL Immature Gran % (Auto) 0.5 H (0.0-0.4) % Neut % (Auto) 72.0 (45-73) % Lymph % (Auto) 17.9 L (20-40) % [place] % (Auto) 7.8 (2-11) % Eos % (Auto) 1.1 (0-4) % Baso % (Auto) 0.7 (0-2) % Lymph # (Auto) 1.0 L (1.2-4.9) X10*3/uL [place] # (Auto) 0.4 (0.1-1.2) X10*3/uL Eos # (Auto) 0.1 (0.0-0.4) X10*3/uL Baso # (Auto) 0.0 (0.0-0.2) X10*3/uL Abs Immat Gran (auto) 0.03 (0.00-0.03) X10*3/uL Absolute Neuts (auto) 4.0 (2.0-8.3) x10*3/uL Absolute Nucleated RBC 0.000 (0.0-0.012) X10*3/uL Nucleated RBC % (auto) 0.0 (0.0-0.2) /100WBC VBG pH (7.32-7.43) VBG pCO2 mmHg VBG pO2 mmHg VBG HCO3 (22-26) mmol/L VBG O2 Saturation % VBG Base Excess mmol/L Sodium 138 (135-145) mmol/L Potassium 3.7 (3.3-5.1) mmol/L Chloride 103 (96-108) mmol/L Carbon Dioxide 25 (22-29) mmol/L Anion Gap 14 (12-20) BUN 10 (9-16) mg/dL Creatinine 0.89 (0.5-1.4) mg/dL Estim Creat Clear Calc 80.4 Estimated GFR > 60 Random Glucose 123 H (60-115) mg/dL Lactic Acid 1.4 (0.5-2.0) mmol/L Calcium 8.8 (8.4-10.2) mg/dL Total Bilirubin 0.2 (0.0-1.0) mg/dL Direct Bilirubin < 0.2 (0.0-0.5) mg/dL AST 26 (5-37) U/L ALT 10 (0-40) U/L Alkaline Phosphatase 78 (39-117) U/L Troponin I High Sens < 2.7 (<3.5-35.0) ng/L Total Protein 6.8 (6.5-8.0) g/dL Albumin 4.0 (3.5-5.0) g/dL Influenza Type A (PCR) NEGATIVE (Negative) Influenza Type B (PCR) NEGATIVE (Negative) RSV RNA Qual (PCR) NEGATIVE (Negative) SARS-CoV-2 RNA (RT-PCR) NEGATIVE (Negative) 07/09/25 Range/Units 10:48 WBC (4.8-10.8) X10*3/uL RBC (4.60-5.80) X10*6/uL Hgb (14.0-18.0) g/dl Hct (42.0-52.0) % MCV (80.0-98.0) fL MCH (27.0-33.0) pg MCHC (31.0-36.0) g/dl RDW (11.0-16.0) % Plt Count (160-400) X10*3/uL MPV (9.4-12.4) fL Immature Gran % (Auto) (0.0-0.4) % Neut % (Auto) (45-73) % Lymph % (Auto) (20-40) % [place] % (Auto) (2-11) % Eos % (Auto) (0-4) % Baso % (Auto) (0-2) % Lymph # (Auto) (1.2-4.9) X10*3/uL [place] # (Auto) (0.1-1.2) X10*3/uL Eos # (Auto) (0.0-0.4) X10*3/uL Baso # (Auto) (0.0-0.2) X10*3/uL Abs Immat Gran (auto) (0.00-0.03) X10*3/uL Absolute Neuts (auto) (2.0-8.3) x10*3/uL Absolute Nucleated RBC (0.0-0.012) X10*3/uL Nucleated RBC % (auto) (0.0-0.2) /100WBC VBG pH 7.30 L (7.32-7.43) VBG pCO2 46 mmHg VBG pO2 65 mmHg VBG HCO3 23 (22-26) mmol/L VBG O2 Saturation 90.0 % VBG Base Excess -2.8 mmol/L Sodium (135-145) mmol/L Potassium (3.3-5.1) mmol/L Chloride (96-108) mmol/L Carbon Dioxide (22-29) mmol/L Anion Gap (12-20) BUN (9-16) mg/dL Creatinine (0.5-1.4) mg/dL Estim Creat Clear Calc Estimated GFR Random Glucose (60-115) mg/dL Lactic Acid (0.5-2.0) mmol/L Calcium (8.4-10.2) mg/dL Total Bilirubin (0.0-1.0) mg/dL Direct Bilirubin (0.0-0.5) mg/dL AST (5-37) U/L ALT (0-40) U/L Alkaline Phosphatase (39-117) U/L Troponin I High Sens (<3.5-35.0) ng/L Total Protein (6.5-8.0) g/dL Albumin (3.5-5.0) g/dL Influenza Type A (PCR) (Negative) Influenza Type B (PCR) (Negative) RSV RNA Qual (PCR) (Negative) SARS-CoV-2 RNA (RT-PCR) (Negative) Independent Interpretation I performed an independent interpretation of an: Plain X-Ray ( chest: No acute cardiopulmonary abnormality) Radiology Impression Discussion of test interpretation with radiology: I have reviewed the radiologist's reading. Chronic Conditions Patient?s care impacted by: Other ( COPD/asthma/ smoking.) Critical Care Time Critical Care Time Critical Care Time: Yes Total Critical Care Time: 60 Attestation: The patient was critically ill with a high probability of imminent or life-threatening deterioration. I spent greater than 30 minutes of discontinuous time evaluating the patient, delivering critical care at the bedside, discussing evaluating data with consultants. Critical care time does not include time spent performing separately billable procedures or teaching. Time spent performing critical care was 60 minutes. Discharge Plan Discharge Clinical Impression: COPD exacerbation, Acute hypoxic respiratory failure Patient Disposition: Admitted As Inpatient
[2025-07-09 09:35] LABS: MANUAL DIFF FLAG NO
[2025-07-09 09:37] LABS: Hematocrit 34.9 % (42.0-52.0); Hemoglobin 11.5 g/dl (14.0-18.0); Imm Gran Abs Auto 0.03 X10*3/uL (0.00-0.03); Imm Gran Pct Auto 0.5 % (0.0-0.4); Lymphocytes Absolute Auto 1.0 X10*3/uL (1.2-4.9); Mean Corpuscular HGB Conc 33.0 g/dl (31.0-36.0); Mean Corpuscular Hemoglobin 28.8 pg (27.0-33.0); Mean Corpuscular Volume 87.5 fL (80.0-98.0); NRBC Abs Auto 0.000 X10*3/uL (0.0-0.012); NRBC Pct Auto 0.0 /100WBC (0.0-0.2); Platelet Count 230 X10*3/uL (160-400); Red Blood Count 3.99 X10*6/uL (4.60-5.80); White Blood Count 5.5 X10*3/uL (4.8-10.8)
--- OUTSIDE RECORDS SUMMARY | 2025-07-09 09:49 | XMS_ITS | Encounter Summary ---
Author Organization [employer] Address [address] [facility] [address]t [place] [address] Care Team Providers Care Gum Rolling Machine Tender Name Role Phone Vince Lockhart MD Primary Care Provide r Osiel Mendez PharmD Unavailable [phone] Radha Howard RN Unavailable Shelbi Santamaria Unavailable Reason for Visit * Reason Onset Date Comments Nurse Triage 03/21/2023 Encounter Details Date Type Department Care Team (Late st Contact Info) Description 03/21/2023 Telephone [facility] [address] [place], [place] [phone] Vince Lockhart MD [address] [place], [place] [phone] Nurse Triage Social History Tobacco Use Types [...] 03/28/23. I do not see Ultram in [facility] med list but there is an older script in [facility] for Tramadol from 2013. I see pt. [...] - 03/21/2023 12:25 PM EDT Tc from [facility] Care Symptom: Back Pain - Not From Injury Outcome: Schedule an appointment to be seen within 3 days Reason: Caller denied all higher acuity questions The caller accepted this outcome Please call [phone] documented in this encounter Plan of Treatment Upcoming Encounters Date Type Department Care Team (Late st Contact Info) Description 07/23/2025 9:00 AM EST Office Visit [facility] [address] [place] [address] Alexander Jones MD [address] [place] [address] 07/24/2025 10:00 AM EST Office Visit [facility] [address] [place] [address] TarkaTory, OD [address] [place] [address] 08/12/2025 9:30 AM EST Office Visit [facility] ADULT DENT[facility] [address] [place] [address] Reji Manning, DMD [address] [place] [address] documented as of this encounter Goals Goal [...] documented as of this encounter Care Teams Gum Rolling Machine Tender Relationship Specialty Start Date End Date Vince Lockhart MD [address] [place] [address] PCP - General Internal Medicine 04/10/14 Osiel Mendez PharmD [address] [place] [address] Pharmacist Internal Medicine 12/19/22 06/11/23 Radha Howard, GUERO [address] [place] [address] Registered Nurse Family Medicine 05/12/25 Shelbi Santamaria 05/12/25 [facility] 12/29/23 documented as of this encounter
--- OUTSIDE RECORDS SUMMARY | 2025-07-09 09:49 | XMS_ITS | Encounter Summary ---
Author Organization [employer] Address [address] [facility] [address]t [place] [address] Care Team Providers Care Typewriter Repairer Name Role Phone Vince Lockhart MD Primary Care Provide r Osiel Mendez PharmD Unavailable [phone] Radha Howard RN Unavailable [phone] Shelbi Santamaria Unavailable Reason for Visit * Reason Onset Date Comments Med Refill 05/16/2023 Encounter Details Date Type Department Care Team (Late st Contact Info) Description 05/16/2023 Telephone [facility] [address] [place], [place] [phone] Vince Lockhart MD [address] [place], [place] [phone] Med Refill Social History Tobacco Use Types [...] Description 07/23/2025 9:00 AM EST Office Visit [facility] [address] [place] [address] Alexander Jones MD [address] [place] [address] 07/24/2025 10:00 AM EST Office Visit [facility] [address] [place] [address] Tory Garcia, OD [address] [place] [address] 08/12/2025 9:30 AM EST Office Visit [facility] ADULT DENT[facility] [address] [place] [address] Reji Manning, DMD [address] [place] [address] documented as of this encounter Goals Goal Patient Goal Type Associated Problems Recent Progress Patient-Stated? Author Patient will adhere to medication regimen General Improving( 4:15 PM EDT) Osiel Vargas, Castro Note: Difficulty with taking medications daily due to no desire documented as of this encounter Visit Diagnoses Not on filedocumented in this encounter Additional Health Concerns Assessment Noted Time PHQ-9 Depression Total Score: 26 023 2:35 PM EDT documented as of this encounter Care Teams Typewriter Repairer Relationship Specialty Start Date End Date Vince Lockhart MD [address] [place] [address] PCP - General Internal Medicine 04/10/14 Osiel Mendez, MayteD [address] [place] [phone] Pharmacist Internal Medicine 12/19/22 06/11/23 Radha Howard RN [address] [place] [address] Registered Nurse Family Medicine 05/12/25 Shelbi Santamaria 05/12/25 [facility] 12/29/23 documented as of this encounter
--- OUTSIDE RECORDS SUMMARY | 2025-07-09 09:49 | XMS_ITS | Encounter Summary ---
Author Organization [employer] Address [address] [facility] [address]t [place] [address] Care Team Providers Care Screen Tacker Name Role Phone Vince Lockhart MD Primary Care Provide r Radha Howard RN Unavailable [phone] Shelbi Santamaria Unavailable Reason for Visit * Reason Onset Date Comments PT-1 08/28/2024 Encounter Details Date Type Department Care Team (Late st Contact Info) Description 08/28/2024 Telephone [facility] [address] [place], [place] [phone] Vince Lockhart MD [address] [place], [place] [phone] PT-1 Social History Tobacco Use Types Packs/Day [...] Y/N: Yes Provider name or facility name: [facility] Facility Address: [address] [place] [address] Escort needed: Y/N: No Do you have a wheelchair: Y/N: No If yes- Manual or electric: N/A Visits: Once a week documented in this encounter Plan of Treatment Upcoming Encounters Date Type Department Care Team ([facility] st Contact Info) Description 07/23/2025 9:00 AM EST Office Visit [facility] [address] [place] [address] Alexander Jones MD [address] [place] [address] 07/24/2025 10:00 AM EST Office Visit [facility] OPTOMET[facility] [address] [place] [address] Tory Garcia, OD [address] [place] [address] 08/12/2025 9:30 AM EST Office Visit [facility] ADULT DENTAL [address] [place] [address] Reji Manning, DMD [address] [place] [address] documented as of this encounter Goals Goal [...] documented as of this encounter Care Teams Screen Tacker Relationship Specialty Start Date End Date Vince Lockhart MD [address] [place] [address] PCP - General Internal Medicine 04/10/14 Radha Howard RN [address] [place] [address] Registered Nurse Family Medicine 05/12/25 Shelbi Santamaria 05/12/25 [facility] 12/29/23 documented as of this encounter
--- OUTSIDE RECORDS SUMMARY | 2025-07-09 09:49 | XMS_ITS | Encounter Summary ---
Author Organization [employer] Address [address] [facility] 7t [place] [address] Care Team Providers Care Nurseryperson Name Role Phone Vince Lockhart MD Primary Care Provide r Radha Howard RN Unavailable [phone] Shelbi Santamaria Unavailable Reason for Visit * Reason Onset Date Comments appt slip 05/08/2025 Encounter Details Date Type Department Care Team (Late st Contact Info) Description 05/08/2025 Telephone [facility] ADULT DENTAL [address] [place], [place] [phone] Nils Bower DDS [address] [place], [place] [phone] appt slip Social History Tobacco Use Types [...] Description 07/23/2025 9:00 AM EST Office Visit [facility] [address] [place] [address] Alexander Jones MD [address] [place] [address] 07/24/2025 10:00 AM EST Office Visit [facility] OPTOMETRY [address] [place] [address] Tory Garcia, OD [address] [place] [address] 08/12/2025 9:30 AM EST Office Visit [facility] ADULT DENT[facility] [address] [place] [address] Reji Manning, DMD [address] [place] [address] documented as of this encounter Goals [...] documented as of this encounter Care Teams Nurseryperson Relationship Specialty Start Date End Date Vince Lockhart MD [address] [place] [address] PCP - General Internal Medicine 04/10/14 Radha Howard RN [address] [place] [address] Registered Nurse Family Medicine 05/12/25 Shelbi Santamaria 05/12/25 [facility] 12/29/23 documented as of this encounter
--- OUTSIDE RECORDS SUMMARY | 2025-07-09 09:49 | XMS_ITS | Encounter Summary ---
Author Organization [employer] Address [address] [facility] [address]t [place] [address] Care Team Providers Care Pantograph Engraver Name Role Phone Vince Lockhart MD Primary Care Provide r Osiel Mendez PharmD Unavailable [phone] Radha Howard RN Unavailable [phone] Shelbi Santamaria Unavailable Reason for Visit * Reason Comments Med Refill Encounter Details Date Type Department Care Team (Late st Contact Info) Description 03/07/2023 Refill [facility] [address] [place], [place] [phone] Vince Lockhart MD [address] [place], [place] [phone] Difficulty sleeping Social History Tobacco Use Types [...] Description 07/23/2025 9:00 AM EST Office Visit [facility] [address] [place] [address] Alexander Jones MD [address] [place] [address] 07/24/2025 10:00 AM EST Office Visit [facility] OPT[facility] [address] [place] [address] TarkaTory, OD [address] [place] [address] 08/12/2025 9:30 AM EST Office Visit [facility] ADULT DENTAL [address] [place] [address] Reji Manning, DMD [address] [place] [address] documented as of this encounter Goals Goal [...] documented as of this encounter Care Teams Pantograph Engraver Relationship Specialty Start Date End Date Vince Lockhart MD [address] [place] [address] PCP - General Internal Medicine 04/10/14 Osiel Mendez, Castro [address] [place] [address] Pharmacist Internal Medicine 12/19/22 06/11/23 Radha Howard RN [address] [place] [address], [place] [address] Registered Nurse Family Medicine 05/12/25 Shelbi Santamaria 05/12/25 [facility] 12/29/23 documented as of this encounter
--- OUTSIDE RECORDS SUMMARY | 2025-07-09 09:49 | XMS_ITS | Encounter Summary ---
Author Organization [employer] Address 75 [facility] 7t [place] [address] Care Team Providers Care Interactive Project Manager Name Role Phone Vince Lockhart MD Primary Care Provide r Osiel Mendez PharmD Unavailable [phone] Radha Howard RN Unavailable Shelbi Santamaria Unavailable Reason for Visit * Reason Comments Med Refill Encounter Details Date Type Department Care Team (Late st Contact Info) Description 06/02/2023 Refill [facility] [address] [place], [place] [phone] Vince Lockhart MD 230 [place], [place] [phone] Depressive disorder Social History Tobacco Use Types [...] the past 12 months, has t he [employer], gas, oil or water company threatened to [...] EST Office Visit [facility] 230 [place] [address] Alexander Jones MD 230 [place] [address] 07/24/2025 10:00 AM EST Office Visit [facility] [address] [place] [address] Tory Garcia, OD 267 [place] [address] 08/12/2025 9:30 AM EST Office Visit [facility] ADULT DENTAL 230 [place] [address] Reji Manning, YOVANI 230 [place] [address] documented as of this encounter Goals Goal [...] documented as of this encounter Care Teams Interactive Project Manager Relationship Specialty Start Date End Date Vince Lockhart MD 230 [place] [address] PCP - General Internal Medicine 04/10/14 Osiel Mendez, PharmD 230 [place] [address] Pharmacist Internal Medicine 12/19/22 06/11/23 Radha Howard RN 230 [place] [address] Registered Nurse Family Medicine 05/12/25 Shelbi Santamaria 05/12/25 [facility] 12/29/23 documented as of this encounter
--- OUTSIDE RECORDS SUMMARY | 2025-07-09 09:49 | XMS_ITS | Encounter Summary ---
Author Organization [employer] Address 75 [facility] 7t [place] [address] Care Team Providers Care Manager Spanish Name Role Phone Vince Lockhart MD Primary Care Provide r Osiel Mendez PharmD Unavailable [phone] Radha Howard RN Unavailable Shelbi aSntamaria Unavailable Reason for Visit * Reason Onset Date Comments PT1 05/03/2023 Encounter Details Date Type Department Care Team (Late st Contact Info) Description 05/03/2023 Telephone [facility] 230 [place], [place] [phone] Vince Lockhart MD 230 [place], [place] [phone] PT1 Social History Tobacco Use Types Packs/Day [...] the past 12 months, has t he [employer], gas, oil or water company threatened to [...] 05/08 Time: 11:30 am Visits: n/a Address: [address] [place] [address] Facility: [facility] Wheel Chair: no Optomechanical Technician Needed: no backup administrator location confirmed: [address] [place] [address] documented in this encounter Plan of Treatment Upcoming Encounters Date Type Department Care Team ([facility] st Contact Info) Description 07/23/2025 9:00 AM EST Office Visit [facility] [address] [place] [address] Alexander Jones MD 230 [place] [address] 07/24/2025 10:00 AM EST Office Visit [facility] [address] [place] [address] Tory Garcia, OD 267 [place] [address] 08/12/2025 9:30 AM EST Office Visit [facility] ADULT DENTAL [address] [place] [address] Kerri Reji, DMD [address] [place] [address] documented as of this encounter Goals Goal [...] as of this encounter Care Teams Manager Spanish Relationship Specialty Start Date End Date Vince Lockhart MD [address] [place] [address] PCP - General Internal Medicine 04/10/14 Osiel Mendez, PharmD [address] [place] [address] Pharmacist Internal Medicine 12/19/22 06/11/23 Radha Howard, GUERO [address] [place] [address] Registered Nurse Family Medicine 05/12/25 Shelbi Santamaria 05/12/25 [facility] 12/29/23 documented as of this encounter
--- OUTSIDE RECORDS SUMMARY | 2025-07-09 09:49 | XMS_ITS | Encounter Summary ---
Author Organization [employer] Address 75 [facility] 7t [place] [address] Care Team Providers Care Fruit Harvest Worker Name Role Phone Vince Lockhart MD Primary Care Provide r Osiel Mendez PharmD Unavailable [phone] Radha Howard RN Unavailable [phone] Shelbi Santamaria Unavailable Reason for Visit * Reason Comments Med Refill Encounter Details Date Type Department Care Team (Late st Contact Info) Description 03/14/2023 Refill [facility] 230 [place], [place] [phone] Vince Lockhart MD 230 [place], [place] [phone] Pulmonary emphysema, unspecified emphysema type (CMS/HCC) Social [...] Description 07/23/2025 9:00 AM EST Office Visit [facility] 230 [place] [address] Alexander Jones MD 230 [place] [address] 07/24/2025 10:00 AM EST Office Visit [facility] OPTOMETRY [address] [place] [address] Tarka, Tory, OD 267 [place] [address] 08/12/2025 9:30 AM EST Office Visit [facility] ADULT DENTAL 230 [place] [address] Reji Manning, DMD 230 [place] [address] documented as of this encounter Goals Goal [...] as of this encounter Care Teams Fruit Harvest Worker Relationship Specialty Start Date End Date Vince Lockhart MD [address] [place] [address] PCP - General Internal Medicine 04/10/14 Osiel Mendez, Castro [address] [place] [address] Pharmacist Internal Medicine 12/19/22 06/11/23 Radha Howard, GUERO [address] [place] [address] Registered Nurse Family Medicine 05/12/25 Shelbi Santamaria 05/12/25 [facility] 12/29/23 documented as of this encounter
--- OUTSIDE RECORDS SUMMARY | 2025-07-09 09:49 | XMS_ITS | Encounter Summary ---
Author Organization [employer] Address 75 [facility] 7t [place] [address] Care Team Providers Care Services Account Manager Name Role Phone Vince Lockhart MD Primary Care Provide r Radha Howard RN Unavailable [phone] Shelbi Santamaria Unavailable Encounter Details Date Type Department Care Team (Late st Contact Info) Description 06/19/2023 Telephone [facility] 230 [place], [place] [phone] Vince Lockhart MD 230 [place], [place] [phone] Social History Tobacco Use Types Packs/Day Years [...] Description 07/23/2025 9:00 AM EST Office Visit [facility] 230 [place] [address] Alexander Jones MD [address] [place] [address] 07/24/2025 10:00 AM EST Office Visit [facility] OPTOMETRY 267 [place] [address] Tory Garcia, OD 267 [place] [address] 08/12/2025 9:30 AM EST Office Visit [facility] ADULT DENTAL 230 [place] [address] Reji Manning DMD 230 [place] [address] documented as of this encounter Goals Goal [...] documented as of this encounter Care Teams Services Account Manager Relationship Specialty Start Date End Date Vince Lockhart MD [address] [place], [place] [phone] PCP - General Internal Medicine 04/10/14 Radha Howard RN [address] [place] [address] Registered Nurse Family Medicine 05/12/25 Shelbi Santamaria 05/12/25 [facility] 12/29/23 documented as of this encounter
--- OUTSIDE RECORDS SUMMARY | 2025-07-09 09:49 | XMS_ITS | Encounter Summary ---
Author Organization [employer] Address 75 [facility] 7t [place] [address] Care Team Providers Care Second Baker Name Role Phone Vince Lockhart MD Primary Care Provide r Radha Howard RN Unavailable [phone] Shelbi Santamaria Unavailable Reason for Visit * Reason Comments Med Refill Encounter Details Date Type Department Care Team ([facility] st Contact Info) Description 11/27/2023 Refill [facility] 230 [place], [place] [phone] Vince Lockhart MD 230 [place], [place] [phone] Social History Tobacco Use Types Packs/Day Years [...] the past 12 months, has t he [employer], gas, oil or water company threatened to [...] 07/23/2025 9:00 AM EST Office Visit [facility] 230 [place] [address] Alexander Jones MD 230 [place] [address] 07/24/2025 10:00 AM EST Office Visit [facility] OPTOMETRY 267 [place] [address] Tory Garcia, OD 267 [place] [address] 08/12/2025 9:30 AM EST Office Visit [facility] ADULT DENTAL 230 [place] [address] Reji Manning DMD 230 [place] [address] documented as of this encounter Goals Goal [...] documented as of this encounter Care Teams Second Baker Relationship Specialty Start Date End Date Vince Lockhart MD 230 [place], [place] [phone] PCP - General Internal Medicine 04/10/14 Radha Howard RN 230 [place] [address] Registered Nurse Family Medicine 05/12/25 Shelbi Santamaria 05/12/25 [facility] 12/29/23 documented as of this encounter
--- OUTSIDE RECORDS SUMMARY | 2025-07-09 09:49 | XMS_ITS | Encounter Summary ---
Author Organization [employer] Address 75 [facility] 7t [place] [address] Care Team Providers Care Concrete Pump Operator Helper Name Role Phone Vince Lockhart MD Primary Care Provide r Osiel Mendez PharmD Unavailable Radha Howard RN Unavailable [phone] Shelbi Santamaria Unavailable Reason for Visit * Reason Onset Date Comments Medication Question 03/21/2023 Encounter Details Date Type Department Care Team ([facility] st Contact Info) Description 03/21/2023 Telephone [facility] 230 [place], [place] [phone] Vince Lockhart MD 230 [place], [place] [phone] Medication Question Social History Tobacco Use Types [...] PM EDT Telephone call placed to Adriana ([facility]). Explained that we are not prescribing [...] 12:46 PM EDT Tc from Adriana at [facility] calling in regards to message above. States pt is planning on going to hospital due to lack of pain control. Please contact adriana at [phone] * Telephone Encounter - Chioma Frank - 03/21/2023 12:28 PM EDT Tc from Adriana at [facility] requesting a call back, in regards to medication tramadol 50 mg. documented in this encounter Plan of Treatment Upcoming Encounters Date Type Department Care Team (Late st Contact Info) Description 07/23/2025 9:00 AM EST Office Visit [facility] 230 [place] [address] Alexander Jones MD [address] [place] [address] [place] [address] 07/24/2025 10:00 AM EST Office Visit [facility] OPTOMETRY 267 [place] [address] Tory Garcia, OD 267 [place] [address] 08/12/2025 9:30 AM EST Office Visit [facility] ADULT DENTAL 230 [place] [address] Kerri Reji, DMD 230 [place] [address] documented as of this encounter Goals Goal [...] documented as of this encounter Care Teams Concrete Pump Operator Helper Relationship Specialty Start Date End Date Vince Lockhart MD [address] [place] [address] PCP - General Internal Medicine 04/10/14 Osiel Mendez, PharmD [address] [place] [address] Pharmacist Internal Medicine 12/19/22 06/11/23 Radha Howard, GUERO [address] [place] [address] Registered Nurse Family Medicine 05/12/25 Shelbi Santamaria 05/12/25 [facility] 12/29/23 documented as of this encounter
--- OUTSIDE RECORDS SUMMARY | 2025-07-09 09:50 | XMS_ITS ---
Author Organization [employer] Address 75 [facility] 7t [place] [address] Care Team Providers Care Stencil Cutter Machine Name Role Phone Vince Lockhart MD Primary Care Provide r Radha Howard RN Unavailable [phone] Shelbi Santamaria Unavailable [facility] Status:Enrolled (Active) Start date:05/12/2025 Enrollment date:06/04/2025 Enrollment reason:ADT Feed Overview ADT- Pt admitted to [facility] 05/09[facility]25. Please outreach to patient. Case Team Name Relationship Phone Shelbi Santamaria(Responsible Staff) Continued Care and Services Coordination
--- OUTSIDE RECORDS SUMMARY | 2025-07-09 09:50 | XMS_ITS | Encounter Summary ---
Author Organization [employer] Address 75 [facility] 7t [place] [address] Care Team Providers Care Managing Consultant Name Role Phone Vince Lockhart MD Primary Care Provide r Radha Howard RN Unavailable [phone] Shelbi Santamaria Unavailable Reason for Visit * Reason Comments Med Refill Encounter Details Date Type Department Care Team ([facility] st Contact Info) Description 02/27/2025 Refill [facility] 230 [place], [place] [phone] Vince Lockhart MD 230 [place], [place] [phone] Pulmonary emphysema, unspecified emphysema type (CMS/HCC) Social [...] Description 07/23/2025 9:00 AM EST Office Visit [facility] 230 [place] [address] Alexander Jones MD 230 [place] [address] 07/24/2025 10:00 AM EST Office Visit [facility] OPTOMETRY [address] [place] [address] Tory Garcia, OD 267 [place] [address] 08/12/2025 9:30 AM EST Office Visit [facility] ADULT DENTAL 230 [place] [address] Reji Manning, YOVANI 230 [place] [address] documented as of this encounter Goals Goal [...] documented as of this encounter Care Teams Managing Consultant Relationship Specialty Start Date End Date Vince Lockhart MD [address] [place] [address] PCP - General Internal Medicine 04/10/14 Radha Howard RN [address] [place] [address] Registered Nurse Family Medicine 05/12/25 Shelbi Santamaria 05/12/25 [facility] 12/29/23 documented as of this encounter
--- OUTSIDE RECORDS SUMMARY | 2025-07-09 09:50 | XMS_ITS | Encounter Summary ---
Author Organization [employer] Address 75 [facility] 7t [place] [address] Care Team Providers Care Beam Racker Name Role Phone Vince Lockhart MD Primary Care Provide r Osiel Mendez PharmD Unavailable [phone] Radha Howard RN Unavailable [phone] Shelbi Santamaria Unavailable Reason for Visit * Reason Comments Med Refill Encounter Details Date Type Department Care Team (Late st Contact Info) Description 03/03/2023 Refill [facility] 230 [place], [place] [phone] Vince Lockhart MD 230 [place], [place] [phone] Depressive disorder; Difficulty sleeping Social History Tobacco [...] Description 07/23/2025 9:00 AM EST Office Visit [facility] 230 [place] [address] Alexander Jonse MD 230 [place] [address] 07/24/2025 10:00 AM EST Office Visit [facility] OPTOM[facility] 267 [place] [address] Tory Garcia, OD 267 [place] [address] 08/12/2025 9:30 AM EST Office Visit [facility] ADULT DENTAL 230 [place] [address] Reji Manning, DMD [address] [place] [address] documented as of this encounter Goals Goal [...] documented as of this encounter Care Teams Beam Racker Relationship Specialty Start Date End Date Vince Lockhart MD [address] [place] [address] PCP - General Internal Medicine 04/10/14 Osiel Mendez, PharmD [address] [place] [address] Pharmacist Internal Medicine 12/19/22 06/11/23 Radha Howard RN 230 [place] [address] Registered Nurse Family Medicine 05/12/25 Shelbi Santamaria 05/12/25 [facility] 12/29/23 documented as of this encounter
--- OUTSIDE RECORDS SUMMARY | 2025-07-09 09:50 | XMS_ITS | Encounter Summary ---
Author Organization [employer] Address 75 [facility] 7t [place] [address] Care Team Providers Care Supervisor Hot Dip Tinning Name Role Phone Vince Lockhart MD Primary Care Provide r Osiel Mendez PharmD Unavailable [phone] Radha Howard RN Unavailable [phone] Shelbi Santamaria Unavailable Reason for Visit * Reason Comments Med Refill Encounter Details Date Type Department Care Team (Late st Contact Info) Description 03/01/2023 Refill [facility] 230 [place], [place] [phone] Vince Lockhart MD 230 [place], [place] [phone] Depressive disorder Social History Tobacco Use Types [...] [facility] documented in this encounter Plan of Treatment Upcoming Encounters Date Type Department Care Team (Late st Contact Info) Description 07/23/2025 9:00 AM EST Office Visit [facility] [address] [place] [address] Alexander Jones MD 230 [place] [address] 07/24/2025 10:00 AM EST Office Visit [facility] OPTOMETRY 267 [place] [address] Tory Garcia, OD [address] [place] [address] 08/12/2025 9:30 AM EST Office Visit [facility] ADULT DENTAL [address] [place] [address] Reji Manning, DMD [address] [place] [address] documented as of this encounter Goals Goal [...] as of this encounter Care Teams Supervisor Hot Dip Tinning Relationship Specialty Start Date End Date Vince Lockhart MD 230 [place] [address] PCP - General Internal Medicine 04/10/14 Osiel Mendez, Castro 230 [place] [address] Pharmacist Internal Medicine 12/19/22 06/11/23 Radha Howard RN 230 [place] [address] Registered Nurse Family Medicine 05/12/25 Shelbi Santamaria 05/12/25 [facility] 12/29/23 documented as of this encounter
--- OUTSIDE RECORDS SUMMARY | 2025-07-09 09:50 | XMS_ITS | Encounter Summary ---
Author Organization [employer] Address 75 [facility] 7t [place] [address] Care Team Providers Care Vice Chairman Name Role Phone Vince Lockhart MD Primary Care Provide r Radha Howard RN Unavailable [phone] Shelbi Santamaria Unavailable Reason for Visit * Reason Comments Med Refill Encounter Details Date Type Department Care Team (Late st Contact Info) Description 07/08/2025 Refill [facility]INE 230 [place], [place] [phone] Alexander Jones MD 230 [place], [place] [phone] Uncomplicated opioid dependence (CMS/HCC) (HCC) Social History Tobacco Use Types Packs/Day Years [...] Description 07/23/2025 9:00 AM EST Office Visit [facility]INE 230 [place] [address] Alexander Jones MD 230 [place] [address] 07/24/2025 10:00 AM EST Office Visit [facility] OPTOMETRY [address] [place] [address] Tory Garcia, OD 267 [place] [address] 08/12/2025 9:30 AM EST Office Visit [facility] ADULT DENTAL 230 [place] [address] Reji Manning DMD 230 [place] [address] documented as of this encounter Goals Goal [...] documented as of this encounter Care Teams Vice Chairman Relationship Specialty Start Date End Date Vince Lockhart MD 230 [place] [address] PCP - General Internal Medicine 04/10/14 Radha Howard RN [address] [place] [address] Registered Nurse Family Medicine 05/12/25 Shelbi Santamaria 05/12/25 [facility] 12/29/23 documented as of this encounter
--- OUTSIDE RECORDS SUMMARY | 2025-07-09 09:50 | XMS_ITS | Encounter Summary ---
Author Organization [employer] Address [address] [facility] [address] 7t [place] [address] Care Team Providers Care Franchise Sales Representative Name Role Phone Vince Lockhart MD Primary Care Provide r Radha Howard RN Unavailable [phone] Shelbi Santamaria Unavailable Encounter Details Date Type Department Care Team (Late st Contact Info) Description 11/22/2024 Orders Only [facility] MEDICINE 230 [place] [address] Georgina Ann, GUERO Uncomplicated opioid dependence (CMS/HCC) [...] Description 07/23/2025 9:00 AM EST Office Visit [facility] MEDICINE 230 [place] [address] Alexander Jones MD 230 [place] [address] 07/24/2025 10:00 AM EST Office Visit [facility] OPTOMETRY [address] [place] [address] Tory Garcia, OD 267 [place] [address] 08/12/2025 9:30 AM EST Office Visit [facility] ADULT DENTAL 230 [place] [address] Reji Manning, YOVANI 230 [place] [address] documented as of this encounter Goals Goal [...] documented as of this encounter Care Teams Franchise Sales Representative Relationship Specialty Start Date End Date Vince Lockhart MD 230 [place], [place] [phone] PCP - General Internal Medicine 04/10/14 Radha Howard RN 230 [place] [address] Registered Nurse Family Medicine 05/12/25 Shelbi Santamaria 05/12/25 [facility] 12/29/23 documented as of this encounter
--- OUTSIDE RECORDS SUMMARY | 2025-07-09 09:50 | XMS_ITS | Encounter Summary ---
Author Organization [employer] Address 75 [facility] 7t [place] [address] Care Team Providers Care Business Analytics Manager Name Role Phone Vince Lockhart MD Primary Care Provide r Radha Howard RN Unavailable [phone] Shelbi Santamaria Unavailable Reason for Visit * Reason Comments Care Management C3CM- FOLLOW UP CALL Encounter Details Date Type Department Care Team ([facility] Contact Info) Description 07/09/2025 Patient Outreach [facility]INE 230 [place], [place] [phone] Vince Lockhart MD 230 [place] [address] Care Management (C3CM- FOLLOW UP CALL ) Social History Tobacco Use Types Packs/Day Years [...] as of this encounter Progress Notes * Radha Howard RN - 07/09/2025 8:57 AM EST CM Radha Howard RN placed outbound call to patient. Patient's name, and address confirmed. Patient states is currently at [facility] at ER. Reports being seen for knee pain. Per patient just went in this morning. Call then dropped. CM returned call to patient to ask to return callafter discharge. No answer, LVM requesting patient return call after discharge. CM to placed outbound call next week since office closed for [place] Holiday 07/10 and 07/11. CM reinforced direct contact information or CHW for any additional questions or concerns. [facility]. Patient provided with after-hours line for [facility], , which offer night time triage service and option to transfer to aeronautical products sales engineer provider if needed. A follow up call will be placed within 10 days, patient agrees with plan. documented in this encounter Plan of Treatment Upcoming Encounters Date Type Department Care Team (Late st Contact Info) Description 07/23/2025 9:00 AM EST Office Visit [facility]INE [address] [place] [address] Alexander Jones MD 230 [place] [address] 07/24/2025 10:00 AM EST Office Visit [facility] OPTOMETRY [address] [place] [address] TarkaTory, OD 267 [place] [address] 08/12/2025 9:30 AM EST Office Visit [facility] ADULT DENTAL [address] [place] [address] Reji Manning, DMD [address] [place] [address] documented as of this encounter Goals Goal [...] documented as of this encounter Care Teams Business Analytics Manager Relationship Specialty Start Date End Date Vince Lockhart MD 230 [place] [address] PCP - General Internal Medicine 04/10/14 Radha Howard RN [address] [place] [address] Registered Nurse Family Medicine 05/12/25 Shelbi Santamaria 05/12/25 [facility] 12/29/23 documented as of this encounter
--- OUTSIDE RECORDS SUMMARY | 2025-07-09 09:50 | XMS_ITS | Encounter Summary ---
Author Organization [employer] Address [address] [place] [address] Care Team Providers Care E Learning Coordinator Name Role Phone Vince Lockhart MD Primary Care Provide r Radha Howard RN Unavailable [phone] hSelbi Santamaria Unavailable Reason for Visit * Reason Onset Date Comments PT-1 07/01/2024 Encounter Details Date Type Department Care Team (Late st Contact Info) Description 07/01/2024 Telephone [facility] [address], [place] [phone] Vince Lockhart MD [address] [place], [place] [phone] PT-1 Social History Tobacco Use Types Packs/Day [...] Y/N: Yes Provider name or facility name: [facility] Address: [address] [place] [address] Escort needed: Y/N: No Do you have a wheelchair: Y/N: No If yes- Manual or electric: N/A Visits: 1 every 3 months documented in this encounter Plan of Treatment Upcoming Encounters Date Type Department Care Team (Late st Contact Info) Description 07/23/2025 9:00 AM EST Office Visit [facility] [address] [place] [id number] Alexander Jones MD [address] [place] [id number] 07/24/2025 10:00 AM EST Office Visit [facility] [address] [place] [address] Tory Garcia, OD [address] [place] [address] 08/12/2025 9:30 AM EST Office Visit [facility] [address] [place] [address] Reji Manning, DMD [address] [place] [address] documented as of this encounter Goals Goal [...] documented as of this encounter Care Teams E Learning Coordinator Relationship Specialty Start Date End Date Vince Lockhart MD [address] [place] [address] PCP - General Internal Medicine 04/10/14 Radha Howard RN [address] [place] [address] Registered Nurse Family Medicine 05/12/25 Shelbi Santamaria 05/12/25 [facility] 12/29/23 documented as of this encounter
--- OUTSIDE RECORDS SUMMARY | 2025-07-09 09:50 | XMS_ITS | Clinical Summary ---
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 Nebulizers (Compressor/Nebul izer) [facility] use 1 by Inhalation route as needed [...] THE EVENING) 60 tablet 3 024 Active zolpidem (Ambien) 5 MG tabletIndications [...] 1 tab once 1 tablet 024 Active pantoprazole (ProtoNix) 40 MG [...] CHEW. 30 capsule 10 025 2025 Active baclofen (Lioresal) 10 MG tabletIndications :Cocaine abuse (HCC) TAKE 1 TABLET (10 MG) BY MOUTH 3 TIMES DAILY NEEDED 90 tablet 025 Active ferrous sulfate 325 (65 Fe) MG EC tablet Do not crush, chew, or split.TAKE 1 TABLET (325 MG) BY MOUTH AT BEDTIME. 30 tablet 2 025 Active risperiDONE (RisperDAL) 3 MG tablet Take 3 mg by mouth Once per day. Active hydrOXYzine HCl (Atarax) 25 MG tablet Take 25 mg by mouth 2 times daily. Take at least 8 hours apart Active mirtazapine (Remeron) 15 MG tablet Take 15 mg by mouth at bedtime. Active furosemide (Lasix) 20 MG tablet Take by mouth Once per day. Active venlafaxine XR (Effexor XR) 37.5 MG 24 hr capsule Take 37.5 mg by mouth Once per day. Do not crush or chew. Active ipratropium-albut tawanda (Duo-Neb) 0.5-2.5 mg/3 mL nebulizer solutionIndicatio ns:Pulmonary emphysema, unspecified emphysema type INHALE 1 AMPULE USING A NEBULIZER THREE TIMES DAILY IN THE MORNING, AT NOON, AND AT BEDTIME NEEDED FOR WHEEZING 180 mL Active Viagra 100 MG tablet TAKE 1 TABLET 1 HOUR BEFORE SEXUAL RELATIONS ONCE DAILY NEEDED. 8 tablet 5 Active albuterol (Ventolin HFA) 108 (90 Base) MCG/ACT inhaler INHALE 2 PUFFS BY MOUTH EVERY 4 TO 6 HOURS NEEDED 18 g Active tamsulosin (Flomax) 0.4 MG 24 hr capsuleIndication s:Benign prostatic hyperplasia with nocturia TAKE 2 CAPSULES BY MOUTH ONCE DAILY 60 capsule 3 Active QUEtiapine (SEROquel) 400 MG tablet Take 1 tablet by mouth at bedtime. Active Tiotropium [place] (Spiriva Respimat) 2.5 MCG/ACT aerosol solution Inhale 2 puffs in the morning. Active clonazePAM (KlonoPIN) 0.5 MG tablet Take 1 tablet by mouth in the morning and 1 tablet at noon and 1 tablet in the evening. Active atorvastatin (Lipitor) 40 MG tabletIndications :Mixed hyperlipidemia TAKE 1 TABLET BY MOUTH ONCE DAILY AT BEDTIME 30 tablet 2 Active Buprenorphine HCl-Naloxone HCl (Suboxone) 8-2 MG SL filmIndications:U ncomplicated opioid dependence (CMS/HCC) ([facility]) Place 1 Film under the tongue 2 times daily. Suboxone 4mg/1mg SL daily added to the 8/2mg BID regimen. Do not start before June 25, 2025. 14 Film 3 025 2025 Active buprenorphine-nal oxone (Suboxone) 4-1 MG per sublingual filmIndications:U ncomplicated opioid dependence (CMS/HCC) ([facility]) Place 1 Film under the tongue Once per day. This is in addition to his 8/2mg BID regimen. Do not start before June 25, 2025. 7 Film 3 025 2025 Active azithromycin (Zithromax) 250 MG tablet Take two tablets on day one followed by one tablet from day two until gone. 6 tablet 025 2024 Active acetaminophen (Tylenol) 500 MG tablet Take 1 tablet (500 mg) by mouth every 8 (eight) hours if needed for mild pain for up to 7 days. 21 tablet 025 2024 Active atorvastatin (Lipitor) 40 MG tabletIndications :Mixed hyperlipidemia TAKE 1 TABLET BY MOUTH AT BEDTIME 30 tablet 4 025 2024 Discontinued buprenorphine-nal oxone (Suboxone) 4-1 MG per sublingual filmIndications:U ncomplicated opioid dependence (CMS/HCC) (HCC) Place 1 Film under the tongue Once per day for 28 days. This is in addition to his 8/2mg BID regimen. Do not start before May 28, 2025. 7 Film 3 025 2024 Discontinued(R eorder (will not trigger notification to Pharmacy)) Buprenorphine HCl-Naloxone HCl (Suboxone) 8-2 MG SL filmIndications:U ncomplicated opioid dependence (CMS/HCC) (HCC) Place 1 Film under the tongue 2 times daily for 28 days. Suboxone 4mg/1mg SL daily added to the 8/2mg BID regimen. Do not start before May 28, 2025. 14 Film 3 025 2024 Discontinued(R eorder (will not trigger notification to Pharmacy)) buprenorphine-nal oxone (Suboxone) 4-1 MG per sublingual filmIndications:U ncomplicated opioid dependence (CMS/HCC) (HCC) Place 1 Film under the tongue Once per day. This is in addition to his 8/2mg BID regimen. 7 Film 025 2024 Discontinued(R eorder (will not trigger notification to Pharmacy)) Buprenorphine HCl-Naloxone HCl (Suboxone) 8-2 MG SL filmIndications:U ncomplicated opioid dependence (CMS/HCC) (HCC) Place 1 Film under the tongue 2 times daily. Suboxone 4mg/1mg SL daily added to the 8/2mg BID regimen. 14 Film 025 2024 Discontinued(R eorder (will not trigger notification to Pharmacy)) buprenorphine-nal oxone (Suboxone) 4-1 MG per sublingual filmIndications:U ncomplicated opioid dependence (CMS/HCC) (HCC) Place 1 Film under the tongue Once per day. This is in addition to his 8/2mg BID regimen. Do not start before June 18, 2025. 7 Film 025 2024 Discontinued(R eorder (will not trigger notification to Pharmacy)) Buprenorphine HCl-Naloxone HCl (Suboxone) 8-2 MG SL filmIndications:U ncomplicated opioid dependence (CMS/HCC) ([facility]) Place 1 Film under the tongue 2 times daily. Suboxone 4mg/1mg SL daily added to the 8/2mg BID regimen. Do not start before June 18, 2025. 14 Film 025 2024 Discontinued(R eorder [...] Plan (01/28/2025 10:00 AM EDT): Evaluated by [facility] 12/2024 s/p steroid injections Sleep [...] positive. Under the care of Dr Gerber Research Kennel Supervisor kathleen greene 04/16/2024 who recommended Apixaban 5 mg po BID x 3 months and follow up with him. Pt reports compliance with it. Repeat CT 06/24/2024 showed: IMPRESSION: 1. No central or segmental pulmonary emboli. 2. Mild centrilobular emphysema. VTE: negative. Acute pain of right shoulder 01/09/2024 Assessment & Plan (01/09/2024 10:15 AM EDT): Seen at our [facility] 01/04/2024 Plain films showed: No acute [...] PET CT , Pt referred back to [facility] for consideration of lung biopsy he is a patient of Dr. Gerber. While in the Hospital Pt had a repeat Chest CT 11/29/2023 ( [facility] [place] that showed: IMPRESSION: 1. Near complete [...] PET CT , Pt referred back to [facility] for consideration of lung biopsy he is a patient of Dr. Gerber. While in the Hospital Pt had a repeat Chest CT 11/29/2023 ( [facility] ) that showed: IMPRESSION: 1. Near complete [...] biopsy was aborted. Pt has appointment with Research Kennel Supervisor Dr. Gerber this Monday at 10:15 AM [...] PET CT Ordered, Pt referred back to [facility] for consideration of lung biopsy he [...] Pt tells me has an appointment with [facility] for Behavioral health 09/26/2023 I have [...] Pt tells me has an appointment with [facility] for Behavioral health next week, I [...] insomnia Pt apparently has an appointment with [facility] for Behavioral health on Monday, I [...] 3. Nonobstructing bilateral nephrolithiasis. Will refer to [facility] Assessment & Plan (10/03/2023 9:51 [...] obtain MRI lumbar spine Will refer to [facility] Assessment & Plan (08/08/2023 10:32 [...] ma jony depressive disorder with psychotic features ([facility]/HCC) 12/16/2022 Assessment & Plan (01/28/2025 10:06 AM [...] in services. PLAN: 1. Follow up with [facility]: Recommended for follow-up: during AUD clinic appt [...] seen by a therapist and psychiatrist at [facility]; awaiting follow-up appointments. 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 Patient has information about [facility] and [facility]. At this time Augustin Vital [...] out help PLAN: 1. Follow up with [facility]: Not recommended for follow-up 2. Patient goal is to remain sober 3. Behavioral Recommendations a. Comply with medication b. Attend groups c. Engage in therapy and psychiatry d. Utilize swimming coach or instructor as a support e. May reach out to [facility] for additional support Assessment & Plan (10/03/2022 5:03 PM EDT): Sent to ED/section 12a form filled out. Called ambulance and [facility] ED for soft sign out Benign prostatic [...] Unclear current meds, no discharge summary from [facility] available. Spoke with [facility] crisis prep room supervisor Jaci And suggested to send to [...] WNL. Pt was also referred to a clinical specialist to r/o hematologic conditions. vs anemia [...] WNL. Pt was also referred to a clinical specialist to r/o hematologic conditions. vs anemia [...] WNL. Pt was also referred to a clinical specialist to r/o hematologic conditions. vs anemia [...] index finger. initially evaluated at [facility] for consideration of excision. They recommended pt see a maintenance shop technician. he was seen by a local maintenance shop technician Dr Ortiz who recommended a plastic surgeon [...] Hospital discharge follow-up 08/01/2022 Assessment & Plan (05/23/2025 10:29 AM EST): Assessment & Plan (01/09/2024 10:35 AM EDT): He was admitted to [facility] from 11/28-12/14 due to acute metabolic [...] and COPD exacerbation he was transferred to [facility] 12/16/2023 psychiatric siu where he remained until 12/28/2023 His medications were adjusted and once stable he was discharged. Pt today reports he feels good, is back at [employer]abapt[employer] and feels much better. No concerns Assessment & Plan (07/04/2023 4:14 PM EST): Here after a recent Hospital admission where he was admitted for depression and underlying Bipolar disorder Assessment & Plan (04/18/2023 11:50 AM EDT): Patient here for a HDF admitted to [facility] from 04/01 until 04/03 presented via EMS for increased SOB. Admitted for COPD exacerbation, started on nebs, steroids, and cough medication. Discharged home on 2 more days of azithromycin, prednisone and codeine/guaifenesin for cough. Patient was then admitted to [facility] from 04/05 until 04/07 with viral URI and COPD exacerbation. Treated with prednisone and azithromycin x 3 days. Given Breo, Spiriva and Duonebs prn. Patient improved and ambulated w/o difficulty. Discharged on 3 more days of prednisone, Spiriva, Symbicort and albuterol. Discharged home to f/u [facility] PCP. Pt was seen by [...] HDF, recently admtted and discharged 02/[address] [facility] after he presented with c/o chest and [...] 12 in the ED and admitted to [facility] from 06/21 to 07/08 for severe [...] stay. Patient discharged home to F/U with [facility]. Patient reports feeling b anson since discharge. Using medications prescribed at discharge, and reports he is in need of refills. Patient gets help from nurse to administer medications. Patient reports having F/U with a counselor however reports that appointment is in [place] and reports interest in getting counselor or psych treatment at [facility]. Pulmonary emphysema 06/14/2022 Assessment & Plan [...] PET/CT or biopsy. I referred back to [facility] Pulmonology department since he is [...] PET/CT or biopsy. I referred back to [facility] Pulmonology department since he is [...] PET/CT or biopsy. I referred back to [facility] Pulmonology department since he is [...] PET/CT or biopsy. I referred back to [facility] Pulmonology department since he is a patient of Buzz Barcenas and I ordered a PET-CT but this was not done ( pt was admitted to the Hospital ) Repeat Chest CT at [facility] showed: IMPRESSION: 1. Near complete resolution of [...] or biopsy. I have referred back to [facility] Pulmonology department since he is [...] he no showed Recently hospitalized 01/16/[address] [facility] for COPD exacerbation as well as substance [...] twice, no showed Recently hospitalized 01/16/[address] [facility] for COPD exacerbation as well as substance [...] at our [facility] tomorrow Recent test at [facility] 03/24/2023 was positive for Cocaine Patient was referred for our [facility] Cocaine support group. I had a explained to patient that he is not a good candidate for Narcotics given his Hx of substance abuse and active use of Cocaine Assessment & Plan (03/28/2023 1:01 PM EDT): Previous visit he told me he was not using Recent test at [facility] 03/24/2023 was positive for Cocaine Patient was [...] Plan (02/07/2023 12:55 PM EDT): Admitted to [facility] 01/16/2023 for COPD exacerbation in the setting of ongoing cocaine abuse Pt referred to the [facility] Assessment & Plan (10/03/2022 5:03 [...] spoke with pt's VNA from [facility] . Pt is already scheduled to see [...] (01/09/2024 10:18 AM EDT): Pt admitted to [facility] for Acute hypoxic respiratory failure and COPD [...] chest x-ray for resolution We contacted his Research Kennel Supervisor Dr. Gerber. He was given an appointment for this Monday at 10:15 AM I contacted his VNA who will be arranging transportation for him. Obtain Plain x-ray of chest for f/u Pneumonia. Substance-related disorder ([facility]) 11/21/2022 05/30/2023 Assessment & Plan (2023 12:00 [...] disorder with psychotic features without prior episode ([facility]) 01/09/2012 05/30/2023 Assessment & Plan (05/16/2023 3:03 [...] intervention, Augustin agreed. Patient has Psychiatrist at [facility] but his VNA adriana has not [...] obtain help. PLAN: 1. Follow up with [facility]: Recommended for follow-up: during OBAT appt 2. Patient goal is to imporve mental health and become sober 3. Behavioral Recommendations a. Crisis Evaluation b. Taking Psych meds as prescribed c. Keeping in touch with -MR and I-Z[facility] Assessment & Plan (04/04/2023 4:02 PM EDT): Patient here for a follow up He has a VNA from [facility] . He was supposed to see a [...] and others were modified. Previously admitted to [facility] from 06/21 to 07/08 for severe depression with SI and planned to OD on pills. Patient reported his son was murdered and he fell into deep depression, and relapsed to using cocaine daily. Assessment & Plan (03/07/2023 1:41 PM EDT): Patient here for a follow up I spoke with pt's VNA from [facility] . Pt is already scheduled to see a psychotherapist ( Brian ) tomorrow 03/08/2023 and a Psychiatrist (Bakari Sloan ) via Telehealth on 03/23/2023 I have agreed to refill his Klonopin 0.5 mg po BID GRANTA reasurred me she will count them and placed them in a lock box. I also refilled his Hydroxyzine and will continue to refill his psychiatric medications until he sees a psychiatrist. While in the Hospital he was continued on his home medication regimen and new meds were added and others were modified Pt promised not to miss his appointments Previously admitted to [facility] from 06/21 to 07/08 for severe depression with SI and planned to OD on pills. Patient reported his son was murdered and he fell into deep depression, and relapsed to using cocaine daily. Assessment & Plan (02/07/2023 12:59 PM EDT): Patient here for a follow up Previously admitted to [facility] from 06/21 to 07/08 for severe [...] he was seeing Dr Jeffery Harkins in [place] The recommendation from [facility] is that once patient was stable [...] tells me has a follow up at [facility] on 08/17/2022 at 1:30 PM was also sectioned 12 in the ED and admitted to [facility] from 06/21 to 07/08 for severe [...] stay. Patient discharged home to F/U with [facility]. Prior to this admission pt told me he was seeing Dr Jeffery Harkins in [place] Prior to his admission he was on a lower dose of Seroquel (300 mg at bedtime plus 100 mg at bedtime). He was also on a higher dose of Mirtazapine of 30 mg at bedtime, Paxil 30 mg at HS and Klonopin 1 mg BID prescribed by Dr Jeffery Harkins. The recommendation from [facility] is that once patient was stable [...] organization. Date Type Department Care Team Description 07/09/2025 Patient Outreach [facility] MEDICINE [address] [place] [phone] Vince Lockhart MD Care Management (C3CM- FOLLOW UP CALL ) 07/08/[address] [facility] MEDICINE [address] [place] [address] [phone] Alexander Jones MD Uncomplicated opioid dependence (CMS/HCC) (HCC) 07/04/2025 9:30 AM EST Office Visit [facility] ADULT DENTAL [address] [place] [address] [phone] Nils Bower DDS 07/04/[address] [facility] ADULT DENTAL [address] [place] [phone] Challa request for script to be sent to different pharm 07/03/2025 Patient Outreach [facility] MEDICINE [address] [place] [phone] Vince Lockhart MD Care Coordination (C3 -[facility] Shelbi Santamaria telephone call outreach) 07/02/2025 9:00 AM EST Office Visit [facility] MEDICINE [address] [place] [address] [phone] Alexander Jones MD Uncomplicated opioid dependence (CMS/HCC) (HCC) (Primary Dx) 06/26/2025 Patient Outreach [facility] MEDICINE [address] [place] [phone] Vince Lockhart MD Care Coordination (C3 [facility] Shelbi Santamaria pt 1) 06/25/2025 9:00 AM EST Office Visit [address] [phone] Alexander Jones MD Uncomplicated opioid dependence (CMS/HCC) (HCC) (Primary Dx) 06/25/2025 Patient Outreach [facility] MEDICINE [address] [place] [address] [phone] Vince Lockhart MD 06/25/[address] [facility] MEDICINE [address] [place] [address] [phone] Vince Lockhart MD fyi 06/25/2025 Travel 06/24/2025 Patient Outreach [address] [phone] Vince Lockhart MD Care Management (C3- APPOINTMENT REMINDER) 06/18/[address] [facility] MEDICINE [address] [place] [address] [phone] Georgina Ann, GUERO Uncomplicated opioid dependence (CMS/HCC) (HCC) 06/18/2025 Patient Outreach [address] [phone] Vince Lockhart MD 06/18/2025 Patient Outreach [facility] MEDICINE [address] [place] [phone] Vince Lockhart MD 06/18/2025 Patient Outreach [facility] [place] [phone] Vince Lockhart MD Care Coordination (C3 [facility] Shelbi Santamaria telephone call outreach) 06/18/2025 Patient Outreach [facility] [place] [address] Vince Lockhart MD Care Management (C3CM- FOLLOW UP CALL ) 06/16/[address] [facility] [place] [phone] Georgina Ann, RN Uncomplicated opioid dependence (CMS/HCC) (HCC) 06/16/[address] [facility] [place] [address] Georgina Ann, GUERO 06/13/[address] [facility] [place] [address] Vince Lockhart MD Mixed hyperlipidemia 06/11/2025 9:00 AM EST Office Visit [facility] [place] [address] Alexander Jones MD Uncomplicated opioid dependence (CMS/HCC) (HCC) (Primary Dx) 06/11/[address] [facility] [place] [address] Alexander Jones MD Uncomplicated opioid dependence (CMS/HCC) (HCC) 06/11/2025 Travel 06/10/[address] [facility] [place] [address] Vince Lockhart MD pt1 06/05/2025 Patient Outreach [facility] [place] [address] Vince Lockhart MD Care Management (Care Coordination) 06/04/2025 Plan of Care Documentation [facility] [place] [phone] 06/04/2025 Plan of Care Documentation [facility] [place] [address] 06/04/2025 Patient Outreach [facility] [address] Vince Lockhart MD Care Coordination (C3 [facility] Shelbi Santamaria pt 1) 06/04/2025 Patient Outreach [facility] [place] [address] Vince Lockhart MD Care Management (C3CM COMPLEX INITIAL ASSESSMENT/ ENROLLMENT ) 06/03/2025 Patient Outreach [address] [phone] Vince Lockhart MD Care Coordination (C3 [facility] Shelbi Santamaria telephone call outreach) 06/02/2025 Patient Outreach [address] [phone] Vince Lockhart MD Care Coordination (C3 [facility] Shelbi Santamaria telephone call outreach) 06/02/2025 Patient Outreach [address] [phone] Vince Lockhart MD 05/31/2025 Orders Only GENERIC EXTERNAL DATA DEPARTMENT Provider, Generic External Data 05/28/2025 9:00 AM EST Office Visit [address] [phone] Alexander Jones MD Uncomplicated opioid dependence (CMS/HCC) (HCC) (Primary Dx) 05/28/2025 Travel 05/23/2025 9:45 AM EST Office Visit [address] [phone] Dionne Eller NP Hospital discharge follow-up (Primary Dx) 05/23/2025 Patient Outreach [address] [phone] Vince Lockhart MD Care Coordination (C3 [facility] Shelbi Santamaria telephone call outreach) 05/23/2025 Travel 05/22/[address] [address] Vince Lockhart MD Hospital Follow-up 05/21/[address] [address] Georgina Ann, RN Uncomplicated opioid dependence (CMS/HCC) (HCC) 05/21/[address] [facility] WALK-IN CENTER [address] [place] [phone] Laura Horn MA 05/12/2025 Patient Outreach [address] [address] Vince Lockhart MD Transition Of Care (Tcm) (HDF scheduled and SDOH screening completed on 10/29/24) 05/12/2025 Patient Outreach [address] [address] Vince Lockhart MD Care Coordination (C3 -W Shelbi Santamaria chart review) 05/12/2025 Patient Outreach [address] [phone] Vince Lockhart MD Care Management (C3CM -CHART REVIEW/) 05/12/2025 Patient Outreach [address] [address] Vince Lockhart MD 05/09/2025 Orders Only GENERIC EXTERNAL DATA DEPARTMENT Provider, Generic External Data 05/08/[address] [facility] ADULT DENTAL [address] [place] [address] [phone] Nils Bower DDS appt slip 05/08/[address] [address] Vince Lockhart MD Benign prostatic hyperplasia with nocturia 05/06/[address] [facility] MEDICINE [address] [place] [phone] Vince Lockhart MD 04/30/2025 9:00 AM EDT Office Visit [address] [address] Alexander Jones MD Uncomplicated opioid dependence (CMS/HCC) (HCC) (Primary Dx) 04/30/2025 Travel 04/23/2025 9:00 AM EDT Office Visit [address] [phone] Alexander Jones MD Uncomplicated opioid dependence (CMS/HCC) (HCC) (Primary Dx) 04/23/[address] [facility] MEDICINE [address] [place] [phone] Georgina Ann, RN Uncomplicated opioid dependence (CMS/HCC) (HCC) 04/23/2025 Orders Only GENERIC EXTERNAL DATA DEPARTMENT Provider, Generic External Data 04/23/2025 Travel 04/22/2025 10:00 AM EDT Office Visit [address] [address] Vince Lockhart MD Primary hypertension (Primary Dx); Benign prostatic hyperplasia with nocturia; Chronic anemia; Positive NICK (antinuclear antibody); Mixed hyperlipidemia; Pulmonary emphysema (HCC); Bipolar affective disorder, currently depressed, moderate (CMS/HCC) (HCC); Precordial pain 04/22/2025 Travel 04/21/[address] [address] Vince Lockhart MD chart prep 04/18/[address] [address] Vince Lockhart MD home services 04/16/2025 9:00 AM EDT Office Visit [address] [address] Alexander Jones MD Uncomplicated opioid dependence (CMS/HCC) (HCC) (Primary Dx) 04/16/2025 Travel 04/09/2025 9:00 AM EDT Office Visit [address] [address] Alexander Jones MD Uncomplicated opioid dependence (CMS/HCC) (Primary Dx) 04/09/2025 Travel from Last 3 Months Immunizations Immunization Administration [...] Pulse 70 07/04/2025 9:13 AM EST Temperature 36.9 C (98.4 F) 05/23/2025 10:03 AM EST Respiratory Rate 16 05/23/2025 10:0 3 AM EST Oxygen Saturation 96% 04/22/2025 9:50 AM EDT Inhaled Oxygen Concentration - - Weight 70.2 kg (154 lb 12.8 oz) 025 10:03 AM EST Height 162.6 cm (5' 4 ) 05/23/2025 10:0 3 AM EST Body Mass Index 26.57 05/23/2025 10:03 AM EST Plan of Treatment Upcoming Encounters Date Type Department Care Team (Late st Contact Info) Description 07/23/2025 9:00 AM EST Office Visit [facility] MEDICINE [address] [place] [address] Alexander Jones MD [address] [place] [address] 07/24/2025 10:00 AM EST Office Visit [facility] OPTOMETRY [address] [place] [address] Tory Garcia, OD [address] [place] [address] 08/12/2025 9:30 AM EST Office Visit [facility] ADULT DENTAL [address] [place] [address] JamieReji hoffman, DMD [address] [place] [address] Health Maintenance Due Date Last Done Comments CT Colonography 1965 FIT DNA/Cologuard 1965 FIT 1965 FOBT 1965 Sigmoidoscopy 1965 Hepatitis A Vaccines (1 of 2 - Risk 2-dose series) 1982 RSV Patients and Patients Aged 60 years or older (1 - Risk 50-74 years 1-dose series) 2013 Dental Prophylaxis 05/29/2015 11/25/2014, 1 07/26/2013, 09/05/2013 Dental Oral Exam 10/05/2018 04/06/2018, 03/2016, 08/06/2013, Additional history exists Dental X-Ray: Bitewings 04/07/2019 04/06/20 18, 04/18/2016, 08/25/2015, Additional history exists Hepatitis B Vaccines (1 of 3 - Risk 3-dose series) 2023 COVID-19 Vaccine ( season) 2025 09/21/2023, 07/08/2021, 09/30/2020 Diabetes: Hemoglobin A1C 08/21/2025 08/21/2024 Disability Screening 10/29/2025 10/29/2024 SDOH Screening 10/29/2025 10/29/2024 Depression Monitoring 12/02/2025 06/04/2025, 025 Alcohol/Substance Use Screening 04/22/2026 04/22/2025 Tobacco Screening 07/04/2026 07/04/2025 Dental X-Ray: Full Mouth 10/26/2026 10/26/2023, 07/18 Colonoscopy 01/09/2028 01/08/2018 Colorectal Cancer Screening 01/09/2028 Lipid Panel 08/21/2029 08/21/2024, 03/01/2021 DTaP/Tdap/Td Vaccines (2 - Td or Tdap) 01/20/2033 01/20/2023, 08/03/2017, 06/05/2015, Additional history exists Zoster Vaccines Completed 02/13/2018, 10/11/2017 Pneumococcal Vaccine: 50+ Years Completed 08/03/2022, 01/06/2014 HIV Screening Completed 08/24/2023, 09/10/2019 Influenza Vaccine Completed 04/19/2025, , 08/23/2022, Additional [...] PROBLEM FOCUSED Routine 07/04/2025 9:30 AM EST CASE PRESENTATION, DETAILED AND EXTENSIVE TREATMENT PLANNING Routine 07/04/2025 9:30 AM EST ADJUST COMPLETE DENTURE - MANDIBULAR Routine 07/04/2025 9:30 AM EST 11 EXTRACTION, ERUPTED TOOTH OR EXPOSED ROOT (ELEVATION/FORCEPS REMOVAL) Routine 07/04/2025 9:30 AM EST POCT MARIA ANTONIA-14 URINE DRUG SCREEN Routine 06/25/2025 9:58 AM EST Uncomplicated opioid dependence (CMS/HCC) (HCC) POCT MARIA ANTONIA-14 URINE DRUG SCREEN Routine 06/11/2025 9:19 AM EST Uncomplicated opioid dependence (CMS/HCC) (HCC) COVID-19 ID NOW (ALEMAN) Routine 05/31/2025 3:51 PM EST INFLUENZA A B2 ID NOW (ALEMAN) Routine 05/31/2025 3:51 PM EST XR CHEST 1 VIEW Routine 05/31/2025 1:[address] HEAD WO CONTRAST Routine 05/10/2025 2 :00 PM EDT LACTIC ACID Routine 05/09/2025 9:58 AM EDT VENOUS BLOOD GAS Routine 05/09/2025 9:24 AM EDT NT-PROBNP Routine 05/09/2025 9:17 AM EDT HIGH SENSITIVITY [...] 3:55 PM EDT Uncomplicated opioid dependence (CMS/HCC) HEMOGLOBIN A1C Routine 08/21/2024 9:04 AM EST Elevated random blood glucose level LIPID PANEL, STANDARD Routine 08/21/2024 9:04 AM EST Primary hypertension PANORAMIC RADIOGRAPHIC IMAGE Routine 10/26/2023 10:30 AM EDT HIV 1/2 ANTIGEN/ANTIBODY, FOURTH GENERATION W/RFL Routine [...] (ABNORMAL) POCT MARIA ANTONIA-14 Urine Drug Screen (06/25/2025 9:58 AM EST) Only the most recent of4 resultswithin the time period is included. THC Positive(A) Negative Cocaine Screen, Urine Positive(A) Negative Opiate Screen, Urine Negative Negative Methamphetamine Screen Urine Negative Negative Amphetamine Screen, Urine Negative Negative Benzodiazepines Screen, Urine Positive(A) Negative Barbiturate Screen, Urine Negative Negative Methadone Screen, Urine Negative Negative Buprenophine Screen, Urine Positive(A) Negative TCA, Urine Positive(A) Negative MDMA Urine Negative Negative ng/mL Oxycodone Screen, Urine Negative Negative Phencyclidine (PCP), Urine Negative Negative Fentanyl, Urine Negative Negative Urine Urine specimen obtained by clean catch procedure / Unknown 06/25/2025 9:58 AM EST Alexander Jones MD POINT OF CARE TEST ENTER/EDIT OR DERABLES Final Result * Influenza A B2 ID NOW (Aleman) (05/31/2025 3:51 PM EST) Only the most recent of2 resultswithin the time period is included. IDNOW SERIAL# [id number] [facility] Influenza A Negative Negative [facility] Influenza B2 Negative Negative [facility] Influenza A B2 Note See Note [facility] Comment:The Aleman ID NOW In [...] specimen and co- infection withRespiratory Syncytial Virus. 05/31/2025 3:51 PM EST 05/31/2025 4:15 PM EST us Generic External Data Provider LAB MICROBIOLOGY - GENERAL ORDERABLES Final Result [facility] [address] [place] [phone] * COVID-19 ID NOW (ALEMAN) (05/31/2025 3:51 PM EST) Only the most recent of2 resultswithin the time period is included. IDNOW SERIAL# [id number] [facility] COVID-19 TEST Negative Negative [facility] COVID-19 NOTE See Note [facility] Comment: Results are for the identification of SARS-CoV2 RNA. TheSARS-CoV2 RNA is generally detectable in respiratory samplesduring the acute phase of infection. Positive results areindicative of the presence of SARS-CoV-2 RNA; clinicalcorrelation with patient history and other diagnosticinformation is necessary to determine patient infectionstatus. Positive results do not rule out bacterial infectionor co- infection with other viruses.Testing facilities within the [facility] are required to report all positive results [...] use by authorized laboratories.Testing performed on the [employer] NOW utilizing NAAT. 05/31/2025 3:51 PM EST 05/31/2025 4:15 PM EST us Generic External Data Provider LAB MOLECULAR AMADOU GNOSTICS ORDERABLES Final Result [facility] [address] [place] [phone] * XR Chest 1 View (05/31/2025 1:46 PM EST) Only the most recent of2 resultswithin the time period is included. Anatomical Region Laterality Modality Chest Radiographic Kailee ging 05/31/2025 1:46 PM EST Narrative 05/31/2025 1:48 PM EST [address] [address] XRay Report Signed Patient: Augustin Vital MR#: [id number] : 1965 Acct:[id number] Age/Sex: 60 / M ADM Date: 05/31/25 Loc: HO.ED Attending Dr: Ordering Physician: Karyn Barth Date of Service: 05/31/25 Procedure(s): XR chest 1V Accession Number(s): [id number] cc: Vince Doran MD; Karyn Barth Reason for Exam: sob CLINICAL HISTORY: sob 1 view chest x-ray Comparison: CR/SR - XR CHEST 1 VIEW - 05/09/25 09:16 EDT CR/SR - XR CHEST 2 VIEWS - 04/23/25 09:40 EDT CR/IA/SR - XR CHEST 1V - 08/08/23 13:03 EST Findings: The lungs are clear. Heart size is normal. No acute fracture. Chronic healed fracture of the right clavicle with deformity. IMPRESSION: 1. No acute findings. This document has been electronically signed by: Liss Espinoza MD on 05/31/2025 13:46:44 Dictated By: Liss Espinoza MD Signed By: <Electronically signed by Liss Espinoza MD in OV> 05/31/25 1347 DD/ 1346 TD/TT: 05/31/25 1346 Director [employer]: Procedure Note Donotuseinterpreter, Image - 05/31/2025 [place] [address] XRay Report Signed Patient: Loly Vital#: [id number] : 1965Acct:[id number] Age/Sex: 60 / MADM Date: 05/31/25 Loc: HO.ED Attending Dr: Ordering Physician: Karyn Barth Date of Service: 05/31/25 Procedure(s): XR chest 1V Accession Number(s): [id number] cc: Vince Doran MD; Karyn Barth Reason for Exam: sob CLINICAL HISTORY: sob 1 view chest x-ray Comparison: CR/SR - XR CHEST 1 VIEW - 05/09/25 09:16 EDT CR/SR - XR CHEST 2 VIEWS - 04/23/25 09:40 EDT CR/IA/SR - XR CHEST 1V - 08/08/23 13:03 EST Findings: The lungs are clear. Heart size is normal. No acute fracture. Chronic healed fracture of the right clavicle with deformity. IMPRESSION: 1. No acute findings. This document has been electronically signed by: Liss Espinoza MD on 05/31/2025 13:46:44 Dictated By: Liss Espinoza MD Signed By: <Electronically signed by Liss Espinoza MD in OV> 05/31/25 1347 DD/ 1346 TD/TT: 05/31/25 1346 Director [employer] Museum: [facility] External Provider IMG XR PROCEDURES Edited Result - Final * CT Head w/o Contrast (05/10/2025 2:00 PM EDT) Anatomical Region Laterality Modality Head, Neck Computed Tomogra phy 05/10/2025 2:00 PM EDT Narrative 05/10/2025 2:00 PM EDT [place] [address] CT Scan Report Signed Patient: Augustin Vital MR#: [id number] : 1965 Acct:[id number] Age/Sex: 60 / M ADM Date: 05/09/25 Loc: [facility] 350-[address]: Atilio Cox MD Ordering Physician: Atilio Cox MD Date of Service: 05/10/25 Procedure(s): CT head/brain wo IV con Accession Number(s): [id number] cc: Vince Doran MD; Atilio Cox MD Report Number: [id number]: Total DLP = 576.00 mGy-cm Reason for Exam: Headache CLINICAL HISTORY: Headache CT head without contrast Comparison: 04/03/2024 Findings: No intracranial mass, midline shift, hydrocephalus, or acute hemorrhage. No CT evidence of acute ischemia. Visualized paranasal sinuses and mastoid air cells normal. Orbits unremarkable. No skull fracture Impression: 1. No acute intracranial abnormalities. This document has been electronically signed by: Chano Farmer MD on 05/10/2025 14:00:00 Dictated By: Chano Farmer MD Signed By: <Electronically signed by Chano Farmer MD in OV> 05/10/25 1400 DD/ 99 TD/TT: 05/10/251399 Director [employer] Museum: Procedure Note Donotuseinterpreter, Image - 05/10/[address] [place] [address] [address] Scan Report Signed Patient: Loly Vital#: [id number] : 1965Acct:[id number] Age/Sex: 60 / MADM Date: 05/09/25 Loc: .S3 350-[address]: Atilio Cox MD Ordering Physician: Atilio Cox MD Date of Service: 05/10/25 Procedure(s): CT head/brain wo IV con Accession Number(s): [id number] cc: Vince Doran MD; Atilio Cox MD Report Number: [id number]: Total DLP = 576.00 mGy-cm Reason for Exam: Headache CLINICAL HISTORY: Headache CT head without contrast Comparison: 04/03/2024 Findings: No intracranial mass, midline shift, hydrocephalus, or acute hemorrhage. No CT evidence of acute ischemia. Visualized paranasal sinuses and mastoid air cells normal. Orbits unremarkable. No skull fracture Impression: 1. No acute intracranial abnormalities. This document has been electronically signed by: Chano Farmer MD on 05/10/2025 14:00:00 Dictated By: Chano Farmer MD Signed By: <Electronically signed by Chano Farmer MD in OV> 05/10/25 1400 DD/ 99 TD/TT: 05/10/251399 Director Industrial Museum: [facility] External Provider IMG CT PROCEDURES Edited Result - Final * Lactic Acid (05/09/2025 9:58 AM EDT) Lactic Acid 0.7 0.5 - 2.0 mmol/L [facility] 05/09/2025 9:58 AM EDT 05/09/2025 10:03 AM EDT us Generic External Data Provider LAB BLOOD ORDERAB LES Final Result Performing Organization Address [facility] Co de Phone Number [facility] [address] [place] [phone] * (ABNORMAL) VENOUS BLOOD GAS (05/09/2025 9:24 AM EDT) VBG pH 7.38 7.32 - 7.43 [facility] Comment:METER #: [id number] additional_comment: Cb hottenc VBG PCO2 57 mmHg [facility] Comment:METER #: [id number] additional_comment: Cb hottenc VBG PO2 46 mmHg [facility] Comment:METER #: [id number] additional_comment: Cb hottenc VBG Base Excess 7.6 mmol/L [facility] Comment:METER #: [id number] additional_comment: Cb hottenc VBG HCO3 34(H) 22 - 26 mmol/L [facility] Comment:METER #: [id number] additional_comment: Cb hottenc O2 Sat, Flaco 80.0 % [facility] Comment:METER #: [id number] additional_comment: Cb hottenc 05/09/2025 9:24 AM EDT 05/09/2025 9:27 AM EDT us Generic External Data Provider LAB BLOOD ORDERAB LES Final Result Performing Organization Address [facility] Co de Phone Number [facility] [address] [place] [phone] * High Sensitivity Troponin I (05/09/2025 9:17 AM EDT) TROPONIN I HIGH SENSITIVITY <2.7 <3.5 - 35.0 ng/L [facility] Comment:The Aleman high sens itivity Troponin-I results should beused in conjunction with other diagnostic information suchas ECG, clinical observations and information, and patientsymptoms to aid in the diagnosis of [place]. 05/09/2025 9:17 AM EDT 05/09/2025 9:22 AM EDT Generic External Data Provider LAB BLOOD ORDERAB LES Final Result Performing Organization Address City/[facility]/ZIP Co de Phone Number [facility] [address] [place] [phone] * NT-proBNP (05/09/2025 9:17 AM EDT) Pathologist [facility] NT-proBNP 30.7 <300 pg/mL [facility] Comment:Reference Range:Age Group (years) NT-proBNP (pg/ml) InterpretationAll <300 Negative: HF unlikelyFor patients presenting to the ED with clinical suspicion ofnew onset or worsening HF, see below:18 to <50 >299.9 to <450.0 Grayzone: [id number] to 75 >299.9 to <900.0 other causes of>75 >299.9 to <1800.0 NT-proBNP astiikedh07 to <50 >449.9 Positive: HF kgmvuk90-75 >899.9>75 >1799.9Note: Elevated NT-proBNP levels should be interpreted inthe context of other clinical information. 05/09/2025 9:17 AM EDT 05/09/2025 9:22 AM EDT us Generic External Data Provider LAB BLOOD ORDERAB LES Final Result Performing Organization Address City/[facility]/ZIP Co de Phone Number [facility] [address] [place] [phone] * (ABNORMAL) CBC auto differential (05/09/2025 9:17 AM EDT) White Blood Count 7.7 4.8 - 10.8 X10*3/uL [facility] Red Blood Count 4.08(L) 4.60 - 5.80 X10*6/uL [facility] Hemoglobin 11.7(L) 14.0 - 18.0 g/dl [facility] Hematocrit 36.1(L) 42.0 - 52.0 % [facility] Mean Corpuscular Volume 88.5 80.0 - 98.0 fL [facility] Mean Corpuscular Hemoglobin 28.7 27.0 - 33.0 pg [facility] Mean Corpuscular HGB Conc 32.4 31.0 - 36.0 g/dl [facility] Red Cell Distribution Width 13.9 11.0 - 16.0 % [facility] Platelet Count 282 160 - 400 X10*3/uL [facility] Mean Platelet Volume 8.1(L) 9.4 - 12.4 fL [facility] Neutrophils Percent Auto 72.1 45 - 73 % [facility] Imm Gran Pct Auto 0.5(H) 0.0 - 0.4 % [facility] Lymphocytes Percent Auto 18.3(L) 20 - 40 % [facility] Monocytes Percent Auto 6.1 2 - 11 % [facility] Eosinophils Percent Auto 2.7 0 - 4 % [facility] Basophils Percent Auto 0.3 0 - 2 % [facility] NRBC Pct Auto 0.0 0.0 - 0.2 /100WBC [facility] Neutrophils Absolute Auto 5.5 2.0 - 8.3 x10*3/uL [facility] Imm Gran Abs Auto 0.04(H) 0.00 - 0.03 X10*3/uL [facility] Lymphocytes Absolute Auto 1.4 1.2 - 4.9 X10*3/uL [facility] Monocytes Absolute Auto 0.5 0.1 - 1.2 X10*3/uL [facility] Eosinophils Absolute Auto 0.2 0.0 - 0.4 X10*3/uL [facility] Basophils Absolute Auto 0.0 0.0 - 0.2 X10*3/uL [facility] NRBC Abs Auto 0.000 0.0 - 0.012 X10*3/uL [facility] 05/09/2025 9:17 AM EDT 05/09/2025 9:22 AM EDT us Generic External Data Provider LAB BLOOD ORDERAB LES Final Result Performing Organization Address City/[facility]/ZIP Co de Phone Number [facility] [address] [place] [phone] * Magnesium (05/09/2025 9:17 AM EDT) Magnesium 2.3 1.6 - 2.6 mg/dL [facility] 05/09/2025 9:17 AM EDT 05/09/2025 9:22 AM EDT us Generic External Data Provider LAB BLOOD ORDERAB LES Final Result Performing Organization Address [facility] Phone Number [facility] [address] [place] [phone] * (ABNORMAL) Hepatic Function Panel (05/09/2025 9:17 AM EDT) Bilirubin, Total 0.2 0.0 - 1.0 mg/dL [facility] Bilirubin, Direct <0.2 0.0 - 0.5 mg/dL [facility] Aspartate Amino Transferase 27 5 - 37 U/L [facility] Alanine Aminotransferase 42(H) 0 - 40 U/L [facility] Total Protein 7.0 6.5 - 8.0 g/dL [facility] Albumin Level 4.1 3.5 - 5.0 g/dL [facility] Alkaline Phosphatase 90 39 - 117 U/L [facility] 05/09/2025 9:17 AM EDT 05/09/2025 9:22 AM EDT us Generic External Data Provider LAB BLOOD ORDERAB LES Final Result Performing Organization Address [facility] Co de Phone Number [facility] [address] [place] [phone] * (ABNORMAL) Basic Metabolic Panel (05/09/2025 9:17 AM EDT) Sodium 141 135 - 145 mmol/L [facility] Potassium 4.3 3.3 - 5.1 mmol/L [facility] Chloride 104 96 - 108 mmol/L [facility] Carbon Dioxide 29 22 - 29 mmol/L [facility] Anion Gap 12 12 - 20 [facility] Urea Nitrogen (BUN) 13 9 - 16 mg/dL [facility] Creatinine, Serum 1.06 0.5 - 1.4 mg/dL [facility] Creatinine Clr Calc Pharmacy 60.5 [facility] Comment:eGFR (calculated fro m the MDRD study equation) and eCrCl(calculated from the Cockcroft-Gault equation) are based ondifferent parameters and may not yield comparable results.If eCrCl result is absurd, please check patient'sheight/weight. Estimated Glomerular Filt Rate >60 [facility] Comment:Chronic Kidney Disea se: Estimated GFR < 60 mL/min/1.61b0Lgkiok Kidney Disease: Estimated GFR < 15 mL/min/1.73m2 Glucose 145(H) 60 - 115 mg/dL [facility] Calcium 9.2 8.4 - 10.2 mg/dL [facility] 05/09/2025 9:17 AM EDT 05/09/2025 9:22 AM EDT us Generic External Data Provider LAB BLOOD ORDERAB LES Final Result [facility] [address] [place] [phone] * XR Chest 2 Views (04/23/2025 9:40 AM EDT) Anatomical Region Laterality Modality Chest Radiographic Kailee ging 04/23/2025 9:40 AM EDT Narrative 04/23/2025 10:09 AM EDT [address] [address] XRay Report Signed Patient: Augustin Vital MR#: [id number] : 1965 Acct:[id number] Age/Sex: 59 / M ADM Date: 04/23/25 Loc: [facility] Attending Dr: Vince Doran MD Ordering Physician: Vince Doran MD Date of Service: 04/23/25 Procedure(s): XR chest 2V Accession Number(s): [id number] cc: Vince Doran MD Reason for Exam: [...] Jiang MD in OV> 04/23/25 1006 DD/ 0940 TD/TT: 04/23/25 0949 Director Industrial Museum: Procedure Note Donotuseinterpreter, Image - 04/23/[address] [address] XRay Report Signed Patient: Lo VitalR#: [id number] : 1965Acct:[id number] Age/Sex: 59 / MADM Date: 04/23/25 Loc: [facility] Attending Dr: Vince Doran MD Ordering Physician: Vince Doran MD Date of Service: 04/23/25 Procedure(s): XR chest 2V Accession Number(s): [id number] cc: Vince Doran MD Reason for Exam: [...] Francisco Jiang MD 04/23/2025 10:06 AM EDT RP Dictated By: Francisco Jiang MD Signed By: <Electronically signed by Francisco Jiang MD in OV> 04/23/25 1006 DD/ 0940 TD/TT: 04/23/25 0949 Director Industrial Museum: HB us Vince Avelar MD IMG XR PROCEDURES Fin al Result * Creatinine, Serum (04/23/2025 9:11 AM EDT) Creatinine, Serum 0.85 0.5 - 1.4 mg/dL [facility] Estimated Glomerular Filt Rate >60 [facility] Comment:Chronic Kidney Disea se: Estimated GFR < 60 mL/min/1.26l9Jezvrg Kidney Disease: Estimated GFR < 15 mL/min/1.73m2 04/23/2025 9:11 AM EDT 04/23/2025 11:24 AM EDT us Generic External Data Provider LAB BLOOD ORDERAB LES Final Result [facility] [address] [place] [phone] * BUN (Blood Urea Nitrogen) (04/23/2025 9:11 AM EDT) Urea Nitrogen (BUN) 11 9 - 16 mg/dL [facility] 04/23/2025 9:11 AM EDT 04/23/2025 11:24 AM EDT us Generic External Data Provider LAB BLOOD ORDERAB LES Final Result Performing Organization Address City/[facility]/ZIP Co de Phone Number [facility] [address] [place] [phone] * PSA,Total (04/23/2025 9:11 AM EDT) Prostate Specific Antigen 2.71 <0.05 - 4.0 ng/mL [facility] Comment:PSA methodology: Shadia Rm i ChemiluminescentMicroparticle Immunoassay (CMIA) 04/23/2025 9:11 AM EDT 04/23/2025 11:27 AM EDT us Generic External Data Provider LAB BLOOD ORDERAB LES Final Result Performing Organization Address City/[facility] Co de Phone Number [facility] [address] [place] [phone] * ECG 12 lead (04/22/2025 10:28 AM EDT) Narrative Vince Lockhart MD - 04/22/2025 10:28 AM EDT Tachycardia 94 bpm, No acute st t changes us Vince Avelar MD ECG ORDERABLES Final Result * Hemoglobin A1c (08/21/2024 9:04 AM EST) Hemoglobin A1c 5.7 <6.0 % [facility] Comment:Hemoglobin A1C Refer ence Range Adults: 4.8 - 6.0 % Non diabetic: < 6.0 % Goal: < 7.0 %Additional Action Suggested: > 8.0 %Note: Hemoglobin A1c results are invalid for patients with abnormal amounts of HbF. Blood transfusions may impact the HbA1c concentration in the patient sample. Estimated Average Glucose 117 mg/dL [facility] Comment:eAG = Estimated ave rage glucose which is %A1C expressed asaverage glucose, using the formula of the F8A-PgauzkwWnvkmer Glucose study (ADAG), Diabetes Care, Vol.31,#8,Feb. 2007 Blood Venous blood specimen / Unknown 08/21/2024 9:04 AM EST 08/21/2024 10:51 AM EST Vince Avelar MD LAB BLOOD ORDERABLES Final Result Performing Organization Address City/State/[facility] Co de Phone Number [facility] [address] [place] [phone] * Lipid Panel, Standard (08/21/2024 9:04 AM EST) Triglycerides 65 <150 mg/dL [facility] Comment:Desirable Triglyceri de: less than 150 mg/dLBorderline High Triglyceride 150-199 mg/dLHigh Triglyceride: 200-499 mg/dLVery High Triglyceride: greater than or equal to 5OO mg/dL Cholesterol 137 <200 mg/dL [facility] Comment:Desirable Cholestero l: less than 200 mg/dLBorderline High Cholesterol: 200-239 mg/dLHigh Cholesterol: greater than 239 mg/dL LDL Cholesterol Calculated 74 <100 mg/dL [facility] Comment:Desirable LDL: less than 100 mg/dLNear Optimal/Above Optimal LDL: 110- 129 mg/dLBorderline High LDL: 130-159 mg/dLHigh LDL: 160-189 mg/dLVery High LDL: greater than or equal to 190 mg/dL HDL Cholesterol 50 >40 mg/dL [facility] Comment:Desirable HDL: great er than 40 mg/dL Note: This HDL assay may give artificially low results in patients with liver disease. Blood Venous blood specimen / Unknown 08/21/2024 9:04 AM EST 08/21/2024 10:51 AM EST Vince Avelar MD LAB BLOOD ORDERABLES Final Result [facility] [address] [place] [address] [phone] * HIV-1/2 Antigen and Antibodies, Fourth Generation, with Reflexes (08/24/2023 2:22 PM EST) HIV AB/AG Nonreactive Nonreactive [facility] Comment:HIV-1 p24 Ag and/or HIV-1/HIV-2 Ab not detected.A test result that is nonreactive does not exclude thepossibility of exposure to or infection with HIV-1 and/orHIV-2. Nonreactive results in this assay for individualswith prior exposure to HIV-1 and/or HIV-2 may be due toantigen and antibody levels that are below the limit ofdetection of this assay.The [employer] HIV Ag/Ab Combo assay result andsupplemental assay results should be interpreted inconjunction with the patient's clinical presentation,history and other laboratory results. If the results areinconsistent with clinical evidence, additional testing issuggested to confirm the result. Blood Venous blood specimen / Unknown 08/24/2023 2:22 PM EST 08/24/2023 4:01 PM EST Alexander Jones MD LAB BLOOD ORDERABLES Final Resul t [facility] [address] [place] [address] [phone] * Hm Colonoscopy (01/08/2018) Colonoscopy Normal [...] Phone Billing Address Personal/Family Self 1965 [address] [place] [address] [place] Member Subscriber Plan / Payer (Ef fective 2023-Present) Name:Augustin Vital Relation to Subscriber:Self Name:Augustin Vital Payer ID:Not on file Group ID:Not on file Type:Medicaid Address: [address] [place] [address] * Guarantor: Augustin Vital Account Type Relation to Patient Date of Phone Billing Address Dental Self [address] [place] [address] [facility] MEDICAID STAND ADULT Member Subscriber Plan / Payer (Ef fective 2023-Present) Name:Augustin Vital Relation to Subscriber:Self Name:Augustin Vital Payer ID:Not on file Group ID:Not on file Type:Not on file Address: [address] [place] [address] * Guarantor: Augustin Vital Account Type Relation to Patient Date of Phone Billing Address Personal/Family Self [address] [place], [place] Care Teams 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
--- OUTSIDE RECORDS SUMMARY | 2025-07-09 09:50 | XMS_ITS | Encounter Summary ---
Author Organization [employer] Address [address] [facility] [address] [place] [address] Care Team Providers Care Tool Grinder Operator External Name Role Phone Vince Lockhart MD Primary Care Provide r Radha Howard RN Unavailable [phone] Shelbi Santamaria Unavailable Reason for Visit * Reason Onset Date Comments Error 10/20/2023 Encounter Details Date Type Department Care Team (Late st Contact Info) Description 10/20/2023 Telephone [facility] MEDICINE [address] [place], [place] [phone] Vince Lockhart MD [address] [place], [place] [phone] Error Social History Tobacco Use Types Packs/Day [...] the past 12 months, has t he [employer], oil or water company threatened to shut [...] Visit [facility] MEDICINE [address] [place] [address] Alexander Jones MD [address] [place] [address] 07/24/2025 10:00 AM EST Office Visit [facility] OPTOMETRY [address] [place] [address] Tory Garcia, OD [address] [place] [address] 08/12/2025 9:30 AM EST Office Visit [facility] ADULT DENTAL [address] [place] [address] Reji Manning DMD [address] [place] [address] documented as of this encounter Goals Goal [...] documented as of this encounter Care Teams Tool Grinder Operator External Relationship Specialty Start Date End Date Vince Lockhart MD [address] [place], [place] [phone] PCP - General Internal Medicine 04/10/14 Radha Howard RN [address] [place], [place] [phone] Registered Nurse Family Medicine 05/12/25 Shelbi Santamaria 05/12/25 [facility] 12/29/23 documented as of this encounter
--- OUTSIDE RECORDS SUMMARY | 2025-07-09 09:50 | XMS_ITS | Encounter Summary ---
Author Organization [employer] Address [address] [facility] 7t [place] [address] Care Team Providers Care Rack Pusher Name Role Phone Vince Lockhart MD Primary Care Provide r Radha Howard RN Unavailable [phone] Shelbi Satnamaria Unavailable Reason for Visit * Reason Onset Date Comments pt1 06/10/2025 Encounter Details Date Type Department Care Team (Late st Contact Info) Description 06/10/[address] [facility] MEDICINE [address] [place], [place] [phone] Vince Lockhart MD [address] [place], [place] [phone] pt1 Social History Tobacco Use Types Packs/Day Years [...] * Telephone Encounter - Wero Kwon - 06/10/2025 12:44 PM EST Patient calling requesting PT1 Home Address verified: Y/N: Yes Provider name or facility name: [address] [place] [address] [place] [address] Escort needed: Y/N: No Do you have a wheelchair: Y/N: No If yes- Manual or electric: Visits: 2x a month documented in this encounter Plan of Treatment Upcoming Encounters Date Type Department Care Team (Late st Contact Info) Description 07/23/2025 9:00 AM EST Office Visit [facility] MEDICINE [address] [place] [address] Alexander Jones MD [address] [place] [address] 07/24/2025 10:00 AM EST Office Visit [facility] OPTOMETRY [address] [place] [address] Tory Garcia, OD [address] [place] [address] 08/12/2025 9:30 AM EST Office Visit [facility] ADULT DENTAL [address] [place] [address] Reji Manning, DMD [address] [place] [address] documented as of this encounter Goals Goal [...] Noted Time PHQ-9 Depression Total Score: 17 11:37 AM EST documented as of this encounter Care Teams Rack Pusher Relationship Specialty Start Date End Date Vince Lockhart MD [address] [place] [address] PCP - General Internal Medicine 04/10/14 Radha Howard RN [address] [place] [address] Registered Nurse Family Medicine 05/12/25 Shelbi Santamaria 05/12/25 [facility] 12/29/23 documented as of this encounter
--- OUTSIDE RECORDS SUMMARY | 2025-07-09 09:50 | XMS_ITS | Encounter Summary ---
Author Organization [employer] Address [address] [facility] [address] [place] [address] Care Team Providers Care Men'S And Boys' Clothing Salesperson Name Role Phone Vince Lockhart MD Primary Care Provide r Radha Howard RN Unavailable [phone] Shelbi Santamaria Unavailable Reason for Visit * Reason Onset Date Comments Call Back Request 02/25/2025 Encounter Details Date Type Department Care Team ([facility] st Contact Info) Description 02/25/2025 Telephone [facility] MEDICINE [address] [place], [place] [phone] Vince Lockhart MD [address] [place], [place] [phone] Call Back Request Social History Tobacco Use [...] - 02/25/2025 3:01 PM EDT TC from [facility] with [facility] requesting a call back due to questions they have regarding patient. Questions: If patient has decisional capacity? Does the patient have a health care proxy? If yes, who is the proxy? Does the PCP believe patient needs a higher level of care? Does the PCP have any concerns regarding patient? Caller name: Sheela ext [phone]. documented in this encounter Plan of Treatment Upcoming Encounters Date Type Department Care Team (Late st Contact Info) Description 07/23/2025 9:00 AM EST Office Visit [facility] MEDICINE [address] [place] [address] Alexander Jones MD [address] [place] [address] 07/24/2025 10:00 AM EST Office Visit [facility] OPTOMETRY [address] [place] [address] Tory Garcia, OD [address] [place] [address] 08/12/2025 9:30 AM EST Office Visit [facility] ADULT DENTAL [address] [place] [address] Kerri Reji, DMD [address] [place] [address] documented as of this encounter Goals Goal [...] documented as of this encounter Care Teams Men'S And Boys' Clothing Salesperson Relationship Specialty Start Date End Date Vince Lockhart MD [address] [place] [address] PCP - General Internal Medicine 04/10/14 Radha Howard RN [address] [place] [address] Registered Nurse Family Medicine 05/12/25 Shelbi Santamaria 05/12/25 [facility] 12/29/23 documented as of this encounter
--- OUTSIDE RECORDS SUMMARY | 2025-07-09 09:50 | XMS_ITS | Encounter Summary ---
Author Organization [employer] Address [address] [facility] [address] [place] [address] Care Team Providers Care Mental Health Professional Name Role Phone Vince Lockhart MD Primary Care Provide r Radha Howard RN Unavailable [phone] Shelbi Santamaria Unavailable Reason for Visit * Reason Comments Med Refill Encounter Details Date Type Department Care Team ([facility] st Contact Info) Description 09/21/2023 Refill [facility] MEDICINE [address] [place], [place] [phone] Vince Lockhart MD [address] [place], [place] [phone] Hospital discharge follow-up Social History Tobacco Use [...] the past 12 months, has t he [employer], [employer], oil or water company threatened to shut [...] Description 07/23/2025 9:00 AM EST Office Visit [facility] MEDICINE [address] [place] [address] Alexander Jones MD [address] [place] [address] 07/24/2025 10:00 AM EST Office Visit [facility] OPTOMETRY [address] [place] [address] Tory Garcia, WALE [address] [place] [address] 08/12/2025 9:30 AM EST Office Visit [facility] ADULT DENTAL [address] [place] [address] Reji Manning DMD [address] [place] [address] documented as of this encounter Goals Goal Patient Goal Type Associated Problems Recent Progress Patient-Stated? Author Patient will adhere to medication regimen General Improving( 4:15 PM EDT) No Osiel Mendez MayteD Note: Difficulty with taking medications daily due to no desire documented as of this encounter Visit Diagnoses Diagnosis Hospital discharge follow-up Other follow-up examination documented in this encounter Additional Health Concerns Assessment Noted Time PHQ-9 Depression Total Score: 26 023 2:35 PM EDT documented as of this encounter Care Teams Mental Health Professional Relationship Specialty Start Date End Date Vince Lockhart MD [address] [place] [address] PCP - General Internal Medicine 04/10/14 Radha Howard RN [address] [place] [address] Registered Nurse Family Medicine 05/12/25 Shelbi Santamaria 05/12/25 [facility] 12/29/23 documented as of this encounter
--- OUTSIDE RECORDS SUMMARY | 2025-07-09 09:50 | XMS_ITS | Encounter Summary ---
Author Organization [employer] Address [address] [facility] 7t [place] [address] Care Team Providers Care Block Sorter Name Role Phone Vince Lockhart MD Primary Care Provide r Radha Howard RN Unavailable [phone] Shelbi Santamaria Unavailable Reason for Visit * Reason Comments Med Refill Encounter Details Date Type Department Care Team (Late st Contact Info) Description 11/22/2024 Refill [facility] MEDICINE [address] [place], [place] [phone] Alexander Jones MD [address] [place], [place] [phone] Uncomplicated opioid dependence (CMS/HCC) Social History Tobacco [...] Description 07/23/2025 9:00 AM EST Office Visit [facility] MEDICINE [address] [place] [address] Alexander Jones MD [address] [place] [address] 07/24/2025 10:00 AM EST Office Visit [facility] OPTOMETRY [address] [place] [address] Tory Garcia, OD [address] [place] [address] 08/12/2025 9:30 AM EST Office Visit [facility] ADULT DENTAL [address] [place] [address] Reji Manning, YOVANI [address] [place] [address] documented as of this encounter Goals Goal [...] documented as of this encounter Care Teams Block Sorter Relationship Specialty Start Date End Date Vince Lockhart MD [address] [place] [address] PCP - General Internal Medicine 04/10/14 Radah Howard RN [address] [place] [address] Registered Nurse Family Medicine 05/12/25 Shelbi Santamaria 05/12/25 [facility] 12/29/23 documented as of this encounter
--- OUTSIDE RECORDS SUMMARY | 2025-07-09 09:50 | XMS_ITS | Encounter Summary ---
Author Organization [employer] Address [address] [facility] 7t [place] [address] Care Team Providers Care Document Management Analyst Name Role Phone Vince Lockhart MD Primary Care Provide r Radha Howard RN Unavailable [phone] Shelbi Santamaria Unavailable Reason for Visit * Reason Comments Care Management C3 COMPLEX INITIAL ASSESSMENT/ ENROLLMENT Encounter Details Date Type Department Care Team ([facility] st Contact Info) Description 06/04/2025 Patient Outreach [facility] MED[facility]INE [address] [place], [place] [phone] Vince Lockhart MD [address] [place], [place] [phone] Care Management (C3 COMPLEX INITIAL ASSESSMENT/ ENROLLMENT ) Social History Tobacco Use Types Packs/Day [...] Answer Date of Assessment Author Patient Health Questionnaire -2 Score 5 06/04/2025 11:37 AM Radha Chiu RN * Little interest or pleasure in doing things Answer Date of Assessment Author Nearly every day 06/04/2025 11:37 AM Radha Chiu RN * Feeling down, depressed, or hopeless Answer Date of Assessment Author More than half the days 06/04/2025 11:37 AM Radha Chiu RN * Trouble falling or staying asleep, or sleeping too much Answer Date of Assessment Author Not at all 06/04/2025 11:37 AM Marcus Chiu RN * Feeling tired or having little energy Answer Date of Assessment Author Nearly every day 06/04/2025 11:37 AM Radha Chiu RN * Poor appetite or overeating Answer Date of Assessment Author Several days 06/04/2025 11:37 AM Marcus Chiu RN * Feeling bad about yourself - or that you are a failure or have let yourself or your family down Answer Date of Assessment Author More than half the days 06/04/2025 11:37 AM Radha Chiu RN * Trouble concentrating on things, such as reading the newspaper or watching television Answer Date of Assessment Author Nearly every day 06/04/2025 11:37 AM Radha Chiu RN * Moving or speaking so slowly that other people could have noticed? Or the opposite - being so fidgety or restless that you have been moving around a lot more than usual. Answer Date of Assessment Author Nearly every day 06/04/2025 11:37 AM Radha Chiu RN * Thoughts that you would be better off or hurting yourself in some way Answer Date of Assessment Author Not at all 06/04/2025 11:37 AM Marcus Chiu RN * Patient Health Questionnaire-9 Score Answer Date of Assessment Author 17 06/04/2025 11:37 AM Marcus Chiu RN * Over the last 2 weeks, how often have you been bothered by any of the following problems? Question Answer Date of Assessment Author Feeling nervous, anxious, or on edge 2 06/04/2025 11:46 AM Radha Chiu RN Not being able to stop or co ntrol worrying 3 06/04/2025 11:46 AM Radha Chiu RN Worrying too much about diff erent things 3 06/04/2025 11:46 AM Radha Chiu RN Trouble relaxing 3 06/04/2025 11:46 AM Radha Chiu RN Being so restless that it is hard to sit still 3 06/04/2025 11:46 AM Radha Chiu RN Becoming easily annoyed or irritable 3 06/04/2025 11:46 AM Radha Chiu RN Feeling afraid as if somethi ng awful might happen 3 06/04/2025 11:46 AM Radha Chiu RN SAÚL-7 Total Score 20 06/04/2025 11:46 AM Radha Chiu RN * How difficult have these problems made it for you to do your work, take care of things at home, or get along with other people? Answer Date of Assessment Author Very difficult 06/04/2025 11:37 AM Marcus Chiu RN documented as of this encounter Miscellaneous Notes * Care Plan - Radha Howard RN - 06/04/2025 11:01 AM EST Active Problem: BH: Anxiety Dates: Start: 06/04/25 Disciplines: Interdisciplinary Goal: Anxiety Management Dates: Start: 06/04/25 Expected End: 09/04/25 Description: Patient will adhere to the prescribed treatment plan for depression and anxiety, utilize coping mechanisms to manage symptoms, and contact their therapist, psychiatrist, or crisis helpline if symptoms worsen or safety concerns arise. Disciplines: Interdisciplinary Barriers 1. Patient Adherence 2. Disease process Intervention: Identify Triggers to Anxiety Dates: Start: 06/04/25 Responsible: Radha Howard RN Goal: Symptom Management Dates: Start: 06/04/25 Expected End: 09/04/25 Disciplines: Interdisciplinary Intervention: Instruct on alternative treatments/measures to increase comfort: deep breathing, relaxation, imagery, distraction, calming self-statements, heat, massage, exercise, as appropriate. Dates: Start: 06/04/25 Responsible: Radha Howard RN Problem: Barriers to Care Dates: Start: 06/04/25 Disciplines: Interdisciplinary Goal: Manage Barriers to Care Dates: Start: 06/04/25 Expected End: 09/04/25 Description: Patient states will identify and communicate with CM team any personal, social, or environmental barriers that affect their ability to access or participate in care. Disciplines: Interdisciplinary Barriers 1. Patient Adherence 2. Lack of compliance 3. Language Barrier 4. Cognitive Intervention: Evaluate means of transportation to keep appointments. Dates: Start: 06/04/25 Responsible: Radha Howard RN Intervention: Evaluate knowledge of how to access appropriate community resources. Dates: Start: 06/04/25 Responsible: Radha Howard RN Intervention: Assess barriers to care (cultural, financial, cognitive, caregiver, environment, other), and identify plan to address barriers, and implement action plan and involve patient in action plan. Dates: Start: 06/04/25 Responsible: Radha Howard RN Problem: Behavioral Health Dates: Start: 06/04/25 Disciplines: Interdisciplinary Goal: Support Behavioral Health Dates: Start: 06/04/25 Expected End: 09/04/25 Description: Patient states will consistently attend all scheduled therapy and prescriber appointments and will promptly notify their critical care nurse, psychiatrist, or therapist of any medication side effects or worsening symptoms in the next 3 months. Disciplines: Interdisciplinary Barriers 1. Health literacy 2. Patient Adherence Intervention: Assess emotional status: e.g., anxiety, depression, agitation, delusions, hallucinations, other. Dates: Start: 06/04/25 Responsible: Radha Howard RN Intervention: Evaluate and document response to medication and other therapies; re-administer mental health-screening tool as needed. Dates: Start: 06/04/25 Responsible: Radha Howard RN Intervention: Instruct on the importance of adherence to prescribed treatment regimen for mental health condition (especially medication) to prevent exacerbation. Dates: Start: 06/04/25 Responsible: Radha Howard RN Problem: COPD Dates: Start: 06/04/25 Disciplines: Interdisciplinary Goal: Avoids Lung Irritants and Triggers to Exacerbation Dates: Start: 06/04/25 Expected End: 09/04/25 Description: Patient will follow their prescribed COPD treatment plan- including using inhalers as directed, performing daily breathing exercises, and avoiding known triggers. Disciplines: Interdisciplinary Intervention: Patient Teach-Back on Triggers and Lung Irritants to Avoid Dates: Start: 06/04/25 Responsible: Radha Howard RN Goal: Completion of Necessary Screenings/Testing/Vaccinations Dates: Start: 06/04/25 Expected End: 09/04/25 Description: Patient will adhere to all follow up appointments with boom supervisor and will notify of any worsening respiratory symptoms. Disciplines: Interdisciplinary Barriers 1. Patient Adherence 2. Disease process Intervention: Address Barriers to Achieving Goal Dates: Start: 06/04/25 Responsible: Radha Howard RN Goal: Properly Uses Inhaler, Spacer, or Nebulizer Dates: Start: 06/04/25 Expected End: 09/04/25 Disciplines: Interdisciplinary Intervention: Patient Teach-Back on Inhaler/Nebulizer Use Dates: Start: 06/04/25 Responsible: Radha Howard RN Problem: Care Management Dates: Start: 06/04/25 Disciplines: Interdisciplinary Goal: Care Management Dates: Start: 06/04/25 Expected End: 09/04/25 Description: Within the next 3 months, patient will engage with critical care nurse through scheduled calls or visits to review health goals, discuss progress, and address any barriers to care plan. Disciplines: Interdisciplinary Barriers 1. Patient Adherence 2. Health literacy Intervention: Assess patient/caregiver perception of primary concerns and goals for care. Dates: Start: 06/04/25 Responsible: Radha Howard RN Intervention: Instruct on length of service and appropriate boundaries. Dates: Start: 06/04/25 Responsible: Radha Howard RN Problem: Coordination of Care Dates: Start: 06/04/25 Disciplines: Interdisciplinary Goal: Effectively coordinate care Dates: Start: 06/04/25 Expected End: 09/04/25 Description: In the next 3 months, patient will notify the care team of all upcoming appointments and communicate any scheduling difficulties to receive assistance with coordination and reminders. Disciplines: Interdisciplinary Barriers 1. Language Barrier 2. Lack of compliance 3. Patient Adherence Intervention: Coordinate Durable Medical Equipment Needs Dates: Start: 06/04/25 Responsible: Radha Howard RN Intervention: Coordinate transportation needs Dates: Start: 06/04/25 Responsible: Radha Howard RN Problem: DME/Equipment Dates: Start: 06/04/25 Disciplines: Interdisciplinary Goal: Obtain DME/Equipment Dates: Start: 06/04/25 Expected End: 09/04/25 Disciplines: Interdisciplinary Barriers 1. Patient Adherence 2. Health literacy Intervention: Coordinate Arrangements for DME/Supplies Dates: Start: 06/04/25 Responsible: Radha Howard RN Problem: Hypertension Dates: Start: 06/04/25 Disciplines: Interdisciplinary Goal: Adherence to 150min/week Physical Activity Recommendation Dates: Start: 06/04/25 Expected End: 09/04/25 Description: Patient will continue at least 10-15 minutes of moderate physical activity such as brisk walking 2-3 days per week to support improved hypertension management and progress toward maintaining blood pressure within the provider-recommended goal range. Disciplines: Interdisciplinary Barriers 1. Patient Adherence 2. Understanding of Chronic Conditions Intervention: Provide Education and Materials on Activity Recommendations Dates: Start: 06/04/25 Responsible: Radha Howard RN Intervention: Address Barriers to Achieving Goal Dates: Start: 06/04/25 Responsible: Radha Howard RN Goal: Has Evidence-Based HTN Treatment Plan Dates: Start: 06/04/25 Expected End: 09/04/25 Description: Patient will actively participate in managing their blood pressure by taking prescribed medications as directed, monitoring blood pressure at home, attending scheduled follow-up visits, and making agreed-upon lifestyle changes (such as reducing sodium intake and increasing physical activity) in order to maintain blood pressure at or below target goal. Disciplines: Interdisciplinary Barriers 1. Patient Adherence 2. Lack of compliance Intervention: Patient Teach-Back of Hypertension Treatment Plan Dates: Start: 06/04/25 Responsible: Radha Howard RN Goal: Manage Hypertension Dates: Start: 06/04/25 Expected End: 09/04/25 Disciplines: Interdisciplinary Intervention: Evaluate compliance with independence in blood pressure monitoring, recording resultsand notifying RN or physician or findings outside of target. Dates: Start: 06/04/25 Responsible: Radha Howard RN Problem: Medication Concerns Dates: Start: 06/04/25 Disciplines: Interdisciplinary Goal: Improve Medication Access Dates: Start: 06/04/25 Expected End: 09/04/25 Description: Patient will adhere to all prescribed medications and will notify their pharmacy, primary care provider or prescriber when medication refills are needed to prevent missed doses. Disciplines: Interdisciplinary Barriers 1. Patient Adherence 2. Lack of compliance 3. Health literacy Intervention: Assess Medication Supply and Need For Refills. Dates: Start: 06/04/25 Responsible: Radha Howard RN Goal: Improve Medication Management Dates: Start: 06/04/25 Expected End: 09/04/25 Disciplines: Interdisciplinary Intervention: Assess for Medication Side Effects Dates: Start: 06/04/25 Responsible: Radha Howard RN Intervention: Advise patient to alert all providers of specific condition. Dates: Start: 06/04/25 Responsible: Radha Howard RN Problem: Plan of Care Dates: Start: 06/04/25 Disciplines: Interdisciplinary Goal: Patient Centered Plan of Care Dates: Start: 06/04/25 Expected End: 09/04/25 Description: Patient will actively participate in care planning by collaborating with the care teamto set, review, and work toward personal health goals, demonstrating engagement in their overall treatment and wellness plan. Disciplines: Interdisciplinary Barriers 1. Patient Adherence Intervention: Evaluate effectiveness and adequacy of plan of care, need for changes in plan of care, disciplines and frequency of visits. Involve and communicate with patient/ caregiver/ family/ interdisciplinary team/Facility staff in plan of care review and changes. Dates: Start: 06/04/25 Responsible: Radha Howard RN Intervention: Evaluate Plan of Care and Goal progression in conjunction with patient and/or caregiver. Dates: Start: 06/04/25 Responsible: Radha Howard RN Problem: SDOH Needs Dates: Start: 06/04/25 Disciplines: Interdisciplinary Goal: Support SDOH Needs Dates: Start: 06/04/25 Expected End: 09/04/25 Description: Patient will communicate any social, financial, or environmental challenges that affect their health with care management team so that they can help connect with available resources and supports. Disciplines: Interdisciplinary Barriers 1. Financial Intervention: Evaluate need for community resources. Dates: Start: 06/04/25 Responsible: Radha Howard RN Problem: Self Management Dates: Start: 06/04/25 Disciplines: Interdisciplinary Goal: Patient understands and has a plan for managing symptoms and knows when to contact physician Dates: Start: 06/04/25 Expected End: 09/04/25 Description: Patient will call their primary care provider's office or utilize walk in center for any new or urgent health concerns to ensure timely follow-up and appropriate adjustments to the treatment plan. Disciplines: Interdisciplinary Barriers 1. Patient Adherence 2. Health literacy Intervention: Coordinate Care with Provider Dates: Start: 06/04/25 Responsible: Radha Howard RN Intervention: Provide Information for 24-Hour Nurse Line Dates: Start: 06/04/25 Responsible: Radha Howard RN Intervention: Patient Teach-Back of Symptom Response Plan Dates: Start: 06/04/25 Responsible: Radha Howard RN Intervention: Provide Contact and After-Hours Information Dates: Start: 06/04/25 Responsible: Radha Howard RN Problem: Weight Management Dates: Start: 06/04/25 Disciplines: Interdisciplinary Goal: Optimal Weight Management Dates: Start: 06/04/25 Expected End: 09/04/25 Description: Patient will follow the associate professor of archaeology's recommendations by consuming the suggested high-calorie, nutrient-dense meals and snacks and incorporating any prescribed supplements daily with progress measured by consistent food logging and achieving a gradual weight gain. Disciplines: Interdisciplinary Barriers 1. Food Insecurity 2. Financial 3. Health literacy Intervention: Nutrition Program Referral Dates: Start: 06/04/25 Responsible: Radha Howard RN Intervention: Coordinate Arrangements for Supplemental Nutrition Needs Dates: Start: 06/04/25 Responsible: Radha Howard RN Resolved There are no resolved problems. documented in this encounter Plan of Treatment Upcoming Encounters Date Type Department Care Team (Late st Contact Info) Description 07/23/2025 9:00 AM EST Office Visit [facility] MED[facility]INE [address] [place] [address] Alexander Jones MD [address] [place] [address] 07/24/2025 10:00 AM EST Office Visit [facility] OPTOMETRY [address] [place] [address] TarkaTory, OD [address] [place] [address] 08/12/2025 9:30 AM EST Office Visit [facility] ADULT DENTAL [address] [place] [address] Reji Manning, YOVANI [address] [place] [address] documented as of this encounter Goals Goal [...] documented as of this encounter Care Teams Document Management Analyst Relationship Specialty Start Date End Date Vince Lockhart MD [address] [place] [address] PCP - General Internal Medicine 04/10/14 Radha Howard RN [address] [place] [address] Registered Nurse Family Medicine 05/12/25 Shelbi Santamaria 05/12/25 [facility] 12/29/23 documented as of this encounter
--- OUTSIDE RECORDS SUMMARY | 2025-07-09 09:50 | XMS_ITS | Encounter Summary ---
Author Organization [employer] Address [address] [facility] 7t [place] [address] Care Team Providers Care Telecommunications Analyst Name Role Phone Vince Lockhart MD Primary Care Provide r Radha Howard RN Unavailable [phone] Shelbi Santamaria Unavailable Reason for Visit * Reason Comments Med Refill Encounter Details Date Type Department Care Team ([facility] st Contact Info) Description 08/21/2024 Refill [facility] [address] [place], [place] [phone] Vince Lockhart MD [address] [place], [place] [phone] Social History Tobacco Use Types Packs/Day Years [...] the past 12 months, has t he [employer], gas, oil or water company threatened to [...] EST Office Visit [facility] [address] [place] [address] Alexander Jones MD [address] [place] [address] 07/24/2025 10:00 AM EST Office Visit [facility] OPTOMETRY [address] [place] [address] Tory Garcia, OD [address] [place] [address] 08/12/2025 9:30 AM EST Office Visit [facility] ADULT DENTAL [address] [place] [address] Reji Manning, YOVANI [address] [place] [address] documented as of this encounter Goals Goal [...] documented as of this encounter Care Teams Telecommunications Analyst Relationship Specialty Start Date End Date Vince Lockhart MD [address] [place] [address] PCP - General Internal Medicine 04/10/14 Radha Howard, GUERO [address] [place] [address] Registered Nurse Family Medicine 05/12/25 Shelbi Santamaria 05/12/25 [facility] 12/29/23 documented as of this encounter
--- OUTSIDE RECORDS SUMMARY | 2025-07-09 09:50 | XMS_ITS | Encounter Summary ---
Author Organization [employer] Address [address] [facility] 7t [place] [address] Care Team Providers Care Long Distance Operator Name Role Phone Vince Lockhart MD Primary Care Provide r Radha Howard RN Unavailable [phone] Shelbi Santamaria Unavailable Reason for Visit * Reason Onset Date Comments Dr. Bower request [facility] 07/04/2025 Encounter Details Date Type Department Care Team ([facility] st Contact Info) Description 07/04/2025 Telephone [facility] ADULT DENTAL [address] [place], [place] [phone] Nils Bower DDS [address] [place] [address] Dr. Bower request for script to be sent to different pharm Social History Tobacco Use Types Packs/Day Years [...] * Telephone Encounter - Yamel Greene - 07/04/2025 10:56 AM EST Message for Dr. Bower Patient called in stating that script was sent to wrong pharmacy. Clarified with patient that script was sent to pharmacy selected on chart. They would like script to be sent to [facility] on [address] [place] [address] in [place]. This pharmacy was listed as second option . It has been updated as primary pharmacy. Please resent script. documented in this encounter Plan of Treatment Upcoming Encounters Date Type Department Care Team (Late st Contact Info) Description 07/23/2025 9:00 AM EST Office Visit [facility] MEDICINE [address] [place] [address] Alexander Jones MD [address] [place] [address] 07/24/2025 10:00 AM EST Office Visit [facility] OPTOMETRY [address] [place] [address] Tory Garcia, OD [address] [place] [address] 08/12/2025 9:30 AM EST Office Visit [facility] ADULT DENTAL [address] [place] [address] Reji Manning, DMD [address] [place] [address] documented as of this encounter Goals Goal [...] documented as of this encounter Care Teams Long Distance Operator Relationship Specialty Start Date End Date Vince Lockhart MD [address] [place] [address] PCP - General Internal Medicine 04/10/14 Radha Howard RN [address] [place] [address] Registered Nurse Family Medicine 05/12/25 Shelbi Santamaria 05/12/25 [facility] 12/29/23 documented as of this encounter
--- OUTSIDE RECORDS SUMMARY | 2025-07-09 09:50 | XMS_ITS ---
Author Organization [employer] Address [address] [facility] 7t [place] [address] Care Team Providers Care Dog Pound Attendant Name Role Phone Vince Lockhart MD Primary Care Provide r Radha Howard RN Unavailable Shelbi Santamaria Unavailable CM Complex Status:Enrolled (Active) Start date:05/12/2025 Enrollment date:06/04/2025 Enrollment reason:ADT Feed Overview ADT- Pt admitted to [facility] on 05/09/25. Case Team Name Relationship Phone Radha Howard RN(Responsible Staff) Registered Nurse Continued Care and Services Coordination
--- OUTSIDE RECORDS SUMMARY | 2025-07-09 09:50 | XMS_ITS | Encounter Summary ---
Author Organization [employer] Address [address] [facility] [address]t [place] [address] Care Team Providers Care Bullet Swaging Machine Adjuster Name Role Phone Vince Lockhart MD Primary Care Provide r Osiel Mendez PharmD Unavailable [phone] Radha Howard RN Unavailable [phone] Shelbi Santamaria Unavailable Encounter Details Date Type Department Care Team (Late st Contact Info) Description 03/01/2023 Telephone [facility] MEDICINE [address] [place], [place] [phone] Vince Lockhart MD [address] [place], [place] [phone] Social History Tobacco Use Types Packs/Day Years [...] 10:37 AM EDT Tc from [facility] with [facility] requesting a call from a nurse in regards to having conflict with another agency. Please contact wilson at [phone] documented in this encounter Plan of Treatment Upcoming Encounters Date Type Department Care Team (Late st Contact Info) Description 07/23/2025 9:00 AM EST Office Visit [facility] MEDICINE [address] [place] [address] Alexander Jones MD [address] [place] [address] 07/24/2025 10:00 AM EST Office Visit [facility] OPTOMETRY [address] [place] [address] TarkaTory, OD [address] [place] [address] 08/12/2025 9:30 AM EST Office Visit [facility] ADULT DENTAL [address] [place] [address] Reji Manning, DMD [address] [place] [address] documented as of this encounter Goals Goal [...] documented as of this encounter Care Teams Bullet Swaging Machine Adjuster Relationship Specialty Start Date End Date Vince Lockhart MD [address] [place] [address] PCP - General Internal Medicine 04/10/14 Osiel Mendez, PharmD [address] [place] [address] Pharmacist Internal Medicine 12/19/22 06/11/23 Radha Howard, GUERO [address] [place] [address] Registered Nurse Family Medicine 05/12/25 Shelbi Santamaria 05/12/25 [facility] 12/29/23 documented as of this encounter
--- OUTSIDE RECORDS SUMMARY | 2025-07-09 09:51 | XMS_ITS | Encounter Summary ---
Author Organization [employer] Address 75 [facility] 7t [place] [address] Care Team Providers Care Drying Room Supervisor Name Role Phone Vince Lockhart MD Primary Care Provide r Osiel Mendez PharmD Unavailable [phone] Radha Howard RN Unavailable [phone] Shelbi Santamaria Unavailable Reason for Visit * Reason Comments Med Refill Encounter Details Date Type Department Care Team (Late st Contact Info) Description 10/05/2022 Refill [facility] MEDICINE [address] [place], [place] [phone] Vince Lockhart MD 230 [place] [address] Depressive disorder Social History Tobacco Use Types [...] Department Care Team (Late Contact Info) Description 07/23/2025 9:00 AM EST Office Visit [facility] MEDICINE [address] [place] [address] Alexander Jones MD 230 [place] [address] 07/24/2025 10:00 AM EST Office Visit [facility] OPTOMETRY [address] [place] [address] Tory Garcia, OD 267 [place] [address] 08/12/2025 9:30 AM EST Office Visit [facility] ADULT DENTAL [address] [place] [address] Reji Manning, YOVANI [address] [place] [address] documented as of this encounter Visit Diagnoses Diagnosis Depressive disorder Depressive disorder, not elsewhere classified documented in this encounter Care Teams Drying Room Supervisor Relationship Specialty Start Date End Date Vince Lockhart MD [address] [place] [address] PCP - General Internal Medicine 04/10/14 Osiel Mendez PharmD [address] [place] [address] Pharmacist Internal Medicine 12/19/22 06/11/23 Radha Howard RN [address] [place] [address] Registered Nurse Family Medicine 05/12/25 Shelbi Santamaria 05/12/25 [facility] 12/29/23 documented as of this encounter
--- OUTSIDE RECORDS SUMMARY | 2025-07-09 09:51 | XMS_ITS | Encounter Summary ---
Author Organization [employer] Address 75 [facility] 7t [place] [address] Care Team Providers Care Syrup Machine Laborer Name Role Phone Vince Lockhart MD Primary Care Provide r Radha Howard RN Unavailable [phone] Shelbi Santamaria Unavailable Reason for Visit * Reason Comments Med Refill Encounter Details Date Type Department Care Team (Late st Contact Info) Description 04/10/2024 Refill [facility] MED[facility]INE 230 [place], [place] [phone] Felicia Hdz ANP 230 [place], [place] [phone] Social History Tobacco Use Types Packs/Day Years [...] Description 07/23/2025 9:00 AM EST Office Visit [facility] [address] [place] [address] Alexander Jones MD 230 [place] [address] 07/24/2025 10:00 AM EST Office Visit [facility] OPTOMETRY 267 [place] [address] Tory Garcia, OD 267 [place] [address] 08/12/2025 9:30 AM EST Office Visit [facility] ADULT DENTAL [address] [place] [address] Reji Manning, YOVANI [address] [place] [address] documented as of this encounter Goals Goal [...] documented as of this encounter Care Teams Syrup Machine Laborer Relationship Specialty Start Date End Date Vince Lockhart MD 230 [place] [address] PCP - General Internal Medicine 04/10/14 Radha Howard RN 230 [place] [address] Registered Nurse Family Medicine 05/12/25 Shelbi Santamaria 05/12/25 [facility] 12/29/23 documented as of this encounter
--- OUTSIDE RECORDS SUMMARY | 2025-07-09 09:51 | XMS_ITS | Encounter Summary ---
Author Organization [employer] Address 75 [facility] 7t [place] [address] Care Team Providers Care Roving Court Reporter Name Role Phone Vince Lockhart MD Primary Care Provide r Radha Howard RN Unavailable [phone] Shelbi Santamaria Unavailable Reason for Visit * Reason Comments Med Refill Encounter Details Date Type Department Care Team ([facility] st Contact Info) Description 03/18/2024 Refill [facility] PEDS [address] [place], [place] [phone] Yajaira Birmingham MD 230 [place], [place] [phone] Depressive disorder Social History Tobacco Use Types [...] the past 12 months, has t he [employer], gas, oil or water company threatened to [...] EST Office Visit [facility] MEDICINE 230 [place] [address] Alexander Jones MD 230 [place] [address] 07/24/2025 10:00 AM EST Office Visit [facility] OPTOMETRY [address] [place] [address] Tory Garcia, OD 267 [place] [address] 08/12/2025 9:30 AM EST Office Visit [facility] ADULT DENTAL 230 [place] [address] Reji Manning, YOVANI 230 [place] [address] documented as of this encounter Goals Goal [...] documented as of this encounter Care Teams Roving Court Reporter Relationship Specialty Start Date End Date Vince Lockhart MD 230 [place], [place] [phone] PCP - General Internal Medicine 04/10/14 Radha Howard RN 230 [place] [address] Registered Nurse Family Medicine 05/12/25 Shelbi Santamaria 05/12/25 [facility] 12/29/23 documented as of this encounter
--- OUTSIDE RECORDS SUMMARY | 2025-07-09 09:51 | XMS_ITS | Encounter Summary ---
Author Organization [employer] Address 75 [facility] 7t [place] [address] Care Team Providers Care K 12 School Professional Name Role Phone Vince Lockhart MD Primary Care Provide r Osiel Mendez PharmD Unavailable [phone] Radha Howard RN Unavailable [phone] Shelbi Santamaria Unavailable Encounter Details Date Type Department Care Team (Late st Contact Info) Description 09/26/[address] [facility] MEDICINE [address] [place] [address] [phone] Vince Lockhart MD [address] [place] [address] [phone] Social History Tobacco Use Types Packs/Day Years [...] Visit [facility] MEDICINE [address] [place] [address] [phone] Alexander Jones MD [address] [place] [address] [phone] 07/24/2025 10:00 AM EST Office Visit [facility] OPTOMETRY 267 [place] [address] Derekaustyn Tory, OD 267 [place] [address] 08/12/2025 9:30 AM EST Office Visit [facility] ADULT DENTAL 230 [place] [address] Reji Manning, DMD 230 [place] [address] documented as of this encounter Visit Diagnoses Not on filedocumented in this encounter Care Teams K 12 School Professional Relationship Specialty Start Date End Date Vince Lockhart MD [address] [place] [address] PCP - General Internal Medicine 04/10/14 Osiel Mendez, MayteD [address] [place] [address] [phone] Pharmacist Internal Medicine 12/19/22 06/11/23 Radha Howard, GUERO [address] [place] [address] Registered Nurse Family Medicine 05/12/25 Shelbi Santamaria 05/12/25 [facility] 12/29/23 documented as of this encounter
--- OUTSIDE RECORDS SUMMARY | 2025-07-09 09:51 | XMS_ITS | Encounter Summary ---
Author Organization [employer] Address 75 [facility] 7t [place] [address] Care Team Providers Care Naval Police Coxswain Name Role Phone Vince Lockhart MD Primary Care Provide r Radha Howard RN Unavailable [phone] Shelbi Santamaria Unavailable Reason for Visit * Reason Comments Med Refill Encounter Details Date Type Department Care Team ([facility] st Contact Info) Description 06/26/2023 Refill [facility] MEDICINE 230 [place], [place] [phone] Vince Lockhart MD 230 [place], [place] [phone] Mixed hyperlipidemia Social History Tobacco Use Types [...] the past 12 months, has t he [employer], [employer], oil or water [employer] threatened to shut off services in your [...] [facility] 230 [place] [address] Alexander Jones MD 230 [place] [address] 07/24/2025 10:00 AM EST Office Visit [facility] OPTOMETRY 267 [place] [address] Tory Garcia, OD 267 [place] [address] 08/12/2025 9:30 AM EST Office Visit [facility] ADULT DENTAL 230 [place] [address] Reji Manning DMD [address] [place] [address] documented as of this encounter Goals Goal [...] documented as of this encounter Care Teams Naval Police Coxswain Relationship Specialty Start Date End Date Vince Lockhart MD [address] [place] [address] [phone] PCP - General Internal Medicine 04/10/14 Radha Howard RN [address] [place] [address] Registered Nurse Family Medicine 05/12/25 Shelbi Santamaria 05/12/25 [facility] 12/29/23 documented as of this encounter
--- OUTSIDE RECORDS SUMMARY | 2025-07-09 09:51 | XMS_ITS | Encounter Summary ---
Author Organization [employer] Address 75 [facility] 7t [place] [address] Care Team Providers Care Ems Helicopter Pilot Name Role Phone Vince Lockhart MD Primary Care Provide r Osiel Mendez PharmD Unavailable [phone] Radha Howard RN Unavailable Shelbi Santamaria Unavailable Reason for Visit * Reason Comments Med Refill Encounter Details Date Type Department Care Team (Late st Contact Info) Description 10/11/2022 Refill [facility] MEDICINE 230 [place], [place] [phone] Vince Lockhart MD 230 [place] [address] Depressive disorder Social History Tobacco Use Types [...] Description 07/23/2025 9:00 AM EST Office Visit [facility] MEDICINE 230 [place] [address] Alexander Jones MD 230 [place] [address] 07/24/2025 10:00 AM EST Office Visit [facility] OPTOMETRY 267 [place] [address] Tory Garcia, OD 267 [place] [address] 08/12/2025 9:30 AM EST Office Visit [facility] ADULT DENTAL 230 [place] [address] Reji Manning, YOVANI 230 [place] [address] documented as of this encounter Visit Diagnoses Diagnosis Depressive disorder Depressive disorder, not elsewhere classified documented in this encounter Care Teams Ems Helicopter Pilot Relationship Specialty Start Date End Date Vince Lockhart MD [address] [place] [address] PCP - General Internal Medicine 04/10/14 Osiel Mendez PharmD [address] [place] [address] Pharmacist Internal Medicine 12/19/22 06/11/23 Radha Howard RN [address] [place] [address] Registered Nurse Family Medicine 05/12/25 Shelbi Santamaria 05/12/25 [facility] 12/29/23 documented as of this encounter
--- OUTSIDE RECORDS SUMMARY | 2025-07-09 09:51 | XMS_ITS | Encounter Summary ---
Author Organization [employer] Address 75 [facility] 7t [place] [address] Care Team Providers Care Pulverizer Tender Name Role Phone Vince Lockhart MD Primary Care Provide r Radha Howard RN Unavailable [phone] Shelbi Santamaria Unavailable Reason for Visit * Reason Onset Date Comments Med Refill 07/13/2023 Encounter Details Date Type Department Care Team (Late st Contact Info) Description 07/13/[address] [facility] MEDICINE 230 [place], [place] [phone] Vince Lockhart MD 230 [place], [place] [phone] Med Refill Social History Tobacco Use Types [...] the past 12 months, has t he [employer], gas, oil or water Maintenance Assistant threatened to shut off services in your [...] Garvin LPN - 07/13/2023 12:46 PM EST BACK UP MACHINE OPERATOR checked Ambien last filled on 06/30/23 [...] [facility] 230 [place] [address] Alexander Jones MD 230 [place] [address] 07/24/2025 10:00 AM EST Office Visit [facility] OPTOMETRY 267 [place] [address] Jose Tory, OD 267 [place] [address] 08/12/2025 9:30 AM EST Office Visit [facility] ADULT DENTAL 230 [place] [address] Reji Manning, DMD 230 [place] [address] documented as of this encounter Goals Goal [...] documented as of this encounter Care Teams Pulverizer Tender Relationship Specialty Start Date End Date Vince Lockhart MD 230 [place] [address] PCP - General Internal Medicine 04/10/14 Radha Howard RN [address] [place] [address] Registered Nurse Family Medicine 05/12/25 Shelbi Santamaria 05/12/25 [facility] 12/29/23 documented as of this encounter
--- OUTSIDE RECORDS SUMMARY | 2025-07-09 09:51 | XMS_ITS | Clinical Summary ---
Author Organization [facility] [address] ity Address [address] [place] [address] Care Team Providers Care Malt Loader Name Role Phone Unavailable Primary Care Provider [...] Depression Screening 07/17/2024 COVID-19 Vaccine (1 - 2024-2 6 season) 2025 Influenza Vaccine (#1) 2025 RSV [...]
--- OUTSIDE RECORDS SUMMARY | 2025-07-09 09:51 | XMS_ITS | Encounter Summary ---
Author Organization [employer] Address 75 [facility] 7t [place] [address] Care Team Providers Care Biology Faculty Member Name Role Phone Vince Lockhart MD Primary Care Provide r Osiel Mendez PharmD Unavailable [phone] Radha Howard RN Unavailable [phone] Shelbi Santamaria Unavailable Reason for Visit * Reason Onset Date Comments triage 10/03/2022 Encounter Details Date Type Department Care Team ([facility] st Contact Info) Description 10/03/2022 Telephone [facility] MEDICINE 230 [place], [place] [phone] Vince Lockhart MD 230 [place], [place] [phone] triage Social History Tobacco Use Types Packs/Day [...] requires assisted transportation. [facility] has no car and [...] now The caller accepted this outcome speaks persian. documented in this encounter Plan of Treatment Upcoming Encounters Date Type Department Care Team (Late st Contact Info) Description 07/23/2025 9:00 AM EST Office Visit [facility] MEDICINE 230 [place] [address] Alexander Jones MD 230 [place] [address] 07/24/2025 10:00 AM EST Office Visit [facility] OPTOMETRY 267 [place] [address] Tory Garcia, OD 267 [place], [place] [phone] 08/12/2025 9:30 AM EST Office Visit [facility] ADULT DENTAL 230 [place], [place] [phone] Reji Manning, DMD 230 [place] [address] documented as of this encounter Visit Diagnoses Not on filedocumented in this encounter Care Teams Biology Faculty Member Relationship Specialty Start Date End Date Vince Lockhart MD 230 [place], [place] [phone] PCP - General Internal Medicine 04/10/14 Osiel Mendez PharmD [address] [place] [address] [phone] Pharmacist Internal Medicine 12/19/22 06/11/23 Radha Howard, GUERO 230 [place], [place] [phone] Registered Nurse Family Medicine 05/12/25 Shelbi Santamaria 05/12/25 [facility] 12/29/23 documented as of this encounter
--- OUTSIDE RECORDS SUMMARY | 2025-07-09 09:51 | XMS_ITS | Encounter Summary ---
Author Organization [employer] Address 75 [facility] 7t [place] [address] Care Team Providers Care Director Of Quality Control Name Role Phone Vince Lockhart MD Primary Care Provide r Osiel Mendez PharmD Unavailable [phone] Radha Howard RN Unavailable [phone] Shelbi Santamaria Unavailable Reason for Visit * Reason Comments Med Refill Encounter Details Date Type Department Care Team (Late st Contact Info) Description 09/09/2022 Telephone [facility] MEDICINE 230 [place], [place] [phone] Vince Lockhart MD 230 [place], [place] [phone] Med Refill Social History Tobacco Use Types [...] PM EST ----- Pt entered care at [facility] 09/15. Out now but not sure of discharge date. Pharmacy called to tell us that the facility made some med changes. Pt continues to no show and cancel appointments. Tryto get paperwork and reach out to pt documented in this encounter Plan of Treatment Upcoming Encounters Date Type Department Care Team (Late st Contact Info) Description 07/23/2025 9:00 AM EST Office Visit [facility] MEDICINE [address] [place] [address] Alexander Jones MD [address] [place] [address] 07/24/2025 10:00 AM EST Office Visit [facility] OPTOMETRY 267 [place] [address] Tory Garcia, OD 267 [place] [address] 08/12/2025 9:30 AM EST Office Visit [facility] ADULT DENTAL [address] [place] [address] Reji Manning, YOVANI [address] [place] [address] documented as of this encounter Visit Diagnoses Diagnosis Depressive disorder Depressive disorder, not elsewhere classified Difficulty sleeping Unspecified sleep disturbance documented in this encounter Care Teams Director Of Quality Control Relationship Specialty Start Date End Date Vince Lockhart MD 230 [place] [address] PCP - General Internal Medicine 04/10/14 Osiel Mendez PharmD 230 [place] [address] Pharmacist Internal Medicine 12/19/22 06/11/23 Radha Howard, GUERO 230 [place] [address] Registered Nurse Family Medicine 05/12/25 Shelbi Santamaria 05/12/25 [facility] 12/29/23 documented as of this encounter
--- OUTSIDE RECORDS SUMMARY | 2025-07-09 09:51 | XMS_ITS | Encounter Summary ---
Author Organization [employer] Address 75 [facility] 7t [place] [address] Care Team Providers Care Transformer Tester Name Role Phone Vince Lockhart MD Primary Care Provide r Radha Howard RN Unavailable [phone] Shelbi Santamaria Unavailable Reason for Visit * Reason Onset Date Comments Nurse Triage 02/28/2024 Encounter Details Date Type Department Care Team (Late st Contact Info) Description 02/28/2024 Telephone [facility] MEDICINE 230 [place], [place] [phone] Vince Lockhart MD 230 [place], [place] [phone] Nurse Triage Social History Tobacco Use Types [...] the past 12 months, has t he [email or web address], gas, oil or water [employer] threatened to shut off services in your [...] 02/28/2024 1:18 PM EDT Triage call [place] [id number]. Pt reports headache and some dizziness for [...] call. Pt is advised to come to [facility] today and Pt asks if alright [...] Description 07/23/2025 9:00 AM EST Office Visit [facility] MEDICINE 230 [place] [address] Alexander Jones MD 230 [place] [address] 07/24/2025 10:00 AM EST Office Visit [facility] OPTOMETRY [address] [place] [address] Tory Garcia, OD 267 [place] [address] 08/12/2025 9:30 AM EST Office Visit [facility] ADULT DENTAL 230 [place] [address] Reji Manning, YOVANI 230 [place] [address] documented as of this encounter Goals Goal [...] documented as of this encounter Care Teams Transformer Tester Relationship Specialty Start Date End Date Vince Lockhart MD 230 [place] [address] PCP - General Internal Medicine 04/10/14 Radha Howard RN 230 [place] [address] Registered Nurse Family Medicine 05/12/25 Shelbi Santamaria 05/12/25 [facility] 12/29/23 documented as of this encounter
--- OUTSIDE RECORDS SUMMARY | 2025-07-09 09:51 | XMS_ITS | Encounter Summary ---
Author Organization [employer] Address 75 [facility] 7t [place] [address] Care Team Providers Care Strapper And Buffer Name Role Phone Vince Lockhart MD Primary Care Provide r Osiel Mendez PharmD Unavailable [phone] Radha Howard RN Unavailable [phone] Shelbi Santamaria Unavailable Encounter Details Date Type Department Care Team (Late st Contact Info) Description 10/03/2022 Abstract [facility] MEDICINE [address] [place] [address] [phone] Vince Lockhart MD [address] [place] [address] [phone] Social History Tobacco Use Types Packs/Day Years [...] Description 07/23/2025 9:00 AM EST Office Visit [facility] MEDICINE 230 [place] [address] Alexander Jones MD 230 [place] [address] 07/24/2025 10:00 AM EST Office Visit [facility] OPTOMETRY 267 [place] [address] Taraustyn Tory, OD 267 [place] [address] 08/12/2025 9:30 AM EST Office Visit [facility] ADULT DENTAL 230 [place] [address] Reji Manning, YOVANI [address] [place] [address] documented as of this encounter Visit Diagnoses Not on filedocumented in this encounter Care Teams Strapper And Buffer Relationship Specialty Start Date End Date Vince Lockhart MD [address] [place] [address] PCP - General Internal Medicine 04/10/14 Osiel Mendez PharmD [address] [place] [address] Pharmacist Internal Medicine 12/19/22 06/11/23 Radha Howard RN [address] [place] [address] Registered Nurse Family Medicine 05/12/25 Shelbi Santamaria 05/12/25 [facility] 12/29/23 documented as of this encounter
--- OUTSIDE RECORDS SUMMARY | 2025-07-09 09:51 | XMS_ITS | Encounter Summary ---
Author Organization [employer] Address 75 [facility] 7t [place] [address] Care Team Providers Care Woodwind Instrument Repairer Name Role Phone Vince Lockhart MD Primary Care Provide r Osiel Mendez PharmD Unavailable [phone] Radha Howard RN Unavailable [phone] Shelbi Santamaria Unavailable Reason for Visit * Reason Comments Med Refill Encounter Details Date Type Department Care Team (Late st Contact Info) Description 10/07/2022 Refill [facility] MEDICINE 230 [place], [place] [phone] Vince Lockhart MD 230 [place] [address] Depressive disorder Social History Tobacco Use Types [...] 07/23/2025 9:00 AM EST Office Visit [facility] MEDICINE 230 [place] [address] Alexander Jones MD 230 [place] [address] 07/24/2025 10:00 AM EST Office Visit [facility] OPTOMETRY [address] [place] [address] Tory Garcia, OD 267 [place] [address] 08/12/2025 9:30 AM EST Office Visit [facility] ADULT DENTAL 230 [place] [address] Reji Manning, YOVANI 230 [place] [address] documented as of this encounter Visit Diagnoses Diagnosis Depressive disorder Depressive disorder, not elsewhere classified documented in this encounter Care Teams Woodwind Instrument Repairer Relationship Specialty Start Date End Date Vince Lockhart MD [address] [place] [address] PCP - General Internal Medicine 04/10/14 Osiel Mendez PharmD [address] [place] [address] Pharmacist Internal Medicine 12/19/22 06/11/23 Radha Howard RN [address] [place] [address] Registered Nurse Family Medicine 05/12/25 Shelbi Santamaria 05/12/25 [facility] 12/29/23 documented as of this encounter
--- OUTSIDE RECORDS SUMMARY | 2025-07-09 09:51 | XMS_ITS | Encounter Summary ---
Author Organization [employer] Address 75 [facility] 7t [place] [address] Care Team Providers Care Flight Physician Name Role Phone Vince Lockhart MD Primary Care Provide r Radha Howard RN Unavailable [phone] Shelbi Santamaria Unavailable Reason for Visit * Reason Comments Med Refill Encounter Details Date Type Department Care Team ([facility] st Contact Info) Description 07/04/2023 Refill [facility] MEDICINE 230 [place], [place] [phone] Monse Gonzalez MD 230 [place], [place] [phone] Social History Tobacco Use Types Packs/Day Years [...] the past 12 months, has t he [employer], gas, oil or water company threatened to [...] 07/23/2025 9:00 AM EST Office Visit [facility] MEDICINE 230 [place] [address] Alexander Jones MD [address] [place] [address] 07/24/2025 10:00 AM EST Office Visit [facility] OPTOMETRY [address] [place] [address] Tory Garcia, OD 267 [place] [address] 08/12/2025 9:30 AM EST Office Visit [facility] ADULT DENTAL 230 [place] [address] Reji Manning, YOVANI 230 [place] [address] documented as of this encounter Goals Goal [...] documented as of this encounter Care Teams Flight Physician Relationship Specialty Start Date End Date Vince Lockhart MD 230 [place], [place] [phone] PCP - General Internal Medicine 04/10/14 Radha Howard RN [address] [place], [place] [phone] Registered Nurse Family Medicine 05/12/25 Shelbi Santamaria 05/12/25 [facility] 12/29/23 documented as of this encounter
--- OUTSIDE RECORDS SUMMARY | 2025-07-09 09:51 | XMS_ITS | Encounter Summary ---
Author Organization [employer] Address 75 [facility] 7t [place] [address] Care Team Providers Care Auto Parts Manager Name Role Phone Vince Lockhart MD Primary Care Provide r Osiel Mendez PharmD Unavailable [phone] Radha Howard RN Unavailable [phone] Shelbi Santamaria Unavailable Encounter Details Date Type Department Care Team (Late st Contact Info) Description 01/12/2023 Abstract [facility] MEDICINE [address] [place], [place] [phone] Vince Lockhart MD [address] [place], [place] [phone] Social History Tobacco Use Types Packs/Day Years [...] 07/23/2025 9:00 AM EST Office Visit [facility] MEDICINE [address] [place] [address] Alexander Jones MD [address] [place] [address] 07/24/2025 10:00 AM EST Office Visit [facility] OPTOMETRY [address] [place] [address] Tory Garcia, OD [address] [place] [address] 08/12/2025 9:30 AM EST Office Visit [facility] ADULT DENTAL [address] [place] [address] Reji Manning, YOVANI [address] [place] [address] documented as of this encounter Goals Goal [...] documented as of this encounter Care Teams Auto Parts Manager Relationship Specialty Start Date End Date Vince Lockhart MD [address] [place] [phone] PCP - General Internal Medicine 04/10/14 Osiel Mendez PharmD [address] [place] [address] Pharmacist Internal Medicine 12/19/22 06/11/23 Radha Howard RN [address] [place] [address] Registered Nurse Family Medicine 05/12/25 Shelbi Santamaria 05/12/25 [facility] [place] 12/29/23 documented as of this encounter
--- OUTSIDE RECORDS SUMMARY | 2025-07-09 09:51 | XMS_ITS | Encounter Summary ---
Author Organization [employer] Address 75 [facility] 7t [place] [address] Care Team Providers Care Director Of Curriculum And Instruction Name Role Phone Vince Lockhart MD Primary Care Provide r Radha Howard RN Unavailable [phone] Shelbi Santamaria Unavailable Reason for Visit * Reason Onset Date Comments Created in Error 04/09/2024 Encounter Details Date Type Department Care Team ([facility] st Contact Info) Description 04/09/[address] [facility] MEDICINE [address] [place], [place] [phone] Vince Lockhart MD 230 [place], [place] [phone] Created in Error Social History Tobacco Use [...] the past 12 months, has t he [employer], [employer], oil or water [employer] threatened to shut off services in your [...] [facility] MEDICINE [address] [place] [address] Alexander Jones MD [address] [place] [address] 07/24/2025 10:00 AM EST Office Visit [facility] OPTOMETRY [address] [place] [address] Tory Garcia, OD [address] [place] [address] 08/12/2025 9:30 AM EST Office Visit [facility] ADULT DENTAL [address] [place] [address] Reji Manning, YOVANI [address] [place] [address] documented as of this encounter Goals Goal [...] of this encounter Care Teams Director Of Curriculum And Instruction Relationship Specialty Start Date End Date Vince Lockhart MD [address] [place] [address] PCP - General Internal Medicine 04/10/14 Radha Howard RN [address] [place] [address] Registered Nurse Family Medicine 05/12/25 Shelbi Santamaria 05/12/25 [facility] [place] 12/29/23 documented as of this encounter
--- OUTSIDE RECORDS SUMMARY | 2025-07-09 09:51 | XMS_ITS | Encounter Summary ---
Author Organization [email or web address] Address 75 [facility] 7t [place] [address] Care Team Providers Care Lining Maker Hand Name Role Phone Vince Lockhart MD Primary Care Provide r Osiel Mendez PharmD Unavailable [phone] Radha Howard RN Unavailable [phone] Shelbi Santamaria Unavailable Encounter Details Date Type Department Care Team (Late st Contact Info) Description 11/24/2022 Abstract [facility] MEDICINE [address] [place] [phone] Vince Lockhart MD [address] [place] [address] [phone] Social History Tobacco Use Types Packs/Day Years [...] Description 07/23/2025 9:00 AM EST Office Visit [facility] MEDICINE [address] [place] [address] Alexander Jones MD 230 [place] [address] 07/24/2025 10:00 AM EST Office Visit [facility] OPTOMETRY [address] [place] [address] Tory Garcia, OD 267 [place] [address] 08/12/2025 9:30 AM EST Office Visit [facility] ADULT DENTAL [address] [place] [address] Reji Manning, YOVANI [address] [place] [address] documented as of this encounter Procedures Procedure Name Priority Date/Time Associated Diagnosis Comments COLONOSCOPY Routine 01/08/2018 documented in this encounter Results * Colonoscopy (01/08/2018) Colonoscopy Normal Normal 01/08/2018 Narrative Yulisa Cochran - 01/08/2018 9:39 AM EDT Recommended 10 year follow up ( per provider notes) us Historical Provider [facility] Edited Result - Final documented in this encounter Visit Diagnoses Not on filedocumented in this encounter Care Teams Lining Maker Hand Relationship Specialty Start Date End Date Vince Lockhart MD [address] [place] [address] PCP - General Internal Medicine 04/10/14 Osiel Mendez, MayteD [address] [place] [address] Pharmacist Internal Medicine 12/19/22 06/11/23 Radha Howard, GUERO [address] [place] [address] Registered Nurse Family Medicine 05/12/25 Shelbi Santamaria 05/12/25 [facility] 12/29/23 documented as of this encounter
--- OUTSIDE RECORDS SUMMARY | 2025-07-09 09:51 | XMS_ITS | Encounter Summary ---
Author Organization [employer] Address 75 [facility] 7t [place] [address] Care Team Providers Care Stone Gang Sawyer Name Role Phone Vince Lockhart MD Primary Care Provide r Radha Howard RN Unavailable [phone] Shelbi Santamaria Unavailable Reason for Visit * Reason Comments Med Refill Encounter Details Date Type Department Care Team (Late st Contact Info) Description 02/19/2024 Refill [facility] MEDICINE [address] [place], [place] [phone] Vince Lockhart MD 230 [place], [place] [phone] Chronic midline low back pain without sciatica [...] the past 12 months, has t he [employer], [employer], oil or water [employer] threatened to shut off services in your [...] 9:00 AM EST Office Visit [facility] MEDICINE [address] [place] [address] Alexander Jones MD [address] [place] [address] 07/24/2025 10:00 AM EST Office Visit [facility] OPTOMETRY [address] [place] [address] Tory Garcia, OD [address] [place] [address] 08/12/2025 9:30 AM EST Office Visit [facility] ADULT DENTAL [address] [place] [address] Reji Manning DMD [address] [place] [address] documented as of this encounter Goals Goal [...] documented as of this encounter Care Teams Stone Gang Sawyer Relationship Specialty Start Date End Date Vince Lockhart MD [address] [place] [address] PCP - General Internal Medicine 04/10/14 Radha Howard RN [address] [place] [address] Registered Nurse Family Medicine 05/12/25 Shelbi Santamaria 05/12/25 [facility] 12/29/23 documented as of this encounter
--- OUTSIDE RECORDS SUMMARY | 2025-07-09 09:51 | XMS_ITS | Encounter Summary ---
Author Organization [employer] Address 75 [facility] 7t [place] [address] Care Team Providers Care Voip Network Engineer Name Role Phone Vince Lockhart MD Primary Care Provide r Osiel Mendez PharmD Unavailable [phone] Radha Howard RN Unavailable [phone] Shelbi Santamaria Unavailable Reason for Visit * Reason Onset Date Comments REQUEST FOR MANAGER CAMP REFERRAL 07/26/2022 I hernandez d regarding the pt's request for a referral for MANAGER CAMP services. He needs to state what ADL's he needs assistance with. There was no answer, and I reached a recording stating that the person's mailbox is full. I was unable to leave a msg. Encounter Details Date Type Department Care Team ([facility] Contact Info) Description 07/26/2022 Telephone [facility] MEDICINE [address] [place] [address] Vince Lockhart MD [address] [place], [place] [phone] REQUEST FOR MANAGER CAMP REFERRAL (I called regarding the pt's request for a referral for MANAGER CAMP services. He needs to state what ADL's [...] Description 07/23/2025 9:00 AM EST Office Visit [facility] MEDICINE [address] [place] [address] Alexander Jones MD [address] [place] [address] 07/24/2025 10:00 AM EST Office Visit [facility] OPTOMETRY [address] [place] [address] Tory Garcia, OD [address] [place] [address] 08/12/2025 9:30 AM EST Office Visit [facility] ADULT DENTAL [address] [place] [address] Reji Manning, DMD [address] [place] [address] documented as of this encounter Visit Diagnoses Not on filedocumented in this encounter Care Teams Voip Network Engineer Relationship Specialty Start Date End Date Vince Lockhart MD [address] [place] [address] PCP - General Internal Medicine 04/10/14 Osiel Mendez, MayteD [address] [place] [address] Pharmacist Internal Medicine 12/19/22 06/11/23 Radha Howard, GUERO [address] [place] [address] Registered Nurse Family Medicine 05/12/25 Shelbi Santamaria 05/12/25 [facility] 12/29/23 documented as of this encounter
[2025-07-09 09:52] LABS: Alanine Aminotransferase 10 U/L (0-40); Albumin Level 4.0 g/dL (3.5-5.0); Alkaline Phosphatase 78 U/L (39-117); Anion Gap 14 (12-20); Aspartate Amino Transferase 26 U/L (5-37); Blood Urea Nitrogen 10 mg/dL (9-16); Calcium 8.8 mg/dL (8.4-10.2); Carbon Dioxide 25 mmol/L (22-29); Chloride 103 mmol/L (96-108); Creatinine Clr Calc Pharmacy 80.4; Estimated Glomerular Filt Rate > 60; Potassium 3.7 mmol/L (3.3-5.1); Sodium 138 mmol/L (135-145); Total Protein 6.8 g/dL (6.5-8.0)
[2025-07-09 10:01] LABS: Troponin-I High Sensitivity < 2.7 ng/L (<3.5-35.0)
[2025-07-09 10:07] LABS: Resp Syncy Virus RNA Qual PCR NEGATIVE (Negative); SARS COV2 PCR INHOUSE NEGATIVE (Negative)
--- NOTE | 2025-07-09 10:35 | PC.NURSE ---
Pt yelled out, IV to left hand by EMS found to be on bed. New PIV placed to right wrist. Pt remains tachypenic and wheezing. Tachycardic to 120s. Placed on 2L via NC for SPO2 of 86% on room air. MD iverson
[2025-07-09 10:51] LABS: Venous Blood Gas Refer to POC result
[2025-07-09 10:52] LABS: VBG HCO3 23 mmol/L (22-26); VBG O2 % Saturation 90.0 %
--- NOTE | 2025-07-09 12:42 | PM.IMHP ---
History of Present Illness Date of Service: 07/09/25 Chief Complaint: sob 60-year-old gentleman [place]er-speaking history obtained via boat hand, vague historian, with past medical history of COPD, hyperlipidemia, hypertension, history of cocaine abuse, history of major depressive disorder with psychotic features, 30 pack year smoking history, history of pulmonary nodules being followed by pulmonology with yearly screening presented with acute onset of shortness of breath, chest pain due to cough and headache. Patient also complaining of subjective fevers. Patient use home inhalers with no improvement in symptoms. Patient lives alone denies sick contacts, no recent history of travel, denies allergy symptoms. EMS found patient sitting with finger oximetry in 80s % patient treated with DuoNeb and Solu-Medrol in route by EMS. On arrival to ED patient was noted to be in mild respiratory distress with O2 sat 89% with audible wheeze, heart rate 114, respiratory rate 22, patient received another dose of Solu Medrol, updraft treatment, magnesium and doxycycline in emergency room. At present patient continued to have chest pain with coughing shortness of breath and shortness of breath. Review of Systems Review of Systems: General headache no dizziness, subjective fever chills. CVS chest pain, no palpitation. Respiratory cough productive of clear phlegm Gastrointestinal no nausea no vomiting, no abdominal pain no urgency no frequency. All other system reviewed and are negative. [facility] Medical History COPD (chronic obstructive pulmonary disease) Acute pain of right shoulder Chronic low back pain without sciatica Hepatitis C Cocaine abuse Opioid dependence Finger lesion Chronic anemia Migraine Routine medical exam Lung mass Suicidal ideation Polysubstance abuse Chronic back pain BPH (benign prostatic hyperplasia) Nicotine dependence Cannabis use disorder, moderate, dependence Cocaine use disorder Pulmonary nodules Emphysema of lung Anxiety Depression Asthma Surgical History Hx of cholecystectomy Social History Household Members: Spouse Housing: Apartment Do you presently have visiting nurse or other home services: Yes Alcohol intake: former Patient Tobacco Use Status: Current someday Tobacco user Tobacco use type: Cigarette Cigarettes Per Day: 2 Years Smoked: many years Smoked in Last 30 Days: No e-Cigarette/Vaping Use: Never Used Second Hand Smoke Exposure: No Use of substances other than those prescribed or required for medical reasons: No Substance Use Type: Crack/Cocaine Advance Directives: Yes Advance Directives on File: Yes Advance Directives Date on File: 01/18/23 service: No Current occupational status: unemployed Current occupation: right hand dominant Sexual orientation: Straight/Heterosexual Meds Allergies Allergy/AdvReac Type Severity Reaction Status Date / Time ibuprofen Allergy Intermediate Stomach Verified 07/09/25 08:49 Upset penicillin V Allergy Intermediate rash Verified 07/09/25 08:49 Active Medications: Current Medications Acetaminophen (Acetaminophen 325 Mg Tablet) 650 mg PO Q6H PRN PRN Reason: Pain, Mild 1-3,fever,headache Al Hydroxide/Mg Hydroxide (Magnesium Hydrox/Alum Hydrox 30 Ml Oral.Susp) 30 ml PO Q4H PRN PRN Reason: Heartburn Albuterol/Ipratropium (Albuterol/Iprat 2.5/0.5mg 3 Ml Ampul.Neb) 3 ml INHALE Q4H PRN PRN Reason: Shortness of Breath/Wheezing Albuterol/Ipratropium (Albuterol/Iprat 2.5/0.5mg 3 Ml Ampul.Neb) 3 ml INHALE RQ4H WHILE AWAKE ADRIEN Calcium Carbonate (Calcium Carbonate 750 Mg Tab.Chew) 750 mg PO Q4H PRN PRN Reason: Heartburn Guaifenesin/Dextromethorphan (Guaifenesin Dm 200/20/10 Ml 10 Ml Syrup) 10 ml PO TID PENDING SALE TO [facility] Doxycycline Hyclate 100 mg/ (Sodium Chloride) 250 mls @ 166.67 mls/hr IV Q12H ADRIEN Magnesium Hydroxide (Milk Of Magnesia 30 Ml Oral.Susp) 30 ml PO DAILY PRN PRN Reason: Constipation Melatonin (Melatonin 3 Mg Tablet) 6 mg PO BEDTIME PRN PRN Reason: Insomnia Methylprednisolone Sodium Succinate (Methylprednisolone Sod Succ 40 Mg/Ml Vial) 40 mg IVPUSH Q12H ADRIEN Nicotine Polacrilex (Nicotine Polacrilex 2 Mg Gum) 2 mg BUCCAL Q2H PRN PRN Reason: Nicotine Cravings Ondansetron HCl (Ondansetron Hcl 4 Mg/2 Ml Vial) 4 mg IVPUSH Q8H PRN PRN Reason: Nausea and Vomiting Sodium Chloride (0.9 % Sodium Chloride Flush 3 Ml Syringe) 3 ml IVFLUSH QSHIFT PENDING SALE TO [facility] Home Medications ?Medication ?Instructions ?Recorded ?Confirmed ?Last Taken ?Type ferrous sulfate 325 mg (65 mg 325 mg PO BEDTIME 01/25/24 05/09/25 05/09/25 History iron) tablet,delayed release acetaminophen 500 mg tablet 500 mg PO Q6H PRN Pain 06/24/24 05/09/25 Unknown History mirtazapine 15 mg tablet 15 mg PO BEDTIME 06/24/24 05/09/25 05/08/25 History pantoprazole 40 mg tablet,delayed 40 mg PO DAILY@0630 06/24/24 05/09/25 05/09/25 History release sildenafil 100 mg tablet (Viagra) 100 mg PO DAILY PRN Erectile 06/24/24 05/09/25 Unknown History Dysfunction buprenorphine 4 mg-naloxone 1 mg 1 film sublingual DAILY@1200 11/21/24 05/09/25 05/09/25 History sublingual film (Suboxone) hydroxyzine HCl 25 mg tablet 25 mg PO BID 11/21/24 05/09/25 05/09/25 History risperidone 3 mg tablet 3 mg PO BEDTIME 11/21/24 05/09/25 05/08/25 History buprenorphine 8 mg-naloxone 2 mg 1 film sublingual BID 05/09/25 05/09/25 05/09/25 History sublingual film (Suboxone) clonazepam 0.5 mg tablet 0.5 mg PO TID 05/09/25 05/09/25 05/09/25 History furosemide 20 mg tablet 20 mg PO DAILY 05/09/25 05/09/25 05/09/25 History quetiapine 100 mg tablet 100 mg PO BID 05/09/25 05/09/25 05/09/25 History quetiapine 400 mg tablet 400 mg PO BEDTIME 05/09/25 05/09/25 05/08/25 History risperidone 1 mg tablet 1 mg PO DAILY 05/09/25 05/09/25 05/09/25 History venlafaxine 150 mg 150 mg PO DAILY 05/09/25 05/09/25 Unknown History capsule,extended release 24 hr venlafaxine 37.5 mg 37.5 mg PO DAILY 05/09/25 05/09/25 05/09/25 History capsule,extended release 24 hr atorvastatin 40 mg tablet 40 mg PO BEDTIME 07/09/25 Unknown History sennosides 8.6 mg-docusate sodium 2 tab PO BEDTIME 07/09/25 Unknown History 50 mg tablet (Stimulant Laxative Plus) Physical Exam Vital Signs and Narrative: Vital Signs: Last Vital Signs Temp 98.9 F 07/09/25 08:47 Pulse 114 H 07/09/25 11:37 Resp 18 07/09/25 11:37 BP 135/72 07/09/25 09:35 Pulse Ox 93 07/09/25 11:22 O2 Del Method Nasal Cannula 07/09/25 11:22 O2 Flow Rate 2 07/09/25 11:22 BMI result Body Mass Index 25.4 Const: Other: General awake alert receiving albuterol, tachycardic Neck no JVD. CVS regular rate rhythm, mild tachycardia Respiratory lungs bilateral expiratory wheeze Gastrointestinal abdomen soft, non tender, bowel sounds audible, no guarding , no rigidity. Extremities bilateral pitting edema. Neuro no nfocal Skin no rash Psych appropriate affect Results Labs 07/09/25 09:29 07/09/25 09:30 Labs: Laboratory Results - last 24 hr 07/09/25 07/09/25 07/09/25 09:02 09:29 09:30 MCV 87.5 MCH 28.8 MCHC 33.0 RDW 14.6 Plt Count 230 D MPV 8.7 L Immature Gran % (Auto) 0.5 H Neut % (Auto) 72.0 Lymph % (Auto) 17.9 L Pine % (Auto) 7.8 Eos % (Auto) 1.1 Baso % (Auto) 0.7 Lymph # (Auto) 1.0 L Pine # (Auto) 0.4 Eos # (Auto) 0.1 Baso # (Auto) 0.0 Abs Immat Gran (auto) 0.03 Absolute Neuts (auto) 4.0 Absolute Nucleated RBC 0.000 Nucleated RBC % (auto) 0.0 VBG pH VBG pCO2 VBG pO2 VBG HCO3 VBG O2 Saturation VBG Base Excess Anion Gap 14 Estim Creat Clear Calc 80.4 Estimated GFR > 60 Random Glucose 123 H Lactic Acid 1.4 Calcium 8.8 Total Bilirubin 0.2 Direct Bilirubin < 0.2 AST 26 ALT 10 Alkaline Phosphatase 78 Troponin I High Sens < 2.7 Total Protein 6.8 Albumin 4.0 Influenza Type A (PCR) NEGATIVE Influenza Type B (PCR) NEGATIVE RSV RNA Qual (PCR) NEGATIVE SARS-CoV-2 RNA (RT-PCR) NEGATIVE 07/09/25 10:48 MCV MCH MCHC RDW Plt Count MPV Immature Gran % (Auto) Neut % (Auto) Lymph % (Auto) Pine % (Auto) Eos % (Auto) Baso % (Auto) Lymph # (Auto) Pine # (Auto) Eos # (Auto) Baso # (Auto) Abs Immat Gran (auto) Absolute Neuts (auto) Absolute Nucleated RBC Nucleated RBC % (auto) VBG pH 7.30 L VBG pCO2 46 VBG pO2 65 VBG HCO3 23 VBG O2 Saturation 90.0 VBG Base Excess -2.8 Anion Gap Estim Creat Clear Calc Estimated GFR Random Glucose Lactic Acid Calcium Total Bilirubin Direct Bilirubin AST ALT Alkaline Phosphatase Troponin I High Sens Total Protein Albumin Influenza Type A (PCR) Influenza Type B (PCR) RSV RNA Qual (PCR) SARS-CoV-2 RNA (RT-PCR) Imaging Radiologist's Impressions: Impressions Chest X-Ray 07/09/25 09:37 IMPRESSION: No acute cardiopulmonary abnormality. Electronically signed by: Hemant Olsen MD 07/09/2025 09:53 AM [facility] [place] [place] Assessment and Plan (1) Acute exacerbation of chronic obstructive pulmonary disease: Status: Acute (2) Acute hypoxic respiratory failure: Status: Acute Plan 60-year-old gentleman history of tobacco use disorder, pulmonary nodules, moderate COPD, history of depression schizophrenia anxiety presented with acute onset of shortness of breath and diagnosed to have acute COPD exacerbation with acute hypoxic respiratory failure. Acute hypoxic respiratory failure due to acute COPD exacerbation RSV, COVID and influenza negative IV Solu-Medrol 40 mg b.i.d., DuoNeb q.4 hours scheduled and as needed Cough medication/analgesics Wean oxygen as tolerated not on home O2 Sepsis due to acute COPD exacerbation/bronchitis Tachypneic, tachycardic likely due to bronchitis/COPD Continue above management/IV doxycycline 100 mg b.i.d. Tobacco use disorder as per patient quit smoking [address] on nicotine gum, counseling done. Major depressive illness/psychosis resume home medications med reconciliation pending History of cocaine abuse patient noted to have drug toxicology positive for cocaine and buprenorphine on April 2025 patient denies recent use of cocaine will check urine toxicology. DVT prophylaxis with compression boots Full code In my clinical judgment patient requires 2 midnight inpatient hospitalization for management of acute hypoxic respiratory failure with COPD exacerbation/sepsis requiring IV Solu-Medrol updraft treatment. Patient home inhalers did not provide relief of symptoms, unable to provide above care in less acute setting. Quality Stroke Does the patient have a stroke diagnosis?: No VTE Prior VTE?: No VTE Risk Level:: Medical - moderate - high VTE Device Contraindication: N/A - Device Ordered VTE Drug Contraindication: Treatment Not Indicated
--- NOTE | 2025-07-09 13:46 | HO.NURTONUR ---
60 year old male presented via EMS for SOB with chest pain and headache, symptoms x1-2 days. SPO2 noted to be in mid 80s with EMS, pt received IV Solumedrol and Duoneb prior to hospitalization. Pt with continued wheezing and significant SOB on arrival. While in ED, pt required multiple respiratory treatments, IV Mag and additional dose of Solumedrol. Pt also received IV Tylenol and Doxy. Currently pt on 2L via NC with SPO2 in 92-94%. Mild scattered wheezes, much improvement. Pt appears more comfortable lying in bed. RR WNL. PIV to right wrist. UA/PICKETT pending. Dutch speaking only.
[2025-07-09 14:06] LABS: Appearance Urine Clear; Glucose Urine UA Negative (Negative); PH 5.0 (5.0-9.0); Specific Gravity - Urine 1.020 (1.005-1.025); UMIC TRIGGER UACC YES
[2025-07-09 14:17] LABS: Cannabinoid Screen Urine Not Detected (Not Detect)
--- NOTE | 2025-07-09 15:38 | PC.NURSE ---
Patient c/o chest pain and head pain on arrival from ER. Reached out to Provider Daisy via [employer] to inform her of patient's pain, waiting for order for pain medications.
[2025-07-09] MEDS: Albuterol/Iprat 2.5/0.5MG 3 ML AMPUL.NEB INHALE ×2 (15:40→20:14)
[2025-07-09] MEDS: 0.9 % Sodium Chloride Flush 3 ML SYRINGE IVFLUSH ×2 (15:51→20:57)
[2025-07-09] MEDS: guaiFENesin DM 200/20/10 ML 10 ML SYRUP PO ×2 (15:52→20:40)
--- NOTE | 2025-07-09 17:06 | PHA.MEDREC ---
Pharmacy Consult ? Medication Reconciliation Pharmacy has completed the medication reconciliation. Spoke to patients who confirmed all medications. [facility] [phone]
[2025-07-09] MEDS: Ferrous Sulfate 324 MG TABLET.DR PO (20:39)
[2025-07-10] VITALS (10 sets, daily range): BP systolic 115–124; BP diastolic 60–78; PULSE 77–100; RESP 14–18; TEMP 36.2–36.5; O2SAT 92–97
[2025-07-10] MEDS: Albuterol/Iprat 2.5/0.5MG 3 ML AMPUL.NEB INHALE ×6 (02:05→22:23)
[2025-07-10] MEDS: Tiotropium Bromide 2.5 mcg 1 PUFF/2.5 MCG MIST.INHAL 2 PUFF INHALE (07:58)
--- NOTE | 2025-07-10 08:06 | P.PNIM_ITS ---
Subjective Subjective Date of Service: 07/10/25 Interval History: Patient reports his shortness of breath improved We will continue IV steroids Addiction Medicine consulted Review of Systems Review of Systems: Yes all other systems are reviewed and are negative Physical Exam 2 Vital Signs: Vital Signs: Last Vital Signs Temp 97.7 F 07/10/25 07:54 Pulse 77 07/10/25 07:58 Resp 16 07/10/25 07:58 BP 121/71 07/10/25 07:54 Pulse Ox 97 07/10/25 07:54 O2 Del Method Room Air 07/10/25 07:54 O2 Flow Rate 3 07/10/25 03:18 BMI result Body Mass Index 28.3 Appearance: Alert.? Oriented X3.? not in distress.? cvs: [id number], [id number] , no murmur res: Mild bilateral wheezing noted, improved from yesterday abd: no rebound or guarding ,nt, bs present. ext pulses present , no cyanosis . neuro: axo3 , nonfocal. Objective Data Active Medications Acetaminophen (Acetaminophen 325 Mg Tablet) 975 mg PO Q6H [facility] Last Admin: 07/10/25 05:31 Dose: 975 mg Documented By: JAY Al Hydroxide/Mg Hydroxide (Magnesium Hydrox/Alum Hydrox 30 Ml Oral.Susp) 30 ml PO Q4H PRN PRN Reason: Heartburn Albuterol Sulfate (Albuterol Sulfate 90 Mcg 8 Gm Inhaler) 2 puff INHALE Q4H PRN PRN Reason: Wheezing Albuterol/Ipratropium (Albuterol/Iprat 2.5/0.5mg 3 Ml Ampul.Neb) 3 ml INHALE Q4H PRN PRN Reason: Shortness of Breath/Wheezing Last Admin: 07/10/25 02:05 Dose: 3 ml Documented By: KATHERINE Albuterol/Ipratropium (Albuterol/Iprat 2.5/0.5mg 3 Ml Ampul.Neb) 3 ml INHALE RQ4H WHILE AWAKE [facility] Last Admin: 07/10/25 07:58 Dose: 3 ml Documented By: CHRIS Atorvastatin Calcium (Atorvastatin Calcium 40 Mg Tablet) 40 mg PO BEDTIME [facility] Last Admin: 07/09/25 20:39 Dose: 40 mg Documented By: JAY Buprenorphine/Naloxone (Buprenorphine/Naloxone 4/1 Mg Film) 1 film SUBLINGUAL DAILY@1200 [facility] Buprenorphine/Naloxone (Buprenorphine/Naloxone 8/2 Mg Film) 1 film SUBLINGUAL BID [facility] Last Admin: 07/09/25 20:40 Dose: 1 film Documented By: JAY Calcium Carbonate (Calcium Carbonate 750 Mg Tab.Chew) 750 mg PO Q4H PRN PRN Reason: Heartburn Clonazepam (Clonazepam 0.5 Mg Tablet) 0.5 mg PO TID [facility] Last Admin: 07/09/25 20:39 Dose: 0.5 mg Documented By: JAY Ferrous Sulfate (Ferrous Sulfate 324 Mg Tablet.Dr) 324 mg PO BEDTIME [facility] Last Admin: 07/09/25 20:39 Dose: 324 mg Documented By: JAY Furosemide (Furosemide 20 Mg Tablet) 20 mg PO DAILY [facility]; Protocol Guaifenesin/Dextromethorphan (Guaifenesin Dm 200/20/10 Ml 10 Ml Syrup) 10 ml PO TID [facility] Last Admin: 07/09/25 20:40 Dose: 10 ml Documented By: JAY Hydroxyzine HCl (Hydroxyzine Hcl 25 Mg Tablet) 25 mg PO BID [facility] Last Admin: 07/09/25 20:39 Dose: 25 mg Documented By: JAY Doxycycline Hyclate 100 mg/ (Sodium Chloride) 250 mls @ 166.67 mls/hr IV Q12H [facility] Last Infusion: 07/09/25 22:24 Dose: Infused Documented By: JAY Lidocaine (Lidocaine 4 % Patch Adh..Patch) 2 patch TRANSDERMA DAILY [facility]; Protocol Magnesium Hydroxide (Milk Of Magnesia 30 Ml Oral.Susp) 30 ml PO DAILY PRN PRN Reason: Constipation Melatonin (Melatonin 3 Mg Tablet) 6 mg PO BEDTIME PRN PRN Reason: Insomnia Methylprednisolone Sodium Succinate (Methylprednisolone Sod Succ 40 Mg/Ml Vial) 40 mg IVPUSH Q12H [facility] Last Admin: 07/09/25 20:40 Dose: 40 mg Documented By: JAY Mirtazapine (Mirtazapine 15 Mg Tablet) 15 mg PO BEDTIME [facility] Last Admin: 07/09/25 20:40 Dose: 15 mg Documented By: JAY Nicotine Polacrilex (Nicotine Polacrilex 2 Mg Gum) 2 mg BUCCAL Q2H PRN PRN Reason: Nicotine Cravings Omeprazole (Omeprazole 20 Mg Capsule.Dr) 20 mg PO DAILY@0630 [facility] Last Admin: 07/10/25 05:31 Dose: 20 mg Documented By: JAY Ondansetron HCl (Ondansetron Hcl 4 Mg/2 Ml Vial) 4 mg IVPUSH Q8H PRN PRN Reason: Nausea and Vomiting Quetiapine Fumarate (Quetiapine Fumarate 100 Mg Tablet) 100 mg PO BID@0900,1700 [facility] Quetiapine Fumarate (Quetiapine Fumarate 400 Mg Tablet) 400 mg PO BEDTIME [facility] Last Admin: 07/09/25 20:39 Dose: 400 mg Documented By: JAY Risperidone (Risperidone 1 Mg Tablet) 1 mg PO DAILY [facility] Risperidone (Risperidone 3 Mg Tablet) 3 mg PO BEDTIME [facility] Last Admin: 07/09/25 20:39 Dose: 3 mg Documented By: JAY Senna/Docusate Sodium (Sennosides/Docusate Sodium Tablet) 2 tab PO BEDTIME [facility] Last Admin: 07/09/25 20:39 Dose: 2 tab Documented By: JAY Sodium Chloride (0.9 % Sodium Chloride Flush 3 Ml Syringe) 3 ml IVFLUSH QSHIFT [facility] Last Admin: 07/09/25 20:57 Dose: 3 ml Documented By: JAY Tiotropium Wilber (Tiotropium Wilber 2.5 Mcg 1 Puff/2.5 Mcg Mist.Inhal) 2 puff INHALE RDAILY [facility] Last Admin: 07/10/25 07:58 Dose: 2 puff Documented By: CHRIS Venlafaxine HCl (Venlafaxine Hcl Er 37.5 Mg Cap.Er.24h) 37.5 mg PO DAILY [facility] Venlafaxine HCl (Venlafaxine Hcl Er 150 Mg Cap.Er.24h) 150 mg PO DAILY [facility] Zolpidem Tartrate (Zolpidem Tartrate 5 Mg Tablet) 5 mg PO BEDTIME [facility] Last Admin: 07/09/25 20:39 Dose: 5 mg Documented By: JAY Labs 07/09/25 09:29 07/09/25 09:30 Labs: Laboratory Results - last 24 hr 07/09/25 07/09/25 07/09/25 09:02 09:29 09:30 MCV 87.5 MCH 28.8 MCHC 33.0 RDW 14.6 Plt Count 230 D MPV 8.7 L Immature Gran % (Auto) 0.5 H Neut % (Auto) 72.0 Lymph % (Auto) 17.9 L [place] % (Auto) 7.8 Eos % (Auto) 1.1 Baso % (Auto) 0.7 Lymph # (Auto) 1.0 L [place] # (Auto) 0.4 Eos # (Auto) 0.1 Baso # (Auto) 0.0 Abs Immat Gran (auto) 0.03 Absolute Neuts (auto) 4.0 Absolute Nucleated RBC 0.000 Nucleated RBC % (auto) 0.0 VBG pH VBG pCO2 VBG pO2 VBG HCO3 VBG O2 Saturation VBG Base Excess Anion Gap 14 Estim Creat Clear Calc 80.4 Estimated GFR > 60 Random Glucose 123 H Lactic Acid 1.4 Calcium 8.8 Total Bilirubin 0.2 Direct Bilirubin < 0.2 AST 26 ALT 10 Alkaline Phosphatase 78 Troponin I High Sens < 2.7 Total Protein 6.8 Albumin 4.0 Urine Color Urine Appearance Urine pH Ur Specific [place] Urine Protein Urine Glucose (UA) Urine Ketones Urine Blood Urine Nitrite Ur Leukocyte Esterase Urine RBC Urine WBC Ur Squamous Epith Cells Urine Bacteria Hyaline Casts Urine Opiates Screen Ur Buprenorphine Scrn Ur Oxycodone Screen Urine Methadone Screen Urine Fentanyl Screen Ur Barbiturates Screen Ur Phencyclidine Scrn Ur Amphetamines Screen U Benzodiazepines Scrn Urine Cocaine Screen U Marijuana (THC) Screen Influenza Type A (PCR) NEGATIVE Influenza Type B (PCR) NEGATIVE RSV RNA Qual (PCR) NEGATIVE SARS-CoV-2 RNA (RT-PCR) NEGATIVE 07/09/25 07/09/25 10:48 13:58 MCV MCH MCHC RDW Plt Count MPV Immature Gran % (Auto) Neut % (Auto) Lymph % (Auto) [place] % (Auto) Eos % (Auto) Baso % (Auto) Lymph # (Auto) [place] # (Auto) Eos # (Auto) Baso # (Auto) Abs Immat Gran (auto) Absolute Neuts (auto) Absolute Nucleated RBC Nucleated RBC % (auto) VBG pH 7.30 L VBG pCO2 46 VBG pO2 65 VBG HCO3 23 VBG O2 Saturation 90.0 VBG Base Excess -2.8 Anion Gap Estim Creat Clear Calc Estimated GFR Random Glucose Lactic Acid Calcium Total Bilirubin Direct Bilirubin AST ALT Alkaline Phosphatase Troponin I High Sens Total Protein Albumin Urine Color Yellow Urine Appearance Clear Urine pH 5.0 Ur Specific [place] 1.020 Urine Protein Trace Urine Glucose (UA) Negative Urine Ketones Trace Urine Blood Small (1+) H Urine Nitrite Negative Ur Leukocyte Esterase Negative Urine RBC 0-2 Urine WBC 0-5 Ur Squamous Epith Cells 0-2 Urine Bacteria None Seen Hyaline Casts 3-5 Urine Opiates Screen Not Detected Ur Buprenorphine Scrn Positive H Ur Oxycodone Screen Not Detected Urine Methadone Screen Not Detected Urine Fentanyl Screen Not Detected Ur Barbiturates Screen Not Detected Ur Phencyclidine Scrn Not Detected Ur Amphetamines Screen Not Detected U Benzodiazepines Scrn Not Detected Urine Cocaine Screen POSITIVE H U Marijuana (THC) Screen Not Detected Influenza Type A (PCR) Influenza Type B (PCR) RSV RNA Qual (PCR) SARS-CoV-2 RNA (RT-PCR) Assessment and Plan (1) Acute exacerbation of chronic obstructive pulmonary disease: Status: Acute (2) COPD (chronic obstructive pulmonary disease): Status: Inactive Plan 60-year-old gentleman history of tobacco use disorder, pulmonary nodules, moderate COPD, history of depression schizophrenia anxiety presented with acute onset of shortness of breath and diagnosed to have acute COPD exacerbation with acute hypoxic respiratory failure. Acute hypoxic respiratory failure due to acute COPD exacerbation likely in the setting of current nicotine usage RSV, COVID and influenza negative One more day of IV Solu-Medrol 40 mg b.i.d., then we will switch to p.o. prednisone based on clinical status DuoNeb q.4 hours scheduled and as needed Cough medication/analgesics Wean oxygen as tolerated not on home O2 Sepsis due to acute COPD exacerbation/bronchitis Tachypneic, tachycardic likely due to bronchitis/COPD Continue above management/IV doxycycline 100 mg b.i.d. Tobacco use disorder as per patient quit smoking [address] on nicotine gum, counseling done. Nicotine replacement therapy ordered Major depressive illness/psychosis, history of auditory hallucinations- resume home medications -remeorn to 45mg, adjust risperdal to all bedtime and daily dose increase to 5mg. Maintain seroquel, suboxone, effexor, trazodone, ambien and klonopin S UD-cocaine and buprenorphine positive on tox screen. Addiction Medicine consulted Resumed home dose buprenorphine . DVT prophylaxis with Lovenox Full code In my clinical judgment patient requires inpatient hospitalization for management of acute hypoxic respiratory failure with COPD exacerbation/sepsis requiring IV Solu-Medrol updraft treatment. Patient home inhalers did not provide relief of symptoms, unable to provide above care in less acute setting. Quality Stroke Does the patient have a stroke diagnosis?: No VTE Prior VTE?: No VTE Risk Level:: Medical - moderate - high VTE Device Contraindication: N/A - Device Ordered VTE Drug Contraindication: Treatment Not Indicated
[2025-07-10] MEDS: 0.9 % Sodium Chloride Flush 3 ML SYRINGE IVFLUSH ×2 (08:32→15:40)
[2025-07-10] MEDS: Venlafaxine HCl ER 37.5 MG CAP.ER.24H PO (08:33)
[2025-07-10] MEDS: Venlafaxine HCl ER 150 MG CAP.ER.24H PO (08:33)
[2025-07-10] MEDS: guaiFENesin DM 200/20/10 ML 10 ML SYRUP PO ×3 (08:35→22:09)
[2025-07-10] MEDS: Lidocaine 4 % Patch ADH..PATCH 2 PATCH TRANSDERMA (08:42)
--- NOTE | 2025-07-10 10:26 | MHC.CM.PN ---
CM MET WITH PT VIA ILLUSTRATOR SET. PT LIVES WITH AND IS FUNCTIONALLY INDEPENDENT. PT STATES HE HAS A IMPORTER OR EXPORTER BUT UNSURE OF AGENCY OR HOURS. PT USES A NEBULIZER AT HOME. + HCP ON FILE. PCP DR. HAYS AT [facility]. DP: HOME WITH RESUMPTION OF IMPORTER OR EXPORTER SERVICES IS THE GOAL. PT WILL NEED ASSIST WITH [facility]. CM WILL CONTINUE TO FOLLOW FOR ANY CHANGE TO DC PLAN/NEEDS.
[2025-07-10] MEDS: Buprenorphine/Naloxone 4/1 mg FILM 1 FILM SUBLINGUAL (11:59)
--- NOTE | 2025-07-10 15:11 | MHC.RECOVRN ---
Pt is a 60y/o Montenegrin speaking male with OUD on Suboxone, COPD, asthma, depression, and anxiety. Met with pt in 362-1 following an addiction consult for cocaine use. 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 Pt is AOx2 with poor insight into situation and does not know the date. Pt reports situational depression and anxiety r/t pain and has a hx of SI but currently denies. Pt is focused on pain management and stated he wants something stronger than Tylenol for 10/10 pain. Primary RN was made aware of pt's requests. Briefly discussed cocaine use and pt states he uses $20 worth every other day or every day. He also has a hx of OUD and is on Suboxone - obtains it from [facility]. He is satisfied with his Suboxone dose which he takes daily @ 9:00, 12:00, and 21:00. He declines referral to addiction medicine provider, and declines outpatient tx appointment. He plans on continuing with Suboxone through the [facility]. He denies questions or concerns at this time.
[2025-07-10] MEDS: Ferrous Sulfate 324 MG TABLET.DR PO (22:11)
[2025-07-11] VITALS (7 sets, daily range): BP systolic 114–131; BP diastolic 73–84; PULSE 87–101; RESP 15–20; TEMP 36.5–37.1; O2SAT 93–97
[2025-07-11] MEDS: Albuterol/Iprat 2.5/0.5MG 3 ML AMPUL.NEB INHALE ×4 (07:33→20:51)
[2025-07-11] MEDS: Tiotropium Bromide 2.5 mcg 1 PUFF/2.5 MCG MIST.INHAL 2 PUFF INHALE (07:33)
--- NOTE | 2025-07-11 07:34 | HO.PM.IMPN ---
Subjective Subjective Date of Service: 07/11/25 Interval History: pt later in the afternoon while working with PT expressed SI , CP, SOB ACS workup initiated 1-1 sitter initiated Review of Systems Review of Systems: Yes all other systems are reviewed and are negative Physical Exam Exam: Exam: Psych: SI active, feels anxious Vital Signs: Vital Signs: Last Vital Signs Temp 97.7 F 07/11/25 04:00 Pulse 87 07/11/25 07:33 Resp 16 07/11/25 07:33 BP 125/81 07/11/25 04:00 Pulse Ox 96 07/11/25 04:00 O2 Del Method Nasal Cannula 07/11/25 04:00 O2 Flow Rate 2 07/11/25 04:00 BMI result Body Mass Index 28.3 Appearance: Alert.? Oriented X3 cvs: [id number], [id number] , no murmur res: Mild bilateral wheezing noted, improved from yesterday abd: no rebound or guarding ,nt, bs present. neuro: axo3 , nonfocal. Objective Data Active Medications Acetaminophen (Acetaminophen 325 Mg Tablet) 975 mg PO Q6H [facility] Last Admin: 07/11/25 05:54 Dose: Not Given Documented By: KAREN Non-Admin Reason: Patient Refused Al Hydroxide/Mg Hydroxide (Magnesium Hydrox/Alum Hydrox 30 Ml Oral.Susp) 30 ml PO Q4H PRN PRN Reason: Heartburn Albuterol Sulfate (Albuterol Sulfate 90 Mcg 8 Gm Inhaler) 2 puff INHALE Q4H PRN PRN Reason: Wheezing Albuterol/Ipratropium (Albuterol/Iprat 2.5/0.5mg 3 Ml Ampul.Neb) 3 ml INHALE Q4H PRN PRN Reason: Shortness of Breath/Wheezing Last Admin: 07/10/25 22:23 Dose: 3 ml Documented By: KAYY Albuterol/Ipratropium (Albuterol/Iprat 2.5/0.5mg 3 Ml Ampul.Neb) 3 ml INHALE RQ4H WHILE AWAKE [facility] Last Admin: 07/11/25 07:33 Dose: 3 ml Documented By: CHRIS Atorvastatin Calcium (Atorvastatin Calcium 40 Mg Tablet) 40 mg PO BEDTIME [facility] Last Admin: 07/10/25 22:11 Dose: 40 mg Documented By: KAREN Buprenorphine/Naloxone (Buprenorphine/Naloxone 4/1 Mg Film) 1 film SUBLINGUAL DAILY@1200 [facility] Last Admin: 07/10/25 11:59 Dose: 1 film Documented By: RENETTA Buprenorphine/Naloxone (Buprenorphine/Naloxone 8/2 Mg Film) 1 film SUBLINGUAL BID [facility] Last Admin: 07/10/25 22:15 Dose: 1 film Documented By: KAREN Comments: Medication was given after [facility] time due to managing multiple urgent needs for several patients on my assignment. Calcium Carbonate (Calcium Carbonate 750 Mg Tab.Chew) 750 mg PO Q4H PRN PRN Reason: Heartburn Clonazepam (Clonazepam 0.5 Mg Tablet) 0.5 mg PO TID [facility] Last Admin: 07/10/25 22:12 Dose: 0.5 mg Documented By: KAREN Doxycycline Monohydrate (Doxycycline Monohydrate 100 Mg Capsule) 100 mg PO Q12H [facility] Stop: 07/13/25 20:59 Last Admin: 07/10/25 22:12 Dose: 100 mg Documented By: KAREN Enoxaparin Sodium (Enoxaparin Sodium 40 Mg/0.4 Ml Syringe) 40 mg SUBCUT Q24H [facility] Last Admin: 07/10/25 12:00 Dose: 40 mg Documented By: RENETTA Ferrous Sulfate (Ferrous Sulfate 324 Mg Tablet.Dr) 324 mg PO BEDTIME [facility] Last Admin: 07/10/25 22:11 Dose: 324 mg Documented By: KAREN Furosemide (Furosemide 20 Mg Tablet) 20 mg PO DAILY [facility]; Protocol Last Admin: 07/10/25 08:42 Dose: 20 mg Documented By: RENETTA Guaifenesin/Dextromethorphan (Guaifenesin Dm 200/20/10 Ml 10 Ml Syrup) 10 ml PO TID [facility] Last Admin: 07/10/25 22:09 Dose: 10 ml Documented By: KAREN Hydroxyzine HCl (Hydroxyzine Hcl 25 Mg Tablet) 25 mg PO BID [facility] Last Admin: 07/10/25 22:11 Dose: 25 mg Documented By: KAREN Lidocaine (Lidocaine 4 % Patch Adh..Patch) 2 patch TRANSDERMA DAILY [facility]; Protocol Last Admin: 07/10/25 08:42 Dose: 2 patch Documented By: RENETTA Magnesium Hydroxide (Milk Of Magnesia 30 Ml Oral.Susp) 30 ml PO DAILY PRN PRN Reason: Constipation Melatonin (Melatonin 3 Mg Tablet) 6 mg PO BEDTIME PRN PRN Reason: Insomnia Mirtazapine (Mirtazapine 15 Mg Tablet) 15 mg PO BEDTIME [facility] Last Admin: 07/10/25 22:11 Dose: 15 mg Documented By: KAREN Nicotine Polacrilex (Nicotine Polacrilex 2 Mg Gum) 2 mg BUCCAL Q2H PRN PRN Reason: Nicotine Cravings Omeprazole (Omeprazole 20 Mg Capsule.Dr) 20 mg PO DAILY@0630 [facility] Last Admin: 07/11/25 05:52 Dose: 20 mg Documented By: KAREN Ondansetron HCl (Ondansetron Hcl 4 Mg/2 Ml Vial) 4 mg IVPUSH Q8H PRN PRN Reason: Nausea and Vomiting Prednisone (Prednisone 20 Mg Tablet) 40 mg PO DAILY [facility] Stop: 07/15/25 08:59 Quetiapine Fumarate (Quetiapine Fumarate 100 Mg Tablet) 100 mg PO BID@0900,1700 [facility] Last Admin: 07/10/25 17:14 Dose: 100 mg Documented By: RENETTA Quetiapine Fumarate (Quetiapine Fumarate 400 Mg Tablet) 400 mg PO BEDTIME [facility] Last Admin: 07/10/25 22:10 Dose: 400 mg Documented By: KAREN Risperidone (Risperidone 1 Mg Tablet) 1 mg PO DAILY [facility] Last Admin: 07/10/25 08:33 Dose: 1 mg Documented By: RENETTA Risperidone (Risperidone 3 Mg Tablet) 3 mg PO BEDTIME [facility] Last Admin: 07/10/25 22:11 Dose: 3 mg Documented By: KAREN Senna/Docusate Sodium (Sennosides/Docusate Sodium Tablet) 2 tab PO BEDTIME [facility] Last Admin: 07/10/25 22:11 Dose: 2 tab Documented By: KAREN Sodium Chloride (0.9 % Sodium Chloride Flush 3 Ml Syringe) 3 ml IVFLUSH QSHIFT [facility] Last Admin: 07/11/25 00:09 Dose: Not Given Documented By: KAREN Non-Admin Reason: Previously Administered Tiotropium Spiro (Tiotropium Spiro 2.5 Mcg 1 Puff/2.5 Mcg Mist.Inhal) 2 puff INHALE RDAILY [facility] Last Admin: 07/11/25 07:33 Dose: 2 puff Documented By: CHRIS Venlafaxine HCl (Venlafaxine Hcl Er 37.5 Mg Cap.Er.24h) 37.5 mg PO DAILY [facility] Last Admin: 07/10/25 08:33 Dose: 37.5 mg Documented By: RENETTA Venlafaxine HCl (Venlafaxine Hcl Er 150 Mg Cap.Er.24h) 150 mg PO DAILY [facility] Last Admin: 07/10/25 08:33 Dose: 150 mg Documented By: RENETTA Zolpidem Tartrate (Zolpidem Tartrate 5 Mg Tablet) 5 mg PO BEDTIME [facility] Last Admin: 07/10/25 22:12 Dose: 5 mg Documented By: KAREN Labs 07/09/25 09:29 07/09/25 09:30 Microbiology Microbiology Results: Microbiology 07/09/25 09:30 Blood Culture - Preliminary Blood - Venous No growth after 24 hours. 07/09/25 09:30 Blood Culture - Preliminary Blood - Venous No growth after 24 hours. Assessment and Plan (1) Acute exacerbation of chronic obstructive pulmonary disease: Status: Acute (2) COPD (chronic obstructive pulmonary disease): Status: Inactive Plan 60-year-old gentleman history of tobacco use disorder, pulmonary nodules, moderate COPD, history of depression schizophrenia anxiety presented with acute onset of shortness of breath and diagnosed to have acute COPD exacerbation with acute hypoxic respiratory failure. Active SI 1-1 sitter SI precautions Acute hypoxic respiratory failure due to acute COPD exacerbation likely in the setting of current nicotine usage RSV, COVID and influenza negative p.o. prednisone based on clinical status DuoNeb q.4 hours scheduled and as needed Cough medication/analgesics Wean oxygen as tolerated not on home O2 Sepsis due to acute COPD exacerbation/bronchitis Tachypneic, tachycardic likely due to bronchitis/COPD Continue above management/IV doxycycline 100 mg b.i.d. Tobacco use disorder as per patient quit smoking [address] on nicotine gum, counseling done. Nicotine replacement therapy ordered Major depressive illness/psychosis, history of auditory hallucinations- resume home medications -remeorn to 45mg, adjust risperdal to all bedtime and daily dose increase to 5mg. Maintain seroquel, suboxone, effexor, trazodone, ambien and klonopin CARE team eval once medically stabilized RON-cocaine and buprenorphine positive on tox screen. Addiction Medicine consulted Resumed home dose buprenorphine . DVT prophylaxis with Lovenox Full code In my clinical judgment patient requires inpatient hospitalization for management of acute on chronic SI and workup of stated ACS Care team eval can happen on monday (weekend limited resources) This note is constructed using voice recognition software. While every effort has been made to ensure accuracy, agricultural extension specialist errors may have been included. Quality Stroke Does the patient have a stroke diagnosis?: No VTE Prior VTE?: No VTE Risk Level:: Medical - moderate - high VTE Device Contraindication: N/A - Device Ordered VTE Drug Contraindication: Treatment Not Indicated
[2025-07-11] MEDS: Venlafaxine HCl ER 37.5 MG CAP.ER.24H PO (08:55)
[2025-07-11] MEDS: Venlafaxine HCl ER 150 MG CAP.ER.24H PO (08:55)
[2025-07-11] MEDS: guaiFENesin DM 200/20/10 ML 10 ML SYRUP PO ×3 (08:55→20:40)
[2025-07-11] MEDS: Lidocaine 4 % Patch ADH..PATCH 2 PATCH TRANSDERMA (08:58)
[2025-07-11] MEDS: 0.9 % Sodium Chloride Flush 3 ML SYRINGE IVFLUSH ×3 (08:58→20:40)
[2025-07-11] MEDS: Buprenorphine/Naloxone 4/1 mg FILM 1 FILM SUBLINGUAL (11:55)
--- NOTE | 2025-07-11 14:59 | MHC.CM.PN ---
per rounds pt will not be dcd today dc plan pending pt eval
--- NOTE | 2025-07-11 15:48 | ECG_ITS ---
Test Reason : chest pain Blood Pressure : */* mmHG Vent. Rate : 101 BPM Atrial Rate : 101 BPM P-R Int : 146 ms QRS Dur : 96 ms QT Int : 326 ms P-R-T Axes : 80 -3 75 degrees QTcB Int : 422 ms Sinus tachycardia Incomplete right bundle branch block Septal infarct , age undetermined Abnormal ECG When compared with ECG of 09-Jul-2025 09:11, QRS axis Shifted right Septal infarct is now Present Nonspecific T wave abnormality, worse in Anterior leads T wave inversion no longer evident in Lateral leads Referred By: Ting Villa Electronically Signed By: AKASH SUAREZ MD
[2025-07-11] MEDS: Magnesium Sulfate/H2O 2 GM/50 ML PIGGYBACK IV (16:19)
[2025-07-11 17:01] LABS: Troponin-I High Sensitivity < 2.7 ng/L (<3.5-35.0)
[2025-07-11] MEDS: Ferrous Sulfate 324 MG TABLET.DR PO (20:40)
[2025-07-12] VITALS (8 sets, daily range): BP systolic 135–146; BP diastolic 72–96; PULSE 81–106; RESP 16–19; TEMP 36.2–36.9; O2SAT 93–95
[2025-07-12] MEDS: Albuterol/Iprat 2.5/0.5MG 3 ML AMPUL.NEB INHALE ×5 (06:11→19:47)
--- NOTE | 2025-07-12 07:31 | HO.PM.IMPN ---
Subjective Subjective Date of Service: 07/12/25 Interval History: continues to endorse SI 1-[address] Review of Systems Review of Systems: Yes all other systems are reviewed and are negative Physical Exam Exam: Exam: Psych: SI active, feels anxious Vital Signs: Vital Signs: Last Vital Signs Temp 98.1 F 07/12/25 04:00 Pulse 85 07/12/25 04:00 Resp 18 07/12/25 04:00 BP 135/72 07/12/25 04:00 Pulse Ox 94 07/12/25 04:00 O2 Del Method Nasal Cannula 07/12/25 04:00 O2 Flow Rate 2 07/12/25 04:00 BMI result Body Mass Index 28.3 Appearance: Alert.? Oriented X3 cvs: rrr, [id number] , no murmur res: Mild bilateral wheezing noted, improved from yesterday abd: no rebound or guarding ,nt, bs present. neuro: axo3 , nonfocal. Objective Data Active Medications Acetaminophen (Acetaminophen 325 Mg Tablet) 975 mg PO Q6H [facility] Last Admin: 07/12/25 06:05 Dose: Not Given Documented By: ANGELICA Non-Admin Reason: Patient Refused Al Hydroxide/Mg Hydroxide (Magnesium Hydrox/Alum Hydrox 30 Ml Oral.Susp) 30 ml PO Q4H PRN PRN Reason: Heartburn Albuterol Sulfate (Albuterol Sulfate 90 Mcg 8 Gm Inhaler) 2 puff INHALE Q4H PRN PRN Reason: Wheezing Albuterol/Ipratropium (Albuterol/Iprat 2.5/0.5mg 3 Ml Ampul.Neb) 3 ml INHALE Q4H PRN PRN Reason: Shortness of Breath/Wheezing Last Admin: 07/12/25 06:11 Dose: 3 ml Documented By: ANGELICA Albuterol/Ipratropium (Albuterol/Iprat 2.5/0.5mg 3 Ml Ampul.Neb) 3 ml INHALE RQ4H WHILE AWAKE [facility] Last Admin: 07/11/25 20:51 Dose: 3 ml Documented By: ELIZABETH Atorvastatin Calcium (Atorvastatin Calcium 40 Mg Tablet) 40 mg PO BEDTIME [facility] Last Admin: 07/11/25 20:42 Dose: 40 mg Documented By: ANGELICA Buprenorphine/Naloxone (Buprenorphine/Naloxone 4/1 Mg Film) 1 film SUBLINGUAL DAILY@1200 [facility] Last Admin: 07/11/25 11:55 Dose: 1 film Documented By: RENETTA Buprenorphine/Naloxone (Buprenorphine/Naloxone 8/2 Mg Film) 1 film SUBLINGUAL BID [facility] Last Admin: 07/11/25 20:40 Dose: 1 film Documented By: ANGELICA Calcium Carbonate (Calcium Carbonate 750 Mg Tab.Chew) 750 mg PO Q4H PRN PRN Reason: Heartburn Clonazepam (Clonazepam 0.5 Mg Tablet) 0.5 mg PO TID [facility] Last Admin: 07/11/25 20:40 Dose: 0.5 mg Documented By: ANGELICA Doxycycline Monohydrate (Doxycycline Monohydrate 100 Mg Capsule) 100 mg PO Q12H [facility] Stop: 07/13/25 20:59 Last Admin: 07/11/25 20:42 Dose: 100 mg Documented By: ANGELICA Enoxaparin Sodium (Enoxaparin Sodium 40 Mg/0.4 Ml Syringe) 40 mg SUBCUT Q24H [facility] Last Admin: 07/11/25 11:25 Dose: 40 mg Documented By: RENETTA Ferrous Sulfate (Ferrous Sulfate 324 Mg Tablet.Dr) 324 mg PO BEDTIME [facility] Last Admin: 07/11/25 20:40 Dose: 324 mg Documented By: ANGELICA Furosemide (Furosemide 20 Mg Tablet) 20 mg PO DAILY [facility]; Protocol Last Admin: 07/11/25 08:55 Dose: 20 mg Documented By: RENETTA Guaifenesin/Dextromethorphan (Guaifenesin Dm 200/20/10 Ml 10 Ml Syrup) 10 ml PO TID [facility] Last Admin: 07/11/25 20:40 Dose: 10 ml Documented By: ANGELICA Hydroxyzine HCl (Hydroxyzine Hcl 50 Mg Tablet) 50 mg PO TID [facility] Last Admin: 07/11/25 20:42 Dose: 50 mg Documented By: ANGELICA Ketorolac Tromethamine (Ketorolac Tromethamine 10 Mg Tablet) 10 mg PO Q6H PRN PRN Reason: Pain, Severe (Pain Scale 7-10) Stop: 07/16/25 15:56 Last Admin: 07/12/25 06:07 Dose: 10 mg Documented By: ANGELICA Lidocaine (Lidocaine 4 % Patch Adh..Patch) 2 patch TRANSDERMA DAILY [facility]; Protocol Last Admin: 07/11/25 08:58 Dose: 2 patch Documented By: RENETTA Magnesium Hydroxide (Milk Of Magnesia 30 Ml Oral.Susp) 30 ml PO DAILY PRN PRN Reason: Constipation Melatonin (Melatonin 3 Mg Tablet) 6 mg PO BEDTIME PRN PRN Reason: Insomnia Mirtazapine (Mirtazapine 15 Mg Tablet) 15 mg PO BEDTIME [facility] Last Admin: 07/11/25 20:41 Dose: 15 mg Documented By: ANGELICA Nicotine Polacrilex (Nicotine Polacrilex 2 Mg Gum) 2 mg BUCCAL Q2H PRN PRN Reason: Nicotine Cravings Omeprazole (Omeprazole 20 Mg Capsule.Dr) 20 mg PO DAILY@0630 [facility] Last Admin: 07/12/25 06:07 Dose: 20 mg Documented By: ANGELICA Ondansetron HCl (Ondansetron Hcl 4 Mg/2 Ml Vial) 4 mg IVPUSH Q8H PRN PRN Reason: Nausea and Vomiting Prednisone (Prednisone 20 Mg Tablet) 40 mg PO DAILY [facility] Stop: 07/15/25 08:59 Last Admin: 07/11/25 08:55 Dose: 40 mg Documented By: RENETTA Quetiapine Fumarate (Quetiapine Fumarate 100 Mg Tablet) 100 mg PO BID@0900,1700 [facility] Last Admin: 07/11/25 17:15 Dose: 100 mg Documented By: RENETTA Quetiapine Fumarate (Quetiapine Fumarate 400 Mg Tablet) 400 mg PO BEDTIME [facility] Last Admin: 07/11/25 20:40 Dose: 400 mg Documented By: ANGELICA Risperidone (Risperidone 1 Mg Tablet) 1 mg PO DAILY [facility] Last Admin: 07/11/25 08:55 Dose: 1 mg Documented By: RENETTA Risperidone (Risperidone 3 Mg Tablet) 3 mg PO BEDTIME [facility] Last Admin: 07/11/25 20:42 Dose: 3 mg Documented By: ANGELICA Senna/Docusate Sodium (Sennosides/Docusate Sodium Tablet) 2 tab PO BEDTIME [facility] Last Admin: 07/11/25 20:41 Dose: Not Given Documented By: ANGELICA Non-Admin Reason: Patient Refused Sodium Chloride (0.9 % Sodium Chloride Flush 3 Ml Syringe) 3 ml IVFLUSH QSHIFT [facility] Last Admin: 07/11/25 20:40 Dose: 3 ml Documented By: ANGELICA Tiotropium [place] (Tiotropium [place] 2.5 Mcg 1 Puff/2.5 Mcg Mist.Inhal) 2 puff INHALE RDAILY [facility] Last Admin: 07/11/25 07:33 Dose: 2 puff Documented By: CHRIS Venlafaxine HCl (Venlafaxine Hcl Er 37.5 Mg Cap.Er.24h) 37.5 mg PO DAILY [facility] Last Admin: 07/11/25 08:55 Dose: 37.5 mg Documented By: RENETTA Venlafaxine HCl (Venlafaxine Hcl Er 150 Mg Cap.Er.24h) 150 mg PO DAILY [facility] Last Admin: 07/11/25 08:55 Dose: 150 mg Documented By: RENETTA Zolpidem Tartrate (Zolpidem Tartrate 5 Mg Tablet) 5 mg PO BEDTIME [facility] Last Admin: 07/11/25 20:42 Dose: 5 mg Documented By: ANGELICA Labs 07/09/25 09:29 07/09/25 09:30 Labs: Laboratory Results - last 24 hr 07/11/25 16:01 Troponin I High Sens < 2.7 Microbiology Microbiology Results: Microbiology 07/09/25 09:30 Blood Culture - Preliminary Blood - Venous No growth after 48 hours. 07/09/25 09:30 Blood Culture - Preliminary Blood - Venous No growth after 48 hours. Assessment and Plan (1) Acute exacerbation of chronic obstructive pulmonary disease: Status: Acute (2) COPD (chronic obstructive pulmonary disease): Status: Inactive Plan 60-year-old gentleman history of tobacco use disorder, pulmonary nodules, moderate COPD, history of depression schizophrenia anxiety presented with acute onset of shortness of breath and diagnosed to have acute COPD exacerbation with acute hypoxic respiratory failure. Active SI 1-1 sitter SI precautions CARE team consult when medically stable Acute hypoxic respiratory failure due to acute COPD exacerbation likely in the setting of current nicotine usage RSV, COVID and influenza negative p.o. prednisone based on clinical status DuoNeb q.4 hours scheduled and as needed Cough medication/analgesics Wean oxygen as tolerated not on home O2 Sepsis due to acute COPD exacerbation/bronchitis Tachypneic, tachycardic likely due to bronchitis/COPD Continue above management/IV doxycycline 100 mg b.i.d. Tobacco use disorder as per patient quit smoking [address] on nicotine gum, counseling done. Nicotine replacement therapy ordered Major depressive illness/psychosis, history of auditory hallucinations- resume home medications -remeorn to 45mg, adjust risperdal to all bedtime and daily dose increase to 5mg. Maintain seroquel, suboxone, effexor, trazodone, ambien and klonopin CARE team eval once medically stabilized RON-cocaine and buprenorphine positive on tox screen. Addiction Medicine consulted Resumed home dose buprenorphine . DVT prophylaxis with Lovenox Full code In my clinical judgment patient requires inpatient hospitalization for management of acute on chronic SI and workup of stated ACS Care team eval can happen on monday (weekend limited resources) Attempted to reach his to give updates per req- no VM to leave a VM either This note is constructed using voice recognition software. While every effort has been made to ensure accuracy, temple meat cutter errors may have been included. Quality Stroke Does the patient have a stroke diagnosis?: No VTE Prior VTE?: No VTE Risk Level:: Medical - moderate - high VTE Device Contraindication: N/A - Device Ordered VTE Drug Contraindication: Treatment Not Indicated
[2025-07-12] MEDS: Tiotropium Bromide 2.5 mcg 1 PUFF/2.5 MCG MIST.INHAL 2 PUFF INHALE (08:21)
[2025-07-12] MEDS: Lidocaine 4 % Patch ADH..PATCH 2 PATCH TRANSDERMA (09:23)
[2025-07-12] MEDS: guaiFENesin DM 200/20/10 ML 10 ML SYRUP PO ×3 (09:24→20:52)
[2025-07-12] MEDS: Venlafaxine HCl ER 150 MG CAP.ER.24H PO (09:24)
[2025-07-12] MEDS: Venlafaxine HCl ER 37.5 MG CAP.ER.24H PO (09:25)
[2025-07-12] MEDS: 0.9 % Sodium Chloride Flush 3 ML SYRINGE IVFLUSH ×3 (09:25→20:53)
[2025-07-12] MEDS: Buprenorphine/Naloxone 4/1 mg FILM 1 FILM SUBLINGUAL (12:39)
--- NOTE | 2025-07-12 12:48 | PC.NURSE ---
given an incentive spirometer and educated on use of
[2025-07-12] MEDS: Ferrous Sulfate 324 MG TABLET.DR PO (20:52)
[2025-07-13] VITALS (7 sets, daily range): BP systolic 133–140; BP diastolic 78–93; PULSE 85–109; RESP 16–20; TEMP 36.3–37.1; O2SAT 91–97
[2025-07-13] MEDS: Albuterol/Iprat 2.5/0.5MG 3 ML AMPUL.NEB INHALE ×5 (06:34→19:21)
--- NOTE | 2025-07-13 07:31 | P.PNIM_ITS ---
Subjective Subjective Date of Service: 07/13/25 Interval History: Patient continues to be anxious Mildly dyspneic with increased towards the breathing which is likely because of slow response to steroids given ongoing smoking, cocaine Patient very anxious not to return home Once medically optimized, get care team consult Review of Systems Review of Systems: Yes all other systems are reviewed and are negative Physical Exam 2 Exam: Exam: Psych: SI active, feels anxious Vital Signs: Vital Signs: Last Vital Signs Temp 98.8 F 07/13/25 06:29 Pulse 95 07/13/25 06:29 Resp 18 07/13/25 06:29 BP 139/93 H 07/13/25 06:29 Pulse Ox 95 07/13/25 06:29 O2 Del Method Nasal Cannula 07/13/25 06:29 O2 Flow Rate 2 07/13/25 06:29 BMI result Body Mass Index 28.3 Appearance: Alert.? Oriented X3 cvs: rrr, [id number] , no murmur res: Mild bilateral wheezing noted, improved from yesterday abd: no rebound or guarding ,nt, bs present. neuro: axo3 , nonfocal. Objective Data Active Medications Acetaminophen (Acetaminophen 325 Mg Tablet) 975 mg PO Q6H [facility] Last Admin: 07/13/25 06:25 Dose: 975 mg Documented By: ANGELICA Al Hydroxide/Mg Hydroxide (Magnesium Hydrox/Alum Hydrox 30 Ml Oral.Susp) 30 ml PO Q4H PRN PRN Reason: Heartburn Albuterol Sulfate (Albuterol Sulfate 90 Mcg 8 Gm Inhaler) 2 puff INHALE Q4H PRN PRN Reason: Wheezing Albuterol/Ipratropium (Albuterol/Iprat 2.5/0.5mg 3 Ml Ampul.Neb) 3 ml INHALE Q4H PRN PRN Reason: Shortness of Breath/Wheezing Last Admin: 07/13/25 06:34 Dose: 3 ml Documented By: ANGELICA Albuterol/Ipratropium (Albuterol/Iprat 2.5/0.5mg 3 Ml Ampul.Neb) 3 ml INHALE RQ4H WHILE AWAKE [facility] Last Admin: 07/12/25 19:47 Dose: 3 ml Documented By: KATHERINE Atorvastatin Calcium (Atorvastatin Calcium 40 Mg Tablet) 40 mg PO BEDTIME [facility] Last Admin: 07/12/25 20:52 Dose: 40 mg Documented By: ANGELICA Buprenorphine/Naloxone (Buprenorphine/Naloxone 4/1 Mg Film) 1 film SUBLINGUAL DAILY@1200 [facility] Last Admin: 07/12/25 12:39 Dose: 1 film Documented By: FCO Buprenorphine/Naloxone (Buprenorphine/Naloxone 8/2 Mg Film) 1 film SUBLINGUAL BID [facility] Last Admin: 07/12/25 20:53 Dose: 1 film Documented By: ANGELICA Calcium Carbonate (Calcium Carbonate 750 Mg Tab.Chew) 750 mg PO Q4H PRN PRN Reason: Heartburn Clonazepam (Clonazepam 0.5 Mg Tablet) 0.5 mg PO TID [facility] Last Admin: 07/12/25 20:52 Dose: 0.5 mg Documented By: ANGELICA Doxycycline Monohydrate (Doxycycline Monohydrate 100 Mg Capsule) 100 mg PO Q12H [facility] Stop: 07/13/25 20:59 Last Admin: 07/12/25 20:53 Dose: 100 mg Documented By: ANGELICA Enoxaparin Sodium (Enoxaparin Sodium 40 Mg/0.4 Ml Syringe) 40 mg SUBCUT Q24H [facility] Last Admin: 07/12/25 12:38 Dose: 40 mg Documented By: FCO Ferrous Sulfate (Ferrous Sulfate 324 Mg Tablet.) 324 mg PO BEDTIME [facility] Last Admin: 07/12/25 20:52 Dose: 324 mg Documented By: ANGELICA Furosemide (Furosemide 20 Mg Tablet) 20 mg PO DAILY [facility]; Protocol Last Admin: 07/12/25 09:25 Dose: 20 mg Documented By: FCO Guaifenesin/Dextromethorphan (Guaifenesin Dm 200/20/10 Ml 10 Ml Syrup) 10 ml PO TID [facility] Last Admin: 07/12/25 20:52 Dose: 10 ml Documented By: ANGELICA Hydroxyzine HCl (Hydroxyzine Hcl 50 Mg Tablet) 50 mg PO TID [facility] Last Admin: 07/12/25 20:52 Dose: 50 mg Documented By: ANGELICA Ketorolac Tromethamine (Ketorolac Tromethamine 10 Mg Tablet) 10 mg PO Q6H PRN PRN Reason: Pain, Severe (Pain Scale 7-10) Stop: 07/16/25 15:56 Last Admin: 07/12/25 20:58 Dose: 10 mg Documented By: ANGELICA Lidocaine (Lidocaine 4 % Patch Adh..Patch) 2 patch TRANSDERMA DAILY [facility]; Protocol Last Admin: 07/12/25 09:23 Dose: 2 patch Documented By: FCO Magnesium Hydroxide (Milk Of Magnesia 30 Ml Oral.Susp) 30 ml PO DAILY PRN PRN Reason: Constipation Melatonin (Melatonin 3 Mg Tablet) 6 mg PO BEDTIME PRN PRN Reason: Insomnia Mirtazapine (Mirtazapine 15 Mg Tablet) 15 mg PO BEDTIME [facility] Last Admin: 07/12/25 20:52 Dose: 15 mg Documented By: ANGELICA Nicotine Polacrilex (Nicotine Polacrilex 2 Mg Gum) 2 mg BUCCAL Q2H PRN PRN Reason: Nicotine Cravings Omeprazole (Omeprazole 20 Mg Capsule.Dr) 20 mg PO DAILY@0630 [facility] Last Admin: 07/13/25 06:25 Dose: 20 mg Documented By: ANGELICA Ondansetron HCl (Ondansetron Hcl 4 Mg/2 Ml Vial) 4 mg IVPUSH Q8H PRN PRN Reason: Nausea and Vomiting Prednisone (Prednisone 20 Mg Tablet) 40 mg PO DAILY [facility] Stop: 07/15/25 08:59 Last Admin: 07/12/25 09:25 Dose: 40 mg Documented By: FCO Quetiapine Fumarate (Quetiapine Fumarate 100 Mg Tablet) 100 mg PO BID@0900,1700 [facility] Last Admin: 07/12/25 17:01 Dose: 100 mg Documented By: FCO Quetiapine Fumarate (Quetiapine Fumarate 400 Mg Tablet) 400 mg PO BEDTIME [facility] Last Admin: 07/12/25 20:53 Dose: 400 mg Documented By: ANGELICA Risperidone (Risperidone 1 Mg Tablet) 1 mg PO DAILY [facility] Last Admin: 07/12/25 09:24 Dose: 1 mg Documented By: FCO Risperidone (Risperidone 3 Mg Tablet) 3 mg PO BEDTIME [facility] Last Admin: 07/12/25 20:53 Dose: 3 mg Documented By: ANGELICA Senna/Docusate Sodium (Sennosides/Docusate Sodium Tablet) 2 tab PO BEDTIME [facility] Last Admin: 07/12/25 21:01 Dose: Not Given Documented By: ANGELICA Non-Admin Reason: Patient Refused Sodium Chloride (0.9 % Sodium Chloride Flush 3 Ml Syringe) 3 ml IVFLUSH QSHIFT [facility] Last Admin: 07/12/25 20:53 Dose: 3 ml Documented By: ANGELICA Tiotropium [place] (Tiotropium [place] 2.5 Mcg 1 Puff/2.5 Mcg Mist.Inhal) 2 puff INHALE RDAILY [facility] Last Admin: 07/12/25 08:21 Dose: 2 puff Documented By: ELIZABETH Venlafaxine HCl (Venlafaxine Hcl Er 37.5 Mg Cap.Er.24h) 37.5 mg PO DAILY [facility] Last Admin: 07/12/25 09:25 Dose: 37.5 mg Documented By: FCO Venlafaxine HCl (Venlafaxine Hcl Er 150 Mg Cap.Er.24h) 150 mg PO DAILY [facility] Last Admin: 07/12/25 09:24 Dose: 150 mg Documented By: FCO Zolpidem Tartrate (Zolpidem Tartrate 5 Mg Tablet) 5 mg PO BEDTIME [facility] Last Admin: 07/12/25 20:53 Dose: 5 mg Documented By: ANGELICA Labs 07/09/25 09:29 07/09/25 09:30 Assessment and Plan (1) Acute exacerbation of chronic obstructive pulmonary disease: Status: Acute (2) COPD (chronic obstructive pulmonary disease): Status: Inactive Plan 60-year-old gentleman history of tobacco use disorder, pulmonary nodules, moderate COPD, history of depression schizophrenia anxiety presented with acute onset of shortness of breath and diagnosed to have acute COPD exacerbation with acute hypoxic respiratory failure. Active SI 1-1 sitter SI precautions CARE team consult when medically stable Acute hypoxic respiratory failure due to acute COPD exacerbation likely in the setting of current nicotine usage RSV, COVID and influenza negative p.o. prednisone based on clinical status likely needs a prolonged taper DuoNeb q.4 hours scheduled and as needed Cough medication/analgesics Wean oxygen as tolerated not on home O2 Sepsis due to acute COPD exacerbation/bronchitis Tachypneic, tachycardic likely due to bronchitis/COPD Continue above management/IV doxycycline 100 mg b.i.d. Tobacco use disorder as per patient quit smoking [address] on nicotine gum, counseling done. Nicotine replacement therapy ordered Major depressive illness/psychosis, history of auditory hallucinations- resume home medications -remeorn to 45mg, adjust risperdal to all bedtime and daily dose increase to 5mg. Maintain seroquel, suboxone, effexor, trazodone, ambien and klonopin CARE team eval once medically stabilized RON-cocaine and buprenorphine positive on tox screen. Addiction Medicine consulted Resumed home dose buprenorphine . DVT prophylaxis with Lovenox Full code In my clinical judgment patient requires inpatient hospitalization for management of acute on chronic SI . Once medically optimized, we will get care team consult Attempted to reach his to give updates per req- no VM to leave a VM either This note is constructed using voice recognition software. While every effort has been made to ensure accuracy, purification operator errors may have been included. Quality Stroke Does the patient have a stroke diagnosis?: No VTE Prior VTE?: No VTE Risk Level:: Medical - moderate - high VTE Device Contraindication: N/A - Device Ordered VTE Drug Contraindication: Treatment Not Indicated
[2025-07-13] MEDS: Tiotropium Bromide 2.5 mcg 1 PUFF/2.5 MCG MIST.INHAL 2 PUFF INHALE (08:04)
[2025-07-13] MEDS: Lidocaine 4 % Patch ADH..PATCH 2 PATCH TRANSDERMA (09:34)
[2025-07-13] MEDS: guaiFENesin DM 200/20/10 ML 10 ML SYRUP PO ×3 (09:35→20:12)
[2025-07-13] MEDS: Venlafaxine HCl ER 37.5 MG CAP.ER.24H PO (09:35)
[2025-07-13] MEDS: Venlafaxine HCl ER 150 MG CAP.ER.24H PO (09:35)
[2025-07-13] MEDS: 0.9 % Sodium Chloride Flush 3 ML SYRINGE IVFLUSH ×3 (09:36→20:12)
--- NOTE | 2025-07-13 10:36 | PC.NURSE ---
Pt educated on use of incentive spiromter
[2025-07-13] MEDS: Buprenorphine/Naloxone 4/1 mg FILM 1 FILM SUBLINGUAL (12:02)
[2025-07-13] MEDS: Nicotine 21 MG PATCH.TD24 TRANSDERMA (12:02)
[2025-07-13] MEDS: Ferrous Sulfate 324 MG TABLET.DR PO (20:14)
[2025-07-14] VITALS (9 sets, daily range): BP systolic 141–154; BP diastolic 74–90; PULSE 88–111; RESP 15–19; TEMP 36.6–37.3; O2SAT 91–95
[2025-07-14] MEDS: Tiotropium Bromide 2.5 mcg 1 PUFF/2.5 MCG MIST.INHAL 2 PUFF INHALE (07:55)
[2025-07-14] MEDS: Albuterol/Iprat 2.5/0.5MG 3 ML AMPUL.NEB INHALE ×4 (07:57→19:57)
[2025-07-14] MEDS: Lidocaine 4 % Patch ADH..PATCH 2 PATCH TRANSDERMA (09:04)
[2025-07-14] MEDS: Nicotine 21 MG PATCH.TD24 TRANSDERMA (09:05)
[2025-07-14] MEDS: Venlafaxine HCl ER 150 MG CAP.ER.24H PO (09:06)
[2025-07-14] MEDS: guaiFENesin DM 200/20/10 ML 10 ML SYRUP PO ×3 (09:06→20:47)
[2025-07-14] MEDS: Venlafaxine HCl ER 37.5 MG CAP.ER.24H PO (09:07)
--- NOTE | 2025-07-14 11:16 | P.PNIM_ITS ---
Subjective Subjective Date of Service: 07/14/25 Interval History: Multiple complaints this morning, including SOB, cough, pleuritic chest pain with deep inspiration and cough Seen and evaluated where he is resting comfortably in bed Continues to require 1 L supplemental oxygen Continues to endorse SI Review of Systems Review of Systems: Yes all other systems are reviewed and are negative Physical Exam 2 Exam: Exam: General: AOx3, no acute distress Resp: Mild diffuse expiratory wheezing, no acute respiratory distress. Speaking in full sentences, no labored breathing CVS: S1, S2, RRR GI: +BS, NT, no distention Skin: Warm, dry Neuro: Cranial nerves II-XII grossly intact bilaterally. Motor grossly intact bilaterally Extremities: No edema Psych: Flat affect Vital Signs: Vital Signs: Last Vital Signs Temp 99.0 F 07/14/25 07:12 Pulse 101 H 07/14/25 07:57 Resp 18 07/14/25 07:57 BP 150/90 H 07/14/25 07:12 Pulse Ox 92 07/14/25 07:12 O2 Del Method Nasal Cannula 07/14/25 07:12 O2 Flow Rate 1.0 07/14/25 07:12 BMI result Body Mass Index 28.3 Objective Data Active Medications Acetaminophen (Acetaminophen 325 Mg Tablet) 975 mg PO Q6H [facility] Last Admin: 07/14/25 06:13 Dose: 975 mg Documented By: MELISSA Al Hydroxide/Mg Hydroxide (Magnesium Hydrox/Alum Hydrox 30 Ml Oral.Susp) 30 ml PO Q4H PRN PRN Reason: Heartburn Albuterol Sulfate (Albuterol Sulfate 90 Mcg 8 Gm Inhaler) 2 puff INHALE Q4H PRN PRN Reason: Wheezing Albuterol/Ipratropium (Albuterol/Iprat 2.5/0.5mg 3 Ml Ampul.Neb) 3 ml INHALE Q4H PRN PRN Reason: Shortness of Breath/Wheezing Last Admin: 07/13/25 06:34 Dose: 3 ml Documented By: ANGELICA Albuterol/Ipratropium (Albuterol/Iprat 2.5/0.5mg 3 Ml Ampul.Neb) 3 ml INHALE RQ4H WHILE AWAKE [facility] Last Admin: 07/14/25 07:57 Dose: 3 ml Documented By: ELIZABETH Atorvastatin Calcium (Atorvastatin Calcium 40 Mg Tablet) 40 mg PO BEDTIME [facility] Last Admin: 07/13/25 20:14 Dose: 40 mg Documented By: ANGELICA Buprenorphine/Naloxone (Buprenorphine/Naloxone 4/1 Mg Film) 1 film SUBLINGUAL DAILY@1200 [facility] Last Admin: 07/13/25 12:02 Dose: 1 film Documented By: FCO Buprenorphine/Naloxone (Buprenorphine/Naloxone 8/2 Mg Film) 1 film SUBLINGUAL BID [facility] Last Admin: 07/14/25 09:07 Dose: 1 film Documented By: MELISSA Calcium Carbonate (Calcium Carbonate 750 Mg Tab.Chew) 750 mg PO Q4H PRN PRN Reason: Heartburn Clonazepam (Clonazepam 0.5 Mg Tablet) 0.5 mg PO TID [facility] Last Admin: 07/14/25 09:07 Dose: 0.5 mg Documented By: MELISSA Enoxaparin Sodium (Enoxaparin Sodium 40 Mg/0.4 Ml Syringe) 40 mg SUBCUT Q24H [facility] Last Admin: 07/13/25 12:03 Dose: 40 mg Documented By: FCO Ferrous Sulfate (Ferrous Sulfate 324 Mg Tablet.Dr) 324 mg PO BEDTIME [facility] Last Admin: 07/13/25 20:14 Dose: 324 mg Documented By: ANGELICA Furosemide (Furosemide 20 Mg Tablet) 20 mg PO DAILY [facility]; Protocol Last Admin: 07/14/25 09:07 Dose: 20 mg Documented By: MELISSA Guaifenesin/Dextromethorphan (Guaifenesin Dm 200/20/10 Ml 10 Ml Syrup) 10 ml PO TID [facility] Last Admin: 07/14/25 09:06 Dose: 10 ml Documented By: MELISSA Hydroxyzine HCl (Hydroxyzine Hcl 50 Mg Tablet) 50 mg PO TID [facility] Last Admin: 07/14/25 09:06 Dose: 50 mg Documented By: MELISSA Ketorolac Tromethamine (Ketorolac Tromethamine 10 Mg Tablet) 10 mg PO Q6H PRN PRN Reason: Pain, Severe (Pain Scale 7-10) Stop: 07/16/25 15:56 Last Admin: 07/13/25 20:13 Dose: 10 mg Documented By: ANGELICA Lidocaine (Lidocaine 4 % Patch Adh..Patch) 2 patch TRANSDERMA DAILY [facility]; Protocol Last Admin: 07/14/25 09:04 Dose: 2 patch Documented By: MELISSA Magnesium Hydroxide (Milk Of Magnesia 30 Ml Oral.Susp) 30 ml PO DAILY PRN PRN Reason: Constipation Melatonin (Melatonin 3 Mg Tablet) 6 mg PO BEDTIME PRN PRN Reason: Insomnia Mirtazapine (Mirtazapine 15 Mg Tablet) 15 mg PO BEDTIME [facility] Last Admin: 07/13/25 20:14 Dose: 15 mg Documented By: ANGELICA Nicotine (Nicotine 21 Mg Patch.Td24) 21 mg TRANSDERMA DAILY [facility] Last Admin: 07/14/25 09:05 Dose: 21 mg Documented By: MELISSA Nicotine Polacrilex (Nicotine Polacrilex 2 Mg Gum) 2 mg BUCCAL Q2H PRN PRN Reason: Nicotine Cravings Omeprazole (Omeprazole 20 Mg Capsule.Dr) 20 mg PO DAILY@0630 [facility] Last Admin: 07/14/25 06:13 Dose: 20 mg Documented By: MELISSA Ondansetron HCl (Ondansetron Hcl 4 Mg/2 Ml Vial) 4 mg IVPUSH Q8H PRN PRN Reason: Nausea and Vomiting Prednisone (Prednisone 20 Mg Tablet) 40 mg PO DAILY [facility] Stop: 07/15/25 08:59 Last Admin: 07/14/25 09:07 Dose: 40 mg Documented By: MELISSA Quetiapine Fumarate (Quetiapine Fumarate 100 Mg Tablet) 100 mg PO BID@0900,1700 [facility] Last Admin: 07/14/25 09:06 Dose: 100 mg Documented By: MELISSA Quetiapine Fumarate (Quetiapine Fumarate 400 Mg Tablet) 400 mg PO BEDTIME [facility] Last Admin: 07/13/25 20:14 Dose: 400 mg Documented By: ANGELICA Risperidone (Risperidone 1 Mg Tablet) 1 mg PO DAILY [facility] Last Admin: 07/14/25 09:07 Dose: 1 mg Documented By: MELISSA Risperidone (Risperidone 3 Mg Tablet) 3 mg PO BEDTIME [facility] Last Admin: 07/13/25 20:13 Dose: 3 mg Documented By: ANGELICA Senna/Docusate Sodium (Sennosides/Docusate Sodium Tablet) 2 tab PO BEDTIME [facility] Last Admin: 07/13/25 20:17 Dose: Not Given Documented By: ANGELICA Non-Admin Reason: Patient Refused Sodium Chloride (0.9 % Sodium Chloride Flush 3 Ml Syringe) 3 ml IVFLUSH QSHIFT [facility] Last Admin: 07/14/25 09:10 Dose: Not Given Documented By: MELISSA Non-Admin Reason: Previously Administered Tiotropium Grape[place] (Tiotropium [place] 2.5 Mcg 1 Puff/2.5 Mcg Mist.Inhal) 2 puff INHALE RDAILY [facility] Last Admin: 07/14/25 07:55 Dose: 2 puff Documented By: ELIZABETH Venlafaxine HCl (Venlafaxine Hcl Er 37.5 Mg Cap.Er.24h) 37.5 mg PO DAILY [facility] Last Admin: 07/14/25 09:07 Dose: 37.5 mg Documented By: MELISSA Venlafaxine HCl (Venlafaxine Hcl Er 150 Mg Cap.Er.24h) 150 mg PO DAILY [facility] Last Admin: 07/14/25 09:06 Dose: 150 mg Documented By: MELISSA Zolpidem Tartrate (Zolpidem Tartrate 5 Mg Tablet) 5 mg PO BEDTIME [facility] Last Admin: 07/13/25 20:13 Dose: 5 mg Documented By: ANGELICA Labs 07/09/25 09:29 07/09/25 09:30 Assessment and Plan (1) Acute exacerbation of chronic obstructive pulmonary disease: Status: Acute Plan 60-year-old gentleman history of tobacco use disorder, pulmonary nodules, moderate COPD, history of depression schizophrenia anxiety presented with acute onset of shortness of breath and diagnosed to have acute COPD exacerbation with acute hypoxic respiratory failure. Acute hypoxic respiratory failure due to acute COPD exacerbation likely in the setting of current nicotine usage RSV, COVID and influenza negative p.o. prednisone based on clinical status likely needs a prolonged taper DuoNeb q.4 hours scheduled and as needed Cough medication/analgesics Wean oxygen as tolerated not on home O2 Will need O2 prn on psych floor; will then need home O2 eval at time of discharge on psych floor Active SI 1-1 sitter SI precautions CARE team consult as pt is now medically cleared Sepsis due to acute COPD exacerbation/bronchitis Tachypneic, tachycardic likely due to bronchitis/COPD Continue above management/IV doxycycline 100 mg b.i.d. Tobacco use disorder as per patient quit smoking [address] on nicotine gum, counseling done. Nicotine replacement therapy ordered Major depressive illness/psychosis, history of auditory hallucinations- resume home medications -remeorn to 45mg, adjust risperdal to all bedtime and daily dose increase to 5mg. Maintain seroquel, suboxone, effexor, trazodone, ambien and klonopin RON-cocaine and buprenorphine positive on tox screen. Addiction Medicine consulted Resumed home dose buprenorphine . DVT prophylaxis with Lovenox Full code Pt is now medically cleared for discharge to psych facility. Will get care team consult. Quality Stroke Does the patient have a stroke diagnosis?: No VTE Prior VTE?: No VTE Risk Level:: Medical - moderate - high VTE Device Contraindication: N/A - Device Ordered VTE Drug Contraindication: Treatment Not Indicated
[2025-07-14] MEDS: Buprenorphine/Naloxone 4/1 mg FILM 1 FILM SUBLINGUAL (11:48)
[2025-07-14] MEDS: 0.9 % Sodium Chloride Flush 3 ML SYRINGE IVFLUSH ×2 (17:48→20:51)
[2025-07-14] MEDS: Ferrous Sulfate 324 MG TABLET.DR PO (20:47)
[2025-07-15] VITALS (7 sets, daily range): BP systolic 110–147; BP diastolic 69–86; PULSE 94–108; RESP 16–26; TEMP 36.7–37; O2SAT 93–97
[2025-07-15] MEDS: Albuterol/Iprat 2.5/0.5MG 3 ML AMPUL.NEB INHALE ×3 (05:00→11:59)
[2025-07-15] MEDS: Tiotropium Bromide 2.5 mcg 1 PUFF/2.5 MCG MIST.INHAL 2 PUFF INHALE (07:56)
[2025-07-15] MEDS: Venlafaxine HCl ER 150 MG CAP.ER.24H PO (09:15)
[2025-07-15] MEDS: guaiFENesin DM 200/20/10 ML 10 ML SYRUP PO ×2 (09:15→14:40)
[2025-07-15] MEDS: Venlafaxine HCl ER 37.5 MG CAP.ER.24H PO (09:15)
[2025-07-15] MEDS: Nicotine 21 MG PATCH.TD24 TRANSDERMA (09:15)
[2025-07-15] MEDS: Lidocaine 4 % Patch ADH..PATCH 2 PATCH TRANSDERMA (09:23)
[2025-07-15] MEDS: 0.9 % Sodium Chloride Flush 3 ML SYRINGE IVFLUSH (09:24)
[2025-07-15] MEDS: Buprenorphine/Naloxone 4/1 mg FILM 1 FILM SUBLINGUAL (12:15)
--- NOTE | 2025-07-15 14:03 | PC.NURSE ---
14:03 - Report given to Roger from over the phone.
--- NOTE | 2025-07-15 14:03 | PM.DS ---
DS: Providers Provider Date of admission: 07/09/25 11:39 Date of discharge: 07/15/25 Primary care physician: Vince Doran MD Consults: 07/09/25 19:01 Addiction Medicine Provider Routine Consulting Provider: Addiction Covering Reason for consultation: RON, cocaine + 07/11/25 15:47 Consult for Sitter Routine Reason for consultation: active SI 07/14/25 11:26 Inpt CARE Team Crisis Consult Routine Comment: Reason for consultation: Pt now medically cleared for psych placement DS: Diagnosis Discharge Diagnosis (1) Acute exacerbation of chronic obstructive pulmonary disease: Status: Acute DS: Summary Hospital Course Hospital Course: From admission HPI: Date of Service: 07/09/25 Chief Complaint: sob 60-year-old gentleman Kyrgyz-speaking 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 Patient also complaining of subjective fevers. Patient use home inhalers with no improvement in symptoms. Patient lives alone denies sick contacts, no recent history of travel, denies allergy symptoms. EMS found patient sitting with finger oximetry in 80s % patient treated with DuoNeb and Solu-Medrol in route by EMS. On arrival to ED patient was noted to be in mild respiratory distress with O2 sat 89% with audible wheeze, heart rate 114, respiratory rate 22, patient received another dose of Solu Medrol, updraft treatment, magnesium and doxycycline in emergency room. At present patient continued to have chest pain with coughing shortness of breath and shortness of breath. Hospital course: Pt was admitted to the hospital for acute hypoxic respiratory failure in the setting of COPD exacerbation. Additional workup was negative for infectious etiologies and empiric antibiotics were stopped. For COPD exacerbation pt was treated with supplemental oxygen, IV steroids, and bronchodilator therapy. Steroids were eventually weaned to prednisone p.o. which pt completed last dose today. Patient's breathing improved with treatment, though he continues to require supplemental oxygen, and will likely qualify for home oxygen. is at bedside and she reports pt with chronic SOB, but pt has never been formally evaluated for home O2. Stopped smoking a few weeks ago. However, we can not complete home O2 eval at this time as the evaluation is only good for up to 48 hours and pt will need inpatient psychiatric stabilization prior to discharge. Pt continues to report auditory hallucinations telling him to harm himself, and has needed a 1-1 sitter during hospital stay. He is now medically cleared for discharge and will be transferred to [address] for treatment there. Pt will be sent on 2L supplemental O2 prn, and should get a home O2 evaluation prior to discharge. He also can have Duonebs prn on the unit, and continue all of his other home medications. Additional details concerning hospital stay as indicated below. Acute hypoxic respiratory failure due to acute COPD exacerbation likely in the setting of current nicotine usage RSV, COVID and influenza negative; CXR negative for consolidation; empiric antiobiotics stopped IV steroids convered to p.o. prednisone, last dose today 07/15 DuoNeb q.4 hours as needed while on Cough medication/analgesics prn Wean oxygen as tolerated not on Will need O2 prn on psych floor; will then need home O2 eval at time of discharge on psych floor Active SI 1-1 sitter SI precautions CARE team consulted, Section [address] Tobacco use disorder as per patient quit smoking [address] on nicotine gum, counseling done. Nicotine replacement therapy ordered Major depressive illness/psychosis, history of auditory hallucinations- resume home medications -remeorn to 45mg, adjust risperdal to all bedtime and daily dose increase to 5mg. Maintain seroquel, suboxone, effexor, trazodone, ambien and klonopin RON-cocaine and buprenorphine positive on tox screen. Addiction Medicine consulted Resumed home dose buprenorphine . DVT prophylaxis with Lovenox Full code Time Attestation Discharge Coordination Time (in mins): 35 Quality: Safe Use of Opioids Does Pt have an Active Cancer Diagnosis on the Problem List?: No Quality: Stroke Does the patient have a stroke diagnosis?: No Physical Exam Exam: Exam: General: AOx3, no acute distress Resp: Lungs CTA bilaterally though diminished. No wheezing, rhonchi, or rales noted. Speaking in full sentences, no labored breathing CVS: S1, S2, RRR GI: +BS, NT, no distention Skin: Warm, dry Neuro: Cranial nerves II-XII grossly intact bilaterally. Motor grossly intact bilaterally Extremities: No edema Psych: Flat affect Vital Signs: Vital Signs: Last Vital Signs Temp 98.6 F 07/15/25 08:00 Pulse 97 07/15/25 12:00 Resp 20 07/15/25 12:00 BP 122/74 07/15/25 09:15 Pulse Ox 93 07/15/25 08:00 O2 Del Method Nasal Cannula 07/15/25 08:00 O2 Flow Rate 2 07/15/25 08:00 BMI result Body Mass Index 28.3 Discharge Plan Discharge Anticipated Discharge Date/Time: 07/15/25 13:59 Patient Disposition: Xfer Psychiatric Hosp Discharge Diagnosis: Acute hypoxic respiratory failure in the setting of COPD exacerbation Referrals: Vince Doran MD [Primary Care Provider, Medical] - 1 Week Discharge Medications: Continued Spiriva Respimat 2.5 mcg/actuation mist 2 puff INHALATION DAILY Qty: 4 0RF albuterol sulfate [Ventolin HFA] 90 mcg/actuation HFA aerosol inhaler 2 puff INHALATION Q4-6H PRN (Reason: Wheezing) 30 Days Qty: 1 6RF acetaminophen 500 mg tablet 500 mg PO Q6H PRN (Reason: Pain) sildenafil [Viagra] 100 mg tablet 100 mg PO DAILY PRN (Reason: Erectile Dysfunction) pantoprazole 40 mg tablet,delayed release (DR/EC) 40 mg PO DAILY@0630 mirtazapine 15 mg tablet 15 mg PO BEDTIME venlafaxine 37.5 mg capsule,extended release 24hr 37.5 mg PO DAILY quetiapine 100 mg tablet 100 mg PO BID@0900,1700 risperidone 1 mg tablet 1 mg PO DAILY quetiapine 400 mg tablet 400 mg PO BEDTIME clonazepam 0.5 mg tablet 0.5 mg PO TID furosemide 20 mg tablet 20 mg PO DAILY buprenorphine-naloxone [Suboxone] 8-2 mg film 1 film sublingual BID venlafaxine 150 mg capsule,extended release 24hr 150 mg PO DAILY Rx Instructions: TOTAL DAILY DOSE 187.5 MG DAILY atorvastatin 40 mg tablet 40 mg PO BEDTIME sennosides-docusate sodium [Stimulant Laxative Plus] 8.6-50 mg tablet 2 tab PO BEDTIME zolpidem 5 mg tablet 5 mg PO BEDTIME ferrous sulfate 325 mg (65 mg iron) tablet,delayed release (DR/EC) 325 mg PO BEDTIME buprenorphine-naloxone [Suboxone] 4-1 mg film 1 film sublingual DAILY@1200 hydroxyzine HCl 25 mg tablet 25 mg PO BID risperidone 3 mg tablet 3 mg PO BEDTIME Discharge Orders: Discharge Order (Routine); Ordered 07/15/25 Ordered By: Debbie Perez Activity on Discharge: As tolerated Stand Alone Forms: Patient Portal Discharge page Print Language: Kyrgyz
--- NOTE | 2025-07-15 14:47 | HO.SKINPHOTO ---
Location: Left Cheek Scabbed area appears under oxygen tubing. Area cleaned and pat dry. Foam dressing placed on bilateral cheeks under nasal cannual tubing.
--- NOTE | 2025-07-15 14:54 | MHC.CM.PN ---
pt being dcd to psych hospitial
--- NOTE | 2025-07-15 15:17 | PC.NURSE ---
neurosurgery physician, Hina, utilized to review discharge instructions and discharge plan to inpatient psych. Patient was in agreement with discharge plan and no further questions.
== END 2025-07-15 14:58 | DRG 720 ==
LOC: HO.ED 11:34 → HO.EDOVER 11:40 → HO.S3 14:11
PROVIDERS: Hospitalist; Admitting Provider Student in an Organized Health Care Education/Training Program; Emergency Provider Emergency Medicine; PCP Internal Medicine; Visit Provider Student in an Organized Health Care Education/Training Program
DX: A41.9 Sepsis, unspecified organism (principal); J96.01 Acute respiratory failure with hypoxia; F11.20 Opioid dependence, uncomplicated; F17.210 Nicotine dependence, cigarettes, uncomplicated; Z71.6 Tobacco abuse counseling; R45.851 Suicidal ideations; F10.10 Alcohol abuse, uncomplicated; J43.9 Emphysema, unspecified; Z20.822 Contact with and (suspected) exposure to COVID-19; Z79.899 Other long term (current) drug therapy
CPT/HCPCS: 36415; 71045; 80048; 80076; 80307; 81001; 82803; 83605; 84484; 85025; 87040; 87637; 93005; 94640; 97162; 97530; 99285; J0131; J1271; J1650; J2405; J2919; J3475; J7120; S9485

== ENCOUNTER → 2025-07-09 08:56 | Outpatient (BNV) | payer MEDICAID, SELFPAY | PROVIDERS: Admitting Provider Student in an Organized Health Care Education/Training Program; Emergency Provider Emergency Medicine; Visit Provider Internal Medicine Cardiovascular Disease | DX: I45.10 Unspecified right bundle-branch block (principal); R00.0 Tachycardia, unspecified | CPT/HCPCS: 93010 ==

== ENCOUNTER → 2025-07-09 08:56 | Outpatient (BNV) | payer MEDICAID, SELFPAY | PROVIDERS: Emergency Provider Emergency Medicine; Visit Provider Radiology Diagnostic Radiology | DX: R06.02 Shortness of breath (principal) | CPT/HCPCS: 71045 ==

== ENCOUNTER 2025-07-09 11:39 | Outpatient (BNV) | payer MEDICAID, SELFPAY | END 2025-07-11 15:48 | PROVIDERS: Admitting Provider Student in an Organized Health Care Education/Training Program; Emergency Provider Emergency Medicine; PCP Internal Medicine; Visit Provider Internal Medicine Cardiovascular Disease | DX: I45.10 Unspecified right bundle-branch block (principal); R00.0 Tachycardia, unspecified | CPT/HCPCS: 93010 ==

== ENCOUNTER → 2025-07-09 11:39 | Outpatient (BNV) | payer MEDICAID, SELFPAY | PROVIDERS: Admitting Provider Student in an Organized Health Care Education/Training Program; Emergency Provider Emergency Medicine; Visit Provider Hospitalist | DX: J44.1 Chronic obstructive pulmonary disease with (acute) exacerbation (principal) | CPT/HCPCS: 99223; 99233 ==

== ENCOUNTER → 2025-07-15 14:34 | Outpatient (BNV) | payer MEDICAID, SELFPAY | PROVIDERS: Admitting Provider Registered Nurse; Visit Provider Internal Medicine Pulmonary Disease | DX: J96.01 Acute respiratory failure with hypoxia (principal); J44.9 Chronic obstructive pulmonary disease, unspecified; J81.1 Chronic pulmonary edema | CPT/HCPCS: 99223 ==

== ENCOUNTER → 2025-07-15 14:34 | Outpatient (BNV) | payer OTHER, SELFPAY | PROVIDERS: Admitting Provider Registered Nurse; Visit Provider Psychiatry & Neurology Psychiatry | DX: F33.3 Major depressive disorder, recurrent, severe with psychotic symptoms (principal); J96.01 Acute respiratory failure with hypoxia; J44.9 Chronic obstructive pulmonary disease, unspecified; J81.1 Chronic pulmonary edema | CPT/HCPCS: 99231 ==

== ENCOUNTER → 2025-07-15 14:34 | Outpatient (BNV) | payer OTHER, SELFPAY | PROVIDERS: Admitting Provider Registered Nurse; Visit Provider Psychiatry & Neurology Psychiatry | DX: F32.3 Major depressive disorder, single episode, severe with psychotic features (principal); J44.1 Chronic obstructive pulmonary disease with (acute) exacerbation; F14.10 Cocaine abuse, uncomplicated; R91.8 Other nonspecific abnormal finding of lung field; J96.01 Acute respiratory failure with hypoxia | CPT/HCPCS: 90792 ==

== ENCOUNTER → 2025-07-15 14:34 | Outpatient (BNV) | payer MEDICAID, SELFPAY | PROVIDERS: Admitting Provider Registered Nurse; Visit Provider Nurse Practitioner Family | DX: J44.1 Chronic obstructive pulmonary disease with (acute) exacerbation (principal) | CPT/HCPCS: 99221 ==